=== PATIENT | male | born 1955 | race African-American/Black ===

== ENCOUNTER 2024-10-17 08:44 | Inpatient (IN) | payer MEDICARE, OTHER, SELFPAY ==
[2024-10-17] VITALS (91 sets, daily range): BP systolic 63–129; BP diastolic 48–77; PULSE 55–163; RESP 5–37; TEMP 32.4–36.8; O2SAT 94–100; BMI 21.4
--- NOTE | ~2024-10-17 | XR_ITS ---
Portable chest x-ray Comparison: 11/10/2024 Clinical History: Intubation Findings: Endotracheal tube, NG tube, and right-sided PICC line are in place. Lungs are clear, witho ut focal consolidation or pleural effusion. Cardiomediastinal silhouette is stable. Bones and soft t issues are unremarkable. Impression: Clear lungs. Support tubes, as above. Reviewed, dictated and finalized at location M. Impression: Clear lungs. Support tubes, as above.
--- NOTE | ~2024-10-17 | XR_ITS ---
Upright portable view of the abdomen Clinical history: NG tube placement Findings: NG tube in satisfactory position. Dilated small bowel loops are suspicious for small bowel obstruction. No abnormal mass lesion or calcification is seen. Osseous structures are intact. Impression: NG tube in satisfactory position. Probable small bowel obstruction. Reviewed, dictated and finalized at [facility]. Impression: NG tube in satisfactory position. Probable small bowel obstruction.
--- NOTE | ~2024-10-17 | CT_ITS ---
CT chest abdomen pelvis wo con Ordering provider: Hussein Newman MD History: . distention . Comparison: None. Technique: CT chest without IV contrast. CT abdomen and pelvis without oral and IV contrast. Radiatio n reduction technique utilized.The dose-length product was 673.12 mGy-cm. FINDINGS: The study is limited due to lack of IV contrast. CHEST: --VISUALIZED THORACIC INLET: Normal as visualized. Endotracheal tube is seen. Right central line with the tip in the right atrium. Nasogastric tube exte nding to the stomach. --MEDIASTINUM: Aorta/coronary arteries: Mild atheromatous disease. Heart/other: The heart is not enlarged. Lymph nodes: No mediastinal or hilar adenopathy. Small prevascular lymph nodes are noted --LUNGS: No pulmonary nodules or masses.Right pleural effusion with adjacent atelectasis versus pneum onia. No pneumothorax. --MUSCULOSKELETAL: Soft tissues: The superficial soft tissues are normal. Bones: Age appropriate degenerative changes of the spine. ABDOMEN/PELVIS: --MUSCULOSKELETAL: Bones: Age appropriate degenerative changes of the spine. Bilateral sacroiliitis. Bilateral hip osteo arthritic changes. Superficial soft tissues: Postoperative changes in the anterior abdominal wall midline. The superfici al soft tissues are normal. --UPPER ABDOMINAL ORGANS: Liver: Normal. Gallbladder: Cholelithiasis. Thickened wall of the gallbladder is seen which may indicate cholecystit is. Clinical correlation advised. Spleen: Normal. Stomach/duodenum: Slightly dilated second and third parts of the duodenum. Pancreas: Slightly atrophic Adrenals: Normal. Kidneys: Right renal cysts noted measuring 2.7 cm in the lower pole and 1.7 cm in the upper pole. Oth er smaller cysts are seen in the midpole.. --PELVIC ORGANS: The bladder shows Michelle's catheter. Slightly dense material is seen in the bladder w hich may be contrast or blood. Clinical correlation advised. No bladder stones. --BOWEL AND MESENTERY: Colon: No evidence of diverticulitis. Rectal tube is noted. Appendix is not demonstrated. Small Bowel: Slightly dilated small bowel loops seen in the left upper abdomen otherwise,. No obstruc tion. Peritoneum/mesentery: free air is seen anterior to the liver. Minimal fluid also seen lateral to the liver. Significant fluid is seen in the pelvis. Clinical correlation advised. Left abdominal drainage catheter is noted in the pelvis No mesenteric lymphadenopathy. --RETROPERITONEUM: Mild atheromatous disease of the abdominal aorta. No retroperitoneal lymphadenop athy. IMPRESSION: CHEST: 1. Right basilar atelectasis versus pneumonia with pleural effusion. 2. No other acute cardiopulmonary pathology. ABDOMEN/PELVIS: 1. Free air is seen anteriorly around the liver with minimal fluid. 2. Significant ascites in the pelvis. Drainage tube is seen in the left side of the pelvis. 3. Cholelithiasis with thickened wall of the gallbladder. Evaluation for cholecystitis advised. 4. Slightly dilated small bowel loops in the left upper abdomen which may indicate ileus follow-up a dvised. 5. Right renal cysts. Reviewed, dictated and finalized at location A. IMPRESSION: CHEST: 1. Right basilar atelectasis versus pneumonia with pleural effusion. 2. No other acute cardiopulmonary pathology. ABDOMEN/PELVIS: 1. Free air is seen anteriorly around the liver with minimal fluid. 2. Significant ascites in the pelvis. Drainage tube is seen in the left side o f the pelvis. 3. Cholelithiasis with thickened wall of the gallbladder. Evaluation for paul cystitis advised. 4. Slightly dilated small bowel loops in the left upper abdomen which may aquiles emma ileus follow-up advised. 5. Right renal cysts.
--- NOTE | ~2024-10-17 | XR_ITS ---
Exam: Abdomen 1V HISTORY: NG insertion COMPARISON: None. TECHNIQUE: Supine images of the lower chest and upper abdomen FINDINGS: Nasogastric tube extends into the left upper quadrant, presumably within the stomach. IMPRESSION: Nasogastric tube in good position and ready for immediate use. Reviewed, dictated and finalized at location A.
--- NOTE | ~2024-10-17 | CT_ITS ---
EXAMINATION: CT abdomen pelvis w con DATE: 11/26/2024 09:17 INDICATION: Reassess right intra-abdominal hematoma post drain placement TECHNIQUE: Computed tomography (CT) of the abdomen and pelvis was performed with 100 mL Omnipaque-350 intravenous contrast. Automated exposure control and iterative reconstruction technique were employe d. The dose-length product was 486.96 mGy-cm. COMPARISON: 11/19/2024 FINDINGS: Small posterior layering right pleural effusion with dependent atelectasis in the right lower lobe. C alcified right lower lobe nodule along with calcified right hilar lymph nodes consistent with old gra nulomatous disease. Left lung base clear. Heart size is normal. Atherosclerotic coronary artery calci fication. Aortic valve calcific location. No pericardial effusion. Again seen are postoperative her es with surgical clips about the gastroesophageal junction and suture line along the distal lesser cu rvature of the stomach. There is some residual oral contrast material within the dependent fundus of the stomach. Cholecystostomy tube and multiple gallstones within the gallbladder. Liver, spleen, panc reas and bilateral adrenal glands are normal. There are bilateral renal cysts more numerous and large r on the right, measuring up to 2.5 cm. Right abdominal percutaneous drainage catheter coiled within a residual 8.7 x 4.6 x 5.9 cm loculated fluid collection in the right abdomen. There are several dive rticula along the descending and sigmoid colon without adjacent focal increased inflammatory standing to suggest diverticulitis. Left abdominal percutaneous jejunostomy tube with distal tip within the j ejunum in the lateral left abdomen. No dilated bowel to suggest obstruction. Normal appendix. Bladder is normal. There is small amount of nonloculated ascites scattered throughout the abdomen and pelvis . There are multiple mildly prominent but still normal-sized lymph nodes in the abdomen which are lik mauricio reactive. Midline surgical wound. Moderate amount of body wall, mesenteric and retroperitoneal ed tha. Mild to moderate thoracic and lumbar spondylosis with bridging osteophytes at multiple levels co nsistent with diffuse idiopathic skeletal hyperostosis (DISH). IMPRESSION: 1. Right abdominal percutaneous drainage catheter within a persistent 8.7 x 4.6 x 5.9 cm loculated fl uid collection within the right abdomen which could represent hematoma or abscess. 2. Percutaneous cholecystostomy tube in expected position along with multiple gallstones within the g allbladder. 3. Small right pleural effusion with dependent atelectasis in the right lower lobe. 4. Diffuse body wall, mesenteric and retroperitoneal edema and small amount of ascites in the abdomen and pelvis. 5. Likely reactive abdominal lymphadenopathy. Reviewed, dictated and finalized at location A. IMPRESSION: 1. Right abdominal percutaneous drainage catheter within a persistent 8.7 x 4.6 x 5.9 cm loculated fluid collection within the right abdomen which could repre sent hematoma or abscess. 2. Percutaneous cholecystostomy tube in expected position along with multiple g allstones within the gallbladder. 3. Small right pleural effusion with dependent atelectasis in the right lower l obe. 4. Diffuse body wall, mesenteric and retroperitoneal edema and small amount of ascites in the abdomen and pelvis. 5. Likely reactive abdominal lymphadenopathy.
--- NOTE | ~2024-10-17 | XR_ITS ---
XR abdomen gastric tube rechec INDICATION: Evaluate NG tube position. TECHNIQUE: Limited KUB perform for evaluating NG tube . COMPARISON: No prior studies for comparison. FINDINGS: NG tube tip in the duodenum. Visualized bowel gas pattern is unremarkable.There is residua l contrast in the bowel. Shallow inspiration. IMPRESSION: 1: NG tube tip in the stomach. Reviewed, dictated and finalized at location B.
--- NOTE | ~2024-10-17 | US_ITS ---
Limited ABDOMINAL ULTRASOUND (Doppler ultrasound interrogation techniques used as needed for this exa m.) Ordering provider: Chapis Lim PA-C History: . cholelithiasis . Comparison: None. FINDINGS: PANCREAS: Not visualized. PORTAL VEIN: Hepatopedal flow demonstrated. LIVER: Normal size and echotexture. Measures 14.6 cm. No focal hepatic lesions or perihepatic fluid c ollections are identified. BILIARY DUCTS: No intra or extrahepatic biliary dilation. Common bile duct measures 3.7 mm in diamete r which is normal for patient's age. Echoes are seen in the CBD. GALLBLADDER: Stones and sludge are noted.. Wall thickness is 5.5 mm with increased vascularity. Negat sujatha sonographic Menendez's sign. FREE FLUID: None visualized within the upper abdomen. Minimal fluid in the right upper quadrant with right pleural effusion. IMPRESSION: Highly suggestive cholecystitis with cholelithiasis and gallbladder sludge. Clinical correlation advi sed. Minimal ascites. Minimal right pleural effusion. Reviewed, dictated and finalized at location A. IMPRESSION: Highly suggestive cholecystitis with cholelithiasis and gallbladder sludge. Cli nical correlation advised. Minimal ascites. Minimal right pleural effusion.
--- NOTE | ~2024-10-17 | XR_ITS ---
Portable chest x-ray Comparison: 11/14/2024 Clinical History: Fever Findings: Right-sided PICC line in satisfactory position. Lungs are clear, without focal consolidati on or pleural effusion. Cardiomediastinal silhouette is stable. Bones and soft tissues are unremarka ble. Impression: Clear lungs. Right-sided PICC line in place. Reviewed, dictated and finalized at location M. Impression: Clear lungs. Right-sided PICC line in place.
--- NOTE | ~2024-10-17 | XR_ITS ---
EXAMINATION: XR lumbar puncture diagnostic DATE: 10/31/2024 17:22 INDICATION: Encephalitis TECHNIQUE: The procedure including the risks and benefits was discussed with the patient's daughter w ho understood the risks and agreed to proceed. A timeout was performed to verify the patient's nam e, date of , and procedure to be performed. The skin overlying the L2-L3 level was prepped and draped in usual sterile fashion. Subcutaneous 1% lidocaine was used for local anesthesia. A 22 gaug e spinal needle was advanced under fluoroscopic guidance. The needle was removed and the entry site w as cleaned and dressed. There were no immediate complications. A total of 4 fluoroscopic images and 2 crosstable lateral radiographs were obtained. The amount of fluoroscopy time used during this proce dure was 0.8 minutes. Patient was returned to the floor. There were no immediate complications. FINDINGS: Real-time fluoroscopy demonstrates the needle at the L2-L3 level. Opening pressure was 23 c m water. (Normal range is variably defined as 6-20 cm water and up to 25 cm water in obese patients. Pressure >25 cm water is one of the modified Dandy criteria for idiopathic intracranial hypertension) . 9 mL of clear, colorless fluid was collected in 4 tubes. IMPRESSION: 1. Successful fluoro-guided lumbar puncture with mildly elevated opening pressure of 23 cm water. Reviewed, dictated and finalized at location A. IMPRESSION: 1. Successful fluoro-guided lumbar puncture with mildly elevated opening pressu re of 23 cm water.
--- NOTE | ~2024-10-17 | XR_ITS ---
XR chest PICC line Ordering provider: Hussein Newman MD History: 69 years Male with . PICC line . Comparison: November 08, 2024 FINDINGS: MEDIASTINUM: The cardiac silhouette is not enlarged. Endotracheal tube is 3 cm above the tiffany. Naso gastric tube is seen with the tip in the fundus. Right PICC line is seen with the tip overlying super ior vena cava. LUNGS: No infiltrates, effusions or pneumothorax. OTHER: No free air under the diaphragm. Degenerative the spine. IMPRESSION: No acute cardiopulmonary pathology. Reviewed, dictated and finalized at location A.
--- NOTE | ~2024-10-17 | CT_ITS ---
History: Altered mental status, encephalopathy suspected clinically PROCEDURE: CT head without contrast. COMPARISON: 10/17/2024 TECHNIQUE: Axial imaging of the head performed from the skull base to the vertex without IV contrast. Sagittal a nd coronal reformations obtained. Examination is limited by motion artifact. DLP: 832 mGy-cm FINDINGS: The ventricles remain enlarged. The dilatation of the ventricles is proportional to the degree of sulcal prominence, not uncommon in the senescent brain. Decreased attenuation is redemonstrated within the periventricular white matter, likely secondary to microvascular ischemic disease, in a patient of this age. There is no mass, mass effect or midline shift. There is no abnormal extra-axial fluid collection or intracranial hemorrhage. Redemonstration of mucoperiosteal thickening of the bilateral ethmoid sinuses with near complete opac ification of the right maxillary sinus. An air-fluid level is detected within the right sphenoid sinus. The left sphenoid sinus, and left maxillary sinuses are clear The mastoid air cells are well aerated. No acute displaced fractures within the overlying cranium. Impression: No acute intracranial hemorrhage or suspicious mass effect. Inflammatory sinus disease. Reviewed, dictated and finalized at location A. Impression: No acute intracranial hemorrhage or suspicious mass effect. Inflammatory sinus disease.
--- NOTE | ~2024-10-17 | XR_ITS ---
EXAMINATION: XR UGI water soluble wo kub DATE: 11/09/2024 13:38 INDICATION: Evaluate for percutaneous jejunostomy tube leakage TECHNIQUE: 5 fluoroscopic images of the small bowel were obtained during injection of 40 mL of water- soluble contrast through the patient's left lower quadrant percutaneous jejunostomy tube. A 6 image w as obtained following flushing of the tube with 20 mL of water. Fluoroscopy exposure time was 0.3 min utes. Total DAP was 1.199mGycm^2. COMPARISON: None. FINDINGS: Contrast extends through the jejunostomy tube into the jejunum in the left lower quadrant w hich is normal in caliber with normal mucosal fold pattern. There is normal movement of the contrast within the jejunum. No extraluminal contrast extravasation. IMPRESSION: 1. Left lower quadrant jejunostomy tube in expected position with injected contrast opacifying the no rmal-appearing jejunum with no extraluminal leakage of contrast. Reviewed, dictated and finalized at location A. IMPRESSION: 1. Left lower quadrant jejunostomy tube in expected position with injected cont rast opacifying the normal-appearing jejunum with no extraluminal leakage of co ntrast.
--- NOTE | ~2024-10-17 | US_ITS ---
EXAM: RENAL ULTRASOUND HISTORY: ALEJANDRO COMPARISON: None. Reference is made to a CT examination of the chest abdomen and pelvis with intraven ous contrast performed 2 days earlier, upon arrival into the ER. FINDINGS: RIGHT KIDNEY: 11.8 x 5.9 x 5.0 cm. Multiple avascular anechoic foci are identified within the right kidney. The largest is exophytic from the lower pole measuring 3.2 x 2.8 x 3.1 cm, consistent with a simple c yst for which no further follow-up is needed. The remainder of the parenchyma of the right kidney is otherwise unremarkable in echogenicity. No cortical thinning or additional signs of baseline medical renal disease. No hydronephrosis or renal calculi. LEFT KIDNEY: 11.3 x 6.8 x 5.4 cm No hydronephrosis or renal calculi. The parenchyma of the left kidney is unremarkable in echogenicity. No cortical thinning or additional signs of baseline medical renal disease. BLADDER: Decompressed with a Michelle catheter, limiting its evaluation. IMPRESSION: No hydronephrosis or renal calculi. No parenchymal findings to suggest the presence of medical renal disease. Simple cysts within the right kidney, for which no further follow-up is needed. Reviewed, dictated and finalized at location A.
--- NOTE | ~2024-10-17 | XR_ITS ---
XR chest 1V portable Ordering provider: Kylie Beebe MD History: 69 years Male with . elevated temp . Comparison: November 19, 2024 FINDINGS: MEDIASTINUM: The cardiac silhouette is not enlarged. Right PICC line with the tip in the right atrium. LUNGS: No infiltrates, effusions or pneumothorax. OTHER: No free air under the diaphragm. Biliary drainage tube is seen in the right upper quadrant mos t likely in the gallbladder. IMPRESSION: No acute cardiopulmonary pathology. Reviewed, dictated and finalized at location A.
--- NOTE | ~2024-10-17 | XR_ITS ---
Portable chest x-ray Comparison: 11/11/2024 Clinical History: Intubation Findings: NG tube and right-sided PICC line are in place. There are low lung volumes with probable c entral vascular crowding versus minimal central congestive change. Lungs are otherwise clear Cardiom ediastinal silhouette is stable. Bones and soft tissues are unremarkable. Impression: Low lung volumes with probable vascular crowding centrally versus minimal central congestive change. Support tubes, as above. Reviewed, dictated and finalized at location M. Impression: Low lung volumes with probable vascular crowding centrally versus minimal centr al congestive change. Support tubes, as above.
--- NOTE | ~2024-10-17 | CT_ITS ---
EXAMINATION: CT facial bones wo con DATE: 10/19/2024 09:06 INDICATION: Left facial swelling TECHNIQUE: Computed tomography (CT) of the facial bones and maxillofacial region was performed withou t intravenous contrast. Coronal reconstructions were obtained. Automated exposure control and iterati ve reconstruction technique were employed. The dose-length product was 414.58 mGy-cm. COMPARISON: None. FINDINGS: Orbits are normal. Mastoid air cells and middle ear cavities are clear. Near complete opacification o f the right maxillary sinus and mucosal thickening and partial opacification of multiple bilateral et hmoid air cells as well as the right frontoethmoidal recess. Mild mucosal thickening and small amount of dependently layering mucus in the bilateral sphenoid sinuses. Bones are unremarkable with no acut e fractures or cortical erosions. There is dental and periodontal disease with periapical lucencies s urrounding the posterior most remaining right maxillary molar. No evident abscess. No pathologically enlarged cervical lymphadenopathy. Mild to moderate lower cervical spondylosis. Fusion across the ri ght C2-C3 facet joint. IMPRESSION: 1. Extensive sinus disease with near complete opacification of the right maxillary sinus and dependen tly layering fluid in the bilateral sphenoid sinuses. Correlate clinically for acute sinusitis. 2. Dental and periodontal disease with periapical lucency surrounding the posterior most remaining ri ght maxillary molar. Reviewed, dictated and finalized at location A. IMPRESSION: 1. Extensive sinus disease with near complete opacification of the right maxill [place] sinus and dependently layering fluid in the bilateral sphenoid sinuses. Cor relate clinically for acute sinusitis. 2. Dental and periodontal disease with periapical lucency surrounding the poste rior most remaining right maxillary molar.
--- NOTE | ~2024-10-17 | XR_ITS ---
Portable chest x-ray Comparison: 10/25/2024 Clinical History: Shortness of breath Findings: NG tube in satisfactory position. Lungs are clear, without focal consolidation or pleural effusion. Cardiomediastinal silhouette is stable. Bones and soft tissues are unremarkable. Impression: Clear lungs. NG tube in place. Reviewed, dictated and finalized at location . Impression: Clear lungs. NG tube in place.
--- NOTE | ~2024-10-17 | XR_ITS ---
Portable chest x-ray Comparison: 11/12/2024 Clinical History: Leukocytosis, hypotension Findings: NG tube and right-sided PICC line are in satisfactory position. There is left basilar hazy airspace disease. Cardiomediastinal silhouette is stable. Bones and soft tissues are unremarkable. Impression: Hazy left basilar airspace disease could reflect left lower lobe pneumonia. NG tube and right-sided PICC line in place. Reviewed, dictated and finalized at location M. Impression: Hazy left basilar airspace disease could reflect left lower lobe pneumonia. NG tube and right-sided PICC line in place.
--- NOTE | ~2024-10-17 | CT_ITS ---
CLINICAL INDICATION: Fever, persistent leukocytosis. COMPARISON: 11/08/2024. TECHNIQUE: Multiple contiguous axial images of the abdomen and pelvis were performed following the ad ministration of with 100 mL Omnipaque-350 intravenous contrast The dose-length product (DLP) was 677.37 mGy-cm. Automated exposure control and iterative reconstruction technique were employed. FINDINGS/OBSERVATIONS: Visualized lower thorax: Redemonstration of a small right-sided pleural effusion with adjacent compressive atelectasis, minima lly increased from previous examination, likely reactive. The remainder of the bilateral lung bases are clear. The heart is borderline enlarged, with a small pericardial effusion. Liver: The liver demonstrates homogeneous enhancement and is not enlarged. Perihepatic free fluid identified without rim enhancement demonstrating simple fluid attenuation valu es. Gallbladder and biliary system: The gallbladder opacifies with injected contrast. No discrete opacification of the cystic duct is appreciated. The contrast does not extend into the common bile duct (with resistance to injection) suggesting pers istent cystic duct obstruction. Pancreas: Trace fatty atrophy of the pancreas. Spleen: The spleen enhances homogeneously and is not enlarged. Kidneys: Scattered rounded foci of decreased attenuation within the bilateral kidneys, unchanged from prior, consistent with simple cysts. The remainder of the bilateral kidneys otherwise enhance symmetrically without hydronephrosis or michelle l calculi. Adrenal glands: Unremarkable. Gastrointestinal tract: Oral contrast within the gastric remnant. Densely calcified staple line consistent with patient's prior partial gastric resection with reconstr uction. Percutaneous jejunostomy in excellent position. Rectal tube in position. Rim-enhancing fluid collection of dense attenuation within the right mid to upper abdomen measuring 4 .1 x 8.5 x 6.9 cm. This collection is interspersed with multiple loops of small bowel with trace mura l thickening and hyperemia. Free fluid within the abdomen to the left of midline is also noted, without rim enhancement suggestin g simple ascites. The small bowel of the right lower quadrant is also minimally distended, and hyperemic. Free fluid within the pelvis, denser than one would expect for simple fluid with attenuation values o f 20. Appendix: The appendix is not definitively visualized. However, no pericecal inflammatory change is identified suggest the presence of acute appendicitis. Vasculature: Replaced right hepatic artery is incidentally noted. Calcified atherosclerotic disease within the abdominal aorta. Lymph nodes: No pathologically enlarged or morphologically suspicious lymph nodes within the retroperitoneum or at the root of the mesentery. Scattered nonpathologically enlarged lymph nodes within the mesentery, a nonspecific finding. Pelvic structures: The bladder is decompressed with a Michelle catheter, limiting its evaluation. The prostate gland is not enlarged. Body wall and musculoskeletal: Age-appropriate degenerative disease within the lower thoracic and lumbosacral spines. IMPRESSION: Rim-enhancing fluid collection within the right mid to upper abdomen measuring 8.5 cm in greatest dim ension, for which intra-abdominal abscess is suspected. Percutaneous cholecystostomy catheter in good position with persistent cystic duct obstruction. Trace intra-abdominal ascites within the left mid to upper abdomen and within the pelvis. Reviewed, dictated and finalized at location A. IMPRESSION: Rim-enhancing fluid collection within the right mid to upper abdomen measuring 8.5 cm in greatest dimension, for which intra-abdominal abscess is suspected. Percutaneous cholecystostomy catheter in good position with persistent cystic d uct obstruction. Trace intra-abdominal ascites within the left mid to upper abdomen and within t he pelvis.
--- NOTE | ~2024-10-17 | XR_ITS ---
CHEST RADIOGRAPH CLINICAL HISTORY: altered mental status . COMPARISON: None available TECHNIQUE: Single portable view of the chest. FINDINGS The cardiomediastinal silhouette is unremarkable. The lungs are clear. Multiple loops of prominent small bowel identified within the upper abdomen, to the left of midline. IMPRESSION: No focal infiltrate or effusion. Reviewed, dictated and finalized at location A.
--- NOTE | ~2024-10-17 | XR_ITS ---
MODIFIED ESOPHAGRAM HISTORY: Impaired swallowing TECHNIQUE: Modified barium esophagram was performed on 11/06/2024. I administered fluoroscopy and perf ormed the exam with speech pathologist. Patient was seated for lateral fluoroscopic imaging for marylou stion of thin liquids, pudding, solids and quantified amounts, followed by thin liquids in uncontroll ed amounts. This was recorded on tape. 2 fluoroscopic spot images were also recorded. The DAP for thi s procedure was 0.785 Gycm2. The amount of fluoroscopy time used during this procedure was 1.1 minute s. FINDINGS: Partially visualized nasogastric tube in expected position. Oral stage: All contents either leaked or were actively expelled from the mouth. Pharyngeal stage: Unable to be assessed. Cervical/esophageal stage: Unable to be assessed. IMPRESSION: Nondiagnostic study as all contents either leaked or were actively expelled from the mout h. No swallows were able to be evaluated. Please correlate with speech pathologist findings and spec [facility] feeding recommendations. Reviewed, dictated and finalized at location A. IMPRESSION: Nondiagnostic study as all contents either leaked or were actively expelled from the mouth. No swallows were able to be evaluated. Please correla te with speech pathologist findings and specific feeding recommendations.
--- NOTE | ~2024-10-17 | CT_ITS ---
EXAMINATION: CT guide absc cath placement DATE: 11/20/2024 10:54 INDICATION: Persistent leukocytosis TECHNIQUE: After informed consent was obtained the patient was taken to the CT suite and placed in th e supine position on the CT table. The skin overlying the right upper quadrant was prepped and draped in usual sterile fashion. Anesthe tic was administered with 1% lidocaine subcutaneously. An 18 gauge trochar needle was inserted into t he right inferior lateral quadrant of the mid abdomen with CT guidance. The needle was exchanged over a wire for an 8 [place] dilator and then for a 10 [place] pigtail catheter drainage. The catheter was stitched to the skin, attached to accordion drainage and a sterile dressing was applied. The dose-length product was 552.92 mGy-cm. The patient tolerated the procedure without difficulty, and was returned to his room in unchanged con dition. During the procedure, the patient received 0.5 mg of Versed. FINDINGS: CT images demonstrate the catheter within the fluid collection. 10 mL of foul-smelling nonc lotting dark red fluid was aspirated for testing, likely a infected hematoma. IMPRESSION: Technically successful CT-guided 10 [place] drainage catheter placement within a (likely)perioperative infected hematoma, as detailed above. Specimen was sent for the culture evaluation. The catheter will need to be forwarded flushed (towards the patient and towards the drainage catheter ) twice daily with 10 cc of normal saline. Reviewed, dictated and finalized at location A. IMPRESSION: Technically successful CT-guided 10 [place] drainage catheter placement within a (likely)perioperative infected hematoma, as detailed above. Specimen was sent for the culture evaluation. The catheter will need to be forwarded flushed (towards the patient and towards the drainage catheter) twice daily with 10 cc of normal saline.
--- NOTE | ~2024-10-17 | CT_ITS ---
EXAMINATION: CT abdomen pelvis w con DATE: 12/05/2024 18:26 INDICATION: abd abscess/hematoma TECHNIQUE: Computed tomography (CT) of the abdomen and pelvis was performed with 100 mL Omnipaque-350 intravenous contrast. Automated exposure control and iterative reconstruction technique were employe d. The dose-length product was 541.95 mGy-cm. COMPARISON: 11/26/2024. FINDINGS: Lower thorax: Right upper extremity PICC terminating in the inferior right atrium. Coronary artery ca lcifications. Trace right pleural fluid. Liver: Normal. Biliary/Gallbladder: Gallbladder is decompressed by a cholecystostomy tube. Persistent gallbladder wa ll thickening. Hyperdense intraluminal material likely representing a combination of sludge, stones, and contrast. No bile duct dilation. Pancreas: No mass or duct dilation. Spleen: Normal. Adrenals:No mass. Kidneys: No suspicious mass, obstructing stone, or hydronephrosis. Multiple simple right renal cysts. Bilateral subcentimeter hypodensities, too small to characterize but most likely represent cysts. GI tract: Prior gastric surgery. Short segment wall thickening at the hepatic flexure, with surroundi ng inflammatory changes, several adjacent gas bubbles that appear extraluminal, and loss of the fat p krystle between the gallbladder and this portion of the colon. No small or large bowel dilation. Normal appendix. Diverticulosis. Mesentery/Peritoneum: Interval right abdominal drain removal. Increased organization and wall enhance ment of the right abdominal fluid collection, decreased overall in size now measuring 3.7 cm AP by 7. 2 cm transverse by 5.2 cm CC. Left abdominal jejunostomy tube. Focal area of mildly inflamed, somewh at localized appearing mesenteric fat that may represent surgical packing or fat necrosis. Retroperitoneum: No mass. Atherosclerotic calcifications of intra-abdominal arterial vessels. Pelvis: Pelvic organs are within normal limits. Soft Tissues: Midline abdominal incision. Injection site in the right lower quadrant. Bones: No acute osseous finding. IMPRESSION: Trace right pleural effusion. Right upper extremity PICC terminates in the inferior right atrium, consider retraction. Segmental colonic wall thickening, inflammatory change, and possible extraluminal gas at the hepatic flexure, may represent diverticulitis with microperforation, phlegmon or early abscess associated wit h the gallbladder process, or cholecystocolonic fistula development. Increased organization and decreased overall size of the right abdominal abscess/hematoma. Reviewed, dictated and finalized at location K. IMPRESSION: Trace right pleural effusion. Right upper extremity PICC terminates in the inferior right atrium, consider re traction. Segmental colonic wall thickening, inflammatory change, and possible extralumin al gas at the hepatic flexure, may represent diverticulitis with microperforati on, phlegmon or early abscess associated with the gallbladder process, or paul cystocolonic fistula development. Increased organization and decreased overall size of the right abdominal absces s/hematoma.
--- NOTE | ~2024-10-17 | CT_ITS ---
EXAMINATION: CT brain wo con DATE: 10/17/2024 10:43 INDICATION: Altered mental status TECHNIQUE: Computed tomography (CT) of the head was performed without intravenous contrast. Sagittal and coronal reconstructions were performed. The mA was adjusted according to patient size. Iterative reconstruction technique was employed. The dose-length product was 529.67 mGy-cm. COMPARISON: None FINDINGS: No acute intracranial hemorrhage, acute infarction or abnormal extra axial fluid collection. There is mild to moderate scattered white matter hypoattenuation consistent with chronic small vessel ischemi c disease. Symmetric prominence of the sulci consistent with mild to moderate age-appropriate diffuse cerebral volume loss. Ventricles are normal and symmetric. No mass/mass effect. Mucosal thickening i n the right maxillary and sphenoid sinuses. The orbits and mastoid air cells are normal. IMPRESSION: 1. No acute intracranial process. 2. Age-related changes including mild to moderate diffuse volume loss and mild to moderate scattered white matter hypoattenuation consistent with chronic small vessel ischemic disease. Reviewed, dictated and finalized at location A. IMPRESSION: 1. No acute intracranial process. 2. Age-related changes including mild to moderate diffuse volume loss and mild to moderate scattered white matter hypoattenuation consistent with chronic smal l vessel ischemic disease.
--- NOTE | ~2024-10-17 | XR_ITS ---
EXAMINATION: XR UGI water soluble wo kub DATE: 11/02/2024 12:34 INDICATION: Evaluate residual stomach TECHNIQUE: Water-soluble contrast was administered through the patient's existing nasogastric tube. A total of 23 fluoroscopic images of the stomach, and proximal small bowel were obtained. Fluoroscopy exposure time was 0.9 minutes. Total DAP was 8.24 Gycm^2 COMPARISON: None. FINDINGS: Breaker Engineer image demonstrates 4 surgical clips in the region of the thoracic hiatus. Nasogastric tube tip with proximal side-port in the body the stomach and distal tip extending across the midline to the ty pical region of the gastric pylorus. Subsequent images demonstrate progressive contrast desiccation o f the stomach and small bowel. The proximal two thirds of the stomach appear normal. There is been pr ior distal gastric resection with gastroduodenal anastomosis. The distal tip of the nasogastric tube appears to extend beyond the anastomosis. Contrast extends across the anastomosis opacifying the norm al duodenum and proximal jejunum. No evident extraluminal contrast leak. There is minimal gastroesoph ageal reflux into the distalmost esophagus. IMPRESSION: 1. Partial distal gastrectomy with gastroduodenal anastomosis. Nasogastric tube tip extends beyond th e anastomosis with proximal side-port in the remaining body of the stomach. Reviewed, dictated and finalized at location A. IMPRESSION: 1. Partial distal gastrectomy with gastroduodenal anastomosis. Nasogastric tube tip extends beyond the anastomosis with proximal side-port in the remaining hari dy of the stomach.
--- NOTE | ~2024-10-17 | CT_ITS ---
CT head without contrast Indication: Altered mental status COMPARISON: 11/08/2024 Technique: Serial scans were obtained through the brain without the administration of contrast. Dose reduction technique was used on this scan by utilizing automated exposure control and iterative recon struction technique. The dose-length product (DLP) was 1362.00 mGy-cm. Findings: There is no evidence of intracranial hemorrhage, mass lesion, or acute infarct. The ventri cles and subarachnoid spaces are dilated, consistent with mild atrophy. Low attenuation regions are seen within the periventricular white matter bilaterally, likely representing changes from chronic mi crovascular ischemic disease. There is no evidence of edema, mass effect or midline shift. The visu alized paranasal sinuses and mastoid air cells are clear. Impression: No intracranial hemorrhage, mass, or acute infarct. Atrophy and chronic white matter changes, as above. Reviewed, dictated and finalized at [facility]. Impression: No intracranial hemorrhage, mass, or acute infarct. Atrophy and chronic white matter changes, as above.
--- NOTE | ~2024-10-17 | XR_ITS ---
XR abdomen gastric tube insert Ordering provider: Mally Salguero APRN History: . ng replaced . Comparison: None. FINDINGS/impression: Nasogastric tube is seen with the tip in the body of the stomach. Reviewed, dictated and finalized at location A.
--- NOTE | ~2024-10-17 | US_ITS ---
EXAMINATION: US perc cholecystostomy w imag DATE: 11/15/2024 15:46 INDICATION: Acute cholecystitis TECHNIQUE: The procedure including the risks and benefits was discussed with the patient. Risks discu ssed included bleeding including hemorrhage and bile peritonitis. Oral and written consent were obtai adela. The patient was confirmed to be receiving appropriate antibiotic coverage. The skin overlying t he liver and gallbladder was prepped and draped in usual sterile fashion. An anterior intercostal everton suero was chosen extending through a small window of fat situated between the inferior margin of the liver and the bowel. Anesthetic was administered with 1% lidocaine subcutaneously. An 8.5 Fr cathete r was inserted through liver parenchyma into the gallbladder by trocar technique. The metal stiffener and trocar needle were removed, and the pigtail tip was locked. Bile was aspirated and sent for cult ure. The catheter was stitched to the skin with suture. There were no immediate complications. FINDINGS: The gallbladder is dilated with wall thickening and stones and sludge, consistent with acut e cholecystitis. Ultrasound images demonstrate the catheter within the gallbladder. 13 mL bile was as pirated. Final images show the formed pigtail catheter tip in the gallbladder. IMPRESSION: 1. Successful ultrasound-guided cholecystostomy tube placement. 2. 13 mL bile was sent for aerobic, anaerobic, and fungal cultures. 3. The catheter will be managed by Dr. Ortiz. A catheter cholangiogram may be performed not less than 48 hours after tube placement if clinically indicated to assess cystic duct patency. If cholecystect manjeet is not eventually performed and the infectious episode has resolved, the tube may be removed over a guidewire, preferably not less than 3 weeks after placement to allow time for a mature catheter tr act to form to prevent bile leakage and peritonitis. Reviewed, dictated and finalized at location A. IMPRESSION: 1. Successful ultrasound-guided cholecystostomy tube placement. 2. 13 mL bile was sent for aerobic, anaerobic, and fungal cultures. 3. The catheter will be managed by Dr. Ortiz. A catheter cholangiogram may be pe rformed not less than 48 hours after tube placement if clinically indicated to assess cystic duct patency. If cholecystectomy is not eventually performed and the infectious episode has resolved, the tube may be removed over a guidewire, preferably not less than 3 weeks after placement to allow time for a mature ca theter tract to form to prevent bile leakage and peritonitis.
--- NOTE | ~2024-10-17 | XR_ITS ---
EXAMINATION: XR chest 1V portable DATE: 11/10/2024 05:38 INDICATION: Intubation TECHNIQUE: frontal view of the chest was obtained. COMPARISON: Chest radiograph dated 11/09/2024 at 5:18 AM FINDINGS: Endotracheal tube tip 2.1 cm above the tiffany. The cardiomediastinal silhouette is normal. Visualized bones and soft tissues are unremarkable. Nasogastric tube tip and some residual oral contrast in the stomach. Lung volumes remain small. No focal airspace opacities, pulmonary edema, pleural effusion or pneumoth orax. Heart size is normal. Surgical clips in the epigastric region. IMPRESSION: 1. Small lung volumes with no other acute cardiopulmonary disease. Reviewed, dictated and finalized at location A.
--- NOTE | ~2024-10-17 | XR_ITS ---
Portable chest x-ray Comparison: 10/29/2024 Clinical History: Fluid in lungs Findings: NG tube in satisfactory position. Possible minimal right pleural effusion. Left lung clear . Cardiomediastinal silhouette is stable. Bones and soft tissues are unremarkable. Impression: NG tube in place. Possible minimal right pleural effusion. Reviewed, dictated and finalized at location . Impression: NG tube in place. Possible minimal right pleural effusion.
--- NOTE | ~2024-10-17 | CT_ITS ---
CT brain wo con Ordering provider: Nancy Salomon DO History: 69 years Male with . change in mental status . Comparison: None. Technique: CT of the head without contrast. Radiation reduction technique utilized.The dose-length pr oduct was 605.33 mGy-cm. FINDINGS: BRAIN PARENCHYMA AND CSF SPACES: Mild leukoaraiosis and diffuse cortical atrophy. Mild atheromatous d isease. No midline shift, mass effect or hemorrhage. The brain parenchyma and CSF spaces are otherwi se normal. VISUALIZED PARANASAL SINUSES: Right maxillary sinus disease. Well aerated. MASTOIDS: Well aerated. BONES: The bones appear intact. SOFT TISSUES: Visualized nasopharynx is normal. Superficial soft tissues are normal. IMPRESSION: No acute intracranial findings. Reviewed, dictated and finalized at location A.
--- NOTE | ~2024-10-17 | XR_ITS ---
Portable chest x-ray Comparison: 11/08/2024 Clinical History: Tube placement Findings: Multiple radiographs demonstrate endotracheal tube in satisfactory position. NG tube in sa tisfactory position. Lungs are clear, without focal consolidation or pleural effusion. No pneumothora x. Cardiomediastinal silhouette is stable. Bones and soft tissues are unremarkable. Impression: Tubes in satisfactory position, as above. Clear lungs. Reviewed, dictated and finalized at location M. Impression: Tubes in satisfactory position, as above. Clear lungs.
--- NOTE | ~2024-10-17 | MR_ITS ---
EXAMINATION: MR brain/brain stem wo con DATE: 10/24/2024 INDICATION: Altered mental status. Fall. TECHNIQUE: Magnetic resonance imaging (MRI) of the brain and brainstem was performed without intraven ous contrast. Sequences included sagittal and axial T1-weighted SE, axial diffusion-weighted FS SE, a xial T2*-weighted GRE, axial T2-weighted FLAIR, and axial T2-weighted FSE. Apparent diffusion coeffic ient (ADC) maps were created. COMPARISON: CT dated 10/19/2024 FINDINGS: There are no areas of restricted diffusion to suggest acute infarction. No intracranial hemorrhage or abnormal intracranial mass lesion. There are scattered areas of nonspecific increased T2-weighted si gnal intensity in the cerebral white matter, predominantly involving the deep and periventricular whi te matter. There are no intraparenchymal signal abnormalities seen on the other pulse sequences. Symm etric prominence of the sulci consistent with mild age-appropriate diffuse cerebral volume loss. The ventricles are symmetric and normal in size. There are no abnormal extra-axial fluid collections. Fl ow voids are seen in the cerebral arteries on the T2-weighted sequences consistent with their expecte d patency. Moderate mucosal thickening in the right ethmoid, sphenoid and maxillary sinuses. There is additional fluid/mucus nearly filling the right maxillary sinus and layering dependently in the righ t sphenoid sinus suggesting acute sinusitis. Trace amount of fluid in the dependent left sphenoid sin us. Visualized orbits and soft tissues are unremarkable. IMPRESSION: 1. Age-related changes the brain. No acute intracranial process. 2. Prominent sinus disease with fluid nearly filling the right maxillary sinus and layering dependent ly in the bilateral sphenoid sinuses. Correlate clinically for acute sinusitis. Reviewed, dictated and finalized at location A. IMPRESSION: 1. Age-related changes the brain. No acute intracranial process. 2. Prominent sinus disease with fluid nearly filling the right maxillary sinus and layering dependently in the bilateral sphenoid sinuses. Correlate clinicall y for acute sinusitis.
--- NOTE | ~2024-10-17 | XR_ITS ---
XR abdomen gastric tube rechec Ordering provider: Tevin Dickerson MD History: . verify NG tube placement . Comparison: None. FINDINGS/impression: Nasogastric tube is seen with the tip in the fourth part of the duodenum. Reviewed, dictated and finalized at location A.
--- NOTE | ~2024-10-17 | XR_ITS ---
Portable chest x-ray Comparison: 11/08/2024 Clinical History: Intubation Findings: Endotracheal tube and NG tube are in satisfactory positions. Lungs are clear, without foca l consolidation or pleural effusion. Cardiomediastinal silhouette is stable. Bones and soft tissues are unremarkable. Impression: Clear lungs. Support tubes, as above. Reviewed, dictated and finalized at location . Impression: Clear lungs. Support tubes, as above.
--- NOTE | ~2024-10-17 | XR_ITS ---
XR chest 1V portable 10/25/2024 13:23 Indication: Congestion Procedure: AP portable chest Comparison: 10/17/2024 Findings: NG tube in the stomach. Heart size normal. Left lung clear. Right basilar airspace disease may represent atelectasis or pneumonia. No acute osseous abnormality. Elevated right diaphragm. Impression: 1: Right basilar airspace disease, atelectasis versus pneumonia. Elevated right diaphragm. Reviewed, dictated and finalized at location A. Impression: 1: Right basilar airspace disease, atelectasis versus pneumonia. Elevated right diaphragm.
--- NOTE | ~2024-10-17 | CT_ITS ---
CLINICAL INDICATION: Altered mental status (found down) COMPARISON: None. TECHNIQUE: Multiple contiguous axial images of the chest, abdomen and pelvis were performed without t he administration of intravenous contrast The dose-length product (DLP) was 490.80 mGy-cm. Automated exposure control and iterative reconstruction technique were employed. FINDINGS/OBSERVATIONS: LUNG: The lungs are clear. No evidence of contusion, pneumothorax or hemothorax. MEDIASTINUM: Limited evaluation without intravenous contrast. HEART: The heart is of normal size, without pericardial effusion. SOFT TISSUES OF THE CHEST: Unremarkable. Liver: The liver demonstrates homogeneous attenuation and is not enlarged measuring cm in longitudinal dimen dona. No perihepatic fluid to suggest acute traumatic injury. Gallbladder and biliary system: The gallbladder is only minimally distended, with layering stones and is otherwise unremarkable. Pancreas: Limited evaluation of the pancreas secondary to the lack of intravenous contrast. No peripancreatic fluid is identified to suggest acute traumatic injury. Spleen: The spleen demonstrates homogeneous attenuation and is not enlarged. No perisplenic fluid is identified to suggest acute traumatic injury. Kidneys: Rounded foci of fluid attenuation within the upper and lower poles of the right kidney, for which cysts are suspected. The remainder of the bilateral kidneys are otherwise unremarkable, without hydronephrosis or renal ca lculi. No perirenal fluid is identified to suggest acute traumatic injury. Adrenal glands: Unremarkable. Gastrointestinal tract: Fecal stasis within the rectum. Fluid and air distending the small and large bowel . No free fluid within the abdomen or pelvis. Vasculature: Densely calcified atherosclerotic disease. Lymph nodes: Limited evaluation without intravenous contrast. Pelvic structures: The bladder is markedly distended, despite Michelle catheter. Air fluid level is also noted, likely secondary to intervention. The prostate is minimally enlarged, and otherwise unremarkable. Bulky calcification visualized within the left testicle. Body wall and musculoskeletal: No umbilical hernia. Age-appropriate degenerative disease within the thoracic and lumbosacral spines. There are bridging endplate osteophytes at multiple levels in the thoracic and lumbar spines, consist ent with diffuse idiopathic skeletal hyperostosis (DISH). No acute compression fracture within the thoracic or lumbar spine. No acute rib fractures. No acute sternal fracture. Productive SI joint arthritic change. IMPRESSION: No hollow or solid organ injury. No acute fractures. Reviewed, dictated and finalized at location A.
--- NOTE | ~2024-10-17 | XR_ITS ---
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 Fluoroscopy exposure time was minutes. The total number of images was 26. COMPARISON: Reference is made to a CT examination of the abdomen and pelvis dated 12/05/2024. FINDINGS: Injected contrast opacifies a decompressed gallbladder. Innumerable filling defects are identified within the largely decompressed bladder. Contrast extravasation around the catheter is visualized, secondary to the absence of transhepatic ac cess. Contrast is also visualized along the undersurface of the caudal-most border of the liver. Contrast is also visualized entering a loop of small bowel within the anterior most portion of the ri ght upper quadrant, consistent with recent CT examination. IMPRESSION: Further evaluation of CT examination dated 12/05/2024 demonstrates no air within the biliary tree or t he gallbladder. Innumerable filling defects within the gallbladder consistent with stones. Extravasation of injected contrast around of the catheter, entering both a loop of anterior, right up per quadrant small bowel as well as along the caudal-most portion of the liver. Reviewed, dictated and finalized at location A. IMPRESSION: Further evaluation of CT examination dated 12/05/2024 demonstrates no air within the biliary tree or the gallbladder. Innumerable filling defects within the gallbladder consistent with stones. Extravasation of injected contrast around of the catheter, entering both a loop of anterior, right upper quadrant small bowel as well as along the caudal-most portion of the liver.
--- NOTE | 2024-10-17 08:51 | ECG_ITS ---
Test Date: 2024-10-17 08:52:46 Measurements Intervals [place] Rate: 60 P: 0 SD: 0 QRS: -14 QRSD: 85 T: 0 QT: 200 QTc: 200 Interpretive Statements UNCLEAR RHYTHM BASELINE ARTIFACT LIMITS INTERPRETATION No previous ECG available for comparison Electronically Signed On 10-17-2024 16:40:35 CDT by Montse Wong M.D.
[2024-10-17 09:13] LABS: Alveolar/Arterial O2 Gradient < 0.0 mmHg; Fractional Inspired Oxygen 21 %; HCO3 ABG 18.3 mEq/l (22.0-26.0); Oxygen Content ABG 12.2 %vol (16.0-22.0); Oxygen Saturation ABG 98.6 % (95.0-100.0); PCO2 ABG 28.8 mmHg (35.0-45.0); PO2 ABG 126.5 mmHg (80.0-100.0); PO2 FiO2 Ratio Arterial Blood 6.02 %
[2024-10-17] MEDS: SODIUM CHLORIDE 0.9% IV 1,000 ML 999 ML IV CONT ×3 (09:13→10:21)
[2024-10-17 09:15] LABS: Modified Allen's Test Pass; Site Drawn RIGHT RADIAL
--- OUTSIDE RECORDS SUMMARY | 2024-10-17 09:15 | XMS_ITS | Clinical Summary ---
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
--- OUTSIDE RECORDS SUMMARY | 2024-10-17 09:15 | XMS_ITS | Clinical Summary ---
Author Organization [facility] Address [address] 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 This disclosure is being madepursuant to the Care Everywhere program and may not contain all information available regarding this patient. Last updated 18.[facility] Allergies Active Allergy Reactions Criticality Noted Date Comments Penicillins Unknown 10/25/2020 Medications * Be aware that medications may not be up to date on this document. Alwaysverify current medications with the patient. No known medications Social History Tobacco Use Types Packs/Day Years Used Date Smoking Tobacco: Some Days Smokeless Tobacco: Never Alcohol Use Standard Drinks/Week Comments Yes 0 (1 standard drink = 0.6 oz pur e alcohol) every now and then Sex and Gender Information Value Date Recorded Sex Assigned at Not on file Legal Sex Male 7:31 PM CDT Gender Identity Not on file Sexual Orientation Not on file Last Filed Vital Signs Vital Sign Reading Time Taken Comments Blood Pressure 155/85 10/26/2020 6:47 AM CDT Pulse 72 10/26/2020 6:47 AM CDT Temperature 36.4 C (97.6 F) 10/26/2020 12:50 AM CDT Respiratory Rate 18 10/26/2020 6:47 AM CDT Oxygen Saturation 99% 10/26/2020 6:47 AM CDT Inhaled Oxygen Concentration - - Weight 83.9 kg (185 lb) 10/25/2020 7:32 PM CDT Height 175.3 cm (5' 9) 10/25/2020 7:32 PM CDT Body Mass Index 27.32 10/25/2020 7:32 PM CDT Plan of Treatment Health Maintenance Due Date Last Done Comments COLOGUARD (AGES 45-75) - COLON CA SCREENING 1954 COLON MONITORING 1954 COLONOSCOPY - COLON CA SCREENING 1954 CT COLONOGRAPHY - COLON CA SCREENING 1954 Colorectal Cancer Screening 1954 FIT - COLON CA SCREENING 1954 FLEX SIG - COLON CA SCREENING 1954 HEPATITIS C SCREENING 08/17/1972 DTAP/TDAP/TD VACCINES (1 - Tdap) 1973 PNEUMOCOCCAL VACCINE 50+ (1 of 1 - PCV) 2004 ZOSTER VACCINE (1 of 2) 2004 AAA SCREENING 08/23/2019 COVID-19 VACCINE (1 - season) 2024 DEPRESSION SCREENING 05/23/2024 INFLUENZA VACCINE (Season Ended) 2025 02/27/2020, 03/07/2019, 02/26/2015, Additional history exists LIPID TESTING 08/15/2025 08/15/2020 Respiratory Syncytial Virus (RSV) Vaccine Pt: or over 60 yrs (1 - 1-dose 75+ series) 2029 HEPATITIS B VACCINE Aged Out No longe r eligible based on patient's age to complete this topic HIB VACCINE Aged Out No longer eligi ble based on patient's age to complete this topic HPV VACCINE Aged Out No longer eligi ble based on patient's age to complete this topic MENINGOCOCCAL (Group B) VACCINE SHARED DECISION-MAKING Aged Out No longer eligible based on patient's age to complete this topic MENINGOCOCCAL GROUPS A/C/Y/W VACCINE Aged Out No longer eligible based on patient's age to complete this topic Insurance MEDICARE MEDICARE MEDICARE [facility] [employer] LIABILITY
--- OUTSIDE RECORDS SUMMARY | 2024-10-17 09:15 | XMS_ITS | Encounter Summary ---
Author Organization [facility] Address 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
--- NOTE | 2024-10-17 09:21 | ECG_ITS ---
Test Date: 2024-10-17 09:24:57 Measurements Intervals [place] Rate: 55 P: 27 CT: 185 QRS: -9 QRSD: 106 T: 162 QT: 447 QTc: 430 Interpretive Statements UNCLEAR RHYTHM SECONDARY TO BASELINE ARTIFACT NONSPECIFIC ST & T-WAVE ABNORMALITY Compared to ECG 10/17/2024 08:52:46 T-wave abnormality now present Electronically Signed On 10-18-2024 14:58:53 CDT by Kyree Pandya M.D.
[2024-10-17 09:37] LABS: Alanine Aminotransferase 40 U/L (6-50); Albumin Level 3.2 g/dL (3.5-5.1); Alkaline Phosphatase 65 U/L (38-126); Anion Gap 20 mmol/L (4-12); Aspartate Amino Transferase 129 U/L (17-59); Bilirubin,Total 1.6 mg/dL (0.2-1.3); Blood Urea Nitrogen 71 mg/dL (9-20); Calcium 7.7 mg/dL (8.4-10.2); Carbon Dioxide 19 mmol/L (22-30); Chloride 116 mmol/L (98-107); Estimated Glomerular Filt Rate 21; Glucose 132 mg/dL (65-110); Lipase 281 U/L (23-300); Magnesium 1.8 mg/dL (1.6-2.3); Potassium 2.9 mmol/L (3.4-5.0); Sodium 155 mmol/L (137-145); Total Protein 6.0 g/dL (6.3-8.2)
[2024-10-17 09:38] LABS: Hematocrit 28.4 % (42.0-52.0); Hemoglobin 9.1 g/dL (14.0-18.0); Immature Platelet Fraction Pct 6.7 % (0.9-11.2); Mean Corpuscular HGB Conc 32.0 g/dl (32-36); Mean Corpuscular Hemoglobin 32.5 pg (26-34); Mean Corpuscular Volume 101.4 fl (80-100); Platelet Count Result 91 k/mm3 (150-375); Red Blood Count 2.80 M/mm3 (4.6-6.20); White Blood Count 7.8 K/mm3 (4.5-10.0)
[2024-10-17 09:42] LABS: INR 1.2; Partial Thromboplastin Time 31.8 Seconds (22.3-36.8); Prothrombin Time 15.4 Seconds (11.1-14.7)
[2024-10-17 09:49] LABS: Add Urine Microscopic? YES; Appearance Urine Clear (Clear); Glucose Urine UA Negative (Negative); Leukocyte Esterase Ur Trace LEU/UL (Negative); NT Pro B Type Natriuretic Pept 433 pg/mL (19.9-100); Nitrate Urine Negative (Negative); Specific Grav Ur 1.023 (1.001-1.035); Troponin I 0.013 ng/mL (0.000-0.034)
[2024-10-17 09:50] LABS: Cannabinoid Screen Urine Negative (Negative)
[2024-10-17 09:54] LABS: Band Neutrophils Percent 7 % (0-6); Lymphocytes Absolute Manual 0.39 K/mm3 (1.1-4.5); Lymphocytes Percent Manual 5.0 % (18-44); Monocytes Absolute Manual 0.62 K/mm3 (0.1-0.90); Monocytes Percent Manual 8 % (3-9); Neutrophils Absolute Manual 6.78 K/mm3 (1.3-6.7); Neutrophils Percent Manual 80 % (46-73); Procalcitonin 2.5 ng/mL; Schistocytes None Seen; Total Cells Counted 100
[2024-10-17 09:57] LABS: Creatine Kinase 5864 U/L (55-170)
[2024-10-17 10:06] LABS: Influenza A QL RT-PCR Negative (Negative); Influenza B QL RT-PCR Negative (Negative); RSV RNA, RT-PCR Negative (Negative); SARS-CoV-2 RNA PCR Negative (Negative)
[2024-10-17] MEDS: KCL 20 MEQ/SW 100 ML 100 ML 50 MEQ IVPB (10:11)
--- NOTE | 2024-10-17 11:22 | ED_ITS ---
HPI - General Adult General Chief complaint: Recheck/Abnormal Lab/Rx Stated complaint: low BP, altered Time Seen by Provider: 10/17/24 08:50 History of Present Illness HPI narrative: Patient is 69-year-old gentleman presents emergency department with chief complaint of found down on the ground. Patient lives independently and was last seen about 2 weeks ago patient states that he fell and reports that he is unsure how long he has laid on the ground. Patient was initially hypotensive by EMS was started on fluid resuscitation the patient states he is not really hurting anywhere Related Data Allergies Allergy/AdvReac Type Severity Reaction Status Date / Time Penicillins Allergy Unknown Verified 10/17/24 09:16 Review of Systems 2 Review of Systems: A 10 system review of systems was completed on the patient and is negative except for what is stated in the HPI. Nursing and ancillary documentation was reviewed. Exam 2 Narrative: GENERAL: ill-appearing, well-nourished, and in no acute distress. HEAD: Normocephalic, atraumatic. EYES: PERRLA and EOMI. ENT: Nares clear, no rhinorrhea or epistaxis. Mucous membranes moist. NECK: Supple. CHEST: Clear to auscultation. No respiratory distress. HEART: Regular rate and rhythm. No murmur heard. Normal peripheral pulses. ABDOMEN: Soft, nontender, nondistended, normal active bowel sounds. EXTREMITIES: Normal range of motion. No edema. SKIN: Warm, dry, no rash. There are areas of redness present to the right side the abdominal wall NEURO: No focal deficits. Alert and oriented x2. PSYCH: Normal mood and affect. Course Vital Signs Vital signs: Vital Signs Temperature 32.4 C L 10/17/24 08:37 Pulse Rate 62 10/17/24 08:37 Respiratory Rate 17 10/17/24 08:37 Blood Pressure 63/48 L 10/17/24 08:37 Pulse Oximetry 94 10/17/24 08:37 Oxygen Delivery Room Air 10/17/24 08:37 Temperature 36.1 C L 10/17/24 13:05 Pulse Rate 83 10/17/24 13:05 Respiratory Rate 36 H 10/17/24 13:05 Blood Pressure 88/61 L 10/17/24 13:05 Pulse Oximetry 100 10/17/24 13:05 Oxygen Delivery Room Air 10/17/24 08:37 Procedures Central Line Placement Right Femoral: Central Line Date: 10/17/24 Central Line Time: 13:51 Performed Emergently - Given emergent patient condition, temporal constraints may have precluded informed consent.: Yes Time Out Performed: Yes Patient Placed on Monitor/Pulse Ox: Yes Max. Sterile Barrier Technique: Caps, large sterile sheet and hand hygiene Central Line Prep: 2% chlorhexidine scrub and sterile drapes applied Local Anesthetic: lidocaine 1% Amount of anesthesia used (mL): 5 Ultrasound Used for Placement: Yes Central Line Lumen Inserted: triple Post Procedure: sutured in place, good blood return, all ports aspirated, flushed, capped and sterile dressing applied Patient Tolerated Procedure: well Medical Decision Making MDM Narrative Medical decision making narrative: Differential diagnosis includes rhabdomyolysis, UTI, pneumonia, intra-abdominal infection, intracranial hemorrhage, CT head showed no acute abnormalities the patient was found to be hypothermic and was started on active rewarming. Laboratory studies showed a creatinine of 3.0 and a BUN of 70 the patient was also hypokalemic with potassium of 2.9 CK was elevated at 5864 procalcitonin is 2.5 Urinalysis shows trace ketones and trace leukocyte esterase Drug screen was negative COVID flu RSV are negative CT head showed no acute abnormality Chest x-ray showed no focal infiltrate CT chest abdomen pelvis showed no acute abnormality Vital Signs Vital Signs: Vital Signs Temperature 32.4 C L 10/17/24 08:37 Pulse Rate 62 10/17/24 08:37 Respiratory Rate 17 10/17/24 08:37 Blood Pressure 63/48 L 10/17/24 08:37 Pulse Oximetry 94 10/17/24 08:37 Oxygen Delivery Room Air 10/17/24 08:37 Temperature 36.1 C L 10/17/24 13:05 Pulse Rate 83 10/17/24 13:05 Respiratory Rate 36 H 10/17/24 13:05 Blood Pressure 88/61 L 10/17/24 13:05 Pulse Oximetry 100 10/17/24 13:05 Oxygen Delivery Room Air 10/17/24 08:37 Lab Data 10/17/24 09:12 10/17/24 09:12 Labs: Lab Results 10/17/24 10/17/24 Range/Units 09:12 11:43 WBC 7.8 (4.5-10.0) K/mm3 RBC 2.80 L (4.6-6.20) M/mm3 Hgb 9.1 L (14.0-18.0) g/dL Hct 28.4 L (42.0-52.0) % MCV 101.4 H (80-100) fl MCH 32.5 (26-34) pg MCHC 32.0 (32-36) g/dl RDW 19.1 H (11.5-14.5) % Plt Count 91 L (150-375) k/mm3 MPV 11.7 H (7.4-10.4) fl Immature Gran % (Auto) Not Reportable Neut % (Auto) Not Reportable Lymph % (Auto) Not Reportable [place] % (Auto) Not Reportable Eos % (Auto) Not Reportable Baso % (Auto) Not Reportable Lymph # (Auto) Not Reportable [place] # (Auto) Not Reportable Eos # (Auto) Not Reportable Baso # (Auto) Not Reportable Abs Immat Gran (auto) Not Reportable Absolute Neuts (auto) Not Reportable Absolute Nucleated RBC Not Reportable Total Counted 100 Neutrophils % (Manual) 80 H (46-73) % Band Neutrophils % 7 H (0-6) % Lymphocytes % (Manual) 5.0 L (18-44) % Monocytes % (Manual) 8 (3-9) % Nucleated RBC % Not Reportable Abs Neuts (Manual) 6.78 H (1.3-6.7) K/mm3 Abs Lymphs (Manual) 0.39 L (1.1-4.5) K/mm3 Abs Monocytes (Manual) 0.62 (0.1-0.90) K/mm3 Nucleated RBCs 4 % Platelet Estimate Decreased (Adequate) Large Platelets Present % Immature Plt Fraction 6.7 (0.9-11.2) % Schistocytes None seen PT 15.4 H (11.1-14.7) Seconds INR 1.2 APTT 31.8 (22.3-36.8) Seconds Sodium 155 H (137-145) mmol/L Potassium 2.9 L (3.4-5.0) mmol/L Chloride 116 H (98-107) mmol/L Carbon Dioxide 19 L (22-30) mmol/L Anion Gap 20 H (4-12) mmol/L BUN 71 H (9-20) mg/dL Creatinine 3.00 H (0.7-1.3) mg/dL Estim Creat Clear Calc Not Reportable Estimated GFR 21 L (59 - ) Glucose 132 H (65-110) mg/dL Lactic Acid 3.5 H 1.9 (0.7-2.0) mmol/L Calcium 7.7 L (8.4-10.2) mg/dL Magnesium 1.8 (1.6-2.3) mg/dL Total Bilirubin 1.6 H (0.2-1.3) mg/dL AST 129 H (17-59) U/L ALT 40 (6-50) U/L Alkaline Phosphatase 65 (38-126) U/L Total Creatine Kinase 5864 H (55-170) U/L Troponin I 0.013 < 0.012 (0.000-0.034) ng/mL NT-Pro-B Natriuret Pep 433 H (19.9-100) pg/mL Total Protein 6.0 L (6.3-8.2) g/dL Albumin 3.2 L (3.5-5.1) g/dL Lipase 281 (23-300) U/L Procalcitonin 2.5 ng/mL Urine Color Dark yellow (Yellow) Urine Appearance Clear (Clear) Urine pH 5.5 (5.0-9.0) Ur Specific [place] 1.023 (1.001-1.035) Urine Protein 1+ H (Negative) mg/dL Urine Glucose (UA) Negative (Negative) mg/dL Urine Ketones Trace H (Negative) mg/dL Ur Blood (Man) Negative (Negative) Urine Nitrate Negative (Negative) Urine Bilirubin 3+ H (Negative) Urine Urobilinogen 1.0 (<2.0) mg/dL Leukocyte Esterase Rfl Trace H (Negative) JEVON/UL Urine RBC 0-2 (0-2) /hpf Urine WBC 0-3 (0-3) /hpf Ur Squamous Epith Cells Few (Few) /hpf Urine Bacteria Trace /hpf Urine Opiates Screen Negative (Negative) Urine Methadone Screen Negative (Negative) Ur Barbiturates Screen Negative (Negative) Ur Phencyclidine Scrn Negative (Negative) Ur Amphetamine Screen Negative (Negative) U Benzodiazepines Scrn Negative (Negative) Urine Cocaine Screen Negative (Negative) U Cannabinoids Screen Negative (Negative) Ethyl Alcohol < 10 (<10) mg/dL Influenza A (RT-PCR) Negative (Negative) Influenza B (RT-PCR) Negative (Negative) RSV (RT-PCR) Negative (Negative) SARS-CoV-2 RNA (RT-PCR) Negative (Negative) ABG Data ABG results: 10/17/24 08:52 Puncture Site Right radial ABG pH 7.422 ABG pCO2 28.8 L ABG pO2 126.5 H ABG PO2/FiO2 Ratio 6.02 ABG HCO3 18.3 L ABG O2 Saturation 98.6 ABG O2 Content 12.2 L ABG Base Excess -5.3 A-a Gradient < 0.0 Oxyhemoglobin 97.3 Total Hemoglobin 8.7 L O2 Delivery Device Not Reportable O2 Liters/Min Not Reportable FiO2 21 Discharge Plan Discharge Clinical Impression: Acute kidney injury, Rhabdomyolysis, Altered mental status Patient Disposition: Still a Patient Condition: Stable Patient Language: Indonesian Follow-up/Referrals: CASEY, [Primary Care Provider] - Time of Disposition: 13:53
--- NOTE | 2024-10-17 11:38 | ECG_ITS ---
Test Date: 2024-10-17 11:42:34 Measurements Intervals [place] Rate: 69 P: 16 [place]: 170 QRS: 2 QRSD: 101 T: 261 QT: 412 QTc: 443 Interpretive Statements SINUS RHYTHM NONSPECIFIC ST & T-WAVE ABNORMALITY Compared to ECG 10/17/2024 09:24:57 No significant changes Electronically Signed On 10-18-2024 15:04:16 CDT by Kyree Pandya M.D.
[2024-10-17 12:13] LABS: Troponin I < 0.012 ng/mL (0.000-0.034)
--- NOTE | 2024-10-17 13:24 | PC.NURSE ---
LOVEP Bryon at bedside for Central Line Placement.
--- NOTE | 2024-10-17 13:31 | PM.IMHP ---
H&P: HPI History of Present Illness Date/Time: 10/17/24 13:31 Chief Complaint: AMS, Hypotension, Fall Narrative: 69 y/o M with PMH of hypertension, gout, cancer, and hyperlipidemia (obtained via medication history, patient unable to confirm) presents here with fall, altered mental status, and hypotension. The patient presents here via EMS from home for further evaluation of fall, altered mental status, and hypotension. The patient currently lives at home independently. Daughter reports his last known well was approximately 2 weeks ago. He was found at the bottom of the stairs face down by his daughter. The patient is unsure when he fell down the steps or why. He endorses head strike and reports loss of consciousness - thinks it may have been for some time. He arrived to the emergency department A&O x1. Remains orientated to self only. Denies headache, neck pain, pain to extremities, nausea, vomiting, diarrhea, fever, chills, focal weakness or focal numbness, dysarthria, word finding difficult, or changes in vision. Initial VS at presentation: 90.4? F, HR 62, RR 17, 63/48, and 94% on RA. ED workup showed: No leukocytosis, hemoglobin 9.1, INR 1.2, ABG with no significant derangements, sodium 155, potassium 2.9, creatinine 3.0 and GFR 21, calcium 7.7/albumin 3.2, initial troponin negative, BNP 433 (normal for age), procalcitonin 2.5, lactic 3.5 (repeat 1.9), CK 5864, UA not consistent with UTI, UDS negative, and viral PCR negative. Head CT showed no acute intracranial process, age-related changes including [id number] diffuse volume loss and mild to moderate scattered white matter hypoattenuation consistent with chronic small-vessel ischemic disease. CXR showed no focal infiltrate or effusion. CT of the chest/abdomen/pelvis showed no hollow or solid organ injury and no acute fractures. EKG showed sinus bradycardia, nonspecific ST and T-wave abnormality, rate 55. Review of Systems Review of Systems: All systems reviewed & are unremarkable except as noted in HPI and below ( Limited, A&O x1, unreliable) [facility] Past Medical History Medical History (Updated 10/17/24 @ 21:24 by Bethany Garcia APRN) Cancer Gout Social History Social History Spiritual care concerns: No Meds Home Medications and Allergies Allergies Allergy/AdvReac Type Severity Reaction Status Date / Time Penicillins Allergy Unknown Verified 10/17/24 09:16 Vital Signs Vital Signs - 24 hr 10/17/24 08:37 10/17/24 08:54 10/17/24 09:00 Temperature 90.4 F L 90.4 F L 90.9 F L Pulse Rate 62 59 L 58 L Respiratory Rate 17 31 H 17 Blood Pressure 63/48 L Pulse Oximetry 94 100 Oxygen Delivery Room Air 10/17/24 09:02 10/17/24 09:08 10/17/24 09:11 Temperature 91.0 F L 91 F L 91.0 F L Pulse Rate 58 L 56 L Respiratory Rate 28 H 20 Blood Pressure 63/52 L 83/65 L Pulse Oximetry 100 Oxygen Delivery 10/17/24 09:15 10/17/24 09:19 10/17/24 09:21 Temperature 91.0 F L 90.9 F L Pulse Rate 57 L 55 L 56 L Respiratory Rate 29 H 28 H 17 Blood Pressure 83/65 L 96/71 L Pulse Oximetry 100 100 100 Oxygen Delivery 10/17/24 09:23 10/17/24 09:29 10/17/24 09:31 Temperature 90.9 F L 90.8 F L Pulse Rate 163 H Respiratory Rate 20 17 Blood Pressure 89/65 L Pulse Oximetry 100 Oxygen Delivery 10/17/24 09:38 10/17/24 09:41 10/17/24 09:51 Temperature 91.1 F L 90.8 F L 90.8 F L Pulse Rate 60 Respiratory Rate 23 H 22 H Blood Pressure 94/60 L 87/58 L Pulse Oximetry 100 100 Oxygen Delivery 10/17/24 09:53 10/17/24 10:01 10/17/24 10:08 Temperature 91.2 F L 90.9 F L 91.3 F L Pulse Rate 66 Respiratory Rate 22 H Blood Pressure 77/51 L Pulse Oximetry 100 Oxygen Delivery 10/17/24 10:11 10/17/24 10:16 10/17/24 10:21 Temperature 91.1 F L 91.2 F L 91.3 F L Pulse Rate 59 L 61 Respiratory Rate 25 H 28 H 27 H Blood Pressure 69/48 L 74/51 L 72/55 L Pulse Oximetry 100 100 100 Oxygen Delivery 10/17/24 10:22 10/17/24 10:38 10/17/24 10:45 Temperature 91.3 F L 91.8 F L 91.8 F L Pulse Rate 61 Respiratory Rate 12 24 H Blood Pressure Pulse Oximetry 100 100 Oxygen Delivery 10/17/24 10:46 10/17/24 10:50 10/17/24 10:51 Temperature 91.8 F L 92 F L 92.0 F L Pulse Rate 61 61 62 Respiratory Rate 25 H 24 H 31 H Blood Pressure 80/54 L 80/54 L 78/54 L Pulse Oximetry 100 99 Oxygen Delivery 10/17/24 11:01 10/17/24 11:08 10/17/24 11:11 Temperature 92.2 F L 92.8 F L 92.5 F L Pulse Rate 63 63 Respiratory Rate 30 H 26 H Blood Pressure 94/62 L 106/66 Pulse Oximetry 98 Oxygen Delivery 10/17/24 11:21 10/17/24 11:30 10/17/24 11:30 Temperature 92.8 F L 93.5 F L 93.0 F L Pulse Rate 66 Respiratory Rate 31 H 33 H Blood Pressure 97/61 L Pulse Oximetry 98 98 Oxygen Delivery 10/17/24 11:31 10/17/24 11:41 10/17/24 11:45 Temperature 93.0 F L 93.6 F L 93.8 F L Pulse Rate 69 Respiratory Rate 31 H 32 H 27 H Blood Pressure 87/58 L 88/66 L Pulse Oximetry 99 Oxygen Delivery 10/17/24 11:51 10/17/24 12:00 10/17/24 12:00 Temperature 94.0 F L 93.8 F L 94.4 F L Pulse Rate 68 71 Respiratory Rate 32 H 30 H Blood Pressure 83/56 L Pulse Oximetry Oxygen Delivery 10/17/24 12:01 10/17/24 12:11 10/17/24 12:15 Temperature 94.5 F L 94.9 F L 95.0 F L Pulse Rate 71 71 74 Respiratory Rate 35 H 30 H 34 H Blood Pressure 86/65 L 73/52 L Pulse Oximetry Oxygen Delivery 10/17/24 12:21 10/17/24 12:30 10/17/24 12:30 Temperature 95.3 F L 95.9 F L 95.6 F L Pulse Rate 75 76 Respiratory Rate 35 H 35 H Blood Pressure 92/63 L Pulse Oximetry Oxygen Delivery 10/17/24 12:31 10/17/24 12:41 10/17/24 12:45 Temperature 95.7 F L 96.0 F L 96.2 F L Pulse Rate 76 77 77 Respiratory Rate 35 H 35 H 31 H Blood Pressure 67/51 L 76/55 L Pulse Oximetry Oxygen Delivery 10/17/24 12:51 10/17/24 13:00 10/17/24 13:00 Temperature 96.4 F L 97.1 F L 96.7 F L Pulse Rate 80 81 Respiratory Rate 37 H 36 H Blood Pressure 77/61 L Pulse Oximetry 100 Oxygen Delivery 10/17/24 13:01 10/17/24 13:05 Temperature 96.8 F L 96.9 F L Pulse Rate 79 83 Respiratory Rate 36 H 36 H Blood Pressure 70/50 L 88/61 L Pulse Oximetry 100 100 Oxygen Delivery Exam Const: General: comfortable and no acute distress Other: , frail, ill-appearing, elderly HENMT: Face/Nose/Sinus: Normal nares present Mouth: Yes dry mucous membranes Eyes: General: appearance normal, both eyes and all related structures Sclera: sclerae normal Pupils: Equal, round and reactive pupils present EOM: EOMs intact bilaterally Resp: Effort & Inspection: normal respiratory effort Auscultation: clear to auscultation bilaterally Cardio: Rate: regular rate Rhythm: regular rhythm Other: S1-S2 present without murmur, rub, ectopy GI: Other: abdomen soft, nondistended, nontender. Hyperactive bowel sounds in all quadrants. Skin: General skin exam: normal color and no rashes or lesions noted Other: Modest swelling to the right side of the patient's face. Neuro: Other: Garbled speech, difficult to understand. A&O x1. Moving all extremities, however + 1 in all extremities. Left foot weaker than right. Sales And Service Consultant symmetric. Right facial droop verses droop due to swelling. Extrem: General: normal to inspection Psych: Other: Poor insight and judgment at present, pleasant. H&P: Results Labs Labs: Short CBC 10/17/24 Range/Units 09:12 WBC 7.8 (4.5-10.0) K/mm3 Hgb 9.1 L (14.0-18.0) g/dL Hct 28.4 L (42.0-52.0) % Plt Count 91 L (150-375) k/mm3 BMP 10/17/24 09:12 Sodium 155 H Potassium 2.9 L Chloride 116 H Carbon Dioxide 19 L BUN 71 H Creatinine 3.00 H Glucose 132 H Calcium 7.7 L Cardiac Enzymes 10/17/24 10/17/24 Range/Units 09:12 11:43 Total Creatine Kinase 5864 H (55-170) U/L Troponin I 0.013 < 0.012 (0.000-0.034) ng/mL Liver Function 10/17/24 Range/Units 09:12 Total Bilirubin 1.6 H (0.2-1.3) mg/dL AST 129 H (17-59) U/L ALT 40 (6-50) U/L Alkaline Phosphatase 65 (38-126) U/L Albumin 3.2 L (3.5-5.1) g/dL Urine 10/17/24 Range/Units 09:12 Urine Color Dark yellow (Yellow) Urine Appearance Clear (Clear) Urine pH 5.5 (5.0-9.0) Ur Specific [place] 1.023 (1.001-1.035) Urine Protein 1+ H (Negative) mg/dL Urine Glucose (UA) Negative (Negative) mg/dL Assessment and Plan Assessment and plan (1) Altered mental status: Qualifiers: Altered mental status type: disorientation Qualified Code(s): R41.0 - Disorientation, unspecified Code(s): R41.82 - Altered mental status, unspecified Status: Acute Assessment and Plan: - Head CT: 1. No acute intracranial process. 2. Age-related changes including mild to moderate diffuse volume loss and mild to moderate scattered white matter hypoattenuation consistent with chronic small vessel ischemic disease. - UA showed no indicators of infection, no pneumonia seen on imaging, UDS negative, viral PCR negative. - alteration may be secondary to acute hypotension. Cannot rule out spontaneous bacteremia, blood cultures pending. Started on broad spectrum antibiotics including cefepime and vancomycin. - neurochecks Q4 and admission to the ICU for close monitoring - garbled speech and possible right facial droop on exam, check brain MRI (2) Rhabdomyolysis: Qualifiers: Encounter type: initial encounter Rhabdomyolysis type: traumatic Qualified Code(s): T79.6XXA - Traumatic ischemia of muscle, initial encounter Code(s): M62.82 - Rhabdomyolysis Status: Acute Assessment and Plan: - fall, unknown date. Last seen well 2 weeks ago. - CK upon arrival was 5864 - IV fluids: 3L bolus -> 125 mL/hr - trend (3) Acute kidney injury: Code(s): N17.9 - Acute kidney failure, unspecified Status: Acute Assessment and Plan: - creatinine 3.0 and GFR 21, no previous available for comparison - CK elevated post fall and prolonged downtime, unknown amount of time but last seen well 2 weeks ago. ALEJANDRO likely secondary to acute dehydration and rhabdomyolysis. Will rehydrate for the next 24 hours, if no improvement in renal function consider further workup and nephrology consultation. - monitor I&Os - trend renal function, correct electrolytes p.r.n. (4) Hypotension: Qualifiers: Hypotension type: unspecified hypotension type Qualified Code(s): I95.9 - Hypotension, unspecified Code(s): I95.9 - Hypotension, unspecified Status: Acute Assessment and Plan: - suspect acute hypotension secondary to dehydration due to prolonged down time, unclear meta time lasting all 2 weeks ago. Cannot rule out septic shock and spontaneous bacteremia. UA and imaging negative for infection. - central line placed on 10/17, started on Levophed gtt. - albumin mildly reduced, replete 25G x4 - admit to ICU with supervisor travel trailer consulted for close hemodynamic monitoring (5) Hypernatremia: Code(s): E87.0 - Hyperosmolality and hypernatremia Status: Acute Assessment and Plan: - Na 155 - likely secondary to acute dehydration, rehydrated with 3 L bolus and now on 06/11 5 mL/hour of NS - repeat BMP stat - monitor closely (6) Hypokalemia: Code(s): E87.6 - Hypokalemia Status: Acute Assessment and Plan: - K 2.9 - initial repletion with 20 KCL IVPB, recheck now. Suspect patient will need further replacement. - monitor (7) Fall (on) (from) other stairs and steps, initial encounter: Code(s): W10.8XXA - Fall (on) (from) other stairs and steps, initial encounter Status: Acute Assessment and Plan: - trauma work up including a head CT, CXR, and CT of the chest/abdomen/pelvis negative for acute traumatic findings - fall precautions - suspect patient will need PT/OT or placement at discharge. Will hold on consultation at this time, unclear hospital course length Plan Diet: NPO with hypoglycemia protocol GI Prophylaxis: Pantoprazole IV DVT Prophylaxis: Lovenox SQ IV fluids: 3L bolus -> 125 mL/hr Lines/Tubes: Peripheral IV, central line, Michelle Code Status: Full code Quality VTE Prophylaxis VTE prophylaxis: pharmacologic ordered Critical Care Time: I personally spent 45 minutes of direct patient care including (but not limited to) the physical examination, decision-making, bedside evaluation, review of medical records, review of labs and imaging, discussion with nursing staff and other providers for collaborative, critical care management of this patient. Hospitalist [facility] Advance Care Plan I have confirmed that the patient's Advanced Care Plan is present, code status is documented, or surrogate decision maker is listed in patient medical record.: Yes Medication Reconciliation I have utilized all available resources to obtain, update and review the patients current medications (includes all prescriptions, OTC, herbals, cannabis, and nutritional supplements).: Yes
[2024-10-17] MEDS: CEFEPIME 2 GM/NS 50 ML 2 GM/50 ML BAG IVPB (13:40)
[2024-10-17] MEDS: NOREPINEPHRINE 8 MG/D5W 250 ML 8 MG/250 ML BAG 9.38 MG IV CONT (14:21)
[2024-10-17] MEDS: CENTRAL LINE FLUSH 10 ML IV PUSH ×2 (14:24→20:54)
[2024-10-17 15:28] LABS: MRSA (PCR) NOT DETECTED (NOT DETECTE)
[2024-10-17] MEDS: VANCOMYCIN 1,000 MG/NS 250 ML 1,000 MG/250 ML BAG 250 MG IVPB (15:33)
[2024-10-17] MEDS: SODIUM BICARBONATE 8.4% 150 MEQ in WATER, STERILE FOR INJECTION 950 ML 125 MEQ IV CONT ×2 (15:33→23:42)
[2024-10-17 15:49] LABS: Anion Gap 18 mmol/L (4-12); Blood Urea Nitrogen 70 mg/dL (9-20); Calcium 7.2 mg/dL (8.4-10.2); Carbon Dioxide 15 mmol/L (22-30); Chloride 121 mmol/L (98-107); Estimated CRCL calculation 18 ml/min; Estimated Glomerular Filt Rate 21; Glucose 102 mg/dL (65-110); Potassium 3.0 mmol/L (3.4-5.0); Sodium 154 mmol/L (137-145)
[2024-10-17] MEDS: ALBUMIN HUMAN 25% 25 GM/100 ML 100 ML IVPB ×2 (17:26→23:42)
[2024-10-17] MEDS: POTASSIUM CHLORIDE INJ 40 MEQ in SODIUM CHLORIDE 0.9% IV 500 ML 130 MEQ IVPB ×2 (17:27→23:42)
[2024-10-17 22:35] LABS: Anion Gap 19 mmol/L (4-12); Blood Urea Nitrogen 70 mg/dL (9-20); Calcium 6.9 mg/dL (8.4-10.2); Carbon Dioxide 18 mmol/L (22-30); Chloride 118 mmol/L (98-107); Estimated CRCL calculation 19 ml/min; Estimated Glomerular Filt Rate 21; Glucose 127 mg/dL (65-110); Potassium 3.1 mmol/L (3.4-5.0); Sodium 155 mmol/L (137-145)
[2024-10-18] VITALS (43 sets, daily range): BP systolic 90–128; BP diastolic 55–78; PULSE 28–82; RESP 12–100; TEMP 35.8–36.7; O2SAT 98–100; BMI 22.1
--- NOTE | 2024-10-18 | ECHO_ITS ---
Patient Info Name: Tip Calvo Age: 69 years : 1955 Gender: Male Ht: 68 in Wt: 145 lbs BSA: 1.78 m2 HR: 69 bpm BP: 99 / 59 mmHg Technical Quality: Fair Exam Date: 10/18/2024 11:21 AM Patient Status: I Admit Date: 10/17/2024 Exam Type: CA echo doppler color flow Complete two-dimensional, color flow and Doppler transthoracic echocardiogram is performed. Staff Referring Physician: Bethany Garcia Progress Developer: Desirae Vann Attending Provider: Tevin Dickerson MD Summary 1. Complete two-dimensional, color flow and Doppler transthoracic echocardiogram is performed. 2. There is normal biventricular size and systolic function. 3. There are no significant valvular abnormalities. Left Ventricle The left ventricle is normal in size and systolic function. The left ventricular ejection fraction is visually estimated to be 60-65%. Right Ventricle The right ventricle is normal in size and systolic function. Left Atria The left atrium is mildly dilated. Right Atria The right atrium is normal size. Atrial Septum The atrial septum is intact by color Doppler. Aortic Valve The aortic valve is trileaflet and opens well. There is no aortic regurgitation. Pulmonic Valve The pulmonic valve is not well visualized. There is no color Doppler evidence of pulmonic valve regurgitation. Mitral Valve The mitral valve leaflets open. There is trace mitral regurgitation. Tricuspid Valve The tricuspid valve is normal. There is trace tricuspid regurgitation. Pericardium/Pleural Pericardium is normal in appearance with no evidence for significant pericardial effusion. Inferior Vena Cava Normal inferior vena cava with >50% collapse upon inspiration consistent with normal right atrial pressure, 3 mmHg. Aorta The aortic root at the level of the sinus of Valsalva measures 3.3 cm diameter. Left Ventricular Outflow Tract Name Value Normal LVOT 2D LVOT Diameter 2.2 cm LVOT Doppler LVOT Peak Velocity 103 cm/s LVOT Peak Gradient 4 mmHg LVOT Mean Gradient 2 mmHg LVOT VTI 24 cm LVOT VTI/AV VTI Ratio 0.9 LVOT Stroke Volume 88 ml LVOT CO 15.0 l/min LVOT CI 8.4 l/min/m2 Pulmonic Valve Name Value Normal PV Doppler PV Peak Velocity 95 cm/s PV Peak Gradient 4 mmHg Mitral Valve Name Value Normal MV Diastolic Function MV E Peak Velocity 77 cm/s MV A Peak Velocity 69 cm/s MV E/A 1.1 MV Decel Time (PW) 211 ms MV Annular TDI MV E/e' (Septal) 8.6 MV E/e' (Lateral) 7.2 MV E/e' (Average) 7.9 Tricuspid Valve Name Value Normal Estimated PAP/RSVP RA Pressure 3 mmHg <=5 TV Annular TDI TV Lateral Jazmine s' Velocity 14.5 cm/s >=9.5 Aorta Name Value Normal Ascending Aorta Ao Root Diameter (MM) 3.6 cm Ao Root Diam Index (MM) 2.0 cm/m2 Aortic Valve Name Value Normal AV Doppler AV Peak Velocity 111 cm/s AV Peak Gradient 5 mmHg AV Mean Gradient 3 mmHg AV VTI 28 cm AV Area (Cont Eq VTI) 3.2 cm2 >=3.0 AV Area (Cont Eq Johnathan) 3.4 cm2 AV DI (Johnathan) 0.93 AV Regurgitation 2D LVOT Area 3.7 cm2 Ventricles Name Value Normal LV Dimensions 2D/MM IVS Diastolic Thickness (2D) 1.0 cm 0.6-1.0 LVID Diastole (2D) 4.0 cm 4.2-5.8 LVIW Diastolic Thickness (2D) 0.9 cm 0.6-1.0 LVID Systole (2D) 3.2 cm 2.5-4.0 LVOT Diameter 2.2 cm LV Mass (2D Cubed) 119.92 g 88.00-224.00 LV Mass Index (2D Cubed) 67 g/m2 49-115 Relative Wall Thickness (2D) 0.46 <=0.42 LV Fractional Shortening/Ejection Fraction 2D/MM LV Fractional Shortening (2D) 21 % 25-43 LV EF (2D Teichholz) 44 % LV Diastolic Volume (4C MOD) 98 ml LV EF (4C MOD) 57 % LV Diastolic Volume (2C MOD) 81 ml LV EF (2C MOD) 67 % LV Diastolic Volume (BP MOD) 89 ml 62-150 LV Diastolic Volume Index (BP MOD) 50 ml/m2 34-74 LV Systolic Volume (BP MOD) 35 ml 21-61 LV Systolic Volume Index (BP MOD) 19 ml/m2 11-31 LV EF (BP MOD) 61 % 52-72 LV Diastolic Length (4C) 8.5 cm LV Systolic Length (4C) 6.6 cm LV Stroke Volume (4C MOD) 56 ml RV Dimensions 2D/MM RVID Diastole (2D) 3.0 cm 2.1-3.5 Atria Name Value Normal LA Dimensions LA Volume (4C A-L) 57 ml LA Volume (BP A-L) 64 ml RA Dimensions RA Systolic Major Wesley Length (4C) 5.1 cm 2.1-2.7 RA Area (4C) 13.3 cm2 <=18.0 Report Signatures
[2024-10-18 04:02] LABS: Immature Granulocyte Percent A 0.7 % (0-0.5); Immature Platelet Fraction Pct 3.8 % (0.9-11.2); Lymphocytes Absolute Auto 1.80 K/mm3 (0.9-3.2); Mean Corpuscular HGB Conc 32.5 g/dl (32-36); Mean Corpuscular Hemoglobin 32.6 pg (26-34); Mean Corpuscular Volume 100.5 fl (80-100); Nucleated Red Blood Cells Absolute Auto 0.040 K/mm3 (0.0-0.012); Nucleated Red Blood Cells Perc 0.4 % (0.0-0.2); Platelet Count Result 62 k/mm3 (150-375); Red Blood Count 1.90 M/mm3 (4.6-6.20); White Blood Count 9.8 K/mm3 (4.5-10.0)
[2024-10-18 04:12] LABS: Alanine Aminotransferase 40 U/L (6-50); Albumin Level 2.9 g/dL (3.5-5.1); Alkaline Phosphatase 49 U/L (38-126); Anion Gap 16 mmol/L (4-12); Aspartate Amino Transferase 168 U/L (17-59); Bilirubin,Total 1.3 mg/dL (0.2-1.3); Blood Urea Nitrogen 67 mg/dL (9-20); Calcium 6.6 mg/dL (8.4-10.2); Carbon Dioxide 21 mmol/L (22-30); Chloride 119 mmol/L (98-107); Estimated CRCL calculation 20 ml/min; Estimated Glomerular Filt Rate 22; Glucose 114 mg/dL (65-110); Magnesium 1.3 mg/dL (1.6-2.3); Potassium 3.3 mmol/L (3.4-5.0); Sodium 156 mmol/L (137-145); Total Protein 5.0 g/dL (6.3-8.2)
[2024-10-18 04:25] LABS: Hematocrit 19.1 % (42.0-52.0); Hemoglobin 6.2 g/dL (14.0-18.0)
[2024-10-18 04:26] LABS: Hypochromasia 2+; Schistocytes None Seen
[2024-10-18] MEDS: ALBUMIN HUMAN 25% 25 GM/100 ML 100 ML IVPB ×2 (05:38→11:25)
[2024-10-18] MEDS: MAGNESIUM SULF 2 GM/WATER 50ML 2 GM/50 ML BAG IVPB (05:45)
[2024-10-18] MEDS: POTASSIUM CHLORIDE INJ 40 MEQ in SODIUM CHLORIDE 0.9% IV 500 ML 130 MEQ IVPB (05:45)
[2024-10-18] MEDS: CENTRAL LINE FLUSH 10 ML IV PUSH ×3 (06:06→20:07)
[2024-10-18] MEDS: SODIUM CHLORIDE 0.9% IV 250 ML 30 ML IV CONT (07:20)
[2024-10-18] MEDS: SODIUM CHLORIDE 0.45% 1,000 ML 125 ML IV CONT ×2 (08:06→16:59)
[2024-10-18] MEDS: CEFEPIME 2 GM/NS 50 ML 2 GM/50 ML BAG IVPB (08:06)
[2024-10-18] MEDS: PANTOPRAZOLE SODIUM IV 40 MG VIAL IV PUSH ×2 (08:06→20:07)
[2024-10-18 08:51] LABS: Creatine Kinase 8292 U/L (55-170)
--- NOTE | 2024-10-18 10:36 | P.CONIN_ITS ---
Assessment and Plan Assessment and plan (1) Shock: Code(s): R57.9 - Shock, unspecified Status: Acute Assessment and Plan: 10/17: And EMS arrive patient's house he was found face down with, hypotensive with systolic in the 50s, patient given IV fluids in the ER, central line inserted, started on Levophed -Levophed off this morning -procalcitonin levels are at high -patient was started on cefepime and vancomycin -MRSA screen is negative, will DC vancomycin and cefepime for now -10/17: Blood cultures negative-so far -will repeat procalcitonin -no nidus of infection on either chest x-ray, CT chest abdomen and pelvis, UA was clear, will hold off antibiotics for now (2) Altered mental status: Qualifiers: Altered mental status type: disorientation Qualified Code(s): R41.0 - Disorientation, unspecified Code(s): R41.82 - Altered mental status, unspecified Status: Acute Assessment and Plan: Altered mental status is multifactorial could be related to hypovolemia, shock, hypotension, acute kidney injury, rhabdomyolysis -CT brain was negative for intracranial abnormalities -MRI has been ordered to rule out stroke -patient moving all extremities at this time (3) Fall (on) (from) other stairs and steps, initial encounter: Code(s): W10.8XXA - Fall (on) (from) other stairs and steps, initial encounter Status: Acute Assessment and Plan: Patient was found on the ground face down unknown amount of time, unknown etiology -continue treat underlying cause -echocardiogram has been ordered -continue tele monitoring in the ICU (4) Acute kidney injury: Code(s): N17.9 - Acute kidney failure, unspecified Status: Acute Assessment and Plan: Acute kidney injury likely related to hypotension, hypovolemia, shock, rhabdomyolysis -patient received 3 L IV fluid bolus in the ER -started on bicarb infusion -patient was hypernatremic, switched bicarb infusion to 0.45% saline at 125 mL/hour -check serial BMPs -continue to monitor urine output, electrolytes and renal function -patient presented with creatinine of 3.0 (unknown baseline) -check urine lytes, urine eosinophils -CT scan of the abdomen and pelvis did not show any hydronephrosis -CK levels trending up, will give additional IV fluid bolus -nephrology has been consulted (5) Rhabdomyolysis: Qualifiers: Encounter type: initial encounter Rhabdomyolysis type: traumatic Q ualified Code(s): T79.6XXA - Traumatic ischemia of muscle, initial encounter Code(s): M62.82 - Rhabdomyolysis Status: Acute Assessment and Plan: Rhabdomyolysis likely related to being down on the ground for unknown amount of time -patient has been given 3 L IV fluids in the ER -will give additional IV fluid in the ICU LR 500 mL IV x1 -continue 0.45% saline (6) Electrolyte imbalance: Code(s): E87.8 - Other disorders of electrolyte and fluid balance, not elsewhere classified Status: Acute Assessment and Plan: Potassium, magnesium repleted (7) Anemia: Code(s): D64.9 - Anemia, unspecified Status: Acute Assessment and Plan: Patient dropped his hemoglobin this morning to 6.2 from 9.1 on admission -will transfuse 2 units of packed RBCs -repeat CBC post RBC transfusion -will check stool occult -folic acid, vitamin B12 and iron panel (8) Thrombocytopenia: Code(s): D69.6 - Thrombocytopenia, unspecified Status: Acute Assessment and Plan: Thrombocytopenia with platelet counts of 62 this morning, 91 on admission -will transfuse 1 unit of packed RBCs given patient dropped his hemoglobin to 6.2 -INR 1.2 on admission -monitor Plan DVT prophylaxis: Stress ulcer prophylaxis: Nutrition: Code Status: Critical Care Time Spent: Due to a high probability of clinically significant, life threatening deterioration, the patient required my highest level of preparedness to intervene emergently and I personally spent this critical care time directly and personally managing the patient. This critical care time included obtaining a history; examining the patient; pulse oximetry; ordering and review of studies; arranging urgent treatment with development of a management plan; evaluation of patient's response to treatment; frequent reassessment; and discussions with other providers. It was exclusive of separately billable procedures and treating other patients and teaching time. Please see Assessment and Plan section and the rest of the note for further information on patient assessment and treatment This dictation may have been done utilizing a voice recognition system. Attempts have been made to correct errors. However, there may be uncorrected grammatical, spelling, and recognitions errors present. Prizer Hand Consult Note Consult date: 10/18/24 Reason for consult: Found down on the ground, altered mental status, rhabdomyolysis, acute kidney injury, shock HPI: Tip Calvo is a 69 year old male with past medical history of hypertension, gout, hyperlipidemia, presented the ED after being found down on the ground possible after a fall, altered mental status, hypotension. According the records went on to call 911, patient was found at the bottom of the stairs face down, according the daughter loss known well 2 weeks ago, patient states he took a fall about 2 weeks ago only history of gout and cancer in the triage notes. Upon arrival of the EMS patient's blood sugar was 159, systolic BP in the 50s. Patient was given IV fluids and brought to the ED on 10/17/2024. According the records patient lives at home independently. He did state that he struck his head and reported loss of consciousness. In the ER he denies any headaches, neck pain, nausea, vomiting, diarrhea, fever, chills. In the ER no leukocytosis, hemoglobin of 9.1, INR 1.2. Sodium 150 have, potassium 2.9, creatinine 3.0 initial troponins were negative. BNP 433. Procalcitonin 2.5, lactic acid 3.5. Repeat lactic was 1.9. CK levels of 5864. UA not consistent with UTI. Urine drug screen was negative. Influenza, RSV and COVID-19 PCR was negative. -10/17: CT brain: No acute intracranial process, age-related changing secondary to chronic small-vessel ischemic disease -10/17: Chest x-ray with no acute cardiopulmonary disease -10/17: CT scan of the chest/abdomen/pelvis: No hollow or solid organ injury, no acute fractures Patient was given 3 L IV fluids and transferred to the ICU for further management Patient seen and examined the ICU this morning, patient is awake, confused, nods, follows simple commands but unable to answer questions. Mumbles words. Patient off Levophed remains sodium bicarb infusion, adequate urine output, afebrile, adequate O2 sats on room air. Patient dropped his hemoglobin to 6.2 and platelet count to 62 this morning Review of Systems 2 Review of Systems: ROS unobtainable: Yes unobtainable due to medical condition and unobtainable due to mental status PMFSH Past Medical History Medical History (Updated 10/18/24 @ 11:31 by Linda Lomeli MD) Cancer Gout Social History Social History Spiritual care concerns: No Meds Home Medications and Allergies Allergies Allergy/AdvReac Type Severity Reaction Status Date / Time Penicillins Allergy Unknown Verified 10/18/24 07:38 Vital Signs Vital Signs - 24 hr 10/17/24 10:38 10/17/24 10:45 10/17/24 10:46 Temperature 91.8 F L 91.8 F L 91.8 F L Pulse Rate 61 61 Respiratory Rate 24 H 25 H Blood Pressure 80/54 L Pulse Oximetry 100 Oxygen Delivery Fraction of Inspired Oxygen 10/17/24 10:50 10/17/24 10:51 10/17/24 11:01 Temperature 92 F L 92.0 F L 92.2 F L Pulse Rate 61 62 63 Respiratory Rate 24 H 31 H 30 H Blood Pressure 80/54 L 78/54 L 94/62 L Pulse Oximetry 100 99 98 Oxygen Delivery Fraction of Inspired Oxygen 10/17/24 11:08 10/17/24 11:11 10/17/24 11:21 Temperature 92.8 F L 92.5 F L 92.8 F L Pulse Rate 63 Respiratory Rate 26 H 31 H Blood Pressure 106/66 97/61 L Pulse Oximetry 98 Oxygen Delivery Fraction of Inspired Oxygen 10/17/24 11:30 10/17/24 11:30 10/17/24 11:31 Temperature 93.5 F L 93.0 F L 93.0 F L Pulse Rate 66 Respiratory Rate 33 H 31 H Blood Pressure 87/58 L Pulse Oximetry 98 99 Oxygen Delivery Fraction of Inspired Oxygen 10/17/24 11:41 10/17/24 11:45 10/17/24 11:51 Temperature 93.6 F L 93.8 F L 94.0 F L Pulse Rate 69 68 Respiratory Rate 32 H 27 H 32 H Blood Pressure 88/66 L 83/56 L Pulse Oximetry Oxygen Delivery Fraction of Inspired Oxygen 10/17/24 12:00 10/17/24 12:00 10/17/24 12:01 Temperature 93.8 F L 94.4 F L 94.5 F L Pulse Rate 71 71 Respiratory Rate 30 H 35 H Blood Pressure 86/65 L Pulse Oximetry Oxygen Delivery Fraction of Inspired Oxygen 10/17/24 12:11 10/17/24 12:15 10/17/24 12:21 Temperature 94.9 F L 95.0 F L 95.3 F L Pulse Rate 71 74 75 Respiratory Rate 30 H 34 H 35 H Blood Pressure 73/52 L 92/63 L Pulse Oximetry Oxygen Delivery Fraction of Inspired Oxygen 10/17/24 12:30 10/17/24 12:30 10/17/24 12:31 Temperature 95.9 F L 95.6 F L 95.7 F L Pulse Rate 76 76 Respiratory Rate 35 H 35 H Blood Pressure 67/51 L Pulse Oximetry Oxygen Delivery Fraction of Inspired Oxygen 10/17/24 12:41 10/17/24 12:45 10/17/24 12:51 Temperature 96.0 F L 96.2 F L 96.4 F L Pulse Rate 77 77 80 Respiratory Rate 35 H 31 H 37 H Blood Pressure 76/55 L 77/61 L Pulse Oximetry Oxygen Delivery Fraction of Inspired Oxygen 10/17/24 13:00 10/17/24 13:00 10/17/24 13:01 Temperature 97.1 F L 96.7 F L 96.8 F L Pulse Rate 81 79 Respiratory Rate 36 H 36 H Blood Pressure 70/50 L Pulse Oximetry 100 100 Oxygen Delivery Fraction of Inspired Oxygen 10/17/24 13:05 10/17/24 14:16 10/17/24 14:21 Temperature 96.9 F L 98.2 F Pulse Rate 83 85 86 Respiratory Rate 36 H 32 H Blood Pressure 88/61 L 88/60 L 79/51 L Pulse Oximetry 100 99 Oxygen Delivery Fraction of Inspired Oxygen 10/17/24 14:48 10/17/24 15:31 10/17/24 16:02 Temperature 98.2 F Pulse Rate 83 80 80 Respiratory Rate 32 H 30 H Blood Pressure 102/61 92/60 L 117/66 Pulse Oximetry 98 98 Oxygen Delivery Fraction of Inspired Oxygen 10/17/24 16:30 10/17/24 16:49 10/17/24 17:00 Temperature 97.8 F 97.8 F Pulse Rate 82 80 Respiratory Rate 27 H 32 H Blood Pressure 106/67 104/69 Pulse Oximetry 100 100 Oxygen Delivery Room Air Fraction of Inspired Oxygen 10/17/24 18:00 10/17/24 18:00 10/17/24 18:48 Temperature 97.6 F Pulse Rate 79 79 75 Respiratory Rate 23 H Blood Pressure 113/77 129/74 Pulse Oximetry 100 Oxygen Delivery Fraction of Inspired Oxygen 10/17/24 19:01 10/17/24 19:15 10/17/24 19:31 Temperature 97.1 F L 97.1 F L 97.0 F L Pulse Rate 79 80 78 Respiratory Rate 21 H 30 H 27 H Blood Pressure 115/73 120/72 125/73 Pulse Oximetry 100 100 100 Oxygen Delivery Fraction of Inspired Oxygen 10/17/24 19:46 10/17/24 19:56 10/17/24 20:00 Temperature 97.0 F L Pulse Rate 77 76 76 Respiratory Rate 28 H Blood Pressure 124/73 124/73 119/71 Pulse Oximetry 100 Oxygen Delivery Fraction of Inspired Oxygen 10/17/24 20:00 10/17/24 20:00 10/17/24 20:01 Temperature 96.9 F L Pulse Rate 74 Respiratory Rate 14 Blood Pressure 119/71 Pulse Oximetry 100 Oxygen Delivery Room Air Fraction of Inspired Oxygen 10/17/24 20:15 10/17/24 20:15 10/17/24 20:18 Temperature 96.8 F L Pulse Rate 79 94 76 Respiratory Rate 20 20 Blood Pressure 104/75 Pulse Oximetry 100 100 Oxygen Delivery Room Air Fraction of Inspired Oxygen 10/17/24 20:30 10/17/24 20:31 10/17/24 20:45 Temperature 96.7 F L Pulse Rate 78 77 Respiratory Rate 5 L Blood Pressure 114/70 114/70 108/70 Pulse Oximetry 100 Oxygen Delivery Fraction of Inspired Oxygen 10/17/24 20:46 10/17/24 21:00 10/17/24 21:01 Temperature 96.7 F L 96.6 F L Pulse Rate 77 77 Respiratory Rate 26 H 28 H Blood Pressure 108/70 96/59 L 96/59 L Pulse Oximetry 100 100 Oxygen Delivery Fraction of Inspired Oxygen 10/17/24 21:15 10/17/24 21:16 10/17/24 21:30 Temperature 96.6 F L Pulse Rate 77 76 Respiratory Rate 23 H Blood Pressure 94/61 L 94/61 L 115/74 Pulse Oximetry 100 Oxygen Delivery Fraction of Inspired Oxygen 10/17/24 21:31 10/17/24 21:45 10/17/24 21:46 Temperature 96.6 F L 96.6 F L Pulse Rate 77 76 76 Respiratory Rate 28 H 27 H Blood Pressure 115/74 105/66 105/66 Pulse Oximetry 100 100 Oxygen Delivery Fraction of Inspired Oxygen 10/17/24 22:00 10/17/24 22:00 10/17/24 22:00 Temperature 96.6 F L Pulse Rate 72 75 75 Respiratory Rate 28 H Blood Pressure 105/63 105/63 Pulse Oximetry 100 Oxygen Delivery Fraction of Inspired Oxygen 10/17/24 22:15 10/17/24 22:16 10/17/24 22:30 Temperature 96.7 F L Pulse Rate 78 76 77 Respiratory Rate 25 H Blood Pressure 91/56 L 91/56 L 92/68 L Pulse Oximetry Oxygen Delivery Fraction of Inspired Oxygen 10/17/24 22:31 10/17/24 22:45 10/17/24 22:46 Temperature 96.7 F L 96.7 F L Pulse Rate 78 77 Respiratory Rate 30 H 30 H Blood Pressure 92/68 L 97/58 L 97/58 L Pulse Oximetry 100 100 Oxygen Delivery Fraction of Inspired Oxygen 10/17/24 23:00 10/17/24 23:00 10/17/24 23:15 Temperature 96.8 F L Pulse Rate 76 77 75 Respiratory Rate 28 H Blood Pressure 90/59 L 90/59 L 85/55 L Pulse Oximetry 100 Oxygen Delivery Fraction of Inspired Oxygen 10/17/24 23:15 10/17/24 23:30 10/17/24 23:30 Temperature 96.8 F L 96.9 F L Pulse Rate 75 73 73 Respiratory Rate 29 H 24 H Blood Pressure 85/55 L 114/65 114/65 Pulse Oximetry 100 100 Oxygen Delivery Fraction of Inspired Oxygen 10/17/24 23:45 10/17/24 23:46 10/18/24 00:00 Temperature 96.9 F L Pulse Rate 73 73 Respiratory Rate 27 H Blood Pressure 108/65 108/65 Pulse Oximetry 100 Oxygen Delivery Room Air Fraction of Inspired Oxygen 10/18/24 00:00 10/18/24 00:00 10/18/24 00:02 Temperature 96.9 F L Pulse Rate 73 72 72 Respiratory Rate 28 H Blood Pressure 108/66 108/66 Pulse Oximetry 100 Oxygen Delivery Fraction of Inspired Oxygen 10/18/24 00:15 10/18/24 00:19 10/18/24 00:30 Temperature 96.9 F L Pulse Rate 72 74 73 Respiratory Rate 28 H Blood Pressure 107/64 107/64 107/64 Pulse Oximetry 100 Oxygen Delivery Fraction of Inspired Oxygen 10/18/24 00:31 10/18/24 01:16 10/18/24 01:30 Temperature 96.9 F L 97.0 F L Pulse Rate 74 76 76 Respiratory Rate 24 H 26 H Blood Pressure 107/64 109/66 111/67 Pulse Oximetry 100 100 Oxygen Delivery Fraction of Inspired Oxygen 10/18/24 01:31 10/18/24 01:45 10/18/24 01:46 Temperature 97.0 F L 97.0 F L Pulse Rate 75 76 78 Respiratory Rate 26 H 28 H Blood Pressure 111/67 103/57 L 103/57 L Pulse Oximetry 100 100 Oxygen Delivery Fraction of Inspired Oxygen 10/18/24 02:00 10/18/24 02:00 10/18/24 02:00 Temperature 97.1 F L Pulse Rate 77 77 77 Respiratory Rate 29 H Blood Pressure 98/58 L 98/58 L Pulse Oximetry 100 Oxygen Delivery Fraction of Inspired Oxygen 10/18/24 02:15 10/18/24 02:15 10/18/24 02:30 Temperature 97.1 F L 97.2 F L Pulse Rate 76 76 76 Respiratory Rate 28 H 26 H Blood Pressure 102/62 102/62 101/60 Pulse Oximetry 100 100 Oxygen Delivery Fraction of Inspired Oxygen 10/18/24 02:30 10/18/24 02:45 10/18/24 04:00 Temperature 97.2 F L Pulse Rate 76 74 Respiratory Rate 27 H Blood Pressure 101/60 96/60 L Pulse Oximetry 100 Oxygen Delivery Room Air Fraction of Inspired Oxygen 10/18/24 04:00 10/18/24 04:00 10/18/24 04:00 Temperature 97.3 F L Pulse Rate 59 L 59 L 75 Respiratory Rate 12 Blood Pressure 105/77 105/77 Pulse Oximetry 98 Oxygen Delivery Fraction of Inspired Oxygen 10/18/24 05:45 10/18/24 06:00 10/18/24 06:00 Temperature 97.5 F L Pulse Rate 76 76 76 Respiratory Rate 28 H Blood Pressure 104/62 99/57 L 99/57 L Pulse Oximetry 100 Oxygen Delivery Fraction of Inspired Oxygen 10/18/24 06:00 10/18/24 06:15 10/18/24 06:30 Temperature 97.6 F 97.7 F Pulse Rate 76 77 79 Respiratory Rate 26 H 23 H Blood Pressure 95/57 L 109/67 Pulse Oximetry 100 100 Oxygen Delivery Fraction of Inspired Oxygen 10/18/24 06:45 10/18/24 07:00 10/18/24 07:15 Temperature 97.7 F 97.7 F 97.8 F Pulse Rate 80 77 75 Respiratory Rate 23 H 26 H 18 Blood Pressure 115/62 97/64 L 94/55 L Pulse Oximetry 100 100 100 Oxygen Delivery Fraction of Inspired Oxygen 10/18/24 07:30 10/18/24 08:00 10/18/24 08:00 Temperature 98.0 F 97.9 F Pulse Rate 82 75 75 Respiratory Rate 22 H 29 H Blood Pressure 97/58 L 103/60 Pulse Oximetry 100 100 Oxygen Delivery Fraction of Inspired Oxygen 10/18/24 08:00 10/18/24 08:00 10/18/24 08:30 Temperature 98.0 F Pulse Rate 75 73 Respiratory Rate 28 H Blood Pressure 103/60 90/56 L Pulse Oximetry 100 100 Oxygen Delivery Room Air Fraction of Inspired Oxygen 10/18/24 09:30 10/18/24 10:00 10/18/24 10:00 Temperature 97.8 F 97.7 F Pulse Rate 73 71 70 Respiratory Rate 26 H 28 H Blood Pressure 109/78 99/59 L Pulse Oximetry 100 100 Oxygen Delivery Fraction of Inspired Oxygen 10/18/24 10:00 Temperature Pulse Rate 71 Respiratory Rate Blood Pressure 99/59 L Pulse Oximetry Oxygen Delivery Fraction of Inspired Oxygen Exam 2 Narrative: General: ill-appearing gentleman, currently in no acute distress HEENT:? Pupils equal and reactive, sclerae is clear, bad dentition, moist oral mucosa, facial swelling noted Neck:? Supple Respiratory:? Clear to auscultation bilaterally, no wheezing, adequate air entry, decreased at bases Cardiac:? S1-S2 is normal, regular rate and rhythm Abdomen:? Soft, nontender, nondistended, hypoactive bowel sounds Extremities:? No edema, palpable pedal pulses Neuro:? Patient is awake, confused, nods to questions, able to follow commands in all extremities Skin:? Warm and dry Psych:? Confused Results Labs 10/18/24 03:54 10/18/24 03:54 Labs: Short CBC 10/18/24 Range/Units 03:54 WBC 9.8 (4.5-10.0) K/mm3 Hgb 6.2 L* (14.0-18.0) g/dL Hct 19.1 L* (42.0-52.0) % Plt Count 62 L (150-375) k/mm3 BMP 10/17/24 10/17/24 10/18/24 15:26 22:16 03:54 Sodium 154 H 155 H 156 H Potassium 3.0 L 3.1 L 3.3 L Chloride 121 H 118 H 119 H Carbon Dioxide 15 L 18 L 21 L BUN 70 H 70 H 67 H Creatinine 2.97 H 2.99 H 2.90 H Glucose 102 127 H 114 H Calcium 7.2 L 6.9 L 6.6 L Cardiac Enzymes 10/17/24 10/18/24 Range/Units 11:43 03:54 Total Creatine Kinase 8292 H (55-170) U/L Troponin I < 0.012 (0.000-0.034) ng/mL Liver Function 10/18/24 Range/Units 03:54 Total Bilirubin 1.3 (0.2-1.3) mg/dL AST 168 H (17-59) U/L ALT 40 (6-50) U/L Alkaline Phosphatase 49 (38-126) U/L Albumin 2.9 L (3.5-5.1) g/dL Quality VTE Prophylaxis VTE prophylaxis: mechanical ordered If No VTE Prophylaxis Answer both mechanical and pharmacologic: Reason no mechanical VTE proph: medical contraindication Hospitalist MIPS Advance Care Plan I have confirmed that the patient's Advanced Care Plan is present, code status is documented, or surrogate decision maker is listed in patient medical record.: Yes Medication Reconciliation I have utilized all available resources to obtain, update and review the patients current medications (includes all prescriptions, OTC, herbals, cannabis, and nutritional supplements).: Yes
[2024-10-18 11:52] LABS: Urine Eos QC 2nd Tech Confirmed
[2024-10-18] MEDS: LACTATED RINGERS 500 ML IV CONT (12:04)
--- NOTE | 2024-10-18 13:20 | P.CONNP_ITS ---
Assessment and Plan Assessment and plan (1) Acute kidney injury: Code(s): N17.9 - Acute kidney failure, unspecified Status: Acute Assessment and Plan: * as noted by admision labs * creatinine 1.0mg/l in October 2023 (from [facility] labs) * suspect multifactorial: * hemodynamic instability/shock * prerenal factors/hypovolemia * rhabodmyolysis * infection (although no evidence to date) * other(?) * s/p aggressive IVF resuscitation * was on bicarb fluids previously * evaluation to date noted: * CT scan without evidence of obstruction * urine eosinophils negative * elevated CPK noted - follow trend * urine electrolytes prerenal * UA negative for infection * agree with 1/2 NS IVFs (to provide volume and free water) * follow repeat labs and UOP (2) Hypernatremia: Code(s): E87.0 - Hyperosmolality and hypernatremia Status: Acute Assessment and Plan: * sodium normal by October 2023 labs * presumably due to significant free water deficit * getting 1/2NS IVF which should provide some free water * may need to consider D5W IVFs as well * if unable to take oral intake, may need NG or doboff placement and start free water flushes * follow trend of repeat sodium levels (3) Rhabdomyolysis: Qualifiers: Encounter type: initial encounter Rhabdomyolysis type: traumatic Q ualified Code(s): T79.6XXA - Traumatic ischemia of muscle, initial encounter Code(s): M62.82 - Rhabdomyolysis Status: Acute Assessment and Plan: * noted admission CPK * CPK trending up * presumably due to being down on ground for unknown period of time * ongoing IVF resuscitation * follow trend of CPK (4) Shock: Code(s): R57.9 - Shock, unspecified Status: Acute Assessment and Plan: * as noted on presentation * s/p aggressive IVF resuscitation and vasopressor therapy * weaned off levophed gtt this AM * suspect due to severe volume depletion but cannot discount early sepsis * however, no source of infection noted at this time * follow culture - negative to date * holding off on further antibiotics * follow trend of hemodynamics (5) Anemia: Code(s): D64.9 - Anemia, unspecified Status: Acute Assessment and Plan: * drop in H/H noted this AM * from 9.1 to 6.2 * PRBC transfusion per protocol * checking stool guaiac * check anemia studies * follow trend of H/H (6) Thrombocytopenia: Code(s): D69.6 - Thrombocytopenia, unspecified Status: Acute Assessment and Plan: * etiology? * low on presentation and worse by AM labs * given low H/H, platelet transfusion today * follow trend (7) Altered mental status: Qualifiers: Altered mental status type: disorientation Qualified Code(s): R41.0 - Disorientation, unspecified Code(s): R41.82 - Altered mental status, unspecified Status: Acute Assessment and Plan: * as noted on admission and currently * suspect due to acute illness - shock, ALEJANDRO/ARF, rhabdomyolysis...etc * CT of brain negative * MRI of brain ordered (to r/o CVA/stroke) * follow mentation (8) Fall (on) (from) other stairs and steps, initial encounter: Code(s): W10.8XXA - Fall (on) (from) other stairs and steps, initial encounter Status: Acute Assessment and Plan: * presumed based on history... * found on the ground face down * unknown duration and etiology * Echo ordered * continue supportive therapy I will continue to follow the patient with you while he remains hospitalized and make further recommendations as deemed necessary. Thank you for allowing me to participate in the care of this patient. L History of Present Illness Reason for Consult Consult date: 10/18/24 Reason for consult: acute renal failure and hypernatremia Chief Complaint Chief complaint: Rhabdomyolysis, acute kidney injury altered mental History of Present Illness Narrative: Almost all the information I obtained is from review of the electronic medical record as well as discussion with the physician / nurses involved in the patient's care as the patient is unable provide much history due to his current altered mental status. The patient is a 69-year-old male with a past medical history as outlined below who presented to [facility] Emergency Room after being down the ground at home presumably after a fall. Apparently, the patient's daughter went to see the patient and found him at the bottom of the stairs face down. It is not entirely clear if and when the patient fell and when it occurred and according to the patient's daughter, he was last known to be in his usual state of health approximately 2 weeks ago. The patient apparently lives at home independently. She immediately called 911 and on EMS assessment he was noted be quite hypotensive with a systolic BP in the 50s. IV fluids were initiated and he was subsequently transported to the emergency room for further assessment. Upon arrival to the emergency room, the patient was able to answer some simple questions and reported that he did hit his head and thinks that he might have lost consciousness but he was not sure. He gave no complaints of headaches, neck pain, nausea, vomiting, diarrhea, fever, chills, chest pain, shortness of breath, dizziness, or lightheadedness. routine blood test demonstrated a normal white blood cell count, hemoglobin 9.1, normal coagulation studies, sodium 150, potassium 2.9, creatinine 3.0 lactic acid 3.5, procalcitonin 2 point, BNP of 4 3 3 normal troponins, and a CPK 5864. His UA was not consistent with urinary tract infection and urine drug screen was negative. Viral testing for influenza, RSV, and COVID-[address] scan of the brain showed no acute intracranial process and a subsequent CT scan of the chest/abdomen /pelvis did not demonstrate any acute pathology either. His chest x-ray was negative as well. Given his ongoing hypotension in the emergency room, he received aggressive IV fluid resuscitation an attempt to optimize his mean arterial pressure but did require initiation of vasopressor therapy. He was subsequently admitted to the intensive care unit for further evaluation and therapy. Since his admission to the ICU, vasopressor therapy has been weaned and he was on bicarb IV fluids for his acidosis and presumed rhabdomyolysis. He remains confused but able to answer simple questions. His IV fluids have been adjusted given his ongoing hypernatremia and was noted that his hemoglobin and hematocrit as well as platelet count of dropped by morning labs and is currently receiving a packed red blood cell transfusion. Renal consultation was requested due to his acute kidney injury/acute renal failure in association with his hypernatremia. From review his outpatient labs done at least a year ago, his kidney function was normal as was his sodium level. Since his admission, his sodium level has remained relatively stable if not improved current IV fluids and his renal function/creatinine appears to be slowly improving although his CPK has worsened to 8292. He continues to make reasonable urine output at this. Currently appears to be in no acute distress but only mumbles answers to questions asked of him. Review of Systems 2 Review of Systems: As per HPI. [facility] Past Medical History Medical History (Updated 10/18/24 @ 11:31 by Linda Lomeli MD) Cancer Gout Social History Social History Smoking packs per day: 0.3 Smoking cigarettes per day: 6.0 Smoking status: Former smoker Additional smoking assessment comments: unknown when quit Spiritual care concerns: No Meds Home Medications and Allergies Home Medications ?Medication ?Instructions ?Recorded ?Confirmed ?Type allopurinol 100 mg tablet 100 mg PO DAILY 10/18/24 10/18/24 History amlodipine 10 mg tablet 10 mg PO DAILY 10/18/24 10/18/24 History aspirin 81 mg tablet,delayed 81 mg PO DAILY 10/18/24 10/18/24 History release carvedilol 12.5 mg tablet 12.5 mg PO BID 10/18/24 10/18/24 History rosuvastatin 10 mg tablet 10 mg PO DAILY 10/18/24 10/18/24 History Allergies Allergy/AdvReac Type Severity Reaction Status Date / Time lisinopril Allergy Severe angioedema Verified 10/18/24 13:19 fenofibrate Allergy Intermediate hives Verified 10/18/24 13:19 Penicillins Allergy hives Verified 10/18/24 13:19 Vital Signs Vital Signs Temp Pulse Resp BP Pulse Ox O2 Del Method FiO2 10/18/24 13:11 96.5 F L 68 26 H 117/67 100 10/18/24 12:11 96.6 F L 67 24 H 117/71 10/18/24 12:00 68 10/18/24 12:00 100 Room Air 10/18/24 12:00 69 111/65 10/18/24 12:00 96.9 F L 68 19 111/65 100 10/18/24 11:56 96.9 F L 68 28 H 106/64 100 10/18/24 11:29 97.2 F L 70 28 H 111/66 10/18/24 11:09 97.3 F L 70 26 H 100/62 100 10/18/24 10:49 97.5 F L 28 L 100 H 104/61 100 10/18/24 10:48 97.7 F 69 28 H 105/64 100 10/18/24 10:00 71 99/59 L 10/18/24 10:00 70 10/18/24 10:00 97.7 F 71 28 H 99/59 L 100 10/18/24 09:30 97.8 F 73 26 H 109/78 100 10/18/24 08:30 98.0 F 73 28 H 90/56 L 100 10/18/24 08:00 75 103/60 10/18/24 08:00 100 Room Air 10/18/24 08:00 75 10/18/24 08:00 97.9 F 75 29 H 103/60 100 10/18/24 07:30 98.0 F 82 22 H 97/58 L 100 10/18/24 07:15 97.8 F 75 18 94/55 L 100 10/18/24 07:00 97.7 F 77 26 H 97/64 L 100 10/18/24 06:45 97.7 F 80 23 H 115/62 100 10/18/24 06:30 97.7 F 79 23 H 109/67 100 10/18/24 06:15 97.6 F 77 26 H 95/57 L 100 10/18/24 06:00 76 10/18/24 06:00 97.5 F L 76 28 H 99/57 L 100 10/18/24 06:00 76 99/57 L 10/18/24 05:45 76 104/62 10/18/24 04:00 75 10/18/24 04:00 59 L 105/77 10/18/24 04:00 97.3 F L 59 L 12 105/77 98 10/18/24 04:00 Room Air 10/18/24 02:45 97.2 F L 74 27 H 96/60 L 100 10/18/24 02:30 76 101/60 10/18/24 02:30 97.2 F L 76 26 H 101/60 100 10/18/24 02:15 76 102/62 10/18/24 02:15 97.1 F L 76 28 H 102/62 100 10/18/24 02:00 97.1 F L 77 29 H 98/58 L 100 10/18/24 02:00 77 10/18/24 02:00 77 98/58 L 10/18/24 01:46 97.0 F L 78 28 H 103/57 L 100 10/18/24 01:45 76 103/57 L 10/18/24 01:31 97.0 F L 75 26 H 111/67 100 10/18/24 01:30 76 111/67 10/18/24 01:16 97.0 F L 76 26 H 109/66 100 10/18/24 00:31 96.9 F L 74 24 H 107/64 100 10/18/24 00:30 73 107/64 10/18/24 00:19 96.9 F L 74 28 H 107/64 100 10/18/24 00:15 72 107/64 10/18/24 00:02 96.9 F L 72 28 H 108/66 100 10/18/24 00:00 72 10/18/24 00:00 73 108/66 10/18/24 00:00 Room Air 10/17/24 23:46 96.9 F L 73 27 H 108/65 100 10/17/24 23:45 73 108/65 10/17/24 23:30 73 114/65 10/17/24 23:30 96.9 F L 73 24 H 114/65 10/17/24 23:15 96.8 F L 75 29 H 85/55 L 10/17/24 23:15 75 85/55 L 10/17/24 23:00 96.8 F L 77 28 H 90/59 L 10/17/24 23:00 76 90/59 L 10/17/24 22:46 96.7 F L 30 H 97/58 L 100 10/17/24 22:45 77 97/58 L 10/17/24 22:31 96.7 F L 78 30 H 92/68 L 10/17/24 22:30 77 92/68 L 10/17/24 22:16 96.7 F L 76 25 H 91/56 L 10/17/24 22:15 78 91/56 L 10/17/24 22:00 75 10/17/24 22:00 96.6 F L 75 28 H 105/63 100 10/17/24 22:00 72 105/63 10/17/24 21:46 96.6 F L 76 27 H 105/66 100 10/17/24 21:45 76 105/66 10/17/24 21:31 96.6 F L 77 28 H 115/74 100 10/17/24 21:30 76 115/74 10/17/24 21:16 96.6 F L 23 H 94/61 L 100 10/17/24 21:15 77 94/61 L 10/17/24 21:01 96.6 F L 28 H 96/59 L 100 10/17/24 21:00 77 96/59 L 10/17/24 20:46 96.7 F L 77 26 H 108/70 100 10/17/24 20:45 77 108/70 10/17/24 20:31 96.7 F L 5 L 114/70 100 10/17/24 20:30 78 114/70 10/17/24 20:18 76 20 100 Room Air 21 10/17/24 20:15 96.8 F L 94 20 100 10/17/24 20:15 79 104/75 10/17/24 20:01 96.9 F L 14 119/71 100 10/17/24 20:00 74 10/17/24 20:00 Room Air 10/17/24 20:00 76 119/71 10/17/24 19:56 76 124/73 10/17/24 19:46 97.0 F L 77 28 H 124/73 100 10/17/24 19:31 97.0 F L 78 27 H 125/73 100 10/17/24 19:15 97.1 F L 80 30 H 120/72 100 10/17/24 19:01 97.1 F L 79 21 H 115/73 100 10/17/24 18:48 75 129/74 10/17/24 18:00 79 10/17/24 18:00 97.6 F 79 23 H 113/77 100 10/17/24 17:00 97.8 F 80 32 H 104/69 100 10/17/24 16:49 Room Air 10/17/24 16:30 97.8 F 82 27 H 106/67 100 10/17/24 16:02 98.2 F 80 30 H 117/66 98 Exam 2 Narrative: GENERAL APPEARANCE: elderly male in no acute distress HEENT: normocephalic, atraumatic, normal conjunctiva and sclera, nares patient NECK: no lymphadenopathy, thyromegaly, or JVD MOUTH: normal lips, teeth, and gums CARDIOVASCULAR: RRR, normal S1 and S2, no rub RESPIRATORY: clear to auscultation bilaterally ABDOMEN: soft, nontender, nondistended, positive bowel sounds present EXTREMITIES: no evidence of cyanosis, clubbing, or edema NEUROLOGICAL: awake but confused; responds to simple questions and follows commands Results Lab Results 10/19/24 05:24 10/19/24 05:24 Lab results: Most recent lab results ABG pH 7.422 (7.350-7.450) 10/17/24 08:52 ABG pCO2 28.8 mmHg (35.0-45.0) L 10/17/24 08:52 ABG pO2 126.5 mmHg (80.0-100.0) H 10/17/24 08:52 ABG HCO3 18.3 mEq/l (22.0-26.0) L 10/17/24 08:52 ABG O2 Saturation 98.6 % (95.0-100.0) 10/17/24 08:52 Calcium 6.7 mg/dL (8.4-10.2) L 10/18/24 14:52 Phosphorus 3.5 mg/dL (2.5-4.5) 10/18/24 14:52 Magnesium 1.8 mg/dL (1.6-2.3) 10/18/24 14:52 Urine Creatinine 85.9 mg/dL 10/18/24 11:18
--- NOTE | 2024-10-18 13:25 | PC.NURSE ---
received some information from primary doctors office ([facility]), last visit was from 2023; Dr. Lomeli notified; med list, med history, and allergies updated from that information also received fax from [facility] that patient has not been seen there since 2004
[2024-10-18 15:11] LABS: Hematocrit 26.5 % (42.0-52.0); Hemoglobin 8.7 g/dL (14.0-18.0); Immature Platelet Fraction Pct 3.1 % (0.9-11.2); Mean Corpuscular HGB Conc 32.8 g/dl (32-36); Mean Corpuscular Hemoglobin 31.6 pg (26-34); Mean Corpuscular Volume 96.4 fl (80-100); Platelet Count Result 75 k/mm3 (150-375); Red Blood Count 2.75 M/mm3 (4.6-6.20); White Blood Count 7.9 K/mm3 (4.5-10.0)
[2024-10-18 15:21] LABS: Alanine Aminotransferase 37 U/L (6-50); Albumin Level 3.2 g/dL (3.5-5.1); Alkaline Phosphatase 47 U/L (38-126); Anion Gap 14 mmol/L (4-12); Aspartate Amino Transferase 137 U/L (17-59); Bilirubin,Total 1.7 mg/dL (0.2-1.3); Blood Urea Nitrogen 63 mg/dL (9-20); Calcium 6.7 mg/dL (8.4-10.2); Carbon Dioxide 22 mmol/L (22-30); Chloride 118 mmol/L (98-107); Estimated CRCL calculation 22 ml/min; Estimated Glomerular Filt Rate 24; Glucose 113 mg/dL (65-110); Magnesium 1.8 mg/dL (1.6-2.3); Potassium 3.1 mmol/L (3.4-5.0); Sodium 154 mmol/L (137-145); Total Protein 6.0 g/dL (6.3-8.2)
[2024-10-18 15:46] LABS: Iron 55 ug/dL (49-181)
[2024-10-18 15:56] LABS: Percent Iron Saturation 37 % (20-50)
[2024-10-18] MEDS: KCL 40 MEQ/WATER 100 ML 100 ML 25 ML IVPB (17:00)
[2024-10-18] MEDS: CALCIUM GLUC 2,000 MG/NS 100ML 2,000 MG/100 ML BAG 100 MG IVPB (17:26)
[2024-10-18 18:11] LABS: Procalcitonin 3.6 ng/mL
[2024-10-18 21:53] LABS: Anion Gap 11 mmol/L (4-12); Blood Urea Nitrogen 61 mg/dL (9-20); Calcium 7.1 mg/dL (8.4-10.2); Carbon Dioxide 22 mmol/L (22-30); Chloride 119 mmol/L (98-107); Estimated CRCL calculation 22 ml/min; Estimated Glomerular Filt Rate 24; Glucose 103 mg/dL (65-110); Potassium 3.7 mmol/L (3.4-5.0); Sodium 152 mmol/L (137-145)
[2024-10-19] VITALS (12 sets, daily range): BP systolic 117–142; BP diastolic 67–84; PULSE 61–70; RESP 20–25; TEMP 35.7–36.7; O2SAT 100
[2024-10-19 00:01] LABS: Vitamin B12 979.0 pg/mL (239-931)
[2024-10-19] MEDS: SODIUM CHLORIDE 0.45% 1,000 ML 125 ML IV CONT ×2 (00:53→09:28)
[2024-10-19 02:09] LABS: Anion Gap 12 mmol/L (4-12); Blood Urea Nitrogen 61 mg/dL (9-20); Calcium 7.0 mg/dL (8.4-10.2); Carbon Dioxide 21 mmol/L (22-30); Chloride 119 mmol/L (98-107); Estimated CRCL calculation 23 ml/min; Estimated Glomerular Filt Rate 24; Glucose 106 mg/dL (65-110); Potassium 3.6 mmol/L (3.4-5.0); Sodium 152 mmol/L (137-145)
[2024-10-19 05:35] LABS: Hematocrit 28.6 % (42.0-52.0); Hemoglobin 9.5 g/dL (14.0-18.0); Immature Granulocyte Percent A 1.3 % (0-0.5); Immature Platelet Fraction Pct 3.1 % (0.9-11.2); Lymphocytes Absolute Auto 1.77 K/mm3 (0.9-3.2); Mean Corpuscular HGB Conc 33.2 g/dl (32-36); Mean Corpuscular Hemoglobin 31.8 pg (26-34); Mean Corpuscular Volume 95.7 fl (80-100); Nucleated Red Blood Cells Absolute Auto 0.030 K/mm3 (0.0-0.012); Nucleated Red Blood Cells Perc 0.4 % (0.0-0.2); Platelet Count Result 64 k/mm3 (150-375); Red Blood Count 2.99 M/mm3 (4.6-6.20); White Blood Count 8.6 K/mm3 (4.5-10.0)
[2024-10-19 05:52] LABS: Alanine Aminotransferase 37 U/L (6-50); Albumin Level 2.8 g/dL (3.5-5.1); Alkaline Phosphatase 56 U/L (38-126); Anion Gap 12 mmol/L (4-12); Aspartate Amino Transferase 116 U/L (17-59); Bilirubin,Total 1.8 mg/dL (0.2-1.3); Blood Urea Nitrogen 62 mg/dL (9-20); Calcium 7.0 mg/dL (8.4-10.2); Carbon Dioxide 21 mmol/L (22-30); Chloride 119 mmol/L (98-107); Estimated CRCL calculation 24 ml/min; Estimated Glomerular Filt Rate 25; Glucose 105 mg/dL (65-110); Magnesium 1.7 mg/dL (1.6-2.3); Potassium 3.7 mmol/L (3.4-5.0); Sodium 152 mmol/L (137-145); Total Protein 5.0 g/dL (6.3-8.2)
[2024-10-19] MEDS: CENTRAL LINE FLUSH 10 ML IV PUSH ×3 (06:00→20:25)
[2024-10-19 06:01] LABS: Band Neutrophils Percent 0 % (0-6); Burr Cells 1+; Ovalocytes 1+; Schistocytes None Seen; Target Cells 1+
[2024-10-19 06:01] LABS: IFOB Positive Control Positive; Immunochemical Fecal Occult Bl Negative (N)
[2024-10-19 06:54] LABS: Creatine Kinase 5758 U/L (55-170)
[2024-10-19] MEDS: PANTOPRAZOLE SODIUM IV 40 MG VIAL IV PUSH ×2 (07:51→20:25)
--- NOTE | 2024-10-19 08:42 | P.PNINT_ITS ---
Progress Note: A&P Assessment and Plan (1) Shock: Code(s): R57.9 - Shock, unspecified Status: Acute Assessment and Plan: 10/17: And EMS arrive patient's house he was found face down with, hypotensive with systolic in the 50s, patient given IV fluids in the ER, central line inserted, started on Levophed -off Levophed since the morning of 10/18 -procalcitonin levels are at high -patient was started on cefepime and vancomycin which was discontinued since there was no nidus of infection -MRSA screen is negative, -10/17: Blood cultures negative-so far -no nidus of infection on either chest x-ray, CT chest abdomen and pelvis, UA was clear, -10/19: given low body temperature, elevated procalcitonin will start on ceftriaxone empirically. Procalcitonin came also be raised in tissue injury (2) Altered mental status: Qualifiers: Altered mental status type: disorientation Qualified Code(s): R41.0 - Disorientation, unspecified Code(s): R41.82 - Altered mental status, unspecified Status: Acute Assessment and Plan: Altered mental status is multifactorial could be related to hypovolemia, shock, hypotension, acute kidney injury, rhabdomyolysis -CT brain was negative for intracranial abnormalities -MRI cannot be performed as patient was in the [place] and may have sharpnel exposure according to his daughter -10/19: will repeat CT brain and CT facial bones to rule out any facial fractures on the left side face which is swollen (3) Fall (on) (from) other stairs and steps, initial encounter: Code(s): W10.8XXA - Fall (on) (from) other stairs and steps, initial encounter Status: Acute Assessment and Plan: Patient was found on the ground face down unknown amount of time, unknown etiology -continue treat underlying cause -10/18: Echocardiogram showed EF of 60-65%, normal biventricular size and systolic function, no significant valvular abnormalities (4) Acute kidney injury: Code(s): N17.9 - Acute kidney failure, unspecified Status: Acute Assessment and Plan: Acute kidney injury likely related to hypotension, hypovolemia, shock, rhabdomyolysis -patient received 3 L IV fluid bolus in the ER -started on bicarb infusion -patient was hypernatremic, switched bicarb infusion to 0.45% saline at 125 mL/hour -sodium levels trending down gradually -continue to monitor urine output, electrolytes and renal function -patient presented with creatinine of 3.0 (unknown baseline) -urine lytes not reflective of prerenal picture, urine eosinophils are negative -CT scan of the abdomen and pelvis did not show any hydronephrosis -CK levels trending down -appreciate Nephrology evaluation and recommendation (5) Rhabdomyolysis: Qualifiers: Encounter type: initial encounter Rhabdomyolysis type: traumatic Qualified Code(s): T79.6XXA - Traumatic ischemia of muscle, initial encounter Code(s): M62.82 - Rhabdomyolysis Status: Acute Assessment and Plan: Rhabdomyolysis likely related to being down on the ground for unknown amount of time -patient has been given 3 L IV fluids in the ER plus 500 mL of LR bolus in the ICU on 10/18. Patient seems to be adequately fluid-resuscitated -continue 0.45% saline (6) Electrolyte imbalance: Code(s): E87.8 - Other disorders of electrolyte and fluid balance, not elsewhere classified Status: Acute Assessment and Plan: Potassium, magnesium repleted (7) Anemia: Code(s): D64.9 - Anemia, unspecified Status: Acute Assessment and Plan: Patient dropped his hemoglobin this morning to 6.2 from 9.1 on admission -10/18: status post 2 units of packed RBCs -stool occult is negative -vitamin B12 levels are normal, folic acid is low will substitute -iron panel looks normal -hemoglobin remained stable (8) Thrombocytopenia: Code(s): D69.6 - Thrombocytopenia, unspecified Status: Acute Assessment and Plan: Thrombocytopenia with platelet counts of 62 this morning, 91 on admission -10/18: status post 1 unit of platelets -INR 1.2 on admission -monitor Plan DVT prophylaxis: SCDs, no chemoprophylaxis due to thrombocytopenia Stress ulcer prophylaxis: Protonix IV q.12 hours Nutrition: NPO due to mental status change Code Status: Full code Critical Care Time Spent: 33 minutes Due to a high probability of clinically significant, life threatening deterioration, the patient required my highest level of preparedness to intervene emergently and I personally spent this critical care time directly and personally managing the patient. This critical care time included obtaining a history; examining the patient; pulse oximetry; ordering and review of studies; arranging urgent treatment with development of a management plan; evaluation of patient's response to treatment; frequent reassessment; and discussions with other providers. It was exclusive of separately billable procedures and treating other patients and teaching time. Please see Assessment and Plan section and the rest of the note for further information on patient assessment and treatment This dictation may have been done utilizing a voice recognition system. Attempts have been made to correct errors. However, there may be uncorrected grammatical, spelling, and recognitions errors present. Subjective Date/time seen: 10/19/24 08:42 Interval history: Reason for consult: Found down on the ground, altered mental status, rhabdomyolysis, acute kidney injury, shock, hypernatremia 10/19/2024: Patient seen and examined the ICU, is awake, confused, does not follow simple commands but withdraws to pain in all extremities. Tries to communicate, only mumbles. Hemodynamically stable, adequate urine output, creatinine is improving, CK levels also improving. Remains on 0.45% saline, sodium levels trending down gradually Review of Systems Review of Systems: ROS unobtainable: Yes unobtainable due to medical condition and unobtainable due to mental status Exam Narrative: General: ill-appearing gentleman, currently in no acute distress HEENT:? Pupils equal and reactive, sclerae is clear, bad dentition, moist oral mucosa, left facial swelling noted, right facial droop noted Neck:? Supple Respiratory:? Clear to auscultation bilaterally, no wheezing, adequate air entry, decreased at bases Cardiac:? S1-S2 is normal, regular rate and rhythm Abdomen:? Soft, nontender, nondistended, hypoactive bowel sounds Extremities:? No edema, palpable pedal pulses, Neuro:? Patient is awake, confused, does not follow simple commands, tries to talk but only mumbles, withdraws to pain in all extremities Skin:? Warm and dry Psych:? Confused Objective Data Vital Signs Vital Signs: Vital Signs - 24 hr 10/18/24 09:30 10/18/24 10:00 10/18/24 10:00 Temperature 97.8 F 97.7 F Pulse Rate 73 71 70 Respiratory Rate 26 H 28 H Blood Pressure 109/78 99/59 L Pulse Oximetry 100 100 Oxygen Delivery Fraction of Inspired Oxygen 10/18/24 10:00 10/18/24 10:48 10/18/24 10:49 Temperature 97.7 F 97.5 F L Pulse Rate 71 69 28 L Respiratory Rate 28 H 100 H Blood Pressure 99/59 L 105/64 104/61 Pulse Oximetry 100 100 Oxygen Delivery Fraction of Inspired Oxygen 10/18/24 11:09 10/18/24 11:29 10/18/24 11:56 Temperature 97.3 F L 97.2 F L 96.9 F L Pulse Rate 70 70 68 Respiratory Rate 26 H 28 H 28 H Blood Pressure 100/62 111/66 106/64 Pulse Oximetry 100 100 100 Oxygen Delivery Fraction of Inspired Oxygen 10/18/24 12:00 10/18/24 12:00 10/18/24 12:00 Temperature 96.9 F L Pulse Rate 68 69 Respiratory Rate 19 Blood Pressure 111/65 111/65 Pulse Oximetry 100 100 Oxygen Delivery Room Air Fraction of Inspired Oxygen 10/18/24 12:00 10/18/24 12:11 10/18/24 13:11 Temperature 96.6 F L 96.5 F L Pulse Rate 68 67 68 Respiratory Rate 24 H 26 H Blood Pressure 117/71 117/67 Pulse Oximetry 100 100 Oxygen Delivery Fraction of Inspired Oxygen 10/18/24 14:00 10/18/24 14:00 10/18/24 14:02 Temperature 96.6 F L 96.6 F L Pulse Rate 68 66 68 Respiratory Rate 30 H 22 H Blood Pressure 116/74 116/74 Pulse Oximetry 100 100 Oxygen Delivery Fraction of Inspired Oxygen 10/18/24 16:00 10/18/24 16:00 10/18/24 16:00 Temperature 97.3 F L Pulse Rate 67 66 Respiratory Rate 27 H Blood Pressure 109/65 Pulse Oximetry 100 100 Oxygen Delivery Room Air Fraction of Inspired Oxygen 10/18/24 18:00 10/18/24 18:00 10/18/24 20:00 Temperature 97.6 F Pulse Rate 69 69 Respiratory Rate 26 H Blood Pressure 121/73 Pulse Oximetry 100 100 Oxygen Delivery Room Air Fraction of Inspired Oxygen 10/18/24 20:00 10/18/24 20:00 10/18/24 20:18 Temperature 97.8 F Pulse Rate 73 73 71 Respiratory Rate 23 H 26 H Blood Pressure 122/73 Pulse Oximetry 100 100 Oxygen Delivery Room Air Fraction of Inspired Oxygen 21 10/18/24 22:00 10/18/24 22:00 10/19/24 00:00 Temperature 97.9 F Pulse Rate 69 69 Respiratory Rate 26 H Blood Pressure 128/75 Pulse Oximetry 100 100 Oxygen Delivery Room Air Fraction of Inspired Oxygen 10/19/24 00:00 10/19/24 00:00 10/19/24 02:00 Temperature 97.8 F Pulse Rate 69 69 65 Respiratory Rate 21 H Blood Pressure 117/71 Pulse Oximetry 100 Oxygen Delivery Fraction of Inspired Oxygen 10/19/24 02:00 10/19/24 04:00 10/19/24 04:00 Temperature 97.4 F L 97.1 F L Pulse Rate 65 64 Respiratory Rate 23 H 21 H Blood Pressure 118/76 133/81 Pulse Oximetry 100 100 100 Oxygen Delivery Room Air Fraction of Inspired Oxygen 10/19/24 04:00 10/19/24 06:00 10/19/24 06:00 Temperature 96.2 F L Pulse Rate 64 61 61 Respiratory Rate 22 H Blood Pressure 142/84 H Pulse Oximetry 100 Oxygen Delivery Fraction of Inspired Oxygen 10/19/24 08:00 10/19/24 08:00 10/19/24 08:00 Temperature 96.7 F L Pulse Rate 63 66 Respiratory Rate 22 H Blood Pressure 119/67 Pulse Oximetry 100 100 Oxygen Delivery Room Air Fraction of Inspired Oxygen Intake/Output Intake/Output: Intake & Output 10/16/24 10/17/24 10/18/24 10/19/24 23:59 23:59 23:59 23:59 Intake Total 4635.3 4507.0 987.5 Output Total 350 475 400 Balance 4285.3 4032.0 587.5 Meds/Results Medications: Active Medications Generic Name Dose Route Start Last Admin Trade Name Freq PRN Reason Stop Dose Admin Dextrose 12.5 gm 10/17/24 21:26 Dextrose 50% 25 Gm/50 Ml Syringe IV PUSH PRN PRN Hypoglycemia Protocol Enoxaparin Sodium 30 mg 10/18/24 09:00 Enoxaparin 30 Mg/0.3 Ml Syringe SUB-Q DAILY JHONY Glucagon 1 mg 10/17/24 21:26 Glucagon For Inj 1 Mg Vial IM PRN PRN Hypoglycemia Protocol Glucose 15 gm 10/17/24 21:26 Glucose Oral Gel 15 Gm Of Glucse In 37.5 Gm Tube PO PRN PRN Hypoglycemia Protocol Dextrose 1,000 mls @ 100 mls/hr 10/17/24 21:26 Dextrose 5% 1,000 Ml IVPB PRN PRN Hypoglycemia Protocol Sodium Chloride 1,000 mls @ 125 mls/hr 10/18/24 07:50 10/19/24 00:53 Sodium Chloride 0.45% IV CONT 125 mls/hr .Q8H JHONY Administration Pantoprazole Sodium 40 mg 10/18/24 21:00 10/19/24 07:51 Pantoprazole Sodium Iv 40 Mg Vial IV PUSH 40 mg Q12HR JHONY Administration Perflutren Lipid Microsphere 0 ml 10/18/24 07:51 Perflutren Lipid Microspheres 1.5 Ml Vial Diluted To 10 Ml Total Volume IV PUSH 10/21/24 07:51 ONCE PRN adequate visualization Protocol Sodium Chloride 10 ml 10/17/24 14:00 10/19/24 06:00 Central Line Flush IV PUSH 10 ml Q8HR JHONY Administration Sodium Chloride 20 ml 10/17/24 13:27 Central Line Flush IV PUSH PRN PRN after blood draws Radiology Results: ITS Impressions Head CT 10/17/24 10:43 IMPRESSION: 1. No acute intracranial process. 2. Age-related changes including mild to moderate diffuse volume loss and mild to moderate scattered white matter hypoattenuation consistent with chronic small vessel ischemic disease. Chest X-Ray 10/17/24 10:45 IMPRESSION: No focal infiltrate or effusion. Chest/Abdomen/Pelvis CT 10/17/24 10:46 IMPRESSION: No hollow or solid organ injury. No acute fractures. Labs Labs: Laboratory Results - last 24 hr 10/18/24 10/18/24 10/18/24 03:54 05:42 11:18 WBC RBC Hgb Hct MCV MCH MCHC RDW Plt Count MPV Immature Gran % (Auto) Neut % (Auto) Lymph % (Auto) [place] % (Auto) Eos % (Auto) Baso % (Auto) Lymph # (Auto) [place] # (Auto) Eos # (Auto) Baso # (Auto) Abs Immat Gran (auto) Absolute Neuts (auto) Absolute Nucleated RBC Band Neutrophils % Nucleated RBC % Platelet Estimate % Immature Plt Fraction Target Cells Ovalocytes [place] Cells Schistocytes Sodium Potassium Chloride Carbon Dioxide Anion Gap BUN Creatinine Estim Creat Clear Calc Estimated GFR Glucose POC Capillary Glucose Lactic Acid Calcium Phosphorus Magnesium Iron TIBC % Saturation Total Bilirubin AST ALT Alkaline Phosphatase Total Creatine Kinase 8292 H Total Protein Albumin Vitamin B12 Folate Procalcitonin Urine Eosinophils None seen Ur Random Sodium 28 Urine Creatinine 85.9 Stl Occult Blood (IFOB) Random Vancomycin Blood Type B Negative Antibody Screen Negative Crossmatch See Detail 10/18/24 10/18/24 10/18/24 12:08 14:52 17:24 WBC 7.9 RBC 2.75 L Hgb 8.7 L Hct 26.5 L MCV 96.4 MCH 31.6 MCHC 32.8 RDW 18.6 H Plt Count 75 L MPV 9.5 Immature Gran % (Auto) Neut % (Auto) Lymph % (Auto) [place] % (Auto) Eos % (Auto) Baso % (Auto) Lymph # (Auto) [place] # (Auto) Eos # (Auto) Baso # (Auto) Abs Immat Gran (auto) Absolute Neuts (auto) Absolute Nucleated RBC Band Neutrophils % Nucleated RBC % Platelet Estimate % Immature Plt Fraction 3.1 Target Cells Ovalocytes [place] Cells Schistocytes Sodium 154 H Potassium 3.1 L Chloride 118 H Carbon Dioxide 22 Anion Gap 14 H BUN 63 H Creatinine 2.68 H Estim Creat Clear Calc 22 Estimated GFR 24 L Glucose 113 H POC Capillary Glucose 119 H 114 H Lactic Acid Calcium 6.7 L Phosphorus 3.5 Magnesium 1.8 Iron 55 TIBC 149 L % Saturation 37 Total Bilirubin 1.7 H AST 137 H ALT 37 Alkaline Phosphatase 47 Total Creatine Kinase Total Protein 6.0 L Albumin 3.2 L Vitamin B12 979.0 H Folate 1.5 L Procalcitonin 3.6 Urine Eosinophils Ur Random Sodium Urine Creatinine Stl Occult Blood (IFOB) Random Vancomycin 9.3 L Blood Type Antibody Screen Crossmatch 10/18/24 10/18/24 10/19/24 21:32 23:28 01:54 WBC RBC Hgb Hct MCV MCH MCHC RDW Plt Count MPV Immature Gran % (Auto) Neut % (Auto) Lymph % (Auto) [place] % (Auto) Eos % (Auto) Baso % (Auto) Lymph # (Auto) [place] # (Auto) Eos # (Auto) Baso # (Auto) Abs Immat Gran (auto) Absolute Neuts (auto) Absolute Nucleated RBC Band Neutrophils % Nucleated RBC % Platelet Estimate % Immature Plt Fraction Target Cells Ovalocytes [place] Cells Schistocytes Sodium 152 H 152 H Potassium 3.7 3.6 Chloride 119 H 119 H Carbon Dioxide 22 21 L Anion Gap 11 12 BUN 61 H 61 H Creatinine 2.66 H 2.61 H Estim Creat Clear Calc 22 23 Estimated GFR 24 L 24 L Glucose 103 106 POC Capillary Glucose 102 Lactic Acid Calcium 7.1 L 7.0 L Phosphorus Magnesium Iron TIBC % Saturation Total Bilirubin AST ALT Alkaline Phosphatase Total Creatine Kinase Total Protein Albumin Vitamin B12 Folate Procalcitonin Urine Eosinophils Ur Random Sodium Urine Creatinine Stl Occult Blood (IFOB) Random Vancomycin Blood Type Antibody Screen Crossmatch 10/19/24 10/19/24 05:24 05:25 WBC 8.6 RBC 2.99 L Hgb 9.5 L Hct 28.6 L MCV 95.7 MCH 31.8 MCHC 33.2 RDW 19.7 H Plt Count 64 L MPV 9.8 Immature Gran % (Auto) 1.3 H Neut % (Auto) 67.7 Lymph % (Auto) 20.7 [place] % (Auto) 8.9 H Eos % (Auto) 1.2 Baso % (Auto) 0.2 Lymph # (Auto) 1.77 [place] # (Auto) 0.8 H Eos # (Auto) 0.1 Baso # (Auto) 0.0 Abs Immat Gran (auto) 0.11 H Absolute Neuts (auto) 5.8 Absolute Nucleated RBC 0.030 H Band Neutrophils % 0 Nucleated RBC % 0.4 H Platelet Estimate Decreased % Immature Plt Fraction 3.1 Target Cells 1+ Ovalocytes 1+ [place] Cells 1+ Schistocytes None seen Sodium 152 H Potassium 3.7 Chloride 119 H Carbon Dioxide 21 L Anion Gap 12 BUN 62 H Creatinine 2.57 H Estim Creat Clear Calc 24 Estimated GFR 25 L Glucose 105 POC Capillary Glucose Lactic Acid 1.8 Calcium 7.0 L Phosphorus 3.6 Magnesium 1.7 Iron TIBC % Saturation Total Bilirubin 1.8 H AST 116 H ALT 37 Alkaline Phosphatase 56 Total Creatine Kinase 5758 H Total Protein 5.0 L Albumin 2.8 L Vitamin B12 Folate Procalcitonin Urine Eosinophils Ur Random Sodium Urine Creatinine Stl Occult Blood (IFOB) Negative Random Vancomycin Blood Type Antibody Screen Crossmatch Quality VTE Prophylaxis VTE prophylaxis: mechanical ordered
[2024-10-19] MEDS: cefTRIAXone 2 GM/NS 100 ML 2 GM/100 ML BAG IVPB (09:28)
[2024-10-19] MEDS: FOLIC ACID 1 MG/0.2 ML INJ IV PUSH (09:29)
[2024-10-19 09:49] LABS: Anion Gap 12 mmol/L (4-12); Blood Urea Nitrogen 60 mg/dL (9-20); Calcium 6.9 mg/dL (8.4-10.2); Carbon Dioxide 21 mmol/L (22-30); Chloride 119 mmol/L (98-107); Estimated CRCL calculation 24 ml/min; Estimated Glomerular Filt Rate 25; Glucose 102 mg/dL (65-110); Potassium 3.5 mmol/L (3.4-5.0); Sodium 152 mmol/L (137-145)
--- NOTE | 2024-10-19 10:10 | P.PNNP_ITS ---
Progress Note: A&P Assessment and Plan (1) Acute kidney injury: Code(s): N17.9 - Acute kidney failure, unspecified Status: Acute Assessment and Plan: * Creatinine was 3 when he was admitted, now down to 2.57. * creatinine 1.0mg/l in October 2023 (from [facility] labs) * evaluation to date noted: * CT scan without evidence of obstruction * urine eosinophils negative * elevated CPK noted - follow trend * urine electrolytes prerenal * UA negative for infection * suspect that the etiology is multifactorial: * hemodynamic instability/shock * prerenal factors/hypovolemia * rhabodmyolysis * infection (although no evidence to date) * other(?) * s/p aggressive IVF resuscitation * He is getting half-normal saline. * He was on bicarb to help the CK. His CO2 level is still on the low side. Will check urine pH and for presence of blood. If there is blood in the urine we might need to restart the bicarbonate. * Discussed with Dr. Lomeli (2) Hypernatremia: Code(s): E87.0 - Hyperosmolality and hypernatremia Status: Acute Assessment and Plan: * sodium normal by October 2023 labs * presumably due to significant free water deficit * getting 1/2NS IVF . * His blood pressure is better and he is off pressors so I think we can switch to D5W until we figure out the bicarbonate issue. (3) Rhabdomyolysis: Qualifiers: Encounter type: initial encounter Rhabdomyolysis type: traumatic Qualified Code(s): T79.6XXA - Traumatic ischemia of muscle, initial encounter Code(s): M62.82 - Rhabdomyolysis Status: Acute Assessment and Plan: * noted admission CPK * CPK Coming down. Now around 5000. * Check a UA for pH and for presence of blood. * presumably due to being down on ground for unknown period of time * repeat CK tomorrow (4) Shock: Code(s): R57.9 - Shock, unspecified Status: Acute Assessment and Plan: * as noted on presentation * improved (5) Anemia: Code(s): D64.9 - Anemia, unspecified Status: Acute Assessment and Plan: * hemoglobin dropped to 6.2 and transfusion given. Now 9.5. * Hemoccult negative. Possibly drop in hemoglobin due to dilution? * On cefepime so need to check iron levels * Check hemoglobin tomorrow. (6) Thrombocytopenia: Code(s): D69.6 - Thrombocytopenia, unspecified Status: Acute Assessment and Plan: * etiology? * now somewhat stable in the 60s and 70s. * Possibly due to sepsis? * follow trend (7) Altered mental status: Qualifiers: Altered mental status type: disorientation Qualified Code(s): R41.0 - Disorientation, unspecified Code(s): R41.82 - Altered mental status, unspecified Status: Acute Assessment and Plan: * as noted on admission and currently * suspect due to acute illness - shock, ALEJANDRO/ARF, rhabdomyolysis...etc * CT of brain negative * MRI of brain ordered (to r/o CVA/stroke) . This is going to happen this morning. * follow mentation (8) Fall (on) (from) other stairs and steps, initial encounter: Code(s): W10.8XXA - Fall (on) (from) other stairs and steps, initial encounter Status: Acute Assessment and Plan: * presumed based on history... * found on the ground face down * unknown duration and etiology * Echo shows good left and right sides. * continue supportive therapy Subjective Date/time seen: 10/19/24 10:10 Interval history: Patient is groggy but answers some questions. No chest pain. Breathing okay lying flat. Review of Systems Cardiovascular: Cardiovascular: Reports no additional cardiovascular complaints Respiratory: Respiratory: Reports no additional respiratory complaints Gastrointestinal: Gastrointestinal: Reports no additional gastrointestinal complaints Genitourinary: Genitourinary: Reports no additional male genitourinary complaints Exam Narrative: WDWN in NAD skin no rash head ncat lungs clear cor reg no rub abd BS+ nontender and soft ext no edema. Objective Data Vital Signs Vital Signs: Vital Signs - 24 hr 10/18/24 10:48 10/18/24 10:49 10/18/24 11:09 Temperature 97.7 F 97.5 F L 97.3 F L Pulse Rate 69 28 L 70 Respiratory Rate 28 H 100 H 26 H Blood Pressure 105/64 104/61 100/62 Pulse Oximetry 100 100 100 Oxygen Delivery Fraction of Inspired Oxygen 10/18/24 11:29 10/18/24 11:56 10/18/24 12:00 Temperature 97.2 F L 96.9 F L 96.9 F L Pulse Rate 70 68 68 Respiratory Rate 28 H 28 H 19 Blood Pressure 111/66 106/64 111/65 Pulse Oximetry 100 100 100 Oxygen Delivery Fraction of Inspired Oxygen 10/18/24 12:00 10/18/24 12:00 10/18/24 12:00 Temperature Pulse Rate 69 68 Respiratory Rate Blood Pressure 111/65 Pulse Oximetry 100 Oxygen Delivery Room Air Fraction of Inspired Oxygen 10/18/24 12:11 10/18/24 13:11 10/18/24 14:00 Temperature 96.6 F L 96.5 F L 96.6 F L Pulse Rate 67 68 68 Respiratory Rate 24 H 26 H 30 H Blood Pressure 117/71 117/67 116/74 Pulse Oximetry 100 100 100 Oxygen Delivery Fraction of Inspired Oxygen 10/18/24 14:00 10/18/24 14:02 10/18/24 16:00 Temperature 96.6 F L 97.3 F L Pulse Rate 66 68 67 Respiratory Rate 22 H 27 H Blood Pressure 116/74 109/65 Pulse Oximetry 100 100 Oxygen Delivery Fraction of Inspired Oxygen 10/18/24 16:00 10/18/24 16:00 10/18/24 18:00 Temperature Pulse Rate 66 69 Respiratory Rate Blood Pressure Pulse Oximetry 100 Oxygen Delivery Room Air Fraction of Inspired Oxygen 10/18/24 18:00 10/18/24 20:00 10/18/24 20:00 Temperature 97.6 F 97.8 F Pulse Rate 69 73 Respiratory Rate 26 H 23 H Blood Pressure 121/73 122/73 Pulse Oximetry 100 100 100 Oxygen Delivery Room Air Fraction of Inspired Oxygen 10/18/24 20:00 10/18/24 20:18 10/18/24 22:00 Temperature 97.9 F Pulse Rate 73 71 69 Respiratory Rate 26 H 26 H Blood Pressure 128/75 Pulse Oximetry 100 100 Oxygen Delivery Room Air Fraction of Inspired Oxygen 10/18/24 22:00 10/19/24 00:00 10/19/24 00:00 Temperature 97.8 F Pulse Rate 69 69 Respiratory Rate 21 H Blood Pressure 117/71 Pulse Oximetry 100 100 Oxygen Delivery Room Air Fraction of Inspired Oxygen 10/19/24 00:00 10/19/24 02:00 10/19/24 02:00 Temperature 97.4 F L Pulse Rate 69 65 65 Respiratory Rate 23 H Blood Pressure 118/76 Pulse Oximetry 100 Oxygen Delivery Fraction of Inspired Oxygen 10/19/24 04:00 10/19/24 04:00 10/19/24 04:00 Temperature 97.1 F L Pulse Rate 64 64 Respiratory Rate 21 H Blood Pressure 133/81 Pulse Oximetry 100 100 Oxygen Delivery Room Air Fraction of Inspired Oxygen 10/19/24 06:00 10/19/24 06:00 10/19/24 08:00 Temperature 96.2 F L 96.7 F L Pulse Rate 61 61 63 Respiratory Rate 22 H 22 H Blood Pressure 142/84 H 119/67 Pulse Oximetry 100 100 Oxygen Delivery Fraction of Inspired Oxygen 10/19/24 08:00 10/19/24 08:00 10/19/24 10:00 Temperature 97.3 F L Pulse Rate 66 67 Respiratory Rate 20 Blood Pressure 126/76 Pulse Oximetry 100 100 Oxygen Delivery Room Air Fraction of Inspired Oxygen Intake/Output Intake/Output: Intake & Output 10/16/24 10/17/24 10/18/24 10/19/24 23:59 23:59 23:59 23:59 Intake Total 4635.3 4507.0 1987.5 Output Total 350 475 400 Balance 4285.3 4032.0 1587.5 Meds/Results Medications: Active Medications Generic Name Dose Route Start Last Admin Trade Name Freq PRN Reason Stop Dose Admin Dextrose 12.5 gm 10/17/24 21:26 Dextrose 50% 25 Gm/50 Ml Syringe IV PUSH PRN PRN Hypoglycemia Protocol Enoxaparin Sodium 30 mg 10/18/24 09:00 Enoxaparin 30 Mg/0.3 Ml Syringe SUB-Q DAILY JHONY Folic Acid 1 mg 10/19/24 09:10 10/19/24 09:29 Folic Acid 1 Mg/0.2 Ml Inj IV PUSH 1 mg QAM JHONY Administration Glucagon 1 mg 10/17/24 21:26 Glucagon For Inj 1 Mg Vial IM PRN PRN Hypoglycemia Protocol Glucose 15 gm 10/17/24 21:26 Glucose Oral Gel 15 Gm Of Glucse In 37.5 Gm Tube PO PRN PRN Hypoglycemia Protocol Dextrose 1,000 mls @ 100 mls/hr 10/17/24 21:26 Dextrose 5% 1,000 Ml IVPB PRN PRN Hypoglycemia Protocol Sodium Chloride 1,000 mls @ 125 mls/hr 10/18/24 07:50 10/19/24 09:28 Sodium Chloride 0.45% IV CONT 125 mls/hr .Q8H JHONY Administration Ceftriaxone Sodium 2 gm in 100 mls @ 200 mls/hr 10/19/24 09:00 10/19/24 09:28 Rocephin 2 Gm/Ns 100 Ml IVPB 200 mls/hr Q24H JHONY Administration Pantoprazole Sodium 40 mg 10/18/24 21:00 10/19/24 07:51 Pantoprazole Sodium Iv 40 Mg Vial IV PUSH 40 mg Q12HR JHONY Administration Perflutren Lipid Microsphere 0 ml 10/18/24 07:51 Perflutren Lipid Microspheres 1.5 Ml Vial Diluted To 10 Ml Total Volume IV PUSH 10/21/24 07:51 ONCE PRN adequate visualization Protocol Sodium Chloride 10 ml 10/17/24 14:00 10/19/24 06:00 Central Line Flush IV PUSH 10 ml Q8HR JHONY Administration Sodium Chloride 20 ml 10/17/24 13:27 Central Line Flush IV PUSH PRN PRN after blood draws Radiology Results: ITS Impressions Chest X-Ray 10/17/24 10:45 IMPRESSION: No focal infiltrate or effusion. Chest/Abdomen/Pelvis CT 10/17/24 10:46 IMPRESSION: No hollow or solid organ injury. No acute fractures. Head CT 10/19/24 09:19 Impression: No acute intracranial hemorrhage or suspicious mass effect. Inflammatory sinus disease. Face CT 10/19/24 09:39 IMPRESSION: 1. Extensive sinus disease with near complete opacification of the right maxillary sinus and dependently layering fluid in the bilateral sphenoid sinuses. Correlate clinically for acute sinusitis. 2. Dental and periodontal disease with periapical lucency surrounding the posterior most remaining right maxillary molar. Renal Ultrasound 10/19/24 09:48 IMPRESSION: No hydronephrosis or renal calculi. No parenchymal findings to suggest the presence of medical renal disease. Simple cysts within the right kidney, for which no further follow-up is needed. Labs Labs: Laboratory Results - last 24 hr 10/18/24 10/18/24 10/18/24 05:42 11:18 12:08 WBC RBC Hgb Hct MCV MCH MCHC RDW Plt Count MPV Immature Gran % (Auto) Neut % (Auto) Lymph % (Auto) [place] % (Auto) Eos % (Auto) Baso % (Auto) Lymph # (Auto) [place] # (Auto) Eos # (Auto) Baso # (Auto) Abs Immat Gran (auto) Absolute Neuts (auto) Absolute Nucleated RBC Band Neutrophils % Nucleated RBC % Platelet Estimate % Immature Plt Fraction Target Cells Ovalocytes [place] Cells Schistocytes Sodium Potassium Chloride Carbon Dioxide Anion Gap BUN Creatinine Estim Creat Clear Calc Estimated GFR Glucose POC Capillary Glucose 119 H Lactic Acid Calcium Phosphorus Magnesium Iron TIBC % Saturation Total Bilirubin AST ALT Alkaline Phosphatase Total Creatine Kinase Total Protein Albumin Vitamin B12 Folate Procalcitonin Urine Eosinophils None seen Ur Random Sodium 28 Urine Creatinine 85.9 Stl Occult Blood (IFOB) Random Vancomycin Blood Type B Negative Antibody Screen Negative Crossmatch See Detail 10/18/24 10/18/24 10/18/24 14:52 17:24 21:32 WBC 7.9 RBC 2.75 L Hgb 8.7 L Hct 26.5 L MCV 96.4 MCH 31.6 MCHC 32.8 RDW 18.6 H Plt Count 75 L MPV 9.5 Immature Gran % (Auto) Neut % (Auto) Lymph % (Auto) [place] % (Auto) Eos % (Auto) Baso % (Auto) Lymph # (Auto) [place] # (Auto) Eos # (Auto) Baso # (Auto) Abs Immat Gran (auto) Absolute Neuts (auto) Absolute Nucleated RBC Band Neutrophils % Nucleated RBC % Platelet Estimate % Immature Plt Fraction 3.1 Target Cells Ovalocytes [place] Cells Schistocytes Sodium 154 H 152 H Potassium 3.1 L 3.7 Chloride 118 H 119 H Carbon Dioxide 22 22 Anion Gap 14 H 11 BUN 63 H 61 H Creatinine 2.68 H 2.66 H Estim Creat Clear Calc 22 22 Estimated GFR 24 L 24 L Glucose 113 H 103 POC Capillary Glucose 114 H Lactic Acid Calcium 6.7 L 7.1 L Phosphorus 3.5 Magnesium 1.8 Iron 55 TIBC 149 L % Saturation 37 Total Bilirubin 1.7 H AST 137 H ALT 37 Alkaline Phosphatase 47 Total Creatine Kinase Total Protein 6.0 L Albumin 3.2 L Vitamin B12 979.0 H Folate 1.5 L Procalcitonin 3.6 Urine Eosinophils Ur Random Sodium Urine Creatinine Stl Occult Blood (IFOB) Random Vancomycin 9.3 L Blood Type Antibody Screen Crossmatch 10/18/24 10/19/24 10/19/24 23:28 01:54 05:24 WBC 8.6 RBC 2.99 L Hgb 9.5 L Hct 28.6 L MCV 95.7 MCH 31.8 MCHC 33.2 RDW 19.7 H Plt Count 64 L MPV 9.8 Immature Gran % (Auto) 1.3 H Neut % (Auto) 67.7 Lymph % (Auto) 20.7 [place] % (Auto) 8.9 H Eos % (Auto) 1.2 Baso % (Auto) 0.2 Lymph # (Auto) 1.77 [place] # (Auto) 0.8 H Eos # (Auto) 0.1 Baso # (Auto) 0.0 Abs Immat Gran (auto) 0.11 H Absolute Neuts (auto) 5.8 Absolute Nucleated RBC 0.030 H Band Neutrophils % 0 Nucleated RBC % 0.4 H Platelet Estimate Decreased % Immature Plt Fraction 3.1 Target Cells 1+ Ovalocytes 1+ [place] Cells 1+ Schistocytes None seen Sodium 152 H 152 H Potassium 3.6 3.7 Chloride 119 H 119 H Carbon Dioxide 21 L 21 L Anion Gap 12 12 BUN 61 H 62 H Creatinine 2.61 H 2.57 H Estim Creat Clear Calc 23 24 Estimated GFR 24 L 25 L Glucose 106 105 POC Capillary Glucose 102 Lactic Acid 1.8 Calcium 7.0 L 7.0 L Phosphorus 3.6 Magnesium 1.7 Iron TIBC % Saturation Total Bilirubin 1.8 H AST 116 H ALT 37 Alkaline Phosphatase 56 Total Creatine Kinase 5758 H Total Protein 5.0 L Albumin 2.8 L Vitamin B12 Folate Procalcitonin Urine Eosinophils Ur Random Sodium Urine Creatinine Stl Occult Blood (IFOB) Random Vancomycin Blood Type Antibody Screen Crossmatch 10/19/24 10/19/24 05:25 09:28 WBC RBC Hgb Hct MCV MCH MCHC RDW Plt Count MPV Immature Gran % (Auto) Neut % (Auto) Lymph % (Auto) [place] % (Auto) Eos % (Auto) Baso % (Auto) Lymph # (Auto) [place] # (Auto) Eos # (Auto) Baso # (Auto) Abs Immat Gran (auto) Absolute Neuts (auto) Absolute Nucleated RBC Band Neutrophils % Nucleated RBC % Platelet Estimate % Immature Plt Fraction Target Cells Ovalocytes [place] Cells Schistocytes Sodium 152 H Potassium 3.5 Chloride 119 H Carbon Dioxide 21 L Anion Gap 12 BUN 60 H Creatinine 2.57 H Estim Creat Clear Calc 24 Estimated GFR 25 L Glucose 102 POC Capillary Glucose Lactic Acid Calcium 6.9 L Phosphorus Magnesium Iron TIBC % Saturation Total Bilirubin AST ALT Alkaline Phosphatase Total Creatine Kinase Total Protein Albumin Vitamin B12 Folate Procalcitonin Urine Eosinophils Ur Random Sodium Urine Creatinine Stl Occult Blood (IFOB) Negative Random Vancomycin Blood Type Antibody Screen Crossmatch
--- NOTE | 2024-10-19 10:56 | PCNFU ---
Nutrition Follow-Up Complete: Inadequate Oral Intake as related to AMS as evidenced by NPO. Goal; Meet estimated nutritional needs Patient has limited progress towards goal. We will continue current goal. Pt current nutrition is NPO. Nutrition recommendation: Jevity 1.5 at 55 ml/hr. Last recorded weight is 69.7 kg, up from 66 kg on admit. Bowel Motility: Last reported BM5/30 Labs Reviewed: Cr 2.9,BUN 60, Cr 2.5, Na 152 Meds Noted:Rocephin, D5, Folic Acid. Skin: WNL Additional Notes: Patient remains NPO. Not alert enough for Speech evaluation. Spoke with Qc Manager today regarding nutrition. Plans to place NGT today and start tube feedings. Tube feeding recommendations: Jevity 1.5 at 20 ml/hr advance by 10 ml q 4 hours to goal rate of 55 ml/hr. Total Nutrition: 1815 kcal/84 gm protein/920 ml water. Flush 100 ml q 4 hours. will monitor weight, labs, skin, diet orders, meds every Tuesday and Tuesday.
[2024-10-19] MEDS: DEXTROSE 5% 1,000 ML 1,000 ML 125 ML IV CONT (10:58)
[2024-10-19 11:11] LABS: Add Urine Microscopic? YES; Appearance Urine Turbid (Clear); Glucose Urine UA Negative (Negative); Leukocyte Esterase Ur 3+ LEU/UL (Negative); Need Manual Microscopic Reviewed; Nitrate Urine Negative (Negative); Non Pathogenic Casts >20; Specific Grav Ur 1.014 (1.001-1.035)
[2024-10-19] MEDS: POTASSIUM CHLORIDE 20 MEQ PACKET (FOR LIQUID) 40 MEQ FEED TUBE (12:45)
[2024-10-19 14:27] LABS: Anion Gap 10 mmol/L (4-12); Blood Urea Nitrogen 59 mg/dL (9-20); Calcium 7.2 mg/dL (8.4-10.2); Carbon Dioxide 21 mmol/L (22-30); Chloride 119 mmol/L (98-107); Estimated CRCL calculation 24 ml/min; Estimated Glomerular Filt Rate 25; Glucose 133 mg/dL (65-110); Potassium 3.9 mmol/L (3.4-5.0); Sodium 150 mmol/L (137-145)
[2024-10-19] MEDS: SODIUM BICARBONATE 8.4% 75 MEQ in WATER, STERILE FOR INJECTION 1,000 ML 125 MEQ IV CONT ×2 (15:18→23:38)
[2024-10-19 18:28] LABS: Anion Gap 12 mmol/L (4-12); Blood Urea Nitrogen 58 mg/dL (9-20); Calcium 7.1 mg/dL (8.4-10.2); Carbon Dioxide 21 mmol/L (22-30); Chloride 116 mmol/L (98-107); Estimated CRCL calculation 25 ml/min; Estimated Glomerular Filt Rate 26; Glucose 133 mg/dL (65-110); Potassium 3.6 mmol/L (3.4-5.0); Sodium 149 mmol/L (137-145)
[2024-10-19 21:52] LABS: Anion Gap 11 mmol/L (4-12); Blood Urea Nitrogen 58 mg/dL (9-20); Calcium 7.2 mg/dL (8.4-10.2); Carbon Dioxide 24 mmol/L (22-30); Chloride 114 mmol/L (98-107); Estimated CRCL calculation 25 ml/min; Estimated Glomerular Filt Rate 26; Glucose 143 mg/dL (65-110); Potassium 3.7 mmol/L (3.4-5.0); Sodium 149 mmol/L (137-145)
[2024-10-20] VITALS (15 sets, daily range): BP systolic 102–147; BP diastolic 57–75; PULSE 65–76; RESP 22–26; TEMP 36.2–36.9; O2SAT 97–100
[2024-10-20 01:39] LABS: Anion Gap 8 mmol/L (4-12); Blood Urea Nitrogen 57 mg/dL (9-20); Calcium 7.2 mg/dL (8.4-10.2); Carbon Dioxide 26 mmol/L (22-30); Chloride 113 mmol/L (98-107); Estimated CRCL calculation 26 ml/min; Estimated Glomerular Filt Rate 28; Glucose 146 mg/dL (65-110); Potassium 3.5 mmol/L (3.4-5.0); Sodium 147 mmol/L (137-145)
[2024-10-20 04:25] LABS: Hematocrit 26.1 % (42.0-52.0); Hemoglobin 8.9 g/dL (14.0-18.0); Immature Granulocyte Percent A 1.1 % (0-0.5); Immature Platelet Fraction Pct 3.8 % (0.9-11.2); Lymphocytes Absolute Auto 1.59 K/mm3 (0.9-3.2); Mean Corpuscular HGB Conc 34.1 g/dl (32-36); Mean Corpuscular Hemoglobin 32.2 pg (26-34); Mean Corpuscular Volume 94.6 fl (80-100); Nucleated Red Blood Cells Absolute Auto 0.050 K/mm3 (0.0-0.012); Nucleated Red Blood Cells Perc 0.8 % (0.0-0.2); Platelet Count Result 47 k/mm3 (150-375); Red Blood Count 2.76 M/mm3 (4.6-6.20); White Blood Count 6.2 K/mm3 (4.5-10.0)
[2024-10-20 04:48] LABS: Alanine Aminotransferase 34 U/L (6-50); Albumin Level 2.6 g/dL (3.5-5.1); Alkaline Phosphatase 55 U/L (38-126); Anion Gap 7 mmol/L (4-12); Aspartate Amino Transferase 78 U/L (17-59); Bilirubin,Total 1.4 mg/dL (0.2-1.3); Blood Urea Nitrogen 59 mg/dL (9-20); Calcium 7.2 mg/dL (8.4-10.2); Carbon Dioxide 27 mmol/L (22-30); Chloride 113 mmol/L (98-107); Creatine Kinase 3006 U/L (55-170); Estimated CRCL calculation 28 ml/min; Estimated Glomerular Filt Rate 30; Glucose 140 mg/dL (65-110); Magnesium 1.6 mg/dL (1.6-2.3); Potassium 3.7 mmol/L (3.4-5.0); Sodium 147 mmol/L (137-145); Total Protein 5.0 g/dL (6.3-8.2)
[2024-10-20 04:57] LABS: Schistocytes None Seen
[2024-10-20 04:58] LABS: Anisocytosis 2+
[2024-10-20] MEDS: CENTRAL LINE FLUSH 10 ML IV PUSH ×2 (05:45→14:43)
[2024-10-20] MEDS: SODIUM BICARBONATE 8.4% 75 MEQ in WATER, STERILE FOR INJECTION 1,000 ML 125 MEQ IV CONT ×2 (08:17→15:44)
[2024-10-20] MEDS: cefTRIAXone 2 GM/NS 100 ML 2 GM/100 ML BAG IVPB (08:18)
[2024-10-20] MEDS: PANTOPRAZOLE SODIUM IV 40 MG VIAL IV PUSH ×2 (08:18→20:16)
[2024-10-20] MEDS: MAGNESIUM SULF 2 GM/WATER 50ML 2 GM/50 ML BAG IVPB (08:18)
--- NOTE | 2024-10-20 08:35 | P.PNIM_ITS ---
Progress Note: A&P Assessment and Plan (1) Shock: Code(s): R57.9 - Shock, unspecified Status: Acute Assessment and Plan: RESOLVED 10/17: And EMS arrive patient's house he was found face down with, hypotensive with systolic in the 50s, patient given IV fluids in the ER, central line inserted, started on Levophed -off Levophed since the morning of 10/18 -procalcitonin levels are at high -patient was started on cefepime and vancomycin which was discontinued since there was no nidus of infection -MRSA screen is negative, -10/17: Blood cultures negative-so far -no nidus of infection on either chest x-ray, CT chest abdomen and pelvis, UA was clear, -10/19: given low body temperature, elevated procalcitonin will start on ceftriaxone empirically. Procalcitonin can also be raised in tissue injury -10/19: UA reflective of UTI, also given sinusitis on CT scan of the face, started patient on ceftriaxone (2) Altered mental status: Qualifiers: Altered mental status type: disorientation Qualified Code(s): R41.0 - Disorientation, unspecified Code(s): R41.82 - Altered mental status, unspecified Status: Acute Assessment and Plan: Altered mental status is multifactorial could be related to hypovolemia, shock, hypotension, acute kidney injury, rhabdomyolysis -CT brain was negative for intracranial abnormalities -MRI cannot be performed as patient was in the [place] and may have sharpnel exposure according to his daughter -10/19: Repeat CT brain did not show any acute intracranial hemorrhage or suspicious mass effect, inflammatory sinus disease. -10/19: CT facial bones showed extensive sinus disease with near complete opacification of the right maxillary sinus and dependently layering fluid in the bilateral sphenoid sinuses. Dental and periodontal disease with periapical lucency surrounding the posterior most remaining right maxillary molar (3) Fall (on) (from) other stairs and steps, initial encounter: Code(s): W10.8XXA - Fall (on) (from) other stairs and steps, initial encounter Status: Acute Assessment and Plan: Patient was found on the ground face down unknown amount of time, unknown etiology -continue treat underlying cause -10/18: Echocardiogram showed EF of 60-65%, normal biventricular size and systolic function, no significant valvular abnormalities (4) Acute kidney injury: Code(s): N17.9 - Acute kidney failure, unspecified Status: Acute Assessment and Plan: Acute kidney injury likely related to hypotension, hypovolemia, shock, rhabdomyolysis -patient received 3 L IV fluid bolus in the ER -started on bicarb infusion -patient was hypernatremic, -sodium levels trending down gradually currently on bicarb infusion per Nephrology -continue to monitor urine output, electrolytes and renal function -patient presented with creatinine of 3.0 (baseline 1.0 in October 2023 at [facility]) -urine lytes not reflective of prerenal picture, urine eosinophils are negative -CT scan of the abdomen and pelvis did not show any hydronephrosis -renal ultrasound: No hydronephrosis or renal calculi, no apparent, findings to suggest the presence of medical renal disease. Simple cyst within the right kidney -CK levels trending down -appreciate Nephrology evaluation and recommendation (5) Rhabdomyolysis: Qualifiers: Encounter type: initial encounter Rhabdomyolysis type: traumatic Qualified Code(s): T79.6XXA - Traumatic ischemia of muscle, initial encounter Code(s): M62.82 - Rhabdomyolysis Status: Acute Assessment and Plan: Rhabdomyolysis likely related to being down on the ground for unknown amount of time -patient has been given 3 L IV fluids in the ER plus 500 mL of LR bolus in the ICU on 10/18. Patient seems to be adequately fluid-resuscitated -continue IV fluids per Nephrology (6) Electrolyte imbalance: Code(s): E87.8 - Other disorders of electrolyte and fluid balance, not elsewhere classified Status: Acute Assessment and Plan: Magnesium repleted (7) Anemia: Code(s): D64.9 - Anemia, unspecified Status: Acute Assessment and Plan: Patient dropped his hemoglobin this morning to 6.2 from 9.1 on admission -10/18: status post 2 units of packed RBCs -stool occult is negative -vitamin B12 levels are normal, folic acid is low will substitute -iron panel looks normal -hemoglobin remained stable (8) Thrombocytopenia: Code(s): D69.6 - Thrombocytopenia, unspecified Status: Acute Assessment and Plan: Thrombocytopenia with platelet counts of 62 this morning, 91 on admission -10/18: status post 1 unit of platelets -INR 1.2 on admission -platelets remain low, continue to monitor Plan DVT prophylaxis: SCDs, no chemoprophylaxis due to thrombocytopenia Stress ulcer prophylaxis: Protonix IV q.12 hours Nutrition: NG tube placed on 10/19: Started on tube feeds and tolerating Code Status: Full code Due to a high probability of clinically significant, life threatening deterioration, the patient required my highest level of preparedness to intervene emergently and I personally spent this critical care time directly and personally managing the patient. This critical care time included obtaining a history; examining the patient; pulse oximetry; ordering and review of studies; arranging urgent treatment with development of a management plan; evaluation of patient's response to treatment; frequent reassessment; and discussions with other providers. It was exclusive of separately billable procedures and treating other patients and teaching time. Please see Assessment and Plan section and the rest of the note for further information on patient assessment and treatment This dictation may have been done utilizing a voice recognition system. Attempts have been made to correct errors. However, there may be uncorrected grammatical, spelling, and recognitions errors present. Subjective Date/time seen: 10/20/24 08:35 Interval history: Reason for consult: Found down on the ground, altered mental status, rhabdomyolysis, acute kidney injury, shock, hypernatremia Patient being seen for the hospitalist group Patient more awake this morning, is able to tell me his full name, his date of . Follows simple commands in all extremities. Did not know the year, on the name of the president of the [place] Patient is hemodynamically stable, tolerating tube feeds, adequate urine output, afebrile Hyponatremia is improving gradually, 147 this morning, remains on sodium bicarb infusion. Review of Systems Review of Systems: ROS unobtainable: Yes unobtainable due to medical condition and unobtainable due to mental status Exam Narrative: General: ill-appearing gentleman, currently in no acute distress HEENT:? Pupils equal and reactive, sclerae is clear, bad dentition, moist oral mucosa, left facial swelling noted, right facial droop noted Neck:? Supple Respiratory:? Clear to auscultation bilaterally, no wheezing, adequate air entry, decreased at bases Cardiac:? S1-S2 is normal, regular rate and rhythm Abdomen:? Soft, nontender, nondistended, hypoactive bowel sounds Extremities:? No edema, palpable pedal pulses, Neuro:? Patient is awake, able to tell me his full name, due to but in follows simple commands in all extremities, words are more clear this morning, unable to tell me the year or the name of the bladder changer Skin:? Warm and dry Psych:? Confused Objective Data Vital Signs Vital Signs: Vital Signs - 24 hr 10/19/24 10:00 10/19/24 10:00 10/19/24 12:00 Temperature 97.3 F L 98.0 F Pulse Rate 67 65 67 Respiratory Rate 20 25 H Blood Pressure 126/76 119/70 Pulse Oximetry 100 100 Oxygen Delivery 10/19/24 12:00 10/19/24 12:00 10/19/24 14:00 Temperature Pulse Rate 69 69 Respiratory Rate Blood Pressure Pulse Oximetry 100 Oxygen Delivery Room Air 10/19/24 16:00 10/19/24 16:00 10/19/24 16:00 Temperature 97.5 F L Pulse Rate 68 66 Respiratory Rate 22 H Blood Pressure 122/79 Pulse Oximetry 100 100 Oxygen Delivery Room Air 10/19/24 18:00 10/19/24 20:00 10/19/24 20:00 Temperature 97.9 F Pulse Rate 70 70 Respiratory Rate 25 H Blood Pressure 124/75 Pulse Oximetry 100 100 Oxygen Delivery Room Air 10/19/24 20:00 10/19/24 22:00 10/20/24 00:00 Temperature Pulse Rate 70 69 Respiratory Rate Blood Pressure Pulse Oximetry 100 Oxygen Delivery Room Air 10/20/24 00:00 10/20/24 00:00 10/20/24 02:00 Temperature 97.8 F Pulse Rate 66 66 66 Respiratory Rate 25 H Blood Pressure 121/70 Pulse Oximetry 100 Oxygen Delivery 10/20/24 04:00 10/20/24 04:00 10/20/24 04:00 Temperature 97.4 F L Pulse Rate 71 71 Respiratory Rate 25 H Blood Pressure 147/74 H Pulse Oximetry 100 100 Oxygen Delivery Room Air 10/20/24 06:00 10/20/24 08:00 Temperature 97.1 F L Pulse Rate 67 67 Respiratory Rate 26 H Blood Pressure 117/74 Pulse Oximetry 99 Oxygen Delivery Intake/Output Intake/Output: Intake & Output 10/17/24 10/18/24 10/19/24 10/20/24 23:59 23:59 23:59 23:59 Intake Total 4635.3 4607.0 4128.4 1588 Output Total 350 475 800 350 Balance 4285.3 4132.0 3328.4 1238 Meds/Results Medications: Active Medications Generic Name Dose Route Start Last Admin Trade Name Freq PRN Reason Stop Dose Admin Dextrose 12.5 gm 10/17/24 21:26 Dextrose 50% 25 Gm/50 Ml Syringe IV PUSH PRN PRN Hypoglycemia Protocol Enoxaparin Sodium 30 mg 10/18/24 09:00 Enoxaparin 30 Mg/0.3 Ml Syringe SUB-Q DAILY JHONY Folic Acid 1 mg 10/19/24 09:10 10/19/24 09:29 Folic Acid 1 Mg/0.2 Ml Inj IV PUSH 1 mg QAM JHONY Administration Glucagon 1 mg 10/17/24 21:26 Glucagon For Inj 1 Mg Vial IM PRN PRN Hypoglycemia Protocol Glucose 15 gm 10/17/24 21:26 Glucose Oral Gel 15 Gm Of Glucse In 37.5 Gm Tube PO PRN PRN Hypoglycemia Protocol Dextrose 1,000 mls @ 100 mls/hr 10/17/24 21:26 Dextrose 5% 1,000 Ml IVPB PRN PRN Hypoglycemia Protocol Ceftriaxone Sodium 2 gm in 100 mls @ 200 mls/hr 10/19/24 09:00 10/20/24 08:18 Rocephin 2 Gm/Ns 100 Ml IVPB 200 mls/hr Q24H JHONY Administration Sodium Bicarbonate 75 meq/ 1,075 mls @ 125 mls/hr 10/19/24 15:30 10/20/24 08:17 Sterile Water IV CONT 125 mls/hr .[id number] JHONY Administration Pantoprazole Sodium 40 mg 10/18/24 21:00 10/20/24 08:18 Pantoprazole Sodium Iv 40 Mg Vial IV PUSH 40 mg Q12HR JHONY Administration Perflutren Lipid Microsphere 0 ml 10/18/24 07:51 Perflutren Lipid Microspheres 1.5 Ml Vial Diluted To 10 Ml Total Volume IV PUSH 10/21/24 07:51 ONCE PRN adequate visualization Protocol Sodium Chloride 10 ml 10/17/24 14:00 10/20/24 05:45 Central Line Flush IV PUSH 10 ml Q8HR JHONY Administration Sodium Chloride 20 ml 10/17/24 13:27 Central Line Flush IV PUSH PRN PRN after blood draws Radiology Results: ITS Impressions Chest X-Ray 10/17/24 10:45 IMPRESSION: No focal infiltrate or effusion. Chest/Abdomen/Pelvis CT 10/17/24 10:46 IMPRESSION: No hollow or solid organ injury. No acute fractures. Head CT 10/19/24 09:19 Impression: No acute intracranial hemorrhage or suspicious mass effect. Inflammatory sinus disease. Face CT 10/19/24 09:39 IMPRESSION: 1. Extensive sinus disease with near complete opacification of the right maxillary sinus and dependently layering fluid in the bilateral sphenoid sinuses. Correlate clinically for acute sinusitis. 2. Dental and periodontal disease with periapical lucency surrounding the posterior most remaining right maxillary molar. Renal Ultrasound 10/19/24 09:48 IMPRESSION: No hydronephrosis or renal calculi. No parenchymal findings to suggest the presence of medical renal disease. Simple cysts within the right kidney, for which no further follow-up is needed. Abdomen X-Ray 10/19/24 11:15 IMPRESSION: Nasogastric tube in good position and ready for immediate use. Labs Labs: Laboratory Results - last 24 hr 10/19/24 10/19/24 10/19/24 09:28 10:50 11:16 WBC RBC Hgb Hct MCV MCH MCHC RDW Plt Count MPV Immature Gran % (Auto) Neut % (Auto) Lymph % (Auto) [place] % (Auto) Eos % (Auto) Baso % (Auto) Lymph # (Auto) [place] # (Auto) Eos # (Auto) Baso # (Auto) Abs Immat Gran (auto) Absolute Neuts (auto) Absolute Nucleated RBC Band Neutrophils % Nucleated RBC % Platelet Estimate % Immature Plt Fraction Anisocytosis Schistocytes Sodium 152 H Potassium 3.5 Chloride 119 H Carbon Dioxide 21 L Anion Gap 12 BUN 60 H Creatinine 2.57 H Estim Creat Clear Calc 24 Estimated GFR 25 L Glucose 102 POC Capillary Glucose 110 H Calcium 6.9 L Phosphorus Magnesium Total Bilirubin AST ALT Alkaline Phosphatase Total Creatine Kinase Total Protein Albumin Urine Color Dark yellow Urine Appearance Turbid H Urine pH 6.0 Ur Specific [place] 1.014 Urine Protein 1+ H Urine Glucose (UA) Negative Urine Ketones Trace H Ur Blood (Man) 3+ H Urine Nitrate Negative Urine Bilirubin Negative Urine Urobilinogen 1.0 Ur Leukocyte Esterase 3+ H Add Ur Microanalysis Reviewed Urine RBC 21-50 H Urine WBC >100 H Ur Squamous Epith Cells Few Urine Bacteria 1+ H Urine Casts >20 10/19/24 10/19/24 10/19/24 14:08 17:59 18:03 WBC RBC Hgb Hct MCV MCH MCHC RDW Plt Count MPV Immature Gran % (Auto) Neut % (Auto) Lymph % (Auto) [place] % (Auto) Eos % (Auto) Baso % (Auto) Lymph # (Auto) [place] # (Auto) Eos # (Auto) Baso # (Auto) Abs Immat Gran (auto) Absolute Neuts (auto) Absolute Nucleated RBC Band Neutrophils % Nucleated RBC % Platelet Estimate % Immature Plt Fraction Anisocytosis Schistocytes Sodium 150 H 149 H Potassium 3.9 3.6 Chloride 119 H 116 H Carbon Dioxide 21 L 21 L Anion Gap 10 12 BUN 59 H 58 H Creatinine 2.59 H 2.44 H Estim Creat Clear Calc 24 25 Estimated GFR 25 L 26 L Glucose 133 H 133 H POC Capillary Glucose 137 H Calcium 7.2 L 7.1 L Phosphorus Magnesium Total Bilirubin AST ALT Alkaline Phosphatase Total Creatine Kinase Total Protein Albumin Urine Color Urine Appearance Urine pH Ur Specific [place] Urine Protein Urine Glucose (UA) Urine Ketones Ur Blood (Man) Urine Nitrate Urine Bilirubin Urine Urobilinogen Ur Leukocyte Esterase Add Ur Microanalysis Urine RBC Urine WBC Ur Squamous Epith Cells Urine Bacteria Urine Casts 10/19/24 10/19/24 10/20/24 21:38 23:36 01:25 WBC RBC Hgb Hct MCV MCH MCHC RDW Plt Count MPV Immature Gran % (Auto) Neut % (Auto) Lymph % (Auto) [place] % (Auto) Eos % (Auto) Baso % (Auto) Lymph # (Auto) [place] # (Auto) Eos # (Auto) Baso # (Auto) Abs Immat Gran (auto) Absolute Neuts (auto) Absolute Nucleated RBC Band Neutrophils % Nucleated RBC % Platelet Estimate % Immature Plt Fraction Anisocytosis Schistocytes Sodium 149 H 147 H Potassium 3.7 3.5 Chloride 114 H 113 H Carbon Dioxide 24 26 Anion Gap 11 8 BUN 58 H 57 H Creatinine 2.44 H 2.34 H Estim Creat Clear Calc 25 26 Estimated GFR 26 L 28 L Glucose 143 H 146 H POC Capillary Glucose 142 H Calcium 7.2 L 7.2 L Phosphorus Magnesium Total Bilirubin AST ALT Alkaline Phosphatase Total Creatine Kinase Total Protein Albumin Urine Color Urine Appearance Urine pH Ur Specific [place] Urine Protein Urine Glucose (UA) Urine Ketones Ur Blood (Man) Urine Nitrate Urine Bilirubin Urine Urobilinogen Ur Leukocyte Esterase Add Ur Microanalysis Urine RBC Urine WBC Ur Squamous Epith Cells Urine Bacteria Urine Casts 10/20/24 04:15 WBC 6.2 RBC 2.76 L Hgb 8.9 L Hct 26.1 L MCV 94.6 MCH 32.2 MCHC 34.1 RDW 19.4 H Plt Count 47 L MPV 11.5 H Immature Gran % (Auto) 1.1 H Neut % (Auto) 63.6 Lymph % (Auto) 25.7 [place] % (Auto) 7.4 Eos % (Auto) 1.9 Baso % (Auto) 0.3 Lymph # (Auto) 1.59 [place] # (Auto) 0.5 Eos # (Auto) 0.1 Baso # (Auto) 0.0 Abs Immat Gran (auto) 0.07 H Absolute Neuts (auto) 3.9 Absolute Nucleated RBC 0.050 H Band Neutrophils % Not Reportable Nucleated RBC % 0.8 H Platelet Estimate Decreased % Immature Plt Fraction 3.8 Anisocytosis 2+ Schistocytes None seen Sodium 147 H Potassium 3.7 Chloride 113 H Carbon Dioxide 27 Anion Gap 7 BUN 59 H Creatinine 2.20 H Estim Creat Clear Calc 28 Estimated GFR 30 L Glucose 140 H POC Capillary Glucose Calcium 7.2 L Phosphorus 3.0 Magnesium 1.6 Total Bilirubin 1.4 H AST 78 H ALT 34 Alkaline Phosphatase 55 Total Creatine Kinase 3006 H Total Protein 5.0 L Albumin 2.6 L Urine Color Urine Appearance Urine pH Ur Specific [place] Urine Protein Urine Glucose (UA) Urine Ketones Ur Blood (Man) Urine Nitrate Urine Bilirubin Urine Urobilinogen Ur Leukocyte Esterase Add Ur Microanalysis Urine RBC Urine WBC Ur Squamous Epith Cells Urine Bacteria Urine Casts Quality VTE Prophylaxis VTE prophylaxis: mechanical ordered
[2024-10-20 08:48] LABS: Anion Gap 8 mmol/L (4-12); Blood Urea Nitrogen 57 mg/dL (9-20); Calcium 7.2 mg/dL (8.4-10.2); Carbon Dioxide 27 mmol/L (22-30); Chloride 111 mmol/L (98-107); Estimated CRCL calculation 28 ml/min; Estimated Glomerular Filt Rate 30; Glucose 137 mg/dL (65-110); Potassium 3.4 mmol/L (3.4-5.0); Sodium 146 mmol/L (137-145)
--- NOTE | 2024-10-20 11:11 | P.PNNP_ITS ---
Progress Note: A&P Assessment and Plan (1) Acute kidney injury: Code(s): N17.9 - Acute kidney failure, unspecified Status: Acute Assessment and Plan: * Creatinine was 3 when he was admitted, now down to 2.57. * creatinine 1.0mg/l in October 2023 (from [facility] labs) * evaluation to date noted: * CT scan without evidence of obstruction * urine eosinophils negative * elevated CPK noted - follow trend * urine electrolytes prerenal * UA negative for infection * suspect that the etiology is multifactorial: * hemodynamic instability/shock * prerenal factors/hypovolemia * rhabodmyolysis * infection (although no evidence to date) * other(?) * s/p aggressive IVF resuscitation * He is getting free water with 75 of sodium bicarbonate. * CO2 level did increase to 27. * Sodium level is a little better. (2) Hypernatremia: Code(s): E87.0 - Hyperosmolality and hypernatremia Status: Acute Assessment and Plan: * sodium normal by October 2023 labs * presumably due to significant free water deficit * getting Free water with 75 of bicarb. * Blood pressure is fine. Sodium level is better. CO2 is up to 27. Will change fluids to free water with 50 of bicarb. (3) Rhabdomyolysis: Qualifiers: Encounter type: initial encounter Rhabdomyolysis type: traumatic Qualified Code(s): T79.6XXA - Traumatic ischemia of muscle, initial encounter Code(s): M62.82 - Rhabdomyolysis Status: Acute Assessment and Plan: * noted admission CPK * CPK Coming down. Now around 3000 * UA showed blood so giving some bicarb. * presumably due to being down on ground for unknown period of time * repeat CK tomorrow (4) Shock: Code(s): R57.9 - Shock, unspecified Status: Acute Assessment and Plan: * as noted on presentation * improved (5) Anemia: Code(s): D64.9 - Anemia, unspecified Status: Acute Assessment and Plan: * hemoglobin dropped to 6.2 and transfusion given. Now 98.9 * Hemoccult negative. Possibly drop in hemoglobin due to dilution? * Check hemoglobin tomorrow. (6) Thrombocytopenia: Code(s): D69.6 - Thrombocytopenia, unspecified Status: Acute Assessment and Plan: * etiology? * Platelet count still up and down. Today's in the 40s. * Possibly due to sepsis? * follow trend (7) Altered mental status: Qualifiers: Altered mental status type: disorientation Qualified Code(s): R41.0 - Disorientation, unspecified Code(s): R41.82 - Altered mental status, unspecified Status: Acute Assessment and Plan: * as noted on admission and currently * suspect due to acute illness - shock, ALEJANDRO/ARF, rhabdomyolysis...etc * CT of brain negative * MRI of brain ordered (to r/o CVA/stroke) . This is going to happen this morning. * follow mentation . Seems to have improved since he recognized his daughter today. (8) Fall (on) (from) other stairs and steps, initial encounter: Code(s): W10.8XXA - Fall (on) (from) other stairs and steps, initial encounter Status: Acute Assessment and Plan: * presumed based on history... * found on the ground face down * unknown duration and etiology * Echo shows good left and right sides. * continue supportive therapy Subjective Date/time seen: 10/20/24 11:11 Interval history: Donya , his daughter, is in the room. patient is comfortable in bed. He is sleeping now. He recognized Donya today for the 1st time since he has been admitted. Exam Narrative: WDWN in NAD skin no rash head ncat lungs clear bilaterally cor reg no rub or gallop abd BS+ nontender and soft ext no edema. Objective Data Vital Signs Vital Signs: Vital Signs - 24 hr 10/19/24 12:00 10/19/24 12:00 10/19/24 12:00 Temperature 98.0 F Pulse Rate 67 69 Respiratory Rate 25 H Blood Pressure 119/70 Pulse Oximetry 100 100 Oxygen Delivery Room Air 10/19/24 14:00 10/19/24 16:00 10/19/24 16:00 Temperature 97.5 F L Pulse Rate 69 68 Respiratory Rate 22 H Blood Pressure 122/79 Pulse Oximetry 100 100 Oxygen Delivery Room Air 10/19/24 16:00 10/19/24 18:00 10/19/24 20:00 Temperature Pulse Rate 66 70 Respiratory Rate Blood Pressure Pulse Oximetry 100 Oxygen Delivery Room Air 10/19/24 20:00 10/19/24 20:00 10/19/24 22:00 Temperature 97.9 F Pulse Rate 70 70 69 Respiratory Rate 25 H Blood Pressure 124/75 Pulse Oximetry 100 Oxygen Delivery 10/20/24 00:00 10/20/24 00:00 10/20/24 00:00 Temperature 97.8 F Pulse Rate 66 66 Respiratory Rate 25 H Blood Pressure 121/70 Pulse Oximetry 100 100 Oxygen Delivery Room Air 10/20/24 02:00 10/20/24 04:00 10/20/24 04:00 Temperature Pulse Rate 66 71 Respiratory Rate Blood Pressure Pulse Oximetry 100 Oxygen Delivery Room Air 10/20/24 04:00 10/20/24 06:00 10/20/24 08:00 Temperature 97.4 F L 97.1 F L Pulse Rate 71 67 67 Respiratory Rate 25 H 26 H Blood Pressure 147/74 H 117/74 Pulse Oximetry 100 99 Oxygen Delivery 10/20/24 08:00 10/20/24 10:00 Temperature Pulse Rate 68 65 Respiratory Rate Blood Pressure Pulse Oximetry Oxygen Delivery Intake/Output Intake/Output: Intake & Output 10/17/24 10/18/24 10/19/24 10/20/24 23:59 23:59 23:59 23:59 Intake Total 4635.3 4607.0 4128.4 1688 Output Total 350 475 800 350 Balance 4285.3 4132.0 3328.4 1338 Meds/Results Medications: Active Medications Generic Name Dose Route Start Last Admin Trade Name Freq PRN Reason Stop Dose Admin Dextrose 12.5 gm 10/17/24 21:26 Dextrose 50% 25 Gm/50 Ml Syringe IV PUSH PRN PRN Hypoglycemia Protocol Enoxaparin Sodium 30 mg 10/18/24 09:00 Enoxaparin 30 Mg/0.3 Ml Syringe SUB-Q DAILY JHONY Folic Acid 1 mg 10/19/24 09:10 10/19/24 09:29 Folic Acid 1 Mg/0.2 Ml Inj IV PUSH 1 mg QAM JHONY Administration Glucagon 1 mg 10/17/24 21:26 Glucagon For Inj 1 Mg Vial IM PRN PRN Hypoglycemia Protocol Glucose 15 gm 10/17/24 21:26 Glucose Oral Gel 15 Gm Of Glucse In 37.5 Gm Tube PO PRN PRN Hypoglycemia Protocol Dextrose 1,000 mls @ 100 mls/hr 10/17/24 21:26 Dextrose 5% 1,000 Ml IVPB PRN PRN Hypoglycemia Protocol Ceftriaxone Sodium 2 gm in 100 mls @ 200 mls/hr 10/19/24 09:00 10/20/24 08:48 Rocephin 2 Gm/Ns 100 Ml IVPB Infused Q24H JHONY Infusion Sodium Bicarbonate 75 meq/ 1,075 mls @ 125 mls/hr 10/19/24 15:30 10/20/24 08:17 Sterile Water IV CONT 125 mls/hr .[id number] JHONY Administration Pantoprazole Sodium 40 mg 10/18/24 21:00 10/20/24 08:18 Pantoprazole Sodium Iv 40 Mg Vial IV PUSH 40 mg Q12HR JHONY Administration Perflutren Lipid Microsphere 0 ml 10/18/24 07:51 Perflutren Lipid Microspheres 1.5 Ml Vial Diluted To 10 Ml Total Volume IV PUSH 10/21/24 07:51 ONCE PRN adequate visualization Protocol Sodium Chloride 10 ml 10/17/24 14:00 10/20/24 05:45 Central Line Flush IV PUSH 10 ml Q8HR JHONY Administration Sodium Chloride 20 ml 10/17/24 13:27 Central Line Flush IV PUSH PRN PRN after blood draws Radiology Results: ITS Impressions Chest X-Ray 10/17/24 10:45 IMPRESSION: No focal infiltrate or effusion. Chest/Abdomen/Pelvis CT 10/17/24 10:46 IMPRESSION: No hollow or solid organ injury. No acute fractures. Head CT 10/19/24 09:19 Impression: No acute intracranial hemorrhage or suspicious mass effect. Inflammatory sinus disease. Face CT 10/19/24 09:39 IMPRESSION: 1. Extensive sinus disease with near complete opacification of the right maxillary sinus and dependently layering fluid in the bilateral sphenoid sinuses. Correlate clinically for acute sinusitis. 2. Dental and periodontal disease with periapical lucency surrounding the posterior most remaining right maxillary molar. Renal Ultrasound 10/19/24 09:48 IMPRESSION: No hydronephrosis or renal calculi. No parenchymal findings to suggest the presence of medical renal disease. Simple cysts within the right kidney, for which no further follow-up is needed. Abdomen X-Ray 10/19/24 11:15 IMPRESSION: Nasogastric tube in good position and ready for immediate use. Labs Labs: Laboratory Results - last 24 hr 10/19/24 10/19/24 10/19/24 10:50 11:16 14:08 WBC RBC Hgb Hct MCV MCH MCHC RDW Plt Count MPV Immature Gran % (Auto) Neut % (Auto) Lymph % (Auto) [place] % (Auto) Eos % (Auto) Baso % (Auto) Lymph # (Auto) [place] # (Auto) Eos # (Auto) Baso # (Auto) Abs Immat Gran (auto) Absolute Neuts (auto) Absolute Nucleated RBC Band Neutrophils % Nucleated RBC % Platelet Estimate % Immature Plt Fraction Anisocytosis Schistocytes Sodium 150 H Potassium 3.9 Chloride 119 H Carbon Dioxide 21 L Anion Gap 10 BUN 59 H Creatinine 2.59 H Estim Creat Clear Calc 24 Estimated GFR 25 L Glucose 133 H POC Capillary Glucose 110 H Calcium 7.2 L Phosphorus Magnesium Total Bilirubin AST ALT Alkaline Phosphatase Total Creatine Kinase Total Protein Albumin Urine Color Dark yellow Urine Appearance Turbid H Urine pH 6.0 Ur Specific [place] 1.014 Urine Protein 1+ H Urine Glucose (UA) Negative Urine Ketones Trace H Ur Blood (Man) 3+ H Urine Nitrate Negative Urine Bilirubin Negative Urine Urobilinogen 1.0 Ur Leukocyte Esterase 3+ H Add Ur Microanalysis Reviewed Urine RBC 21-50 H Urine WBC >100 H Ur Squamous Epith Cells Few Urine Bacteria 1+ H Urine Casts >20 10/19/24 10/19/24 10/19/24 17:59 18:03 21:38 WBC RBC Hgb Hct MCV MCH MCHC RDW Plt Count MPV Immature Gran % (Auto) Neut % (Auto) Lymph % (Auto) [place] % (Auto) Eos % (Auto) Baso % (Auto) Lymph # (Auto) [place] # (Auto) Eos # (Auto) Baso # (Auto) Abs Immat Gran (auto) Absolute Neuts (auto) Absolute Nucleated RBC Band Neutrophils % Nucleated RBC % Platelet Estimate % Immature Plt Fraction Anisocytosis Schistocytes Sodium 149 H 149 H Potassium 3.6 3.7 Chloride 116 H 114 H Carbon Dioxide 21 L 24 Anion Gap 12 11 BUN 58 H 58 H Creatinine 2.44 H 2.44 H Estim Creat Clear Calc 25 25 Estimated GFR 26 L 26 L Glucose 133 H 143 H POC Capillary Glucose 137 H Calcium 7.1 L 7.2 L Phosphorus Magnesium Total Bilirubin AST ALT Alkaline Phosphatase Total Creatine Kinase Total Protein Albumin Urine Color Urine Appearance Urine pH Ur Specific [place] Urine Protein Urine Glucose (UA) Urine Ketones Ur Blood (Man) Urine Nitrate Urine Bilirubin Urine Urobilinogen Ur Leukocyte Esterase Add Ur Microanalysis Urine RBC Urine WBC Ur Squamous Epith Cells Urine Bacteria Urine Casts 10/19/24 10/20/24 10/20/24 23:36 01:25 04:15 WBC 6.2 RBC 2.76 L Hgb 8.9 L Hct 26.1 L MCV 94.6 MCH 32.2 MCHC 34.1 RDW 19.4 H Plt Count 47 L MPV 11.5 H Immature Gran % (Auto) 1.1 H Neut % (Auto) 63.6 Lymph % (Auto) 25.7 [place] % (Auto) 7.4 Eos % (Auto) 1.9 Baso % (Auto) 0.3 Lymph # (Auto) 1.59 [place] # (Auto) 0.5 Eos # (Auto) 0.1 Baso # (Auto) 0.0 Abs Immat Gran (auto) 0.07 H Absolute Neuts (auto) 3.9 Absolute Nucleated RBC 0.050 H Band Neutrophils % Not Reportable Nucleated RBC % 0.8 H Platelet Estimate Decreased % Immature Plt Fraction 3.8 Anisocytosis 2+ Schistocytes None seen Sodium 147 H 147 H Potassium 3.5 3.7 Chloride 113 H 113 H Carbon Dioxide 26 27 Anion Gap 8 7 BUN 57 H 59 H Creatinine 2.34 H 2.20 H Estim Creat Clear Calc 26 28 Estimated GFR 28 L 30 L Glucose 146 H 140 H POC Capillary Glucose 142 H Calcium 7.2 L 7.2 L Phosphorus 3.0 Magnesium 1.6 Total Bilirubin 1.4 H AST 78 H ALT 34 Alkaline Phosphatase 55 Total Creatine Kinase 3006 H Total Protein 5.0 L Albumin 2.6 L Urine Color Urine Appearance Urine pH Ur Specific [place] Urine Protein Urine Glucose (UA) Urine Ketones Ur Blood (Man) Urine Nitrate Urine Bilirubin Urine Urobilinogen Ur Leukocyte Esterase Add Ur Microanalysis Urine RBC Urine WBC Ur Squamous Epith Cells Urine Bacteria Urine Casts 10/20/24 08:23 WBC RBC Hgb Hct MCV MCH MCHC RDW Plt Count MPV Immature Gran % (Auto) Neut % (Auto) Lymph % (Auto) [place] % (Auto) Eos % (Auto) Baso % (Auto) Lymph # (Auto) [place] # (Auto) Eos # (Auto) Baso # (Auto) Abs Immat Gran (auto) Absolute Neuts (auto) Absolute Nucleated RBC Band Neutrophils % Nucleated RBC % Platelet Estimate % Immature Plt Fraction Anisocytosis Schistocytes Sodium 146 H Potassium 3.4 Chloride 111 H Carbon Dioxide 27 Anion Gap 8 BUN 57 H Creatinine 2.17 H Estim Creat Clear Calc 28 Estimated GFR 30 L Glucose 137 H POC Capillary Glucose Calcium 7.2 L Phosphorus Magnesium Total Bilirubin AST ALT Alkaline Phosphatase Total Creatine Kinase Total Protein Albumin Urine Color Urine Appearance Urine pH Ur Specific [place] Urine Protein Urine Glucose (UA) Urine Ketones Ur Blood (Man) Urine Nitrate Urine Bilirubin Urine Urobilinogen Ur Leukocyte Esterase Add Ur Microanalysis Urine RBC Urine WBC Ur Squamous Epith Cells Urine Bacteria Urine Casts
[2024-10-20] MEDS: POTASSIUM CHLORIDE 20 MEQ PACKET (FOR LIQUID) 40 MEQ FEED TUBE (11:12)
[2024-10-20] MEDS: FOLIC ACID 1 MG/0.2 ML INJ IV PUSH (11:12)
--- NOTE | 2024-10-20 12:18 | PCSTNOTE ---
Please refer to the Bedside Swallow Evaluation in the EMR. Please note, silent aspiration cannot be ruled out at bedside. This pleasant 69 year old male was admitted to [facility] on 10/17 due to altered mental status and a fall. It is reported that the pt was found face down at the bottom of his stairs by his daughter. He lives alone. The pt is currently on a tube feeding diet. Upon entry, the pt was laying in his bed visiting with family. An oral mechanism exam revealed facial weakness and a facial droop, as well as minimal sensory sensation around the patients lips. The pt is missing one tooth in the back but all others are intact. The pt reports that he did not have trouble swallowing prior to this admission to the hospital. Trials of thin liquid via cup edge and straw were attempted this date. When utilizing a straw, the ST put the straw between the pts lips and the pt was unaware until prompted to take a small sip. The pt demonstrated a wet vocal quality as well as coughing/throat clearing. Please note that silent aspiration cannot be ruled out at bedside. ST was going to continue with trials of pureed consistencies (pudding), but the pt was unable to follow simple directions (small sips, take a drink, etc.). BSE discontinued. The pt would smile and joke with ST this date, but when speaking he would often demonstrate garbled speech with bouts of intelligible utterances in between. Additionally, the pt was very distractible and exhibited strabismus when speaking to ST. Patient's family reported that his eyes were not like that prior to this fall. Due to confusion, decreased initiation, and safety concerns, it is recommended that this pt continue with tube feedings and remain NPO until medical status improves. When pt is more alert and oriented, it is recommended that a repeat BSE or MBS be ordered as well as a communication evaluation. Dr. Lomeli and MARIAN Barton were notified of BSE results and recommendations. Thank you for this referral.
[2024-10-20 17:38] LABS: Anion Gap 6 mmol/L (4-12); Blood Urea Nitrogen 53 mg/dL (9-20); Calcium 7.3 mg/dL (8.4-10.2); Carbon Dioxide 29 mmol/L (22-30); Chloride 109 mmol/L (98-107); Estimated CRCL calculation 30 ml/min; Estimated Glomerular Filt Rate 33; Glucose 140 mg/dL (65-110); Potassium 3.5 mmol/L (3.4-5.0); Sodium 144 mmol/L (137-145)
[2024-10-20] MEDS: SODIUM CHLORIDE 0.45% 1,000 ML 75 ML IV CONT (18:14)
--- NOTE | 2024-10-20 18:58 | ADMIMU ---
This patient, Tip Calvo, was admitted to IMU status, and placed in IMU Room 232-01. Patient/family oriented to hospital policies and general routines including ID bracelet, bed and alarms, visiting hours, pain management, procedures, bathroom and other care routines, personal items, smoking policy, room service/diet, and visiting hours. Valuables list has been completed. Information on how to activate the Rapid Response Team has been discussed. Patient/Family are encouraged to report perceived risks to care and to ask questions if they do not understand what they are told or what they should do.
[2024-10-21] VITALS (18 sets, daily range): BP systolic 103–116; BP diastolic 55–69; PULSE 73–88; RESP 18–26; TEMP 36.6–37.6; O2SAT 90–100
[2024-10-21 04:37] LABS: Hematocrit 24.5 % (42.0-52.0); Hemoglobin 8.1 g/dL (14.0-18.0); Immature Granulocyte Percent A 1.6 % (0-0.5); Immature Platelet Fraction Pct 4.3 % (0.9-11.2); Lymphocytes Absolute Auto 1.59 K/mm3 (0.9-3.2); Mean Corpuscular HGB Conc 33.1 g/dl (32-36); Mean Corpuscular Hemoglobin 31.8 pg (26-34); Mean Corpuscular Volume 96.1 fl (80-100); Nucleated Red Blood Cells Absolute Auto 0.040 K/mm3 (0.0-0.012); Nucleated Red Blood Cells Perc 0.8 % (0.0-0.2); Platelet Count Result 36 k/mm3 (150-375); Red Blood Count 2.55 M/mm3 (4.6-6.20); White Blood Count 5.0 K/mm3 (4.5-10.0)
[2024-10-21 04:48] LABS: Alanine Aminotransferase 33 U/L (6-50); Albumin Level 2.5 g/dL (3.5-5.1); Alkaline Phosphatase 86 U/L (38-126); Anion Gap 7 mmol/L (4-12); Aspartate Amino Transferase 60 U/L (17-59); Bilirubin,Total 0.9 mg/dL (0.2-1.3); Blood Urea Nitrogen 48 mg/dL (9-20); Calcium 7.8 mg/dL (8.4-10.2); Carbon Dioxide 27 mmol/L (22-30); Chloride 110 mmol/L (98-107); Creatine Kinase 1320 U/L (55-170); Estimated CRCL calculation 31 ml/min; Estimated Glomerular Filt Rate 34; Glucose 146 mg/dL (65-110); Magnesium 1.8 mg/dL (1.6-2.3); Potassium 3.5 mmol/L (3.4-5.0); Sodium 144 mmol/L (137-145); Total Protein 5.0 g/dL (6.3-8.2)
[2024-10-21 04:52] LABS: INR 1.2; Prothrombin Time 15.4 Seconds (11.1-14.7)
[2024-10-21 04:53] LABS: Partial Thromboplastin Time 39.6 Seconds (22.3-36.8)
[2024-10-21 05:18] LABS: Thyroid Stimulating Hormone 3.140 uIU/mL (0.465-4.680)
[2024-10-21 05:29] LABS: Anisocytosis 1+; Hypochromasia 1+; Poikilocytosis 1+; Target Cells 1+
[2024-10-21 05:30] LABS: Acanthocytes 1+; Schistocytes Rare
[2024-10-21 05:31] LABS: Burr Cells 1+
[2024-10-21 06:28] LABS: Add Urine Microscopic? YES; Appearance Urine Clear (Clear); Glucose Urine UA Negative (Negative); Leukocyte Esterase Ur 2+ LEU/UL (Negative); Need Manual Microscopic Reviewed; Nitrate Urine Negative (Negative); Non Pathogenic Casts >20; Specific Grav Ur 1.014 (1.001-1.035)
[2024-10-21] MEDS: SODIUM CHLORIDE 0.45% 1,000 ML 75 ML IV CONT (08:38)
[2024-10-21] MEDS: FOLIC ACID 1 MG/0.2 ML INJ IV PUSH (09:00)
[2024-10-21] MEDS: CENTRAL LINE FLUSH 10 ML IV PUSH (09:00)
[2024-10-21] MEDS: PANTOPRAZOLE SODIUM IV 40 MG VIAL IV PUSH ×2 (09:00→21:15)
[2024-10-21] MEDS: cefTRIAXone 2 GM/NS 100 ML 2 GM/100 ML BAG IVPB (09:00)
--- NOTE | 2024-10-21 09:20 | P.PNIM_ITS ---
Progress Note: A&P Assessment and Plan (1) Shock: Code(s): R57.9 - Shock, unspecified Status: Acute Assessment and Plan: RESOLVED 10/17: EMS arrived at patient's house: he was found face down with, hypotensive with systolic in the 50s, patient given IV fluids in the ER, central line inserted, started on Levophed. CT head was negative. Chest x-ray with no focal infiltrate or effusion. CT chest abdomen pelvis with no acute findings. Face CT with extensive sinus disease with near complete opacification of the right maxillary sinus and dependently layering fluid in the bilateral sphenoid sinuses. Dental and periodontal disease with periapical lucency surrounding the posterior-most remaining right maxillary molar. -off Levophed since the morning of 10/18 -procalcitonin levels are at high -patient was started on cefepime and vancomycin which was discontinued since there was no nidus of infection -MRSA screen is negative, -10/17: Blood cultures negative-so far -no nidus of infection on either chest x-ray, CT chest abdomen and pelvis, UA was clear, -10/19: given low body temperature, elevated procalcitonin started on ceftriaxone empirically. Procalcitonin can also be raised in tissue injury -10/19: UA reflective of UTI, also given sinusitis on CT scan of the face, started patient on ceftriaxone since 10/19/2024. Urine culture not obtained Liquid stool. Could be tube feed related. Will check C diff (2) Altered mental status: Qualifiers: Altered mental status type: disorientation Qualified Code(s): R41.0 - Disorientation, unspecified Code(s): R41.82 - Altered mental status, unspecified Status: Acute Assessment and Plan: Altered mental status is multifactorial could be related to hypovolemia, shock, hypotension, acute kidney injury, rhabdomyolysis -CT brain was negative for intracranial abnormalities -MRI cannot be performed as patient was in the [place] and may have sharpnel exposure according to his daughter -10/19: Repeat CT brain did not show any acute intracranial hemorrhage or suspicious mass effect, inflammatory sinus disease. -10/19: CT facial bones showed extensive sinus disease with near complete opacification of the right maxillary sinus and dependently layering fluid in the bilateral sphenoid sinuses. Dental and periodontal disease with periapical lucency surrounding the posterior most remaining right maxillary molar (3) Fall (on) (from) other stairs and steps, initial encounter: Code(s): W10.8XXA - Fall (on) (from) other stairs and steps, initial encounter Status: Acute Assessment and Plan: Patient was found on the ground face down unknown amount of time, unknown etiology -continue treat underlying cause -10/18: Echocardiogram showed EF of 60-65%, normal biventricular size and systolic function, no significant valvular abnormalities (4) Acute kidney injury: Code(s): N17.9 - Acute kidney failure, unspecified Status: Acute Assessment and Plan: Acute kidney injury likely related to hypotension, hypovolemia, shock, rhabdomyolysis -patient received 3 L IV fluid bolus in the ER -started on bicarb infusion -patient was hypernatremic on admission, -sodium levels trending down gradually currently on bicarb infusion per Nephrology -continue to monitor urine output, electrolytes and renal function -patient presented with creatinine of 3.0 (baseline 1.0 in October 2023 at [facility]) -urine lytes not reflective of prerenal picture, urine eosinophils are negative -CT scan of the abdomen and pelvis did not show any hydronephrosis -renal ultrasound: No hydronephrosis or renal calculi, no apparent, findings to suggest the presence of medical renal disease. Simple cyst within the right kidney -CK levels trending down on admission [id number] peaked to 8292. -appreciate Nephrology evaluation and recommendation Conjunctival chemosis noted will slow down on IV fluids. Already getting tube feeds at 55 cc an hour (5) Rhabdomyolysis: Qualifiers: Encounter type: initial encounter Rhabdomyolysis type: traumatic Qualified Code(s): T79.6XXA - Traumatic ischemia of muscle, initial encounter Code(s): M62.82 - Rhabdomyolysis Status: Acute Assessment and Plan: Rhabdomyolysis likely related to being down on the ground for unknown amount of time -patient has been given 3 L IV fluids in the ER plus 500 mL of LR bolus in the ICU on 10/18. Patient seems to be adequately fluid-resuscitated -continue IV fluids per Nephrology CK levels trending down on admission 5864 peaked to 8292. (6) Electrolyte imbalance: Code(s): E87.8 - Other disorders of electrolyte and fluid balance, not elsewhere classified Status: Acute Assessment and Plan: Magnesium repleted (7) Anemia: Code(s): D64.9 - Anemia, unspecified Status: Acute Assessment and Plan: Patient dropped his hemoglobin this morning to 6.2 from 9.1 on admission -10/18: status post 2 units of packed RBCs -stool occult is negative -vitamin B12 levels are normal, folic acid is low will substitute -iron panel looks normal -hemoglobin remained stable (8) Thrombocytopenia: Code(s): D69.6 - Thrombocytopenia, unspecified Status: Acute Assessment and Plan: Thrombocytopenia with platelet counts of 62 this morning, 91 on admission -10/18: status post 1 unit of platelets -INR 1.2 on admission -platelets remain low, continue to monitor Plan DVT prophylaxis: SCDs, no chemoprophylaxis due to thrombocytopenia Stress ulcer prophylaxis: Protonix IV q.12 hours Nutrition: NG tube placed on 10/19: Started on tube feeds and tolerating Code Status: Full code Subjective Date/time seen: 10/21/24 09:20 Interval history: Patient weak and frail able to tell me his name. Still very lethargic. Chart reviewed. Rectal tube with liquid stool in them. Review of Systems Review of Systems: ROS unobtainable: Yes unobtainable due to medical condition and unobtainable due to mental status Exam Narrative: General: ill-appearing gentleman, currently in no acute distress lethargic HEENT:? Pupils equal and reactive, sclerae is clear, bad dentition, moist oral mucosa, left facial swelling noted, right facial droop noted Neck:? Supple Respiratory:? Clear to auscultation bilaterally, no wheezing, adequate air entry, decreased at bases Cardiac:? S1-S2 is normal, regular rate and rhythm Abdomen:? Soft, nontender, nondistended, hypoactive bowel sounds Extremities:? No edema, palpable pedal pulses, Neuro:? Patient is awake, but lethargic, able to tell me his name does not follow much commands. Skin:? Warm and dry Psych:? Confused Objective Data Vital Signs Vital Signs: Vital Signs - 24 hr 10/20/24 10:00 10/20/24 12:00 10/20/24 12:00 Temperature 97.2 F L Pulse Rate 65 66 70 Respiratory Rate 25 H Blood Pressure 126/75 Pulse Oximetry 98 Oxygen Delivery Fraction of Inspired Oxygen 10/20/24 14:00 10/20/24 16:00 10/20/24 16:00 Temperature 97.7 F Pulse Rate 67 70 68 Respiratory Rate 22 H Blood Pressure 104/70 Pulse Oximetry 99 Oxygen Delivery Fraction of Inspired Oxygen 10/20/24 18:00 10/20/24 18:26 10/20/24 19:45 Temperature 98.4 F 98.0 F Pulse Rate 70 71 73 Respiratory Rate 24 H 24 H Blood Pressure 119/70 102/57 L Pulse Oximetry 100 97 Oxygen Delivery Fraction of Inspired Oxygen 10/20/24 20:00 10/20/24 20:00 10/20/24 21:19 Temperature Pulse Rate 71 Respiratory Rate Blood Pressure Pulse Oximetry 97 Oxygen Delivery Room Air Room Air Fraction of Inspired Oxygen 21 10/20/24 22:00 10/20/24 23:55 10/21/24 00:00 Temperature Pulse Rate 76 75 Respiratory Rate Blood Pressure Pulse Oximetry Oxygen Delivery Room Air Fraction of Inspired Oxygen 10/21/24 00:00 10/21/24 02:00 10/21/24 04:00 Temperature 98.0 F 97.8 F Pulse Rate 76 75 75 Respiratory Rate 24 H 22 H Blood Pressure 116/69 116/67 Pulse Oximetry 100 96 Oxygen Delivery Fraction of Inspired Oxygen 10/21/24 04:00 10/21/24 04:15 10/21/24 06:00 Temperature Pulse Rate 73 77 Respiratory Rate Blood Pressure Pulse Oximetry Oxygen Delivery Room Air Fraction of Inspired Oxygen 10/21/24 08:12 Temperature 98.1 F Pulse Rate 75 Respiratory Rate 18 Blood Pressure 106/62 Pulse Oximetry 100 Oxygen Delivery Fraction of Inspired Oxygen Intake/Output Intake/Output: Intake & Output 10/18/24 10/19/24 10/20/24 10/21/24 23:59 23:59 23:59 23:59 Intake Total 4607.0 4128.4 3776.8 1909 Output Total 589 927 4152 1050 Balance 4132.0 3328.4 2726.8 859 Meds/Results Medications: Active Medications Generic Name Dose Route Start Last Admin Trade Name Freq PRN Reason Stop Dose Admin Dextrose 12.5 gm 10/17/24 21:26 Dextrose 50% 25 Gm/50 Ml Syringe IV PUSH PRN PRN Hypoglycemia Protocol Enoxaparin Sodium 30 mg 10/18/24 09:00 Enoxaparin 30 Mg/0.3 Ml Syringe SUB-Q DAILY JHONY Folic Acid 1 mg 10/19/24 09:10 10/21/24 09:00 Folic Acid 1 Mg/0.2 Ml Inj IV PUSH 1 mg QAM JHONY Administration Glucagon 1 mg 10/17/24 21:26 Glucagon For Inj 1 Mg Vial IM PRN PRN Hypoglycemia Protocol Glucose 15 gm 10/17/24 21:26 Glucose Oral Gel 15 Gm Of Glucse In 37.5 Gm Tube PO PRN PRN Hypoglycemia Protocol Dextrose 1,000 mls @ 100 mls/hr 10/17/24 21:26 Dextrose 5% 1,000 Ml IVPB PRN PRN Hypoglycemia Protocol Ceftriaxone Sodium 2 gm in 100 mls @ 200 mls/hr 10/19/24 09:00 10/21/24 09:00 Rocephin 2 Gm/Ns 100 Ml IVPB 200 mls/hr Q24H JHONY Administration Sodium Chloride 1,000 mls @ 75 mls/hr 10/20/24 17:55 10/21/24 08:38 Sodium Chloride 0.45% IV CONT 75 mls/hr .[id number] JHONY Administration Pantoprazole Sodium 40 mg 10/18/24 21:00 10/21/24 09:00 Pantoprazole Sodium Iv 40 Mg Vial IV PUSH 40 mg Q12HR JHONY Administration Sodium Chloride 10 ml 10/17/24 14:00 10/21/24 09:00 Central Line Flush IV PUSH 10 ml Q8HR JHONY Administration Sodium Chloride 20 ml 10/17/24 13:27 Central Line Flush IV PUSH PRN PRN after blood draws Radiology Results: ITS Impressions Chest X-Ray 10/17/24 10:45 IMPRESSION: No focal infiltrate or effusion. Chest/Abdomen/Pelvis CT 10/17/24 10:46 IMPRESSION: No hollow or solid organ injury. No acute fractures. Head CT 10/19/24 09:19 Impression: No acute intracranial hemorrhage or suspicious mass effect. Inflammatory sinus disease. Face CT 10/19/24 09:39 IMPRESSION: 1. Extensive sinus disease with near complete opacification of the right maxillary sinus and dependently layering fluid in the bilateral sphenoid sinuses. Correlate clinically for acute sinusitis. 2. Dental and periodontal disease with periapical lucency surrounding the posterior most remaining right maxillary molar. Renal Ultrasound 10/19/24 09:48 IMPRESSION: No hydronephrosis or renal calculi. No parenchymal findings to suggest the presence of medical renal disease. Simple cysts within the right kidney, for which no further follow-up is needed. Abdomen X-Ray 10/19/24 11:15 IMPRESSION: Nasogastric tube in good position and ready for immediate use. Labs Labs: Laboratory Results - last 24 hr 10/20/24 10/20/24 10/20/24 11:09 17:13 17:43 WBC RBC Hgb Hct MCV MCH MCHC RDW Plt Count MPV Immature Gran % (Auto) Neut % (Auto) Lymph % (Auto) [place] % (Auto) Eos % (Auto) Baso % (Auto) Lymph # (Auto) [place] # (Auto) Eos # (Auto) Baso # (Auto) Abs Immat Gran (auto) Absolute Neuts (auto) Absolute Nucleated RBC Band Neutrophils % Nucleated RBC % Platelet Estimate % Immature Plt Fraction Hypochromasia Poikilocytosis Anisocytosis Target Cells [place] Cells Acanthocytes (Spur) Schistocytes PT INR APTT Sodium 144 Potassium 3.5 Chloride 109 H Carbon Dioxide 29 Anion Gap 6 BUN 53 H Creatinine 2.02 H Estim Creat Clear Calc 30 Estimated GFR 33 L Glucose 140 H POC Capillary Glucose 149 H 131 H Calcium 7.3 L Phosphorus Magnesium Total Bilirubin AST ALT Alkaline Phosphatase Total Creatine Kinase Total Protein Albumin TSH Urine Color Urine Appearance Urine pH Ur Specific [place] Urine Protein Urine Glucose (UA) Urine Ketones Ur Blood (Man) Urine Nitrate Urine Bilirubin Urine Urobilinogen Ur Leukocyte Esterase Add Ur Microanalysis Urine RBC Urine WBC Ur Squamous Epith Cells Urine Bacteria Urine Casts Hyaline Casts 10/20/24 10/21/24 10/21/24 23:39 04:27 06:05 WBC 5.0 RBC 2.55 L Hgb 8.1 L Hct 24.5 L MCV 96.1 MCH 31.8 MCHC 33.1 RDW 19.1 H Plt Count 36 L MPV 9.7 Immature Gran % (Auto) 1.6 H Neut % (Auto) 53.8 Lymph % (Auto) 32.1 [place] % (Auto) 10.1 H Eos % (Auto) 2.2 Baso % (Auto) 0.2 Lymph # (Auto) 1.59 [place] # (Auto) 0.5 Eos # (Auto) 0.1 Baso # (Auto) 0.0 Abs Immat Gran (auto) 0.08 H Absolute Neuts (auto) 2.7 Absolute Nucleated RBC 0.040 H Band Neutrophils % Not Reportable Nucleated RBC % 0.8 H Platelet Estimate Decreased % Immature Plt Fraction 4.3 Hypochromasia 1+ Poikilocytosis 1+ Anisocytosis 1+ Target Cells 1+ [place] Cells 1+ Acanthocytes (Spur) 1+ Schistocytes Rare PT 15.4 H INR 1.2 APTT 39.6 H Sodium 144 Potassium 3.5 Chloride 110 H Carbon Dioxide 27 Anion Gap 7 BUN 48 H Creatinine 1.96 H Estim Creat Clear Calc 31 Estimated GFR 34 L Glucose 146 H POC Capillary Glucose 144 H Calcium 7.8 L Phosphorus 2.5 Magnesium 1.8 Total Bilirubin 0.9 AST 60 H ALT 33 Alkaline Phosphatase 86 Total Creatine Kinase 1320 H Total Protein 5.0 L Albumin 2.5 L TSH 3.140 Urine Color Yellow Urine Appearance Clear Urine pH 6.0 Ur Specific [place] 1.014 Urine Protein 2+ H Urine Glucose (UA) Negative Urine Ketones Negative Ur Blood (Man) 3+ H Urine Nitrate Negative Urine Bilirubin Negative Urine Urobilinogen 1.0 Ur Leukocyte Esterase 2+ H Add Ur Microanalysis Reviewed Urine RBC 11-20 H Urine WBC 11-20 H Ur Squamous Epith Cells None seen Urine Bacteria None seen Urine Casts >20 Hyaline Casts Present
--- NOTE | 2024-10-21 10:16 | P.PNNP_ITS ---
Progress Note: A&P Assessment and Plan (1) Acute kidney injury: Code(s): N17.9 - Acute kidney failure, unspecified Status: Acute Assessment and Plan: * Creatinine was 3 when he was admitted, now down to 1.56 * creatinine 1.0mg/l in October 2023 (from [facility] labs) * evaluation to date noted: * CT scan without evidence of obstruction * urine eosinophils negative * elevated CPK noted - follow trend * urine electrolytes prerenal * UA negative for infection * suspect that the etiology is multifactorial: * hemodynamic instability/shock * prerenal factors/hypovolemia * rhabodmyolysis * infection (although no evidence to date) * other(?) * s/p aggressive IVF resuscitation * He is getting 1/2NS. * sodium down. * tolerating TFs and ree water flushes. * CO2 level stable off the bicarb drip * Sodium level is a little better at 144. (2) Hypernatremia: Code(s): E87.0 - Hyperosmolality and hypernatremia Status: Acute Assessment and Plan: * sodium normal by October 2023 labs * presumably due to significant free water deficit * getting 1/2NS. * will stop ivfs and continue enteral nutrition and free water. (3) Rhabdomyolysis: Code(s): M62.82 - Rhabdomyolysis Status: Acute Assessment and Plan: * noted admission CPK * CPK Coming down. Now 1320. * this is lower than what usually causes renal issues. * ua still shows some blood. he will probably need eval for this as usually won't have myoglobinuria with ck this low. * repeat CK tomorrow (4) Shock: Code(s): R57.9 - Shock, unspecified Status: Acute Assessment and Plan: * as noted on presentation * improved (5) Anemia: Code(s): D64.9 - Anemia, unspecified Status: Acute Assessment and Plan: * hemoglobin dropped to 6.2 and transfusion given. Now 8.1 * will start epo. * follow hb. (6) Thrombocytopenia: Code(s): D69.6 - Thrombocytopenia, unspecified Status: Acute Assessment and Plan: * etiology? * Platelet count still up and down. Today's in the 40s. * Possibly due to sepsis? * consider hematology consult? (7) Altered mental status: Code(s): R41.82 - Altered mental status, unspecified Status: Acute Assessment and Plan: * as noted on admission and currently * suspect due to acute illness - shock, ALEJANDRO/ARF, rhabdomyolysis...etc * CT of brain negative * MRI of brain ordered (to r/o CVA/stroke) . This is going to happen this morning. * follow mentation . his mental status waxes and wanes. (8) Fall (on) (from) other stairs and steps, initial encounter: Code(s): W10.8XXA - Fall (on) (from) other stairs and steps, initial encounter Status: Acute Assessment and Plan: * presumed based on history... * found on the ground face down * unknown duration and etiology * Echo shows good left and right sides. * continue supportive therapy Subjective Date/time seen: 10/21/24 10:16 Interval history: Patient opens his eyes and mumbles when I shake his shoulder and call his name. I talked with Nursing and his mental status has been waxing and waning. He was saying some words overnight. Exam Narrative: WDWN in NAD skin no rash or sq nodules head ncat lungs clear bilaterally cor reg no rub or gallop abd BS+ nontender and soft ext no edema. Objective Data Vital Signs Vital Signs: Vital Signs - 24 hr 10/20/24 12:00 10/20/24 12:00 10/20/24 14:00 Temperature 97.2 F L Pulse Rate 66 70 67 Respiratory Rate 25 H Blood Pressure 126/75 Pulse Oximetry 98 Oxygen Delivery Fraction of Inspired Oxygen 10/20/24 16:00 10/20/24 16:00 10/20/24 18:00 Temperature 97.7 F Pulse Rate 70 68 70 Respiratory Rate 22 H Blood Pressure 104/70 Pulse Oximetry 99 Oxygen Delivery Fraction of Inspired Oxygen 10/20/24 18:26 10/20/24 19:45 10/20/24 20:00 Temperature 98.4 F 98.0 F Pulse Rate 71 73 71 Respiratory Rate 24 H 24 H Blood Pressure 119/70 102/57 L Pulse Oximetry 100 97 Oxygen Delivery Fraction of Inspired Oxygen 10/20/24 20:00 10/20/24 21:19 10/20/24 22:00 Temperature Pulse Rate 76 Respiratory Rate Blood Pressure Pulse Oximetry 97 Oxygen Delivery Room Air Room Air Fraction of Inspired Oxygen 21 /31/25 23:55 10/21/24 00:00 10/21/24 00:00 Temperature 98.0 F Pulse Rate 75 76 Respiratory Rate 24 H Blood Pressure 116/69 Pulse Oximetry 100 Oxygen Delivery Room Air Fraction of Inspired Oxygen 10/21/24 02:00 10/21/24 04:00 10/21/24 04:00 Temperature 97.8 F Pulse Rate 75 75 73 Respiratory Rate 22 H Blood Pressure 116/67 Pulse Oximetry 96 Oxygen Delivery Fraction of Inspired Oxygen 10/21/24 04:15 10/21/24 06:00 10/21/24 08:12 Temperature 98.1 F Pulse Rate 77 75 Respiratory Rate 18 Blood Pressure 106/62 Pulse Oximetry 100 Oxygen Delivery Room Air Fraction of Inspired Oxygen Intake/Output Intake/Output: Intake & Output 10/18/24 10/19/24 10/20/24 10/21/24 23:59 23:59 23:59 23:59 Intake Total 4607.0 4128.4 3776.8 1909 Output Total 005 285 7670 1050 Balance 4132.0 3328.4 2726.8 859 Meds/Results Medications: Active Medications Generic Name Dose Route Start Last Admin Trade Name Freq PRN Reason Stop Dose Admin Dextrose 12.5 gm 10/17/24 21:26 Dextrose 50% 25 Gm/50 Ml Syringe IV PUSH PRN PRN Hypoglycemia Protocol Enoxaparin Sodium 30 mg 10/18/24 09:00 Enoxaparin 30 Mg/0.3 Ml Syringe SUB-Q DAILY JHONY Folic Acid 1 mg 10/19/24 09:10 10/21/24 09:00 Folic Acid 1 Mg/0.2 Ml Inj IV PUSH 1 mg QAM JHONY Administration Glucagon 1 mg 10/17/24 21:26 Glucagon For Inj 1 Mg Vial IM PRN PRN Hypoglycemia Protocol Glucose 15 gm 10/17/24 21:26 Glucose Oral Gel 15 Gm Of Glucse In 37.5 Gm Tube PO PRN PRN Hypoglycemia Protocol Dextrose 1,000 mls @ 100 mls/hr 10/17/24 21:26 Dextrose 5% 1,000 Ml IVPB PRN PRN Hypoglycemia Protocol Ceftriaxone Sodium 2 gm in 100 mls @ 200 mls/hr 10/19/24 09:00 10/21/24 09:00 Rocephin 2 Gm/Ns 100 Ml IVPB 200 mls/hr Q24H JHONY Administration Sodium Chloride 1,000 mls @ 75 mls/hr 10/20/24 17:55 10/21/24 08:38 Sodium Chloride 0.45% IV CONT 75 mls/hr .[id number] JHONY Administration Pantoprazole Sodium 40 mg 10/18/24 21:00 10/21/24 09:00 Pantoprazole Sodium Iv 40 Mg Vial IV PUSH 40 mg Q12HR JHONY Administration Sodium Chloride 10 ml 10/17/24 14:00 10/21/24 09:00 Central Line Flush IV PUSH 10 ml Q8HR JHONY Administration Sodium Chloride 20 ml 10/17/24 13:27 Central Line Flush IV PUSH PRN PRN after blood draws Radiology Results: ITS Impressions Chest X-Ray 10/17/24 10:45 IMPRESSION: No focal infiltrate or effusion. Chest/Abdomen/Pelvis CT 10/17/24 10:46 IMPRESSION: No hollow or solid organ injury. No acute fractures. Head CT 10/19/24 09:19 Impression: No acute intracranial hemorrhage or suspicious mass effect. Inflammatory sinus disease. Face CT 10/19/24 09:39 IMPRESSION: 1. Extensive sinus disease with near complete opacification of the right maxillary sinus and dependently layering fluid in the bilateral sphenoid sinuses. Correlate clinically for acute sinusitis. 2. Dental and periodontal disease with periapical lucency surrounding the posterior most remaining right maxillary molar. Renal Ultrasound 10/19/24 09:48 IMPRESSION: No hydronephrosis or renal calculi. No parenchymal findings to suggest the presence of medical renal disease. Simple cysts within the right kidney, for which no further follow-up is needed. Abdomen X-Ray 10/19/24 11:15 IMPRESSION: Nasogastric tube in good position and ready for immediate use. Labs Labs: Laboratory Results - last 24 hr 10/20/24 10/20/24 10/20/24 11:09 17:13 17:43 WBC RBC Hgb Hct MCV MCH MCHC RDW Plt Count MPV Immature Gran % (Auto) Neut % (Auto) Lymph % (Auto) [place] % (Auto) Eos % (Auto) Baso % (Auto) Lymph # (Auto) [place] # (Auto) Eos # (Auto) Baso # (Auto) Abs Immat Gran (auto) Absolute Neuts (auto) Absolute Nucleated RBC Band Neutrophils % Nucleated RBC % Platelet Estimate % Immature Plt Fraction Hypochromasia Poikilocytosis Anisocytosis Target Cells [place] Cells Acanthocytes (Spur) Schistocytes PT INR APTT Sodium 144 Potassium 3.5 Chloride 109 H Carbon Dioxide 29 Anion Gap 6 BUN 53 H Creatinine 2.02 H Estim Creat Clear Calc 30 Estimated GFR 33 L Glucose 140 H POC Capillary Glucose 149 H 131 H Calcium 7.3 L Phosphorus Magnesium Total Bilirubin AST ALT Alkaline Phosphatase Total Creatine Kinase Total Protein Albumin TSH Urine Color Urine Appearance Urine pH Ur Specific [place] Urine Protein Urine Glucose (UA) Urine Ketones Ur Blood (Man) Urine Nitrate Urine Bilirubin Urine Urobilinogen Ur Leukocyte Esterase Add Ur Microanalysis Urine RBC Urine WBC Ur Squamous Epith Cells Urine Bacteria Urine Casts Hyaline Casts 10/20/24 10/21/24 10/21/24 23:39 04:27 06:05 WBC 5.0 RBC 2.55 L Hgb 8.1 L Hct 24.5 L MCV 96.1 MCH 31.8 MCHC 33.1 RDW 19.1 H Plt Count 36 L MPV 9.7 Immature Gran % (Auto) 1.6 H Neut % (Auto) 53.8 Lymph % (Auto) 32.1 [place] % (Auto) 10.1 H Eos % (Auto) 2.2 Baso % (Auto) 0.2 Lymph # (Auto) 1.59 [place] # (Auto) 0.5 Eos # (Auto) 0.1 Baso # (Auto) 0.0 Abs Immat Gran (auto) 0.08 H Absolute Neuts (auto) 2.7 Absolute Nucleated RBC 0.040 H Band Neutrophils % Not Reportable Nucleated RBC % 0.8 H Platelet Estimate Decreased % Immature Plt Fraction 4.3 Hypochromasia 1+ Poikilocytosis 1+ Anisocytosis 1+ Target Cells 1+ [place]me[place] Cells 1+ Acanthocytes (Spur) 1+ Schistocytes Rare PT 15.4 H INR 1.2 APTT 39.6 H Sodium 144 Potassium 3.5 Chloride 110 H Carbon Dioxide 27 Anion Gap 7 BUN 48 H Creatinine 1.96 H Estim Creat Clear Calc 31 Estimated GFR 34 L Glucose 146 H POC Capillary Glucose 144 H Calcium 7.8 L Phosphorus 2.5 Magnesium 1.8 Total Bilirubin 0.9 AST 60 H ALT 33 Alkaline Phosphatase 86 Total Creatine Kinase 1320 H Total Protein 5.0 L Albumin 2.5 L TSH 3.140 Urine Color Yellow Urine Appearance Clear Urine pH 6.0 Ur Specific [place] 1.014 Urine Protein 2+ H Urine Glucose (UA) Negative Urine Ketones Negative Ur Blood (Man) 3+ H Urine Nitrate Negative Urine Bilirubin Negative Urine Urobilinogen 1.0 Ur Leukocyte Esterase 2+ H Add Ur Microanalysis Reviewed Urine RBC 11-20 H Urine WBC 11-20 H Ur Squamous Epith Cells None seen Urine Bacteria None seen Urine Casts >20 Hyaline Casts Present
[2024-10-22] VITALS (15 sets, daily range): BP systolic 107–144; BP diastolic 59–73; PULSE 76–87; RESP 22–222; TEMP 36.7–37.2; O2SAT 97–100
[2024-10-22 04:46] LABS: Hematocrit 24.5 % (42.0-52.0); Hemoglobin 8.0 g/dL (14.0-18.0); Immature Granulocyte Percent A 1.4 % (0-0.5); Immature Platelet Fraction Pct 8.3 % (0.9-11.2); Lymphocytes Absolute Auto 1.78 K/mm3 (0.9-3.2); Mean Corpuscular HGB Conc 32.7 g/dl (32-36); Mean Corpuscular Hemoglobin 31.4 pg (26-34); Mean Corpuscular Volume 96.1 fl (80-100); Nucleated Red Blood Cells Absolute Auto 0.030 K/mm3 (0.0-0.012); Nucleated Red Blood Cells Perc 0.4 % (0.0-0.2); Platelet Count Result 34 k/mm3 (150-375); Red Blood Count 2.55 M/mm3 (4.6-6.20); White Blood Count 8.0 K/mm3 (4.5-10.0)
[2024-10-22 04:59] LABS: Alanine Aminotransferase 30 U/L (6-50); Albumin Level 2.5 g/dL (3.5-5.1); Alkaline Phosphatase 85 U/L (38-126); Anion Gap 7 mmol/L (4-12); Aspartate Amino Transferase 48 U/L (17-59); Bilirubin,Total 0.8 mg/dL (0.2-1.3); Blood Urea Nitrogen 43 mg/dL (9-20); Calcium 8.4 mg/dL (8.4-10.2); Carbon Dioxide 27 mmol/L (22-30); Chloride 111 mmol/L (98-107); Creatine Kinase 634 U/L (55-170); Estimated CRCL calculation 33 ml/min; Estimated Glomerular Filt Rate 37; Glucose 138 mg/dL (65-110); Magnesium 1.8 mg/dL (1.6-2.3); Potassium 3.5 mmol/L (3.4-5.0); Sodium 145 mmol/L (137-145); Total Protein 5.0 g/dL (6.3-8.2)
[2024-10-22 05:08] LABS: Anisocytosis 2+; Hypochromasia 1+; Schistocytes None Seen
[2024-10-22] MEDS: cefTRIAXone 2 GM/NS 100 ML 2 GM/100 ML BAG IVPB (08:59)
[2024-10-22] MEDS: PANTOPRAZOLE SODIUM IV 40 MG VIAL IV PUSH ×2 (08:59→20:39)
[2024-10-22] MEDS: FOLIC ACID 1 MG/0.2 ML INJ IV PUSH (09:00)
--- NOTE | 2024-10-22 12:28 | WPDNEURCNPN ---
Assessment and Plan Assessment and plan (1) Altered mental status: Qualifiers: Altered mental status type: disorientation Qualified Code(s): R41.0 - Disorientation, unspecified Code(s): R41.82 - Altered mental status, unspecified Status: Acute (2) Acute kidney injury: Code(s): N17.9 - Acute kidney failure, unspecified Status: Acute (3) Rhabdomyolysis: Qualifiers: Encounter type: initial encounter Rhabdomyolysis type: traumatic Qualified Code(s): T79.6XXA - Traumatic ischemia of muscle, initial encounter Code(s): M62.82 - Rhabdomyolysis Status: Acute (4) Fall (on) (from) other stairs and steps, initial encounter: Code(s): W10.8XXA - Fall (on) (from) other stairs and steps, initial encounter Status: Acute (5) Anemia: Code(s): D64.9 - Anemia, unspecified Status: Acute (6) Hypotension: Qualifiers: Hypotension type: unspecified hypotension type Qualified Code(s): I95.9 - Hypotension, unspecified Code(s): I95.9 - Hypotension, unspecified Status: Acute Plan At this time the picture is that of the metabolic encephalopathy however he may have suffered watershed infarcts due to hypotension and having not been found for indeterminate time. MRI of the brain may help identify infarctions. CT scan of brain did not show any significant abnormality. EEG is also recommended. Supportive care is in place. His electrolytes and renal condition has improved compared to baseline however his hemoglobin still low at 8.0. [place] [address]. He will require further attention to many of these issues. Serum sodium was high at 155 but is now down to 145. BUN is now 43 and creatinine is 1.84 and he is also improving. His CPK was very high and now is lower than before at 6:34 a.m.. Vitamin B12 level was within normal range however folic acid level low at 1.5. At this time clinical follow-up and supportive care is recommended. Consult date: 10/22/24 HPI: Tip Calvo is a 69 year old male With history of having been found with face down in his home. He was not seen for 2 weeks prior to that. Was found to have rhabdomyolysis as well as evidence for dehydration and renal insufficiency. Patient has been evaluated and treated for these and has also been seen by public health physician. CT scan of brain did not show any abnormality. Patient is unable to give much in the way of history. There is a nasogastric feeding tube in place. He does seem to be awake and when I asked him how old he was he did tell me 69 in the whisper. He would squeeze my hands slightly however I am not able to get much else history or cooperation from him at this time. Review of Systems Review of Systems: ROS unobtainable: Yes unobtainable due to mental status [facility] Past Medical History Medical History Cancer Gout Social History Social History Smoking packs per day: 0.3 Smoking cigarettes per day: 6.0 Smoking status: Former smoker Additional smoking assessment comments: unknown when quit Spiritual care concerns: No Meds Home Medications and Allergies Home Medications ?Medication ?Instructions ?Recorded ?Confirmed ?Type allopurinol 100 mg tablet 100 mg PO DAILY 10/18/24 10/18/24 History amlodipine 10 mg tablet 10 mg PO DAILY 10/18/24 10/18/24 History aspirin 81 mg tablet,delayed 81 mg PO DAILY 10/18/24 10/18/24 History release carvedilol 12.5 mg tablet 12.5 mg PO BID 10/18/24 10/18/24 History rosuvastatin 10 mg tablet 10 mg PO DAILY 10/18/24 10/18/24 History Allergies Allergy/AdvReac Type Severity Reaction Status Date / Time lisinopril Allergy Severe angioedema Verified 10/18/24 13:19 fenofibrate Allergy Intermediate hives Verified 10/18/24 13:19 Penicillins Allergy hives Verified 10/18/24 13:19 Vital Signs Vital Signs - 24 hr 10/21/24 14:00 10/21/24 16:00 10/21/24 16:00 Temperature Pulse Rate 82 80 Respiratory Rate Blood Pressure Pulse Oximetry Oxygen Delivery Room Air Oxygen Flow Rate Fraction of Inspired Oxygen 10/21/24 16:35 10/21/24 18:00 10/21/24 18:53 Temperature 98.0 F 98.9 F Pulse Rate 80 85 87 Respiratory Rate 20 24 H Blood Pressure 107/60 112/62 Pulse Oximetry 98 94 Oxygen Delivery Oxygen Flow Rate Fraction of Inspired Oxygen 10/21/24 20:00 10/21/24 20:00 10/21/24 20:00 Temperature 99.6 F Pulse Rate 88 88 Respiratory Rate 26 H Blood Pressure 105/60 Pulse Oximetry 100 Oxygen Delivery Room Air Oxygen Flow Rate Fraction of Inspired Oxygen 10/21/24 21:50 10/21/24 21:55 10/21/24 22:00 Temperature Pulse Rate 83 85 81 Respiratory Rate 24 H Blood Pressure Pulse Oximetry 90 98 Oxygen Delivery Room Air Nasal Cannula Oxygen Flow Rate 2 Fraction of Inspired Oxygen 21 10/22/24 00:00 10/22/24 00:00 10/22/24 00:00 Temperature 98.9 F Pulse Rate 78 78 Respiratory Rate 222 H Blood Pressure 116/64 Pulse Oximetry 100 100 Oxygen Delivery Nasal Cannula Oxygen Flow Rate 2 Fraction of Inspired Oxygen 10/22/24 02:00 10/22/24 04:00 10/22/24 04:00 Temperature 98.5 F Pulse Rate 77 78 Respiratory Rate 22 H Blood Pressure 119/63 Pulse Oximetry 97 100 Oxygen Delivery Room Air Oxygen Flow Rate Fraction of Inspired Oxygen 10/22/24 04:00 10/22/24 06:00 10/22/24 07:54 Temperature 98.1 F Pulse Rate 76 78 78 Respiratory Rate 32 H Blood Pressure 107/59 L Pulse Oximetry 99 Oxygen Delivery Oxygen Flow Rate Fraction of Inspired Oxygen 10/22/24 08:00 10/22/24 08:00 10/22/24 10:00 Temperature Pulse Rate 78 80 Respiratory Rate Blood Pressure Pulse Oximetry Oxygen Delivery Room Air Oxygen Flow Rate Fraction of Inspired Oxygen 10/22/24 12:00 10/22/24 12:17 Temperature 99.0 F Pulse Rate 81 Respiratory Rate 22 H Blood Pressure 115/62 Pulse Oximetry 97 97 Oxygen Delivery Room Air Oxygen Flow Rate Fraction of Inspired Oxygen Exam Narrative: Patient appears awake and was able to tell me his age. He does not display any abnormal behavior. He has very come. Nasogastric tube was noted in place for feeding. Pupils were equal reacting. He is unable to cooperate for visual field testing. No facial asymmetry. He did slightly move his hands when I ask him to squeeze. He would not move his legs do asked to do so. Sensory examination was also limited in view of these. No cogwheeling or involuntary movements are seen. No asymmetry of tone on both sides was noted at this time. Results Labs 10/22/24 04:23 10/22/24 04:23 Labs: Short CBC 10/22/24 Range/Units 04:23 WBC 8.0 (4.5-10.0) K/mm3 Hgb 8.0 L (14.0-18.0) g/dL Hct 24.5 L (42.0-52.0) % Plt Count 34 L (150-375) k/mm3 BMP 10/22/24 04:23 Sodium 145 Potassium 3.5 Chloride 111 H Carbon Dioxide 27 BUN 43 H Creatinine 1.84 H Glucose 138 H Calcium 8.4 Cardiac Enzymes 10/22/24 Range/Units 04:23 Total Creatine Kinase 634 H (55-170) U/L Liver Function 10/22/24 Range/Units 04:23 Total Bilirubin 0.8 (0.2-1.3) mg/dL AST 48 (17-59) U/L ALT 30 (6-50) U/L Alkaline Phosphatase 85 (38-126) U/L Albumin 2.5 L (3.5-5.1) g/dL
--- NOTE | 2024-10-22 12:37 | PM.IMPN ---
Progress Note: A&P Assessment and Plan (1) Shock: Code(s): R57.9 - Shock, unspecified Status: Acute Assessment and Plan: RESOLVED 10/17: EMS arrived at patient's house: he was found face down with, hypotensive with systolic in the 50s, patient given IV fluids in the ER, central line inserted, started on Levophed. CT head was negative. Chest x-ray with no focal infiltrate or effusion. CT chest abdomen pelvis with no acute findings. Face CT with extensive sinus disease with near complete opacification of the right maxillary sinus and dependently layering fluid in the bilateral sphenoid sinuses. Dental and periodontal disease with periapical lucency surrounding the posterior-most remaining right maxillary molar. -off Levophed since the morning of 10/18 -procalcitonin levels are at high -patient was started on cefepime and vancomycin which was discontinued since there was no nidus of infection -MRSA screen is negative, -10/17: Blood cultures negative-so far -no nidus of infection on either chest x-ray, CT chest abdomen and pelvis, UA was clear, -10/19: given low body temperature, elevated procalcitonin started on ceftriaxone empirically. Procalcitonin can also be raised in tissue injury -10/19: UA reflective of UTI, also given sinusitis on CT scan of the face, started patient on ceftriaxone since 10/19/2024. Urine culture not obtained Liquid stool. Could be tube feed related. Checking C diff (2) Altered mental status: Qualifiers: Altered mental status type: disorientation Qualified Code(s): R41.0 - Disorientation, unspecified Code(s): R41.82 - Altered mental status, unspecified Status: Acute Assessment and Plan: Altered mental status is multifactorial could be related to hypovolemia, shock, hypotension, acute kidney injury, rhabdomyolysis -CT brain was negative for intracranial abnormalities -MRI cannot be performed as patient was in the [place] and may have sharpnel exposure according to his daughter -10/19: Repeat CT brain did not show any acute intracranial hemorrhage or suspicious mass effect, inflammatory sinus disease. -10/19: CT facial bones showed extensive sinus disease with near complete opacification of the right maxillary sinus and dependently layering fluid in the bilateral sphenoid sinuses. Dental and periodontal disease with periapical lucency surrounding the posterior most remaining right maxillary molar Despite improvement in metabolic issues he remains encephalopathic Will further evaluate with MRI brain and EEG. Neurology consultation (3) Fall (on) (from) other stairs and steps, initial encounter: Code(s): W10.8XXA - Fall (on) (from) other stairs and steps, initial encounter Status: Acute Assessment and Plan: Patient was found on the ground face down unknown amount of time, unknown etiology -continue treat underlying cause -10/18: Echocardiogram showed EF of 60-65%, normal biventricular size and systolic function, no significant valvular abnormalities (4) Acute kidney injury: Code(s): N17.9 - Acute kidney failure, unspecified Status: Acute Assessment and Plan: Acute kidney injury likely related to hypotension, hypovolemia, shock, rhabdomyolysis -patient received 3 L IV fluid bolus in the ER -started on bicarb infusion -patient was hypernatremic on admission, -sodium levels trending down gradually currently on bicarb infusion per Nephrology -continue to monitor urine output, electrolytes and renal function -patient presented with creatinine of 3.0 (baseline 1.0 in October 2023 at [facility]) -urine lytes not reflective of prerenal picture, urine eosinophils are negative -CT scan of the abdomen and pelvis did not show any hydronephrosis -renal ultrasound: No hydronephrosis or renal calculi, no apparent, findings to suggest the presence of medical renal disease. Simple cyst within the right kidney -CK levels trending down on admission 5864 peaked to 8292. -appreciate Nephrology evaluation and recommendation Conjunctival chemosis noted will slow down on IV fluids. Already getting tube feeds at 55 cc an hour (5) Rhabdomyolysis: Qualifiers: Encounter type: initial encounter Rhabdomyolysis type: traumatic Qualified Code(s): T79.6XXA - Traumatic ischemia of muscle, initial encounter Code(s): M62.82 - Rhabdomyolysis Status: Acute Assessment and Plan: Rhabdomyolysis likely related to being down on the ground for unknown amount of time -patient has been given 3 L IV fluids in the ER plus 500 mL of LR bolus in the ICU on 10/18. Patient seems to be adequately fluid-resuscitated -continue IV fluids per Nephrology CK levels trending down on admission 5864 peaked to 8292. (6) Electrolyte imbalance: Code(s): E87.8 - Other disorders of electrolyte and fluid balance, not elsewhere classified Status: Acute Assessment and Plan: Magnesium repleted (7) Anemia: Code(s): D64.9 - Anemia, unspecified Status: Acute Assessment and Plan: Patient dropped his hemoglobin this morning to 6.2 from 9.1 on admission -10/18: status post 2 units of packed RBCs -stool occult is negative -vitamin B12 levels are normal, folic acid is low will substitute -iron panel looks normal -hemoglobin remained stable (8) Thrombocytopenia: Code(s): D69.6 - Thrombocytopenia, unspecified Status: Acute Assessment and Plan: Thrombocytopenia with platelet counts of 62 this morning, 91 on admission -10/18: status post 1 unit of platelets -INR 1.2 on admission -platelets remain low, continue to monitor Does have history of chronic alcohol abuse per family. Plan DVT prophylaxis: SCDs, no chemoprophylaxis due to thrombocytopenia Stress ulcer prophylaxis: Protonix IV q.12 hours Nutrition: NG tube placed on 10/19: Started on tube feeds and tolerating Code Status: Full code Subjective Date/time seen: 10/22/24 12:37 Interval history: No overnight events patient is still lethargic. Answers few questions. Review of Systems Review of Systems: ROS unobtainable: Yes unobtainable due to medical condition Exam Narrative: General: ill-appearing gentleman, currently in no acute distress lethargic HEENT:? Pupils equal and reactive, sclerae is clear, bad dentition, moist oral mucosa, left facial swelling noted, right facial droop noted Neck:? Supple Respiratory:? Clear to auscultation bilaterally, no wheezing, adequate air entry, decreased at bases Cardiac:? S1-S2 is normal, regular rate and rhythm Abdomen:? Soft, nontender, nondistended, hypoactive bowel sounds Extremities:? No edema, palpable pedal pulses, Neuro:? Patient is awake, but lethargic, able to tell me his name does not follow much commands. Skin:? Warm and dry Psych:? Confused Objective Data Vital Signs Vital Signs: Vital Signs - 24 hr 10/21/24 14:00 10/21/24 16:00 10/21/24 16:00 Temperature Pulse Rate 82 80 Respiratory Rate Blood Pressure Pulse Oximetry Oxygen Delivery Room Air Oxygen Flow Rate Fraction of Inspired Oxygen 10/21/24 16:35 10/21/24 18:00 10/21/24 18:53 Temperature 98.0 F 98.9 F Pulse Rate 80 85 87 Respiratory Rate 20 24 H Blood Pressure 107/60 112/62 Pulse Oximetry 98 94 Oxygen Delivery Oxygen Flow Rate Fraction of Inspired Oxygen 10/21/24 20:00 10/21/24 20:00 10/21/24 20:00 Temperature 99.6 F Pulse Rate 88 88 Respiratory Rate 26 H Blood Pressure 105/60 Pulse Oximetry 100 Oxygen Delivery Room Air Oxygen Flow Rate Fraction of Inspired Oxygen 10/21/24 21:50 10/21/24 21:55 10/21/24 22:00 Temperature Pulse Rate 83 85 81 Respiratory Rate 24 H Blood Pressure Pulse Oximetry 90 98 Oxygen Delivery Room Air Nasal Cannula Oxygen Flow Rate 2 Fraction of Inspired Oxygen 21 10/22/24 00:00 10/22/24 00:00 10/22/24 00:00 Temperature 98.9 F Pulse Rate 78 78 Respiratory Rate 222 H Blood Pressure 116/64 Pulse Oximetry 100 100 Oxygen Delivery Nasal Cannula Oxygen Flow Rate 2 Fraction of Inspired Oxygen 10/22/24 02:00 10/22/24 04:00 10/22/24 04:00 Temperature 98.5 F Pulse Rate 77 78 Respiratory Rate 22 H Blood Pressure 119/63 Pulse Oximetry 97 100 Oxygen Delivery Room Air Oxygen Flow Rate Fraction of Inspired Oxygen 10/22/24 04:00 10/22/24 06:00 10/22/24 07:54 Temperature 98.1 F Pulse Rate 76 78 78 Respiratory Rate 32 H Blood Pressure 107/59 L Pulse Oximetry 99 Oxygen Delivery Oxygen Flow Rate Fraction of Inspired Oxygen 10/22/24 08:00 10/22/24 08:00 10/22/24 10:00 Temperature Pulse Rate 78 80 Respiratory Rate Blood Pressure Pulse Oximetry Oxygen Delivery Room Air Oxygen Flow Rate Fraction of Inspired Oxygen 10/22/24 12:00 10/22/24 12:17 Temperature 99.0 F Pulse Rate 81 Respiratory Rate 22 H Blood Pressure 115/62 Pulse Oximetry 97 97 Oxygen Delivery Room Air Oxygen Flow Rate Fraction of Inspired Oxygen Intake/Output Intake/Output: Intake & Output 10/19/24 10/20/24 10/21/24 10/22/24 23:59 23:59 23:59 23:59 Intake Total 4128.4 3776.8 2877 730 Output Total 800 1050 1500 500 Balance 3328.4 2726.8 1377 230 Meds/Results Medications: Active Medications Generic Name Dose Route Start Last Admin Trade Name Freq PRN Reason Stop Dose Admin Dextrose 12.5 gm 10/17/24 21:26 Dextrose 50% 25 Gm/50 Ml Syringe IV PUSH PRN PRN Hypoglycemia Protocol Enoxaparin Sodium 30 mg 10/18/24 09:00 Enoxaparin 30 Mg/0.3 Ml Syringe SUB-Q DAILY JHONY Folic Acid 1 mg 10/19/24 09:10 10/22/24 09:00 Folic Acid 1 Mg/0.2 Ml Inj IV PUSH 1 mg QAM JHONY Administration Glucagon 1 mg 10/17/24 21:26 Glucagon For Inj 1 Mg Vial IM PRN PRN Hypoglycemia Protocol Glucose 15 gm 10/17/24 21:26 Glucose Oral Gel 15 Gm Of Glucse In 37.5 Gm Tube PO PRN PRN Hypoglycemia Protocol Dextrose 1,000 mls @ 100 mls/hr 10/17/24 21:26 Dextrose 5% 1,000 Ml IVPB PRN PRN Hypoglycemia Protocol Ceftriaxone Sodium 2 gm in 100 mls @ 200 mls/hr 10/19/24 09:00 10/22/24 08:59 Rocephin 2 Gm/Ns 100 Ml IVPB 200 mls/hr Q24H JHONY Administration Pantoprazole Sodium 40 mg 10/18/24 21:00 10/22/24 08:59 Pantoprazole Sodium Iv 40 Mg Vial IV PUSH 40 mg Q12HR JHONY Administration Radiology Results: ITS Impressions Chest X-Ray 10/17/24 10:45 IMPRESSION: No focal infiltrate or effusion. Chest/Abdomen/Pelvis CT 10/17/24 10:46 IMPRESSION: No hollow or solid organ injury. No acute fractures. Head CT 10/19/24 09:19 Impression: No acute intracranial hemorrhage or suspicious mass effect. Inflammatory sinus disease. Face CT 10/19/24 09:39 IMPRESSION: 1. Extensive sinus disease with near complete opacification of the right maxillary sinus and dependently layering fluid in the bilateral sphenoid sinuses. Correlate clinically for acute sinusitis. 2. Dental and periodontal disease with periapical lucency surrounding the posterior most remaining right maxillary molar. Renal Ultrasound 10/19/24 09:48 IMPRESSION: No hydronephrosis or renal calculi. No parenchymal findings to suggest the presence of medical renal disease. Simple cysts within the right kidney, for which no further follow-up is needed. Abdomen X-Ray 10/19/24 11:15 IMPRESSION: Nasogastric tube in good position and ready for immediate use. Labs Labs: Laboratory Results - last 24 hr 10/21/24 10/22/24 10/22/24 18:38 00:21 04:23 WBC 8.0 RBC 2.55 L Hgb 8.0 L Hct 24.5 L MCV 96.1 MCH 31.4 MCHC 32.7 RDW 19.0 H Plt Count 34 L MPV 12.0 H Immature Gran % (Auto) 1.4 H Neut % (Auto) 60.8 Lymph % (Auto) 22.4 [place] % (Auto) 13.7 H Eos % (Auto) 1.4 Baso % (Auto) 0.3 Lymph # (Auto) 1.78 [place] # (Auto) 1.1 H Eos # (Auto) 0.1 Baso # (Auto) 0.0 Abs Immat Gran (auto) 0.11 H Absolute Neuts (auto) 4.8 Absolute Nucleated RBC 0.030 H Band Neutrophils % Not Reportable Nucleated RBC % 0.4 H Platelet Estimate Decreased % Immature Plt Fraction 8.3 Hypochromasia 1+ Anisocytosis 2+ Schistocytes None seen Sodium 145 Potassium 3.5 Chloride 111 H Carbon Dioxide 27 Anion Gap 7 BUN 43 H Creatinine 1.84 H Estim Creat Clear Calc 33 Estimated GFR 37 L Glucose 138 H POC Capillary Glucose 128 H 135 H Calcium 8.4 Phosphorus 3.0 Magnesium 1.8 Total Bilirubin 0.8 AST 48 ALT 30 Alkaline Phosphatase 85 Total Creatine Kinase 634 H Total Protein 5.0 L Albumin 2.5 L 10/22/24 10/22/24 06:14 11:15 WBC RBC Hgb Hct MCV MCH MCHC RDW Plt Count MPV Immature Gran % (Auto) Neut % (Auto) Lymph % (Auto) [place] % (Auto) Eos % (Auto) Baso % (Auto) Lymph # (Auto) [place] # (Auto) Eos # (Auto) Baso # (Auto) Abs Immat Gran (auto) Absolute Neuts (auto) Absolute Nucleated RBC Band Neutrophils % Nucleated RBC % Platelet Estimate % Immature Plt Fraction Hypochromasia Anisocytosis Schistocytes Sodium Potassium Chloride Carbon Dioxide Anion Gap BUN Creatinine Estim Creat Clear Calc Estimated GFR Glucose POC Capillary Glucose 138 H 117 H Calcium Phosphorus Magnesium Total Bilirubin AST ALT Alkaline Phosphatase Total Creatine Kinase Total Protein Albumin
[2024-10-22] MEDS: THIAMINE HCL 200 MG/2 ML VIAL 100 MG IV PUSH (12:49)
[2024-10-22 13:13] LABS: Cholesterol 87 mg/dL (0-200); HDL Direct 12 mg/dL; Triglycerides 103 mg/dL (<150)
[2024-10-22 13:26] LABS: Toxigenic C. Diff POSITIVE (NEGATIVE)
[2024-10-22] MEDS: VANCOMYCIN ORAL 125 MG/2.5 ML SYRUP FEED TUBE (15:24)
--- NOTE | 2024-10-22 20:34 | P.PNNP_ITS ---
Progress Note: A&P Assessment and Plan (1) Acute kidney injury: Code(s): N17.9 - Acute kidney failure, unspecified Status: Acute Assessment and Plan: * Creatinine was 3 when he was admitted. * creatinine 1.0mg/l in October 2023 (from [facility] labs) * evaluation to date noted: * CT scan without evidence of obstruction * urine eosinophils negative * elevated CPK noted - follow trend * urine electrolytes prerenal * UA negative for infection * suspect that the etiology is multifactorial: * hemodynamic instability/shock * prerenal factors/hypovolemia * rhabodmyolysis * infection (although no evidence to date) * other(?) * s/p aggressive IVF resuscitation * He was on IVFs yesterday and numbers were better. IVFs stopped yesterday evening because he is on goal TFs and TF flushes. * sodium is about the same as yesterday * Creatinine is a bit higher. * CO2 level stable off the bicarb drip * will restart half NS * check labs in the morning (2) Hypernatremia: Code(s): E87.0 - Hyperosmolality and hypernatremia Status: Acute Assessment and Plan: * sodium normal by October 2023 labs * presumably due to significant free water deficit * restart 1/2NS. (3) Rhabdomyolysis: Qualifiers: Encounter type: initial encounter Rhabdomyolysis type: traumatic Qualified Code(s): T79.6XXA - Traumatic ischemia of muscle, initial encounter Code(s): M62.82 - Rhabdomyolysis Status: Acute Assessment and Plan: * noted admission CPK * CPK Coming down. Now 634 * this is lower than what usually causes renal issues. * consider gu consult for hematuria (4) Shock: Code(s): R57.9 - Shock, unspecified Status: Acute Assessment and Plan: * improved (5) Anemia: Code(s): D64.9 - Anemia, unspecified Status: Acute Assessment and Plan: * hemoglobin dropped to 6.2 and transfusion given. * stable at 8.0 * will start epo. * follow hb. (6) Thrombocytopenia: Code(s): D69.6 - Thrombocytopenia, unspecified Status: Acute Assessment and Plan: * etiology? * Platelet count still up and down. Today's in the 30s * Possibly due to sepsis? * consider hematology consult? (7) Altered mental status: Qualifiers: Altered mental status type: disorientation Qualified Code(s): R41.0 - Disorientation, unspecified Code(s): R41.82 - Altered mental status, unspecified Status: Acute Assessment and Plan: * as noted on admission and currently * suspect due to acute illness - shock, ALEJANDRO/ARF, rhabdomyolysis...etc * CT of brain negative * MRI of brain ordered (to r/o CVA/stroke) . This is going to happen this morning. * follow mentation . his mental status waxes and wanes and overall it is not very good. (8) Fall (on) (from) other stairs and steps, initial encounter: Code(s): W10.8XXA - Fall (on) (from) other stairs and steps, initial encounter Status: Acute Assessment and Plan: * presumed based on history... * found on the ground face down * unknown duration and etiology * Echo shows good left and right sides. * continue supportive therapy Subjective Date/time seen: 10/22/24 20:34 Interval history: seen earlier today (around 815am). pt is more awake, but barely. mumbles. he makes eye contact and follows 1 stage commands. very weak. Exam Narrative: WDWN male in NAD skin no rash or sq nodules head ncat lungs clear bilaterally cor reg no rub or gallop abd BS+ nontender and soft ext no edema or cyanosis. Objective Data Vital Signs Vital Signs: Vital Signs - 24 hr 10/21/24 21:50 10/21/24 21:55 10/21/24 22:00 Temperature Pulse Rate 83 85 81 Respiratory Rate 24 H Blood Pressure Pulse Oximetry 90 98 Oxygen Delivery Room Air Nasal Cannula Oxygen Flow Rate 2 Fraction of Inspired Oxygen 21 10/22/24 00:00 10/22/24 00:00 10/22/24 00:00 Temperature 98.9 F Pulse Rate 78 78 Respiratory Rate 222 H Blood Pressure 116/64 Pulse Oximetry 100 100 Oxygen Delivery Nasal Cannula Oxygen Flow Rate 2 Fraction of Inspired Oxygen 10/22/24 02:00 10/22/24 04:00 10/22/24 04:00 Temperature 98.5 F Pulse Rate 77 78 Respiratory Rate 22 H Blood Pressure 119/63 Pulse Oximetry 97 100 Oxygen Delivery Room Air Oxygen Flow Rate Fraction of Inspired Oxygen 10/22/24 04:00 10/22/24 06:00 10/22/24 07:54 Temperature 98.1 F Pulse Rate 76 78 78 Respiratory Rate 32 H Blood Pressure 107/59 L Pulse Oximetry 99 Oxygen Delivery Oxygen Flow Rate Fraction of Inspired Oxygen 10/22/24 08:00 10/22/24 08:00 10/22/24 10:00 Temperature Pulse Rate 78 80 Respiratory Rate Blood Pressure Pulse Oximetry Oxygen Delivery Room Air Oxygen Flow Rate Fraction of Inspired Oxygen 10/22/24 12:00 10/22/24 12:00 10/22/24 12:17 Temperature 99.0 F Pulse Rate 81 81 Respiratory Rate 22 H Blood Pressure 115/62 Pulse Oximetry 97 97 Oxygen Delivery Room Air Oxygen Flow Rate Fraction of Inspired Oxygen 10/22/24 14:00 10/22/24 16:00 10/22/24 16:00 Temperature Pulse Rate 84 85 Respiratory Rate Blood Pressure Pulse Oximetry 97 Oxygen Delivery Room Air Oxygen Flow Rate Fraction of Inspired Oxygen 10/22/24 16:42 10/22/24 18:00 10/22/24 20:00 Temperature 98.7 F 98.1 F Pulse Rate 86 84 84 Respiratory Rate 36 H 22 H Blood Pressure 143/71 H 144/73 H Pulse Oximetry 98 99 Oxygen Delivery Oxygen Flow Rate Fraction of Inspired Oxygen Intake/Output Intake/Output: Intake & Output 10/19/24 10/20/24 10/21/24 10/22/24 23:59 23:59 23:59 23:59 Intake Total 4128.4 3776.8 2877 730 Output Total 800 1050 1500 1050 Balance 3328.4 2726.8 1377 -320 Meds/Results Medications: Active Medications Generic Name Dose Route Start Last Admin Trade Name Freq PRN Reason Stop Dose Admin Dextrose 12.5 gm 10/17/24 21:26 Dextrose 50% 25 Gm/50 Ml Syringe IV PUSH PRN PRN Hypoglycemia Protocol Enoxaparin Sodium 30 mg 10/18/24 09:00 Enoxaparin 30 Mg/0.3 Ml Syringe SUB-Q DAILY JHONY Folic Acid 1 mg 10/19/24 09:10 10/22/24 09:00 Folic Acid 1 Mg/0.2 Ml Inj IV PUSH 1 mg QAM JHONY Administration Glucagon 1 mg 10/17/24 21:26 Glucagon For Inj 1 Mg Vial IM PRN PRN Hypoglycemia Protocol Glucose 15 gm 10/17/24 21:26 Glucose Oral Gel 15 Gm Of Glucse In 37.5 Gm Tube PO PRN PRN Hypoglycemia Protocol Dextrose 1,000 mls @ 100 mls/hr 10/17/24 21:26 Dextrose 5% 1,000 Ml IVPB PRN PRN Hypoglycemia Protocol Ceftriaxone Sodium 2 gm in 100 mls @ 200 mls/hr 10/19/24 09:00 10/22/24 08:59 Rocephin 2 Gm/Ns 100 Ml IVPB 10/23/24 23:59 200 mls/hr Q24H JHONY Administration Pantoprazole Sodium 40 mg 10/18/24 21:00 10/22/24 08:59 Pantoprazole Sodium Iv 40 Mg Vial IV PUSH 40 mg Q12HR JHONY Administration Thiamine HCl 100 mg 10/22/24 09:00 10/22/24 12:49 Thiamine Hcl 200 Mg/2 Ml Vial IV PUSH 100 mg QAM JHONY Administration Vancomycin HCl 125 mg 10/22/24 15:00 10/22/24 15:24 Vancomycin Oral 125 Mg/2.5 Ml Syrup FEED TUBE 125 mg Q6HR JHONY Administration Radiology Results: ITS Impressions Chest X-Ray 10/17/24 10:45 IMPRESSION: No focal infiltrate or effusion. Chest/Abdomen/Pelvis CT 10/17/24 10:46 IMPRESSION: No hollow or solid organ injury. No acute fractures. Head CT 10/19/24 09:19 Impression: No acute intracranial hemorrhage or suspicious mass effect. Inflammatory sinus disease. Face CT 10/19/24 09:39 IMPRESSION: 1. Extensive sinus disease with near complete opacification of the right maxillary sinus and dependently layering fluid in the bilateral sphenoid sinuses. Correlate clinically for acute sinusitis. 2. Dental and periodontal disease with periapical lucency surrounding the posterior most remaining right maxillary molar. Renal Ultrasound 10/19/24 09:48 IMPRESSION: No hydronephrosis or renal calculi. No parenchymal findings to suggest the presence of medical renal disease. Simple cysts within the right kidney, for which no further follow-up is needed. Abdomen X-Ray 10/19/24 11:15 IMPRESSION: Nasogastric tube in good position and ready for immediate use. Labs Labs: Laboratory Results - last 24 hr 10/22/24 10/22/24 10/22/24 00:21 04:23 06:14 WBC 8.0 RBC 2.55 L Hgb 8.0 L Hct 24.5 L MCV 96.1 MCH 31.4 MCHC 32.7 RDW 19.0 H Plt Count 34 L MPV 12.0 H Immature Gran % (Auto) 1.4 H Neut % (Auto) 60.8 Lymph % (Auto) 22.4 [place] % (Auto) 13.7 H Eos % (Auto) 1.4 Baso % (Auto) 0.3 Lymph # (Auto) 1.78 [place] # (Auto) 1.1 H Eos # (Auto) 0.1 Baso # (Auto) 0.0 Abs Immat Gran (auto) 0.11 H Absolute Neuts (auto) 4.8 Absolute Nucleated RBC 0.030 H Band Neutrophils % Not Reportable Nucleated RBC % 0.4 H Platelet Estimate Decreased % Immature Plt Fraction 8.3 Hypochromasia 1+ Anisocytosis 2+ Schistocytes None seen Sodium 145 Potassium 3.5 Chloride 111 H Carbon Dioxide 27 Anion Gap 7 BUN 43 H Creatinine 1.84 H Estim Creat Clear Calc 33 Estimated GFR 37 L Glucose 138 H POC Capillary Glucose 135 H 138 H Calcium 8.4 Phosphorus 3.0 Magnesium 1.8 Total Bilirubin 0.8 AST 48 ALT 30 Alkaline Phosphatase 85 Total Creatine Kinase 634 H Total Protein 5.0 L Albumin 2.5 L Triglycerides 103 Cholesterol 87 LDL Cholesterol Direct 47 HDL Direct 12 C. difficile (PCR) 10/22/24 10/22/24 10/22/24 11:15 11:27 18:04 WBC RBC Hgb Hct MCV MCH MCHC RDW Plt Count MPV Immature Gran % (Auto) Neut % (Auto) Lymph % (Auto) [place] % (Auto) Eos % (Auto) Baso % (Auto) Lymph # (Auto) [place] # (Auto) Eos # (Auto) Baso # (Auto) Abs Immat Gran (auto) Absolute Neuts (auto) Absolute Nucleated RBC Band Neutrophils % Nucleated RBC % Platelet Estimate % Immature Plt Fraction Hypochromasia Anisocytosis Schistocytes Sodium Potassium Chloride Carbon Dioxide Anion Gap BUN Creatinine Estim Creat Clear Calc Estimated GFR Glucose POC Capillary Glucose 117 H 121 H Calcium Phosphorus Magnesium Total Bilirubin AST ALT Alkaline Phosphatase Total Creatine Kinase Total Protein Albumin Triglycerides Cholesterol LDL Cholesterol Direct HDL Direct C. difficile (PCR) Positive A*
[2024-10-22] MEDS: SODIUM CHLORIDE 0.45% 1,000 ML 75 ML IV CONT (22:33)
[2024-10-23] VITALS (10 sets, daily range): BP systolic 124–146; BP diastolic 71–77; PULSE 72–90; RESP 17–26; TEMP 36–37.3; O2SAT 95–100
[2024-10-23] MEDS: VANCOMYCIN ORAL 125 MG/2.5 ML SYRUP FEED TUBE ×4 (00:08→17:41)
[2024-10-23 05:00] LABS: Hematocrit 24.7 % (42.0-52.0); Hemoglobin 7.8 g/dL (14.0-18.0); Immature Platelet Fraction Pct 9.9 % (0.9-11.2); Mean Corpuscular HGB Conc 31.6 g/dl (32-36); Mean Corpuscular Hemoglobin 31.6 pg (26-34); Mean Corpuscular Volume 100.0 fl (80-100); Platelet Count Result 34 k/mm3 (150-375); Red Blood Count 2.47 M/mm3 (4.6-6.20); White Blood Count 7.8 K/mm3 (4.5-10.0)
[2024-10-23 05:09] LABS: Alanine Aminotransferase 35 U/L (6-50); Albumin Level 2.5 g/dL (3.5-5.1); Alkaline Phosphatase 90 U/L (38-126); Anion Gap 5 mmol/L (4-12); Aspartate Amino Transferase 56 U/L (17-59); Bilirubin,Total 0.6 mg/dL (0.2-1.3); Blood Urea Nitrogen 39 mg/dL (9-20); Calcium 8.5 mg/dL (8.4-10.2); Carbon Dioxide 28 mmol/L (22-30); Chloride 112 mmol/L (98-107); Estimated CRCL calculation 38 ml/min; Estimated Glomerular Filt Rate 44; Glucose 119 mg/dL (65-110); Magnesium 1.6 mg/dL (1.6-2.3); Potassium 3.7 mmol/L (3.4-5.0); Sodium 145 mmol/L (137-145); Total Protein 5.0 g/dL (6.3-8.2)
[2024-10-23 06:02] LABS: Band Neutrophils Percent 4 % (0-6); Eosinophils Absolute Manual 0.23 K/mm3 (0.02-0.50); Eosinophils Percent Manual 3 % (0-4); Lymphocytes Absolute Manual 1.63 K/mm3 (1.1-4.5); Lymphocytes Percent Manual 21.0 % (18-44); Monocytes Absolute Manual 0.07 K/mm3 (0.1-0.90); Monocytes Percent Manual 1 % (3-9); Neutrophils Absolute Manual 5.85 K/mm3 (1.3-6.7); Neutrophils Percent Manual 71 % (46-73); Total Cells Counted 100
[2024-10-23 06:03] LABS: Schistocytes None Seen
[2024-10-23 06:04] LABS: Anisocytosis 1+; Hypochromasia 2+
[2024-10-23] MEDS: cefTRIAXone 2 GM/NS 100 ML 2 GM/100 ML BAG IVPB (09:36)
[2024-10-23] MEDS: FOLIC ACID 1 MG/0.2 ML INJ IV PUSH (09:37)
[2024-10-23] MEDS: THIAMINE HCL 200 MG/2 ML VIAL 100 MG IV PUSH (09:37)
[2024-10-23] MEDS: PANTOPRAZOLE SODIUM IV 40 MG VIAL IV PUSH ×2 (09:37→20:45)
[2024-10-23] MEDS: SODIUM CHLORIDE 0.45% 1,000 ML 75 ML IV CONT (10:38)
--- NOTE | 2024-10-23 11:18 | PCNFU ---
Addendum entered by Shaniqua Godinez RD, LDN 10/23/24 11:51: Will add Banatrol BID via TF for C.diff. Original Note: Nutrition Follow-Up Complete: Inadequate Oral Intake as related to AMS as evidenced by NPO. Goal:Meet estimated nutritional needs Pt current nutrition is Tube feeding: Jevity 1.5 @ 55ml/hr. Nutrition recommendation: continue with current plan of care Last recorded weight is 74.5 kg. Bowel Motility: +BM 10/23 Labs Reviewed: Hgb:7.8, HCT:24.7, Alb:2.5, BUN:39, Cr:1.57, Glu:119 Meds Noted: lovenox, protonix Skin: WNL Additional Notes: Pt is on tube feedings of Jevity 1.5 @ 55ml/hr providing 1815kcals, 84g protein, 920ml free water. Flushes 100ml q 4 hrs for an additional 400ml free water. Agree with orders. Pt tolerating well. Meeting needs. Speech following. will monitor weight, labs, skin, tube feeding, follow up every tuesday and Tuesday.
--- NOTE | 2024-10-23 13:39 | P.PNNP_ITS ---
Progress Note: A&P Assessment and Plan (1) Acute kidney injury: Code(s): N17.9 - Acute kidney failure, unspecified Status: Acute Assessment and Plan: * Creatinine was 3 when he was admitted. * creatinine 1.0mg/l in October 2023 (from [facility] labs) * evaluation to date noted: * CT scan without evidence of obstruction * urine eosinophils negative * elevated CPK noted - follow trend * urine electrolytes prerenal * UA negative for infection * suspect that the etiology is multifactorial: * hemodynamic instability/shock * prerenal factors/hypovolemia * rhabodmyolysis * infection (although no evidence to date) * other(?) * Creatinine is a little better today at 1.57 * He is getting half-normal saline. * check labs in the morning (2) Hypernatremia: Code(s): E87.0 - Hyperosmolality and hypernatremia Status: Acute Assessment and Plan: * sodium normal by October 2023 labs * Sodium level stable at 145 (3) Rhabdomyolysis: Qualifiers: Encounter type: initial encounter Rhabdomyolysis type: traumatic Qualified Code(s): T79.6XXA - Traumatic ischemia of muscle, initial encounter Code(s): M62.82 - Rhabdomyolysis Status: Acute Assessment and Plan: * noted admission CPK * CPK last 634 (4) Shock: Code(s): R57.9 - Shock, unspecified Status: Acute Assessment and Plan: * improved (5) Anemia: Code(s): D64.9 - Anemia, unspecified Status: Acute Assessment and Plan: * hemoglobin dropped to 6.2 and transfusion given. * Very slowly to unwilling. Now down to 7.8. * Getting Epogen * Check another hemoglobin tomorrow. (6) Thrombocytopenia: Code(s): D69.6 - Thrombocytopenia, unspecified Status: Acute Assessment and Plan: * etiology? * Platelet count still up and down. Today's in the 30s * Possibly due to sepsis? * It should be improving though because his septic syndrome is improved. * No schistocytes on peripheral smear * Check an LDH * Will get Hematology consult. (7) Altered mental status: Qualifiers: Altered mental status type: disorientation Qualified Code(s): R41.0 - Disorientation, unspecified Code(s): R41.82 - Altered mental status, unspecified Status: Acute Assessment and Plan: * as noted on admission and currently * suspect due to acute illness - shock, ALEJANDRO/ARF, rhabdomyolysis...etc * Platelet count is low but no schistocytes. Doubt it is HUS TTP but let us have Hematology look at him. (8) Fall (on) (from) other stairs and steps, initial encounter: Code(s): W10.8XXA - Fall (on) (from) other stairs and steps, initial encounter Status: Acute Assessment and Plan: * presumed based on history... * found on the ground face down * unknown duration and etiology * Echo shows good left and right sides. * continue supportive therapy Subjective Date/time seen: 10/23/24 13:39 Interval history: Patient is little more awake today. Somewhat more verbal but still mumbles and hard to understand. He is just getting his EEG wrapped up. Exam Narrative: WDWN male in NAD skin no rash or sq nodules head ncat lungs clear to auscultation cor reg no rub or gallop abd BS+ nontender and soft ext no edema Objective Data Vital Signs Vital Signs: Vital Signs - 24 hr 10/22/24 14:00 10/22/24 16:00 10/22/24 16:00 Temperature Pulse Rate 84 85 Respiratory Rate Blood Pressure Pulse Oximetry 97 Oxygen Delivery Room Air 10/22/24 16:42 10/22/24 18:00 10/22/24 20:00 Temperature 98.7 F 98.1 F Pulse Rate 86 84 84 Respiratory Rate 36 H 22 H Blood Pressure 143/71 H 144/73 H Pulse Oximetry 98 99 Oxygen Delivery 10/22/24 20:00 10/22/24 20:00 10/22/24 22:00 Temperature Pulse Rate 84 87 Respiratory Rate Blood Pressure Pulse Oximetry 99 Oxygen Delivery Room Air 10/23/24 00:00 10/23/24 00:00 10/23/24 00:00 Temperature 98.4 F Pulse Rate 90 90 Respiratory Rate 18 Blood Pressure 146/75 H Pulse Oximetry 100 99 Oxygen Delivery Room Air 10/23/24 02:00 10/23/24 04:00 10/23/24 04:00 Temperature Pulse Rate 89 87 Respiratory Rate Blood Pressure Pulse Oximetry 100 Oxygen Delivery Room Air 10/23/24 04:00 10/23/24 05:59 10/23/24 08:00 Temperature 99.1 F Pulse Rate 85 80 74 Respiratory Rate 20 Blood Pressure 140/71 Pulse Oximetry 97 Oxygen Delivery 10/23/24 08:36 10/23/24 10:00 Temperature 97.2 F L Pulse Rate 77 72 Respiratory Rate 20 Blood Pressure 137/75 Pulse Oximetry 95 Oxygen Delivery Intake/Output Intake/Output: Intake & Output 10/20/24 10/21/24 10/22/24 10/23/24 23:59 23:59 23:59 23:59 Intake Total 3776.8 2877 830 3586.2 Output Total 1050 1500 1050 800 Balance 2726.8 1377 -220 2786.2 Meds/Results Medications: Active Medications Generic Name Dose Route Start Last Admin Trade Name Freq PRN Reason Stop Dose Admin Dextrose 12.5 gm 10/17/24 21:26 Dextrose 50% 25 Gm/50 Ml Syringe IV PUSH PRN PRN Hypoglycemia Protocol Enoxaparin Sodium 30 mg 10/18/24 09:00 Enoxaparin 30 Mg/0.3 Ml Syringe SUB-Q DAILY JHONY Folic Acid 1 mg 10/24/24 09:00 Folic Acid 1 Mg Tablet FEED TUBE QAM JHONY Glucagon 1 mg 10/17/24 21:26 Glucagon For Inj 1 Mg Vial IM PRN PRN Hypoglycemia Protocol Glucose 15 gm 10/17/24 21:26 Glucose Oral Gel 15 Gm Of Glucse In 37.5 Gm Tube PO PRN PRN Hypoglycemia Protocol Dextrose 1,000 mls @ 100 mls/hr 10/17/24 21:26 Dextrose 5% 1,000 Ml IVPB PRN PRN Hypoglycemia Protocol Ceftriaxone Sodium 2 gm in 100 mls @ 200 mls/hr 10/19/24 09:00 10/23/24 09:36 Rocephin 2 Gm/Ns 100 Ml IVPB 10/23/24 23:59 200 mls/hr Q24H JHONY Administration Sodium Chloride 1,000 mls @ 75 mls/hr 10/22/24 20:40 10/23/24 10:38 Sodium Chloride 0.45% IV CONT 75 mls/hr .[id number] JHONY Administration Pantoprazole Sodium 40 mg 10/18/24 21:00 10/23/24 09:37 Pantoprazole Sodium Iv 40 Mg Vial IV PUSH 40 mg Q12HR JHONY Administration Thiamine HCl 100 mg 10/24/24 09:00 Thiamine Hcl 100 Mg Tablet FEED TUBE QAM [facility] Vancomycin HCl 125 mg 10/22/24 15:00 10/23/24 12:34 Vancomycin Oral 125 Mg/2.5 Ml Syrup FEED TUBE 11/01/24 12:01 125 mg Q6HR [facility] Administration Radiology Results: ITS Impressions Chest X-Ray 10/17/24 10:45 IMPRESSION: No focal infiltrate or effusion. Chest/Abdomen/Pelvis CT 10/17/24 10:46 IMPRESSION: No hollow or solid organ injury. No acute fractures. Head CT 10/19/24 09:19 Impression: No acute intracranial hemorrhage or suspicious mass effect. Inflammatory sinus disease. Face CT 10/19/24 09:39 IMPRESSION: 1. Extensive sinus disease with near complete opacification of the right maxi llary sinus and dependently layering fluid in the bilateral sphenoid sinuses. Correlate clinically for acute sinusitis. 2. Dental and periodontal disease with periapical lucency surrounding the posterior most remaining right maxillary molar. Renal Ultrasound 10/19/24 09:48 IMPRESSION: No hydronephrosis or renal calculi. No parenchymal findings to suggest the presence of medical renal disease. Simple cysts within the right kidney, for which no further follow-up is needed. Abdomen X-Ray 10/19/24 11:15 IMPRESSION: Nasogastric tube in good position and ready for immediate use. Labs Labs: Laboratory Results - last 24 hr 10/22/24 10/23/24 10/23/24 18:04 01:42 03:59 WBC 7.8 RBC 2.47 L Hgb 7.8 L Hct 24.7 L MCV 100.0 MCH 31.6 MCHC 31.6 L RDW 19.2 H Plt Count 34 L MPV 12.5 H Immature Gran % (Auto) Not Reportable Neut % (Auto) Not Reportable Lymph % (Auto) Not Reportable [place] % (Auto) Not Reportable Eos % (Auto) Not Reportable Baso % (Auto) Not Reportable Lymph # (Auto) Not Reportable [place] # (Auto) Not Reportable Eos # (Auto) Not Reportable Baso # (Auto) Not Reportable Abs Immat Gran (auto) Not Reportable Absolute Neuts (auto) Not Reportable Absolute Nucleated RBC Not Reportable Total Counted 100 Neutrophils % (Manual) 71 Band Neutrophils % 4 Lymphocytes % (Manual) 21.0 Monocytes % (Manual) 1 L Eosinophils % (Manual) 3 Nucleated RBC % Not Reportable Abs Neuts (Manual) 5.85 Abs Lymphs (Manual) 1.63 Abs Monocytes (Manual) 0.07 L Absolute Eos (Manual) 0.23 Platelet Estimate Decreased % Immature Plt Fraction 9.9 Hypochromasia 2+ Anisocytosis 1+ Schistocytes None seen Sodium 145 Potassium 3.7 Chloride 112 H Carbon Dioxide 28 Anion Gap 5 BUN 39 H Creatinine 1.57 H Estim Creat Clear Calc 38 Estimated GFR 44 L Glucose 119 H POC Capillary Glucose 121 H 132 H Calcium 8.5 Magnesium 1.6 Total Bilirubin 0.6 AST 56 ALT 35 Alkaline Phosphatase 90 Total Protein 5.0 L Albumin 2.5 L 10/23/24 10/23/24 05:26 11:40 WBC RBC Hgb Hct MCV MCH MCHC RDW Plt Count MPV Immature Gran % (Auto) Neut % (Auto) Lymph % (Auto) [place] % (Auto) Eos % (Auto) Baso % (Auto) Lymph # (Auto) [place] # (Auto) Eos # (Auto) Baso # (Auto) Abs Immat Gran (auto) Absolute Neuts (auto) Absolute Nucleated RBC Total Counted Neutrophils % (Manual) Band Neutrophils % Lymphocytes % (Manual) Monocytes % (Manual) Eosinophils % (Manual) Nucleated RBC % Abs Neuts (Manual) Abs Lymphs (Manual) Abs Monocytes (Manual) Absolute Eos (Manual) Platelet Estimate % Immature Plt Fraction Hypochromasia Anisocytosis Schistocytes Sodium Potassium Chloride Carbon Dioxide Anion Gap BUN Creatinine Estim Creat Clear Calc Estimated GFR Glucose POC Capillary Glucose 120 H 124 H Calcium Magnesium Total Bilirubin AST ALT Alkaline Phosphatase Total Protein Albumin
--- NOTE | 2024-10-23 13:48 | PM.IMPN ---
Progress Note: A&P Assessment and Plan (1) Shock: Code(s): R57.9 - Shock, unspecified Status: Acute Assessment and Plan: RESOLVED 10/17: EMS arrived at patient's house: he was found face down with, hypotensive with systolic in the 50s, patient given IV fluids in the ER, central line inserted, started on Levophed. CT head was negative. Chest x-ray with no focal infiltrate or effusion. CT chest abdomen pelvis with no acute findings. Face CT with extensive sinus disease with near complete opacification of the right maxillary sinus and dependently layering fluid in the bilateral sphenoid sinuses. Dental and periodontal disease with periapical lucency surrounding the posterior-most remaining right maxillary molar. -off Levophed since the morning of 10/18 -procalcitonin levels are at high -patient was started on cefepime and vancomycin which was discontinued since there was no nidus of infection -MRSA screen is negative, -10/17: Blood cultures negative-so far -no nidus of infection on either chest x-ray, CT chest abdomen and pelvis, UA was clear, -10/19: given low body temperature, elevated procalcitonin started on ceftriaxone empirically. Procalcitonin can also be raised in tissue injury -10/19: UA reflective of UTI, also given sinusitis on CT scan of the face, started patient on ceftriaxone since 10/19/2024. Urine culture not obtained. Will conclude 10/24/2019 Liquid stool. Could be tube feed related. C diff came back positive Started on vancomycin 10/23/2019 (2) Altered mental status: Qualifiers: Altered mental status type: disorientation Qualified Code(s): R41.0 - Disorientation, unspecified Code(s): R41.82 - Altered mental status, unspecified Status: Acute Assessment and Plan: Altered mental status is multifactorial could be related to hypovolemia, shock, hypotension, acute kidney injury, rhabdomyolysis -CT brain was negative for intracranial abnormalities -MRI cannot be performed as patient was in the [place] and may have sharpnel exposure according to his daughter -10/19: Repeat CT brain did not show any acute intracranial hemorrhage or suspicious mass effect, inflammatory sinus disease. -10/19: CT facial bones showed extensive sinus disease with near complete opacification of the right maxillary sinus and dependently layering fluid in the bilateral sphenoid sinuses. Dental and periodontal disease with periapical lucency surrounding the posterior most remaining right maxillary molar Despite improvement in metabolic issues he remains encephalopathic Will further evaluate with MRI brain and EEG. Neurology consultation Brain MRI in process EEG performed: No seizure activity noted. (3) Fall (on) (from) other stairs and steps, initial encounter: Code(s): W10.8XXA - Fall (on) (from) other stairs and steps, initial encounter Status: Acute Assessment and Plan: Patient was found on the ground face down unknown amount of time, unknown etiology -continue treat underlying cause -10/18: Echocardiogram showed EF of 60-65%, normal biventricular size and systolic function, no significant valvular abnormalities (4) Acute kidney injury: Code(s): N17.9 - Acute kidney failure, unspecified Status: Acute Assessment and Plan: Acute kidney injury likely related to hypotension, hypovolemia, shock, rhabdomyolysis -patient received 3 L IV fluid bolus in the ER -started on bicarb infusion -patient was hypernatremic on admission, -sodium levels trending down gradually currently on bicarb infusion per Nephrology -continue to monitor urine output, electrolytes and renal function -patient presented with creatinine of 3.0 (baseline 1.0 in October 2023 at [facility]) -urine lytes not reflective of prerenal picture, urine eosinophils are negative -CT scan of the abdomen and pelvis did not show any hydronephrosis -renal ultrasound: No hydronephrosis or renal calculi, no apparent, findings to suggest the presence of medical renal disease. Simple cyst within the right kidney -CK levels trending down on admission 5864 peaked to 8292. -appreciate Nephrology evaluation and recommendation Conjunctival chemosis noted. IV fluids stopped Already getting tube feeds at 55 cc an hour (5) Rhabdomyolysis: Qualifiers: Encounter type: initial encounter Rhabdomyolysis type: traumatic Qualified Code(s): T79.6XXA - Traumatic ischemia of muscle, initial encounter Code(s): M62.82 - Rhabdomyolysis Status: Acute Assessment and Plan: Rhabdomyolysis likely related to being down on the ground for unknown amount of time -patient has been given 3 L IV fluids in the ER plus 500 mL of LR bolus in the ICU on 10/18. Patient seems to be adequately fluid-resuscitated -continue IV fluids per Nephrology CK levels trending down on admission 5864 peaked to 8292. (6) Electrolyte imbalance: Code(s): E87.8 - Other disorders of electrolyte and fluid balance, not elsewhere classified Status: Acute Assessment and Plan: Magnesium repleted (7) Anemia: Code(s): D64.9 - Anemia, unspecified Status: Acute Assessment and Plan: Patient dropped his hemoglobin this morning to 6.2 from 9.1 on admission -10/18: status post 2 units of packed RBCs -stool occult is negative -vitamin B12 levels are normal, folic acid is low will substitute -iron panel looks normal -hemoglobin remained stable (8) Thrombocytopenia: Code(s): D69.6 - Thrombocytopenia, unspecified Status: Acute Assessment and Plan: Thrombocytopenia with platelet counts of 62 this morning, 91 on admission -10/18: status post 1 unit of platelets -INR 1.2 on admission -platelets remain low, continue to monitor Does have history of chronic alcohol abuse per family. No baseline available Concern for TTP. Hematology consult Will Also order hit panel Plan DVT prophylaxis: SCDs, no chemoprophylaxis due to thrombocytopenia Stress ulcer prophylaxis: Protonix IV q.12 hours Nutrition: NG tube placed on 10/19: Started on tube feeds and tolerating Code Status: Full code Subjective Date/time seen: 10/23/24 13:48 Interval history: He is dysarthric but more awake following commands. Discussed with the nursing staff. Discussed with family. Review of Systems Review of Systems: All systems reviewed & are unremarkable except as noted in HPI and below ( Limited, A&O x1, unreliable) Exam Narrative: General: ill-appearing gentleman, currently in no acute distress more awake but dysarthric HEENT:? Pupils equal and reactive, sclerae is clear, bad dentition, moist oral mucosa, left facial swelling noted, right facial droop noted Neck:? Supple Respiratory:? Clear to auscultation bilaterally, no wheezing, adequate air entry, decreased at bases Cardiac:? S1-S2 is normal, regular rate and rhythm Abdomen:? Soft, nontender, nondistended, hypoactive bowel sounds Extremities:? No edema, palpable pedal pulses, Neuro:? Patient is awake, but dysarthric following commands Skin:? Warm and dry Psych:? More awake cooperative Objective Data Vital Signs Vital Signs: Vital Signs - 24 hr 10/22/24 14:00 10/22/24 16:00 10/22/24 16:00 Temperature Pulse Rate 84 85 Respiratory Rate Blood Pressure Pulse Oximetry 97 Oxygen Delivery Room Air 10/22/24 16:42 10/22/24 18:00 10/22/24 20:00 Temperature 98.7 F 98.1 F Pulse Rate 86 84 84 Respiratory Rate 36 H 22 H Blood Pressure 143/71 H 144/73 H Pulse Oximetry 98 99 Oxygen Delivery 10/22/24 20:00 10/22/24 20:00 10/22/24 22:00 Temperature Pulse Rate 84 87 Respiratory Rate Blood Pressure Pulse Oximetry 99 Oxygen Delivery Room Air 10/23/24 00:00 10/23/24 00:00 10/23/24 00:00 Temperature 98.4 F Pulse Rate 90 90 Respiratory Rate 18 Blood Pressure 146/75 H Pulse Oximetry 100 99 Oxygen Delivery Room Air 10/23/24 02:00 10/23/24 04:00 10/23/24 04:00 Temperature Pulse Rate 89 87 Respiratory Rate Blood Pressure Pulse Oximetry 100 Oxygen Delivery Room Air 10/23/24 04:00 10/23/24 05:59 10/23/24 08:00 Temperature 99.1 F Pulse Rate 85 80 74 Respiratory Rate 20 Blood Pressure 140/71 Pulse Oximetry 97 Oxygen Delivery 10/23/24 08:36 10/23/24 10:00 Temperature 97.2 F L Pulse Rate 77 72 Respiratory Rate 20 Blood Pressure 137/75 Pulse Oximetry 95 Oxygen Delivery Intake/Output Intake/Output: Intake & Output 10/20/24 10/21/24 10/22/24 10/23/24 23:59 23:59 23:59 23:59 Intake Total 3776.8 2877 830 3586.2 Output Total 1050 1500 1050 800 Balance 2726.8 1377 -220 2786.2 Meds/Results Medications: Active Medications Generic Name Dose Route Start Last Admin Trade Name Freq PRN Reason Stop Dose Admin Dextrose 12.5 gm 10/17/24 21:26 Dextrose 50% 25 Gm/50 Ml Syringe IV PUSH PRN PRN Hypoglycemia Protocol Enoxaparin Sodium 30 mg 10/18/24 09:00 Enoxaparin 30 Mg/0.3 Ml Syringe SUB-Q DAILY JHONY Folic Acid 1 mg 10/24/24 09:00 Folic Acid 1 Mg Tablet FEED TUBE QAM JHONY Glucagon 1 mg 10/17/24 21:26 Glucagon For Inj 1 Mg Vial IM PRN PRN Hypoglycemia Protocol Glucose 15 gm 10/17/24 21:26 Glucose Oral Gel 15 Gm Of Glucse In 37.5 Gm Tube PO PRN PRN Hypoglycemia Protocol Dextrose 1,000 mls @ 100 mls/hr 10/17/24 21:26 Dextrose 5% 1,000 Ml IVPB PRN PRN Hypoglycemia Protocol Ceftriaxone Sodium 2 gm in 100 mls @ 200 mls/hr 10/19/24 09:00 10/23/24 09:36 Rocephin 2 Gm/Ns 100 Ml IVPB 10/23/24 23:59 200 mls/hr Q24H JHONY Administration Sodium Chloride 1,000 mls @ 75 mls/hr 10/22/24 20:40 10/23/24 10:38 Sodium Chloride 0.45% IV CONT 75 mls/hr .[id number] JHONY Administration Pantoprazole Sodium 40 mg 10/18/24 21:00 10/23/24 09:37 Pantoprazole Sodium Iv 40 Mg Vial IV PUSH 40 mg Q12HR JHONY Administration Thiamine HCl 100 mg 10/24/24 09:00 Thiamine Hcl 100 Mg Tablet FEED TUBE QAM JHONY Vancomycin HCl 125 mg 10/22/24 15:00 10/23/24 12:34 Vancomycin Oral 125 Mg/2.5 Ml Syrup FEED TUBE 11/01/24 12:01 125 mg Q6HR JHONY Administration Radiology Results: ITS Impressions Chest X-Ray 10/17/24 10:45 IMPRESSION: No focal infiltrate or effusion. Chest/Abdomen/Pelvis CT 10/17/24 10:46 IMPRESSION: No hollow or solid organ injury. No acute fractures. Head CT 10/19/24 09:19 Impression: No acute intracranial hemorrhage or suspicious mass effect. Inflammatory sinus disease. Face CT 10/19/24 09:39 IMPRESSION: 1. Extensive sinus disease with near complete opacification of the right maxillary sinus and dependently layering fluid in the bilateral sphenoid sinuses. Correlate clinically for acute sinusitis. 2. Dental and periodontal disease with periapical lucency surrounding the posterior most remaining right maxillary molar. Renal Ultrasound 10/19/24 09:48 IMPRESSION: No hydronephrosis or renal calculi. No parenchymal findings to suggest the presence of medical renal disease. Simple cysts within the right kidney, for which no further follow-up is needed. Abdomen X-Ray 10/19/24 11:15 IMPRESSION: Nasogastric tube in good position and ready for immediate use. Labs Labs: Laboratory Results - last 24 hr 10/22/24 10/23/24 10/23/24 18:04 01:42 03:59 WBC 7.8 RBC 2.47 L Hgb 7.8 L Hct 24.7 L MCV 100.0 MCH 31.6 MCHC 31.6 L RDW 19.2 H Plt Count 34 L MPV 12.5 H Immature Gran % (Auto) Not Reportable Neut % (Auto) Not Reportable Lymph % (Auto) Not Reportable [place] % (Auto) Not Reportable Eos % (Auto) Not Reportable Baso % (Auto) Not Reportable Lymph # (Auto) Not Reportable [place] # (Auto) Not Reportable Eos # (Auto) Not Reportable Baso # (Auto) Not Reportable Abs Immat Gran (auto) Not Reportable Absolute Neuts (auto) Not Reportable Absolute Nucleated RBC Not Reportable Total Counted 100 Neutrophils % (Manual) 71 Band Neutrophils % 4 Lymphocytes % (Manual) 21.0 Monocytes % (Manual) 1 L Eosinophils % (Manual) 3 Nucleated RBC % Not Reportable Abs Neuts (Manual) 5.85 Abs Lymphs (Manual) 1.63 Abs Monocytes (Manual) 0.07 L Absolute Eos (Manual) 0.23 Platelet Estimate Decreased % Immature Plt Fraction 9.9 Hypochromasia 2+ Anisocytosis 1+ Schistocytes None seen Sodium 145 Potassium 3.7 Chloride 112 H Carbon Dioxide 28 Anion Gap 5 BUN 39 H Creatinine 1.57 H Estim Creat Clear Calc 38 Estimated GFR 44 L Glucose 119 H POC Capillary Glucose 121 H 132 H Calcium 8.5 Magnesium 1.6 Total Bilirubin 0.6 AST 56 ALT 35 Alkaline Phosphatase 90 Total Protein 5.0 L Albumin 2.5 L 10/23/24 10/23/24 05:26 11:40 WBC RBC Hgb Hct MCV MCH MCHC RDW Plt Count MPV Immature Gran % (Auto) Neut % (Auto) Lymph % (Auto) [place] % (Auto) Eos % (Auto) Baso % (Auto) Lymph # (Auto) [place] # (Auto) Eos # (Auto) Baso # (Auto) Abs Immat Gran (auto) Absolute Neuts (auto) Absolute Nucleated RBC Total Counted Neutrophils % (Manual) Band Neutrophils % Lymphocytes % (Manual) Monocytes % (Manual) Eosinophils % (Manual) Nucleated RBC % Abs Neuts (Manual) Abs Lymphs (Manual) Abs Monocytes (Manual) Absolute Eos (Manual) Platelet Estimate % Immature Plt Fraction Hypochromasia Anisocytosis Schistocytes Sodium Potassium Chloride Carbon Dioxide Anion Gap BUN Creatinine Estim Creat Clear Calc Estimated GFR Glucose POC Capillary Glucose 120 H 124 H Calcium Magnesium Total Bilirubin AST ALT Alkaline Phosphatase Total Protein Albumin
--- NOTE | 2024-10-23 14:37 | WPDNEUROLOGY ---
Neurology EEG Report General Information Date of Study: 10/23/24 TEST EEG DIAGNOSIS Altered mental status CONDITION OF RECORDING awake, drowsy and asleep. EEG NUMBER [id number] CLINICAL HISTORY Patient was unable to give any specific history of fall with simple commands. EEG DESCRIPTION Background rhythm consists of low-voltage 15 to 18 hertz per 2nd beta activity with poor anteroposterior gradient but evolving into admixture of low-voltage beta activity, low voltage alpha activity and low-voltage theta activity. Bilateral symmetrical sleep activities noted during sleep. Photic stimulation not done. Hyperventilation not done. Non paroxysmal. Nonfocal. Nonlateralizing. IMPRESSION Abnormal record due to the absence of a normal background rhythm clinical correlation recommended this tracing is not compatible with seizure disorder or focal or diffuse slow activity To raise the possibility of encephalopathy. Clinical correlation recommended.
--- NOTE | 2024-10-23 18:48 | P.CONONC_ITS ---
Assessment and Plan Assessment and plan (1) Anemia: Code(s): D64.9 - Anemia, unspecified Status: Acute (2) Thrombocytopenia: Code(s): D69.6 - Thrombocytopenia, unspecified Status: Acute Assessment and Plan: Patient with history of hypertension, hyperlipidemia and gout came into the hospital status post fall with mental status changes. Patient is a poor historian. CT chest abdomen pelvis showed no evidence of organ damage from the fall. There was no evidence of hepatosplenomegaly as well. Labs on admission showed hemoglobin of 9.1 dropped to 6.2 and now is 7.8. He has received blood transfusion as well. He denies any bleeding. Platelet count was [address] on admission now down to 34,000. Peripheral smear shows no schistocytes. Total bilirubin was normal at 0.6 but LDH was elevated at 449. Creatinine was 3 on admission now down to 1.5. Differential diagnosis include thrombotic microangiopathy, sepsis/UTI, drug-induced thrombocytopenia, chronic ITP and possibly heparin-induced thrombocytopenia and possibility of alcohol induced thrombocytopenia with myelosuppression. Mean platelet volume was elevated suggesting peripheral destruction. I will order antibodies for chronic ITP as well. Hit antibodies has already been ordered. His anemia could be secondary to renal insufficiency. Hemolysis is less likely with normal bilirubin. We will check Liyah test as well. I will check iron panel as well. I will give him Procrit injection today. I have discussed this case with the hospitalist. HPI Data of Consult Date/Time: 10/23/24 18:48 Requesting Physician: Tevin Dickerson MD Primary Care Provider: REVERE Consult Narrative Narrative: Tip Calvo is a 69 year old male with history of hypertension, gout, hyperlipidemia came into the hospital status post fall. Patient is a poor historian. CT of the chest abdomen pelvis showed no solid organ injury. CT head also showed no acute intracranial process. Nephrology was consulted due to acute renal insufficiency. Hemoglobin dropped to 6.2 and patient received blood transfusion. Labs now showed hemoglobin of 7.8 [place] [address]. Mean platelet volume was elevated at 12.5. There was no schistocytes on the peripheral smear. He denies any bleeding. Creatinine is 1.5. INR 1.2 with PTT of 39.6. Denies any other complaints. Review of Systems 2 Review of Systems: Review of system as per HPI otherwise negative PMFSH Past Medical History Medical History Cancer Gout Social History Social History Smoking packs per day: 0.3 Smoking cigarettes per day: 6.0 Smoking status: Former smoker Additional smoking assessment comments: unknown when quit Spiritual care concerns: No Meds Home Medications and Allergies Home Medications ?Medication ?Instructions ?Recorded ?Confirmed ?Type allopurinol 100 mg tablet 100 mg PO DAILY 10/18/24 10/18/24 History amlodipine 10 mg tablet 10 mg PO DAILY 10/18/24 10/18/24 History aspirin 81 mg tablet,delayed 81 mg PO DAILY 10/18/24 10/18/24 History release carvedilol 12.5 mg tablet 12.5 mg PO BID 10/18/24 10/18/24 History rosuvastatin 10 mg tablet 10 mg PO DAILY 10/18/24 10/18/24 History Allergies Allergy/AdvReac Type Severity Reaction Status Date / Time lisinopril Allergy Severe angioedema Verified 10/18/24 13:19 fenofibrate Allergy Intermediate hives Verified 10/18/24 13:19 Penicillins Allergy hives Verified 10/18/24 13:19 Vital Signs Vital Signs - 24 hr 10/22/24 20:00 10/22/24 20:00 10/22/24 20:00 Temperature 36.7 C Pulse Rate 84 84 Respiratory Rate 22 H Blood Pressure 144/73 H Pulse Oximetry 99 99 Oxygen Delivery Room Air 10/22/24 22:00 10/23/24 00:00 10/23/24 00:00 Temperature Pulse Rate 87 90 Respiratory Rate Blood Pressure Pulse Oximetry 100 Oxygen Delivery Room Air 10/23/24 00:00 10/23/24 02:00 10/23/24 04:00 Temperature 36.9 C Pulse Rate 90 89 Respiratory Rate 18 Blood Pressure 146/75 H Pulse Oximetry 99 100 Oxygen Delivery Room Air 10/23/24 04:00 10/23/24 04:00 10/23/24 05:59 Temperature 37.3 C Pulse Rate 87 85 80 Respiratory Rate 20 Blood Pressure 140/71 Pulse Oximetry 97 Oxygen Delivery 10/23/24 08:00 10/23/24 08:36 10/23/24 10:00 Temperature 36.2 C L Pulse Rate 74 77 72 Respiratory Rate 20 Blood Pressure 137/75 Pulse Oximetry 95 Oxygen Delivery 10/23/24 16:00 Temperature 36.0 C L Pulse Rate 73 Respiratory Rate 26 H Blood Pressure 124/71 Pulse Oximetry 98 Oxygen Delivery Exam 2 Narrative: Lungs are clear to auscultation bilaterally Cardiovascular regular rate rhythm no murmurs Abdomen soft nontender nondistended Extremities no edema Results Labs 10/23/24 03:59 10/23/24 03:59 Labs: Short CBC 10/23/24 Range/Units 03:59 WBC 7.8 (4.5-10.0) K/mm3 Hgb 7.8 L (14.0-18.0) g/dL Hct 24.7 L (42.0-52.0) % Plt Count 34 L (150-375) k/mm3 BMP 10/23/24 03:59 Sodium 145 Potassium 3.7 Chloride 112 H Carbon Dioxide 28 BUN 39 H Creatinine 1.57 H Glucose 119 H Calcium 8.5 Liver Function 10/23/24 Range/Units 03:59 Total Bilirubin 0.6 (0.2-1.3) mg/dL AST 56 (17-59) U/L ALT 35 (6-50) U/L Alkaline Phosphatase 90 (38-126) U/L Albumin 2.5 L (3.5-5.1) g/dL
[2024-10-23] MEDS: EPOETIN ALFA 20,000 UNITS/ML VIAL 20000 UNITS SUB-Q (20:46)
[2024-10-23 22:13] LABS: Iron 24 ug/dL (49-181)
[2024-10-23 22:22] LABS: Percent Iron Saturation 13 % (20-50)
[2024-10-23 22:49] LABS: Ferritin 547.00 ng/mL (11.1-264)
[2024-10-24] MEDS: SODIUM CHLORIDE 0.45% 1,000 ML 75 ML IV CONT
[2024-10-24] MEDS: VANCOMYCIN ORAL 125 MG/2.5 ML SYRUP FEED TUBE ×4 (00:29→17:36)
[2024-10-24 05:04] LABS: Hematocrit 26.6 % (42.0-52.0); Hemoglobin 8.5 g/dL (14.0-18.0); Immature Granulocyte Percent A 0.9 % (0-0.5); Immature Platelet Fraction Pct 15.6 % (0.9-11.2); Lymphocytes Absolute Auto 1.22 K/mm3 (0.9-3.2); Mean Corpuscular HGB Conc 32.0 g/dl (32-36); Mean Corpuscular Hemoglobin 32.0 pg (26-34); Mean Corpuscular Volume 100.0 fl (80-100); Nucleated Red Blood Cells Absolute Auto 0.020 K/mm3 (0.0-0.012); Nucleated Red Blood Cells Perc 0.2 % (0.0-0.2); Platelet Count Result 37 k/mm3 (150-375); Red Blood Count 2.66 M/mm3 (4.6-6.20); White Blood Count 8.6 K/mm3 (4.5-10.0)
[2024-10-24 05:13] LABS: Alanine Aminotransferase 44 U/L (6-50); Albumin Level 2.7 g/dL (3.5-5.1); Alkaline Phosphatase 105 U/L (38-126); Anion Gap 7 mmol/L (4-12); Aspartate Amino Transferase 61 U/L (17-59); Bilirubin,Total 0.7 mg/dL (0.2-1.3); Blood Urea Nitrogen 34 mg/dL (9-20); Calcium 8.5 mg/dL (8.4-10.2); Carbon Dioxide 27 mmol/L (22-30); Chloride 110 mmol/L (98-107); Estimated CRCL calculation 49 ml/min; Estimated Glomerular Filt Rate 59; Glucose 133 mg/dL (65-110); Magnesium 1.4 mg/dL (1.6-2.3); Potassium 3.7 mmol/L (3.4-5.0); Sodium 144 mmol/L (137-145); Total Protein 5.7 g/dL (6.3-8.2)
[2024-10-24 05:27] LABS: Band Neutrophils Percent 0 % (0-6)
[2024-10-24 05:28] LABS: Hypochromasia 2+; Ovalocytes 1+; Schistocytes None Seen; Target Cells 1+
[2024-10-24 07:57] VITALS: BP 114/62; PULSE 77; RESP 16; TEMP 36.5; O2SAT 99
[2024-10-24] MEDS: FOLIC ACID 1 MG TABLET FEED TUBE (08:35)
[2024-10-24] MEDS: PANTOPRAZOLE SODIUM IV 40 MG VIAL IV PUSH ×2 (08:35→20:14)
[2024-10-24] MEDS: THIAMINE HCL 100 MG TABLET FEED TUBE (08:35)
--- NOTE | 2024-10-24 08:59 | PCSTNOTE ---
Please refer to the Bedside Swallow Evaluation in the EMR. Please note, silent aspiration cannot be ruled out at bedside.
--- NOTE | 2024-10-24 13:59 | P.PNNP_ITS ---
Progress Note: A&P Assessment and Plan (1) Acute kidney injury: Code(s): N17.9 - Acute kidney failure, unspecified Status: Acute Assessment and Plan: * Creatinine was 3 when he was admitted. * creatinine 1.0mg/l in October 2023 (from [facility] labs) * evaluation to date noted: * CT scan without evidence of obstruction * urine eosinophils negative * elevated CPK noted - follow trend * urine electrolytes prerenal * UA negative for infection * suspect that the etiology is multifactorial: * hemodynamic instability/shock * prerenal factors/hypovolemia * rhabodmyolysis * infection (although no evidence to date) * other(?) * Creatinine is a little better today at 1.21 * He is getting half-normal saline. * will go 1 more day. * Reassess fluid status and labs tomorrow (2) Hypernatremia: Code(s): E87.0 - Hyperosmolality and hypernatremia Status: Acute Assessment and Plan: * sodium normal by October 2023 labs * Sodium level 144 (3) Rhabdomyolysis: Qualifiers: Encounter type: initial encounter Rhabdomyolysis type: traumatic Qualified Code(s): T79.6XXA - Traumatic ischemia of muscle, initial encounter Code(s): M62.82 - Rhabdomyolysis Status: Acute Assessment and Plan: * noted admission CPK * CPK last 634 (4) Shock: Code(s): R57.9 - Shock, unspecified Status: Acute Assessment and Plan: * improved (5) Anemia: Code(s): D64.9 - Anemia, unspecified Status: Acute Assessment and Plan: * hemoglobin dropped to 6.2 and transfusion given. * Very slowly to unwilling. now 8.5. * Getting Epogen * Check another hemoglobin tomorrow. (6) Thrombocytopenia: Code(s): D69.6 - Thrombocytopenia, unspecified Status: Acute Assessment and Plan: * etiology? * Platelet count still up and down. Today's in the 30s * Hematology consult underway. * Lots of labs pending (7) Altered mental status: Qualifiers: Altered mental status type: disorientation Qualified Code(s): R41.0 - Disorientation, unspecified Code(s): R41.82 - Altered mental status, unspecified Status: Acute Assessment and Plan: * as noted on admission and currently * suspect due to acute illness - shock, ALEJANDRO/ARF, rhabdomyolysis...etc * Platelet count is low but no schistocytes. (8) Fall (on) (from) other stairs and steps, initial encounter: Code(s): W10.8XXA - Fall (on) (from) other stairs and steps, initial encounter Status: Acute Assessment and Plan: * presumed based on history... * found on the ground face down * unknown duration and etiology * Echo shows good left and right sides. * continue supportive therapy Subjective Date/time seen: 10/24/24 13:59 Interval history: patient more awake today. He follows command like stick out her tongue and close your eyes. I asked him to squeeze my hands and he would not squeeze with either hand however he does seem to move his right side more than his left side. Exam Narrative: WDWN male in NAD Lying in the hospital bed on oxygen and tube feedings. skin no rash or sq nodules head ncat lungs clear to auscultation cor reg no rub or gallop abd BS+ nontender and soft ext no edema Objective Data Vital Signs Vital Signs: Vital Signs - 24 hr 10/23/24 16:00 10/23/24 20:00 10/23/24 21:58 Temperature 96.8 F L Pulse Rate 73 Respiratory Rate 26 H Blood Pressure 124/71 Pulse Oximetry 98 99 Oxygen Delivery Room Air Room Air 10/23/24 23:58 10/24/24 07:57 10/24/24 08:00 Temperature 98.0 F 97.7 F Pulse Rate 72 77 Respiratory Rate 17 16 Blood Pressure 139/77 114/62 Pulse Oximetry 99 99 Oxygen Delivery Room Air Intake/Output Intake/Output: Intake & Output 10/21/24 10/22/24 10/23/24 10/24/24 23:59 23:59 23:59 23:59 Intake Total 2877 830 5518.2 Output Total 1500 1050 1850 465 Balance 1377 -220 3668.2 -465 Meds/Results Medications: Active Medications Generic Name Dose Route Start Last Admin Trade Name Freq PRN Reason Stop Dose Admin Dextrose 12.5 gm 10/17/24 21:26 Dextrose 50% 25 Gm/50 Ml Syringe IV PUSH PRN PRN Hypoglycemia Protocol Enoxaparin Sodium 30 mg 10/18/24 09:00 Enoxaparin 30 Mg/0.3 Ml Syringe SUB-Q DAILY JHONY Folic Acid 1 mg 10/24/24 09:00 10/24/24 08:35 Folic Acid 1 Mg Tablet FEED TUBE 1 mg QAM JHONY Administration Glucagon 1 mg 10/17/24 21:26 Glucagon For Inj 1 Mg Vial IM PRN PRN Hypoglycemia Protocol Glucose 15 gm 10/17/24 21:26 Glucose Oral Gel 15 Gm Of Glucse In 37.5 Gm Tube PO PRN PRN Hypoglycemia Protocol Dextrose 1,000 mls @ 100 mls/hr 10/17/24 21:26 Dextrose 5% 1,000 Ml IVPB PRN PRN Hypoglycemia Protocol Sodium Chloride 1,000 mls @ 75 mls/hr 10/22/24 20:40 10/24/24 00:00 Sodium Chloride 0.45% IV CONT 75 mls/hr .[id number] JHONY Administration Pantoprazole Sodium 40 mg 10/18/24 21:00 10/24/24 08:35 Pantoprazole Sodium Iv 40 Mg Vial IV PUSH 40 mg Q12HR JHONY Administration Thiamine HCl 100 mg 10/24/24 09:00 10/24/24 08:35 Thiamine Hcl 100 Mg Tablet FEED TUBE 100 mg QAM JHONY Administration Vancomycin HCl 125 mg 10/22/24 15:00 10/24/24 12:11 Vancomycin Oral 125 Mg/2.5 Ml Syrup FEED TUBE 11/01/24 12:01 125 mg Q6HR JHONY Administration Radiology Results: ITS Impressions Chest X-Ray 10/17/24 10:45 IMPRESSION: No focal infiltrate or effusion. Chest/Abdomen/Pelvis CT 10/17/24 10:46 IMPRESSION: No hollow or solid organ injury. No acute fractures. Head CT 10/19/24 09:19 Impression: No acute intracranial hemorrhage or suspicious mass effect. Inflammatory sinus disease. Face CT 10/19/24 09:39 IMPRESSION: 1. Extensive sinus disease with near complete opacification of the right maxillary sinus and dependently layering fluid in the bilateral sphenoid sinuses. Correlate clinically for acute sinusitis. 2. Dental and periodontal disease with periapical lucency surrounding the posterior most remaining right maxillary molar. Renal Ultrasound 10/19/24 09:48 IMPRESSION: No hydronephrosis or renal calculi. No parenchymal findings to suggest the presence of medical renal disease. Simple cysts within the right kidney, for which no further follow-up is needed. Abdomen X-Ray 10/19/24 11:15 IMPRESSION: Nasogastric tube in good position and ready for immediate use. Labs Labs: Laboratory Results - last 24 hr 10/23/24 10/23/24 10/23/24 14:38 17:39 20:17 WBC RBC Hgb Hct MCV MCH MCHC RDW Plt Count MPV Immature Gran % (Auto) Neut % (Auto) Lymph % (Auto) [place] % (Auto) Eos % (Auto) Baso % (Auto) Lymph # (Auto) [place] # (Auto) Eos # (Auto) Baso # (Auto) Abs Immat Gran (auto) Absolute Neuts (auto) Absolute Nucleated RBC Band Neutrophils % Nucleated RBC % Platelet Estimate % Immature Plt Fraction Hypochromasia Target Cells Ovalocytes Schistocytes Sodium Potassium Chloride Carbon Dioxide Anion Gap BUN Creatinine Estim Creat Clear Calc Estimated GFR Glucose POC Capillary Glucose 81 Calcium Phosphorus Magnesium Iron 24 L TIBC 183 L % Saturation 13 L Ferritin 547.00 H Total Bilirubin AST ALT Alkaline Phosphatase Lactate Dehydrogenase 449 H Total Protein Albumin DINESH, Poly Interpret Negative DINESH, Complement Interp Not Performed 10/24/24 10/24/24 10/24/24 01:06 04:50 06:14 WBC 8.6 RBC 2.66 L Hgb 8.5 L Hct 26.6 L MCV 100.0 MCH 32.0 MCHC 32.0 RDW 19.0 H Plt Count 37 L MPV TNP Immature Gran % (Auto) 0.9 H Neut % (Auto) 71.7 Lymph % (Auto) 14.2 L [place] % (Auto) 11.0 H Eos % (Auto) 1.9 Baso % (Auto) 0.3 Lymph # (Auto) 1.22 [place] # (Auto) 0.9 H Eos # (Auto) 0.2 Baso # (Auto) 0.0 Abs Immat Gran (auto) 0.08 H Absolute Neuts (auto) 6.2 Absolute Nucleated RBC 0.020 H Band Neutrophils % 0 Nucleated RBC % 0.2 Platelet Estimate Decreased % Immature Plt Fraction 15.6 H Hypochromasia 2+ Target Cells 1+ Ovalocytes 1+ Schistocytes None seen Sodium 144 Potassium 3.7 Chloride 110 H Carbon Dioxide 27 Anion Gap 7 BUN 34 H Creatinine 1.21 Estim Creat Clear Calc 49 Estimated GFR 59 Glucose 133 H POC Capillary Glucose 112 H 115 H Calcium 8.5 Phosphorus 3.6 Magnesium 1.4 L Iron TIBC % Saturation Ferritin Total Bilirubin 0.7 AST 61 H ALT 44 Alkaline Phosphatase 105 Lactate Dehydrogenase Total Protein 5.7 L Albumin 2.7 L DINESH, Poly Interpret DINESH, Complement Interp 10/24/24 11:54 WBC RBC Hgb Hct MCV MCH MCHC RDW Plt Count MPV Immature Gran % (Auto) Neut % (Auto) Lymph % (Auto) [place] % (Auto) Eos % (Auto) Baso % (Auto) Lymph # (Auto) [place] # (Auto) Eos # (Auto) Baso # (Auto) Abs Immat Gran (auto) Absolute Neuts (auto) Absolute Nucleated RBC Band Neutrophils % Nucleated RBC % Platelet Estimate % Immature Plt Fraction Hypochromasia Target Cells Ovalocytes Schistocytes Sodium Potassium Chloride Carbon Dioxide Anion Gap BUN Creatinine Estim Creat Clear Calc Estimated GFR Glucose POC Capillary Glucose 125 H Calcium Phosphorus Magnesium Iron TIBC % Saturation Ferritin Total Bilirubin AST ALT Alkaline Phosphatase Lactate Dehydrogenase Total Protein Albumin DINESH, Poly Interpret DINESH, Complement Interp
[2024-10-24 15:55] VITALS: BMI 11.0
[2024-10-24] MEDS: MAGNESIUM SULF 2 GM/WATER 50ML 2 GM/50 ML BAG IVPB (16:19)
[2024-10-24 16:31] VITALS: BP 130/81; PULSE 82; RESP 20; TEMP 36.3; O2SAT 97
--- NOTE | 2024-10-24 16:52 | PM.IMPN ---
Progress Note: A&P Assessment and Plan (1) Shock: Code(s): R57.9 - Shock, unspecified Status: Acute Assessment and Plan: RESOLVED 10/17: EMS arrived at patient's house: he was found face down with, hypotensive with systolic in the 50s, patient given IV fluids in the ER, central line inserted, started on Levophed. CT head was negative. Chest x-ray with no focal infiltrate or effusion. CT chest abdomen pelvis with no acute findings. Face CT with extensive sinus disease with near complete opacification of the right maxillary sinus and dependently layering fluid in the bilateral sphenoid sinuses. Dental and periodontal disease with periapical lucency surrounding the posterior-most remaining right maxillary molar. -off Levophed since the morning of 10/18 -procalcitonin levels are at high -patient was started on cefepime and vancomycin which was discontinued since there was no nidus of infection -MRSA screen is negative, -10/17: Blood cultures negative-so far -no nidus of infection on either chest x-ray, CT chest abdomen and pelvis, UA was clear, -10/19: given low body temperature, elevated procalcitonin started on ceftriaxone empirically. Procalcitonin can also be raised in tissue injury -10/19: UA reflective of UTI, also given sinusitis on CT scan of the face, started patient on ceftriaxone since 10/19/2024. Urine culture not obtained. Will conclude 10/24/2019 Liquid stool. Could be tube feed related. C diff came back positive Started on vancomycin 10/23/2019 (2) Altered mental status: Qualifiers: Altered mental status type: disorientation Qualified Code(s): R41.0 - Disorientation, unspecified Code(s): R41.82 - Altered mental status, unspecified Status: Acute Assessment and Plan: Altered mental status is multifactorial could be related to hypovolemia, shock, hypotension, acute kidney injury, rhabdomyolysis -CT brain was negative for intracranial abnormalities -MRI cannot be performed as patient was in the [place] and may have sharpnel exposure according to his daughter -10/19: Repeat CT brain did not show any acute intracranial hemorrhage or suspicious mass effect, inflammatory sinus disease. -10/19: CT facial bones showed extensive sinus disease with near complete opacification of the right maxillary sinus and dependently layering fluid in the bilateral sphenoid sinuses. Dental and periodontal disease with periapical lucency surrounding the posterior most remaining right maxillary molar Despite improvement in metabolic issues he remains encephalopathic Will further evaluate with MRI brain and EEG. Neurology consultation Brain MRI in process EEG performed: No seizure activity noted. (3) Fall (on) (from) other stairs and steps, initial encounter: Code(s): W10.8XXA - Fall (on) (from) other stairs and steps, initial encounter Status: Acute Assessment and Plan: Patient was found on the ground face down unknown amount of time, unknown etiology -continue treat underlying cause -10/18: Echocardiogram showed EF of 60-65%, normal biventricular size and systolic function, no significant valvular abnormalities (4) Acute kidney injury: Code(s): N17.9 - Acute kidney failure, unspecified Status: Acute Assessment and Plan: Acute kidney injury likely related to hypotension, hypovolemia, shock, rhabdomyolysis -patient received 3 L IV fluid bolus in the ER -started on bicarb infusion -patient was hypernatremic on admission, -sodium levels trending down gradually currently on bicarb infusion per Nephrology -continue to monitor urine output, electrolytes and renal function -patient presented with creatinine of 3.0 (baseline 1.0 in October 2023 at [facility]) -urine lytes not reflective of prerenal picture, urine eosinophils are negative -CT scan of the abdomen and pelvis did not show any hydronephrosis -renal ultrasound: No hydronephrosis or renal calculi, no apparent, findings to suggest the presence of medical renal disease. Simple cyst within the right kidney -CK levels trending down on admission 5864 peaked to 8292. -appreciate Nephrology evaluation and recommendation Conjunctival chemosis noted. IV fluids stopped Already getting tube feeds at 55 cc an hour (5) Rhabdomyolysis: Qualifiers: Encounter type: initial encounter Rhabdomyolysis type: traumatic Qualified Code(s): T79.6XXA - Traumatic ischemia of muscle, initial encounter Code(s): M62.82 - Rhabdomyolysis Status: Acute Assessment and Plan: Rhabdomyolysis likely related to being down on the ground for unknown amount of time -patient has been given 3 L IV fluids in the ER plus 500 mL of LR bolus in the ICU on 10/18. Patient seems to be adequately fluid-resuscitated -continue IV fluids per Nephrology CK levels trending down on admission 5864 peaked to 8292. (6) Electrolyte imbalance: Code(s): E87.8 - Other disorders of electrolyte and fluid balance, not elsewhere classified Status: Acute Assessment and Plan: Magnesium repleted (7) Anemia: Code(s): D64.9 - Anemia, unspecified Status: Acute Assessment and Plan: Patient dropped his hemoglobin this morning to 6.2 from 9.1 on admission -10/18: status post 2 units of packed RBCs -stool occult is negative -vitamin B12 levels are normal, folic acid is low will substitute -iron panel looks normal -hemoglobin remained stable (8) Thrombocytopenia: Code(s): D69.6 - Thrombocytopenia, unspecified Status: Acute Assessment and Plan: Thrombocytopenia with platelet counts of 62 this morning, 91 on admission -10/18: status post 1 unit of platelets -INR 1.2 on admission -platelets remain low, continue to monitor Does have history of chronic alcohol abuse per family. No baseline available Concern for TTP. Hematology consult Will Also order hit panel Plan 69 y/o male was found after he fell under stairs by his family, patient had AMS was not able to provide details ROS or history, patient had CT was normal upon arrival, as well his MRI of Brain for any acute injury, patient. upon arrival patient hgb was 9.1 and dropped to 6.2 without and GI bleed, patient was seen by waste transportation technician and suspect anemia 2/2 renal dysfunction, and work up is in progress, also on admission patient had elevated CK levels of 5864 most likely 2/2 fall and donot know how long patient was on the ground after fall, ALEJANDRO has improved and patient is seen by commercial solar sales consultant, patient had dysphagia on NG tube feed will consult GI for possible PEG. DVT prophylaxis: SCDs, no chemoprophylaxis due to thrombocytopenia Stress ulcer prophylaxis: Protonix IV q.12 hours Nutrition: NG tube placed on 10/19: Started on tube feeds and tolerating Code Status: Full code Subjective Date/time seen: 10/24/24 16:52 Interval history: 69 y/o male was found after he fell under stairs by his family, patient had AMS was not able to provide details ROS or history, patient had CT was normal upon arrival, as well his MRI of Brain for any acute injury, patient. upon arrival patient hgb was 9.1 and dropped to 6.2 without and GI bleed, patient was seen by waste transportation technician and suspect anemia 2/2 renal dysfunction, and work up is in progress, also on admission patient had elevated CK levels of 5864 most likely 2/2 fall and donot know how long patient was on the ground after fall, ALEJANDRO has improved and patient is seen by commercial solar sales consultant, patient had dysphagia on NG tube feed will consult GI for possible PEG. Review of Systems Review of Systems: ROS unobtainable: Yes unobtainable due to mental status Exam Narrative: Patient is comfortable, NAD HEENT: eyes are clear and none icteric, NG tube in place LUNGS:CTA HEART: RR S1S2 ABD: BS+, Soft and nontender Lower extremities: no edema SKIN: nonjaundiced Neuro: grossly intact. Objective Data Vital Signs Vital Signs: Vital Signs - 24 hr 10/23/24 20:00 10/23/24 21:58 10/23/24 23:58 Temperature 36.7 C Pulse Rate 72 Respiratory Rate 17 Blood Pressure 139/77 Pulse Oximetry 99 99 Oxygen Delivery Room Air Room Air 10/24/24 07:57 10/24/24 08:00 10/24/24 16:31 Temperature 36.5 C 36.3 C L Pulse Rate 77 82 Respiratory Rate 16 20 Blood Pressure 114/62 130/81 Pulse Oximetry 99 97 Oxygen Delivery Room Air Intake/Output Intake/Output: Intake & Output 10/21/24 10/22/24 10/23/24 10/24/24 23:59 23:59 23:59 23:59 Intake Total 2877 830 5518.2 Output Total 1500 1050 1850 965 Balance 1377 -220 3668.2 -965 Meds/Results Medications: Active Medications Generic Name Dose Route Start Last Admin Trade Name Freq PRN Reason Stop Dose Admin Dextrose 12.5 gm 10/17/24 21:26 Dextrose 50% 25 Gm/50 Ml Syringe IV PUSH PRN PRN Hypoglycemia Protocol Enoxaparin Sodium 30 mg 10/18/24 09:00 Enoxaparin 30 Mg/0.3 Ml Syringe SUB-Q DAILY JHONY Folic Acid 1 mg 10/24/24 09:00 10/24/24 08:35 Folic Acid 1 Mg Tablet FEED TUBE 1 mg QAM JHONY Administration Glucagon 1 mg 10/17/24 21:26 Glucagon For Inj 1 Mg Vial IM PRN PRN Hypoglycemia Protocol Glucose 15 gm 10/17/24 21:26 Glucose Oral Gel 15 Gm Of Glucse In 37.5 Gm Tube PO PRN PRN Hypoglycemia Protocol Dextrose 1,000 mls @ 100 mls/hr 10/17/24 21:26 Dextrose 5% 1,000 Ml IVPB PRN PRN Hypoglycemia Protocol Sodium Chloride 1,000 mls @ 75 mls/hr 10/22/24 20:40 10/24/24 00:00 Sodium Chloride 0.45% IV CONT 75 mls/hr .[id number] JHONY Administration Magnesium Sulfate 2 gm in 50 mls @ 25 mls/hr 10/24/24 15:49 10/24/24 16:19 Magnesium Sulf 2 Gm/Water 50ml IVPB 10/24/24 17:48 25 mls/hr ONCE ONE Administration Pantoprazole Sodium 40 mg 10/18/24 21:00 10/24/24 08:35 Pantoprazole Sodium Iv 40 Mg Vial IV PUSH 40 mg Q12HR JHONY Administration Thiamine HCl 100 mg 10/24/24 09:00 10/24/24 08:35 Thiamine Hcl 100 Mg Tablet FEED TUBE 100 mg QAM JHONY Administration Vancomycin HCl 125 mg 10/22/24 15:00 10/24/24 12:11 Vancomycin Oral 125 Mg/2.5 Ml Syrup FEED TUBE 11/01/24 12:01 125 mg Q6HR JHONY Administration Radiology Results: ITS Impressions Chest X-Ray 10/17/24 10:45 IMPRESSION: No focal infiltrate or effusion. Chest/Abdomen/Pelvis CT 10/17/24 10:46 IMPRESSION: No hollow or solid organ injury. No acute fractures. Head CT 10/19/24 09:19 Impression: No acute intracranial hemorrhage or suspicious mass effect. Inflammatory sinus disease. Face CT 10/19/24 09:39 IMPRESSION: 1. Extensive sinus disease with near complete opacification of the right maxillary sinus and dependently layering fluid in the bilateral sphenoid sinuses. Correlate clinically for acute sinusitis. 2. Dental and periodontal disease with periapical lucency surrounding the posterior most remaining right maxillary molar. Renal Ultrasound 10/19/24 09:48 IMPRESSION: No hydronephrosis or renal calculi. No parenchymal findings to suggest the presence of medical renal disease. Simple cysts within the right kidney, for which no further follow-up is needed. Abdomen X-Ray 10/19/24 11:15 IMPRESSION: Nasogastric tube in good position and ready for immediate use. Brain MRI 10/24/24 14:22 IMPRESSION: 1. Age-related changes the brain. No acute intracranial process. 2. Prominent sinus disease with fluid nearly filling the right maxillary sinus and layering dependently in the bilateral sphenoid sinuses. Correlate clinically for acute sinusitis. Labs Labs: Laboratory Results - last 24 hr 10/23/24 10/23/24 10/24/24 17:39 20:17 01:06 WBC RBC Hgb Hct MCV MCH MCHC RDW Plt Count MPV Immature Gran % (Auto) Neut % (Auto) Lymph % (Auto) [place] % (Auto) Eos % (Auto) Baso % (Auto) Lymph # (Auto) [place] # (Auto) Eos # (Auto) Baso # (Auto) Abs Immat Gran (auto) Absolute Neuts (auto) Absolute Nucleated RBC Band Neutrophils % Nucleated RBC % Platelet Estimate % Immature Plt Fraction Hypochromasia Target Cells Ovalocytes Schistocytes Sodium Potassium Chloride Carbon Dioxide Anion Gap BUN Creatinine Estim Creat Clear Calc Estimated GFR Glucose POC Capillary Glucose 81 112 H Calcium Phosphorus Magnesium Iron 24 L TIBC 183 L % Saturation 13 L Ferritin 547.00 H Total Bilirubin AST ALT Alkaline Phosphatase Total Protein Albumin DINESH, Poly Interpret Negative DINESH, Complement Interp Not Performed 10/24/24 10/24/24 10/24/24 04:50 06:14 11:54 WBC 8.6 RBC 2.66 L Hgb 8.5 L Hct 26.6 L MCV 100.0 MCH 32.0 MCHC 32.0 RDW 19.0 H Plt Count 37 L MPV TNP Immature Gran % (Auto) 0.9 H Neut % (Auto) 71.7 Lymph % (Auto) 14.2 L [place] % (Auto) 11.0 H Eos % (Auto) 1.9 Baso % (Auto) 0.3 Lymph # (Auto) 1.22 [place] # (Auto) 0.9 H Eos # (Auto) 0.2 Baso # (Auto) 0.0 Abs Immat Gran (auto) 0.08 H Absolute Neuts (auto) 6.2 Absolute Nucleated RBC 0.020 H Band Neutrophils % 0 Nucleated RBC % 0.2 Platelet Estimate Decreased % Immature Plt Fraction 15.6 H Hypochromasia 2+ Target Cells 1+ Ovalocytes 1+ Schistocytes None seen Sodium 144 Potassium 3.7 Chloride 110 H Carbon Dioxide 27 Anion Gap 7 BUN 34 H Creatinine 1.21 Estim Creat Clear Calc 49 Estimated GFR 59 Glucose 133 H POC Capillary Glucose 115 H 125 H Calcium 8.5 Phosphorus 3.6 Magnesium 1.4 L Iron TIBC % Saturation Ferritin Total Bilirubin 0.7 AST 61 H ALT 44 Alkaline Phosphatase 105 Total Protein 5.7 L Albumin 2.7 L DINESH, Poly Interpret DINESH, Complement Interp Quality VTE Prophylaxis VTE prophylaxis: mechanical ordered
--- NOTE | 2024-10-24 17:05 | P.CONGI_ITS ---
Assessment and Plan Assessment and plan (1) Acute encephalopathy: Code(s): G93.40 - Encephalopathy, unspecified Status: Acute Assessment and Plan: unable to eat and he has tube feeding by ngt unfortunately we won't be able to place PEG given severe thrombocytopenia and risk of bleeding/hematoma platelets 37 (on admission 95), work up in progress by manufacturing assistantAZAEL abd pending wonder if also could have component of liver disease (he is an alcoholic per family members) continue with feeding using ngt will follow only as needed (2) Rhabdomyolysis: Qualifiers: Encounter type: initial encounter Rhabdomyolysis type: traumatic Q ualified Code(s): T79.6XXA - Traumatic ischemia of muscle, initial encounter Code(s): M62.82 - Rhabdomyolysis Status: Acute Assessment and Plan: treated (3) Acute kidney injury: Code(s): N17.9 - Acute kidney failure, unspecified Status: Acute Assessment and Plan: by junior engineer (4) Shock: Code(s): R57.9 - Shock, unspecified Status: Acute Assessment and Plan: resolved he was in icu (5) Thrombocytopenia: Code(s): D69.6 - Thrombocytopenia, unspecified Status: Acute (6) Alcohol abuse: Code(s): F10.10 - Alcohol abuse, uncomplicated Status: Acute Assessment and Plan: thiamine (7) Fall (on) (from) other stairs and steps, initial encounter: Code(s): W10.8XXA - Fall (on) (from) other stairs and steps, initial encounter Status: Acute GI Consult Note Consult date/time: 10/24/24 17:05 Reason for consult: encephalopathy, unable to eat HPI: Tip Calvo is a 69 year old male who was admitted to hospital 10/17/24 after was found with face down in his home. He was not seen for 2 weeks prior to that. Was found to have rhabdomyolysis as well as evidence for dehydration and renal insufficiency and shock, admitted to ICU, evaluated by neurology and probably some component of anoxic brain. He is currently in the floor and has NGT with tube feeding running at 50 ml/h, given his mental status is not safe for him to eat. Also he is an alcoholic (Several members at bedside) and was told that has alcoholic liver disease in the past. Blood work noted platelets 30's and manufacturing assistant on board. CT scan no obvious cirrhosis. Primary team asking for peg evaluation. Review of Systems 2 Review of Systems: ROS unobtainable: Yes unobtainable due to mental status PMFSH Past Medical History Medical History (Updated 10/24/24 @ 17:10 by Isaac Calix MD) Alcohol abuse Acute encephalopathy Cancer Gout Social History Social History Smoking packs per day: 0.3 Smoking cigarettes per day: 6.0 Smoking status: Former smoker Additional smoking assessment comments: unknown when quit Spiritual care concerns: No Meds Home Medications and Allergies Home Medications ?Medication ?Instructions ?Recorded ?Confirmed ?Type allopurinol 100 mg tablet 100 mg PO DAILY 10/18/24 10/18/24 History amlodipine 10 mg tablet 10 mg PO DAILY 10/18/24 10/18/24 History aspirin 81 mg tablet,delayed 81 mg PO DAILY 10/18/24 10/18/24 History release carvedilol 12.5 mg tablet 12.5 mg PO BID 10/18/24 10/18/24 History rosuvastatin 10 mg tablet 10 mg PO DAILY 10/18/24 10/18/24 History Allergies Allergy/AdvReac Type Severity Reaction Status Date / Time lisinopril Allergy Severe angioedema Verified 10/18/24 13:19 fenofibrate Allergy Intermediate hives Verified 10/18/24 13:19 Penicillins Allergy hives Verified 10/18/24 13:19 Vital Signs Vital Signs - 24 hr 10/23/24 20:00 10/23/24 21:58 10/23/24 23:58 Temperature 98.0 F Pulse Rate 72 Respiratory Rate 17 Blood Pressure 139/77 Pulse Oximetry 99 99 Oxygen Delivery Room Air Room Air 10/24/24 07:57 10/24/24 08:00 10/24/24 16:31 Temperature 97.7 F 97.4 F L Pulse Rate 77 82 Respiratory Rate 16 20 Blood Pressure 114/62 130/81 Pulse Oximetry 99 97 Oxygen Delivery Room Air Exam 2 Const: Other: ill appearing HENMT: Other: ngt in place Eyes: Sclera: sclerae normal Neck: Neck: supple Resp: Effort & Inspection: normal respiratory effort Cardio: Rate: regular rate GI: GI Palp: Yes Soft to palpation and No Tenderness to palpation present (GI) Auscultation: normal bowel sounds Skin: General skin exam: normal color Neuro: Other: awake but confused, he is on restraints and trying to pull out lines Extrem: General: normal to inspection Psych: Other: lethargic and confused Results Labs 10/24/24 04:50 10/24/24 04:50 Labs: Short CBC 10/24/24 Range/Units 04:50 WBC 8.6 (4.5-10.0) K/mm3 Hgb 8.5 L (14.0-18.0) g/dL Hct 26.6 L (42.0-52.0) % Plt Count 37 L (150-375) k/mm3 BMP 10/24/24 04:50 Sodium 144 Potassium 3.7 Chloride 110 H Carbon Dioxide 27 BUN 34 H Creatinine 1.21 Glucose 133 H Calcium 8.5 Liver Function 10/24/24 Range/Units 04:50 Total Bilirubin 0.7 (0.2-1.3) mg/dL AST 61 H (17-59) U/L ALT 44 (6-50) U/L Alkaline Phosphatase 105 (38-126) U/L Albumin 2.7 L (3.5-5.1) g/dL
[2024-10-24 20:10] VITALS: PULSE 82; RESP 20; O2SAT 97
[2024-10-25] MEDS: VANCOMYCIN ORAL 125 MG/2.5 ML SYRUP FEED TUBE ×4 (00:19→17:39)
[2024-10-25 05:10] LABS: Hematocrit 23.3 % (42.0-52.0); Hemoglobin 7.4 g/dL (14.0-18.0); Immature Platelet Fraction Pct 20.6 % (0.9-11.2); Mean Corpuscular HGB Conc 31.8 g/dl (32-36); Mean Corpuscular Hemoglobin 31.0 pg (26-34); Mean Corpuscular Volume 97.5 fl (80-100); Platelet Count Result 57 k/mm3 (150-375); Red Blood Count 2.39 M/mm3 (4.6-6.20); White Blood Count 7.8 K/mm3 (4.5-10.0)
[2024-10-25 05:23] LABS: Albumin Level 2.5 g/dL (3.5-5.1); Anion Gap 6 mmol/L (4-12); Blood Urea Nitrogen 30 mg/dL (9-20); Calcium 8.2 mg/dL (8.4-10.2); Carbon Dioxide 27 mmol/L (22-30); Chloride 108 mmol/L (98-107); Estimated CRCL calculation 56 ml/min; Estimated Glomerular Filt Rate > 60; Glucose 122 mg/dL (65-110); Potassium 3.8 mmol/L (3.4-5.0); Sodium 141 mmol/L (137-145)
[2024-10-25 05:47] VITALS: BP 125/69; PULSE 65; RESP 20; TEMP 36.4; O2SAT 100
[2024-10-25] MEDS: SODIUM CHLORIDE 0.45% 1,000 ML 75 ML IV CONT ×2 (05:59→17:39)
[2024-10-25 09:50] VITALS: PULSE 83; RESP 18; O2SAT 100
[2024-10-25] MEDS: THIAMINE HCL 100 MG TABLET FEED TUBE (10:17)
[2024-10-25] MEDS: FOLIC ACID 1 MG TABLET FEED TUBE (10:17)
[2024-10-25] MEDS: PANTOPRAZOLE SODIUM IV 40 MG VIAL IV PUSH ×2 (10:17→22:27)
--- NOTE | 2024-10-25 11:03 | P.PNNP_ITS ---
Progress Note: A&P Assessment and Plan (1) Acute kidney injury: Code(s): N17.9 - Acute kidney failure, unspecified Status: Acute Assessment and Plan: * Creatinine was 3 when he was admitted. * creatinine 1.0mg/l in October 2023 (from [facility] labs) * evaluation to date noted: * CT scan without evidence of obstruction * urine eosinophils negative * elevated CPK noted - follow trend * urine electrolytes prerenal * UA negative for infection * suspect that the etiology is multifactorial: * hemodynamic instability/shock * prerenal factors/hypovolemia * rhabodmyolysis * infection (although no evidence to date) * other(?) * Creatinine is normal today. * I think we can stop the Half-normal saline. * kidney function is good. CO2 levels are good. Sodium level is okay. (2) Hypernatremia: Code(s): E87.0 - Hyperosmolality and hypernatremia Status: Acute Assessment and Plan: * sodium normal by October 2023 labs * Sodium level 141 (3) Rhabdomyolysis: Qualifiers: Encounter type: initial encounter Rhabdomyolysis type: traumatic Qualified Code(s): T79.6XXA - Traumatic ischemia of muscle, initial encounter Code(s): M62.82 - Rhabdomyolysis Status: Acute Assessment and Plan: * noted admission CPK * CPK last 634 * repeat the CPK and a urinalysis tomorrow. Consider consult down the line if he still has hematuria (4) Shock: Code(s): R57.9 - Shock, unspecified Status: Acute Assessment and Plan: * improved (5) Anemia: Code(s): D64.9 - Anemia, unspecified Status: Acute Assessment and Plan: * hemoglobin dropped to 6.2 and transfusion given. * Very slowly to unwilling. now 8.5. * Getting Epogen * Check another hemoglobin tomorrow. (6) Thrombocytopenia: Code(s): D69.6 - Thrombocytopenia, unspecified Status: Acute Assessment and Plan: * etiology? * Platelet count still up and down. Today's in the 30s * Hematology consult underway. * Lots of labs pending (7) Altered mental status: Qualifiers: Altered mental status type: disorientation Qualified Code(s): R41.0 - Disorientation, unspecified Code(s): R41.82 - Altered mental status, unspecified Status: Acute Assessment and Plan: * as noted on admission and currently * suspect due to acute illness - shock, ALEJANDRO/ARF, rhabdomyolysis...etc * Platelet count is low but no schistocytes. (8) Fall (on) (from) other stairs and steps, initial encounter: Code(s): W10.8XXA - Fall (on) (from) other stairs and steps, initial encounter Status: Acute Assessment and Plan: * presumed based on history... * found on the ground face down * unknown duration and etiology * Echo shows good left and right sides. * continue supportive therapy Subjective Date/time seen: 10/25/24 11:03 Interval history: patient is about the same today. He regards examiner. Tries to answer some questions but he mostly mumbles he does not really follow commands Exam Narrative: WDWN male in NAD Lying in the hospital bed on oxygen and tube feedings. skin no rash or sq nodules head ncat lungs clear to auscultation cor reg no rub or gallop abd BS+ nontender and soft ext no edema Objective Data Vital Signs Vital Signs: Vital Signs - 24 hr 10/24/24 16:31 10/24/24 20:10 10/25/24 05:47 Temperature 97.4 F L 97.6 F Pulse Rate 82 82 65 Respiratory Rate 20 20 20 Blood Pressure 130/81 125/69 Pulse Oximetry 97 97 100 Oxygen Delivery Room Air Fraction of Inspired Oxygen 21 Intake/Output Intake/Output: Intake & Output 10/22/24 10/23/24 10/24/24 10/25/24 23:59 23:59 23:59 23:59 Intake Total 830 5518.2 1000 Output Total 1050 1850 965 400 Balance -220 3668.2 -965 600 Meds/Results Medications: Active Medications Generic Name Dose Route Start Last Admin Trade Name Freq PRN Reason Stop Dose Admin Dextrose 12.5 gm 10/17/24 21:26 Dextrose 50% 25 Gm/50 Ml Syringe IV PUSH PRN PRN Hypoglycemia Protocol Enoxaparin Sodium 30 mg 10/18/24 09:00 Enoxaparin 30 Mg/0.3 Ml Syringe SUB-Q DAILY JHONY Folic Acid 1 mg 10/24/24 09:00 10/25/24 10:17 Folic Acid 1 Mg Tablet FEED TUBE 1 mg QAM JHONY Administration Glucagon 1 mg 10/17/24 21:26 Glucagon For Inj 1 Mg Vial IM PRN PRN Hypoglycemia Protocol Glucose 15 gm 10/17/24 21:26 Glucose Oral Gel 15 Gm Of Glucse In 37.5 Gm Tube PO PRN PRN Hypoglycemia Protocol Dextrose 1,000 mls @ 100 mls/hr 10/17/24 21:26 Dextrose 5% 1,000 Ml IVPB PRN PRN Hypoglycemia Protocol Sodium Chloride 1,000 mls @ 75 mls/hr 10/22/24 20:40 10/25/24 05:59 Sodium Chloride 0.45% IV CONT 75 mls/hr .[id number] JHONY Administration Pantoprazole Sodium 40 mg 10/18/24 21:00 10/25/24 10:17 Pantoprazole Sodium Iv 40 Mg Vial IV PUSH 40 mg Q12HR JHONY Administration Thiamine HCl 100 mg 10/24/24 09:00 10/25/24 10:17 Thiamine Hcl 100 Mg Tablet FEED TUBE 100 mg QAM JHONY Administration Vancomycin HCl 125 mg 10/22/24 15:00 10/25/24 05:27 Vancomycin Oral 125 Mg/2.5 Ml Syrup FEED TUBE 11/01/24 12:01 125 mg Q6HR JHONY Administration Radiology Results: ITS Impressions Chest X-Ray 10/17/24 10:45 IMPRESSION: No focal infiltrate or effusion. Chest/Abdomen/Pelvis CT 10/17/24 10:46 IMPRESSION: No hollow or solid organ injury. No acute fractures. Head CT 10/19/24 09:19 Impression: No acute intracranial hemorrhage or suspicious mass effect. Inflammatory sinus disease. Face CT 10/19/24 09:39 IMPRESSION: 1. Extensive sinus disease with near complete opacification of the right maxillary sinus and dependently layering fluid in the bilateral sphenoid sinuses. Correlate clinically for acute sinusitis. 2. Dental and periodontal disease with periapical lucency surrounding the posterior most remaining right maxillary molar. Renal Ultrasound 10/19/24 09:48 IMPRESSION: No hydronephrosis or renal calculi. No parenchymal findings to suggest the presence of medical renal disease. Simple cysts within the right kidney, for which no further follow-up is needed. Abdomen X-Ray 10/19/24 11:15 IMPRESSION: Nasogastric tube in good position and ready for immediate use. Brain MRI 10/24/24 14:22 IMPRESSION: 1. Age-related changes the brain. No acute intracranial process. 2. Prominent sinus disease with fluid nearly filling the right maxillary sinus and layering dependently in the bilateral sphenoid sinuses. Correlate clinically for acute sinusitis. Labs Labs: Laboratory Results - last 24 hr 10/24/24 10/24/24 10/25/24 11:54 18:44 04:42 WBC 7.8 RBC 2.39 L Hgb 7.4 L Hct 23.3 L MCV 97.5 MCH 31.0 MCHC 31.8 L RDW 18.8 H Plt Count 57 L D MPV TNP % Immature Plt Fraction 20.6 H Sodium 141 Potassium 3.8 Chloride 108 H Carbon Dioxide 27 Anion Gap 6 BUN 30 H Creatinine 1.05 Estim Creat Clear Calc 56 Estimated GFR > 60 Glucose 122 H POC Capillary Glucose 125 H 116 H Calcium 8.2 L Phosphorus 4.6 H Albumin 2.5 L
[2024-10-25 12:57] VITALS: BMI 11.0
--- NOTE | 2024-10-25 13:33 | PM.IMPN ---
Progress Note: A&P Assessment and Plan (1) Shock: Code(s): R57.9 - Shock, unspecified Status: Acute Assessment and Plan: RESOLVED 10/17: EMS arrived at patient's house: he was found face down with, hypotensive with systolic in the 50s, patient given IV fluids in the ER, central line inserted, started on Levophed. CT head was negative. Chest x-ray with no focal infiltrate or effusion. CT chest abdomen pelvis with no acute findings. Face CT with extensive sinus disease with near complete opacification of the right maxillary sinus and dependently layering fluid in the bilateral sphenoid sinuses. Dental and periodontal disease with periapical lucency surrounding the posterior-most remaining right maxillary molar. -off Levophed since the morning of 10/18 -procalcitonin levels are at high -patient was started on cefepime and vancomycin which was discontinued since there was no nidus of infection -MRSA screen is negative, -10/17: Blood cultures negative-so far -no nidus of infection on either chest x-ray, CT chest abdomen and pelvis, UA was clear, -10/19: given low body temperature, elevated procalcitonin started on ceftriaxone empirically. Procalcitonin can also be raised in tissue injury -10/19: UA reflective of UTI, also given sinusitis on CT scan of the face, started patient on ceftriaxone since 10/19/2024. Urine culture not obtained. Will conclude 10/24/2019 Liquid stool. Could be tube feed related. C diff came back positive Started on vancomycin 10/23/2019 (2) Altered mental status: Qualifiers: Altered mental status type: disorientation Qualified Code(s): R41.0 - Disorientation, unspecified Code(s): R41.82 - Altered mental status, unspecified Status: Acute Assessment and Plan: Altered mental status is multifactorial could be related to hypovolemia, shock, hypotension, acute kidney injury, rhabdomyolysis -CT brain was negative for intracranial abnormalities -MRI cannot be performed as patient was in the [place] and may have sharpnel exposure according to his daughter -10/19: Repeat CT brain did not show any acute intracranial hemorrhage or suspicious mass effect, inflammatory sinus disease. -10/19: CT facial bones showed extensive sinus disease with near complete opacification of the right maxillary sinus and dependently layering fluid in the bilateral sphenoid sinuses. Dental and periodontal disease with periapical lucency surrounding the posterior most remaining right maxillary molar Despite improvement in metabolic issues he remains encephalopathic Will further evaluate with MRI brain and EEG. Neurology consultation Brain MRI in process EEG performed: No seizure activity noted. (3) Fall (on) (from) other stairs and steps, initial encounter: Code(s): W10.8XXA - Fall (on) (from) other stairs and steps, initial encounter Status: Acute Assessment and Plan: Patient was found on the ground face down unknown amount of time, unknown etiology -continue treat underlying cause -10/18: Echocardiogram showed EF of 60-65%, normal biventricular size and systolic function, no significant valvular abnormalities (4) Acute kidney injury: Code(s): N17.9 - Acute kidney failure, unspecified Status: Acute Assessment and Plan: Acute kidney injury likely related to hypotension, hypovolemia, shock, rhabdomyolysis -patient received 3 L IV fluid bolus in the ER -started on bicarb infusion -patient was hypernatremic on admission, -sodium levels trending down gradually currently on bicarb infusion per Nephrology -continue to monitor urine output, electrolytes and renal function -patient presented with creatinine of 3.0 (baseline 1.0 in October 2023 at [facility]) -urine lytes not reflective of prerenal picture, urine eosinophils are negative -CT scan of the abdomen and pelvis did not show any hydronephrosis -renal ultrasound: No hydronephrosis or renal calculi, no apparent, findings to suggest the presence of medical renal disease. Simple cyst within the right kidney -CK levels trending down on admission 5864 peaked to 8292. -appreciate Nephrology evaluation and recommendation Conjunctival chemosis noted. IV fluids stopped Already getting tube feeds at 55 cc an hour (5) Rhabdomyolysis: Qualifiers: Encounter type: initial encounter Rhabdomyolysis type: traumatic Qualified Code(s): T79.6XXA - Traumatic ischemia of muscle, initial encounter Code(s): M62.82 - Rhabdomyolysis Status: Acute Assessment and Plan: Rhabdomyolysis likely related to being down on the ground for unknown amount of time -patient has been given 3 L IV fluids in the ER plus 500 mL of LR bolus in the ICU on 10/18. Patient seems to be adequately fluid-resuscitated -continue IV fluids per Nephrology CK levels trending down on admission 5864 peaked to 8292. (6) Electrolyte imbalance: Code(s): E87.8 - Other disorders of electrolyte and fluid balance, not elsewhere classified Status: Acute Assessment and Plan: Magnesium repleted (7) Anemia: Code(s): D64.9 - Anemia, unspecified Status: Acute Assessment and Plan: Patient dropped his hemoglobin this morning to 6.2 from 9.1 on admission -10/18: status post 2 units of packed RBCs -stool occult is negative -vitamin B12 levels are normal, folic acid is low will substitute -iron panel looks normal -hemoglobin remained stable (8) Thrombocytopenia: Code(s): D69.6 - Thrombocytopenia, unspecified Status: Acute Assessment and Plan: Thrombocytopenia with platelet counts of 62 this morning, 91 on admission -10/18: status post 1 unit of platelets -INR 1.2 on admission -platelets remain low, continue to monitor Does have history of chronic alcohol abuse per family. No baseline available Concern for TTP. Hematology consult Will Also order hit panel Plan 69 y/o male was found after he fell under stairs by his family, patient had AMS was not able to provide details ROS or history, patient had CT was normal upon arrival, as well his MRI of Brain for any acute injury, patient. upon arrival patient hgb was 9.1 and dropped to 6.2 without and GI bleed, patient was seen by mechanical inspector and suspect anemia 2/2 renal dysfunction, and work up is in progress, also on admission patient had elevated CK levels of 5864 most likely 2/2 fall and don't know how long patient was on the ground after fall , ALEJANDRO has improved and patient is seen by service representative, patient had dysphagia on NG tube feeding consulted GI for PEG however patient platelets were low in 37 today is 57 suspect most likely 2/2 alcohol abuse, seen by mechanical inspector and further work up is in progress, today patient lungs sound congested will do XCR and follow up. DVT prophylaxis: SCDs, no chemoprophylaxis due to thrombocytopenia Stress ulcer prophylaxis: Protonix IV q.12 hours Nutrition: NG tube placed on 10/19: Started on tube feeds and tolerating Code Status: Full code Subjective Date/time seen: 10/25/24 13:33 Interval history: 69 y/o male was found after he fell under stairs by his family, patient had AMS was not able to provide details ROS or history, patient had CT was normal upon arrival, as well his MRI of Brain for any acute injury, patient. upon arrival patient hgb was 9.1 and dropped to 6.2 without and GI bleed, patient was seen by mechanical inspector and suspect anemia 2/2 renal dysfunction, and work up is in progress, also on admission patient had elevated CK levels of 5864 most likely 2/2 fall and don't know how long patient was on the ground after fall , ALEJANDRO has improved and patient is seen by service representative, patient had dysphagia on NG tube feeding consulted GI for PEG however patient platelets were low in 37 today is 57 suspect most likely 2/2 alcohol abuse, seen by mechanical inspector and further work up is in progress, today patient lungs sound congested will do XCR and follow up. Review of Systems Review of Systems: All systems reviewed & are unremarkable except as noted in HPI and below ( Limited, A&O x1, unreliable) ROS unobtainable: Yes unobtainable due to medical condition and unobtainable due to mental status Exam Narrative: Patient is comfortable, NAD HEENT: eyes are clear and none icteric, NG tube in place LUNGS:CTA HEART: RR S1S2 ABD: BS+, Soft and nontender Lower extremities: no edema SKIN: nonjaundiced Neuro: grossly intact. Objective Data Vital Signs Vital Signs: Vital Signs - 24 hr 10/24/24 16:31 10/24/24 20:10 10/25/24 05:47 Temperature 36.3 C L 36.4 C Pulse Rate 82 82 65 Respiratory Rate 20 20 20 Blood Pressure 130/81 125/69 Pulse Oximetry 97 97 100 Oxygen Delivery Room Air Fraction of Inspired Oxygen 21 Intake/Output Intake/Output: Intake & Output 10/22/24 10/23/24 10/24/24 10/25/24 23:59 23:59 23:59 23:59 Intake Total 830 5518.2 1000 Output Total 1050 1850 965 400 Balance -220 3668.2 -965 600 Meds/Results Medications: Active Medications Generic Name Dose Route Start Last Admin Trade Name Freq PRN Reason Stop Dose Admin Dextrose 12.5 gm 10/17/24 21:26 Dextrose 50% 25 Gm/50 Ml Syringe IV PUSH PRN PRN Hypoglycemia Protocol Enoxaparin Sodium 30 mg 10/18/24 09:00 Enoxaparin 30 Mg/0.3 Ml Syringe SUB-Q DAILY JHONY Folic Acid 1 mg 10/24/24 09:00 10/25/24 10:17 Folic Acid 1 Mg Tablet FEED TUBE 1 mg QAM JHONY Administration Glucagon 1 mg 10/17/24 21:26 Glucagon For Inj 1 Mg Vial IM PRN PRN Hypoglycemia Protocol Glucose 15 gm 10/17/24 21:26 Glucose Oral Gel 15 Gm Of Glucse In 37.5 Gm Tube PO PRN PRN Hypoglycemia Protocol Dextrose 1,000 mls @ 100 mls/hr 10/17/24 21:26 Dextrose 5% 1,000 Ml IVPB PRN PRN Hypoglycemia Protocol Sodium Chloride 1,000 mls @ 75 mls/hr 10/22/24 20:40 10/25/24 05:59 Sodium Chloride 0.45% IV CONT 75 mls/hr .[id number] JHONY Administration Pantoprazole Sodium 40 mg 10/18/24 21:00 10/25/24 10:17 Pantoprazole Sodium Iv 40 Mg Vial IV PUSH 40 mg Q12HR JHONY Administration Thiamine HCl 100 mg 10/24/24 09:00 10/25/24 10:17 Thiamine Hcl 100 Mg Tablet FEED TUBE 100 mg QAM JHONY Administration Vancomycin HCl 125 mg 10/22/24 15:00 10/25/24 11:33 Vancomycin Oral 125 Mg/2.5 Ml Syrup FEED TUBE 11/01/24 12:01 125 mg Q6HR JHONY Administration Radiology Results: ITS Impressions Chest/Abdomen/Pelvis CT 10/17/24 10:46 IMPRESSION: No hollow or solid organ injury. No acute fractures. Head CT 10/19/24 09:19 Impression: No acute intracranial hemorrhage or suspicious mass effect. Inflammatory sinus disease. Face CT 10/19/24 09:39 IMPRESSION: 1. Extensive sinus disease with near complete opacification of the right maxillary sinus and dependently layering fluid in the bilateral sphenoid sinuses. Correlate clinically for acute sinusitis. 2. Dental and periodontal disease with periapical lucency surrounding the posterior most remaining right maxillary molar. Renal Ultrasound 10/19/24 09:48 IMPRESSION: No hydronephrosis or renal calculi. No parenchymal findings to suggest the presence of medical renal disease. Simple cysts within the right kidney, for which no further follow-up is needed. Abdomen X-Ray 10/19/24 11:15 IMPRESSION: Nasogastric tube in good position and ready for immediate use. Brain MRI 10/24/24 14:22 IMPRESSION: 1. Age-related changes the brain. No acute intracranial process. 2. Prominent sinus disease with fluid nearly filling the right maxillary sinus and layering dependently in the bilateral sphenoid sinuses. Correlate clinically for acute sinusitis. Labs Labs: Laboratory Results - last 24 hr 10/24/24 10/25/24 10/25/24 18:44 04:42 11:51 WBC 7.8 RBC 2.39 L Hgb 7.4 L Hct 23.3 L MCV 97.5 MCH 31.0 MCHC 31.8 L RDW 18.8 H Plt Count 57 L D MPV TNP % Immature Plt Fraction 20.6 H Sodium 141 Potassium 3.8 Chloride 108 H Carbon Dioxide 27 Anion Gap 6 BUN 30 H Creatinine 1.05 Estim Creat Clear Calc 56 Estimated GFR > 60 Glucose 122 H POC Capillary Glucose 116 H 116 H Calcium 8.2 L Phosphorus 4.6 H Albumin 2.5 L Quality VTE Prophylaxis VTE prophylaxis: mechanical ordered
[2024-10-25 14:00] VITALS: BP 121/69; PULSE 83; RESP 18; TEMP 36.4; O2SAT 100
[2024-10-25] MEDS: CEFEPIME 1 GM/NS 50 ML 1 GM/50 ML BAG IVPB (17:38)
[2024-10-25] MEDS: AZITHROMYCIN IV 250 MG in SODIUM CHLORIDE 0.9% IV 250 ML IVPB (17:56)
[2024-10-25 20:09] VITALS: BP 113/65; PULSE 81; RESP 18; TEMP 36.4; O2SAT 96
[2024-10-25 20:56] VITALS: O2SAT 98
[2024-10-26] MEDS: CEFEPIME 1 GM/NS 50 ML 1 GM/50 ML BAG IVPB ×3 (01:38→18:16)
[2024-10-26] MEDS: VANCOMYCIN ORAL 125 MG/2.5 ML SYRUP FEED TUBE ×5 (01:39→22:37)
[2024-10-26 05:33] VITALS: BP 113/65; PULSE 73; RESP 18; TEMP 36.4; O2SAT 100
[2024-10-26 06:06] LABS: Add Urine Microscopic? YES; Appearance Urine Clear (Clear); Glucose Urine UA Negative (Negative); Leukocyte Esterase Ur Negative LEU/UL (Negative); Nitrate Urine Negative (Negative); Non Pathogenic Casts 0-2; Specific Grav Ur 1.015 (1.001-1.035)
[2024-10-26] MEDS: SODIUM CHLORIDE 0.45% 1,000 ML 75 ML IV CONT ×2 (06:08→18:16)
[2024-10-26 06:38] LABS: Albumin Level 2.3 g/dL (3.5-5.1); Anion Gap 7 mmol/L (4-12); Blood Urea Nitrogen 27 mg/dL (9-20); Calcium 8.1 mg/dL (8.4-10.2); Carbon Dioxide 27 mmol/L (22-30); Chloride 108 mmol/L (98-107); Creatine Kinase 189 U/L (55-170); Estimated CRCL calculation 62 ml/min; Estimated Glomerular Filt Rate > 60; Glucose 112 mg/dL (65-110); Potassium 4.1 mmol/L (3.4-5.0); Sodium 142 mmol/L (137-145)
[2024-10-26 10:05] VITALS: BMI 11.0
[2024-10-26] MEDS: PANTOPRAZOLE SODIUM IV 40 MG VIAL IV PUSH ×2 (10:11→22:31)
[2024-10-26] MEDS: FOLIC ACID 1 MG TABLET FEED TUBE (10:13)
[2024-10-26] MEDS: THIAMINE HCL 100 MG TABLET FEED TUBE (10:14)
--- NOTE | 2024-10-26 10:30 | P.PNNP_ITS ---
Progress Note: A&P Assessment and Plan (1) Acute kidney injury: Code(s): N17.9 - Acute kidney failure, unspecified Status: Acute Assessment and Plan: * Creatinine was 3 when he was admitted. * creatinine 1.0mg/l in October 2023 (from [facility] labs) * evaluation to date noted: * CT scan without evidence of obstruction * urine eosinophils negative * elevated CPK noted - follow trend * urine electrolytes prerenal * UA negative for infection * suspect that the etiology is multifactorial: * hemodynamic instability/shock * prerenal factors/hypovolemia * rhabodmyolysis * infection (although no evidence to date) * other(?) * Creatinine is normal today. * he is off the IV fluids. * Renal will sign off (2) Hypernatremia: Code(s): E87.0 - Hyperosmolality and hypernatremia Status: Acute Assessment and Plan: * sodium normal by October 2023 labs * Sodium level 141 (3) Rhabdomyolysis: Qualifiers: Encounter type: initial encounter Rhabdomyolysis type: traumatic Qualified Code(s): T79.6XXA - Traumatic ischemia of muscle, initial encounter Code(s): M62.82 - Rhabdomyolysis Status: Acute Assessment and Plan: * noted admission CPK * CPK 161 * UA still shows some blood. * Consider consult for hematuria. (4) Shock: Code(s): R57.9 - Shock, unspecified Status: Acute Assessment and Plan: * improved (5) Anemia: Code(s): D64.9 - Anemia, unspecified Status: Acute Assessment and Plan: * hemoglobin dropped to 6.2 and transfusion given. * Very slowly to unwilling. now 7 * Getting Epogen * Hematology on the case (6) Thrombocytopenia: Code(s): D69.6 - Thrombocytopenia, unspecified Status: Acute Assessment and Plan: * etiology? * Platelet count still up and down. Today's in the 30s * Hematology consult underway. * Lots of labs pending (7) Altered mental status: Qualifiers: Altered mental status type: disorientation Qualified Code(s): R41.0 - Disorientation, unspecified Code(s): R41.82 - Altered mental status, unspecified Status: Acute Assessment and Plan: * as noted on admission and currently * suspect due to acute illness - shock, ALEJANDRO/ARF, rhabdomyolysis...etc * Platelet count is low but no schistocytes. (8) Fall (on) (from) other stairs and steps, initial encounter: Code(s): W10.8XXA - Fall (on) (from) other stairs and steps, initial encounter Status: Acute Assessment and Plan: * presumed based on history... * found on the ground face down * unknown duration and etiology * Echo shows good left and right sides. * continue supportive therapy Subjective Date/time seen: 10/26/24 10:30 Interval history: Late entry Patient was seen Tuesday the in the morning. patient is about the same today. opens eyes and regards examiner. He does not seem to be able to speak very much. It is hard to say because he mumbles but he might be aphasic. Exam Narrative: WDWN male in NAD Lying in the hospital bed on oxygen and tube feedings. skin no rash or sq nodules head ncat lungs clear bilaterally cor reg no rub or gallop abd BS+ nontender and soft ext no edema or cyanosis Objective Data Vital Signs Vital Signs: Vital Signs - 24 hr 10/26/24 10:35 10/26/24 14:00 10/26/24 20:00 Temperature 97.4 F L Pulse Rate 75 Respiratory Rate 16 Blood Pressure 126/75 Pulse Oximetry 100 Oxygen Delivery Room Air Room Air Fraction of Inspired Oxygen 21 10/26/24 22:00 10/26/24 22:10 10/27/24 06:00 Temperature 97.5 F L 97.5 F L Pulse Rate 77 81 74 Respiratory Rate 18 18 Blood Pressure 144/71 H 128/77 Pulse Oximetry 100 97 100 Oxygen Delivery Room Air Fraction of Inspired Oxygen 21 Intake/Output Intake/Output: Intake & Output 10/24/24 10/25/24 10/26/24 10/27/24 23:59 23:59 23:59 23:59 Intake Total 3685 4322.2 2748 Output Total 967 813 902 266 0435 Balance -965 6785 3622.2 -142 Meds/Results Medications: Active Medications Generic Name Dose Route Start Last Admin Trade Name Freq PRN Reason Stop Dose Admin Dextrose 12.5 gm 10/17/24 21:26 Dextrose 50% 25 Gm/50 Ml Syringe IV PUSH PRN PRN Hypoglycemia Protocol Enoxaparin Sodium 30 mg 10/18/24 09:00 Enoxaparin 30 Mg/0.3 Ml Syringe SUB-Q DAILY JHONY Folic Acid 1 mg 10/24/24 09:00 10/27/24 10:20 Folic Acid 1 Mg Tablet FEED TUBE 1 mg QAM JHONY Administration Glucagon 1 mg 10/17/24 21:26 Glucagon For Inj 1 Mg Vial IM PRN PRN Hypoglycemia Protocol Glucose 15 gm 10/17/24 21:26 Glucose Oral Gel 15 Gm Of Glucse In 37.5 Gm Tube PO PRN PRN Hypoglycemia Protocol Dextrose 1,000 mls @ 100 mls/hr 10/17/24 21:26 Dextrose 5% 1,000 Ml IVPB PRN PRN Hypoglycemia Protocol Sodium Chloride 1,000 mls @ 75 mls/hr 10/22/24 20:40 10/27/24 10:19 Sodium Chloride 0.45% IV CONT 75 mls/hr .[id number] JHONY Administration Azithromycin 250 mg/ Sodium 250 mls @ 250 mls/hr 10/25/24 17:00 10/26/24 18:15 Chloride IVPB 250 mls/hr Q24H JHONY Administration Cefepime HCl 1 gm in 50 mls @ 100 mls/hr 10/25/24 18:00 10/27/24 10:19 Maxipime 1 Gm/Ns 50 Ml IVPB 100 mls/hr Q8H JHONY Administration Magnesium Sulfate 2 gm in 50 mls @ 50 mls/hr 10/27/24 09:30 10/27/24 10:19 Magnesium Sulf 2 Gm/Water 50ml IVPB 10/27/24 10:29 50 mls/hr ONCE ONE Administration Pantoprazole Sodium 40 mg 10/18/24 21:00 10/27/24 10:20 Pantoprazole Sodium Iv 40 Mg Vial IV PUSH 40 mg Q12HR JHONY Administration Thiamine HCl 100 mg 10/24/24 09:00 10/27/24 10:20 Thiamine Hcl 100 Mg Tablet FEED TUBE 100 mg QAM JHONY Administration Vancomycin HCl 125 mg 10/22/24 15:00 10/27/24 06:07 Vancomycin Oral 125 Mg/2.5 Ml Syrup FEED TUBE 11/01/24 12:01 125 mg Q6HR JHONY Administration Radiology Results: ITS Impressions Chest/Abdomen/Pelvis CT 10/17/24 10:46 IMPRESSION: No hollow or solid organ injury. No acute fractures. Head CT 10/19/24 09:19 Impression: No acute intracranial hemorrhage or suspicious mass effect. Inflammatory sinus disease. Face CT 10/19/24 09:39 IMPRESSION: 1. Extensive sinus disease with near complete opacification of the right maxillary sinus and dependently layering fluid in the bilateral sphenoid sinuses. Correlate clinically for acute sinusitis. 2. Dental and periodontal disease with periapical lucency surrounding the posterior most remaining right maxillary molar. Renal Ultrasound 10/19/24 09:48 IMPRESSION: No hydronephrosis or renal calculi. No parenchymal findings to suggest the presence of medical renal disease. Simple cysts within the right kidney, for which no further follow-up is needed. Abdomen X-Ray 10/19/24 11:15 IMPRESSION: Nasogastric tube in good position and ready for immediate use. Brain MRI 10/24/24 14:22 IMPRESSION: 1. Age-related changes the brain. No acute intracranial process. 2. Prominent sinus disease with fluid nearly filling the right maxillary sinus and layering dependently in the bilateral sphenoid sinuses. Correlate clinically for acute sinusitis. Chest X-Ray 10/25/24 13:47 Impression: 1: Right basilar airspace disease, atelectasis versus pneumonia. Elevated right diaphragm. Labs Labs: Laboratory Results - last 24 hr 10/18/24 10/23/24 10/26/24 11:18 14:38 05:25 WBC 7.9 RBC 2.25 L Hgb 7.0 L Hct 22.3 L MCV 99.1 MCH 31.1 MCHC 31.4 L RDW 18.8 H Plt Count 115 L D MPV 13.7 H Immature Gran % (Auto) 0.5 Neut % (Auto) 74.7 H Lymph % (Auto) 11.9 L [place] % (Auto) 11.2 H Eos % (Auto) 1.4 Baso % (Auto) 0.3 Lymph # (Auto) 0.94 [place]a # (Auto) 0.9 H Eos # (Auto) 0.1 Baso # (Auto) 0.0 Abs Immat Gran (auto) 0.04 H Absolute Neuts (auto) 5.9 Absolute Nucleated RBC 0.020 H Nucleated RBC % 0.3 H % Immature Plt Fraction 18.5 H Sodium Potassium Chloride Carbon Dioxide Anion Gap BUN Creatinine Estim Creat Clear Calc Estimated GFR Glucose POC Capillary Glucose Calcium Magnesium Total Bilirubin AST ALT Alkaline Phosphatase Total Creatine Kinase Total Protein Albumin Ur Random Creatinine 90 Ur Random Chloride <20 L U Random Chloride/Creat See note Heparin-induced Plt Ab Negative Hep-Induced Plt Ab Cmmt 0.104 10/26/24 10/26/24 10/27/24 12:05 18:04 00:02 WBC RBC Hgb Hct MCV MCH MCHC RDW Plt Count MPV Immature Gran % (Auto) Neut % (Auto) Lymph % (Auto) Louisa % (Auto) Eos % (Auto) Baso % (Auto) Lymph # (Auto) Louisa # (Auto) Eos # (Auto) Baso # (Auto) Abs Immat Gran (auto) Absolute Neuts (auto) Absolute Nucleated RBC Nucleated RBC % % Immature Plt Fraction Sodium Potassium Chloride Carbon Dioxide Anion Gap BUN Creatinine Estim Creat Clear Calc Estimated GFR Glucose POC Capillary Glucose 102 94 97 Calcium Magnesium Total Bilirubin AST ALT Alkaline Phosphatase Total Creatine Kinase Total Protein Albumin Ur Random Creatinine Ur Random Chloride U Random Chloride/Creat Heparin-induced Plt Ab Hep-Induced Plt Ab Cmmt 10/27/24 10/27/24 05:14 06:06 WBC 6.9 RBC 2.25 L Hgb 7.0 L Hct 22.2 L MCV 98.7 MCH 31.1 MCHC 31.5 L RDW 19.1 H Plt Count 178 D MPV 13.2 H Immature Gran % (Auto) 0.6 H Neut % (Auto) 71.9 Lymph % (Auto) 13.3 L [place] % (Auto) 12.0 H Eos % (Auto) 1.9 Baso % (Auto) 0.3 Lymph # (Auto) 0.92 Louisa # (Auto) 0.8 H Eos # (Auto) 0.1 Baso # (Auto) 0.0 Abs Immat Gran (auto) 0.04 H Absolute Neuts (auto) 5.0 Absolute Nucleated RBC 0.000 Nucleated RBC % 0.0 % Immature Plt Fraction 14.5 H Sodium 141 Potassium 4.1 Chloride 110 H Carbon Dioxide 23 Anion Gap 8 BUN 24 H Creatinine 0.86 Estim Creat Clear Calc 76 Estimated GFR > 60 Glucose 111 H POC Capillary Glucose 106 H Calcium 8.2 L Magnesium 1.5 L Total Bilirubin 0.7 AST 36 ALT 28 Alkaline Phosphatase 145 H Total Creatine Kinase 161 Total Protein 5.5 L Albumin 2.4 L Ur Random Creatinine Ur Random Chloride U Random Chloride/Creat Heparin-induced Plt Ab Hep-Induced Plt Ab Cmmt
--- NOTE | 2024-10-26 10:42 | PCNFU ---
Nutrition Follow-Up Complete: Inadequate Oral Intake as related to AMS as evidenced by NPO. Goal: Meet estimated nutritional needs Patient is meeting goal. No new goal. Pt current nutrition is Jevity 1.5 at 55 ml/hr Last recorded weight is 82.3 kg, up from 66 kg on admit. Bowel Motility: FMS Labs Reviewed: Mg 1.4, Glu 112, Alb 2.3 Meds Noted: Rocephin, Folic Acid, Protonix, Lovenox. Skin: WNL Additional Notes: Patient remains on tube feedings of Jevity 1.5 at 55 ml/hr via NGT. GI consulted for PEG tube, unable to place 2/2 to severe thrombocytopenia and risk of bleeding. Plan to continue current NGT feedings which are providing 1815 kcal/84 gm protein/920 ml water. Flush 100 ml q 4 hours. Banatrol Plus TF given BID for stool bulking 2/2 to Cdiff positive. will monitor weight, labs, skin, diet orders, meds every Tuesday and Tuesday.
[2024-10-26 10:59] LABS: Chloride Rand Ur <20 mmol/L (32-290)
[2024-10-26 11:18] LABS: Hematocrit 22.3 % (42.0-52.0); Hemoglobin 7.0 g/dL (14.0-18.0); Immature Granulocyte Percent A 0.5 % (0-0.5); Immature Platelet Fraction Pct 18.5 % (0.9-11.2); Lymphocytes Absolute Auto 0.94 K/mm3 (0.9-3.2); Mean Corpuscular HGB Conc 31.4 g/dl (32-36); Mean Corpuscular Hemoglobin 31.1 pg (26-34); Mean Corpuscular Volume 99.1 fl (80-100); Nucleated Red Blood Cells Absolute Auto 0.020 K/mm3 (0.0-0.012); Nucleated Red Blood Cells Perc 0.3 % (0.0-0.2); Platelet Count Result 115 k/mm3 (150-375); Red Blood Count 2.25 M/mm3 (4.6-6.20); White Blood Count 7.9 K/mm3 (4.5-10.0)
--- NOTE | 2024-10-26 13:40 | PM.IMPN ---
Progress Note: A&P Assessment and Plan (1) Shock: Code(s): R57.9 - Shock, unspecified Status: Acute Assessment and Plan: RESOLVED 10/17: EMS arrived at patient's house: he was found face down with, hypotensive with systolic in the 50s, patient given IV fluids in the ER, central line inserted, started on Levophed. CT head was negative. Chest x-ray with no focal infiltrate or effusion. CT chest abdomen pelvis with no acute findings. Face CT with extensive sinus disease with near complete opacification of the right maxillary sinus and dependently layering fluid in the bilateral sphenoid sinuses. Dental and periodontal disease with periapical lucency surrounding the posterior-most remaining right maxillary molar. -off Levophed since the morning of 10/18 -procalcitonin levels are at high -patient was started on cefepime and vancomycin which was discontinued since there was no nidus of infection -MRSA screen is negative, -10/17: Blood cultures negative-so far -no nidus of infection on either chest x-ray, CT chest abdomen and pelvis, UA was clear, -10/19: given low body temperature, elevated procalcitonin started on ceftriaxone empirically. Procalcitonin can also be raised in tissue injury -10/19: UA reflective of UTI, also given sinusitis on CT scan of the face, started patient on ceftriaxone since 10/19/2024. Urine culture not obtained. Will conclude 10/24/2019 Liquid stool. Could be tube feed related. C diff came back positive Started on vancomycin 10/23/2019 (2) Altered mental status: Qualifiers: Altered mental status type: disorientation Qualified Code(s): R41.0 - Disorientation, unspecified Code(s): R41.82 - Altered mental status, unspecified Status: Acute Assessment and Plan: Altered mental status is multifactorial could be related to hypovolemia, shock, hypotension, acute kidney injury, rhabdomyolysis -CT brain was negative for intracranial abnormalities -MRI cannot be performed as patient was in the [place] and may have sharpnel exposure according to his daughter -10/19: Repeat CT brain did not show any acute intracranial hemorrhage or suspicious mass effect, inflammatory sinus disease. -10/19: CT facial bones showed extensive sinus disease with near complete opacification of the right maxillary sinus and dependently layering fluid in the bilateral sphenoid sinuses. Dental and periodontal disease with periapical lucency surrounding the posterior most remaining right maxillary molar Despite improvement in metabolic issues he remains encephalopathic Will further evaluate with MRI brain and EEG. Neurology consultation Brain MRI in process EEG performed: No seizure activity noted. (3) Fall (on) (from) other stairs and steps, initial encounter: Code(s): W10.8XXA - Fall (on) (from) other stairs and steps, initial encounter Status: Acute Assessment and Plan: Patient was found on the ground face down unknown amount of time, unknown etiology -continue treat underlying cause -10/18: Echocardiogram showed EF of 60-65%, normal biventricular size and systolic function, no significant valvular abnormalities (4) Acute kidney injury: Code(s): N17.9 - Acute kidney failure, unspecified Status: Acute Assessment and Plan: Acute kidney injury likely related to hypotension, hypovolemia, shock, rhabdomyolysis -patient received 3 L IV fluid bolus in the ER -started on bicarb infusion -patient was hypernatremic on admission, -sodium levels trending down gradually currently on bicarb infusion per Nephrology -continue to monitor urine output, electrolytes and renal function -patient presented with creatinine of 3.0 (baseline 1.0 in October 2023 at [facility]) -urine lytes not reflective of prerenal picture, urine eosinophils are negative -CT scan of the abdomen and pelvis did not show any hydronephrosis -renal ultrasound: No hydronephrosis or renal calculi, no apparent, findings to suggest the presence of medical renal disease. Simple cyst within the right kidney -CK levels trending down on admission 5864 peaked to 8292. -appreciate Nephrology evaluation and recommendation Conjunctival chemosis noted. IV fluids stopped Already getting tube feeds at 55 cc an hour (5) Rhabdomyolysis: Qualifiers: Encounter type: initial encounter Rhabdomyolysis type: traumatic Qualified Code(s): T79.6XXA - Traumatic ischemia of muscle, initial encounter Code(s): M62.82 - Rhabdomyolysis Status: Acute Assessment and Plan: Rhabdomyolysis likely related to being down on the ground for unknown amount of time -patient has been given 3 L IV fluids in the ER plus 500 mL of LR bolus in the ICU on 10/18. Patient seems to be adequately fluid-resuscitated -continue IV fluids per Nephrology CK levels trending down on admission 5864 peaked to 8292. (6) Electrolyte imbalance: Code(s): E87.8 - Other disorders of electrolyte and fluid balance, not elsewhere classified Status: Acute Assessment and Plan: Magnesium repleted (7) Anemia: Code(s): D64.9 - Anemia, unspecified Status: Acute Assessment and Plan: Patient dropped his hemoglobin this morning to 6.2 from 9.1 on admission -10/18: status post 2 units of packed RBCs -stool occult is negative -vitamin B12 levels are normal, folic acid is low will substitute -iron panel looks normal -hemoglobin remained stable (8) Thrombocytopenia: Code(s): D69.6 - Thrombocytopenia, unspecified Status: Acute Assessment and Plan: Thrombocytopenia with platelet counts of 62 this morning, 91 on admission -10/18: status post 1 unit of platelets -INR 1.2 on admission -platelets remain low, continue to monitor Does have history of chronic alcohol abuse per family. No baseline available Concern for TTP. Hematology consult Will Also order hit panel Plan 69 y/o male was found after he fell under stairs by his family, patient had AMS was not able to provide details ROS or history, patient had CT was normal upon arrival, as well his MRI of Brain for any acute injury, patient. upon arrival patient hgb was 9.1 and dropped to 6.2 without and GI bleed, patient was seen by inspector exhaust emissions and suspect anemia 2/2 renal dysfunction, and work up is in progress, also on admission patient had elevated CK levels of 5864 most likely 2/2 fall and don't know how long patient was on the ground after fall however his CK levels today are 189 and his ALEJANDRO has improved and patient is seen by aviation support equipment repairer, patient had dysphagia on NG tube feeding consulted GI for PEG however patient platelets were low in 37 today is 115, suspect most likely 2/2 alcohol abuse, seen by inspector exhaust emissions and further work up is in progress, patient lungs sounded congested CXR concerning for pneumonia being treated with Cefepime and Zithromax, blood culture no growth so far, and follow up. DVT prophylaxis: SCDs, no chemoprophylaxis due to thrombocytopenia Stress ulcer prophylaxis: Protonix IV q.12 hours Nutrition: NG tube placed on 10/19: Started on tube feeds and tolerating Code Status: Full code Subjective Date/time seen: 10/26/24 13:40 Interval history: 69 y/o male was found after he fell under stairs by his family, patient had AMS was not able to provide details ROS or history, patient had CT was normal upon arrival, as well his MRI of Brain for any acute injury, patient. upon arrival patient hgb was 9.1 and dropped to 6.2 without and GI bleed, patient was seen by inspector exhaust emissions and suspect anemia 2/2 renal dysfunction, and work up is in progress, also on admission patient had elevated CK levels of 5864 most likely 2/2 fall and don't know how long patient was on the ground after fall however his CK levels today are 189 and his ALEJANDRO has improved and patient is seen by aviation support equipment repairer, patient had dysphagia on NG tube feeding consulted GI for PEG however patient platelets were low in 37 today is 115, suspect most likely 2/2 alcohol abuse, seen by inspector exhaust emissions and further work up is in progress, patient lungs sounded congested CXR concerning for pneumonia being treated with Cefepime and Zithromax, blood culture no growth so far, and follow up. Review of Systems Review of Systems: ROS unobtainable: Yes unobtainable due to medical condition and unobtainable due to mental status Exam Narrative: Patient is comfortable, NAD HEENT: eyes are clear and none icteric, NG tube in place LUNGS:CTA HEART: RR S1S2 ABD: BS+, Soft and nontender Lower extremities: no edema SKIN: nonjaundiced Neuro: grossly intact. Objective Data Vital Signs Vital Signs: Vital Signs - 24 hr 10/25/24 14:00 10/25/24 20:00 10/25/24 20:09 Temperature 36.4 C 36.4 C Pulse Rate 83 81 Respiratory Rate 18 18 Blood Pressure 121/69 113/65 Pulse Oximetry 100 96 Oxygen Delivery Room Air 10/25/24 20:56 10/26/24 05:33 10/26/24 10:35 Temperature 36.4 C Pulse Rate 73 Respiratory Rate 18 Blood Pressure 113/65 Pulse Oximetry 98 100 Oxygen Delivery Room Air Room Air Intake/Output Intake/Output: Intake & Output 10/23/24 10/24/24 10/25/24 10/26/24 23:59 23:59 23:59 23:59 Intake Total 5518.2 3875 1902.2 Output Total 1850 965 850 700 Balance 3668.2 -965 3025 1202.2 Meds/Results Medications: Active Medications Generic Name Dose Route Start Last Admin Trade Name Freq PRN Reason Stop Dose Admin Dextrose 12.5 gm 10/17/24 21:26 Dextrose 50% 25 Gm/50 Ml Syringe IV PUSH PRN PRN Hypoglycemia Protocol Enoxaparin Sodium 30 mg 10/18/24 09:00 Enoxaparin 30 Mg/0.3 Ml Syringe SUB-Q DAILY JHONY Folic Acid 1 mg 10/24/24 09:00 10/26/24 10:13 Folic Acid 1 Mg Tablet FEED TUBE 1 mg QAM JHONY Administration Glucagon 1 mg 10/17/24 21:26 Glucagon For Inj 1 Mg Vial IM PRN PRN Hypoglycemia Protocol Glucose 15 gm 10/17/24 21:26 Glucose Oral Gel 15 Gm Of Glucse In 37.5 Gm Tube PO PRN PRN Hypoglycemia Protocol Dextrose 1,000 mls @ 100 mls/hr 10/17/24 21:26 Dextrose 5% 1,000 Ml IVPB PRN PRN Hypoglycemia Protocol Sodium Chloride 1,000 mls @ 75 mls/hr 10/22/24 20:40 10/26/24 06:08 Sodium Chloride 0.45% IV CONT 75 mls/hr .[id number] JHONY Administration Azithromycin 250 mg/ Sodium 250 mls @ 250 mls/hr 10/25/24 17:00 10/25/24 17:56 Chloride IVPB 250 mls/hr Q24H JHONY Administration Cefepime HCl 1 gm in 50 mls @ 100 mls/hr 10/25/24 18:00 10/26/24 10:14 Maxipime 1 Gm/Ns 50 Ml IVPB 100 mls/hr Q8H JHONY Administration Pantoprazole Sodium 40 mg 10/18/24 21:00 10/26/24 10:11 Pantoprazole Sodium Iv 40 Mg Vial IV PUSH 40 mg Q12HR JHONY Administration Thiamine HCl 100 mg 10/24/24 09:00 10/26/24 10:14 Thiamine Hcl 100 Mg Tablet FEED TUBE 100 mg QAM JHONY Administration Vancomycin HCl 125 mg 10/22/24 15:00 10/26/24 12:50 Vancomycin Oral 125 Mg/2.5 Ml Syrup FEED TUBE 11/01/24 12:01 125 mg Q6HR JHONY Administration Radiology Results: ITS Impressions Chest/Abdomen/Pelvis CT 10/17/24 10:46 IMPRESSION: No hollow or solid organ injury. No acute fractures. Head CT 10/19/24 09:19 Impression: No acute intracranial hemorrhage or suspicious mass effect. Inflammatory sinus disease. Face CT 10/19/24 09:39 IMPRESSION: 1. Extensive sinus disease with near complete opacification of the right maxillary sinus and dependently layering fluid in the bilateral sphenoid sinuses. Correlate clinically for acute sinusitis. 2. Dental and periodontal disease with periapical lucency surrounding the posterior most remaining right maxillary molar. Renal Ultrasound 10/19/24 09:48 IMPRESSION: No hydronephrosis or renal calculi. No parenchymal findings to suggest the presence of medical renal disease. Simple cysts within the right kidney, for which no further follow-up is needed. Abdomen X-Ray 10/19/24 11:15 IMPRESSION: Nasogastric tube in good position and ready for immediate use. Brain MRI 10/24/24 14:22 IMPRESSION: 1. Age-related changes the brain. No acute intracranial process. 2. Prominent sinus disease with fluid nearly filling the right maxillary sinus and layering dependently in the bilateral sphenoid sinuses. Correlate clinically for acute sinusitis. Chest X-Ray 10/25/24 13:47 Impression: 1: Right basilar airspace disease, atelectasis versus pneumonia. Elevated right diaphragm. Labs Labs: Laboratory Results - last 24 hr 10/18/24 10/25/24 10/25/24 11:18 18:02 22:31 WBC RBC Hgb Hct MCV MCH MCHC RDW Plt Count MPV Immature Gran % (Auto) Neut % (Auto) Lymph % (Auto) [place] % (Auto) Eos % (Auto) Baso % (Auto) Lymph # (Auto) [place] # (Auto) Eos # (Auto) Baso # (Auto) Abs Immat Gran (auto) Absolute Neuts (auto) Absolute Nucleated RBC Nucleated RBC % % Immature Plt Fraction Sodium Potassium Chloride Carbon Dioxide Anion Gap BUN Creatinine Estim Creat Clear Calc Estimated GFR Glucose POC Capillary Glucose 103 119 H Calcium Phosphorus Total Creatine Kinase Albumin Urine Color Urine Appearance Urine pH Ur Specific [place] Urine Protein Urine Glucose (UA) Urine Ketones Ur Blood (Man) Urine Nitrate Urine Bilirubin Urine Urobilinogen Ur Leukocyte Esterase Urine RBC Urine WBC Ur Squamous Epith Cells Urine Bacteria Urine Casts Ur Random Creatinine 90 Ur Random Chloride <20 L U Random Chloride/Creat See note 10/26/24 10/26/24 10/26/24 05:25 05:28 05:32 WBC 7.9 RBC 2.25 L Hgb 7.0 L Hct 22.3 L MCV 99.1 MCH 31.1 MCHC 31.4 L RDW 18.8 H Plt Count 115 L D MPV 13.7 H Immature Gran % (Auto) 0.5 Neut % (Auto) 74.7 H Lymph % (Auto) 11.9 L [place] % (Auto) 11.2 H Eos % (Auto) 1.4 Baso % (Auto) 0.3 Lymph # (Auto) 0.94 [place] # (Auto) 0.9 H Eos # (Auto) 0.1 Baso # (Auto) 0.0 Abs Immat Gran (auto) 0.04 H Absolute Neuts (auto) 5.9 Absolute Nucleated RBC 0.020 H Nucleated RBC % 0.3 H % Immature Plt Fraction 18.5 H Sodium 142 Potassium 4.1 Chloride 108 H Carbon Dioxide 27 Anion Gap 7 BUN 27 H Creatinine 0.94 Estim Creat Clear Calc 62 Estimated GFR > 60 Glucose 112 H POC Capillary Glucose 118 H Calcium 8.1 L Phosphorus 4.8 H Total Creatine Kinase 189 H Albumin 2.3 L Urine Color Yellow Urine Appearance Clear Urine pH 7.5 Ur Specific [place] 1.015 Urine Protein 1+ H Urine Glucose (UA) Negative Urine Ketones Negative Ur Blood (Man) Trace Urine Nitrate Negative Urine Bilirubin Negative Urine Urobilinogen 0.2 Ur Leukocyte Esterase Negative Urine RBC 3-5 H Urine WBC 0-5 Ur Squamous Epith Cells None seen Urine Bacteria None seen Urine Casts 0-2 Ur Random Creatinine Ur Random Chloride U Random Chloride/Creat 10/26/24 12:05 WBC RBC Hgb Hct MCV MCH MCHC RDW Plt Count MPV Immature Gran % (Auto) Neut % (Auto) Lymph % (Auto) [place] % (Auto) Eos % (Auto) Baso % (Auto) Lymph # (Auto) [place] # (Auto) Eos # (Auto) Baso # (Auto) Abs Immat Gran (auto) Absolute Neuts (auto) Absolute Nucleated RBC Nucleated RBC % % Immature Plt Fraction Sodium Potassium Chloride Carbon Dioxide Anion Gap BUN Creatinine Estim Creat Clear Calc Estimated GFR Glucose POC Capillary Glucose 102 Calcium Phosphorus Total Creatine Kinase Albumin Urine Color Urine Appearance Urine pH Ur Specific [place] Urine Protein Urine Glucose (UA) Urine Ketones Ur Blood (Man) Urine Nitrate Urine Bilirubin Urine Urobilinogen Ur Leukocyte Esterase Urine RBC Urine WBC Ur Squamous Epith Cells Urine Bacteria Urine Casts Ur Random Creatinine Ur Random Chloride U Random Chloride/Creat
[2024-10-26 14:00] VITALS: BP 126/75; PULSE 75; RESP 16; TEMP 36.3; O2SAT 100
[2024-10-26 15:09] LABS: Heparin Induced Platelet Antib Negative (Negative)
[2024-10-26] MEDS: AZITHROMYCIN IV 250 MG in SODIUM CHLORIDE 0.9% IV 250 ML IVPB (18:15)
[2024-10-26 22:00] VITALS: BP 144/71; PULSE 77; RESP 18; TEMP 36.4; O2SAT 100
[2024-10-26 22:10] VITALS: PULSE 81; O2SAT 97
[2024-10-27] MEDS: CEFEPIME 1 GM/NS 50 ML 1 GM/50 ML BAG IVPB ×3 (02:32→17:04)
[2024-10-27 05:43] LABS: Hematocrit 22.2 % (42.0-52.0); Hemoglobin 7.0 g/dL (14.0-18.0); Immature Granulocyte Percent A 0.6 % (0-0.5); Immature Platelet Fraction Pct 14.5 % (0.9-11.2); Lymphocytes Absolute Auto 0.92 K/mm3 (0.9-3.2); Mean Corpuscular HGB Conc 31.5 g/dl (32-36); Mean Corpuscular Hemoglobin 31.1 pg (26-34); Mean Corpuscular Volume 98.7 fl (80-100); Nucleated Red Blood Cells Absolute Auto 0.000 K/mm3 (0.0-0.012); Nucleated Red Blood Cells Perc 0.0 % (0.0-0.2); Platelet Count Result 178 k/mm3 (150-375); Red Blood Count 2.25 M/mm3 (4.6-6.20); White Blood Count 6.9 K/mm3 (4.5-10.0)
[2024-10-27 06:00] VITALS: BP 128/77; PULSE 74; RESP 18; TEMP 36.4; O2SAT 100
[2024-10-27] MEDS: VANCOMYCIN ORAL 125 MG/2.5 ML SYRUP FEED TUBE ×3 (06:07→17:06)
[2024-10-27 06:12] LABS: Alanine Aminotransferase 28 U/L (6-50); Albumin Level 2.4 g/dL (3.5-5.1); Alkaline Phosphatase 145 U/L (38-126); Anion Gap 8 mmol/L (4-12); Aspartate Amino Transferase 36 U/L (17-59); Bilirubin,Total 0.7 mg/dL (0.2-1.3); Blood Urea Nitrogen 24 mg/dL (9-20); Calcium 8.2 mg/dL (8.4-10.2); Carbon Dioxide 23 mmol/L (22-30); Chloride 110 mmol/L (98-107); Creatine Kinase 161 U/L (55-170); Estimated CRCL calculation 76 ml/min; Estimated Glomerular Filt Rate > 60; Glucose 111 mg/dL (65-110); Magnesium 1.5 mg/dL (1.6-2.3); Potassium 4.1 mmol/L (3.4-5.0); Sodium 141 mmol/L (137-145); Total Protein 5.5 g/dL (6.3-8.2)
[2024-10-27] MEDS: MAGNESIUM SULF 2 GM/WATER 50ML 2 GM/50 ML BAG IVPB (10:19)
[2024-10-27] MEDS: SODIUM CHLORIDE 0.45% 1,000 ML 75 ML IV CONT (10:19)
[2024-10-27] MEDS: THIAMINE HCL 100 MG TABLET FEED TUBE (10:20)
[2024-10-27] MEDS: PANTOPRAZOLE SODIUM IV 40 MG VIAL IV PUSH ×2 (10:20→20:55)
[2024-10-27] MEDS: FOLIC ACID 1 MG TABLET FEED TUBE (10:20)
[2024-10-27 10:30] VITALS: O2SAT 100
[2024-10-27 11:58] LABS: Soluble Transferrin Receptor. 1.13 mg/L (0.76-1.76)
--- NOTE | 2024-10-27 13:05 | P.PNIM_ITS ---
Progress Note: A&P Assessment and Plan (1) Shock: Code(s): R57.9 - Shock, unspecified Status: Acute Assessment and Plan: RESOLVED 10/17: EMS arrived at patient's house: he was found face down with, hypotensive with systolic in the 50s, patient given IV fluids in the ER, central line inserted, started on Levophed. CT head was negative. Chest x-ray with no focal infiltrate or effusion. CT chest abdomen pelvis with no acute findings. Face CT with extensive sinus disease with near complete opacification of the right maxillary sinus and dependently layering fluid in the bilateral sphenoid sinuses. Dental and periodontal disease with periapical lucency surrounding the posterior-most remaining right maxillary molar. -off Levophed since the morning of 10/18 -procalcitonin levels are at high -patient was started on cefepime and vancomycin which was discontinued since there was no nidus of infection -MRSA screen is negative, -10/17: Blood cultures negative-so far -no nidus of infection on either chest x-ray, CT chest abdomen and pelvis, UA was clear, -10/19: given low body temperature, elevated procalcitonin started on ceftriaxone empirically. Procalcitonin can also be raised in tissue injury -10/19: UA reflective of UTI, also given sinusitis on CT scan of the face, started patient on ceftriaxone since 10/19/2024. Urine culture not obtained. Will conclude 10/24/2019 Liquid stool. Could be tube feed related. C diff came back positive Started on vancomycin 10/23/2019 (2) Altered mental status: Qualifiers: Altered mental status type: disorientation Qualified Code(s): R41.0 - Disorientation, unspecified Code(s): R41.82 - Altered mental status, unspecified Status: Acute Assessment and Plan: Altered mental status is multifactorial could be related to hypovolemia, shock, hypotension, acute kidney injury, rhabdomyolysis -CT brain was negative for intracranial abnormalities -MRI cannot be performed as patient was in the [place] and may have sharpnel exposure according to his daughter -10/19: Repeat CT brain did not show any acute intracranial hemorrhage or suspicious mass effect, inflammatory sinus disease. -10/19: CT facial bones showed extensive sinus disease with near complete opacification of the right maxillary sinus and dependently layering fluid in the bilateral sphenoid sinuses. Dental and periodontal disease with periapical lucency surrounding the posterior most remaining right maxillary molar Despite improvement in metabolic issues he remains encephalopathic Will further evaluate with MRI brain and EEG. Neurology consultation Brain MRI in process EEG performed: No seizure activity noted. (3) Fall (on) (from) other stairs and steps, initial encounter: Code(s): W10.8XXA - Fall (on) (from) other stairs and steps, initial encounter Status: Acute Assessment and Plan: Patient was found on the ground face down unknown amount of time, unknown etiology -continue treat underlying cause -10/18: Echocardiogram showed EF of 60-65%, normal biventricular size and systolic function, no significant valvular abnormalities (4) Acute kidney injury: Code(s): N17.9 - Acute kidney failure, unspecified Status: Acute Assessment and Plan: Acute kidney injury likely related to hypotension, hypovolemia, shock, rhabdomyolysis -patient received 3 L IV fluid bolus in the ER -started on bicarb infusion -patient was hypernatremic on admission, -sodium levels trending down gradually currently on bicarb infusion per Nephrology -continue to monitor urine output, electrolytes and renal function -patient presented with creatinine of 3.0 (baseline 1.0 in October 2023 at [facility]) -urine lytes not reflective of prerenal picture, urine eosinophils are negative -CT scan of the abdomen and pelvis did not show any hydronephrosis -renal ultrasound: No hydronephrosis or renal calculi, no apparent, findings to suggest the presence of medical renal disease. Simple cyst within the right kidney -CK levels trending down on admission 5864 peaked to 8292. -appreciate Nephrology evaluation and recommendation Conjunctival chemosis noted. IV fluids stopped Already getting tube feeds at 55 cc an hour (5) Rhabdomyolysis: Qualifiers: Encounter type: initial encounter Rhabdomyolysis type: traumatic Qualified Code(s): T79.6XXA - Traumatic ischemia of muscle, initial encounter Code(s): M62.82 - Rhabdomyolysis Status: Acute Assessment and Plan: Rhabdomyolysis likely related to being down on the ground for unknown amount of time -patient has been given 3 L IV fluids in the ER plus 500 mL of LR bolus in the ICU on 10/18. Patient seems to be adequately fluid-resuscitated -continue IV fluids per Nephrology CK levels trending down on admission 5864 peaked to 8292. (6) Electrolyte imbalance: Code(s): E87.8 - Other disorders of electrolyte and fluid balance, not elsewhere classified Status: Acute Assessment and Plan: Magnesium repleted (7) Anemia: Code(s): D64.9 - Anemia, unspecified Status: Acute Assessment and Plan: Patient dropped his hemoglobin this morning to 6.2 from 9.1 on admission -10/18: status post 2 units of packed RBCs -stool occult is negative -vitamin B12 levels are normal, folic acid is low will substitute -iron panel looks normal -hemoglobin remained stable (8) Thrombocytopenia: Code(s): D69.6 - Thrombocytopenia, unspecified Status: Acute Assessment and Plan: Thrombocytopenia with platelet counts of 62 this morning, 91 on admission -10/18: status post 1 unit of platelets -INR 1.2 on admission -platelets remain low, continue to monitor Does have history of chronic alcohol abuse per family. No baseline available Concern for TTP. Hematology consult Will Also order hit panel Plan 69 y/o male was found after he fell under stairs by his family, patient had AMS was not able to provide details ROS or history, patient had CT was normal upon arrival, as well his MRI of Brain for any acute injury, patient. upon arrival patient hgb was 9.1 and dropped to 6.2 without and GI bleed, patient was seen by customer experience consultant and suspect anemia 2/2 renal dysfunction, and work up is in progress, also on admission patient had elevated CK levels of 5864 most likely 2/2 fall and don't know how long patient was on the ground after fall however his CK levels today are 189 and his ALEJANDRO has improved and patient is seen by threading machine feeder automatic, patient had dysphagia on NG tube feeding consulted GI for PEG however patient platelets were low in 37 today is 178, suspect most likely 2/2 alcohol abuse, seen by customer experience consultant and further work up is in progress, patient lungs sounded congested CXR concerning for pneumonia being treated with Cefepime and Zithromax, blood culture no growth so far, and follow up. patient is found to C diff diarrhea his were forming but tody his stools liquidity, will CPM and monitor. DVT prophylaxis: SCDs, no chemoprophylaxis due to thrombocytopenia Stress ulcer prophylaxis: Protonix IV q.12 hours Nutrition: NG tube placed on 10/19: Started on tube feeds and tolerating Code Status: Full code Subjective Date/time seen: 10/27/24 13:05 Interval history: 69 y/o male was found after he fell under stairs by his family, patient had AMS was not able to provide details ROS or history, patient had CT was normal upon arrival, as well his MRI of Brain for any acute injury, patient. upon arrival patient hgb was 9.1 and dropped to 6.2 without and GI bleed, patient was seen by customer experience consultant and suspect anemia 2/2 renal dysfunction, and work up is in progress, also on admission patient had elevated CK levels of 5864 most likely 2 /2 fall and don't know how long patient was on the ground after fall however his CK levels today are 189 and his ALEJANDRO has improved and patient is seen by threading machine feeder automatic, patient had dysphagia on NG tube feeding consulted GI for PEG however patient platelets were low in 37 today is 178, suspect most likely 2/2 alcohol abuse, seen by customer experience consultant and further work up is in progress, patient lungs sounded congested CXR concerning for pneumonia being treated with Cefepime and Zithromax, blood culture no growth so far, and follow up. patient is found to C diff diarrhea his were forming but tody his stools liquidity, will CPM and monitor. Review of Systems Review of Systems: ROS unobtainable: Yes unobtainable due to medical condition and unobtainable due to mental status Exam Narrative: Patient is comfortable, NAD HEENT: eyes are clear and none icteric, NG tube in place LUNGS:CTA HEART: RR S1S2 ABD: BS+, Soft and nontender Lower extremities: no edema SKIN: nonjaundiced Neuro: grossly intact. Objective Data Vital Signs Vital Signs: Vital Signs - 24 hr 10/26/24 14:00 10/26/24 20:00 10/26/24 22:00 Temperature 36.3 C L 36.4 C L Pulse Rate 75 77 Respiratory Rate 16 18 Blood Pressure 126/75 144/71 H Pulse Oximetry 100 100 Oxygen Delivery Room Air Fraction of Inspired Oxygen 21 10/26/24 22:10 10/27/24 06:00 10/27/24 10:30 Temperature 36.4 C L Pulse Rate 81 74 Respiratory Rate 18 Blood Pressure 128/77 Pulse Oximetry 97 100 100 Oxygen Delivery Room Air Room Air Fraction of Inspired Oxygen 21 Intake/Output Intake/Output: Intake & Output 10/24/24 10/25/24 10/26/24 10/27/24 23:59 23:59 23:59 23:59 Intake Total 3685 4322.2 2868 Output Total 965 603 558 8564 Balance -965 2835 3622.2 -132 Meds/Results Medications: Active Medications Generic Name Dose Route Start Last Admin Trade Name Freq PRN Reason Stop Dose Admin Dextrose 12.5 gm 10/17/24 21:26 Dextrose 50% 25 Gm/50 Ml Syringe IV PUSH PRN PRN Hypoglycemia Protocol Enoxaparin Sodium 30 mg 10/18/24 09:00 Enoxaparin 30 Mg/0.3 Ml Syringe SUB-Q DAILY JHONY Folic Acid 1 mg 10/24/24 09:00 10/27/24 10:20 Folic Acid 1 Mg Tablet FEED TUBE 1 mg QAM JHONY Administration Glucagon 1 mg 10/17/24 21:26 Glucagon For Inj 1 Mg Vial IM PRN PRN Hypoglycemia Protocol Glucose 15 gm 10/17/24 21:26 Glucose Oral Gel 15 Gm Of Glucse In 37.5 Gm Tube PO PRN PRN Hypoglycemia Protocol Dextrose 1,000 mls @ 100 mls/hr 10/17/24 21:26 Dextrose 5% 1,000 Ml IVPB PRN PRN Hypoglycemia Protocol Sodium Chloride 1,000 mls @ 75 mls/hr 10/22/24 20:40 10/27/24 10:19 Sodium Chloride 0.45% IV CONT 75 mls/hr .[id number] JHONY Administration Azithromycin 250 mg/ Sodium 250 mls @ 250 mls/hr 10/25/24 17:00 10/26/24 18:15 Chloride IVPB 250 mls/hr Q24H JHONY Administration Cefepime HCl 1 gm in 50 mls @ 100 mls/hr 10/25/24 18:00 10/27/24 10:19 Maxipime 1 Gm/Ns 50 Ml IVPB 100 mls/hr Q8H JHONY Administration Pantoprazole Sodium 40 mg 10/18/24 21:00 10/27/24 10:20 Pantoprazole Sodium Iv 40 Mg Vial IV PUSH 40 mg Q12HR JHONY Administration Thiamine HCl 100 mg 10/24/24 09:00 10/27/24 10:20 Thiamine Hcl 100 Mg Tablet FEED TUBE 100 mg QAM JHONY Administration Vancomycin HCl 125 mg 10/22/24 15:00 10/27/24 11:46 Vancomycin Oral 125 Mg/2.5 Ml Syrup FEED TUBE 11/01/24 12:01 125 mg Q6HR JHONY Administration Radiology Results: ITS Impressions Chest/Abdomen/Pelvis CT 10/17/24 10:46 IMPRESSION: No hollow or solid organ injury. No acute fractures. Head CT 10/19/24 09:19 Impression: No acute intracranial hemorrhage or suspicious mass effect. Inflammatory sinus disease. Face CT 10/19/24 09:39 IMPRESSION: 1. Extensive sinus disease with near complete opacification of the right maxillary sinus and dependently layering fluid in the bilateral sphenoid sinuses. Correlate clinically for acute sinusitis. 2. Dental and periodontal disease with periapical lucency surrounding the posterior most remaining right maxillary molar. Renal Ultrasound 10/19/24 09:48 IMPRESSION: No hydronephrosis or renal calculi. No parenchymal findings to suggest the presence of medical renal disease. Simple cysts within the right kidney, for which no further follow-up is needed. Abdomen X-Ray 10/19/24 11:15 IMPRESSION: Nasogastric tube in good position and ready for immediate use. Brain MRI 10/24/24 14:22 IMPRESSION: 1. Age-related changes the brain. No acute intracranial process. 2. Prominent sinus disease with fluid nearly filling the right maxillary sinus and layering dependently in the bilateral sphenoid sinuses. Correlate clinically for acute sinusitis. Chest X-Ray 10/25/24 13:47 Impression: 1: Right basilar airspace disease, atelectasis versus pneumonia. Elevated right diaphragm. Labs Labs: Laboratory Results - last 24 hr 10/23/24 10/23/24 10/26/24 14:38 20:17 18:04 WBC RBC Hgb Hct MCV MCH MCHC RDW Plt Count MPV Immature Gran % (Auto) Neut % (Auto) Lymph % (Auto) [place] % (Auto) Eos % (Auto) Baso % (Auto) Lymph # (Auto) [place] # (Auto) Eos # (Auto) Baso # (Auto) Abs Immat Gran (auto) Absolute Neuts (auto) Absolute Nucleated RBC Nucleated RBC % % Immature Plt Fraction Sodium Potassium Chloride Carbon Dioxide Anion Gap BUN Creatinine Estim Creat Clear Calc Estimated GFR Glucose POC Capillary Glucose 94 Calcium Magnesium Priscilla Transferrin Receptr 1.13 Total Bilirubin AST ALT Alkaline Phosphatase Total Creatine Kinase Total Protein Albumin Heparin-induced Plt Ab Negative Hep-Induced Plt Ab Cmmt 0.104 10/27/24 10/27/24 10/27/24 00:02 05:14 06:06 WBC 6.9 RBC 2.25 L Hgb 7.0 L Hct 22.2 L MCV 98.7 MCH 31.1 MCHC 31.5 L RDW 19.1 H Plt Count 178 D MPV 13.2 H Immature Gran % (Auto) 0.6 H Neut % (Auto) 71.9 Lymph % (Auto) 13.3 L [place] % (Auto) 12.0 H Eos % (Auto) 1.9 Baso % (Auto) 0.3 Lymph # (Auto) 0.92 [place] # (Auto) 0.8 H Eos # (Auto) 0.1 Baso # (Auto) 0.0 Abs Immat Gran (auto) 0.04 H Absolute Neuts (auto) 5.0 Absolute Nucleated RBC 0.000 Nucleated RBC % 0.0 % Immature Plt Fraction 14.5 H Sodium 141 Potassium 4.1 Chloride 110 H Carbon Dioxide 23 Anion Gap 8 BUN 24 H Creatinine 0.86 Estim Creat Clear Calc 76 Estimated GFR > 60 Glucose 111 H POC Capillary Glucose 97 106 H Calcium 8.2 L Magnesium 1.5 L Priscilla Transferrin Receptr Total Bilirubin 0.7 AST 36 ALT 28 Alkaline Phosphatase 145 H Total Creatine Kinase 161 Total Protein 5.5 L Albumin 2.4 L Heparin-induced Plt Ab Hep-Induced Plt Ab Cmmt 10/27/24 11:48 WBC RBC Hgb Hct MCV MCH MCHC RDW Plt Count MPV Immature Gran % (Auto) Neut % (Auto) Lymph % (Auto) [place] % (Auto) Eos % (Auto) Baso % (Auto) Lymph # (Auto) [place] # (Auto) Eos # (Auto) Baso # (Auto) Abs Immat Gran (auto) Absolute Neuts (auto) Absolute Nucleated RBC Nucleated RBC % % Immature Plt Fraction Sodium Potassium Chloride Carbon Dioxide Anion Gap BUN Creatinine Estim Creat Clear Calc Estimated GFR Glucose POC Capillary Glucose 109 H Calcium Magnesium Priscilla Transferrin Receptr Total Bilirubin AST ALT Alkaline Phosphatase Total Creatine Kinase Total Protein Albumin Heparin-induced Plt Ab Hep-Induced Plt Ab Cmmt Quality VTE Prophylaxis VTE prophylaxis: mechanical ordered
--- NOTE | 2024-10-27 13:50 | PCSTNOTE ---
Attempted ST session but patient sleeping and unable to arouse for session.
[2024-10-27 14:00] VITALS: BP 134/68; PULSE 76; RESP 18; TEMP 36.8; O2SAT 100
[2024-10-27] MEDS: AZITHROMYCIN IV 250 MG in SODIUM CHLORIDE 0.9% IV 250 ML IVPB (16:45)
[2024-10-27 20:00] VITALS: PULSE 76; RESP 18; O2SAT 100
[2024-10-27 22:15] VITALS: BP 116/67; PULSE 80; RESP 16; TEMP 36.6; O2SAT 100
[2024-10-28] VITALS (10 sets, daily range): BP systolic 127–135; BP diastolic 67–84; PULSE 77–81; RESP 16–20; TEMP 36.2–36.8; O2SAT 93–100
[2024-10-28] MEDS: VANCOMYCIN ORAL 125 MG/2.5 ML SYRUP FEED TUBE ×5 (00:50→23:15)
[2024-10-28] MEDS: CEFEPIME 1 GM/NS 50 ML 1 GM/50 ML BAG IVPB ×3 (00:56→17:09)
[2024-10-28 05:02] LABS: Hematocrit 21.5 % (42.0-52.0); Immature Granulocyte Percent A 4.4 % (0-0.5); Lymphocytes Absolute Auto 1.09 K/mm3 (0.9-3.2); Mean Corpuscular HGB Conc 31.2 g/dl (32-36); Mean Corpuscular Hemoglobin 30.3 pg (26-34); Mean Corpuscular Volume 97.3 fl (80-100); Nucleated Red Blood Cells Absolute Auto 0.000 K/mm3 (0.0-0.012); Nucleated Red Blood Cells Perc 0.0 % (0.0-0.2); Platelet Count Result 234 k/mm3 (150-375); Red Blood Count 2.21 M/mm3 (4.6-6.20); White Blood Count 5.9 K/mm3 (4.5-10.0)
[2024-10-28] MEDS: SODIUM CHLORIDE 0.45% 1,000 ML 75 ML IV CONT ×2 (05:08→17:47)
[2024-10-28 05:27] LABS: Alanine Aminotransferase 24 U/L (6-50); Albumin Level 2.3 g/dL (3.5-5.1); Alkaline Phosphatase 152 U/L (38-126); Anion Gap 7 mmol/L (4-12); Aspartate Amino Transferase 40 U/L (17-59); Bilirubin,Total 0.6 mg/dL (0.2-1.3); Blood Urea Nitrogen 21 mg/dL (9-20); Calcium 8.2 mg/dL (8.4-10.2); Carbon Dioxide 23 mmol/L (22-30); Chloride 109 mmol/L (98-107); Creatine Kinase 84 U/L (55-170); Estimated CRCL calculation 75 ml/min; Estimated Glomerular Filt Rate > 60; Glucose 98 mg/dL (65-110); Magnesium 1.6 mg/dL (1.6-2.3); Potassium 4.4 mmol/L (3.4-5.0); Sodium 139 mmol/L (137-145); Total Protein 5.4 g/dL (6.3-8.2)
[2024-10-28 05:43] LABS: Hemoglobin 6.7 g/dL (14.0-18.0)
[2024-10-28 05:46] LABS: Anisocytosis 2+; Hypochromasia 2+; Microcytosis 2+ (NORMAL); Schistocytes None Seen; Target Cells 1+
[2024-10-28] MEDS: DEXTROSE 50% 25 GM/50 ML SYRINGE IV PUSH (06:22)
[2024-10-28] MEDS: PANTOPRAZOLE SODIUM IV 40 MG VIAL IV PUSH ×2 (08:54→20:47)
[2024-10-28] MEDS: FOLIC ACID 1 MG TABLET FEED TUBE (08:56)
[2024-10-28] MEDS: THIAMINE HCL 100 MG TABLET FEED TUBE (08:56)
[2024-10-28 09:28] LABS: IFOB Positive Control Positive; Immunochemical Fecal Occult Bl Positive (N)
--- NOTE | 2024-10-28 09:39 | PM.IMPN ---
Progress Note: A&P Assessment and Plan (1) Shock: Code(s): R57.9 - Shock, unspecified Status: Acute Assessment and Plan: RESOLVED 10/17: EMS arrived at patient's house: he was found face down with, hypotensive with systolic in the 50s, patient given IV fluids in the ER, central line inserted, started on Levophed. CT head was negative. Chest x-ray with no focal infiltrate or effusion. CT chest abdomen pelvis with no acute findings. Face CT with extensive sinus disease with near complete opacification of the right maxillary sinus and dependently layering fluid in the bilateral sphenoid sinuses. Dental and periodontal disease with periapical lucency surrounding the posterior-most remaining right maxillary molar. -off Levophed since the morning of 10/18 -procalcitonin levels are at high -patient was started on cefepime and vancomycin which was discontinued since there was no nidus of infection -MRSA screen is negative, -10/17: Blood cultures negative-so far -no nidus of infection on either chest x-ray, CT chest abdomen and pelvis, UA was clear, -10/19: given low body temperature, elevated procalcitonin started on ceftriaxone empirically. Procalcitonin can also be raised in tissue injury -10/19: UA reflective of UTI, also given sinusitis on CT scan of the face, started patient on ceftriaxone since 10/19/2024. Urine culture not obtained. Will conclude 10/24/2019 Liquid stool. Could be tube feed related. C diff came back positive Started on vancomycin 10/23/2019 (2) Altered mental status: Qualifiers: Altered mental status type: disorientation Qualified Code(s): R41.0 - Disorientation, unspecified Code(s): R41.82 - Altered mental status, unspecified Status: Acute Assessment and Plan: Altered mental status is multifactorial could be related to hypovolemia, shock, hypotension, acute kidney injury, rhabdomyolysis -CT brain was negative for intracranial abnormalities -MRI cannot be performed as patient was in the [place] and may have sharpnel exposure according to his daughter -10/19: Repeat CT brain did not show any acute intracranial hemorrhage or suspicious mass effect, inflammatory sinus disease. -10/19: CT facial bones showed extensive sinus disease with near complete opacification of the right maxillary sinus and dependently layering fluid in the bilateral sphenoid sinuses. Dental and periodontal disease with periapical lucency surrounding the posterior most remaining right maxillary molar Despite improvement in metabolic issues he remains encephalopathic Will further evaluate with MRI brain and EEG. Neurology consultation Brain MRI in process EEG performed: No seizure activity noted. (3) Fall (on) (from) other stairs and steps, initial encounter: Code(s): W10.8XXA - Fall (on) (from) other stairs and steps, initial encounter Status: Acute Assessment and Plan: Patient was found on the ground face down unknown amount of time, unknown etiology -continue treat underlying cause -10/18: Echocardiogram showed EF of 60-65%, normal biventricular size and systolic function, no significant valvular abnormalities (4) Acute kidney injury: Code(s): N17.9 - Acute kidney failure, unspecified Status: Acute Assessment and Plan: Acute kidney injury likely related to hypotension, hypovolemia, shock, rhabdomyolysis -patient received 3 L IV fluid bolus in the ER -started on bicarb infusion -patient was hypernatremic on admission, -sodium levels trending down gradually currently on bicarb infusion per Nephrology -continue to monitor urine output, electrolytes and renal function -patient presented with creatinine of 3.0 (baseline 1.0 in October 2023 at [facility]) -urine lytes not reflective of prerenal picture, urine eosinophils are negative -CT scan of the abdomen and pelvis did not show any hydronephrosis -renal ultrasound: No hydronephrosis or renal calculi, no apparent, findings to suggest the presence of medical renal disease. Simple cyst within the right kidney -CK levels trending down on admission 5864 peaked to 8292. -appreciate Nephrology evaluation and recommendation Conjunctival chemosis noted. IV fluids stopped Already getting tube feeds at 55 cc an hour (5) Rhabdomyolysis: Qualifiers: Encounter type: initial encounter Rhabdomyolysis type: traumatic Qualified Code(s): T79.6XXA - Traumatic ischemia of muscle, initial encounter Code(s): M62.82 - Rhabdomyolysis Status: Acute Assessment and Plan: Rhabdomyolysis likely related to being down on the ground for unknown amount of time -patient has been given 3 L IV fluids in the ER plus 500 mL of LR bolus in the ICU on 10/18. Patient seems to be adequately fluid-resuscitated -continue IV fluids per Nephrology CK levels trending down on admission 5864 peaked to 8292. (6) Electrolyte imbalance: Code(s): E87.8 - Other disorders of electrolyte and fluid balance, not elsewhere classified Status: Acute Assessment and Plan: Magnesium repleted (7) Anemia: Code(s): D64.9 - Anemia, unspecified Status: Acute Assessment and Plan: Patient dropped his hemoglobin this morning to 6.2 from 9.1 on admission -10/18: status post 2 units of packed RBCs -stool occult is negative -vitamin B12 levels are normal, folic acid is low will substitute -iron panel looks normal -hemoglobin remained stable (8) Thrombocytopenia: Code(s): D69.6 - Thrombocytopenia, unspecified Status: Acute Assessment and Plan: Thrombocytopenia with platelet counts of 62 this morning, 91 on admission -10/18: status post 1 unit of platelets -INR 1.2 on admission -platelets remain low, continue to monitor Does have history of chronic alcohol abuse per family. No baseline available Concern for TTP. Hematology consult Will Also order hit panel Plan 69 y/o male was found after he fell under stairs by his family, patient had AMS was not able to provide details ROS or history, patient had CT was normal upon arrival, as well his MRI of Brain for any acute injury, patient. upon arrival patient hgb was 9.1 and dropped to 6.2 without and GI bleed, patient was seen by hazardous waste technician and suspect anemia 2/2 renal dysfunction, and work up is in progress, also on admission patient had elevated CK levels of 5864 most likely 2/2 fall and don't know how long patient was on the ground after fall however his CK levels today are 189 and his ALEJANDRO has improved and patient is seen by sales support consultant, patient had dysphagia on NG tube feeding consulted GI for PEG however patient platelets were low in 37 today is 234 suspect most likely 2/2 alcohol abuse, seen by hazardous waste technician and further work up is in progress, patient lungs sounded congested CXR concerning for pneumonia being treated with Cefepime and Zithromax, blood culture no growth so far, and follow up. patient is found to C diff diarrhea his stool were forming but today his stools liquidity, patient hgb drop to 6.7 today there is no obvious bleeding but stool hemoccult is positive, will consult GI for further recommendation, patient does not provide much ROS, and difficulty to understand speech, will CT of head and follow up. DVT prophylaxis: SCDs, no chemoprophylaxis due to thrombocytopenia Stress ulcer prophylaxis: Protonix IV q.12 hours Nutrition: NG tube placed on 10/19: Started on tube feeds and tolerating Code Status: Full code Subjective Date/time seen: 10/28/24 09:39 Interval history: 69 y/o male was found after he fell under stairs by his family, patient had AMS was not able to provide details ROS or history, patient had CT was normal upon arrival, as well his MRI of Brain for any acute injury, patient. upon arrival patient hgb was 9.1 and dropped to 6.2 without and GI bleed, patient was seen by hazardous waste technician and suspect anemia 2/2 renal dysfunction, and work up is in progress, also on admission patient had elevated CK levels of 5864 most likely 2/2 fall and don't know how long patient was on the ground after fall however his CK levels today are 189 and his ALEJANDRO has improved and patient is seen by sales support consultant, patient had dysphagia on NG tube feeding consulted GI for PEG however patient platelets were low in 37 today is 234 suspect most likely 2/2 alcohol abuse, seen by hazardous waste technician and further work up is in progress, patient lungs sounded congested CXR concerning for pneumonia being treated with Cefepime and Zithromax, blood culture no growth so far, and follow up. patient is found to C diff diarrhea his stool were forming but today his stools liquidity, patient hgb drop to 6.7 today there is no obvious bleeding but stool hemoccult is positive, will consult GI for further recommendation, patient does not provide much ROS, and difficulty to understand speech, will CT of head and follow up. Review of Systems Review of Systems: ROS unobtainable: Yes unobtainable due to mental status Exam Narrative: Patient is comfortable, NAD HEENT: eyes are clear and none icteric, NG tube in place LUNGS:CTA HEART: RR S1S2 ABD: BS+, Soft and nontender Lower extremities: no edema SKIN: nonjaundiced Neuro: grossly intact. Objective Data Vital Signs Vital Signs: Vital Signs - 24 hr 10/27/24 10:30 10/27/24 14:00 10/27/24 20:00 Temperature 36.8 C Pulse Rate 76 76 Respiratory Rate 18 18 Blood Pressure 134/68 Pulse Oximetry 100 100 100 Oxygen Delivery Room Air Room Air Fraction of Inspired Oxygen 21 10/27/24 22:15 10/28/24 06:03 10/28/24 08:49 Temperature 36.6 C 36.4 C 36.2 C L Pulse Rate 80 81 78 Respiratory Rate 16 16 20 Blood Pressure 116/67 127/70 134/71 Pulse Oximetry 100 93 100 Oxygen Delivery Fraction of Inspired Oxygen Intake/Output Intake/Output: Intake & Output 10/25/24 10/26/24 10/27/24 10/28/24 23:59 23:59 23:59 23:59 Intake Total 3685 4572.2 3968 1682 Output Total 241 724 7475 Balance 2835 3872.2 -82 1682 Meds/Results Medications: Active Medications Generic Name Dose Route Start Last Admin Trade Name Freq PRN Reason Stop Dose Admin Dextrose 12.5 gm 10/17/24 21:26 10/28/24 06:22 Dextrose 50% 25 Gm/50 Ml Syringe IV PUSH 12.5 gm PRN PRN Administration Hypoglycemia Protocol Enoxaparin Sodium 30 mg 10/18/24 09:00 Enoxaparin 30 Mg/0.3 Ml Syringe SUB-Q DAILY JHONY Folic Acid 1 mg 10/24/24 09:00 10/28/24 08:56 Folic Acid 1 Mg Tablet FEED TUBE 1 mg QAM JHONY Administration Glucagon 1 mg 10/17/24 21:26 Glucagon For Inj 1 Mg Vial IM PRN PRN Hypoglycemia Protocol Glucose 15 gm 10/17/24 21:26 Glucose Oral Gel 15 Gm Of Glucse In 37.5 Gm Tube PO PRN PRN Hypoglycemia Protocol Dextrose 1,000 mls @ 100 mls/hr 10/17/24 21:26 Dextrose 5% 1,000 Ml IVPB PRN PRN Hypoglycemia Protocol Sodium Chloride 1,000 mls @ 75 mls/hr 10/22/24 20:40 10/28/24 05:08 Sodium Chloride 0.45% IV CONT 75 mls/hr .[id number] JHONY Administration Azithromycin 250 mg/ Sodium 250 mls @ 250 mls/hr 10/25/24 17:00 10/27/24 16:45 Chloride IVPB 250 mls/hr Q24H JHONY Administration Cefepime HCl 1 gm in 50 mls @ 100 mls/hr 10/25/24 18:00 10/28/24 09:03 Maxipime 1 Gm/Ns 50 Ml IVPB 100 mls/hr Q8H JHONY Administration Sodium Chloride 250 mls @ 30 mls/hr 10/28/24 06:27 Normal Saline Iv IV CONT 10/28/24 14:46 .Q8H20M STA Pantoprazole Sodium 40 mg 10/18/24 21:00 10/28/24 08:54 Pantoprazole Sodium Iv 40 Mg Vial IV PUSH 40 mg Q12HR JHONY Administration Thiamine HCl 100 mg 10/24/24 09:00 10/28/24 08:56 Thiamine Hcl 100 Mg Tablet FEED TUBE 100 mg QAM JHONY Administration Vancomycin HCl 125 mg 10/22/24 15:00 10/28/24 05:30 Vancomycin Oral 125 Mg/2.5 Ml Syrup FEED TUBE 11/01/24 12:01 125 mg Q6HR JHONY Administration Radiology Results: ITS Impressions Chest/Abdomen/Pelvis CT 10/17/24 10:46 IMPRESSION: No hollow or solid organ injury. No acute fractures. Head CT 10/19/24 09:19 Impression: No acute intracranial hemorrhage or suspicious mass effect. Inflammatory sinus disease. Face CT 10/19/24 09:39 IMPRESSION: 1. Extensive sinus disease with near complete opacification of the right maxillary sinus and dependently layering fluid in the bilateral sphenoid sinuses. Correlate clinically for acute sinusitis. 2. Dental and periodontal disease with periapical lucency surrounding the posterior most remaining right maxillary molar. Renal Ultrasound 10/19/24 09:48 IMPRESSION: No hydronephrosis or renal calculi. No parenchymal findings to suggest the presence of medical renal disease. Simple cysts within the right kidney, for which no further follow-up is needed. Abdomen X-Ray 10/19/24 11:15 IMPRESSION: Nasogastric tube in good position and ready for immediate use. Brain MRI 10/24/24 14:22 IMPRESSION: 1. Age-related changes the brain. No acute intracranial process. 2. Prominent sinus disease with fluid nearly filling the right maxillary sinus and layering dependently in the bilateral sphenoid sinuses. Correlate clinically for acute sinusitis. Chest X-Ray 10/25/24 13:47 Impression: 1: Right basilar airspace disease, atelectasis versus pneumonia. Elevated right diaphragm. Labs Labs: Laboratory Results - last 24 hr 10/23/24 10/27/24 10/27/24 20:17 11:48 18:13 WBC RBC Hgb Hct MCV MCH MCHC RDW Plt Count MPV Immature Gran % (Auto) Neut % (Auto) Lymph % (Auto) Deuel % (Auto) Eos % (Auto) Baso % (Auto) Lymph # (Auto) Deuel # (Auto) Eos # (Auto) Baso # (Auto) Abs Immat Gran (auto) Absolute Neuts (auto) Absolute Nucleated RBC Band Neutrophils % Nucleated RBC % Platelet Estimate Hypochromasia Anisocytosis Microcytosis Target Cells Schistocytes Sodium Potassium Chloride Carbon Dioxide Anion Gap BUN Creatinine Estim Creat Clear Calc Estimated GFR Glucose POC Capillary Glucose 109 H 95 Calcium Magnesium Priscilla Transferrin Receptr 1.13 Total Bilirubin AST ALT Alkaline Phosphatase Total Creatine Kinase Total Protein Albumin Stl Occult Blood (IFOB) Blood Type Antibody Screen Crossmatch 10/28/24 10/28/24 10/28/24 00:26 04:40 06:08 WBC 5.9 RBC 2.21 L Hgb 6.7 L* Hct 21.5 L MCV 97.3 MCH 30.3 MCHC 31.2 L RDW 18.9 H Plt Count 234 MPV 11.8 H Immature Gran % (Auto) 4.4 H Neut % (Auto) 58.8 Lymph % (Auto) 18.5 Deuel % (Auto) 15.4 H Eos % (Auto) 2.7 Baso % (Auto) 0.2 Lymph # (Auto) 1.09 Deuel # (Auto) 0.9 H Eos # (Auto) 0.2 Baso # (Auto) 0.0 Abs Immat Gran (auto) 0.26 H Absolute Neuts (auto) 3.5 Absolute Nucleated RBC 0.000 Band Neutrophils % Not Reportable Nucleated RBC % 0.0 Platelet Estimate Adequate Hypochromasia 2+ Anisocytosis 2+ Microcytosis 2+ Target Cells 1+ Schistocytes None seen Sodium 139 Potassium 4.4 Chloride 109 H Carbon Dioxide 23 Anion Gap 7 BUN 21 H Creatinine 0.88 Estim Creat Clear Calc 75 Estimated GFR > 60 Glucose 98 POC Capillary Glucose 104 71 Calcium 8.2 L Magnesium 1.6 Priscilla Transferrin Receptr Total Bilirubin 0.6 AST 40 ALT 24 Alkaline Phosphatase 152 H Total Creatine Kinase 84 Total Protein 5.4 L Albumin 2.3 L Stl Occult Blood (IFOB) Blood Type Antibody Screen Crossmatch 10/28/24 10/28/24 10/28/24 06:36 06:47 09:16 WBC RBC Hgb Hct MCV MCH MCHC RDW Plt Count MPV Immature Gran % (Auto) Neut % (Auto) Lymph % (Auto) Deuel % (Auto) Eos % (Auto) Baso % (Auto) Lymph # (Auto) Deuel # (Auto) Eos # (Auto) Baso # (Auto) Abs Immat Gran (auto) Absolute Neuts (auto) Absolute Nucleated RBC Band Neutrophils % Nucleated RBC % Platelet Estimate Hypochromasia Anisocytosis Microcytosis Target Cells Schistocytes Sodium Potassium Chloride Carbon Dioxide Anion Gap BUN Creatinine Estim Creat Clear Calc Estimated GFR Glucose POC Capillary Glucose 104 Calcium Magnesium Priscilla Transferrin Receptr Total Bilirubin AST ALT Alkaline Phosphatase Total Creatine Kinase Total Protein Albumin Stl Occult Blood (IFOB) Positive H Blood Type B Negative Antibody Screen Negative Crossmatch See Detail
[2024-10-28] MEDS: SODIUM CHLORIDE 0.9% IV 250 ML 30 ML IV CONT (10:01)
--- NOTE | 2024-10-28 10:48 | WPDGICN ---
Assessment and Plan Assessment and plan (1) Anemia: Code(s): D64.9 - Anemia, unspecified Status: Acute Assessment and Plan: this patient's anemia is multifactorial. While he has a borderline low iron saturation (13% on October 23), a significant contributing factor is likely his critical status, which can sometimes lead to a daily hemoglobin drop of up to 0.5 g/dL. His possible septic status, given the extensive sinusitis, also plays a role, and he is currently receiving appropriate antibiotic coverage for this. However, there are still unresolved issues to explain his severely altered mental status. Neurology evaluation is still awaited. Beware that at some point it was mentioned that he may have shrapnel in his body so MRI might be contraindicated. Regarding the heme-positive stool, we understand this finding. However, in critically ill patients with multiple contributing factors to anemia, a heme-positive stool result is often less informative than in stable patients where it is normally used as a screening tool. Given the absence of overt signs of gastrointestinal bleeding at this time, we do not believe he is currently a candidate for interventional or endoscopic procedures from our service. We recommend focusing on continued critical care support. Should his mental status improve and he stabilize enough to tolerate elective procedures, we would then consider endoscopy and colonoscopy to further investigate potential gastrointestinal blood loss. GI Consult Note Consult date/time: 10/28/24 10:48 Reason for consult: anemia + Heme (+) stools HPI: Tip Calvo is a 69 year old male admitted on October 17, 2024, after being found face down at home by window and siding craftsman, who noted he was hypotensive. Upon arrival at the emergency room, he presented with altered mental status, oriented only to person, with elevated CPK and a creatinine of 3.0. His EKG showed sinus bradycardia. He was initially started on cefepime and vancomycin, but these were later discontinued due to a lack of clear indications of sepsis. A CT of the abdomen revealed no infectious source, perforation, or free fluid. On October 24, 2024, our service was consulted for possible PEG placement. However, the procedure was deemed contraindicated due to a platelet count of 34. There is also a question of past alcohol abuse. During his hospitalization, he developed a positive C difficile infection. A CT scan of the facial bones showed extensive sinus disease, with near-complete opacification of the right maxillary sinus and fluid in both sphenoid sinuses. He is currently receiving intravenous azithromycin and cefepime, along with oral vancomycin. The reason for this consultation is a concerning trend of low hemoglobin. His hemoglobin levels were 8 on October 22, 8.5 on October 26, and 6.7 today. Additionally, his stool tested heme-positive, in the abscence of hematemesis, melena or rectal bleeding. His mental status is still unchanged from baseline, requiring nasogastric feeding. Review of Systems Review of Systems: All systems reviewed & are unremarkable except as noted in HPI and below PMFSH Past Medical History Medical History (Updated 10/28/24 @ 10:55 by Oren Bojorquez MD) Alcohol abuse Acute encephalopathy Cancer Gout Social History Social History Smoking packs per day: 0.3 Smoking cigarettes per day: 6.0 Smoking status: Former smoker Additional smoking assessment comments: unknown when quit Spiritual care concerns: No Meds Home Medications and Allergies Home Medications ?Medication ?Instructions ?Recorded ?Confirmed ?Type allopurinol 100 mg tablet 100 mg PO DAILY 10/18/24 10/18/24 History amlodipine 10 mg tablet 10 mg PO DAILY 10/18/24 10/18/24 History aspirin 81 mg tablet,delayed 81 mg PO DAILY 10/18/24 10/18/24 History release carvedilol 12.5 mg tablet 12.5 mg PO BID 10/18/24 10/18/24 History rosuvastatin 10 mg tablet 10 mg PO DAILY 10/18/24 10/18/24 History Allergies Allergy/AdvReac Type Severity Reaction Status Date / Time lisinopril Allergy Severe angioedema Verified 10/18/24 13:19 fenofibrate Allergy Intermediate hives Verified 10/18/24 13:19 Penicillins Allergy hives Verified 10/18/24 13:19 Vital Signs Vital Signs - 24 hr 10/27/24 14:00 10/27/24 20:00 10/27/24 22:15 Temperature 98.2 F 97.9 F Pulse Rate 76 76 80 Respiratory Rate 18 18 16 Blood Pressure 134/68 116/67 Pulse Oximetry 100 100 100 Oxygen Delivery Room Air Fraction of Inspired Oxygen 21 10/28/24 06:03 10/28/24 08:49 Temperature 97.6 F 97.2 F L Pulse Rate 81 78 Respiratory Rate 16 20 Blood Pressure 127/70 134/71 Pulse Oximetry 93 100 Oxygen Delivery Fraction of Inspired Oxygen Exam Narrative: The patient looks chronically ill, with a nasogastric tube in his left narin, barely arousable. . Abdomen: Soft, nontender, large midline scar from previous surgery, bowel sounds present, no tenderness. Results Labs 10/28/24 04:40 10/28/24 04:40 Labs: Short CBC 10/28/24 Range/Units 04:40 WBC 5.9 (4.5-10.0) K/mm3 Hgb 6.7 L* (14.0-18.0) g/dL Hct 21.5 L (42.0-52.0) % Plt Count 234 (150-375) k/mm3 BMP 10/28/24 04:40 Sodium 139 Potassium 4.4 Chloride 109 H Carbon Dioxide 23 BUN 21 H Creatinine 0.88 Glucose 98 Calcium 8.2 L Cardiac Enzymes 10/28/24 Range/Units 04:40 Total Creatine Kinase 84 (55-170) U/L Liver Function 10/28/24 Range/Units 04:40 Total Bilirubin 0.6 (0.2-1.3) mg/dL AST 40 (17-59) U/L ALT 24 (6-50) U/L Alkaline Phosphatase 152 H (38-126) U/L Albumin 2.3 L (3.5-5.1) g/dL
[2024-10-28 12:49] LABS: Hematocrit 24.4 % (42.0-52.0); Hemoglobin 7.7 g/dL (14.0-18.0)
[2024-10-28] MEDS: AZITHROMYCIN IV 250 MG in SODIUM CHLORIDE 0.9% IV 250 ML IVPB (16:26)
[2024-10-29] MEDS: CEFEPIME 1 GM/NS 50 ML 1 GM/50 ML BAG IVPB ×2 (01:45→09:09)
[2024-10-29 05:03] LABS: Hematocrit 23.7 % (42.0-52.0); Hemoglobin 7.6 g/dL (14.0-18.0); Immature Granulocyte Percent A 0.3 % (0-0.5); Lymphocytes Absolute Auto 1.32 K/mm3 (0.9-3.2); Mean Corpuscular HGB Conc 32.1 g/dl (32-36); Mean Corpuscular Hemoglobin 29.1 pg (26-34); Mean Corpuscular Volume 90.8 fl (80-100); Nucleated Red Blood Cells Absolute Auto 0.000 K/mm3 (0.0-0.012); Nucleated Red Blood Cells Perc 0.0 % (0.0-0.2); Platelet Count Result 247 k/mm3 (150-375); Red Blood Count 2.61 M/mm3 (4.6-6.20); White Blood Count 6.8 K/mm3 (4.5-10.0)
[2024-10-29 05:25] VITALS: BP 149/90; PULSE 77; RESP 18; TEMP 36.2; O2SAT 99
[2024-10-29 05:25] LABS: Alanine Aminotransferase 21 U/L (6-50); Albumin Level 2.4 g/dL (3.5-5.1); Alkaline Phosphatase 139 U/L (38-126); Anion Gap 6 mmol/L (4-12); Aspartate Amino Transferase 35 U/L (17-59); Bilirubin,Total 0.6 mg/dL (0.2-1.3); Blood Urea Nitrogen 20 mg/dL (9-20); Calcium 8.3 mg/dL (8.4-10.2); Carbon Dioxide 24 mmol/L (22-30); Chloride 109 mmol/L (98-107); Creatine Kinase 75 U/L (55-170); Estimated CRCL calculation 64 ml/min; Estimated Glomerular Filt Rate > 60; Glucose 100 mg/dL (65-110); Magnesium 1.5 mg/dL (1.6-2.3); Potassium 4.5 mmol/L (3.4-5.0); Sodium 139 mmol/L (137-145); Total Protein 5.6 g/dL (6.3-8.2)
[2024-10-29 05:36] LABS: Anisocytosis 1+; Hypochromasia 2+
[2024-10-29 05:37] LABS: Schistocytes None Seen
[2024-10-29] MEDS: VANCOMYCIN ORAL 125 MG/2.5 ML SYRUP FEED TUBE ×4 (06:03→23:49)
[2024-10-29] MEDS: THIAMINE HCL 100 MG TABLET FEED TUBE (08:41)
[2024-10-29] MEDS: FOLIC ACID 1 MG TABLET FEED TUBE (08:41)
[2024-10-29] MEDS: PANTOPRAZOLE SODIUM IV 40 MG VIAL IV PUSH ×2 (08:41→21:34)
--- NOTE | 2024-10-29 09:26 | PCSTNOTE ---
Spoke with patient's nurse Garcia. Patient remains minimally responsive will attempt additional speech treatment tomorrow.
[2024-10-29] MEDS: MAGNESIUM SULF 2 GM/WATER 50ML 2 GM/50 ML BAG IVPB (11:17)
--- NOTE | 2024-10-29 11:38 | WPDNEUROPN ---
Progress Note: A&P Assessment and Plan (1) Metabolic encephalopathy: Code(s): G93.41 - Metabolic encephalopathy Status: Acute Assessment and Plan: With a fairly the discussion regarding the reasons for his metabolic encephalopathy with the hospitalist and as well as the daughter and the son and the nursing staff. It appears that he has history of alcohol drinking and some memory loss and in addition he has rhabdomyolysis and acute renal his disease from which he is making progress. 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 MRI of the brain shows some white matter changes and moderate degree of atrophy. I suggest spinal tap to look into any possibility of encephalitis a concurrent etiology for his mental status. a follow-up EEG is also recommended. (2) Alcohol abuse: Code(s): F10.10 - Alcohol abuse, uncomplicated Status: Acute (3) Hypotension: Qualifiers: Hypotension type: unspecified hypotension type Qualified Code(s): I95.9 - Hypotension, unspecified Code(s): I95.9 - Hypotension, unspecified Status: Acute (4) Anemia: Code(s): D64.9 - Anemia, unspecified Status: Acute Plan Will proceed with the spinal tap and the analysis of CSF for any underlying sepsis. I noted that he has vitamin B12 level being in the normal range and folic acid level was low and he is getting supplement for the same. He is also receiving time 100 mg daily. He is also on magnesium supplement. Also suggest to check his serum ammonia level. His liver enzymes are within normal range. Subjective Date/time seen: 10/29/24 11:38 Interval history: Patient continues to be lethargic. Reviewing his notes it was noted that he has C diff infection and also anemia and sinusitis. He has been treated for these despite which she remains lethargic. I called his daughter and subsequently his son since the son knows more about him. The patient has been drinking alcohol of injection for last 2 years or longer. His 2 years ago. The son thought that he was being more forgetful. There is a history of peptic ulcer surgery on on emergency basis in 1986. He also has had gout and hypertension. However overall he was able to take care of his own personal needs. Review of Systems Review of Systems: ROS unobtainable: Yes unobtainable due to mental status Exam Narrative: The patient is awake but appears lethargic and does not actively participate in any conversation. Nevertheless he does not appear to have aphasia. The tone in the left upper limb appears decreased compared to the right side. No facial asymmetry. Extraocular movements intact. Objective Data Vital Signs Vital Signs: Vital Signs - 24 hr 10/28/24 14:00 10/28/24 20:00 10/28/24 20:23 Temperature 98.2 F 97.6 F Pulse Rate 80 79 79 Respiratory Rate 18 18 18 Blood Pressure 134/75 135/84 Pulse Oximetry 100 100 100 Oxygen Delivery Room Air Fraction of Inspired Oxygen 21 10/29/24 05:25 10/29/24 08:41 Temperature 97.2 F L Pulse Rate 77 Respiratory Rate 18 Blood Pressure 149/90 H Pulse Oximetry 99 Oxygen Delivery Room Air Fraction of Inspired Oxygen Intake/Output Intake/Output: Intake & Output 10/26/24 10/27/24 10/28/24 10/29/24 23:59 23:59 23:59 23:59 Intake Total 4572.2 4218 4700.8 1887 Output Total 700 4050 1550 1700 Balance 3872.2 168 3150.8 187 Meds/Results Medications: Active Medications Generic Name Dose Route Start Last Admin Trade Name Freq PRN Reason Stop Dose Admin Dextrose 12.5 gm 10/17/24 21:26 10/28/24 06:22 Dextrose 50% 25 Gm/50 Ml Syringe IV PUSH 12.5 gm PRN PRN Administration Hypoglycemia Protocol Enoxaparin Sodium 30 mg 10/18/24 09:00 Enoxaparin 30 Mg/0.3 Ml Syringe SUB-Q DAILY JHONY Folic Acid 1 mg 10/24/24 09:00 10/29/24 08:41 Folic Acid 1 Mg Tablet FEED TUBE 1 mg QAM JHONY Administration Glucagon 1 mg 10/17/24 21:26 Glucagon For Inj 1 Mg Vial IM PRN PRN Hypoglycemia Protocol Glucose 15 gm 10/17/24 21:26 Glucose Oral Gel 15 Gm Of Glucse In 37.5 Gm Tube PO PRN PRN Hypoglycemia Protocol Dextrose 1,000 mls @ 100 mls/hr 10/17/24 21:26 Dextrose 5% 1,000 Ml IVPB PRN PRN Hypoglycemia Protocol Sodium Chloride 1,000 mls @ 75 mls/hr 10/22/24 20:40 10/28/24 17:47 Sodium Chloride 0.45% IV CONT 75 mls/hr .[id number] JHONY Administration Azithromycin 250 mg/ Sodium 250 mls @ 250 mls/hr 10/25/24 17:00 10/28/24 17:26 Chloride IVPB Infused Q24H JHONY Infusion Cefepime HCl 1 gm in 50 mls @ 100 mls/hr 10/25/24 18:00 10/29/24 09:39 Maxipime 1 Gm/Ns 50 Ml IVPB Infused Q8H JHONY Infusion Pantoprazole Sodium 40 mg 10/18/24 21:00 10/29/24 08:41 Pantoprazole Sodium Iv 40 Mg Vial IV PUSH 40 mg Q12HR JHONY Administration Thiamine HCl 100 mg 10/24/24 09:00 10/29/24 08:41 Thiamine Hcl 100 Mg Tablet FEED TUBE 100 mg QAM JHONY Administration Vancomycin HCl 125 mg 10/22/24 15:00 10/29/24 11:17 Vancomycin Oral 125 Mg/2.5 Ml Syrup FEED TUBE 11/01/24 12:01 125 mg Q6HR JHONY Administration Radiology Results: ITS Impressions Chest/Abdomen/Pelvis CT 10/17/24 10:46 IMPRESSION: No hollow or solid organ injury. No acute fractures. Head CT 10/19/24 09:19 Impression: No acute intracranial hemorrhage or suspicious mass effect. Inflammatory sinus disease. Face CT 10/19/24 09:39 IMPRESSION: 1. Extensive sinus disease with near complete opacification of the right maxillary sinus and dependently layering fluid in the bilateral sphenoid sinuses. Correlate clinically for acute sinusitis. 2. Dental and periodontal disease with periapical lucency surrounding the posterior most remaining right maxillary molar. Renal Ultrasound 10/19/24 09:48 IMPRESSION: No hydronephrosis or renal calculi. No parenchymal findings to suggest the presence of medical renal disease. Simple cysts within the right kidney, for which no further follow-up is needed. Abdomen X-Ray 10/19/24 11:15 IMPRESSION: Nasogastric tube in good position and ready for immediate use. Brain MRI 10/24/24 14:22 IMPRESSION: 1. Age-related changes the brain. No acute intracranial process. 2. Prominent sinus disease with fluid nearly filling the right maxillary sinus and layering dependently in the bilateral sphenoid sinuses. Correlate clinically for acute sinusitis. Chest X-Ray 10/25/24 13:47 Impression: 1: Right basilar airspace disease, atelectasis versus pneumonia. Elevated right diaphragm. Labs Labs: Laboratory Results - last 24 hr 10/28/24 10/28/24 10/28/24 06:36 12:00 12:43 WBC RBC Hgb 7.7 L Hct 24.4 L MCV MCH MCHC RDW Plt Count MPV Immature Gran % (Auto) Neut % (Auto) Lymph % (Auto) [place] % (Auto) Eos % (Auto) Baso % (Auto) Lymph # (Auto) [place] # (Auto) Eos # (Auto) Baso # (Auto) Abs Immat Gran (auto) Absolute Neuts (auto) Absolute Nucleated RBC Band Neutrophils % Nucleated RBC % Platelet Estimate Hypochromasia Anisocytosis Schistocytes Sodium Potassium Chloride Carbon Dioxide Anion Gap BUN Creatinine Estim Creat Clear Calc Estimated GFR Glucose POC Capillary Glucose 99 Calcium Magnesium Total Bilirubin AST ALT Alkaline Phosphatase Total Creatine Kinase Total Protein Albumin Crossmatch See Detail 10/28/24 10/28/24 10/28/24 18:22 20:20 23:14 WBC RBC Hgb Hct MCV MCH MCHC RDW Plt Count MPV Immature Gran % (Auto) Neut % (Auto) Lymph % (Auto) [place] % (Auto) Eos % (Auto) Baso % (Auto) Lymph # (Auto) [place] # (Auto) Eos # (Auto) Baso # (Auto) Abs Immat Gran (auto) Absolute Neuts (auto) Absolute Nucleated RBC Band Neutrophils % Nucleated RBC % Platelet Estimate Hypochromasia Anisocytosis Schistocytes Sodium Potassium Chloride Carbon Dioxide Anion Gap BUN Creatinine Estim Creat Clear Calc Estimated GFR Glucose POC Capillary Glucose 86 88 107 H Calcium Magnesium Total Bilirubin AST ALT Alkaline Phosphatase Total Creatine Kinase Total Protein Albumin Crossmatch 10/29/24 10/29/24 04:24 05:33 WBC 6.8 RBC 2.61 L Hgb 7.6 L Hct 23.7 L MCV 90.8 D MCH 29.1 MCHC 32.1 RDW 24.1 H Plt Count 247 MPV 11.1 H Immature Gran % (Auto) 0.3 Neut % (Auto) 58.7 Lymph % (Auto) 19.5 [place] % (Auto) 17.3 H Eos % (Auto) 3.8 Baso % (Auto) 0.4 Lymph # (Auto) 1.32 [place] # (Auto) 1.2 H Eos # (Auto) 0.3 Baso # (Auto) 0.0 Abs Immat Gran (auto) 0.02 Absolute Neuts (auto) 4.0 Absolute Nucleated RBC 0.000 Band Neutrophils % Not Reportable Nucleated RBC % 0.0 Platelet Estimate Adequate Hypochromasia 2+ Anisocytosis 1+ Schistocytes None seen Sodium 139 Potassium 4.5 Chloride 109 H Carbon Dioxide 24 Anion Gap 6 BUN 20 Creatinine 0.92 Estim Creat Clear Calc 64 Estimated GFR > 60 Glucose 100 POC Capillary Glucose 102 Calcium 8.3 L Magnesium 1.5 L Total Bilirubin 0.6 AST 35 ALT 21 Alkaline Phosphatase 139 H Total Creatine Kinase 75 Total Protein 5.6 L Albumin 2.4 L Crossmatch
--- NOTE | 2024-10-29 11:41 | WPDGIPROGNO ---
Progress Note: A&P Assessment and Plan (1) Anemia: Code(s): D64.9 - Anemia, unspecified Status: Acute Assessment and Plan: As discussed yesterday, patient has chronic anemia and has no evidence of acute bleeding. No need for endoscopic interventions for now. Please feel free to contact us for any changes in his current status. Thank you. Subjective Date/time seen: 10/29/24 11:41 Interval history: No changes compared to yesterday's status. Exam Narrative: Abdomen: Large vertical midline scar from previous surgery. No tenderness. Objective Data Vital Signs Vital Signs: Vital Signs - 24 hr 10/28/24 14:00 10/28/24 20:00 10/28/24 20:23 Temperature 98.2 F 97.6 F Pulse Rate 80 79 79 Respiratory Rate 18 18 18 Blood Pressure 134/75 135/84 Pulse Oximetry 100 100 100 Oxygen Delivery Room Air Fraction of Inspired Oxygen 21 10/29/24 05:25 10/29/24 08:41 Temperature 97.2 F L Pulse Rate 77 Respiratory Rate 18 Blood Pressure 149/90 H Pulse Oximetry 99 Oxygen Delivery Room Air Fraction of Inspired Oxygen Intake/Output Intake/Output: Intake & Output 10/26/24 10/27/24 10/28/24 10/29/24 23:59 23:59 23:59 23:59 Intake Total 4572.2 4218 4700.8 1887 Output Total 700 4050 1550 2675 Balance 3872.2 168 3150.8 -788 Meds/Results Medications: Active Medications Generic Name Dose Route Start Last Admin Trade Name Freq PRN Reason Stop Dose Admin Dextrose 12.5 gm 10/17/24 21:26 10/28/24 06:22 Dextrose 50% 25 Gm/50 Ml Syringe IV PUSH 12.5 gm PRN PRN Administration Hypoglycemia Protocol Enoxaparin Sodium 30 mg 10/18/24 09:00 Enoxaparin 30 Mg/0.3 Ml Syringe SUB-Q DAILY JHONY Folic Acid 1 mg 10/24/24 09:00 10/29/24 08:41 Folic Acid 1 Mg Tablet FEED TUBE 1 mg QAM JHONY Administration Glucagon 1 mg 10/17/24 21:26 Glucagon For Inj 1 Mg Vial IM PRN PRN Hypoglycemia Protocol Glucose 15 gm 10/17/24 21:26 Glucose Oral Gel 15 Gm Of Glucse In 37.5 Gm Tube PO PRN PRN Hypoglycemia Protocol Dextrose 1,000 mls @ 100 mls/hr 10/17/24 21:26 Dextrose 5% 1,000 Ml IVPB PRN PRN Hypoglycemia Protocol Sodium Chloride 1,000 mls @ 75 mls/hr 10/22/24 20:40 10/28/24 17:47 Sodium Chloride 0.45% IV CONT 75 mls/hr .[id number] JHONY Administration Azithromycin 250 mg/ Sodium 250 mls @ 250 mls/hr 10/25/24 17:00 10/28/24 17:26 Chloride IVPB Infused Q24H JHONY Infusion Cefepime HCl 1 gm in 50 mls @ 100 mls/hr 10/25/24 18:00 10/29/24 09:39 Maxipime 1 Gm/Ns 50 Ml IVPB Infused Q8H JHONY Infusion Pantoprazole Sodium 40 mg 10/18/24 21:00 10/29/24 08:41 Pantoprazole Sodium Iv 40 Mg Vial IV PUSH 40 mg Q12HR JHONY Administration Thiamine HCl 100 mg 10/24/24 09:00 10/29/24 08:41 Thiamine Hcl 100 Mg Tablet FEED TUBE 100 mg QAM JHONY Administration Vancomycin HCl 125 mg 10/22/24 15:00 10/29/24 11:17 Vancomycin Oral 125 Mg/2.5 Ml Syrup FEED TUBE 11/01/24 12:01 125 mg Q6HR JHONY Administration Radiology Results: ITS Impressions Chest/Abdomen/Pelvis CT 10/17/24 10:46 IMPRESSION: No hollow or solid organ injury. No acute fractures. Head CT 10/19/24 09:19 Impression: No acute intracranial hemorrhage or suspicious mass effect. Inflammatory sinus disease. Face CT 10/19/24 09:39 IMPRESSION: 1. Extensive sinus disease with near complete opacification of the right maxillary sinus and dependently layering fluid in the bilateral sphenoid sinuses. Correlate clinically for acute sinusitis. 2. Dental and periodontal disease with periapical lucency surrounding the posterior most remaining right maxillary molar. Renal Ultrasound 10/19/24 09:48 IMPRESSION: No hydronephrosis or renal calculi. No parenchymal findings to suggest the presence of medical renal disease. Simple cysts within the right kidney, for which no further follow-up is needed. Abdomen X-Ray 10/19/24 11:15 IMPRESSION: Nasogastric tube in good position and ready for immediate use. Brain MRI 10/24/24 14:22 IMPRESSION: 1. Age-related changes the brain. No acute intracranial process. 2. Prominent sinus disease with fluid nearly filling the right maxillary sinus and layering dependently in the bilateral sphenoid sinuses. Correlate clinically for acute sinusitis. Chest X-Ray 10/25/24 13:47 Impression: 1: Right basilar airspace disease, atelectasis versus pneumonia. Elevated right diaphragm. Labs Labs: Laboratory Results - last 24 hr 10/28/24 10/28/24 10/28/24 06:36 12:00 12:43 WBC RBC Hgb 7.7 L Hct 24.4 L MCV MCH MCHC RDW Plt Count MPV Immature Gran % (Auto) Neut % (Auto) Lymph % (Auto) [place] % (Auto) Eos % (Auto) Baso % (Auto) Lymph # (Auto) [place] # (Auto) Eos # (Auto) Baso # (Auto) Abs Immat Gran (auto) Absolute Neuts (auto) Absolute Nucleated RBC Band Neutrophils % Nucleated RBC % Platelet Estimate Hypochromasia Anisocytosis Schistocytes Sodium Potassium Chloride Carbon Dioxide Anion Gap BUN Creatinine Estim Creat Clear Calc Estimated GFR Glucose POC Capillary Glucose 99 Calcium Magnesium Total Bilirubin AST ALT Alkaline Phosphatase Total Creatine Kinase Total Protein Albumin Crossmatch See Detail 10/28/24 10/28/24 10/28/24 18:22 20:20 23:14 WBC RBC Hgb Hct MCV MCH MCHC RDW Plt Count MPV Immature Gran % (Auto) Neut % (Auto) Lymph % (Auto) [place] % (Auto) Eos % (Auto) Baso % (Auto) Lymph # (Auto) [place] # (Auto) Eos # (Auto) Baso # (Auto) Abs Immat Gran (auto) Absolute Neuts (auto) Absolute Nucleated RBC Band Neutrophils % Nucleated RBC % Platelet Estimate Hypochromasia Anisocytosis Schistocytes Sodium Potassium Chloride Carbon Dioxide Anion Gap BUN Creatinine Estim Creat Clear Calc Estimated GFR Glucose POC Capillary Glucose 86 88 107 H Calcium Magnesium Total Bilirubin AST ALT Alkaline Phosphatase Total Creatine Kinase Total Protein Albumin Crossmatch 10/29/24 10/29/24 04:24 05:33 WBC 6.8 RBC 2.61 L Hgb 7.6 L Hct 23.7 L MCV 90.8 D MCH 29.1 MCHC 32.1 RDW 24.1 H Plt Count 247 MPV 11.1 H Immature Gran % (Auto) 0.3 Neut % (Auto) 58.7 Lymph % (Auto) 19.5 [place] % (Auto) 17.3 H Eos % (Auto) 3.8 Baso % (Auto) 0.4 Lymph # (Auto) 1.32 [place] # (Auto) 1.2 H Eos # (Auto) 0.3 Baso # (Auto) 0.0 Abs Immat Gran (auto) 0.02 Absolute Neuts (auto) 4.0 Absolute Nucleated RBC 0.000 Band Neutrophils % Not Reportable Nucleated RBC % 0.0 Platelet Estimate Adequate Hypochromasia 2+ Anisocytosis 1+ Schistocytes None seen Sodium 139 Potassium 4.5 Chloride 109 H Carbon Dioxide 24 Anion Gap 6 BUN 20 Creatinine 0.92 Estim Creat Clear Calc 64 Estimated GFR > 60 Glucose 100 POC Capillary Glucose 102 Calcium 8.3 L Magnesium 1.5 L Total Bilirubin 0.6 AST 35 ALT 21 Alkaline Phosphatase 139 H Total Creatine Kinase 75 Total Protein 5.6 L Albumin 2.4 L Crossmatch
[2024-10-29 12:33] LABS: Ammonia < 9 umol/L (9-30)
[2024-10-29 13:31] VITALS: BP 154/83; PULSE 78; RESP 18; TEMP 36.4; O2SAT 100
[2024-10-29 14:20] VITALS: BMI 10.0
--- NOTE | 2024-10-29 15:37 | PM.IMPN ---
Progress Note: A&P Assessment and Plan (1) Shock: Code(s): R57.9 - Shock, unspecified Status: Acute Assessment and Plan: RESOLVED 10/17: EMS arrived at patient's house: he was found face down with, hypotensive with systolic in the 50s, patient given IV fluids in the ER, central line inserted, started on Levophed. CT head was negative. Chest x-ray with no focal infiltrate or effusion. CT chest abdomen pelvis with no acute findings. Face CT with extensive sinus disease with near complete opacification of the right maxillary sinus and dependently layering fluid in the bilateral sphenoid sinuses. Dental and periodontal disease with periapical lucency surrounding the posterior-most remaining right maxillary molar. -off Levophed since the morning of 10/18 -procalcitonin levels are at high -patient was started on cefepime and vancomycin which was discontinued since there was no nidus of infection -MRSA screen is negative, -10/17: Blood cultures negative-so far -no nidus of infection on either chest x-ray, CT chest abdomen and pelvis, UA was clear, -10/19: given low body temperature, elevated procalcitonin started on ceftriaxone empirically. Procalcitonin can also be raised in tissue injury -10/19: UA reflective of UTI, also given sinusitis on CT scan of the face, started patient on ceftriaxone since 10/19/2024. Urine culture not obtained. Will conclude 10/24/2019 Liquid stool. Could be tube feed related. C diff came back positive Started on vancomycin 10/23/2019 (2) Altered mental status: Qualifiers: Altered mental status type: disorientation Qualified Code(s): R41.0 - Disorientation, unspecified Code(s): R41.82 - Altered mental status, unspecified Status: Acute Assessment and Plan: Altered mental status is multifactorial could be related to hypovolemia, shock, hypotension, acute kidney injury, rhabdomyolysis -CT brain was negative for intracranial abnormalities -MRI cannot be performed as patient was in the [place] and may have sharpnel exposure according to his daughter -10/19: Repeat CT brain did not show any acute intracranial hemorrhage or suspicious mass effect, inflammatory sinus disease. -10/19: CT facial bones showed extensive sinus disease with near complete opacification of the right maxillary sinus and dependently layering fluid in the bilateral sphenoid sinuses. Dental and periodontal disease with periapical lucency surrounding the posterior most remaining right maxillary molar Despite improvement in metabolic issues he remains encephalopathic Will further evaluate with MRI brain and EEG. Neurology consultation Brain MRI in process EEG performed: No seizure activity noted. (3) Fall (on) (from) other stairs and steps, initial encounter: Code(s): W10.8XXA - Fall (on) (from) other stairs and steps, initial encounter Status: Acute Assessment and Plan: Patient was found on the ground face down unknown amount of time, unknown etiology -continue treat underlying cause -10/18: Echocardiogram showed EF of 60-65%, normal biventricular size and systolic function, no significant valvular abnormalities (4) Acute kidney injury: Code(s): N17.9 - Acute kidney failure, unspecified Status: Acute Assessment and Plan: Acute kidney injury likely related to hypotension, hypovolemia, shock, rhabdomyolysis -patient received 3 L IV fluid bolus in the ER -started on bicarb infusion -patient was hypernatremic on admission, -sodium levels trending down gradually currently on bicarb infusion per Nephrology -continue to monitor urine output, electrolytes and renal function -patient presented with creatinine of 3.0 (baseline 1.0 in October [address] [facility]) -urine lytes not reflective of prerenal picture, urine eosinophils are negative -CT scan of the abdomen and pelvis did not show any hydronephrosis -renal ultrasound: No hydronephrosis or renal calculi, no apparent, findings to suggest the presence of medical renal disease. Simple cyst within the right kidney -CK levels trending down on admission 5864 peaked to 8292. -appreciate Nephrology evaluation and recommendation Conjunctival chemosis noted. IV fluids stopped Already getting tube feeds at 55 cc an hour (5) Rhabdomyolysis: Qualifiers: Encounter type: initial encounter Rhabdomyolysis type: traumatic Qualified Code(s): T79.6XXA - Traumatic ischemia of muscle, initial encounter Code(s): M62.82 - Rhabdomyolysis Status: Acute Assessment and Plan: Rhabdomyolysis likely related to being down on the ground for unknown amount of time -patient has been given 3 L IV fluids in the ER plus 500 mL of LR bolus in the ICU on 10/18. Patient seems to be adequately fluid-resuscitated -continue IV fluids per Nephrology CK levels trending down on admission 5864 peaked to 8292. (6) Electrolyte imbalance: Code(s): E87.8 - Other disorders of electrolyte and fluid balance, not elsewhere classified Status: Acute Assessment and Plan: Magnesium repleted (7) Anemia: Code(s): D64.9 - Anemia, unspecified Status: Acute Assessment and Plan: Patient dropped his hemoglobin this morning to 6.2 from 9.1 on admission -10/18: status post 2 units of packed RBCs -stool occult is negative -vitamin B12 levels are normal, folic acid is low will substitute -iron panel looks normal -hemoglobin remained stable (8) Thrombocytopenia: Code(s): D69.6 - Thrombocytopenia, unspecified Status: Acute Assessment and Plan: Thrombocytopenia with platelet counts of 62 this morning, 91 on admission -10/18: status post 1 unit of platelets -INR 1.2 on admission -platelets remain low, continue to monitor Does have history of chronic alcohol abuse per family. No baseline available Concern for TTP. Hematology consult Will Also order hit panel Plan 69 y/o male was found after he fell under stairs by his family, patient had AMS was not able to provide details ROS or history, patient had CT was normal upon arrival, as well his MRI of Brain for any acute injury, patient. upon arrival patient hgb was 9.1 and dropped to 6.2 without and GI bleed, patient was seen by enterprise data architect and suspect anemia 2/2 renal dysfunction, and work up is in progress, also on admission patient had elevated CK levels of 5864 most likely 2/2 fall and don't know how long patient was on the ground after fall however his CK levels today are 189 and his ALEJANDRO has improved and patient is seen by printed circuit board layout designer, patient had dysphagia on NG tube feeding consulted GI for PEG however patient platelets were low in 37 today is 234 suspect most likely 2/2 alcohol abuse, seen by enterprise data architect and further work up is in progress, patient lungs sounded congested CXR concerning for pneumonia being treated with Cefepime and Zithromax, blood culture no growth so far, and follow up. patient is found to C diff diarrhea his stools liquidity, patient hgb drop to 6.7 on 10/28 there is no obvious bleeding but stool hemoccult was positive, was seen GI, patient anemian does not warrant any GI workup, will monitor patient does not provide much ROS, today discussed the case with the neurologist recommended spinal tap, the neurologist called the patient daughter gave updates, and got the consent for LP, will follow up and monitor. DVT prophylaxis: SCDs, no chemoprophylaxis due to thrombocytopenia Stress ulcer prophylaxis: Protonix IV q.12 hours Nutrition: NG tube placed on 10/19: Started on tube feeds and tolerating Code Status: Full code Subjective Date/time seen: 10/29/24 15:37 Interval history: 69 y/o male was found after he fell under stairs by his family, patient had AMS was not able to provide details ROS or history, patient had CT was normal upon arrival, as well his MRI of Brain for any acute injury, patient. upon arrival patient hgb was 9.1 and dropped to 6.2 without and GI bleed, patient was seen by enterprise data architect and suspect anemia 2/2 renal dysfunction, and work up is in progress, also on admission patient had elevated CK levels of 5864 most likely 2/2 fall and don't know how long patient was on the ground after fall however his CK levels today are 189 and his ALEJANDRO has improved and patient is seen by printed circuit board layout designer, patient had dysphagia on NG tube feeding consulted GI for PEG however patient platelets were low in 37 today is 234 suspect most likely 2/2 alcohol abuse, seen by enterprise data architect and further work up is in progress, patient lungs sounded congested CXR concerning for pneumonia being treated with Cefepime and Zithromax, blood culture no growth so far, and follow up. patient is found to C diff diarrhea his stools liquidity, patient hgb drop to 6.7 on 10/28 there is no obvious bleeding but stool hemoccult was positive, was seen GI, patient anemian does not warrant any GI workup, will monitor patient does not provide much ROS, today discussed the case with the neurologist recommended spinal tap, the neurologist called the patient daughter gave updates, and got the consent for LP, will follow up and monitor. Review of Systems Review of Systems: ROS unobtainable: Yes unobtainable due to medical condition and unobtainable due to mental status Exam Narrative: Patient is comfortable, NAD HEENT: eyes are clear and none icteric, NG tube in place LUNGS:CTA HEART: RR S1S2 ABD: BS+, Soft and nontender Lower extremities: no edema SKIN: nonjaundiced Neuro: grossly intact. Objective Data Vital Signs Vital Signs: Vital Signs - 24 hr 10/28/24 20:00 10/28/24 20:23 10/29/24 05:25 Temperature 36.4 C 36.2 C L Pulse Rate 79 79 77 Respiratory Rate 18 18 18 Blood Pressure 135/84 149/90 H Pulse Oximetry 100 100 99 Oxygen Delivery Room Air Fraction of Inspired Oxygen 21 10/29/24 08:41 10/29/24 13:31 Temperature 36.4 C Pulse Rate 78 Respiratory Rate 18 Blood Pressure 154/83 H Pulse Oximetry 100 Oxygen Delivery Room Air Fraction of Inspired Oxygen Intake/Output Intake/Output: Intake & Output 10/26/24 10/27/24 10/28/24 10/29/24 23:59 23:59 23:59 23:59 Intake Total 4572.2 4218 4700.8 1887 Output Total 700 4050 1550 2675 Balance 3872.2 168 3150.8 -788 Meds/Results Medications: Active Medications Generic Name Dose Route Start Last Admin Trade Name Freq PRN Reason Stop Dose Admin Azithromycin 250 mg 10/29/24 17:00 Azithromycin 250 Mg Tablet PO 10/29/24 17:01 ONCE ONE Dextrose 12.5 gm 10/17/24 21:26 10/28/24 06:22 Dextrose 50% 25 Gm/50 Ml Syringe IV PUSH 12.5 gm PRN PRN Administration Hypoglycemia Protocol Enoxaparin Sodium 30 mg 10/18/24 09:00 Enoxaparin 30 Mg/0.3 Ml Syringe SUB-Q DAILY JHONY Folic Acid 1 mg 10/24/24 09:00 10/29/24 08:41 Folic Acid 1 Mg Tablet FEED TUBE 1 mg QAM JHONY Administration Glucagon 1 mg 10/17/24 21:26 Glucagon For Inj 1 Mg Vial IM PRN PRN Hypoglycemia Protocol Glucose 15 gm 10/17/24 21:26 Glucose Oral Gel 15 Gm Of Glucse In 37.5 Gm Tube PO PRN PRN Hypoglycemia Protocol Dextrose 1,000 mls @ 100 mls/hr 10/17/24 21:26 Dextrose 5% 1,000 Ml IVPB PRN PRN Hypoglycemia Protocol Sodium Chloride 1,000 mls @ 75 mls/hr 10/22/24 20:40 10/28/24 17:47 Sodium Chloride 0.45% IV CONT 75 mls/hr .[id number] JHONY Administration Pantoprazole Sodium 40 mg 10/18/24 21:00 10/29/24 08:41 Pantoprazole Sodium Iv 40 Mg Vial IV PUSH 40 mg Q12HR JHONY Administration Sodium Chloride 6 ml 10/30/24 05:00 Sodium Chlor 3% 15 Ml Neb (Respiratory Therapy) INHALATION 11/01/24 05:01 DAILY@0500 JHONY Thiamine HCl 100 mg 10/24/24 09:00 10/29/24 08:41 Thiamine Hcl 100 Mg Tablet FEED TUBE 100 mg QAM JHONY Administration Vancomycin HCl 125 mg 10/22/24 15:00 10/29/24 11:17 Vancomycin Oral 125 Mg/2.5 Ml Syrup FEED TUBE 11/01/24 12:01 125 mg Q6HR JHONY Administration Radiology Results: ITS Impressions Chest/Abdomen/Pelvis CT 10/17/24 10:46 IMPRESSION: No hollow or solid organ injury. No acute fractures. Head CT 10/19/24 09:19 Impression: No acute intracranial hemorrhage or suspicious mass effect. Inflammatory sinus disease. Face CT 10/19/24 09:39 IMPRESSION: 1. Extensive sinus disease with near complete opacification of the right maxillary sinus and dependently layering fluid in the bilateral sphenoid sinuses. Correlate clinically for acute sinusitis. 2. Dental and periodontal disease with periapical lucency surrounding the posterior most remaining right maxillary molar. Renal Ultrasound 10/19/24 09:48 IMPRESSION: No hydronephrosis or renal calculi. No parenchymal findings to suggest the presence of medical renal disease. Simple cysts within the right kidney, for which no further follow-up is needed. Abdomen X-Ray 10/19/24 11:15 IMPRESSION: Nasogastric tube in good position and ready for immediate use. Brain MRI 10/24/24 14:22 IMPRESSION: 1. Age-related changes the brain. No acute intracranial process. 2. Prominent sinus disease with fluid nearly filling the right maxillary sinus and layering dependently in the bilateral sphenoid sinuses. Correlate clinically for acute sinusitis. Chest X-Ray 10/29/24 14:04 Impression: Clear lungs. NG tube in place. Labs Labs: Laboratory Results - last 24 hr 10/28/24 10/28/24 10/28/24 18:22 20:20 23:14 WBC RBC Hgb Hct MCV MCH MCHC RDW Plt Count MPV Immature Gran % (Auto) Neut % (Auto) Lymph % (Auto) [place] % (Auto) Eos % (Auto) Baso % (Auto) Lymph # (Auto) [place] # (Auto) Eos # (Auto) Baso # (Auto) Abs Immat Gran (auto) Absolute Neuts (auto) Absolute Nucleated RBC Band Neutrophils % Nucleated RBC % Platelet Estimate Hypochromasia Anisocytosis Schistocytes Sodium Potassium Chloride Carbon Dioxide Anion Gap BUN Creatinine Estim Creat Clear Calc Estimated GFR Glucose POC Capillary Glucose 86 88 107 H Calcium Magnesium Total Bilirubin AST ALT Alkaline Phosphatase Ammonia Total Creatine Kinase Total Protein Albumin 10/29/24 10/29/24 10/29/24 04:24 05:33 11:41 WBC 6.8 RBC 2.61 L Hgb 7.6 L Hct 23.7 L MCV 90.8 D MCH 29.1 MCHC 32.1 RDW 24.1 H Plt Count 247 MPV 11.1 H Immature Gran % (Auto) 0.3 Neut % (Auto) 58.7 Lymph % (Auto) 19.5 [place] % (Auto) 17.3 H Eos % (Auto) 3.8 Baso % (Auto) 0.4 Lymph # (Auto) 1.32 [place] # (Auto) 1.2 H Eos # (Auto) 0.3 Baso # (Auto) 0.0 Abs Immat Gran (auto) 0.02 Absolute Neuts (auto) 4.0 Absolute Nucleated RBC 0.000 Band Neutrophils % Not Reportable Nucleated RBC % 0.0 Platelet Estimate Adequate Hypochromasia 2+ Anisocytosis 1+ Schistocytes None seen Sodium 139 Potassium 4.5 Chloride 109 H Carbon Dioxide 24 Anion Gap 6 BUN 20 Creatinine 0.92 Estim Creat Clear Calc 64 Estimated GFR > 60 Glucose 100 POC Capillary Glucose 102 109 H Calcium 8.3 L Magnesium 1.5 L Total Bilirubin 0.6 AST 35 ALT 21 Alkaline Phosphatase 139 H Ammonia Total Creatine Kinase 75 Total Protein 5.6 L Albumin 2.4 L 10/29/24 12:16 WBC RBC Hgb Hct MCV MCH MCHC RDW Plt Count MPV Immature Gran % (Auto) Neut % (Auto) Lymph % (Auto) [place] % (Auto) Eos % (Auto) Baso % (Auto) Lymph # (Auto) [place] # (Auto) Eos # (Auto) Baso # (Auto) Abs Immat Gran (auto) Absolute Neuts (auto) Absolute Nucleated RBC Band Neutrophils % Nucleated RBC % Platelet Estimate Hypochromasia Anisocytosis Schistocytes Sodium Potassium Chloride Carbon Dioxide Anion Gap BUN Creatinine Estim Creat Clear Calc Estimated GFR Glucose POC Capillary Glucose Calcium Magnesium Total Bilirubin AST ALT Alkaline Phosphatase Ammonia < 9 L Total Creatine Kinase Total Protein Albumin
[2024-10-29] MEDS: AZITHROMYCIN 250 MG TABLET PO (17:09)
[2024-10-29 20:00] VITALS: PULSE 76; RESP 18; O2SAT 100
[2024-10-29 20:09] VITALS: BP 145/70; PULSE 76; RESP 18; TEMP 36.6; O2SAT 100
[2024-10-29] MEDS: SODIUM CHLORIDE 0.45% 1,000 ML 75 ML IV CONT (21:33)
[2024-10-30 05:08] VITALS: BP 152/79; PULSE 79; RESP 18; TEMP 36.5; O2SAT 98
[2024-10-30 05:21] LABS: Hematocrit 25.1 % (42.0-52.0); Hemoglobin 7.9 g/dL (14.0-18.0); Immature Granulocyte Percent A 0.8 % (0-0.5); Lymphocytes Absolute Auto 1.53 K/mm3 (0.9-3.2); Mean Corpuscular HGB Conc 31.5 g/dl (32-36); Mean Corpuscular Hemoglobin 28.8 pg (26-34); Mean Corpuscular Volume 91.6 fl (80-100); Nucleated Red Blood Cells Absolute Auto 0.000 K/mm3 (0.0-0.012); Nucleated Red Blood Cells Perc 0.0 % (0.0-0.2); Platelet Count Result 282 k/mm3 (150-375); Red Blood Count 2.74 M/mm3 (4.6-6.20); White Blood Count 6.4 K/mm3 (4.5-10.0)
[2024-10-30] MEDS: VANCOMYCIN ORAL 125 MG/2.5 ML SYRUP FEED TUBE ×4 (05:29→23:46)
[2024-10-30 05:33] LABS: Alanine Aminotransferase 20 U/L (6-50); Albumin Level 2.5 g/dL (3.5-5.1); Alkaline Phosphatase 142 U/L (38-126); Anion Gap 6 mmol/L (4-12); Aspartate Amino Transferase 37 U/L (17-59); Bilirubin,Total 0.8 mg/dL (0.2-1.3); Blood Urea Nitrogen 19 mg/dL (9-20); Calcium 8.7 mg/dL (8.4-10.2); Carbon Dioxide 24 mmol/L (22-30); Chloride 109 mmol/L (98-107); Creatine Kinase 79 U/L (55-170); Estimated CRCL calculation 61 ml/min; Estimated Glomerular Filt Rate > 60; Glucose 77 mg/dL (65-110); Magnesium 1.7 mg/dL (1.6-2.3); Potassium 4.7 mmol/L (3.4-5.0); Sodium 139 mmol/L (137-145); Total Protein 6.0 g/dL (6.3-8.2)
[2024-10-30 05:38] VITALS: PULSE 79; RESP 18
[2024-10-30] MEDS: DEXTROSE 50% 25 GM/50 ML SYRINGE IV PUSH (05:55)
[2024-10-30 06:39] LABS: Anisocytosis 2+; Crenated RBC 1+; Hypochromasia 1+; Microcytosis 1+ (NORMAL); Schistocytes None Seen
[2024-10-30] MEDS: PANTOPRAZOLE SODIUM IV 40 MG VIAL IV PUSH ×2 (10:16→21:37)
[2024-10-30] MEDS: FOLIC ACID 1 MG TABLET FEED TUBE (10:16)
[2024-10-30] MEDS: THIAMINE HCL 100 MG TABLET FEED TUBE (10:16)
--- NOTE | 2024-10-30 12:15 | PCNFU ---
Nutrition Follow-Up Complete: Inadequate Oral Intake as related to AMS as evidenced by NPO. goal: Meet estimated nutritional needs Patient will continue current goal. Pt current nutrition is Jevity 1.5 at 55 ml/hr with Banatrol Plus TF BID. Last recorded weight is 81.5 kg. Bowel Motility: FMS Labs Reviewed:PO4 4.8, Alb 2.5 Meds Noted: Folic Acid, Protonix, Lovenox, Rocephin. Skin: WNL Additional Notes: Patient remains on a NGT feedings of Jevity 1.5 at 55ml/hr. Tube feedings are being tolerated and providing 1815 kcal/84 gm protein/920 ml water. Flush 100 ml q 4 hours. Spoke [facility] hospitalist today, plans for spinal tap at some point. Agree with diet orders at this time. will monitor weight, labs, skin, diet orders, meds every Tuesday and Tuesday.
--- NOTE | 2024-10-30 12:39 | P.CDI_ITS ---
CDI Query Clarification Request Please clarify the status of the patient's anemia, if known. Anemia has been documented, please specify type of anemia if known: * Acute blood loss anemia * Chronic blood loss anemia * Anemia of chronic disease (CKD,neoplasm, other) * Aplastic anemia * Dilutional anemia * Iron Deficiency anemia * Pernicious anemia * Nutritional anemia (e.g., scorbutic anemia) * Other anemia * Unknown/unable to determine The medical chart reflects the following: (1) Anemia: Code(s): D64.9 - Anemia, unspecified Status: Acute (2) Thrombocytopenia: Code(s): D69.6 - Thrombocytopenia, unspecified Status: Acute Assessment and Plan: Patient with history of hypertension, hyperlipidemia and gout came into the hosp ital status post fall with mental status changes. Patient is a poor historian. CT chest abdomen pelvis showed no evidence of organ damage from the fall. There was no evidence of hepatosplenomegaly as well. Labs on admission showed hemoglobin of 9.1 dropped to 6.2 and now is 7.8. He has received blood transfusion as well. He denies any bleeding. Platelet count was [address]60 on admission now down to 34,000. Peripheral smear shows no schistocytes. Total bilirubin was normal at 0.6 but LDH was elevated at 449. Creatinine was 3 on admission now down to 1.5. Differential diagnosis include thrombotic microangiopathy, sepsis/UTI, drug-induced thrombocytopenia, chronic ITP and possibly heparin-induced thrombocytopenia and possibility of alcohol induced thrombocytopenia with myelosuppression. Mean platelet volume was elevated suggesting peripheral destruction. I will order antibodies for chronic ITP as well. Hit antibodies has already been ordered. His anemia could be secondary to renal insufficiency. Hemolysis is less likely with normal bilirubin. We will check Liyah test as well. I will check iron panel as well. I will give him Procrit injection today. I have discussed this case with the hospitalist. (7) Anemia: Code(s): D64.9 - Anemia, unspecified Status: Acute Assessment and Plan: Patient dropped his hemoglobin this morning to 6.2 from 9.1 on admission -10/18: status post 2 units of packed RBCs -stool occult is negative -vitamin B12 levels are normal, folic acid is low will substitute -iron panel looks normal -hemoglobin remained stable Hgb 10/17: 9.1, 10/18: 6.2, 6/8: 6.7 3 units total PRBC <Nida Garcia RN - Last Filed: 10/30/24 12:59> Clarified Diagnosis Clarified Diagnosis: patient was seen by credit front office developer and suspect anemia could be secondary to renal insufficiency. <Tevin Dickerson MD - Last Filed: 11/06/24 12:31>
--- NOTE | 2024-10-30 13:10 | PCPTNOTE ---
Attempted to see patient for PT, however patient was unable to be aroused to work with PT.
[2024-10-30] MEDS: SODIUM CHLORIDE 0.45% 1,000 ML 75 ML IV CONT ×4 (13:12→23:24)
[2024-10-30 14:00] VITALS: BP 145/83; PULSE 83; RESP 26; TEMP 36.5; O2SAT 98
--- NOTE | 2024-10-30 15:25 | P.PNIM_ITS ---
Progress Note: A&P Assessment and Plan (1) Shock: Code(s): R57.9 - Shock, unspecified Status: Acute Assessment and Plan: RESOLVED 10/17: EMS arrived at patient's house: he was found face down with, hypotensive with systolic in the 50s, patient given IV fluids in the ER, central line inserted, started on Levophed. CT head was negative. Chest x-ray with no focal infiltrate or effusion. CT chest abdomen pelvis with no acute findings. Face CT with extensive sinus disease with near complete opacification of the right maxillary sinus and dependently layering fluid in the bilateral sphenoid sinuses. Dental and periodontal disease with periapical lucency surrounding the posterior-most remaining right maxillary molar. -off Levophed since the morning of 10/18 -procalcitonin levels are at high -patient was started on cefepime and vancomycin which was discontinued since there was no nidus of infection -MRSA screen is negative, -10/17: Blood cultures negative-so far -no nidus of infection on either chest x-ray, CT chest abdomen and pelvis, UA was clear, -10/19: given low body temperature, elevated procalcitonin started on ceftriaxone empirically. Procalcitonin can also be raised in tissue injury -10/19: UA reflective of UTI, also given sinusitis on CT scan of the face, started patient on ceftriaxone since 10/19/2024. Urine culture not obtained. Will conclude 10/24/2019 Liquid stool. Could be tube feed related. C diff came back positive Started on vancomycin 10/23/2019 (2) Altered mental status: Qualifiers: Altered mental status type: disorientation Qualified Code(s): R41.0 - Disorientation, unspecified Code(s): R41.82 - Altered mental status, unspecified Status: Acute Assessment and Plan: Altered mental status is multifactorial could be related to hypovolemia, shock, hypotension, acute kidney injury, rhabdomyolysis -CT brain was negative for intracranial abnormalities -MRI cannot be performed as patient was in the [place] and may have sharpnel exposure according to his daughter -10/19: Repeat CT brain did not show any acute intracranial hemorrhage or suspicious mass effect, inflammatory sinus disease. -10/19: CT facial bones showed extensive sinus disease with near complete opacification of the right maxillary sinus and dependently layering fluid in the bilateral sphenoid sinuses. Dental and periodontal disease with periapical lucency surrounding the posterior most remaining right maxillary molar Despite improvement in metabolic issues he remains encephalopathic Will further evaluate with MRI brain and EEG. Neurology consultation Brain MRI in process EEG performed: No seizure activity noted. (3) Fall (on) (from) other stairs and steps, initial encounter: Code(s): W10.8XXA - Fall (on) (from) other stairs and steps, initial encounter Status: Acute Assessment and Plan: Patient was found on the ground face down unknown amount of time, unknown etiology -continue treat underlying cause -10/18: Echocardiogram showed EF of 60-65%, normal biventricular size and systolic function, no significant valvular abnormalities (4) Acute kidney injury: Code(s): N17.9 - Acute kidney failure, unspecified Status: Acute Assessment and Plan: Acute kidney injury likely related to hypotension, hypovolemia, shock, rhabdomyolysis -patient received 3 L IV fluid bolus in the ER -started on bicarb infusion -patient was hypernatremic on admission, -sodium levels trending down gradually currently on bicarb infusion per Nephrology -continue to monitor urine output, electrolytes and renal function -patient presented with creatinine of 3.0 (baseline 1.0 in October 2023 at [facility]) -urine lytes not reflective of prerenal picture, urine eosinophils are negative -CT scan of the abdomen and pelvis did not show any hydronephrosis -renal ultrasound: No hydronephrosis or renal calculi, no apparent, findings to suggest the presence of medical renal disease. Simple cyst within the right kidney -CK levels trending down on admission 5864 peaked to 8292. -appreciate Nephrology evaluation and recommendation Conjunctival chemosis noted. IV fluids stopped Already getting tube feeds at 55 cc an hour (5) Rhabdomyolysis: Qualifiers: Encounter type: initial encounter Rhabdomyolysis type: traumatic Qualified Code(s): T79.6XXA - Traumatic ischemia of muscle, initial encounter Code(s): M62.82 - Rhabdomyolysis Status: Acute Assessment and Plan: Rhabdomyolysis likely related to being down on the ground for unknown amount of time -patient has been given 3 L IV fluids in the ER plus 500 mL of LR bolus in the ICU on 10/18. Patient seems to be adequately fluid-resuscitated -continue IV fluids per Nephrology CK levels trending down on admission 5864 peaked to 8292. (6) Electrolyte imbalance: Code(s): E87.8 - Other disorders of electrolyte and fluid balance, not elsewhere classified Status: Acute Assessment and Plan: Magnesium repleted (7) Anemia: Code(s): D64.9 - Anemia, unspecified Status: Acute Assessment and Plan: Patient dropped his hemoglobin this morning to 6.2 from 9.1 on admission -10/18: status post 2 units of packed RBCs -stool occult is negative -vitamin B12 levels are normal, folic acid is low will substitute -iron panel looks normal -hemoglobin remained stable (8) Thrombocytopenia: Code(s): D69.6 - Thrombocytopenia, unspecified Status: Acute Assessment and Plan: Thrombocytopenia with platelet counts of 62 this morning, 91 on admission -10/18: status post 1 unit of platelets -INR 1.2 on admission -platelets remain low, continue to monitor Does have history of chronic alcohol abuse per family. No baseline available Concern for TTP. Hematology consult Will Also order hit panel Plan 69 y/o male was found after he fell under stairs by his family, patient had AMS was not able to provide details ROS or history, patient had CT was normal upon arrival, as well his MRI of Brain for any acute injury, patient. upon arrival patient hgb was 9.1 and dropped to 6.2 without and GI bleed, patient was seen by mathematics academic chair and suspect anemia 2/2 renal dysfunction, and work up is in progress, also on admission patient had elevated CK levels of 5864 most likely 2/2 fall and don't know how long patient was on the ground after fall however his CK levels today are 189 and his ALEJANDRO has improved and patient is seen by doctor of dental surgery, patient had dysphagia on NG tube feeding consulted GI for PEG however patient platelets were low in 37 today is 234 suspect most likely 2/2 alcohol abuse, seen by mathematics academic chair and further work up is in progress, patient lungs sounded congested CXR concerning for pneumonia being treated with Cefepime and Zithromax, blood culture no growth so far, and follow up. patient is found to C diff diarrhea his stools liquidity, patient hgb drop to 6.7 on 10/28 there is no obvious bleeding but stool hemoccult was positive, was seen GI, patient anemian does not warrant any GI workup, will monitor patient does not provide much ROS, today discussed the case with the neurologist recommended spinal tap, the neurologist called the patient daughter gave updates, and got the consent for LP, patient is schedule for LP today, patient still does not provide any ROS, treated for C diff and his stools are liquidity. will follow up on LP and discuss with the neurologist. DVT prophylaxis: SCDs, no chemoprophylaxis due to thrombocytopenia Stress ulcer prophylaxis: Protonix IV q.12 hours Nutrition: NG tube placed on 10/19: Started on tube feeds and tolerating Code Status: Full code Subjective Date/time seen: 10/30/24 15:25 Interval history: 69 y/o male was found after he fell under stairs by his family, patient had AMS was not able to provide details ROS or history, patient had CT was normal upon arrival, as well his MRI of Brain for any acute injury, patient. upon arrival patient hgb was 9.1 and dropped to 6.2 without and GI bleed, patient was seen by mathematics academic chair and suspect anemia 2/2 renal dysfunction, and work up is in progress, also on admission patient had elevated CK levels of 5864 most likely 2/2 fall and don't know how long patient was on the ground after fall however his CK levels today are 189 and his ALEJANDRO has improved and patient is seen by doctor of dental surgery, patient had dysphagia on NG tube feeding consulted GI for PEG however patient platelets were low in 37 today is 234 suspect most likely 2/2 a lcohol abuse, seen by mathematics academic chair and further work up is in progress, patient lungs sounded congested CXR concerning for pneumonia being treated with Cefepime and Zithromax, blood culture no growth so far, and follow up. patient is found to C diff diarrhea his stools liquidity, patient hgb drop to 6.7 on 10/28 there is no obvious bleeding but stool hemoccult was positive, was seen GI, patient anemian does not warrant any GI workup, will monitor patient does not provide much ROS, today discussed the case with the neurologist recommended spinal tap, the neurologist called the patient daughter gave updates, and got the consent for LP, patient is schedule for LP today, patient still does not provide any ROS, treated for C diff and his stools are liquidity. will follow up on LP and discuss with the neurologist. Review of Systems Review of Systems: ROS unobtainable: Yes unobtainable due to medical condition and unobtainable due to mental status Exam Narrative: Patient is comfortable, NAD HEENT: eyes are clear and none icteric, NG tube in place LUNGS:CTA HEART: RR S1S2 ABD: BS+, Soft and nontender Lower extremities: no edema SKIN: nonjaundiced Neuro: grossly intact. Objective Data Vital Signs Vital Signs: Vital Signs - 24 hr 10/29/24 20:00 10/29/24 20:09 10/30/24 05:08 Temperature 36.6 C 36.5 C Pulse Rate 76 76 79 Respiratory Rate 18 18 18 Blood Pressure 145/70 H 152/79 H Pulse Oximetry 100 100 98 Oxygen Delivery Room Air Fraction of Inspired Oxygen 21 10/30/24 05:38 10/30/24 14:00 Temperature 36.5 C Pulse Rate 79 83 Respiratory Rate 18 26 H Blood Pressure 145/83 H Pulse Oximetry 98 Oxygen Delivery Fraction of Inspired Oxygen Intake/Output Intake/Output: Intake & Output 10/27/24 10/28/24 10/29/24 10/30/24 23:59 23:59 23:59 23:59 Intake Total 4218 4700.8 5408 1000 Output Total 4050 1550 4025 2400 Balance 168 3150.8 1383 -1400 Meds/Results Medications: Active Medications Generic Name Dose Route Start Last Admin Trade Name Freq PRN Reason Stop Dose Admin Dextrose 12.5 gm 10/17/24 21:26 10/30/24 05:55 Dextrose 50% 25 Gm/50 Ml Syringe IV PUSH 12.5 gm PRN PRN Administration Hypoglycemia Protocol Enoxaparin Sodium 30 mg 10/18/24 09:00 Enoxaparin 30 Mg/0.3 Ml Syringe SUB-Q DAILY JHONY Folic Acid 1 mg 10/24/24 09:00 10/30/24 10:16 Folic Acid 1 Mg Tablet FEED TUBE 1 mg QAM JHONY Administration Glucagon 1 mg 10/17/24 21:26 Glucagon For Inj 1 Mg Vial IM PRN PRN Hypoglycemia Protocol Glucose 15 gm 10/17/24 21:26 Glucose Oral Gel 15 Gm Of Glucse In 37.5 Gm Tube PO PRN PRN Hypoglycemia Protocol Dextrose 1,000 mls @ 100 mls/hr 10/17/24 21:26 Dextrose 5% 1,000 Ml IVPB PRN PRN Hypoglycemia Protocol Sodium Chloride 1,000 mls @ 75 mls/hr 10/22/24 20:40 10/30/24 13:12 Sodium Chloride 0.45% IV CONT 75 mls/hr .[id number] JHONY Administration Pantoprazole Sodium 40 mg 10/18/24 21:00 10/30/24 10:16 Pantoprazole Sodium Iv 40 Mg Vial IV PUSH 40 mg Q12HR JHONY Administration Sodium Chloride 6 ml 10/30/24 05:00 Sodium Chlor 3% 15 Ml Neb (Respiratory Therapy) INHALATION 11/01/24 05:01 DAILY@0500 JHONY Thiamine HCl 100 mg 10/24/24 09:00 10/30/24 10:16 Thiamine Hcl 100 Mg Tablet FEED TUBE 100 mg QAM JHONY Administration Vancomycin HCl 125 mg 10/22/24 15:00 10/30/24 13:12 Vancomycin Oral 125 Mg/2.5 Ml Syrup FEED TUBE 11/01/24 12:01 125 mg Q6HR JHONY Administration Radiology Results: ITS Impressions Chest/Abdomen/Pelvis CT 10/17/24 10:46 IMPRESSION: No hollow or solid organ injury. No acute fractures. Head CT 10/19/24 09:19 Impression: No acute intracranial hemorrhage or suspicious mass effect. Inflammatory sinus disease. Face CT 10/19/24 09:39 IMPRESSION: 1. Extensive sinus disease with near complete opacification of the right maxillary sinus and dependently layering fluid in the bilateral sphenoid sinuses. Correlate clinically for acute sinusitis. 2. Dental and periodontal disease with periapical lucency surrounding the posterior most remaining right maxillary molar. Renal Ultrasound 10/19/24 09:48 IMPRESSION: No hydronephrosis or renal calculi. No parenchymal findings to suggest the presence of medical renal disease. Simple cysts within the right kidney, for which no further follow-up is needed. Abdomen X-Ray 10/19/24 11:15 IMPRESSION: Nasogastric tube in good position and ready for immediate use. Brain MRI 10/24/24 14:22 IMPRESSION: 1. Age-related changes the brain. No acute intracranial process. 2. Prominent sinus disease with fluid nearly filling the right maxillary sinus and layering dependently in the bilateral sphenoid sinuses. Correlate clinically for acute sinusitis. Chest X-Ray 10/29/24 14:04 Impression: Clear lungs. NG tube in place. Labs Labs: Laboratory Results - last 24 hr 10/29/24 10/29/24 10/30/24 17:58 23:52 04:53 WBC 6.4 RBC 2.74 L Hgb 7.9 L Hct 25.1 L MCV 91.6 MCH 28.8 MCHC 31.5 L RDW 25.0 H Plt Count 282 MPV 11.6 H Immature Gran % (Auto) 0.8 H Neut % (Auto) 51.9 Lymph % (Auto) 23.8 [place] % (Auto) 18.2 H Eos % (Auto) 5.0 H Baso % (Auto) 0.3 Lymph # (Auto) 1.53 [place] # (Auto) 1.2 H Eos # (Auto) 0.3 Baso # (Auto) 0.0 Abs Immat Gran (auto) 0.05 H Absolute Neuts (auto) 3.3 Absolute Nucleated RBC 0.000 Band Neutrophils % Not Reportable Nucleated RBC % 0.0 Platelet Estimate Adequate Hypochromasia 1+ Anisocytosis 2+ Microcytosis 1+ Crenated Cell 1+ Schistocytes None seen Sodium 139 Potassium 4.7 Chloride 109 H Carbon Dioxide 24 Anion Gap 6 BUN 19 Creatinine 0.96 Estim Creat Clear Calc 61 Estimated GFR > 60 Glucose 77 POC Capillary Glucose 83 84 Calcium 8.7 Magnesium 1.7 Total Bilirubin 0.8 AST 37 ALT 20 Alkaline Phosphatase 142 H Total Creatine Kinase 79 Total Protein 6.0 L Albumin 2.5 L 10/30/24 10/30/24 10/30/24 05:12 06:20 11:52 WBC RBC Hgb Hct MCV MCH MCHC RDW Plt Count MPV Immature Gran % (Auto) Neut % (Auto) Lymph % (Auto) [place] % (Auto) Eos % (Auto) Baso % (Auto) Lymph # (Auto) [place] # (Auto) Eos # (Auto) Baso # (Auto) Abs Immat Gran (auto) Absolute Neuts (auto) Absolute Nucleated RBC Band Neutrophils % Nucleated RBC % Platelet Estimate Hypochromasia Anisocytosis Microcytosis Crenated Cell Schistocytes Sodium Potassium Chloride Carbon Dioxide Anion Gap BUN Creatinine Estim Creat Clear Calc Estimated GFR Glucose POC Capillary Glucose 71 99 73 Calcium Magnesium Total Bilirubin AST ALT Alkaline Phosphatase Total Creatine Kinase Total Protein Albumin Quality VTE Prophylaxis VTE prophylaxis: mechanical ordered
[2024-10-30 18:51] LABS: INR 1.2; Prothrombin Time 15.0 Seconds (11.1-14.7)
[2024-10-30 18:52] LABS: Partial Thromboplastin Time 39.0 Seconds (22.3-36.8)
[2024-10-30 20:15] VITALS: BP 146/79; PULSE 80; RESP 18; TEMP 36.4; O2SAT 100
[2024-10-30 23:24] LABS: Platelet Antibody, Direct IgG NEGATIVE (NEGATIVE)
[2024-10-31] VITALS (8 sets, daily range): BP systolic 129–157; BP diastolic 63–90; PULSE 77–100; RESP 14–20; TEMP 36.3–36.6; O2SAT 95–100
[2024-10-31] MEDS: SODIUM CHLOR 3% 15 ML NEB (RESPIRATORY THERAPY) 6 ML INHALATION ×2 (04:33)
[2024-10-31 05:13] LABS: Hematocrit 25.5 % (42.0-52.0); Hemoglobin 8.0 g/dL (14.0-18.0); Immature Granulocyte Percent A 0.4 % (0-0.5); Lymphocytes Absolute Auto 1.73 K/mm3 (0.9-3.2); Mean Corpuscular HGB Conc 31.4 g/dl (32-36); Mean Corpuscular Hemoglobin 29.0 pg (26-34); Mean Corpuscular Volume 92.4 fl (80-100); Nucleated Red Blood Cells Absolute Auto 0.000 K/mm3 (0.0-0.012); Nucleated Red Blood Cells Perc 0.0 % (0.0-0.2); Platelet Count Result 275 k/mm3 (150-375); Red Blood Count 2.76 M/mm3 (4.6-6.20); White Blood Count 6.7 K/mm3 (4.5-10.0)
[2024-10-31] MEDS: VANCOMYCIN ORAL 125 MG/2.5 ML SYRUP FEED TUBE ×3 (05:22→20:15)
[2024-10-31 05:30] LABS: Alanine Aminotransferase 20 U/L (6-50); Albumin Level 2.6 g/dL (3.5-5.1); Alkaline Phosphatase 146 U/L (38-126); Anion Gap 6 mmol/L (4-12); Aspartate Amino Transferase 36 U/L (17-59); Bilirubin,Total 0.6 mg/dL (0.2-1.3); Blood Urea Nitrogen 18 mg/dL (9-20); Calcium 8.3 mg/dL (8.4-10.2); Carbon Dioxide 23 mmol/L (22-30); Chloride 108 mmol/L (98-107); Creatine Kinase 63 U/L (55-170); Estimated CRCL calculation 60 ml/min; Estimated Glomerular Filt Rate > 60; Glucose 102 mg/dL (65-110); Magnesium 1.6 mg/dL (1.6-2.3); Potassium 4.8 mmol/L (3.4-5.0); Sodium 137 mmol/L (137-145); Total Protein 6.0 g/dL (6.3-8.2)
[2024-10-31 05:42] LABS: Band Neutrophils Percent 0 % (0-6)
[2024-10-31 05:43] LABS: Anisocytosis 1+; Hypochromasia 1+; Ovalocytes 1+; Schistocytes None Seen; Target Cells 1+
[2024-10-31] MEDS: PANTOPRAZOLE SODIUM IV 40 MG VIAL IV PUSH ×2 (09:35→20:15)
[2024-10-31] MEDS: FOLIC ACID 1 MG TABLET FEED TUBE (09:35)
[2024-10-31] MEDS: THIAMINE HCL 100 MG TABLET FEED TUBE (09:35)
[2024-10-31] MEDS: SODIUM CHLORIDE 0.45% 1,000 ML 75 ML IV CONT (12:14)
--- NOTE | 2024-10-31 16:02 | P.PNGI_ITS ---
Progress Note: A&P Assessment and Plan (1) Metabolic encephalopathy: Code(s): G93.41 - Metabolic encephalopathy Status: Acute Assessment and Plan: The patient is deemed a good candidate for PEG placement. Request for consent put in the chart today. Please notify us when family is available to sign the consent. Subjective Date/time seen: 10/31/24 16:02 Objective Data Vital Signs Vital Signs: Vital Signs - 24 hr 10/30/24 20:00 10/30/24 20:15 10/31/24 03:40 Temperature 97.6 F 97.7 F Pulse Rate 80 79 Respiratory Rate 18 18 Blood Pressure 146/79 H 157/88 H Pulse Oximetry 100 100 Oxygen Delivery Room Air 10/31/24 04:34 10/31/24 04:53 10/31/24 08:00 Temperature Pulse Rate 77 83 Respiratory Rate 18 18 Blood Pressure Pulse Oximetry Oxygen Delivery Room Air 10/31/24 14:00 Temperature 97.4 F L Pulse Rate 81 Respiratory Rate 18 Blood Pressure 141/80 H Pulse Oximetry 100 Oxygen Delivery Intake/Output Intake/Output: Intake & Output 10/28/24 10/29/24 10/30/24 10/31/24 23:59 23:59 23:59 23:59 Intake Total 4700.8 5408 1765.1 2022.5 Output Total 1550 4025 4400 3850 Balance 3150.8 1383 -2634.9 -1827.5 Meds/Results Medications: Active Medications Generic Name Dose Route Start Last Admin Trade Name Freq PRN Reason Stop Dose Admin Dextrose 12.5 gm 10/17/24 21:26 10/30/24 05:55 Dextrose 50% 25 Gm/50 Ml Syringe IV PUSH 12.5 gm PRN PRN Administration Hypoglycemia Protocol Enoxaparin Sodium 30 mg 10/18/24 09:00 Enoxaparin 30 Mg/0.3 Ml Syringe SUB-Q DAILY JHONY Folic Acid 1 mg 10/24/24 09:00 10/31/24 09:35 Folic Acid 1 Mg Tablet FEED TUBE 1 mg QAM JHONY Administration Glucagon 1 mg 10/17/24 21:26 Glucagon For Inj 1 Mg Vial IM PRN PRN Hypoglycemia Protocol Glucose 15 gm 10/17/24 21:26 Glucose Oral Gel 15 Gm Of Glucse In 37.5 Gm Tube PO PRN PRN Hypoglycemia Protocol Dextrose 1,000 mls @ 100 mls/hr 10/17/24 21:26 Dextrose 5% 1,000 Ml IVPB PRN PRN Hypoglycemia Protocol Sodium Chloride 1,000 mls @ 75 mls/hr 10/22/24 20:40 10/31/24 12:14 Sodium Chloride 0.45% IV CONT 75 mls/hr .[id number] JHONY Administration Pantoprazole Sodium 40 mg 10/18/24 21:00 10/31/24 09:35 Pantoprazole Sodium Iv 40 Mg Vial IV PUSH 40 mg Q12HR JHONY Administration Sodium Chloride 6 ml 10/30/24 05:00 10/31/24 04:33 Sodium Chlor 3% 15 Ml Neb (Respiratory Therapy) INHALATION 11/01/24 05:01 6 ml DAILY@0500 JHONY Administration Thiamine HCl 100 mg 10/24/24 09:00 10/31/24 09:35 Thiamine Hcl 100 Mg Tablet FEED TUBE 100 mg QAM JHONY Administration Vancomycin HCl 125 mg 10/22/24 15:00 10/31/24 12:15 Vancomycin Oral 125 Mg/2.5 Ml Syrup FEED TUBE 11/01/24 12:01 125 mg Q6HR JHONY Administration Radiology Results: ITS Impressions Chest/Abdomen/Pelvis CT 10/17/24 10:46 IMPRESSION: No hollow or solid organ injury. No acute fractures. Head CT 10/19/24 09:19 Impression: No acute intracranial hemorrhage or suspicious mass effect. Inflammatory sinus disease. Face CT 10/19/24 09:39 IMPRESSION: 1. Extensive sinus disease with near complete opacification of the right maxillary sinus and dependently layering fluid in the bilateral sphenoid sinuses. Correlate clinically for acute sinusitis. 2. Dental and periodontal disease with periapical lucency surrounding the posterior most remaining right maxillary molar. Renal Ultrasound 10/19/24 09:48 IMPRESSION: No hydronephrosis or renal calculi. No parenchymal findings to suggest the presence of medical renal disease. Simple cysts within the right kidney, for which no further follow-up is needed. Abdomen X-Ray 10/19/24 11:15 IMPRESSION: Nasogastric tube in good position and ready for immediate use. Brain MRI 10/24/24 14:22 IMPRESSION: 1. Age-related changes the brain. No acute intracranial process. 2. Prominent sinus disease with fluid nearly filling the right maxillary sinus and layering dependently in the bilateral sphenoid sinuses. Correlate clinically for acute sinusitis. Chest X-Ray 10/29/24 14:04 Impression: Clear lungs. NG tube in place. Labs Labs: Laboratory Results - last 24 hr 10/23/24 10/30/24 10/30/24 20:17 18:05 18:31 WBC RBC Hgb Hct MCV MCH MCHC RDW Plt Count MPV Immature Gran % (Auto) Neut % (Auto) Lymph % (Auto) [place] % (Auto) Eos % (Auto) Baso % (Auto) Lymph # (Auto) [place] # (Auto) Eos # (Auto) Baso # (Auto) Abs Immat Gran (auto) Absolute Neuts (auto) Absolute Nucleated RBC Band Neutrophils % Nucleated RBC % Platelet Estimate Hypochromasia Anisocytosis Target Cells Ovalocytes Schistocytes PT 15.0 H INR 1.2 APTT 39.0 H Sodium Potassium Chloride Carbon Dioxide Anion Gap BUN Creatinine Estim Creat Clear Calc Estimated GFR Glucose POC Capillary Glucose 82 Calcium Magnesium Total Bilirubin AST ALT Alkaline Phosphatase Total Creatine Kinase Total Protein Albumin Direct Plt-Bound IgG Ab Negative 10/31/24 10/31/24 10/31/24 00:06 03:54 05:02 WBC 6.7 RBC 2.76 L Hgb 8.0 L Hct 25.5 L MCV 92.4 MCH 29.0 MCHC 31.4 L RDW 24.5 H Plt Count 275 MPV 10.9 H Immature Gran % (Auto) 0.4 Neut % (Auto) 48.0 Lymph % (Auto) 25.9 [place] % (Auto) 20.1 H Eos % (Auto) 5.2 H Baso % (Auto) 0.4 Lymph # (Auto) 1.73 [place] # (Auto) 1.3 H Eos # (Auto) 0.4 H Baso # (Auto) 0.0 Abs Immat Gran (auto) 0.03 Absolute Neuts (auto) 3.2 Absolute Nucleated RBC 0.000 Band Neutrophils % 0 Nucleated RBC % 0.0 Platelet Estimate Adequate Hypochromasia 1+ Anisocytosis 1+ Target Cells 1+ Ovalocytes 1+ Schistocytes None seen PT INR APTT Sodium 137 Potassium 4.8 Chloride 108 H Carbon Dioxide 23 Anion Gap 6 BUN 18 Creatinine 0.98 Estim Creat Clear Calc 60 Estimated GFR > 60 Glucose 102 POC Capillary Glucose 98 97 Calcium 8.3 L Magnesium 1.6 Total Bilirubin 0.6 AST 36 ALT 20 Alkaline Phosphatase 146 H Total Creatine Kinase 63 Total Protein 6.0 L Albumin 2.6 L Direct Plt-Bound IgG Ab 10/31/24 10/31/24 07:52 11:43 WBC RBC Hgb Hct MCV MCH MCHC RDW Plt Count MPV Immature Gran % (Auto) Neut % (Auto) Lymph % (Auto) [place] % (Auto) Eos % (Auto) Baso % (Auto) Lymph # (Auto) [place] # (Auto) Eos # (Auto) Baso # (Auto) Abs Immat Gran (auto) Absolute Neuts (auto) Absolute Nucleated RBC Band Neutrophils % Nucleated RBC % Platelet Estimate Hypochromasia Anisocytosis Target Cells Ovalocytes Schistocytes PT INR APTT Sodium Potassium Chloride Carbon Dioxide Anion Gap BUN Creatinine Estim Creat Clear Calc Estimated GFR Glucose POC Capillary Glucose 102 101 Calcium Magnesium Total Bilirubin AST ALT Alkaline Phosphatase Total Creatine Kinase Total Protein Albumin Direct Plt-Bound IgG Ab
--- NOTE | 2024-10-31 16:35 | CY_PTH ---
PATIENT: Tip Calvo LOC: [id number] U#:[id number] AGE/SX: 69/M ROOM: 240 RE10/17/[address]: Reyna Lorenzana MD : [id number] BED: 01 DIS: 12/14/2024 SPEC #: [id number] RECD: 11/01/24 07:36 STATUS: BRENDANJacinto REQ #: [id number] NAILA: 10/31/24 16:[address]: Edna Levine DEPT: [facility] Cytology RECD BY: Delores Houser ENTERED: 11/01/24 07:36 SP TYPE: Cytology OTHR DR: MD Tevin Vargas MD Sriraj T. Kanungo, MD Zohair H. Karmally, MD VALLIANT Oren Bojorquez MD Tissues: A - CSF Procedures: Cytopathology Cytospin
--- NOTE | 2024-10-31 18:15 | P.PNIM_ITS ---
Progress Note: A&P Assessment and Plan (1) Shock: Code(s): R57.9 - Shock, unspecified Status: Acute Assessment and Plan: RESOLVED 10/17: EMS arrived at patient's house: he was found face down with, hypotensive with systolic in the 50s, patient given IV fluids in the ER, central line inserted, started on Levophed. CT head was negative. Chest x-ray with no focal infiltrate or effusion. CT chest abdomen pelvis with no acute findings. Face CT with extensive sinus disease with near complete opacification of the right maxillary sinus and dependently layering fluid in the bilateral sphenoid sinuses. Dental and periodontal disease with periapical lucency surrounding the posterior-most remaining right maxillary molar. -off Levophed since the morning of 10/18 -procalcitonin levels are at high -patient was started on cefepime and vancomycin which was discontinued since there was no nidus of infection -MRSA screen is negative, -10/17: Blood cultures negative-so far -no nidus of infection on either chest x-ray, CT chest abdomen and pelvis, UA was clear, -10/19: given low body temperature, elevated procalcitonin started on ceftriaxone empirically. Procalcitonin can also be raised in tissue injury -10/19: UA reflective of UTI, also given sinusitis on CT scan of the face, started patient on ceftriaxone since 10/19/2024. Urine culture not obtained. Will conclude 10/24/2019 Liquid stool. Could be tube feed related. C diff came back positive Started on vancomycin 10/23/2019 (2) Altered mental status: Qualifiers: Altered mental status type: disorientation Qualified Code(s): R41.0 - Disorientation, unspecified Code(s): R41.82 - Altered mental status, unspecified Status: Acute Assessment and Plan: Altered mental status is multifactorial could be related to hypovolemia, shock, hypotension, acute kidney injury, rhabdomyolysis -CT brain was negative for intracranial abnormalities -MRI cannot be performed as patient was in the [place] and may have sharpnel exposure according to his daughter -10/19: Repeat CT brain did not show any acute intracranial hemorrhage or suspicious mass effect, inflammatory sinus disease. -10/19: CT facial bones showed extensive sinus disease with near complete opacification of the right maxillary sinus and dependently layering fluid in the bilateral sphenoid sinuses. Dental and periodontal disease with periapical lucency surrounding the posterior most remaining right maxillary molar Despite improvement in metabolic issues he remains encephalopathic Will further evaluate with MRI brain and EEG. Neurology consultation Brain MRI in process EEG performed: No seizure activity noted. (3) Fall (on) (from) other stairs and steps, initial encounter: Code(s): W10.8XXA - Fall (on) (from) other stairs and steps, initial encounter Status: Acute Assessment and Plan: Patient was found on the ground face down unknown amount of time, unknown etiology -continue treat underlying cause -10/18: Echocardiogram showed EF of 60-65%, normal biventricular size and systolic function, no significant valvular abnormalities (4) Acute kidney injury: Code(s): N17.9 - Acute kidney failure, unspecified Status: Acute Assessment and Plan: Acute kidney injury likely related to hypotension, hypovolemia, shock, rhabdomyolysis -patient received 3 L IV fluid bolus in the ER -started on bicarb infusion -patient was hypernatremic on admission, -sodium levels trending down gradually currently on bicarb infusion per Nephrology -continue to monitor urine output, electrolytes and renal function -patient presented with creatinine of 3.0 (baseline 1.0 in October 2023 at [facility]) -urine lytes not reflective of prerenal picture, urine eosinophils are negative -CT scan of the abdomen and pelvis did not show any hydronephrosis -renal ultrasound: No hydronephrosis or renal calculi, no apparent, findings to suggest the presence of medical renal disease. Simple cyst within the right kidney -CK levels trending down on admission 5864 peaked to 8292. -appreciate Nephrology evaluation and recommendation Conjunctival chemosis noted. IV fluids stopped Already getting tube feeds at 55 cc an hour (5) Rhabdomyolysis: Qualifiers: Encounter type: initial encounter Rhabdomyolysis type: traumatic Qualified Code(s): T79.6XXA - Traumatic ischemia of muscle, initial encounter Code(s): M62.82 - Rhabdomyolysis Status: Acute Assessment and Plan: Rhabdomyolysis likely related to being down on the ground for unknown amount of time -patient has been given 3 L IV fluids in the ER plus 500 mL of LR bolus in the ICU on 10/18. Patient seems to be adequately fluid-resuscitated -continue IV fluids per Nephrology CK levels trending down on admission 5864 peaked to 8292. (6) Electrolyte imbalance: Code(s): E87.8 - Other disorders of electrolyte and fluid balance, not elsewhere classified Status: Acute Assessment and Plan: Magnesium repleted (7) Anemia: Code(s): D64.9 - Anemia, unspecified Status: Acute Assessment and Plan: Patient dropped his hemoglobin this morning to 6.2 from 9.1 on admission -10/18: status post 2 units of packed RBCs -stool occult is negative -vitamin B12 levels are normal, folic acid is low will substitute -iron panel looks normal -hemoglobin remained stable (8) Thrombocytopenia: Code(s): D69.6 - Thrombocytopenia, unspecified Status: Acute Assessment and Plan: Thrombocytopenia with platelet counts of 62 this morning, 91 on admission -10/18: status post 1 unit of platelets -INR 1.2 on admission -platelets remain low, continue to monitor Does have history of chronic alcohol abuse per family. No baseline available Concern for TTP. Hematology consult Will Also order hit panel Plan 69 y/o male was found after he fell under stairs by his family, patient had AMS was not able to provide details ROS or history, patient had CT was normal upon arrival, as well his MRI of Brain for any acute injury, patient. upon arrival patient hgb was 9.1 and dropped to 6.2 without and GI bleed, patient was seen by line construction supervisor and suspect anemia 2/2 renal dysfunction, and work up is in progress, also on admission patient had elevated CK levels of 5864 most likely 2/2 fall and don't know how long patient was on the ground after fall however his CK levels today are 189 and his ALEJANDRO has improved and patient is seen by picker machine operator, patient had dysphagia on NG tube feeding consulted GI for PEG however patient platelets were low in 37 today is 234 suspect most likely 2/2 alcohol abuse, seen by line construction supervisor and further work up is in progress, patient lungs sounded congested CXR concerning for pneumonia being treated with Cefepime and Zithromax, blood culture no growth so far, and follow up. patient is found to C diff diarrhea his stools liquidity, patient hgb drop to 6.7 on 10/28 there is no obvious bleeding but stool hemoccult was positive, was seen GI, patient anemian does not warrant any GI workup, will monitor patient does not provide much ROS, today discussed the case with the neurologist recommended spinal tap, the neurologist called the patient daughter gave updates, and got the consent for LP, patient is schedule for LP today, patient still does not provide any ROS, treated for C diff and his stools are liquidity. will follow up on LP and discuss with the neurologist. today patient had LP, will follow up, patient is little more awake today, patient is scheduled to have PEG place tomorrow, will follow up. stool are still liquidity. DVT prophylaxis: SCDs, no chemoprophylaxis due to thrombocytopenia Stress ulcer prophylaxis: Protonix IV q.12 hours Nutrition: NG tube placed on 10/19: Started on tube feeds and tolerating Code Status: Full code Subjective Date/time seen: 10/31/24 18:15 Interval history: 69 y/o male was found after he fell under stairs by his family, patient had AMS was not able to provide details ROS or history, patient had CT was normal upon arrival, as well his MRI of Brain for any acute injury, patient. upon arrival patient hgb was 9.1 and dropped to 6.2 without and GI bleed, patient was seen by line construction supervisor and suspect anemia 2/2 renal dysfunction, and work up is in progress, also on admission patient had elevated CK levels of 5864 most likely 2/2 fall and don't know how long patient was on the ground after fall however his CK levels today are 189 and his ALEJANDRO has improved and patient is seen by picker machine operator, patient had dysphagia on NG tube feeding consulted GI for PEG however patient platelets were low in 37 today is 234 suspect most likely 2/2 alcohol abuse, seen by line construction supervisor and further work up is in progress, patient lungs sounded congested CXR concerning for pneumonia being treated with Cefepime and Zithromax, blood culture no growth so far, and follow up. patient i s found to C diff diarrhea his stools liquidity, patient hgb drop to 6.7 on 10/28 there is no obvious bleeding but stool hemoccult was positive, was seen GI, patient anemian does not warrant any GI workup, will monitor patient does not provide much ROS, today discussed the case with the neurologist recommended spinal tap, the neurologist called the patient daughter gave updates, and got the consent for LP, patient is schedule for LP today, patient still does not provide any ROS, treated for C diff and his stools are liquidity. will follow up on LP and discuss with the neurologist. today patient had LP, will follow up, patient is little more awake today, patient is scheduled to have PEG place tomorrow, will follow up. stool are still liquidity. Review of Systems Review of Systems: All systems reviewed & are unremarkable except as noted in HPI and below ( Limited, A&O x1, unreliable) ROS unobtainable: Yes unobtainable due to medical condition and unobtainable due to mental status Exam Narrative: Patient is comfortable, NAD HEENT: eyes are clear and none icteric, NG tube in place LUNGS:CTA HEART: RR S1S2 ABD: BS+, Soft and nontender Lower extremities: no edema SKIN: nonjaundiced Neuro: grossly intact. Objective Data Vital Signs Vital Signs: Vital Signs - 24 hr 10/30/24 20:00 10/30/24 20:15 10/31/24 03:40 Temperature 36.4 C 36.5 C Pulse Rate 80 79 Respiratory Rate 18 18 Blood Pressure 146/79 H 157/88 H Pulse Oximetry 100 100 Oxygen Delivery Room Air 10/31/24 04:34 10/31/24 04:53 10/31/24 08:00 Temperature Pulse Rate 77 83 Respiratory Rate 18 18 Blood Pressure Pulse Oximetry Oxygen Delivery Room Air 10/31/24 14:00 10/31/24 17:21 10/31/24 17:21 Temperature 36.3 C L Pulse Rate 81 82 92 Respiratory Rate 18 18 18 Blood Pressure 141/80 H 129/63 138/81 Pulse Oximetry 100 99 100 Oxygen Delivery Intake/Output Intake/Output: Intake & Output 10/28/24 10/29/24 10/30/24 10/31/24 23:59 23:59 23:59 23:59 Intake Total 4700.8 5408 1765.1 2022.5 Output Total 1550 4025 4400 3850 Balance 3150.8 1383 -2634.9 -1827.5 Meds/Results Medications: Active Medications Generic Name Dose Route Start Last Admin Trade Name Freq PRN Reason Stop Dose Admin Dextrose 12.5 gm 10/17/24 21:26 10/30/24 05:55 Dextrose 50% 25 Gm/50 Ml Syringe IV PUSH 12.5 gm PRN PRN Administration Hypoglycemia Protocol Enoxaparin Sodium 30 mg 10/18/24 09:00 Enoxaparin 30 Mg/0.3 Ml Syringe SUB-Q DAILY JHONY Folic Acid 1 mg 10/24/24 09:00 10/31/24 09:35 Folic Acid 1 Mg Tablet FEED TUBE 1 mg QAM JHONY Administration Glucagon 1 mg 10/17/24 21:26 Glucagon For Inj 1 Mg Vial IM PRN PRN Hypoglycemia Protocol Glucose 15 gm 10/17/24 21:26 Glucose Oral Gel 15 Gm Of Glucse In 37.5 Gm Tube PO PRN PRN Hypoglycemia Protocol Dextrose 1,000 mls @ 100 mls/hr 10/17/24 21:26 Dextrose 5% 1,000 Ml IVPB PRN PRN Hypoglycemia Protocol Sodium Chloride 1,000 mls @ 75 mls/hr 10/22/24 20:40 10/31/24 12:14 Sodium Chloride 0.45% IV CONT 75 mls/hr .[id number] JHONY Administration Pantoprazole Sodium 40 mg 10/18/24 21:00 10/31/24 09:35 Pantoprazole Sodium Iv 40 Mg Vial IV PUSH 40 mg Q12HR JHONY Administration Sodium Chloride 6 ml 10/30/24 05:00 10/31/24 04:33 Sodium Chlor 3% 15 Ml Neb (Respiratory Therapy) INHALATION 11/01/24 05:01 6 ml DAILY@0500 JHONY Administration Thiamine HCl 100 mg 10/24/24 09:00 10/31/24 09:35 Thiamine Hcl 100 Mg Tablet FEED TUBE 100 mg QAM JHONY Administration Vancomycin HCl 125 mg 10/22/24 15:00 10/31/24 12:15 Vancomycin Oral 125 Mg/2.5 Ml Syrup FEED TUBE 11/01/24 12:01 125 mg Q6HR JHONY Administration Radiology Results: ITS Impressions Chest/Abdomen/Pelvis CT 10/17/24 10:46 IMPRESSION: No hollow or solid organ injury. No acute fractures. Head CT 10/19/24 09:19 Impression: No acute intracranial hemorrhage or suspicious mass effect. Inflammatory sinus disease. Face CT 10/19/24 09:39 IMPRESSION: 1. Extensive sinus disease with near complete opacification of the right maxillary sinus and dependently layering fluid in the bilateral sphenoid sinuses. Correlate clinically for acute sinusitis. 2. Dental and periodontal disease with periapical lucency surrounding the posterior most remaining right maxillary molar. Renal Ultrasound 10/19/24 09:48 IMPRESSION: No hydronephrosis or renal calculi. No parenchymal findings to suggest the presence of medical renal disease. Simple cysts within the right kidney, for which no further follow-up is needed. Abdomen X-Ray 10/19/24 11:15 IMPRESSION: Nasogastric tube in good position and ready for immediate use. Brain MRI 10/24/24 14:22 IMPRESSION: 1. Age-related changes the brain. No acute intracranial process. 2. Prominent sinus disease with fluid nearly filling the right maxillary sinus and layering dependently in the bilateral sphenoid sinuses. Correlate clinically for acute sinusitis. Chest X-Ray 10/29/24 14:04 Impression: Clear lungs. NG tube in place. Lumbar Puncture Fluoroscopy 10/31/24 17:34 IMPRESSION: 1. Successful fluoro-guided lumbar puncture with mildly elevated opening pressure of 23 cm water. Labs Labs: Laboratory Results - last 24 hr 10/23/24 10/30/24 10/31/24 20:17 18:31 00:06 WBC RBC Hgb Hct MCV MCH MCHC RDW Plt Count MPV Immature Gran % (Auto) Neut % (Auto) Lymph % (Auto) [place] % (Auto) Eos % (Auto) Baso % (Auto) Lymph # (Auto) [place] # (Auto) Eos # (Auto) Baso # (Auto) Abs Immat Gran (auto) Absolute Neuts (auto) Absolute Nucleated RBC Band Neutrophils % Nucleated RBC % Platelet Estimate Hypochromasia Anisocytosis Target Cells Ovalocytes Schistocytes PT 15.0 H INR 1.2 APTT 39.0 H Sodium Potassium Chloride Carbon Dioxide Anion Gap BUN Creatinine Estim Creat Clear Calc Estimated GFR Glucose POC Capillary Glucose 98 Calcium Magnesium Total Bilirubin AST ALT Alkaline Phosphatase Total Creatine Kinase Total Protein Albumin Direct Plt-Bound IgG Ab Negative 10/31/24 10/31/24 10/31/24 03:54 05:02 07:52 WBC 6.7 RBC 2.76 L Hgb 8.0 L Hct 25.5 L MCV 92.4 MCH 29.0 MCHC 31.4 L RDW 24.5 H Plt Count 275 MPV 10.9 H Immature Gran % (Auto) 0.4 Neut % (Auto) 48.0 Lymph % (Auto) 25.9 [place] % (Auto) 20.1 H Eos % (Auto) 5.2 H Baso % (Auto) 0.4 Lymph # (Auto) 1.73 [place] # (Auto) 1.3 H Eos # (Auto) 0.4 H Baso # (Auto) 0.0 Abs Immat Gran (auto) 0.03 Absolute Neuts (auto) 3.2 Absolute Nucleated RBC 0.000 Band Neutrophils % 0 Nucleated RBC % 0.0 Platelet Estimate Adequate Hypochromasia 1+ Anisocytosis 1+ Target Cells 1+ Ovalocytes 1+ Schistocytes None seen PT INR APTT Sodium 137 Potassium 4.8 Chloride 108 H Carbon Dioxide 23 Anion Gap 6 BUN 18 Creatinine 0.98 Estim Creat Clear Calc 60 Estimated GFR > 60 Glucose 102 POC Capillary Glucose 97 102 Calcium 8.3 L Magnesium 1.6 Total Bilirubin 0.6 AST 36 ALT 20 Alkaline Phosphatase 146 H Total Creatine Kinase 63 Total Protein 6.0 L Albumin 2.6 L Direct Plt-Bound IgG Ab 10/31/24 11:43 WBC RBC Hgb Hct MCV MCH MCHC RDW Plt Count MPV Immature Gran % (Auto) Neut % (Auto) Lymph % (Auto) [place] % (Auto) Eos % (Auto) Baso % (Auto) Lymph # (Auto) [place] # (Auto) Eos # (Auto) Baso # (Auto) Abs Immat Gran (auto) Absolute Neuts (auto) Absolute Nucleated RBC Band Neutrophils % Nucleated RBC % Platelet Estimate Hypochromasia Anisocytosis Target Cells Ovalocytes Schistocytes PT INR APTT Sodium Potassium Chloride Carbon Dioxide Anion Gap BUN Creatinine Estim Creat Clear Calc Estimated GFR Glucose POC Capillary Glucose 101 Calcium Magnesium Total Bilirubin AST ALT Alkaline Phosphatase Total Creatine Kinase Total Protein Albumin Direct Plt-Bound IgG Ab Quality VTE Prophylaxis VTE prophylaxis: mechanical ordered
[2024-10-31] MEDS: SODIUM CHLORIDE 0.9% IV 250 ML 30 ML IV CONT (19:34)
[2024-10-31 21:18] LABS: Lymphocytes CSF 100 % (40-80)
[2024-10-31 21:19] LABS: Nucleated Cell CSF 1 /uL (0-5); Red Blood Cell CSF 6 (0-2)
[2024-11-01] VITALS (10 sets, daily range): BP systolic 115–144; BP diastolic 65–98; PULSE 76–87; RESP 16–25; TEMP 36.4–37; O2SAT 100
[2024-11-01] MEDS: VANCOMYCIN ORAL 125 MG/2.5 ML SYRUP FEED TUBE ×3 (00:03→13:02)
[2024-11-01] MEDS: SODIUM CHLORIDE 0.45% 1,000 ML 75 ML IV CONT ×2 (02:30→19:34)
[2024-11-01] MEDS: SODIUM CHLOR 3% 15 ML NEB (RESPIRATORY THERAPY) 6 ML INHALATION (04:21)
[2024-11-01 05:56] LABS: Hematocrit 25.6 % (42.0-52.0); Hemoglobin 8.1 g/dL (14.0-18.0); Immature Granulocyte Percent A 0.5 % (0-0.5); Lymphocytes Absolute Auto 2.44 K/mm3 (0.9-3.2); Mean Corpuscular HGB Conc 31.6 g/dl (32-36); Mean Corpuscular Hemoglobin 29.0 pg (26-34); Mean Corpuscular Volume 91.8 fl (80-100); Nucleated Red Blood Cells Absolute Auto 0.000 K/mm3 (0.0-0.012); Nucleated Red Blood Cells Perc 0.0 % (0.0-0.2); Platelet Count Result 292 k/mm3 (150-375); Red Blood Count 2.79 M/mm3 (4.6-6.20); White Blood Count 7.5 K/mm3 (4.5-10.0)
[2024-11-01 06:14] LABS: Alanine Aminotransferase 21 U/L (6-50); Albumin Level 2.6 g/dL (3.5-5.1); Alkaline Phosphatase 147 U/L (38-126); Anion Gap 6 mmol/L (4-12); Aspartate Amino Transferase 38 U/L (17-59); Bilirubin,Total 0.8 mg/dL (0.2-1.3); Blood Urea Nitrogen 15 mg/dL (9-20); Calcium 8.5 mg/dL (8.4-10.2); Carbon Dioxide 23 mmol/L (22-30); Chloride 107 mmol/L (98-107); Creatine Kinase 86 U/L (55-170); Estimated CRCL calculation 59 ml/min; Estimated Glomerular Filt Rate > 60; Glucose 86 mg/dL (65-110); Magnesium 1.3 mg/dL (1.6-2.3); Potassium 4.6 mmol/L (3.4-5.0); Sodium 136 mmol/L (137-145); Total Protein 6.2 g/dL (6.3-8.2)
[2024-11-01 06:49] LABS: Anisocytosis 2+; Hypochromasia 1+; Schistocytes None Seen
[2024-11-01] MEDS: PANTOPRAZOLE SODIUM IV 40 MG VIAL IV PUSH ×2 (09:12→20:26)
[2024-11-01] MEDS: FOLIC ACID 1 MG TABLET FEED TUBE (09:12)
[2024-11-01] MEDS: THIAMINE HCL 100 MG TABLET FEED TUBE (09:14)
--- NOTE | 2024-11-01 13:15 | PCOTNOTE ---
Attempted to see Patient at this time, Patient unable to to arouse enough to participate in any activity. Patient very lethargic. Per RN, Patient has been difficulty to stay alert today. Per RN, Patient is supposed to go down for a PEG tube placement later this afternoon.
--- NOTE | 2024-11-01 15:08 | WPDANESEPPF ---
Anes - Initial Pre Proc Eval Procedure: Operation Date: 11/01/24 15:15 Proposed Procedures p Percutaneous Endoscopic Gastrostomy - Oren Bojorquez MD Date/Time: 11/01/24 15:08 Surgeon: Tevin Dickerson MD Pre Op Diagnosis: Rhabdomyolysis, acute kidney injury altered mental Patient Data Age: 69 Gender: M Height: 1.73 m Weight: 75.3 kg Last Vital Signs Temp 36.4 C 11/01/24 06:04 Pulse 82 11/01/24 06:04 Resp 16 11/01/24 06:04 BP 117/81 11/01/24 06:04 Pulse Ox 100 11/01/24 06:04 O2 Del Method Room Air 11/01/24 08:00 O2 Flow Rate 2 10/22/24 00:00 FiO2 21 10/31/24 19:49 Allergies Allergy/AdvReac Type Severity Reaction Status Date / Time lisinopril Allergy Severe angioedema Verified 10/18/24 13:19 fenofibrate Allergy Intermediate hives Verified 10/18/24 13:19 Penicillins Allergy hives Verified 10/18/24 13:19 Home Medications ?Medication ?Instructions ?Recorded ?Confirmed ?Type allopurinol 100 mg tablet 100 mg PO DAILY 10/18/24 10/18/24 History amlodipine 10 mg tablet 10 mg PO DAILY 10/18/24 10/18/24 History aspirin 81 mg tablet,delayed 81 mg PO DAILY 10/18/24 10/18/24 History release carvedilol 12.5 mg tablet 12.5 mg PO BID 10/18/24 10/18/24 History rosuvastatin 10 mg tablet 10 mg PO DAILY 10/18/24 10/18/24 History Laboratory Tests 10/31/24 10/31/24 11/01/24 16:46 16:46 00:34 WBC RBC Hgb Hct MCV MCH MCHC RDW Plt Count MPV Immature Gran % (Auto) Neut % (Auto) Lymph % (Auto) [place] % (Auto) Eos % (Auto) Baso % (Auto) Lymph # (Auto) [place] # (Auto) Eos # (Auto) Baso # (Auto) Abs Immat Gran (auto) Absolute Neuts (auto) Absolute Nucleated RBC Band Neutrophils % Nucleated RBC % Atypical Lymphocytes Platelet Estimate Hypochromasia Anisocytosis Schistocytes Sodium Potassium Chloride Carbon Dioxide Anion Gap BUN Creatinine Estim Creat Clear Calc Estimated GFR Glucose POC Capillary Glucose 89 mg/dl (65-105) Calcium Magnesium Total Bilirubin AST ALT Alkaline Phosphatase Total Creatine Kinase Total Protein Albumin Fluid EBV Source Pending CSF Source Csf Pending CSF Appearance Clear (Clear) CSF Color Colorless (Colorless) CSF RBC 6 H (0-2) CSF Tot Nucleated Cells 1 /uL (0-5) CSF Lymphocytes 100 H % (40-80) CSF Glucose 55 mg/dL (40-70) CSF Lactic Acid Pending CSF Total Protein 188 H mg/dL (12-60) CSF Lyme IgG Antibody Pending CSF Lyme IgG (Immblot) Pending CSF Lyme IgM Antibody Pending CSF Lyme IgM (Immblot) Pending CSF Cryptococcus Interp Pending CSF EBV DNA (PCR) Pending CSF Herpes I DNA (PCR) Pending CSF Herpes II DNA (PCR) Pending CSF West [place] RNA Pending Lyme IgG Bands Present Pending Lyme IgM Bands Present Pending Cryptococcus Source Pending Cryptococcus Ag Pending HSV (PCR) Source Pending 11/01/24 11/01/24 11/01/24 03:34 05:28 05:59 WBC 7.5 K/mm3 (4.5-10.0) RBC 2.79 L M/mm3 (4.6-6.20) Hgb 8.1 L g/dL (14.0-18.0) Hct 25.6 L % (42.0-52.0) MCV 91.8 fl (80-100) MCH 29.0 pg (26-34) MCHC 31.6 L g/dl (32-36) RDW 23.8 H % (11.5-14.5) Plt Count 292 k/mm3 (150-375) MPV 11.2 H fl (7.4-10.4) Immature Gran % (Auto) 0.5 % (0-0.5) Neut % (Auto) 44.7 L % (45.5-73.1) Lymph % (Auto) 32.8 % (18.3-44.2) [place] % (Auto) 16.8 H % (2.6-8.5) Eos % (Auto) 4.8 H % (0-4.4) Baso % (Auto) 0.4 % (0.2-1.2) Lymph # (Auto) 2.44 K/mm3 (0.9-3.2) [place] # (Auto) 1.3 H K/mm3 (0.1-0.6) Eos # (Auto) 0.4 H K/mm3 (0-0.3) Baso # (Auto) 0.0 K/mm3 (0.0-0.1) Abs Immat Gran (auto) 0.04 H K/mm3 (0.00-0.031) Absolute Neuts (auto) 3.3 K/mm3 (1.3-6.7) Absolute Nucleated RBC 0.000 K/mm3 (0.0-0.012) Band Neutrophils % Not Reportable Nucleated RBC % 0.0 % (0.0-0.2) Atypical Lymphocytes Present Platelet Estimate Adequate (Adequate) Hypochromasia 1+ Anisocytosis 2+ Schistocytes None seen Sodium 136 L mmol/L (137-145) Potassium 4.6 mmol/L (3.4-5.0) Chloride 107 mmol/L (98-107) Carbon Dioxide 23 mmol/L (22-30) Anion Gap 6 mmol/L (4-12) BUN 15 mg/dL (9-20) Creatinine 1.00 mg/dL (0.7-1.3) Estim Creat Clear Calc 59 ml/min Estimated GFR > 60 (59 - ) Glucose 86 mg/dL (65-110) POC Capillary Glucose 77 mg/dl 75 mg/dl (65-105) (65-105) Calcium 8.5 mg/dL (8.4-10.2) Magnesium 1.3 L mg/dL (1.6-2.3) Total Bilirubin 0.8 mg/dL (0.2-1.3) AST 38 U/L (17-59) ALT 21 U/L (6-50) Alkaline Phosphatase 147 H U/L (38-126) Total Creatine Kinase 86 U/L (55-170) Total Protein 6.2 L g/dL (6.3-8.2) Albumin 2.6 L g/dL (3.5-5.1) Fluid EBV Source CSF Source CSF Appearance CSF Color CSF RBC CSF Tot Nucleated Cells CSF Lymphocytes CSF Glucose CSF Lactic Acid CSF Total Protein CSF Lyme IgG Antibody CSF Lyme IgG (Immblot) CSF Lyme IgM Antibody CSF Lyme IgM (Immblot) CSF Cryptococcus Interp CSF EBV DNA (PCR) CSF Herpes I DNA (PCR) CSF Herpes II DNA (PCR) CSF [place] RNA Lyme IgG Bands Present Lyme IgM Bands Present Cryptococcus Source Cryptococcus Ag HSV (PCR) Source 11/01/24 11/01/24 07:53 11:44 WBC RBC Hgb Hct MCV MCH MCHC RDW Plt Count MPV Immature Gran % (Auto) Neut % (Auto) Lymph % (Auto) [place] % (Auto) Eos % (Auto) Baso % (Auto) Lymph # (Auto) [place] # (Auto) Eos # (Auto) Baso # (Auto) Abs Immat Gran (auto) Absolute Neuts (auto) Absolute Nucleated RBC Band Neutrophils % Nucleated RBC % Atypical Lymphocytes Platelet Estimate Hypochromasia Anisocytosis Schistocytes Sodium Potassium Chloride Carbon Dioxide Anion Gap BUN Creatinine Estim Creat Clear Calc Estimated GFR Glucose POC Capillary Glucose 82 mg/dl 80 mg/dl (65-105) (65-105) Calcium Magnesium Total Bilirubin AST ALT Alkaline Phosphatase Total Creatine Kinase Total Protein Albumin Fluid EBV Source CSF Source CSF Appearance CSF Color CSF RBC CSF Tot Nucleated Cells CSF Lymphocytes CSF Glucose CSF Lactic Acid CSF Total Protein CSF Lyme IgG Antibody CSF Lyme IgG (Immblot) CSF Lyme IgM Antibody CSF Lyme IgM (Immblot) CSF Cryptococcus Interp CSF EBV DNA (PCR) CSF Herpes I DNA (PCR) CSF Herpes II DNA (PCR) CSF [place] RNA Lyme IgG Bands Present Lyme IgM Bands Present Cryptococcus Source Cryptococcus Ag HSV (PCR) Source Patient hx anesthesia problems: none Family hx anesthesia problems: none Results Review: All pre-operative results and documents have been reviewed as part of the pre-operative evaluation. [facility] Past Medical History Medical History Metabolic encephalopathy Alcohol abuse Acute encephalopathy Cancer Gout Social History Social History Smoking packs per day: 0.3 Smoking cigarettes per day: 6.0 Smoking status: Former smoker Additional smoking assessment comments: unknown when quit Spiritual care concerns: No Anes - Eval Final PreProcedure Day of Procedure 11/01/24 15:08 Patient weight: normal Heart: regular rate and rhythm Lungs: clear to auscultation Neurological: unresponsive Last oral intake: >/= 8 hours ASA classification: IV Emergent: no Anesthetic plan: proceed Anesthesia type and monitoring: general GIVS and standard monitoring Results Review: All pre-operative results and documents have been reviewed as part of the pre-operative evaluation. Informed Consent: The patient's anesthetic plan and its attendant risks and benefits were discussed with the patient/family/POA. Questions were solicited and answers provided to the satisfaction of the patient/family/POA.
[2024-11-01] MEDS: SIMETHICONE ORAL SUSPENSION 20 MG/0.3 ML 30 ML BOTTLE 1.8 ML PO (15:13)
[2024-11-01] MEDS: LACTATED RINGERS 1,000 ML 150 ML IV CONT (15:13)
[2024-11-01] MEDS: ceFAZolin 1 GM/NS 50 ML 1 GM/50 ML BAG IVPB (15:14)
--- NOTE | 2024-11-01 16:48 | PM.IMPN ---
Progress Note: A&P Assessment and Plan (1) Shock: Code(s): R57.9 - Shock, unspecified Status: Acute Assessment and Plan: RESOLVED 10/17: EMS arrived at patient's house: he was found face down with, hypotensive with systolic in the 50s, patient given IV fluids in the ER, central line inserted, started on Levophed. CT head was negative. Chest x-ray with no focal infiltrate or effusion. CT chest abdomen pelvis with no acute findings. Face CT with extensive sinus disease with near complete opacification of the right maxillary sinus and dependently layering fluid in the bilateral sphenoid sinuses. Dental and periodontal disease with periapical lucency surrounding the posterior-most remaining right maxillary molar. -off Levophed since the morning of 10/18 -procalcitonin levels are at high -patient was started on cefepime and vancomycin which was discontinued since there was no nidus of infection -MRSA screen is negative, -10/17: Blood cultures negative-so far -no nidus of infection on either chest x-ray, CT chest abdomen and pelvis, UA was clear, -10/19: given low body temperature, elevated procalcitonin started on ceftriaxone empirically. Procalcitonin can also be raised in tissue injury -10/19: UA reflective of UTI, also given sinusitis on CT scan of the face, started patient on ceftriaxone since 10/19/2024. Urine culture not obtained. Will conclude 10/24/2019 Liquid stool. Could be tube feed related. C diff came back positive Started on vancomycin 10/23/2019 (2) Altered mental status: Qualifiers: Altered mental status type: disorientation Qualified Code(s): R41.0 - Disorientation, unspecified Code(s): R41.82 - Altered mental status, unspecified Status: Acute Assessment and Plan: Altered mental status is multifactorial could be related to hypovolemia, shock, hypotension, acute kidney injury, rhabdomyolysis -CT brain was negative for intracranial abnormalities -MRI cannot be performed as patient was in the [place] and may have sharpnel exposure according to his daughter -10/19: Repeat CT brain did not show any acute intracranial hemorrhage or suspicious mass effect, inflammatory sinus disease. -10/19: CT facial bones showed extensive sinus disease with near complete opacification of the right maxillary sinus and dependently layering fluid in the bilateral sphenoid sinuses. Dental and periodontal disease with periapical lucency surrounding the posterior most remaining right maxillary molar Despite improvement in metabolic issues he remains encephalopathic Will further evaluate with MRI brain and EEG. Neurology consultation Brain MRI in process EEG performed: No seizure activity noted. (3) Fall (on) (from) other stairs and steps, initial encounter: Code(s): W10.8XXA - Fall (on) (from) other stairs and steps, initial encounter Status: Acute Assessment and Plan: Patient was found on the ground face down unknown amount of time, unknown etiology -continue treat underlying cause -10/18: Echocardiogram showed EF of 60-65%, normal biventricular size and systolic function, no significant valvular abnormalities (4) Acute kidney injury: Code(s): N17.9 - Acute kidney failure, unspecified Status: Acute Assessment and Plan: Acute kidney injury likely related to hypotension, hypovolemia, shock, rhabdomyolysis -patient received 3 L IV fluid bolus in the ER -started on bicarb infusion -patient was hypernatremic on admission, -sodium levels trending down gradually currently on bicarb infusion per Nephrology -continue to monitor urine output, electrolytes and renal function -patient presented with creatinine of 3.0 (baseline 1.0 in October 2023 at [facility]) -urine lytes not reflective of prerenal picture, urine eosinophils are negative -CT scan of the abdomen and pelvis did not show any hydronephrosis -renal ultrasound: No hydronephrosis or renal calculi, no apparent, findings to suggest the presence of medical renal disease. Simple cyst within the right kidney -CK levels trending down on admission 5864 peaked to 8292. -appreciate Nephrology evaluation and recommendation Conjunctival chemosis noted. IV fluids stopped Already getting tube feeds at 55 cc an hour (5) Rhabdomyolysis: Qualifiers: Encounter type: initial encounter Rhabdomyolysis type: traumatic Qualified Code(s): T79.6XXA - Traumatic ischemia of muscle, initial encounter Code(s): M62.82 - Rhabdomyolysis Status: Acute Assessment and Plan: Rhabdomyolysis likely related to being down on the ground for unknown amount of time -patient has been given 3 L IV fluids in the ER plus 500 mL of LR bolus in the ICU on 10/18. Patient seems to be adequately fluid-resuscitated -continue IV fluids per Nephrology CK levels trending down on admission 5864 peaked to 8292. (6) Electrolyte imbalance: Code(s): E87.8 - Other disorders of electrolyte and fluid balance, not elsewhere classified Status: Acute Assessment and Plan: Magnesium repleted (7) Anemia: Code(s): D64.9 - Anemia, unspecified Status: Acute Assessment and Plan: Patient dropped his hemoglobin this morning to 6.2 from 9.1 on admission -10/18: status post 2 units of packed RBCs -stool occult is negative -vitamin B12 levels are normal, folic acid is low will substitute -iron panel looks normal -hemoglobin remained stable (8) Thrombocytopenia: Code(s): D69.6 - Thrombocytopenia, unspecified Status: Acute Assessment and Plan: Thrombocytopenia with platelet counts of 62 this morning, 91 on admission -10/18: status post 1 unit of platelets -INR 1.2 on admission -platelets remain low, continue to monitor Does have history of chronic alcohol abuse per family. No baseline available Concern for TTP. Hematology consult Will Also order hit panel Plan 69 y/o male was found after he fell under stairs by his family, patient had AMS was not able to provide details ROS or history, patient had CT was normal upon arrival, as well his MRI of Brain for any acute injury, patient. upon arrival patient hgb was 9.1 and dropped to 6.2 without and GI bleed, patient was seen by home health aide caregiver and suspect anemia 2/2 renal dysfunction, and work up is in progress, also on admission patient had elevated CK levels of 5864 most likely 2/2 fall and don't know how long patient was on the ground after fall however his CK levels today are 189 and his ALEJANDRO has improved and patient is seen by pipe organ mechanic, patient had dysphagia on NG tube feeding consulted GI for PEG however patient platelets were low in 37 today is 234 suspect most likely 2/2 alcohol abuse, seen by home health aide caregiver and further work up is in progress, patient lungs sounded congested CXR concerning for pneumonia being treated with Cefepime and Zithromax, blood culture no growth so far, and follow up. patient is found to C diff diarrhea his stools liquidity, patient hgb drop to 6.7 on 10/28 there is no obvious bleeding but stool hemoccult was positive, was seen GI, patient anemian does not warrant any GI workup, will monitor patient does not provide much ROS, today discussed the case with the neurologist recommended spinal tap, the neurologist called the patient daughter gave updates, and got the consent for LP, patient is schedule for LP today, patient still does not provide any ROS, treated for C diff and his stools are liquidity. will follow up on LP and discuss with the neurologist. on 10/31 patient had LP, CSF showed high protein, discuss with neurologist concerning for encephalitis possibly chronic as patient has long history of alcohol abuse. today was taken to GI lab and had EGD, its showed patient had previous stomach surgery and surgical scar and GI was not able to place PEG, will consult surgery for further recommendation, will follow up. stool are still liquidity this may be due to tube feeding and unable to assess, however patient white counts are normal. DVT prophylaxis: SCDs, no chemoprophylaxis due to thrombocytopenia Stress ulcer prophylaxis: Protonix IV q.12 hours Nutrition: NG tube placed on 10/19: Started on tube feeds and tolerating Code Status: Full code Subjective Date/time seen: 11/01/24 16:48 Interval history: 69 y/o male was found after he fell under stairs by his family, patient had AMS was not able to provide details ROS or history, patient had CT was normal upon arrival, as well his MRI of Brain for any acute injury, patient. upon arrival patient hgb was 9.1 and dropped to 6.2 without and GI bleed, patient was seen by home health aide caregiver and suspect anemia 2/2 renal dysfunction, and work up is in progress, also on admission patient had elevated CK levels of 5864 most likely 2/2 fall and don't know how long patient was on the ground after fall however his CK levels today are 189 and his ALEJANDRO has improved and patient is seen by pipe organ mechanic, patient had dysphagia on NG tube feeding consulted GI for PEG however patient platelets were low in 37 today is 234 suspect most likely 2/2 alcohol abuse, seen by home health aide caregiver and further work up is in progress, patient lungs sounded congested CXR concerning for pneumonia being treated with Cefepime and Zithromax, blood culture no growth so far, and follow up. patient is found to C diff diarrhea his stools liquidity, patient hgb drop to 6.7 on 10/28 there is no obvious bleeding but stool hemoccult was positive, was seen GI, patient anemian does not warrant any GI workup, will monitor patient does not provide much ROS, today discussed the case with the neurologist recommended spinal tap, the neurologist called the patient daughter gave updates, and got the consent for LP, patient is schedule for LP today, patient still does not provide any ROS, treated for C diff and his stools are liquidity. will follow up on LP and discuss with the neurologist. on 10/31 patient had LP, CSF showed high protein, discuss with neurologist concerning for encephalitis possibly chronic as patient has long history of alcohol abuse. today was taken to GI lab and had EGD, its showed patient had previous stomach surgery and surgical scar and GI was not able to place PEG, will consult surgery for further recommendation, will follow up. stool are still liquidity this may be due to tube feeding and unable to assess, however patient white counts are normal. Review of Systems Review of Systems: All systems reviewed & are unremarkable except as noted in HPI and below ( Limited, A&O x1, unreliable) ROS unobtainable: Yes unobtainable due to medical condition and unobtainable due to mental status Exam Narrative: Patient is comfortable, NAD HEENT: eyes are clear and none icteric, NG tube in place LUNGS:CTA HEART: RR S1S2 ABD: BS+, Soft and nontender Lower extremities: no edema SKIN: nonjaundiced Neuro: grossly intact. Objective Data Vital Signs Vital Signs: Vital Signs - 24 hr 10/31/24 17:21 10/31/24 17:21 10/31/24 17:30 Temperature 36.3 C L Pulse Rate 82 92 100 Respiratory Rate 18 18 20 Blood Pressure 129/63 138/81 150/90 H Pulse Oximetry 99 100 97 Oxygen Delivery Oxygen Flow Rate Fraction of Inspired Oxygen 10/31/24 19:49 10/31/24 21:10 11/01/24 04:22 Temperature 36.6 C Pulse Rate 84 84 83 Respiratory Rate 20 14 20 Blood Pressure 152/80 H Pulse Oximetry 95 98 Oxygen Delivery Room Air Oxygen Flow Rate Fraction of Inspired Oxygen 21 11/01/24 06:04 11/01/24 08:00 11/01/24 14:26 Temperature 36.4 C 36.7 C Pulse Rate 82 82 Respiratory Rate 16 18 Blood Pressure 117/81 140/79 Pulse Oximetry 100 100 Oxygen Delivery Room Air Oxygen Flow Rate Fraction of Inspired Oxygen 11/01/24 15:14 11/01/24 15:33 11/01/24 15:58 Temperature 36.9 C 36.6 C 37.0 C Pulse Rate 84 83 84 Respiratory Rate 20 20 21 H Blood Pressure 144/94 H 142/98 H 118/78 Pulse Oximetry 100 100 100 Oxygen Delivery Room Air Room Air Nasal Cannula Oxygen Flow Rate 4 Fraction of Inspired Oxygen 11/01/24 16:08 11/01/24 16:18 Temperature Pulse Rate 87 80 Respiratory Rate 20 25 H Blood Pressure 121/78 125/83 Pulse Oximetry 100 100 Oxygen Delivery Nasal Cannula Room Air Oxygen Flow Rate 4 Fraction of Inspired Oxygen Intake/Output Intake/Output: Intake & Output 10/29/24 10/30/24 10/31/24 11/01/24 23:59 23:59 23:59 23:59 Intake Total 5408 1765.1 2022.5 1356 Output Total 4025 4400 5500 2300 Balance 1383 -2634.9 -3477.5 -944 Meds/Results Medications: Active Medications Generic Name Dose Route Start Last Admin Trade Name Freq PRN Reason Stop Dose Admin Dextrose 12.5 gm 10/17/24 21:26 10/30/24 05:55 Dextrose 50% 25 Gm/50 Ml Syringe IV PUSH 12.5 gm PRN PRN Administration Hypoglycemia Protocol Enoxaparin Sodium 30 mg 10/18/24 09:00 Enoxaparin 30 Mg/0.3 Ml Syringe SUB-Q DAILY JHONY Folic Acid 1 mg 10/24/24 09:00 11/01/24 09:12 Folic Acid 1 Mg Tablet FEED TUBE 1 mg QAM JHONY Administration Glucagon 1 mg 10/17/24 21:26 Glucagon For Inj 1 Mg Vial IM PRN PRN Hypoglycemia Protocol Glucose 15 gm 10/17/24 21:26 Glucose Oral Gel 15 Gm Of Glucse In 37.5 Gm Tube PO PRN PRN Hypoglycemia Protocol Dextrose 1,000 mls @ 100 mls/hr 10/17/24 21:26 Dextrose 5% 1,000 Ml IVPB PRN PRN Hypoglycemia Protocol Sodium Chloride 1,000 mls @ 75 mls/hr 10/22/24 20:40 11/01/24 02:30 Sodium Chloride 0.45% IV CONT 75 mls/hr .[id number] JHONY Administration Magnesium Sulfate 2 gm in 50 mls @ 50 mls/hr 11/01/24 16:27 Magnesium Sulf 2 Gm/Water 50ml IVPB 11/01/24 17:26 ONCE ONE Pantoprazole Sodium 40 mg 10/18/24 21:00 11/01/24 09:12 Pantoprazole Sodium Iv 40 Mg Vial IV PUSH 40 mg Q12HR JHONY Administration Thiamine HCl 100 mg 10/24/24 09:00 11/01/24 09:14 Thiamine Hcl 100 Mg Tablet FEED TUBE 100 mg QAM JHONY Administration Radiology Results: ITS Impressions Chest/Abdomen/Pelvis CT 10/17/24 10:46 IMPRESSION: No hollow or solid organ injury. No acute fractures. Head CT 10/19/24 09:19 Impression: No acute intracranial hemorrhage or suspicious mass effect. Inflammatory sinus disease. Face CT 10/19/24 09:39 IMPRESSION: 1. Extensive sinus disease with near complete opacification of the right maxillary sinus and dependently layering fluid in the bilateral sphenoid sinuses. Correlate clinically for acute sinusitis. 2. Dental and periodontal disease with periapical lucency surrounding the posterior most remaining right maxillary molar. Renal Ultrasound 10/19/24 09:48 IMPRESSION: No hydronephrosis or renal calculi. No parenchymal findings to suggest the presence of medical renal disease. Simple cysts within the right kidney, for which no further follow-up is needed. Brain MRI 10/24/24 14:22 IMPRESSION: 1. Age-related changes the brain. No acute intracranial process. 2. Prominent sinus disease with fluid nearly filling the right maxillary sinus and layering dependently in the bilateral sphenoid sinuses. Correlate clinically for acute sinusitis. Chest X-Ray 10/29/24 14:04 Impression: Clear lungs. NG tube in place. Lumbar Puncture Fluoroscopy 10/31/24 17:34 IMPRESSION: 1. Successful fluoro-guided lumbar puncture with mildly elevated opening pressure of 23 cm water. Labs Labs: Laboratory Results - last 24 hr 10/31/24 11/01/24 11/01/24 16:46 00:34 03:34 WBC RBC Hgb Hct MCV MCH MCHC RDW Plt Count MPV Immature Gran % (Auto) Neut % (Auto) Lymph % (Auto) [place] % (Auto) Eos % (Auto) Baso % (Auto) Lymph # (Auto) [place] # (Auto) Eos # (Auto) Baso # (Auto) Abs Immat Gran (auto) Absolute Neuts (auto) Absolute Nucleated RBC Band Neutrophils % Nucleated RBC % Atypical Lymphocytes Platelet Estimate Hypochromasia Anisocytosis Schistocytes Sodium Potassium Chloride Carbon Dioxide Anion Gap BUN Creatinine Estim Creat Clear Calc Estimated GFR Glucose POC Capillary Glucose 89 77 Calcium Magnesium Total Bilirubin AST ALT Alkaline Phosphatase Total Creatine Kinase Total Protein Albumin CSF Source Csf CSF Appearance Clear CSF Color Colorless CSF RBC 6 H CSF Tot Nucleated Cells 1 CSF Lymphocytes 100 H CSF Glucose 55 CSF Total Protein 188 H 11/01/24 11/01/24 11/01/24 05:28 05:59 07:53 WBC 7.5 RBC 2.79 L Hgb 8.1 L Hct 25.6 L MCV 91.8 MCH 29.0 MCHC 31.6 L RDW 23.8 H Plt Count 292 MPV 11.2 H Immature Gran % (Auto) 0.5 Neut % (Auto) 44.7 L Lymph % (Auto) 32.8 [place] % (Auto) 16.8 H Eos % (Auto) 4.8 H Baso % (Auto) 0.4 Lymph # (Auto) 2.44 [place] # (Auto) 1.3 H Eos # (Auto) 0.4 H Baso # (Auto) 0.0 Abs Immat Gran (auto) 0.04 H Absolute Neuts (auto) 3.3 Absolute Nucleated RBC 0.000 Band Neutrophils % Not Reportable Nucleated RBC % 0.0 Atypical Lymphocytes Present Platelet Estimate Adequate Hypochromasia 1+ Anisocytosis 2+ Schistocytes None seen Sodium 136 L Potassium 4.6 Chloride 107 Carbon Dioxide 23 Anion Gap 6 BUN 15 Creatinine 1.00 Estim Creat Clear Calc 59 Estimated GFR > 60 Glucose 86 POC Capillary Glucose 75 82 Calcium 8.5 Magnesium 1.3 L Total Bilirubin 0.8 AST 38 ALT 21 Alkaline Phosphatase 147 H Total Creatine Kinase 86 Total Protein 6.2 L Albumin 2.6 L CSF Source CSF Appearance CSF Color CSF RBC CSF Tot Nucleated Cells CSF Lymphocytes CSF Glucose CSF Total Protein 11/01/24 11:44 WBC RBC Hgb Hct MCV MCH MCHC RDW Plt Count MPV Immature Gran % (Auto) Neut % (Auto) Lymph % (Auto) [place] % (Auto) Eos % (Auto) Baso % (Auto) Lymph # (Auto) [place] # (Auto) Eos # (Auto) Baso # (Auto) Abs Immat Gran (auto) Absolute Neuts (auto) Absolute Nucleated RBC Band Neutrophils % Nucleated RBC % Atypical Lymphocytes Platelet Estimate Hypochromasia Anisocytosis Schistocytes Sodium Potassium Chloride Carbon Dioxide Anion Gap BUN Creatinine Estim Creat Clear Calc Estimated GFR Glucose POC Capillary Glucose 80 Calcium Magnesium Total Bilirubin AST ALT Alkaline Phosphatase Total Creatine Kinase Total Protein Albumin CSF Source CSF Appearance CSF Color CSF RBC CSF Tot Nucleated Cells CSF Lymphocytes CSF Glucose CSF Total Protein Quality VTE Prophylaxis VTE prophylaxis: mechanical ordered
--- NOTE | 2024-11-01 16:54 | WPDNEUROPN ---
Progress Note: A&P Assessment and Plan (1) Metabolic encephalopathy: Code(s): G93.41 - Metabolic encephalopathy Status: Acute (2) Alcohol abuse: Code(s): F10.10 - Alcohol abuse, uncomplicated Status: Acute (3) Fall (on) (from) other stairs and steps, initial encounter: Code(s): W10.8XXA - Fall (on) (from) other stairs and steps, initial encounter Status: Acute (4) Rhabdomyolysis: Qualifiers: Encounter type: initial encounter Rhabdomyolysis type: traumatic Qualified Code(s): T79.6XXA - Traumatic ischemia of muscle, initial encounter Code(s): M62.82 - Rhabdomyolysis Status: Acute (5) Anemia: Code(s): D64.9 - Anemia, unspecified Status: Acute (6) Acute kidney injury: Code(s): N17.9 - Acute kidney failure, unspecified Status: Acute Plan The patient and does not show high white cell count but the CSF protein was high at 188 however he has several other metabolic problems. Some of the PCRs for the viruses are still pending the results of CSF will be followed up. EEG shows diffuse background slowing and essentially no focal or paroxysmal epileptiform abnormality was seen. These findings are similar to the previous EEG. It was noted the patient has history of significant alcohol drinking since his according to his son. He had a gastrectomy as shown by the endoscopy done today. I did discuss this with Dr. Dickerson hospitalist on case. Continued supportive care is recommended. Subjective Date/time seen: 11/01/24 16:54 Interval history: The patient continues to very drowsy and does not respond or communicate well. He did undergo a spinal tap which shows high protein but normal cell count. CSF protein was 188. There was 1 nucleated cell which was 100% lymphocytes. other PCRs are still in progress. Review of Systems Review of Systems: ROS unobtainable: Yes unobtainable due to mental status Exam Narrative: Patient does not cooperate much. No involuntary movements are seen. Objective Data Vital Signs Vital Signs: Vital Signs - 24 hr 10/31/24 17:21 10/31/24 17:21 10/31/24 17:30 Temperature 97.3 F L Pulse Rate 82 92 100 Respiratory Rate 18 18 20 Blood Pressure 129/63 138/81 150/90 H Pulse Oximetry 99 100 97 Oxygen Delivery Oxygen Flow Rate Fraction of Inspired Oxygen 10/31/24 19:49 10/31/24 21:10 11/01/24 04:22 Temperature 97.9 F Pulse Rate 84 84 83 Respiratory Rate 20 14 20 Blood Pressure 152/80 H Pulse Oximetry 95 98 Oxygen Delivery Room Air Oxygen Flow Rate Fraction of Inspired Oxygen 21 11/01/24 06:04 11/01/24 08:00 11/01/24 14:26 Temperature 97.6 F 98.0 F Pulse Rate 82 82 Respiratory Rate 16 18 Blood Pressure 117/81 140/79 Pulse Oximetry 100 100 Oxygen Delivery Room Air Oxygen Flow Rate Fraction of Inspired Oxygen 11/01/24 15:14 11/01/24 15:33 11/01/24 15:58 Temperature 98.4 F 97.8 F 98.6 F Pulse Rate 84 83 84 Respiratory Rate 20 20 21 H Blood Pressure 144/94 H 142/98 H 118/78 Pulse Oximetry 100 100 100 Oxygen Delivery Room Air Room Air Nasal Cannula Oxygen Flow Rate 4 Fraction of Inspired Oxygen 11/01/24 16:08 11/01/24 16:18 Temperature Pulse Rate 87 80 Respiratory Rate 20 25 H Blood Pressure 121/78 125/83 Pulse Oximetry 100 100 Oxygen Delivery Nasal Cannula Room Air Oxygen Flow Rate 4 Fraction of Inspired Oxygen Intake/Output Intake/Output: Intake & Output 10/29/24 10/30/24 10/31/24 11/01/24 23:59 23:59 23:59 23:59 Intake Total 5408 1765.1 2022.5 1356 Output Total 4025 4400 5500 2300 Balance 1383 -2634.9 -3477.5 -944 Meds/Results Medications: Active Medications Generic Name Dose Route Start Last Admin Trade Name Freq PRN Reason Stop Dose Admin Dextrose 12.5 gm 10/17/24 21:26 10/30/24 05:55 Dextrose 50% 25 Gm/50 Ml Syringe IV PUSH 12.5 gm PRN PRN Administration Hypoglycemia Protocol Enoxaparin Sodium 30 mg 10/18/24 09:00 Enoxaparin 30 Mg/0.3 Ml Syringe SUB-Q DAILY HJONY Folic Acid 1 mg 10/24/24 09:00 11/01/24 09:12 Folic Acid 1 Mg Tablet FEED TUBE 1 mg QAM JHONY Administration Glucagon 1 mg 10/17/24 21:26 Glucagon For Inj 1 Mg Vial IM PRN PRN Hypoglycemia Protocol Glucose 15 gm 10/17/24 21:26 Glucose Oral Gel 15 Gm Of Glucse In 37.5 Gm Tube PO PRN PRN Hypoglycemia Protocol Dextrose 1,000 mls @ 100 mls/hr 10/17/24 21:26 Dextrose 5% 1,000 Ml IVPB PRN PRN Hypoglycemia Protocol Sodium Chloride 1,000 mls @ 75 mls/hr 10/22/24 20:40 11/01/24 02:30 Sodium Chloride 0.45% IV CONT 75 mls/hr .[id number] JHONY Administration Magnesium Sulfate 2 gm in 50 mls @ 50 mls/hr 11/01/24 16:27 Magnesium Sulf 2 Gm/Water 50ml IVPB 11/01/24 17:26 ONCE ONE Pantoprazole Sodium 40 mg 10/18/24 21:00 11/01/24 09:12 Pantoprazole Sodium Iv 40 Mg Vial IV PUSH 40 mg Q12HR JHONY Administration Thiamine HCl 100 mg 10/24/24 09:00 11/01/24 09:14 Thiamine Hcl 100 Mg Tablet FEED TUBE 100 mg QAM JHONY Administration Radiology Results: ITS Impressions Chest/Abdomen/Pelvis CT 10/17/24 10:46 IMPRESSION: No hollow or solid organ injury. No acute fractures. Head CT 10/19/24 09:19 Impression: No acute intracranial hemorrhage or suspicious mass effect. Inflammatory sinus disease. Face CT 10/19/24 09:39 IMPRESSION: 1. Extensive sinus disease with near complete opacification of the right maxillary sinus and dependently layering fluid in the bilateral sphenoid sinuses. Correlate clinically for acute sinusitis. 2. Dental and periodontal disease with periapical lucency surrounding the posterior most remaining right maxillary molar. Renal Ultrasound 10/19/24 09:48 IMPRESSION: No hydronephrosis or renal calculi. No parenchymal findings to suggest the presence of medical renal disease. Simple cysts within the right kidney, for which no further follow-up is needed. Brain MRI 10/24/24 14:22 IMPRESSION: 1. Age-related changes the brain. No acute intracranial process. 2. Prominent sinus disease with fluid nearly filling the right maxillary sinus and layering dependently in the bilateral sphenoid sinuses. Correlate clinically for acute sinusitis. Chest X-Ray 10/29/24 14:04 Impression: Clear lungs. NG tube in place. Lumbar Puncture Fluoroscopy 10/31/24 17:34 IMPRESSION: 1. Successful fluoro-guided lumbar puncture with mildly elevated opening pressure of 23 cm water. Labs Labs: Laboratory Results - last 24 hr 10/31/24 11/01/24 11/01/24 16:46 00:34 03:34 WBC RBC Hgb Hct MCV MCH MCHC RDW Plt Count MPV Immature Gran % (Auto) Neut % (Auto) Lymph % (Auto) [place] % (Auto) Eos % (Auto) Baso % (Auto) Lymph # (Auto) [place] # (Auto) Eos # (Auto) Baso # (Auto) Abs Immat Gran (auto) Absolute Neuts (auto) Absolute Nucleated RBC Band Neutrophils % Nucleated RBC % Atypical Lymphocytes Platelet Estimate Hypochromasia Anisocytosis Schistocytes Sodium Potassium Chloride Carbon Dioxide Anion Gap BUN Creatinine Estim Creat Clear Calc Estimated GFR Glucose POC Capillary Glucose 89 77 Calcium Magnesium Total Bilirubin AST ALT Alkaline Phosphatase Total Creatine Kinase Total Protein Albumin CSF Source Csf CSF Appearance Clear CSF Color Colorless CSF RBC 6 H CSF Tot Nucleated Cells 1 CSF Lymphocytes 100 H CSF Glucose 55 CSF Total Protein 188 H 11/01/24 11/01/24 11/01/24 05:28 05:59 07:53 WBC 7.5 RBC 2.79 L Hgb 8.1 L Hct 25.6 L MCV 91.8 MCH 29.0 MCHC 31.6 L RDW 23.8 H Plt Count 292 MPV 11.2 H Immature Gran % (Auto) 0.5 Neut % (Auto) 44.7 L Lymph % (Auto) 32.8 [place] % (Auto) 16.8 H Eos % (Auto) 4.8 H Baso % (Auto) 0.4 Lymph # (Auto) 2.44 [place] # (Auto) 1.3 H Eos # (Auto) 0.4 H Baso # (Auto) 0.0 Abs Immat Gran (auto) 0.04 H Absolute Neuts (auto) 3.3 Absolute Nucleated RBC 0.000 Band Neutrophils % Not Reportable Nucleated RBC % 0.0 Atypical Lymphocytes Present Platelet Estimate Adequate Hypochromasia 1+ Anisocytosis 2+ Schistocytes None seen Sodium 136 L Potassium 4.6 Chloride 107 Carbon Dioxide 23 Anion Gap 6 BUN 15 Creatinine 1.00 Estim Creat Clear Calc 59 Estimated GFR > 60 Glucose 86 POC Capillary Glucose 75 82 Calcium 8.5 Magnesium 1.3 L Total Bilirubin 0.8 AST 38 ALT 21 Alkaline Phosphatase 147 H Total Creatine Kinase 86 Total Protein 6.2 L Albumin 2.6 L CSF Source CSF Appearance CSF Color CSF RBC CSF Tot Nucleated Cells CSF Lymphocytes CSF Glucose CSF Total Protein 11/01/24 11:44 WBC RBC Hgb Hct MCV MCH MCHC RDW Plt Count MPV Immature Gran % (Auto) Neut % (Auto) Lymph % (Auto) [place] % (Auto) Eos % (Auto) Baso % (Auto) Lymph # (Auto) [place] # (Auto) Eos # (Auto) Baso # (Auto) Abs Immat Gran (auto) Absolute Neuts (auto) Absolute Nucleated RBC Band Neutrophils % Nucleated RBC % Atypical Lymphocytes Platelet Estimate Hypochromasia Anisocytosis Schistocytes Sodium Potassium Chloride Carbon Dioxide Anion Gap BUN Creatinine Estim Creat Clear Calc Estimated GFR Glucose POC Capillary Glucose 80 Calcium Magnesium Total Bilirubin AST ALT Alkaline Phosphatase Total Creatine Kinase Total Protein Albumin CSF Source CSF Appearance CSF Color CSF RBC CSF Tot Nucleated Cells CSF Lymphocytes CSF Glucose CSF Total Protein
[2024-11-01] MEDS: MAGNESIUM SULF 2 GM/WATER 50ML 2 GM/50 ML BAG IVPB (17:36)
[2024-11-02 05:58] VITALS: BP 126/73; PULSE 80; RESP 16; TEMP 36.7; O2SAT 100
[2024-11-02 05:59] LABS: Hematocrit 27.1 % (42.0-52.0); Hemoglobin 8.2 g/dL (14.0-18.0); Immature Granulocyte Percent A 0.4 % (0-0.5); Lymphocytes Absolute Auto 2.09 K/mm3 (0.9-3.2); Mean Corpuscular HGB Conc 30.3 g/dl (32-36); Mean Corpuscular Hemoglobin 28.5 pg (26-34); Mean Corpuscular Volume 94.1 fl (80-100); Nucleated Red Blood Cells Absolute Auto 0.000 K/mm3 (0.0-0.012); Nucleated Red Blood Cells Perc 0.0 % (0.0-0.2); Platelet Count Result 267 k/mm3 (150-375); Red Blood Count 2.88 M/mm3 (4.6-6.20); White Blood Count 7.0 K/mm3 (4.5-10.0)
[2024-11-02 06:17] LABS: Alanine Aminotransferase 20 U/L (6-50); Albumin Level 2.7 g/dL (3.5-5.1); Alkaline Phosphatase 156 U/L (38-126); Anion Gap 7 mmol/L (4-12); Aspartate Amino Transferase 36 U/L (17-59); Bilirubin,Total 0.6 mg/dL (0.2-1.3); Blood Urea Nitrogen 16 mg/dL (9-20); Calcium 8.6 mg/dL (8.4-10.2); Carbon Dioxide 21 mmol/L (22-30); Chloride 107 mmol/L (98-107); Creatine Kinase 65 U/L (55-170); Estimated CRCL calculation 62 ml/min; Estimated Glomerular Filt Rate > 60; Glucose 114 mg/dL (65-110); Magnesium 1.7 mg/dL (1.6-2.3); Potassium 4.6 mmol/L (3.4-5.0); Sodium 135 mmol/L (137-145); Total Protein 6.4 g/dL (6.3-8.2)
[2024-11-02 07:09] LABS: Anisocytosis 2+; Hypochromasia 1+; Target Cells 1+; Tear Drop Cells 1+
[2024-11-02 07:10] LABS: Acanthocytes 1+; Schistocytes None Seen
[2024-11-02 07:14] LABS: West Nile Virus, IgM. <0.90 index
[2024-11-02] MEDS: FOLIC ACID 1 MG TABLET FEED TUBE (08:17)
[2024-11-02] MEDS: THIAMINE HCL 100 MG TABLET FEED TUBE (08:17)
[2024-11-02] MEDS: PANTOPRAZOLE SODIUM IV 40 MG VIAL IV PUSH ×2 (08:17→20:06)
[2024-11-02] MEDS: ENOXAPARIN 40 MG/0.4 ML SYRINGE SUB-Q (08:18)
[2024-11-02] MEDS: SODIUM CHLORIDE 0.45% 1,000 ML 75 ML IV CONT ×2 (09:09→23:22)
--- NOTE | 2024-11-02 09:18 | PM.CNGS ---
Assessment and Plan Assessment and plan (1) Alcohol abuse: Code(s): F10.10 - Alcohol abuse, uncomplicated Status: Acute (2) Altered mental status: Qualifiers: Altered mental status type: disorientation Qualified Code(s): R41.0 - Disorientation, unspecified Code(s): R41.82 - Altered mental status, unspecified Status: Acute Assessment and Plan: Multifactorial - could be related to hypovolemia, shock, hypotension, ALEJANDRO, rhabdo (3) Acute kidney injury: Code(s): N17.9 - Acute kidney failure, unspecified Status: Acute Assessment and Plan: Likely related to hypotension, hypovolemia, shock, rhabdo. Labs have since normalized. Continue to monitor urine output, electrolytes and renal function. Continue with nephrology recs. (4) Rhabdomyolysis: Qualifiers: Encounter type: initial encounter Rhabdomyolysis type: traumatic Qualified Code(s): T79.6XXA - Traumatic ischemia of muscle, initial encounter Code(s): M62.82 - Rhabdomyolysis Status: Acute Assessment and Plan: Likely due to being on the ground for unknown period of time. Continue IV fluids per nephrology recs. (5) Metabolic encephalopathy: Code(s): G93.41 - Metabolic encephalopathy Status: Acute Assessment and Plan: Patient is a good candidate for PEG tube placement. Due to previous Bilroth I procedure, it was difficult for GI to safely place PEG tube yesterday via EGD. Plan for general surgery to surgically place PEG tube next week. Of note, patient is currrently on Lovenox, which may need to be held prior to surgery once OR date and time confirmed. Plan Discussed patient's case and plan of care with Dr. Ortiz. History of Present Illness Consult details Consult date: 11/02/24 Narrative: Patient is a 69-year-old male with rhabdomyolysis, encephalopathy, and ALEJANDRO, as well as histroy of alcohol abuse, who we were asked to see in consultation for placement of feeding tube after failed attempt of PEG tube placement by GI yesterday. Patient presented to the ED on 10/17/24 the EMS after being found face down and hypotensive with systolic in the 50s. Patient was placed on Levophed but has been off it since morning of 10/18. Chest x-ray and CT chest abdomen pelvis insignificant. CT brain did not show any acute intracranial hemorrhage or suspicious mass effect. Face CT showed extensive sinus disease and dental and periodontal disease. Patient has been on cefepime, vanc, azithromycin, and ceftriaxone, which have since been discontinued since no nidus of infection was identified. Patient currently has g-tube in place. GI performed EGD yesterday, but d/t Bilroth I gastroduodenostomy present in remaining antrum, no transillumination window was able to be achieved in the abdominal wall to safely attempt PEG placement. Vital signs have remained stable overnight. WBC normal since admission. Procalcitonin 2.5 and 3.6 on 10/17 and 10/18,respectively. C dif positive on 10/22. 10 day course of oral vancomycin completed yesterday. CSF gram stain and culture pending. No growth on blood culture. BUN, Creatinine, CrCl, and GFR all normalized. REPLACED BY [facility] Past Medical History Medical History Metabolic encephalopathy Alcohol abuse Acute encephalopathy Cancer Gout Social History Social History Smoking packs per day: 0.3 Smoking cigarettes per day: 6.0 Smoking status: Former smoker Additional smoking assessment comments: unknown when quit Spiritual care concerns: No Meds Home Medications and Allergies Home Medications ?Medication ?Instructions ?Recorded ?Confirmed ?Type allopurinol 100 mg tablet 100 mg PO DAILY 10/18/24 10/18/24 History amlodipine 10 mg tablet 10 mg PO DAILY 10/18/24 10/18/24 History aspirin 81 mg tablet,delayed 81 mg PO DAILY 10/18/24 10/18/24 History release carvedilol 12.5 mg tablet 12.5 mg PO BID 10/18/24 10/18/24 History rosuvastatin 10 mg tablet 10 mg PO DAILY 10/18/24 10/18/24 History Allergies Allergy/AdvReac Type Severity Reaction Status Date / Time lisinopril Allergy Severe angioedema Verified 11/01/24 15:38 fenofibrate Allergy Intermediate hives Verified 11/01/24 15:38 Penicillins Allergy hives Verified 11/01/24 15:38 Vital Signs Vital Signs - 24 hr 11/01/24 14:00 11/01/24 14:26 11/01/24 15:14 Temperature 98.0 F 98.0 F 98.4 F Pulse Rate 80 82 84 Respiratory Rate 20 18 20 Blood Pressure 140/70 140/79 144/94 H Pulse Oximetry 100 100 100 Oxygen Delivery Room Air Oxygen Flow Rate 11/01/24 15:33 11/01/24 15:58 11/01/24 16:08 Temperature 97.8 F 98.6 F Pulse Rate 83 84 87 Respiratory Rate 20 21 H 20 Blood Pressure 142/98 H 118/78 121/78 Pulse Oximetry 100 100 100 Oxygen Delivery Room Air Nasal Cannula Nasal Cannula Oxygen Flow Rate 4 4 11/01/24 16:18 11/01/24 20:48 11/02/24 05:58 Temperature 97.6 F 98.0 F Pulse Rate 80 76 80 Respiratory Rate 25 H 16 16 Blood Pressure 125/83 115/65 126/73 Pulse Oximetry 100 100 100 Oxygen Delivery Room Air Oxygen Flow Rate Exam Narrative: Exam very limited d/t patient's altered mental status. Const: General: comfortable and no acute distress Eyes: General: appearance normal, both eyes and all related structures Neck: Neck: supple Resp: Effort & Inspection: normal respiratory effort Cardio: Rate: regular rate GI: Inspection: non-distended GI Palp: Yes Soft to palpation and No Tenderness to palpation present (GI) Auscultation: normal bowel sounds Other: Large midline healed scar - likely from Bilroth I procedure : General: Yes bladder normal to palpation Urinary Catheter: Urinary Catheter: patent and draining and urine clear Skin: General skin exam: normal color Extrem: General: normal to inspection Results Labs 11/02/24 05:28 11/02/24 05:28 Labs: Abnormal lab results 11/02/24 11/02/24 Range/Units 01:28 05:28 RBC 2.88 L (4.6-6.20) M/mm3 Hgb 8.2 L (14.0-18.0) g/dL Hct 27.1 L (42.0-52.0) % MCHC 30.3 L (32-36) g/dl RDW 23.8 H (11.5-14.5) % MPV 11.8 H (7.4-10.4) fl Neut % (Auto) 44.7 L (45.5-73.1) % [place] % (Auto) 18.8 H (2.6-8.5) % Eos % (Auto) 5.6 H (0-4.4) % [place] # (Auto) 1.3 H (0.1-0.6) K/mm3 Eos # (Auto) 0.4 H (0-0.3) K/mm3 Sodium 135 L (137-145) mmol/L Carbon Dioxide 21 L (22-30) mmol/L Glucose 114 H (65-110) mg/dL POC Capillary Glucose 108 H (65-105) mg/dl Alkaline Phosphatase 156 H (38-126) U/L Albumin 2.7 L (3.5-5.1) g/dL Diabetes panel 11/02/24 Range/Units 05:28 Sodium 135 L (137-145) mmol/L Potassium 4.6 (3.4-5.0) mmol/L Chloride 107 (98-107) mmol/L Carbon Dioxide 21 L (22-30) mmol/L BUN 16 (9-20) mg/dL Creatinine 0.94 (0.7-1.3) mg/dL Glucose 114 H (65-110) mg/dL Calcium 8.6 (8.4-10.2) mg/dL AST 36 (17-59) U/L ALT 20 (6-50) U/L Alkaline Phosphatase 156 H (38-126) U/L Total Protein 6.4 (6.3-8.2) g/dL Albumin 2.7 L (3.5-5.1) g/dL Calcium panel 11/02/24 Range/Units 05:28 Calcium 8.6 (8.4-10.2) mg/dL Albumin 2.7 L (3.5-5.1) g/dL Pituitary panel 11/02/24 Range/Units 05:28 Sodium 135 L (137-145) mmol/L Potassium 4.6 (3.4-5.0) mmol/L Chloride 107 (98-107) mmol/L Carbon Dioxide 21 L (22-30) mmol/L BUN 16 (9-20) mg/dL Creatinine 0.94 (0.7-1.3) mg/dL Glucose 114 H (65-110) mg/dL Calcium 8.6 (8.4-10.2) mg/dL Adrenal panel 06/13/25 Range/Units 05:28 Sodium 135 L (137-145) mmol/L Potassium 4.6 (3.4-5.0) mmol/L Chloride 107 (98-107) mmol/L Carbon Dioxide 21 L (22-30) mmol/L BUN 16 (9-20) mg/dL Creatinine 0.94 (0.7-1.3) mg/dL Glucose 114 H (65-110) mg/dL Calcium 8.6 (8.4-10.2) mg/dL Total Bilirubin 0.6 (0.2-1.3) mg/dL AST 36 (17-59) U/L ALT 20 (6-50) U/L Alkaline Phosphatase 156 H (38-126) U/L Total Protein 6.4 (6.3-8.2) g/dL Albumin 2.7 L (3.5-5.1) g/dL All other labs normal.
--- NOTE | 2024-11-02 11:41 | PCNFU ---
Nutrition Follow-Up Complete: Inadequate Oral Intake as related to AMS as evidenced by NPO. Goal: Meet estimated nutritional needs Patient will continue current goal. Pt current nutrition is NPO. Nutrition recommendation: Jevity 1.5 at 55 ml/hr. Flush 100 ml q 4 hours. Last recorded weight is 76.6 kg, up from 66 kg on admit. Bowel Motility: FMS Labs Reviewed:Glu 114, Na 135, Hct 27.1, Alb 2.7, Hgb 8.2 Meds Noted: Rocephin, Folic Acid, Lovenox, Protonix Skin: WNL Additional Notes: Patient currently NPO. GI unable to place PEG. Surgery consult. will monitor weight, labs, skin, diet orders, meds every Tuesday and Tuesday.
--- NOTE | 2024-11-02 11:46 | PCPTNOTE ---
Attempted to see patient for PT, however patient was working with OT then having to leave room for X-ray.
--- NOTE | 2024-11-02 13:14 | PCOTNOTE ---
Attempted to see Patient this A.M. Patient unable to participate, Patient was able to open eyes with calling out of his name. Patient did not follow any commands, attempted to move UEs, flaccid. RN notified and aware. Will speak with OTR about decreasing frequency until able to increase response
--- NOTE | 2024-11-02 13:43 | PM.IMPN ---
Progress Note: A&P Assessment and Plan (1) Shock: Code(s): R57.9 - Shock, unspecified Status: Acute Assessment and Plan: RESOLVED 10/17: EMS arrived at patient's house: he was found face down with, hypotensive with systolic in the 50s, patient given IV fluids in the ER, central line inserted, started on Levophed. CT head was negative. Chest x-ray with no focal infiltrate or effusion. CT chest abdomen pelvis with no acute findings. Face CT with extensive sinus disease with near complete opacification of the right maxillary sinus and dependently layering fluid in the bilateral sphenoid sinuses. Dental and periodontal disease with periapical lucency surrounding the posterior-most remaining right maxillary molar. -off Levophed since the morning of 10/18 -procalcitonin levels are at high -patient was started on cefepime and vancomycin which was discontinued since there was no nidus of infection -MRSA screen is negative, -10/17: Blood cultures negative-so far -no nidus of infection on either chest x-ray, CT chest abdomen and pelvis, UA was clear, -10/19: given low body temperature, elevated procalcitonin started on ceftriaxone empirically. Procalcitonin can also be raised in tissue injury -10/19: UA reflective of UTI, also given sinusitis on CT scan of the face, started patient on ceftriaxone since 10/19/2024. Urine culture not obtained. Now concluded Liquid stool. Could be tube feed related. C diff came back positive Started on vancomycin 10/22/2024 and concluded 11/01/2024 (2) Altered mental status: Qualifiers: Altered mental status type: disorientation Qualified Code(s): R41.0 - Disorientation, unspecified Code(s): R41.82 - Altered mental status, unspecified Status: Acute Assessment and Plan: Altered mental status is multifactorial could be related to hypovolemia, shock, hypotension, acute kidney injury, rhabdomyolysis -CT brain was negative for intracranial abnormalities -MRI cannot be performed as patient was in the [place] and may have sharpnel exposure according to his daughter -10/19: Repeat CT brain did not show any acute intracranial hemorrhage or suspicious mass effect, inflammatory sinus disease. -10/19: CT facial bones showed extensive sinus disease with near complete opacification of the right maxillary sinus and dependently layering fluid in the bilateral sphenoid sinuses. Dental and periodontal disease with periapical lucency surrounding the posterior most remaining right maxillary molar Despite improvement in metabolic issues he remains encephalopathic Neurology consultation Brain MRI: Age-related changes in the brain with no acute intracranial process. Prominent sinus disease with fluid nearly filling the right maxillary sinus and layering dependently in the bilateral sphenoid sinuses. EEG performed: No seizure activity noted. Lumbar puncture 10/31/2024 with mildly elevated opening pressure of 23 cm water CSF with high-protein (3) Fall (on) (from) other stairs and steps, initial encounter: Code(s): W10.8XXA - Fall (on) (from) other stairs and steps, initial encounter Status: Acute Assessment and Plan: Patient was found on the ground face down unknown amount of time, unknown etiology -continue treat underlying cause -10/18: Echocardiogram showed EF of 60-65%, normal biventricular size and systolic function, no significant valvular abnormalities (4) Acute kidney injury: Code(s): N17.9 - Acute kidney failure, unspecified Status: Acute Assessment and Plan: Acute kidney injury likely related to hypotension, hypovolemia, shock, rhabdomyolysis -patient received 3 L IV fluid bolus in the ER -started on bicarb infusion -patient was hypernatremic on admission, -sodium levels trending down gradually currently on bicarb infusion per Nephrology -continue to monitor urine output, electrolytes and renal function -patient presented with creatinine of 3.0 (baseline 1.0 in October 2023 at [facility]) -urine lytes not reflective of prerenal picture, urine eosinophils are negative -CT scan of the abdomen and pelvis did not show any hydronephrosis -renal ultrasound: No hydronephrosis or renal calculi, no apparent, findings to suggest the presence of medical renal disease. Simple cyst within the right kidney -CK levels trending down on admission 5864 peaked to 8292. -appreciate Nephrology evaluation and recommendation Conjunctival chemosis noted. IV fluids stopped Already getting tube feeds at 55 cc an hour (5) Rhabdomyolysis: Qualifiers: Encounter type: initial encounter Rhabdomyolysis type: traumatic Qualified Code(s): T79.6XXA - Traumatic ischemia of muscle, initial encounter Code(s): M62.82 - Rhabdomyolysis Status: Acute Assessment and Plan: Rhabdomyolysis likely related to being down on the ground for unknown amount of time -patient has been given 3 L IV fluids in the ER plus 500 mL of LR bolus in the ICU on 10/18. Patient seems to be adequately fluid-resuscitated -continue IV fluids per Nephrology CK levels trending down on admission 5864 peaked to 8292. (6) Electrolyte imbalance: Code(s): E87.8 - Other disorders of electrolyte and fluid balance, not elsewhere classified Status: Acute Assessment and Plan: Magnesium repleted (7) Anemia: Code(s): D64.9 - Anemia, unspecified Status: Acute Assessment and Plan: Patient dropped his hemoglobin this morning to 6.2 from 9.1 on admission -10/18: status post 2 units of packed RBCs -stool occult is negative -vitamin B12 levels are normal, folic acid is low will substitute -iron panel looks normal -hemoglobin remained stable EGD previous gastric surgery and evidence of gastritis GI and able to place G-tube. General surgery consulted (8) Thrombocytopenia: Code(s): D69.6 - Thrombocytopenia, unspecified Status: Acute Assessment and Plan: Thrombocytopenia with platelet counts of 62 this morning, 91 on admission -10/18: status post 1 unit of platelets -INR 1.2 on admission -platelets remain low, continue to monitor Does have history of chronic alcohol abuse per family. No baseline available Concern for TTP. Hematology consult HIT antibody negative ITP antibody negative Thrombocytopenia has resolved Subjective Date/time seen: 11/02/24 13:43 Interval history: No overnight events. Still having issue with mental status not able to eat or drink Review of Systems Review of Systems: ROS unobtainable: Yes unobtainable due to mental status Exam Narrative: Patient is comfortable, NAD HEENT: eyes are clear and none icteric, NG tube in place LUNGS: Diminished breath sounds bilaterally HEART: RR S1S2 ABD: BS+, Soft and nontender Lower extremities: no edema SKIN: nonjaundiced Neuro: Lethargic dysarthric follow some commands Objective Data Vital Signs Vital Signs: Vital Signs - 24 hr 11/01/24 14:00 11/01/24 14:26 11/01/24 15:14 Temperature 98.0 F 98.0 F 98.4 F Pulse Rate 80 82 84 Respiratory Rate 20 18 20 Blood Pressure 140/70 140/79 144/94 H Pulse Oximetry 100 100 100 Oxygen Delivery Room Air Oxygen Flow Rate 11/01/24 15:33 11/01/24 15:58 11/01/24 16:08 Temperature 97.8 F 98.6 F Pulse Rate 83 84 87 Respiratory Rate 20 21 H 20 Blood Pressure 142/98 H 118/78 121/78 Pulse Oximetry 100 100 100 Oxygen Delivery Room Air Nasal Cannula Nasal Cannula Oxygen Flow Rate 4 4 11/01/24 16:18 11/01/24 20:48 11/02/24 05:58 Temperature 97.6 F 98.0 F Pulse Rate 80 76 80 Respiratory Rate 25 H 16 16 Blood Pressure 125/83 115/65 126/73 Pulse Oximetry 100 100 100 Oxygen Delivery Room Air Oxygen Flow Rate 11/02/24 08:30 Temperature Pulse Rate Respiratory Rate Blood Pressure Pulse Oximetry Oxygen Delivery Room Air Oxygen Flow Rate Intake/Output Intake/Output: Intake & Output 10/30/24 10/31/24 11/01/24 11/02/24 23:59 23:59 23:59 23:59 Intake Total 1765.1 2022.5 2406 1960 Output Total 4400 5500 3950 Balance -2634.9 -3477.5 -1544 1959 Meds/Results Medications: Active Medications Generic Name Dose Route Start Last Admin Trade Name Freq PRN Reason Stop Dose Admin Dextrose 12.5 gm 10/17/24 21:26 10/30/24 05:55 Dextrose 50% 25 Gm/50 Ml Syringe IV PUSH 12.5 gm PRN PRN Administration Hypoglycemia Protocol Enoxaparin Sodium 40 mg 11/02/24 09:00 11/02/24 08:18 Enoxaparin 40 Mg/0.4 Ml Syringe SUB-Q 40 mg DAILY JHONY Administration Folic Acid 1 mg 10/24/24 09:00 11/02/24 08:17 Folic Acid 1 Mg Tablet FEED TUBE 1 mg QAM JHONY Administration Glucagon 1 mg 10/17/24 21:26 Glucagon For Inj 1 Mg Vial IM PRN PRN Hypoglycemia Protocol Glucose 15 gm 10/17/24 21:26 Glucose Oral Gel 15 Gm Of Glucse In 37.5 Gm Tube PO PRN PRN Hypoglycemia Protocol Dextrose 1,000 mls @ 100 mls/hr 10/17/24 21:26 Dextrose 5% 1,000 Ml IVPB PRN PRN Hypoglycemia Protocol Sodium Chloride 1,000 mls @ 75 mls/hr 10/22/24 20:40 11/02/24 09:09 Sodium Chloride 0.45% IV CONT 75 mls/hr .[id number] JHONY Administration Pantoprazole Sodium 40 mg 10/18/24 21:00 11/02/24 08:17 Pantoprazole Sodium Iv 40 Mg Vial IV PUSH 40 mg Q12HR JHONY Administration Thiamine HCl 100 mg 10/24/24 09:00 11/02/24 08:17 Thiamine Hcl 100 Mg Tablet FEED TUBE 100 mg QAM JHONY Administration Radiology Results: ITS Impressions Chest/Abdomen/Pelvis CT 10/17/24 10:46 IMPRESSION: No hollow or solid organ injury. No acute fractures. Head CT 10/19/24 09:19 Impression: No acute intracranial hemorrhage or suspicious mass effect. Inflammatory sinus disease. Face CT 10/19/24 09:39 IMPRESSION: 1. Extensive sinus disease with near complete opacification of the right maxillary sinus and dependently layering fluid in the bilateral sphenoid sinuses. Correlate clinically for acute sinusitis. 2. Dental and periodontal disease with periapical lucency surrounding the posterior most remaining right maxillary molar. Renal Ultrasound 10/19/24 09:48 IMPRESSION: No hydronephrosis or renal calculi. No parenchymal findings to suggest the presence of medical renal disease. Simple cysts within the right kidney, for which no further follow-up is needed. Brain MRI 10/24/24 14:22 IMPRESSION: 1. Age-related changes the brain. No acute intracranial process. 2. Prominent sinus disease with fluid nearly filling the right maxillary sinus and layering dependently in the bilateral sphenoid sinuses. Correlate clinically for acute sinusitis. Chest X-Ray 10/29/24 14:04 Impression: Clear lungs. NG tube in place. Lumbar Puncture Fluoroscopy 10/31/24 17:34 IMPRESSION: 1. Successful fluoro-guided lumbar puncture with mildly elevated opening pressure of 23 cm water. Upper GI Series 11/02/24 12:44 IMPRESSION: 1. Partial distal gastrectomy with gastroduodenal anastomosis. Nasogastric tube tip extends beyond the anastomosis with proximal side-port in the remaining body of the stomach. Labs Labs: Laboratory Results - last 24 hr 10/29/24 11/01/24 11/02/24 12:16 16:52 01:28 WBC RBC Hgb Hct MCV MCH MCHC RDW Plt Count MPV Immature Gran % (Auto) Neut % (Auto) Lymph % (Auto) [place] % (Auto) Eos % (Auto) Baso % (Auto) Lymph # (Auto) [place] # (Auto) Eos # (Auto) Baso # (Auto) Abs Immat Gran (auto) Absolute Neuts (auto) Absolute Nucleated RBC Band Neutrophils % Nucleated RBC % Platelet Estimate Hypochromasia Anisocytosis Target Cells Tear Drop Cells Acanthocytes (Spur) Schistocytes Sodium Potassium Chloride Carbon Dioxide Anion Gap BUN Creatinine Estim Creat Clear Calc Estimated GFR Glucose POC Capillary Glucose 74 108 H Calcium Magnesium Total Bilirubin AST ALT Alkaline Phosphatase Total Creatine Kinase Total Protein Albumin West Nile Virus IgM Ab <0.90 11/02/24 11/02/24 11/02/24 05:28 05:48 11:50 WBC 7.0 RBC 2.88 L Hgb 8.2 L Hct 27.1 L MCV 94.1 MCH 28.5 MCHC 30.3 L RDW 23.8 H Plt Count 267 MPV 11.8 H Immature Gran % (Auto) 0.4 Neut % (Auto) 44.7 L Lymph % (Auto) 29.9 [place] % (Auto) 18.8 H Eos % (Auto) 5.6 H Baso % (Auto) 0.6 Lymph # (Auto) 2.09 [place] # (Auto) 1.3 H Eos # (Auto) 0.4 H Baso # (Auto) 0.0 Abs Immat Gran (auto) 0.03 Absolute Neuts (auto) 3.1 Absolute Nucleated RBC 0.000 Band Neutrophils % Not Reportable Nucleated RBC % 0.0 Platelet Estimate Adequate Hypochromasia 1+ Anisocytosis 2+ Target Cells 1+ Tear Drop Cells 1+ Acanthocytes (Spur) 1+ Schistocytes None seen Sodium 135 L Potassium 4.6 Chloride 107 Carbon Dioxide 21 L Anion Gap 7 BUN 16 Creatinine 0.94 Estim Creat Clear Calc 62 Estimated GFR > 60 Glucose 114 H POC Capillary Glucose 103 118 H Calcium 8.6 Magnesium 1.7 Total Bilirubin 0.6 AST 36 ALT 20 Alkaline Phosphatase 156 H Total Creatine Kinase 65 Total Protein 6.4 Albumin 2.7 L West Nile Virus IgM Ab
[2024-11-02 14:00] VITALS: BP 132/82; PULSE 83; RESP 16; TEMP 36.9; O2SAT 100
--- NOTE | 2024-11-02 14:27 | P.PNAN_ITS ---
Anes - Prog Note Post-Op Date/Time: 11/02/24 14:27 Cardiovascular status: normal Respiratory status: normal Airway patency: baseline Mental status: baseline Post-Op hydration status: normal Vital Signs: Last Vital Signs Temp 36.7 C 11/02/24 05:58 Pulse 80 11/02/24 05:58 Resp 16 11/02/24 05:58 BP 126/73 11/02/24 05:58 Pulse Ox 100 11/02/24 05:58 O2 Del Method Room Air 11/02/24 08:30 O2 Flow Rate 4 11/01/24 16:08 FiO2 21 10/31/24 19:49 Pain Score (VAS): 1 I/O: Intake & Output 11/01/24 11/02/24 11/02/24 23:59 07:59 15:59 Intake Total 815 724 8061 Output Total 1650 Balance -5173 024 3283 Laboratory Tests 11/02/24 05:28 11/02/24 05:28 10/29/24 11/01/24 11/02/24 12:16 16:52 01:28 WBC RBC Hgb Hct MCV MCH MCHC RDW Plt Count MPV Immature Gran % (Auto) Neut % (Auto) Lymph % (Auto) [place] % (Auto) Eos % (Auto) Baso % (Auto) Lymph # (Auto) [place] # (Auto) Eos # (Auto) Baso # (Auto) Abs Immat Gran (auto) Absolute Neuts (auto) Absolute Nucleated RBC Band Neutrophils % Nucleated RBC % Platelet Estimate Hypochromasia Anisocytosis Target Cells Tear Drop Cells Acanthocytes (Spur) Schistocytes Sodium Potassium Chloride Carbon Dioxide Anion Gap BUN Creatinine Estim Creat Clear Calc Estimated GFR Glucose POC Capillary Glucose 74 108 H Calcium Magnesium Total Bilirubin AST ALT Alkaline Phosphatase Total Creatine Kinase Total Protein Albumin West Nile Virus IgM Ab <0.90 11/02/24 11/02/24 11/02/24 05:28 05:48 11:50 WBC 7.0 RBC 2.88 L Hgb 8.2 L Hct 27.1 L MCV 94.1 MCH 28.5 MCHC 30.3 L RDW 23.8 H Plt Count 267 MPV 11.8 H Immature Gran % (Auto) 0.4 Neut % (Auto) 44.7 L Lymph % (Auto) 29.9 [place] % (Auto) 18.8 H Eos % (Auto) 5.6 H Baso % (Auto) 0.6 Lymph # (Auto) 2.09 [place] # (Auto) 1.3 H Eos # (Auto) 0.4 H Baso # (Auto) 0.0 Abs Immat Gran (auto) 0.03 Absolute Neuts (auto) 3.1 Absolute Nucleated RBC 0.000 Band Neutrophils % Not Reportable Nucleated RBC % 0.0 Platelet Estimate Adequate Hypochromasia 1+ Anisocytosis 2+ Target Cells 1+ Tear Drop Cells 1+ Acanthocytes (Spur) 1+ Schistocytes None seen Sodium 135 L Potassium 4.6 Chloride 107 Carbon Dioxide 21 L Anion Gap 7 BUN 16 Creatinine 0.94 Estim Creat Clear Calc 62 Estimated GFR > 60 Glucose 114 H POC Capillary Glucose 103 118 H Calcium 8.6 Magnesium 1.7 Total Bilirubin 0.6 AST 36 ALT 20 Alkaline Phosphatase 156 H Total Creatine Kinase 65 Total Protein 6.4 Albumin 2.7 L West Nile Virus IgM Ab Microbiology 10/31/24 16:46 Cerebral Spinal Fluid CSF Culture - Preliminary Post-procedural complaints: none Patient Feedback: Patient satisfied with anesthetic care.
--- NOTE | 2024-11-02 18:49 | PC.NURSE ---
Ng tube was found to be discontinued at bedside. Pt AMS disoriented; pt grabbing at lines, drains, and fox. At 1742 call was placed to hospitalist, hospitalist ordered soft wrist restraints and NG tube to be reinserted.
[2024-11-02 20:10] VITALS: BP 139/66; PULSE 86; RESP 16; TEMP 36.9; O2SAT 100
[2024-11-03] VITALS (7 sets, daily range): BP systolic 115–128; BP diastolic 65–82; PULSE 67–91; RESP 16–22; TEMP 36.4–36.9; O2SAT 98–100
[2024-11-03 05:50] LABS: Hematocrit 21.7 % (42.0-52.0); Immature Granulocyte Percent A 0.6 % (0-0.5); Lymphocytes Absolute Auto 1.82 K/mm3 (0.9-3.2); Mean Corpuscular HGB Conc 31.8 g/dl (32-36); Mean Corpuscular Hemoglobin 29.2 pg (26-34); Mean Corpuscular Volume 91.9 fl (80-100); Nucleated Red Blood Cells Absolute Auto 0.000 K/mm3 (0.0-0.012); Nucleated Red Blood Cells Perc 0.0 % (0.0-0.2); Platelet Count Result 228 k/mm3 (150-375); Red Blood Count 2.36 M/mm3 (4.6-6.20); White Blood Count 6.3 K/mm3 (4.5-10.0)
[2024-11-03 06:19] LABS: Alanine Aminotransferase 15 U/L (6-50); Albumin Level 2.0 g/dL (3.5-5.1); Alkaline Phosphatase 110 U/L (38-126); Anion Gap 5 mmol/L (4-12); Aspartate Amino Transferase 30 U/L (17-59); Bilirubin,Total 0.4 mg/dL (0.2-1.3); Blood Urea Nitrogen 10 mg/dL (9-20); Calcium 6.7 mg/dL (8.4-10.2); Carbon Dioxide 19 mmol/L (22-30); Chloride 101 mmol/L (98-107); Estimated CRCL calculation 82 ml/min; Estimated Glomerular Filt Rate > 60; Glucose 85 mg/dL (65-110); Magnesium 1.2 mg/dL (1.6-2.3); Potassium 3.5 mmol/L (3.4-5.0); Sodium 125 mmol/L (137-145); Total Protein 5.1 g/dL (6.3-8.2)
[2024-11-03 06:27] LABS: Hemoglobin 6.9 g/dL (14.0-18.0)
[2024-11-03] MEDS: PANTOPRAZOLE SODIUM IV 40 MG VIAL IV PUSH ×2 (09:05→22:39)
[2024-11-03] MEDS: FOLIC ACID 1 MG TABLET FEED TUBE (09:06)
[2024-11-03] MEDS: THIAMINE HCL 100 MG TABLET FEED TUBE (09:06)
[2024-11-03] MEDS: ENOXAPARIN 40 MG/0.4 ML SYRINGE SUB-Q (09:07)
[2024-11-03] MEDS: MAGNESIUM SULF 2 GM/WATER 50ML 2 GM/50 ML BAG IVPB (09:09)
[2024-11-03 09:46] LABS: Sodium 135 mmol/L (137-145)
--- NOTE | 2024-11-03 14:45 | PM.IMPN ---
Progress Note: A&P Assessment and Plan (1) Shock: Code(s): R57.9 - Shock, unspecified Status: Acute Assessment and Plan: RESOLVED 10/17: EMS arrived at patient's house: he was found face down with, hypotensive with systolic in the 50s, patient given IV fluids in the ER, central line inserted, started on Levophed. CT head was negative. Chest x-ray with no focal infiltrate or effusion. CT chest abdomen pelvis with no acute findings. Face CT with extensive sinus disease with near complete opacification of the right maxillary sinus and dependently layering fluid in the bilateral sphenoid sinuses. Dental and periodontal disease with periapical lucency surrounding the posterior-most remaining right maxillary molar. -off Levophed since the morning of 10/18 -procalcitonin levels are at high -patient was started on cefepime and vancomycin which was discontinued since there was no nidus of infection -MRSA screen is negative, -10/17: Blood cultures negative-so far -no nidus of infection on either chest x-ray, CT chest abdomen and pelvis, UA was clear, -10/19: given low body temperature, elevated procalcitonin started on ceftriaxone empirically. Procalcitonin can also be raised in tissue injury -10/19: UA reflective of UTI, also given sinusitis on CT scan of the face, started patient on ceftriaxone since 10/19/2024. Urine culture not obtained. Now concluded Liquid stool. Could be tube feed related. C diff came back positive Started on vancomycin 10/22/2024 and concluded 11/01/2024 (2) Altered mental status: Qualifiers: Altered mental status type: disorientation Qualified Code(s): R41.0 - Disorientation, unspecified Code(s): R41.82 - Altered mental status, unspecified Status: Acute Assessment and Plan: Altered mental status is multifactorial could be related to hypovolemia, shock, hypotension, acute kidney injury, rhabdomyolysis -CT brain was negative for intracranial abnormalities -MRI cannot be performed as patient was in the [place] and may have sharpnel exposure according to his daughter -10/19: Repeat CT brain did not show any acute intracranial hemorrhage or suspicious mass effect, inflammatory sinus disease. -10/19: CT facial bones showed extensive sinus disease with near complete opacification of the right maxillary sinus and dependently layering fluid in the bilateral sphenoid sinuses. Dental and periodontal disease with periapical lucency surrounding the posterior most remaining right maxillary molar Despite improvement in metabolic issues he remains encephalopathic Neurology consultation Brain MRI: Age-related changes in the brain with no acute intracranial process. Prominent sinus disease with fluid nearly filling the right maxillary sinus and layering dependently in the bilateral sphenoid sinuses. EEG performed: No seizure activity noted. Lumbar puncture 10/31/2024 with mildly elevated opening pressure of 23 cm water CSF with high-protein (3) Fall (on) (from) other stairs and steps, initial encounter: Code(s): W10.8XXA - Fall (on) (from) other stairs and steps, initial encounter Status: Acute Assessment and Plan: Patient was found on the ground face down unknown amount of time, unknown etiology -continue treat underlying cause -10/18: Echocardiogram showed EF of 60-65%, normal biventricular size and systolic function, no significant valvular abnormalities (4) Acute kidney injury: Code(s): N17.9 - Acute kidney failure, unspecified Status: Acute Assessment and Plan: Acute kidney injury likely related to hypotension, hypovolemia, shock, rhabdomyolysis -patient received 3 L IV fluid bolus in the ER -started on bicarb infusion -patient was hypernatremic on admission, -sodium levels trending down gradually currently on bicarb infusion per Nephrology -continue to monitor urine output, electrolytes and renal function -patient presented with creatinine of 3.0 (baseline 1.0 in October 2023 at [facility]) -urine lytes not reflective of prerenal picture, urine eosinophils are negative -CT scan of the abdomen and pelvis did not show any hydronephrosis -renal ultrasound: No hydronephrosis or renal calculi, no apparent, findings to suggest the presence of medical renal disease. Simple cyst within the right kidney -CK levels trending down on admission 5864 peaked to 8292. -appreciate Nephrology evaluation and recommendation Conjunctival chemosis noted. IV fluids stopped Already getting tube feeds at 55 cc an hour (5) Rhabdomyolysis: Qualifiers: Encounter type: initial encounter Rhabdomyolysis type: traumatic Qualified Code(s): T79.6XXA - Traumatic ischemia of muscle, initial encounter Code(s): M62.82 - Rhabdomyolysis Status: Acute Assessment and Plan: Rhabdomyolysis likely related to being down on the ground for unknown amount of time -patient has been given 3 L IV fluids in the ER plus 500 mL of LR bolus in the ICU on 10/18. Patient seems to be adequately fluid-resuscitated -continue IV fluids per Nephrology CK levels trending down on admission 5864 peaked to 8292. (6) Electrolyte imbalance: Code(s): E87.8 - Other disorders of electrolyte and fluid balance, not elsewhere classified Status: Acute Assessment and Plan: Magnesium repleted (7) Anemia: Code(s): D64.9 - Anemia, unspecified Status: Acute Assessment and Plan: Patient dropped his hemoglobin this morning to 6.2 from 9.1 on admission -10/18: status post 2 units of packed RBCs -stool occult is negative -vitamin B12 levels are normal, folic acid is low will substitute -iron panel looks normal -hemoglobin remained stable EGD previous gastric surgery and evidence of gastritis GI and able to place G-tube. General surgery consulted and planned for G-tube placement next week (8) Thrombocytopenia: Code(s): D69.6 - Thrombocytopenia, unspecified Status: Acute Assessment and Plan: Thrombocytopenia with platelet counts of 62 this morning, 91 on admission -10/18: status post 1 unit of platelets -INR 1.2 on admission -platelets remain low, continue to monitor Does have history of chronic alcohol abuse per family. No baseline available Concern for TTP. Hematology consult HIT antibody negative ITP antibody negative Thrombocytopenia has resolved Plan Hyponatremia this a.m. noted with 125. Half-normal saline stopped. Repeat was 135. Will continue to monitor may be lab error Subjective Date/time seen: 11/03/24 14:45 Interval history: No overnight events. Labs reviewed. NG was pulled out which has been replaced. Review of Systems Review of Systems: ROS unobtainable: Yes unobtainable due to mental status Exam Narrative: Patient is comfortable, NAD HEENT: eyes are clear and none icteric, NG tube in place LUNGS: Diminished breath sounds bilaterally HEART: RR S1S2 ABD: BS+, Soft and nontender Lower extremities: no edema SKIN: nonjaundiced Neuro: Lethargic dysarthric follow some commands Objective Data Vital Signs Vital Signs: Vital Signs - 24 hr 11/02/24 20:10 11/03/24 05:42 11/03/24 10:57 Temperature 98.5 F 97.6 F 98.4 F Pulse Rate 86 67 84 Respiratory Rate 16 16 22 H Blood Pressure 139/66 127/76 120/67 Pulse Oximetry 100 98 100 11/03/24 11:12 11/03/24 12:12 11/03/24 13:20 Temperature 98.2 F 98.4 F 98.5 F Pulse Rate 83 84 80 Respiratory Rate 20 20 18 Blood Pressure 115/65 124/73 122/74 Pulse Oximetry 100 100 100 11/03/24 13:46 Temperature 98.5 F Pulse Rate 80 Respiratory Rate 18 Blood Pressure 122/74 Pulse Oximetry 100 Intake/Output Intake/Output: Intake & Output 10/31/24 11/01/24 11/02/24 11/03/24 23:59 23:59 23:59 23:59 Intake Total 2022.5 2406 2960 317 Output Total 5500 3950 800 1075 Balance -3477.5 -1544 2160 -840 Meds/Results Medications: Active Medications Generic Name Dose Route Start Last Admin Trade Name Freq PRN Reason Stop Dose Admin Dextrose 12.5 gm 10/17/24 21:26 10/30/24 05:55 Dextrose 50% 25 Gm/50 Ml Syringe IV PUSH 12.5 gm PRN PRN Administration Hypoglycemia Protocol Enoxaparin Sodium 40 mg 11/02/24 09:00 11/03/24 09:07 Enoxaparin 40 Mg/0.4 Ml Syringe SUB-Q 40 mg DAILY JHONY Administration Folic Acid 1 mg 10/24/24 09:00 11/03/24 09:06 Folic Acid 1 Mg Tablet FEED TUBE 1 mg QAM JHONY Administration Glucagon 1 mg 10/17/24 21:26 Glucagon For Inj 1 Mg Vial IM PRN PRN Hypoglycemia Protocol Glucose 15 gm 10/17/24 21:26 Glucose Oral Gel 15 Gm Of Glucse In 37.5 Gm Tube PO PRN PRN Hypoglycemia Protocol Dextrose 1,000 mls @ 100 mls/hr 10/17/24 21:26 Dextrose 5% 1,000 Ml IVPB PRN PRN Hypoglycemia Protocol Sodium Chloride 250 mls @ 30 mls/hr 11/03/24 06:45 Normal Saline Iv IV CONT 11/03/24 15:04 .[id number] STA Pantoprazole Sodium 40 mg 10/18/24 21:00 11/03/24 09:05 Pantoprazole Sodium Iv 40 Mg Vial IV PUSH 40 mg Q12HR JHONY Administration Thiamine HCl 100 mg 10/24/24 09:00 11/03/24 09:06 Thiamine Hcl 100 Mg Tablet FEED TUBE 100 mg QAM JHONY Administration Radiology Results: ITS Impressions Chest/Abdomen/Pelvis CT 10/17/24 10:46 IMPRESSION: No hollow or solid organ injury. No acute fractures. Head CT 10/19/24 09:19 Impression: No acute intracranial hemorrhage or suspicious mass effect. Inflammatory sinus disease. Face CT 10/19/24 09:39 IMPRESSION: 1. Extensive sinus disease with near complete opacification of the right maxillary sinus and dependently layering fluid in the bilateral sphenoid sinuses. Correlate clinically for acute sinusitis. 2. Dental and periodontal disease with periapical lucency surrounding the posterior most remaining right maxillary molar. Renal Ultrasound 10/19/24 09:48 IMPRESSION: No hydronephrosis or renal calculi. No parenchymal findings to suggest the presence of medical renal disease. Simple cysts within the right kidney, for which no further follow-up is needed. Brain MRI 10/24/24 14:22 IMPRESSION: 1. Age-related changes the brain. No acute intracranial process. 2. Prominent sinus disease with fluid nearly filling the right maxillary sinus and layering dependently in the bilateral sphenoid sinuses. Correlate clinically for acute sinusitis. Chest X-Ray 10/29/24 14:04 Impression: Clear lungs. NG tube in place. Lumbar Puncture Fluoroscopy 10/31/24 17:34 IMPRESSION: 1. Successful fluoro-guided lumbar puncture with mildly elevated opening pressure of 23 cm water. Upper GI Series 11/02/24 12:44 IMPRESSION: 1. Partial distal gastrectomy with gastroduodenal anastomosis. Nasogastric tube tip extends beyond the anastomosis with proximal side-port in the remaining body of the stomach. Labs Labs: Laboratory Results - last 24 hr 10/28/24 11/02/24 11/03/24 06:36 16:49 01:07 WBC RBC Hgb Hct MCV MCH MCHC RDW Plt Count MPV Immature Gran % (Auto) Neut % (Auto) Lymph % (Auto) [place] % (Auto) Eos % (Auto) Baso % (Auto) Lymph # (Auto) [place] # (Auto) Eos # (Auto) Baso # (Auto) Abs Immat Gran (auto) Absolute Neuts (auto) Absolute Nucleated RBC Nucleated RBC % Sodium Potassium Chloride Carbon Dioxide Anion Gap BUN Creatinine Estim Creat Clear Calc Estimated GFR Glucose POC Capillary Glucose 84 91 Calcium Magnesium Total Bilirubin AST ALT Alkaline Phosphatase Total Protein Albumin Blood Type Antibody Screen Crossmatch See Detail 11/03/24 11/03/24 11/03/24 05:19 05:21 07:14 WBC 6.3 RBC 2.36 L Hgb 6.9 L* Hct 21.7 L MCV 91.9 MCH 29.2 MCHC 31.8 L RDW 23.4 H Plt Count 228 MPV 11.1 H Immature Gran % (Auto) 0.6 H Neut % (Auto) 47.4 Lymph % (Auto) 29.0 [place] % (Auto) 17.4 H Eos % (Auto) 5.1 H Baso % (Auto) 0.5 Lymph # (Auto) 1.82 [place] # (Auto) 1.1 H Eos # (Auto) 0.3 Baso # (Auto) 0.0 Abs Immat Gran (auto) 0.04 H Absolute Neuts (auto) 3.0 Absolute Nucleated RBC 0.000 Nucleated RBC % 0.0 Sodium 125 L Potassium 3.5 Chloride 101 Carbon Dioxide 19 L Anion Gap 5 BUN 10 D Creatinine 0.70 Estim Creat Clear Calc 82 Estimated GFR > 60 Glucose 85 POC Capillary Glucose 106 H Calcium 6.7 L Magnesium 1.2 L Total Bilirubin 0.4 AST 30 ALT 15 Alkaline Phosphatase 110 Total Protein 5.1 L Albumin 2.0 L Blood Type B Negative Antibody Screen Negative Crossmatch See Detail 11/03/24 11/03/24 09:28 12:14 WBC RBC Hgb Hct MCV MCH MCHC RDW Plt Count MPV Immature Gran % (Auto) Neut % (Auto) Lymph % (Auto) [place] % (Auto) Eos % (Auto) Baso % (Auto) Lymph # (Auto) [place] # (Auto) Eos # (Auto) Baso # (Auto) Abs Immat Gran (auto) Absolute Neuts (auto) Absolute Nucleated RBC Nucleated RBC % Sodium 135 L Potassium Chloride Carbon Dioxide Anion Gap BUN Creatinine Estim Creat Clear Calc Estimated GFR Glucose POC Capillary Glucose 117 H Calcium Magnesium Total Bilirubin AST ALT Alkaline Phosphatase Total Protein Albumin Blood Type Antibody Screen Crossmatch
[2024-11-04 04:29] LABS: Lactic Acid CSF. 20.0 mg/dL (10-22)
[2024-11-04 05:38] LABS: Hematocrit 27.0 % (42.0-52.0); Hemoglobin 8.5 g/dL (14.0-18.0); Immature Granulocyte Percent A 0.9 % (0-0.5); Lymphocytes Absolute Auto 2.37 K/mm3 (0.9-3.2); Mean Corpuscular HGB Conc 31.5 g/dl (32-36); Mean Corpuscular Hemoglobin 28.5 pg (26-34); Mean Corpuscular Volume 90.6 fl (80-100); Nucleated Red Blood Cells Absolute Auto 0.000 K/mm3 (0.0-0.012); Nucleated Red Blood Cells Perc 0.0 % (0.0-0.2); Platelet Count Result 248 k/mm3 (150-375); Red Blood Count 2.98 M/mm3 (4.6-6.20); White Blood Count 8.1 K/mm3 (4.5-10.0)
[2024-11-04 05:57] LABS: Alanine Aminotransferase 19 U/L (6-50); Albumin Level 2.7 g/dL (3.5-5.1); Alkaline Phosphatase 133 U/L (38-126); Anion Gap 9 mmol/L (4-12); Aspartate Amino Transferase 37 U/L (17-59); Bilirubin,Total 0.4 mg/dL (0.2-1.3); Blood Urea Nitrogen 14 mg/dL (9-20); Calcium 8.5 mg/dL (8.4-10.2); Carbon Dioxide 22 mmol/L (22-30); Chloride 106 mmol/L (98-107); Estimated CRCL calculation 65 ml/min; Estimated Glomerular Filt Rate > 60; Glucose 113 mg/dL (65-110); Magnesium 1.6 mg/dL (1.6-2.3); Potassium 4.5 mmol/L (3.4-5.0); Sodium 137 mmol/L (137-145); Total Protein 6.7 g/dL (6.3-8.2)
[2024-11-04 06:27] LABS: Anisocytosis 2+
[2024-11-04 06:28] LABS: Schistocytes None Seen
[2024-11-04 07:51] VITALS: BP 129/77; PULSE 80; RESP 16; TEMP 36.7; O2SAT 100
[2024-11-04] MEDS: FOLIC ACID 1 MG TABLET FEED TUBE (10:16)
[2024-11-04] MEDS: ENOXAPARIN 40 MG/0.4 ML SYRINGE SUB-Q (10:16)
[2024-11-04] MEDS: ASPIRIN 81 MG CHEWABLE TABLET FEED TUBE (10:16)
[2024-11-04] MEDS: THIAMINE HCL 100 MG TABLET FEED TUBE (10:16)
[2024-11-04] MEDS: ROSUVASTATIN 10 MG TABLET FEED TUBE (10:16)
[2024-11-04] MEDS: PANTOPRAZOLE SODIUM IV 40 MG VIAL IV PUSH ×2 (10:23→21:24)
--- NOTE | 2024-11-04 13:40 | P.PNIM_ITS ---
Progress Note: A&P Assessment and Plan (1) Shock: Code(s): R57.9 - Shock, unspecified Status: Acute Assessment and Plan: RESOLVED 10/17: EMS arrived at patient's house: he was found face down with, hypotensive with systolic in the 50s, patient given IV fluids in the ER, central line inserted, started on Levophed. CT head was negative. Chest x-ray with no focal infiltrate or effusion. CT chest abdomen pelvis with no acute findings. Face CT with extensive sinus disease with near complete opacification of the right maxillary sinus and dependently layering fluid in the bilateral sphenoid sinuses. Dental and periodontal disease with periapical lucency surrounding the posterior-most remaining right maxillary molar. -off Levophed since the morning of 10/18 -procalcitonin levels are at high -patient was started on cefepime and vancomycin which was discontinued since there was no nidus of infection -MRSA screen is negative, -10/17: Blood cultures negative-so far -no nidus of infection on either chest x-ray, CT chest abdomen and pelvis, UA was clear, -10/19: given low body temperature, elevated procalcitonin started on ceftriaxone empirically. Procalcitonin can also be raised in tissue injury -10/19: UA reflective of UTI, also given sinusitis on CT scan of the face, started patient on ceftriaxone since 10/19/2024. Urine culture not obtained. Now concluded Liquid stool. Could be tube feed related. C diff came back positive Started on vancomycin 10/22/2024 and concluded 11/01/2024 (2) Altered mental status: Qualifiers: Altered mental status type: disorientation Qualified Code(s): R41.0 - Disorientation, unspecified Code(s): R41.82 - Altered mental status, unspecified Status: Acute Assessment and Plan: Altered mental status is multifactorial could be related to hypovolemia, shock, hypotension, acute kidney injury, rhabdomyolysis -CT brain was negative for intracranial abnormalities -MRI cannot be performed as patient was in the [place] and may have sharpnel exposure according to his daughter -10/19: Repeat CT brain did not show any acute intracranial hemorrhage or suspicious mass effect, inflammatory sinus disease. -10/19: CT facial bones showed extensive sinus disease with near complete opacification of the right maxillary sinus and dependently layering fluid in the bilateral sphenoid sinuses. Dental and periodontal disease with periapical lucency surrounding the posterior most remaining right maxillary molar Despite improvement in metabolic issues he remains encephalopathic Neurology consultation Brain MRI: Age-related changes in the brain with no acute intracranial process. Prominent sinus disease with fluid nearly filling the right maxillary sinus and layering dependently in the bilateral sphenoid sinuses. EEG performed: No seizure activity noted. Lumbar puncture 10/31/2024 with mildly elevated opening pressure of 23 cm water CSF with high-protein (3) Fall (on) (from) other stairs and steps, initial encounter: Code(s): W10.8XXA - Fall (on) (from) other stairs and steps, initial encounter Status: Acute Assessment and Plan: Patient was found on the ground face down unknown amount of time, unknown etiology -continue treat underlying cause -10/18: Echocardiogram showed EF of 60-65%, normal biventricular size and systolic function, no significant valvular abnormalities (4) Acute kidney injury: Code(s): N17.9 - Acute kidney failure, unspecified Status: Acute Assessment and Plan: Acute kidney injury likely related to hypotension, hypovolemia, shock, rhabdomyolysis -patient received 3 L IV fluid bolus in the ER -started on bicarb infusion -patient was hypernatremic on admission, -sodium levels trending down gradually currently on bicarb infusion per Nephrology -continue to monitor urine output, electrolytes and renal function -patient presented with creatinine of 3.0 (baseline 1.0 in October 2023 at [facility]) -urine lytes not reflective of prerenal picture, urine eosinophils are negative -CT scan of the abdomen and pelvis did not show any hydronephrosis -renal ultrasound: No hydronephrosis or renal calculi, no apparent, findings to suggest the presence of medical renal disease. Simple cyst within the right kidney -CK levels trending down on admission 5864 peaked to 8292. -appreciate Nephrology evaluation and recommendation Conjunctival chemosis noted. IV fluids stopped Already getting tube feeds at 55 cc an hour (5) Rhabdomyolysis: Qualifiers: Encounter type: initial encounter Rhabdomyolysis type: traumatic Qualified Code(s): T79.6XXA - Traumatic ischemia of muscle, initial encounter Code(s): M62.82 - Rhabdomyolysis Status: Acute Assessment and Plan: Rhabdomyolysis likely related to being down on the ground for unknown amount of time -patient has been given 3 L IV fluids in the ER plus 500 mL of LR bolus in the ICU on 10/18. Patient seems to be adequately fluid-resuscitated -continue IV fluids per Nephrology CK levels trending down on admission 5864 peaked to 8292. (6) Electrolyte imbalance: Code(s): E87.8 - Other disorders of electrolyte and fluid balance, not elsewhere classified Status: Acute Assessment and Plan: Magnesium repleted (7) Anemia: Code(s): D64.9 - Anemia, unspecified Status: Acute Assessment and Plan: Patient dropped his hemoglobin this morning to 6.2 from 9.1 on admission -10/18: status post 2 units of packed RBCs -stool occult is negative -vitamin B12 levels are normal, folic acid is low will substitute -iron panel looks normal -hemoglobin remained stable EGD previous gastric surgery and evidence of gastritis GI and able to place G-tube. General surgery consulted and planned for G-tube placement next week (8) Thrombocytopenia: Code(s): D69.6 - Thrombocytopenia, unspecified Status: Acute Assessment and Plan: Thrombocytopenia with platelet counts of 62 this morning, 91 on admission -10/18: status post 1 unit of platelets -INR 1.2 on admission -platelets remain low, continue to monitor Does have history of chronic alcohol abuse per family. No baseline available Concern for TTP. Hematology consult HIT antibody negative ITP antibody negative Thrombocytopenia has resolved Plan Hyponatremia noted 11/03/2024. Half-normal saline stopped. Repeat was 135 without much intervention. Likely a lab error. Subjective Date/time seen: 11/04/24 13:40 Interval history: More alert and conversive today. Labs reviewed. Discussed with nursing staff. Still has liquid stool. Review of Systems Review of Systems: All systems reviewed & are unremarkable except as noted in HPI and below ( Limited, A&O x1, unreliable) Exam Narrative: Patient is comfortable, NAD HEENT: eyes are clear and none icteric, NG tube in place LUNGS: Diminished breath sounds bilaterally HEART: RR S1S2 ABD: BS+, Soft and nontender Lower extremities: no edema SKIN: nonjaundiced Neuro: More alert and awake dysarthric follow some commands Objective Data Vital Signs Vital Signs: Vital Signs - 24 hr 11/03/24 13:46 11/03/24 20:30 11/03/24 20:30 Temperature 98.5 F 98.5 F Pulse Rate 80 91 Respiratory Rate 18 20 Blood Pressure 122/74 128/82 Pulse Oximetry 100 100 100 Oxygen Delivery Room Air Fraction of Inspired Oxygen 11/04/24 07:51 Temperature 98.0 F Pulse Rate 80 Respiratory Rate 16 Blood Pressure 129/77 Pulse Oximetry 100 Oxygen Delivery Fraction of Inspired Oxygen Intake/Output Intake/Output: Intake & Output 11/01/24 11/02/24 11/03/24 11/04/24 23:59 23:59 23:59 23:59 Intake Total 2406 2960 1397 Output Total 3950 800 2375 Balance -1544 2160 -978 Meds/Results Medications: Active Medications Generic Name Dose Route Start Last Admin Trade Name Freq PRN Reason Stop Dose Admin Aspirin 81 mg 11/04/24 08:00 11/04/24 10:16 Aspirin 81 Mg Chewable Tablet FEED TUBE 81 mg DAILY@0800 JHONY Administration Dextrose 12.5 gm 10/17/24 21:26 10/30/24 05:55 Dextrose 50% 25 Gm/50 Ml Syringe IV PUSH 12.5 gm PRN PRN Administration Hypoglycemia Protocol Enoxaparin Sodium 40 mg 11/02/24 09:00 11/04/24 10:16 Enoxaparin 40 Mg/0.4 Ml Syringe SUB-Q 40 mg DAILY JHONY Administration Folic Acid 1 mg 10/24/24 09:00 11/04/24 10:16 Folic Acid 1 Mg Tablet FEED TUBE 1 mg QAM JHONY Administration Glucagon 1 mg 10/17/24 21:26 Glucagon For Inj 1 Mg Vial IM PRN PRN Hypoglycemia Protocol Glucose 15 gm 10/17/24 21:26 Glucose Oral Gel 15 Gm Of Glucse In 37.5 Gm Tube PO PRN PRN Hypoglycemia Protocol Dextrose 1,000 mls @ 100 mls/hr 10/17/24 21:26 Dextrose 5% 1,000 Ml IVPB PRN PRN Hypoglycemia Protocol Pantoprazole Sodium 40 mg 10/18/24 21:00 11/04/24 10:23 Pantoprazole Sodium Iv 40 Mg Vial IV PUSH 40 mg Q12HR JHONY Administration Rosuvastatin Calcium 10 mg 11/04/24 09:00 11/04/24 10:16 Rosuvastatin 10 Mg Tablet FEED TUBE 10 mg DAILY JHONY Administration Saccharomyces Boulardii 250 mg 11/05/24 09:00 Saccharomyces Boulardii 250 Mg Capsule PO DAILY JHONY Thiamine HCl 100 mg 10/24/24 09:00 11/04/24 10:16 Thiamine Hcl 100 Mg Tablet FEED TUBE 100 mg QAM JHONY Administration Radiology Results: ITS Impressions Chest/Abdomen/Pelvis CT 10/17/24 10:46 IMPRESSION: No hollow or solid organ injury. No acute fractures. Head CT 10/19/24 09:19 Impression: No acute intracranial hemorrhage or suspicious mass effect. Inflammatory sinus disease. Face CT 10/19/24 09:39 IMPRESSION: 1. Extensive sinus disease with near complete opacification of the right maxillary sinus and dependently layering fluid in the bilateral sphenoid sinuses. Correlate clinically for acute sinusitis. 2. Dental and periodontal disease with periapical lucency surrounding the posterior most remaining right maxillary molar. Renal Ultrasound 10/19/24 09:48 IMPRESSION: No hydronephrosis or renal calculi. No parenchymal findings to suggest the presence of medical renal disease. Simple cysts within the right kidney, for which no further follow-up is needed. Brain MRI 10/24/24 14:22 IMPRESSION: 1. Age-related changes the brain. No acute intracranial process. 2. Prominent sinus disease with fluid nearly filling the right maxillary sinus and layering dependently in the bilateral sphenoid sinuses. Correlate clinically for acute sinusitis. Chest X-Ray 10/29/24 14:04 Impression: Clear lungs. NG tube in place. Lumbar Puncture Fluoroscopy 10/31/24 17:34 IMPRESSION: 1. Successful fluoro-guided lumbar puncture with mildly elevated opening pressure of 23 cm water. Upper GI Series 11/02/24 12:44 IMPRESSION: 1. Partial distal gastrectomy with gastroduodenal anastomosis. Nasogastric tube tip extends beyond the anastomosis with proximal side-port in the remaining body of the stomach. Labs Labs: Laboratory Results - last 24 hr 10/31/24 11/03/24 11/03/24 16:46 16:57 20:31 WBC RBC Hgb Hct MCV MCH MCHC RDW Plt Count MPV Immature Gran % (Auto) Neut % (Auto) Lymph % (Auto) Riley % (Auto) Eos % (Auto) Baso % (Auto) Lymph # (Auto) Riley # (Auto) Eos # (Auto) Baso # (Auto) Abs Immat Gran (auto) Absolute Neuts (auto) Absolute Nucleated RBC Band Neutrophils % Nucleated RBC % Platelet Estimate Anisocytosis Schistocytes Sodium Potassium Chloride Carbon Dioxide Anion Gap BUN Creatinine Estim Creat Clear Calc Estimated GFR Glucose POC Capillary Glucose 109 H 112 H Calcium Magnesium Total Bilirubin AST ALT Alkaline Phosphatase Total Protein Albumin CSF Lactic Acid 20.0 11/04/24 11/04/24 11/04/24 00:32 04:49 12:29 WBC 8.1 RBC 2.98 L Hgb 8.5 L Hct 27.0 L MCV 90.6 MCH 28.5 MCHC 31.5 L RDW 22.2 H Plt Count 248 MPV 11.5 H Immature Gran % (Auto) 0.9 H Neut % (Auto) 50.2 Lymph % (Auto) 29.1 Riley % (Auto) 14.9 H Eos % (Auto) 4.2 Baso % (Auto) 0.7 Lymph # (Auto) 2.37 Riley # (Auto) 1.2 H Eos # (Auto) 0.3 Baso # (Auto) 0.1 Abs Immat Gran (auto) 0.07 H Absolute Neuts (auto) 4.1 Absolute Nucleated RBC 0.000 Band Neutrophils % Not Reportable Nucleated RBC % 0.0 Platelet Estimate Adequate Anisocytosis 2+ Schistocytes None seen Sodium 137 Potassium 4.5 Chloride 106 Carbon Dioxide 22 Anion Gap 9 BUN 14 Creatinine 0.90 Estim Creat Clear Calc 65 Estimated GFR > 60 Glucose 113 H POC Capillary Glucose 110 H 100 Calcium 8.5 Magnesium 1.6 Total Bilirubin 0.4 AST 37 ALT 19 Alkaline Phosphatase 133 H Total Protein 6.7 Albumin 2.7 L CSF Lactic Acid
[2024-11-04 15:09] VITALS: BP 118/74; PULSE 80; RESP 18; TEMP 36.4; O2SAT 100
[2024-11-04 20:00] VITALS: PULSE 88; RESP 16; O2SAT 100
[2024-11-04 21:42] VITALS: BP 134/71; PULSE 88; RESP 16; TEMP 37.4; O2SAT 100
[2024-11-04 22:49] LABS: A Beta 42 109 pg/mL; ABETA 40 650 pg/mL; Beta Amyloid 42/40 Ratio Plasm 0.168 (> OR = 0.170)
[2024-11-05 04:18] VITALS: BP 116/73; PULSE 83; RESP 16; TEMP 37.1; O2SAT 100
[2024-11-05 08:15] LABS: Hematocrit 29.1 % (42.0-52.0); Hemoglobin 9.3 g/dL (14.0-18.0); Immature Granulocyte Percent A 0.6 % (0-0.5); Lymphocytes Absolute Auto 2.03 K/mm3 (0.9-3.2); Mean Corpuscular HGB Conc 32.0 g/dl (32-36); Mean Corpuscular Hemoglobin 28.8 pg (26-34); Mean Corpuscular Volume 90.1 fl (80-100); Nucleated Red Blood Cells Absolute Auto 0.000 K/mm3 (0.0-0.012); Nucleated Red Blood Cells Perc 0.0 % (0.0-0.2); Platelet Count Result 222 k/mm3 (150-375); Red Blood Count 3.23 M/mm3 (4.6-6.20); White Blood Count 9.0 K/mm3 (4.5-10.0)
[2024-11-05 08:25] LABS: Alanine Aminotransferase 22 U/L (6-50); Albumin Level 2.8 g/dL (3.5-5.1); Alkaline Phosphatase 134 U/L (38-126); Anion Gap 8 mmol/L (4-12); Aspartate Amino Transferase 40 U/L (17-59); Bilirubin,Total 0.5 mg/dL (0.2-1.3); Blood Urea Nitrogen 14 mg/dL (9-20); Calcium 8.4 mg/dL (8.4-10.2); Carbon Dioxide 21 mmol/L (22-30); Chloride 105 mmol/L (98-107); Estimated CRCL calculation 71 ml/min; Estimated Glomerular Filt Rate > 60; Glucose 115 mg/dL (65-110); Magnesium 1.3 mg/dL (1.6-2.3); Potassium 4.4 mmol/L (3.4-5.0); Sodium 134 mmol/L (137-145); Total Protein 6.9 g/dL (6.3-8.2)
[2024-11-05 09:09] VITALS: BMI 11.0
[2024-11-05] MEDS: FOLIC ACID 1 MG TABLET FEED TUBE (09:54)
[2024-11-05] MEDS: ASPIRIN 81 MG CHEWABLE TABLET FEED TUBE (09:54)
[2024-11-05] MEDS: THIAMINE HCL 100 MG TABLET FEED TUBE (09:54)
[2024-11-05] MEDS: ROSUVASTATIN 10 MG TABLET FEED TUBE (09:54)
[2024-11-05] MEDS: SACCHAROMYCES BOULARDII 250 MG CAPSULE PO (09:55)
[2024-11-05] MEDS: PANTOPRAZOLE SODIUM IV 40 MG VIAL IV PUSH ×2 (09:55→20:42)
[2024-11-05] MEDS: ENOXAPARIN 40 MG/0.4 ML SYRINGE SUB-Q (09:55)
--- NOTE | 2024-11-05 10:06 | P.PNGS_ITS ---
Progress Note: A&P Assessment and Plan (1) Alcohol abuse: Code(s): F10.10 - Alcohol abuse, uncomplicated Status: Acute (2) Acute kidney injury: Code(s): N17.9 - Acute kidney failure, unspecified Status: Acute Assessment and Plan: Likely related to hypotension, hypovolemia, shock, rhabdo. Labs have since normalized. Continue to monitor urine output, electrolytes and renal function. Continue with nephrology recs. (3) Rhabdomyolysis: Qualifiers: Encounter type: initial encounter Rhabdomyolysis type: traumatic Qualified Code(s): T79.6XXA - Traumatic ischemia of muscle, initial encounter Code(s): M62.82 - Rhabdomyolysis Status: Acute Assessment and Plan: Likely due to being on the ground for unknown period of time. Continue IV fluids per nephrology recs. (4) Metabolic encephalopathy: Code(s): G93.41 - Metabolic encephalopathy Status: Acute Assessment and Plan: Patient is a good candidate for PEG tube placement. Due to previous Bilroth I procedure, it was difficult for GI to safely place PEG via EGD. Consider surgical placement of PEG tube this week pending evaluation by speech therapy. Of note, patient is currently on Lovenox, which may need to be held prior to surgery once OR date and time confirmed. Subjective Subjective Date/Time Seen: 11/05/24 10:06 Interval history: Patient is doing well today. Sitting up in bed and responsive to questions. In soft wrist restraints. He states abdominal pain is decreased. WBC normal. Afebrile. Exam GI: Inspection: non-distended GI Palp: Yes Soft to palpation and No Tenderness to palpation present (GI) Auscultation: normal bowel sounds Other: Large midline healed scar - likely from Bilroth I procedure Objective Data Vital Signs Vital Signs: Vital Signs - 24 hr 11/04/24 15:09 11/04/24 20:00 11/04/24 21:42 Temperature 97.5 F L 99.3 F Pulse Rate 80 88 88 Respiratory Rate 18 16 16 Blood Pressure 118/74 134/71 Pulse Oximetry 100 100 100 Oxygen Delivery Room Air Fraction of Inspired Oxygen 21 11/05/24 04:18 Temperature 98.8 F Pulse Rate 83 Respiratory Rate 16 Blood Pressure 116/73 Pulse Oximetry 100 Oxygen Delivery Fraction of Inspired Oxygen Intake/Output Intake/Output: Intake & Output 11/02/24 11/03/24 11/04/24 11/05/24 23:59 23:59 23:59 23:59 Intake Total 2960 2351 1010 50 Output Total 800 6245 1500 Balance 8571 -35 -304 50 Meds/Results Medications: Active Medications Generic Name Dose Route Start Last Admin Trade Name Freq PRN Reason Stop Dose Admin Aspirin 81 mg 11/04/24 08:00 11/05/24 09:54 Aspirin 81 Mg Chewable Tablet FEED TUBE 81 mg DAILY@0800 JHONY Administration Dextrose 12.5 gm 10/17/24 21:26 10/30/24 05:55 Dextrose 50% 25 Gm/50 Ml Syringe IV PUSH 12.5 gm PRN PRN Administration Hypoglycemia Protocol Enoxaparin Sodium 40 mg 11/02/24 09:00 11/05/24 09:55 Enoxaparin 40 Mg/0.4 Ml Syringe SUB-Q 40 mg DAILY JHONY Administration Folic Acid 1 mg 10/24/24 09:00 11/05/24 09:54 Folic Acid 1 Mg Tablet FEED TUBE 1 mg QAM JHONY Administration Glucagon 1 mg 10/17/24 21:26 Glucagon For Inj 1 Mg Vial IM PRN PRN Hypoglycemia Protocol Glucose 15 gm 10/17/24 21:26 Glucose Oral Gel 15 Gm Of Glucse In 37.5 Gm Tube PO PRN PRN Hypoglycemia Protocol Dextrose 1,000 mls @ 100 mls/hr 10/17/24 21:26 Dextrose 5% 1,000 Ml IVPB PRN PRN Hypoglycemia Protocol Pantoprazole Sodium 40 mg 10/18/24 21:00 11/05/24 09:55 Pantoprazole Sodium Iv 40 Mg Vial IV PUSH 40 mg Q12HR JHONY Administration Rosuvastatin Calcium 10 mg 11/04/24 09:00 11/05/24 09:54 Rosuvastatin 10 Mg Tablet FEED TUBE 10 mg DAILY JHONY Administration Saccharomyces Boulardii 250 mg 11/05/24 09:00 11/05/24 09:55 Saccharomyces Boulardii 250 Mg Capsule PO 250 mg DAILY JHONY Administration Thiamine HCl 100 mg 10/24/24 09:00 11/05/24 09:54 Thiamine Hcl 100 Mg Tablet FEED TUBE 100 mg QAM JHONY Administration Radiology Results: ITS Impressions Chest/Abdomen/Pelvis CT 10/17/24 10:46 IMPRESSION: No hollow or solid organ injury. No acute fractures. Head CT 10/19/24 09:19 Impression: No acute intracranial hemorrhage or suspicious mass effect. Inflammatory sinus disease. Face CT 10/19/24 09:39 IMPRESSION: 1. Extensive sinus disease with near complete opacification of the right maxillary sinus and dependently layering fluid in the bilateral sphenoid sinuses. Correlate clinically for acute sinusitis. 2. Dental and periodontal disease with periapical lucency surrounding the posterior most remaining right maxillary molar. Renal Ultrasound 10/19/24 09:48 IMPRESSION: No hydronephrosis or renal calculi. No parenchymal findings to suggest the presence of medical renal disease. Simple cysts within the right kidney, for which no further follow-up is needed. Brain MRI 10/24/24 14:22 IMPRESSION: 1. Age-related changes the brain. No acute intracranial process. 2. Prominent sinus disease with fluid nearly filling the right maxillary sinus and layering dependently in the bilateral sphenoid sinuses. Correlate clinically for acute sinusitis. Chest X-Ray 10/29/24 14:04 Impression: Clear lungs. NG tube in place. Lumbar Puncture Fluoroscopy 10/31/24 17:34 IMPRESSION: 1. Successful fluoro-guided lumbar puncture with mildly elevated opening pressure of 23 cm water. Upper GI Series 11/02/24 12:44 IMPRESSION: 1. Partial distal gastrectomy with gastroduodenal anastomosis. Nasogastric tube tip extends beyond the anastomosis with proximal side-port in the remaining body of the stomach. Labs Labs: Laboratory Results - last 24 hr 10/29/24 11/04/24 11/04/24 12:16 12:29 18:37 WBC RBC Hgb Hct MCV MCH MCHC RDW Plt Count MPV Immature Gran % (Auto) Neut % (Auto) Lymph % (Auto) [place] % (Auto) Eos % (Auto) Baso % (Auto) Lymph # (Auto) [place] # (Auto) Eos # (Auto) Baso # (Auto) Abs Immat Gran (auto) Absolute Neuts (auto) Absolute Nucleated RBC Nucleated RBC % Sodium Potassium Chloride Carbon Dioxide Anion Gap BUN Creatinine Estim Creat Clear Calc Estimated GFR Glucose POC Capillary Glucose 100 105 Calcium Magnesium Total Bilirubin AST ALT Alkaline Phosphatase Total Protein Albumin Amyloid Beta 42 Peptide 109 Amyloid Beta 40 Peptide 650 Amyloid Beta 42/40 Ratio 0.168 L 11/05/24 11/05/24 00:34 08:10 WBC 9.0 RBC 3.23 L Hgb 9.3 L Hct 29.1 L MCV 90.1 MCH 28.8 MCHC 32.0 RDW 21.9 H Plt Count 222 MPV 11.2 H Immature Gran % (Auto) 0.6 H Neut % (Auto) 59.4 Lymph % (Auto) 22.7 [place] % (Auto) 12.8 H Eos % (Auto) 3.9 Baso % (Auto) 0.6 Lymph # (Auto) 2.03 [place] # (Auto) 1.2 H Eos # (Auto) 0.4 H Baso # (Auto) 0.1 Abs Immat Gran (auto) 0.05 H Absolute Neuts (auto) 5.3 Absolute Nucleated RBC 0.000 Nucleated RBC % 0.0 Sodium 134 L Potassium 4.4 Chloride 105 Carbon Dioxide 21 L Anion Gap 8 BUN 14 Creatinine 0.81 Estim Creat Clear Calc 71 Estimated GFR > 60 Glucose 115 H POC Capillary Glucose 112 H Calcium 8.4 Magnesium 1.3 L Total Bilirubin 0.5 AST 40 ALT 22 Alkaline Phosphatase 134 H Total Protein 6.9 Albumin 2.8 L Amyloid Beta 42 Peptide Amyloid Beta 40 Peptide Amyloid Beta 42/40 Ratio
--- NOTE | 2024-11-05 11:28 | PCSTNOTE ---
Attempted to schedule the MBS, however, due to high volume of xray caseload, it is not able to be completed until tomorrow. Pt has a NGT at this time.
--- NOTE | 2024-11-05 14:21 | P.PNIM_ITS ---
Progress Note: A&P Assessment and Plan (1) Shock: Code(s): R57.9 - Shock, unspecified Status: Acute Assessment and Plan: RESOLVED 10/17: EMS arrived at patient's house: he was found face down with, hypotensive with systolic in the 50s, patient given IV fluids in the ER, central line inserted, started on Levophed. CT head was negative. Chest x-ray with no focal infiltrate or effusion. CT chest abdomen pelvis with no acute findings. Face CT with extensive sinus disease with near complete opacification of the right maxillary sinus and dependently layering fluid in the bilateral sphenoid sinuses. Dental and periodontal disease with periapical lucency surrounding the posterior-most remaining right maxillary molar. -off Levophed since the morning of 10/18 -procalcitonin levels are at high -patient was started on cefepime and vancomycin which was discontinued since there was no nidus of infection -MRSA screen is negative, -10/17: Blood cultures negative-so far -no nidus of infection on either chest x-ray, CT chest abdomen and pelvis, UA was clear, -10/19: given low body temperature, elevated procalcitonin started on ceftriaxone empirically. Procalcitonin can also be raised in tissue injury -10/19: UA reflective of UTI, also given sinusitis on CT scan of the face, started patient on ceftriaxone since 10/19/2024. Urine culture not obtained. Now concluded Liquid stool. Could be tube feed related. C diff came back positive Started on vancomycin 10/22/2024 and concluded 11/01/2024 (2) Altered mental status: Qualifiers: Altered mental status type: disorientation Qualified Code(s): R41.0 - Disorientation, unspecified Code(s): R41.82 - Altered mental status, unspecified Status: Acute Assessment and Plan: Altered mental status is multifactorial could be related to hypovolemia, shock, hypotension, acute kidney injury, rhabdomyolysis -CT brain was negative for intracranial abnormalities -MRI cannot be performed as patient was in the [place] and may have sharpnel exposure according to his daughter -10/19: Repeat CT brain did not show any acute intracranial hemorrhage or suspicious mass effect, inflammatory sinus disease. -10/19: CT facial bones showed extensive sinus disease with near complete opacification of the right maxillary sinus and dependently layering fluid in the bilateral sphenoid sinuses. Dental and periodontal disease with periapical lucency surrounding the posterior most remaining right maxillary molar Despite improvement in metabolic issues he remains encephalopathic Neurology consultation Brain MRI: Age-related changes in the brain with no acute intracranial process. Prominent sinus disease with fluid nearly filling the right maxillary sinus and layering dependently in the bilateral sphenoid sinuses. EEG performed: No seizure activity noted. Lumbar puncture 10/31/2024 with mildly elevated opening pressure of 23 cm water CSF with high-protein (3) Fall (on) (from) other stairs and steps, initial encounter: Code(s): W10.8XXA - Fall (on) (from) other stairs and steps, initial encounter Status: Acute Assessment and Plan: Patient was found on the ground face down unknown amount of time, unknown etiology -continue treat underlying cause -10/18: Echocardiogram showed EF of 60-65%, normal biventricular size and systolic function, no significant valvular abnormalities (4) Acute kidney injury: Code(s): N17.9 - Acute kidney failure, unspecified Status: Acute Assessment and Plan: Acute kidney injury likely related to hypotension, hypovolemia, shock, rhabdomyolysis -patient received 3 L IV fluid bolus in the ER -started on bicarb infusion -patient was hypernatremic on admission, -sodium levels trending down gradually currently on bicarb infusion per Nephrology -continue to monitor urine output, electrolytes and renal function -patient presented with creatinine of 3.0 (baseline 1.0 in October 2023 at [facility]) -urine lytes not reflective of prerenal picture, urine eosinophils are negative -CT scan of the abdomen and pelvis did not show any hydronephrosis -renal ultrasound: No hydronephrosis or renal calculi, no apparent, findings to suggest the presence of medical renal disease. Simple cyst within the right kidney -CK levels trending down on admission 5864 peaked to 8292. -appreciate Nephrology evaluation and recommendation Conjunctival chemosis noted. IV fluids stopped Already getting tube feeds at 55 cc an hour (5) Rhabdomyolysis: Qualifiers: Encounter type: initial encounter Rhabdomyolysis type: traumatic Qualified Code(s): T79.6XXA - Traumatic ischemia of muscle, initial encounter Code(s): M62.82 - Rhabdomyolysis Status: Acute Assessment and Plan: Rhabdomyolysis likely related to being down on the ground for unknown amount of time -patient has been given 3 L IV fluids in the ER plus 500 mL of LR bolus in the ICU on 10/18. Patient seems to be adequately fluid-resuscitated -continue IV fluids per Nephrology CK levels trending down on admission 5864 peaked to 8292. (6) Electrolyte imbalance: Code(s): E87.8 - Other disorders of electrolyte and fluid balance, not elsewhere classified Status: Acute Assessment and Plan: Magnesium repleted (7) Anemia: Code(s): D64.9 - Anemia, unspecified Status: Acute Assessment and Plan: Patient dropped his hemoglobin this morning to 6.2 from 9.1 on admission -10/18: status post 2 units of packed RBCs -stool occult is negative -vitamin B12 levels are normal, folic acid is low will substitute -iron panel looks normal -hemoglobin remained stable EGD previous gastric surgery and evidence of gastritis GI and able to place G-tube. General surgery consulted and planned for G-tube placement next week will have speech therapy see him again to see if he will be able to start oral diet. MBS will be performed tomorrow. If this is failed again plan for G-tube placement per General surgery. (8) Thrombocytopenia: Code(s): D69.6 - Thrombocytopenia, unspecified Status: Acute Assessment and Plan: Thrombocytopenia with platelet counts of 62 this morning, 91 on admission -10/18: status post 1 unit of platelets -INR 1.2 on admission -platelets remain low, continue to monitor Does have history of chronic alcohol abuse per family. No baseline available Concern for TTP. Hematology consult HIT antibody negative ITP antibody negative Thrombocytopenia has resolved Plan Hyponatremia noted 11/03/2024. Half-normal saline stopped. Repeat was 135 without much intervention. Likely a lab error. Patient continues to require hospitalization due to ongoing medical needs as stated above Subjective Date/time seen: 11/05/24 14:21 Interval history: No overnight events. Working with therapy. Still very weak. Discussed with General surgery. Review of Systems Review of Systems: All systems reviewed & are unremarkable except as noted in HPI and below ( Limited, A&O x1, unreliable) Exam Narrative: Patient is comfortable, NAD HEENT: eyes are clear and none icteric, NG tube in place LUNGS: Diminished breath sounds bilaterally HEART: RR S1S2 ABD: BS+, Soft and nontender Lower extremities: no edema SKIN: nonjaundiced Neuro: More alert and awake dysarthric follow some commands Objective Data Vital Signs Vital Signs: Vital Signs - 24 hr 11/04/24 15:09 11/04/24 20:00 11/04/24 21:42 Temperature 97.5 F L 99.3 F Pulse Rate 80 88 88 Respiratory Rate 18 16 16 Blood Pressure 118/74 134/71 Pulse Oximetry 100 100 100 Oxygen Delivery Room Air Fraction of Inspired Oxygen 21 11/05/24 04:18 11/05/24 08:10 Temperature 98.8 F Pulse Rate 83 Respiratory Rate 16 Blood Pressure 116/73 Pulse Oximetry 100 Oxygen Delivery Room Air Fraction of Inspired Oxygen Intake/Output Intake/Output: Intake & Output 11/02/24 11/03/24 11/04/24 11/05/24 23:59 23:59 23:59 23:59 Intake Total 2960 2357 1010 50 Output Total 800 2375 1500 Balance 0130 -67 -284 50 Meds/Results Medications: Active Medications Generic Name Dose Route Start Last Admin Trade Name Freq PRN Reason Stop Dose Admin Aspirin 81 mg 11/04/24 08:00 11/05/24 09:54 Aspirin 81 Mg Chewable Tablet FEED TUBE 81 mg DAILY@0800 JHONY Administration Dextrose 12.5 gm 10/17/24 21:26 10/30/24 05:55 Dextrose 50% 25 Gm/50 Ml Syringe IV PUSH 12.5 gm PRN PRN Administration Hypoglycemia Protocol Enoxaparin Sodium 40 mg 11/02/24 09:00 11/05/24 09:55 Enoxaparin 40 Mg/0.4 Ml Syringe SUB-Q 40 mg DAILY JHONY Administration Folic Acid 1 mg 10/24/24 09:00 11/05/24 09:54 Folic Acid 1 Mg Tablet FEED TUBE 1 mg QAM JHONY Administration Glucagon 1 mg 10/17/24 21:26 Glucagon For Inj 1 Mg Vial IM PRN PRN Hypoglycemia Protocol Glucose 15 gm 10/17/24 21:26 Glucose Oral Gel 15 Gm Of Glucse In 37.5 Gm Tube PO PRN PRN Hypoglycemia Protocol Dextrose 1,000 mls @ 100 mls/hr 10/17/24 21:26 Dextrose 5% 1,000 Ml IVPB PRN PRN Hypoglycemia Protocol Pantoprazole Sodium 40 mg 10/18/24 21:00 11/05/24 09:55 Pantoprazole Sodium Iv 40 Mg Vial IV PUSH 40 mg Q12HR JHONY Administration Rosuvastatin Calcium 10 mg 11/04/24 09:00 11/05/24 09:54 Rosuvastatin 10 Mg Tablet FEED TUBE 10 mg DAILY JHONY Administration Saccharomyces Bocarlenedii 250 mg 11/05/24 09:00 11/05/24 09:55 Saccharomyces Bocarlenedii 250 Mg Capsule PO 250 mg DAILY JHONY Administration Thiamine HCl 100 mg 10/24/24 09:00 11/05/24 09:54 Thiamine Hcl 100 Mg Tablet FEED TUBE 100 mg QAM JHONY Administration Radiology Results: ITS Impressions Chest/Abdomen/Pelvis CT 10/17/24 10:46 IMPRESSION: No hollow or solid organ injury. No acute fractures. Head CT 10/19/24 09:19 Impression: No acute intracranial hemorrhage or suspicious mass effect. Inflammatory sinus disease. Face CT 10/19/24 09:39 IMPRESSION: 1. Extensive sinus disease with near complete opacification of the right maxillary sinus and dependently layering fluid in the bilateral sphenoid sinuses. Correlate clinically for acute sinusitis. 2. Dental and periodontal disease with periapical lucency surrounding the posterior most remaining right maxillary molar. Renal Ultrasound 10/19/24 09:48 IMPRESSION: No hydronephrosis or renal calculi. No parenchymal findings to suggest the presence of medical renal disease. Simple cysts within the right kidney, for which no further follow-up is needed. Brain MRI 10/24/24 14:22 IMPRESSION: 1. Age-related changes the brain. No acute intracranial process. 2. Prominent sinus disease with fluid nearly filling the right maxillary sinus and layering dependently in the bilateral sphenoid sinuses. Correlate clinically for acute sinusitis. Chest X-Ray 10/29/24 14:04 Impression: Clear lungs. NG tube in place. Lumbar Puncture Fluoroscopy 10/31/24 17:34 IMPRESSION: 1. Successful fluoro-guided lumbar puncture with mildly elevated opening pressure of 23 cm water. Upper GI Series 11/02/24 12:44 IMPRESSION: 1. Partial distal gastrectomy with gastroduodenal anastomosis. Nasogastric tube tip extends beyond the anastomosis with proximal side-port in the remaining body of the stomach. Labs Labs: Laboratory Results - last 24 hr 10/29/24 11/04/24 11/05/24 12:16 18:37 00:34 WBC RBC Hgb Hct MCV MCH MCHC RDW Plt Count MPV Immature Gran % (Auto) Neut % (Auto) Lymph % (Auto) [place] % (Auto) Eos % (Auto) Baso % (Auto) Lymph # (Auto) [place] # (Auto) Eos # (Auto) Baso # (Auto) Abs Immat Gran (auto) Absolute Neuts (auto) Absolute Nucleated RBC Nucleated RBC % Sodium Potassium Chloride Carbon Dioxide Anion Gap BUN Creatinine Estim Creat Clear Calc Estimated GFR Glucose POC Capillary Glucose 105 112 H Calcium Magnesium Total Bilirubin AST ALT Alkaline Phosphatase Total Protein Albumin Amyloid Beta 42 Peptide 109 Amyloid Beta 40 Peptide 650 Amyloid Beta 42/40 Ratio 0.168 L 11/05/24 11/05/24 08:10 11:57 WBC 9.0 RBC 3.23 L Hgb 9.3 L Hct 29.1 L MCV 90.1 MCH 28.8 MCHC 32.0 RDW 21.9 H Plt Count 222 MPV 11.2 H Immature Gran % (Auto) 0.6 H Neut % (Auto) 59.4 Lymph % (Auto) 22.7 [place] % (Auto) 12.8 H Eos % (Auto) 3.9 Baso % (Auto) 0.6 Lymph # (Auto) 2.03 [place] # (Auto) 1.2 H Eos # (Auto) 0.4 H Baso # (Auto) 0.1 Abs Immat Gran (auto) 0.05 H Absolute Neuts (auto) 5.3 Absolute Nucleated RBC 0.000 Nucleated RBC % 0.0 Sodium 134 L Potassium 4.4 Chloride 105 Carbon Dioxide 21 L Anion Gap 8 BUN 14 Creatinine 0.81 Estim Creat Clear Calc 71 Estimated GFR > 60 Glucose 115 H POC Capillary Glucose 106 H Calcium 8.4 Magnesium 1.3 L Total Bilirubin 0.5 AST 40 ALT 22 Alkaline Phosphatase 134 H Total Protein 6.9 Albumin 2.8 L Amyloid Beta 42 Peptide Amyloid Beta 40 Peptide Amyloid Beta 42/40 Ratio
[2024-11-05 14:23] VITALS: BP 135/95; PULSE 85; RESP 17; TEMP 36.4; O2SAT 100
[2024-11-05 21:16] VITALS: BP 137/79; PULSE 87; RESP 20; TEMP 36.4; O2SAT 100
[2024-11-06 06:00] VITALS: BP 121/76; PULSE 84; RESP 20; TEMP 36.6; O2SAT 100
--- NOTE | 2024-11-06 10:22 | PCSTNOTE ---
Please refer to the Modified Barium Swallow (MBS) Evaluation in the EMR. A Modified Barium Swallow was completed due to overt s/s of aspiration exhibited during 2 previous bedside swallow evaluations. Overall throughout hospitalization pt has been intermittently alert for participation in therapies. Upon arriving for MBS pt was slumped over. He was repositioned to attempt to achieve an upright position but pt continued to slump forward. During trials pt was assisted to an upright position. Upon oral presentations of 5 ml thin liquid and 1 tsp of pudding, min to no labial seal was achieved and all contents were spilled from his mouth. Pt did not attempt to formulate contents into a bolus or propel posteriorly. Pharyngeal swallow could not be assessed. Impressions & recommendations: severe oral stage dysphagia versus refusing and allowing contents to spill from mouth. NPO; consider a more permanent means of nutrition. ST will continue with dysphagia therapy but will reduce weekly frequency to 2-3x/week. SNF recommended.
[2024-11-06] MEDS: ENOXAPARIN 40 MG/0.4 ML SYRINGE SUB-Q (10:25)
[2024-11-06] MEDS: ASPIRIN 81 MG CHEWABLE TABLET FEED TUBE (10:25)
[2024-11-06] MEDS: PANTOPRAZOLE SODIUM IV 40 MG VIAL IV PUSH ×2 (10:25→20:12)
[2024-11-06] MEDS: THIAMINE HCL 100 MG TABLET FEED TUBE (10:25)
[2024-11-06] MEDS: FOLIC ACID 1 MG TABLET FEED TUBE (10:25)
[2024-11-06] MEDS: SACCHAROMYCES BOULARDII 250 MG CAPSULE PO (10:25)
[2024-11-06] MEDS: ROSUVASTATIN 10 MG TABLET FEED TUBE (10:25)
--- NOTE | 2024-11-06 10:26 | PC.NURSE ---
pt had been off floor for MBS, meds administered per NGT per orders, resting comfortably, daughter at bedside
--- NOTE | 2024-11-06 10:38 | PCNFU ---
Nutrition Follow-Up Complete: Inadequate Oral Intake as related to AMS as evidenced by NPO. Goal: Meet estimated nutritional needs Patient has limited progressing towards goal.We will continue current goal. Pt current nutrition is NPO. Nutrition recommendation: Jevity 1.5 at 55 ml/hr Last recorded weight is 69 kg, up from 66 kg on admit. Bowel Motility: +BM reported 11/06 Labs Reviewed: Glu 115, Mg 1.3, Na 134, Alb 2.8 Meds Noted: Lovenox, Folic Acid, Rocephin, NS, Protonix Skin: WNL Additional Notes:Patient currently NPO. MBS today-failed. Plans for PEG per surgery. Recommending same tube feeding type Jevity 1.5 at 55 ml/hr. Water flush 100 ml q 4 hours. Agree with diet orders. will monitor weight, labs, skin, diet orders, meds every Tuesday and Tuesday.
--- NOTE | 2024-11-06 13:37 | PM.IMPN ---
Progress Note: A&P Assessment and Plan (1) Shock: Code(s): R57.9 - Shock, unspecified Status: Acute Assessment and Plan: RESOLVED 10/17: EMS arrived at patient's house: he was found face down with, hypotensive with systolic in the 50s, patient given IV fluids in the ER, central line inserted, started on Levophed. CT head was negative. Chest x-ray with no focal infiltrate or effusion. CT chest abdomen pelvis with no acute findings. Face CT with extensive sinus disease with near complete opacification of the right maxillary sinus and dependently layering fluid in the bilateral sphenoid sinuses. Dental and periodontal disease with periapical lucency surrounding the posterior-most remaining right maxillary molar. -off Levophed since the morning of 10/18 -procalcitonin levels are at high -patient was started on cefepime and vancomycin which was discontinued since there was no nidus of infection -MRSA screen is negative, -10/17: Blood cultures negative-so far -no nidus of infection on either chest x-ray, CT chest abdomen and pelvis, UA was clear, -10/19: given low body temperature, elevated procalcitonin started on ceftriaxone empirically. Procalcitonin can also be raised in tissue injury -10/19: UA reflective of UTI, also given sinusitis on CT scan of the face, started patient on ceftriaxone since 10/19/2024. Urine culture not obtained. Now concluded Liquid stool. Could be tube feed related. C diff came back positive Started on vancomycin 10/22/2024 and concluded 11/01/2024 Still has liquid stool could be from tube feeds (2) Altered mental status: Qualifiers: Altered mental status type: disorientation Qualified Code(s): R41.0 - Disorientation, unspecified Code(s): R41.82 - Altered mental status, unspecified Status: Acute Assessment and Plan: Altered mental status is multifactorial could be related to hypovolemia, shock, hypotension, acute kidney injury, rhabdomyolysis -CT brain was negative for intracranial abnormalities -MRI cannot be performed as patient was in the [place] and may have sharpnel exposure according to his daughter -10/19: Repeat CT brain did not show any acute intracranial hemorrhage or suspicious mass effect, inflammatory sinus disease. -10/19: CT facial bones showed extensive sinus disease with near complete opacification of the right maxillary sinus and dependently layering fluid in the bilateral sphenoid sinuses. Dental and periodontal disease with periapical lucency surrounding the posterior most remaining right maxillary molar Despite improvement in metabolic issues he remains encephalopathic Neurology consultation Brain MRI: Age-related changes in the brain with no acute intracranial process. Prominent sinus disease with fluid nearly filling the right maxillary sinus and layering dependently in the bilateral sphenoid sinuses. EEG performed: No seizure activity noted. Lumbar puncture 10/31/2024 with mildly elevated opening pressure of 23 cm water CSF with high-protein (3) Fall (on) (from) other stairs and steps, initial encounter: Code(s): W10.8XXA - Fall (on) (from) other stairs and steps, initial encounter Status: Acute Assessment and Plan: Patient was found on the ground face down unknown amount of time, unknown etiology -continue treat underlying cause -10/18: Echocardiogram showed EF of 60-65%, normal biventricular size and systolic function, no significant valvular abnormalities (4) Acute kidney injury: Code(s): N17.9 - Acute kidney failure, unspecified Status: Acute Assessment and Plan: Acute kidney injury likely related to hypotension, hypovolemia, shock, rhabdomyolysis -patient received 3 L IV fluid bolus in the ER -started on bicarb infusion -patient was hypernatremic on admission, -sodium levels trending down gradually currently on bicarb infusion per Nephrology -continue to monitor urine output, electrolytes and renal function -patient presented with creatinine of 3.0 (baseline 1.0 in October 2023 at [facility]) -urine lytes not reflective of prerenal picture, urine eosinophils are negative -CT scan of the abdomen and pelvis did not show any hydronephrosis -renal ultrasound: No hydronephrosis or renal calculi, no apparent, findings to suggest the presence of medical renal disease. Simple cyst within the right kidney -CK levels trending down on admission 5864 peaked to 8292. -appreciate Nephrology evaluation and recommendation Conjunctival chemosis noted. IV fluids stopped Already getting tube feeds at 55 cc an hour (5) Rhabdomyolysis: Qualifiers: Encounter type: initial encounter Rhabdomyolysis type: traumatic Qualified Code(s): T79.6XXA - Traumatic ischemia of muscle, initial encounter Code(s): M62.82 - Rhabdomyolysis Status: Acute Assessment and Plan: Rhabdomyolysis likely related to being down on the ground for unknown amount of time -patient has been given 3 L IV fluids in the ER plus 500 mL of LR bolus in the ICU on 10/18. Patient seems to be adequately fluid-resuscitated -continue IV fluids per Nephrology CK levels trending down on admission 5864 peaked to 8292. (6) Electrolyte imbalance: Code(s): E87.8 - Other disorders of electrolyte and fluid balance, not elsewhere classified Status: Acute Assessment and Plan: Magnesium repleted (7) Anemia: Code(s): D64.9 - Anemia, unspecified Status: Acute Assessment and Plan: Patient dropped his hemoglobin this morning to 6.2 from 9.1 on admission -10/18: status post 2 units of packed RBCs -stool occult is negative -vitamin B12 levels are normal, folic acid is low will substitute -iron panel looks normal -hemoglobin remained stable EGD previous gastric surgery and evidence of gastritis GI and able to place G-tube. General surgery consulted and planned for G-tube placement next week Speech therapy reconsulted underwent MBS. Failed MBS. Unlikely to recover in a short period of time Discussed with General surgery. Who will plan for G-tube placement (8) Thrombocytopenia: Code(s): D69.6 - Thrombocytopenia, unspecified Status: Acute Assessment and Plan: Thrombocytopenia with platelet counts of 62 this morning, 91 on admission -10/18: status post 1 unit of platelets -INR 1.2 on admission -platelets remain low, continue to monitor Does have history of chronic alcohol abuse per family. No baseline available Concern for TTP. Hematology consult HIT antibody negative ITP antibody negative Thrombocytopenia has resolved Plan Hyponatremia noted 11/03/2024. Half-normal saline stopped. Repeat was 135 without much intervention. Likely a lab error. Patient continues to require hospitalization due to ongoing medical needs as stated above Subjective Date/time seen: 11/06/24 13:37 Interval history: No overnight events. Underwent MBS which he failed. Lethargic today does not communicate much. No other events reported by nursing staff. Review of Systems Review of Systems: ROS unobtainable: Yes unobtainable due to mental status Exam Narrative: Patient is comfortable, NAD HEENT: eyes are clear and none icteric, NG tube in place LUNGS: Diminished breath sounds bilaterally HEART: RR S1S2 ABD: BS+, Soft and nontender Lower extremities: no edema SKIN: nonjaundiced Neuro: Somnolent today, does not follow commands Objective Data Vital Signs Vital Signs: Vital Signs - 24 hr 11/05/24 14:23 11/05/24 20:00 11/05/24 21:16 Temperature 97.6 F 97.6 F Pulse Rate 85 87 Respiratory Rate 17 20 Blood Pressure 135/95 H 137/79 Pulse Oximetry 100 100 Oxygen Delivery Room Air 11/06/24 06:00 Temperature 97.9 F Pulse Rate 84 Respiratory Rate 20 Blood Pressure 121/76 Pulse Oximetry 100 Oxygen Delivery Intake/Output Intake/Output: Intake & Output 11/03/24 11/04/24 11/05/24 11/06/24 23:59 23:59 23:59 23:59 Intake Total 2357 1010 50 Output Total 2375 1500 1800 1700 Balance -18 -677 -1750 -1700 Meds/Results Medications: Active Medications Generic Name Dose Route Start Last Admin Trade Name Freq PRN Reason Stop Dose Admin Aspirin 81 mg 11/04/24 08:00 11/06/24 10:25 Aspirin 81 Mg Chewable Tablet FEED TUBE 81 mg DAILY@0800 JHONY Administration Dextrose 12.5 gm 10/17/24 21:26 10/30/24 05:55 Dextrose 50% 25 Gm/50 Ml Syringe IV PUSH 12.5 gm PRN PRN Administration Hypoglycemia Protocol Enoxaparin Sodium 40 mg 11/02/24 09:00 11/06/24 10:25 Enoxaparin 40 Mg/0.4 Ml Syringe SUB-Q 40 mg DAILY JHONY Administration Folic Acid 1 mg 10/24/24 09:00 11/06/24 10:25 Folic Acid 1 Mg Tablet FEED TUBE 1 mg QAM JHONY Administration Glucagon 1 mg 10/17/24 21:26 Glucagon For Inj 1 Mg Vial IM PRN PRN Hypoglycemia Protocol Glucose 15 gm 10/17/24 21:26 Glucose Oral Gel 15 Gm Of Glucse In 37.5 Gm Tube PO PRN PRN Hypoglycemia Protocol Dextrose 1,000 mls @ 100 mls/hr 10/17/24 21:26 Dextrose 5% 1,000 Ml IVPB PRN PRN Hypoglycemia Protocol Pantoprazole Sodium 40 mg 10/18/24 21:00 11/06/24 10:25 Pantoprazole Sodium Iv 40 Mg Vial IV PUSH 40 mg Q12HR JHONY Administration Rosuvastatin Calcium 10 mg 11/04/24 09:00 11/06/24 10:25 Rosuvastatin 10 Mg Tablet FEED TUBE 10 mg DAILY JHONY Administration Saccharomyces Boulardii 250 mg 11/05/24 09:00 11/06/24 10:25 Saccharomyces Boulardii 250 Mg Capsule PO 250 mg DAILY JHONY Administration Thiamine HCl 100 mg 10/24/24 09:00 11/06/24 10:25 Thiamine Hcl 100 Mg Tablet FEED TUBE 100 mg QAM JHONY Administration Radiology Results: ITS Impressions Chest/Abdomen/Pelvis CT 10/17/24 10:46 IMPRESSION: No hollow or solid organ injury. No acute fractures. Head CT 10/19/24 09:19 Impression: No acute intracranial hemorrhage or suspicious mass effect. Inflammatory sinus disease. Face CT 10/19/24 09:39 IMPRESSION: 1. Extensive sinus disease with near complete opacification of the right maxillary sinus and dependently layering fluid in the bilateral sphenoid sinuses. Correlate clinically for acute sinusitis. 2. Dental and periodontal disease with periapical lucency surrounding the posterior most remaining right maxillary molar. Renal Ultrasound 10/19/24 09:48 IMPRESSION: No hydronephrosis or renal calculi. No parenchymal findings to suggest the presence of medical renal disease. Simple cysts within the right kidney, for which no further follow-up is needed. Brain MRI 10/24/24 14:22 IMPRESSION: 1. Age-related changes the brain. No acute intracranial process. 2. Prominent sinus disease with fluid nearly filling the right maxillary sinus and layering dependently in the bilateral sphenoid sinuses. Correlate clinically for acute sinusitis. Chest X-Ray 10/29/24 14:04 Impression: Clear lungs. NG tube in place. Lumbar Puncture Fluoroscopy 10/31/24 17:34 IMPRESSION: 1. Successful fluoro-guided lumbar puncture with mildly elevated opening pressure of 23 cm water. Upper GI Series 11/02/24 12:44 IMPRESSION: 1. Partial distal gastrectomy with gastroduodenal anastomosis. Nasogastric tube tip extends beyond the anastomosis with proximal side-port in the remaining body of the stomach. Modified Barium Swallow 11/06/24 10:05 IMPRESSION: Nondiagnostic study as all contents either leaked or were actively expelled from the mouth. No swallows were able to be evaluated. Please correlate with speech pathologist findings and specific feeding recommendations. Labs Labs: Laboratory Results - last 24 hr 11/05/24 11/06/24 11/06/24 18:09 00:28 06:27 POC Capillary Glucose 100 111 H 114 H 11/06/24 11:28 POC Capillary Glucose 109 H
[2024-11-06 14:00] VITALS: BP 118/72; PULSE 87; RESP 18; TEMP 36.6; O2SAT 100
--- NOTE | 2024-11-06 14:50 | P.PNGS_ITS ---
Progress Note: A&P Assessment and Plan (1) Alcohol abuse: Code(s): F10.10 - Alcohol abuse, uncomplicated Status: Acute (2) Acute kidney injury: Code(s): N17.9 - Acute kidney failure, unspecified Status: Acute Assessment and Plan: Likely related to hypotension, hypovolemia, shock, rhabdo. Labs have since normalized. Continue to monitor urine output, electrolytes and renal function. Continue with nephrology recs. (3) Rhabdomyolysis: Qualifiers: Encounter type: initial encounter Rhabdomyolysis type: traumatic Qualified Code(s): T79.6XXA - Traumatic ischemia of muscle, initial encounter Code(s): M62.82 - Rhabdomyolysis Status: Acute Assessment and Plan: Likely due to being on the ground for unknown period of time. Continue IV fluids per nephrology recs. (4) Metabolic encephalopathy: Code(s): G93.41 - Metabolic encephalopathy Status: Acute Assessment and Plan: Patient failed barium swallow study today. Speech therapy recommends a more permanent means of nutrition. Patient is a good candidate for PEG tube placement. Due to previous Bilroth I procedure, it was difficult for GI to safely place PEG via EGD. Consider surgical placement of PEG tube in the next following days. Of note, patient is currently on Lovenox, which may need to be held prior to surgery once OR date and time confirmed. Subjective Subjective Date/Time Seen: 11/06/24 14:50 Interval history: Patient failed barium swallow study today as all contents were spilled from his mouth and pharyngeal swallow could not be assessed. ST recommending a more pe rmanent means of nutrition and SNF placement upon discharge. Patient does not mention any abdominal pain today and has no complaints. VSS. Normal WBC. Exam GI: Inspection: non-distended Auscultation: normal bowel sounds Other: Large midline healed scar - likely from Bilroth I procedure : General: Yes bladder normal to palpation Objective Data Vital Signs Vital Signs: Vital Signs - 24 hr 11/05/24 20:00 11/05/24 21:16 11/06/24 06:00 Temperature 97.6 F 97.9 F Pulse Rate 87 84 Respiratory Rate 20 20 Blood Pressure 137/79 121/76 Pulse Oximetry 100 100 Oxygen Delivery Room Air 11/06/24 14:00 Temperature 97.8 F Pulse Rate 87 Respiratory Rate 18 Blood Pressure 118/72 Pulse Oximetry 100 Oxygen Delivery Intake/Output Intake/Output: Intake & Output 11/03/24 11/04/24 11/05/24 11/06/24 23:59 23:59 23:59 23:59 Intake Total 2357 1010 50 Output Total 2375 1500 1800 1700 [facility] -18 [phone] [phone] -1700 Meds/Results Medications: Active Medications Generic Name Dose Route Start Last Admin Trade Name Freq PRN Reason Stop Dose Admin Aspirin 81 mg 11/04/24 08:00 11/06/24 10:25 Aspirin 81 Mg Chewable Tablet FEED TUBE 81 mg DAILY@0800 JHONY Administration Dextrose 12.5 gm 10/17/24 21:26 10/30/24 05:55 Dextrose 50% 25 Gm/50 Ml Syringe IV PUSH 12.5 gm PRN PRN Administration Hypoglycemia Protocol Enoxaparin Sodium 40 mg 11/02/24 09:00 11/06/24 10:25 Enoxaparin 40 Mg/0.4 Ml Syringe SUB-Q 40 mg DAILY JHONY Administration Folic Acid 1 mg 10/24/24 09:00 11/06/24 10:25 Folic Acid 1 Mg Tablet FEED TUBE 1 mg QAM JHONY Administration Glucagon 1 mg 10/17/24 21:26 Glucagon For Inj 1 Mg Vial IM PRN PRN Hypoglycemia Protocol Glucose 15 gm 10/17/24 21:26 Glucose Oral Gel 15 Gm Of Glucse In 37.5 Gm Tube PO PRN PRN Hypoglycemia Protocol Dextrose 1,000 mls @ 100 mls/hr 10/17/24 21:26 Dextrose 5% 1,000 Ml IVPB PRN PRN Hypoglycemia Protocol Pantoprazole Sodium 40 mg 10/18/24 21:00 11/06/24 10:25 Pantoprazole Sodium Iv 40 Mg Vial IV PUSH 40 mg Q12HR JHONY Administration Rosuvastatin Calcium 10 mg 11/04/24 09:00 11/06/24 10:25 Rosuvastatin 10 Mg Tablet FEED TUBE 10 mg DAILY JHONY Administration Saccharomyces Boulardii 250 mg 11/05/24 09:00 11/06/24 10:25 Saccharomyces Boulardii 250 Mg Capsule PO 250 mg DAILY JHONY Administration Thiamine HCl 100 mg 10/24/24 09:00 11/06/24 10:25 Thiamine Hcl 100 Mg Tablet FEED TUBE 100 mg QAM JHONY Administration Radiology Results: ITS Impressions Chest/Abdomen/Pelvis CT 10/17/24 10:46 IMPRESSION: No hollow or solid organ injury. No acute fractures. Head CT 10/19/24 09:19 Impression: No acute intracranial hemorrhage or suspicious mass effect. Inflammatory sinus disease. Face CT 10/19/24 09:39 IMPRESSION: 1. Extensive sinus disease with near complete opacification of the right maxillary sinus and dependently layering fluid in the bilateral sphenoid sinuses. Correlate clinically for acute sinusitis. 2. Dental and periodontal disease with periapical lucency surrounding the posterior most remaining right maxillary molar. Renal Ultrasound 10/19/24 09:48 IMPRESSION: No hydronephrosis or renal calculi. No parenchymal findings to suggest the presence of medical renal disease. Simple cysts within the right kidney, for which no further follow-up is needed. Brain MRI 10/24/24 14:22 IMPRESSION: 1. Age-related changes the brain. No acute intracranial process. 2. Prominent sinus disease with fluid nearly filling the right maxillary sinus and layering dependently in the bilateral sphenoid sinuses. Correlate clinically for acute sinusitis. Chest X-Ray 10/29/24 14:04 Impression: Clear lungs. NG tube in place. Lumbar Puncture Fluoroscopy 10/31/24 17:34 IMPRESSION: 1. Successful fluoro-guided lumbar puncture with mildly elevated opening pressure of 23 cm water. Upper GI Series 11/02/24 12:44 IMPRESSION: 1. Partial distal gastrectomy with gastroduodenal anastomosis. Nasogastric tube tip extends beyond the anastomosis with proximal side-port in the remaining body of the stomach. Modified Barium Swallow 11/06/24 10:05 IMPRESSION: Nondiagnostic study as all contents either leaked or were actively expelled from the mouth. No swallows were able to be evaluated. Please correlate with speech pathologist findings and specific feeding recommendations. Labs Labs: Laboratory Results - last 24 hr 11/05/24 11/06/24 11/06/24 18:09 00:28 06:27 POC Capillary Glucose 100 111 H 114 H 11/06/24 11:28 POC Capillary Glucose 109 H
[2024-11-06 16:48] LABS: Source CEREBROSPINAL FLUID
--- NOTE | 2024-11-06 18:03 | P.PNGS_ITS ---
Progress Note: A&P Assessment and Plan (1) Metabolic encephalopathy: Code(s): G93.41 - Metabolic encephalopathy Status: Acute (2) Unable to eat: Code(s): R63.8 - Other symptoms and signs concerning food and fluid intake Status: Acute Assessment and Plan: I called patient's daughter, Madonna, and explained that he will be needing some type of feeding tube so that he no longer has to have nasogastric or naso duodenal feedings. I also explained that, by his upper GI and his history, I doubt the stomach will be in a position that we can place a gastrostomy feeding tube. That would be the best option and if possible, gastrostomy tube will be placed. I do not expect that will be feasible, in which case a jejunostomy feed ing tube will be placed. Abdominal surgery will be difficult for him as he already has mental status changes and will no doubt have significant adhesions and scar tissue in the abdomen. Unfortunately, there is no voiding this unless we were to provide comfort measures only. They are not interested in that. Plan to go ahead tomorrow with feeding tube placement. 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 I spoke with his hospitalist, Dr. River, about this. He would like to go ahead with placement of a transperitoneal feeding tube. Exam Const: General: comfortable and awake Nutritional Appearance: thin GI: Inspection: non-distended, scaphoid and scar (Large upper abdominal midline scar as before) GI Palp: Yes Soft to palpation and No Tenderness to palpation present (GI) Objective Data Vital Signs Vital Signs: Vital Signs - 24 hr 11/05/24 20:00 11/05/24 21:16 11/06/24 06:00 Temperature 36.4 C 36.6 C Pulse Rate 87 84 Respiratory Rate 20 20 Blood Pressure 137/79 121/76 Pulse Oximetry 100 100 Oxygen Delivery Room Air 11/06/24 08:00 11/06/24 14:00 Temperature 36.6 C Pulse Rate 87 Respiratory Rate 18 Blood Pressure 118/72 Pulse Oximetry 100 Oxygen Delivery Room Air Intake/Output Intake/Output: Intake & Output 11/03/24 11/04/24 11/05/24 11/06/24 23:59 23:59 23:59 23:59 Intake Total 2357 1010 50 Output Total 2375 1500 1800 7185 [facility] -18 [phone] -2450 Meds/Results Medications: Active Medications Generic Name Dose Route Start Last Admin Trade Name Freq PRN Reason Stop Dose Admin Aspirin 81 mg 11/04/24 08:00 11/06/24 10:25 Aspirin 81 Mg Chewable Tablet FEED TUBE 81 mg DAILY@0800 JHONY Administration Dextrose 12.5 gm 10/17/24 21:26 10/30/24 05:55 Dextrose 50% 25 Gm/50 Ml Syringe IV PUSH 12.5 gm PRN PRN Administration Hypoglycemia Protocol Enoxaparin Sodium 40 mg 11/02/24 09:00 11/06/24 10:25 Enoxaparin 40 Mg/0.4 Ml Syringe SUB-Q 40 mg DAILY JHONY Administration Folic Acid 1 mg 10/24/24 09:00 11/06/24 10:25 Folic Acid 1 Mg Tablet FEED TUBE 1 mg QAM JHONY Administration Glucagon 1 mg 10/17/24 21:26 Glucagon For Inj 1 Mg Vial IM PRN PRN Hypoglycemia Protocol Glucose 15 gm 10/17/24 21:26 Glucose Oral Gel 15 Gm Of Glucse In 37.5 Gm Tube PO PRN PRN Hypoglycemia Protocol Dextrose 1,000 mls @ 100 mls/hr 10/17/24 21:26 Dextrose 5% 1,000 Ml IVPB PRN PRN Hypoglycemia Protocol Pantoprazole Sodium 40 mg 10/18/24 21:00 11/06/24 10:25 Pantoprazole Sodium Iv 40 Mg Vial IV PUSH 40 mg Q12HR JHONY Administration Rosuvastatin Calcium 10 mg 11/04/24 09:00 11/06/24 10:25 Rosuvastatin 10 Mg Tablet FEED TUBE 10 mg DAILY JHONY Administration Saccharomyces Boulardii 250 mg 11/05/24 09:00 11/06/24 10:25 Saccharomyces Boulardii 250 Mg Capsule PO 250 mg DAILY JHONY Administration Thiamine HCl 100 mg 10/24/24 09:00 11/06/24 10:25 Thiamine Hcl 100 Mg Tablet FEED TUBE 100 mg QAM JHONY Administration Radiology Results: ITS Impressions Chest/Abdomen/Pelvis CT 10/17/24 10:46 IMPRESSION: No hollow or solid organ injury. No acute fractures. Head CT 10/19/24 09:19 Impression: No acute intracranial hemorrhage or suspicious mass effect. Inflammatory sinus disease. Face CT 10/19/24 09:39 IMPRESSION: 1. Extensive sinus disease with near complete opacification of the right maxillary sinus and dependently layering fluid in the bilateral sphenoid sinuses. Correlate clinically for acute sinusitis. 2. Dental and periodontal disease with periapical lucency surrounding the posterior most remaining right maxillary molar. Renal Ultrasound 10/19/24 09:48 IMPRESSION: No hydronephrosis or renal calculi. No parenchymal findings to suggest the presence of medical renal disease. Simple cysts within the right kidney, for which no further follow-up is needed. Brain MRI 10/24/24 14:22 IMPRESSION: 1. Age-related changes the brain. No acute intracranial process. 2. Prominent sinus disease with fluid nearly filling the right maxillary sinus and layering dependently in the bilateral sphenoid sinuses. Correlate clinically for acute sinusitis. Chest X-Ray 10/29/24 14:04 Impression: Clear lungs. NG tube in place. Lumbar Puncture Fluoroscopy 10/31/24 17:34 IMPRESSION: 1. Successful fluoro-guided lumbar puncture with mildly elevated opening pressure of 23 cm water. Upper GI Series 11/02/24 12:44 IMPRESSION: 1. Partial distal gastrectomy with gastroduodenal anastomosis. Nasogastric tube tip extends beyond the anastomosis with proximal side-port in the remaining body of the stomach. Modified Barium Swallow 11/06/24 10:05 IMPRESSION: Nondiagnostic study as all contents either leaked or were actively expelled from the mouth. No swallows were able to be evaluated. Please correlate with speech pathologist findings and specific feeding recommendations. Labs Labs: Laboratory Results - last 24 hr 10/31/24 11/05/24 11/06/24 16:46 18:09 00:28 POC Capillary Glucose 100 111 H CSF Source Cerebrospinal fluid CSF [place] RNA Not detected 11/06/24 11/06/24 11/06/24 06:27 11:28 17:00 POC Capillary Glucose 114 H 109 H 110 H CSF Source CSF [place] RNA
[2024-11-06 21:26] VITALS: O2SAT 99
[2024-11-06 21:27] VITALS: BP 111/70; PULSE 87; RESP 16; TEMP 36.3; O2SAT 100
[2024-11-07] VITALS (14 sets, daily range): BP systolic 93–126; BP diastolic 61–83; PULSE 71–100; RESP 16–22; TEMP 36.3–36.5; O2SAT 90–100
[2024-11-07 05:10] LABS: Hematocrit 28.0 % (42.0-52.0); Hemoglobin 8.9 g/dL (14.0-18.0); Immature Granulocyte Percent A 0.4 % (0-0.5); Lymphocytes Absolute Auto 2.43 K/mm3 (0.9-3.2); Mean Corpuscular HGB Conc 31.8 g/dl (32-36); Mean Corpuscular Hemoglobin 28.7 pg (26-34); Mean Corpuscular Volume 90.3 fl (80-100); Nucleated Red Blood Cells Absolute Auto 0.000 K/mm3 (0.0-0.012); Nucleated Red Blood Cells Perc 0.0 % (0.0-0.2); Platelet Count Result 239 k/mm3 (150-375); Red Blood Count 3.10 M/mm3 (4.6-6.20); White Blood Count 11.4 K/mm3 (4.5-10.0)
[2024-11-07 05:33] LABS: Alanine Aminotransferase 22 U/L (6-50); Albumin Level 2.9 g/dL (3.5-5.1); Alkaline Phosphatase 157 U/L (38-126); Anion Gap 8 mmol/L (4-12); Aspartate Amino Transferase 37 U/L (17-59); Bilirubin,Total 0.8 mg/dL (0.2-1.3); Blood Urea Nitrogen 17 mg/dL (9-20); Calcium 8.4 mg/dL (8.4-10.2); Carbon Dioxide 21 mmol/L (22-30); Chloride 101 mmol/L (98-107); Estimated CRCL calculation 68 ml/min; Estimated Glomerular Filt Rate > 60; Glucose 94 mg/dL (65-110); Magnesium 1.4 mg/dL (1.6-2.3); Potassium 4.7 mmol/L (3.4-5.0); Sodium 130 mmol/L (137-145); Total Protein 7.2 g/dL (6.3-8.2)
[2024-11-07] MEDS: PANTOPRAZOLE SODIUM IV 40 MG VIAL IV PUSH ×2 (09:10→20:54)
[2024-11-07] MEDS: ENOXAPARIN 40 MG/0.4 ML SYRINGE SUB-Q (09:19)
--- NOTE | 2024-11-07 11:20 | PC.NURSE ---
Report called to Tor[facility] Pre[facility].
--- NOTE | 2024-11-07 11:33 | PC.NURSE ---
To OR via bed.
[2024-11-07] MEDS: LACTATED RINGERS 1,000 ML 30 ML IV CONT ×2 (13:00→16:57)
--- NOTE | 2024-11-07 14:02 | WPDANESEPPF ---
Anes - Initial Pre Proc Eval Procedure: Operation Date: 11/01/24 15:15 Proposed Procedures p Percutaneous Endoscopic Gastrostomy - Oren Bojorquez MD Operation Date: 11/06/24 13:00 Proposed Procedures p Placement Gastrostomy or Jejunostomy Feeding Tube - Tony Ortiz MD Operation Date: 11/07/24 15:00 Proposed Procedures p Placement Gastrostomy Or Jejunostomy Feeding Tube - Tony Ortiz MD Date/Time: 11/07/24 14:02 Surgeon: Tevin Dickerson MD Pre Op Diagnosis: Rhabdomyolysis, acute kidney injury altered mental Patient Data Age: 69 Gender: M Height: 1.73 m Weight: 65.2 kg Last Vital Signs Temp 36.5 C 11/07/24 06:00 Pulse 81 11/07/24 06:00 Resp 18 11/07/24 09:10 BP 110/71 11/07/24 06:00 Pulse Ox 100 11/07/24 09:10 O2 Del Method Room Air 11/07/24 09:10 O2 Flow Rate 4 11/01/24 16:08 FiO2 21 11/04/24 20:00 Allergies Allergy/AdvReac Type Severity Reaction Status Date / Time lisinopril Allergy Severe angioedema Verified 11/01/24 15:38 fenofibrate Allergy Intermediate hives Verified 11/01/24 15:38 Penicillins Allergy hives Verified 11/01/24 15:38 Home Medications ?Medication ?Instructions ?Recorded ?Confirmed ?Type allopurinol 100 mg tablet 100 mg PO DAILY 10/18/24 10/18/24 History amlodipine 10 mg tablet 10 mg PO DAILY 10/18/24 10/18/24 History aspirin 81 mg tablet,delayed 81 mg PO DAILY 10/18/24 10/18/24 History release carvedilol 12.5 mg tablet 12.5 mg PO BID 10/18/24 10/18/24 History rosuvastatin 10 mg tablet 10 mg PO DAILY 10/18/24 10/18/24 History Laboratory Tests 10/31/24 11/06/24 11/06/24 16:46 17:00 18:42 WBC RBC Hgb Hct MCV MCH MCHC RDW Plt Count MPV Immature Gran % (Auto) Neut % (Auto) Lymph % (Auto) [place] % (Auto) Eos % (Auto) Baso % (Auto) Lymph # (Auto) [place] # (Auto) Eos # (Auto) Baso # (Auto) Abs Immat Gran (auto) Absolute Neuts (auto) Absolute Nucleated RBC Nucleated RBC % Sodium Potassium Chloride Carbon Dioxide Anion Gap BUN Creatinine Estim Creat Clear Calc Estimated GFR Glucose POC Capillary Glucose 110 H mg/dl (65-105) Calcium Magnesium Total Bilirubin AST ALT Alkaline Phosphatase Total Protein Albumin CSF Source Cerebrospinal fluid CSF [place] RNA Not detected Blood Type B Negative Antibody Screen Negative 11/07/24 11/07/24 11/07/24 00:18 04:21 06:29 WBC 11.4 H K/mm3 (4.5-10.0) RBC 3.10 L M/mm3 (4.6-6.20) Hgb 8.9 L g/dL (14.0-18.0) Hct 28.0 L % (42.0-52.0) MCV 90.3 fl (80-100) MCH 28.7 pg (26-34) MCHC 31.8 L g/dl (32-36) RDW 21.2 H % (11.5-14.5) Plt Count 239 k/mm3 (150-375) MPV 11.0 H fl (7.4-10.4) Immature Gran % (Auto) 0.4 % (0-0.5) Neut % (Auto) 60.0 % (45.5-73.1) Lymph % (Auto) 21.4 % (18.3-44.2) [place] % (Auto) 14.6 H % (2.6-8.5) Eos % (Auto) 3.1 % (0-4.4) Baso % (Auto) 0.5 % (0.2-1.2) Lymph # (Auto) 2.43 K/mm3 (0.9-3.2) [place] # (Auto) 1.7 H K/mm3 (0.1-0.6) Eos # (Auto) 0.4 H K/mm3 (0-0.3) Baso # (Auto) 0.1 K/mm3 (0.0-0.1) Abs Immat Gran (auto) 0.05 H K/mm3 (0.00-0.031) Absolute Neuts (auto) 6.8 H K/mm3 (1.3-6.7) Absolute Nucleated RBC 0.000 K/mm3 (0.0-0.012) Nucleated RBC % 0.0 % (0.0-0.2) Sodium 130 L mmol/L (137-145) Potassium 4.7 mmol/L (3.4-5.0) Chloride 101 mmol/L (98-107) Carbon Dioxide 21 L mmol/L (22-30) Anion Gap 8 mmol/L (4-12) BUN 17 mg/dL (9-20) Creatinine 0.86 mg/dL (0.7-1.3) Estim Creat Clear Calc 68 ml/min Estimated GFR > 60 (59 - ) Glucose 94 mg/dL (65-110) POC Capillary Glucose 125 H mg/dl 103 mg/dl (65-105) (65-105) Calcium 8.4 mg/dL (8.4-10.2) Magnesium 1.4 L mg/dL (1.6-2.3) Total Bilirubin 0.8 mg/dL (0.2-1.3) AST 37 U/L (17-59) ALT 22 U/L (6-50) Alkaline Phosphatase 157 H U/L (38-126) Total Protein 7.2 g/dL (6.3-8.2) Albumin 2.9 L g/dL (3.5-5.1) CSF Source CSF [place] RNA Blood Type Antibody Screen 11/07/24 12:25 WBC RBC Hgb Hct MCV MCH MCHC RDW Plt Count MPV Immature Gran % (Auto) Neut % (Auto) Lymph % (Auto) [place] % (Auto) Eos % (Auto) Baso % (Auto) Lymph # (Auto) [place] # (Auto) Eos # (Auto) Baso # (Auto) Abs Immat Gran (auto) Absolute Neuts (auto) Absolute Nucleated RBC Nucleated RBC % Sodium Potassium Chloride Carbon Dioxide Anion Gap BUN Creatinine Estim Creat Clear Calc Estimated GFR Glucose POC Capillary Glucose 82 mg/dl (65-105) Calcium Magnesium Total Bilirubin AST ALT Alkaline Phosphatase Total Protein Albumin CSF Source CSF [place] RNA Blood Type Antibody Screen Patient hx anesthesia problems: none Family hx anesthesia problems: none Results Review: All pre-operative results and documents have been reviewed as part of the pre-operative evaluation. [facility] Past Medical History Medical History Metabolic encephalopathy Alcohol abuse Acute encephalopathy Cancer Gout Surgical History Surgical History History of Billroth I operation Distal gastric resection and Billroth 1 gastroduodenostomy placed 25 years ago for bleeding ulcers. Social History Social History Smoking packs per day: 0.3 Smoking cigarettes per day: 6.0 Smoking status: Former smoker Additional smoking assessment comments: unknown when quit Spiritual care concerns: No Anes - Eval Final PreProcedure Day of Procedure 11/07/24 14:02 Patient weight: normal Heart: regular rate and rhythm Lungs: decreased breath sounds Neurological: confused Last oral intake: >/= 8 hours ASA classification: IV Anesthetic plan: proceed Anesthesia type and monitoring: general ETT and standard monitoring Results Review: All pre-operative results and documents have been reviewed as part of the pre-operative evaluation. Informed Consent: The patient's anesthetic plan and its attendant risks and benefits were discussed with the patient/family/POA. Questions were solicited and answers provided to the satisfaction of the patient/family/POA.
--- NOTE | 2024-11-07 14:19 | WPDHPUPDATE1 ---
History and Physical Update Update Date/Time: 11/07/24 14:19 History and Physical has been reviewed, including an updated exam of the patient. There are NO changes in the patient's condition. Risks, benefits, and alternatives have been discussed and questions answered. Patient agrees to proceed with procedure.
[2024-11-07] MEDS: ceFAZolin 2 GM/D5W 50 ML 2 GM/50 ML BAG IVPB (14:21)
[2024-11-07] MEDS: metroNIDAZOLE 500 MG/ISO 100ML 500 MG/100 ML BAG 100 MG IVPB (14:25)
[2024-11-07 16:43] LABS: Herpes Simplex Type 2 DNA PCR NOT DETECTED
--- NOTE | 2024-11-07 17:17 | PM.IMPN ---
Progress Note: A&P Assessment and Plan (1) Shock: Code(s): R57.9 - Shock, unspecified Status: Acute Assessment and Plan: RESOLVED 10/17: EMS arrived at patient's house: he was found face down with, hypotensive with systolic in the 50s, patient given IV fluids in the ER, central line inserted, started on Levophed. CT head was negative. Chest x-ray with no focal infiltrate or effusion. CT chest abdomen pelvis with no acute findings. Face CT with extensive sinus disease with near complete opacification of the right maxillary sinus and dependently layering fluid in the bilateral sphenoid sinuses. Dental and periodontal disease with periapical lucency surrounding the posterior-most remaining right maxillary molar. -off Levophed since the morning of 10/18 -procalcitonin levels are at high -patient was started on cefepime and vancomycin which was discontinued since there was no nidus of infection -MRSA screen is negative, -10/17: Blood cultures negative-so far -no nidus of infection on either chest x-ray, CT chest abdomen and pelvis, UA was clear, -10/19: given low body temperature, elevated procalcitonin started on ceftriaxone empirically. Procalcitonin can also be raised in tissue injury -10/19: UA reflective of UTI, also given sinusitis on CT scan of the face, started patient on ceftriaxone since 10/19/2024. Urine culture not obtained. Now concluded Liquid stool. Could be tube feed related. C diff came back positive Started on vancomycin 10/22/2024 and concluded 11/01/2024 Still has liquid stool could be from tube feeds (2) Altered mental status: Qualifiers: Altered mental status type: disorientation Qualified Code(s): R41.0 - Disorientation, unspecified Code(s): R41.82 - Altered mental status, unspecified Status: Acute Assessment and Plan: Altered mental status is multifactorial could be related to hypovolemia, shock, hypotension, acute kidney injury, rhabdomyolysis -CT brain was negative for intracranial abnormalities -MRI cannot be performed as patient was in the [place] and may have sharpnel exposure according to his daughter -10/19: Repeat CT brain did not show any acute intracranial hemorrhage or suspicious mass effect, inflammatory sinus disease. -10/19: CT facial bones showed extensive sinus disease with near complete opacification of the right maxillary sinus and dependently layering fluid in the bilateral sphenoid sinuses. Dental and periodontal disease with periapical lucency surrounding the posterior most remaining right maxillary molar Despite improvement in metabolic issues he remains encephalopathic Neurology consultation Brain MRI: Age-related changes in the brain with no acute intracranial process. Prominent sinus disease with fluid nearly filling the right maxillary sinus and layering dependently in the bilateral sphenoid sinuses. EEG performed: No seizure activity noted. Lumbar puncture 10/31/2024 with mildly elevated opening pressure of 23 cm water CSF with high-protein (3) Fall (on) (from) other stairs and steps, initial encounter: Code(s): W10.8XXA - Fall (on) (from) other stairs and steps, initial encounter Status: Acute Assessment and Plan: Patient was found on the ground face down unknown amount of time, unknown etiology -continue treat underlying cause -10/18: Echocardiogram showed EF of 60-65%, normal biventricular size and systolic function, no significant valvular abnormalities (4) Acute kidney injury: Code(s): N17.9 - Acute kidney failure, unspecified Status: Acute Assessment and Plan: Acute kidney injury likely related to hypotension, hypovolemia, shock, rhabdomyolysis resolved Rhabdomyolysis resolved, CK 65 (5) Rhabdomyolysis: Qualifiers: Encounter type: initial encounter Rhabdomyolysis type: traumatic Qualified Code(s): T79.6XXA - Traumatic ischemia of muscle, initial encounter Code(s): M62.82 - Rhabdomyolysis Status: Acute Assessment and Plan: Rhabdomyolysis likely related to being down on the ground for unknown amount of time -patient has been given 3 L IV fluids in the ER plus 500 mL of LR bolus in the ICU on 10/18. Patient seems to be adequately fluid-resuscitated -continue IV fluids per Nephrology CK levels trended to 65 (6) Electrolyte imbalance: Code(s): E87.8 - Other disorders of electrolyte and fluid balance, not elsewhere classified Status: Acute Assessment and Plan: Magnesium repleted (7) Anemia: Code(s): D64.9 - Anemia, unspecified Status: Acute Assessment and Plan: Patient dropped his hemoglobin this morning to 6.2 from 9.1 on admission -10/18: status post 2 units of packed RBCs -stool occult is negative -vitamin B12 levels are normal, folic acid is low will substitute -iron panel looks normal -hemoglobin remained stable EGD previous gastric surgery and evidence of gastritis G tube placement today GI adn Gen surgery following (8) Thrombocytopenia: Code(s): D69.6 - Thrombocytopenia, unspecified Status: Acute Assessment and Plan: Thrombocytopenia with platelet counts of 62 this morning, 91 on admission -10/18: status post 1 unit of platelets -INR 1.2 on admission -platelets remain low, continue to monitor Does have history of chronic alcohol abuse per family. Platelets today 239 Concern for TTP. HIT antibody negative ITP antibody negative Thrombocytopenia has resolved Hematology consult recommended Procrit Plan Hyponatremia noted 11/03/2024. resolving Na 130 DVT prophylaxis on Sq Lovenox Subjective Date/time seen: 11/07/24 17:17 Interval history: Comfortable at bedside For G tube placement today Review of Systems Review of Systems: All systems reviewed & are unremarkable except as noted in HPI and below ( Limited, A&O x1, unreliable) ROS unobtainable: Yes unobtainable due to medical condition and unobtainable due to mental status Exam Narrative: Patient is comfortable, NAD HEENT: eyes are clear and none icteric, NG tube in place LUNGS: Diminished breath sounds bilaterally HEART: RR S1S2 ABD: BS+, Soft and nontender Lower extremities: no edema SKIN: nonjaundiced Neuro: Somnolent today, does not follow commands Const: General: comfortable and no acute distress Other: , frail, ill-appearing, elderly HENMT: Face/Nose/Sinus: Normal nares present Mouth: Yes dry mucous membranes Eyes: General: appearance normal, both eyes and all related structures Sclera: sclerae normal Pupils: Equal, round and reactive pupils present EOM: EOMs intact bilaterally Resp: Effort & Inspection: normal respiratory effort Auscultation: clear to auscultation bilaterally Cardio: Rate: regular rate Rhythm: regular rhythm Other: S1-S2 present without murmur, rub, ectopy GI: Other: abdomen soft, nondistended, nontender. Hyperactive bowel sounds in all quadrants. Skin: General skin exam: normal color and no rashes or lesions noted Other: Modest swelling to the right side of the patient's face. Neuro: Cranial nerves: Yes Equal, round and reactive pupils present Other: Garbled speech, difficult to understand. A&O x1. Moving all extremities, however + 1 in all extremities. Left foot weaker than right. Manager Body symmetric. Right facial droop verses droop due to swelling. Extrem: General: normal to inspection Psych: Other: Poor insight and judgment at present, pleasant. Objective Data Vital Signs Vital Signs: Vital Signs - 24 hr 11/06/24 20:00 11/06/24 21:26 11/06/24 21:27 Temperature 97.4 F L Pulse Rate 87 Respiratory Rate 16 Blood Pressure 111/70 Pulse Oximetry 99 100 Oxygen Delivery Room Air Room Air Oxygen Flow Rate 11/07/24 06:00 11/07/24 09:10 11/07/24 16:57 Temperature 97.7 F 97.4 F L Pulse Rate 81 84 Respiratory Rate 18 18 22 H Blood Pressure 110/71 112/82 Pulse Oximetry 100 100 100 Oxygen Delivery Room Air Simple Face Mask Oxygen Flow Rate 6 11/07/24 17:10 Temperature Pulse Rate 89 Respiratory Rate 20 Blood Pressure 112/83 Pulse Oximetry 100 Oxygen Delivery Simple Face Mask Oxygen Flow Rate 6 Intake/Output Intake/Output: Intake & Output 11/04/24 11/05/24 11/06/24 11/07/24 23:59 23:59 23:59 23:59 Intake Total 1010 50 150 Output Total 1500 1800 2450 1150 Balance -490 -1750 -2450 -1000 Meds/Results Medications: Active Medications Generic Name Dose Route Start Last Admin Trade Name Freq PRN Reason Stop Dose Admin Aspirin 81 mg 11/04/24 08:00 11/07/24 09:08 Aspirin 81 Mg Chewable Tablet FEED TUBE Not Given DAILY@0800 JHONY Dextrose 12.5 gm 10/17/24 21:26 10/30/24 05:55 Dextrose 50% 25 Gm/50 Ml Syringe IV PUSH 12.5 gm PRN PRN Administration Hypoglycemia Protocol Enoxaparin Sodium 40 mg 11/02/24 09:00 11/07/24 09:19 Enoxaparin 40 Mg/0.4 Ml Syringe SUB-Q 40 mg DAILY JHONY Administration Fentanyl Citrate 25 mcg 11/07/24 14:05 Fentanyl Citrate Inj (*Crx) 100 Mcg/2 Ml Vial IV PUSH Q2M PRN Pain Folic Acid 1 mg 10/24/24 09:00 11/07/24 09:08 Folic Acid 1 Mg Tablet FEED TUBE Not Given QAM JHONY Glucagon 1 mg 10/17/24 21:26 Glucagon For Inj 1 Mg Vial IM PRN PRN Hypoglycemia Protocol Glucose 15 gm 05/28/25 21:26 Glucose Oral Gel 15 Gm Of Glucse In 37.5 Gm Tube PO PRN PRN Hypoglycemia Protocol Dextrose 1,000 mls @ 100 mls/hr 10/17/24 21:26 Dextrose 5% 1,000 Ml IVPB PRN PRN Hypoglycemia Protocol Lactated Ringer's 1,000 mls @ 30 mls/hr 11/07/24 14:05 11/07/24 16:57 Lr - Lactated Ringers Iv IV CONT Infused .Q24H JHONY Infusion Lactated Ringer's 1,000 mls @ 30 mls/hr 11/07/24 14:05 11/07/24 16:57 Lr - Lactated Ringers Iv IV CONT 30 mls/hr .Q24H JHONY Administration Ondansetron HCl 4 mg 11/07/24 14:05 Ondansetron Inj 4 Mg/2 Ml Vial IV PUSH ONCE PRN Nausea Pantoprazole Sodium 40 mg 10/18/24 21:00 11/07/24 09:10 Pantoprazole Sodium Iv 40 Mg Vial IV PUSH 40 mg Q12HR JHONY Administration Rosuvastatin Calcium 10 mg 11/04/24 09:00 11/07/24 09:08 Rosuvastatin 10 Mg Tablet FEED TUBE Not Given DAILY JHONY Saccharomyces Boulardii 250 mg 11/05/24 09:00 11/07/24 09:09 Saccharomyces Boulardii 250 Mg Capsule PO Not Given DAILY JHONY Thiamine HCl 100 mg 10/24/24 09:00 11/07/24 09:09 Thiamine Hcl 100 Mg Tablet FEED TUBE Not Given QAM [facility] Radiology Results: ITS Impressions Chest/Abdomen/Pelvis CT 10/17/24 10:46 IMPRESSION: No hollow or solid organ injury. No acute fractures. Head CT 10/19/24 09:19 Impression: No acute intracranial hemorrhage or suspicious mass effect. Inflammatory sinus disease. Face CT 10/19/24 09:39 IMPRESSION: 1. Extensive sinus disease with near complete opacification of the right maxillary sinus and dependently layering fluid in the bilateral sphenoid sinuses. Correlate clinically for acute sinusitis. 2. Dental and periodontal disease with periapical lucency surrounding the posterior most remaining right maxillary molar. Renal Ultrasound 10/19/24 09:48 IMPRESSION: No hydronephrosis or renal calculi. No parenchymal findings to suggest the presence of medical renal disease. Simple cysts within the right kidney, for which no further follow-up is needed. Brain MRI 10/24/24 14:22 IMPRESSION: 1. Age-related changes the brain. No acute intracranial process. 2. Prominent sinus disease with fluid nearly filling the right maxillary sinus and layering dependently in the bilateral sphenoid sinuses. Correlate clinically for acute sinusitis. Chest X-Ray 10/29/24 14:04 Impression: Clear lungs. NG tube in place. Lumbar Puncture Fluoroscopy 10/31/24 17:34 IMPRESSION: 1. Successful fluoro-guided lumbar puncture with mildly elevated opening pressure of 23 cm water. Upper GI Series 11/02/24 12:44 IMPRESSION: 1. Partial distal gastrectomy with gastroduodenal anastomosis. Nasogastric tube tip extends beyond the anastomosis with proximal side-port in the remaining body of the stomach. Modified Barium Swallow 11/06/24 10:05 IMPRESSION: Nondiagnostic study as all contents either leaked or were actively expelled from the mouth. No swallows were able to be evaluated. Please correlate with speech pathologist findings and specific feeding recommendations. Labs Labs: Laboratory Results - last 24 hr 10/31/24 11/06/24 11/07/24 16:46 18:42 00:18 WBC RBC Hgb Hct MCV MCH MCHC RDW Plt Count MPV Immature Gran % (Auto) Neut % (Auto) Lymph % (Auto) [place] % (Auto) Eos % (Auto) Baso % (Auto) Lymph # (Auto) [place] # (Auto) Eos # (Auto) Baso # (Auto) Abs Immat Gran (auto) Absolute Neuts (auto) Absolute Nucleated RBC Nucleated RBC % Sodium Potassium Chloride Carbon Dioxide Anion Gap BUN Creatinine Estim Creat Clear Calc Estimated GFR Glucose POC Capillary Glucose 125 H Calcium Magnesium Total Bilirubin AST ALT Alkaline Phosphatase Total Protein Albumin Fluid EBV Source Cerebrospinal fluid CSF EBV DNA (PCR) Not detected CSF Herpes I DNA (PCR) Not detected CSF Herpes II DNA (PCR) Not detected HSV (PCR) Source Cerebrospinal fluid Blood Type B Negative Antibody Screen Negative 11/07/24 11/07/24 11/07/24 04:21 06:29 12:25 WBC 11.4 H RBC 3.10 L Hgb 8.9 L Hct 28.0 L MCV 90.3 MCH 28.7 MCHC 31.8 L RDW 21.2 H Plt Count 239 MPV 11.0 H Immature Gran % (Auto) 0.4 Neut % (Auto) 60.0 Lymph % (Auto) 21.4 [place] % (Auto) 14.6 H Eos % (Auto) 3.1 Baso % (Auto) 0.5 Lymph # (Auto) 2.43 [place] # (Auto) 1.7 H Eos # (Auto) 0.4 H Baso # (Auto) 0.1 Abs Immat Gran (auto) 0.05 H Absolute Neuts (auto) 6.8 H Absolute Nucleated RBC 0.000 Nucleated RBC % 0.0 Sodium 130 L Potassium 4.7 Chloride 101 Carbon Dioxide 21 L Anion Gap 8 BUN 17 Creatinine 0.86 Estim Creat Clear Calc 68 Estimated GFR > 60 Glucose 94 POC Capillary Glucose 103 82 Calcium 8.4 Magnesium 1.4 L Total Bilirubin 0.8 AST 37 ALT 22 Alkaline Phosphatase 157 H Total Protein 7.2 Albumin 2.9 L Fluid EBV Source CSF EBV DNA (PCR) CSF Herpes I DNA (PCR) CSF Herpes II DNA (PCR) HSV (PCR) Source Blood Type Antibody Screen Quality VTE Prophylaxis VTE prophylaxis: mechanical ordered
--- NOTE | 2024-11-07 17:22 | W.PM.PROC2 ---
Procedure Note - Detailed Date of Procedure 11/07/24 Pre-op Diagnosis Metabolic encephalopathy, unable to eat Post-op Diagnosis Same Procedure Performed Placement of jejunostomy feeding tube Surgeon Tony Ortiz MD Steel Erector Apprentice Elizabeth Terry, [facility] Anesthesia General Indications Patient presented after having been found unconscious. Exact reasons are not known but felt to be due to encephalopathy. He was initially in septic shock and required intensive care unit services. That has improved and he does seem to be slowly gaining more mentation. Unfortunately, he has had now a couple of modified swallows and is unable to eat. Attempts at placing a PEG tube were not successful as the patient has a previous history of distal gastric resection and Billroth II gastroduodenostomy for bleeding ulcers 25 years ago. He has been receiving tube feedings per nasogastric tube and I have been asked to place an abdominal feeding tube for long-term tube feeding management. Patient did have an upper GI and has very small gastric remnant which is in the upper abdomen and not really accessible to the abdominal wall as it is surrounded by ribs and sternum. Findings Patient had many abdominal adhesions. The upper abdomen was only palpated but very dense adhesions were noted. I was however able to take these down and find the appropriate area of small intestine to place a jejunostomy feeding tube. Description of Procedure Patient was taken to surgery and induced into general anesthesia. The abdomen is prepped draped. I excised the scar over the lower half of the patient's old midline incision. We then continued our dissection through the midline fascia and eventually into the peritoneal cavity. Multiple old Prolene suture were found. He has seemed to have been placed in interrupted fashion. We removed all that we could find. In fact, later in the surgery, we again looked for the suture and removed all that could be found. After entering the peritoneal cavity, anterior abdominal wall adhesions were taken down. There was some small intestinal adhesions particularly on the patient's right side. Eventually I was able to free the omentum from the anterior abdominal wall so that it was mobile and able to be placed in its typical position. Fortunately the small intestine inside the abdomen were mobile and I was able to find the ligament of Treitz. As mentioned above, I did look and palpate the upper abdomen where the previous surgery was performed. Dense adhesions were present and any surgery in this region would require full extension of the old incision and a very lengthy, risky procedure would have been required. This was contraindicated particularly since, even if the stomach was found and mobilized, it would be too small to be used for a gastrostomy tube. I found an area about 30-40 cm distal to the ligament of Treitz. I passed an 18 Vietnamese red rubber catheter through a small opening in the anterior abdominal wall on the left side. I cut extra holes in the end of the red rubber catheter. I then made a small opening in the anti mesenteric aspect of the small intestine I found earlier. I then passed the red rubber catheter distally into the small intestine about 20 or 25 sent meters. I then used 3-0 Vicryl suture to create a pursestring suture around the enterotomy and tied this to the red rubber catheter. I then used a 4-0 chromic suture and started just past the feeding tube entrance site in the small bowel and created a serosal tunnel for the feeding tube. This tunnel was about 20 cm long. I tied the 4-0 chromic suture at the end. I then used 4-0 silk and secured the end of the serosal tunnel to the anterior abdominal wall with 3 different suture. We flushed the tube with saline and no leaks were seen. I then used 3-0 nylon and secured the red rubber catheter to the skin. We checked the feeding tube and the small intestine containing the feeding tube. All looked good. I laid the omentum over the jejunostomy tube. The midline fascia was closed with bidirectional running 1. PDS suture. The subcutaneous was closed with interrupted 3-0 Vicryl suture. The skin was loosely approximated with subcuticular interrupted 4-0 Vicryl suture. A drain sponge and bandage was applied over the exit site of the J-tube. The J-tube was capped. The incision was dressed with Xeroform gauze, fluffs and Medipore tape. Patient was then awakened and taken to recovery in good condition. Sponge and needle counts were correct x2. Estimated Blood Loss -50 Urine Output 600 Drains No Packing No Pathology None sent Complications None Condition Stable Disposition PACU [facility] Billing Surgery - Charge Forward: Surgery Billing (Placement jejunostomy feeding tube)
--- NOTE | 2024-11-07 18:15 | PC.NURSE ---
Returned from OR via bed.
[2024-11-07] MEDS: MAGNESIUM SULFATE 3GM/D5W100ML 3 GM/100 ML BAG IVPB (18:20)
[2024-11-07] MEDS: LACTATED RINGERS 1,000 ML 80 ML IV CONT (20:55)
[2024-11-07 21:46] LABS: Hematocrit 26.4 % (42.0-52.0); Hemoglobin 8.4 g/dL (14.0-18.0)
[2024-11-08] VITALS (27 sets, daily range): BP systolic 70–118; BP diastolic 40–76; PULSE 57–110; RESP 16–30; TEMP 35.6–36.7; O2SAT 98–100
[2024-11-08] MEDS: fentaNYL CITRATE INJ (*CRX) 100 MCG/2 ML VIAL 12.5 MCG IV PUSH (03:06)
[2024-11-08 05:30] LABS: Hematocrit 22.2 % (42.0-52.0); Hemoglobin 7.2 g/dL (14.0-18.0); Immature Granulocyte Percent A 1.2 % (0-0.5); Lymphocytes Absolute Auto 2.54 K/mm3 (0.9-3.2); Mean Corpuscular HGB Conc 32.4 g/dl (32-36); Mean Corpuscular Hemoglobin 29.5 pg (26-34); Mean Corpuscular Volume 91.0 fl (80-100); Nucleated Red Blood Cells Absolute Auto 0.000 K/mm3 (0.0-0.012); Nucleated Red Blood Cells Perc 0.0 % (0.0-0.2); Platelet Count Result 389 k/mm3 (150-375); Red Blood Count 2.44 M/mm3 (4.6-6.20); White Blood Count 19.7 K/mm3 (4.5-10.0)
[2024-11-08 05:46] LABS: Alanine Aminotransferase 30 U/L (6-50); Albumin Level 2.7 g/dL (3.5-5.1); Alkaline Phosphatase 140 U/L (38-126); Anion Gap 13 mmol/L (4-12); Aspartate Amino Transferase 60 U/L (17-59); Bilirubin,Total 1.3 mg/dL (0.2-1.3); Blood Urea Nitrogen 25 mg/dL (9-20); Calcium 8.4 mg/dL (8.4-10.2); Carbon Dioxide 16 mmol/L (22-30); Chloride 101 mmol/L (98-107); Estimated CRCL calculation 37 ml/min; Estimated Glomerular Filt Rate 42; Glucose 93 mg/dL (65-110); Magnesium 2.1 mg/dL (1.6-2.3); Potassium 5.6 mmol/L (3.4-5.0); Sodium 130 mmol/L (137-145); Total Protein 6.5 g/dL (6.3-8.2)
[2024-11-08] MEDS: ETOMIDATE 20 MG/10 ML AMPUL 30 MG IV PUSH (07:15)
[2024-11-08] MEDS: NOREPINEPHRINE 8 MG/D5W 250 ML 8 MG/250 ML BAG 9.38 MG IV CONT (07:15)
[2024-11-08] MEDS: ROCURONIUM BROMIDE 50 MG/5 ML VIAL 30 MG IV PUSH (07:16)
--- NOTE | 2024-11-08 07:28 | WPDPROCEDUR ---
Procedures Intubation Intubation Date: 11/08/24 Intubation Time: 07:15 Consent: Procedure performed emergently. Unable to obtain consent prior to procedure. Sedative: etomidate Mg given: 30 Paralytic: rocuronium Mg given: 30 Laryngoscope: fiber optic video scope ET tube size: 8 Tube secured depth (cm): 22 Tube secured location: teeth Tube placement confirmation: visualized tube passing through cords, equal breath sounds bilaterally, no breath sounds over epigastrium and confirmation by capnometry Patient tolerated procedure: well and no complications Additional comments: Post intubation chest x-ray reviewed. ET tube 2 cm from the tiffany. Orders given to pull back ET tube by aircraft metalsmith.
--- NOTE | 2024-11-08 07:36 | PM.CCN ---
Critical Care Event Note Summary Code activated: No Narrative: 69-year-old male has been hospitalized since the 17 of October. Initially treated for septic shock in the ICU. He was treated for C diff colitis with oral vancomycin administered through the NG tube is patient's failed multiple modified barium swallows. GI tried the placed G-tube in failed due to patient having prior bili Sahni procedure. Patient subsequent and had to due to ostomy tube placed yesterday by General surgery. Nursing staff called me in the early childhood aide classroom hours due to patient having lactic acidosis with lactic acid of 5.3. To explain at that time that the patient was having a course breath sound and he was tachypneic. On review of patient's chart his cam elevated of fluid status for the hospital stay was supposedly 18 L positive. Patient did have a fecal management system in place and had been treated for C diff with completion of antibiotic therapy with p.o. vancomycin on the . The the patient's white count had been normal but repeat white count this a.m. had jumped to 18. I ordered stat chest x-ray which was really not impressive compared to prior. Patient was on 3 L nasal cannula and respiratory status had initially improved after suctioning. However the patient's blood pressures that had been in the 110s to 130s systolic head trended down to the mid 90s. But the patient had continued to get fentanyl despite soft blood pressures Just before shift change the patient blood pressure dropped again down to 88. A rapid response was called. A stat ABG was ordered but I arrived at the bedside prior to it being obtained. On my evaluation patient yet unequal pupils left greater than right and was unresponsive to stimuli. Patient was having labored respirations. An order was given for 500 mL fluid bolus and a stat CT of the brain. But given his respiratory status decision was made to intubate the patient is did not appear that the patient was protecting his airway. Patient was moved to the ICU and intubated with details per procedure note. Stat CT of the chest abdomen pelvis without contrast has been ordered. Labs were reviewed and demonstrated acute kidney injury with acute mild hyperkalemia. The patient's hemoglobin has also been trending downward. On exam following intubation patient's lung sounds were relatively clear. Repeat chest x-ray was reviewed ET tube was approximately 2 cm from the tiffany. A patient was hypotensive despite 500 mL bolus and subsequently patient was started on peripheral Levophed and an order was placed for PICC line placement by vascular access nurse. Stat procalcitonin, repeat lactic acid blood cultures were ordered. Lab was at bedside to drawl the labs but patient was moved to the ICU 1st. At transition of care lab was back at bedside to drawl labs. Retail Greeting Card Merchandiser at arrived at bedside and care was transition to dropper tank storage. Severe sepsis--differential including pneumonia, recurrent C diff or other intra-abdominal process given recent surgical intervention. Dificid has been ordered. Will obtain CT of chest abdomen pelvis to evaluate for further pathology and added additional antibiotics depending on results. Will obtain sputum culture and Gram stain. Acute hypoxic respiratory failure--initial vent settings of 380 peep of 550% FiO2 and rate of 18. Post intubation ABG has been ordered. He will monitor daily ABGs and chest x-rays Hypotension--patient does not appear to be overtly fluid overloaded. May benefit from additional fluids. Will obtain cheetah. Acute kidney injury with acute hyperkalemia and drop in serum bicarb suggesting metabolic acidosis--patient would benefit from the bicarb administration and or additional fluid resuscitation defer management to dropper tank storage. Will order Lokelma. Due to a high probability of clinically significant, life threatening deterioration, the patient required my highest level of preparedness to intervene emergently and I personally spent this critical care time directly and personally managing the patient. This critical care time included obtaining a history; examining the patient; pulse oximetry; ordering and review of studies; arranging urgent treatment with development of a management plan; evaluation of patient's response to treatment; frequent reassessment; and discussions with other providers. It was exclusive of separately billable procedures and treating other patients and teaching time. Please see Assessment and Plan section and the rest of the note for further information on patient assessment and treatment. Critical care time: 30 - 74 mins (50 minutes)
--- NOTE | 2024-11-08 07:37 | PC.NURSE ---
Patient had low blood pressure at the start shift. I notified the provider and she ordered a stat hemoglobin and hematocrit and to start already ordered LR. Hemoglobin came as 8.4 and hematocrit 26.4. Blood pressure improved but remained soft throughout the night. Patient remained at baseline. At 0500 during hourly CV check I noticed he was having problems clearing secretions and attempted to suction him. I was able to get some secretions out but patient still sounded gargled so I asked the charge nurse to assist me. After second attempt he sound better. I notified provider. She ordered a stat chest ray and to hold fluids. I disconnected fluids and after chest x-ray I went back into assess patient. He had secretions again so I suctioned him again, however he was not responding. I took his vitals. His blood pressure and pulse were low. I notified charge nurse and a rapid was called. Patient was moved to ICU and CT was ordered. I notified the family of the patient's change of condition and new location.
[2024-11-08] MEDS: MIDAZOLAM 100MG/NS 100ML(*CRX) 100 MG/100 ML BAG IV CONT ×2 (07:53→22:01)
[2024-11-08] MEDS: LIDOCAINE 1% PF INJ 5 ML VIAL INFILTRATE (08:00)
[2024-11-08] MEDS: SODIUM CHLORIDE 0.9% IV 500 ML IV CONT (08:01)
[2024-11-08] MEDS: LACTATED RINGERS 1,000 ML 999 ML IV CONT ×2 (08:06→10:37)
[2024-11-08 08:15] LABS: Alveolar/Arterial O2 Gradient 234.0 mmHg; Fractional Inspired Oxygen 50 %; HCO3 ABG 16.9 mEq/l (22.0-26.0); Oxygen Content ABG 10.6 %vol (16.0-22.0); Oxygen Saturation ABG 97.5 % (95.0-100.0); PCO2 ABG 26.0 mmHg (35.0-45.0); PO2 ABG 93.3 mmHg (80.0-100.0); PO2 FiO2 Ratio Arterial Blood 1.87 %
[2024-11-08 08:18] LABS: Arterial Blood Gas Ventilator rate 20 /MIN; Site Drawn RIGHT RADIAL
[2024-11-08 08:19] LABS: Arterial Blood Gas Tidal Volume 400 ml
[2024-11-08] MEDS: MINERAL OIL/WHITE PETROLATUM OINTMENT 1 APPLIC EACH EYE ×2 (08:19→20:30)
[2024-11-08] MEDS: AZTREONAM 1 GM/NS 50 ML 1 GM/50 ML BAG IVPB (08:19)
[2024-11-08] MEDS: ALBUMIN HUMAN 25% 25 GM/100 ML 100 ML IVPB ×3 (08:20→20:30)
[2024-11-08] MEDS: ENOXAPARIN 40 MG/0.4 ML SYRINGE SUB-Q (08:20)
[2024-11-08] MEDS: SODIUM ZIRCONIUM CYCLOSILICATE 10 GM POWD.PACK FEED TUBE ×3 (08:20→18:28)
[2024-11-08] MEDS: SODIUM BICARBONATE TAB 650 MG TABLET FEED TUBE ×2 (08:21→18:28)
[2024-11-08] MEDS: THIAMINE HCL 100 MG TABLET FEED TUBE (08:21)
[2024-11-08] MEDS: FOLIC ACID 1 MG TABLET FEED TUBE (08:21)
[2024-11-08] MEDS: ASPIRIN 81 MG CHEWABLE TABLET FEED TUBE (08:21)
[2024-11-08] MEDS: SODIUM BICARBONATE 8.4% 50 MEQ/50 ML SYRINGE IV PUSH ×2 (08:21→10:36)
[2024-11-08] MEDS: SACCHAROMYCES BOULARDII 250 MG CAPSULE PO (08:21)
[2024-11-08] MEDS: PANTOPRAZOLE SODIUM IV 40 MG VIAL IV PUSH ×2 (08:22→20:30)
[2024-11-08 08:34] LABS: Anion Gap 13 mmol/L (4-12); Blood Urea Nitrogen 30 mg/dL (9-20); Calcium 8.4 mg/dL (8.4-10.2); Carbon Dioxide 17 mmol/L (22-30); Chloride 101 mmol/L (98-107); Estimated CRCL calculation 31 ml/min; Estimated Glomerular Filt Rate 35; Glucose 110 mg/dL (65-110); Potassium 6.4 mmol/L (3.4-5.0); Sodium 131 mmol/L (137-145)
[2024-11-08 08:35] LABS: Creatine Kinase 151 U/L (55-170)
[2024-11-08 08:42] LABS: INR 1.6; Prothrombin Time 19.4 Seconds (11.1-14.7)
--- NOTE | 2024-11-08 08:42 | WPDINTPN ---
Progress Note: A&P Assessment and Plan (1) Shock: Code(s): R57.9 - Shock, unspecified Status: Acute Assessment and Plan: Patient initially presented with septic shock which had resolved Now patient has developed new hypotension. Suspect aspiration pneumonia versus UTI as patient has had Michelle for more than 2 weeks., or persistent C diff infection Checks blood, sputum culture culture Change Michelle and check UA and micro and urine culture Check procalcitonin level Check CT chest abdomen pelvis Continue Dificid and start aztreonam and Flagyl. Will discuss with Infectious Disease pharmacist Patient received 500 cc bolus and give him additional 1 L LR bolus Add 25% albumin Levophed infusion (2) Metabolic encephalopathy: Code(s): G93.41 - Metabolic encephalopathy Status: Acute Assessment and Plan: Patient has had Altered mental status since admission which has been multifactorial Patient was evaluated by Neurology and suspected to have metabolic encephalopathy. -CT brain on presented was negative for intracranial abnormalities. Repeat CT scan ordered -MRI cannot be performed as patient was in the [place] and may have sharpnel exposure according to his daughter -10/19: Repeat CT brain did not show any acute intracranial hemorrhage or suspicious mass effect, inflammatory sinus disease. -10/19: CT facial bones showed extensive sinus disease with near complete opacification of the right maxillary sinus and dependently layering fluid in the bilateral sphenoid sinuses. Dental and periodontal disease with periapical lucency surrounding the posterior most remaining right maxillary molar His ammonia level was normal (3) Acute kidney injury: Code(s): N17.9 - Acute kidney failure, unspecified Status: Acute Assessment and Plan: Patient presented with Acute kidney injury which improved with IV fluids Now the creatinine has again went up I suspect this is due to hypovolemia and sepsis Replace Michelle CT scan pending Patient is getting IV fluids and will be continued on maintenance IV fluids for now Although his intake and output show that he is significantly volume overloaded. He has had FMS with diarrhea which makes I&Os inaccurate. He does have minimal edema on exam Nephrology following Monitor urine output electrolytes and creatinine CK level is normal Earlier in the course CT scan of the abdomen and pelvis did not show any hydronephrosis or stones and renal ultrasound also showed No hydronephrosis or renal calculi, no apparent, findings to suggest the presence of medical renal disease. Simple cyst within the right kidney (4) Anemia: Code(s): D64.9 - Anemia, unspecified Status: Acute Assessment and Plan: Patient was anemic on presentation and received 2 units of PRBC. He was evaluate by Hematology Stool culture was negative and vitamin B12 were normal Folic acid was low and was supplement -iron panel was unremarkable Monitor and transfuse if needed (5) Thrombocytopenia: Code(s): D69.6 - Thrombocytopenia, unspecified Status: Acute Assessment and Plan: Thrombocytopenia has improved High platelet count at this time suggest hemoconcentration (6) Hyperkalemia: Code(s): E87.5 - Hyperkalemia Status: Acute Assessment and Plan: Hyperkalemia with ALEJANDRO Calcium gluconate, insulin and D50, bicarb Lokelma IV fluid bolus Recheck BMP at noon (7) C. difficile diarrhea: Code(s): A04.72 - Enterocolitis due to Clostridium difficile, not specified as recurrent Status: Acute Assessment and Plan: Continue Dificid and IV Flagyl Check CT abdomen pelvis Plan DVT prophylaxis: SCDs, Lovenox Stress ulcer prophylaxis: Protonix IV q.12 hours Nutrition: G-tube placed, and p.o. Code Status: Full code Total Critical Care Time - 50 minutes Due to a high probability of clinically significant, life threatening deterioration, the patient required my highest level of preparedness to intervene emergently and I personally spent this critical care time directly and personally managing the patient. This critical care time included obtaining a history; examining the patient; pulse oximetry; ordering and review of studies; arranging urgent treatment with development of a management plan; evaluation of patient's response to treatment; frequent reassessment; and discussions with other providers. It was exclusive of separately billable procedures and treating other patients and teaching time. Please see Assessment and Plan section and the rest of the note for further information on patient assessment and treatment Subjective Date/time seen: 11/08/24 08:42 Patient was initially admitted on septic shock, altered mental status, acute kidney injury and rhabdomyolysis. CT scan was unremarkable for any acute change. He was also found to be anemic. He was given PRBC transfusion, IV fluids, antibiotics. MRI could not be done as patient has history of abdominal exposure. Patient was seen by Nephrology and Neurology and later Gastroenterology. Patient was also seen by Hematology for anemia and thrombocytopenia Patient for failed his swallow study multiple times. Patient also have C diff associated diarrhea and was treated with oral vancomycin which was being administered through NG tube Over the hospital course his creatinine improved but his metabolic encephalopathy did not improve. He had EGD for PEG tube placement which was unsuccessful. General surgery consulted and yesterday patient had digit ostomy feeding tube placement in the operating room. Patient returned back to his room around 7:00 p.m. Early this morning patient had a rapid response. He had elevated lactic acid level. On physician exam patient was obtunded and unable to protect his airway and had upper airway secretions. He was only on 3 L nasal cannula. He was intubated. Lab work showed hyperkalemia and worsening creatinine. He was given 500 mL bolus When I evaluated the patient patient was already intubated sedated and history was obtained from chart review and physician sign-out. Review of Systems Review of Systems: ROS unobtainable: Yes unobtainable due to endotracheal tube, unobtainable due to medical condition and unobtainable due to mental status Exam Narrative: General: Pt is sedated, intubated and on mechanical ventilation Lungs/Chest: Trachea central Coarse BS B/L, few crackles on the left base Cardiac: RRR. Normal S1 S2. No murmurs Circulation: Pedal pulses are intact and symmetrical. Abdomen: Significantly Decreased bowel sounds. Midline incision is under dressing Soft. NT. ND. Extremities: Patient has some edema bilaterally in lower extremity : Michelle in place Neurologic: Unable to assess due to sedation and chemical paralysis for intubation. Right pupil is bigger than left pupil but both are reactive to light Objective Data Vital Signs Vital Signs: Vital Signs - 24 hr 11/07/24 09:10 11/07/24 16:57 11/07/24 17:10 Temperature 36.3 C L Pulse Rate 84 89 Respiratory Rate 18 22 H 20 Blood Pressure 112/82 112/83 Pulse Oximetry 100 100 100 Oxygen Delivery Room Air Simple Face Mask Simple Face Mask Oxygen Flow Rate 6 6 Fraction of Inspired Oxygen 11/07/24 17:25 11/07/24 17:40 11/07/24 17:55 Temperature Pulse Rate 91 97 100 Respiratory Rate 18 20 18 Blood Pressure 110/79 109/79 126/83 Pulse Oximetry 100 100 99 Oxygen Delivery Room Air Room Air Room Air Oxygen Flow Rate Fraction of Inspired Oxygen 11/07/24 18:00 11/07/24 18:15 11/07/24 18:15 Temperature 36.5 C 36.5 C Pulse Rate 83 83 83 Respiratory Rate 16 16 16 Blood Pressure 103/62 99/61 L Pulse Oximetry 96 96 96 Oxygen Delivery Nasal Cannula Oxygen Flow Rate 3 Fraction of Inspired Oxygen 11/07/24 20:00 11/07/24 21:36 11/07/24 21:55 Temperature Pulse Rate Respiratory Rate Blood Pressure 116/62 Pulse Oximetry 93 93 Oxygen Delivery Nasal Cannula Oxygen Flow Rate 3 3 Fraction of Inspired Oxygen 36 11/07/24 22:24 11/07/24 23:12 11/08/24 03:51 Temperature 36.3 C L 36.5 C 36.7 C Pulse Rate 71 110 H Respiratory Rate 20 16 Blood Pressure 93/64 L 96/62 L Pulse Oximetry 90 100 Oxygen Delivery Oxygen Flow Rate Fraction of Inspired Oxygen 11/08/24 06:43 11/08/24 07:15 11/08/24 07:53 Temperature Pulse Rate 57 L 95 95 Respiratory Rate 25 H 30 H Blood Pressure 88/40 L 72/53 L Pulse Oximetry 100 Oxygen Delivery Nasal Cannula Oxygen Flow Rate 3 Fraction of Inspired Oxygen 11/08/24 08:24 11/08/24 08:35 Temperature Pulse Rate 93 92 Respiratory Rate 25 H 25 H Blood Pressure Pulse Oximetry Oxygen Delivery Oxygen Flow Rate Fraction of Inspired Oxygen Intake/Output Intake/Output: Intake & Output 11/05/24 11/06/24 11/07/24 11/08/24 23:59 23:59 23:59 23:59 Intake Total 50 600 1141.7 Output Total 1800 2450 1750 Balance -1750 -2450 -1150 1141.7 Meds/Results Medications: Active Medications Generic Name Dose Route Start Last Admin Trade Name Freq PRN Reason Stop Dose Admin Aspirin 81 mg 11/04/24 08:00 11/08/24 08:21 Aspirin 81 Mg Chewable Tablet FEED TUBE 81 mg DAILY@0800 JHONY Administration Dextrose 12.5 gm 10/17/24 21:26 10/30/24 05:55 Dextrose 50% 25 Gm/50 Ml Syringe IV PUSH 12.5 gm PRN PRN Administration Hypoglycemia Protocol Dextrose 50 gm 11/08/24 08:41 Dextrose 50% 25 Gm/50 Ml Syringe IV PUSH 11/08/24 08:42 ONCE STA Enoxaparin Sodium 40 mg 11/02/24 09:00 11/08/24 08:20 Enoxaparin 40 Mg/0.4 Ml Syringe SUB-Q 40 mg DAILY JHONY Administration Fidaxomicin 200 mg 11/08/24 09:00 Fidaxomicin 200 Mg Tablet FEED TUBE 11/18/24 08:59 Q12HR JHONY Folic Acid 1 mg 10/24/24 09:00 11/08/24 08:21 Folic Acid 1 Mg Tablet FEED TUBE 1 mg QAM JHONY Administration Glucagon 1 mg 10/17/24 21:26 Glucagon For Inj 1 Mg Vial IM PRN PRN Hypoglycemia Protocol Glucose 15 gm 10/17/24 21:26 Glucose Oral Gel 15 Gm Of Glucse In 37.5 Gm Tube PO PRN PRN Hypoglycemia Protocol Dextrose 1,000 mls @ 100 mls/hr 10/17/24 21:26 Dextrose 5% 1,000 Ml IVPB PRN PRN Hypoglycemia Protocol Albumin Human 100 mls @ 60 mls/hr 11/08/24 08:00 11/08/24 08:20 Albutein IVPB 11/09/24 03:39 60 mls/hr Q6H JHONY Administration Midazolam HCl 100 mg in 100 mls @ 1 mls/hr 11/08/24 07:35 11/08/24 08:35 Versed 100 Mg/Ns 100 Ml IV CONT 5 mg/hr .Q72H JHONY 5 mls/hr Titration Protocol 1 MG/HR Fentanyl Citrate 2,500 mcg in 250 mls @ 2.5 mls/hr 11/08/24 07:45 11/08/24 07:54 Fentanyl 2,500 Mcg/Ns 250 Ml IV CONT Not Given .Q72H JHONY Protocol 25 MCG/HR Aztreonam 1 gm in 50 mls @ 100 mls/hr 11/08/24 08:00 11/08/24 08:19 Azactam 1 Gm/Ns 50 Ml IVPB 100 mls/hr Q8HR JHONY Administration Metronidazole 500 mg in 100 mls @ 100 mls/hr 11/08/24 10:00 Flagyl 500 Mg/Iso Soln 100 Ml IVPB Q8H JHONY Norepinephrine Bitartrate 8 mg in 250 mls @ 9.375 mls/hr 11/08/24 08:05 11/08/24 07:15 Levophed 8 Mg/D5w 250 Ml IV CONT 5 mcg/min .Q24H JHONY 9.38 mls/hr Administration Protocol 5 MCG/MIN Calcium Gluconate 1,000 mg in 50 mls @ 100 mls/hr 11/08/24 08:41 Calcium Gluc 1,000 Mg/Ns 50 Ml IVPB 11/08/24 09:10 ONCE STA Insulin Aspart 3 - 6 units 11/08/24 12:00 Insulin Aspart (*Bkc) 100 Units/Ml SUB-Q Q6HR JHONY Protocol Insulin Human Regular 10 units 11/08/24 08:41 Insulin Human Regular (*Bkc) 100 Units/Ml IV PUSH 11/08/24 08:42 ONCE ONE Midazolam HCl 2 mg 11/08/24 07:35 Midazolam Hcl (*Crx) 2 Mg/2 Ml Vial IV PUSH Q5M PRN ventilator asynchrony Multi-Ingred Cream/Lotion/Oil/Oint 1 applic 11/08/24 09:00 11/08/24 08:19 Mineral Oil/White Petrolatum Ointment EACH EYE 1 applic Q12HR JHONY Administration Pantoprazole Sodium 40 mg 10/18/24 21:00 11/08/24 08:22 Pantoprazole Sodium Iv 40 Mg Vial IV PUSH 40 mg Q12HR JHONY Administration Rosuvastatin Calcium 10 mg 11/04/24 09:00 11/07/24 09:08 Rosuvastatin 10 Mg Tablet FEED TUBE Not Given DAILY JHONY Saccharomyces Boulardii 250 mg 11/05/24 09:00 11/08/24 08:21 Saccharomyces Boulardii 250 Mg Capsule PO 250 mg DAILY JHONY Administration Sodium Bicarbonate 650 mg 11/08/24 09:00 11/08/24 08:21 Sodium Bicarbonate Tab 650 Mg Tablet FEED TUBE 650 mg BID JHONY Administration Sodium Bicarbonate 50 meq 11/08/24 08:41 Sodium Bicarbonate 8.4% 50 Meq/50 Ml Syringe IV PUSH 11/08/24 08:42 ONCE STA Sodium Chloride 10 ml 11/08/24 14:00 Central Line Flush IV PUSH Q8HR JHONY Sodium Chloride 10 ml 11/08/24 08:15 Central Line Flush IV PUSH PRN PRN with TPN bag changes Sodium Chloride 20 ml 11/08/24 08:15 Central Line Flush IV PUSH PRN PRN after blood draws Sodium Zirconium Cyclosilicate 10 gm 11/08/24 07:50 11/08/24 08:20 Sodium Zirconium Cyclosilicate 10 Gm Powd.Pack FEED TUBE 10 gm BID@1000,1800 JHONY Administration Thiamine HCl 100 mg 10/24/24 09:00 11/08/24 08:21 Thiamine Hcl 100 Mg Tablet FEED TUBE 100 mg QAM JHONY Administration Radiology Results: ITS Impressions Chest/Abdomen/Pelvis CT 10/17/24 10:46 IMPRESSION: No hollow or solid organ injury. No acute fractures. Head CT 10/19/24 09:19 Impression: No acute intracranial hemorrhage or suspicious mass effect. Inflammatory sinus disease. Face CT 10/19/24 09:39 IMPRESSION: 1. Extensive sinus disease with near complete opacification of the right maxillary sinus and dependently layering fluid in the bilateral sphenoid sinuses. Correlate clinically for acute sinusitis. 2. Dental and periodontal disease with periapical lucency surrounding the posterior most remaining right maxillary molar. Renal Ultrasound 10/19/24 09:48 IMPRESSION: No hydronephrosis or renal calculi. No parenchymal findings to suggest the presence of medical renal disease. Simple cysts within the right kidney, for which no further follow-up is needed. Brain MRI 10/24/24 14:22 IMPRESSION: 1. Age-related changes the brain. No acute intracranial process. 2. Prominent sinus disease with fluid nearly filling the right maxillary sinus and layering dependently in the bilateral sphenoid sinuses. Correlate clinically for acute sinusitis. Lumbar Puncture Fluoroscopy 10/31/24 17:34 IMPRESSION: 1. Successful fluoro-guided lumbar puncture with mildly elevated opening pressure of 23 cm water. Upper GI Series 11/02/24 12:44 IMPRESSION: 1. Partial distal gastrectomy with gastroduodenal anastomosis. Nasogastric tube tip extends beyond the anastomosis with proximal side-port in the remaining body of the stomach. Modified Barium Swallow 11/06/24 10:05 IMPRESSION: Nondiagnostic study as all contents either leaked or were actively expelled from the mouth. No swallows were able to be evaluated. Please correlate with speech pathologist findings and specific feeding recommendations. Abdomen X-Ray 11/08/24 07:55 Impression: NG tube in satisfactory position. Probable small bowel obstruction. Chest X-Ray 11/08/24 07:55 Impression: Tubes in satisfactory position, as above. Clear lungs. Labs Labs: Laboratory Results - last 24 hr 10/31/24 11/07/24 11/07/24 16:46 12:25 17:18 WBC RBC Hgb Hct MCV MCH MCHC RDW Plt Count MPV Immature Gran % (Auto) Neut % (Auto) Lymph % (Auto) [place] % (Auto) Eos % (Auto) Baso % (Auto) Lymph # (Auto) [place] # (Auto) Eos # (Auto) Baso # (Auto) Abs Immat Gran (auto) Absolute Neuts (auto) Absolute Nucleated RBC Nucleated RBC % Puncture Site ABG pH ABG pCO2 ABG pO2 ABG PO2/FiO2 Ratio ABG HCO3 ABG O2 Saturation ABG O2 Content ABG Base Excess A-a Gradient Oxyhemoglobin Total Hemoglobin O2 Delivery Device O2 Liters/Min Minute Volume Vent Rate Vent Mode FiO2 Tidal Volume PEEP Peak Inspir Pressure Pressure Support Sodium Potassium Chloride Carbon Dioxide Anion Gap BUN Creatinine Estim Creat Clear Calc Estimated GFR Glucose POC Capillary Glucose 82 95 Lactic Acid Calcium Magnesium Total Bilirubin AST ALT Alkaline Phosphatase Total Creatine Kinase Total Protein Albumin Fluid EBV Source Cerebrospinal fluid CSF EBV DNA (PCR) Not detected CSF Herpes I DNA (PCR) Not detected CSF Herpes II DNA (PCR) Not detected HSV (PCR) Source Cerebrospinal fluid 11/07/24 11/07/24 11/08/24 21:42 23:34 04:46 WBC 19.7 H RBC 2.44 L Hgb 8.4 L 7.2 L Hct 26.4 L 22.2 L MCV 91.0 MCH 29.5 MCHC 32.4 RDW 21.5 H Plt Count 389 H D MPV 11.5 H Immature Gran % (Auto) 1.2 H Neut % (Auto) 75.2 H Lymph % (Auto) 12.9 L [place] % (Auto) 10.2 H Eos % (Auto) 0.2 Baso % (Auto) 0.3 Lymph # (Auto) 2.54 [place] # (Auto) 2.0 H Eos # (Auto) 0.0 Baso # (Auto) 0.1 Abs Immat Gran (auto) 0.24 H Absolute Neuts (auto) 14.8 H Absolute Nucleated RBC 0.000 Nucleated RBC % 0.0 Puncture Site ABG pH ABG pCO2 ABG pO2 ABG PO2/FiO2 Ratio ABG HCO3 ABG O2 Saturation ABG O2 Content ABG Base Excess A-a Gradient Oxyhemoglobin Total Hemoglobin O2 Delivery Device O2 Liters/Min Minute Volume Vent Rate Vent Mode FiO2 Tidal Volume PEEP Peak Inspir Pressure Pressure Support Sodium 130 L Potassium 5.6 H Chloride 101 Carbon Dioxide 16 L Anion Gap 13 H BUN 25 H Creatinine 1.64 H Estim Creat Clear Calc 37 Estimated GFR 42 L Glucose 93 POC Capillary Glucose 82 Lactic Acid 5.3 H* Calcium 8.4 Magnesium 2.1 Total Bilirubin 1.3 AST 60 H ALT 30 Alkaline Phosphatase 140 H Total Creatine Kinase Total Protein 6.5 Albumin 2.7 L Fluid EBV Source CSF EBV DNA (PCR) CSF Herpes I DNA (PCR) CSF Herpes II DNA (PCR) HSV (PCR) Source 11/08/24 11/08/24 11/08/24 05:33 07:55 08:06 WBC RBC Hgb Hct MCV MCH MCHC RDW Plt Count MPV Immature Gran % (Auto) Neut % (Auto) Lymph % (Auto) [place] % (Auto) Eos % (Auto) Baso % (Auto) Lymph # (Auto) [place] # (Auto) Eos # (Auto) Baso # (Auto) Abs Immat Gran (auto) Absolute Neuts (auto) Absolute Nucleated RBC Nucleated RBC % Puncture Site Right radial ABG pH 7.432 ABG pCO2 26.0 L ABG pO2 93.3 ABG PO2/FiO2 Ratio 1.87 ABG HCO3 16.9 L ABG O2 Saturation 97.5 ABG O2 Content 10.6 L ABG Base Excess -6.5 A-a Gradient 234.0 Oxyhemoglobin 96.4 Total Hemoglobin 7.7 L* O2 Delivery Device Ventilator O2 Liters/Min Not Reportable Minute Volume Not Reportable Vent Rate 20 Vent Mode Cmv FiO2 50 Tidal Volume 400 PEEP 5 Peak Inspir Pressure Not Reportable Pressure Support Not Reportable Sodium 131 L Potassium 6.4 H* Chloride 101 Carbon Dioxide 17 L Anion Gap 13 H BUN 30 H Creatinine 1.92 H Estim Creat Clear Calc 31 Estimated GFR 35 L Glucose 110 POC Capillary Glucose 93 Lactic Acid 3.3 H Calcium 8.4 Magnesium Total Bilirubin AST ALT Alkaline Phosphatase Total Creatine Kinase 151 Total Protein Albumin Fluid EBV Source CSF EBV DNA (PCR) CSF Herpes I DNA (PCR) CSF Herpes II DNA (PCR) HSV (PCR) Source
[2024-11-08 08:43] LABS: Partial Thromboplastin Time 37.5 Seconds (22.3-36.8)
[2024-11-08 08:55] LABS: Procalcitonin 8.2 ng/mL
[2024-11-08 09:02] LABS: Iron 69 ug/dL (49-181)
[2024-11-08 09:12] LABS: Percent Iron Saturation 33 % (20-50)
[2024-11-08 10:23] LABS: Ferritin > 2000.00 ng/mL (11.1-264)
[2024-11-08] MEDS: DEXTROSE 50% 25 GM/50 ML SYRINGE IV PUSH (10:35)
[2024-11-08] MEDS: metroNIDAZOLE 500 MG/ISO 100ML 500 MG/100 ML BAG 100 MG IVPB ×2 (10:37→18:27)
--- NOTE | 2024-11-08 10:42 | PCFNICU ---
ICU Rounding Note: Pt current nutrition is NPO. Nutrition recommendation: Recommend holding off on tube feeding today because of hypotension/decreased splanchnic perfusion Last recorded weight is 71.4 kg. Bowel Motility: Ostomy placed yesterday. Liquid stool draining Labs Reviewed: Hgb 7.2, Hct 22.2, Alb 2.7, Na 131, K+ 6.4, BUN 30, Cre 1.92 Meds Noted: Fentanyl, versed, levophed Skin: WNL Additional Notes: Pt went into shock post surgical placement of PEG and ostomy, and was intubated this morning. When tube feeding is indicated, start Vital AF 1.2 @ 20 ml/h and advance to goal 50 ml/h when more hemodynamically stable. Following daily in ICU rounds. will monitor weight, labs, skin, diet orders, meds every 3 days. .
[2024-11-08] MEDS: INSULIN HUMAN REGULAR (*BKC) 100 UNITS/ML 10 UNITS IV PUSH (10:43)
[2024-11-08] MEDS: SODIUM ZIRCONIUM CYCLOSILICATE 10 GM POWD.PACK (11:11)
[2024-11-08] MEDS: CALCIUM GLUC 1,000 MG/NS 50 ML 1,000 MG/50 ML BAG 100 MG IVPB (11:40)
[2024-11-08] MEDS: MEROPENEM 1 GM/NS 100 ML 1 GM/100 ML BAG IVPB ×2 (12:07→21:53)
[2024-11-08] MEDS: INSULIN ASPART (*BKC) 100 UNITS/ML SUB-Q (12:07)
--- NOTE | 2024-11-08 12:30 | P.PNGS_ITS ---
Progress Note: A&P Assessment and Plan (1) Unable to eat: Code(s): R63.8 - Other symptoms and signs concerning food and fluid intake Status: Acute Assessment and Plan: * Postop day 1 following placement of jejunostomy tube. Patient unresponsive and hypotensive this morning. He is now in the ICU and intubated. Unlikely that there is any issue with the placement of his J-tube, but will continue to monitor and hold off on feedings for now. CT scan showed possible ileus and his stomach appears distended. Will put his NG tube to wall suction for today. (2) Metabolic encephalopathy: Code(s): G93.41 - Metabolic encephalopathy Status: Acute (3) Shock: Code(s): R57.9 - Shock, unspecified Status: Acute Assessment and Plan: * Patient initially presented with septic shock that resolved and developed new hypotension this morning. He was unresponsive and intubated. Now in the ICU and is on vasopressors. Continue broad-spectrum IV antibiotics. Source could be pneumonia vs UTI vs multifactorial. CT scan today also showed possible gallbladder distention with cholelithiasis. Prior to surgery, he had no complaints of abdominal pain or tenderness on exam that would suggest cholecystitis. Doubt his gallbladder is causing his acute issues. Will continue to follow. Continue critical care management. (4) History of [place] I operation: Code(s): Z98.890 - Other specified postprocedural states Status: Chronic Plan I have discussed the patient's case and plan of care with Dr. Ortiz. Subjective Subjective Date/Time Seen: 11/08/24 12:30 Post Op day: 1 (Placement of jejunostomy feeding tube) Interval history: Patient seen in the ICU and was intubated earlier this morning after a rapid response was called. He was found unresponsive. He also had hypotension despite fluid bolus and was started on a Levophed infusion. CT head/chest/abdomen/pelvis done today. Exam 2 Const: General: ill appearing Orientation/consciousness: patient obtunded (sedated and intubated) Chest: Chest/axillae images: 1. Right lateral chest wound that appears chronic with some epithelialization and scarring at the edges of the wound circumferentially, and the center of the wound there is a 4 x 2 cm area of yellow and cabrera necrotic tissue without fluctuance or purulent drainage, it appears fairly superficial. No odor. No surrounding erythema or warmth. GI: Inspection: other (mildly distended) GI Palp: Yes Soft to palpation, No Tenderness to palpation present (GI) (no grimacing, but exam limited as he is sedated) and No Guarding due to palpation present (GI) Auscultation: H ypoactive bowel sounds present Other: Jejunostomy tube clamped in the LLQ Incision covered by a dry, clean dressing NG tube in place and put to suction during my exam with copious amount of bilious appearing output coming from the NG tube Objective Data Vital Signs Vital Signs: Vital Signs - 24 hr 11/07/24 16:57 11/07/24 17:10 11/07/24 17:25 Temperature 97.4 F L Pulse Rate 84 89 91 Respiratory Rate 22 H 20 18 Blood Pressure 112/82 112/83 110/79 Pulse Oximetry 100 100 100 Oxygen Delivery Simple Face Mask Simple Face Mask Room Air Oxygen Flow Rate 6 6 Fraction of Inspired Oxygen 11/07/24 17:40 11/07/24 17:55 11/07/24 18:00 Temperature 97.7 F Pulse Rate 97 100 83 Respiratory Rate 20 18 16 Blood Pressure 109/79 126/83 103/62 Pulse Oximetry 100 99 96 Oxygen Delivery Room Air Room Air Oxygen Flow Rate Fraction of Inspired Oxygen 11/07/24 18:15 11/07/24 18:15 11/07/24 20:00 Temperature 97.7 F Pulse Rate 83 83 Respiratory Rate 16 16 Blood Pressure 99/61 L Pulse Oximetry 96 96 93 Oxygen Delivery Nasal Cannula Nasal Cannula Oxygen Flow Rate 3 3 Fraction of Inspired Oxygen 11/07/24 21:36 11/07/24 21:55 11/07/24 22:24 Temperature 97.4 F L Pulse Rate Respiratory Rate Blood Pressure 116/62 Pulse Oximetry 93 Oxygen Delivery Oxygen Flow Rate 3 Fraction of Inspired Oxygen 36 11/07/24 23:12 11/08/24 03:51 11/08/24 06:43 Temperature 97.7 F 98.1 F Pulse Rate 71 110 H 57 L Respiratory Rate 20 16 25 H Blood Pressure 93/64 L 96/62 L 88/40 L Pulse Oximetry 90 100 100 Oxygen Delivery Nasal Cannula Oxygen Flow Rate 3 Fraction of Inspired Oxygen 11/08/24 07:15 11/08/24 07:53 11/08/24 08:24 Temperature Pulse Rate 95 95 93 Respiratory Rate 30 H 25 H Blood Pressure 72/53 L Pulse Oximetry Oxygen Delivery Oxygen Flow Rate Fraction of Inspired Oxygen 11/08/24 08:35 11/08/24 10:15 11/08/24 11:00 Temperature Pulse Rate 92 94 93 Respiratory Rate 25 H 21 H Blood Pressure 70/49 L Pulse Oximetry Oxygen Delivery Oxygen Flow Rate Fraction of Inspired Oxygen 11/08/24 11:40 Temperature Pulse Rate 86 Respiratory Rate Blood Pressure 115/70 Pulse Oximetry Oxygen Delivery Oxygen Flow Rate Fraction of Inspired Oxygen Intake/Output Intake/Output: Intake & Output 11/05/24 11/06/24 11/07/24 11/08/24 23:59 23:59 23:59 23:59 Intake Total 50 600 1300.5 Output Total 1800 2450 1750 Balance -1750 -2450 -1150 1300.5 Meds/Results Medications: Active Medications Generic Name Dose Route Start Last Admin Trade Name Freq PRN Reason Stop Dose Admin Aspirin 81 mg 11/04/24 08:00 11/08/24 08:21 Aspirin 81 Mg Chewable Tablet FEED TUBE 81 mg DAILY@0800 JHONY Administration Dextrose 12.5 gm 10/17/24 21:26 10/30/24 05:55 Dextrose 50% 25 Gm/50 Ml Syringe IV PUSH 12.5 gm PRN PRN Administration Hypoglycemia Protocol Enoxaparin Sodium 40 mg 11/02/24 09:00 11/08/24 08:20 Enoxaparin 40 Mg/0.4 Ml Syringe SUB-Q 40 mg DAILY JHONY Administration Fidaxomicin 200 mg 11/08/24 09:00 11/08/24 08:00 Fidaxomicin 200 Mg Tablet FEED TUBE 11/18/24 08:59 Not Given Q12HR JHONY Folic Acid 1 mg 10/24/24 09:00 11/08/24 08:21 Folic Acid 1 Mg Tablet FEED TUBE 1 mg QAM JHONY Administration Glucagon 1 mg 10/17/24 21:26 Glucagon For Inj 1 Mg Vial IM PRN PRN Hypoglycemia Protocol Glucose 15 gm 10/17/24 21:26 Glucose Oral Gel 15 Gm Of Glucse In 37.5 Gm Tube PO PRN PRN Hypoglycemia Protocol Dextrose 1,000 mls @ 100 mls/hr 10/17/24 21:26 Dextrose 5% 1,000 Ml IVPB PRN PRN Hypoglycemia Protocol Albumin Human 100 mls @ 60 mls/hr 11/08/24 08:00 11/08/24 10:01 Albutein IVPB 11/09/24 03:39 Infused Q6H JHONY Infusion Midazolam HCl 100 mg in 100 mls @ 6 mls/hr 11/08/24 07:35 11/08/24 11:00 Versed 100 Mg/Ns 100 Ml IV CONT 6 mg/hr .[id number] JHONY 6 mls/hr Titration Protocol 6 MG/HR Fentanyl Citrate 2,500 mcg in 250 mls @ 2.5 mls/hr 11/08/24 07:45 11/08/24 07:54 Fentanyl 2,500 Mcg/Ns 250 Ml IV CONT Not Given .Q72H JHONY Protocol 25 MCG/HR Metronidazole 500 mg in 100 mls @ 100 mls/hr 11/08/24 10:00 11/08/24 10:37 Flagyl 500 Mg/Iso Soln 100 Ml IVPB 100 mls/hr Q8H JHONY Administration Norepinephrine Bitartrate 8 mg in 250 mls @ 11.25 mls/hr 11/08/24 08:05 11/08/24 11:40 Levophed 8 Mg/D5w 250 Ml IV CONT 6 mcg/min .[id number] JHONY 11.25 mls/hr Titration Protocol 6 MCG/MIN Meropenem 1 gm in 100 mls @ 200 mls/hr 11/08/24 11:30 11/08/24 12:07 IVPB 200 mls/hr Q12HR JHONY Administration Insulin Aspart 3 - 6 units 11/08/24 12:00 11/08/24 12:07 Insulin Aspart (*Bkc) 100 Units/Ml SUB-Q 3 units Q6HR JHONY Administration Protocol Midazolam HCl 2 mg 11/08/24 07:35 Midazolam Hcl (*Crx) 2 Mg/2 Ml Vial IV PUSH Q5M PRN ventilator asynchrony Multi-Ingred Cream/Lotion/Oil/Oint 1 applic 11/08/24 09:00 11/08/24 08:19 Mineral Oil/White Petrolatum Ointment EACH EYE 1 applic Q12HR JHONY Administration Pantoprazole Sodium 40 mg 10/18/24 21:00 11/08/24 08:22 Pantoprazole Sodium Iv 40 Mg Vial IV PUSH 40 mg Q12HR JHONY Administration Rosuvastatin Calcium 10 mg 11/04/24 09:00 11/07/24 09:08 Rosuvastatin 10 Mg Tablet FEED TUBE Not Given DAILY JHONY Saccharomyces Boulardii 250 mg 11/05/24 09:00 11/08/24 08:21 Saccharomyces Boulardii 250 Mg Capsule PO 250 mg DAILY JHONY Administration Sodium Bicarbonate 650 mg 11/08/24 09:00 11/08/24 08:21 Sodium Bicarbonate Tab 650 Mg Tablet FEED TUBE 650 mg BID JHONY Administration Sodium Chloride 10 ml 11/08/24 14:00 Central Line Flush IV PUSH Q8HR JHONY Sodium Chloride 10 ml 11/08/24 08:15 Central Line Flush IV PUSH PRN PRN with TPN bag changes Sodium Chloride 20 ml 11/08/24 08:15 Central Line Flush IV PUSH PRN PRN after blood draws Sodium Zirconium Cyclosilicate 10 gm 11/08/24 07:50 11/08/24 10:46 Sodium Zirconium Cyclosilicate 10 Gm Powd.Pack FEED TUBE 10 gm BID@1000,1800 JHONY Administration Thiamine HCl 100 mg 10/24/24 09:00 11/08/24 08:21 Thiamine Hcl 100 Mg Tablet FEED TUBE 100 mg QAM JHONY Administration Radiology Results: ITS Impressions Face CT 10/19/24 09:39 IMPRESSION: 1. Extensive sinus disease with near complete opacification of the right maxillary sinus and dependently layering fluid in the bilateral sphenoid sinuses. Correlate clinically for acute sinusitis. 2. Dental and periodontal disease with periapical lucency surrounding the posterior most remaining right maxillary molar. Renal Ultrasound 10/19/24 09:48 IMPRESSION: No hydronephrosis or renal calculi. No parenchymal findings to suggest the presence of medical renal disease. Simple cysts within the right kidney, for which no further follow-up is needed. Brain MRI 10/24/24 14:22 IMPRESSION: 1. Age-related changes the brain. No acute intracranial process. 2. Prominent sinus disease with fluid nearly filling the right maxillary sinus and layering dependently in the bilateral sphenoid sinuses. Correlate clinically for acute sinusitis. Lumbar Puncture Fluoroscopy 10/31/24 17:34 IMPRESSION: 1. Successful fluoro-guided lumbar puncture with mildly elevated opening pressure of 23 cm water. Upper GI Series 11/02/24 12:44 IMPRESSION: 1. Partial distal gastrectomy with gastroduodenal anastomosis. Nasogastric tube tip extends beyond the anastomosis with proximal side-port in the remaining body of the stomach. Modified Barium Swallow 11/06/24 10:05 IMPRESSION: Nondiagnostic study as all contents either leaked or were actively expelled from the mouth. No swallows were able to be evaluated. Please correlate with speech pathologist findings and specific feeding recommendations. Abdomen X-Ray 11/08/24 07:55 Impression: NG tube in satisfactory position. Probable small bowel obstruction. Chest X-Ray 11/08/24 08:54 IMPRESSION: No acute cardiopulmonary pathology. Head CT 11/08/24 09:52 IMPRESSION: No acute intracranial findings. Chest/Abdomen/Pelvis CT 11/08/24 09:59 IMPRESSION: CHEST: 1. Right basilar atelectasis versus pneumonia with pleural effusion. 2. No other acute cardiopulmonary pathology. ABDOMEN/PELVIS: 1. Free air is seen anteriorly around the liver with minimal fluid. 2. Significant ascites in the pelvis. Drainage tube is seen in the left side of the pelvis. 3. Cholelithiasis with thickened wall of the gallbladder. Evaluation for cholecystitis advised. 4. Slightly dilated small bowel loops in the left upper abdomen which may indicate ileus follow-up advised. 5. Right renal cysts. Labs Labs: Laboratory Results - last 24 hr 10/31/24 11/07/24 11/07/24 16:46 17:18 21:42 WBC RBC Hgb 8.4 L Hct 26.4 L MCV MCH MCHC RDW Plt Count MPV Immature Gran % (Auto) Neut % (Auto) Lymph % (Auto) [place] % (Auto) Eos % (Auto) Baso % (Auto) Lymph # (Auto) [place] # (Auto) Eos # (Auto) Baso # (Auto) Abs Immat Gran (auto) Absolute Neuts (auto) Absolute Nucleated RBC Nucleated RBC % PT INR APTT Puncture Site ABG pH ABG pCO2 ABG pO2 ABG PO2/FiO2 Ratio ABG HCO3 ABG O2 Saturation ABG O2 Content ABG Base Excess A-a Gradient Oxyhemoglobin Total Hemoglobin O2 Delivery Device O2 Liters/Min Minute Volume Vent Rate Vent Mode FiO2 Tidal Volume PEEP Peak Inspir Pressure Pressure Support Sodium Potassium Chloride Carbon Dioxide Anion Gap BUN Creatinine Estim Creat Clear Calc Estimated GFR Glucose POC Capillary Glucose 95 Lactic Acid Calcium Magnesium Iron TIBC % Saturation Ferritin Total Bilirubin AST ALT Alkaline Phosphatase Total Creatine Kinase Total Protein Albumin Procalcitonin Fluid EBV Source Cerebrospinal fluid CSF EBV DNA (PCR) Not detected CSF Herpes I DNA (PCR) Not detected CSF Herpes II DNA (PCR) Not detected HSV (PCR) Source Cerebrospinal fluid 11/07/24 11/08/24 11/08/24 23:34 04:46 05:33 WBC 19.7 H RBC 2.44 L Hgb 7.2 L Hct 22.2 L MCV 91.0 MCH 29.5 MCHC 32.4 RDW 21.5 H Plt Count 389 H D MPV 11.5 H Immature Gran % (Auto) 1.2 H Neut % (Auto) 75.2 H Lymph % (Auto) 12.9 L [place] % (Auto) 10.2 H Eos % (Auto) 0.2 Baso % (Auto) 0.3 Lymph # (Auto) 2.54 [place] # (Auto) 2.0 H Eos # (Auto) 0.0 Baso # (Auto) 0.1 Abs Immat Gran (auto) 0.24 H Absolute Neuts (auto) 14.8 H Absolute Nucleated RBC 0.000 Nucleated RBC % 0.0 PT INR APTT Puncture Site ABG pH ABG pCO2 ABG pO2 ABG PO2/FiO2 Ratio ABG HCO3 ABG O2 Saturation ABG O2 Content ABG Base Excess A-a Gradient Oxyhemoglobin Total Hemoglobin O2 Delivery Device O2 Liters/Min Minute Volume Vent Rate Vent Mode FiO2 Tidal Volume PEEP Peak Inspir Pressure Pressure Support Sodium 130 L Potassium 5.6 H Chloride 101 Carbon Dioxide 16 L Anion Gap 13 H BUN 25 H Creatinine 1.64 H Estim Creat Clear Calc 37 Estimated GFR 42 L Glucose 93 POC Capillary Glucose 82 93 Lactic Acid 5.3 H* Calcium 8.4 Magnesium 2.1 Iron TIBC % Saturation Ferritin Total Bilirubin 1.3 AST 60 H ALT 30 Alkaline Phosphatase 140 H Total Creatine Kinase Total Protein 6.5 Albumin 2.7 L Procalcitonin Fluid EBV Source CSF EBV DNA (PCR) CSF Herpes I DNA (PCR) CSF Herpes II DNA (PCR) HSV (PCR) Source 11/08/24 11/08/24 11/08/24 07:55 08:06 08:18 WBC RBC Hgb Hct MCV MCH MCHC RDW Plt Count MPV Immature Gran % (Auto) Neut % (Auto) Lymph % (Auto) [place] % (Auto) Eos % (Auto) Baso % (Auto) Lymph # (Auto) [place] # (Auto) Eos # (Auto) Baso # (Auto) Abs Immat Gran (auto) Absolute Neuts (auto) Absolute Nucleated RBC Nucleated RBC % PT 19.4 H INR 1.6 APTT 37.5 H Puncture Site Right radial ABG pH 7.432 ABG pCO2 26.0 L ABG pO2 93.3 ABG PO2/FiO2 Ratio 1.87 ABG HCO3 16.9 L ABG O2 Saturation 97.5 ABG O2 Content 10.6 L ABG Base Excess -6.5 A-a Gradient 234.0 Oxyhemoglobin 96.4 Total Hemoglobin 7.7 L* O2 Delivery Device Ventilator O2 Liters/Min Not Reportable Minute Volume Not Reportable Vent Rate 20 Vent Mode Cmv FiO2 50 Tidal Volume 400 PEEP 5 Peak Inspir Pressure Not Reportable Pressure Support Not Reportable Sodium 131 L Potassium 6.4 H* Chloride 101 Carbon Dioxide 17 L Anion Gap 13 H BUN 30 H Creatinine 1.92 H Estim Creat Clear Calc 31 Estimated GFR 35 L Glucose 110 POC Capillary Glucose Lactic Acid 3.3 H Calcium 8.4 Magnesium Iron 69 TIBC 211 L % Saturation 33 Ferritin > 2000.00 H Total Bilirubin AST ALT Alkaline Phosphatase Total Creatine Kinase 151 Total Protein Albumin Procalcitonin 8.2 Fluid EBV Source CSF EBV DNA (PCR) CSF Herpes I DNA (PCR) CSF Herpes II DNA (PCR) HSV (PCR) Source 11/08/24 11:55 WBC RBC Hgb Hct MCV MCH MCHC RDW Plt Count MPV Immature Gran % (Auto) Neut % (Auto) Lymph % (Auto) [place] % (Auto) Eos % (Auto) Baso % (Auto) Lymph # (Auto) [place] # (Auto) Eos # (Auto) Baso # (Auto) Abs Immat Gran (auto) Absolute Neuts (auto) Absolute Nucleated RBC Nucleated RBC % PT INR APTT Puncture Site ABG pH ABG pCO2 ABG pO2 ABG PO2/FiO2 Ratio ABG HCO3 ABG O2 Saturation ABG O2 Content ABG Base Excess A-a Gradient Oxyhemoglobin Total Hemoglobin O2 Delivery Device O2 Liters/Min Minute Volume Vent Rate Vent Mode FiO2 Tidal Volume PEEP Peak Inspir Pressure Pressure Support Sodium Potassium Chloride Carbon Dioxide Anion Gap BUN Creatinine Estim Creat Clear Calc Estimated GFR Glucose POC Capillary Glucose 239 H Lactic Acid Calcium Magnesium Iron TIBC % Saturation Ferritin Total Bilirubin AST ALT Alkaline Phosphatase Total Creatine Kinase Total Protein Albumin Procalcitonin Fluid EBV Source CSF EBV DNA (PCR) CSF Herpes I DNA (PCR) CSF Herpes II DNA (PCR) HSV (PCR) Source
[2024-11-08] MEDS: CENTRAL LINE FLUSH 10 ML IV PUSH ×2 (14:20→21:53)
[2024-11-08 15:02] LABS: Add Urine Microscopic? YES; Appearance Urine Cloudy (Clear); Glucose Urine UA Negative (Negative); Leukocyte Esterase Ur Trace LEU/UL (Negative); Need Manual Microscopic Reviewed; Nitrate Urine Negative (Negative); Non Pathogenic Casts >20; Specific Grav Ur 1.017 (1.001-1.035)
[2024-11-08 16:29] LABS: Source Epstein Barr Virus CSF
[2024-11-08] MEDS: FIDAXOMICIN 200 MG TABLET FEED TUBE (20:30)
[2024-11-09] VITALS (74 sets, daily range): BP systolic 85–129; BP diastolic 52–90; PULSE 71–99; RESP 14–22; TEMP 36–37; O2SAT 100
[2024-11-09] MEDS: NOREPINEPHRINE 8 MG/D5W 250 ML 8 MG/250 ML BAG 13.13 MG IV CONT
[2024-11-09] MEDS: metroNIDAZOLE 500 MG/ISO 100ML 500 MG/100 ML BAG 100 MG IVPB (02:30)
[2024-11-09] MEDS: ALBUMIN HUMAN 25% 25 GM/100 ML 100 ML IVPB (02:30)
[2024-11-09 05:35] LABS: Alveolar/Arterial O2 Gradient 66.1 mmHg; Carboxyhemoglobin 1.1 % THb (0-2.0); Fractional Inspired Oxygen 25 %; HCO3 ABG 21.2 mEq/l (22.0-26.0); Methemoglobin ABG 0.5 %THb (0-1.5); Oxygen Content ABG 7.3 %vol (16.0-22.0); Oxygen Saturation ABG 97.6 % (95.0-100.0); PCO2 ABG 24.2 mmHg (35.0-45.0); PO2 ABG 83.4 mmHg (80.0-100.0); PO2 FiO2 Ratio Arterial Blood 3.34 %; Reduced Hemoglobin 4.0 %THb (0-5.0)
[2024-11-09 05:37] LABS: Modified Allen's Test Unable to perform; Site Drawn LEFT RADIAL
[2024-11-09 05:38] LABS: Arterial Blood Gas Tidal Volume 400 ml; Arterial Blood Gas Ventilator rate 20 /MIN
[2024-11-09] MEDS: CENTRAL LINE FLUSH 20 ML IV PUSH (05:57)
[2024-11-09] MEDS: CENTRAL LINE FLUSH 10 ML IV PUSH ×3 (05:57→20:52)
[2024-11-09 06:19] LABS: Immature Granulocyte Percent A 0.5 % (0-0.5); Lymphocytes Absolute Auto 1.61 K/mm3 (0.9-3.2); Mean Corpuscular HGB Conc 31.9 g/dl (32-36); Mean Corpuscular Hemoglobin 28.3 pg (26-34); Mean Corpuscular Volume 88.6 fl (80-100); Nucleated Red Blood Cells Absolute Auto 0.000 K/mm3 (0.0-0.012); Nucleated Red Blood Cells Perc 0.0 % (0.0-0.2); Platelet Count Result 355 k/mm3 (150-375); Red Blood Count 1.84 M/mm3 (4.6-6.20); White Blood Count 14.6 K/mm3 (4.5-10.0)
[2024-11-09 06:22] LABS: Hemoglobin 5.2 g/dL (14.0-18.0)
[2024-11-09 06:23] LABS: Hematocrit 16.3 % (42.0-52.0)
[2024-11-09 07:19] LABS: Alanine Aminotransferase 26 U/L (6-50); Albumin Level 3.1 g/dL (3.5-5.1); Alkaline Phosphatase 100 U/L (38-126); Anion Gap 11 mmol/L (4-12); Aspartate Amino Transferase 58 U/L (17-59); Bilirubin,Total 1.4 mg/dL (0.2-1.3); Blood Urea Nitrogen 34 mg/dL (9-20); Calcium 8.5 mg/dL (8.4-10.2); Carbon Dioxide 21 mmol/L (22-30); Chloride 100 mmol/L (98-107); Estimated CRCL calculation 34 ml/min; Estimated Glomerular Filt Rate 38; Glucose 135 mg/dL (65-110); Magnesium 2.0 mg/dL (1.6-2.3); Potassium 3.7 mmol/L (3.4-5.0); Sodium 132 mmol/L (137-145); Total Protein 6.5 g/dL (6.3-8.2)
[2024-11-09] MEDS: LACTATED RINGERS 1,000 ML 100 ML IV CONT (08:05)
[2024-11-09] MEDS: SACCHAROMYCES BOULARDII 250 MG CAPSULE PO (08:16)
[2024-11-09] MEDS: PANTOPRAZOLE SODIUM IV 40 MG VIAL IV PUSH ×2 (08:16→20:46)
[2024-11-09] MEDS: FIDAXOMICIN 200 MG TABLET FEED TUBE ×2 (08:17→20:41)
[2024-11-09] MEDS: SODIUM BICARBONATE TAB 650 MG TABLET FEED TUBE ×2 (08:17→18:00)
[2024-11-09] MEDS: THIAMINE HCL 100 MG TABLET FEED TUBE (08:17)
[2024-11-09] MEDS: ASPIRIN 81 MG CHEWABLE TABLET FEED TUBE (08:17)
[2024-11-09] MEDS: FOLIC ACID 1 MG TABLET FEED TUBE (08:17)
[2024-11-09] MEDS: MINERAL OIL/WHITE PETROLATUM OINTMENT 1 APPLIC EACH EYE ×2 (08:18→20:50)
[2024-11-09] MEDS: ENOXAPARIN 40 MG/0.4 ML SYRINGE SUB-Q (08:18)
[2024-11-09] MEDS: MEROPENEM 1 GM/NS 100 ML 1 GM/100 ML BAG IVPB ×2 (08:24→20:52)
[2024-11-09 09:51] LABS: Alveolar/Arterial O2 Gradient 59.4 mmHg; Fractional Inspired Oxygen 25 %; HCO3 ABG 23.1 mEq/l (22.0-26.0); Oxygen Content ABG 8.5 %vol (16.0-22.0); Oxygen Saturation ABG 97.4 % (95.0-100.0); PCO2 ABG 28.9 mmHg (35.0-45.0); PO2 ABG 84.5 mmHg (80.0-100.0); PO2 FiO2 Ratio Arterial Blood 3.38 %
[2024-11-09 09:56] LABS: Arterial Blood Gas Ventilator rate 16 /MIN; Site Drawn LEFT RADIAL
[2024-11-09 09:57] LABS: Arterial Blood Gas Tidal Volume 400 ml
--- NOTE | 2024-11-09 11:06 | PCNFU ---
Nutrition Follow-Up Complete: Inadequate Oral Intake as related to AMS as evidenced by NPO. Goal: Meet estimated nutritional needs Patient will continue current goal. Pt current nutrition is Vital AF 12 at 20 ml/hr. Last recorded weight is 75.8 kg up from 66 kg on admit. Bowel Motility: FMS Labs Reviewed: Glu 135, BUN 34, Cr 1.76, Na 132, ,Alb 3.1 Meds Noted: Folic Acid, Thiamine, Levophed, NS Skin: WNL Additional Notes: Patient remains remains on mechanical vent. Spoke with Refund Specialist today regarding nutrition. J tube placed 11/07. Plans to start tube feedings of Vital AF 1.2 at 20 ml/hr. Recommend goal rate at 50 ml//hr at this time, which will provide 1320 kcal/99 gm protein/892 ml water. Flush 30 ml q 4 hours. We will monitor tolerance and recommend rate changes as needed. will monitor weight, labs, skin, diet orders, meds every 3 days.
--- NOTE | 2024-11-09 11:12 | WPDINTPN ---
Progress Note: A&P Assessment and Plan (1) Shock: Code(s): R57.9 - Shock, unspecified Status: Acute Assessment and Plan: Patient initially presented with septic shock which had resolved Now patient has developed new hypotension. Suspect aspiration pneumonia versus UTI as patient has had Michelle for more than 2 weeks., or persistent C diff infection CT chest abdomen pelvis ABDOMEN/PELVIS: 1. Free air is seen anteriorly around the liver with minimal fluid. 2. Significant ascites in the pelvis. Drainage tube is seen in the left side of the pelvis. 3. Cholelithiasis with thickened wall of the gallbladder. Evaluation for cholecystitis advised. 4. Slightly dilated small bowel loops in the left upper abdomen which may indicate ileus follow-up advised. 5. Right renal cysts Pending blood, sputum culture culture Michelle changed and UA sent procalcitonin level 8.2 Continue Dificid and meropenemcist Patient was given IV fluid bolus and now off of IV fluids Continue 25% albumin Continue podiatry Levophed infusion (2) Metabolic encephalopathy: Code(s): G93.41 - Metabolic encephalopathy Status: Acute Assessment and Plan: Patient has had Altered mental status since admission which has been multifactorial Patient was evaluated by Neurology and suspected to have metabolic encephalopathy. -CT brain on presented was negative for intracranial abnormalities. Repeat CT scan 11/08 also unremarkable -MRI cannot be performed as patient was in the [place] and may have sharpnel exposure according to his daughter -10/19: Repeat CT brain did not show any acute intracranial hemorrhage or suspicious mass effect, inflammatory sinus disease. -10/19: CT facial bones showed extensive sinus disease with near complete opacification of the right maxillary sinus and dependently layering fluid in the bilateral sphenoid sinuses. Dental and periodontal disease with periapical lucency surrounding the posterior most remaining right maxillary molar His ammonia level was normal Patient had LP on 10/31 and and only abnormality seen was elevated protein viral studies are pending Sedation holiday (3) Acute kidney injury: Code(s): N17.9 - Acute kidney failure, unspecified Status: Acute Assessment and Plan: Patient presented with Acute kidney injury which improved with IV fluids Now the creatinine has again went up I suspect this is due to hypovolemia and sepsis Fully replaced CT scan reviewed Patient was given IV fluids and creatinine improved to 1.76. I will continue IV fluids for another L Although his intake and output show that he is significantly volume overloaded. He has had FMS with diarrhea which makes I&Os inaccurate. He does have minimal edema on exam Nephrology following Monitor urine output electrolytes and creatinine CK level is normal Earlier in the course CT scan of the abdomen and pelvis did not show any hydronephrosis or stones and renal ultrasound also showed No hydronephrosis or renal calculi, no apparent, findings to suggest the presence of medical renal disease. Simple cyst within the right kidney (4) Anemia: Code(s): D64.9 - Anemia, unspecified Status: Acute Assessment and Plan: Patient was anemic on presentation and received 2 units of PRBC. He was evaluate by Hematology Stool culture was negative and vitamin B12 were normal Folic acid was low and was supplement -iron panel was unremarkable He had EGD on 11/01 which showed gastritis and previous gastric surgery Hemoglobin dropped to 5.2 which could be partially dilutional versus GI loss Transfuse 2 units PRBC Hold Lovenox and use SCDs Continue protonix Monitor hemoglobin (5) Thrombocytopenia: Code(s): D69.6 - Thrombocytopenia, unspecified Status: Acute Assessment and Plan: Thrombocytopenia has improved High platelet count at this time suggest hemoconcentration (6) Hyperkalemia: Code(s): E87.5 - Hyperkalemia Status: Acute Assessment and Plan: Hyperkalemia with ALEJANDRO Calcium gluconate, insulin and D50, bicarb Lokelma IV fluid bolus Now resolved (7) C. difficile diarrhea: Code(s): A04.72 - Enterocolitis due to Clostridium difficile, not specified as recurrent Status: Acute Assessment and Plan: Continue Dificid. Diarrhea improved. DC IV Flagyl CT abdomen pelvis reviewed Plan DVT prophylaxis: SCDs, Lovenox Stress ulcer prophylaxis: Protonix IV q.12 hours Nutrition: J tube placed, tube feeds will be started after surgery confirms contrast study 11/08 I updated patient's daughter and sister at bedside and answered all their questions. Code Status: Full code Total Critical Care Time - 35 minutes Due to a high probability of clinically significant, life threatening deterioration, the patient required my highest level of preparedness to intervene emergently and I personally spent this critical care time directly and personally managing the patient. This critical care time included obtaining a history; examining the patient; pulse oximetry; ordering and review of studies; arranging urgent treatment with development of a management plan; evaluation of patient's response to treatment; frequent reassessment; and discussions with other providers. It was exclusive of separately billable procedures and treating other patients and teaching time. Please see Assessment and Plan section and the rest of the note for further information on patient assessment and treatment Subjective Date/time seen: 11/09/24 Overnight events reviewed. Afebrile Continues to be on mechanical ventilation 25% FiO2 Continues to be on Levophed Continues to be sedated with Versed Improvement in urine output although still on the lower side Review of Systems Review of Systems: ROS unobtainable: Yes unobtainable due to endotracheal tube and unobtainable due to medical condition Exam Narrative: General: Pt is sedated, intubated and on mechanical ventilation Lungs/Chest: Trachea central Coarse BS B/L, few crackles on the left base Cardiac: RRR. Normal S1 S2. No murmurs Circulation: Pedal pulses are intact and symmetrical. Abdomen: Significantly Decreased bowel sounds. Midline incision is under dressing Soft. NT. ND. Extremities: Patient has some edema bilaterally in lower extremity : Michelle in place Neurologic: Unable to assess due to sedation. Right pupil is bigger than left pupil but both are reactive to light Objective Data Vital Signs Vital Signs: Vital Signs - 24 hr 11/08/24 11:40 11/08/24 11:52 11/08/24 12:00 Temperature 35.7 C L Pulse Rate 86 79 85 Respiratory Rate 20 Blood Pressure 115/70 105/66 109/69 Pulse Oximetry 100 Oxygen Delivery Fraction of Inspired Oxygen 11/08/24 12:00 11/08/24 12:00 11/08/24 12:00 Temperature Pulse Rate 85 80 Respiratory Rate 19 Blood Pressure Pulse Oximetry 100 Oxygen Delivery Mechanical Ventilation Fraction of Inspired Oxygen 40 50 11/08/24 12:00 11/08/24 12:20 11/08/24 14:00 Temperature Pulse Rate 88 84 86 Respiratory Rate Blood Pressure 102/76 Pulse Oximetry 100 Oxygen Delivery Mechanical Ventilation Fraction of Inspired Oxygen 40 11/08/24 14:00 11/08/24 15:52 11/08/24 16:00 Temperature 35.6 C L Pulse Rate 98 77 90 Respiratory Rate 20 20 Blood Pressure 111/73 97/64 L Pulse Oximetry 100 Oxygen Delivery Fraction of Inspired Oxygen 11/08/24 16:00 11/08/24 16:00 11/08/24 16:00 Temperature Pulse Rate 96 78 Respiratory Rate 20 Blood Pressure Pulse Oximetry 100 Oxygen Delivery Mechanical Ventilation Fraction of Inspired Oxygen 30 30 11/08/24 16:00 11/08/24 16:08 11/08/24 17:28 Temperature Pulse Rate 77 77 99 Respiratory Rate Blood Pressure 95/76 L Pulse Oximetry 100 Oxygen Delivery Mechanical Ventilation Fraction of Inspired Oxygen 30 11/08/24 17:31 11/08/24 17:51 11/08/24 18:00 Temperature Pulse Rate 102 H 76 82 Respiratory Rate 20 20 Blood Pressure Pulse Oximetry 100 Oxygen Delivery Mechanical Ventilation Fraction of Inspired Oxygen 30 11/08/24 18:00 11/08/24 20:00 11/08/24 20:00 Temperature Pulse Rate 76 84 84 Respiratory Rate 20 Blood Pressure 118/73 114/71 Pulse Oximetry Oxygen Delivery Fraction of Inspired Oxygen 11/08/24 20:00 11/08/24 20:00 11/08/24 20:00 Temperature Pulse Rate 84 86 Respiratory Rate Blood Pressure Pulse Oximetry 100 Oxygen Delivery Mechanical Ventilation Fraction of Inspired Oxygen 25 25 11/08/24 20:00 11/08/24 20:20 11/08/24 22:00 Temperature 36.1 C L Pulse Rate 89 83 81 Respiratory Rate 20 Blood Pressure 114/71 100/61 Pulse Oximetry 100 100 Oxygen Delivery Mechanical Ventilation Fraction of Inspired Oxygen 30 11/08/24 22:00 11/08/24 22:01 11/08/24 22:01 Temperature 36.3 C L Pulse Rate 81 82 82 Respiratory Rate 20 20 20 Blood Pressure 100/61 Pulse Oximetry 100 Oxygen Delivery Fraction of Inspired Oxygen 11/08/24 23:03 11/09/24 00:00 11/09/24 00:00 Temperature Pulse Rate 81 82 82 Respiratory Rate Blood Pressure 107/65 107/65 Pulse Oximetry 100 Oxygen Delivery Mechanical Ventilation Fraction of Inspired Oxygen 25 11/09/24 00:00 11/09/24 00:00 11/09/24 00:00 Temperature Pulse Rate 82 80 Respiratory Rate 20 Blood Pressure Pulse Oximetry 100 Oxygen Delivery Mechanical Ventilation Fraction of Inspired Oxygen 25 11/09/24 00:00 11/09/24 00:00 11/09/24 02:00 Temperature 36.6 C 36.7 C Pulse Rate 83 81 82 Respiratory Rate 20 20 Blood Pressure 107/65 123/69 Pulse Oximetry 100 100 Oxygen Delivery Fraction of Inspired Oxygen 11/09/24 02:00 11/09/24 02:00 11/09/24 02:05 Temperature Pulse Rate 82 82 83 Respiratory Rate 20 Blood Pressure 123/69 Pulse Oximetry 100 Oxygen Delivery Mechanical Ventilation Fraction of Inspired Oxygen 25 11/09/24 04:00 11/09/24 04:00 11/09/24 04:00 Temperature Pulse Rate 81 82 Respiratory Rate Blood Pressure Pulse Oximetry 100 Oxygen Delivery Mechanical Ventilation Fraction of Inspired Oxygen 25 25 11/09/24 04:00 11/09/24 04:00 11/09/24 04:00 Temperature 36.6 C Pulse Rate 82 80 82 Respiratory Rate 20 20 Blood Pressure 101/65 101/65 Pulse Oximetry 100 Oxygen Delivery Fraction of Inspired Oxygen 11/09/24 05:05 11/09/24 06:00 11/09/24 06:00 Temperature Pulse Rate 83 81 81 Respiratory Rate 20 Blood Pressure 91/55 L Pulse Oximetry 100 Oxygen Delivery Mechanical Ventilation Fraction of Inspired Oxygen 25 11/09/24 06:00 11/09/24 07:33 11/09/24 08:00 Temperature 36.6 C Pulse Rate 82 80 90 Respiratory Rate 20 20 16 Blood Pressure 91/55 L 101/65 Pulse Oximetry 100 100 100 Oxygen Delivery Mechanical Ventilation Fraction of Inspired Oxygen 25 11/09/24 08:00 11/09/24 08:04 11/09/24 08:13 Temperature 36.7 C Pulse Rate 75 75 Respiratory Rate 16 16 Blood Pressure 95/52 L Pulse Oximetry 100 Oxygen Delivery Fraction of Inspired Oxygen 25 11/09/24 08:15 11/09/24 08:15 11/09/24 08:29 Temperature 36.7 C Pulse Rate 76 78 82 Respiratory Rate 16 Blood Pressure 85/55 L 114/68 Pulse Oximetry 100 100 Oxygen Delivery Mechanical Ventilation Fraction of Inspired Oxygen 25 11/09/24 09:29 11/09/24 10:00 11/09/24 10:09 Temperature 36.6 C 36.6 C Pulse Rate 82 81 81 Respiratory Rate 16 16 16 Blood Pressure 118/90 126/74 128/68 Pulse Oximetry 100 100 100 Oxygen Delivery Fraction of Inspired Oxygen 11/09/24 10:30 11/09/24 10:31 11/09/24 10:40 Temperature 36.6 C 36.6 C Pulse Rate 82 81 78 Respiratory Rate 16 16 Blood Pressure 127/69 127/69 113/68 Pulse Oximetry 100 100 Oxygen Delivery Fraction of Inspired Oxygen Intake/Output Intake/Output: Intake & Output 11/06/24 11/07/24 11/08/24 11/09/24 23:59 23:59 23:59 23:59 Intake Total 600 2091.6 842.9 Output Total 2450 1750 975 600 Balance -2450 -1150 1116.6 242.9 Meds/Results Medications: Active Medications Generic Name Dose Route Start Last Admin Trade Name Freq PRN Reason Stop Dose Admin Aspirin 81 mg 11/04/24 08:00 11/09/24 08:17 Aspirin 81 Mg Chewable Tablet FEED TUBE 81 mg DAILY@0800 JHONY Administration Dextrose 12.5 gm 10/17/24 21:26 10/30/24 05:55 Dextrose 50% 25 Gm/50 Ml Syringe IV PUSH 12.5 gm PRN PRN Administration Hypoglycemia Protocol Enoxaparin Sodium 40 mg 11/02/24 09:00 11/09/24 08:18 Enoxaparin 40 Mg/0.4 Ml Syringe SUB-Q 40 mg DAILY JHONY Administration Fidaxomicin 200 mg 11/08/24 09:00 11/09/24 08:17 Fidaxomicin 200 Mg Tablet FEED TUBE 11/18/24 08:59 200 mg Q12HR JHONY Administration Folic Acid 1 mg 10/24/24 09:00 11/09/24 08:17 Folic Acid 1 Mg Tablet FEED TUBE 1 mg QAM JHONY Administration Glucagon 1 mg 10/17/24 21:26 Glucagon For Inj 1 Mg Vial IM PRN PRN Hypoglycemia Protocol Glucose 15 gm 10/17/24 21:26 Glucose Oral Gel 15 Gm Of Glucse In 37.5 Gm Tube PO PRN PRN Hypoglycemia Protocol Dextrose 1,000 mls @ 100 mls/hr 10/17/24 21:26 Dextrose 5% 1,000 Ml IVPB PRN PRN Hypoglycemia Protocol Midazolam HCl 100 mg in 100 mls @ 0 mls/hr 11/08/24 07:35 11/09/24 08:04 Versed 100 Mg/Ns 100 Ml IV CONT 0 mg/hr .Q0M JHONY 0 mls/hr Titration Protocol 0 MG/HR Norepinephrine Bitartrate 8 mg in 250 mls @ 11.25 mls/hr 11/08/24 08:05 11/09/24 10:30 Levophed 8 Mg/D5w 250 Ml IV CONT 6 mcg/min .[id number] JHONY 11.25 mls/hr Titration Protocol 6 MCG/MIN Meropenem 1 gm in 100 mls @ 200 mls/hr 11/08/24 11:30 11/09/24 08:24 IVPB 200 mls/hr Q12HR JHONY Administration Sodium Chloride 250 mls @ 30 mls/hr 11/09/24 06:47 11/09/24 08:04 Normal Saline Iv IV CONT 11/09/24 15:06 Not Given .Q8H20M STA Lactated Ringer's 1,000 mls @ 100 mls/hr 11/09/24 07:40 11/09/24 08:05 Lr - Lactated Ringers Iv IV CONT 11/09/24 17:39 100 mls/hr .Q10H JHONY Administration Insulin Aspart 3 - 6 units 11/08/24 12:00 11/09/24 05:57 Insulin Aspart (*Bkc) 100 Units/Ml SUB-Q Not Given Q6HR JHONY Protocol Midazolam HCl 2 mg 11/08/24 07:35 Midazolam Hcl (*Crx) 2 Mg/2 Ml Vial IV PUSH Q5M PRN ventilator asynchrony Multi-Ingred Cream/Lotion/Oil/Oint 1 applic 11/08/24 09:00 11/09/24 08:18 Mineral Oil/White Petrolatum Ointment EACH EYE 1 applic Q12HR JHONY Administration Pantoprazole Sodium 40 mg 10/18/24 21:00 11/09/24 08:16 Pantoprazole Sodium Iv 40 Mg Vial IV PUSH 40 mg Q12HR JHONY Administration Rosuvastatin Calcium 10 mg 11/04/24 09:00 11/07/24 09:08 Rosuvastatin 10 Mg Tablet FEED TUBE Not Given DAILY JHONY Saccharomyces Boulardii 250 mg 11/05/24 09:00 11/09/24 08:16 Saccharomyces Boulardii 250 Mg Capsule PO 250 mg DAILY JHONY Administration Sodium Bicarbonate 650 mg 11/08/24 09:00 11/09/24 08:17 Sodium Bicarbonate Tab 650 Mg Tablet FEED TUBE 650 mg BID JHONY Administration Sodium Chloride 10 ml 11/08/24 14:00 11/09/24 05:57 Central Line Flush IV PUSH 10 ml Q8HR JHONY Administration Sodium Chloride 10 ml 11/08/24 08:15 Central Line Flush IV PUSH PRN PRN with TPN bag changes Sodium Chloride 20 ml 11/08/24 08:15 11/09/24 05:57 Central Line Flush IV PUSH 20 ml PRN PRN Administration after blood draws Thiamine HCl 100 mg 10/24/24 09:00 11/09/24 08:17 Thiamine Hcl 100 Mg Tablet FEED TUBE 100 mg QAM JHONY Administration Radiology Results: ITS Impressions Face CT 10/19/24 09:39 IMPRESSION: 1. Extensive sinus disease with near complete opacification of the right maxillary sinus and dependently layering fluid in the bilateral sphenoid sinuses. Correlate clinically for acute sinusitis. 2. Dental and periodontal disease with periapical lucency surrounding the posterior most remaining right maxillary molar. Renal Ultrasound 10/19/24 09:48 IMPRESSION: No hydronephrosis or renal calculi. No parenchymal findings to suggest the presence of medical renal disease. Simple cysts within the right kidney, for which no further follow-up is needed. Brain MRI 10/24/24 14:22 IMPRESSION: 1. Age-related changes the brain. No acute intracranial process. 2. Prominent sinus disease with fluid nearly filling the right maxillary sinus and layering dependently in the bilateral sphenoid sinuses. Correlate clinically for acute sinusitis. Lumbar Puncture Fluoroscopy 10/31/24 17:34 IMPRESSION: 1. Successful fluoro-guided lumbar puncture with mildly elevated opening pressure of 23 cm water. Upper GI Series 11/02/24 12:44 IMPRESSION: 1. Partial distal gastrectomy with gastroduodenal anastomosis. Nasogastric tube tip extends beyond the anastomosis with proximal side-port in the remaining body of the stomach. Modified Barium Swallow 11/06/24 10:05 IMPRESSION: Nondiagnostic study as all contents either leaked or were actively expelled from the mouth. No swallows were able to be evaluated. Please correlate with speech pathologist findings and specific feeding recommendations. Abdomen X-Ray 11/08/24 07:55 Impression: NG tube in satisfactory position. Probable small bowel obstruction. Head CT 11/08/24 09:52 IMPRESSION: No acute intracranial findings. Chest/Abdomen/Pelvis CT 11/08/24 09:59 IMPRESSION: CHEST: 1. Right basilar atelectasis versus pneumonia with pleural effusion. 2. No other acute cardiopulmonary pathology. ABDOMEN/PELVIS: 1. Free air is seen anteriorly around the liver with minimal fluid. 2. Significant ascites in the pelvis. Drainage tube is seen in the left side of the pelvis. 3. Cholelithiasis with thickened wall of the gallbladder. Evaluation for cholecystitis advised. 4. Slightly dilated small bowel loops in the left upper abdomen which may indicate ileus follow-up advised. 5. Right renal cysts. Chest X-Ray 11/09/24 06:16 Impression: Clear lungs. Support tubes, as above. Labs Labs: Laboratory Results - last 24 hr 10/31/24 11/06/24 11/08/24 16:46 18:42 11:55 WBC RBC Hgb Hct MCV MCH MCHC RDW Plt Count MPV Immature Gran % (Auto) Neut % (Auto) Lymph % (Auto) Maury % (Auto) Eos % (Auto) Baso % (Auto) Lymph # (Auto) Maury # (Auto) Eos # (Auto) Baso # (Auto) Abs Immat Gran (auto) Absolute Neuts (auto) Absolute Nucleated RBC Nucleated RBC % Puncture Site ABG pH ABG pCO2 ABG pO2 ABG PO2/FiO2 Ratio ABG HCO3 ABG O2 Saturation ABG O2 Content ABG Base Excess A-a Gradient Oxyhemoglobin Carboxyhemoglobin Methemoglobin Reduced Hemoglobin Total Hemoglobin O2 Delivery Device O2 Liters/Min Minute Volume Vent Rate Vent Mode FiO2 Tidal Volume PEEP Peak Inspir Pressure Pressure Support Sodium Potassium Chloride Carbon Dioxide Anion Gap BUN Creatinine Estim Creat Clear Calc Estimated GFR Glucose POC Capillary Glucose 239 H Calcium Phosphorus Magnesium Total Bilirubin AST ALT Alkaline Phosphatase Total Protein Albumin Urine Color Urine Appearance Urine pH Ur Specific [place] Urine Protein Urine Glucose (UA) Urine Ketones Ur Blood (Man) Urine Nitrate Urine Bilirubin Urine Urobilinogen Add Ur Microanalysis Leukocyte Esterase Rfl Urine RBC Urine WBC Ur Squamous Epith Cells Urine Bacteria Urine Casts Hyaline Casts Fluid EBV Source Csf CSF EBV DNA (PCR) TNP CSF Herpes I DNA (PCR) TNP HSV (PCR) Source Csf Blood Type B Negative Antibody Screen Negative Crossmatch See Detail 11/08/24 11/08/24 11/09/24 14:25 18:16 00:03 WBC RBC Hgb Hct MCV MCH MCHC RDW Plt Count MPV Immature Gran % (Auto) Neut % (Auto) Lymph % (Auto) Maury % (Auto) Eos % (Auto) Baso % (Auto) Lymph # (Auto) Maury # (Auto) Eos # (Auto) Baso # (Auto) Abs Immat Gran (auto) Absolute Neuts (auto) Absolute Nucleated RBC Nucleated RBC % Puncture Site ABG pH ABG pCO2 ABG pO2 ABG PO2/FiO2 Ratio ABG HCO3 ABG O2 Saturation ABG O2 Content ABG Base Excess A-a Gradient Oxyhemoglobin Carboxyhemoglobin Methemoglobin Reduced Hemoglobin Total Hemoglobin O2 Delivery Device O2 Liters/Min Minute Volume Vent Rate Vent Mode FiO2 Tidal Volume PEEP Peak Inspir Pressure Pressure Support Sodium Potassium Chloride Carbon Dioxide Anion Gap BUN Creatinine Estim Creat Clear Calc Estimated GFR Glucose POC Capillary Glucose 126 H 122 H Calcium Phosphorus Magnesium Total Bilirubin AST ALT Alkaline Phosphatase Total Protein Albumin Urine Color Dark yellow Urine Appearance Cloudy H Urine pH 5.0 Ur Specific [place] 1.017 Urine Protein 1+ H Urine Glucose (UA) Negative Urine Ketones Trace H Ur Blood (Man) 3+ H Urine Nitrate Negative Urine Bilirubin 1+ H Urine Urobilinogen 0.2 Add Ur Microanalysis Reviewed Leukocyte Esterase Rfl Trace H Urine RBC 11-20 H Urine WBC 0-5 Ur Squamous Epith Cells Few Urine Bacteria None seen Urine Casts >20 Hyaline Casts Present Fluid EBV Source CSF EBV DNA (PCR) CSF Herpes I DNA (PCR) HSV (PCR) Source Blood Type Antibody Screen Crossmatch 11/09/24 11/09/24 11/09/24 05:03 05:54 05:55 WBC 14.6 H RBC 1.84 L Hgb 5.2 L* Hct 16.3 L* MCV 88.6 MCH 28.3 MCHC 31.9 L RDW 21.2 H Plt Count 355 MPV 11.2 H Immature Gran % (Auto) 0.5 Neut % (Auto) 74.1 H Lymph % (Auto) 11.0 L Maury % (Auto) 11.1 H Eos % (Auto) 2.8 Baso % (Auto) 0.5 Lymph # (Auto) 1.61 Maury # (Auto) 1.6 H Eos # (Auto) 0.4 H Baso # (Auto) 0.1 Abs Immat Gran (auto) 0.08 H Absolute Neuts (auto) 10.8 H Absolute Nucleated RBC 0.000 Nucleated RBC % 0.0 Puncture Site Left radial ABG pH 7.561 H* ABG pCO2 24.2 L ABG pO2 83.4 ABG PO2/FiO2 Ratio 3.34 ABG HCO3 21.2 L ABG O2 Saturation 97.6 ABG O2 Content 7.3 L ABG Base Excess -1.0 A-a Gradient 66.1 Oxyhemoglobin 94.4 Carboxyhemoglobin 1.1 Methemoglobin 0.5 Reduced Hemoglobin 4.0 Total Hemoglobin 5.4 L* O2 Delivery Device Ventilator O2 Liters/Min Not Reportable Minute Volume Not Reportable Vent Rate 20 Vent Mode Cmv FiO2 25 Tidal Volume 400 PEEP 5 Peak Inspir Pressure Not Reportable Pressure Support Not Reportable Sodium 132 L Potassium 3.7 Chloride 100 Carbon Dioxide 21 L Anion Gap 11 BUN 34 H Creatinine 1.76 H Estim Creat Clear Calc 34 Estimated GFR 38 L Glucose 135 H POC Capillary Glucose 114 H Calcium 8.5 Phosphorus 5.5 H Magnesium 2.0 Total Bilirubin 1.4 H AST 58 ALT 26 Alkaline Phosphatase 100 Total Protein 6.5 Albumin 3.1 L Urine Color Urine Appearance Urine pH Ur Specific [place] Urine Protein Urine Glucose (UA) Urine Ketones Ur Blood (Man) Urine Nitrate Urine Bilirubin Urine Urobilinogen Add Ur Microanalysis Leukocyte Esterase Rfl Urine RBC Urine WBC Ur Squamous Epith Cells Urine Bacteria Urine Casts Hyaline Casts Fluid EBV Source CSF EBV DNA (PCR) CSF Herpes I DNA (PCR) HSV (PCR) Source Blood Type Antibody Screen Crossmatch 11/09/24 09:32 WBC RBC Hgb Hct MCV MCH MCHC RDW Plt Count MPV Immature Gran % (Auto) Neut % (Auto) Lymph % (Auto) Maury % (Auto) Eos % (Auto) Baso % (Auto) Lymph # (Auto) Maury # (Auto) Eos # (Auto) Baso # (Auto) Abs Immat Gran (auto) Absolute Neuts (auto) Absolute Nucleated RBC Nucleated RBC % Puncture Site Left radial ABG pH 7.520 H* ABG pCO2 28.9 L ABG pO2 84.5 ABG PO2/FiO2 Ratio 3.38 ABG HCO3 23.1 ABG O2 Saturation 97.4 ABG O2 Content 8.5 L ABG Base Excess 0.3 A-a Gradient 59.4 Oxyhemoglobin 94.6 Carboxyhemoglobin Methemoglobin Reduced Hemoglobin Total Hemoglobin 6.3 L* O2 Delivery Device Ventilator O2 Liters/Min Not Reportable Minute Volume Not Reportable Vent Rate 16 Vent Mode Cmv FiO2 25 Tidal Volume 400 PEEP 5 Peak Inspir Pressure Not Reportable Pressure Support Not Reportable Sodium Potassium Chloride Carbon Dioxide Anion Gap BUN Creatinine Estim Creat Clear Calc Estimated GFR Glucose POC Capillary Glucose Calcium Phosphorus Magnesium Total Bilirubin AST ALT Alkaline Phosphatase Total Protein Albumin Urine Color Urine Appearance Urine pH Ur Specific [place] Urine Protein Urine Glucose (UA) Urine Ketones Ur Blood (Man) Urine Nitrate Urine Bilirubin Urine Urobilinogen Add Ur Microanalysis Leukocyte Esterase Rfl Urine RBC Urine WBC Ur Squamous Epith Cells Urine Bacteria Urine Casts Hyaline Casts Fluid EBV Source CSF EBV DNA (PCR) CSF Herpes I DNA (PCR) HSV (PCR) Source Blood Type Antibody Screen Crossmatch Quality VTE Prophylaxis VTE prophylaxis: mechanical ordered
--- NOTE | 2024-11-09 11:49 | P.PNGS_ITS ---
Progress Note: A&P Assessment and Plan (1) Unable to eat: Code(s): R63.8 - Other symptoms and signs concerning food and fluid intake Status: Acute Assessment and Plan: * Postop day 2 following placement of jejunostomy tube. Patient intubated. Taken off sedation. Unlikely that there is any issue with the placement of his J- tube, but will continue to monitor. CXR benign. Upper GI XR with water soluble contrast through J tube ordered today to assess for any j-tube leakage. Will manage accordingly pending the imaging results. (2) Metabolic encephalopathy: Code(s): G93.41 - Metabolic encephalopathy Status: Acute (3) Shock: Code(s): R57.9 - Shock, unspecified Status: Acute Assessment and Plan: * Patient initially presented with septic shock that resolved and developed new hypotension yesterday morning. Patient is still currently on vasopressors, but off of sedation. Continue broad-spectrum IV antibiotics. Source could be pneumonia vs UTI vs multifactorial. CT scan yesterday also showed possible gallbladder distention with cholelithiasis. Prior to surgery, he had no complaints of abdominal pain or tenderness on exam that would suggest cholecystitis. Doubt his gallbladder is causing his acute issues. Will continue to follow. Continue critical care management. (4) History of [place] I operation: Code(s): Z98.890 - Other specified postprocedural states Status: Chronic Plan I have discussed the patient's case and plan of care with Dr. Ortiz. Subjective Subjective Date/Time Seen: 11/09/24 11:49 Interval history: Patient was intubated yesteday after a rapid response was called. Patient is currently still on Levophed infusion. He is off of sedation. Patient's hemoglobin dropped to 5.2 from 7.2 so he was given a unit of blood this morning. Currently receiving another unit. NG tube to suction yesterday with around 600 mL of output. Still putting out quite a bit of fluid today. Exam Const: General: ill appearing and patient obtunded (intubated. Just taken off sedation.) GI: Inspection: non-distended and scar (Large upper abdominal midline scar as before) Other: Jejunostomy tube in place in the LLQ. Incision site clean and dry. Incision site dressing changed today. Wound is healing very well. No dehiscence, necrosis, or purulent drainage. No erythema or edema. Minimal serosanguineous drainage on dressings. NG tube in place and suctioning significant amount of bilious fluid. Nurse reports less output from FMS today, but still very loose. Objective Data Vital Signs Vital Signs: Vital Signs - 24 hr 11/08/24 11:52 11/08/24 12:00 11/08/24 12:00 Temperature 96.2 F L Pulse Rate 79 85 85 Respiratory Rate 20 19 Blood Pressure 105/66 109/69 Pulse Oximetry 100 Oxygen Delivery Fraction of Inspired Oxygen 11/08/24 12:00 11/08/24 12:00 11/08/24 12:00 Temperature Pulse Rate 80 88 Respiratory Rate Blood Pressure Pulse Oximetry 100 Oxygen Delivery Mechanical Ventilation Fraction of Inspired Oxygen 40 50 11/08/24 12:20 11/08/24 14:00 11/08/24 14:00 Temperature Pulse Rate 84 86 98 Respiratory Rate 20 Blood Pressure 102/76 Pulse Oximetry 100 Oxygen Delivery Mechanical Ventilation Fraction of Inspired Oxygen 40 11/08/24 15:52 11/08/24 16:00 11/08/24 16:00 Temperature 96.1 F L Pulse Rate 77 90 96 Respiratory Rate 20 20 Blood Pressure 111/73 97/64 L Pulse Oximetry 100 Oxygen Delivery Fraction of Inspired Oxygen 11/08/24 16:00 11/08/24 16:00 11/08/24 16:00 Temperature Pulse Rate 78 77 Respiratory Rate Blood Pressure Pulse Oximetry 100 Oxygen Delivery Mechanical Ventilation Fraction of Inspired Oxygen 30 30 11/08/24 16:08 11/08/24 17:28 11/08/24 17:31 Temperature Pulse Rate 77 99 102 H Respiratory Rate 20 Blood Pressure 95/76 L Pulse Oximetry 100 Oxygen Delivery Mechanical Ventilation Fraction of Inspired Oxygen 30 11/08/24 17:51 11/08/24 18:00 11/08/24 18:00 Temperature Pulse Rate 76 82 76 Respiratory Rate 20 Blood Pressure 118/73 Pulse Oximetry 100 Oxygen Delivery Mechanical Ventilation Fraction of Inspired Oxygen 30 11/08/24 20:00 11/08/24 20:00 11/08/24 20:00 Temperature Pulse Rate 84 84 84 Respiratory Rate 20 Blood Pressure 114/71 Pulse Oximetry 100 Oxygen Delivery Mechanical Ventilation Fraction of Inspired Oxygen 25 11/08/24 20:00 11/08/24 20:00 11/08/24 20:00 Temperature 97 F L Pulse Rate 86 89 Respiratory Rate 20 Blood Pressure 114/71 Pulse Oximetry 100 Oxygen Delivery Fraction of Inspired Oxygen 11/08/24 20:20 11/08/24 22:00 11/08/24 22:00 Temperature 97.3 F L Pulse Rate 83 81 81 Respiratory Rate 20 Blood Pressure 100/61 100/61 Pulse Oximetry 100 100 Oxygen Delivery Mechanical Ventilation Fraction of Inspired Oxygen 30 11/08/24 22:01 11/08/24 22:01 11/08/24 23:03 Temperature Pulse Rate 82 82 81 Respiratory Rate 20 20 Blood Pressure Pulse Oximetry 100 Oxygen Delivery Mechanical Ventilation Fraction of Inspired Oxygen 11/09/24 00:00 11/09/24 00:00 11/09/24 00:00 Temperature Pulse Rate 82 82 82 Respiratory Rate 20 Blood Pressure 107/65 107/65 Pulse Oximetry Oxygen Delivery Fraction of Inspired Oxygen 11/09/24 00:00 11/09/24 00:00 11/09/24 00:00 Temperature Pulse Rate 80 83 Respiratory Rate Blood Pressure Pulse Oximetry 100 Oxygen Delivery Mechanical Ventilation Fraction of Inspired Oxygen 11/09/24 00:00 11/09/24 02:00 11/09/24 02:00 Temperature 97.8 F 98.1 F Pulse Rate 81 82 82 Respiratory Rate 20 20 20 Blood Pressure 107/65 123/69 Pulse Oximetry 100 100 Oxygen Delivery Fraction of Inspired Oxygen 11/09/24 02:00 11/09/24 02:05 11/09/24 04:00 Temperature Pulse Rate 82 83 81 Respiratory Rate Blood Pressure 123/69 Pulse Oximetry 100 100 Oxygen Delivery Mechanical Ventilation Mechanical Ventilation Fraction of Inspired Oxygen 11/09/24 04:00 11/09/24 04:00 11/09/24 04:00 Temperature 98 F Pulse Rate 82 82 Respiratory Rate 20 Blood Pressure 101/65 Pulse Oximetry 100 Oxygen Delivery Fraction of Inspired Oxygen 11/09/24 04:00 11/09/24 04:00 11/09/24 05:05 Temperature Pulse Rate 80 82 83 Respiratory Rate 20 Blood Pressure 101/65 Pulse Oximetry 100 Oxygen Delivery Mechanical Ventilation Fraction of Inspired Oxygen 11/09/24 06:00 11/09/24 06:00 11/09/24 06:00 Temperature Pulse Rate 81 81 82 Respiratory Rate 20 20 Blood Pressure 91/55 L 91/55 L Pulse Oximetry 100 Oxygen Delivery Fraction of Inspired Oxygen 11/09/24 07:33 11/09/24 08:00 11/09/24 08:00 Temperature 98 F Pulse Rate 80 90 Respiratory Rate 20 16 Blood Pressure 101/65 Pulse Oximetry 100 100 Oxygen Delivery Mechanical Ventilation Fraction of Inspired Oxygen 25 25 11/09/24 08:00 11/09/24 08:04 11/09/24 08:13 Temperature 98.1 F Pulse Rate 73 75 75 Respiratory Rate 16 16 Blood Pressure 95/52 L Pulse Oximetry 100 Oxygen Delivery Fraction of Inspired Oxygen 11/09/24 08:15 11/09/24 08:15 11/09/24 08:29 Temperature 98.1 F Pulse Rate 76 78 82 Respiratory Rate 16 Blood Pressure 85/55 L 114/68 Pulse Oximetry 100 100 Oxygen Delivery Mechanical Ventilation Fraction of Inspired Oxygen 25 11/09/24 09:29 11/09/24 10:00 11/09/24 10:09 Temperature 97.9 F 98 F Pulse Rate 82 81 81 Respiratory Rate 16 16 16 Blood Pressure 118/90 126/74 128/68 Pulse Oximetry 100 100 100 Oxygen Delivery Fraction of Inspired Oxygen 11/09/24 10:30 11/09/24 10:31 11/09/24 10:40 Temperature 98 F 98 F Pulse Rate 82 81 78 Respiratory Rate 16 16 Blood Pressure 127/69 127/69 113/68 Pulse Oximetry 100 100 Oxygen Delivery Fraction of Inspired Oxygen 11/09/24 11:42 Temperature Pulse Rate 80 Respiratory Rate Blood Pressure Pulse Oximetry 100 Oxygen Delivery Mechanical Ventilation Fraction of Inspired Oxygen 25 Intake/Output Intake/Output: Intake & Output 11/06/24 11/07/24 11/08/24 11/09/24 23:59 23:59 23:59 23:59 Intake Total 600 2091.6 842.9 Output Total 2450 1750 975 600 Balance -2450 -1150 1116.6 242.9 Meds/Results Medications: Active Medications Generic Name Dose Route Start Last Admin Trade Name Freq PRN Reason Stop Dose Admin Aspirin 81 mg 11/04/24 08:00 11/09/24 08:17 Aspirin 81 Mg Chewable Tablet FEED TUBE 81 mg DAILY@0800 JHONY Administration Dextrose 12.5 gm 10/17/24 21:26 10/30/24 05:55 Dextrose 50% 25 Gm/50 Ml Syringe IV PUSH 12.5 gm PRN PRN Administration Hypoglycemia Protocol Enoxaparin Sodium 40 mg 11/02/24 09:00 11/09/24 08:18 Enoxaparin 40 Mg/0.4 Ml Syringe SUB-Q 40 mg DAILY JHONY Administration Fidaxomicin 200 mg 11/08/24 09:00 11/09/24 08:17 Fidaxomicin 200 Mg Tablet FEED TUBE 11/18/24 08:59 200 mg Q12HR JHONY Administration Folic Acid 1 mg 10/24/24 09:00 11/09/24 08:17 Folic Acid 1 Mg Tablet FEED TUBE 1 mg QAM JHONY Administration Glucagon 1 mg 10/17/24 21:26 Glucagon For Inj 1 Mg Vial IM PRN PRN Hypoglycemia Protocol Glucose 15 gm 10/17/24 21:26 Glucose Oral Gel 15 Gm Of Glucse In 37.5 Gm Tube PO PRN PRN Hypoglycemia Protocol Dextrose 1,000 mls @ 100 mls/hr 10/17/24 21:26 Dextrose 5% 1,000 Ml IVPB PRN PRN Hypoglycemia Protocol Midazolam HCl 100 mg in 100 mls @ 0 mls/hr 11/08/24 07:35 11/09/24 08:04 Versed 100 Mg/Ns 100 Ml IV CONT 0 mg/hr .Q0M JHONY 0 mls/hr Titration Protocol 0 MG/HR Norepinephrine Bitartrate 8 mg in 250 mls @ 11.25 mls/hr 11/08/24 08:05 11/09/24 10:30 Levophed 8 Mg/D5w 250 Ml IV CONT 6 mcg/min .[id number] JHONY 11.25 mls/hr Titration Protocol 6 MCG/MIN Meropenem 1 gm in 100 mls @ 200 mls/hr 11/08/24 11:30 11/09/24 08:24 IVPB 200 mls/hr Q12HR JHONY Administration Sodium Chloride 250 mls @ 30 mls/hr 11/09/24 06:47 11/09/24 08:04 Normal Saline Iv IV CONT 11/09/24 15:06 Not Given .Q8H20M STA Lactated Ringer's 1,000 mls @ 100 mls/hr 11/09/24 07:40 11/09/24 08:05 Lr - Lactated Ringers Iv IV CONT 11/09/24 17:39 100 mls/hr .Q10H JHONY Administration Insulin Aspart 3 - 6 units 11/08/24 12:00 11/09/24 05:57 Insulin Aspart (*Bkc) 100 Units/Ml SUB-Q Not Given Q6HR [facility] Protocol Midazolam HCl 2 mg 11/08/24 07:35 Midazolam Hcl (*Crx) 2 Mg/2 Ml Vial IV PUSH Q5M PRN ventilator asynchrony Multi-Ingred Cream/Lotion/Oil/Oint 1 applic 11/08/24 09:00 11/09/24 08:18 Mineral Oil/White Petrolatum Ointment EACH EYE 1 applic Q12HR JHONY Administration Pantoprazole Sodium 40 mg 10/18/24 21:00 11/09/24 08:16 Pantoprazole Sodium Iv 40 Mg Vial IV PUSH 40 mg Q12HR JHONY Administration Rosuvastatin Calcium 10 mg 11/04/24 09:00 11/07/24 09:08 Rosuvastatin 10 Mg Tablet FEED TUBE Not Given DAILY JHONY Saccharomyces Boulardii 250 mg 11/05/24 09:00 11/09/24 08:16 Saccharomyces Boulardii 250 Mg Capsule PO 250 mg DAILY JHONY Administration Sodium Bicarbonate 650 mg 11/08/24 09:00 11/09/24 08:17 Sodium Bicarbonate Tab 650 Mg Tablet FEED TUBE 650 mg BID JHONY Administration Sodium Chloride 10 ml 11/08/24 14:00 11/09/24 05:57 Central Line Flush IV PUSH 10 ml Q8HR JHONY Administration Sodium Chloride 10 ml 11/08/24 08:15 Central Line Flush IV PUSH PRN PRN with TPN bag changes Sodium Chloride 20 ml 11/08/24 08:15 11/09/24 05:57 Central Line Flush IV PUSH 20 ml PRN PRN Administration after blood draws Thiamine HCl 100 mg 10/24/24 09:00 11/09/24 08:17 Thiamine Hcl 100 Mg Tablet FEED TUBE 100 mg QAM JHONY Administration Radiology Results: ITS Impressions Face CT 10/19/24 09:39 IMPRESSION: 1. Extensive sinus disease with near complete opacification of the right maxillary sinus and dependently layering fluid in the bilateral sphenoid sinuses. Correlate clinically for acute sinusitis. 2. Dental and periodontal disease with periapical lucency surrounding the posterior most remaining right maxillary molar. Renal Ultrasound 10/19/24 09:48 IMPRESSION: No hydronephrosis or renal calculi. No parenchymal findings to suggest the presence of medical renal disease. Simple cysts within the right kidney, for which no further follow-up is needed. Brain MRI 10/24/24 14:22 IMPRESSION: 1. Age-related changes the brain. No acute intracranial process. 2. Prominent sinus disease with fluid nearly filling the right maxillary sinus and layering dependently in the bilateral sphenoid sinuses. Correlate clinically for acute sinusitis. Lumbar Puncture Fluoroscopy 10/31/24 17:34 IMPRESSION: 1. Successful fluoro-guided lumbar puncture with mildly elevated opening pressure of 23 cm water. Upper GI Series 11/02/24 12:44 IMPRESSION: 1. Partial distal gastrectomy with gastroduodenal anastomosis. Nasogastric tube tip extends beyond the anastomosis with proximal side-port in the remaining body of the stomach. Modified Barium Swallow 11/06/24 10:05 IMPRESSION: Nondiagnostic study as all contents either leaked or were actively expelled from the mouth. No swallows were able to be evaluated. Please correlate with speech pathologist findings and specific feeding recommendations. Abdomen X-Ray 11/08/24 07:55 Impression: NG tube in satisfactory position. Probable small bowel obstruction. Head CT 11/08/24 09:52 IMPRESSION: No acute intracranial findings. Chest/Abdomen/Pelvis CT 11/08/24 09:59 IMPRESSION: CHEST: 1. Right basilar atelectasis versus pneumonia with pleural effusion. 2. No other acute cardiopulmonary pathology. ABDOMEN/PELVIS: 1. Free air is seen anteriorly around the liver with minimal fluid. 2. Significant ascites in the pelvis. Drainage tube is seen in the left side of the pelvis. 3. Cholelithiasis with thickened wall of the gallbladder. Evaluation for cholecystitis advised. 4. Slightly dilated small bowel loops in the left upper abdomen which may indicate ileus follow-up advised. 5. Right renal cysts. Chest X-Ray 11/09/24 06:16 Impression: Clear lungs. Support tubes, as above. Labs Labs: Laboratory Results - last 24 hr 10/31/24 11/06/24 11/08/24 16:46 18:42 11:55 WBC RBC Hgb Hct MCV MCH MCHC RDW Plt Count MPV Immature Gran % (Auto) Neut % (Auto) Lymph % (Auto) [place] % (Auto) Eos % (Auto) Baso % (Auto) Lymph # (Auto) [place] # (Auto) Eos # (Auto) Baso # (Auto) Abs Immat Gran (auto) Absolute Neuts (auto) Absolute Nucleated RBC Nucleated RBC % Puncture Site ABG pH ABG pCO2 ABG pO2 ABG PO2/FiO2 Ratio ABG HCO3 ABG O2 Saturation ABG O2 Content ABG Base Excess A-a Gradient Oxyhemoglobin Carboxyhemoglobin Methemoglobin Reduced Hemoglobin Total Hemoglobin O2 Delivery Device O2 Liters/Min Minute Volume Vent Rate Vent Mode FiO2 Tidal Volume PEEP Peak Inspir Pressure Pressure Support Sodium Potassium Chloride Carbon Dioxide Anion Gap BUN Creatinine Estim Creat Clear Calc Estimated GFR Glucose POC Capillary Glucose 239 H Calcium Phosphorus Magnesium Total Bilirubin AST ALT Alkaline Phosphatase Total Protein Albumin Urine Color Urine Appearance Urine pH Ur Specific [place] Urine Protein Urine Glucose (UA) Urine Ketones Ur Blood (Man) Urine Nitrate Urine Bilirubin Urine Urobilinogen Add Ur Microanalysis Leukocyte Esterase Rfl Urine RBC Urine WBC Ur Squamous Epith Cells Urine Bacteria Urine Casts Hyaline Casts Fluid EBV Source Csf CSF EBV DNA (PCR) TNP CSF Herpes I DNA (PCR) TNP HSV (PCR) Source Csf Blood Type B Negative Antibody Screen Negative Crossmatch See Detail 11/08/24 11/08/24 11/09/24 14:25 18:16 00:03 WBC RBC Hgb Hct MCV MCH MCHC RDW Plt Count MPV Immature Gran % (Auto) Neut % (Auto) Lymph % (Auto) [place] % (Auto) Eos % (Auto) Baso % (Auto) Lymph # (Auto) [place] # (Auto) Eos # (Auto) Baso # (Auto) Abs Immat Gran (auto) Absolute Neuts (auto) Absolute Nucleated RBC Nucleated RBC % Puncture Site ABG pH ABG pCO2 ABG pO2 ABG PO2/FiO2 Ratio ABG HCO3 ABG O2 Saturation ABG O2 Content ABG Base Excess A-a Gradient Oxyhemoglobin Carboxyhemoglobin Methemoglobin Reduced Hemoglobin Total Hemoglobin O2 Delivery Device O2 Liters/Min Minute Volume Vent Rate Vent Mode FiO2 Tidal Volume PEEP Peak Inspir Pressure Pressure Support Sodium Potassium Chloride Carbon Dioxide Anion Gap BUN Creatinine Estim Creat Clear Calc Estimated GFR Glucose POC Capillary Glucose 126 H 122 H Calcium Phosphorus Magnesium Total Bilirubin AST ALT Alkaline Phosphatase Total Protein Albumin Urine Color Dark yellow Urine Appearance Cloudy H Urine pH 5.0 Ur Specific [place] 1.017 Urine Protein 1+ H Urine Glucose (UA) Negative Urine Ketones Trace H Ur Blood (Man) 3+ H Urine Nitrate Negative Urine Bilirubin 1+ H Urine Urobilinogen 0.2 Add Ur Microanalysis Reviewed Leukocyte Esterase Rfl Trace H Urine RBC 11-20 H Urine WBC 0-5 Ur Squamous Epith Cells Few Urine Bacteria None seen Urine Casts >20 Hyaline Casts Present Fluid EBV Source CSF EBV DNA (PCR) CSF Herpes I DNA (PCR) HSV (PCR) Source Blood Type Antibody Screen Crossmatch 11/09/24 11/09/24 11/09/24 05:03 05:54 05:55 WBC 14.6 H RBC 1.84 L Hgb 5.2 L* Hct 16.3 L* MCV 88.6 MCH 28.3 MCHC 31.9 L RDW 21.2 H Plt Count 355 MPV 11.2 H Immature Gran % (Auto) 0.5 Neut % (Auto) 74.1 H Lymph % (Auto) 11.0 L [place] % (Auto) 11.1 H Eos % (Auto) 2.8 Baso % (Auto) 0.5 Lymph # (Auto) 1.61 [place] # (Auto) 1.6 H Eos # (Auto) 0.4 H Baso # (Auto) 0.1 Abs Immat Gran (auto) 0.08 H Absolute Neuts (auto) 10.8 H Absolute Nucleated RBC 0.000 Nucleated RBC % 0.0 Puncture Site Left radial ABG pH 7.561 H* ABG pCO2 24.2 L ABG pO2 83.4 ABG PO2/FiO2 Ratio 3.34 ABG HCO3 21.2 L ABG O2 Saturation 97.6 ABG O2 Content 7.3 L ABG Base Excess -1.0 A-a Gradient 66.1 Oxyhemoglobin 94.4 Carboxyhemoglobin 1.1 Methemoglobin 0.5 Reduced Hemoglobin 4.0 Total Hemoglobin 5.4 L* O2 Delivery Device Ventilator O2 Liters/Min Not Reportable Minute Volume Not Reportable Vent Rate 20 Vent Mode Cmv FiO2 25 Tidal Volume 400 PEEP 5 Peak Inspir Pressure Not Reportable Pressure Support Not Reportable Sodium 132 L Potassium 3.7 Chloride 100 Carbon Dioxide 21 L Anion Gap 11 BUN 34 H Creatinine 1.76 H Estim Creat Clear Calc 34 Estimated GFR 38 L Glucose 135 H POC Capillary Glucose 114 H Calcium 8.5 Phosphorus 5.5 H Magnesium 2.0 Total Bilirubin 1.4 H AST 58 ALT 26 Alkaline Phosphatase 100 Total Protein 6.5 Albumin 3.1 L Urine Color Urine Appearance Urine pH Ur Specific [place] Urine Protein Urine Glucose (UA) Urine Ketones Ur Blood (Man) Urine Nitrate Urine Bilirubin Urine Urobilinogen Add Ur Microanalysis Leukocyte Esterase Rfl Urine RBC Urine WBC Ur Squamous Epith Cells Urine Bacteria Urine Casts Hyaline Casts Fluid EBV Source CSF EBV DNA (PCR) CSF Herpes I DNA (PCR) HSV (PCR) Source Blood Type Antibody Screen Crossmatch 11/09/24 09:32 WBC RBC Hgb Hct MCV MCH MCHC RDW Plt Count MPV Immature Gran % (Auto) Neut % (Auto) Lymph % (Auto) [place] % (Auto) Eos % (Auto) Baso % (Auto) Lymph # (Auto) [place] # (Auto) Eos # (Auto) Baso # (Auto) Abs Immat Gran (auto) Absolute Neuts (auto) Absolute Nucleated RBC Nucleated RBC % Puncture Site Left radial ABG pH 7.520 H* ABG pCO2 28.9 L ABG pO2 84.5 ABG PO2/FiO2 Ratio 3.38 ABG HCO3 23.1 ABG O2 Saturation 97.4 ABG O2 Content 8.5 L ABG Base Excess 0.3 A-a Gradient 59.4 Oxyhemoglobin 94.6 Carboxyhemoglobin Methemoglobin Reduced Hemoglobin Total Hemoglobin 6.3 L* O2 Delivery Device Ventilator O2 Liters/Min Not Reportable Minute Volume Not Reportable Vent Rate 16 Vent Mode Cmv FiO2 25 Tidal Volume 400 PEEP 5 Peak Inspir Pressure Not Reportable Pressure Support Not Reportable Sodium Potassium Chloride Carbon Dioxide Anion Gap BUN Creatinine Estim Creat Clear Calc Estimated GFR Glucose POC Capillary Glucose Calcium Phosphorus Magnesium Total Bilirubin AST ALT Alkaline Phosphatase Total Protein Albumin Urine Color Urine Appearance Urine pH Ur Specific [place] Urine Protein Urine Glucose (UA) Urine Ketones Ur Blood (Man) Urine Nitrate Urine Bilirubin Urine Urobilinogen Add Ur Microanalysis Leukocyte Esterase Rfl Urine RBC Urine WBC Ur Squamous Epith Cells Urine Bacteria Urine Casts Hyaline Casts Fluid EBV Source CSF EBV DNA (PCR) CSF Herpes I DNA (PCR) HSV (PCR) Source Blood Type Antibody Screen Crossmatch
--- NOTE | 2024-11-09 15:23 | PC.NURSE ---
per Radha in care coordination, Tip Johnson ) will be the point of contact from here forward for updates and decision making. There is currently no documentation regarding POA, the 3 children will collectively make decisions on Mr. Calvo's care and will relay these decisions through the elected point of contact.
[2024-11-09 18:53] LABS: Hematocrit 23.1 % (42.0-52.0); Hemoglobin 7.7 g/dL (14.0-18.0)
[2024-11-09 19:29] LABS: Lyme AB IgG, Immunoblot BAND(S) PRESENT; Lyme AB IgM, Immunoblot NO BANDS DETECTED
[2024-11-09 20:34] LABS: Cryptococcus Specimen Source CEREBROSPINAL FLUID
[2024-11-10] VITALS (43 sets, daily range): BP systolic 80–138; BP diastolic 50–82; PULSE 67–99; RESP 16–22; TEMP 36–37.2; O2SAT 96–100
[2024-11-10 05:00] LABS: Alveolar/Arterial O2 Gradient 33.8 mmHg; Carboxyhemoglobin 0.2 % THb (0-2.0); Fractional Inspired Oxygen 25 %; HCO3 ABG 24.1 mEq/l (22.0-26.0); Methemoglobin ABG 0.1 %THb (0-1.5); Oxygen Content ABG 12.4 %vol (16.0-22.0); Oxygen Saturation ABG 98.4 % (95.0-100.0); PCO2 ABG 30.5 mmHg (35.0-45.0); PO2 ABG 108.2 mmHg (80.0-100.0); PO2 FiO2 Ratio Arterial Blood 4.33 %; Reduced Hemoglobin 2.0 %THb (0-5.0)
[2024-11-10 05:04] LABS: Modified Allen's Test Pass; Site Drawn RIGHT RADIAL
[2024-11-10 05:05] LABS: Arterial Blood Gas Tidal Volume 400 ml; Arterial Blood Gas Ventilator rate 16 /MIN
[2024-11-10 05:59] LABS: Hematocrit 22.3 % (42.0-52.0); Hemoglobin 7.4 g/dL (14.0-18.0); Mean Corpuscular HGB Conc 33.2 g/dl (32-36); Mean Corpuscular Hemoglobin 29.2 pg (26-34); Mean Corpuscular Volume 88.1 fl (80-100); Platelet Count Result 304 k/mm3 (150-375); Red Blood Count 2.53 M/mm3 (4.6-6.20); White Blood Count 9.7 K/mm3 (4.5-10.0)
[2024-11-10] MEDS: CENTRAL LINE FLUSH 20 ML IV PUSH (06:02)
[2024-11-10] MEDS: CENTRAL LINE FLUSH 10 ML IV PUSH ×3 (06:02→20:16)
[2024-11-10 06:13] LABS: Alanine Aminotransferase 19 U/L (6-50); Albumin Level 2.8 g/dL (3.5-5.1); Alkaline Phosphatase 92 U/L (38-126); Anion Gap 8 mmol/L (4-12); Aspartate Amino Transferase 48 U/L (17-59); Bilirubin,Total 1.2 mg/dL (0.2-1.3); Blood Urea Nitrogen 30 mg/dL (9-20); Calcium 8.3 mg/dL (8.4-10.2); Carbon Dioxide 24 mmol/L (22-30); Chloride 104 mmol/L (98-107); Estimated CRCL calculation 45 ml/min; Estimated Glomerular Filt Rate 53; Glucose 100 mg/dL (65-110); Magnesium 1.9 mg/dL (1.6-2.3); Potassium 3.5 mmol/L (3.4-5.0); Sodium 136 mmol/L (137-145); Total Protein 6.3 g/dL (6.3-8.2)
[2024-11-10] MEDS: FOLIC ACID 1 MG TABLET FEED TUBE (08:15)
[2024-11-10] MEDS: FIDAXOMICIN 200 MG TABLET FEED TUBE ×2 (08:15→20:16)
[2024-11-10] MEDS: SACCHAROMYCES BOULARDII 250 MG CAPSULE PO (08:15)
[2024-11-10] MEDS: THIAMINE HCL 100 MG TABLET FEED TUBE (08:15)
[2024-11-10] MEDS: ASPIRIN 81 MG CHEWABLE TABLET FEED TUBE (08:15)
[2024-11-10] MEDS: POTASSIUM CHLORIDE 20 MEQ PACKET (FOR LIQUID) 40 MEQ FEED TUBE (08:15)
[2024-11-10] MEDS: MEROPENEM 1 GM/NS 100 ML 1 GM/100 ML BAG IVPB ×2 (08:15→20:16)
[2024-11-10] MEDS: MINERAL OIL/WHITE PETROLATUM OINTMENT 1 APPLIC EACH EYE ×2 (08:16→20:16)
[2024-11-10] MEDS: PANTOPRAZOLE SODIUM IV 40 MG VIAL IV PUSH ×2 (08:16→20:16)
[2024-11-10] MEDS: dexmedeTOMIDine 400 MCG/100 ML 400 MCG/100 ML BAG IV CONT (08:18)
--- NOTE | 2024-11-10 10:38 | P.PNINT_ITS ---
Progress Note: A&P Assessment and Plan (1) Shock: Code(s): R57.9 - Shock, unspecified Status: Acute Assessment and Plan: Patient initially presented with septic shock which had resolved Now patient has developed new hypotension. Suspect aspiration pneumonia versus UTI as patient has had Michelle for more than 2 weeks., or persistent C diff infection CT chest abdomen pelvis ABDOMEN/PELVIS: 1. Free air is seen anteriorly around the liver with minimal fluid. 2. Significant ascites in the pelvis. Drainage tube is seen in the left side of the pelvis. 3. Cholelithiasis with thickened wall of the gallbladder. Evaluation for cholecystitis advised. 4. Slightly dilated small bowel loops in the left upper abdomen which may indicate ileus follow-up advised. 5. Right renal cysts Blood, sputum culture culture are negative till now Michelle changed and UA sent procalcitonin level 8.2 Continue Dificid and meropenem Patient was given IV fluid bolus and now off of IV fluids Continue 25% albumin Off Levophed infusion (2) Metabolic encephalopathy: Code(s): G93.41 - Metabolic encephalopathy Status: Acute Assessment and Plan: Patient has had Altered mental status since admission which has been multifactorial Patient was evaluated by Neurology and suspected to have metabolic encephalopathy. -CT brain on presented was negative for intracranial abnormalities. Repeat CT scan 11/08 also unremarkable -MRI cannot be performed as patient was in the [place] and may have sharpnel exposure according to his daughter -10/19: Repeat CT brain did not show any acute intracranial hemorrhage or suspicious mass effect, inflammatory sinus disease. -10/19: CT facial bones showed extensive sinus disease with near complete opacification of the right maxillary sinus and dependently layering fluid in the bilateral sphenoid sinuses. Dental and periodontal disease with periapical lucency surrounding the posterior most remaining right maxillary molar His ammonia level was normal Patient had LP on 10/31 and and only abnormality seen was elevated protein viral studies are pending Sedation holiday Switch Versed to Precedex (3) Acute kidney injury: Code(s): N17.9 - Acute kidney failure, unspecified Status: Acute Assessment and Plan: Patient presented with Acute kidney injury which improved with IV fluids Now the creatinine has again went up I suspect this is due to hypovolemia and sepsis Fully replaced CT scan reviewed Patient was given IV fluids and creatinine improving. Hold further IV fluid Although his intake and output show that he is significantly volume overloaded. He has had FMS with diarrhea which makes I&Os inaccurate. He does have minimal edema on exam Nephrology following Monitor urine output electrolytes and creatinine CK level is normal Earlier in the course CT scan of the abdomen and pelvis did not show any hydronephrosis or stones and renal ultrasound also showed No hydronephrosis or renal calculi, no apparent, findings to suggest the presence of medical renal disease. Simple cyst within the right kidney (4) Anemia: Code(s): D64.9 - Anemia, unspecified Status: Acute Assessment and Plan: Patient was anemic on presentation and received 2 units of PRBC. He was evaluate by Hematology Stool culture was negative and vitamin B12 were normal Folic acid was low and was supplement -iron panel was unremarkable He had EGD on 11/01 which showed gastritis and previous gastric surgery Hemoglobin dropped to 5.2 which could be partially dilutional versus GI loss 11/09 Transfuse 2 units PRBC Hold Lovenox and use SCDs Continue protonix Monitor hemoglobin (5) Thrombocytopenia: Code(s): D69.6 - Thrombocytopenia, unspecified Status: Acute Assessment and Plan: Thrombocytopenia that patient initially presented with has improved High platelet count at this time suggest hemoconcentration (6) Hyperkalemia: Code(s): E87.5 - Hyperkalemia Status: Acute Assessment and Plan: Hyperkalemia with ALEJANDRO Calcium gluconate, insulin and D50, bicarb Lokelma IV fluid bolus Now resolved (7) C. difficile diarrhea: Code(s): A04.72 - Enterocolitis due to Clostridium difficile, not specified as recurrent Status: Acute Assessment and Plan: Continue Dificid. Diarrhea improved. DC IV Flagyl CT abdomen pelvis reviewed Plan DVT prophylaxis: SCDs, Lovenox Stress ulcer prophylaxis: Protonix IV q.12 hours Nutrition: J tube placed, tube feeds will be started after surgery confirms contrast study 11/08 I updated patient's daughter and sister at bedside and answered all their questions. 11/10 I spoke to patient's son by phone and updated him with patient's status. I answered all his questions and explained him the patient is critically ill with multiple issues. I also updated him and current treatment plan and overall guarded prognosis. Code Status: Full code Total Critical Care Time - 32 minutes Due to a high probability of clinically significant, life threatening deterioration, the patient required my highest level of preparedness to intervene emergently and I personally spent this critical care time directly and personally managing the patient. This critical care time included obtaining a history; examining the patient; pulse oximetry; ordering and review of studies; arranging urgent treatment with development of a management plan; evaluation of patient's response to treatment; frequent reassessment; and discussions with other providers. It was exclusive of separately billable procedures and treating other patients and teaching time. Please see Assessment and Plan section and the rest of the note for further information on patient assessment and treatment Subjective Date/time seen: 11/10/24 Overnight events reviewed. Afebrile Continues to be on mechanical ventilation 25% FiO2 Off Levophed Patient was off sedation during the day yesterday but overnight had to be started on low-dose Versed. Again held this morning for sedation holiday Other Vitals acceptable Acceptable urine output. Tolerating tube feed Review of Systems Review of Systems: ROS unobtainable: Yes unobtainable due to endotracheal tube, unobtainable due to medical condition and unobtainable due to mental status Exam Narrative: General: Pt is sedated, intubated and on mechanical ventilation Lungs/Chest: Trachea central Coarse BS B/L, few crackles on the left base Cardiac: RRR. Normal S1 S2. No murmurs Circulation: Pedal pulses are intact and symmetrical. Abdomen: Present bowel sounds. Midline incision is under dressing Soft. NT. ND. Extremities: Patient has some edema bilaterally in lower extremity : Michelle in place Neurologic: Unable to assess due to sedation. Patient is moving all 4 extremities spontaneously. Grimaces on painful stimuli. Moves his head away during eye exam PERRL Objective Data Vital Signs Vital Signs: Vital Signs - 24 hr 11/09/24 10:40 11/09/24 11:40 11/09/24 11:42 Temperature 36.6 C 36.9 C Pulse Rate 78 81 80 Respiratory Rate 16 16 Blood Pressure 113/68 120/81 Pulse Oximetry 100 100 100 Oxygen Delivery Mechanical Ventilation Fraction of Inspired Oxygen 11/09/24 12:00 11/09/24 12:00 11/09/24 12:00 Temperature Pulse Rate 81 79 99 Respiratory Rate 16 Blood Pressure 128/83 Pulse Oximetry Oxygen Delivery Fraction of Inspired Oxygen 11/09/24 12:00 11/09/24 12:00 11/09/24 12:23 Temperature Pulse Rate 90 81 Respiratory Rate 16 Blood Pressure 127/80 Pulse Oximetry 100 Oxygen Delivery Mechanical Ventilation Fraction of Inspired Oxygen 25 11/09/24 12:40 11/09/24 12:43 11/09/24 12:44 Temperature 36.9 C 36.9 C Pulse Rate 76 77 76 Respiratory Rate 16 16 Blood Pressure 116/74 116/74 103/70 Pulse Oximetry 100 100 Oxygen Delivery Fraction of Inspired Oxygen 11/09/24 13:00 11/09/24 13:30 11/09/24 13:40 Temperature Pulse Rate 83 85 87 Respiratory Rate Blood Pressure 85/61 L 89/62 L Pulse Oximetry 100 Oxygen Delivery Mechanical Ventilation Fraction of Inspired Oxygen 11/09/24 13:45 11/09/24 14:00 11/09/24 14:00 Temperature Pulse Rate 80 76 76 Respiratory Rate 14 16 Blood Pressure 129/82 128/71 Pulse Oximetry 100 Oxygen Delivery Fraction of Inspired Oxygen 11/09/24 14:00 11/09/24 16:00 11/09/24 16:00 Temperature 37.0 C Pulse Rate 79 79 Respiratory Rate 16 Blood Pressure 121/78 129/71 Pulse Oximetry 100 Oxygen Delivery Fraction of Inspired Oxygen 25 11/09/24 16:00 11/09/24 16:00 11/09/24 16:00 Temperature Pulse Rate 74 74 78 Respiratory Rate 16 Blood Pressure 122/72 Pulse Oximetry Oxygen Delivery Fraction of Inspired Oxygen 11/09/24 16:00 11/09/24 17:00 11/09/24 17:14 Temperature Pulse Rate 75 73 77 Respiratory Rate 16 Blood Pressure 124/70 Pulse Oximetry 100 100 Oxygen Delivery Mechanical Ventilation Mechanical Ventilation Fraction of Inspired Oxygen 25 11/09/24 17:58 11/09/24 17:58 11/09/24 18:00 Temperature 36.4 C Pulse Rate 99 76 73 Respiratory Rate 22 H 16 Blood Pressure 121/71 113/65 Pulse Oximetry 100 Oxygen Delivery Fraction of Inspired Oxygen 11/09/24 18:00 11/09/24 18:30 11/09/24 19:00 Temperature 36.4 C L Pulse Rate 73 75 73 Respiratory Rate 16 16 16 Blood Pressure 113/65 113/67 Pulse Oximetry 100 100 Oxygen Delivery Fraction of Inspired Oxygen 11/09/24 19:01 11/09/24 19:15 11/09/24 19:16 Temperature 36.4 C L 36.3 C L 36.3 C L Pulse Rate 72 73 73 Respiratory Rate 16 16 16 Blood Pressure 118/69 Pulse Oximetry 100 100 100 Oxygen Delivery Fraction of Inspired Oxygen 11/09/24 19:28 11/09/24 19:30 11/09/24 19:31 Temperature 36.3 C L 36.3 C L Pulse Rate 74 75 75 Respiratory Rate 16 16 Blood Pressure 118/69 115/66 Pulse Oximetry 100 100 Oxygen Delivery Fraction of Inspired Oxygen 11/09/24 19:43 11/09/24 19:45 11/09/24 19:46 Temperature 36.3 C L 36.3 C L Pulse Rate 78 78 77 Respiratory Rate 15 16 Blood Pressure 115/66 107/68 Pulse Oximetry 100 100 Oxygen Delivery Fraction of Inspired Oxygen 11/09/24 19:56 11/09/24 20:00 11/09/24 20:00 Temperature Pulse Rate 79 77 77 Respiratory Rate 18 Blood Pressure 96/66 L Pulse Oximetry 100 Oxygen Delivery Mechanical Ventilation Fraction of Inspired Oxygen 11/09/24 20:00 11/09/24 20:00 11/09/24 20:01 Temperature 36.3 C L 36.3 C L 36.3 C L Pulse Rate 77 78 78 Respiratory Rate 18 16 16 Blood Pressure 96/66 L 96/66 L Pulse Oximetry 100 100 100 Oxygen Delivery Fraction of Inspired Oxygen 11/09/24 20:15 11/09/24 20:16 11/09/24 20:30 Temperature 36.2 C L 36.2 C L Pulse Rate 78 77 Respiratory Rate 16 16 16 Blood Pressure 108/68 Pulse Oximetry 100 100 100 Oxygen Delivery Mechanical Ventilation Fraction of Inspired Oxygen 11/09/24 20:30 11/09/24 20:30 11/09/24 20:30 Temperature 36.2 C L Pulse Rate 78 75 Respiratory Rate 16 Blood Pressure 116/71 Pulse Oximetry 100 Oxygen Delivery Fraction of Inspired Oxygen 11/09/24 20:31 11/09/24 20:45 11/09/24 20:46 Temperature 36.2 C L 36.2 C L 36.2 C L Pulse Rate 75 77 76 Respiratory Rate 16 16 16 Blood Pressure 112/72 Pulse Oximetry 100 100 100 Oxygen Delivery Fraction of Inspired Oxygen 11/09/24 21:00 11/09/24 21:01 11/09/24 21:15 Temperature 36.1 C L 36.1 C L 36.1 C L Pulse Rate 74 73 71 Respiratory Rate 16 16 16 Blood Pressure 107/64 102/62 Pulse Oximetry 100 100 100 Oxygen Delivery Fraction of Inspired Oxygen 11/09/24 21:16 11/09/24 21:30 11/09/24 21:31 Temperature 36.1 C L 36.0 C L 36.0 C L Pulse Rate 74 73 73 Respiratory Rate 16 16 17 Blood Pressure 106/64 Pulse Oximetry 100 100 100 Oxygen Delivery Fraction of Inspired Oxygen 11/09/24 21:45 11/09/24 21:46 11/09/24 22:00 Temperature 36.0 C L 36.0 C L Pulse Rate 71 71 72 Respiratory Rate 17 16 16 Blood Pressure 100/67 Pulse Oximetry 100 100 Oxygen Delivery Fraction of Inspired Oxygen 11/09/24 22:00 11/09/24 22:00 11/09/24 22:01 Temperature 36.0 C L 36.0 C L Pulse Rate 72 74 74 Respiratory Rate 17 16 Blood Pressure 100/69 100/69 Pulse Oximetry 100 100 Oxygen Delivery Fraction of Inspired Oxygen 11/09/24 22:15 11/09/24 22:16 11/09/24 22:30 Temperature 36.0 C L 36.0 C L 36.0 C L Pulse Rate 73 74 75 Respiratory Rate 16 16 14 Blood Pressure 95/66 L 104/65 Pulse Oximetry 100 100 100 Oxygen Delivery Fraction of Inspired Oxygen 11/09/24 22:31 11/09/24 22:45 11/09/24 22:46 Temperature 36.0 C L 36.1 C L 36.1 C L Pulse Rate 74 72 72 Respiratory Rate 14 16 18 Blood Pressure 95/66 L Pulse Oximetry 100 100 100 Oxygen Delivery Fraction of Inspired Oxygen 11/09/24 23:00 11/09/24 23:01 11/09/24 23:19 Temperature 36.1 C L 36.1 C L Pulse Rate 72 73 74 Respiratory Rate 16 16 Blood Pressure 103/63 Pulse Oximetry 100 100 100 Oxygen Delivery Mechanical Ventilation Fraction of Inspired Oxygen 11/10/24 00:00 11/10/24 00:00 11/10/24 00:00 Temperature 36.1 C L Pulse Rate 73 73 Respiratory Rate 16 Blood Pressure 103/68 103/68 Pulse Oximetry 100 100 Oxygen Delivery Mechanical Ventilation Fraction of Inspired Oxygen 11/10/24 00:00 11/10/24 00:00 11/10/24 00:10 Temperature Pulse Rate 75 73 Respiratory Rate 16 Blood Pressure Pulse Oximetry Oxygen Delivery Fraction of Inspired Oxygen 11/10/24 01:59 11/10/24 02:00 11/10/24 02:00 Temperature 36.0 C L Pulse Rate 70 70 70 Respiratory Rate 17 17 Blood Pressure 106/63 Pulse Oximetry 100 100 Oxygen Delivery Mechanical Ventilation Fraction of Inspired Oxygen 11/10/24 02:00 11/10/24 03:51 11/10/24 04:00 Temperature Pulse Rate 70 Respiratory Rate Blood Pressure 106/63 Pulse Oximetry 100 Oxygen Delivery Mechanical Ventilation Fraction of Inspired Oxygen 25 11/10/24 04:00 11/10/24 04:00 11/10/24 04:00 Temperature 36.2 C L Pulse Rate 70 70 70 Respiratory Rate 16 16 Blood Pressure 98/61 L 98/61 L Pulse Oximetry 100 Oxygen Delivery Fraction of Inspired Oxygen 11/10/24 04:00 11/10/24 04:48 11/10/24 06:00 Temperature 36.2 C L Pulse Rate 71 71 72 Respiratory Rate 16 Blood Pressure 102/70 Pulse Oximetry 100 100 Oxygen Delivery Mechanical Ventilation Fraction of Inspired Oxygen 25 11/10/24 06:01 11/10/24 06:01 11/10/24 07:00 Temperature Pulse Rate 72 71 73 Respiratory Rate 16 16 Blood Pressure 102/70 Pulse Oximetry Oxygen Delivery Fraction of Inspired Oxygen 11/10/24 07:54 11/10/24 08:00 11/10/24 08:00 Temperature 36.3 C L Pulse Rate 73 73 Respiratory Rate 17 16 Blood Pressure 107/67 Pulse Oximetry 100 100 Oxygen Delivery Mechanical Ventilation Fraction of Inspired Oxygen 25 11/10/24 08:18 11/10/24 08:23 11/10/24 10:00 Temperature 36.3 C L Pulse Rate 73 73 74 Respiratory Rate 16 17 Blood Pressure 103/69 Pulse Oximetry 100 100 Oxygen Delivery Mechanical Ventilation Fraction of Inspired Oxygen 25 Intake/Output Intake/Output: Intake & Output 11/07/24 11/08/24 11/09/24 11/10/24 23:59 23:59 23:59 23:59 Intake Total 600 2091.6 1512.1 508.0 Output Total 2600 387 5552 1700 Balance -1150 1116.6 -37.9 -1192.0 Meds/Results Medications: Active Medications Generic Name Dose Route Start Last Admin Trade Name Freq PRN Reason Stop Dose Admin Aspirin 81 mg 11/04/24 08:00 11/10/24 08:15 Aspirin 81 Mg Chewable Tablet FEED TUBE 81 mg DAILY@0800 JHONY Administration Dextrose 12.5 gm 10/17/24 21:26 10/30/24 05:55 Dextrose 50% 25 Gm/50 Ml Syringe IV PUSH 12.5 gm PRN PRN Administration Hypoglycemia Protocol Enoxaparin Sodium 40 mg 11/02/24 09:00 11/09/24 08:18 Enoxaparin 40 Mg/0.4 Ml Syringe SUB-Q 40 mg DAILY JHONY Administration Fidaxomicin 200 mg 11/08/24 09:00 11/10/24 08:15 Fidaxomicin 200 Mg Tablet FEED TUBE 11/18/24 08:59 200 mg Q12HR JHONY Administration Folic Acid 1 mg 10/24/24 09:00 11/10/24 08:15 Folic Acid 1 Mg Tablet FEED TUBE 1 mg QAM JHONY Administration Glucagon 1 mg 10/17/24 21:26 Glucagon For Inj 1 Mg Vial IM PRN PRN Hypoglycemia Protocol Glucose 15 gm 10/17/24 21:26 Glucose Oral Gel 15 Gm Of Glucse In 37.5 Gm Tube PO PRN PRN Hypoglycemia Protocol Dextrose 1,000 mls @ 100 mls/hr 10/17/24 21:26 Dextrose 5% 1,000 Ml IVPB PRN PRN Hypoglycemia Protocol Midazolam HCl 100 mg in 100 mls @ 0 mls/hr 11/08/24 07:35 11/10/24 07:00 Versed 100 Mg/Ns 100 Ml IV CONT 0 mg/hr .Q0M JHONY 0 mls/hr Titration Protocol 0 MG/HR Norepinephrine Bitartrate 8 mg in 250 mls @ 0 mls/hr 11/08/24 08:05 11/10/24 06:01 Levophed 8 Mg/D5w 250 Ml IV CONT 0 mcg/min .Q0M JHONY 0 mls/hr Titration Protocol 0 MCG/MIN Meropenem 1 gm in 100 mls @ 200 mls/hr 11/08/24 11:30 11/10/24 08:45 IVPB Infused Q12HR JHONY Infusion Dexmedetomidine HCl 400 mcg in 100 mls @ 3.795 mls/hr 11/10/24 07:55 11/10/24 08:18 Precedex 400 Mcg/100 Ml IV CONT 0.2 mcg/kg/hr .[id number] JHONY 3.8 mls/hr Administration Protocol 0.2 MCG/KG/HR Insulin Aspart 3 - 6 units 11/08/24 12:00 11/10/24 07:29 Insulin Aspart (*Bkc) 100 Units/Ml SUB-Q Not Given Q6HR JHONY Protocol Midazolam HCl 2 mg 11/08/24 07:35 Midazolam Hcl (*Crx) 2 Mg/2 Ml Vial IV PUSH Q5M PRN ventilator asynchrony Multi-Ingred Cream/Lotion/Oil/Oint 1 applic 11/08/24 09:00 11/10/24 08:16 Mineral Oil/White Petrolatum Ointment EACH EYE 1 applic Q12HR JHONY Administration Pantoprazole Sodium 40 mg 10/18/24 21:00 11/10/24 08:16 Pantoprazole Sodium Iv 40 Mg Vial IV PUSH 40 mg Q12HR JHONY Administration Rosuvastatin Calcium 10 mg 11/04/24 09:00 11/07/24 09:08 Rosuvastatin 10 Mg Tablet FEED TUBE Not Given DAILY JHONY Saccharomyces Boulardii 250 mg 11/05/24 09:00 11/10/24 08:15 Saccharomyces Boulardii 250 Mg Capsule PO 250 mg DAILY JHONY Administration Sodium Chloride 10 ml 11/08/24 14:00 11/10/24 06:02 Central Line Flush IV PUSH 10 ml Q8HR JHONY Administration Sodium Chloride 10 ml 11/08/24 08:15 Central Line Flush IV PUSH PRN PRN with TPN bag changes Sodium Chloride 20 ml 11/08/24 08:15 11/10/24 06:02 Central Line Flush IV PUSH 20 ml PRN PRN Administration after blood draws Thiamine HCl 100 mg 10/24/24 09:00 11/10/24 08:15 Thiamine Hcl 100 Mg Tablet FEED TUBE 100 mg QAM JHONY Administration Radiology Results: ITS Impressions Face CT 10/19/24 09:39 IMPRESSION: 1. Extensive sinus disease with near complete opacification of the right maxillary sinus and dependently layering fluid in the bilateral sphenoid sinuses. Correlate clinically for acute sinusitis. 2. Dental and periodontal disease with periapical lucency surrounding the posterior most remaining right maxillary molar. Renal Ultrasound 10/19/24 09:48 IMPRESSION: No hydronephrosis or renal calculi. No parenchymal findings to suggest the presence of medical renal disease. Simple cysts within the right kidney, for which no further follow-up is needed. Brain MRI 10/24/24 14:22 IMPRESSION: 1. Age-related changes the brain. No acute intracranial process. 2. Prominent sinus disease with fluid nearly filling the right maxillary sinus and layering dependently in the bilateral sphenoid sinuses. Correlate clinically for acute sinusitis. Lumbar Puncture Fluoroscopy 10/31/24 17:34 IMPRESSION: 1. Successful fluoro-guided lumbar puncture with mildly elevated opening pressure of 23 cm water. Modified Barium Swallow 11/06/24 10:05 IMPRESSION: Nondiagnostic study as all contents either leaked or were actively expelled from the mouth. No swallows were able to be evaluated. Please correlate with speech pathologist findings and specific feeding recommendations. Abdomen X-Ray 11/08/24 07:55 Impression: NG tube in satisfactory position. Probable small bowel obstruction. Head CT 11/08/24 09:52 IMPRESSION: No acute intracranial findings. Chest/Abdomen/Pelvis CT 11/08/24 09:59 IMPRESSION: CHEST: 1. Right basilar atelectasis versus pneumonia with pleural effusion. 2. No other acute cardiopulmonary pathology. ABDOMEN/PELVIS: 1. Free air is seen anteriorly around the liver with minimal fluid. 2. Significant ascites in the pelvis. Drainage tube is seen in the left side of the pelvis. 3. Cholelithiasis with thickened wall of the gallbladder. Evaluation for cholecystitis advised. 4. Slightly dilated small bowel loops in the left upper abdomen which may indicate ileus follow-up advised. 5. Right renal cysts. Upper GI Series 11/09/24 13:49 IMPRESSION: 1. Left lower quadrant jejunostomy tube in expected position with injected contrast opacifying the normal-appearing jejunum with no extraluminal leakage of contrast. Chest X-Ray 11/10/24 07:12 IMPRESSION: 1. Small lung volumes with no other acute cardiopulmonary disease. Labs Labs: Laboratory Results - last 24 hr 10/31/24 11/06/24 11/09/24 16:46 18:42 12:01 WBC RBC Hgb Hct MCV MCH MCHC RDW Plt Count MPV Puncture Site ABG pH ABG pCO2 ABG pO2 ABG PO2/FiO2 Ratio ABG HCO3 ABG O2 Saturation ABG O2 Content ABG Base Excess A-a Gradient Oxyhemoglobin Carboxyhemoglobin Methemoglobin Reduced Hemoglobin Total Hemoglobin O2 Delivery Device O2 Liters/Min Minute Volume Vent Rate Vent Mode FiO2 Tidal Volume PEEP Peak Inspir Pressure Pressure Support Sodium Potassium Chloride Carbon Dioxide Anion Gap BUN Creatinine Estim Creat Clear Calc Estimated GFR Glucose POC Capillary Glucose 119 H Calcium Phosphorus Magnesium Total Bilirubin AST ALT Alkaline Phosphatase Total Protein Albumin CSF Lyme IgG (Immblot) Band(s) present A CSF Lyme IgM (Immblot) No bands detected Lyme IgG Bands Present 41kd Cryptococcus Source Cerebrospinal fluid Cryptococcus Ag Not detected Crossmatch See Detail 11/09/24 11/09/24 11/10/24 18:42 18:45 00:28 WBC RBC Hgb 7.7 L Hct 23.1 L MCV MCH MCHC RDW Plt Count MPV Puncture Site ABG pH ABG pCO2 ABG pO2 ABG PO2/FiO2 Ratio ABG HCO3 ABG O2 Saturation ABG O2 Content ABG Base Excess A-a Gradient Oxyhemoglobin Carboxyhemoglobin Methemoglobin Reduced Hemoglobin Total Hemoglobin O2 Delivery Device O2 Liters/Min Minute Volume Vent Rate Vent Mode FiO2 Tidal Volume PEEP Peak Inspir Pressure Pressure Support Sodium Potassium Chloride Carbon Dioxide Anion Gap BUN Creatinine Estim Creat Clear Calc Estimated GFR Glucose POC Capillary Glucose 106 H 114 H Calcium Phosphorus Magnesium Total Bilirubin AST ALT Alkaline Phosphatase Total Protein Albumin CSF Lyme IgG (Immblot) CSF Lyme IgM (Immblot) Lyme IgG Bands Present Cryptococcus Source Cryptococcus Ag Crossmatch 11/10/24 11/10/24 04:46 05:43 WBC 9.7 RBC 2.53 L Hgb 7.4 L Hct 22.3 L MCV 88.1 MCH 29.2 MCHC 33.2 RDW 18.8 H Plt Count 304 MPV 10.4 Puncture Site Right radial ABG pH 7.516 H* ABG pCO2 30.5 L ABG pO2 108.2 H ABG PO2/FiO2 Ratio 4.33 ABG HCO3 24.1 ABG O2 Saturation 98.4 ABG O2 Content 12.4 L ABG Base Excess 1.5 A-a Gradient 33.8 Oxyhemoglobin 97.7 Carboxyhemoglobin 0.2 Methemoglobin 0.1 Reduced Hemoglobin 2.0 Total Hemoglobin 8.9 L O2 Delivery Device Ventilator O2 Liters/Min Not Reportable Minute Volume Not Reportable Vent Rate 16 Vent Mode Cmv FiO2 25 Tidal Volume 400 PEEP 5 Peak Inspir Pressure Not Reportable Pressure Support Not Reportable Sodium 136 L Potassium 3.5 Chloride 104 Carbon Dioxide 24 Anion Gap 8 BUN 30 H Creatinine 1.33 H Estim Creat Clear Calc 45 Estimated GFR 53 L Glucose 100 POC Capillary Glucose Calcium 8.3 L Phosphorus 4.3 Magnesium 1.9 Total Bilirubin 1.2 AST 48 ALT 19 Alkaline Phosphatase 92 Total Protein 6.3 Albumin 2.8 L CSF Lyme IgG (Immblot) CSF Lyme IgM (Immblot) Lyme IgG Bands Present Cryptococcus Source Cryptococcus Ag Crossmatch Quality VTE Prophylaxis VTE prophylaxis: mechanical ordered
--- NOTE | 2024-11-10 12:10 | P.PN_ITS ---
Progress Note: A&P Assessment and Plan (1) Shock: Code(s): R57.9 - Shock, unspecified Status: Acute Assessment and Plan: Patient remains intensive care unit on ventilator with pressor support. Source of the sepsis could be aspiration pneumonia verses urosepsis. That appeared had abdominal component to the sepsis. No leaking from around the J-tube site at the skin and no leak of tube feeds into the abdomen. Patient is tolerating tube feeds without any issues and stool output per the rectal tube is copious. Continue supportive management as per [facility] specialist Service. Surgery will follow peripherally. Okay to advance tube feeds to goal rate as tolerated. Subjective Date/time seen: 11/10/24 12:10 Interval history: Patient remains intubated and sedated. Her current blood pressure is around 90 to 95 systolic. Suspicion is he has either aspiration pneumonia or urosepsis. Does not appear to have abdominal sepsis. He had an open jejunostomy tube placement by Dr. Ortiz [address] scan abdomen pelvis showed no abdominal source of sepsis and no tube feeds in the abdomen. Dye study of the tube shows no extravasation of dye from the small bowel. Patient seems to be tolerating tube feeds at current rate with no residuals. He continues to have copious amounts of liquid stool per his rectal tube. Exam GI: Other: Abdomen is soft and nondistended. Midline incision is intact without any redness or drainage. J-tube site is dry with dressing in place. Objective Data Vital Signs Vital Signs: Vital Signs - 24 hr 11/09/24 12:23 11/09/24 12:40 11/09/24 12:43 Temperature 36.9 C Pulse Rate 81 76 77 Respiratory Rate 16 Blood Pressure 127/80 116/74 116/74 Pulse Oximetry 100 Oxygen Delivery Fraction of Inspired Oxygen 11/09/24 12:44 11/09/24 13:00 11/09/24 13:30 Temperature 36.9 C Pulse Rate 76 83 85 Respiratory Rate 16 Blood Pressure 103/70 85/61 L 89/62 L Pulse Oximetry 100 Oxygen Delivery Fraction of Inspired Oxygen 11/09/24 13:40 11/09/24 13:45 11/09/24 14:00 Temperature Pulse Rate 87 80 76 Respiratory Rate 14 Blood Pressure 129/82 128/71 Pulse Oximetry 100 100 Oxygen Delivery Mechanical Ventilation Fraction of Inspired Oxygen 11/09/24 14:00 11/09/24 14:00 11/09/24 16:00 Temperature 37.0 C Pulse Rate 76 79 79 Respiratory Rate 16 16 Blood Pressure 121/78 129/71 Pulse Oximetry 100 Oxygen Delivery Fraction of Inspired Oxygen 11/09/24 16:00 11/09/24 16:00 11/09/24 16:00 Temperature Pulse Rate 74 74 Respiratory Rate 16 Blood Pressure 122/72 Pulse Oximetry Oxygen Delivery Fraction of Inspired Oxygen 25 11/09/24 16:00 11/09/24 16:00 11/09/24 17:00 Temperature Pulse Rate 78 75 73 Respiratory Rate 16 Blood Pressure 124/70 Pulse Oximetry 100 Oxygen Delivery Mechanical Ventilation Fraction of Inspired Oxygen 11/09/24 17:14 11/09/24 17:58 11/09/24 17:58 Temperature Pulse Rate 77 99 76 Respiratory Rate 22 H Blood Pressure 121/71 Pulse Oximetry 100 Oxygen Delivery Mechanical Ventilation Fraction of Inspired Oxygen 11/09/24 18:00 11/09/24 18:00 11/09/24 18:30 Temperature 36.4 C Pulse Rate 73 73 75 Respiratory Rate 16 16 16 Blood Pressure 113/65 113/65 Pulse Oximetry 100 100 Oxygen Delivery Fraction of Inspired Oxygen 11/09/24 19:00 11/09/24 19:01 11/09/24 19:15 Temperature 36.4 C L 36.4 C L 36.3 C L Pulse Rate 73 72 73 Respiratory Rate 16 16 16 Blood Pressure 113/67 118/69 Pulse Oximetry 100 100 100 Oxygen Delivery Fraction of Inspired Oxygen 11/09/24 19:16 11/09/24 19:28 11/09/24 19:30 Temperature 36.3 C L 36.3 C L Pulse Rate 73 74 75 Respiratory Rate 16 16 Blood Pressure 118/69 115/66 Pulse Oximetry 100 100 Oxygen Delivery Fraction of Inspired Oxygen 11/09/24 19:31 11/09/24 19:43 11/09/24 19:45 Temperature 36.3 C L 36.3 C L Pulse Rate 75 78 78 Respiratory Rate 16 15 Blood Pressure 115/66 107/68 Pulse Oximetry 100 100 Oxygen Delivery Fraction of Inspired Oxygen 11/09/24 19:46 11/09/24 19:56 11/09/24 20:00 Temperature 36.3 C L Pulse Rate 77 79 77 Respiratory Rate 16 18 Blood Pressure Pulse Oximetry 100 100 Oxygen Delivery Mechanical Ventilation Fraction of Inspired Oxygen 11/09/24 20:00 11/09/24 20:00 11/09/24 20:00 Temperature 36.3 C L 36.3 C L Pulse Rate 77 77 78 Respiratory Rate 18 16 Blood Pressure 96/66 L 96/66 L 96/66 L Pulse Oximetry 100 100 Oxygen Delivery Fraction of Inspired Oxygen 11/09/24 20:01 11/09/24 20:15 11/09/24 20:16 Temperature 36.3 C L 36.2 C L 36.2 C L Pulse Rate 78 78 77 Respiratory Rate 16 16 16 Blood Pressure 108/68 Pulse Oximetry 100 100 100 Oxygen Delivery Fraction of Inspired Oxygen 11/09/24 20:30 11/09/24 20:30 11/09/24 20:30 Temperature Pulse Rate 78 Respiratory Rate 16 Blood Pressure Pulse Oximetry 100 Oxygen Delivery Mechanical Ventilation Fraction of Inspired Oxygen 11/09/24 20:30 11/09/24 20:31 11/09/24 20:45 Temperature 36.2 C L 36.2 C L 36.2 C L Pulse Rate 75 75 77 Respiratory Rate 16 16 16 Blood Pressure 116/71 112/72 Pulse Oximetry 100 100 100 Oxygen Delivery Fraction of Inspired Oxygen 11/09/24 20:46 11/09/24 21:00 11/09/24 21:01 Temperature 36.2 C L 36.1 C L 36.1 C L Pulse Rate 76 74 73 Respiratory Rate 16 16 16 Blood Pressure 107/64 Pulse Oximetry 100 100 100 Oxygen Delivery Fraction of Inspired Oxygen 11/09/24 21:15 11/09/24 21:16 11/09/24 21:30 Temperature 36.1 C L 36.1 C L 36.0 C L Pulse Rate 71 74 73 Respiratory Rate 16 16 16 Blood Pressure 102/62 106/64 Pulse Oximetry 100 100 100 Oxygen Delivery Fraction of Inspired Oxygen 11/09/24 21:31 11/09/24 21:45 11/09/24 21:46 Temperature 36.0 C L 36.0 C L 36.0 C L Pulse Rate 73 71 71 Respiratory Rate 17 17 16 Blood Pressure 100/67 Pulse Oximetry 100 100 100 Oxygen Delivery Fraction of Inspired Oxygen 11/09/24 22:00 11/09/24 22:00 11/09/24 22:00 Temperature 36.0 C L Pulse Rate 72 72 74 Respiratory Rate 16 17 Blood Pressure 100/69 100/69 Pulse Oximetry 100 Oxygen Delivery Fraction of Inspired Oxygen 11/09/24 22:01 11/09/24 22:15 11/09/24 22:16 Temperature 36.0 C L 36.0 C L 36.0 C L Pulse Rate 74 73 74 Respiratory Rate 16 16 16 Blood Pressure 95/66 L Pulse Oximetry 100 100 100 Oxygen Delivery Fraction of Inspired Oxygen 11/09/24 22:30 11/09/24 22:31 11/09/24 22:45 Temperature 36.0 C L 36.0 C L 36.1 C L Pulse Rate 75 74 72 Respiratory Rate 14 14 16 Blood Pressure 104/65 95/66 L Pulse Oximetry 100 100 100 Oxygen Delivery Fraction of Inspired Oxygen 11/09/24 22:46 11/09/24 23:00 11/09/24 23:01 Temperature 36.1 C L 36.1 C L 36.1 C L Pulse Rate 72 72 73 Respiratory Rate 18 16 16 Blood Pressure 103/63 Pulse Oximetry 100 100 100 Oxygen Delivery Fraction of Inspired Oxygen 11/09/24 23:19 11/10/24 00:00 11/10/24 00:00 Temperature 36.1 C L Pulse Rate 74 73 73 Respiratory Rate 16 Blood Pressure 103/68 103/68 Pulse Oximetry 100 100 Oxygen Delivery Mechanical Ventilation Fraction of Inspired Oxygen 11/10/24 00:00 11/10/24 00:00 11/10/24 00:00 Temperature Pulse Rate 75 Respiratory Rate Blood Pressure Pulse Oximetry 100 Oxygen Delivery Mechanical Ventilation Fraction of Inspired Oxygen 11/10/24 00:10 11/10/24 01:59 11/10/24 02:00 Temperature 36.0 C L Pulse Rate 73 70 70 Respiratory Rate 16 17 Blood Pressure 106/63 Pulse Oximetry 100 100 Oxygen Delivery Mechanical Ventilation Fraction of Inspired Oxygen 11/10/24 02:00 11/10/24 02:00 11/10/24 03:51 Temperature Pulse Rate 70 70 Respiratory Rate 17 Blood Pressure 106/63 Pulse Oximetry Oxygen Delivery Fraction of Inspired Oxygen 11/10/24 04:00 11/10/24 04:00 11/10/24 04:00 Temperature 36.2 C L Pulse Rate 70 70 Respiratory Rate 16 16 Blood Pressure 98/61 L Pulse Oximetry 100 100 Oxygen Delivery Mechanical Ventilation Fraction of Inspired Oxygen 11/10/24 04:00 11/10/24 04:00 11/10/24 04:48 Temperature Pulse Rate 70 71 71 Respiratory Rate Blood Pressure 98/61 L Pulse Oximetry 100 Oxygen Delivery Mechanical Ventilation Fraction of Inspired Oxygen 25 11/10/24 06:00 11/10/24 06:01 11/10/24 06:01 Temperature 36.2 C L Pulse Rate 72 72 71 Respiratory Rate 16 16 Blood Pressure 102/70 102/70 Pulse Oximetry 100 Oxygen Delivery Fraction of Inspired Oxygen 11/10/24 07:00 11/10/24 07:54 11/10/24 08:00 Temperature 36.3 C L Pulse Rate 73 73 73 Respiratory Rate 16 17 16 Blood Pressure 107/67 Pulse Oximetry 100 100 Oxygen Delivery Mechanical Ventilation Fraction of Inspired Oxygen 25 11/10/24 08:00 11/10/24 08:00 11/10/24 08:00 Temperature Pulse Rate 74 76 Respiratory Rate 16 Blood Pressure Pulse Oximetry Oxygen Delivery Fraction of Inspired Oxygen 25 11/10/24 08:00 11/10/24 08:18 11/10/24 08:23 Temperature Pulse Rate 76 73 73 Respiratory Rate 16 Blood Pressure 103/69 Pulse Oximetry 100 Oxygen Delivery Mechanical Ventilation Fraction of Inspired Oxygen 25 11/10/24 10:00 11/10/24 10:00 11/10/24 10:00 Temperature 36.3 C L Pulse Rate 74 71 72 Respiratory Rate 17 16 Blood Pressure 103/69 Pulse Oximetry 100 Oxygen Delivery Fraction of Inspired Oxygen 11/10/24 11:16 11/10/24 11:55 Temperature 36.4 C L Pulse Rate 74 70 Respiratory Rate 16 Blood Pressure 85/56 L Pulse Oximetry 100 100 Oxygen Delivery Mechanical Ventilation Fraction of Inspired Oxygen 25 Intake/Output Intake/Output: Intake & Output 11/07/24 11/08/24 11/09/24 11/10/24 23:59 23:59 23:59 23:59 Intake Total 600 2091.6 1512.1 508.0 Output Total 5990 223 5893 1700 Balance -1150 1116.6 -37.9 -1192.0 Meds/Results Medications: Active Medications Generic Name Dose Route Start Last Admin Trade Name Freq PRN Reason Stop Dose Admin Aspirin 81 mg 11/04/24 08:00 11/10/24 08:15 Aspirin 81 Mg Chewable Tablet FEED TUBE 81 mg DAILY@0800 JHONY Administration Dextrose 12.5 gm 10/17/24 21:26 10/30/24 05:55 Dextrose 50% 25 Gm/50 Ml Syringe IV PUSH 12.5 gm PRN PRN Administration Hypoglycemia Protocol Enoxaparin Sodium 40 mg 11/02/24 09:00 11/09/24 08:18 Enoxaparin 40 Mg/0.4 Ml Syringe SUB-Q 40 mg DAILY JHONY Administration Fidaxomicin 200 mg 11/08/24 09:00 11/10/24 08:15 Fidaxomicin 200 Mg Tablet FEED TUBE 11/18/24 08:59 200 mg Q12HR JHONY Administration Folic Acid 1 mg 10/24/24 09:00 11/10/24 08:15 Folic Acid 1 Mg Tablet FEED TUBE 1 mg QAM JHONY Administration Glucagon 1 mg 10/17/24 21:26 Glucagon For Inj 1 Mg Vial IM PRN PRN Hypoglycemia Protocol Glucose 15 gm 10/17/24 21:26 Glucose Oral Gel 15 Gm Of Glucse In 37.5 Gm Tube PO PRN PRN Hypoglycemia Protocol Dextrose 1,000 mls @ 100 mls/hr 10/17/24 21:26 Dextrose 5% 1,000 Ml IVPB PRN PRN Hypoglycemia Protocol Midazolam HCl 100 mg in 100 mls @ 0 mls/hr 11/08/24 07:35 11/10/24 10:00 Versed 100 Mg/Ns 100 Ml IV CONT 0 mg/hr .Q0M JHONY 0 mls/hr Titration Protocol 0 MG/HR Norepinephrine Bitartrate 8 mg in 250 mls @ 0 mls/hr 11/08/24 08:05 11/10/24 10:00 Levophed 8 Mg/D5w 250 Ml IV CONT 0 mcg/min .Q0M JHONY 0 mls/hr Titration Protocol 0 MCG/MIN Meropenem 1 gm in 100 mls @ 200 mls/hr 11/08/24 11:30 11/10/24 08:45 IVPB Infused Q12HR JHONY Infusion Dexmedetomidine HCl 400 mcg in 100 mls @ 3.795 mls/hr 11/10/24 07:55 11/10/24 08:18 Precedex 400 Mcg/100 Ml IV CONT 0.2 mcg/kg/hr .[id number] JHONY 3.8 mls/hr Administration Protocol 0.2 MCG/KG/HR Insulin Aspart 3 - 6 units 11/08/24 12:00 11/10/24 11:53 Insulin Aspart (*Bkc) 100 Units/Ml SUB-Q Not Given Q6HR [facility] Protocol Midazolam HCl 2 mg 11/08/24 07:35 Midazolam Hcl (*Crx) 2 Mg/2 Ml Vial IV PUSH Q5M PRN ventilator asynchrony Multi-Ingred Cream/Lotion/Oil/Oint 1 applic 11/08/24 09:00 11/10/24 08:16 Mineral Oil/White Petrolatum Ointment EACH EYE 1 applic Q12HR JHONY Administration Pantoprazole Sodium 40 mg 10/18/24 21:00 11/10/24 08:16 Pantoprazole Sodium Iv 40 Mg Vial IV PUSH 40 mg Q12HR JHONY Administration Rosuvastatin Calcium 10 mg 11/04/24 09:00 11/07/24 09:08 Rosuvastatin 10 Mg Tablet FEED TUBE Not Given DAILY JHONY Saccharomyces Boulardii 250 mg 11/05/24 09:00 11/10/24 08:15 Saccharomyces Boulardii 250 Mg Capsule PO 250 mg DAILY JHONY Administration Sodium Chloride 10 ml 11/08/24 14:00 11/10/24 06:02 Central Line Flush IV PUSH 10 ml Q8HR JHONY Administration Sodium Chloride 10 ml 11/08/24 08:15 Central Line Flush IV PUSH PRN PRN with TPN bag changes Sodium Chloride 20 ml 11/08/24 08:15 11/10/24 06:02 Central Line Flush IV PUSH 20 ml PRN PRN Administration after blood draws Thiamine HCl 100 mg 10/24/24 09:00 11/10/24 08:15 Thiamine Hcl 100 Mg Tablet FEED TUBE 100 mg QAM JHONY Administration Radiology Results: ITS Impressions Face CT 10/19/24 09:39 IMPRESSION: 1. Extensive sinus disease with near complete opacification of the right maxillary sinus and dependently layering fluid in the bilateral sphenoid sinuses. Correlate clinically for acute sinusitis. 2. Dental and periodontal disease with periapical lucency surrounding the posterior most remaining right maxillary molar. Renal Ultrasound 10/19/24 09:48 IMPRESSION: No hydronephrosis or renal calculi. No parenchymal findings to suggest the presence of medical renal disease. Simple cysts within the right kidney, for which no further follow-up is needed. Brain MRI 10/24/24 14:22 IMPRESSION: 1. Age-related changes the brain. No acute intracranial process. 2. Prominent sinus disease with fluid nearly filling the right maxillary sinus and layering dependently in the bilateral sphenoid sinuses. Correlate clinically for acute sinusitis. Lumbar Puncture Fluoroscopy 10/31/24 17:34 IMPRESSION: 1. Successful fluoro-guided lumbar puncture with mildly elevated opening pressure of 23 cm water. Modified Barium Swallow 11/06/24 10:05 IMPRESSION: Nondiagnostic study as all contents either leaked or were actively expelled from the mouth. No swallows were able to be evaluated. Please correlate with speech pathologist findings and specific feeding recommendations. Abdomen X-Ray 11/08/24 07:55 Impression: NG tube in satisfactory position. Probable small bowel obstruction. Head CT 11/08/24 09:52 IMPRESSION: No acute intracranial findings. Chest/Abdomen/Pelvis CT 11/08/24 09:59 IMPRESSION: CHEST: 1. Right basilar atelectasis versus pneumonia with pleural effusion. 2. No other acute cardiopulmonary pathology. ABDOMEN/PELVIS: 1. Free air is seen anteriorly around the liver with minimal fluid. 2. Significant ascites in the pelvis. Drainage tube is seen in the left side of the pelvis. 3. Cholelithiasis with thickened wall of the gallbladder. Evaluation for cholecystitis advised. 4. Slightly dilated small bowel loops in the left upper abdomen which may indicate ileus follow-up advised. 5. Right renal cysts. Upper GI Series 11/09/24 13:49 IMPRESSION: 1. Left lower quadrant jejunostomy tube in expected position with injected contrast opacifying the normal-appearing jejunum with no extraluminal leakage of contrast. Chest X-Ray 11/10/24 07:12 IMPRESSION: 1. Small lung volumes with no other acute cardiopulmonary disease. Labs Labs: Laboratory Results - last 24 hr 10/31/24 11/06/24 11/09/24 16:46 18:42 18:42 WBC RBC Hgb Hct MCV MCH MCHC RDW Plt Count MPV Puncture Site ABG pH ABG pCO2 ABG pO2 ABG PO2/FiO2 Ratio ABG HCO3 ABG O2 Saturation ABG O2 Content ABG Base Excess A-a Gradient Oxyhemoglobin Carboxyhemoglobin Methemoglobin Reduced Hemoglobin Total Hemoglobin O2 Delivery Device O2 Liters/Min Minute Volume Vent Rate Vent Mode FiO2 Tidal Volume PEEP Peak Inspir Pressure Pressure Support Sodium Potassium Chloride Carbon Dioxide Anion Gap BUN Creatinine Estim Creat Clear Calc Estimated GFR Glucose POC Capillary Glucose 106 H Calcium Phosphorus Magnesium Total Bilirubin AST ALT Alkaline Phosphatase Total Protein Albumin CSF Lyme IgG (Immblot) Band(s) present A CSF Lyme IgM (Immblot) No bands detected Lyme IgG Bands Present 41kd Cryptococcus Source Cerebrospinal fluid Cryptococcus Ag Not detected Crossmatch See Detail 11/09/24 11/10/24 11/10/24 18:45 00:28 04:46 WBC RBC Hgb 7.7 L Hct 23.1 L MCV MCH MCHC RDW Plt Count MPV Puncture Site Right radial ABG pH 7.516 H* ABG pCO2 30.5 L ABG pO2 108.2 H ABG PO2/FiO2 Ratio 4.33 ABG HCO3 24.1 ABG O2 Saturation 98.4 ABG O2 Content 12.4 L ABG Base Excess 1.5 A-a Gradient 33.8 Oxyhemoglobin 97.7 Carboxyhemoglobin 0.2 Methemoglobin 0.1 Reduced Hemoglobin 2.0 Total Hemoglobin 8.9 L O2 Delivery Device Ventilator O2 Liters/Min Not Reportable Minute Volume Not Reportable Vent Rate 16 Vent Mode Cmv FiO2 25 Tidal Volume 400 PEEP 5 Peak Inspir Pressure Not Reportable Pressure Support Not Reportable Sodium Potassium Chloride Carbon Dioxide Anion Gap BUN Creatinine Estim Creat Clear Calc Estimated GFR Glucose POC Capillary Glucose 114 H Calcium Phosphorus Magnesium Total Bilirubin AST ALT Alkaline Phosphatase Total Protein Albumin CSF Lyme IgG (Immblot) CSF Lyme IgM (Immblot) Lyme IgG Bands Present Cryptococcus Source Cryptococcus Ag Crossmatch 11/10/24 11/10/24 05:43 11:33 WBC 9.7 RBC 2.53 L Hgb 7.4 L Hct 22.3 L MCV 88.1 MCH 29.2 MCHC 33.2 RDW 18.8 H Plt Count 304 MPV 10.4 Puncture Site ABG pH ABG pCO2 ABG pO2 ABG PO2/FiO2 Ratio ABG HCO3 ABG O2 Saturation ABG O2 Content ABG Base Excess A-a Gradient Oxyhemoglobin Carboxyhemoglobin Methemoglobin Reduced Hemoglobin Total Hemoglobin O2 Delivery Device O2 Liters/Min Minute Volume Vent Rate Vent Mode FiO2 Tidal Volume PEEP Peak Inspir Pressure Pressure Support Sodium 136 L Potassium 3.5 Chloride 104 Carbon Dioxide 24 Anion Gap 8 BUN 30 H Creatinine 1.33 H Estim Creat Clear Calc 45 Estimated GFR 53 L Glucose 100 POC Capillary Glucose 97 Calcium 8.3 L Phosphorus 4.3 Magnesium 1.9 Total Bilirubin 1.2 AST 48 ALT 19 Alkaline Phosphatase 92 Total Protein 6.3 Albumin 2.8 L CSF Lyme IgG (Immblot) CSF Lyme IgM (Immblot) Lyme IgG Bands Present Cryptococcus Source Cryptococcus Ag Crossmatch
[2024-11-11] VITALS (43 sets, daily range): BP systolic 89–148; BP diastolic 58–95; PULSE 68–92; RESP 16–28; TEMP 37–37.4; O2SAT 96–100
[2024-11-11] MEDS: dexmedeTOMIDine 400 MCG/100 ML 400 MCG/100 ML BAG 7.59 MCG IV CONT (04:02)
[2024-11-11 05:30] LABS: Alveolar/Arterial O2 Gradient 80.7 mmHg; Carboxyhemoglobin 0.3 % THb (0-2.0); Fractional Inspired Oxygen 25 %; HCO3 ABG 23.2 mEq/l (22.0-26.0); Methemoglobin ABG 0.3 %THb (0-1.5); Modified Allen's Test Unable to perform; Oxygen Content ABG 11.4 %vol (16.0-22.0); Oxygen Saturation ABG 93.5 % (95.0-100.0); PCO2 ABG 30.9 mmHg (35.0-45.0); PO2 ABG 60.9 mmHg (80.0-100.0); PO2 FiO2 Ratio Arterial Blood 2.44 %; Reduced Hemoglobin 8.1 %THb (0-5.0); Site Drawn RIGHT RADIAL
[2024-11-11 05:31] LABS: Arterial Blood Gas Tidal Volume 350 ml; Arterial Blood Gas Ventilator rate 16 /MIN
[2024-11-11 06:36] LABS: Hematocrit 23.9 % (42.0-52.0); Hemoglobin 7.8 g/dL (14.0-18.0); Mean Corpuscular HGB Conc 32.6 g/dl (32-36); Mean Corpuscular Hemoglobin 29.4 pg (26-34); Mean Corpuscular Volume 90.2 fl (80-100); Platelet Count Result 347 k/mm3 (150-375); Red Blood Count 2.65 M/mm3 (4.6-6.20); White Blood Count 9.6 K/mm3 (4.5-10.0)
[2024-11-11] MEDS: CENTRAL LINE FLUSH 10 ML IV PUSH ×3 (06:50→20:12)
[2024-11-11] MEDS: CENTRAL LINE FLUSH 20 ML IV PUSH (06:50)
[2024-11-11 06:57] LABS: Alanine Aminotransferase 16 U/L (6-50); Albumin Level 2.8 g/dL (3.5-5.1); Alkaline Phosphatase 98 U/L (38-126); Anion Gap 9 mmol/L (4-12); Aspartate Amino Transferase 38 U/L (17-59); Bilirubin,Total 0.9 mg/dL (0.2-1.3); Blood Urea Nitrogen 28 mg/dL (9-20); Calcium 8.7 mg/dL (8.4-10.2); Carbon Dioxide 22 mmol/L (22-30); Chloride 109 mmol/L (98-107); Estimated CRCL calculation 59 ml/min; Estimated Glomerular Filt Rate > 60; Glucose 118 mg/dL (65-110); Magnesium 1.7 mg/dL (1.6-2.3); Potassium 3.8 mmol/L (3.4-5.0); Sodium 140 mmol/L (137-145); Total Protein 6.6 g/dL (6.3-8.2)
--- NOTE | 2024-11-11 09:15 | WPDINTPN ---
Progress Note: A&P Assessment and Plan (1) Shock: Code(s): R57.9 - Shock, unspecified Status: Acute Assessment and Plan: Patient initially presented with septic shock which had resolved Now patient has developed new hypotension. Suspect aspiration pneumonia versus UTI as patient has had Michelle for more than 2 weeks., or persistent C diff infection CT chest abdomen pelvis ABDOMEN/PELVIS: 1. Free air is seen anteriorly around the liver with minimal fluid. 2. Significant ascites in the pelvis. Drainage tube is seen in the left side of the pelvis. 3. Cholelithiasis with thickened wall of the gallbladder. Evaluation for cholecystitis advised. 4. Slightly dilated small bowel loops in the left upper abdomen which may indicate ileus follow-up advised. 5. Right renal cysts Blood, sputum culture culture are negative till now Michelle changed and UA sent procalcitonin level 8.2 Continue Dificid and meropenem Patient was given IV fluid bolus and now off of IV fluids Off 25% albumin Off Levophed infusion (2) Metabolic encephalopathy: Code(s): G93.41 - Metabolic encephalopathy Status: Acute Assessment and Plan: Patient has had Altered mental status since admission which has been multifactorial Patient was evaluated by Neurology and suspected to have metabolic encephalopathy. -CT brain on presented was negative for intracranial abnormalities. Repeat CT scan 11/08 also unremarkable -MRI cannot be performed as patient was in the [place] and may have sharpnel exposure according to his daughter -10/19: Repeat CT brain did not show any acute intracranial hemorrhage or suspicious mass effect, inflammatory sinus disease. -10/19: CT facial bones showed extensive sinus disease with near complete opacification of the right maxillary sinus and dependently layering fluid in the bilateral sphenoid sinuses. Dental and periodontal disease with periapical lucency surrounding the posterior most remaining right maxillary molar His ammonia level was normal Patient had LP on 10/31 and and only abnormality seen was elevated protein viral studies are pending Sedation holiday Patient currently on Precedex. I will hold it this morning for a weaning trial (3) Acute kidney injury: Code(s): N17.9 - Acute kidney failure, unspecified Status: Acute Assessment and Plan: Patient presented with Acute kidney injury which improved with IV fluids Now the creatinine has again went up I suspect this is due to hypovolemia and sepsis Fully replaced CT scan reviewed Patient was given IV fluids and creatinine improving. Hold further IV fluid Although his intake and output show that he is significantly volume overloaded. He has had FMS with diarrhea which makes I&Os inaccurate. He does have minimal edema on exam Nephrology following Monitor urine output electrolytes and creatinine CK level is normal Earlier in the course CT scan of the abdomen and pelvis did not show any hydronephrosis or stones and renal ultrasound also showed No hydronephrosis or renal calculi, no apparent, findings to suggest the presence of medical renal disease. Simple cyst within the right kidney (4) Anemia: Code(s): D64.9 - Anemia, unspecified Status: Acute Assessment and Plan: Patient was anemic on presentation and received 2 units of PRBC. He was evaluate by Hematology Stool culture was negative and vitamin B12 were normal Folic acid was low and was supplement -iron panel was unremarkable He had EGD on 11/01 which showed gastritis and previous gastric surgery Hemoglobin dropped to 5.2 which could be partially dilutional versus GI loss 11/09 Transfuse 2 units PRBC Hold Lovenox and use SCDs Continue protonix Monitor hemoglobin (5) Thrombocytopenia: Code(s): D69.6 - Thrombocytopenia, unspecified Status: Acute Assessment and Plan: Thrombocytopenia that patient initially presented with has improved High platelet count at this time suggest hemoconcentration (6) Hyperkalemia: Code(s): E87.5 - Hyperkalemia Status: Acute Assessment and Plan: Hyperkalemia with ALEJANDRO Calcium gluconate, insulin and D50, bicarb Lokelma IV fluid bolus Now resolved (7) C. difficile diarrhea: Code(s): A04.72 - Enterocolitis due to Clostridium difficile, not specified as recurrent Status: Acute Assessment and Plan: Continue Dificid. Diarrhea improved. DC IV Flagyl CT abdomen pelvis reviewed (8) Acute respiratory failure: Code(s): J96.00 - Acute respiratory failure, unspecified whether with hypoxia or hypercapnia Status: Acute Assessment and Plan: Chest x-ray and ABG reviewed. Ventilator settings reviewed. I placed patient on PSV. Patient required pressure support off 10 for adequate RSBI. Will continue as tolerated and wean pressure support as possible. Plan DVT prophylaxis: SCDs, Lovenox Stress ulcer prophylaxis: Protonix IV q.12 hours Nutrition: J tube placed, tolerating tube feeds 11/08 I updated patient's daughter and sister at bedside and answered all their questions. 11/10 I spoke to patient's son by phone and updated him with patient's status. I answered all his questions and explained him the patient is critically ill with multiple issues. I also updated him and current treatment plan and overall guarded prognosis. Code Status: Full code Total Critical Care Time - 30 minutes Due to a high probability of clinically significant, life threatening deterioration, the patient required my highest level of preparedness to intervene emergently and I personally spent this critical care time directly and personally managing the patient. This critical care time included obtaining a history; examining the patient; pulse oximetry; ordering and review of studies; arranging urgent treatment with development of a management plan; evaluation of patient's response to treatment; frequent reassessment; and discussions with other providers. It was exclusive of separately billable procedures and treating other patients and teaching time. Please see Assessment and Plan section and the rest of the note for further information on patient assessment and treatment Subjective Date/time seen: 11/11/24 Overnight events reviewed. Afebrile Continues to be on mechanical ventilation 25% FiO2 Off vasopressor Continues to be sedated with Precedex Tolerating tube feeds. Vitals acceptable Review of Systems Review of Systems: ROS unobtainable: Yes unobtainable due to endotracheal tube, unobtainable due to medical condition and unobtainable due to mental status Exam Narrative: General: Pt is sedated, intubated and on mechanical ventilation Lungs/Chest: Trachea central Coarse BS B/L, few crackles on the left base Cardiac: RRR. Normal S1 S2. No murmurs Circulation: Pedal pulses are intact and symmetrical. Abdomen: Present bowel sounds. Midline incision is under dressing Soft. NT. ND. Extremities: Patient has some edema bilaterally in lower extremity : Michelle in place Neurologic: Patient is on low-dose Precedex. Patient spontaneously moves right side. On left side he withdraws to pain. He does have history of CVA in the past he does not follow commands PERRL Objective Data Vital Signs Vital Signs: Vital Signs - 24 hr 11/10/24 10:00 11/10/24 10:00 11/10/24 10:00 Temperature 36.3 C L Pulse Rate 74 71 72 Respiratory Rate 17 16 Blood Pressure 103/69 Pulse Oximetry 100 Oxygen Delivery Fraction of Inspired Oxygen 11/10/24 10:00 11/10/24 11:16 11/10/24 11:55 Temperature 36.4 C L Pulse Rate 68 74 70 Respiratory Rate 16 16 Blood Pressure 85/56 L Pulse Oximetry 100 100 Oxygen Delivery Mechanical Ventilation Fraction of Inspired Oxygen 25 11/10/24 12:00 11/10/24 12:00 11/10/24 12:00 Temperature Pulse Rate 70 68 Respiratory Rate 16 Blood Pressure 93/56 L Pulse Oximetry 100 Oxygen Delivery Mechanical Ventilation Fraction of Inspired Oxygen 25 25 11/10/24 12:00 11/10/24 12:00 11/10/24 12:00 Temperature Pulse Rate 68 68 72 Respiratory Rate 16 16 Blood Pressure Pulse Oximetry Oxygen Delivery Fraction of Inspired Oxygen 11/10/24 14:00 11/10/24 14:00 11/10/24 14:00 Temperature 36.5 C Pulse Rate 67 69 68 Respiratory Rate 16 16 Blood Pressure 91/62 L 91/62 L Pulse Oximetry 100 Oxygen Delivery Fraction of Inspired Oxygen 11/10/24 14:00 11/10/24 14:19 11/10/24 15:38 Temperature Pulse Rate 69 67 69 Respiratory Rate 16 18 Blood Pressure Pulse Oximetry 100 Oxygen Delivery Mechanical Ventilation Fraction of Inspired Oxygen 25 11/10/24 15:38 11/10/24 15:40 11/10/24 16:00 Temperature Pulse Rate 69 73 Respiratory Rate 16 Blood Pressure 88/57 L Pulse Oximetry Oxygen Delivery Fraction of Inspired Oxygen 25 11/10/24 16:00 11/10/24 16:00 11/10/24 16:00 Temperature 36.6 C 36.6 C Pulse Rate 83 83 84 Respiratory Rate 16 16 Blood Pressure 113/68 113/68 Pulse Oximetry 98 100 Oxygen Delivery Fraction of Inspired Oxygen 11/10/24 16:00 11/10/24 16:00 11/10/24 16:00 Temperature Pulse Rate 79 83 77 Respiratory Rate 16 16 Blood Pressure 126/78 Pulse Oximetry 100 Oxygen Delivery Mechanical Ventilation Fraction of Inspired Oxygen 16 11/10/24 17:35 11/10/24 18:00 11/10/24 18:00 Temperature Pulse Rate 99 72 79 Respiratory Rate 18 Blood Pressure 119/80 Pulse Oximetry 100 Oxygen Delivery Mechanical Ventilation Fraction of Inspired Oxygen 25 11/10/24 18:00 11/10/24 18:36 11/10/24 20:00 Temperature 36.9 C Pulse Rate 89 75 93 Respiratory Rate 19 16 18 Blood Pressure 103/70 103/60 Pulse Oximetry 100 100 Oxygen Delivery Fraction of Inspired Oxygen 11/10/24 20:00 11/10/24 20:00 11/10/24 20:00 Temperature Pulse Rate 73 73 Respiratory Rate 18 Blood Pressure 103/60 Pulse Oximetry 100 Oxygen Delivery Mechanical Ventilation Fraction of Inspired Oxygen 11/10/24 20:00 11/10/24 20:00 11/10/24 20:10 Temperature Pulse Rate 72 72 Respiratory Rate Blood Pressure Pulse Oximetry 100 Oxygen Delivery Mechanical Ventilation Fraction of Inspired Oxygen 11/10/24 21:13 11/10/24 21:30 11/10/24 21:40 Temperature 37.0 C Pulse Rate 79 87 87 Respiratory Rate 21 H 19 Blood Pressure 138/82 Pulse Oximetry Oxygen Delivery Fraction of Inspired Oxygen 11/10/24 22:00 11/10/24 22:00 11/10/24 22:00 Temperature 37.1 C Pulse Rate 72 69 72 Respiratory Rate 21 H Blood Pressure 80/50 L 80/50 L Pulse Oximetry 96 Oxygen Delivery Fraction of Inspired Oxygen 11/10/24 22:00 11/10/24 22:16 11/10/24 22:32 Temperature Pulse Rate 72 83 85 Respiratory Rate 16 Blood Pressure 88/60 L 105/65 Pulse Oximetry Oxygen Delivery Fraction of Inspired Oxygen 11/10/24 22:51 11/10/24 22:54 11/10/24 23:00 Temperature 37.2 C 37.2 C Pulse Rate 84 83 85 Respiratory Rate 16 19 Blood Pressure 104/67 Pulse Oximetry 98 Oxygen Delivery Mechanical Ventilation Fraction of Inspired Oxygen 11/10/24 23:01 11/10/24 23:15 11/10/24 23:16 Temperature 37.2 C 37.2 C 37.2 C Pulse Rate 86 85 84 Respiratory Rate 16 21 H 19 Blood Pressure 106/70 Pulse Oximetry Oxygen Delivery Fraction of Inspired Oxygen 11/10/24 23:30 11/10/24 23:31 11/10/24 23:45 Temperature 37.2 C 37.2 C 37.2 C Pulse Rate 83 83 81 Respiratory Rate 18 18 22 H Blood Pressure 103/66 104/67 Pulse Oximetry Oxygen Delivery Fraction of Inspired Oxygen 11/10/24 23:46 11/11/24 00:00 11/11/24 00:00 Temperature 37.2 C Pulse Rate 82 75 75 Respiratory Rate 22 H 18 Blood Pressure 123/73 Pulse Oximetry Oxygen Delivery Fraction of Inspired Oxygen 11/11/24 00:00 11/11/24 00:00 11/11/24 00:00 Temperature Pulse Rate 74 Respiratory Rate Blood Pressure Pulse Oximetry 100 Oxygen Delivery Mechanical Ventilation Fraction of Inspired Oxygen 11/11/24 00:00 11/11/24 00:00 11/11/24 00:01 Temperature 37.2 C 37.2 C 37.2 C Pulse Rate 75 75 76 Respiratory Rate 18 21 H 24 H Blood Pressure 123/73 123/73 Pulse Oximetry 100 Oxygen Delivery Fraction of Inspired Oxygen 11/11/24 00:15 11/11/24 00:16 11/11/24 00:30 Temperature 37.1 C 37.2 C 37.3 C Pulse Rate 77 75 72 Respiratory Rate 25 H 20 18 Blood Pressure 119/68 89/58 L Pulse Oximetry Oxygen Delivery Fraction of Inspired Oxygen 11/11/24 00:31 11/11/24 00:45 11/11/24 00:46 Temperature 37.3 C 37.3 C 37.3 C Pulse Rate 71 70 72 Respiratory Rate 17 19 17 Blood Pressure 105/62 Pulse Oximetry Oxygen Delivery Fraction of Inspired Oxygen 11/11/24 01:00 11/11/24 01:01 11/11/24 01:15 Temperature 37.3 C 37.3 C 37.3 C Pulse Rate 70 72 82 Respiratory Rate 17 19 20 Blood Pressure 116/67 116/69 Pulse Oximetry Oxygen Delivery Fraction of Inspired Oxygen 11/11/24 01:16 11/11/24 01:30 11/11/24 01:31 Temperature 37.3 C 37.3 C 37.3 C Pulse Rate 74 72 71 Respiratory Rate 16 18 17 Blood Pressure 114/69 Pulse Oximetry Oxygen Delivery Fraction of Inspired Oxygen 11/11/24 01:45 11/11/24 01:46 11/11/24 02:00 Temperature 37.3 C 37.3 C Pulse Rate 73 73 73 Respiratory Rate 21 H 16 Blood Pressure 104/64 119/76 Pulse Oximetry Oxygen Delivery Fraction of Inspired Oxygen 11/11/24 02:00 11/11/24 02:08 11/11/24 02:20 Temperature 37.3 C Pulse Rate 73 77 73 Respiratory Rate 20 19 Blood Pressure 113/70 Pulse Oximetry 100 100 Oxygen Delivery Mechanical Ventilation Fraction of Inspired Oxygen 11/11/24 04:00 11/11/24 04:00 11/11/24 04:00 Temperature Pulse Rate 82 73 Respiratory Rate 19 Blood Pressure Pulse Oximetry 100 Oxygen Delivery Mechanical Ventilation Fraction of Inspired Oxygen 11/11/24 04:00 11/11/24 04:02 11/11/24 04:02 Temperature 37.4 C Pulse Rate 82 76 76 Respiratory Rate 19 22 H 22 H Blood Pressure 143/83 H Pulse Oximetry 100 Oxygen Delivery Fraction of Inspired Oxygen 11/11/24 04:03 11/11/24 04:59 11/11/24 05:04 Temperature Pulse Rate 74 71 74 Respiratory Rate Blood Pressure 143/83 H 96/64 L Pulse Oximetry 100 Oxygen Delivery Mechanical Ventilation Fraction of Inspired Oxygen 11/11/24 05:07 11/11/24 06:00 11/11/24 06:05 Temperature 37.2 C Pulse Rate 75 72 72 Respiratory Rate 21 H 19 Blood Pressure 109/66 109/66 Pulse Oximetry 99 Oxygen Delivery Fraction of Inspired Oxygen 11/11/24 06:05 11/11/24 07:41 11/11/24 07:56 Temperature Pulse Rate 72 69 69 Respiratory Rate 19 Blood Pressure Pulse Oximetry 100 100 Oxygen Delivery Mechanical Ventilation Mechanical Ventilation Fraction of Inspired Oxygen 11/11/24 08:00 Temperature 37.1 C Pulse Rate 70 Respiratory Rate 19 Blood Pressure 112/69 Pulse Oximetry 100 Oxygen Delivery Fraction of Inspired Oxygen Intake/Output Intake/Output: Intake & Output 11/08/24 11/09/24 11/10/24 11/11/24 23:59 23:59 23:59 23:59 Intake Total 2091.6 1512.1 885.1 650.1 Output Total 975 1550 3125 825 Balance 1116.6 -37.9 -2239.9 -174.9 Meds/Results Medications: Active Medications Generic Name Dose Route Start Last Admin Trade Name Freq PRN Reason Stop Dose Admin Aspirin 81 mg 11/04/24 08:00 11/10/24 08:15 Aspirin 81 Mg Chewable Tablet FEED TUBE 81 mg DAILY@0800 JHONY Administration Dextrose 12.5 gm 10/17/24 21:26 10/30/24 05:55 Dextrose 50% 25 Gm/50 Ml Syringe IV PUSH 12.5 gm PRN PRN Administration Hypoglycemia Protocol Enoxaparin Sodium 40 mg 11/02/24 09:00 06/20/25 08:18 Enoxaparin 40 Mg/0.4 Ml Syringe SUB-Q 40 mg DAILY JHONY Administration Fidaxomicin 200 mg 11/08/24 09:00 11/10/24 20:16 Fidaxomicin 200 Mg Tablet FEED TUBE 11/18/24 08:59 200 mg Q12HR JHONY Administration Folic Acid 1 mg 10/24/24 09:00 11/10/24 08:15 Folic Acid 1 Mg Tablet FEED TUBE 1 mg QAM JHONY Administration Glucagon 1 mg 10/17/24 21:26 Glucagon For Inj 1 Mg Vial IM PRN PRN Hypoglycemia Protocol Glucose 15 gm 10/17/24 21:26 Glucose Oral Gel 15 Gm Of Glucse In 37.5 Gm Tube PO PRN PRN Hypoglycemia Protocol Dextrose 1,000 mls @ 100 mls/hr 10/17/24 21:26 Dextrose 5% 1,000 Ml IVPB PRN PRN Hypoglycemia Protocol Midazolam HCl 100 mg in 100 mls @ 0 mls/hr 11/08/24 07:35 11/10/24 15:38 Versed 100 Mg/Ns 100 Ml IV CONT Infused .Q0M JHONY Titration Protocol 0 MG/HR Norepinephrine Bitartrate 8 mg in 250 mls @ 0 mls/hr 11/08/24 08:05 11/11/24 06:05 Levophed 8 Mg/D5w 250 Ml IV CONT 0 mcg/min .Q0M JHONY 0 mls/hr Titration Protocol 0 MCG/MIN Meropenem 1 gm in 100 mls @ 200 mls/hr 11/08/24 11:30 11/11/24 05:13 IVPB Infused Q12HR JHONY Infusion Dexmedetomidine HCl 400 mcg in 100 mls @ 9.488 mls/hr 11/10/24 07:55 11/11/24 06:05 Precedex 400 Mcg/100 Ml IV CONT 0.5 mcg/kg/hr .[id number] JHONY 9.49 mls/hr Titration Protocol 0.5 MCG/KG/HR Magnesium Sulfate 2 gm in 50 mls @ 25 mls/hr 11/11/24 07:51 Magnesium Sulf 2 Gm/Water 50ml IVPB 11/11/24 09:50 ONCE ONE Insulin Aspart 3 - 6 units 11/08/24 12:00 11/11/24 01:33 Insulin Aspart (*Bkc) 100 Units/Ml SUB-Q Not Given Q6HR [facility] Protocol Midazolam HCl 2 mg 11/08/24 07:35 Midazolam Hcl (*Crx) 2 Mg/2 Ml Vial IV PUSH Q5M PRN ventilator asynchrony Multi-Ingred Cream/Lotion/Oil/Oint 1 applic 11/08/24 09:00 11/10/24 20:16 Mineral Oil/White Petrolatum Ointment EACH EYE 1 applic Q12HR JHONY Administration Pantoprazole Sodium 40 mg 10/18/24 21:00 11/10/24 20:16 Pantoprazole Sodium Iv 40 Mg Vial IV PUSH 40 mg Q12HR JHONY Administration Rosuvastatin Calcium 10 mg 11/04/24 09:00 11/07/24 09:08 Rosuvastatin 10 Mg Tablet FEED TUBE Not Given DAILY JHONY Saccharomyces Boulardii 250 mg 11/05/24 09:00 11/10/24 08:15 Saccharomyces Boulardii 250 Mg Capsule PO 250 mg DAILY JHONY Administration Sodium Chloride 10 ml 11/08/24 14:00 11/11/24 06:50 Central Line Flush IV PUSH 10 ml Q8HR JHONY Administration Sodium Chloride 10 ml 11/08/24 08:15 Central Line Flush IV PUSH PRN PRN with TPN bag changes Sodium Chloride 20 ml 11/08/24 08:15 11/11/24 06:50 Central Line Flush IV PUSH 20 ml PRN PRN Administration after blood draws Thiamine HCl 100 mg 10/24/24 09:00 11/10/24 08:15 Thiamine Hcl 100 Mg Tablet FEED TUBE 100 mg QAM JHONY Administration Radiology Results: ITS Impressions Face CT 10/19/24 09:39 IMPRESSION: 1. Extensive sinus disease with near complete opacification of the right maxillary sinus and dependently layering fluid in the bilateral sphenoid sinuses. Correlate clinically for acute sinusitis. 2. Dental and periodontal disease with periapical lucency surrounding the posterior most remaining right maxillary molar. Renal Ultrasound 10/19/24 09:48 IMPRESSION: No hydronephrosis or renal calculi. No parenchymal findings to suggest the presence of medical renal disease. Simple cysts within the right kidney, for which no further follow-up is needed. Brain MRI 10/24/24 14:22 IMPRESSION: 1. Age-related changes the brain. No acute intracranial process. 2. Prominent sinus disease with fluid nearly filling the right maxillary sinus and layering dependently in the bilateral sphenoid sinuses. Correlate clinically for acute sinusitis. Lumbar Puncture Fluoroscopy 10/31/24 17:34 IMPRESSION: 1. Successful fluoro-guided lumbar puncture with mildly elevated opening pressure of 23 cm water. Modified Barium Swallow 11/06/24 10:05 IMPRESSION: Nondiagnostic study as all contents either leaked or were actively expelled from the mouth. No swallows were able to be evaluated. Please correlate with speech pathologist findings and specific feeding recommendations. Abdomen X-Ray 11/08/24 07:55 Impression: NG tube in satisfactory position. Probable small bowel obstruction. Head CT 11/08/24 09:52 IMPRESSION: No acute intracranial findings. Chest/Abdomen/Pelvis CT 11/08/24 09:59 IMPRESSION: CHEST: 1. Right basilar atelectasis versus pneumonia with pleural effusion. 2. No other acute cardiopulmonary pathology. ABDOMEN/PELVIS: 1. Free air is seen anteriorly around the liver with minimal fluid. 2. Significant ascites in the pelvis. Drainage tube is seen in the left side of the pelvis. 3. Cholelithiasis with thickened wall of the gallbladder. Evaluation for cholecystitis advised. 4. Slightly dilated small bowel loops in the left upper abdomen which may indicate ileus follow-up advised. 5. Right renal cysts. Upper GI Series 11/09/24 13:49 IMPRESSION: 1. Left lower quadrant jejunostomy tube in expected position with injected contrast opacifying the normal-appearing jejunum with no extraluminal leakage of contrast. Chest X-Ray 11/11/24 06:29 Impression: Clear lungs. Support tubes, as above. Labs Labs: Laboratory Results - last 24 hr 11/10/24 11/10/24 11/11/24 11:33 18:03 00:19 WBC RBC Hgb Hct MCV MCH MCHC RDW Plt Count MPV Puncture Site ABG pH ABG pCO2 ABG pO2 ABG PO2/FiO2 Ratio ABG HCO3 ABG O2 Saturation ABG O2 Content ABG Base Excess A-a Gradient Oxyhemoglobin Carboxyhemoglobin Methemoglobin Reduced Hemoglobin Total Hemoglobin O2 Delivery Device O2 Liters/Min Minute Volume Vent Rate Vent Mode FiO2 Tidal Volume PEEP Peak Inspir Pressure Pressure Support Sodium Potassium Chloride Carbon Dioxide Anion Gap BUN Creatinine Estim Creat Clear Calc Estimated GFR Glucose POC Capillary Glucose 97 111 H 116 H Calcium Phosphorus Magnesium Total Bilirubin AST ALT Alkaline Phosphatase Total Protein Albumin 11/11/24 11/11/24 05:19 06:19 WBC 9.6 RBC 2.65 L Hgb 7.8 L Hct 23.9 L MCV 90.2 MCH 29.4 MCHC 32.6 RDW 19.2 H Plt Count 347 MPV 10.4 Puncture Site Right radial ABG pH 7.493 H ABG pCO2 30.9 L ABG pO2 60.9 L ABG PO2/FiO2 Ratio 2.44 ABG HCO3 23.2 ABG O2 Saturation 93.5 L ABG O2 Content 11.4 L ABG Base Excess 0.2 A-a Gradient 80.7 Oxyhemoglobin 91.3 Carboxyhemoglobin 0.3 Methemoglobin 0.3 Reduced Hemoglobin 8.1 H Total Hemoglobin 8.8 L O2 Delivery Device Ventilator O2 Liters/Min Not Reportable Minute Volume Not Reportable Vent Rate 16 Vent Mode Cmv FiO2 25 Tidal Volume 350 PEEP 5 Peak Inspir Pressure Not Reportable Pressure Support Not Reportable Sodium 140 Potassium 3.8 Chloride 109 H Carbon Dioxide 22 Anion Gap 9 BUN 28 H Creatinine 0.99 Estim Creat Clear Calc 59 Estimated GFR > 60 Glucose 118 H POC Capillary Glucose Calcium 8.7 Phosphorus 4.0 Magnesium 1.7 Total Bilirubin 0.9 AST 38 ALT 16 Alkaline Phosphatase 98 Total Protein 6.6 Albumin 2.8 L Quality VTE Prophylaxis VTE prophylaxis: mechanical ordered
[2024-11-11] MEDS: SACCHAROMYCES BOULARDII 250 MG CAPSULE PO (10:02)
[2024-11-11] MEDS: FIDAXOMICIN 200 MG TABLET FEED TUBE ×2 (10:02→20:10)
[2024-11-11] MEDS: ASPIRIN 81 MG CHEWABLE TABLET FEED TUBE (10:02)
[2024-11-11] MEDS: FOLIC ACID 1 MG TABLET FEED TUBE (10:02)
[2024-11-11] MEDS: PANTOPRAZOLE SODIUM IV 40 MG VIAL IV PUSH ×2 (10:02→20:10)
[2024-11-11] MEDS: MEROPENEM 1 GM/NS 100 ML 1 GM/100 ML BAG IVPB ×2 (10:02→20:10)
[2024-11-11] MEDS: MINERAL OIL/WHITE PETROLATUM OINTMENT 1 APPLIC EACH EYE (10:03)
[2024-11-11] MEDS: THIAMINE HCL 100 MG TABLET FEED TUBE (10:13)
[2024-11-11] MEDS: MAGNESIUM SULF 2 GM/WATER 50ML 2 GM/50 ML BAG IVPB (10:13)
[2024-11-11 11:43] LABS: Alveolar/Arterial O2 Gradient 43.9 mmHg; Fractional Inspired Oxygen 25 %; HCO3 ABG 22.9 mEq/l (22.0-26.0); Oxygen Content ABG 12.5 %vol (16.0-22.0); Oxygen Saturation ABG 97.9 % (95.0-100.0); PCO2 ABG 30.8 mmHg (35.0-45.0); PO2 ABG 97.8 mmHg (80.0-100.0); PO2 FiO2 Ratio Arterial Blood 3.91 %
[2024-11-11 11:45] LABS: Site Drawn LEFT RADIAL
[2024-11-11 11:47] LABS: Arterial Blood Gas Pressure Support 5 cmH2O
--- NOTE | 2024-11-11 12:00 | PCRCNOTE ---
Pt extubated @ 1153 to a 2L NC. RN present during encounter.
--- NOTE | 2024-11-11 15:44 | PM.IMPN ---
Progress Note: A&P Assessment and Plan (1) Shock: Code(s): R57.9 - Shock, unspecified Status: Acute Assessment and Plan: Patient initially presented with septic shock which had resolved Now patient has developed new hypotension. Suspect aspiration pneumonia versus UTI as patient has had Michelle for more than 2 weeks., or persistent C diff infection CT chest abdomen pelvis ABDOMEN/PELVIS: 1. Free air is seen anteriorly around the liver with minimal fluid. 2. Significant ascites in the pelvis. Drainage tube is seen in the left side of the pelvis. 3. Cholelithiasis with thickened wall of the gallbladder. Evaluation for cholecystitis advised. 4. Slightly dilated small bowel loops in the left upper abdomen which may indicate ileus follow-up advised. 5. Right renal cysts Blood, sputum culture culture are negative till now Michelle changed and UA sent procalcitonin level 8.2 Continue Dificid and meropenem Patient was given IV fluid bolus and now off of IV fluids Off 25% albumin Off Levophed infusion (2) Metabolic encephalopathy: Code(s): G93.41 - Metabolic encephalopathy Status: Acute Assessment and Plan: Patient has had Altered mental status since admission which has been multifactorial Patient was evaluated by Neurology and suspected to have metabolic encephalopathy. -CT brain on presented was negative for intracranial abnormalities. Repeat CT scan 11/08 also unremarkable -MRI cannot be performed as patient was in [place] [employer] and may have sharpnel exposure according to his daughter -10/19: Repeat CT brain did not show any acute intracranial hemorrhage or suspicious mass effect, inflammatory sinus disease. -10/19: CT facial bones showed extensive sinus disease with near complete opacification of the right maxillary sinus and dependently layering fluid in the bilateral sphenoid sinuses. Dental and periodontal disease with periapical lucency surrounding the posterior most remaining right maxillary molar His ammonia level was normal Patient had LP on 10/31 and and only abnormality seen was elevated protein viral studies are pending Sedation holiday Patient currently on Precedex. I will hold it this morning for a weaning trial (3) Acute kidney injury: Code(s): N17.9 - Acute kidney failure, unspecified Status: Acute Assessment and Plan: Patient presented with Acute kidney injury which improved with IV fluids Now the creatinine has again went up I suspect this is due to hypovolemia and sepsis Fully replaced CT scan reviewed Patient was given IV fluids and creatinine improving. Hold further IV fluid Although his intake and output show that he is significantly volume overloaded. He has had FMS with diarrhea which makes I&Os inaccurate. He does have minimal edema on exam Nephrology following Monitor urine output electrolytes and creatinine CK level is normal Earlier in the course CT scan of the abdomen and pelvis did not show any hydronephrosis or stones and renal ultrasound also showed No hydronephrosis or renal calculi, no apparent, findings to suggest the presence of medical renal disease. Simple cyst within the right kidney (4) Anemia: Code(s): D64.9 - Anemia, unspecified Status: Acute Assessment and Plan: Patient was anemic on presentation and received 2 units of PRBC. He was evaluate by Hematology Stool culture was negative and vitamin B12 were normal Folic acid was low and was supplement -iron panel was unremarkable He had EGD on 11/01 which showed gastritis and previous gastric surgery Hemoglobin dropped to 5.2 which could be partially dilutional versus GI loss 11/09 Transfuse 2 units PRBC Hold Lovenox and use SCDs Continue protonix Monitor hemoglobin (5) Thrombocytopenia: Code(s): D69.6 - Thrombocytopenia, unspecified Status: Acute Assessment and Plan: Thrombocytopenia that patient initially presented with has improved High platelet count at this time suggest hemoconcentration (6) Hyperkalemia: Code(s): E87.5 - Hyperkalemia Status: Acute Assessment and Plan: Hyperkalemia with ALEJANDRO Calcium gluconate, insulin and D50, bicarb Lokelma IV fluid bolus Now resolved (7) C. difficile diarrhea: Code(s): A04.72 - Enterocolitis due to Clostridium difficile, not specified as recurrent Status: Acute Assessment and Plan: Continue Dificid. Diarrhea improved. DC IV Flagyl CT abdomen pelvis reviewed (8) Acute respiratory failure: Code(s): J96.00 - Acute respiratory failure, unspecified whether with hypoxia or hypercapnia Status: Acute Assessment and Plan: Chest x-ray and ABG reviewed. Ventilator settings reviewed. I placed patient on PSV. Patient required pressure support off 10 for adequate RSBI. Will continue as tolerated and wean pressure support as possible. Subjective Date/time seen: 11/11/24 15:44 Interval history: Patient is intubated but not on any sedation. Follows simple command. Review of Systems Review of Systems: All systems reviewed & are unremarkable except as noted in HPI and below ( Limited, A&O x1, unreliable) ROS unobtainable: Yes unobtainable due to endotracheal tube, unobtainable due to medical condition and unobtainable due to mental status Exam Narrative: General: Pt is sedated, intubated and on mechanical ventilation Lungs/Chest: Trachea central Coarse BS B/L, few crackles on the left base Cardiac: RRR. Normal S1 S2. No murmurs Circulation: Pedal pulses are intact and symmetrical. Abdomen: Present bowel sounds. Midline incision is under dressing Soft. NT. ND. Extremities: Patient has some edema bilaterally in lower extremity : Michelle in place Neurologic: Patient is on low-dose Precedex. Patient spontaneously moves right side. On left side he withdraws to pain. He does have history of CVA in the past he does not follow commands PERRL Const: General: comfortable and no acute distress Other: , frail, ill-appearing, elderly HENMT: Face/Nose/Sinus: Normal nares present Mouth: Yes dry mucous membranes Eyes: General: appearance normal, both eyes and all related structures Sclera: sclerae normal Pupils: Equal, round and reactive pupils present EOM: EOMs intact bilaterally Resp: Effort & Inspection: normal respiratory effort Auscultation: clear to auscultation bilaterally Cardio: Rate: regular rate Rhythm: regular rhythm Other: S1-S2 present without murmur, rub, ectopy GI: Other: abdomen soft, nondistended, nontender. Hyperactive bowel sounds in all quadrants. Skin: General skin exam: normal color and no rashes or lesions noted Other: Modest swelling to the right side of the patient's face. Neuro: Cranial nerves: Yes Equal, round and reactive pupils present Other: Garbled speech, difficult to understand. A&O x1. Moving all extremities, however + 1 in all extremities. Left foot weaker than right. 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 Right facial droop verses droop due to swelling. Extrem: General: normal to inspection Psych: Other: Poor insight and judgment at present, pleasant. Objective Data Vital Signs Vital Signs: Vital Signs - 24 hr 11/10/24 16:00 11/10/24 16:00 11/10/24 16:00 Temperature 97.8 F Pulse Rate 83 83 Respiratory Rate 16 Blood Pressure 113/68 Pulse Oximetry 98 Oxygen Delivery Oxygen Flow Rate Fraction of Inspired Oxygen 11/10/24 16:00 11/10/24 16:00 11/10/24 16:00 Temperature 97.8 F Pulse Rate 84 79 83 Respiratory Rate 16 16 Blood Pressure 113/68 126/78 Pulse Oximetry 100 Oxygen Delivery Oxygen Flow Rate Fraction of Inspired Oxygen 11/10/24 16:00 11/10/24 17:35 11/10/24 18:00 Temperature Pulse Rate 77 99 72 Respiratory Rate 16 Blood Pressure 119/80 Pulse Oximetry 100 100 Oxygen Delivery Mechanical Ventilation Mechanical Ventilation Oxygen Flow Rate Fraction of Inspired Oxygen 16 25 11/10/24 18:00 11/10/24 18:00 11/10/24 18:36 Temperature Pulse Rate 79 89 75 Respiratory Rate 18 19 16 Blood Pressure 103/70 Pulse Oximetry 100 Oxygen Delivery Oxygen Flow Rate Fraction of Inspired Oxygen 11/10/24 20:00 11/10/24 20:00 11/10/24 20:00 Temperature 98.5 F Pulse Rate 93 73 73 Respiratory Rate 18 18 Blood Pressure 103/60 103/60 Pulse Oximetry 100 Oxygen Delivery Oxygen Flow Rate Fraction of Inspired Oxygen 11/10/24 20:00 11/10/24 20:00 11/10/24 20:00 Temperature Pulse Rate 72 Respiratory Rate Blood Pressure Pulse Oximetry 100 Oxygen Delivery Mechanical Ventilation Oxygen Flow Rate Fraction of Inspired Oxygen 25 11/10/24 20:10 11/10/24 21:13 11/10/24 21:30 Temperature 98.6 F Pulse Rate 72 79 87 Respiratory Rate 21 H 19 Blood Pressure Pulse Oximetry 100 Oxygen Delivery Mechanical Ventilation Oxygen Flow Rate Fraction of Inspired Oxygen 11/10/24 21:40 11/10/24 22:00 11/10/24 22:00 Temperature 98.8 F Pulse Rate 87 72 69 Respiratory Rate 21 H Blood Pressure 138/82 80/50 L 80/50 L Pulse Oximetry 96 Oxygen Delivery Oxygen Flow Rate Fraction of Inspired Oxygen 11/10/24 22:00 11/10/24 22:00 11/10/24 22:16 Temperature Pulse Rate 72 72 83 Respiratory Rate 16 Blood Pressure 88/60 L Pulse Oximetry Oxygen Delivery Oxygen Flow Rate Fraction of Inspired Oxygen 11/10/24 22:32 11/10/24 22:51 11/10/24 22:54 Temperature 98.9 F Pulse Rate 85 84 83 Respiratory Rate 16 Blood Pressure 105/65 Pulse Oximetry 98 Oxygen Delivery Mechanical Ventilation Oxygen Flow Rate Fraction of Inspired Oxygen 25 06/21/25 23:00 11/10/24 23:01 11/10/24 23:15 Temperature 98.9 F 98.9 F 98.9 F Pulse Rate 85 86 85 Respiratory Rate 19 16 21 H Blood Pressure 104/67 106/70 Pulse Oximetry Oxygen Delivery Oxygen Flow Rate Fraction of Inspired Oxygen 11/10/24 23:16 11/10/24 23:30 11/10/24 23:31 Temperature 98.9 F 98.9 F 98.9 F Pulse Rate 84 83 83 Respiratory Rate 19 18 18 Blood Pressure 103/66 Pulse Oximetry Oxygen Delivery Oxygen Flow Rate Fraction of Inspired Oxygen 11/10/24 23:45 11/10/24 23:46 11/11/24 00:00 Temperature 98.9 F 98.9 F Pulse Rate 81 82 75 Respiratory Rate 22 H 22 H Blood Pressure 104/67 123/73 Pulse Oximetry Oxygen Delivery Oxygen Flow Rate Fraction of Inspired Oxygen 11/11/24 00:00 11/11/24 00:00 11/11/24 00:00 Temperature Pulse Rate 75 74 Respiratory Rate 18 Blood Pressure Pulse Oximetry 100 Oxygen Delivery Mechanical Ventilation Oxygen Flow Rate Fraction of Inspired Oxygen 11/11/24 00:00 11/11/24 00:00 11/11/24 00:00 Temperature 99.0 F 99.0 F Pulse Rate 75 75 Respiratory Rate 18 21 H Blood Pressure 123/73 123/73 Pulse Oximetry 100 Oxygen Delivery Oxygen Flow Rate Fraction of Inspired Oxygen 11/11/24 00:01 11/11/24 00:15 11/11/24 00:16 Temperature 99.0 F 98.8 F 98.9 F Pulse Rate 76 77 75 Respiratory Rate 24 H 25 H 20 Blood Pressure 119/68 Pulse Oximetry Oxygen Delivery Oxygen Flow Rate Fraction of Inspired Oxygen 11/11/24 00:30 11/11/24 00:31 11/11/24 00:45 Temperature 99.1 F 99.1 F 99.1 F Pulse Rate 72 71 70 Respiratory Rate 18 17 19 Blood Pressure 89/58 L 105/62 Pulse Oximetry Oxygen Delivery Oxygen Flow Rate Fraction of Inspired Oxygen 11/11/24 00:46 11/11/24 01:00 11/11/24 01:01 Temperature 99.1 F 99.1 F 99.1 F Pulse Rate 72 70 72 Respiratory Rate 17 17 19 Blood Pressure 116/67 Pulse Oximetry Oxygen Delivery Oxygen Flow Rate Fraction of Inspired Oxygen 11/11/24 01:15 11/11/24 01:16 11/11/24 01:30 Temperature 99.1 F 99.1 F 99.1 F Pulse Rate 82 74 72 Respiratory Rate 20 16 18 Blood Pressure 116/69 114/69 Pulse Oximetry Oxygen Delivery Oxygen Flow Rate Fraction of Inspired Oxygen 11/11/24 01:31 11/11/24 01:45 11/11/24 01:46 Temperature 99.1 F 99.1 F 99.1 F Pulse Rate 71 73 73 Respiratory Rate 17 21 H 16 Blood Pressure 104/64 Pulse Oximetry Oxygen Delivery Oxygen Flow Rate Fraction of Inspired Oxygen 11/11/24 02:00 11/11/24 02:00 11/11/24 02:08 Temperature Pulse Rate 73 73 77 Respiratory Rate 20 Blood Pressure 119/76 Pulse Oximetry 100 Oxygen Delivery Mechanical Ventilation Oxygen Flow Rate Fraction of Inspired Oxygen 11/11/24 02:20 11/11/24 04:00 11/11/24 04:00 Temperature 99.2 F Pulse Rate 73 82 73 Respiratory Rate 19 19 Blood Pressure 113/70 Pulse Oximetry 100 100 Oxygen Delivery Mechanical Ventilation Oxygen Flow Rate Fraction of Inspired Oxygen 11/11/24 04:00 11/11/24 04:00 11/11/24 04:02 Temperature 99.4 F Pulse Rate 82 76 Respiratory Rate 19 22 H Blood Pressure 143/83 H Pulse Oximetry 100 Oxygen Delivery Oxygen Flow Rate Fraction of Inspired Oxygen 11/11/24 04:02 11/11/24 04:03 11/11/24 04:59 Temperature Pulse Rate 76 74 71 Respiratory Rate 22 H Blood Pressure 143/83 H 96/64 L Pulse Oximetry Oxygen Delivery Oxygen Flow Rate Fraction of Inspired Oxygen 11/11/24 05:04 11/11/24 05:07 11/11/24 06:00 Temperature 98.9 F Pulse Rate 74 75 72 Respiratory Rate 21 H 19 Blood Pressure 109/66 Pulse Oximetry 100 99 Oxygen Delivery Mechanical Ventilation Oxygen Flow Rate Fraction of Inspired Oxygen 11/11/24 06:05 11/11/24 06:05 11/11/24 07:41 Temperature Pulse Rate 72 72 69 Respiratory Rate 19 Blood Pressure 109/66 Pulse Oximetry 100 Oxygen Delivery Mechanical Ventilation Oxygen Flow Rate Fraction of Inspired Oxygen 11/11/24 07:56 11/11/24 08:00 06/22/25 08:00 Temperature 98.7 F Pulse Rate 69 70 69 Respiratory Rate 19 Blood Pressure 112/69 112/69 Pulse Oximetry 100 100 Oxygen Delivery Mechanical Ventilation Oxygen Flow Rate Fraction of Inspired Oxygen 25 11/11/24 08:00 11/11/24 08:00 11/11/24 08:00 Temperature Pulse Rate 69 69 Respiratory Rate 23 H Blood Pressure Pulse Oximetry 100 Oxygen Delivery Mechanical Ventilation Oxygen Flow Rate Fraction of Inspired Oxygen 11/11/24 08:00 11/11/24 09:14 11/11/24 10:00 Temperature Pulse Rate 72 76 Respiratory Rate Blood Pressure 123/73 Pulse Oximetry 100 Oxygen Delivery Mechanical Ventilation Oxygen Flow Rate Fraction of Inspired Oxygen 11/11/24 10:00 11/11/24 10:00 11/11/24 10:39 Temperature 98.6 F Pulse Rate 76 74 68 Respiratory Rate 20 17 Blood Pressure 123/73 Pulse Oximetry 100 100 Oxygen Delivery Mechanical Ventilation Oxygen Flow Rate Fraction of Inspired Oxygen 11/11/24 11:28 11/11/24 12:00 11/11/24 12:00 Temperature Pulse Rate 74 72 Respiratory Rate Blood Pressure Pulse Oximetry 100 99 Oxygen Delivery Mechanical Ventilation Nasal Cannula Oxygen Flow Rate 2 Fraction of Inspired Oxygen 11/11/24 12:00 11/11/24 12:00 11/11/24 12:00 Temperature 98.8 F Pulse Rate 72 72 72 Respiratory Rate 23 H 25 H Blood Pressure 110/65 110/65 Pulse Oximetry 99 Oxygen Delivery Oxygen Flow Rate Fraction of Inspired Oxygen 11/11/24 12:00 11/11/24 14:00 11/11/24 14:00 Temperature 98.8 F Pulse Rate 76 76 Respiratory Rate 19 Blood Pressure 148/80 H 148/80 H Pulse Oximetry 100 99 Oxygen Delivery Nasal Cannula Oxygen Flow Rate 2 Fraction of Inspired Oxygen 28 11/11/24 14:00 Temperature Pulse Rate 76 Respiratory Rate 24 H Blood Pressure Pulse Oximetry Oxygen Delivery Oxygen Flow Rate Fraction of Inspired Oxygen Intake/Output Intake/Output: Intake & Output 11/08/24 11/09/24 11/10/24 11/11/24 23:59 23:59 23:59 23:59 Intake Total 2091.6 1512.1 885.1 768.3 Output Total 975 1550 3125 825 Balance 1116.6 -37.9 -2239.9 -56.7 Meds/Results Medications: Active Medications Generic Name Dose Route Start Last Admin Trade Name Freq PRN Reason Stop Dose Admin Aspirin 81 mg 11/04/24 08:00 11/11/24 10:02 Aspirin 81 Mg Chewable Tablet FEED TUBE 81 mg DAILY@0800 JHONY Administration Dextrose 12.5 gm 10/17/24 21:26 10/30/24 05:55 Dextrose 50% 25 Gm/50 Ml Syringe IV PUSH 12.5 gm PRN PRN Administration Hypoglycemia Protocol Enoxaparin Sodium 40 mg 11/02/24 09:00 11/09/24 08:18 Enoxaparin 40 Mg/0.4 Ml Syringe SUB-Q 40 mg DAILY JHONY Administration Fidaxomicin 200 mg 11/08/24 09:00 11/11/24 10:02 Fidaxomicin 200 Mg Tablet FEED TUBE 11/18/24 08:59 200 mg Q12HR JHONY Administration Folic Acid 1 mg 10/24/24 09:00 11/11/24 10:02 Folic Acid 1 Mg Tablet FEED TUBE 1 mg QAM JHONY Administration Glucagon 1 mg 10/17/24 21:26 Glucagon For Inj 1 Mg Vial IM PRN PRN Hypoglycemia Protocol Glucose 15 gm 10/17/24 21:26 Glucose Oral Gel 15 Gm Of Glucse In 37.5 Gm Tube PO PRN PRN Hypoglycemia Protocol Dextrose 1,000 mls @ 100 mls/hr 10/17/24 21:26 Dextrose 5% 1,000 Ml IVPB PRN PRN Hypoglycemia Protocol Midazolam HCl 100 mg in 100 mls @ 0 mls/hr 11/08/24 07:35 11/10/24 15:38 Versed 100 Mg/Ns 100 Ml IV CONT Infused .Q0M JHONY Titration Protocol 0 MG/HR Norepinephrine Bitartrate 8 mg in 250 mls @ 0 mls/hr 11/08/24 08:05 11/11/24 14:00 Levophed 8 Mg/D5w 250 Ml IV CONT 0 mcg/min .Q0M JHONY 0 mls/hr Titration Protocol 0 MCG/MIN Meropenem 1 gm in 100 mls @ 200 mls/hr 11/08/24 11:30 11/11/24 10:32 IVPB Infused Q12HR JHONY Infusion Dexmedetomidine HCl 400 mcg in 100 mls @ 9.488 mls/hr 11/10/24 07:55 11/11/24 14:00 Precedex 400 Mcg/100 Ml IV CONT 0 mcg/kg/hr .[id number] JHONY 0 mls/hr Titration Protocol 0.5 MCG/KG/HR Insulin Aspart 3 - 6 units 11/08/24 12:00 11/11/24 11:28 Insulin Aspart (*Bkc) 100 Units/Ml SUB-Q Not Given Q6HR JHONY Protocol Midazolam HCl 2 mg 11/08/24 07:35 Midazolam Hcl (*Crx) 2 Mg/2 Ml Vial IV PUSH Q5M PRN ventilator asynchrony Multi-Ingred Cream/Lotion/Oil/Oint 1 applic 11/08/24 09:00 11/11/24 10:03 Mineral Oil/White Petrolatum Ointment EACH EYE 1 applic Q12HR JHONY Administration Pantoprazole Sodium 40 mg 10/18/24 21:00 11/11/24 10:02 Pantoprazole Sodium Iv 40 Mg Vial IV PUSH 40 mg Q12HR JHONY Administration Rosuvastatin Calcium 10 mg 11/04/24 09:00 11/07/24 09:08 Rosuvastatin 10 Mg Tablet FEED TUBE Not Given DAILY JHONY Saccharomyces Boulardii 250 mg 11/05/24 09:00 11/11/24 10:02 Saccharomyces Boulardii 250 Mg Capsule PO 250 mg DAILY JHONY Administration Sodium Chloride 10 ml 11/08/24 14:00 11/11/24 13:34 Central Line Flush IV PUSH 10 ml Q8HR JHONY Administration Sodium Chloride 10 ml 11/08/24 08:15 Central Line Flush IV PUSH PRN PRN with TPN bag changes Sodium Chloride 20 ml 11/08/24 08:15 11/11/24 06:50 Central Line Flush IV PUSH 20 ml PRN PRN Administration after blood draws Thiamine HCl 100 mg 10/24/24 09:00 11/11/24 10:13 Thiamine Hcl 100 Mg Tablet FEED TUBE 100 mg QAM JHONY Administration Radiology Results: ITS Impressions Face CT 10/19/24 09:39 IMPRESSION: 1. Extensive sinus disease with near complete opacification of the right maxillary sinus and dependently layering fluid in the bilateral sphenoid sinuses. Correlate clinically for acute sinusitis. 2. Dental and periodontal disease with periapical lucency surrounding the posterior most remaining right maxillary molar. Renal Ultrasound 10/19/24 09:48 IMPRESSION: No hydronephrosis or renal calculi. No parenchymal findings to suggest the presence of medical renal disease. Simple cysts within the right kidney, for which no further follow-up is needed. Brain MRI 10/24/24 14:22 IMPRESSION: 1. Age-related changes the brain. No acute intracranial process. 2. Prominent sinus disease with fluid nearly filling the right maxillary sinus and layering dependently in the bilateral sphenoid sinuses. Correlate clinically for acute sinusitis. Lumbar Puncture Fluoroscopy 10/31/24 17:34 IMPRESSION: 1. Successful fluoro-guided lumbar puncture with mildly elevated opening pressure of 23 cm water. Modified Barium Swallow 11/06/24 10:05 IMPRESSION: Nondiagnostic study as all contents either leaked or were actively expelled from the mouth. No swallows were able to be evaluated. Please correlate with speech pathologist findings and specific feeding recommendations. Abdomen X-Ray 11/08/24 07:55 Impression: NG tube in satisfactory position. Probable small bowel obstruction. Head CT 11/08/24 09:52 IMPRESSION: No acute intracranial findings. Chest/Abdomen/Pelvis CT 11/08/24 09:59 IMPRESSION: CHEST: 1. Right basilar atelectasis versus pneumonia with pleural effusion. 2. No other acute cardiopulmonary pathology. ABDOMEN/PELVIS: 1. Free air is seen anteriorly around the liver with minimal fluid. 2. Significant ascites in the pelvis. Drainage tube is seen in the left side of the pelvis. 3. Cholelithiasis with thickened wall of the gallbladder. Evaluation for cholecystitis advised. 4. Slightly dilated small bowel loops in the left upper abdomen which may indicate ileus follow-up advised. 5. Right renal cysts. Upper GI Series 11/09/24 13:49 IMPRESSION: 1. Left lower quadrant jejunostomy tube in expected position with injected contrast opacifying the normal-appearing jejunum with no extraluminal leakage of contrast. Chest X-Ray 11/11/24 06:29 Impression: Clear lungs. Support tubes, as above. Labs Labs: Laboratory Results - last 24 hr 11/10/24 11/11/24 11/11/24 18:03 00:19 05:19 WBC RBC Hgb Hct MCV MCH MCHC RDW Plt Count MPV Puncture Site Right radial ABG pH 7.493 H ABG pCO2 30.9 L ABG pO2 60.9 L ABG PO2/FiO2 Ratio 2.44 ABG HCO3 23.2 ABG O2 Saturation 93.5 L ABG O2 Content 11.4 L ABG Base Excess 0.2 A-a Gradient 80.7 Oxyhemoglobin 91.3 Carboxyhemoglobin 0.3 Methemoglobin 0.3 Reduced Hemoglobin 8.1 H Total Hemoglobin 8.8 L O2 Delivery Device Ventilator O2 Liters/Min Not Reportable Minute Volume Not Reportable Vent Rate 16 Vent Mode Cmv FiO2 25 Tidal Volume 350 PEEP 5 Peak Inspir Pressure Not Reportable Pressure Support Not Reportable Sodium Potassium Chloride Carbon Dioxide Anion Gap BUN Creatinine Estim Creat Clear Calc Estimated GFR Glucose POC Capillary Glucose 111 H 116 H Calcium Phosphorus Magnesium Total Bilirubin AST ALT Alkaline Phosphatase Total Protein Albumin 11/11/24 11/11/24 11/11/24 06:19 11:20 11:40 WBC 9.6 RBC 2.65 L Hgb 7.8 L Hct 23.9 L MCV 90.2 MCH 29.4 MCHC 32.6 RDW 19.2 H Plt Count 347 MPV 10.4 Puncture Site Left radial ABG pH 7.489 H ABG pCO2 30.8 L ABG pO2 97.8 ABG PO2/FiO2 Ratio 3.91 ABG HCO3 22.9 ABG O2 Saturation 97.9 ABG O2 Content 12.5 L ABG Base Excess -0.1 A-a Gradient 43.9 Oxyhemoglobin 97.1 Carboxyhemoglobin Methemoglobin Reduced Hemoglobin Total Hemoglobin 9.0 L O2 Delivery Device Ventilator O2 Liters/Min Not Reportable Minute Volume Not Reportable Vent Rate Not Reportable Vent Mode Spontaneous FiO2 25 Tidal Volume Not Reportable PEEP 5 Peak Inspir Pressure Not Reportable Pressure Support 5 Sodium 140 Potassium 3.8 Chloride 109 H Carbon Dioxide 22 Anion Gap 9 BUN 28 H Creatinine 0.99 Estim Creat Clear Calc 59 Estimated GFR > 60 Glucose 118 H POC Capillary Glucose 100 Calcium 8.7 Phosphorus 4.0 Magnesium 1.7 Total Bilirubin 0.9 AST 38 ALT 16 Alkaline Phosphatase 98 Total Protein 6.6 Albumin 2.8 L Quality VTE Prophylaxis VTE prophylaxis: mechanical ordered Hospitalist MIPS Advance Care Plan I have confirmed that the patient's Advanced Care Plan is present, code status is documented, or surrogate decision maker is listed in patient medical record.: Yes Medication Reconciliation I have utilized all available resources to obtain, update and review the patients current medications (includes all prescriptions, OTC, herbals, cannabis, and nutritional supplements).: Yes
[2024-11-12] VITALS (17 sets, daily range): BP systolic 122–143; BP diastolic 73–89; PULSE 82–95; RESP 17–30; TEMP 37.2–38.1; O2SAT 93–98; BMI 10.0
[2024-11-12] MEDS: CENTRAL LINE FLUSH 10 ML IV PUSH ×3 (06:01→20:49)
[2024-11-12 06:46] LABS: Hematocrit 22.7 % (42.0-52.0); Mean Corpuscular HGB Conc 29.1 g/dl (32-36); Mean Corpuscular Hemoglobin 29.1 pg (26-34); Mean Corpuscular Volume 100.0 fl (80-100); Platelet Count Result 288 k/mm3 (150-375); Red Blood Count 2.27 M/mm3 (4.6-6.20); White Blood Count 9.1 K/mm3 (4.5-10.0)
[2024-11-12 06:49] LABS: Hemoglobin 6.6 g/dL (14.0-18.0)
[2024-11-12 07:00] LABS: Alanine Aminotransferase 13 U/L (6-50); Albumin Level 2.8 g/dL (3.5-5.1); Alkaline Phosphatase 109 U/L (38-126); Anion Gap 9 mmol/L (4-12); Aspartate Amino Transferase 31 U/L (17-59); Bilirubin,Total 1.1 mg/dL (0.2-1.3); Blood Urea Nitrogen 20 mg/dL (9-20); Calcium 8.3 mg/dL (8.4-10.2); Carbon Dioxide 19 mmol/L (22-30); Chloride 112 mmol/L (98-107); Estimated CRCL calculation 85 ml/min; Estimated Glomerular Filt Rate > 60; Glucose 99 mg/dL (65-110); Magnesium 1.6 mg/dL (1.6-2.3); Potassium 3.5 mmol/L (3.4-5.0); Sodium 140 mmol/L (137-145); Total Protein 6.4 g/dL (6.3-8.2)
[2024-11-12] MEDS: FIDAXOMICIN 200 MG TABLET FEED TUBE ×2 (07:53→20:49)
[2024-11-12] MEDS: SODIUM BICARBONATE TAB 650 MG TABLET FEED TUBE ×2 (07:53→17:37)
[2024-11-12] MEDS: ASPIRIN 81 MG CHEWABLE TABLET FEED TUBE (07:54)
[2024-11-12] MEDS: FOLIC ACID 1 MG TABLET FEED TUBE (07:54)
[2024-11-12] MEDS: PANTOPRAZOLE SODIUM IV 40 MG VIAL IV PUSH ×2 (07:54→20:49)
[2024-11-12] MEDS: POTASSIUM CHLORIDE 20 MEQ PACKET (FOR LIQUID) 40 MEQ FEED TUBE ×2 (07:54→15:38)
[2024-11-12] MEDS: THIAMINE HCL 100 MG TABLET FEED TUBE (07:54)
[2024-11-12] MEDS: SACCHAROMYCES BOULARDII 250 MG CAPSULE PO (07:54)
[2024-11-12] MEDS: MAGNESIUM SULF 2 GM/WATER 50ML 2 GM/50 ML BAG IVPB (07:54)
[2024-11-12] MEDS: ROSUVASTATIN 10 MG TABLET FEED TUBE (07:57)
[2024-11-12] MEDS: MEROPENEM 1 GM/NS 100 ML 1 GM/100 ML BAG IVPB ×2 (08:00→20:49)
--- NOTE | 2024-11-12 09:24 | P.PNINT_ITS ---
Progress Note: A&P Assessment and Plan (1) Shock: Code(s): R57.9 - Shock, unspecified Status: Acute Assessment and Plan: Patient initially presented with septic shock which had resolved Now patient has developed new hypotension. Suspect aspiration pneumonia versus UTI as patient has had Michelle for more than 2 weeks., or persistent C diff infection CT chest abdomen pelvis ABDOMEN/PELVIS: 1. Free air is seen anteriorly around the liver with minimal fluid. 2. Significant ascites in the pelvis. Drainage tube is seen in the left side of the pelvis. 3. Cholelithiasis with thickened wall of the gallbladder. Evaluation for cholecystitis advised. 4. Slightly dilated small bowel loops in the left upper abdomen which may indicate ileus follow-up advised. 5. Right renal cysts Blood, sputum culture culture are negative till now Michelle changed and UA sent procalcitonin level 8.2 Continue Dificid and meropenem Patient was given IV fluid bolus and now off of IV fluids Off 25% albumin Off Levophed infusion (2) Metabolic encephalopathy: Code(s): G93.41 - Metabolic encephalopathy Status: Acute Assessment and Plan: Patient has had Altered mental status since admission which has been multifactorial Patient was evaluated by Neurology and suspected to have metabolic encephalopathy. -CT brain on presented was negative for intracranial abnormalities. Repeat CT scan 11/08 also unremarkable -MRI cannot be performed as patient was in the [place] and may have sharpnel exposure according to his daughter -10/19: Repeat CT brain did not show any acute intracranial hemorrhage or suspicious mass effect, inflammatory sinus disease. -10/19: CT facial bones showed extensive sinus disease with near complete opacification of the right maxillary sinus and dependently layering fluid in the bilateral sphenoid sinuses. Dental and periodontal disease with periapical lucency surrounding the posterior most remaining right maxillary molar His ammonia level was normal Patient had LP on 10/31 and and only abnormality seen was elevated protein viral studies are pending Patient now awake following commands, hold sedatives. (3) Acute kidney injury: Code(s): N17.9 - Acute kidney failure, unspecified Status: Acute Assessment and Plan: Patient presented with Acute kidney injury which improved with IV fluids Now the creatinine has again went up I suspect this is due to hypovolemia and sepsis Fully replaced CT scan reviewed Patient was given IV fluids and creatinine has again normalized Hold further IV fluid Although his intake and output show that he is significantly volume overloaded. He has had FMS with diarrhea which makes I&Os inaccurate. He does have minimal edema on exam Nephrology following Monitor urine output electrolytes and creatinine CK level is normal Earlier in the course CT scan of the abdomen and pelvis did not show any hydronephrosis or stones and renal ultrasound also showed No hydronephrosis or renal calculi, no apparent, findings to suggest the presence of medical renal disease. Simple cyst within the right kidney (4) Anemia: Code(s): D64.9 - Anemia, unspecified Status: Acute Assessment and Plan: Patient was anemic on presentation and received 2 units of PRBC. He was evaluate by Hematology Stool culture was negative and vitamin B12 were normal Folic acid was low and was supplement -iron panel was unremarkable He had EGD on 11/01 which showed gastritis and previous gastric surgery Hemoglobin dropped to 5.2 which could be partially dilutional versus GI loss 11/09 Transfuse 2 units PRBC Hold Lovenox and use SCDs Continue protonix Monitor hemoglobin 11/12 transfuse 1 unit of PRBC. Re-consult Gastroenterology (5) C. difficile diarrhea: Code(s): A04.72 - Enterocolitis due to Clostridium difficile, not specified as recurrent Status: Acute Assessment and Plan: Continue Dificid. Diarrhea improved. DC IV Flagyl CT abdomen pelvis reviewed (6) Acute respiratory failure: Code(s): J96.00 - Acute respiratory failure, unspecified whether with hypoxia or hypercapnia Status: Acute Assessment and Plan: Patient was extubated yesterday after a successful weaning trial. He is on room air. I will order incentive spirometry Plan DVT prophylaxis: SCDs, Lovenox Stress ulcer prophylaxis: Protonix IV q.12 hours Nutrition: J tube placed, tolerating tube feeds Consult PT OT 11/08 I updated patient's daughter and sister at bedside and answered all their questions. 11/10 I spoke to patient's son by phone and updated him with patient's status. I answered all his questions and explained him the patient is critically ill with multiple issues. I also updated him and current treatment plan and overall guarded prognosis. Code Status: Full code Transfer out ICU today Subjective Date/time seen: 11/12/24 Patient was extubated yesterday after a successful weaning trial. He is awake alert but only partially oriented. He follows commands. He denies pain or shortness of breath but unable to provide any further history. 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 He is tolerating tube feeds through his J-tube. He is not on any infusions and is on room air. He has adequate urine output. Review of system is not obtainable Review of Systems Review of Systems: ROS unobtainable: Yes unobtainable due to mental status Exam Narrative: General: Pt is awake alert but confused Lungs/Chest: Trachea central Coarse BS B/L, few crackles on the left base Cardiac: RRR. Normal S1 S2. No murmurs Circulation: Pedal pulses are intact and symmetrical. Abdomen: Present bowel sounds. Midline incision is under dressing Soft. NT. ND. Extremities: Patient has some edema bilaterally in lower extremity : Michelle in place Neurologic: Patient is awake, confused, has slurred speech from his past CVA. Moves all 4 extremities follows commands with all 4 extremities but left side is definitely weaker than the right side. He is AO x1 PERRL Objective Data Vital Signs Vital Signs: Vital Signs - 24 hr 11/11/24 10:00 11/11/24 10:00 11/11/24 10:00 Temperature 37.0 C Pulse Rate 76 76 74 Respiratory Rate 20 17 Blood Pressure 123/73 123/73 Pulse Oximetry 100 Oxygen Delivery Oxygen Flow Rate Fraction of Inspired Oxygen 11/11/24 10:39 11/11/24 11:28 11/11/24 12:00 Temperature Pulse Rate 68 74 Respiratory Rate Blood Pressure Pulse Oximetry 100 100 99 Oxygen Delivery Mechanical Ventilation Mechanical Ventilation Nasal Cannula Oxygen Flow Rate 2 Fraction of Inspired Oxygen 11/11/24 12:11/11/24 12:11/11/24 12:00 Temperature Pulse Rate 72 72 72 Respiratory Rate 23 H Blood Pressure 110/65 Pulse Oximetry Oxygen Delivery Oxygen Flow Rate Fraction of Inspired Oxygen 11/11/24 12:00 11/11/24 12:00 11/11/24 14:00 Temperature 37.1 C 37.1 C Pulse Rate 72 76 Respiratory Rate 25 H 19 Blood Pressure 110/65 148/80 H Pulse Oximetry 99 100 99 Oxygen Delivery Nasal Cannula Oxygen Flow Rate 2 Fraction of Inspired Oxygen 11/11/24 14:00 11/11/24 14:00 11/11/24 16:00 Temperature 37.3 C Pulse Rate 76 76 80 Respiratory Rate 24 H 24 H Blood Pressure 148/80 H 136/71 Pulse Oximetry 99 Oxygen Delivery Oxygen Flow Rate Fraction of Inspired Oxygen 11/11/24 16:00 11/11/24 16:00 11/11/24 16:00 Temperature Pulse Rate 78 78 Respiratory Rate 17 Blood Pressure 129/95 H Pulse Oximetry 97 Oxygen Delivery Room Air Oxygen Flow Rate Fraction of Inspired Oxygen 11/11/24 16:00 11/11/24 18:00 11/11/24 18:00 Temperature Pulse Rate 83 86 86 Respiratory Rate 22 H Blood Pressure 125/79 Pulse Oximetry Oxygen Delivery Oxygen Flow Rate Fraction of Inspired Oxygen 11/11/24 18:00 11/11/24 19:53 11/11/24 19:55 Temperature 37.1 C Pulse Rate 86 87 86 Respiratory Rate 26 H 23 H Blood Pressure 125/79 Pulse Oximetry 97 Oxygen Delivery Oxygen Flow Rate Fraction of Inspired Oxygen 11/11/24 20:00 11/11/24 20:00 11/11/24 20:00 Temperature 37.2 C Pulse Rate 87 90 Respiratory Rate 28 H Blood Pressure 130/81 Pulse Oximetry 97 Oxygen Delivery Room Air Oxygen Flow Rate Fraction of Inspired Oxygen 11/11/24 20:15 11/11/24 22:00 11/11/24 22:00 Temperature 37.2 C Pulse Rate 81 92 92 Respiratory Rate 23 H Blood Pressure 105/84 Pulse Oximetry 96 96 Oxygen Delivery Room Air Oxygen Flow Rate Fraction of Inspired Oxygen 11/12/24 00:00 11/12/24 00:00 11/12/24 00:00 Temperature 37.2 C Pulse Rate 90 90 Respiratory Rate 18 Blood Pressure 131/84 Pulse Oximetry 98 Oxygen Delivery Room Air Oxygen Flow Rate Fraction of Inspired Oxygen 11/12/24 02:00 11/12/24 02:00 11/12/24 04:00 Temperature 37.2 C Pulse Rate 82 82 Respiratory Rate 25 H Blood Pressure 128/77 Pulse Oximetry 98 Oxygen Delivery Room Air Oxygen Flow Rate Fraction of Inspired Oxygen 11/12/24 04:00 11/12/24 04:00 11/12/24 06:00 Temperature 37.3 C Pulse Rate 85 85 88 Respiratory Rate 18 Blood Pressure 126/84 Pulse Oximetry 96 Oxygen Delivery Oxygen Flow Rate Fraction of Inspired Oxygen 11/12/24 06:00 11/12/24 08:00 11/12/24 08:00 Temperature 37.4 C 37.4 C Pulse Rate 88 89 88 Respiratory Rate 21 H 30 H 30 H Blood Pressure 125/76 122/76 Pulse Oximetry 96 96 96 Oxygen Delivery Room Air Oxygen Flow Rate Fraction of Inspired Oxygen 11/12/24 08:00 Temperature Pulse Rate 88 Respiratory Rate Blood Pressure Pulse Oximetry Oxygen Delivery Oxygen Flow Rate Fraction of Inspired Oxygen Intake/Output Intake/Output: Intake & Output 11/09/24 11/10/24 11/11/24 11/12/24 23:59 23:59 23:59 23:59 Intake Total 1512.1 885.1 1766.9 608 Output Total 1550 3125 2275 800 Balance -37.9 -2239.9 -508.1 -192 Meds/Results Medications: Active Medications Generic Name Dose Route Start Last Admin Trade Name Freq PRN Reason Stop Dose Admin Aspirin 81 mg 11/04/24 08:00 11/12/24 07:54 Aspirin 81 Mg Chewable Tablet FEED TUBE 81 mg DAILY@0800 JHONY Administration Dextrose 12.5 gm 10/17/24 21:26 10/30/24 05:55 Dextrose 50% 25 Gm/50 Ml Syringe IV PUSH 12.5 gm PRN PRN Administration Hypoglycemia Protocol Enoxaparin Sodium 40 mg 11/02/24 09:00 11/09/24 08:18 Enoxaparin 40 Mg/0.4 Ml Syringe SUB-Q 40 mg DAILY JHONY Administration Fidaxomicin 200 mg 11/08/24 09:00 11/12/24 07:53 Fidaxomicin 200 Mg Tablet FEED TUBE 11/18/24 08:59 200 mg Q12HR JHONY Administration Folic Acid 1 mg 10/24/24 09:00 11/12/24 07:54 Folic Acid 1 Mg Tablet FEED TUBE 1 mg QAM JHONY Administration Furosemide 40 mg 11/12/24 12:00 Furosemide Inj 40 Mg/4 Ml Vial IV PUSH 11/12/24 12:01 ONCE ONE Glucagon 1 mg 10/17/24 21:26 Glucagon For Inj 1 Mg Vial IM PRN PRN Hypoglycemia Protocol Glucose 15 gm 10/17/24 21:26 Glucose Oral Gel 15 Gm Of Glucse In 37.5 Gm Tube PO PRN PRN Hypoglycemia Protocol Dextrose 1,000 mls @ 100 mls/hr 10/17/24 21:26 Dextrose 5% 1,000 Ml IVPB PRN PRN Hypoglycemia Protocol Norepinephrine Bitartrate 8 mg in 250 mls @ 0 mls/hr 11/08/24 08:05 11/11/24 19:55 Levophed 8 Mg/D5w 250 Ml IV CONT Infused .Q0M JHONY Titration Protocol 0 MCG/MIN Meropenem 1 gm in 100 mls @ 200 mls/hr 11/08/24 11:30 11/12/24 08:59 IVPB Infused Q12HR JHONY Infusion Sodium Chloride 250 mls @ 30 mls/hr 11/12/24 06:52 Normal Saline Iv IV CONT 11/12/24 15:11 .Q8H20M STA Magnesium Sulfate 2 gm in 50 mls @ 25 mls/hr 11/12/24 08:00 11/12/24 07:54 Magnesium Sulf 2 Gm/Water 50ml IVPB 11/12/24 09:59 25 mls/hr ONCE ONE Administration Insulin Aspart 3 - 6 units 11/08/24 12:00 11/12/24 06:01 Insulin Aspart (*Bkc) 100 Units/Ml SUB-Q Not Given Q6HR JHONY Protocol Pantoprazole Sodium 40 mg 10/18/24 21:00 11/12/24 07:54 Pantoprazole Sodium Iv 40 Mg Vial IV PUSH 40 mg Q12HR JHONY Administration Potassium Chloride 40 meq 11/12/24 07:45 11/12/24 07:54 Potassium Chloride 20 Meq Packet (For Liquid) FEED TUBE 11/12/24 13:46 40 meq Q6H JHONY Administration Rosuvastatin Calcium 10 mg 11/04/24 09:00 11/12/24 07:57 Rosuvastatin 10 Mg Tablet FEED TUBE 10 mg DAILY JHONY Administration Saccharomyces Boulardii 250 mg 11/05/24 09:00 11/12/24 07:54 Saccharomyces Boulardii 250 Mg Capsule PO 250 mg DAILY JHONY Administration Sodium Bicarbonate 650 mg 11/12/24 09:00 11/12/24 07:53 Sodium Bicarbonate Tab 650 Mg Tablet FEED TUBE 11/13/24 17:01 650 mg BID JHONY Administration Sodium Chloride 10 ml 11/08/24 14:00 11/12/24 06:01 Central Line Flush IV PUSH 10 ml Q8HR JHONY Administration Sodium Chloride 10 ml 11/08/24 08:15 Central Line Flush IV PUSH PRN PRN with TPN bag changes Sodium Chloride 20 ml 11/08/24 08:15 06/22/25 06:50 Central Line Flush IV PUSH 20 ml PRN PRN Administration after blood draws Thiamine HCl 100 mg 10/24/24 09:00 11/12/24 07:54 Thiamine Hcl 100 Mg Tablet FEED TUBE 100 mg QAM JHONY Administration Radiology Results: ITS Impressions Face CT 10/19/24 09:39 IMPRESSION: 1. Extensive sinus disease with near complete opacification of the right maxillary sinus and dependently layering fluid in the bilateral sphenoid sinuses. Correlate clinically for acute sinusitis. 2. Dental and periodontal disease with periapical lucency surrounding the posterior most remaining right maxillary molar. Renal Ultrasound 10/19/24 09:48 IMPRESSION: No hydronephrosis or renal calculi. No parenchymal findings to suggest the presence of medical renal disease. Simple cysts within the right kidney, for which no further follow-up is needed. Brain MRI 10/24/24 14:22 IMPRESSION: 1. Age-related changes the brain. No acute intracranial process. 2. Prominent sinus disease with fluid nearly filling the right maxillary sinus and layering dependently in the bilateral sphenoid sinuses. Correlate clinically for acute sinusitis. Lumbar Puncture Fluoroscopy 10/31/24 17:34 IMPRESSION: 1. Successful fluoro-guided lumbar puncture with mildly elevated opening pressure of 23 cm water. Modified Barium Swallow 11/06/24 10:05 IMPRESSION: Nondiagnostic study as all contents either leaked or were actively expelled from the mouth. No swallows were able to be evaluated. Please correlate with speech pathologist findings and specific feeding recommendations. Abdomen X-Ray 11/08/24 07:55 Impression: NG tube in satisfactory position. Probable small bowel obstruction. Head CT 11/08/24 09:52 IMPRESSION: No acute intracranial findings. Chest/Abdomen/Pelvis CT 11/08/24 09:59 IMPRESSION: CHEST: 1. Right basilar atelectasis versus pneumonia with pleural effusion. 2. No other acute cardiopulmonary pathology. ABDOMEN/PELVIS: 1. Free air is seen anteriorly around the liver with minimal fluid. 2. Significant ascites in the pelvis. Drainage tube is seen in the left side of the pelvis. 3. Cholelithiasis with thickened wall of the gallbladder. Evaluation for cholecystitis advised. 4. Slightly dilated small bowel loops in the left upper abdomen which may indicate ileus follow-up advised. 5. Right renal cysts. Upper GI Series 11/09/24 13:49 IMPRESSION: 1. Left lower quadrant jejunostomy tube in expected position with injected contrast opacifying the normal-appearing jejunum with no extraluminal leakage of contrast. Chest X-Ray 11/12/24 05:42 Impression: Low lung volumes with probable vascular crowding centrally versus minimal central congestive change. Support tubes, as above. Labs Labs: Laboratory Results - last 24 hr 11/11/24 11/11/24 11/11/24 11:20 11:40 18:36 WBC RBC Hgb Hct MCV MCH MCHC RDW Plt Count MPV Puncture Site Left radial ABG pH 7.489 H ABG pCO2 30.8 L ABG pO2 97.8 ABG PO2/FiO2 Ratio 3.91 ABG HCO3 22.9 ABG O2 Saturation 97.9 ABG O2 Content 12.5 L ABG Base Excess -0.1 A-a Gradient 43.9 Oxyhemoglobin 97.1 Total Hemoglobin 9.0 L O2 Delivery Device Ventilator O2 Liters/Min Not Reportable Minute Volume Not Reportable Vent Rate Not Reportable Vent Mode Spontaneous FiO2 25 Tidal Volume Not Reportable PEEP 5 Peak Inspir Pressure Not Reportable Pressure Support 5 Sodium Potassium Chloride Carbon Dioxide Anion Gap BUN Creatinine Estim Creat Clear Calc Estimated GFR Glucose POC Capillary Glucose 100 91 Calcium Phosphorus Magnesium Total Bilirubin AST ALT Alkaline Phosphatase Total Protein Albumin Blood Type Antibody Screen Crossmatch 11/11/24 11/12/24 11/12/24 23:47 06:00 06:36 WBC 9.1 RBC 2.27 L Hgb 6.6 L* Hct 22.7 L MCV 100.0 D MCH 29.1 MCHC 29.1 L RDW 19.3 H Plt Count 288 MPV 10.1 Puncture Site ABG pH ABG pCO2 ABG pO2 ABG PO2/FiO2 Ratio ABG HCO3 ABG O2 Saturation ABG O2 Content ABG Base Excess A-a Gradient Oxyhemoglobin Total Hemoglobin O2 Delivery Device O2 Liters/Min Minute Volume Vent Rate Vent Mode FiO2 Tidal Volume PEEP Peak Inspir Pressure Pressure Support Sodium 140 Potassium 3.5 Chloride 112 H Carbon Dioxide 19 L Anion Gap 9 BUN 20 Creatinine 0.67 L Estim Creat Clear Calc 85 Estimated GFR > 60 Glucose 99 POC Capillary Glucose 90 95 Calcium 8.3 L Phosphorus 3.9 Magnesium 1.6 Total Bilirubin 1.1 AST 31 ALT 13 Alkaline Phosphatase 109 Total Protein 6.4 Albumin 2.8 L Blood Type Antibody Screen Crossmatch 11/12/24 07:30 WBC RBC Hgb Hct MCV MCH MCHC RDW Plt Count MPV Puncture Site ABG pH ABG pCO2 ABG pO2 ABG PO2/FiO2 Ratio ABG HCO3 ABG O2 Saturation ABG O2 Content ABG Base Excess A-a Gradient Oxyhemoglobin Total Hemoglobin O2 Delivery Device O2 Liters/Min Minute Volume Vent Rate Vent Mode FiO2 Tidal Volume PEEP Peak Inspir Pressure Pressure Support Sodium Potassium Chloride Carbon Dioxide Anion Gap BUN Creatinine Estim Creat Clear Calc Estimated GFR Glucose POC Capillary Glucose Calcium Phosphorus Magnesium Total Bilirubin AST ALT Alkaline Phosphatase Total Protein Albumin Blood Type B Negative Antibody Screen Negative Crossmatch See Detail Quality VTE Prophylaxis VTE prophylaxis: mechanical ordered
[2024-11-12] MEDS: FUROSEMIDE INJ 40 MG/4 ML VIAL IV PUSH (12:16)
--- NOTE | 2024-11-12 12:33 | PCFNICU ---
ICU Rounding Note: Pt current nutrition is Vital AF 1.2 at 55 ml/hr. Nutrition recommendation: Jevity 1.5 at 55 ml/hr. Last recorded weight is 71.4 kg, up from 66 kg on admit. Bowel Motility: FMS Labs Reviewed:Cr .67, BUN 34, Cr 1.76, Alb 2.8 Meds Noted:Lovenox, Protonix, Thiamine, Folic Acid, NS, Rocephin. Skin: WNL Additional Notes: Patient has been extubated. Tube feeding formula changed to Jevity 1.5 at 55 ml/hr via J tube. Total Nutrition: 1815 kcal/84 gm protein/920 ml water. Flush 30 ml q 4 hours. Agree with diet orders. Following daily in ICU rounds. will monitor weight, labs, skin, diet orders, meds every Tuesday and Tuesday.
[2024-11-12 15:57] LABS: Hematocrit 32.7 % (42.0-52.0); Hemoglobin 10.7 g/dL (14.0-18.0)
--- NOTE | 2024-11-12 20:15 | WPDGIPROGNO ---
Progress Note: A&P Assessment and Plan (1) Anemia: Code(s): D64.9 - Anemia, unspecified Status: Acute Assessment and Plan: Our service is consulted for the finding of anemia, with a moderate drop in hematocrit over the past 24 hours. This problem has been extensively discussed, please kindly refer to our previous note on 10/28/2024. patient has been subjected to multiple acute events, including sepsis which can easily explain this drop in hemoglobin. The patient had a nasogastric tube draining clear bile and there is no evidence of melena or Rectal bleeding. If his condition changes, i.e., overt GI bleeding and not just a slight drop in hemoglobin, endoscopic procedures are not indicated at this time. Please feel free to contact us should these events occur. Subjective Date/time seen: 11/12/24 20:15 Objective Data Vital Signs Vital Signs: Vital Signs - 24 hr 11/11/24 22:00 11/11/24 22:00 11/12/24 00:00 Temperature 99.0 F Pulse Rate 92 92 Respiratory Rate 23 H Blood Pressure 105/84 Pulse Oximetry 96 Oxygen Delivery Room Air 11/12/24 00:00 11/12/24 00:00 11/12/24 02:00 Temperature 99.0 F Pulse Rate 90 90 82 Respiratory Rate 18 Blood Pressure 131/84 Pulse Oximetry 98 Oxygen Delivery 11/12/24 02:00 11/12/24 04:00 11/12/24 04:00 Temperature 99.0 F Pulse Rate 82 85 Respiratory Rate 25 H Blood Pressure 128/77 Pulse Oximetry 98 Oxygen Delivery Room Air 11/12/24 04:00 11/12/24 06:00 11/12/24 06:00 Temperature 99.1 F 99.3 F Pulse Rate 85 88 88 Respiratory Rate 18 21 H Blood Pressure 126/84 125/76 Pulse Oximetry 96 96 Oxygen Delivery 11/12/24 08:00 11/12/24 08:00 11/12/24 08:00 Temperature 99.3 F Pulse Rate 89 88 88 Respiratory Rate 30 H 30 H Blood Pressure 122/76 Pulse Oximetry 96 96 Oxygen Delivery Room Air 11/12/24 09:56 11/12/24 10:00 11/12/24 10:00 Temperature 99.3 F 99.4 F Pulse Rate 91 87 88 Respiratory Rate 17 24 H Blood Pressure 130/73 128/81 Pulse Oximetry 93 96 Oxygen Delivery 11/12/24 10:12 11/12/24 11:12 11/12/24 12:00 Temperature 99.4 F 99.5 F Pulse Rate 87 88 90 Respiratory Rate 24 H 25 H 26 H Blood Pressure 125/81 143/83 H Pulse Oximetry 96 97 97 Oxygen Delivery Room Air 11/12/24 12:00 11/12/24 12:00 11/12/24 12:12 Temperature 99.6 F 99.7 F H Pulse Rate 90 90 89 Respiratory Rate 26 H 28 H Blood Pressure 131/89 142/85 H Pulse Oximetry 98 97 Oxygen Delivery 11/12/24 13:30 11/12/24 13:43 11/12/24 14:00 Temperature Pulse Rate 94 Respiratory Rate Blood Pressure Pulse Oximetry Oxygen Delivery Room Air Room Air 11/12/24 15:56 11/12/24 16:00 11/12/24 16:00 Temperature 100.3 F H Pulse Rate 95 93 94 Respiratory Rate 20 24 H Blood Pressure 134/84 Pulse Oximetry 97 97 Oxygen Delivery Room Air 11/12/24 18:00 11/12/24 20:00 Temperature 100.6 F H Pulse Rate 94 94 Respiratory Rate 18 Blood Pressure 134/74 Pulse Oximetry 96 Oxygen Delivery Intake/Output Intake/Output: Intake & Output 11/09/24 11/10/24 11/11/24 11/12/24 23:59 23:59 23:59 23:59 Intake Total 1512.1 885.1 1766.9 1568 Output Total 1550 3125 2275 3650 [facility] [place] -37.9 -2239.9 -508.1 -2082 Meds/Results Medications: Active Medications Generic Name Dose Route Start Last Admin Trade Name Freq PRN Reason Stop Dose Admin Acetaminophen 650 mg 11/12/24 19:11 Acetaminophen Elixir 325 Mg/10.15 Ml Udc PO Q6H PRN Fever >101 Aspirin 81 mg 11/04/24 08:00 11/12/24 07:54 Aspirin 81 Mg Chewable Tablet FEED TUBE 81 mg DAILY@0800 JHONY Administration Dextrose 12.5 gm 10/17/24 21:26 10/30/24 05:55 Dextrose 50% 25 Gm/50 Ml Syringe IV PUSH 12.5 gm PRN PRN Administration Hypoglycemia Protocol Enoxaparin Sodium 40 mg 11/02/24 09:00 11/09/24 08:18 Enoxaparin 40 Mg/0.4 Ml Syringe SUB-Q 40 mg DAILY JHONY Administration Fidaxomicin 200 mg 11/08/24 09:00 11/12/24 07:53 Fidaxomicin 200 Mg Tablet FEED TUBE 11/18/24 08:59 200 mg Q12HR JHONY Administration Folic Acid 1 mg 10/24/24 09:00 11/12/24 07:54 Folic Acid 1 Mg Tablet FEED TUBE 1 mg QAM JHONY Administration Glucagon 1 mg 10/17/24 21:26 Glucagon For Inj 1 Mg Vial IM PRN PRN Hypoglycemia Protocol Glucose 15 gm 10/17/24 21:26 Glucose Oral Gel 15 Gm Of Glucse In 37.5 Gm Tube PO PRN PRN Hypoglycemia Protocol Dextrose 1,000 mls @ 100 mls/hr 10/17/24 21:26 Dextrose 5% 1,000 Ml IVPB PRN PRN Hypoglycemia Protocol Meropenem 1 gm in 100 mls @ 200 mls/hr 11/08/24 11:30 11/12/24 08:59 IVPB Infused Q12HR JHONY Infusion Insulin Aspart 3 - 6 units 11/08/24 12:00 11/12/24 17:38 Insulin Aspart (*Bkc) 100 Units/Ml SUB-Q Not Given Q6HR JHONY Protocol Pantoprazole Sodium 40 mg 10/18/24 21:00 11/12/24 07:54 Pantoprazole Sodium Iv 40 Mg Vial IV PUSH 40 mg Q12HR JHONY Administration Rosuvastatin Calcium 10 mg 11/04/24 09:00 11/12/24 07:57 Rosuvastatin 10 Mg Tablet FEED TUBE 10 mg DAILY JHONY Administration Saccharomyces Boulardii 250 mg 11/05/24 09:00 11/12/24 07:54 Saccharomyces Boulardii 250 Mg Capsule PO 250 mg DAILY JHONY Administration Sodium Bicarbonate 650 mg 11/12/24 09:00 11/12/24 17:37 Sodium Bicarbonate Tab 650 Mg Tablet FEED TUBE 11/13/24 17:01 650 mg BID JHONY Administration Sodium Chloride 10 ml 11/08/24 14:00 11/12/24 15:34 Central Line Flush IV PUSH 10 ml Q8HR JHONY Administration Sodium Chloride 10 ml 11/08/24 08:15 Central Line Flush IV PUSH PRN PRN with TPN bag changes Sodium Chloride 20 ml 11/08/24 08:15 06/22/25 06:50 Central Line Flush IV PUSH 20 ml PRN PRN Administration after blood draws Thiamine HCl 100 mg 10/24/24 09:00 11/12/24 07:54 Thiamine Hcl 100 Mg Tablet FEED TUBE 100 mg QAM JHONY Administration Radiology Results: ITS Impressions Face CT 10/19/24 09:39 IMPRESSION: 1. Extensive sinus disease with near complete opacification of the right maxillary sinus and dependently layering fluid in the bilateral sphenoid sinuses. Correlate clinically for acute sinusitis. 2. Dental and periodontal disease with periapical lucency surrounding the posterior most remaining right maxillary molar. Renal Ultrasound 10/19/24 09:48 IMPRESSION: No hydronephrosis or renal calculi. No parenchymal findings to suggest the presence of medical renal disease. Simple cysts within the right kidney, for which no further follow-up is needed. Brain MRI 10/24/24 14:22 IMPRESSION: 1. Age-related changes the brain. No acute intracranial process. 2. Prominent sinus disease with fluid nearly filling the right maxillary sinus and layering dependently in the bilateral sphenoid sinuses. Correlate clinically for acute sinusitis. Lumbar Puncture Fluoroscopy 10/31/24 17:34 IMPRESSION: 1. Successful fluoro-guided lumbar puncture with mildly elevated opening pressure of 23 cm water. Modified Barium Swallow 11/06/24 10:05 IMPRESSION: Nondiagnostic study as all contents either leaked or were actively expelled from the mouth. No swallows were able to be evaluated. Please correlate with speech pathologist findings and specific feeding recommendations. Abdomen X-Ray 11/08/24 07:55 Impression: NG tube in satisfactory position. Probable small bowel obstruction. Head CT 11/08/24 09:52 IMPRESSION: No acute intracranial findings. Chest/Abdomen/Pelvis CT 11/08/24 09:59 IMPRESSION: CHEST: 1. Right basilar atelectasis versus pneumonia with pleural effusion. 2. No other acute cardiopulmonary pathology. ABDOMEN/PELVIS: 1. Free air is seen anteriorly around the liver with minimal fluid. 2. Significant ascites in the pelvis. Drainage tube is seen in the left side of the pelvis. 3. Cholelithiasis with thickened wall of the gallbladder. Evaluation for cholecystitis advised. 4. Slightly dilated small bowel loops in the left upper abdomen which may indicate ileus follow-up advised. 5. Right renal cysts. Upper GI Series 11/09/24 13:49 IMPRESSION: 1. Left lower quadrant jejunostomy tube in expected position with injected contrast opacifying the normal-appearing jejunum with no extraluminal leakage of contrast. Chest X-Ray 11/12/24 05:42 Impression: Low lung volumes with probable vascular crowding centrally versus minimal central congestive change. Support tubes, as above. Labs Labs: Laboratory Results - last 24 hr 11/11/24 11/12/24 11/12/24 23:47 06:00 06:36 WBC 9.1 RBC 2.27 L Hgb 6.6 L* Hct 22.7 L MCV 100.0 D MCH 29.1 MCHC 29.1 L RDW 19.3 H Plt Count 288 MPV 10.1 Sodium 140 Potassium 3.5 Chloride 112 H Carbon Dioxide 19 L Anion Gap 9 BUN 20 Creatinine 0.67 L Estim Creat Clear Calc 85 Estimated GFR > 60 Glucose 99 POC Capillary Glucose 90 95 Calcium 8.3 L Phosphorus 3.9 Magnesium 1.6 Total Bilirubin 1.1 AST 31 ALT 13 Alkaline Phosphatase 109 Total Protein 6.4 Albumin 2.8 L Blood Type Antibody Screen Crossmatch 11/12/24 11/12/24 11/12/24 07:30 12:13 15:49 WBC RBC Hgb 10.7 L D Hct 32.7 L MCV MCH MCHC RDW Plt Count MPV Sodium Potassium Chloride Carbon Dioxide Anion Gap BUN Creatinine Estim Creat Clear Calc Estimated GFR Glucose POC Capillary Glucose 96 Calcium Phosphorus Magnesium Total Bilirubin AST ALT Alkaline Phosphatase Total Protein Albumin Blood Type B Negative Antibody Screen Negative Crossmatch See Detail 11/12/24 17:34 WBC RBC Hgb Hct MCV MCH MCHC RDW Plt Count MPV Sodium Potassium Chloride Carbon Dioxide Anion Gap BUN Creatinine Estim Creat Clear Calc Estimated GFR Glucose POC Capillary Glucose 93 Calcium Phosphorus Magnesium Total Bilirubin AST ALT Alkaline Phosphatase Total Protein Albumin Blood Type Antibody Screen Crossmatch
[2024-11-13] VITALS (7 sets, daily range): BP systolic 118–146; BP diastolic 73–90; PULSE 65–96; RESP 16–25; TEMP 35.7–37.9; O2SAT 94–100; BMI 10.0
[2024-11-13 04:22] LABS: Hematocrit 32.3 % (42.0-52.0); Hemoglobin 10.4 g/dL (14.0-18.0); Mean Corpuscular HGB Conc 32.2 g/dl (32-36); Mean Corpuscular Hemoglobin 29.4 pg (26-34); Mean Corpuscular Volume 91.2 fl (80-100); Platelet Count Result 363 k/mm3 (150-375); Red Blood Count 3.54 M/mm3 (4.6-6.20); White Blood Count 12.7 K/mm3 (4.5-10.0)
[2024-11-13 04:28] LABS: Alveolar/Arterial O2 Gradient 32.2 mmHg; Carboxyhemoglobin 0.5 % THb (0-2.0); Fractional Inspired Oxygen 21 %; HCO3 ABG 24.5 mEq/l (22.0-26.0); Methemoglobin ABG 0.1 %THb (0-1.5); Oxygen Content ABG 15.7 %vol (16.0-22.0); Oxygen Saturation ABG 96.5 % (95.0-100.0); PCO2 ABG 32.8 mmHg (35.0-45.0); PO2 ABG 78.3 mmHg (80.0-100.0); PO2 FiO2 Ratio Arterial Blood 3.73 %; Reduced Hemoglobin 4.1 %THb (0-5.0)
[2024-11-13 04:30] LABS: Modified Allen's Test Pass; Site Drawn RIGHT RADIAL
[2024-11-13 04:38] LABS: Alanine Aminotransferase 15 U/L (6-50); Albumin Level 3.1 g/dL (3.5-5.1); Alkaline Phosphatase 129 U/L (38-126); Anion Gap 11 mmol/L (4-12); Aspartate Amino Transferase 34 U/L (17-59); Bilirubin,Total 1.7 mg/dL (0.2-1.3); Blood Urea Nitrogen 17 mg/dL (9-20); Calcium 8.6 mg/dL (8.4-10.2); Carbon Dioxide 21 mmol/L (22-30); Chloride 110 mmol/L (98-107); Estimated CRCL calculation 84 ml/min; Estimated Glomerular Filt Rate > 60; Glucose 117 mg/dL (65-110); Magnesium 1.6 mg/dL (1.6-2.3); Potassium 4.0 mmol/L (3.4-5.0); Sodium 142 mmol/L (137-145); Total Protein 7.0 g/dL (6.3-8.2)
[2024-11-13] MEDS: CENTRAL LINE FLUSH 10 ML IV PUSH ×2 (05:43→21:23)
[2024-11-13] MEDS: FOLIC ACID 1 MG TABLET FEED TUBE (09:14)
[2024-11-13] MEDS: MEROPENEM 1 GM/NS 100 ML 1 GM/100 ML BAG IVPB ×2 (09:14→21:23)
[2024-11-13] MEDS: PANTOPRAZOLE SODIUM IV 40 MG VIAL IV PUSH ×2 (09:14→21:22)
[2024-11-13] MEDS: SACCHAROMYCES BOULARDII 250 MG CAPSULE PO (09:14)
[2024-11-13] MEDS: ROSUVASTATIN 10 MG TABLET FEED TUBE (09:14)
[2024-11-13] MEDS: FIDAXOMICIN 200 MG TABLET FEED TUBE ×2 (09:14→21:23)
[2024-11-13] MEDS: ASPIRIN 81 MG CHEWABLE TABLET FEED TUBE (09:14)
[2024-11-13] MEDS: THIAMINE HCL 100 MG TABLET FEED TUBE (09:14)
[2024-11-13] MEDS: SODIUM BICARBONATE TAB 650 MG TABLET FEED TUBE ×2 (09:15→16:54)
--- NOTE | 2024-11-13 10:09 | PM.PNGS ---
Progress Note: A&P Assessment and Plan (1) Shock: Code(s): R57.9 - Shock, unspecified Status: Acute Assessment and Plan: Patient now extubated and off vasopressor support. He will be transferred out of the ICU today. His WBC count did go up to 12,700 today and he started having low grade fevers last night. His incision is healing well with no signs of infection. I reassessed all of his wounds, which do not have any signs of infection. His right lateral chest wound does have some superficial slough and dark eschar, so I will change his wound care to Santyl dressing changes for now and monitor. He is not having any issues with his jejunostomy tube and is tolerating tube feedings at goal. He still has the rectal tube in place with large amounts of stool output. His CT scan from last week also showed cholelithiasis with gallbladder wall thickening, but he is not having any abdominal pain and is completely nontender in the RUQ on exam. Continue IV antibiotics for now. Will discuss further with Dr. Ortiz, although I would anticipate some tenderness on exam if he were to have acute cholecystitis causing his leukocytosis and fevers. Will also clamp his NG tube for now. Consider removing later today or tomorrow if he is able to tolerate a clamping trial. Subjective Subjective Date/Time Seen: 11/13/24 10:09 Patient reports: fever (Tmax 100.6F overnight) Interval history: Patient seen in the ICU. He is extubated and alert this morning. He will answer questions. He denies any abdominal pain. He is in soft wrist restraints as he has been pulling at lines. He currently has a rectal tube with liquid stool coming through. He is tolerating tube feedings Through his jejunostomy tube. NG tube still in place to low intermittent suction and they are getting about 200-300 cc output every shift from the NG. Review of Systems Review of Systems: ROS unobtainable: Yes unobtainable due to mental status Exam Const: General: comfortable and no acute distress Orientation/consciousness: confusion GI: Inspection: non-distended and incision (midline incision dry and skin edges well approximated, no erythema) GI Palp: Yes Soft to palpation, No Tenderness to palpation present (GI), No Guarding due to palpation present (GI) and No Rebound tenderness present Auscultation: normal bowel sounds Other: jejunostomy tube in place, dressing dry and intact, no surrounding erythema Rectal tube with liquid light jones colored stool Right lateral chest wound that appears superficial with jones/yellow slough in the wound bed with a central darker brown area that is firm with no fluctuance, no purulent drainage, no crepitus. This area is nontender. There is epithelialization circumferentially around the edges of the wound. No surrounding erythema or cellulitic changes of the skin around the wound. Urinary Catheter: Urinary Catheter: patent and draining Skin: Other: Superficial bilateral buttock friction maceration noted with three small (<2-3 cm) open wounds that are superficial with a healthy appearing pink wound bed, no necrotic tissue or purulent drainage. Objective Data Vital Signs Vital Signs: Vital Signs - 24 hr 11/12/24 10:12 11/12/24 11:12 11/12/24 12:00 Temperature 99.4 F 99.5 F Pulse Rate 87 88 90 Respiratory Rate 24 H 25 H 26 H Blood Pressure 125/81 143/83 H Pulse Oximetry 96 97 97 Oxygen Delivery Room Air 11/12/24 12:00 11/12/24 12:00 11/12/24 12:12 Temperature 99.6 F 99.7 F H Pulse Rate 90 90 89 Respiratory Rate 26 H 28 H Blood Pressure 131/89 142/85 H Pulse Oximetry 98 97 Oxygen Delivery 11/12/24 13:30 11/12/24 13:43 11/12/24 14:00 Temperature Pulse Rate 94 Respiratory Rate Blood Pressure Pulse Oximetry Oxygen Delivery Room Air Room Air 11/12/24 15:56 11/12/24 16:00 11/12/24 16:00 Temperature 100.3 F H Pulse Rate 95 93 94 Respiratory Rate 20 24 H Blood Pressure 134/84 Pulse Oximetry 97 97 Oxygen Delivery Room Air 11/12/24 18:00 11/12/24 20:00 11/12/24 20:00 Temperature 100.6 F H Pulse Rate 94 94 94 Respiratory Rate 18 Blood Pressure 134/74 Pulse Oximetry 96 Oxygen Delivery 11/12/24 20:00 11/12/24 22:00 11/13/24 00:00 Temperature Pulse Rate 93 Respiratory Rate Blood Pressure Pulse Oximetry Oxygen Delivery Room Air Room Air 11/13/24 00:00 11/13/24 00:00 11/13/24 02:00 Temperature 100.2 F H Pulse Rate 94 94 96 Respiratory Rate 25 H Blood Pressure 146/86 H Pulse Oximetry 97 Oxygen Delivery 11/13/24 04:00 11/13/24 04:00 11/13/24 04:00 Temperature 100.0 F H Pulse Rate 96 96 Respiratory Rate 24 H Blood Pressure 132/85 Pulse Oximetry 98 Oxygen Delivery Room Air 11/13/24 06:00 11/13/24 08:00 Temperature 99.9 F H Pulse Rate 93 94 Respiratory Rate 19 Blood Pressure 138/84 Pulse Oximetry 100 Oxygen Delivery Intake/Output Intake/Output: Intake & Output 11/10/24 11/11/24 11/12/24 11/13/24 23:59 23:59 23:59 23:59 Intake Total 885.1 1766.9 1668 697 Output Total 3125 2275 3650 1425 [facility] -2239.9 -508.1 -1982 -728 Meds/Results Medications: Active Medications Generic Name Dose Route Start Last Admin Trade Name Freq PRN Reason Stop Dose Admin Acetaminophen 650 mg 11/12/24 19:11 Acetaminophen Elixir 325 Mg/10.15 Ml Udc PO Q6H PRN Fever >101 Aspirin 81 mg 11/04/24 08:00 11/13/24 09:14 Aspirin 81 Mg Chewable Tablet FEED TUBE 81 mg DAILY@0800 JHONY Administration Collagenase 1 applic 11/13/24 09:00 Collagenase Oint 30 Gm Tube TOPICAL Q12HR JHONY Dextrose 12.5 gm 10/17/24 21:26 10/30/24 05:55 Dextrose 50% 25 Gm/50 Ml Syringe IV PUSH 12.5 gm PRN PRN Administration Hypoglycemia Protocol Enoxaparin Sodium 40 mg 11/02/24 09:00 11/09/24 08:18 Enoxaparin 40 Mg/0.4 Ml Syringe SUB-Q 40 mg DAILY JHONY Administration Fidaxomicin 200 mg 11/08/24 09:00 11/13/24 09:14 Fidaxomicin 200 Mg Tablet FEED TUBE 11/18/24 08:59 200 mg Q12HR JHONY Administration Folic Acid 1 mg 10/24/24 09:00 11/13/24 09:14 Folic Acid 1 Mg Tablet FEED TUBE 1 mg QAM JHONY Administration Glucagon 1 mg 10/17/24 21:26 Glucagon For Inj 1 Mg Vial IM PRN PRN Hypoglycemia Protocol Glucose 15 gm 10/17/24 21:26 Glucose Oral Gel 15 Gm Of Glucse In 37.5 Gm Tube PO PRN PRN Hypoglycemia Protocol Dextrose 1,000 mls @ 100 mls/hr 10/17/24 21:26 Dextrose 5% 1,000 Ml IVPB PRN PRN Hypoglycemia Protocol Meropenem 1 gm in 100 mls @ 200 mls/hr 11/08/24 11:30 11/13/24 09:14 IVPB 200 mls/hr Q12HR JHONY Administration Insulin Aspart 3 - 6 units 11/08/24 12:00 11/13/24 05:27 Insulin Aspart (*Bkc) 100 Units/Ml SUB-Q Not Given Q6HR JHONY Protocol Pantoprazole Sodium 40 mg 10/18/24 21:00 11/13/24 09:14 Pantoprazole Sodium Iv 40 Mg Vial IV PUSH 40 mg Q12HR JHONY Administration Rosuvastatin Calcium 10 mg 11/04/24 09:00 11/13/24 09:14 Rosuvastatin 10 Mg Tablet FEED TUBE 10 mg DAILY JHONY Administration Saccharomyces Boulardii 250 mg 11/05/24 09:00 11/13/24 09:14 Saccharomyces Boulardii 250 Mg Capsule PO 250 mg DAILY JHONY Administration Sodium Bicarbonate 650 mg 11/12/24 09:00 11/13/24 09:15 Sodium Bicarbonate Tab 650 Mg Tablet FEED TUBE 11/13/24 17:01 650 mg BID JHONY Administration Sodium Chloride 10 ml 11/08/24 14:00 11/13/24 05:43 Central Line Flush IV PUSH 10 ml Q8HR JHONY Administration Sodium Chloride 10 ml 11/08/24 08:15 Central Line Flush IV PUSH PRN PRN with TPN bag changes Sodium Chloride 20 ml 11/08/24 08:15 11/11/24 06:50 Central Line Flush IV PUSH 20 ml PRN PRN Administration after blood draws Thiamine HCl 100 mg 10/24/24 09:00 11/13/24 09:14 Thiamine Hcl 100 Mg Tablet FEED TUBE 100 mg QAM JHONY Administration Radiology Results: ITS Impressions Face CT 10/19/24 09:39 IMPRESSION: 1. Extensive sinus disease with near complete opacification of the right maxillary sinus and dependently layering fluid in the bilateral sphenoid sinuses. Correlate clinically for acute sinusitis. 2. Dental and periodontal disease with periapical lucency surrounding the posterior most remaining right maxillary molar. Renal Ultrasound 10/19/24 09:48 IMPRESSION: No hydronephrosis or renal calculi. No parenchymal findings to suggest the presence of medical renal disease. Simple cysts within the right kidney, for which no further follow-up is needed. Brain MRI 10/24/24 14:22 IMPRESSION: 1. Age-related changes the brain. No acute intracranial process. 2. Prominent sinus disease with fluid nearly filling the right maxillary sinus and layering dependently in the bilateral sphenoid sinuses. Correlate clinically for acute sinusitis. Lumbar Puncture Fluoroscopy 10/31/24 17:34 IMPRESSION: 1. Successful fluoro-guided lumbar puncture with mildly elevated opening pressure of 23 cm water. Modified Barium Swallow 11/06/24 10:05 IMPRESSION: Nondiagnostic study as all contents either leaked or were actively expelled from the mouth. No swallows were able to be evaluated. Please correlate with speech pathologist findings and specific feeding recommendations. Abdomen X-Ray 11/08/24 07:55 Impression: NG tube in satisfactory position. Probable small bowel obstruction. Head CT 11/08/24 09:52 IMPRESSION: No acute intracranial findings. Chest/Abdomen/Pelvis CT 11/08/24 09:59 IMPRESSION: CHEST: 1. Right basilar atelectasis versus pneumonia with pleural effusion. 2. No other acute cardiopulmonary pathology. ABDOMEN/PELVIS: 1. Free air is seen anteriorly around the liver with minimal fluid. 2. Significant ascites in the pelvis. Drainage tube is seen in the left side of the pelvis. 3. Cholelithiasis with thickened wall of the gallbladder. Evaluation for cholecystitis advised. 4. Slightly dilated small bowel loops in the left upper abdomen which may indicate ileus follow-up advised. 5. Right renal cysts. Upper GI Series 11/09/24 13:49 IMPRESSION: 1. Left lower quadrant jejunostomy tube in expected position with injected contrast opacifying the normal-appearing jejunum with no extraluminal leakage of contrast. Chest X-Ray 11/12/24 05:42 Impression: Low lung volumes with probable vascular crowding centrally versus minimal central congestive change. Support tubes, as above. Labs Labs: Laboratory Results - last 24 hr 11/12/24 11/12/24 11/12/24 07:30 12:13 15:49 WBC RBC Hgb 10.7 L D Hct 32.7 L MCV MCH MCHC RDW Plt Count MPV Puncture Site ABG pH ABG pCO2 ABG pO2 ABG PO2/FiO2 Ratio ABG HCO3 ABG O2 Saturation ABG O2 Content ABG Base Excess A-a Gradient Oxyhemoglobin Carboxyhemoglobin Methemoglobin Reduced Hemoglobin Total Hemoglobin O2 Delivery Device O2 Liters/Min FiO2 Sodium Potassium Chloride Carbon Dioxide Anion Gap BUN Creatinine Estim Creat Clear Calc Estimated GFR Glucose POC Capillary Glucose 96 Calcium Phosphorus Magnesium Total Bilirubin AST ALT Alkaline Phosphatase Total Protein Albumin Crossmatch See Detail 11/12/24 11/12/24 11/13/24 17:34 23:12 04:12 WBC 12.7 H RBC 3.54 L Hgb 10.4 L Hct 32.3 L MCV 91.2 D MCH 29.4 MCHC 32.2 RDW 18.3 H Plt Count 363 MPV 9.9 Puncture Site ABG pH ABG pCO2 ABG pO2 ABG PO2/FiO2 Ratio ABG HCO3 ABG O2 Saturation ABG O2 Content ABG Base Excess A-a Gradient Oxyhemoglobin Carboxyhemoglobin Methemoglobin Reduced Hemoglobin Total Hemoglobin O2 Delivery Device O2 Liters/Min FiO2 Sodium 142 Potassium 4.0 Chloride 110 H Carbon Dioxide 21 L Anion Gap 11 BUN 17 Creatinine 0.68 L Estim Creat Clear Calc 84 Estimated GFR > 60 Glucose 117 H POC Capillary Glucose 93 96 Calcium 8.6 Phosphorus 4.2 Magnesium 1.6 Total Bilirubin 1.7 H AST 34 ALT 15 Alkaline Phosphatase 129 H Total Protein 7.0 Albumin 3.1 L Crossmatch 11/13/24 04:28 WBC RBC Hgb Hct MCV MCH MCHC RDW Plt Count MPV Puncture Site Right radial ABG pH 7.491 H ABG pCO2 32.8 L ABG pO2 78.3 L ABG PO2/FiO2 Ratio 3.73 ABG HCO3 24.5 ABG O2 Saturation 96.5 ABG O2 Content 15.7 L ABG Base Excess 1.6 A-a Gradient 32.2 Oxyhemoglobin 95.3 Carboxyhemoglobin 0.5 Methemoglobin 0.1 Reduced Hemoglobin 4.1 Total Hemoglobin 11.7 L O2 Delivery Device Room air O2 Liters/Min Not Reportable FiO2 21 Sodium Potassium Chloride Carbon Dioxide Anion Gap BUN Creatinine Estim Creat Clear Calc Estimated GFR Glucose POC Capillary Glucose Calcium Phosphorus Magnesium Total Bilirubin AST ALT Alkaline Phosphatase Total Protein Albumin Crossmatch
--- NOTE | 2024-11-13 11:03 | PCDIET ---
Nutrition Follow-Up Complete: Increased energy expenditure related to severe sepsis, mechanical ventilation as evidenced by need for tube feeding ~70% EER. goal: Meet estimated nutrition needs Patient is progressing towards goal. We will continue current goal. Pt current nutrition is Jevity 1.5 at 55 ml/hr. Last recorded weight is 61.4 kg, down from 66 kg. Bowel Motility: FMS Labs Reviewed: Glu 117, Cr 0.638, Alb 3.1 Meds Noted:NS, Folic Acid, Rocephin, Lovenox, Protonix, Thiamine, D5 Skin:WNL Additional Notes: Patient had tube feeding formula change to Jevity 1.5 at 55 ml/hr. Flush 30 ml q 4 hours. Spoke with nursing today, patient having tube feeding coming out of rectal tube. Surgery is aware. We will continue to monitor for further nutritional interventions. Monitoring tube feeding orders, weights, labs, tolerance, plan of care, vent settings, vitals Follow up Tuesday/Tuesday.
[2024-11-13] MEDS: COLLAGENASE OINT 30 GM TUBE 1 APPLIC TOPICAL (12:02)
--- NOTE | 2024-11-13 13:32 | P.PNIM_ITS ---
Progress Note: A&P Assessment and Plan (1) Shock: Code(s): R57.9 - Shock, unspecified Status: Acute Assessment and Plan: RESOLVED Patient initially presented with septic shock, hypotension Suspect aspiration pneumonia versus UTI as patient has had Michelle for more than 2 weeks., or persistent C diff infection -10/22: C diff positive, Blood, sputum culture culture are negative till now Michelle changed and UA sent procalcitonin level 8.2 Continue Dificid total of 10 days and meropenem total of 7 days off IV fluids Off 25% albumin Off Levophed infusion CT chest abdomen pelvis ABDOMEN/PELVIS: 1. Free air is seen anteriorly around the liver with minimal fluid. 2. Significant ascites in the pelvis. Drainage tube is seen in the left side of the pelvis. 3. Cholelithiasis with thickened wall of the gallbladder. Evaluation for cholecystitis advised. 4. Slightly dilated small bowel loops in the left upper abdomen which may indicate ileus follow-up advised. 5. Right renal cysts (2) Metabolic encephalopathy: Code(s): G93.41 - Metabolic encephalopathy Status: Acute Assessment and Plan: Patient has had Altered mental status since admission which has been multifactorial Patient was evaluated by Neurology and suspected to have metabolic encephalopathy. -CT brain on presented was negative for intracranial abnormalities. Repeat CT scan 11/08 also unremarkable -MRI cannot be performed as patient was in the [place] and may have sharpnel exposure according to his daughter -10/19: Repeat CT brain did not show any acute intracranial hemorrhage or suspicious mass effect, inflammatory sinus disease. -10/19: CT facial bones showed extensive sinus disease with near complete opacification of the right maxillary sinus and dependently layering fluid in the bilateral sphenoid sinuses. Dental and periodontal disease with periapical lucency surrounding the posterior most remaining right maxillary molar His ammonia level was normal Patient had LP on 10/31 and and only abnormality seen was elevated protein viral studies are negative Patient now awake following commands, (3) Acute kidney injury: Code(s): N17.9 - Acute kidney failure, unspecified Status: Acute Assessment and Plan: Patient presented with Acute kidney injury which improved with IV fluids Now the creatinine has again went up I suspect this is due to hypovolemia and sepsis Fully replaced CT scan reviewed Patient was given IV fluids and creatinine has again normalized Hold further IV fluid Although his intake and output show that he is significantly volume overloaded. He has had FMS with diarrhea which makes I&Os inaccurate. He does have minimal edema on exam Nephrology following Monitor urine output electrolytes and creatinine CK level is normal Earlier in the course CT scan of the abdomen and pelvis did not show any hydronephrosis or stones and renal ultrasound also showed No hydronephrosis or renal calculi, no apparent, findings to suggest the presence of medical renal disease. Simple cyst within the right kidney (4) Anemia: Code(s): D64.9 - Anemia, unspecified Status: Acute Assessment and Plan: Patient was anemic on presentation and received 2 units of PRBC. He was evaluate by Hematology Stool culture was negative and vitamin B12 were normal Folic acid was low and was supplement -iron panel was unremarkable He had EGD on 11/01 which showed gastritis and previous gastric surgery Hemoglobin dropped to 5.2 which could be partially dilutional versus GI loss 11/09 Transfuse 2 units PRBC Hold Lovenox and use SCDs Continue protonix Monitor hemoglobin 11/12 transfuse 1 unit of PRBC. Re-consult Gastroenterology (5) C. difficile diarrhea: Code(s): A04.72 - Enterocolitis due to Clostridium difficile, not specified as recurrent Status: Acute Assessment and Plan: Continue Dificid. Diarrhea improved. DC IV Flagyl CT abdomen pelvis reviewed (6) Acute respiratory failure: Code(s): J96.00 - Acute respiratory failure, unspecified whether with hypoxia or hypercapnia Status: Acute Assessment and Plan: Patient was extubated yesterday after a successful weaning trial. He is on room air. 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 Denies any pain, shortness of breath, nausea, vomiting. Tolerating tube feeds through the J-tube. NG tube drainage has decreased but still continues to 300 mL. Urine output has been good, afebrile, hemodynamically stable Review of Systems Review of Systems: All systems reviewed & are unremarkable except as noted in HPI and below Exam Narrative: General: Patient is awake, alert, not in any distress Lungs/Chest: Trachea central Coarse BS B/L, few crackles on the left base Cardiac: RRR. Normal S1 S2. No murmurs Circulation: Pedal pulses are intact and symmetrical. Abdomen: Present bowel sounds. Midline incision is under dressing Soft. NT. ND. 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 Objective Data Vital Signs Vital Signs: Vital Signs - 24 hr 11/12/24 13:43 11/12/24 14:00 11/12/24 15:56 Temperature Pulse Rate 94 95 Respiratory Rate 20 Blood Pressure Pulse Oximetry 97 Oxygen Delivery Room Air Room Air 11/12/24 16:00 11/12/24 16:00 11/12/24 18:00 Temperature 100.3 F H Pulse Rate 93 94 94 Respiratory Rate 24 H Blood Pressure 134/84 Pulse Oximetry 97 Oxygen Delivery 11/12/24 20:00 11/12/24 20:00 11/12/24 20:00 Temperature 100.6 F H Pulse Rate 94 94 Respiratory Rate 18 Blood Pressure 134/74 Pulse Oximetry 96 Oxygen Delivery Room Air 11/12/24 22:00 11/13/24 00:00 11/13/24 00:00 Temperature Pulse Rate 93 94 Respiratory Rate Blood Pressure Pulse Oximetry Oxygen Delivery Room Air 11/13/24 00:00 11/13/24 02:00 11/13/24 04:00 Temperature 100.2 F H Pulse Rate 94 96 Respiratory Rate 25 H Blood Pressure 146/86 H Pulse Oximetry 97 Oxygen Delivery Room Air 11/13/24 04:00 11/13/24 04:00 11/13/24 06:00 Temperature 100.0 F H Pulse Rate 96 96 93 Respiratory Rate 24 H Blood Pressure 132/85 Pulse Oximetry 98 Oxygen Delivery 11/13/24 08:00 11/13/24 08:00 11/13/24 08:00 Temperature 99.9 F H Pulse Rate 94 94 91 Respiratory Rate 19 19 Blood Pressure 138/84 Pulse Oximetry 100 100 Oxygen Delivery Room Air Intake/Output Intake/Output: Intake & Output 06/21/25 11/11/24 11/12/24 11/13/24 23:59 23:59 23:59 23:59 Intake Total 885.1 1766.9 1668 797 Output Total 8759 6600 7079 1425 [facility]2239.9 -508.1 -1982 -628 Meds/Results Medications: Active Medications Generic Name Dose Route Start Last Admin Trade Name Freq PRN Reason Stop Dose Admin Acetaminophen 650 mg 11/12/24 19:11 Acetaminophen Elixir 325 Mg/10.15 Ml Udc PO Q6H PRN Fever >101 Aspirin 81 mg 11/04/24 08:00 11/13/24 09:14 Aspirin 81 Mg Chewable Tablet FEED TUBE 81 mg DAILY@0800 JHONY Administration Collagenase 1 applic 11/13/24 09:00 11/13/24 12:02 Collagenase Oint 30 Gm Tube TOPICAL 1 applic Q12HR JHONY Administration Dextrose 12.5 gm 10/17/24 21:26 10/30/24 05:55 Dextrose 50% 25 Gm/50 Ml Syringe IV PUSH 12.5 gm PRN PRN Administration Hypoglycemia Protocol Enoxaparin Sodium 40 mg 11/02/24 09:00 11/09/24 08:18 Enoxaparin 40 Mg/0.4 Ml Syringe SUB-Q 40 mg DAILY JHONY Administration Fidaxomicin 200 mg 11/08/24 09:00 11/13/24 09:14 Fidaxomicin 200 Mg Tablet FEED TUBE 11/18/24 08:59 200 mg Q12HR JHONY Administration Folic Acid 1 mg 10/24/24 09:00 11/13/24 09:14 Folic Acid 1 Mg Tablet FEED TUBE 1 mg QAM JHONY Administration Glucagon 1 mg 10/17/24 21:26 Glucagon For Inj 1 Mg Vial IM PRN PRN Hypoglycemia Protocol Glucose 15 gm 10/17/24 21:26 Glucose Oral Gel 15 Gm Of Glucse In 37.5 Gm Tube PO PRN PRN Hypoglycemia Protocol Dextrose 1,000 mls @ 100 mls/hr 10/17/24 21:26 Dextrose 5% 1,000 Ml IVPB PRN PRN Hypoglycemia Protocol Meropenem 1 gm in 100 mls @ 200 mls/hr 11/08/24 11:30 11/13/24 10:41 IVPB 11/14/24 23:59 Infused Q12HR JHONY Infusion Insulin Aspart 3 - 6 units 11/08/24 12:00 11/13/24 12:02 Insulin Aspart (*Bkc) 100 Units/Ml SUB-Q Not Given Q6HR [facility] Protocol Pantoprazole Sodium 40 mg 10/18/24 21:00 11/13/24 09:14 Pantoprazole Sodium Iv 40 Mg Vial IV PUSH 40 mg Q12HR JHONY Administration Rosuvastatin Calcium 10 mg 11/04/24 09:00 11/13/24 09:14 Rosuvastatin 10 Mg Tablet FEED TUBE 10 mg DAILY JHONY Administration Saccharomyces Boulardii 250 mg 11/05/24 09:00 11/13/24 09:14 Saccharomyces Boulardii 250 Mg Capsule PO 250 mg DAILY JHONY Administration Sodium Bicarbonate 650 mg 11/12/24 09:00 11/13/24 09:15 Sodium Bicarbonate Tab 650 Mg Tablet FEED TUBE 11/13/24 17:01 650 mg BID JHONY Administration Sodium Chloride 10 ml 11/08/24 14:00 11/13/24 05:43 Central Line Flush IV PUSH 10 ml Q8HR JHONY Administration Sodium Chloride 10 ml 11/08/24 08:15 Central Line Flush IV PUSH PRN PRN with TPN bag changes Sodium Chloride 20 ml 11/08/24 08:15 11/11/24 06:50 Central Line Flush IV PUSH 20 ml PRN PRN Administration after blood draws Thiamine HCl 100 mg 10/24/24 09:00 11/13/24 09:14 Thiamine Hcl 100 Mg Tablet FEED TUBE 100 mg QAM JHONY Administration Radiology Results: ITS Impressions Face CT 10/19/24 09:39 IMPRESSION: 1. Extensive sinus disease with near complete opacification of the right maxillary sinus and dependently layering fluid in the bilateral sphenoid sinuses. Correlate clinically for acute sinusitis. 2. Dental and periodontal disease with periapical lucency surrounding the posterior most remaining right maxillary molar. Renal Ultrasound 10/19/24 09:48 IMPRESSION: No hydronephrosis or renal calculi. No parenchymal findings to suggest the presence of medical renal disease. Simple cysts within the right kidney, for which no further follow-up is needed. Brain MRI 10/24/24 14:22 IMPRESSION: 1. Age-related changes the brain. No acute intracranial process. 2. Prominent sinus disease with fluid nearly filling the right maxillary sinus and layering dependently in the bilateral sphenoid sinuses. Correlate clinically for acute sinusitis. Lumbar Puncture Fluoroscopy 10/31/24 17:34 IMPRESSION: 1. Successful fluoro-guided lumbar puncture with mildly elevated opening pressure of 23 cm water. Modified Barium Swallow 11/06/24 10:05 IMPRESSION: Nondiagnostic study as all contents either leaked or were actively expelled from the mouth. No swallows were able to be evaluated. Please correlate with speech pathologist findings and specific feeding recommendations. Abdomen X-Ray 11/08/24 07:55 Impression: NG tube in satisfactory position. Probable small bowel obstruction. Head CT 11/08/24 09:52 IMPRESSION: No acute intracranial findings. Chest/Abdomen/Pelvis CT 11/08/24 09:59 IMPRESSION: CHEST: 1. Right basilar atelectasis versus pneumonia with pleural effusion. 2. No other acute cardiopulmonary pathology. ABDOMEN/PELVIS: 1. Free air is seen anteriorly around the liver with minimal fluid. 2. Significant ascites in the pelvis. Drainage tube is seen in the left side of the pelvis. 3. Cholelithiasis with thickened wall of the gallbladder. Evaluation for cholecystitis advised. 4. Slightly dilated small bowel loops in the left upper abdomen which may indicate ileus follow-up advised. 5. Right renal cysts. Upper GI Series 11/09/24 13:49 IMPRESSION: 1. Left lower quadrant jejunostomy tube in expected position with injected contrast opacifying the normal-appearing jejunum with no extraluminal leakage of contrast. Chest X-Ray 11/12/24 05:42 Impression: Low lung volumes with probable vascular crowding centrally versus minimal central congestive change. Support tubes, as above. Labs Labs: Laboratory Results - last 24 hr 11/12/24 11/12/24 11/12/24 15:49 17:34 23:12 WBC RBC Hgb 10.7 L D Hct 32.7 L MCV MCH MCHC RDW Plt Count MPV Puncture Site ABG pH ABG pCO2 ABG pO2 ABG PO2/FiO2 Ratio ABG HCO3 ABG O2 Saturation ABG O2 Content ABG Base Excess A-a Gradient Oxyhemoglobin Carboxyhemoglobin Methemoglobin Reduced Hemoglobin Total Hemoglobin O2 Delivery Device O2 Liters/Min FiO2 Sodium Potassium Chloride Carbon Dioxide Anion Gap BUN Creatinine Estim Creat Clear Calc Estimated GFR Glucose POC Capillary Glucose 93 96 Calcium Phosphorus Magnesium Total Bilirubin AST ALT Alkaline Phosphatase Total Protein Albumin 11/13/24 11/13/24 11/13/24 04:12 04:28 11:48 WBC 12.7 H RBC 3.54 L Hgb 10.4 L Hct 32.3 L MCV 91.2 D MCH 29.4 MCHC 32.2 RDW 18.3 H Plt Count 363 MPV 9.9 Puncture Site Right radial ABG pH 7.491 H ABG pCO2 32.8 L ABG pO2 78.3 L ABG PO2/FiO2 Ratio 3.73 ABG HCO3 24.5 ABG O2 Saturation 96.5 ABG O2 Content 15.7 L ABG Base Excess 1.6 A-a Gradient 32.2 Oxyhemoglobin 95.3 Carboxyhemoglobin 0.5 Methemoglobin 0.1 Reduced Hemoglobin 4.1 Total Hemoglobin 11.7 L O2 Delivery Device Room air O2 Liters/Min Not Reportable FiO2 21 Sodium 142 Potassium 4.0 Chloride 110 H Carbon Dioxide 21 L Anion Gap 11 BUN 17 Creatinine 0.68 L Estim Creat Clear Calc 84 Estimated GFR > 60 Glucose 117 H POC Capillary Glucose 105 Calcium 8.6 Phosphorus 4.2 Magnesium 1.6 Total Bilirubin 1.7 H AST 34 ALT 15 Alkaline Phosphatase 129 H Total Protein 7.0 Albumin 3.1 L Quality VTE Prophylaxis VTE prophylaxis: mechanical ordered
--- NOTE | 2024-11-13 16:00 | PC.NURSE ---
This patient, Tip Calvo, was transferred to [[id number] ] on 11/13/24 at 1600. Personal belongings sent with patient. Report given to [MARIAN Murillo @ [phone] ]. Appropriate documentation sent with patient.
--- NOTE | 2024-11-13 23:29 | PM.EVENT ---
Event Note Event Note Event Note: Bedside RN contacted provider to alert to a change in mental status. Spoke with bedside RN who cared for him the night prior. Night prior patient was following commands, somewhat abstinent, orientated to self but would provide his birthday when asked about the year. Earlier this evening, current bedside RN reports the patient was able to follow commands and verbal. Upon my assessment the patient is rhythmically rocking, able to briefly make eye contact, modest upward gaze, and speech garbled. Not able to follow commands, speech unintelligible. Last head CT done on 11/08, no acute intracranial findings. Will repeat head CT this evening.
[2024-11-14] VITALS (13 sets, daily range): BP systolic 84–123; BP diastolic 57–72; PULSE 85–113; RESP 18–20; TEMP 35.9–36.8; O2SAT 93–100
[2024-11-14] MEDS: COLLAGENASE OINT 30 GM TUBE 1 APPLIC TOPICAL ×2 (00:39→16:20)
[2024-11-14 04:41] LABS: Hematocrit 33.4 % (42.0-52.0); Hemoglobin 10.9 g/dL (14.0-18.0); Immature Granulocyte Percent A 1.6 % (0-0.5); Lymphocytes Absolute Auto 1.66 K/mm3 (0.9-3.2); Mean Corpuscular HGB Conc 32.6 g/dl (32-36); Mean Corpuscular Hemoglobin 29.9 pg (26-34); Mean Corpuscular Volume 91.8 fl (80-100); Nucleated Red Blood Cells Absolute Auto 0.000 K/mm3 (0.0-0.012); Nucleated Red Blood Cells Perc 0.0 % (0.0-0.2); Platelet Count Result 351 k/mm3 (150-375); Red Blood Count 3.64 M/mm3 (4.6-6.20); White Blood Count 28.0 K/mm3 (4.5-10.0)
[2024-11-14 05:12] LABS: Anion Gap 12 mmol/L (4-12); Blood Urea Nitrogen 22 mg/dL (9-20); Calcium 9.1 mg/dL (8.4-10.2); Carbon Dioxide 24 mmol/L (22-30); Chloride 108 mmol/L (98-107); Estimated CRCL calculation 50 ml/min; Estimated Glomerular Filt Rate > 60; Glucose 126 mg/dL (65-110); Magnesium 1.4 mg/dL (1.6-2.3); Potassium 4.1 mmol/L (3.4-5.0); Sodium 144 mmol/L (137-145)
[2024-11-14 05:22] LABS: Band Neutrophils Percent 0 % (0-6); Hypochromasia 1+
[2024-11-14 05:23] LABS: Anisocytosis 1+; Ovalocytes 1+; Schistocytes None Seen
[2024-11-14] MEDS: SODIUM CHLORIDE 0.9% IV 1,000 ML 500 ML IV CONT (05:44)
[2024-11-14] MEDS: CENTRAL LINE FLUSH 10 ML IV PUSH ×3 (06:05→21:32)
--- NOTE | 2024-11-14 06:31 | PM.EVENT ---
Event Note Event Note Event Note: Nursing staff called me towards and of the shift in told me that the patient's of was hypotensive and tachycardic. Patient's chart was reviewed. Stat labs were ordered including CBC electrolyte panel lactic acid, procalcitonin, UA with reflux. CBC did demonstrate leukocytosis with a white count that more than doubled. Patient is already on meropenem and Dificid. Patient's prior sputum cultures grew out yeast and Gram-negative bacilli which reason for the meropenem. Stat chest x-ray was performed which demonstrated possible pneumonia. Patient actively as fluid bolus normal saline 1 L running over 2 hours. Patient's mean arterial pressure with his hypotension demonstrated maps of 63.
[2024-11-14 07:35] LABS: Procalcitonin 26.4 ng/mL
[2024-11-14 08:13] LABS: MRSA (PCR) NOT DETECTED (NOT DETECTE)
[2024-11-14] MEDS: PANTOPRAZOLE SODIUM IV 40 MG VIAL IV PUSH ×2 (08:58→21:05)
[2024-11-14] MEDS: MEROPENEM 1 GM/NS 100 ML 1 GM/100 ML BAG IVPB ×2 (08:58→21:06)
[2024-11-14] MEDS: MAGNESIUM SULF 4 GM/WATER100ML 4 GM/100 ML BAG IVPB (08:58)
--- NOTE | 2024-11-14 09:38 | PC.NURSE ---
Patient transferred to IMU room 202 at 09:25. All belongings and appropriate documentation sent with patient. Report given to MARIAN Vizcaino. Nadeen Calvo, daughter, notified of transfer and new room.
--- NOTE | 2024-11-14 10:13 | PM.PNGS ---
Progress Note: A&P Assessment and Plan (1) Shock: Code(s): R57.9 - Shock, unspecified Status: Acute Assessment and Plan: Patient's development of hypotension, tachycardia, and worsening leukocytosis is concerning for septic shock. Blood pressure is responding to IV fluids this morning. CXR this morning demonstrated possible pneumonia. UA ordered. Blood cultures repeated. RUQ abdominal ultrasound ordered to further evaluate for possible acute cholecystitis. He does have some right upper quadrant tenderness today and developed nausea overnight. Continue to hold his tube feedings for his abdominal ultrasound today. If he appears to have cholecystitis, then recommendations would likely be to proceed with placement of a percutaneous cholecystostomy tube in Radiology. Continue broad-spectrum IV antibiotics for now. (2) Hypotension: Qualifiers: Hypotension type: unspecified hypotension type Qualified Code(s): I95.9 - Hypotension, unspecified Code(s): I95.9 - Hypotension, unspecified Status: Acute Assessment and Plan: Patient developed hypotension and tachycardia earlier this morning. Labs today showed his white blood cell count went to 28,000 and his lactic acid was 2.5. Blood pressure has improved with IV fluids. He has been moved to IMU and this is being managed by the hospitalist. See plan above. (3) Altered mental status: Qualifiers: Altered mental status type: disorientation Qualified Code(s): R41.0 - Disorientation, unspecified Code(s): R41.82 - Altered mental status, unspecified Status: Acute Assessment and Plan: Patient had altered mental status last night and was evaluated by the overnight hospitalist. Head CT repeated and negative for any acute findings. This morning, he is alert and awake and answering questions appropriately as he was yesterday. (4) Cholelithiasis: Code(s): K80.20 - Calculus of gallbladder without cholecystitis without obstruction Status: Acute Assessment and Plan: CT scan abdomen/pelvis last week showed gallstones with wall thickening. RUQ US ordered to further evaluate possible acute cholecystitis. Will await these results. (5) C. difficile diarrhea: Code(s): A04.72 - Enterocolitis due to Clostridium difficile, not specified as recurrent Status: Acute Assessment and Plan: Still having diarrhea with a rectal tube in place. He is being treated with fidaxomicin. Plan I have discussed the patient's case and plan of care with Dr. Ortiz. Subjective Subjective Date/Time Seen: 11/14/24 10:13 Patient reports: diarrhea and afebrile (Since yesterday morning) Interval history: Patient seen in IMU this morning after being transferred for hypotension. He received 1 L IV fluid bolus. Blood pressure improved after fluids up to 100/60 per nursing. Patient is still alert, but confused this morning. He does answer questions appropriately. He denies any abdominal pain. Apparently overnight he did develop nausea and his NG tube was clamped. Per nursing, they put his NG tube back to suction and got about 1 L of drainage from his NG tube overnight. He continues to have liquid stool coming from his rectal tube. White blood cell count jumped up to 28,000. Lactic acid 2.5. His NG tube is currently clamped and his tube feeding is on hold for the right upper quadrant abdominal ultrasound this morning. Exam Const: General: comfortable, no acute distress and alert Orientation/consciousness: confusion GI: Inspection: non-distended and incision (Dry and healing well, no erythema or drainage) GI Palp: Yes Soft to palpation, Yes Tenderness to palpation present (GI) (He does have some right upper quadrant tenderness today), No Guarding due to palpation present (GI) and No Rebound tenderness present Auscultation: normal bowel sounds Other: Jejunostomy tube clamped and dressing dry and intact, no erythema around the jejunostomy tube Objective Data Vital Signs Vital Signs: Vital Signs - 24 hr 11/13/24 20:00 11/13/24 20:11 11/13/24 23:50 Temperature 96.3 F L 97.7 F Pulse Rate 65 85 Respiratory Rate 16 20 Blood Pressure 118/73 120/90 Pulse Oximetry 98 94 Oxygen Delivery Room Air 11/14/24 04:56 11/14/24 06:42 11/14/24 07:59 Temperature 96.6 F L 97.5 F L Pulse Rate 113 H Respiratory Rate 20 Blood Pressure 84/58 L 88/60 L Pulse Oximetry 98 Oxygen Delivery Intake/Output Intake/Output: Intake & Output 11/11/24 11/12/24 11/13/24 11/14/24 23:59 23:59 23:59 23:59 Intake Total 1766.9 1668 897 0 Output Total 2275 3650 1425 450 Balance -508.1 -1982 -528 -450 Meds/Results Medications: Active Medications Generic Name Dose Route Start Last Admin Trade Name Alirezaq PRN Reason Stop Dose Admin Acetaminophen 650 mg 11/13/24 21:07 Acetaminophen Elixir 325 Mg/10.15 Ml Udc FEED TUBE Q6H PRN Fever >101 Allopurinol 100 mg 11/14/24 10:02 Allopurinol 100 Mg Tablet PO DAILY [facility] Amlodipine Besylate 10 mg 11/14/24 10:02 Amlodipine Besylate 10 Mg Tablet PO DAILY [facility] Aspirin 81 mg 11/04/24 08:00 11/13/24 09:14 Aspirin 81 Mg Chewable Tablet FEED TUBE 81 mg DAILY@0800 [facility] Administration Aspirin 81 mg 11/14/24 10:02 Aspirin 81 Mg Enteric Tablet PO DAILY [facility] Carvedilol 12.5 mg 11/14/24 10:02 Carvedilol 12.5 Mg Tablet PO BID [facility] Collagenase 1 applic 11/13/24 09:00 11/14/24 00:39 Collagenase Oint 30 Gm Tube TOPICAL 1 applic Q12HR JHONY Administration Dextrose 12.5 gm 10/17/24 21:26 10/30/24 05:55 Dextrose 50% 25 Gm/50 Ml Syringe IV PUSH 12.5 gm PRN PRN Administration Hypoglycemia Protocol Enoxaparin Sodium 40 mg 11/02/24 09:00 11/09/24 08:18 Enoxaparin 40 Mg/0.4 Ml Syringe SUB-Q 40 mg DAILY JHONY Administration Fidaxomicin 200 mg 11/08/24 09:00 11/13/24 21:23 Fidaxomicin 200 Mg Tablet FEED TUBE 11/18/24 08:59 200 mg Q12HR JHONY Administration Folic Acid 1 mg 10/24/24 09:00 11/13/24 09:14 Folic Acid 1 Mg Tablet FEED TUBE 1 mg QAM JHONY Administration Glucagon 1 mg 10/17/24 21:26 Glucagon For Inj 1 Mg Vial IM PRN PRN Hypoglycemia Protocol Glucose 15 gm 11/13/24 21:07 Glucose Oral Gel 15 Gm Of Glucse In 37.5 Gm Tube FEED TUBE PRN PRN Hypoglycemia Protocol Dextrose 1,000 mls @ 100 mls/hr 10/17/24 21:26 Dextrose 5% 1,000 Ml IVPB PRN PRN Hypoglycemia Protocol Meropenem 1 gm in 100 mls @ 200 mls/hr 11/08/24 11:30 11/14/24 08:58 IVPB 11/14/24 23:59 200 mls/hr Q12HR JHONY Administration Magnesium Sulfate 4 gm in 100 mls @ 25 mls/hr 11/14/24 08:45 11/14/24 08:58 Magnesium Sulf 4 Gm/[id number] IVPB 11/14/24 12:44 25 mls/hr ONCE ONE Administration Sodium Chloride 1,000 mls @ 999 mls/hr 11/14/24 09:28 Normal Saline Iv IV CONT 11/14/24 10:28 .Q1H1M ONE Insulin Aspart 3 - 6 units 11/08/24 12:00 11/14/24 08:34 Insulin Aspart (*Bkc) 100 Units/Ml SUB-Q Not Given Q6HR JHONY Protocol Pantoprazole Sodium 40 mg 10/18/24 21:00 11/14/24 08:58 Pantoprazole Sodium Iv 40 Mg Vial IV PUSH 40 mg Q12HR JHONY Administration Rosuvastatin Calcium 10 mg 11/04/24 09:00 11/13/24 09:14 Rosuvastatin 10 Mg Tablet FEED TUBE 10 mg DAILY JHONY Administration Saccharomyces Boulardii 250 mg 11/14/24 09:00 Saccharomyces Boulardii 250 Mg Capsule FEED TUBE DAILY JHONY Sodium Chloride 10 ml 11/08/24 14:00 11/14/24 06:05 Central Line Flush IV PUSH 10 ml Q8HR JHONY Administration Sodium Chloride 10 ml 11/08/24 08:15 Central Line Flush IV PUSH PRN PRN with TPN bag changes Sodium Chloride 20 ml 11/08/24 08:15 11/11/24 06:50 Central Line Flush IV PUSH 20 ml PRN PRN Administration after blood draws Thiamine HCl 100 mg 10/24/24 09:00 11/13/24 09:14 Thiamine Hcl 100 Mg Tablet FEED TUBE 100 mg QAM JHONY Administration Radiology Results: ITS Impressions Face CT 10/19/24 09:39 IMPRESSION: 1. Extensive sinus disease with near complete opacification of the right maxillary sinus and dependently layering fluid in the bilateral sphenoid sinuses. Correlate clinically for acute sinusitis. 2. Dental and periodontal disease with periapical lucency surrounding the posterior most remaining right maxillary molar. Renal Ultrasound 10/19/24 09:48 IMPRESSION: No hydronephrosis or renal calculi. No parenchymal findings to suggest the presence of medical renal disease. Simple cysts within the right kidney, for which no further follow-up is needed. Brain MRI 10/24/24 14:22 IMPRESSION: 1. Age-related changes the brain. No acute intracranial process. 2. Prominent sinus disease with fluid nearly filling the right maxillary sinus and layering dependently in the bilateral sphenoid sinuses. Correlate clinically for acute sinusitis. Lumbar Puncture Fluoroscopy 10/31/24 17:34 IMPRESSION: 1. Successful fluoro-guided lumbar puncture with mildly elevated opening pressure of 23 cm water. Modified Barium Swallow 11/06/24 10:05 IMPRESSION: Nondiagnostic study as all contents either leaked or were actively expelled from the mouth. No swallows were able to be evaluated. Please correlate with speech pathologist findings and specific feeding recommendations. Abdomen X-Ray 11/08/24 07:55 Impression: NG tube in satisfactory position. Probable small bowel obstruction. Chest/Abdomen/Pelvis CT 11/08/24 09:59 IMPRESSION: CHEST: 1. Right basilar atelectasis versus pneumonia with pleural effusion. 2. No other acute cardiopulmonary pathology. ABDOMEN/PELVIS: 1. Free air is seen anteriorly around the liver with minimal fluid. 2. Significant ascites in the pelvis. Drainage tube is seen in the left side of the pelvis. 3. Cholelithiasis with thickened wall of the gallbladder. Evaluation for cholecystitis advised. 4. Slightly dilated small bowel loops in the left upper abdomen which may indicate ileus follow-up advised. 5. Right renal cysts. Upper GI Series 11/09/24 13:49 IMPRESSION: 1. Left lower quadrant jejunostomy tube in expected position with injected contrast opacifying the normal-appearing jejunum with no extraluminal leakage of contrast. Head CT 11/14/24 05:17 Impression: No intracranial hemorrhage, mass, or acute infarct. Atrophy and chronic white matter changes, as above. Chest X-Ray 11/14/24 05:55 Impression: Hazy left basilar airspace disease could reflect left lower lobe pneumonia. NG tube and right-sided PICC line in place. Labs Labs: Laboratory Results - last 24 hr 11/13/24 11/13/24 11/13/24 11:48 18:07 22:57 WBC RBC Hgb Hct MCV MCH MCHC RDW Plt Count MPV Immature Gran % (Auto) Neut % (Auto) Lymph % (Auto) [place] % (Auto) Eos % (Auto) Baso % (Auto) Lymph # (Auto) [place] # (Auto) Eos # (Auto) Baso # (Auto) Abs Immat Gran (auto) Absolute Neuts (auto) Absolute Nucleated RBC Band Neutrophils % Nucleated RBC % Platelet Estimate Hypochromasia Anisocytosis Ovalocytes Schistocytes Sodium Potassium Chloride Carbon Dioxide Anion Gap BUN Creatinine Estim Creat Clear Calc Estimated GFR Glucose POC Capillary Glucose 105 102 96 Lactic Acid Calcium Phosphorus Magnesium Procalcitonin Nasal MRSA (PCR) 11/14/24 11/14/24 11/14/24 04:09 06:37 06:47 WBC 28.0 H RBC 3.64 L Hgb 10.9 L Hct 33.4 L MCV 91.8 MCH 29.9 MCHC 32.6 RDW 18.5 H Plt Count 351 MPV 10.4 Immature Gran % (Auto) 1.6 H Neut % (Auto) 78.4 H Lymph % (Auto) 5.9 L [place] % (Auto) 13.3 H Eos % (Auto) 0.5 Baso % (Auto) 0.3 Lymph # (Auto) 1.66 [place] # (Auto) 3.7 H Eos # (Auto) 0.1 Baso # (Auto) 0.1 Abs Immat Gran (auto) 0.44 H Absolute Neuts (auto) 21.9 H Absolute Nucleated RBC 0.000 Band Neutrophils % 0 Nucleated RBC % 0.0 Platelet Estimate Adequate Hypochromasia 1+ Anisocytosis 1+ Ovalocytes 1+ Schistocytes None seen Sodium 144 Potassium 4.1 Chloride 108 H Carbon Dioxide 24 Anion Gap 12 BUN 22 H Creatinine 1.14 Estim Creat Clear Calc 50 Estimated GFR > 60 Glucose 126 H POC Capillary Glucose Lactic Acid 2.5 H Calcium 9.1 Phosphorus 2.7 Magnesium 1.4 L Procalcitonin 26.4 Nasal MRSA (PCR) Not detected 11/14/24 09:10 WBC RBC Hgb Hct MCV MCH MCHC RDW Plt Count MPV Immature Gran % (Auto) Neut % (Auto) Lymph % (Auto) [place] % (Auto) Eos % (Auto) Baso % (Auto) Lymph # (Auto) [place] # (Auto) Eos # (Auto) Baso # (Auto) Abs Immat Gran (auto) Absolute Neuts (auto) Absolute Nucleated RBC Band Neutrophils % Nucleated RBC % Platelet Estimate Hypochromasia Anisocytosis Ovalocytes Schistocytes Sodium Potassium Chloride Carbon Dioxide Anion Gap BUN Creatinine Estim Creat Clear Calc Estimated GFR Glucose POC Capillary Glucose Lactic Acid 2.5 H Calcium Phosphorus Magnesium Procalcitonin Nasal MRSA (PCR)
[2024-11-14] MEDS: SODIUM CHLORIDE 0.9% IV 1,000 ML 999 ML IV CONT (10:49)
--- NOTE | 2024-11-14 12:02 | PCOTNOTE ---
Patient has been transferred to IMU from 3rd Medical/Surgical floor this A.M. Therapist checked in with IMU RN, she states they are giving medication to assist in bringing his blood pressure up, Patient will also be having an ultrasound done. Will check back tomorrow.
--- NOTE | 2024-11-14 13:42 | PM.IMPN ---
Progress Note: A&P Assessment and Plan (1) Shock: Code(s): R57.9 - Shock, unspecified Status: Acute Assessment and Plan: Patient initially presented with septic shock Now patient has developed new hypotension. Suspect aspiration pneumonia versus UTI as patient has had Michelle for more than 2 weeks., or persistent C diff infection CT chest abdomen pelvis ABDOMEN/PELVIS: 1. Free air is seen anteriorly around the liver with minimal fluid. 2. Significant ascites in the pelvis. Drainage tube is seen in the left side of the pelvis. 3. Cholelithiasis with thickened wall of the gallbladder. Evaluation for cholecystitis advised. 4. Slightly dilated small bowel loops in the left upper abdomen which may indicate ileus follow-up advised. 5. Right renal cysts Blood, sputum culture culture are negative till now Michelle changed and UA sent procalcitonin level 8.2 Continue Dificid and meropenem Patient was given IV fluid bolus and now off of IV fluids Off 25% albumin Off Levophed infusion 11/14/24 Patient had hypotension,worsening leukocytosis. Also has Alejandro I lactic acid 2.5, magnesium 1.4. treatment started for severe sepsis. Will give IV fluid. Continue with meropenem. Vancomycin was added RUQ US pending to evaluate cholecystitis. surgery team on board (2) Metabolic encephalopathy: Code(s): G93.41 - Metabolic encephalopathy Status: Acute Assessment and Plan: Patient has had Altered mental status since admission which has been multifactorial Patient was evaluated by Neurology and suspected to have metabolic encephalopathy. -CT brain on presented was negative for intracranial abnormalities. Repeat CT scan 11/08 also unremarkable -MRI cannot be performed as patient was in the [place] and may have sharpnel exposure according to his daughter -10/19: Repeat CT brain did not show any acute intracranial hemorrhage or suspicious mass effect, inflammatory sinus disease. -10/19: CT facial bones showed extensive sinus disease with near complete opacification of the right maxillary sinus and dependently layering fluid in the bilateral sphenoid sinuses. Dental and periodontal disease with periapical lucency surrounding the posterior most remaining right maxillary molar His ammonia level was normal Patient had LP on 10/31 and and only abnormality seen was elevated protein viral studies are pending (3) Acute kidney injury: Code(s): N17.9 - Acute kidney failure, unspecified Status: Acute Assessment and Plan: ICU: Patient presented with Acute kidney injury which improved with IV fluids Now the creatinine has again went up I suspect this is due to hypovolemia and sepsis Fully replaced CT scan reviewed Patient was given IV fluids and creatinine improving. Hold further IV fluid Although his intake and output show that he is significantly volume overloaded. He has had FMS with diarrhea which makes I&Os inaccurate. He does have minimal edema on exam Nephrology following Monitor urine output electrolytes and creatinine CK level is normal Earlier in the course CT scan of the abdomen and pelvis did not show any hydronephrosis or stones and renal ultrasound also showed No hydronephrosis or renal calculi, no apparent, findings to suggest the presence of medical renal disease. Simple cyst within the right kidney 11/14/24 Patient had ALEJANDRO today Continue with IVF (4) Anemia: Code(s): D64.9 - Anemia, unspecified Status: Acute Assessment and Plan: in ICU: Patient was anemic on presentation and received 2 units of PRBC. He was evaluate by Hematology Stool culture was negative and vitamin B12 were normal Folic acid was low and was supplement -iron panel was unremarkable He had EGD on 11/01 which showed gastritis and previous gastric surgery Hemoglobin dropped to 5.2 which could be partially dilutional versus GI loss 11/09 Transfuse 2 units PRBC Hold Lovenox and use SCDs Continue protonix Monitor hemoglobin 11/14/24 Hb Stable continue to monitor (5) Thrombocytopenia: Code(s): D69.6 - Thrombocytopenia, unspecified Status: Acute Assessment and Plan: Thrombocytopenia that patient initially presented with has improved High platelet count at this time suggest hemoconcentration (6) Hyperkalemia: Code(s): E87.5 - Hyperkalemia Status: Acute Assessment and Plan: Hyperkalemia with ALEJANDRO Calcium gluconate, insulin and D50, bicarb received Lokelma in ICU IV fluid bolus Now resolved (7) C. difficile diarrhea: Code(s): A04.72 - Enterocolitis due to Clostridium difficile, not specified as recurrent Status: Acute Assessment and Plan: Continue Dificid. Diarrhea improved. DC IV Flagyl CT abdomen pelvis reviewed (8) Acute respiratory failure: Code(s): J96.00 - Acute respiratory failure, unspecified whether with hypoxia or hypercapnia Status: Acute Assessment and Plan: improved Subjective Date/time seen: 11/14/24 13:42 Interval history: Sam has been admitted for septic shock pn 10/17 started on Levophed and admitted to ICU. T chest abdomen pelvis with no acute findings. Face CT with extensive sinus disease with near complete opacification of the right maxillary sinus and dependently layering fluid in the bilateral sphenoid sinuses. paitent was getting better. off Levophed on 10/18 Initially was on Cefepime and vancomycin but it was discontinued as there was no source on infection and neg blood cultre. on 10/19 patient had fever started on Rocephin for possible UTI vs sinusitis. C diff was positive on 10/22/24 started on Vancomycin and concluded on 11/01/24 AMS; MRI/Ct/EEG unremarkable except for sinusitis. Lumbar puncture 10/31/2024 with mildly elevated opening pressure of 23 cm water CSF with high-protein patient also had Alejandro and rhabdomyolysis which received IVF. Patient also had pancytopenia. Hematology oncology on board. Platelet improved. patient failed barium swallow . surgery team was consulted underwent Peg tube placement on 11/07/21 rapid response was called on 11/08/24 because of respiratory failure, hypotension, lactic acidosis. Patient was intubated and admitted to ICU.Ct concerning for cholecystitis and ileus. surgery team on board recommended to monitor patient has been on Dificid and meropenem patient gradually improving was transferred out of ICU 11/13/24 11/14/24 patient has been hypotensive and tachycardic this morning. receive IVF bolus. I saw and examined patient bedside. geovanna any chest pain, SOb, abd pain,N/V. Patient had worsening leukocytosis. Also has Alejandro I lactic acid 2.5, magnesium 1.4. treatment started for severe sepsis. Will give IV fluid. Continue with meropenem. Vancomycin was added. Surgery team on board. Plan for right upper quadrant ultrasound to evaluate cholecystitis. Blood cultures and Review of Systems Review of Systems: All systems reviewed & are unremarkable except as noted in HPI and below ( Limited, A&O x1, unreliable) ROS unobtainable: Yes unobtainable due to mental status Exam Narrative: General: Patient is awake, alert, not in any distress Lungs/Chest: Trachea central Coarse BS B/L, few crackles on the left base Cardiac: RRR. Normal S1 S2. No murmurs Circulation: Pedal pulses are intact and symmetrical. Abdomen: Present bowel sounds. Midline incision is under dressing Soft. NT. ND. 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 Const: General: comfortable, no acute distress, alert, awake, confusion, ill appearing, patient obtunded (intubated. Just taken off sedation.) and thin Nutritional Appearance: thin Orientation/consciousness: confusion Other: , frail, ill-appearing, elderly HENMT: Face/Nose/Sinus: Normal nares present Mouth: Yes dry mucous membranes Other: ngt in place Eyes: General: appearance normal, both eyes and all related structures Sclera: sclerae normal Pupils: Equal, round and reactive pupils present EOM: EOMs intact bilaterally Neck: Neck: supple Resp: Effort & Inspection: normal respiratory effort Auscultation: clear to auscultation bilaterally Cardio: Rate: regular rate Rhythm: regular rhythm Other: S1-S2 present without murmur, rub, ectopy GI: Inspection: non-distended, incision (Dry and healing well, no erythema or drainage), scaphoid, scar (Large upper abdominal midline scar as before) and other (mildly distended) Auscultation: normal bowel sounds and Hypoactive bowel sounds present Other: Jejunostomy tube clamped and dressing dry and intact, no erythema around the jejunostomy tube : General: Yes bladder normal to palpation Urinary Catheter: Urinary Catheter: patent and draining Skin: General skin exam: normal color and no rashes or lesions noted Other: Superficial bilateral buttock friction maceration noted with three small (<2-3 cm) open wounds that are superficial with a healthy appearing pink wound bed, no necrotic tissue or purulent drainage. Neuro: General: confusion Cranial nerves: Yes Equal, round and reactive pupils present Other: Garbled speech, difficult to understand. A&O x1. Moving all extremities, however + 1 in all extremities. Left foot weaker than right. 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 Right facial droop verses droop due to swelling. Extrem: General: normal to inspection Psych: Other: Poor insight and judgment at present, pleasant. Objective Data Vital Signs Vital Signs: Vital Signs - 24 hr 11/13/24 20:00 11/13/24 20:11 11/13/24 23:50 Temperature 96.3 F L 97.7 F Pulse Rate 65 85 Respiratory Rate 16 20 Blood Pressure 118/73 120/90 Pulse Oximetry 98 94 Oxygen Delivery Room Air 11/14/24 04:56 11/14/24 06:42 11/14/24 07:59 Temperature 96.6 F L 97.5 F L Pulse Rate 113 H Respiratory Rate 20 Blood Pressure 84/58 L 88/60 L Pulse Oximetry 98 Oxygen Delivery 11/14/24 09:30 11/14/24 12:00 11/14/24 12:05 Temperature 97.5 F L Pulse Rate 87 Respiratory Rate 18 Blood Pressure 96/57 L Pulse Oximetry 100 Oxygen Delivery Room Air Room Air Intake/Output Intake/Output: Intake & Output 11/11/24 11/12/24 11/13/24 11/14/24 23:59 23:59 23:59 23:59 Intake Total 1766.9 1668 897 0 Output Total 2275 3650 1425 450 Balance -508.1 -1982 -528 -450 Meds/Results Medications: Active Medications Generic Name Dose Route Start Last Admin Trade Name Freq PRN Reason Stop Dose Admin Acetaminophen 650 mg 11/13/24 21:07 Acetaminophen Elixir 325 Mg/10.15 Ml Udc FEED TUBE Q6H PRN Fever >101 Allopurinol 100 mg 11/14/24 10:02 Allopurinol 100 Mg Tablet PO DAILY [facility] Amlodipine Besylate 10 mg 11/14/24 10:02 Amlodipine Besylate 10 Mg Tablet PO DAILY [facility] Aspirin 81 mg 11/04/24 08:00 11/13/24 09:14 Aspirin 81 Mg Chewable Tablet FEED TUBE 81 mg DAILY@0800 [facility] Administration Carvedilol 12.5 mg 11/14/24 10:02 Carvedilol 12.5 Mg Tablet PO BID [facility] Collagenase 1 applic 11/13/24 09:00 11/14/24 00:39 Collagenase Oint 30 Gm Tube TOPICAL 1 applic Q12HR [facility] Administration Dextrose 12.5 gm 10/17/24 21:26 10/30/24 05:55 Dextrose 50% 25 Gm/50 Ml Syringe IV PUSH 12.5 gm PRN PRN Administration Hypoglycemia Protocol Enoxaparin Sodium 40 mg 11/02/24 09:00 11/09/24 08:18 Enoxaparin 40 Mg/0.4 Ml Syringe SUB-Q 40 mg DAILY [facility] Administration Fidaxomicin 200 mg 11/08/24 09:00 11/13/24 21:23 Fidaxomicin 200 Mg Tablet FEED TUBE 11/18/24 08:59 200 mg Q12HR [facility] Administration Folic Acid 1 mg 10/24/24 09:00 11/13/24 09:14 Folic Acid 1 Mg Tablet FEED TUBE 1 mg QAM [facility] Administration Glucagon 1 mg 10/17/24 21:26 Glucagon For Inj 1 Mg Vial IM PRN PRN Hypoglycemia Protocol Glucose 15 gm 11/13/24 21:07 Glucose Oral Gel 15 Gm Of Glucse In 37.5 Gm Tube FEED TUBE PRN PRN Hypoglycemia Protocol Dextrose 1,000 mls @ 100 mls/hr 10/17/24 21:26 Dextrose 5% 1,000 Ml IVPB PRN PRN Hypoglycemia Protocol Meropenem 1 gm in 100 mls @ 200 mls/hr 11/08/24 11:30 11/14/24 08:58 IVPB 200 mls/hr Q12HR [facility] Administration Vancomycin HCl 1,750 mg in 500 mls @ 250 mls/hr 11/14/24 13:00 Vancomycin 1,750 Mg/Ns 500 Ml IVPB 11/14/24 14:59 ONCE ONE Vancomycin HCl 1,250 mg in 250 mls @ 166.667 mls/hr 11/15/24 13:00 Vancomycin 1,250 Mg/Ns 250 Ml IVPB Q24H [facility] Insulin Aspart 3 - 6 units 11/08/24 12:00 11/14/24 08:34 Insulin Aspart (*Bkc) 100 Units/Ml SUB-Q Not Given Q6HR [facility] Protocol Miscellaneous Information 1 each 11/14/24 00:01 Order Clarification- Allopurinol - Hold Or Change To Feed Tube Route? XX 12/14/24 00:00 CLARIFY [facility] Pantoprazole Sodium 40 mg 10/18/24 21:00 11/14/24 08:58 Pantoprazole Sodium Iv 40 Mg Vial IV PUSH 40 mg Q12HR [facility] Administration Rosuvastatin Calcium 10 mg 11/04/24 09:00 11/13/24 09:14 Rosuvastatin 10 Mg Tablet FEED TUBE 10 mg DAILY [facility] Administration Saccharomyces Boulardii 250 mg 11/14/24 09:00 Saccharomyces Boulardii 250 Mg Capsule FEED TUBE DAILY [facility] Sodium Chloride 10 ml 11/08/24 14:00 11/14/24 06:05 Central Line Flush IV PUSH 10 ml Q8HR [facility] Administration Sodium Chloride 10 ml 11/08/24 08:15 Central Line Flush IV PUSH PRN PRN with TPN bag changes Sodium Chloride 20 ml 11/08/24 08:15 11/11/24 06:50 Central Line Flush IV PUSH 20 ml PRN PRN Administration after blood draws Thiamine HCl 100 mg 10/24/24 09:00 11/13/24 09:14 Thiamine Hcl 100 Mg Tablet FEED TUBE 100 mg QAM [facility] Administration Radiology Results: ITS Impressions Face CT 10/19/24 09:39 IMPRESSION: 1. Extensive sinus disease with near complete opacification of the right maxillary sinus and dependently layering fluid in the bilateral sphenoid sinuses. Correlate clinically for acute sinusitis. 2. Dental and periodontal disease with periapical lucency surrounding the posterior most remaining right maxillary molar. Renal Ultrasound 10/19/24 09:48 IMPRESSION: No hydronephrosis or renal calculi. No parenchymal findings to suggest the presence of medical renal disease. Simple cysts within the right kidney, for which no further follow-up is needed. Brain MRI 10/24/24 14:22 IMPRESSION: 1. Age-related changes the brain. No acute intracranial process. 2. Prominent sinus disease with fluid nearly filling the right maxillary sinus and layering dependently in the bilateral sphenoid sinuses. Correlate clinically for acute sinusitis. Lumbar Puncture Fluoroscopy 10/31/24 17:34 IMPRESSION: 1. Successful fluoro-guided lumbar puncture with mildly elevated opening pressure of 23 cm water. Modified Barium Swallow 11/06/24 10:05 IMPRESSION: Nondiagnostic study as all contents either leaked or were actively expelled from the mouth. No swallows were able to be evaluated. Please correlate with speech pathologist findings and specific feeding recommendations. Abdomen X-Ray 11/08/24 07:55 Impression: NG tube in satisfactory position. Probable small bowel obstruction. Chest/Abdomen/Pelvis CT 11/08/24 09:59 IMPRESSION: CHEST: 1. Right basilar atelectasis versus pneumonia with pleural effusion. 2. No other acute cardiopulmonary pathology. ABDOMEN/PELVIS: 1. Free air is seen anteriorly around the liver with minimal fluid. 2. Significant ascites in the pelvis. Drainage tube is seen in the left side of the pelvis. 3. Cholelithiasis with thickened wall of the gallbladder. Evaluation for cholecystitis advised. 4. Slightly dilated small bowel loops in the left upper abdomen which may indicate ileus follow-up advised. 5. Right renal cysts. Upper GI Series 11/09/24 13:49 IMPRESSION: 1. Left lower quadrant jejunostomy tube in expected position with injected contrast opacifying the normal-appearing jejunum with no extraluminal leakage of contrast. Head CT 11/14/24 05:17 Impression: No intracranial hemorrhage, mass, or acute infarct. Atrophy and chronic white matter changes, as above. Chest X-Ray 11/14/24 05:55 Impression: Hazy left basilar airspace disease could reflect left lower lobe pneumonia. NG tube and right-sided PICC line in place. Labs Labs: Laboratory Results - last 24 hr 11/13/24 11/13/24 11/14/24 18:07 22:57 04:09 WBC 28.0 H RBC 3.64 L Hgb 10.9 L Hct 33.4 L MCV 91.8 MCH 29.9 MCHC 32.6 RDW 18.5 H Plt Count 351 MPV 10.4 Immature Gran % (Auto) 1.6 H Neut % (Auto) 78.4 H Lymph % (Auto) 5.9 L Calloway % (Auto) 13.3 H Eos % (Auto) 0.5 Baso % (Auto) 0.3 Lymph # (Auto) 1.66 Calloway # (Auto) 3.7 H Eos # (Auto) 0.1 Baso # (Auto) 0.1 Abs Immat Gran (auto) 0.44 H Absolute Neuts (auto) 21.9 H Absolute Nucleated RBC 0.000 Band Neutrophils % 0 Nucleated RBC % 0.0 Platelet Estimate Adequate Hypochromasia 1+ Anisocytosis 1+ Ovalocytes 1+ Schistocytes None seen Sodium 144 Potassium 4.1 Chloride 108 H Carbon Dioxide 24 Anion Gap 12 BUN 22 H Creatinine 1.14 Estim Creat Clear Calc 50 Estimated GFR > 60 Glucose 126 H POC Capillary Glucose 102 96 Lactic Acid Calcium 9.1 Phosphorus 2.7 Magnesium 1.4 L Procalcitonin Nasal MRSA (PCR) 11/14/24 11/14/24 11/14/24 06:37 06:47 09:10 WBC RBC Hgb Hct MCV MCH MCHC RDW Plt Count MPV Immature Gran % (Auto) Neut % (Auto) Lymph % (Auto) Callow[place] % (Auto) Eos % (Auto) Baso % (Auto) Lymph # (Auto) Calloway # (Auto) Eos # (Auto) Baso # (Auto) Abs Immat Gran (auto) Absolute Neuts (auto) Absolute Nucleated RBC Band Neutrophils % Nucleated RBC % Platelet Estimate Hypochromasia Anisocytosis Ovalocytes Schistocytes Sodium Potassium Chloride Carbon Dioxide Anion Gap BUN Creatinine Estim Creat Clear Calc Estimated GFR Glucose POC Capillary Glucose Lactic Acid 2.5 H 2.5 H Calcium Phosphorus Magnesium Procalcitonin 26.4 Nasal MRSA (PCR) Not detected Quality VTE Prophylaxis VTE prophylaxis: mechanical ordered
[2024-11-14] MEDS: VANCOMYCIN 1,750 MG/NS 500 ML 1,750 MG/500 ML BAG 250 MG IVPB (13:49)
[2024-11-14] MEDS: SODIUM CHLORIDE 0.9% IV 1,000 ML 100 ML IV CONT (15:00)
[2024-11-14 15:39] LABS: Need Manual Microscopic Reviewed; Non Pathogenic Casts >20
[2024-11-14 15:40] LABS: Add Urine Microscopic? YES; Appearance Urine Cloudy (Clear); Glucose Urine UA Negative (Negative); Leukocyte Esterase Ur 1+ LEU/UL (Negative); Nitrate Urine Positive (Negative); Specific Grav Ur 1.026 (1.001-1.035)
[2024-11-14 16:37] LABS: MRSA (PCR) NOT DETECTED (NOT DETECTE)
[2024-11-15] VITALS (13 sets, daily range): BP systolic 135–140; BP diastolic 63–83; PULSE 78–100; RESP 14–18; TEMP 36.6–37.6; O2SAT 99–100
[2024-11-15] MEDS: SODIUM CHLORIDE 0.9% IV 1,000 ML 100 ML IV CONT (01:15)
[2024-11-15] MEDS: CENTRAL LINE FLUSH 10 ML IV PUSH ×3 (04:44→20:48)
[2024-11-15 05:10] LABS: Hematocrit 27.5 % (42.0-52.0); Hemoglobin 8.6 g/dL (14.0-18.0); Mean Corpuscular HGB Conc 31.3 g/dl (32-36); Mean Corpuscular Hemoglobin 29.3 pg (26-34); Mean Corpuscular Volume 93.5 fl (80-100); Platelet Count Result 314 k/mm3 (150-375); Red Blood Count 2.94 M/mm3 (4.6-6.20); White Blood Count 21.1 K/mm3 (4.5-10.0)
[2024-11-15 05:21] LABS: Anion Gap 10 mmol/L (4-12); Blood Urea Nitrogen 28 mg/dL (9-20); Calcium 8.7 mg/dL (8.4-10.2); Carbon Dioxide 20 mmol/L (22-30); Chloride 115 mmol/L (98-107); Estimated CRCL calculation 59 ml/min; Estimated Glomerular Filt Rate > 60; Glucose 84 mg/dL (65-110); Potassium 3.9 mmol/L (3.4-5.0); Sodium 145 mmol/L (137-145)
[2024-11-15 05:52] LABS: INR 1.6; Prothrombin Time 19.1 Seconds (11.1-14.7)
[2024-11-15 05:53] LABS: Partial Thromboplastin Time 35.0 Seconds (22.3-36.8)
[2024-11-15 08:36] LABS: Magnesium 2.1 mg/dL (1.6-2.3)
[2024-11-15] MEDS: THIAMINE HCL 100 MG TABLET FEED TUBE (09:03)
[2024-11-15] MEDS: SACCHAROMYCES BOULARDII 250 MG CAPSULE FEED TUBE (09:03)
[2024-11-15] MEDS: FIDAXOMICIN 200 MG TABLET FEED TUBE (09:03)
[2024-11-15] MEDS: ROSUVASTATIN 10 MG TABLET FEED TUBE (09:03)
[2024-11-15] MEDS: MEROPENEM 1 GM/NS 100 ML 1 GM/100 ML BAG IVPB ×2 (09:04→20:50)
[2024-11-15] MEDS: ASPIRIN 81 MG CHEWABLE TABLET FEED TUBE (09:04)
[2024-11-15] MEDS: FOLIC ACID 1 MG TABLET FEED TUBE (09:04)
[2024-11-15] MEDS: PANTOPRAZOLE SODIUM IV 40 MG VIAL IV PUSH ×2 (09:04→20:50)
--- NOTE | 2024-11-15 12:53 | P.PNGS_ITS ---
Progress Note: A&P Assessment and Plan (1) Shock: Code(s): R57.9 - Shock, unspecified Status: Acute Assessment and Plan: * Patient's blood pressure and pulse rate have returned to normal. WBC count down to 21.1 from 28. RUQ US demonstrated cholecystitis with cholelithiasis and sludge. No complaints of abdominal pain. Cholecystostomy tube to be placed today. Will continue to monitor output. Continue broad spectrum antibiotics. (2) Hypotension: Qualifiers: Hypotension type: unspecified hypotension type Qualified Code(s): I95.9 - Hypotension, unspecified Code(s): I95.9 - Hypotension, unspecified Status: Acute Assessment and Plan: * Patient developed hypotension and tachycardia earlier this morning. Labs today showed his white blood cell count went to 28,000 and his lactic acid was 2.5. Blood pressure has improved with IV fluids. He has been moved to IMU and this is being managed by the hospitalist. See plan above. (3) Altered mental status: Qualifiers: Altered mental status type: disorientation Qualified Code(s): R41.0 - Disorientation, unspecified Code(s): R41.82 - Altered mental status, unspecified Status: Acute Assessment and Plan: * Patient had altered mental status last night and was evaluated by the overnight hospitalist. Head CT repeated and negative for any acute findings. This morning, he is alert and awake and answering questions appropriately as he was yesterday. (4) Cholelithiasis: Code(s): K80.20 - Calculus of gallbladder without cholecystitis without obstruction Status: Acute Assessment and Plan: * CT scan abdomen/pelvis last week showed gallstones with wall thickening. RUQ US yesterday showed cholecystitis with cholelithiasis and sludge. Percutaneous pual drain to be placed today. Will monitor output. (5) C. difficile diarrhea: Code(s): A04.72 - Enterocolitis due to Clostridium difficile, not specified as recurrent Status: Acute Assessment and Plan: * Still having diarrhea with a rectal tube in place. He is being treated with f idaxomicin. Subjective Subjective Date/Time Seen: 11/15/24 12:53 Patient reports: no new complaints Interval history: Patient is doing well. In good spirits with no new complaints today. Low grade fever at 99.7 today. Plan for cholecystostomy tube today. Exam GI: Inspection: non-distended, incision (Dry and healing well, no erythema or drainage), scaphoid, scar (Large upper abdominal midline scar as before) and other (mildly distended) Objective Data Vital Signs Vital Signs: Vital Signs - 24 hr 11/14/24 14:00 11/14/24 16:00 11/14/24 16:00 Temperature 97.6 F Pulse Rate 91 85 Respiratory Rate 18 Blood Pressure 108/65 Pulse Oximetry 93 Oxygen Delivery Room Air 11/14/24 16:00 11/14/24 18:00 11/14/24 20:00 Temperature Pulse Rate 90 94 97 Respiratory Rate Blood Pressure Pulse Oximetry Oxygen Delivery 11/14/24 20:08 11/14/24 22:00 11/14/24 23:55 Temperature 98.3 F 98.2 F Pulse Rate 96 98 98 Respiratory Rate 18 18 Blood Pressure 110/65 123/72 Pulse Oximetry 100 95 Oxygen Delivery 11/15/24 00:00 11/15/24 02:00 11/15/24 03:35 Temperature 98.0 F Pulse Rate 99 100 99 Respiratory Rate 18 Blood Pressure 135/63 Pulse Oximetry 100 Oxygen Delivery 11/15/24 04:00 11/15/24 06:00 11/15/24 08:00 Temperature 98.5 F Pulse Rate 95 94 96 Respiratory Rate 14 Blood Pressure 136/73 Pulse Oximetry 99 Oxygen Delivery 11/15/24 12:00 Temperature 99.7 F H Pulse Rate 95 Respiratory Rate 14 Blood Pressure 136/76 Pulse Oximetry 99 Oxygen Delivery Intake/Output Intake/Output: Intake & Output 11/12/24 11/13/24 11/14/24 11/15/24 23:59 23:59 23:59 23:59 Intake Total 1668 006 164 3898 Output Total 3650 1425 1600 300 Balance -1982 528 -1400 700 Meds/Results Medications: Active Medications Generic Name Dose Route Start Last Admin Trade Name Freq PRN Reason Stop Dose Admin Acetaminophen 650 mg 11/13/24 21:07 Acetaminophen Elixir 325 Mg/10.15 Ml Udc FEED TUBE Q6H PRN Fever >101 Allopurinol 100 mg 11/15/24 09:00 11/15/24 09:04 Allopurinol 100 Mg Tablet FEED TUBE 100 mg DAILY J[facility]ONY Administration Amlodipine Besylate 10 mg 11/14/24 10:02 11/14/24 14:58 Amlodipine Besylate 10 Mg Tablet PO Not Given DAILY [facility] Aspirin 81 mg 11/04/24 08:00 11/15/24 09:04 Aspirin 81 Mg Chewable Tablet FEED TUBE 81 mg DAILY@0800 JHONY Administration Carvedilol 12.5 mg 11/14/24 10:02 11/14/24 14:58 Carvedilol 12.5 Mg Tablet PO Not Given BID [facility] Collagenase 1 applic 11/13/24 09:00 11/14/24 20:19 Collagenase Oint 30 Gm Tube TOPICAL Not Given Q12HR [facility] Dextrose 12.5 gm 10/17/24 21:26 10/30/24 05:55 Dextrose 50% 25 Gm/50 Ml Syringe IV PUSH 12.5 gm PRN PRN Administration Hypoglycemia Protocol Enoxaparin Sodium 40 mg 11/02/24 09:00 11/09/24 08:18 Enoxaparin 40 Mg/0.4 Ml Syringe SUB-Q 40 mg DAILY J[facility]ONY Administration Fidaxomicin 200 mg 11/08/24 09:00 11/15/24 09:03 Fidaxomicin 200 Mg Tablet FEED TUBE 11/18/24 08:59 200 mg Q12HR [facility]ON[facility] Administration Folic Acid 1 mg 10/24/24 09:00 11/15/24 09:04 Folic Acid 1 Mg Tablet FEED TUBE 1 mg QAM [facility]ON[facility] Administration Glucagon 1 mg 10/17/24 21:26 Glucagon For Inj 1 Mg Vial IM PRN PRN Hypoglycemia Protocol Glucose 15 gm 11/13/24 21:07 Glucose Oral Gel 15 Gm Of Glucse In 37.5 Gm Tube FEED TUBE PRN PRN Hypoglycemia Protocol Dextrose 1,000 mls @ 100 mls/hr 10/17/24 21:26 Dextrose 5% 1,000 Ml IVPB PRN PRN Hypoglycemia Protocol Meropenem 1 gm in 100 mls @ 200 mls/hr 11/08/24 11:30 11/15/24 09:04 IVPB 200 mls/hr Q12HR [facility] Administration Vancomycin HCl 1,250 mg in 250 mls @ 166.667 mls/hr 11/15/24 13:00 Vancomycin 1,250 Mg/Ns 250 Ml IVPB Q24H [facility] Sodium Chloride 1,000 mls @ 100 mls/hr 11/14/24 14:20 11/15/24 01:15 Normal Saline Iv IV CONT 100 mls/hr .Q10H [facility] Administration Insulin Aspart 3 - 6 units 11/08/24 12:00 11/15/24 05:28 Insulin Aspart (*Bkc) 100 Units/Ml SUB-Q Not Given Q6HR [facility] Protocol Pantoprazole Sodium 40 mg 10/18/24 21:00 11/15/24 09:04 Pantoprazole Sodium Iv 40 Mg Vial IV PUSH 40 mg Q12HR [facility] Administration Rosuvastatin Calcium 10 mg 11/04/24 09:00 11/15/24 09:03 Rosuvastatin 10 Mg Tablet FEED TUBE 10 mg DAILY [facility] Administration Saccharomyces Boulardii 250 mg 11/14/24 09:00 11/15/24 09:03 Saccharomyces Boulardii 250 Mg Capsule FEED TUBE 250 mg DAILY [facility] Administration Sodium Chloride 10 ml 11/08/24 14:00 11/15/24 04:44 Central Line Flush IV PUSH 10 ml Q8HR [facility] Administration Sodium Chloride 10 ml 11/08/24 08:15 Central Line Flush IV PUSH PRN PRN with TPN bag changes Sodium Chloride 20 ml 11/08/24 08:15 11/11/24 06:50 Central Line Flush IV PUSH 20 ml PRN PRN Administration after blood draws Thiamine HCl 100 mg 10/24/24 09:00 11/15/24 09:03 Thiamine Hcl 100 Mg Tablet FEED TUBE 100 mg QAM [facility] Administration Radiology Results: ITS Impressions Face CT 10/19/24 09:39 IMPRESSION: 1. Extensive sinus disease with near complete opacification of the right maxillary sinus and dependently layering fluid in the bilateral sphenoid sinuses. Correlate clinically for acute sinusitis. 2. Dental and periodontal disease with periapical lucency surrounding the posterior most remaining right maxillary molar. Renal Ultrasound 10/19/24 09:48 IMPRESSION: No hydronephrosis or renal calculi. No parenchymal findings to suggest the presence of medical renal disease. Simple cysts within the right kidney, for which no further follow-up is needed. Brain MRI 10/24/24 14:22 IMPRESSION: 1. Age-related changes the brain. No acute intracranial process. 2. Prominent sinus disease with fluid nearly filling the right maxillary sinus and layering dependently in the bilateral sphenoid sinuses. Correlate clinically for acute sinusitis. Lumbar Puncture Fluoroscopy 10/31/24 17:34 IMPRESSION: 1. Successful fluoro-guided lumbar puncture with mildly elevated opening pressure of 23 cm water. Modified Barium Swallow 11/06/24 10:05 IMPRESSION: Nondiagnostic study as all contents either leaked or were actively expelled from the mouth. No swallows were able to be evaluated. Please correlate with speech pathologist findings and specific feeding recommendations. Abdomen X-Ray 11/08/24 07:55 Impression: NG tube in satisfactory position. Probable small bowel obstruction. Chest/Abdomen/Pelvis CT 11/08/24 09:59 IMPRESSION: CHEST: 1. Right basilar atelectasis versus pneumonia with pleural effusion. 2. No other acute cardiopulmonary pathology. ABDOMEN/PELVIS: 1. Free air is seen anteriorly around the liver with minimal fluid. 2. Significant ascites in the pelvis. Drainage tube is seen in the left side of the pelvis. 3. Cholelithiasis with thickened wall of the gallbladder. Evaluation for cholecystitis advised. 4. Slightly dilated small bowel loops in the left upper abdomen which may indicate ileus follow-up advised. 5. Right renal cysts. Upper GI Series 11/09/24 13:49 IMPRESSION: 1. Left lower quadrant jejunostomy tube in expected position with injected contrast opacifying the normal-appearing jejunum with no extraluminal leakage of contrast. Head CT 11/14/24 05:17 Impression: No intracranial hemorrhage, mass, or acute infarct. Atrophy and chronic white matter changes, as above. Chest X-Ray 11/14/24 05:55 Impression: Hazy left basilar airspace disease could reflect left lower lobe pneumonia. NG tube and right-sided PICC line in place. Abdomen Ultrasound 11/14/24 15:13 IMPRESSION: Highly suggestive cholecystitis with cholelithiasis and gallbladder sludge. Clinical correlation advised. Minimal ascites. Minimal right pleural effusion. Labs Labs: Laboratory Results - last 24 hr 11/14/24 11/14/24 11/14/24 13:48 15:12 18:25 WBC RBC Hgb Hct MCV MCH MCHC RDW Plt Count MPV PT INR APTT Sodium Potassium Chloride Carbon Dioxide Anion Gap BUN Creatinine Estim Creat Clear Calc Estimated GFR Glucose POC Capillary Glucose 104 92 Calcium Magnesium Urine Color Dyer H Urine Appearance Cloudy H Urine pH 5.0 Ur Specific [place] 1.026 Urine Protein 2+ H Urine Glucose (UA) Negative Urine Ketones Trace H Ur Blood (Man) Non-hemolyzed trace Urine Nitrate Positive H Urine Bilirubin 2+ H Urine Urobilinogen 0.2 Add Ur Microanalysis Reviewed Leukocyte Esterase Rfl 1+ H Urine RBC 21-50 H Urine WBC 0-5 Ur Squamous Epith Cells Many H Urine Bacteria None seen Urine Casts >20 Nasal MRSA (PCR) Not detected 11/14/24 11/15/24 11/15/24 20:06 04:42 11:28 WBC 21.1 H RBC 2.94 L Hgb 8.6 L Hct 27.5 L MCV 93.5 MCH 29.3 MCHC 31.3 L RDW 18.7 H Plt Count 314 MPV 10.2 PT 19.1 H INR 1.6 APTT 35.0 Sodium 145 Potassium 3.9 Chloride 115 H Carbon Dioxide 20 L Anion Gap 10 BUN 28 H Creatinine 0.99 Estim Creat Clear Calc 59 Estimated GFR > 60 Glucose 84 POC Capillary Glucose 90 79 Calcium 8.7 Magnesium 2.1 Urine Color Urine Appearance Urine pH Ur Specific [place] Urine Protein Urine Glucose (UA) Urine Ketones Ur Blood (Man) Urine Nitrate Urine Bilirubin Urine Urobilinogen Add Ur Microanalysis Leukocyte Esterase Rfl Urine RBC Urine WBC Ur Squamous Epith Cells Urine Bacteria Urine Casts Nasal MRSA (PCR)
--- NOTE | 2024-11-15 14:31 | PCOTNOTE ---
Attempted OT treatment session x 2 this afternoon. Patient was with PT, then out od the room, per RN, having a drain placed.
--- NOTE | 2024-11-15 15:19 | P.PNIM_ITS ---
Progress Note: A&P Assessment and Plan (1) Shock: Code(s): R57.9 - Shock, unspecified Status: Acute Assessment and Plan: Patient initially presented with septic shock Now patient has developed new hypotension. Suspect aspiration pneumonia versus UTI as patient has had Michelle for more than 2 weeks., or persistent C diff infection CT chest abdomen pelvis ABDOMEN/PELVIS: 1. Free air is seen anteriorly around the liver with minimal fluid. 2. Significant ascites in the pelvis. Drainage tube is seen in the left side of the pelvis. 3. Cholelithiasis with thickened wall of the gallbladder. Evaluation for cholecystitis advised. 4. Slightly dilated small bowel loops in the left upper abdomen which may indicate ileus follow-up advised. 5. Right renal cysts Blood, sputum culture culture are negative till now Michelle changed and UA sent procalcitonin level 8.2 Continue Dificid and meropenem Patient was given IV fluid bolus and now off of IV fluids Off 25% albumin Off Levophed infusion 11/14/24 Patient had hypotension,worsening leukocytosis. Also has Alejandro I lactic acid 2.5, magnesium 1.4. treatment started for severe sepsis. Will give IV fluid. Continue with meropenem. Vancomycin 11/15 Bp improved US showed cholecystitis. plan for cholecystostomy tube placement. surgery team on board (2) Metabolic encephalopathy: Code(s): G93.41 - Metabolic encephalopathy Status: Acute Assessment and Plan: Patient has had Altered mental status since admission which has been multifactorial Patient was evaluated by Neurology and suspected to have metabolic encephalopathy. -CT brain on presented was negative for intracranial abnormalities. Repeat CT scan 11/08 also unremarkable -MRI cannot be performed as patient was in the [place] and may have sharpnel exposure according to his daughter -10/19: Repeat CT brain did not show any acute intracranial hemorrhage or suspicious mass effect, inflammatory sinus disease. -10/19: CT facial bones showed extensive sinus disease with near complete opacification of the right maxillary sinus and dependently layering fluid in the bilateral sphenoid sinuses. Dental and periodontal disease with periapical lucency surrounding the posterior most remaining right maxillary molar His ammonia level was normal Patient had LP on 10/31 and and only abnormality seen was elevated protein viral studies are pending (3) Acute kidney injury: Code(s): N17.9 - Acute kidney failure, unspecified Status: Acute Assessment and Plan: ICU: Patient presented with Acute kidney injury which improved with IV fluids Now the creatinine has again went up I suspect this is due to hypovolemia and sepsis Fully replaced CT scan reviewed Patient was given IV fluids and creatinine improving. Hold further IV fluid Although his intake and output show that he is significantly volume overloaded. He has had FMS with diarrhea which makes I&Os inaccurate. He does have minimal edema on exam Nephrology following Monitor urine output electrolytes and creatinine CK level is normal Earlier in the course CT scan of the abdomen and pelvis did not show any hydronephrosis or stones and renal ultrasound also showed No hydronephrosis or renal calculi, no apparent, findings to suggest the presence of medical renal disease. Simple cyst within the right kidney 11/15/24 ALEJANDRO improved Continue with IVF (4) Anemia: Code(s): D64.9 - Anemia, unspecified Status: Acute Assessment and Plan: in ICU: Patient was anemic on presentation and received 2 units of PRBC. He was evaluate by Hematology Stool culture was negative and vitamin B12 were normal Folic acid was low and was supplement -iron panel was unremarkable He had EGD on 11/01 which showed gastritis and previous gastric surgery Hemoglobin dropped to 5.2 which could be partially dilutional versus GI loss 11/09 Transfuse 2 units PRBC Hold Lovenox and use SCDs Continue protonix Monitor hemoglobin 11/14/24 Hb Stable continue to monitor (5) Thrombocytopenia: Code(s): D69.6 - Thrombocytopenia, unspecified Status: Acute Assessment and Plan: Thrombocytopenia that patient initially presented with has improved High platelet count at this time suggest hemoconcentration (6) Hyperkalemia: Code(s): E87.5 - Hyperkalemia Status: Acute Assessment and Plan: Hyperkalemia with ALEJANDRO Calcium gluconate, insulin and D50, bicarb received Lokelma in ICU IV fluid bolus Now resolved (7) C. difficile diarrhea: Code(s): A04.72 - Enterocolitis due to Clostridium difficile, not specified as recurrent Status: Acute Assessment and Plan: Continue Dificid. Diarrhea improved. DC IV Flagyl CT abdomen pelvis reviewed (8) Acute respiratory failure: Code(s): J96.00 - Acute respiratory failure, unspecified whether with hypoxia or hypercapnia Status: Acute Assessment and Plan: improved Subjective Date/time seen: 11/15/24 15:19 Interval history: Sam has been admitted for septic shock pn 5/28 started on Levophed and admitted to ICU. T chest abdomen pelvis with no acute findings. Face CT with extensive sinus disease with near complete opacification of the right maxillary sinus and dependently layering fluid in the bilateral sphenoid sinuses. paitent was getting better. off Levophed on 10/18 Initially was on Cefepime and vancomycin but it was discontinued as there was no source on infection and neg blood cultre. on 10/19 patient had fever started on Rocephin for possible UTI vs sinusitis. C diff was positive on 10/22/24 started on Vancomycin and concluded on 11/01/24 AMS; MRI/Ct/EEG unremarkable except for sinusitis. Lumbar puncture 10/31/2024 with mildly elevated opening pressure of 23 cm water CSF with high-protein patient also had Alejandro and rhabdomyolysis which received IVF. Patient also had pancytopenia. Hematology oncology on board. Platelet improved. patient failed barium swallow . surgery team was consulted underwent Peg tube placement on 11/07/21 rapid response was called on 11/08/24 because of respiratory failure, hypotension, lactic acidosis. Patient was intubated and admitted to ICU.Ct concerning for cholecystitis and ileus. surgery team on board recommended to monitor patient has been on Dificid and meropenem patient gradually improving was transferred out of ICU 11/13/24 11/14/24 patient has been hypotensive and tachycardic this morning. receive IVF bolus. I saw and examined patient bedside. geovanna any chest pain, SOb, abd pain,N/V. Patient had worsening leukocytosis. Also has Alejandro I lactic acid 2.5, magnesium 1.4. treatment started for severe sepsis. Will give IV fluid. Continue with meropenem. Vancomycin was added. Surgery team on board. Plan for right upper quadrant ultrasound to evaluate ch olecystitis. Blood cultures pending 11/15/24 Patient was seen and examined at bedside. awake but not following/answering questions. hypotension improved .WBC improving US showed cholecystitis. plan for cholecystostomy tube placement. Review of Systems Review of Systems: All systems reviewed & are unremarkable except as noted in HPI and below ( Limited, A&O x1, unreliable) ROS unobtainable: Yes unobtainable due to mental status Exam Narrative: General: Patient is awake,, not in any distress Lungs/Chest: Trachea central Coarse BS B/L, few crackles on the left base Cardiac: RRR. Normal S1 S2. No murmurs Circulation: Pedal pulses are intact and symmetrical. Abdomen: Present bowel sounds. Midline incision is under dressing Soft. NT. ND. Extremities: Patient has some edema bilaterally in lower extremity : Michelle in place Neurologic: Patient is awake, not communicating not following commands in all extremities. Const: General: comfortable, no acute distress, alert, awake, confusion, ill appearing, patient obtunded (intubated. Just taken off sedation.) and thin Nutritional Appearance: thin Orientation/consciousness: confusion Other: , frail, ill-appearing, elderly HENMT: Face/Nose/Sinus: Normal nares present Mouth: Yes dry mucous membranes Other: ngt in place Eyes: General: appearance normal, both eyes and all related structures Sclera: sclerae normal Pupils: Equal, round and reactive pupils present EOM: EOMs intact bilaterally Neck: Neck: supple Resp: Effort & Inspection: normal respiratory effort Auscultation: clear to auscultation bilaterally Cardio: Rate: regular rate Rhythm: regular rhythm Other: S1-S2 present without murmur, rub, ectopy GI: Inspection: non-distended, incision (Dry and healing well, no erythema or drainage), scaphoid, scar (Large upper abdominal midline scar as before) and other (mildly distended) Auscultation: normal bowel sounds and Hypoactive bowel sounds present Other: Jejunostomy tube clamped and dressing dry and intact, no erythema around the jejunostomy tube : General: Yes bladder normal to palpation Urinary Catheter: Urinary Catheter: patent and draining Skin: General skin exam: normal color and no rashes or lesions noted Other: Superficial bilateral buttock friction maceration noted with three small (<2-3 cm) open wounds that are superficial with a healthy appearing pink wound bed, no necrotic tissue or purulent drainage. Neuro: General: confusion Cranial nerves: Yes Equal, round and reactive pupils present Other: Garbled speech, difficult to understand. A&O x1. Moving all extremities, however + 1 in all extremities. Left foot weaker than right. Calciminer symmetric. Right facial droop verses droop due to swelling. Extrem: General: normal to inspection Psych: Other: Poor insight and judgment at present, pleasant. Objective Data Vital Signs Vital Signs: Vital Signs - 24 hr 11/14/24 16:00 11/14/24 16:00 11/14/24 16:00 Temperature 97.6 F Pulse Rate 85 90 Respiratory Rate 18 Blood Pressure 108/65 Pulse Oximetry 93 Oxygen Delivery Room Air 11/14/24 18:00 11/14/24 20:00 11/14/24 20:08 Temperature 98.3 F Pulse Rate 94 97 96 Respiratory Rate 18 Blood Pressure 110/65 Pulse Oximetry 100 Oxygen Delivery 11/14/24 22:00 11/14/24 23:55 11/15/24 00:00 Temperature 98.2 F Pulse Rate 98 98 99 Respiratory Rate 18 Blood Pressure 123/72 Pulse Oximetry 95 Oxygen Delivery 11/15/24 02:00 11/15/24 03:35 11/15/24 04:00 Temperature 98.0 F Pulse Rate 100 99 95 Respiratory Rate 18 Blood Pressure 135/63 Pulse Oximetry 100 Oxygen Delivery 11/15/24 06:00 11/15/24 08:00 11/15/24 08:00 Temperature 98.5 F Pulse Rate 94 96 94 Respiratory Rate 14 Blood Pressure 136/73 Pulse Oximetry 99 Oxygen Delivery 11/15/24 10:00 11/15/24 12:00 11/15/24 12:00 Temperature 99.7 F H Pulse Rate 96 95 94 Respiratory Rate 14 Blood Pressure 136/76 Pulse Oximetry 99 Oxygen Delivery Intake/Output Intake/Output: Intake & Output 11/12/24 11/13/24 11/14/24 11/15/24 23:59 23:59 23:59 23:59 Intake Total 1668 092 763 0946 Output Total 3378 142 1600 300 [facility] [phone] Meds/Results Medications: Active Medications Generic Name Dose Route Start Last Admin Trade Name Freq PRN Reason Stop Dose Admin Acetaminophen 650 mg 11/13/24 21:07 Acetaminophen Elixir 325 Mg/10.15 Ml Udc FEED TUBE Q6H PRN Fever >101 Allopurinol 100 mg 11/15/24 09:00 11/15/24 09:04 Allopurinol 100 Mg Tablet FEED TUBE 100 mg DAILY JHONY Administration Amlodipine Besylate 10 mg 11/14/24 10:02 11/14/24 14:58 Amlodipine Besylate 10 Mg Tablet PO Not Given DAILY [facility] Aspirin 81 mg 11/04/24 08:00 11/15/24 09:04 Aspirin 81 Mg Chewable Tablet FEED TUBE 81 mg DAILY@0800 JHONY Administration Carvedilol 12.5 mg 11/14/24 10:02 11/14/24 14:58 Carvedilol 12.5 Mg Tablet PO Not Given BID JHONY Collagenase 1 applic 11/13/24 09:00 11/14/24 20:19 Collagenase Oint 30 Gm Tube TOPICAL Not Given Q12HR JHONY Dextrose 12.5 gm 10/17/24 21:26 10/30/24 05:55 Dextrose 50% 25 Gm/50 Ml Syringe IV PUSH 12.5 gm PRN PRN Administration Hypoglycemia Protocol Enoxaparin Sodium 40 mg 11/02/24 09:00 11/09/24 08:18 Enoxaparin 40 Mg/0.4 Ml Syringe SUB-Q 40 mg DAILY JHONY Administration Fidaxomicin 200 mg 11/08/24 09:00 11/15/24 09:03 Fidaxomicin 200 Mg Tablet FEED TUBE 11/18/24 08:59 200 mg Q12HR JHONY Administration Folic Acid 1 mg 10/24/24 09:00 11/15/24 09:04 Folic Acid 1 Mg Tablet FEED TUBE 1 mg QAM JHONY Administration Glucagon 1 mg 10/17/24 21:26 Glucagon For Inj 1 Mg Vial IM PRN PRN Hypoglycemia Protocol Glucose 15 gm 11/13/24 21:07 Glucose Oral Gel 15 Gm Of Glucse In 37.5 Gm Tube FEED TUBE PRN PRN Hypoglycemia Protocol Dextrose 1,000 mls @ 100 mls/hr 10/17/24 21:26 Dextrose 5% 1,000 Ml IVPB PRN PRN Hypoglycemia Protocol Meropenem 1 gm in 100 mls @ 200 mls/hr 11/08/24 11:30 11/15/24 09:04 IVPB 200 mls/hr Q12HR JHONY Administration Vancomycin HCl 1,250 mg in 250 mls @ 166.667 mls/hr 11/15/24 13:00 Vancomycin 1,250 Mg/Ns 250 Ml IVPB Q24H JHONY Sodium Chloride 1,000 mls @ 100 mls/hr 11/14/24 14:20 11/15/24 01:15 Normal Saline Iv IV CONT 100 mls/hr .Q10H JHONY Administration Insulin Aspart 3 - 6 units 11/08/24 12:00 11/15/24 13:53 Insulin Aspart (*Bkc) 100 Units/Ml SUB-Q Not Given Q6HR JHONY Protocol Pantoprazole Sodium 40 mg 10/18/24 21:00 11/15/24 09:04 Pantoprazole Sodium Iv 40 Mg Vial IV PUSH 40 mg Q12HR JHONY Administration Rosuvastatin Calcium 10 mg 11/04/24 09:00 11/15/24 09:03 Rosuvastatin 10 Mg Tablet FEED TUBE 10 mg DAILY JHONY Administration Saccharomyces Boulardii 250 mg 11/14/24 09:00 11/15/24 09:03 Saccharomyces Boulardii 250 Mg Capsule FEED TUBE 250 mg DAILY JHONY Administration Sodium Chloride 10 ml 11/08/24 14:00 11/15/24 04:44 Central Line Flush IV PUSH 10 ml Q8HR JHONY Administration Sodium Chloride 10 ml 11/08/24 08:15 Central Line Flush IV PUSH PRN PRN with TPN bag changes Sodium Chloride 20 ml 11/08/24 08:15 11/11/24 06:50 Central Line Flush IV PUSH 20 ml PRN PRN Administration after blood draws Thiamine HCl 100 mg 10/24/24 09:00 11/15/24 09:03 Thiamine Hcl 100 Mg Tablet FEED TUBE 100 mg QAM JHONY Administration Radiology Results: ITS Impressions Face CT 10/19/24 09:39 IMPRESSION: 1. Extensive sinus disease with near complete opacification of the right maxillary sinus and dependently layering fluid in the bilateral sphenoid sinuses. Correlate clinically for acute sinusitis. 2. Dental and periodontal disease with periapical lucency surrounding the posterior most remaining right maxillary molar. Renal Ultrasound 10/19/24 09:48 IMPRESSION: No hydronephrosis or renal calculi. No parenchymal findings to suggest the presence of medical renal disease. Simple cysts within the right kidney, for which no further follow-up is needed. Brain MRI 10/24/24 14:22 IMPRESSION: 1. Age-related changes the brain. No acute intracranial process. 2. Prominent sinus disease with fluid nearly filling the right maxillary sinus and layering dependently in the bilateral sphenoid sinuses. Correlate clinically for acute sinusitis. Lumbar Puncture Fluoroscopy 10/31/24 17:34 IMPRESSION: 1. Successful fluoro-guided lumbar puncture with mildly elevated opening pressure of 23 cm water. Modified Barium Swallow 11/06/24 10:05 IMPRESSION: Nondiagnostic study as all contents either leaked or were actively expelled from the mouth. No swallows were able to be evaluated. Please correlate with speech pathologist findings and specific feeding recommendations. Abdomen X-Ray 11/08/24 07:55 Impression: NG tube in satisfactory position. Probable small bowel obstruction. Chest/Abdomen/Pelvis CT 11/08/24 09:59 IMPRESSION: CHEST: 1. Right basilar atelectasis versus pneumonia with pleural effusion. 2. No other acute cardiopulmonary pathology. ABDOMEN/PELVIS: 1. Free air is seen anteriorly around the liver with minimal fluid. 2. Significant ascites in the pelvis. Drainage tube is seen in the left side of the pelvis. 3. Cholelithiasis with thickened wall of the gallbladder. Evaluation for cholecystitis advised. 4. Slightly dilated small bowel loops in the left upper abdomen which may indicate ileus follow-up advised. 5. Right renal cysts. Upper GI Series 11/09/24 13:49 IMPRESSION: 1. Left lower quadrant jejunostomy tube in expected position with injected contrast opacifying the normal-appearing jejunum with no extraluminal leakage of contrast. Head CT 11/14/24 05:17 Impression: No intracranial hemorrhage, mass, or acute infarct. Atrophy and chronic white matter changes, as above. Chest X-Ray 11/14/24 05:55 Impression: Hazy left basilar airspace disease could reflect left lower lobe pneumonia. NG tube and right-sided PICC line in place. Abdomen Ultrasound 11/14/24 15:13 IMPRESSION: Highly suggestive cholecystitis with cholelithiasis and gallbladder sludge. Cli nical correlation advised. Minimal ascites. Minimal right pleural effusion. Labs Labs: Laboratory Results - last 24 hr 11/14/24 11/14/24 11/14/24 15:12 18:25 20:06 WBC RBC Hgb Hct MCV MCH MCHC RDW Plt Count MPV PT INR APTT Sodium Potassium Chloride Carbon Dioxide Anion Gap BUN Creatinine Estim Creat Clear Calc Estimated GFR Glucose POC Capillary Glucose 92 90 Calcium Magnesium Urine Color [place] H Urine Appearance Cloudy H Urine pH 5.0 Ur Specific [place] 1.026 Urine Protein 2+ H Urine Glucose (UA) Negative Urine Ketones Trace H Ur Blood (Man) Non-hemolyzed trace Urine Nitrate Positive H Urine Bilirubin 2+ H Urine Urobilinogen 0.2 Add Ur Microanalysis Reviewed Leukocyte Esterase Rfl 1+ H Urine RBC 21-50 H Urine WBC 0-5 Ur Squamous Epith Cells Many H Urine Bacteria None seen Urine Casts >20 Nasal MRSA (PCR) Not detected 11/15/24 11/15/24 04:42 11:28 WBC 21.1 H RBC 2.94 L Hgb 8.6 L Hct 27.5 L MCV 93.5 MCH 29.3 MCHC 31.3 L RDW 18.7 H Plt Count 314 MPV 10.2 PT 19.1 H INR 1.6 APTT 35.0 Sodium 145 Potassium 3.9 Chloride 115 H Carbon Dioxide 20 L Anion Gap 10 BUN 28 H Creatinine 0.99 Estim Creat Clear Calc 59 Estimated GFR > 60 Glucose 84 POC Capillary Glucose 79 Calcium 8.7 Magnesium 2.1 Urine Color Urine Appearance Urine pH Ur Specific [place] Urine Protein Urine Glucose (UA) Urine Ketones Ur Blood (Man) Urine Nitrate Urine Bilirubin Urine Urobilinogen Add Ur Microanalysis Leukocyte Esterase Rfl Urine RBC Urine WBC Ur Squamous Epith Cells Urine Bacteria Urine Casts Nasal MRSA (PCR) Quality VTE Prophylaxis VTE prophylaxis: mechanical ordered
[2024-11-15] MEDS: COLLAGENASE OINT 30 GM TUBE 1 APPLIC TOPICAL ×2 (15:25→20:48)
[2024-11-15] MEDS: VANCOMYCIN 1,250 MG/NS 250 ML 1,250 MG/250 ML BAG 166.67 MG IVPB (15:25)
[2024-11-15] MEDS: DEXTROSE 5%/0.9% SOD CHL 1,000 ML 75 ML IV CONT (17:22)
[2024-11-16] VITALS (12 sets, daily range): BP systolic 122–136; BP diastolic 67–82; PULSE 80–90; RESP 18–24; TEMP 36.5–37.8; O2SAT 96–100
[2024-11-16] MEDS: CENTRAL LINE FLUSH 10 ML IV PUSH ×3 (04:47→21:33)
[2024-11-16 05:02] LABS: Hematocrit 28.9 % (42.0-52.0); Hemoglobin 9.0 g/dL (14.0-18.0); Mean Corpuscular HGB Conc 31.1 g/dl (32-36); Mean Corpuscular Hemoglobin 29.2 pg (26-34); Mean Corpuscular Volume 93.8 fl (80-100); Platelet Count Result 274 k/mm3 (150-375); Red Blood Count 3.08 M/mm3 (4.6-6.20); White Blood Count 13.3 K/mm3 (4.5-10.0)
[2024-11-16 05:19] LABS: Alanine Aminotransferase 14 U/L (6-50); Albumin Level 2.6 g/dL (3.5-5.1); Alkaline Phosphatase 97 U/L (38-126); Anion Gap 9 mmol/L (4-12); Aspartate Amino Transferase 30 U/L (17-59); Bilirubin,Total 1.4 mg/dL (0.2-1.3); Blood Urea Nitrogen 19 mg/dL (9-20); Calcium 8.5 mg/dL (8.4-10.2); Carbon Dioxide 20 mmol/L (22-30); Chloride 119 mmol/L (98-107); Estimated CRCL calculation 72 ml/min; Estimated Glomerular Filt Rate > 60; Glucose 92 mg/dL (65-110); Potassium 3.6 mmol/L (3.4-5.0); Sodium 148 mmol/L (137-145); Total Protein 6.3 g/dL (6.3-8.2)
--- NOTE | 2024-11-16 08:31 | P.PNGS_ITS ---
Progress Note: A&P Assessment and Plan (1) Cholelithiasis and acute cholecystitis without obstruction: Code(s): K80.00 - Calculus of gallbladder with acute cholecystitis without obstruction Status: Acute Assessment and Plan: Cholecystostomy tube placement should alleviate acute cholecystitis in a minimally invasive way. Continue antibiotics. (2) Unable to eat: Code(s): R63.8 - Other symptoms and signs concerning food and fluid intake Status: Acute Assessment and Plan: Change in ostomy tube in place, no evidence of complications or leakage on any imaging studies. Recommend proceeding with tube feedings per J-tube. (3) History of jejunostomy tube placement: Status: Acute Assessment and Plan: Wound healing well, no problems with J-tube Subjective Subjective Date/Time Seen: 11/16/24 08:31 Patient reports: afebrile and other (Appears comfortable this morning, no apparent pain) Exam Const: General: awake, lethargic and tired appearing GI: Inspection: incision (J tube incision healing well, J tube capped.) and other (Cholecystostomy tube in place, draining bile) GI Palp: Yes Soft to palpation and No Tenderness to palpation present (GI) Objective Data Vital Signs Vital Signs: Vital Signs - 24 hr 11/15/24 10:00 11/15/24 12:00 11/15/24 12:00 Temperature 37.6 C H Pulse Rate 96 95 94 Respiratory Rate 14 Blood Pressure 136/76 Pulse Oximetry 99 Oxygen Delivery 11/15/24 14:00 11/15/24 16:00 11/15/24 16:00 Temperature 37.6 C Pulse Rate 78 88 84 Respiratory Rate 18 Blood Pressure 137/83 Pulse Oximetry 99 Oxygen Delivery 11/15/24 18:00 11/15/24 20:00 11/15/24 20:00 Temperature 36.6 C Pulse Rate 86 84 Respiratory Rate 18 Blood Pressure 140/76 Pulse Oximetry 100 Oxygen Delivery Room Air 11/15/24 20:00 11/15/24 22:00 11/15/24 23:43 Temperature Pulse Rate 83 79 Respiratory Rate Blood Pressure Pulse Oximetry Oxygen Delivery Room Air 11/16/24 00:00 11/16/24 00:00 11/16/24 02:00 Temperature 37.4 C Pulse Rate 81 80 84 Respiratory Rate 24 H Blood Pressure 122/68 Pulse Oximetry 98 Oxygen Delivery 11/16/24 04:00 11/16/24 04:00 11/16/24 04:00 Temperature 37.8 C H Pulse Rate 84 83 Respiratory Rate 18 Blood Pressure 135/73 Pulse Oximetry 98 Oxygen Delivery Room Air 11/16/24 05:51 11/16/24 07:47 Temperature 36.5 C Pulse Rate 84 83 Respiratory Rate 20 Blood Pressure 136/74 Pulse Oximetry 100 Oxygen Delivery Intake/Output Intake/Output: Intake & Output 11/13/24 11/14/24 11/15/24 11/16/24 23:59 23:59 23:59 23:59 Intake Total 292 924 4009 Output Total 1425 1600 1313 1950 Balance -528 -1400 137 -4352 Meds/Results Medications: Active Medications Generic Name Dose Route Start Last Admin Trade Name Freq PRN Reason Stop Dose Admin Acetaminophen 650 mg 11/13/24 21:07 Acetaminophen Elixir 325 Mg/10.15 Ml Udc FEED TUBE Q6H PRN Fever >101 Allopurinol 100 mg 11/15/24 09:00 11/15/24 09:04 Allopurinol 100 Mg Tablet FEED TUBE 100 mg DAILY JHONY Administration Amlodipine Besylate 10 mg 11/14/24 10:02 11/14/24 14:58 Amlodipine Besylate 10 Mg Tablet PO Not Given DAILY JHONY Aspirin 81 mg 11/04/24 08:00 11/15/24 09:04 Aspirin 81 Mg Chewable Tablet FEED TUBE 81 mg DAILY@0800 JHONY Administration Carvedilol 12.5 mg 11/14/24 10:02 11/14/24 14:58 Carvedilol 12.5 Mg Tablet PO Not Given BID JHONY Collagenase 1 applic 11/13/24 09:00 11/15/24 20:48 Collagenase Oint 30 Gm Tube TOPICAL 1 applic Q12HR JHONY Administration Dextrose 12.5 gm 10/17/24 21:26 10/30/24 05:55 Dextrose 50% 25 Gm/50 Ml Syringe IV PUSH 12.5 gm PRN PRN Administration Hypoglycemia Protocol Enoxaparin Sodium 40 mg 11/02/24 09:00 11/09/24 08:18 Enoxaparin 40 Mg/0.4 Ml Syringe SUB-Q 40 mg DAILY JHONY Administration Fidaxomicin 200 mg 11/08/24 09:00 11/15/24 19:40 Fidaxomicin 200 Mg Tablet FEED TUBE 11/18/24 08:59 Not Given Q12HR JHONY Folic Acid 1 mg 10/24/24 09:00 11/15/24 09:04 Folic Acid 1 Mg Tablet FEED TUBE 1 mg QAM JHONY Administration Glucagon 1 mg 10/17/24 21:26 Glucagon For Inj 1 Mg Vial IM PRN PRN Hypoglycemia Protocol Glucose 15 gm 11/13/24 21:07 Glucose Oral Gel 15 Gm Of Glucse In 37.5 Gm Tube FEED TUBE PRN PRN Hypoglycemia Protocol Dextrose 1,000 mls @ 100 mls/hr 10/17/24 21:26 Dextrose 5% 1,000 Ml IVPB PRN PRN Hypoglycemia Protocol Meropenem 1 gm in 100 mls @ 200 mls/hr 11/08/24 11:30 11/15/24 21:20 IVPB Infused Q12HR JHONY Infusion Vancomycin HCl 1,250 mg in 250 mls @ 166.667 mls/hr 11/15/24 13:00 11/15/24 16:50 Vancomycin 1,250 Mg/Ns 250 Ml IVPB Infused Q24H JHONY Infusion Dextrose/Sodium Chloride 1,000 mls @ 75 mls/hr 11/15/24 17:15 11/15/24 17:22 Dextrose 5% Sodium Chloride 0.9% IV CONT 75 mls/hr .[id number] JHONY Administration Insulin Aspart 3 - 6 units 11/08/24 12:00 11/16/24 05:53 Insulin Aspart (*Bkc) 100 Units/Ml SUB-Q Not Given Q6HR JHONY Protocol Pantoprazole Sodium 40 mg 10/18/24 21:00 11/15/24 20:50 Pantoprazole Sodium Iv 40 Mg Vial IV PUSH 40 mg Q12HR JHONY Administration Rosuvastatin Calcium 10 mg 11/04/24 09:00 11/15/24 09:03 Rosuvastatin 10 Mg Tablet FEED TUBE 10 mg DAILY JHONY Administration Saccharomyces Boulardii 250 mg 11/14/24 09:00 11/15/24 09:03 Saccharomyces Boulardii 250 Mg Capsule FEED TUBE 250 mg DAILY JHONY Administration Sodium Chloride 10 ml 11/08/24 14:00 11/16/24 04:47 Central Line Flush IV PUSH 10 ml Q8HR JHONY Administration Sodium Chloride 10 ml 11/08/24 08:15 Central Line Flush IV PUSH PRN PRN with TPN bag changes Sodium Chloride 20 ml 11/08/24 08:15 11/11/24 06:50 Central Line Flush IV PUSH 20 ml PRN PRN Administration after blood draws Thiamine HCl 100 mg 10/24/24 09:00 11/15/24 09:03 Thiamine Hcl 100 Mg Tablet FEED TUBE 100 mg QAM JHONY Administration Radiology Results: ITS Impressions Face CT 10/19/24 09:39 IMPRESSION: 1. Extensive sinus disease with near complete opacification of the right maxillary sinus and dependently layering fluid in the bilateral sphenoid sinuses. Correlate clinically for acute sinusitis. 2. Dental and periodontal disease with periapical lucency surrounding the posterior most remaining right maxillary molar. Renal Ultrasound 10/19/24 09:48 IMPRESSION: No hydronephrosis or renal calculi. No parenchymal findings to suggest the presence of medical renal disease. Simple cysts within the right kidney, for which no further follow-up is needed. Brain MRI 10/24/24 14:22 IMPRESSION: 1. Age-related changes the brain. No acute intracranial process. 2. Prominent sinus disease with fluid nearly filling the right maxillary sinus and layering dependently in the bilateral sphenoid sinuses. Correlate clinically for acute sinusitis. Lumbar Puncture Fluoroscopy 10/31/24 17:34 IMPRESSION: 1. Successful fluoro-guided lumbar puncture with mildly elevated opening pressure of 23 cm water. Modified Barium Swallow 11/06/24 10:05 IMPRESSION: Nondiagnostic study as all contents either leaked or were actively expelled from the mouth. No swallows were able to be evaluated. Please correlate with speech pathologist findings and specific feeding recommendations. Abdomen X-Ray 11/08/24 07:55 Impression: NG tube in satisfactory position. Probable small bowel obstruction. Chest/Abdomen/Pelvis CT 11/08/24 09:59 IMPRESSION: CHEST: 1. Right basilar atelectasis versus pneumonia with pleural effusion. 2. No other acute cardiopulmonary pathology. ABDOMEN/PELVIS: 1. Free air is seen anteriorly around the liver with minimal fluid. 2. Significant ascites in the pelvis. Drainage tube is seen in the left side of the pelvis. 3. Cholelithiasis with thickened wall of the gallbladder. Evaluation for c holecystitis advised. 4. Slightly dilated small bowel loops in the left upper abdomen which may indicate ileus follow-up advised. 5. Right renal cysts. Upper GI Series 11/09/24 13:49 IMPRESSION: 1. Left lower quadrant jejunostomy tube in expected position with injected contrast opacifying the normal-appearing jejunum with no extraluminal leakage of contrast. Head CT 11/14/24 05:17 Impression: No intracranial hemorrhage, mass, or acute infarct. Atrophy and chronic white matter changes, as above. Chest X-Ray 11/14/24 05:55 Impression: Hazy left basilar airspace disease could reflect left lower lobe pneumonia. NG tube and right-sided PICC line in place. Abdomen Ultrasound 11/14/24 15:13 IMPRESSION: Highly suggestive cholecystitis with cholelithiasis and gallbladder sludge. Clinical correlation advised. Minimal ascites. Minimal right pleural effusion. Cholecystostomy 11/15/24 16:04 IMPRESSION: 1. Successful ultrasound-guided cholecystostomy tube placement. 2. 13 mL bile was sent for aerobic, anaerobic, and fungal cultures. 3. The catheter will be managed by Dr. Ortiz. A catheter cholangiogram may be performed not less than 48 hours after tube placement if clinically indicated to assess cystic duct patency. If cholecystectomy is not eventually performed and the infectious episode has resolved, the tube may be removed over a guidewire, preferably not less than 3 weeks after placement to allow time for a mature catheter tract to form to prevent bile leakage and peritonitis. Labs Labs: Laboratory Results - last 24 hr 11/15/24 11/15/24 11/15/24 04:42 11:28 18:14 WBC RBC Hgb Hct MCV MCH MCHC RDW Plt Count MPV Sodium Potassium Chloride Carbon Dioxide Anion Gap BUN Creatinine Estim Creat Clear Calc Estimated GFR Glucose POC Capillary Glucose 79 80 Calcium Magnesium 2.1 Total Bilirubin Direct Bilirubin AST ALT Alkaline Phosphatase Total Protein Albumin 11/16/24 11/16/24 11/16/24 00:01 04:48 05:57 WBC 13.3 H RBC 3.08 L Hgb 9.0 L Hct 28.9 L MCV 93.8 MCH 29.2 MCHC 31.1 L RDW 18.6 H Plt Count 274 MPV 10.4 Sodium 148 H Potassium 3.6 Chloride 119 H Carbon Dioxide 20 L Anion Gap 9 BUN 19 Creatinine 0.80 Estim Creat Clear Calc 72 Estimated GFR > 60 Glucose 92 POC Capillary Glucose 90 87 Calcium 8.5 Magnesium Total Bilirubin 1.4 H Direct Bilirubin 0.0 AST 30 ALT 14 Alkaline Phosphatase 97 Total Protein 6.3 Albumin 2.6 L
--- NOTE | 2024-11-16 09:50 | PCNFU ---
Nutrition Follow-Up Complete: Inadequate Oral Intake as related to AMS as evidenced by NPO. Meet estimated nutritional needs - Not being met currently with tube feedings on hold. Continue progress with goal Goal: Pt current nutrition is Jevity 1.5@ goal rate 55 ml/h with flushes as ordered by MD. ON HOLD Nutrition recommendation: Recommend starting Jevity 1.5 @ 20 ml/h and progress slowly to goal of 55 ml/h for tolerance. Tolerance may improve with promotility agent such as Reglan. Last recorded weight is 72.2 kg. Bowel Motility: Liquid stool +1 per FMS (C-diff+, improving) Labs Reviewed: Hgb 9.0, Hct 28.9, Na 148 Meds Noted: D5, folic acid, thimaine, lovenox, dificid Skin: WNL Additional Notes: Leigh tube was placed. Recommend starting TF @ 20 ml/h for tolerance. will monitor weight, labs, skin, diet orders, meds every 3 days.
[2024-11-16] MEDS: SACCHAROMYCES BOULARDII 250 MG CAPSULE FEED TUBE (09:58)
[2024-11-16] MEDS: ROSUVASTATIN 10 MG TABLET FEED TUBE (09:58)
[2024-11-16] MEDS: PANTOPRAZOLE SODIUM IV 40 MG VIAL IV PUSH ×2 (09:58→21:33)
[2024-11-16] MEDS: THIAMINE HCL 100 MG TABLET FEED TUBE (09:58)
[2024-11-16] MEDS: FOLIC ACID 1 MG TABLET FEED TUBE (09:58)
[2024-11-16] MEDS: MEROPENEM 1 GM/NS 100 ML 1 GM/100 ML BAG IVPB ×2 (09:58→21:33)
[2024-11-16] MEDS: FIDAXOMICIN 200 MG TABLET FEED TUBE ×2 (10:00→21:32)
[2024-11-16] MEDS: ASPIRIN 81 MG CHEWABLE TABLET FEED TUBE (10:00)
[2024-11-16] MEDS: COLLAGENASE OINT 30 GM TUBE 1 APPLIC TOPICAL ×2 (10:00→21:34)
--- NOTE | 2024-11-16 13:43 | PCPTNOTE ---
Attempted to see patient for PT, however patient working with OT.
[2024-11-16] MEDS: VANCOMYCIN 1,250 MG/NS 250 ML 1,250 MG/250 ML BAG 166.67 MG IVPB (13:47)
--- NOTE | 2024-11-16 15:52 | P.PNIM_ITS ---
Progress Note: A&P Assessment and Plan (1) Shock: Code(s): R57.9 - Shock, unspecified Status: Acute Assessment and Plan: Patient initially presented with septic shock Now patient has developed new hypotension 11/08/2024. Suspect aspiration pneumonia versus UTI as patient has had Michelle for more than 2 weeks., or persistent C diff infection CT chest abdomen pelvis ABDOMEN/PELVIS: 1. Free air is seen anteriorly around the liver with minimal fluid. 2. Significant ascites in the pelvis. Drainage tube is seen in the left side of the pelvis. 3. Cholelithiasis with thickened wall of the gallbladder. Evaluation for cholecystitis advised. 4. Slightly dilated small bowel loops in the left upper abdomen which may indicate ileus follow-up advised. 5. Right renal cysts Blood, sputum culture culture are negative till now Michelle changed and UA sent procalcitonin level 8.2 Continue Dificid and meropenem Patient was given IV fluid bolus and now off of IV fluids Off 25% albumin Off Levophed infusion Blood pressure fluctuating. But more stable now 11/14/2024 worsened leukocytosis with hypotension up to 28 K. Meropenem and vancomycin added. Ultrasound with cholecystitis now status post cholecystostomy tube placement 11/15/2024. (2) Metabolic encephalopathy: Code(s): G93.41 - Metabolic encephalopathy Status: Acute Assessment and Plan: Patient has had Altered mental status since admission which has been multifactorial Patient was evaluated by Neurology and suspected to have metabolic encephalopathy. -CT brain on presented was negative for intracranial abnormalities. Repeat CT scan 11/08 also unremarkable -MRI cannot be performed as patient was in the [place] and may have sharpnel exposure according to his daughter -10/19: Repeat CT brain did not show any acute intracranial hemorrhage or suspicious mass effect, inflammatory sinus disease. -10/19: CT facial bones showed extensive sinus disease with near complete opacification of the right maxillary sinus and dependently layering fluid in the bilateral sphenoid sinuses. Dental and periodontal disease with periapical lucency surrounding the posterior most remaining right maxillary molar His ammonia level was normal Patient had LP on 10/31 and and only abnormality seen was elevated protein viral studies are pending (3) Acute kidney injury: Code(s): N17.9 - Acute kidney failure, unspecified Status: Acute Assessment and Plan: ICU: Patient presented with Acute kidney injury which improved with IV fluids Now the creatinine has again went up I suspect this is due to hypovolemia and sepsis Fully replaced CT scan reviewed Patient was given IV fluids and creatinine improving. Hold further IV fluid Although his intake and output show that he is significantly volume overloaded. He has had FMS with diarrhea which makes I&Os inaccurate. He does have minimal edema on exam Nephrology following Monitor urine output electrolytes and creatinine CK level is normal Earlier in the course CT scan of the abdomen and pelvis did not show any hydronephrosis or stones and renal ultrasound also showed No hydronephrosis or renal calculi, no apparent, findings to suggest the presence of medical renal disease. Simple cyst within the right kidney ALEJANDRO has now resolved (4) Anemia: Code(s): D64.9 - Anemia, unspecified Status: Acute Assessment and Plan: in ICU: Patient was anemic on presentation and received 2 units of PRBC. He was evaluate by Hematology Stool culture was negative and vitamin B12 were normal Folic acid was low and was supplement -iron panel was unremarkable He had EGD on 11/01 which showed gastritis and previous gastric surgery Hemoglobin dropped to 5.2 which could be partially dilutional versus GI loss 11/09 Transfuse 2 units PRBC Hold Lovenox and use SCDs Continue protonix Monitor hemoglobin (5) Thrombocytopenia: Code(s): D69.6 - Thrombocytopenia, unspecified Status: Acute Assessment and Plan: Thrombocytopenia that patient initially presented with has improved High platelet count at this time suggest hemoconcentration (6) Hyperkalemia: Code(s): E87.5 - Hyperkalemia Status: Acute Assessment and Plan: Hyperkalemia with ALEJANDRO Calcium gluconate, insulin and D50, bicarb received Lokelma in ICU IV fluid bolus Now resolved (7) C. difficile diarrhea: Code(s): A04.72 - Enterocolitis due to Clostridium difficile, not specified as recurrent Status: Acute Assessment and Plan: Continue Dificid. Diarrhea improved. DC IV Flagyl CT abdomen pelvis reviewed (8) Acute respiratory failure: Code(s): J96.00 - Acute respiratory failure, unspecified whether with hypoxia or hypercapnia Status: Acute Assessment and Plan: improved Plan Will start her GT feeding today. Transferred to [facility] floor Subjective Date/time seen: 11/16/24 15:52 Interval history: Sam has been admitted for septic shock pn 10/17 started on Levophed and admitted to ICU. T chest abdomen pelvis with no acute findings. Face CT with extensive sinus disease with near complete opacification of the right maxillary sinus and dependently layering fluid in the bilateral sphenoid sinuses. paitent was getting better. off Levophed on 10/18 Initially was on Cefepime and vancomycin but it was discontinued as there was no source on infection and neg blood cultre. on 10/19 patient had fever started on Rocephin for possible UTI vs sinusitis. C diff was positive on 10/22/24 started on Vancomycin and concluded on 11/01/24 AMS; MRI/Ct/EEG unremarkable except for sinusitis. Lumbar puncture 10/31/2024 with mildly elevated opening pressure of 23 cm water CSF with high-protein patient also had Alejandro and rhabdomyolysis which received IVF. Patient also had pancytopenia. Hematology oncology on board. Platelet improved. patient failed barium swallow . surgery team was consulted underwent Peg tube placement on 11/07/21 rapid response was called on 11/08/24 because of respiratory failure, hypotension, lactic acidosis. Patient was intubated and admitted to ICU.Ct concerning for cholecystitis and ileus. surgery team on board recommended to monitor patient has been on Dificid and meropenem patient gradually improving was transferred out of ICU 11/13/24 11/14/24 patient has been hypotensive and tachycardic this morning. receive IVF bolus. I saw and examined patient bedside. geovanna any chest pain, SOb, abd pain,N/V. Patient had worsening leukocytosis. Also has Alejandro I lactic acid 2.5, magnesium 1.4. treatment started for severe sepsis. Will give IV fluid. Continue with meropenem. Vancomycin was added. Surgery team on board. Plan for right upper quadrant ultrasound to evaluate c holecystitis. Blood cultures pending 11/15/24 Patient was seen and examined at bedside. awake but not following/answering questions. hypotension improved .WBC improving US showed cholecystitis. plan for cholecystostomy tube placement. 11/16/2024 No overnight events. Discussed with nursing staff. Awake follow some commands. Labs reviewed. Status post cholecystostomy tube placed. Review of Systems Review of Systems: ROS unobtainable: Yes unobtainable due to medical condition and unobtainable due to mental status Exam Narrative: General: Patient is awake,, not in any distress Lungs/Chest: Trachea central Coarse BS B/L, few crackles on the left base Cardiac: RRR. Normal S1 S2. No murmurs Circulation: Pedal pulses are intact and symmetrical. Abdomen: Present bowel sounds. Midline incision is under dressing Soft. NT. ND. G-tube in place Extremities: Patient has some edema bilaterally in lower extremity : Michelle in place Neurologic: Patient is awake, follows some commands Objective Data Vital Signs Vital Signs: Vital Signs - 24 hr 11/15/24 16:00 11/15/24 16:00 11/15/24 18:00 Temperature 99.6 F Pulse Rate 88 84 86 Respiratory Rate 18 Blood Pressure 137/83 Pulse Oximetry 99 Oxygen Delivery Fraction of Inspired Oxygen 11/15/24 20:00 11/15/24 20:00 11/15/24 20:00 Temperature 97.9 F Pulse Rate 84 83 Respiratory Rate 18 Blood Pressure 140/76 Pulse Oximetry 100 Oxygen Delivery Room Air Fraction of Inspired Oxygen 11/15/24 22:00 11/15/24 23:43 11/16/24 00:00 Temperature 99.3 F Pulse Rate 79 81 Respiratory Rate 24 H Blood Pressure 122/68 Pulse Oximetry 98 Oxygen Delivery Room Air Fraction of Inspired Oxygen 11/16/24 00:00 11/16/24 02:00 11/16/24 04:00 Temperature 100.0 F H Pulse Rate 80 84 84 Respiratory Rate 18 Blood Pressure 135/73 Pulse Oximetry 98 Oxygen Delivery Fraction of Inspired Oxygen 11/16/24 04:00 11/16/24 04:00 11/16/24 05:51 Temperature Pulse Rate 83 84 Respiratory Rate Blood Pressure Pulse Oximetry Oxygen Delivery Room Air Fraction of Inspired Oxygen 11/16/24 07:47 11/16/24 08:00 11/16/24 08:00 Temperature 97.7 F Pulse Rate 83 83 85 Respiratory Rate 20 20 Blood Pressure 136/74 Pulse Oximetry 100 100 Oxygen Delivery Room Air Fraction of Inspired Oxygen 28 11/16/24 10:00 11/16/24 11:44 Temperature 98.0 F Pulse Rate 84 84 Respiratory Rate 20 Blood Pressure 133/77 Pulse Oximetry 96 Oxygen Delivery Fraction of Inspired Oxygen Intake/Output Intake/Output: Intake & Output 11/13/24 11/14/24 11/15/24 11/16/24 23:59 23:59 23:59 23:59 Intake Total 332 547 4006 Output Total 1425 1600 1313 1950 [facility] [phone] Meds/Results Medications: Active Medications Generic Name Dose Route Start Last Admin Trade Name Freq PRN Reason Stop Dose Admin Acetaminophen 650 mg 11/13/24 21:07 Acetaminophen Elixir 325 Mg/10.15 Ml Udc FEED TUBE Q6H PRN Fever >101 Allopurinol 100 mg 11/15/24 09:00 11/16/24 10:00 Allopurinol 100 Mg Tablet FEED TUBE 100 mg DAILY JHONY Administration Amlodipine Besylate 10 mg 11/14/24 10:02 11/14/24 14:58 Amlodipine Besylate 10 Mg Tablet PO Not Given DAILY JOHNY Aspirin 81 mg 11/04/24 08:00 11/16/24 10:00 Aspirin 81 Mg Chewable Tablet FEED TUBE 81 mg DAILY@0800 JHONY Administration Carvedilol 12.5 mg 11/14/24 10:02 11/14/24 14:58 Carvedilol 12.5 Mg Tablet PO Not Given BID JHONY Collagenase 1 applic 11/13/24 09:00 11/16/24 10:00 Collagenase Oint 30 Gm Tube TOPICAL 1 applic Q12HR JHONY Administration Dextrose 12.5 gm 10/17/24 21:26 10/30/24 05:55 Dextrose 50% 25 Gm/50 Ml Syringe IV PUSH 12.5 gm PRN PRN Administration Hypoglycemia Protocol Enoxaparin Sodium 40 mg 11/02/24 09:00 11/09/24 08:18 Enoxaparin 40 Mg/0.4 Ml Syringe SUB-Q 40 mg DAILY JHONY Administration Fidaxomicin 200 mg 11/08/24 09:00 11/16/24 10:00 Fidaxomicin 200 Mg Tablet FEED TUBE 11/18/24 08:59 200 mg Q12HR JHONY Administration Folic Acid 1 mg 10/24/24 09:00 11/16/24 09:58 Folic Acid 1 Mg Tablet FEED TUBE 1 mg QAM JHONY Administration Glucagon 1 mg 10/17/24 21:26 Glucagon For Inj 1 Mg Vial IM PRN PRN Hypoglycemia Protocol Glucose 15 gm 11/13/24 21:07 Glucose Oral Gel 15 Gm Of Glucse In 37.5 Gm Tube FEED TUBE PRN PRN Hypoglycemia Protocol Dextrose 1,000 mls @ 100 mls/hr 10/17/24 21:26 Dextrose 5% 1,000 Ml IVPB PRN PRN Hypoglycemia Protocol Meropenem 1 gm in 100 mls @ 200 mls/hr 11/08/24 11:30 11/16/24 09:58 IVPB 200 mls/hr Q12HR JHONY Administration Dextrose/Sodium Chloride 1,000 mls @ 75 mls/hr 11/15/24 17:15 11/15/24 17:22 Dextrose 5% Sodium Chloride 0.9% IV CONT 75 mls/hr .[id number] JHONY Administration Vancomycin HCl 1,250 mg in 250 mls @ 166.667 mls/hr 11/16/24 13:00 Vancomycin 1,250 Mg/Ns 250 Ml IVPB Q18H JHONY Insulin Aspart 3 - 6 units 11/08/24 12:00 11/16/24 13:42 Insulin Aspart (*Bkc) 100 Units/Ml SUB-Q Not Given Q6HR JHONY Protocol Pantoprazole Sodium 40 mg 10/18/24 21:00 11/16/24 09:58 Pantoprazole Sodium Iv 40 Mg Vial IV PUSH 40 mg Q12HR JHONY Administration Rosuvastatin Calcium 10 mg 11/04/24 09:00 11/16/24 09:58 Rosuvastatin 10 Mg Tablet FEED TUBE 10 mg DAILY JHONY Administration Saccharomyces Boulardii 250 mg 11/14/24 09:00 11/16/24 09:58 Saccharomyces Boulardii 250 Mg Capsule FEED TUBE 250 mg DAILY JHONY Administration Sodium Chloride 10 ml 11/08/24 14:00 11/16/24 04:47 Central Line Flush IV PUSH 10 ml Q8HR JHONY Administration Sodium Chloride 10 ml 11/08/24 08:15 Central Line Flush IV PUSH PRN PRN with TPN bag changes Sodium Chloride 20 ml 11/08/24 08:15 11/11/24 06:50 Central Line Flush IV PUSH 20 ml PRN PRN Administration after blood draws Thiamine HCl 100 mg 10/24/24 09:00 11/16/24 09:58 Thiamine Hcl 100 Mg Tablet FEED TUBE 100 mg QAM JHONY Administration Radiology Results: ITS Impressions Face CT 10/19/24 09:39 IMPRESSION: 1. Extensive sinus disease with near complete opacification of the right maxillary sinus and dependently layering fluid in the bilateral sphenoid sinuses. Correlate clinically for acute sinusitis. 2. Dental and periodontal disease with periapical lucency surrounding the posterior most remaining right maxillary molar. Renal Ultrasound 10/19/24 09:48 IMPRESSION: No hydronephrosis or renal calculi. No parenchymal findings to suggest the presence of medical renal disease. Simple cysts within the right kidney, for which no further follow-up is needed. Brain MRI 10/24/24 14:22 IMPRESSION: 1. Age-related changes the brain. No acute intracranial process. 2. Prominent sinus disease with fluid nearly filling the right maxillary sinus and layering dependently in the bilateral sphenoid sinuses. Correlate clinically for acute sinusitis. Lumbar Puncture Fluoroscopy 10/31/24 17:34 IMPRESSION: 1. Successful fluoro-guided lumbar puncture with mildly elevated opening pressure of 23 cm water. Modified Barium Swallow 11/06/24 10:05 IMPRESSION: Nondiagnostic study as all contents either leaked or were actively expelled from the mouth. No swallows were able to be evaluated. Please correlate with speech pathologist findings and specific feeding recommendations. Abdomen X-Ray 11/08/24 07:55 Impression: NG tube in satisfactory position. Probable small bowel obstruction. Chest/Abdomen/Pelvis CT 11/08/24 09:59 IMPRESSION: CHEST: 1. Right basilar atelectasis versus pneumonia with pleural effusion. 2. No other acute cardiopulmonary pathology. ABDOMEN/PELVIS: 1. Free air is seen anteriorly around the liver with minimal fluid. 2. Significant ascites in the pelvis. Drainage tube is seen in the left side of the pelvis. 3. Cholelithiasis with thickened wall of the gallbladder. Evaluation for cholecystitis advised. 4. Slightly dilated small bowel loops in the left upper abdomen which may indicate ileus follow-up advised. 5. Right renal cysts. Upper GI Series 11/09/24 13:49 IMPRESSION: 1. Left lower quadrant jejunostomy tube in expected position with injected contrast opacifying the normal-appearing jejunum with no extraluminal leakage of contrast. Head CT 11/14/24 05:17 Impression: No intracranial hemorrhage, mass, or acute infarct. Atrophy and chronic white matter changes, as above. Chest X-Ray 11/14/24 05:55 Impression: Hazy left basilar airspace disease could reflect left lower lobe pneumonia. NG tube and right-sided PICC line in place. Abdomen Ultrasound 11/14/24 15:13 IMPRESSION: Highly suggestive cholecystitis with cholelithiasis and gallbladder sludge. Clinical correlation advised. Minimal ascites. Minimal right pleural effusion. Cholecystostomy 11/15/24 16:04 IMPRESSION: 1. Successful ultrasound-guided cholecystostomy tube placement. 2. 13 mL bile was sent for aerobic, anaerobic, and fungal cultures. 3. The catheter will be managed by Dr. Ortiz. A catheter cholangiogram may be performed not less than 48 hours after tube placement if clinically indicated to assess cystic duct patency. If cholecystectomy is not eventually performed and the infectious episode has resolved, the tube may be removed over a guidewire, preferably not less than 3 weeks after placement to allow time for a mature catheter tract to form to prevent bile leakage and peritonitis. Labs Labs: Laboratory Results - last 24 hr 11/15/24 11/16/24 11/16/24 18:14 00:01 04:48 WBC 13.3 H RBC 3.08 L Hgb 9.0 L Hct 28.9 L MCV 93.8 MCH 29.2 MCHC 31.1 L RDW 18.6 H Plt Count 274 MPV 10.4 Sodium 148 H Potassium 3.6 Chloride 119 H Carbon Dioxide 20 L Anion Gap 9 BUN 19 Creatinine 0.80 Estim Creat Clear Calc 72 Estimated GFR > 60 Glucose 92 POC Capillary Glucose 80 90 Calcium 8.5 Total Bilirubin 1.4 H Direct Bilirubin 0.0 AST 30 ALT 14 Alkaline Phosphatase 97 Total Protein 6.3 Albumin 2.6 L Vancomycin Trough 11/16/24 11/16/24 11/16/24 05:57 11:22 12:17 WBC RBC Hgb Hct MCV MCH MCHC RDW Plt Count MPV Sodium Potassium Chloride Carbon Dioxide Anion Gap BUN Creatinine Estim Creat Clear Calc Estimated GFR Glucose POC Capillary Glucose 87 91 Calcium Total Bilirubin Direct Bilirubin AST ALT Alkaline Phosphatase Total Protein Albumin Vancomycin Trough 12.9
[2024-11-17 04:54] LABS: Hematocrit 31.6 % (42.0-52.0); Hemoglobin 9.9 g/dL (14.0-18.0); Mean Corpuscular HGB Conc 31.3 g/dl (32-36); Mean Corpuscular Hemoglobin 28.9 pg (26-34); Mean Corpuscular Volume 92.4 fl (80-100); Platelet Count Result 270 k/mm3 (150-375); Red Blood Count 3.42 M/mm3 (4.6-6.20); White Blood Count 12.2 K/mm3 (4.5-10.0)
[2024-11-17 05:08] LABS: Anion Gap 7 mmol/L (4-12); Blood Urea Nitrogen 15 mg/dL (9-20); Calcium 8.1 mg/dL (8.4-10.2); Carbon Dioxide 22 mmol/L (22-30); Chloride 115 mmol/L (98-107); Estimated CRCL calculation 86 ml/min; Estimated Glomerular Filt Rate > 60; Glucose 116 mg/dL (65-110); Potassium 3.3 mmol/L (3.4-5.0); Sodium 144 mmol/L (137-145)
[2024-11-17] MEDS: CENTRAL LINE FLUSH 10 ML IV PUSH ×3 (05:30→21:55)
--- NOTE | 2024-11-17 06:32 | PC.NURSE ---
This patient, Tip Calvo, was transferred to [[id number] ] on 11/17/24 at 0632. Personal belongings sent with patient. Report given to [Rufino FONSECA ]. Appropriate documentation sent with patient.
[2024-11-17 06:46] VITALS: BP 130/49; PULSE 93; RESP 18; TEMP 36.2; O2SAT 100
[2024-11-17] MEDS: VANCOMYCIN 1,250 MG/NS 250 ML 1,250 MG/250 ML BAG 166 MG IVPB (06:54)
[2024-11-17 08:00] VITALS: BP 130/58; PULSE 86; RESP 18; TEMP 36.4; O2SAT 100
--- NOTE | 2024-11-17 09:30 | P.PNIM_ITS ---
Progress Note: A&P Assessment and Plan (1) Shock: Code(s): R57.9 - Shock, unspecified Status: Acute Assessment and Plan: Patient initially presented with septic shock Now patient has developed new hypotension 11/08/2024. Suspect aspiration pneumonia versus UTI as patient has had Michelle for more than 2 weeks., or persistent C diff infection CT chest abdomen pelvis ABDOMEN/PELVIS: 1. Free air is seen anteriorly around the liver with minimal fluid. 2. Significant ascites in the pelvis. Drainage tube is seen in the left side of the pelvis. 3. Cholelithiasis with thickened wall of the gallbladder. Evaluation for cholecystitis advised. 4. Slightly dilated small bowel loops in the left upper abdomen which may indicate ileus follow-up advised. 5. Right renal cysts Blood, sputum culture culture are negative till now Michelle changed and UA sent procalcitonin level 8.2 Continue Dificid and meropenem Patient was given IV fluid bolus and now off of IV fluids Off 25% albumin Off Levophed infusion Blood pressure fluctuating. But more stable now 11/14/2024 worsened leukocytosis with hypotension up to 28 K. Meropenem and vancomycin added. Ultrasound with cholecystitis now status post cholecystostomy tube placement 11/15/2024. Continue meropenem. Fluid culture with Gram-positive cocci in chains on anaerobic culture. Aerobic culture no growth to date. (2) Metabolic encephalopathy: Code(s): G93.41 - Metabolic encephalopathy Status: Acute Assessment and Plan: Patient has had Altered mental status since admission which has been multifactorial Patient was evaluated by Neurology and suspected to have metabolic encephal opathy. -CT brain on presented was negative for intracranial abnormalities. Repeat CT scan 11/08 also unremarkable -MRI cannot be performed as patient was in the [place] and may have sharpnel exposure according to his daughter -10/19: Repeat CT brain did not show any acute intracranial hemorrhage or suspicious mass effect, inflammatory sinus disease. -10/19: CT facial bones showed extensive sinus disease with near complete opacification of the right maxillary sinus and dependently layering fluid in the bilateral sphenoid sinuses. Dental and periodontal disease with periapical lucency surrounding the posterior most remaining right maxillary molar His ammonia level was normal Patient had LP on 10/31 and and only abnormality seen was elevated protein viral studies are pending (3) Acute kidney injury: Code(s): N17.9 - Acute kidney failure, unspecified Status: Acute Assessment and Plan: ICU: Patient presented with Acute kidney injury which improved with IV fluids Now the creatinine has again went up I suspect this is due to hypovolemia and sepsis Fully replaced CT scan reviewed Patient was given IV fluids and creatinine improving. Hold further IV fluid Although his intake and output show that he is significantly volume overloaded. He has had FMS with diarrhea which makes I&Os inaccurate. He does have minimal edema on exam Nephrology following Monitor urine output electrolytes and creatinine CK level is normal Earlier in the course CT scan of the abdomen and pelvis did not show any hydronephrosis or stones and renal ultrasound also showed No hydronephrosis or renal calculi, no apparent, findings to suggest the presence of medical renal disease. Simple cyst within the right kidney ALEJANDRO has now resolved (4) Anemia: Code(s): D64.9 - Anemia, unspecified Status: Acute Assessment and Plan: in ICU: Patient was anemic on presentation and received 2 units of PRBC. He was ev aluate by Hematology Stool culture was negative and vitamin B12 were normal Folic acid was low and was supplement -iron panel was unremarkable He had EGD on 11/01 which showed gastritis and previous gastric surgery Hemoglobin dropped to 5.2 which could be partially dilutional versus GI loss 11/09 Transfuse 2 units PRBC Hold Lovenox and use SCDs Continue protonix Monitor hemoglobin (5) Thrombocytopenia: Code(s): D69.6 - Thrombocytopenia, unspecified Status: Acute Assessment and Plan: Thrombocytopenia that patient initially presented with has improved High platelet count at this time suggest hemoconcentration (6) Hyperkalemia: Code(s): E87.5 - Hyperkalemia Status: Acute Assessment and Plan: Hyperkalemia with ALEJANDRO Calcium gluconate, insulin and D50, bicarb received Lokelma in ICU IV fluid bolus Now resolved (7) C. difficile diarrhea: Code(s): A04.72 - Enterocolitis due to Clostridium difficile, not specified as recurrent Status: Acute Assessment and Plan: Continue Dificid. Diarrhea improved. DC IV Flagyl CT abdomen pelvis reviewed (8) Acute respiratory failure: Code(s): J96.00 - Acute respiratory failure, unspecified whether with hypoxia or hypercapnia Status: Acute Assessment and Plan: improved Plan J-tube feeding to be started today. Subjective Date/time seen: 11/17/24 09:30 Interval history: Sam has been admitted for septic shock pn 10/17 started on Levophed and admitted to ICU. T chest abdomen pelvis with no acute findings. Face CT with extensive sinus disease with near complete opacification of the right maxillary sinus and dependently layering fluid in the bilateral sphenoid sinuses. paitent was getting better. off Levophed on 10/18 Initially was on Cefepime and vancomycin but it was discontinued as there was no source on infection and neg blood cultre. on 10/19 patient had fever started on Rocephin for possible UTI vs sinusitis. C diff was positive on 10/22/24 started on Vancomycin and concluded on 11/01/24 AMS; MRI/Ct/EEG unremarkable except for sinusitis. Lumbar puncture 10/31/2024 with mildly elevated opening pressure of 23 cm water CSF with high-protein patient also had Alejandro and rhabdomyolysis which received IVF. Patient also had pancytopenia. Hematology oncology on board. Platelet improved. patient failed barium swallow . surgery team was consulted underwent Peg tube placement on 11/07/21 rapid response was called on 11/08/24 because of respiratory failure, hyp otension, lactic acidosis. Patient was intubated and admitted to ICU.Ct concerning for cholecystitis and ileus. surgery team on board recommended to monitor patient has been on Dificid and meropenem patient gradually improving was transferred out of ICU 11/13/24 11/14/24 patient has been hypotensive and tachycardic this morning. receive IVF bolus. I saw and examined patient bedside. geovanna any chest pain, SOb, abd pain,N/V. Patient had worsening leukocytosis. Also has Alejandro I lactic acid 2.5, magnesium 1.4. treatment started for severe sepsis. Will give IV fluid. Continue with meropenem. Vancomycin was added. Surgery team on board. Plan for right upper quadrant ultrasound to evaluate cholecystitis. Blood cultures pending 11/15/24 Patient was seen and examined at bedside. awake but not following/answering questions. hypotension improved .WBC improving US showed cholecystitis. plan for cholecystostomy tube placement. 11/16/2024 No overnight events. Discussed with nursing staff. Awake follow some commands. Labs reviewed. Status post cholecystostomy tube placed. 11/17/2024: No events. Patient remains afebrile. Labs reviewed. Discussed with nursing staff. Review of Systems Review of Systems: ROS unobtainable: Yes unobtainable due to mental status Exam Narrative: General: Patient is awake,, not in any distress Lungs/Chest: Trachea central Coarse BS B/L, few crackles on the left base Cardiac: RRR. Normal S1 S2. No murmurs Circulation: Pedal pulses are intact and symmetrical. Abdomen: Present bowel sounds. Midline incision is under dressing Soft. NT. ND. G-tube in place Extremities: Patient has some edema bilaterally in lower extremity : Michelle in place Neurologic: Patient is awake, follows some commands Objective Data Vital Signs Vital Signs: Vital Signs - 24 hr 11/16/24 10:00 11/16/24 11:44 11/16/24 12:00 Temperature 98.0 F Pulse Rate 84 84 83 Respiratory Rate 20 20 Blood Pressure 133/77 Pulse Oximetry 96 100 Oxygen Delivery Room Air Fraction of Inspired Oxygen 28 11/16/24 12:00 11/16/24 14:00 11/16/24 16:00 Temperature 98.1 F Pulse Rate 86 85 90 Respiratory Rate 20 Blood Pressure 132/82 Pulse Oximetry 100 Oxygen Delivery Fraction of Inspired Oxygen 11/16/24 19:34 11/16/24 20:00 11/17/24 06:46 Temperature 98.7 F 97.1 F L Pulse Rate 86 93 Respiratory Rate 18 18 Blood Pressure 134/67 130/49 L Pulse Oximetry 100 100 Oxygen Delivery Room Air Fraction of Inspired Oxygen 11/17/24 08:00 Temperature 97.6 F Pulse Rate 86 Respiratory Rate 18 Blood Pressure 130/58 L Pulse Oximetry 100 Oxygen Delivery Fraction of Inspired Oxygen Intake/Output Intake/Output: Intake & Output 11/14/24 11/15/24 11/16/24 11/17/24 23:59 23:59 23:59 23:59 Intake Total 200 1450 450 Output Total 1600 1313 3450 325 Balance -1400 137 -3000 -325 Meds/Results Medications: Active Medications Generic Name Dose Route Start Last Admin Trade Name Freq PRN Reason Stop Dose Admin Acetaminophen 650 mg 11/13/24 21:07 Acetaminophen Elixir 325 Mg/10.15 Ml Udc FEED TUBE Q6H PRN Fever >101 Allopurinol 100 mg 11/15/24 09:00 11/16/24 10:00 Allopurinol 100 Mg Tablet FEED TUBE 100 mg DAILY JHONY Administration Amlodipine Besylate 10 mg 11/14/24 10:02 11/14/24 14:58 Amlodipine Besylate 10 Mg Tablet PO Not Given DAILY JHONY Aspirin 81 mg 11/04/24 08:00 11/16/24 10:00 Aspirin 81 Mg Chewable Tablet FEED TUBE 81 mg DAILY@0800 JHONY Administration Carvedilol 12.5 mg 11/14/24 10:02 11/14/24 14:58 Carvedilol 12.5 Mg Tablet PO Not Given BID JHONY Collagenase 1 applic 11/13/24 09:00 11/16/24 21:34 Collagenase Oint 30 Gm Tube TOPICAL 1 applic Q12HR JHONY Administration Dextrose 12.5 gm 10/17/24 21:26 10/30/24 05:55 Dextrose 50% 25 Gm/50 Ml Syringe IV PUSH 12.5 gm PRN PRN Administration Hypoglycemia Protocol Enoxaparin Sodium 40 mg 11/02/24 09:00 11/09/24 08:18 Enoxaparin 40 Mg/0.4 Ml Syringe SUB-Q 40 mg DAILY JHONY Administration Fidaxomicin 200 mg 11/08/24 09:00 11/16/24 21:32 Fidaxomicin 200 Mg Tablet FEED TUBE 11/18/24 08:59 200 mg Q12HR JHONY Administration Folic Acid 1 mg 10/24/24 09:00 11/16/24 09:58 Folic Acid 1 Mg Tablet FEED TUBE 1 mg QAM JHONY Administration Glucagon 1 mg 10/17/24 21:26 Glucagon For Inj 1 Mg Vial IM PRN PRN Hypoglycemia Protocol Glucose 15 gm 11/13/24 21:07 Glucose Oral Gel 15 Gm Of Glucse In 37.5 Gm Tube FEED TUBE PRN PRN Hypoglycemia Protocol Dextrose 1,000 mls @ 100 mls/hr 10/17/24 21:26 Dextrose 5% 1,000 Ml IVPB PRN PRN Hypoglycemia Protocol Meropenem 1 gm in 100 mls @ 200 mls/hr 11/08/24 11:30 11/16/24 22:03 IVPB Infused Q12HR JHONY Infusion Vancomycin HCl 1,250 mg in 250 mls @ 166.667 mls/hr 11/16/24 13:00 11/17/24 06:54 Vancomycin 1,250 Mg/Ns 250 Ml IVPB 166 mls/hr Q18H JHONY Administration Insulin Aspart 3 - 6 units 11/08/24 12:00 11/17/24 05:20 Insulin Aspart (*Bkc) 100 Units/Ml SUB-Q Not Given Q6HR [facility] Protocol Miscellaneous Information 1 each 11/17/24 00:01 Please Renew _Pantoprazole. Per [employer] Procedure, It Will Discontinue If Not Renewed XX 12/17/24 00:00 CLARIFY [facility] Miscellaneous Information 1 each 11/17/24 00:01 Fidaxomicin Needs To Be Renewed Or It Will Automatically Discontinue. XX 12/17/24 00:00 CLARIFY JHONY Pantoprazole Sodium 40 mg 10/18/24 21:00 11/16/24 21:33 Pantoprazole Sodium Iv 40 Mg Vial IV PUSH 40 mg Q12HR JHONY Administration Rosuvastatin Calcium 10 mg 11/04/24 09:00 11/16/24 09:58 Rosuvastatin 10 Mg Tablet FEED TUBE 10 mg DAILY JHONY Administration Saccharomyces Boulardii 250 mg 11/14/24 09:00 11/16/24 09:58 Saccharomyces Boulardii 250 Mg Capsule FEED TUBE 250 mg DAILY JHONY Administration Sodium Chloride 10 ml 11/08/24 14:00 11/17/24 05:30 Central Line Flush IV PUSH 10 ml Q8HR JHONY Administration Sodium Chloride 10 ml 11/08/24 08:15 Central Line Flush IV PUSH PRN PRN with TPN bag changes Sodium Chloride 20 ml 11/08/24 08:15 11/11/24 06:50 Central Line Flush IV PUSH 20 ml PRN PRN Administration after blood draws Thiamine HCl 100 mg 10/24/24 09:00 11/16/24 09:58 Thiamine Hcl 100 Mg Tablet FEED TUBE 100 mg QAM JHONY Administration Radiology Results: ITS Impressions Face CT 10/19/24 09:39 IMPRESSION: 1. Extensive sinus disease with near complete opacification of the right maxillary sinus and dependently layering fluid in the bilateral sphenoid sinuses. Correlate clinically for acute sinusitis. 2. Dental and periodontal disease with periapical lucency surrounding the posterior most remaining right maxillary molar. Renal Ultrasound 10/19/24 09:48 IMPRESSION: No hydronephrosis or renal calculi. No parenchymal findings to suggest the presence of medical renal disease. Simple cysts within the right kidney, for which no further follow-up is needed. Brain MRI 10/24/24 14:22 IMPRESSION: 1. Age-related changes the brain. No acute intracranial process. 2. Prominent sinus disease with fluid nearly filling the right maxillary sinus and layering dependently in the bilateral sphenoid sinuses. Correlate clinically for acute sinusitis. Lumbar Puncture Fluoroscopy 10/31/24 17:34 IMPRESSION: 1. Successful fluoro-guided lumbar puncture with mildly elevated opening pressure of 23 cm water. Modified Barium Swallow 11/06/24 10:05 IMPRESSION: Nondiagnostic study as all contents either leaked or were actively expelled from the mouth. No swallows were able to be evaluated. Please correlate with speech pathologist findings and specific feeding recommendations. Abdomen X-Ray 11/08/24 07:55 Impression: NG tube in satisfactory position. Probable small bowel obstruction. Chest/Abdomen/Pelvis CT 11/08/24 09:59 IMPRESSION: CHEST: 1. Right basilar atelectasis versus pneumonia with pleural effusion. 2. No other acute cardiopulmonary pathology. ABDOMEN/PELVIS: 1. Free air is seen anteriorly around the liver with minimal fluid. 2. Significant ascites in the pelvis. Drainage tube is seen in the left side of the pelvis. 3. Cholelithiasis with thickened wall of the gallbladder. Evaluation for cholecystitis advised. 4. Slightly dilated small bowel loops in the left upper abdomen which may indicate ileus follow-up advised. 5. Right renal cysts. Upper GI Series 11/09/24 13:49 IMPRESSION: 1. Left lower quadrant jejunostomy tube in expected position with injected contrast opacifying the normal-appearing jejunum with no extraluminal leakage of contrast. Head CT 11/14/24 05:17 Impression: No intracranial hemorrhage, mass, or acute infarct. Atrophy and chronic white matter changes, as above. Chest X-Ray 11/14/24 05:55 Impression: Hazy left basilar airspace disease could reflect left lower lobe pneumonia. NG tube and right-sided PICC line in place. Abdomen Ultrasound 11/14/24 15:13 IMPRESSION: Highly suggestive cholecystitis with cholelithiasis and gallbladder sludge. Clinical correlation advised. Minimal ascites. Minimal right pleural effusion. Cholecystostomy 11/15/24 16:04 IMPRESSION: 1. Successful ultrasound-guided cholecystostomy tube placement. 2. 13 mL bile was sent for aerobic, anaerobic, and fungal cultures. 3. The catheter will be managed by Dr. Ortiz. A catheter cholangiogram may be performed not less than 48 hours after tube placement if clinically indicated to assess cystic duct patency. If cholecystectomy is not eventually performed and the infectious episode has resolved, the tube may be removed over a guidewire, preferably not less than 3 weeks after placement to allow time for a mature catheter tract to form to prevent bile leakage and peritonitis. Labs Labs: Laboratory Results - last 24 hr 11/16/24 11/16/24 11/16/24 11:22 12:17 18:23 WBC RBC Hgb Hct MCV MCH MCHC RDW Plt Count MPV Sodium Potassium Chloride Carbon Dioxide Anion Gap BUN Creatinine Estim Creat Clear Calc Estimated GFR Glucose POC Capillary Glucose 91 85 Calcium Vancomycin Trough 12.9 11/17/24 11/17/24 00:18 04:44 WBC 12.2 H RBC 3.42 L Hgb 9.9 L Hct 31.6 L MCV 92.4 MCH 28.9 MCHC 31.3 L RDW 18.4 H Plt Count 270 MPV 10.6 H Sodium 144 Potassium 3.3 L Chloride 115 H Carbon Dioxide 22 Anion Gap 7 BUN 15 Creatinine 0.66 L Estim Creat Clear Calc 86 Estimated GFR > 60 Glucose 116 H POC Capillary Glucose 103 Calcium 8.1 L Vancomycin Trough
[2024-11-17] MEDS: PANTOPRAZOLE SODIUM IV 40 MG VIAL IV PUSH (10:24)
[2024-11-17] MEDS: POTASSIUM CHLORIDE 20 MEQ PACKET (FOR LIQUID) 40 MEQ FEED TUBE (10:24)
[2024-11-17] MEDS: ROSUVASTATIN 10 MG TABLET FEED TUBE (10:24)
[2024-11-17] MEDS: MEROPENEM 1 GM/NS 100 ML 1 GM/100 ML BAG IVPB ×2 (10:25→21:53)
[2024-11-17] MEDS: ASPIRIN 81 MG CHEWABLE TABLET FEED TUBE (10:25)
[2024-11-17] MEDS: FOLIC ACID 1 MG TABLET FEED TUBE (10:25)
[2024-11-17] MEDS: SACCHAROMYCES BOULARDII 250 MG CAPSULE FEED TUBE (10:25)
[2024-11-17] MEDS: THIAMINE HCL 100 MG TABLET FEED TUBE (10:25)
[2024-11-17] MEDS: FIDAXOMICIN 200 MG TABLET FEED TUBE ×2 (10:25→21:53)
[2024-11-17] MEDS: COLLAGENASE OINT 30 GM TUBE 1 APPLIC TOPICAL ×2 (10:26→21:54)
[2024-11-17 16:00] VITALS: BP 128/60; PULSE 88; RESP 18; TEMP 36.4; O2SAT 100
[2024-11-17 20:31] VITALS: BP 130/77; PULSE 102; RESP 22; TEMP 37.4; O2SAT 98
[2024-11-18] MEDS: VANCOMYCIN 1,250 MG/NS 250 ML 1,250 MG/250 ML BAG 166.67 MG IVPB (02:25)
[2024-11-18 06:17] LABS: Hematocrit 32.0 % (42.0-52.0); Hemoglobin 10.1 g/dL (14.0-18.0); Immature Granulocyte Percent A 0.5 % (0-0.5); Lymphocytes Absolute Auto 3.02 K/mm3 (0.9-3.2); Mean Corpuscular HGB Conc 31.6 g/dl (32-36); Mean Corpuscular Hemoglobin 29.3 pg (26-34); Mean Corpuscular Volume 92.8 fl (80-100); Nucleated Red Blood Cells Absolute Auto 0.000 K/mm3 (0.0-0.012); Nucleated Red Blood Cells Perc 0.0 % (0.0-0.2); Platelet Count Result 289 k/mm3 (150-375); Red Blood Count 3.45 M/mm3 (4.6-6.20); White Blood Count 15.3 K/mm3 (4.5-10.0)
[2024-11-18 06:32] VITALS: BP 136/76; PULSE 99; RESP 22; TEMP 37.6; O2SAT 100
[2024-11-18 07:22] LABS: Alanine Aminotransferase 16 U/L (6-50); Albumin Level 2.7 g/dL (3.5-5.1); Alkaline Phosphatase 115 U/L (38-126); Anion Gap 8 mmol/L (4-12); Aspartate Amino Transferase 41 U/L (17-59); Bilirubin,Total 1.2 mg/dL (0.2-1.3); Blood Urea Nitrogen 13 mg/dL (9-20); Calcium 8.4 mg/dL (8.4-10.2); Carbon Dioxide 21 mmol/L (22-30); Chloride 116 mmol/L (98-107); Estimated CRCL calculation 77 ml/min; Estimated Glomerular Filt Rate > 60; Glucose 109 mg/dL (65-110); Magnesium 1.4 mg/dL (1.6-2.3); Potassium 3.7 mmol/L (3.4-5.0); Sodium 145 mmol/L (137-145); Total Protein 6.7 g/dL (6.3-8.2)
[2024-11-18 08:00] VITALS: BP 135/77; PULSE 99; RESP 18; TEMP 38.3; O2SAT 100
[2024-11-18] MEDS: THIAMINE HCL 100 MG TABLET FEED TUBE (10:45)
[2024-11-18] MEDS: SACCHAROMYCES BOULARDII 250 MG CAPSULE FEED TUBE (10:45)
[2024-11-18] MEDS: ASPIRIN 81 MG CHEWABLE TABLET FEED TUBE (10:45)
[2024-11-18] MEDS: ROSUVASTATIN 10 MG TABLET FEED TUBE (10:45)
[2024-11-18] MEDS: CENTRAL LINE FLUSH 10 ML IV PUSH ×3 (10:46→20:43)
[2024-11-18] MEDS: MEROPENEM 1 GM/NS 100 ML 1 GM/100 ML BAG IVPB ×2 (10:47→20:43)
[2024-11-18] MEDS: COLLAGENASE OINT 30 GM TUBE 1 APPLIC TOPICAL ×2 (10:47→20:44)
[2024-11-18] MEDS: FOLIC ACID 1 MG TABLET FEED TUBE (11:03)
--- NOTE | 2024-11-18 13:19 | P.PNIM_ITS ---
Progress Note: A&P Assessment and Plan (1) Shock: Code(s): R57.9 - Shock, unspecified Status: Acute Assessment and Plan: Patient initially presented with septic shock Now patient has developed new hypotension 11/08/2024. Suspect aspiration pneumonia versus UTI as patient has had Michelle for more than 2 weeks., or persistent C diff infection CT chest abdomen pelvis ABDOMEN/PELVIS: 1. Free air is seen anteriorly around the liver with minimal fluid. 2. Significant ascites in the pelvis. Drainage tube is seen in the left side of the pelvis. 3. Cholelithiasis with thickened wall of the gallbladder. Evaluation for cholecystitis advised. 4. Slightly dilated small bowel loops in the left upper abdomen which may indicate ileus follow-up advised. 5. Right renal cysts Blood, sputum culture culture are negative till now Michelle changed and UA sent procalcitonin level 8.2 Continue Dificid and meropenem Patient was given IV fluid bolus and now off of IV fluids Off 25% albumin Off Levophed infusion Blood pressure fluctuating. But more stable now 11/14/2024 worsened leukocytosis with hypotension up to 28 K. Meropenem and vancomycin added. Ultrasound with cholecystitis now status post cholecystostomy tube placement 11/15/2024. Continue meropenem. Fluid culture with Gram-positive cocci in chains on anaerobic culture. Aerobic culture no growth to date. (2) Metabolic encephalopathy: Code(s): G93.41 - Metabolic encephalopathy Status: Acute Assessment and Plan: Patient has had Altered mental status since admission which has been multifactorial Patient was evaluated by Neurology and suspected to have metabolic encephal opathy. -CT brain on presented was negative for intracranial abnormalities. Repeat CT scan 11/08 also unremarkable -MRI cannot be performed as patient was in the [place] and may have sharpnel exposure according to his daughter -10/19: Repeat CT brain did not show any acute intracranial hemorrhage or suspicious mass effect, inflammatory sinus disease. -10/19: CT facial bones showed extensive sinus disease with near complete opacification of the right maxillary sinus and dependently layering fluid in the bilateral sphenoid sinuses. Dental and periodontal disease with periapical lucency surrounding the posterior most remaining right maxillary molar His ammonia level was normal Patient had LP on 10/31 and and only abnormality seen was elevated protein viral studies are pending (3) Acute kidney injury: Code(s): N17.9 - Acute kidney failure, unspecified Status: Acute Assessment and Plan: ICU: Patient presented with Acute kidney injury which improved with IV fluids Now the creatinine has again went up I suspect this is due to hypovolemia and sepsis Fully replaced CT scan reviewed Patient was given IV fluids and creatinine improving. Hold further IV fluid Although his intake and output show that he is significantly volume overloaded. He has had FMS with diarrhea which makes I&Os inaccurate. He does have minimal edema on exam Nephrology following Monitor urine output electrolytes and creatinine CK level is normal Earlier in the course CT scan of the abdomen and pelvis did not show any hydronephrosis or stones and renal ultrasound also showed No hydronephrosis or renal calculi, no apparent, findings to suggest the presence of medical renal disease. Simple cyst within the right kidney ALEJANDRO has now resolved (4) Anemia: Code(s): D64.9 - Anemia, unspecified Status: Acute Assessment and Plan: in ICU: Patient was anemic on presentation and received 2 units of PRBC. He was ev aluate by Hematology Stool culture was negative and vitamin B12 were normal Folic acid was low and was supplement -iron panel was unremarkable He had EGD on 11/01 which showed gastritis and previous gastric surgery Hemoglobin dropped to 5.2 which could be partially dilutional versus GI loss 11/09 Transfuse 2 units PRBC Hold Lovenox and use SCDs Continue protonix Monitor hemoglobin (5) Thrombocytopenia: Code(s): D69.6 - Thrombocytopenia, unspecified Status: Acute Assessment and Plan: Thrombocytopenia that patient initially presented with has improved High platelet count at this time suggest hemoconcentration (6) Hyperkalemia: Code(s): E87.5 - Hyperkalemia Status: Acute Assessment and Plan: Hyperkalemia with ALEJANDRO Calcium gluconate, insulin and D50, bicarb received Lokelma in ICU IV fluid bolus Now resolved (7) C. difficile diarrhea: Code(s): A04.72 - Enterocolitis due to Clostridium difficile, not specified as recurrent Status: Acute Assessment and Plan: Continue Dificid. Diarrhea improved. DC IV Flagyl CT abdomen pelvis reviewed (8) Acute respiratory failure: Code(s): J96.00 - Acute respiratory failure, unspecified whether with hypoxia or hypercapnia Status: Acute Assessment and Plan: improved Plan J-tube feeding started. Advance as tolerated Subjective Date/time seen: 11/18/24 13:19 Interval history: Sam has been admitted for septic shock pn 10/17 started on Levophed and admitted to ICU. T chest abdomen pelvis with no acute findings. Face CT with extensive sinus disease with near complete opacification of the right maxillary sinus and dependently layering fluid in the bilateral sphenoid sinuses. paitent was getting better. off Levophed on 10/18 Initially was on Cefepime and vancomycin but it was discontinued as there was no source on infection and neg blood cultre. on 10/19 patient had fever started on Rocephin for possible UTI vs sinusitis. C diff was positive on 10/22/24 started on Vancomycin and concluded on 11/01/24 AMS; MRI/Ct/EEG unremarkable except for sinusitis. Lumbar puncture 10/31/2024 with mildly elevated opening pressure of 23 cm water CSF with high-protein patient also had Alejandro and rhabdomyolysis which received IVF. Patient also had pancytopenia. Hematology oncology on board. Platelet improved. patient failed barium swallow . surgery team was consulted underwent Peg tube placement on 11/07/21 rapid response was called on 11/08/24 because of respiratory failure, hypotension, lactic acidosis. Patient was intubated and admitted to ICU.Ct concerning for cholecystitis and ileus. surgery team on board recommended to monitor patient has been on Dificid and meropenem patient gradually improving was transferred out of ICU 11/13/24 11/14/24 patient has been hypotensive and tachycardic this morning. receive IVF bolus. I saw and examined patient bedside. geovanna any chest pain, SOb, abd pain,N/V. Patient had worsening leukocytosis. Also has Alejandro I lactic acid 2.5, magnesium 1.4. treatment started for severe sepsis. Will give IV fluid. Continue with meropenem. Vancomycin was added. Surgery team on board. Plan for right upper quadrant ultrasound to evaluate cholecystitis. Blood cultures pending 11/15/24 Patient was seen and examined at bedside. awake but not following/answering questions. hypotension improved .WBC improving US showed cholecystitis. plan for cholecystostomy tube placement. 11/16/2024 No overnight events. Discussed with nursing staff. Awake follow some commands. Labs reviewed. Status post cholecystostomy tube placed. 11/17/2024: No events. Patient remains afebrile. Labs reviewed. Discussed with nursing staff. 11/18/2024: No overnight events. J-tube feeding has been started. At 20 cc an hour. NG in place. Review of Systems Review of Systems: ROS unobtainable: Yes unobtainable due to mental status Exam Narrative: General: Patient is awake,, not in any distress Lungs/Chest: Trachea central Coarse BS B/L, few crackles on the left base Cardiac: RRR. Normal S1 S2. No murmurs Circulation: Pedal pulses are intact and symmetrical. Abdomen: Present bowel sounds. Midline incision is under dressing Soft. NT. ND. J tube in place Extremities: Patient has some edema bilaterally in lower extremity : Michelle in place Neurologic: Patient is awake, follows some commands Objective Data Vital Signs Vital Signs: Vital Signs - 24 hr 11/17/24 16:00 11/17/24 20:00 11/17/24 20:31 Temperature 97.6 F 99.4 F Pulse Rate 88 102 H Respiratory Rate 18 22 H Blood Pressure 128/60 130/77 Pulse Oximetry 100 98 Oxygen Delivery Room Air 11/18/24 06:32 11/18/24 08:00 11/18/24 08:00 Temperature 99.6 F 100.9 F H Pulse Rate 99 99 Respiratory Rate 22 H 18 Blood Pressure 136/76 135/77 Pulse Oximetry 100 100 Oxygen Delivery Room Air Intake/Output Intake/Output: Intake & Output 11/15/24 11/16/24 11/17/24 11/18/24 23:59 23:59 23:59 23:59 Intake Total 1450 683 599 6812 Output Total 1313 3450 925 500 Balance 137 3000 -813 764 Meds/Results Medications: Active Medications Generic Name Dose Route Start Last Admin Trade Name Freq PRN Reason Stop Dose Admin Acetaminophen 650 mg 11/13/24 21:07 Acetaminophen Elixir 325 Mg/10.15 Ml Udc FEED TUBE Q6H PRN Fever >101 Allopurinol 100 mg 11/15/24 09:00 11/18/24 10:45 Allopurinol 100 Mg Tablet FEED TUBE 100 mg DAILY JHONY Administration Amlodipine Besylate 10 mg 11/14/24 10:02 11/14/24 14:58 Amlodipine Besylate 10 Mg Tablet PO Not Given DAILY JHONY Aspirin 81 mg 11/04/24 08:00 11/18/24 10:45 Aspirin 81 Mg Chewable Tablet FEED TUBE 81 mg DAILY@0800 JHONY Administration Carvedilol 12.5 mg 11/14/24 10:02 11/14/24 14:58 Carvedilol 12.5 Mg Tablet PO Not Given BID JHONY Collagenase 1 applic 11/13/24 09:00 11/18/24 10:47 Collagenase Oint 30 Gm Tube TOPICAL 1 applic Q12HR JHONY Administration Dextrose 12.5 gm 10/17/24 21:26 10/30/24 05:55 Dextrose 50% 25 Gm/50 Ml Syringe IV PUSH 12.5 gm PRN PRN Administration Hypoglycemia Protocol Enoxaparin Sodium 40 mg 11/02/24 09:00 11/09/24 08:18 Enoxaparin 40 Mg/0.4 Ml Syringe SUB-Q 40 mg DAILY JHONY Administration Folic Acid 1 mg 10/24/24 09:00 11/18/24 11:03 Folic Acid 1 Mg Tablet FEED TUBE 1 mg QAM JHONY Administration Glucagon 1 mg 10/17/24 21:26 Glucagon For Inj 1 Mg Vial IM PRN PRN Hypoglycemia Protocol Glucose 15 gm 11/13/24 21:07 Glucose Oral Gel 15 Gm Of Glucse In 37.5 Gm Tube FEED TUBE PRN PRN Hypoglycemia Protocol Dextrose 1,000 mls @ 100 mls/hr 10/17/24 21:26 Dextrose 5% 1,000 Ml IVPB PRN PRN Hypoglycemia Protocol Vancomycin HCl 1,250 mg in 250 mls @ 166.667 mls/hr 11/18/24 02:00 11/18/24 03:55 Vancomycin 1,250 Mg/Ns 250 Ml IVPB Infused Q12H JHONY Infusion Insulin Aspart 3 - 6 units 11/08/24 12:00 11/18/24 12:41 Insulin Aspart (*Bkc) 100 Units/Ml SUB-Q Not Given Q6HR [facility] Protocol Miscellaneous Information 1 each 11/17/24 00:01 Please Renew _Pantoprazole. Per [employer] Procedure, It Will Discontinue If Not Renewed XX 12/17/24 00:00 CLARIFY [facility] Miscellaneous Information 1 each 11/17/24 00:01 Fidaxomicin Needs To Be Renewed Or It Will Automatically Discontinue. XX 12/17/24 00:00 CLARIFY [facility] Miscellaneous Information 1 each 11/17/24 00:01 Meropenem Needs To Be Renewed Or It Will Automatically Discontinue 11/18/24. XX 12/17/24 00:00 CLARIFY JHONY Rosuvastatin Calcium 10 mg 11/04/24 09:00 11/18/24 10:45 Rosuvastatin 10 Mg Tablet FEED TUBE 10 mg DAILY JHONY Administration Saccharomyces Boulardii 250 mg 11/14/24 09:00 11/18/24 10:45 Saccharomyces Boulardii 250 Mg Capsule FEED TUBE 250 mg DAILY JHONY Administration Sodium Chloride 10 ml 11/08/24 14:00 11/18/24 10:46 Central Line Flush IV PUSH 10 ml Q8HR JHONY Administration Sodium Chloride 10 ml 11/08/24 08:15 Central Line Flush IV PUSH PRN PRN with TPN bag changes Sodium Chloride 20 ml 11/08/24 08:15 11/11/24 06:50 Central Line Flush IV PUSH 20 ml PRN PRN Administration after blood draws Thiamine HCl 100 mg 10/24/24 09:00 11/18/24 10:45 Thiamine Hcl 100 Mg Tablet FEED TUBE 100 mg QAM JHONY Administration Radiology Results: ITS Impressions Face CT 10/19/24 09:39 IMPRESSION: 1. Extensive sinus disease with near complete opacification of the right maxillary sinus and dependently layering fluid in the bilateral sphenoid sinuses. Correlate clinically for acute sinusitis. 2. Dental and periodontal disease with periapical lucency surrounding the posterior most remaining right maxillary molar. Renal Ultrasound 10/19/24 09:48 IMPRESSION: No hydronephrosis or renal calculi. No parenchymal findings to suggest the presence of medical renal disease. Simple cysts within the right kidney, for which no further follow-up is needed. Brain MRI 10/24/24 14:22 IMPRESSION: 1. Age-related changes the brain. No acute intracranial process. 2. Prominent sinus disease with fluid nearly filling the right maxillary sinus and layering dependently in the bilateral sphenoid sinuses. Correlate clinically for acute sinusitis. Lumbar Puncture Fluoroscopy 10/31/24 17:34 IMPRESSION: 1. Successful fluoro-guided lumbar puncture with mildly elevated opening pressu re of 23 cm water. Modified Barium Swallow 11/06/24 10:05 IMPRESSION: Nondiagnostic study as all contents either leaked or were actively expelled from the mouth. No swallows were able to be evaluated. Please correlate with speech pathologist findings and specific feeding recommendations. Abdomen X-Ray 11/08/24 07:55 Impression: NG tube in satisfactory position. Probable small bowel obstruction. Chest/Abdomen/Pelvis CT 11/08/24 09:59 IMPRESSION: CHEST: 1. Right basilar atelectasis versus pneumonia with pleural effusion. 2. No other acute cardiopulmonary pathology. ABDOMEN/PELVIS: 1. Free air is seen anteriorly around the liver with minimal fluid. 2. Significant ascites in the pelvis. Drainage tube is seen in the left side of the pelvis. 3. Cholelithiasis with thickened wall of the gallbladder. Evaluation for cholecystitis advised. 4. Slightly dilated small bowel loops in the left upper abdomen which may indicate ileus follow-up advised. 5. Right renal cysts. Upper GI Series 11/09/24 13:49 IMPRESSION: 1. Left lower quadrant jejunostomy tube in expected position with injected contrast opacifying the normal-appearing jejunum with no extraluminal leakage of contrast. Head CT 11/14/24 05:17 Impression: No intracranial hemorrhage, mass, or acute infarct. Atrophy and chronic white matter changes, as above. Chest X-Ray 11/14/24 05:55 Impression: Hazy left basilar airspace disease could reflect left lower lobe pneumonia. NG tube and right-sided PICC line in place. Abdomen Ultrasound 11/14/24 15:13 IMPRESSION: Highly suggestive cholecystitis with cholelithiasis and gallbladder sludge. Clinical correlation advised. Minimal ascites. Minimal right pleural effusion. Cholecystostomy 11/15/24 16:04 IMPRESSION: 1. Successful ultrasound-guided cholecystostomy tube placement. 2. 13 mL bile was sent for aerobic, anaerobic, and fungal cultures. 3. The catheter will be managed by Dr. Ortiz. A catheter cholangiogram may be performed not less than 48 hours after tube placement if clinically indicated to assess cystic duct patency. If cholecystectomy is not eventually performed and the infectious episode has resolved, the tube may be removed over a guidewire, preferably not less than 3 weeks after placement to allow time for a mature catheter tract to form to prevent bile leakage and peritonitis. Labs Labs: Laboratory Results - last 24 hr 11/18/24 11/18/24 11/18/24 00:17 00:48 06:07 WBC 15.3 H RBC 3.45 L Hgb 10.1 L Hct 32.0 L MCV 92.8 MCH 29.3 MCHC 31.6 L RDW 18.4 H Plt Count 289 MPV 11.2 H Immature Gran % (Auto) 0.5 Neut % (Auto) 64.8 Lymph % (Auto) 19.8 [place] % (Auto) 10.7 H Eos % (Auto) 3.7 Baso % (Auto) 0.5 Lymph # (Auto) 3.02 [place] # (Auto) 1.6 H Eos # (Auto) 0.6 H Baso # (Auto) 0.1 Abs Immat Gran (auto) 0.07 H Absolute Neuts (auto) 9.9 H Absolute Nucleated RBC 0.000 Nucleated RBC % 0.0 Sodium 145 Potassium 3.7 Chloride 116 H Carbon Dioxide 21 L Anion Gap 8 BUN 13 Creatinine 0.75 Estim Creat Clear Calc 77 Estimated GFR > 60 Glucose 109 POC Capillary Glucose 103 Calcium 8.4 Magnesium 1.4 L Total Bilirubin 1.2 AST 41 ALT 16 Alkaline Phosphatase 115 Total Protein 6.7 Albumin 2.7 L Vancomycin Trough 11.0 11/18/24 11/18/24 11/18/24 07:05 08:28 12:43 WBC RBC Hgb Hct MCV MCH MCHC RDW Plt Count MPV Immature Gran % (Auto) Neut % (Auto) Lymph % (Auto) [place] % (Auto) Eos % (Auto) Baso % (Auto) Lymph # (Auto) [place] # (Auto) Eos # (Auto) Baso # (Auto) Abs Immat Gran (auto) Absolute Neuts (auto) Absolute Nucleated RBC Nucleated RBC % Sodium Potassium Chloride Carbon Dioxide Anion Gap BUN Creatinine Estim Creat Clear Calc Estimated GFR Glucose POC Capillary Glucose 100 104 109 H Calcium Magnesium Total Bilirubin AST ALT Alkaline Phosphatase Total Protein Albumin Vancomycin Trough
[2024-11-18] MEDS: MAGNESIUM SULF 2 GM/WATER 50ML 2 GM/50 ML BAG IVPB (14:07)
[2024-11-18] MEDS: VANCOMYCIN 1,250 MG/NS 250 ML 1,250 MG/250 ML BAG 166 MG IVPB (14:12)
[2024-11-18 16:00] VITALS: BP 132/82; PULSE 96; RESP 18; TEMP 38.2; O2SAT 100
[2024-11-18 17:34] VITALS: TEMP 38.2
[2024-11-18] MEDS: ACETAMINOPHEN ELIXIR 325 MG/10.15 ML UDC 650 MG FEED TUBE (17:34)
[2024-11-18 23:27] VITALS: BP 116/70; PULSE 94; RESP 16; TEMP 37.2; O2SAT 99
[2024-11-19] VITALS (7 sets, daily range): BP systolic 110–135; BP diastolic 67–80; PULSE 93–98; RESP 14–24; TEMP 37.4–38.2; O2SAT 98–100
[2024-11-19 00:12] LABS: Add Urine Microscopic? YES; Appearance Urine Turbid (Clear); Glucose Urine UA Negative (Negative); Leukocyte Esterase Ur Negative LEU/UL (Negative); Need Manual Microscopic Reviewed; Nitrate Urine Negative (Negative); Non Pathogenic Casts >20; Specific Grav Ur 1.029 (1.001-1.035)
[2024-11-19] MEDS: VANCOMYCIN 1,250 MG/NS 250 ML 1,250 MG/250 ML BAG 166 MG IVPB (03:00)
[2024-11-19] MEDS: ACETAMINOPHEN ELIXIR 325 MG/10.15 ML UDC 650 MG FEED TUBE (03:09)
[2024-11-19 05:34] LABS: Hematocrit 30.2 % (42.0-52.0); Hemoglobin 9.5 g/dL (14.0-18.0); Immature Granulocyte Percent A 0.7 % (0-0.5); Lymphocytes Absolute Auto 2.37 K/mm3 (0.9-3.2); Mean Corpuscular HGB Conc 31.5 g/dl (32-36); Mean Corpuscular Hemoglobin 29.3 pg (26-34); Mean Corpuscular Volume 93.2 fl (80-100); Nucleated Red Blood Cells Absolute Auto 0.000 K/mm3 (0.0-0.012); Nucleated Red Blood Cells Perc 0.0 % (0.0-0.2); Platelet Count Result 280 k/mm3 (150-375); Red Blood Count 3.24 M/mm3 (4.6-6.20); White Blood Count 13.8 K/mm3 (4.5-10.0)
[2024-11-19 06:08] LABS: Alanine Aminotransferase 19 U/L (6-50); Albumin Level 2.8 g/dL (3.5-5.1); Alkaline Phosphatase 122 U/L (38-126); Anion Gap 8 mmol/L (4-12); Aspartate Amino Transferase 36 U/L (17-59); Bilirubin,Total 1.0 mg/dL (0.2-1.3); Blood Urea Nitrogen 15 mg/dL (9-20); Calcium 8.5 mg/dL (8.4-10.2); Carbon Dioxide 22 mmol/L (22-30); Chloride 115 mmol/L (98-107); Estimated CRCL calculation 78 ml/min; Estimated Glomerular Filt Rate > 60; Glucose 116 mg/dL (65-110); Magnesium 1.7 mg/dL (1.6-2.3); Potassium 3.6 mmol/L (3.4-5.0); Sodium 145 mmol/L (137-145); Total Protein 6.9 g/dL (6.3-8.2)
[2024-11-19] MEDS: CENTRAL LINE FLUSH 10 ML IV PUSH ×3 (07:32→21:23)
--- NOTE | 2024-11-19 09:38 | PM.IMPN ---
Progress Note: A&P Assessment and Plan (1) Shock: Code(s): R57.9 - Shock, unspecified Status: Acute Assessment and Plan: Patient initially presented with septic shock Now patient has developed new hypotension 11/08/2024. Suspect aspiration pneumonia versus UTI as patient has had Michelle for more than 2 weeks., or persistent C diff infection CT chest abdomen pelvis ABDOMEN/PELVIS: 1. Free air is seen anteriorly around the liver with minimal fluid. 2. Significant ascites in the pelvis. Drainage tube is seen in the left side of the pelvis. 3. Cholelithiasis with thickened wall of the gallbladder. Evaluation for cholecystitis advised. 4. Slightly dilated small bowel loops in the left upper abdomen which may indicate ileus follow-up advised. 5. Right renal cysts Blood, sputum culture culture are negative till now Michelle changed and UA sent procalcitonin level 8.2 Continue Dificid and meropenem Patient was given IV fluid bolus and now off of IV fluids Off 25% albumin Off Levophed infusion Blood pressure fluctuating. But more stable now 11/14/2024 worsened leukocytosis with hypotension up to 28 K. Meropenem and vancomycin added. Ultrasound with cholecystitis now status post cholecystostomy tube placement 11/15/2024. Continue meropenem. Fluid culture with Gram-positive cocci in chains on anaerobic culture. Aerobic culture no growth to date. Will continue meropenem 11/19/2024: Intermittent fever starts. Chest x-ray with clear lungs right-sided PICC line in place. Urinalysis negative. Blood culture x2 obtained. Vancomycin 11/14 to 11/19 will stop Continue meropenem 11/08-continued (2) Metabolic encephalopathy: Code(s): G93.41 - Metabolic encephalopathy Status: Acute Assessment and Plan: Patient has had Altered mental status since admission which has been multifactorial Patient was evaluated by Neurology and suspected to have metabolic encephalopathy. -CT brain on presented was negative for intracranial abnormalities. Repeat CT scan 11/08 also unremarkable -MRI cannot be performed as patient was in the [place] and may have sharpnel exposure according to his daughter -10/19: Repeat CT brain did not show any acute intracranial hemorrhage or suspicious mass effect, inflammatory sinus disease. -10/19: CT facial bones showed extensive sinus disease with near complete opacification of the right maxillary sinus and dependently layering fluid in the bilateral sphenoid sinuses. Dental and periodontal disease with periapical lucency surrounding the posterior most remaining right maxillary molar His ammonia level was normal Patient had LP on 10/31 and and only abnormality seen was elevated protein viral studies are pending (3) Acute kidney injury: Code(s): N17.9 - Acute kidney failure, unspecified Status: Acute Assessment and Plan: ICU: Patient presented with Acute kidney injury which improved with IV fluids Now the creatinine has again went up I suspect this is due to hypovolemia and sepsis Fully replaced CT scan reviewed Patient was given IV fluids and creatinine improving. Hold further IV fluid Although his intake and output show that he is significantly volume overloaded. He has had FMS with diarrhea which makes I&Os inaccurate. He does have minimal edema on exam Nephrology following Monitor urine output electrolytes and creatinine CK level is normal Earlier in the course CT scan of the abdomen and pelvis did not show any hydronephrosis or stones and renal ultrasound also showed No hydronephrosis or renal calculi, no apparent, findings to suggest the presence of medical renal disease. Simple cyst within the right kidney ALEJANDRO has now resolved (4) Anemia: Code(s): D64.9 - Anemia, unspecified Status: Acute Assessment and Plan: in ICU: Patient was anemic on presentation and received 2 units of PRBC. He was evaluate by Hematology Stool culture was negative and vitamin B12 were normal Folic acid was low and was supplement -iron panel was unremarkable He had EGD on 11/01 which showed gastritis and previous gastric surgery Hemoglobin dropped to 5.2 which could be partially dilutional versus GI loss 11/09 Transfuse 2 units PRBC Hold Lovenox and use SCDs Continue protonix Monitor hemoglobin (5) Thrombocytopenia: Code(s): D69.6 - Thrombocytopenia, unspecified Status: Acute Assessment and Plan: Thrombocytopenia that patient initially presented with has improved High platelet count at this time suggest hemoconcentration (6) Hyperkalemia: Code(s): E87.5 - Hyperkalemia Status: Acute Assessment and Plan: Hyperkalemia with ALEJANDRO Calcium gluconate, insulin and D50, bicarb received Lokelma in ICU IV fluid bolus Now resolved (7) C. difficile diarrhea: Code(s): A04.72 - Enterocolitis due to Clostridium difficile, not specified as recurrent Status: Acute Assessment and Plan: Continue Dificid. Diarrhea improved. DC IV Flagyl CT abdomen pelvis reviewed (8) Acute respiratory failure: Code(s): J96.00 - Acute respiratory failure, unspecified whether with hypoxia or hypercapnia Status: Acute Assessment and Plan: improved Plan J-tube feeding started. Advance as tolerated Subjective Date/time seen: 11/19/24 09:38 Interval history: Sam has been admitted for septic shock pn 10/17 started on Levophed and admitted to ICU. T chest abdomen pelvis with no acute findings. Face CT with extensive sinus disease with near complete opacification of the right maxillary sinus and dependently layering fluid in the bilateral sphenoid sinuses. paitent was getting better. off Levophed on 10/18 Initially was on Cefepime and vancomycin but it was discontinued as there was no source on infection and neg blood cultre. on 10/19 patient had fever started on Rocephin for possible UTI vs sinusitis. C diff was positive on 10/22/24 started on Vancomycin and concluded on 11/01/24 AMS; MRI/Ct/EEG unremarkable except for sinusitis. Lumbar puncture 10/31/2024 with mildly elevated opening pressure of 23 cm water CSF with high-protein patient also had Alejandro and rhabdomyolysis which received IVF. Patient also had pancytopenia. Hematology oncology on board. Platelet improved. patient failed barium swallow . surgery team was consulted underwent Peg tube placement on 11/07/21 rapid response was called on 11/08/24 because of respiratory failure, hypotension, lactic acidosis. Patient was intubated and admitted to ICU.Ct concerning for cholecystitis and ileus. surgery team on board recommended to monitor patient has been on Dificid and meropenem patient gradually improving was transferred out of ICU 11/13/24 11/14/24 patient has been hypotensive and tachycardic this morning. receive IVF bolus. I saw and examined patient bedside. geovanna any chest pain, SOb, abd pain,N/V. Patient had worsening leukocytosis. Also has Alejandro I lactic acid 2.5, magnesium 1.4. treatment started for severe sepsis. Will give IV fluid. Continue with meropenem. Vancomycin was added. Surgery team on board. Plan for right upper quadrant ultrasound to evaluate cholecystitis. Blood cultures pending 11/15/24 Patient was seen and examined at bedside. awake but not following/answering questions. hypotension improved .WBC improving US showed cholecystitis. plan for cholecystostomy tube placement. 11/16/2024 No overnight events. Discussed with nursing staff. Awake follow some commands. Labs reviewed. Status post cholecystostomy tube placed. 11/17/2024: No events. Patient remains afebrile. Labs reviewed. Discussed with nursing staff. 11/18/2024: No overnight events. J-tube feeding has been started. At 20 cc an hour. NG in place. 11/19/2024: Mild grade fever noted off and on. Blood culture obtained. He is more alert and awake and interactive otherwise clinically improving. Liquid stool in bag. Review of Systems Review of Systems: All systems reviewed & are unremarkable except as noted in HPI and below ( Limited, A&O x1, unreliable) Exam Narrative: General: Patient is awake,, not in any distress Lungs/Chest: Trachea central Coarse BS B/L, few crackles on the left base Cardiac: RRR. Normal S1 S2. No murmurs Circulation: Pedal pulses are intact and symmetrical. Abdomen: Present bowel sounds. Midline incision is under dressing Soft. NT. ND. J tube in place Extremities: Patient has some edema bilaterally in lower extremity : Michelle in place Neurologic: Patient is awake, follows some commands Objective Data Vital Signs Vital Signs: Vital Signs - 24 hr 11/18/24 16:00 11/18/24 17:34 11/18/24 20:00 Temperature 100.7 F H 100.7 F H Pulse Rate 96 Respiratory Rate 18 Blood Pressure 132/82 Pulse Oximetry 100 Oxygen Delivery Room Air 11/18/24 23:27 11/19/24 03:09 11/19/24 03:14 Temperature 98.9 F 100.7 F H 100.7 F H Pulse Rate 94 Respiratory Rate 16 Blood Pressure 116/70 Pulse Oximetry 99 Oxygen Delivery 11/19/24 05:11 11/19/24 07:32 11/19/24 08:00 Temperature 100.5 F H 100 F H 99.4 F Pulse Rate 93 98 Respiratory Rate 16 14 Blood Pressure 133/77 135/80 Pulse Oximetry 100 98 Oxygen Delivery Intake/Output Intake/Output: Intake & Output 11/16/24 11/17/24 11/18/24 11/19/24 23:59 23:59 23:59 23:59 Intake Total 037 137 3327 0 Output Total 3450 925 1050 300 Balance -3000 -475 464 -300 Meds/Results Medications: Active Medications Generic Name Dose Route Start Last Admin Trade Name Freq PRN Reason Stop Dose Admin Acetaminophen 650 mg 11/13/24 21:07 11/19/24 03:09 Acetaminophen Elixir 325 Mg/10.15 Ml Udc FEED TUBE 650 mg Q6H PRN Administration Fever >101 Allopurinol 100 mg 11/15/24 09:00 11/18/24 10:45 Allopurinol 100 Mg Tablet FEED TUBE 100 mg DAILY JHONY Administration Amlodipine Besylate 10 mg 11/14/24 10:02 11/14/24 14:58 Amlodipine Besylate 10 Mg Tablet PO Not Given DAILY JHONY Aspirin 81 mg 11/04/24 08:00 11/18/24 10:45 Aspirin 81 Mg Chewable Tablet FEED TUBE 81 mg DAILY@0800 JHONY Administration Carvedilol 12.5 mg 11/14/24 10:02 11/14/24 14:58 Carvedilol 12.5 Mg Tablet PO Not Given BID JHONY Collagenase 1 applic 11/13/24 09:00 11/18/24 20:44 Collagenase Oint 30 Gm Tube TOPICAL 1 applic Q12HR JHONY Administration Dextrose 12.5 gm 10/17/24 21:26 10/30/24 05:55 Dextrose 50% 25 Gm/50 Ml Syringe IV PUSH 12.5 gm PRN PRN Administration Hypoglycemia Protocol Enoxaparin Sodium 40 mg 11/02/24 09:00 11/09/24 08:18 Enoxaparin 40 Mg/0.4 Ml Syringe SUB-Q 40 mg DAILY JHONY Administration Folic Acid 1 mg 10/24/24 09:00 11/18/24 11:03 Folic Acid 1 Mg Tablet FEED TUBE 1 mg QAM JHONY Administration Glucagon 1 mg 10/17/24 21:26 Glucagon For Inj 1 Mg Vial IM PRN PRN Hypoglycemia Protocol Glucose 15 gm 11/13/24 21:07 Glucose Oral Gel 15 Gm Of Glucse In 37.5 Gm Tube FEED TUBE PRN PRN Hypoglycemia Protocol Dextrose 1,000 mls @ 100 mls/hr 10/17/24 21:26 Dextrose 5% 1,000 Ml IVPB PRN PRN Hypoglycemia Protocol Vancomycin HCl 1,250 mg in 250 mls @ 166.667 mls/hr 11/18/24 02:00 11/19/24 03:00 Vancomycin 1,250 Mg/Ns 250 Ml IVPB 166 mls/hr Q12H JHONY Administration Meropenem 1 gm in 100 mls @ 200 mls/hr 11/18/24 20:00 11/18/24 20:43 IVPB 200 mls/hr Q12H JHONY Administration Insulin Aspart 3 - 6 units 11/08/24 12:00 11/19/24 07:31 Insulin Aspart (*Bkc) 100 Units/Ml SUB-Q Not Given Q6HR [facility] Protocol Miscellaneous Information 1 each 11/17/24 00:01 Please Renew _Pantoprazole. Per [employer] Procedure, It Will Discontinue If Not Renewed XX 12/17/24 00:00 CLARIFY JHONY Miscellaneous Information 1 each 11/17/24 00:01 Fidaxomicin Needs To Be Renewed Or It Will Automatically Discontinue. XX 12/17/24 00:00 CLARIFY JHONY Rosuvastatin Calcium 10 mg 11/04/24 09:00 11/18/24 10:45 Rosuvastatin 10 Mg Tablet FEED TUBE 10 mg DAILY JHONY Administration Saccharomyces Boulardii 250 mg 11/14/24 09:00 11/18/24 10:45 Saccharomyces Boulardii 250 Mg Capsule FEED TUBE 250 mg DAILY JHONY Administration Sodium Chloride 10 ml 11/08/24 14:00 11/19/24 07:32 Central Line Flush IV PUSH 10 ml Q8HR JHONY Administration Sodium Chloride 10 ml 11/08/24 08:15 Central Line Flush IV PUSH PRN PRN with TPN bag changes Sodium Chloride 20 ml 11/08/24 08:15 11/11/24 06:50 Central Line Flush IV PUSH 20 ml PRN PRN Administration after blood draws Thiamine HCl 100 mg 10/24/24 09:00 11/18/24 10:45 Thiamine Hcl 100 Mg Tablet FEED TUBE 100 mg QAM JHONY Administration Radiology Results: ITS Impressions Face CT 10/19/24 09:39 IMPRESSION: 1. Extensive sinus disease with near complete opacification of the right maxillary sinus and dependently layering fluid in the bilateral sphenoid sinuses. Correlate clinically for acute sinusitis. 2. Dental and periodontal disease with periapical lucency surrounding the posterior most remaining right maxillary molar. Renal Ultrasound 10/19/24 09:48 IMPRESSION: No hydronephrosis or renal calculi. No parenchymal findings to suggest the presence of medical renal disease. Simple cysts within the right kidney, for which no further follow-up is needed. Brain MRI 10/24/24 14:22 IMPRESSION: 1. Age-related changes the brain. No acute intracranial process. 2. Prominent sinus disease with fluid nearly filling the right maxillary sinus and layering dependently in the bilateral sphenoid sinuses. Correlate clinically for acute sinusitis. Lumbar Puncture Fluoroscopy 10/31/24 17:34 IMPRESSION: 1. Successful fluoro-guided lumbar puncture with mildly elevated opening pressure of 23 cm water. Modified Barium Swallow 11/06/24 10:05 IMPRESSION: Nondiagnostic study as all contents either leaked or were actively expelled from the mouth. No swallows were able to be evaluated. Please correlate with speech pathologist findings and specific feeding recommendations. Abdomen X-Ray 11/08/24 07:55 Impression: NG tube in satisfactory position. Probable small bowel obstruction. Chest/Abdomen/Pelvis CT 11/08/24 09:59 IMPRESSION: CHEST: 1. Right basilar atelectasis versus pneumonia with pleural effusion. 2. No other acute cardiopulmonary pathology. ABDOMEN/PELVIS: 1. Free air is seen anteriorly around the liver with minimal fluid. 2. Significant ascites in the pelvis. Drainage tube is seen in the left side of the pelvis. 3. Cholelithiasis with thickened wall of the gallbladder. Evaluation for cholecystitis advised. 4. Slightly dilated small bowel loops in the left upper abdomen which may indicate ileus follow-up advised. 5. Right renal cysts. Upper GI Series 11/09/24 13:49 IMPRESSION: 1. Left lower quadrant jejunostomy tube in expected position with injected contrast opacifying the normal-appearing jejunum with no extraluminal leakage of contrast. Head CT 11/14/24 05:17 Impression: No intracranial hemorrhage, mass, or acute infarct. Atrophy and chronic white matter changes, as above. Abdomen Ultrasound 11/14/24 15:13 IMPRESSION: Highly suggestive cholecystitis with cholelithiasis and gallbladder sludge. Clinical correlation advised. Minimal ascites. Minimal right pleural effusion. Cholecystostomy 11/15/24 16:04 IMPRESSION: 1. Successful ultrasound-guided cholecystostomy tube placement. 2. 13 mL bile was sent for aerobic, anaerobic, and fungal cultures. 3. The catheter will be managed by Dr. Ortiz. A catheter cholangiogram may be performed not less than 48 hours after tube placement if clinically indicated to assess cystic duct patency. If cholecystectomy is not eventually performed and the infectious episode has resolved, the tube may be removed over a guidewire, preferably not less than 3 weeks after placement to allow time for a mature catheter tract to form to prevent bile leakage and peritonitis. Chest X-Ray 11/19/24 08:55 Impression: Clear lungs. Right-sided PICC line in place. Labs Labs: Laboratory Results - last 24 hr 11/18/24 11/18/24 11/19/24 12:43 23:23 01:43 WBC RBC Hgb Hct MCV MCH MCHC RDW Plt Count MPV Immature Gran % (Auto) Neut % (Auto) Lymph % (Auto) [place] % (Auto) Eos % (Auto) Baso % (Auto) Lymph # (Auto) [place] # (Auto) Eos # (Auto) Baso # (Auto) Abs Immat Gran (auto) Absolute Neuts (auto) Absolute Nucleated RBC Nucleated RBC % Sodium Potassium Chloride Carbon Dioxide Anion Gap BUN Creatinine Estim Creat Clear Calc Estimated GFR Glucose POC Capillary Glucose 109 H 120 H Calcium Magnesium Total Bilirubin AST ALT Alkaline Phosphatase Total Protein Albumin Urine Color Dark yellow Urine Appearance Turbid H Urine pH 5.5 Ur Specific [place] 1.029 Urine Protein 1+ H Urine Glucose (UA) Negative Urine Ketones Trace H Ur Blood (Man) Negative Urine Nitrate Negative Urine Bilirubin 1+ H Urine Urobilinogen 1.0 Add Ur Microanalysis Reviewed Leukocyte Esterase Rfl Negative Urine RBC 3-5 H Urine WBC 0-5 Ur Squamous Epith Cells Few Urine Bacteria None seen Urine Casts >20 Urine Mucus Present Vancomycin Trough 11/19/24 11/19/24 11/19/24 05:20 05:29 07:30 WBC 13.8 H RBC 3.24 L Hgb 9.5 L Hct 30.2 L MCV 93.2 MCH 29.3 MCHC 31.5 L RDW 18.4 H Plt Count 280 MPV 11.0 H Immature Gran % (Auto) 0.7 H Neut % (Auto) 66.2 Lymph % (Auto) 17.1 L [place] % (Auto) 10.4 H Eos % (Auto) 5.2 H Baso % (Auto) 0.4 Lymph # (Auto) 2.37 [place] # (Auto) 1.4 H Eos # (Auto) 0.7 H Baso # (Auto) 0.1 Abs Immat Gran (auto) 0.10 H Absolute Neuts (auto) 9.1 H Absolute Nucleated RBC 0.000 Nucleated RBC % 0.0 Sodium 145 Potassium 3.6 Chloride 115 H Carbon Dioxide 22 Anion Gap 8 BUN 15 Creatinine 0.74 Estim Creat Clear Calc 78 Estimated GFR > 60 Glucose 116 H POC Capillary Glucose Calcium 8.5 Magnesium 1.7 Total Bilirubin 1.0 AST 36 ALT 19 Alkaline Phosphatase 122 Total Protein 6.9 Albumin 2.8 L Urine Color Urine Appearance Urine pH Ur Specific [place] Urine Protein Urine Glucose (UA) Urine Ketones Ur Blood (Man) Urine Nitrate Urine Bilirubin Urine Urobilinogen Add Ur Microanalysis Leukocyte Esterase Rfl Urine RBC Urine WBC Ur Squamous Epith Cells Urine Bacteria Urine Casts Urine Mucus Vancomycin Trough 37.5 H 11/19/24 07:32 WBC RBC Hgb Hct MCV MCH MCHC RDW Plt Count MPV Immature Gran % (Auto) Neut % (Auto) Lymph % (Auto) [place] % (Auto) Eos % (Auto) Baso % (Auto) Lymph # (Auto) [place] # (Auto) Eos # (Auto) Baso # (Auto) Abs Immat Gran (auto) Absolute Neuts (auto) Absolute Nucleated RBC Nucleated RBC % Sodium Potassium Chloride Carbon Dioxide Anion Gap BUN Creatinine Estim Creat Clear Calc Estimated GFR Glucose POC Capillary Glucose 116 H Calcium Magnesium Total Bilirubin AST ALT Alkaline Phosphatase Total Protein Albumin Urine Color Urine Appearance Urine pH Ur Specific [place] Urine Protein Urine Glucose (UA) Urine Ketones Ur Blood (Man) Urine Nitrate Urine Bilirubin Urine Urobilinogen Add Ur Microanalysis Leukocyte Esterase Rfl Urine RBC Urine WBC Ur Squamous Epith Cells Urine Bacteria Urine Casts Urine Mucus Vancomycin Trough
[2024-11-19] MEDS: SACCHAROMYCES BOULARDII 250 MG CAPSULE FEED TUBE (09:53)
[2024-11-19] MEDS: ROSUVASTATIN 10 MG TABLET FEED TUBE (09:53)
[2024-11-19] MEDS: THIAMINE HCL 100 MG TABLET FEED TUBE (09:53)
[2024-11-19] MEDS: FOLIC ACID 1 MG TABLET FEED TUBE (09:53)
[2024-11-19] MEDS: ASPIRIN 81 MG CHEWABLE TABLET FEED TUBE (09:53)
[2024-11-19] MEDS: MEROPENEM 1 GM/NS 100 ML 1 GM/100 ML BAG IVPB ×3 (09:53→21:12)
[2024-11-19] MEDS: COLLAGENASE OINT 30 GM TUBE 1 APPLIC TOPICAL ×2 (10:15→21:23)
[2024-11-19] MEDS: PANTOPRAZOLE SODIUM IV 40 MG VIAL IV PUSH (12:14)
--- NOTE | 2024-11-19 12:23 | P.PNGS_ITS ---
Progress Note: A&P Assessment and Plan (1) Cholelithiasis and acute cholecystitis without obstruction: Code(s): K80.00 - Calculus of gallbladder with acute cholecystitis without obstruction Status: Acute Assessment and Plan: * S/p cholecystostomy tube placement, which should alleviate acute cholecystitis. Patient having fevers again yesterday and today. There is no output from the cholecystostomy tube. Will order a cholangiogram through the cholecystostomy tube today to evaluate for cystic duct patency. (2) Unable to eat: Code(s): R63.8 - Other symptoms and signs concerning food and fluid intake Status: Acute Assessment and Plan: * Jejunostomy tube in place and functioning well. Tolerating tube feedings at goal. No evidence of complications or leakage on any imaging studies. (3) History of jejunostomy tube placement: Status: Acute Assessment and Plan: * Wound healing well, no problems with J-tube Plan I have discussed the patient's case and plan of care with Dr. Ortiz. Subjective Subjective Date/Time Seen: 11/19/24 12:23 Patient reports: fever (Tmax 100.9F over past 24 hours) Interval history: Patient alert and awake. Denies any abdominal pain. No output documented from cholecystostomy tube since placement on 11/15/2024. Verified with nursing and they were given and reports that there has been no output from the cholecystostomy tube. No issues with the J tube. Tolerating tube feeding at goal. Exam Const: General: comfortable and no acute distress GI: Inspection: non-distended and incision (Dry and healing well, no erythema) GI Palp: Yes Soft to palpation, No Tenderness to palpation present (GI) and No Guarding due to palpation present (GI) Auscultation: normal bowel sounds Other: Jejunostomy tube in place with tube feeding attached RUQ cholecystostomy tube with brown bilious appearing drainage in the tubing, but no output in the drainage bag. Gauze dressing dry and intact. Objective Data Vital Signs Vital Signs: Vital Signs - 24 hr 11/18/24 16:00 11/18/24 17:34 11/18/24 20:00 Temperature 100.7 F H 100.7 F H Pulse Rate 96 Respiratory Rate 18 Blood Pressure 132/82 Pulse Oximetry 100 Oxygen Delivery Room Air 11/18/24 23:27 11/19/24 03:09 11/19/24 03:14 Temperature 98.9 F 100.7 F H 100.7 F H Pulse Rate 94 Respiratory Rate 16 Blood Pressure 116/70 Pulse Oximetry 99 Oxygen Delivery 11/19/24 05:11 11/19/24 07:32 11/19/24 08:00 Temperature 100.5 F H 100 F H 99.4 F Pulse Rate 93 98 Respiratory Rate 16 14 Blood Pressure 133/77 135/80 Pulse Oximetry 100 98 Oxygen Delivery 11/19/24 09:51 Temperature Pulse Rate Respiratory Rate Blood Pressure Pulse Oximetry Oxygen Delivery Room Air Intake/Output Intake/Output: Intake & Output 11/16/24 11/17/24 11/18/24 11/19/24 23:59 23:59 23:59 23:59 Intake Total 287 062 5180 100 Output Total 3450 925 1050 450 Balance -3000 -475 564 -350 Meds/Results Medications: Active Medications Generic Name Dose Route Start Last Admin Trade Name Freq PRN Reason Stop Dose Admin Acetaminophen 650 mg 11/13/24 21:07 11/19/24 03:09 Acetaminophen Elixir 325 Mg/10.15 Ml Udc FEED TUBE 650 mg Q6H PRN Administration Fever >101 Allopurinol 100 mg 11/15/24 09:00 11/19/24 09:53 Allopurinol 100 Mg Tablet FEED TUBE 100 mg DAILY JHONY Administration Amlodipine Besylate 10 mg 11/19/24 10:00 11/19/24 10:09 Amlodipine Besylate 10 Mg Tablet FEED TUBE 10 mg DAILY JHONY Administration Aspirin 81 mg 11/04/24 08:00 11/19/24 09:53 Aspirin 81 Mg Chewable Tablet FEED TUBE 81 mg DAILY@0800 JHONY Administration Carvedilol 12.5 mg 11/14/24 10:02 11/14/24 14:58 Carvedilol 12.5 Mg Tablet PO Not Given BID JHONY Collagenase 1 applic 11/13/24 09:00 11/19/24 10:15 Collagenase Oint 30 Gm Tube TOPICAL 1 applic Q12HR JHONY Administration Dextrose 12.5 gm 10/17/24 21:26 10/30/24 05:55 Dextrose 50% 25 Gm/50 Ml Syringe IV PUSH 12.5 gm PRN PRN Administration Hypoglycemia Protocol Enoxaparin Sodium 40 mg 11/02/24 09:00 11/09/24 08:18 Enoxaparin 40 Mg/0.4 Ml Syringe SUB-Q 40 mg DAILY JHONY Administration Folic Acid 1 mg 10/24/24 09:00 11/19/24 09:53 Folic Acid 1 Mg Tablet FEED TUBE 1 mg QAM JHONY Administration Glucagon 1 mg 10/17/24 21:26 Glucagon For Inj 1 Mg Vial IM PRN PRN Hypoglycemia Protocol Glucose 15 gm 11/13/24 21:07 Glucose Oral Gel 15 Gm Of Glucse In 37.5 Gm Tube FEED TUBE PRN PRN Hypoglycemia Protocol Dextrose 1,000 mls @ 100 mls/hr 10/17/24 21:26 Dextrose 5% 1,000 Ml IVPB PRN PRN Hypoglycemia Protocol Meropenem 1 gm in 100 mls @ 200 mls/hr 11/18/24 20:00 11/19/24 10:23 IVPB Infused Q12H JHONY Infusion Insulin Aspart 3 - 6 units 11/08/24 12:00 11/19/24 07:31 Insulin Aspart (*Bkc) 100 Units/Ml SUB-Q Not Given Q6HR JHONY Protocol Pantoprazole Sodium 40 mg 11/19/24 09:00 11/19/24 12:14 Pantoprazole Sodium Iv 40 Mg Vial IV PUSH 40 mg QAM JHONY Administration Rosuvastatin Calcium 10 mg 11/04/24 09:00 11/19/24 09:53 Rosuvastatin 10 Mg Tablet FEED TUBE 10 mg DAILY JHONY Administration Saccharomyces Boulardii 250 mg 11/14/24 09:00 11/19/24 09:53 Saccharomyces Boulardii 250 Mg Capsule FEED TUBE 250 mg DAILY JHONY Administration Sodium Chloride 10 ml 11/08/24 14:00 11/19/24 07:32 Central Line Flush IV PUSH 10 ml Q8HR JHONY Administration Sodium Chloride 10 ml 11/08/24 08:15 Central Line Flush IV PUSH PRN PRN with TPN bag changes Sodium Chloride 20 ml 11/08/24 08:15 11/11/24 06:50 Central Line Flush IV PUSH 20 ml PRN PRN Administration after blood draws Thiamine HCl 100 mg 10/24/24 09:00 11/19/24 09:53 Thiamine Hcl 100 Mg Tablet FEED TUBE 100 mg QAM JHONY Administration Radiology Results: ITS Impressions Face CT 10/19/24 09:39 IMPRESSION: 1. Extensive sinus disease with near complete opacification of the right maxillary sinus and dependently layering fluid in the bilateral sphenoid sinuses. Correlate clinically for acute sinusitis. 2. Dental and periodontal disease with periapical lucency surrounding the posterior most remaining right maxillary molar. Renal Ultrasound 10/19/24 09:48 IMPRESSION: No hydronephrosis or renal calculi. No parenchymal findings to suggest the presence of medical renal disease. Simple cysts within the right kidney, for which no further follow-up is needed. Brain MRI 10/24/24 14:22 IMPRESSION: 1. Age-related changes the brain. No acute intracranial process. 2. Prominent sinus disease with fluid nearly filling the right maxillary sinus and layering dependently in the bilateral sphenoid sinuses. Correlate clinically for acute sinusitis. Lumbar Puncture Fluoroscopy 10/31/24 17:34 IMPRESSION: 1. Successful fluoro-guided lumbar puncture with mildly elevated opening pressure of 23 cm water. Modified Barium Swallow 11/06/24 10:05 IMPRESSION: Nondiagnostic study as all contents either leaked or were actively expelled from the mouth. No swallows were able to be evaluated. Please correlate with speech pathologist findings and specific feeding recommendations. Abdomen X-Ray 11/08/24 07:55 Impression: NG tube in satisfactory position. Probable small bowel obstruction. Chest/Abdomen/Pelvis CT 11/08/24 09:59 IMPRESSION: CHEST: 1. Right basilar atelectasis versus pneumonia with pleural effusion. 2. No other acute cardiopulmonary pathology. ABDOMEN/PELVIS: 1. Free air is seen anteriorly around the liver with minimal fluid. 2. Significant ascites in the pelvis. Drainage tube is seen in the left side of the pelvis. 3. Cholelithiasis with thickened wall of the gallbladder. Evaluation for cholecystitis advised. 4. Slightly dilated small bowel loops in the left upper abdomen which may indicate ileus follow-up advised. 5. Right renal cysts. Upper GI Series 11/09/24 13:49 IMPRESSION: 1. Left lower quadrant jejunostomy tube in expected position with injected contrast opacifying the normal-appearing jejunum with no extraluminal leakage of contrast. Head CT 11/14/24 05:17 Impression: No intracranial hemorrhage, mass, or acute infarct. Atrophy and chronic white matter changes, as above. Abdomen Ultrasound 11/14/24 15:13 IMPRESSION: Highly suggestive cholecystitis with cholelithiasis and gallbladder sludge. Clinical correlation advised. Minimal ascites. Minimal right pleural effusion. Cholecystostomy 11/15/24 16:04 IMPRESSION: 1. Successful ultrasound-guided cholecystostomy tube placement. 2. 13 mL bile was sent for aerobic, anaerobic, and fungal cultures. 3. The catheter will be managed by Dr. Ortiz. A catheter cholangiogram may be performed not less than 48 hours after tube placement if clinically indicated to assess cystic duct patency. If cholecystectomy is not eventually performed and the infectious episode has resolved, the tube may be removed over a guidewire, preferably not less than 3 weeks after placement to allow time for a mature catheter tract to form to prevent bile leakage and peritonitis. Chest X-Ray 11/19/24 08:55 Impression: Clear lungs. Right-sided PICC line in place. Labs Labs: Laboratory Results - last 24 hr 11/18/24 11/18/24 11/19/24 12:43 23:23 01:43 WBC RBC Hgb Hct MCV MCH MCHC RDW Plt Count MPV Immature Gran % (Auto) Neut % (Auto) Lymph % (Auto) [place] % (Auto) Eos % (Auto) Baso % (Auto) Lymph # (Auto) [place] # (Auto) Eos # (Auto) Baso # (Auto) Abs Immat Gran (auto) Absolute Neuts (auto) Absolute Nucleated RBC Nucleated RBC % Sodium Potassium Chloride Carbon Dioxide Anion Gap BUN Creatinine Estim Creat Clear Calc Estimated GFR Glucose POC Capillary Glucose 109 H 120 H Calcium Magnesium Total Bilirubin AST ALT Alkaline Phosphatase Total Protein Albumin Urine Color Dark yellow Urine Appearance Turbid H Urine pH 5.5 Ur Specific [place] 1.029 Urine Protein 1+ H Urine Glucose (UA) Negative Urine Ketones Trace H Ur Blood (Man) Negative Urine Nitrate Negative Urine Bilirubin 1+ H Urine Urobilinogen 1.0 Add Ur Microanalysis Reviewed Leukocyte Esterase Rfl Negative Urine RBC 3-5 H Urine WBC 0-5 Ur Squamous Epith Cells Few Urine Bacteria None seen Urine Casts >20 Urine Mucus Present Vancomycin Trough 11/19/24 11/19/24 11/19/24 05:20 05:29 07:30 WBC 13.8 H RBC 3.24 L Hgb 9.5 L Hct 30.2 L MCV 93.2 MCH 29.3 MCHC 31.5 L RDW 18.4 H Plt Count 280 MPV 11.0 H Immature Gran % (Auto) 0.7 H Neut % (Auto) 66.2 Lymph % (Auto) 17.1 L [place] % (Auto) 10.4 H Eos % (Auto) 5.2 H Baso % (Auto) 0.4 Lymph # (Auto) 2.37 [place] # (Auto) 1.4 H Eos # (Auto) 0.7 H Baso # (Auto) 0.1 Abs Immat Gran (auto) 0.10 H Absolute Neuts (auto) 9.1 H Absolute Nucleated RBC 0.000 Nucleated RBC % 0.0 Sodium 145 Potassium 3.6 Chloride 115 H Carbon Dioxide 22 Anion Gap 8 BUN 15 Creatinine 0.74 Estim Creat Clear Calc 78 Estimated GFR > 60 Glucose 116 H POC Capillary Glucose Calcium 8.5 Magnesium 1.7 Total Bilirubin 1.0 AST 36 ALT 19 Alkaline Phosphatase 122 Total Protein 6.9 Albumin 2.8 L Urine Color Urine Appearance Urine pH Ur Specific [place] Urine Protein Urine Glucose (UA) Urine Ketones Ur Blood (Man) Urine Nitrate Urine Bilirubin Urine Urobilinogen Add Ur Microanalysis Leukocyte Esterase Rfl Urine RBC Urine WBC Ur Squamous Epith Cells Urine Bacteria Urine Casts Urine Mucus Vancomycin Trough 37.5 H 11/19/24 11/19/24 07:32 11:26 WBC RBC Hgb Hct MCV MCH MCHC RDW Plt Count MPV Immature Gran % (Auto) Neut % (Auto) Lymph % (Auto) [place] % (Auto) Eos % (Auto) Baso % (Auto) Lymph # (Auto) [place] # (Auto) Eos # (Auto) Baso # (Auto) Abs Immat Gran (auto) Absolute Neuts (auto) Absolute Nucleated RBC Nucleated RBC % Sodium Potassium Chloride Carbon Dioxide Anion Gap BUN Creatinine Estim Creat Clear Calc Estimated GFR Glucose POC Capillary Glucose 116 H 108 H Calcium Magnesium Total Bilirubin AST ALT Alkaline Phosphatase Total Protein Albumin Urine Color Urine Appearance Urine pH Ur Specific [place] Urine Protein Urine Glucose (UA) Urine Ketones Ur Blood (Man) Urine Nitrate Urine Bilirubin Urine Urobilinogen Add Ur Microanalysis Leukocyte Esterase Rfl Urine RBC Urine WBC Ur Squamous Epith Cells Urine Bacteria Urine Casts Urine Mucus Vancomycin Trough
--- NOTE | 2024-11-19 14:54 | PCOTNOTE ---
Patient unavailable for OT treatment session at this time. Patient having PT treatment session.
--- NOTE | 2024-11-19 15:20 | PM.EVENT ---
Event Note Event Note Event Note: Called to evaluate perc choley tube placed on 11/15/24. Recurrent fevers, leukocytosis, but no L shift. Alk phos WNL Recommend tube flush for patency CT cholangiogram Likely needs upsizing - placed 8.5 Fr Further pending results of imaging.
[2024-11-20] VITALS (14 sets, daily range): BP systolic 111–136; BP diastolic 67–78; PULSE 88–95; RESP 16–26; TEMP 36.8–37.6; O2SAT 97–100
[2024-11-20] MEDS: MEROPENEM 1 GM/NS 100 ML 1 GM/100 ML BAG IVPB ×3 (05:30→22:26)
[2024-11-20 06:02] LABS: Hematocrit 29.2 % (42.0-52.0); Hemoglobin 9.2 g/dL (14.0-18.0); Immature Granulocyte Percent A 0.6 % (0-0.5); Lymphocytes Absolute Auto 2.53 K/mm3 (0.9-3.2); Mean Corpuscular HGB Conc 31.5 g/dl (32-36); Mean Corpuscular Hemoglobin 29.7 pg (26-34); Mean Corpuscular Volume 94.2 fl (80-100); Nucleated Red Blood Cells Absolute Auto 0.000 K/mm3 (0.0-0.012); Nucleated Red Blood Cells Perc 0.0 % (0.0-0.2); Platelet Count Result 288 k/mm3 (150-375); Red Blood Count 3.10 M/mm3 (4.6-6.20); White Blood Count 13.2 K/mm3 (4.5-10.0)
[2024-11-20 06:09] LABS: Alanine Aminotransferase 19 U/L (6-50); Albumin Level 2.8 g/dL (3.5-5.1); Alkaline Phosphatase 128 U/L (38-126); Anion Gap 9 mmol/L (4-12); Aspartate Amino Transferase 37 U/L (17-59); Bilirubin,Total 1.0 mg/dL (0.2-1.3); Blood Urea Nitrogen 14 mg/dL (9-20); Calcium 8.5 mg/dL (8.4-10.2); Carbon Dioxide 23 mmol/L (22-30); Chloride 115 mmol/L (98-107); Estimated CRCL calculation 78 ml/min; Estimated Glomerular Filt Rate > 60; Glucose 98 mg/dL (65-110); Magnesium 1.6 mg/dL (1.6-2.3); Potassium 3.8 mmol/L (3.4-5.0); Sodium 147 mmol/L (137-145); Total Protein 7.0 g/dL (6.3-8.2)
[2024-11-20] MEDS: MIDAZOLAM HCL (*CRX) 2 MG/2 ML VIAL 0.5 MG IV PUSH (10:20)
--- NOTE | 2024-11-20 10:30 | PCNFU ---
Nutrition Follow-Up Complete: Inadequate Oral Intake as related to AMS as evidenced by NPO. Meet estimated nutritional needs - Not progressing as NPO today. Continue current goal Goal: Pt current nutrition is NPO for drain placement later today. Nutrition recommendation: Restart tube feeding Jevity 1.5 @ 30 ml/h with flushes 150 ml q 4 hours. Advance to goal rate 55 ml/h by 10 ml q 4 hours as tolerated. Last recorded weight is 66.1 kg. Bowel Motility: Liquid stool per FMS +1 11/19/24 Labs Reviewed: Hgb 9.2, Hct 29.2, Alb 2.8, Na 147 Meds Noted: Folic acid, florastor, lovenox, protonix, thiamine, novolog Skin: WNL Additional Notes: Jevity 1.5 @ goal rate 55 ml/g provides 1815 kcal, 84 g protein, 920 ml free water. +150 ml flushes q 4 hours, total water 1820 ml/day. Meets needs @ 28 kcal/kg, 1,3 g protein/kg. Adequate for needs. will monitor weight, labs, skin, diet orders, meds every 3 days.
[2024-11-20] MEDS: PANTOPRAZOLE SODIUM IV 40 MG VIAL IV PUSH (11:21)
[2024-11-20] MEDS: FOLIC ACID 1 MG TABLET FEED TUBE (11:23)
[2024-11-20] MEDS: THIAMINE HCL 100 MG TABLET FEED TUBE (11:23)
[2024-11-20] MEDS: SACCHAROMYCES BOULARDII 250 MG CAPSULE FEED TUBE (11:23)
[2024-11-20] MEDS: ROSUVASTATIN 10 MG TABLET FEED TUBE (11:23)
[2024-11-20] MEDS: ASPIRIN 81 MG CHEWABLE TABLET FEED TUBE (11:24)
[2024-11-20] MEDS: COLLAGENASE OINT 30 GM TUBE 1 APPLIC TOPICAL ×2 (11:34→22:27)
[2024-11-20] MEDS: CENTRAL LINE FLUSH 10 ML IV PUSH ×3 (11:45→22:27)
[2024-11-20] MEDS: ALTEPLASE 2 MG VIAL (CATHFLO) IV PUSH (14:30)
--- NOTE | 2024-11-20 15:17 | P.PNGS_ITS ---
Progress Note: A&P Assessment and Plan (1) Cholelithiasis and acute cholecystitis without obstruction: Code(s): K80.00 - Calculus of gallbladder with acute cholecystitis without obstruction Status: Acute Assessment and Plan: * S/p cholecystostomy tube placement. CT cholangiogram yesterday showed an occluded cystic duct and a right-sided intraabdominal fluid collection. The cholecystostomy tube was difficult to flush initially during cholangiogram, but was patent after flushing. Will have nursing flush the cholecystostomy tube every 12 hours with 10cc normal saline to maintain patency. (2) Intra-abdominal abscess: Code(s): K65.1 - Peritoneal abscess Status: Acute Assessment and Plan: * Right mid to upper abdominal fluid collection measuring up to 8.5 cm, concerning for abscess. This could be contributing to his intermittent fevesr. Discussed with Radiologist, who percutaneously drained this today in Radiology. Once drained, it appeared to be an intraabdominal hematoma. This was likely related to some bleeding following cholecystostomy tube placement. Cultures were sent, will follow. Continue IV antibiotics and tailor to cultures. Will having nursing flush the perc drain with 10 cc NS every 12 hours. (3) Unable to eat: Code(s): R63.8 - Other symptoms and signs concerning food and fluid intake Status: Acute Assessment and Plan: * Jejunostomy tube in place and functioning well. No evidence of complications or leakage on any imaging studies. (4) History of jejunostomy tube placement: Status: Acute Assessment and Plan: * Wound healing well, no problems with J-tube. Tolerating tube feedings. Plan I have discussed the patient's case and plan of care with Dr. Ortiz. Subjective Subjective Date/Time Seen: 11/20/24 15:17 Interval history: Patient sleeping upon arrival. No acute events overnight. He had his perc drain placed today in IR. Spoke with the Radiologist who recommends flushing both the cholecystostomy tube and perc drain with 10 cc of normal saline every 12 hours. Exam GI: Inspection: non-distended GI Palp: Yes Soft to palpation, No Tenderness to palpation present (GI) and No Guarding due to palpation present (GI) Auscultation: normal bowel sounds Other: Right upper quadrant cholecystostomy tube with scant bilious drainage Percutaneous drain with bloody output Midline incision healing well with no erythema or drainage Jejunostomy tube in place with gauze dressing dry and intact Objective Data Vital Signs Vital Signs: Vital Signs - 24 hr 11/19/24 15:52 11/19/24 20:00 11/19/24 21:29 Temperature 99.6 F 99.7 F H Pulse Rate 98 95 Respiratory Rate 20 24 H Blood Pressure 110/76 121/67 Pulse Oximetry 98 100 Oxygen Delivery Room Air Oxygen Flow Rate 11/20/24 04:28 11/20/24 07:51 11/20/24 10:15 Temperature 99.7 F H 98.2 F Pulse Rate 95 94 92 Respiratory Rate 24 H 18 20 Blood Pressure 132/74 123/78 123/74 Pulse Oximetry 98 97 100 Oxygen Delivery Nasal Cannula Oxygen Flow Rate 2 11/20/24 10:20 11/20/24 10:25 11/20/24 10:30 Temperature Pulse Rate 93 92 90 Respiratory Rate 19 22 H 24 H Blood Pressure 125/75 134/72 129/78 Pulse Oximetry 100 100 100 Oxygen Delivery Nasal Cannula Nasal Cannula Nasal Cannula Oxygen Flow Rate 2 2 2 11/20/24 10:35 11/20/24 10:40 11/20/24 10:40 Temperature Pulse Rate 90 89 Respiratory Rate 19 26 H Blood Pressure 136/70 123/71 Pulse Oximetry 100 100 Oxygen Delivery Nasal Cannula Nasal Cannula Room Air Oxygen Flow Rate 2 2 11/20/24 10:45 11/20/24 10:50 11/20/24 10:55 Temperature Pulse Rate 91 88 89 Respiratory Rate 20 26 H 23 H Blood Pressure 129/74 121/75 130/75 Pulse Oximetry 100 100 100 Oxygen Delivery Nasal Cannula Nasal Cannula Nasal Cannula Oxygen Flow Rate 2 2 2 Intake/Output Intake/Output: Intake & Output 11/17/24 11/18/24 11/19/24 11/20/24 23:59 23:59 23:59 23:59 Intake Total 450 1614 1048 558 Output Total 925 1050 750 800 Balance -475 564 298 -242 Meds/Results Medications: Active Medications Generic Name Dose Route Start Last Admin Trade Name Freq PRN Reason Stop Dose Admin Acetaminophen 650 mg 11/13/24 21:07 11/19/24 03:09 Acetaminophen Elixir 325 Mg/10.15 Ml Udc FEED TUBE 650 mg Q6H PRN Administration Fever >101 Allopurinol 100 mg 11/15/24 09:00 11/20/24 11:23 Allopurinol 100 Mg Tablet FEED TUBE 100 mg DAILY JHONY Administration Alteplase, Recombinant 2 mg 11/20/24 13:51 11/20/24 14:30 Alteplase 2 Mg Vial (Cathflo) IV PUSH 2 mg ONCE PRN Administration Line Occlusion Amlodipine Besylate 10 mg 11/19/24 10:00 11/20/24 11:23 Amlodipine Besylate 10 Mg Tablet FEED TUBE 10 mg DAILY JHONY Administration Aspirin 81 mg 11/04/24 08:00 11/20/24 11:24 Aspirin 81 Mg Chewable Tablet FEED TUBE 81 mg DAILY@0800 JHONY Administration Carvedilol 12.5 mg 11/14/24 10:02 11/14/24 14:58 Carvedilol 12.5 Mg Tablet PO Not Given BID JHONY Collagenase 1 applic 11/13/24 09:00 11/20/24 11:34 Collagenase Oint 30 Gm Tube TOPICAL 1 applic Q12HR JHONY Administration Dextrose 12.5 gm 10/17/24 21:26 10/30/24 05:55 Dextrose 50% 25 Gm/50 Ml Syringe IV PUSH 12.5 gm PRN PRN Administration Hypoglycemia Protocol Enoxaparin Sodium 40 mg 11/02/24 09:00 11/09/24 08:18 Enoxaparin 40 Mg/0.4 Ml Syringe SUB-Q 40 mg DAILY JHONY Administration Folic Acid 1 mg 10/24/24 09:00 11/20/24 11:23 Folic Acid 1 Mg Tablet FEED TUBE 1 mg QAM JHONY Administration Glucagon 1 mg 10/17/24 21:26 Glucagon For Inj 1 Mg Vial IM PRN PRN Hypoglycemia Protocol Glucose 15 gm 11/13/24 21:07 Glucose Oral Gel 15 Gm Of Glucse In 37.5 Gm Tube FEED TUBE PRN PRN Hypoglycemia Protocol Dextrose 1,000 mls @ 100 mls/hr 10/17/24 21:26 Dextrose 5% 1,000 Ml IVPB PRN PRN Hypoglycemia Protocol Meropenem 1 gm in 100 mls @ 200 mls/hr 11/19/24 17:00 11/20/24 14:27 IVPB 200 mls/hr Q8HR JHONY Administration Insulin Aspart 3 - 6 units 11/08/24 12:00 11/20/24 11:46 Insulin Aspart (*Bkc) 100 Units/Ml SUB-Q Not Given Q6HR JHONY Protocol Pantoprazole Sodium 40 mg 11/19/24 09:00 11/20/24 11:21 Pantoprazole Sodium Iv 40 Mg Vial IV PUSH 40 mg QAM JHONY Administration Rosuvastatin Calcium 10 mg 11/04/24 09:00 11/20/24 11:23 Rosuvastatin 10 Mg Tablet FEED TUBE 10 mg DAILY JHONY Administration Saccharomyces Boulardii 250 mg 11/14/24 09:00 11/20/24 11:23 Saccharomyces Boulardii 250 Mg Capsule FEED TUBE 250 mg DAILY JHONY Administration Sodium Chloride 10 ml 11/08/24 14:00 11/20/24 14:28 Central Line Flush IV PUSH 10 ml Q8HR JHONY Administration Sodium Chloride 10 ml 11/08/24 08:15 Central Line Flush IV PUSH PRN PRN with TPN bag changes Sodium Chloride 20 ml 11/08/24 08:15 11/11/24 06:50 Central Line Flush IV PUSH 20 ml PRN PRN Administration after blood draws Thiamine HCl 100 mg 10/24/24 09:00 11/20/24 11:23 Thiamine Hcl 100 Mg Tablet FEED TUBE 100 mg QAM JHONY Administration Radiology Results: ITS Impressions Face CT 10/19/24 09:39 IMPRESSION: 1. Extensive sinus disease with near complete opacification of the right maxillary sinus and dependently layering fluid in the bilateral sphenoid sinuses. Correlate clinically for acute sinusitis. 2. Dental and periodontal disease with periapical lucency surrounding the posterior most remaining right maxillary molar. Renal Ultrasound 10/19/24 09:48 IMPRESSION: No hydronephrosis or renal calculi. No parenchymal findings to suggest the presence of medical renal disease. Simple cysts within the right kidney, for which no further follow-up is needed. Brain MRI 10/24/24 14:22 IMPRESSION: 1. Age-related changes the brain. No acute intracranial process. 2. Prominent sinus disease with fluid nearly filling the right maxillary sinus and layering dependently in the bilateral sphenoid sinuses. Correlate clinically for acute sinusitis. Lumbar Puncture Fluoroscopy 10/31/24 17:34 IMPRESSION: 1. Successful fluoro-guided lumbar puncture with mildly elevated opening pressure of 23 cm water. Modified Barium Swallow 11/06/24 10:05 IMPRESSION: Nondiagnostic study as all contents either leaked or were actively expelled from the mouth. No swallows were able to be evaluated. Please correlate with speech pathologist findings and specific feeding recommendations. Abdomen X-Ray 11/08/24 07:55 Impression: NG tube in satisfactory position. Probable small bowel obstruction. Chest/Abdomen/Pelvis CT 11/08/24 09:59 IMPRESSION: CHEST: 1. Right basilar atelectasis versus pneumonia with pleural effusion. 2. No other acute cardiopulmonary pathology. ABDOMEN/PELVIS: 1. Free air is seen anteriorly around the liver with minimal fluid. 2. Significant ascites in the pelvis. Drainage tube is seen in the left side of the pelvis. 3. Cholelithiasis with thickened wall of the gallbladder. Evaluation for cholecystitis advised. 4. Slightly dilated small bowel loops in the left upper abdomen which may indicate ileus follow-up advised. 5. Right renal cysts. Upper GI Series 11/09/24 13:49 IMPRESSION: 1. Left lower quadrant jejunostomy tube in expected position with injected contrast opacifying the normal-appearing jejunum with no extraluminal leakage of contrast. Head CT 11/14/24 05:17 Impression: No intracranial hemorrhage, mass, or acute infarct. Atrophy and chronic white matter changes, as above. Abdomen Ultrasound 11/14/24 15:13 IMPRESSION: Highly suggestive cholecystitis with cholelithiasis and gallbladder sludge. Clinical correlation advised. Minimal ascites. Minimal right pleural effusion. Cholecystostomy 11/15/24 16:04 IMPRESSION: 1. Successful ultrasound-guided cholecystostomy tube placement. 2. 13 mL bile was sent for aerobic, anaerobic, and fungal cultures. 3. The catheter will be managed by Dr. Ortiz. A catheter cholangiogram may be performed not less than 48 hours after tube placement if clinically indicated to assess cystic duct patency. If cholecystectomy is not eventually performed and the infectious episode has resolved, the tube may be removed over a guidewire, preferably not less than 3 weeks after placement to allow time for a mature catheter tract to form to prevent bile leakage and peritonitis. Chest X-Ray 11/19/24 08:55 Impression: Clear lungs. Right-sided PICC line in place. Abdomen/Pelvis CT 11/19/24 16:10 IMPRESSION: Rim-enhancing fluid collection within the right mid to upper abdomen measuring 8.5 cm in greatest dimension, for which intra-abdominal abscess is suspected. Percutaneous cholecystostomy catheter in good position with persistent cystic duct obstruction. Trace intra-abdominal ascites within the left mid to upper abdomen and within the pelvis. Labs Labs: Laboratory Results - last 24 hr 11/20/24 11/20/24 11/20/24 00:58 04:33 05:24 WBC 13.2 H RBC 3.10 L Hgb 9.2 L Hct 29.2 L MCV 94.2 MCH 29.7 MCHC 31.5 L RDW 18.5 H Plt Count 288 MPV 11.6 H Immature Gran % (Auto) 0.6 H Neut % (Auto) 63.7 Lymph % (Auto) 19.2 [place] % (Auto) 10.0 H Eos % (Auto) 6.0 H Baso % (Auto) 0.5 Lymph # (Auto) 2.53 [place] # (Auto) 1.3 H Eos # (Auto) 0.8 H Baso # (Auto) 0.1 Abs Immat Gran (auto) 0.08 H Absolute Neuts (auto) 8.4 H Absolute Nucleated RBC 0.000 Nucleated RBC % 0.0 Sodium 147 H Potassium 3.8 Chloride 115 H Carbon Dioxide 23 Anion Gap 9 BUN 14 Creatinine 0.71 Estim Creat Clear Calc 78 Estimated GFR > 60 Glucose 98 POC Capillary Glucose 121 H 90 Calcium 8.5 Magnesium 1.6 Total Bilirubin 1.0 AST 37 ALT 19 Alkaline Phosphatase 128 H Total Protein 7.0 Albumin 2.8 L 11/20/24 11:24 WBC RBC Hgb Hct MCV MCH MCHC RDW Plt Count MPV Immature Gran % (Auto) Neut % (Auto) Lymph % (Auto) [place] % (Auto) Eos % (Auto) Baso % (Auto) Lymph # (Auto) [place] # (Auto) Eos # (Auto) Baso # (Auto) Abs Immat Gran (auto) Absolute Neuts (auto) Absolute Nucleated RBC Nucleated RBC % Sodium Potassium Chloride Carbon Dioxide Anion Gap BUN Creatinine Estim Creat Clear Calc Estimated GFR Glucose POC Capillary Glucose 88 Calcium Magnesium Total Bilirubin AST ALT Alkaline Phosphatase Total Protein Albumin
--- NOTE | 2024-11-20 15:37 | P.PNIM_ITS ---
Progress Note: A&P Assessment and Plan (1) Shock: Code(s): R57.9 - Shock, unspecified Status: Acute Assessment and Plan: Patient initially presented with septic shock Now patient has developed new hypotension 11/08/2024. Suspect aspiration pneumonia versus UTI as patient has had Michelle for more than 2 weeks., or persistent C diff infection CT chest abdomen pelvis ABDOMEN/PELVIS: 1. Free air is seen anteriorly around the liver with minimal fluid. 2. Significant ascites in the pelvis. Drainage tube is seen in the left side of the pelvis. 3. Cholelithiasis with thickened wall of the gallbladder. Evaluation for cholecystitis advised. 4. Slightly dilated small bowel loops in the left upper abdomen which may indicate ileus follow-up advised. 5. Right renal cysts Blood, sputum culture culture are negative till now Michelle changed and UA sent procalcitonin level 8.2 Continue Dificid and meropenem Patient was given IV fluid bolus and now off of IV fluids Off 25% albumin Off Levophed infusion Blood pressure fluctuating. But more stable now 11/14/2024 worsened leukocytosis with hypotension up to 28 K. Meropenem and vancomycin added. Ultrasound with cholecystitis now status post cholecystostomy tube placement 11/15/2024. Continue meropenem. Fluid culture with Gram-positive cocci in chains on anaerobic culture. Aerobic culture no growth to date. Will continue meropenem 11/19/2024: Intermittent fever starts. Chest x-ray with clear lungs right- sided PICC line in place. Urinalysis negative. Blood culture x2 obtained. Vancomycin 11/14 to 11/19 will stop Continue meropenem 11/08-continued Repeat CT 11/19 with rim enhancing fluid collection within the right mid to upper abdomen measuring 8.5 cm in greatest dimension likely intra-abdominal abscess. Persistent cystic duct obstruction Plan for catheter placement per IR today (2) Metabolic encephalopathy: Code(s): G93.41 - Metabolic encephalopathy Status: Acute Assessment and Plan: Patient has had Altered mental status since admission which has been multifac torial Patient was evaluated by Neurology and suspected to have metabolic encephalopathy. -CT brain on presented was negative for intracranial abnormalities. Repeat CT scan 11/08 also unremarkable -MRI cannot be performed as patient was in the [place] and may have sharpnel exposure according to his daughter -10/19: Repeat CT brain did not show any acute intracranial hemorrhage or suspicious mass effect, inflammatory sinus disease. -10/19: CT facial bones showed extensive sinus disease with near complete opacification of the right maxillary sinus and dependently layering fluid in the bilateral sphenoid sinuses. Dental and periodontal disease with periapical lucency surrounding the posterior most remaining right maxillary molar His ammonia level was normal Patient had LP on 10/31 and and only abnormality seen was elevated protein viral studies are pending (3) Acute kidney injury: Code(s): N17.9 - Acute kidney failure, unspecified Status: Acute Assessment and Plan: ICU: Patient presented with Acute kidney injury which improved with IV fluids Now the creatinine has again went up I suspect this is due to hypovolemia and sepsis Fully replaced CT scan reviewed Patient was given IV fluids and creatinine improving. Hold further IV fluid Although his intake and output show that he is significantly volume overloaded. He has had FMS with diarrhea which makes I&Os inaccurate. He does have minimal edema on exam Nephrology following Monitor urine output electrolytes and creatinine CK level is normal Earlier in the course CT scan of the abdomen and pelvis did not show any hydronephrosis or stones and renal ultrasound also showed No hydronephrosis or renal calculi, no apparent, findings to suggest the presence of medical renal disease. Simple cyst within the right kidney ALEJANDRO has now resolved (4) Anemia: Code(s): D64.9 - Anemia, unspecified Status: Acute Assessment and Plan: in ICU: Patient was anemic on presentation and received 2 units of PRBC. He was evaluate by Hematology Stool culture was negative and vitamin B12 were normal Folic acid was low and was supplement -iron panel was unremarkable He had EGD on 11/01 which showed gastritis and previous gastric surgery Hemoglobin dropped to 5.2 which could be partially dilutional versus GI loss 11/09 Transfuse 2 units PRBC Hold Lovenox and use SCDs Continue protonix Monitor hemoglobin (5) Thrombocytopenia: Code(s): D69.6 - Thrombocytopenia, unspecified Status: Acute Assessment and Plan: Thrombocytopenia that patient initially presented with has improved High platelet count at this time suggest hemoconcentration (6) Hyperkalemia: Code(s): E87.5 - Hyperkalemia Status: Acute Assessment and Plan: Hyperkalemia with ALEJANDRO Calcium gluconate, insulin and D50, bicarb received Lokelma in ICU IV fluid bolus Now resolved (7) C. difficile diarrhea: Code(s): A04.72 - Enterocolitis due to Clostridium difficile, not specified as recurrent Status: Acute Assessment and Plan: Continue Dificid. Diarrhea improved. DC IV Flagyl CT abdomen pelvis reviewed (8) Acute respiratory failure: Code(s): J96.00 - Acute respiratory failure, unspecified whether with hypoxia or hypercapnia Status: Acute Assessment and Plan: improved Plan J-tube feeding started. Advance as tolerated Subjective Date/time seen: 11/20/24 15:37 Interval history: Sam has been admitted for septic shock pn 10/17 started on Levophed and admitted to ICU. T chest abdomen pelvis with no acute findings. Face CT with extensive sinus disease with near complete opacification of the right maxillary sinus and dependently layering fluid in the bilateral sphenoid sinuses. paitent was getting better. off Levophed on 10/18 Initially was on Cefepime and vancomycin but it was discontinued as there was no source on infection and neg blood cultre. on 10/19 patient had fever started on Rocephin for possible UTI vs sinusitis. C diff was positive on 10/22/24 started on Vancomycin and concluded on 11/01/24 AMS; MRI/Ct/EEG unremarkable except for sinusitis. Lumbar puncture 10/31/2024 with mildly elevated opening pressure of 23 cm water CSF with high-protein patient also had Alejandro and rhabdomyolysis which received IVF. Patient also had pancytopenia. Hematology oncology on board. Platelet improved. patient failed barium swallow . surgery team was consulted underwent Peg tube placement on 11/07/21 rapid response was called on 11/08/24 because of respiratory failure, hypotension, lactic acidosis. Patient was intubated and admitted to ICU.Ct concerning for cholecystitis and ileus. surgery team on board recommended to monitor patient has been on Dificid and meropenem patient gradually improving was transferred out of ICU 11/13/24 11/14/24 patient has been hypotensive and tachycardic this morning. receive IVF bolus. I saw and examined patient bedside. geovanna any chest pain, SOb, abd pain,N/V. Patient had worsening leukocytosis. Also has Alejandro I lactic acid 2.5, magnesium 1 .4. treatment started for severe sepsis. Will give IV fluid. Continue with meropenem. Vancomycin was added. Surgery team on board. Plan for right upper quadrant ultrasound to evaluate cholecystitis. Blood cultures pending 11/15/24 Patient was seen and examined at bedside. awake but not following/answering questions. hypotension improved .WBC improving US showed cholecystitis. plan for cholecystostomy tube placement. 11/16/2024 No overnight events. Discussed with nursing staff. Awake follow some commands. Labs reviewed. Status post cholecystostomy tube placed. 11/17/2024: No events. Patient remains afebrile. Labs reviewed. Discussed with nursing staff. 11/18/2024: No overnight events. J-tube feeding has been started. At 20 cc an hour. NG in place. 11/19/2024: Mild grade fever noted off and on. Blood culture obtained. He is more alert and awake and interactive otherwise clinically improving. Liquid stool in bag. 11/20/2024: Mild fever persist. CT findings reviewed. Going for CT catheter placement today. Awake alert and interactive. Labs reviewed. Discussed with nursing staff. Review of Systems Review of Systems: All systems reviewed & are unremarkable except as noted in HPI and below ( Limited, A&O x1, unreliable) Exam Narrative: General: Patient is awake,, not in any distress Lungs/Chest: Trachea central Coarse BS B/L, few crackles on the left base Cardiac: RRR. Normal S1 S2. No murmurs Circulation: Pedal pulses are intact and symmetrical. Abdomen: Present bowel sounds. Midline incision is under dressing Soft. NT. ND. J tube in place. Cholecystostomy tube in place Extremities: Patient has some edema bilaterally in lower extremity : Michelle in place Neurologic: Patient is awake, follows some commands Objective Data Vital Signs Vital Signs: Vital Signs - 24 hr 11/19/24 15:52 11/19/24 20:00 11/19/24 21:29 Temperature 99.6 F 99.7 F H Pulse Rate 98 95 Respiratory Rate 20 24 H Blood Pressure 110/76 121/67 Pulse Oximetry 98 100 Oxygen Delivery Room Air Oxygen Flow Rate 11/20/24 04:28 11/20/24 07:51 11/20/24 10:15 Temperature 99.7 F H 98.2 F Pulse Rate 95 94 92 Respiratory Rate 24 H 18 20 Blood Pressure 132/74 123/78 123/74 Pulse Oximetry 98 97 100 Oxygen Delivery Nasal Cannula Oxygen Flow Rate 2 11/20/24 10:20 11/20/24 10:25 11/20/24 10:30 Temperature Pulse Rate 93 92 90 Respiratory Rate 19 22 H 24 H Blood Pressure 125/75 134/72 129/78 Pulse Oximetry 100 100 100 Oxygen Delivery Nasal Cannula Nasal Cannula Nasal Cannula Oxygen Flow Rate 2 2 2 11/20/24 10:35 11/20/24 10:40 11/20/24 10:40 Temperature Pulse Rate 90 89 Respiratory Rate 19 26 H Blood Pressure 136/70 123/71 Pulse Oximetry 100 100 Oxygen Delivery Nasal Cannula Nasal Cannula Room Air Oxygen Flow Rate 2 2 11/20/24 10:45 11/20/24 10:50 11/20/24 10:55 Temperature Pulse Rate 91 88 89 Respiratory Rate 20 26 H 23 H Blood Pressure 129/74 121/75 130/75 Pulse Oximetry 100 100 100 Oxygen Delivery Nasal Cannula Nasal Cannula Nasal Cannula Oxygen Flow Rate 2 2 2 Intake/Output Intake/Output: Intake & Output 11/17/24 11/18/24 11/19/24 11/20/24 23:59 23:59 23:59 23:59 Intake Total 450 1614 1048 658 Output Total 925 1050 750 800 Balance -475 564 298 -142 Meds/Results Medications: Active Medications Generic Name Dose Route Start Last Admin Trade Name Freq PRN Reason Stop Dose Admin Acetaminophen 650 mg 11/13/24 21:07 11/19/24 03:09 Acetaminophen Elixir 325 Mg/10.15 Ml Udc FEED TUBE 650 mg Q6H PRN Administration Fever >101 Allopurinol 100 mg 11/15/24 09:00 11/20/24 11:23 Allopurinol 100 Mg Tablet FEED TUBE 100 mg DAILY JHONY Administration Alteplase, Recombinant 2 mg 11/20/24 13:51 11/20/24 14:30 Alteplase 2 Mg Vial (Cathflo) IV PUSH 2 mg ONCE PRN Administration Line Occlusion Amlodipine Besylate 10 mg 11/19/24 10:00 11/20/24 11:23 Amlodipine Besylate 10 Mg Tablet FEED TUBE 10 mg DAILY JHONY Administration Aspirin 81 mg 11/04/24 08:00 11/20/24 11:24 Aspirin 81 Mg Chewable Tablet FEED TUBE 81 mg DAILY@0800 JHONY Administration Carvedilol 12.5 mg 11/14/24 10:02 11/14/24 14:58 Carvedilol 12.5 Mg Tablet PO Not Given BID JHONY Collagenase 1 applic 11/13/24 09:00 11/20/24 11:34 Collagenase Oint 30 Gm Tube TOPICAL 1 applic Q12HR JHONY Administration Dextrose 12.5 gm 10/17/24 21:26 10/30/24 05:55 Dextrose 50% 25 Gm/50 Ml Syringe IV PUSH 12.5 gm PRN PRN Administration Hypoglycemia Protocol Enoxaparin Sodium 40 mg 11/02/24 09:00 11/09/24 08:18 Enoxaparin 40 Mg/0.4 Ml Syringe SUB-Q 40 mg DAILY JHONY Administration Folic Acid 1 mg 10/24/24 09:00 11/20/24 11:23 Folic Acid 1 Mg Tablet FEED TUBE 1 mg QAM JHONY Administration Glucagon 1 mg 10/17/24 21:26 Glucagon For Inj 1 Mg Vial IM PRN PRN Hypoglycemia Protocol Glucose 15 gm 11/13/24 21:07 Glucose Oral Gel 15 Gm Of Glucse In 37.5 Gm Tube FEED TUBE PRN PRN Hypoglycemia Protocol Dextrose 1,000 mls @ 100 mls/hr 10/17/24 21:26 Dextrose 5% 1,000 Ml IVPB PRN PRN Hypoglycemia Protocol Meropenem 1 gm in 100 mls @ 200 mls/hr 11/19/24 17:00 11/20/24 15:05 IVPB Infused Q8HR JHONY Infusion Insulin Aspart 3 - 6 units 11/08/24 12:00 11/20/24 11:46 Insulin Aspart (*Bkc) 100 Units/Ml SUB-Q Not Given Q6HR JHONY Protocol Pantoprazole Sodium 40 mg 11/19/24 09:00 11/20/24 11:21 Pantoprazole Sodium Iv 40 Mg Vial IV PUSH 40 mg QAM JHONY Administration Rosuvastatin Calcium 10 mg 11/04/24 09:00 11/20/24 11:23 Rosuvastatin 10 Mg Tablet FEED TUBE 10 mg DAILY JHONY Administration Saccharomyces Boulardii 250 mg 11/14/24 09:00 11/20/24 11:23 Saccharomyces Boulardii 250 Mg Capsule FEED TUBE 250 mg DAILY JHONY Administration Sodium Chloride 10 ml 11/08/24 14:00 11/20/24 14:28 Central Line Flush IV PUSH 10 ml Q8HR JHONY Administration Sodium Chloride 10 ml 11/08/24 08:15 Central Line Flush IV PUSH PRN PRN with TPN bag changes Sodium Chloride 20 ml 11/08/24 08:15 11/11/24 06:50 Central Line Flush IV PUSH 20 ml PRN PRN Administration after blood draws Thiamine HCl 100 mg 10/24/24 09:00 11/20/24 11:23 Thiamine Hcl 100 Mg Tablet FEED TUBE 100 mg QAM JHONY Administration Radiology Results: ITS Impressions Face CT 10/19/24 09:39 IMPRESSION: 1. Extensive sinus disease with near complete opacification of the right maxillary sinus and dependently layering fluid in the bilateral sphenoid sinuses. Correlate clinically for acute sinusitis. 2. Dental and periodontal disease with periapical lucency surrounding the posterior most remaining right maxillary molar. Renal Ultrasound 10/19/24 09:48 IMPRESSION: No hydronephrosis or renal calculi. No parenchymal findings to suggest the presence of medical renal disease. Simple cysts within the right kidney, for which no further follow-up is needed. Brain MRI 10/24/24 14:22 IMPRESSION: 1. Age-related changes the brain. No acute intracranial process. 2. Prominent sinus disease with fluid nearly filling the right maxillary sinus and layering dependently in the bilateral sphenoid sinuses. Correlate clinically for acute sinusitis. Lumbar Puncture Fluoroscopy 10/31/24 17:34 IMPRESSION: 1. Successful fluoro-guided lumbar puncture with mildly elevated opening pressure of 23 cm water. Modified Barium Swallow 11/06/24 10:05 IMPRESSION: Nondiagnostic study as all contents either leaked or were actively expelled from the mouth. No swallows were able to be evaluated. Please correlate with speech pathologist findings and specific feeding recommendations. Abdomen X-Ray 11/08/24 07:55 Impression: NG tube in satisfactory position. Probable small bowel obstruction. Chest/Abdomen/Pelvis CT 11/08/24 09:59 IMPRESSION: CHEST: 1. Right basilar atelectasis versus pneumonia with pleural effusion. 2. No other acute cardiopulmonary pathology. ABDOMEN/PELVIS: 1. Free air is seen anteriorly around the liver with minimal fluid. 2. Significant ascites in the pelvis. Drainage tube is seen in the left side of the pelvis. 3. Cholelithiasis with thickened wall of the gallbladder. Evaluation for cholecystitis advised. 4. Slightly dilated small bowel loops in the left upper abdomen which may indicate ileus follow-up advised. 5. Right renal cysts. Upper GI Series 11/09/24 13:49 IMPRESSION: 1. Left lower quadrant jejunostomy tube in expected position with injected contrast opacifying the normal-appearing jejunum with no extraluminal leakage of contrast. Head CT 11/14/24 05:17 Impression: No intracranial hemorrhage, mass, or acute infarct. Atrophy and chronic white matter changes, as above. Abdomen Ultrasound 11/14/24 15:13 IMPRESSION: Highly suggestive cholecystitis with cholelithiasis and gallbladder sludge. Clinical correlation advised. Minimal ascites. Minimal right pleural effusion. Cholecystostomy 11/15/24 16:04 IMPRESSION: 1. Successful ultrasound-guided cholecystostomy tube placement. 2. 13 mL bile was sent for aerobic, anaerobic, and fungal cultures. 3. The catheter will be managed by Dr. Ortiz. A catheter cholangiogram may be performed not less than 48 hours after tube placement if clinically indicated to assess cystic duct patency. If cholecystectomy is not eventually performed and the infectious episode has resolved, the tube may be removed over a guidewire, preferably not less than 3 weeks after placement to allow time for a mature catheter tract to form to prevent bile leakage and peritonitis. Chest X-Ray 11/19/24 08:55 Impression: Clear lungs. Right-sided PICC line in place. Abdomen/Pelvis CT 11/19/24 16:10 IMPRESSION: Rim-enhancing fluid collection within the right mid to upper abdomen measuring 8.5 cm in greatest dimension, for which intra-abdominal abscess is suspected. Percutaneous cholecystostomy catheter in good position with persistent cystic duct obstruction. Trace intra-abdominal ascites within the left mid to upper abdomen and within the pelvis. Labs Labs: Laboratory Results - last 24 hr 11/20/24 11/20/24 11/20/24 00:58 04:33 05:24 WBC 13.2 H RBC 3.10 L Hgb 9.2 L Hct 29.2 L MCV 94.2 MCH 29.7 MCHC 31.5 L RDW 18.5 H Plt Count 288 MPV 11.6 H Immature Gran % (Auto) 0.6 H Neut % (Auto) 63.7 Lymph % (Auto) 19.2 [place] % (Auto) 10.0 H Eos % (Auto) 6.0 H Baso % (Auto) 0.5 Lymph # (Auto) 2.53 [place] # (Auto) 1.3 H Eos # (Auto) 0.8 H Baso # (Auto) 0.1 Abs Immat Gran (auto) 0.08 H Absolute Neuts (auto) 8.4 H Absolute Nucleated RBC 0.000 Nucleated RBC % 0.0 Sodium 147 H Potassium 3.8 Chloride 115 H Carbon Dioxide 23 Anion Gap 9 BUN 14 Creatinine 0.71 Estim Creat Clear Calc 78 Estimated GFR > 60 Glucose 98 POC Capillary Glucose 121 H 90 Calcium 8.5 Magnesium 1.6 Total Bilirubin 1.0 AST 37 ALT 19 Alkaline Phosphatase 128 H Total Protein 7.0 Albumin 2.8 L 11/20/24 11:24 WBC RBC Hgb Hct MCV MCH MCHC RDW Plt Count MPV Immature Gran % (Auto) Neut % (Auto) Lymph % (Auto) [place] % (Auto) Eos % (Auto) Baso % (Auto) Lymph # (Auto) [place] # (Auto) Eos # (Auto) Baso # (Auto) Abs Immat Gran (auto) Absolute Neuts (auto) Absolute Nucleated RBC Nucleated RBC % Sodium Potassium Chloride Carbon Dioxide Anion Gap BUN Creatinine Estim Creat Clear Calc Estimated GFR Glucose POC Capillary Glucose 88 Calcium Magnesium Total Bilirubin AST ALT Alkaline Phosphatase Total Protein Albumin
[2024-11-21 04:11] VITALS: BP 125/67; PULSE 98; RESP 16; TEMP 37.4; O2SAT 99
[2024-11-21] MEDS: CENTRAL LINE FLUSH 10 ML IV PUSH ×3 (05:22→21:46)
[2024-11-21] MEDS: MEROPENEM 1 GM/NS 100 ML 1 GM/100 ML BAG IVPB ×3 (05:22→21:47)
[2024-11-21 05:45] LABS: Hematocrit 27.9 % (42.0-52.0); Hemoglobin 8.7 g/dL (14.0-18.0); Immature Granulocyte Percent A 0.6 % (0-0.5); Lymphocytes Absolute Auto 2.10 K/mm3 (0.9-3.2); Mean Corpuscular HGB Conc 31.2 g/dl (32-36); Mean Corpuscular Hemoglobin 29.3 pg (26-34); Mean Corpuscular Volume 93.9 fl (80-100); Nucleated Red Blood Cells Absolute Auto 0.000 K/mm3 (0.0-0.012); Nucleated Red Blood Cells Perc 0.0 % (0.0-0.2); Platelet Count Result 306 k/mm3 (150-375); Red Blood Count 2.97 M/mm3 (4.6-6.20); White Blood Count 10.8 K/mm3 (4.5-10.0)
[2024-11-21 05:56] LABS: Alanine Aminotransferase 19 U/L (6-50); Albumin Level 2.7 g/dL (3.5-5.1); Alkaline Phosphatase 130 U/L (38-126); Anion Gap 8 mmol/L (4-12); Aspartate Amino Transferase 36 U/L (17-59); Bilirubin,Total 0.8 mg/dL (0.2-1.3); Blood Urea Nitrogen 15 mg/dL (9-20); Calcium 8.5 mg/dL (8.4-10.2); Carbon Dioxide 24 mmol/L (22-30); Chloride 114 mmol/L (98-107); Estimated CRCL calculation 82 ml/min; Estimated Glomerular Filt Rate > 60; Glucose 114 mg/dL (65-110); Magnesium 1.6 mg/dL (1.6-2.3); Potassium 3.8 mmol/L (3.4-5.0); Sodium 146 mmol/L (137-145); Total Protein 6.6 g/dL (6.3-8.2)
[2024-11-21] MEDS: SACCHAROMYCES BOULARDII 250 MG CAPSULE FEED TUBE (08:43)
[2024-11-21] MEDS: ASPIRIN 81 MG CHEWABLE TABLET FEED TUBE (08:43)
[2024-11-21] MEDS: ROSUVASTATIN 10 MG TABLET FEED TUBE (08:43)
[2024-11-21] MEDS: FOLIC ACID 1 MG TABLET FEED TUBE (08:43)
[2024-11-21] MEDS: THIAMINE HCL 100 MG TABLET FEED TUBE (08:43)
[2024-11-21] MEDS: COLLAGENASE OINT 30 GM TUBE 1 APPLIC TOPICAL ×2 (08:44→21:46)
--- NOTE | 2024-11-21 08:50 | PM.PNGS ---
Progress Note: A&P Assessment and Plan (1) Cholelithiasis and acute cholecystitis without obstruction: Code(s): K80.00 - Calculus of gallbladder with acute cholecystitis without obstruction Status: Acute Assessment and Plan: S/p cholecystostomy tube placement. CT cholangiogram showed an occluded cystic duct and a right-sided intraabdominal fluid collection. The cholecystostomy tube was difficult to flush initially during cholangiogram, but was patent after flushing. Spoke with nursing staff today and they are continuing q12 flushes with 10cc normal saline to maintain patency. (2) Intra-abdominal abscess: Code(s): K65.1 - Peritoneal abscess Status: Acute Assessment and Plan: Right mid to upper abdominal fluid collection measuring up to 8.5 cm, concerning for abscess. This could be contributing to his intermittent fevers. Drain with dark red bloody output, likely hematoma. Cultures still pending. Continue IV antibiotics and tailor to cultures. Nursing to flush the perc drain with 10 cc NS every 12 hours. (3) Unable to eat: Code(s): R63.8 - Other symptoms and signs concerning food and fluid intake Status: Acute Assessment and Plan: Jejunostomy tube in place and functioning well. No evidence of complications or leakage on any imaging studies. (4) History of jejunostomy tube placement: Status: Acute Assessment and Plan: Wound healing well, no problems with J-tube. Tolerating tube feedings. Plan I have discussed the patient's case and plan of care with Dr. Ortiz. Subjective Subjective Date/Time Seen: 11/21/24 08:50 Patient reports: no new complaints Interval history: Patient lethargic and obtunded, but able to arouse with some physical and verbal stimuli. No changes overnight. Perc drain placed yesterday in IR. Dark red output in the bag. Leigh tube still in place and draining minimal dark brown fluid. Exam Const: General: ill appearing, lethargic and tired appearing GI: Inspection: non-distended, incision (Dry and healing well, no erythema), scaphoid, scar (Large upper abdominal midline scar as before) and other (Cholecystostomy tube in place, draining bile) Other: Right upper quadrant cholecystostomy tube with scant bilious drainage Percutaneous drain with bloody output Midline incision healing well with no erythema or drainage Jejunostomy tube in place with gauze dressing dry and intact Objective Data Vital Signs Vital Signs: Vital Signs - 24 hr 11/20/24 10:15 11/20/24 10:20 11/20/24 10:25 Temperature Pulse Rate 92 93 92 Respiratory Rate 20 19 22 H Blood Pressure 123/74 125/75 134/72 Pulse Oximetry 100 100 100 Oxygen Delivery Nasal Cannula Nasal Cannula Nasal Cannula Oxygen Flow Rate 2 2 2 Fraction of Inspired Oxygen 11/20/24 10:30 11/20/24 10:35 11/20/24 10:40 Temperature Pulse Rate 90 90 89 Respiratory Rate 24 H 19 26 H Blood Pressure 129/78 136/70 123/71 Pulse Oximetry 100 100 100 Oxygen Delivery Nasal Cannula Nasal Cannula Nasal Cannula Oxygen Flow Rate 2 2 2 Fraction of Inspired Oxygen 11/20/24 10:40 11/20/24 10:45 11/20/24 10:50 Temperature Pulse Rate 91 88 Respiratory Rate 20 26 H Blood Pressure 129/74 121/75 Pulse Oximetry 100 100 Oxygen Delivery Room Air Nasal Cannula Nasal Cannula Oxygen Flow Rate 2 2 Fraction of Inspired Oxygen 11/20/24 10:55 11/20/24 16:00 11/20/24 19:38 Temperature 98.4 F 99.3 F Pulse Rate 89 91 92 Respiratory Rate 23 H 16 16 Blood Pressure 130/75 111/68 118/67 Pulse Oximetry 100 100 99 Oxygen Delivery Nasal Cannula Oxygen Flow Rate 2 Fraction of Inspired Oxygen 11/20/24 20:00 11/21/24 04:11 Temperature 99.4 F Pulse Rate 92 98 Respiratory Rate 16 16 Blood Pressure 125/67 Pulse Oximetry 99 99 Oxygen Delivery Room Air Oxygen Flow Rate Fraction of Inspired Oxygen 28 Intake/Output Intake/Output: Intake & Output 11/18/24 11/19/24 11/20/24 11/21/24 23:59 23:59 23:59 23:59 Intake Total 1614 1048 1183 0 Output Total 0568 248 2569 350 Balance 561 583 -97 350 Meds/Results Medications: Active Medications Generic Name Dose Route Start Last Admin Trade Name Freq PRN Reason Stop Dose Admin Acetaminophen 650 mg 11/13/24 21:07 11/19/24 03:09 Acetaminophen Elixir 325 Mg/10.15 Ml Udc FEED TUBE 650 mg Q6H PRN Administration Fever >101 Allopurinol 100 mg 11/15/24 09:00 11/21/24 08:43 Allopurinol 100 Mg Tablet FEED TUBE 100 mg DAILY JHONY Administration Alteplase, Recombinant 2 mg 11/20/24 13:51 11/20/24 14:30 Alteplase 2 Mg Vial (Cathflo) IV PUSH 2 mg ONCE PRN Administration Line Occlusion Amlodipine Besylate 10 mg 11/19/24 10:00 11/21/24 08:43 Amlodipine Besylate 10 Mg Tablet FEED TUBE 10 mg DAILY HJONY Administration Aspirin 81 mg 11/04/24 08:00 11/21/24 08:43 Aspirin 81 Mg Chewable Tablet FEED TUBE 81 mg DAILY@0800 JHONY Administration Carvedilol 12.5 mg 11/14/24 10:02 11/14/24 14:58 Carvedilol 12.5 Mg Tablet PO Not Given BID [facility] Collagenase 1 applic 11/13/24 09:00 11/21/24 08:44 Collagenase Oint 30 Gm Tube TOPICAL 1 applic Q12HR JHONY Administration Dextrose 12.5 gm 10/17/24 21:26 10/30/24 05:55 Dextrose 50% 25 Gm/50 Ml Syringe IV PUSH 12.5 gm PRN PRN Administration Hypoglycemia Protocol Enoxaparin Sodium 40 mg 11/02/24 09:00 11/09/24 08:18 Enoxaparin 40 Mg/0.4 Ml Syringe SUB-Q 40 mg DAILY JHONY Administration Folic Acid 1 mg 10/24/24 09:00 11/21/24 08:43 Folic Acid 1 Mg Tablet FEED TUBE 1 mg QAM JHONY Administration Glucagon 1 mg 10/17/24 21:26 Glucagon For Inj 1 Mg Vial IM PRN PRN Hypoglycemia Protocol Glucose 15 gm 11/13/24 21:07 Glucose Oral Gel 15 Gm Of Glucse In 37.5 Gm Tube FEED TUBE PRN PRN Hypoglycemia Protocol Dextrose 1,000 mls @ 100 mls/hr 10/17/24 21:26 Dextrose 5% 1,000 Ml IVPB PRN PRN Hypoglycemia Protocol Meropenem 1 gm in 100 mls @ 200 mls/hr 11/19/24 17:00 11/21/24 05:22 IVPB 200 mls/hr Q8HR JHONY Administration Insulin Aspart 3 - 6 units 11/08/24 12:00 11/21/24 05:40 Insulin Aspart (*Bkc) 100 Units/Ml SUB-Q Not Given Q6HR [facility] Protocol Pantoprazole Sodium 40 mg 11/19/24 09:00 11/20/24 11:21 Pantoprazole Sodium Iv 40 Mg Vial IV PUSH 40 mg QAM JHONY Administration Rosuvastatin Calcium 10 mg 11/04/24 09:00 11/21/24 08:43 Rosuvastatin 10 Mg Tablet FEED TUBE 10 mg DAILY JHONY Administration Saccharomyces Boulardii 250 mg 11/14/24 09:00 11/21/24 08:43 Saccharomyces Boulardii 250 Mg Capsule FEED TUBE 250 mg DAILY JHONY Administration Sodium Chloride 10 ml 11/08/24 14:00 11/21/24 05:22 Central Line Flush IV PUSH 10 ml Q8HR JHONY Administration Sodium Chloride 10 ml 11/08/24 08:15 Central Line Flush IV PUSH PRN PRN with TPN bag changes Sodium Chloride 20 ml 11/08/24 08:15 11/11/24 06:50 Central Line Flush IV PUSH 20 ml PRN PRN Administration after blood draws Thiamine HCl 100 mg 10/24/24 09:00 11/21/24 08:43 Thiamine Hcl 100 Mg Tablet FEED TUBE 100 mg QAM JHONY Administration Radiology Results: ITS Impressions Face CT 10/19/24 09:39 IMPRESSION: 1. Extensive sinus disease with near complete opacification of the right maxillary sinus and dependently layering fluid in the bilateral sphenoid sinuses. Correlate clinically for acute sinusitis. 2. Dental and periodontal disease with periapical lucency surrounding the posterior most remaining right maxillary molar. Renal Ultrasound 10/19/24 09:48 IMPRESSION: No hydronephrosis or renal calculi. No parenchymal findings to suggest the presence of medical renal disease. Simple cysts within the right kidney, for which no further follow-up is needed. Brain MRI 10/24/24 14:22 IMPRESSION: 1. Age-related changes the brain. No acute intracranial process. 2. Prominent sinus disease with fluid nearly filling the right maxillary sinus and layering dependently in the bilateral sphenoid sinuses. Correlate clinically for acute sinusitis. Lumbar Puncture Fluoroscopy 10/31/24 17:34 IMPRESSION: 1. Successful fluoro-guided lumbar puncture with mildly elevated opening pressure of 23 cm water. Modified Barium Swallow 11/06/24 10:05 IMPRESSION: Nondiagnostic study as all contents either leaked or were actively expelled from the mouth. No swallows were able to be evaluated. Please correlate with speech pathologist findings and specific feeding recommendations. Abdomen X-Ray 11/08/24 07:55 Impression: NG tube in satisfactory position. Probable small bowel obstruction. Chest/Abdomen/Pelvis CT 11/08/24 09:59 IMPRESSION: CHEST: 1. Right basilar atelectasis versus pneumonia with pleural effusion. 2. No other acute cardiopulmonary pathology. ABDOMEN/PELVIS: 1. Free air is seen anteriorly around the liver with minimal fluid. 2. Significant ascites in the pelvis. Drainage tube is seen in the left side of the pelvis. 3. Cholelithiasis with thickened wall of the gallbladder. Evaluation for cholecystitis advised. 4. Slightly dilated small bowel loops in the left upper abdomen which may indicate ileus follow-up advised. 5. Right renal cysts. Upper GI Series 11/09/24 13:49 IMPRESSION: 1. Left lower quadrant jejunostomy tube in expected position with injected contrast opacifying the normal-appearing jejunum with no extraluminal leakage of contrast. Head CT 11/14/24 05:17 Impression: No intracranial hemorrhage, mass, or acute infarct. Atrophy and chronic white matter changes, as above. Abdomen Ultrasound 11/14/24 15:13 IMPRESSION: Highly suggestive cholecystitis with cholelithiasis and gallbladder sludge. Clinical correlation advised. Minimal ascites. Minimal right pleural effusion. Cholecystostomy 11/15/24 16:04 IMPRESSION: 1. Successful ultrasound-guided cholecystostomy tube placement. 2. 13 mL bile was sent for aerobic, anaerobic, and fungal cultures. 3. The catheter will be managed by Dr. Ortiz. A catheter cholangiogram may be performed not less than 48 hours after tube placement if clinically indicated to assess cystic duct patency. If cholecystectomy is not eventually performed and the infectious episode has resolved, the tube may be removed over a guidewire, preferably not less than 3 weeks after placement to allow time for a mature catheter tract to form to prevent bile leakage and peritonitis. Chest X-Ray 11/19/24 08:55 Impression: Clear lungs. Right-sided PICC line in place. Abdomen/Pelvis CT 11/19/24 16:10 IMPRESSION: Rim-enhancing fluid collection within the right mid to upper abdomen measuring 8.5 cm in greatest dimension, for which intra-abdominal abscess is suspected. Percutaneous cholecystostomy catheter in good position with persistent cystic duct obstruction. Trace intra-abdominal ascites within the left mid to upper abdomen and within the pelvis. Catheter Placement CT 11/20/24 17:00 IMPRESSION: Technically successful CT-guided 10 [place] drainage catheter placement within a (likely)perioperative infected hematoma, as detailed above. Specimen was sent for the culture evaluation. The catheter will need to be forwarded flushed (towards the patient and towards the drainage catheter) twice daily with 10 cc of normal saline. Labs Labs: Laboratory Results - last 24 hr 11/20/24 11/20/24 11/20/24 11:24 17:47 23:59 WBC RBC Hgb Hct MCV MCH MCHC RDW Plt Count MPV Immature Gran % (Auto) Neut % (Auto) Lymph % (Auto) [place] % (Auto) Eos % (Auto) Baso % (Auto) Lymph # (Auto) Frederick # (Auto) Eos # (Auto) Baso # (Auto) Abs Immat Gran (auto) Absolute Neuts (auto) Absolute Nucleated RBC Nucleated RBC % Sodium Potassium Chloride Carbon Dioxide Anion Gap BUN Creatinine Estim Creat Clear Calc Estimated GFR Glucose POC Capillary Glucose 88 113 H 104 Calcium Magnesium Total Bilirubin AST ALT Alkaline Phosphatase Total Protein Albumin 11/21/24 11/21/24 04:17 05:11 WBC 10.8 H RBC 2.97 L Hgb 8.7 L Hct 27.9 L MCV 93.9 MCH 29.3 MCHC 31.2 L RDW 18.5 H Plt Count 306 MPV 11.7 H Immature Gran % (Auto) 0.6 H Neut % (Auto) 63.9 Lymph % (Auto) 19.4 Frederick % (Auto) 9.6 H Eos % (Auto) 6.0 H Baso % (Auto) 0.5 Lymph # (Auto) 2.10 Frederick # (Auto) 1.0 H Eos # (Auto) 0.7 H Baso # (Auto) 0.1 Abs Immat Gran (auto) 0.06 H Absolute Neuts (auto) 6.9 H Absolute Nucleated RBC 0.000 Nucleated RBC % 0.0 Sodium 146 H Potassium 3.8 Chloride 114 H Carbon Dioxide 24 Anion Gap 8 BUN 15 Creatinine 0.69 L Estim Creat Clear Calc 82 Estimated GFR > 60 Glucose 114 H POC Capillary Glucose 121 H Calcium 8.5 Magnesium 1.6 Total Bilirubin 0.8 AST 36 ALT 19 Alkaline Phosphatase 130 H Total Protein 6.6 Albumin 2.7 L
[2024-11-21] MEDS: PANTOPRAZOLE SODIUM IV 40 MG VIAL IV PUSH (08:51)
[2024-11-21 15:10] VITALS: BP 115/73; PULSE 101; RESP 16; TEMP 37.2; O2SAT 99
--- NOTE | 2024-11-21 19:06 | P.PNIM_ITS ---
Progress Note: A&P Assessment and Plan (1) Shock: Code(s): R57.9 - Shock, unspecified Status: Acute Assessment and Plan: Patient initially presented with septic shock Patient has developed new hypotension 11/08/2024. Suspect aspiration pneumonia versus UTI as patient has had Michelle for more than 2 weeks., or persistent C diff infection CT chest abdomen pelvis ABDOMEN/PELVIS: 1. Free air is seen anteriorly around the liver with minimal fluid. 2. Significant ascites in the pelvis. Drainage tube is seen in the left side of the pelvis. 3. Cholelithiasis with thickened wall of the gallbladder. Evaluation for cholecystitis advised. 4. Slightly dilated small bowel loops in the left upper abdomen which may indicate ileus follow-up advised. 5. Right renal cysts Blood, sputum culture culture are negative till now Michelle changed and UA sent procalcitonin level 8.2 Continue Dificid and meropenem Patient was given IV fluid bolus and now off of IV fluids Off 25% albumin Off Levophed infusion Blood pressure fluctuating. But more stable now 11/14/2024 worsened leukocytosis with hypotension up to 28 K. Meropenem and vancomycin added. Ultrasound with cholecystitis now status post cholecystostomy tube placement 11/15/2024. Continue meropenem. Fluid culture with Gram-positive cocci in chains on anaerobic culture. Aerobic culture no growth to date. Will continue meropenem 11/19/2024: Intermittent fever starts. Chest x-ray with clear lungs right- sided PICC line in place. Urinalysis negative. Blood culture x2 obtained. Repeat CT 11/19 with rim enhancing fluid collection within the right mid to upper abdomen measuring 8.5 cm in greatest dimension likely intra-abdominal abscess. Persistent cystic duct obstruction. The small bowel of the right lower quadrant is also minimally distended and hyperemic. Free fluid within the pelvis, denser than one would expect for simple fluid with attenuation values of 20. IR for catheter placement 11/20. [place] to be an infected hematoma Cultures pending Vancomycin 11/14 to 11/19 Continue meropenem 11/08-continued (2) Metabolic encephalopathy: Code(s): G93.41 - Metabolic encephalopathy Status: Acute Assessment and Plan: Patient has had Altered mental status since admission which has been multifactorial Patient was evaluated by Neurology and suspected to have metabolic encephalopathy. -CT brain on presented was negative for intracranial abnormalities. Repeat CT scan 11/08 also unremarkable -MRI cannot be performed as patient was in the [employer] and may have sharpnel exposure according to his daughter -10/19: Repeat CT brain did not show any acute intracranial hemorrhage or suspicious mass effect, inflammatory sinus disease. -10/19: CT facial bones showed extensive sinus disease with near complete opacification of the right maxillary sinus and dependently layering fluid in the bilateral sphenoid sinuses. Dental and periodontal disease with periapical lucency surrounding the posterior most remaining right maxillary molar His ammonia level was normal Lumbar puncture 10/31/2024 with mildly elevated opening pressure of 23 cm water and high protein. 6 RBC/1 WBC with 100% lymphocytes. HSV II PCR negative. WNV negative. Monitor mental status to see if improves with drainage of infected hematoma (3) Acute kidney injury: Code(s): N17.9 - Acute kidney failure, unspecified Status: Acute Assessment and Plan: ICU: Patient presented with Acute kidney injury which improved with IV fluids Now the creatinine has again went up I suspect this is due to hypovolemia and sepsis Fully replaced CT scan reviewed Patient was given IV fluids and creatinine improving. Hold further IV fluid Although his intake and output show that he is significantly volume overloaded. He has had FMS with diarrhea which makes I&Os inaccurate. He does have minimal edema on exam Nephrology following Monitor urine output electrolytes and creatinine CK level is normal Earlier in the course CT scan of the abdomen and pelvis did not show any hydronephrosis or stones and renal ultrasound also showed No hydronephrosis or renal calculi, no apparent, findings to suggest the presence of medical renal disease. Simple cyst within the right kidney ALEJANDRO has now resolved (4) Anemia: Code(s): D64.9 - Anemia, unspecified Status: Acute Assessment and Plan: in ICU: Patient was anemic on presentation and received 2 units of PRBC. He was evaluate by Hematology Stool culture was negative and vitamin B12 were normal Folic acid was low and was supplement -iron panel was unremarkable He had EGD on 11/01 which showed gastritis and previous gastric surgery Hemoglobin dropped to 5.2 which could be partially dilutional versus GI loss 11/09 Transfuse 2 units PRBC Holding Lovenox and use SCDs Continue protonix Monitor hemoglobin Resume Lovenox when able (5) Thrombocytopenia: Code(s): D69.6 - Thrombocytopenia, unspecified Status: Acute Assessment and Plan: Thrombocytopenia related to sepsis; this has improved High platelet count at this time suggest hemoconcentration Resolved (6) Hyperkalemia: Code(s): E87.5 - Hyperkalemia Status: Acute Assessment and Plan: Hyperkalemia with ALEJANDRO Calcium gluconate, insulin and D50, bicarb received Lokelma in ICU IV fluid bolus Now resolved (7) C. difficile diarrhea: Code(s): A04.72 - Enterocolitis due to Clostridium difficile, not specified as recurrent Status: Acute Assessment and Plan: CT abdomen pelvis reviewed Diarrhea improved. IV Flagyl stopped 11/09 Dificid completed on 11/18. Monitor stool output (8) Acute respiratory failure: Code(s): J96.00 - Acute respiratory failure, unspecified whether with hypoxia or hypercapnia Status: Acute Assessment and Plan: Resolved Plan DVT Prophylaxis - SCDs Code status - Full Subjective Date/time seen: 11/21/24 19:06 Interval history: 69yo male with HTN, gout, cancer, and hyperlipidemia (obtained via medication history, patient unable to confirm) presented here with fall, altered mental status, and hypotension on 10/17/24. Found to have septic shock started on Levophed and admitted to ICU. CT chest abdomen pelvis with no acute findings. Face CT with extensive sinus disease with near complete opacification of the right maxillary sinus and dependently layering fluid in the bilateral sphenoid sinuses. Patent was getting better. off Levophed on 10/18. Initially was on Cefepime and vancomycin but it was discontinued as there was no source on infection and neg blood cultures. On 10/19 patient had fever started on Rocephin for possible UTI vs sinusitis. C diff was positive on 10/22/24 started on oral Vancomycin and concluded on 11/01/24. AMS evaluation with MRI/CT/EEG unremarkable except for sinusitis. Lumbar puncture 10/31/2024 with mildly elevated opening pressure of 23 cm water and high protein. 6 RBC/1 WBC with 100% lymphocytes. HSV II PCR negative. WNV negative. patient also had Alejandro and rhabdomyolysis which received IVF. Patient also had pancytopenia. Hematology oncology on board. Platelet improved. patient failed barium swallow . surgery team was consulted underwent J-tube placement on 11/07 rapid response was called on 11/08/24 because of respiratory failure, hypotension, lactic acidosis. Patient was intubated and admitted to ICU.Ct concerning for cholecystitis and ileus. surgery team on board recommended to monitor patient has been on Dificid and meropenem patient gradually improving was transferred out of ICU 11/13/24 11/14/24 patient has been hypotensive and tachycardic this morning. receive IVF bolus. I saw and examined patient bedside. geovanna any chest pain, SOB, abd pain,N/V. Patient had worsening leukocytosis. Also has Alejandro I lactic acid 2.5, magnesium 1.4. treatment started for severe sepsis. Will give IV fluid. Continue with meropenem. Vancomycin was added. Surgery team on board. Plan for right upper quadrant ultrasound to evaluate cholecystitis. Blood cultures pending 11/15/24 Patient was seen and examined at bedside. awake but not following/answering questions. hypotension improved .WBC improving US showed cholecystitis. plan for cholecystostomy tube placement. 11/16/2024 No overnight events. Discussed with nursing staff. Awake follow some commands. Labs reviewed. Status post cholecystostomy tube placed. 11/17/2024: No events. Patient remains afebrile. Labs reviewed. Discussed with nursing staff. 11/18/2024: No overnight events. J-tube feeding has been started. At 20 cc an hour. NG in place. 11/19/2024: Mild grade fever noted off and on. Blood culture obtained. He is more alert and awake and interactive otherwise clinically improving. Liquid stool in bag. 11/20/2024: Mild fever persist. CT findings reviewed. Going for CT catheter placement today. Awake alert and interactive. Labs reviewed. Discussed with nursing staff. 11/21/2024: Assuming care. Chart reviewed. Patient arouses but somnolent and does not follow commands. Review of Systems Review of Systems: ROS unobtainable: Yes unobtainable due to mental status Exam Narrative: AF 98.9 115/73 101 16 99% ra Gen - NARD HEENT - dried crusted areas to nares Chest - clear to quiet respirations. CV - RRR S1/S2 Abd - JTube site is clean, dry and intact. Cholecystostomy tube with bilous fluid in bag. Drain in place with scant amount of bloody drainage. soft, +BS - Michelle secured draining clear yellow urine FCS in place with dark brown stool in bag Ext - No pedal edema Neuro - somnolent, does not follow commands Psych - hard to assess Skin - Warm and dry Objective Data Vital Signs Vital Signs: Vital Signs - 24 hr 11/20/24 19:38 11/20/24 20:00 11/21/24 04:11 Temperature 99.3 F 99.4 F Pulse Rate 92 92 98 Respiratory Rate 16 16 16 Blood Pressure 118/67 125/67 Pulse Oximetry 99 99 99 Oxygen Delivery Room Air Fraction of Inspired Oxygen 28 11/21/24 08:50 11/21/24 15:10 Temperature 98.9 F Pulse Rate 101 H Respiratory Rate 16 Blood Pressure 115/73 Pulse Oximetry 99 Oxygen Delivery Room Air Fraction of Inspired Oxygen Intake/Output Intake/Output: Intake & Output 11/18/24 11/19/24 11/20/24 11/21/24 23:59 23:59 23:59 23:59 Intake Total 1614 1048 1183 1082 Output Total 7171 556 9125 830 Balance 564 298 -97 252 Meds/Results Medications: Active Medications Generic Name Dose Route Start Last Admin Trade Name Freq PRN Reason Stop Dose Admin Acetaminophen 650 mg 11/13/24 21:07 11/19/24 03:09 Acetaminophen Elixir 325 Mg/10.15 Ml Udc FEED TUBE 650 mg Q6H PRN Administration Fever >101 Allopurinol 100 mg 11/15/24 09:00 11/21/24 08:43 Allopurinol 100 Mg Tablet FEED TUBE 100 mg DAILY JHONY Administration Alteplase, Recombinant 2 mg 11/20/24 13:51 11/20/24 14:30 Alteplase 2 Mg Vial (Cathflo) IV PUSH 2 mg ONCE PRN Administration Line Occlusion Amlodipine Besylate 10 mg 11/19/24 10:00 11/21/24 08:43 Amlodipine Besylate 10 Mg Tablet FEED TUBE 10 mg DAILY JHONY Administration Aspirin 81 mg 11/04/24 08:00 11/21/24 08:43 Aspirin 81 Mg Chewable Tablet FEED TUBE 81 mg DAILY@0800 [facility] Administration Carvedilol 12.5 mg 11/14/24 10:02 11/14/24 14:58 Carvedilol 12.5 Mg Tablet PO Not Given BID JHONY Collagenase 1 applic 11/13/24 09:00 11/21/24 08:44 Collagenase Oint 30 Gm Tube TOPICAL 1 applic Q12HR JHONY Administration Dextrose 12.5 gm 10/17/24 21:26 10/30/24 05:55 Dextrose 50% 25 Gm/50 Ml Syringe IV PUSH 12.5 gm PRN PRN Administration Hypoglycemia Protocol Enoxaparin Sodium 40 mg 11/02/24 09:00 11/09/24 08:18 Enoxaparin 40 Mg/0.4 Ml Syringe SUB-Q 40 mg DAILY JHONY Administration Folic Acid 1 mg 10/24/24 09:00 11/21/24 08:43 Folic Acid 1 Mg Tablet FEED TUBE 1 mg QAM JHONY Administration Glucagon 1 mg 10/17/24 21:26 Glucagon For Inj 1 Mg Vial IM PRN PRN Hypoglycemia Protocol Glucose 15 gm 11/13/24 21:07 Glucose Oral Gel 15 Gm Of Glucse In 37.5 Gm Tube FEED TUBE PRN PRN Hypoglycemia Protocol Dextrose 1,000 mls @ 100 mls/hr 10/17/24 21:26 Dextrose 5% 1,000 Ml IVPB PRN PRN Hypoglycemia Protocol Meropenem 1 gm in 100 mls @ 200 mls/hr 11/19/24 17:00 11/21/24 14:30 IVPB Infused Q8HR JHONY Infusion Insulin Aspart 3 - 6 units 11/08/24 12:00 11/21/24 18:49 Insulin Aspart (*Bkc) 100 Units/Ml SUB-Q Not Given Q6HR JHONY Protocol Pantoprazole Sodium 40 mg 11/19/24 09:00 11/21/24 08:51 Pantoprazole Sodium Iv 40 Mg Vial IV PUSH 40 mg QAM JHONY Administration Rosuvastatin Calcium 10 mg 11/04/24 09:00 11/21/24 08:43 Rosuvastatin 10 Mg Tablet FEED TUBE 10 mg DAILY JHONY Administration Saccharomyces Boulardii 250 mg 11/14/24 09:00 11/21/24 08:43 Saccharomyces Boulardii 250 Mg Capsule FEED TUBE 250 mg DAILY JHONY Administration Sodium Chloride 10 ml 11/08/24 14:00 11/21/24 13:50 Central Line Flush IV PUSH 10 ml Q8HR JHONY Administration Sodium Chloride 10 ml 11/08/24 08:15 Central Line Flush IV PUSH PRN PRN with TPN bag changes Sodium Chloride 20 ml 11/08/24 08:15 11/11/24 06:50 Central Line Flush IV PUSH 20 ml PRN PRN Administration after blood draws Thiamine HCl 100 mg 10/24/24 09:00 11/21/24 08:43 Thiamine Hcl 100 Mg Tablet FEED TUBE 100 mg QAM JHONY Administration Radiology Results: ITS Impressions Face CT 10/19/24 09:39 IMPRESSION: 1. Extensive sinus disease with near complete opacification of the right maxillary sinus and dependently layering fluid in the bilateral sphenoid sinuses. Correlate clinically for acute sinusitis. 2. Dental and periodontal disease with periapical lucency surrounding the posterior most remaining right maxillary molar. Renal Ultrasound 10/19/24 09:48 IMPRESSION: No hydronephrosis or renal calculi. No parenchymal findings to suggest the presence of medical renal disease. Simple cysts within the right kidney, for which no further follow-up is needed. Brain MRI 10/24/24 14:22 IMPRESSION: 1. Age-related changes the brain. No acute intracranial process. 2. Prominent sinus disease with fluid nearly filling the right maxillary sinus and layering dependently in the bilateral sphenoid sinuses. Correlate clinically for acute sinusitis. Lumbar Puncture Fluoroscopy 10/31/24 17:34 IMPRESSION: 1. Successful fluoro-guided lumbar puncture with mildly elevated opening pressure of 23 cm water. Modified Barium Swallow 11/06/24 10:05 IMPRESSION: Nondiagnostic study as all contents either leaked or were actively expelled from the mouth. No swallows were able to be evaluated. Please correlate with speech pathologist findings and specific feeding recommendations. Abdomen X-Ray 11/08/24 07:55 Impression: NG tube in satisfactory position. Probable small bowel obstruction. Chest/Abdomen/Pelvis CT 11/08/24 09:59 IMPRESSION: CHEST: 1. Right basilar atelectasis versus pneumonia with pleural effusion. 2. No other acute cardiopulmonary pathology. ABDOMEN/PELVIS: 1. Free air is seen anteriorly around the liver with minimal fluid. 2. Significant ascites in the pelvis. Drainage tube is seen in the left side of the pelvis. 3. Cholelithiasis with thickened wall of the gallbladder. Evaluation for cholecystitis advised. 4. Slightly dilated small bowel loops in the left upper abdomen which may indicate ileus follow-up advised. 5. Right renal cysts. Upper GI Series 11/09/24 13:49 IMPRESSION: 1. Left lower quadrant jejunostomy tube in expected position with injected contrast opacifying the normal-appearing jejunum with no extraluminal leakage of contrast. Head CT 11/14/24 05:17 Impression: No intracranial hemorrhage, mass, or acute infarct. Atrophy and chronic white matter changes, as above. Abdomen Ultrasound 11/14/24 15:13 IMPRESSION: Highly suggestive cholecystitis with cholelithiasis and gallbladder sludge. Clinical correlation advised. Minimal ascites. Minimal right pleural effusion. Cholecystostomy 11/15/24 16:04 IMPRESSION: 1. Successful ultrasound-guided cholecystostomy tube placement. 2. 13 mL bile was sent for aerobic, anaerobic, and fungal cultures. 3. The catheter will be managed by Dr. Ortiz. A catheter cholangiogram may be performed not less than 48 hours after tube placement if clinically indicated to assess cystic duct patency. If cholecystectomy is not eventually performed and the infectious episode has resolved, the tube may be removed over a guidewire, preferably not less than 3 weeks after placement to allow time for a mature catheter tract to form to prevent bile leakage and peritonitis. Chest X-Ray 11/19/24 08:55 Impression: Clear lungs. Right-sided PICC line in place. Abdomen/Pelvis CT 11/19/24 16:10 IMPRESSION: Rim-enhancing fluid collection within the right mid to upper abdomen measuring 8.5 cm in greatest dimension, for which intra-abdominal abscess is suspected. Percutaneous cholecystostomy catheter in good position with persistent cystic duct obstruction. Trace intra-abdominal ascites within the left mid to upper abdomen and within the pelvis. Catheter Placement CT 11/20/24 17:00 IMPRESSION: Technically successful CT-guided 10 Serbian drainage catheter placement within a (likely)perioperative infected hematoma, as detailed above. Specimen was sent for the culture evaluation. The catheter will need to be forwarded flushed (towards the patient and towards the drainage catheter) twice daily with 10 cc of normal saline. Labs Labs: Laboratory Results - last 24 hr 11/20/24 11/21/24 11/21/24 23:59 04:17 05:11 WBC 10.8 H RBC 2.97 L Hgb 8.7 L Hct 27.9 L MCV 93.9 MCH 29.3 MCHC 31.2 L RDW 18.5 H Plt Count 306 MPV 11.7 H Immature Gran % (Auto) 0.6 H Neut % (Auto) 63.9 Lymph % (Auto) 19.4 [place] % (Auto) 9.6 H Eos % (Auto) 6.0 H Baso % (Auto) 0.5 Lymph # (Auto) 2.10 [place] # (Auto) 1.0 H Eos # (Auto) 0.7 H Baso # (Auto) 0.1 Abs Immat Gran (auto) 0.06 H Absolute Neuts (auto) 6.9 H Absolute Nucleated RBC 0.000 Nucleated RBC % 0.0 Sodium 146 H Potassium 3.8 Chloride 114 H Carbon Dioxide 24 Anion Gap 8 BUN 15 Creatinine 0.69 L Estim Creat Clear Calc 82 Estimated GFR > 60 Glucose 114 H POC Capillary Glucose 104 121 H Calcium 8.5 Magnesium 1.6 Total Bilirubin 0.8 AST 36 ALT 19 Alkaline Phosphatase 130 H Total Protein 6.6 Albumin 2.7 L 11/21/24 11/21/24 12:27 17:40 WBC RBC Hgb Hct MCV MCH MCHC RDW Plt Count MPV Immature Gran % (Auto) Neut % (Auto) Lymph % (Auto) [place] % (Auto) Eos % (Auto) Baso % (Auto) Lymph # (Auto) [place] # (Auto) Eos # (Auto) Baso # (Auto) Abs Immat Gran (auto) Absolute Neuts (auto) Absolute Nucleated RBC Nucleated RBC % Sodium Potassium Chloride Carbon Dioxide Anion Gap BUN Creatinine Estim Creat Clear Calc Estimated GFR Glucose POC Capillary Glucose 102 104 Calcium Magnesium Total Bilirubin AST ALT Alkaline Phosphatase Total Protein Albumin
[2024-11-21 20:00] VITALS: PULSE 101; RESP 16; O2SAT 99
[2024-11-21 22:00] VITALS: BP 125/58; PULSE 97; RESP 18; TEMP 37; O2SAT 96
[2024-11-22] MEDS: MEROPENEM 1 GM/NS 100 ML 1 GM/100 ML BAG IVPB ×3 (05:14→21:00)
[2024-11-22] MEDS: CENTRAL LINE FLUSH 10 ML IV PUSH ×3 (05:14→21:01)
[2024-11-22 05:35] LABS: Hematocrit 27.5 % (42.0-52.0); Hemoglobin 8.5 g/dL (14.0-18.0); Immature Granulocyte Percent A 0.5 % (0-0.5); Lymphocytes Absolute Auto 2.54 K/mm3 (0.9-3.2); Mean Corpuscular HGB Conc 30.9 g/dl (32-36); Mean Corpuscular Hemoglobin 29.1 pg (26-34); Mean Corpuscular Volume 94.2 fl (80-100); Nucleated Red Blood Cells Absolute Auto 0.000 K/mm3 (0.0-0.012); Nucleated Red Blood Cells Perc 0.0 % (0.0-0.2); Platelet Count Result 315 k/mm3 (150-375); Red Blood Count 2.92 M/mm3 (4.6-6.20); White Blood Count 10.4 K/mm3 (4.5-10.0)
[2024-11-22 05:44] LABS: Alanine Aminotransferase 22 U/L (6-50); Albumin Level 2.8 g/dL (3.5-5.1); Alkaline Phosphatase 149 U/L (38-126); Anion Gap 7 mmol/L (4-12); Aspartate Amino Transferase 44 U/L (17-59); Bilirubin,Total 0.8 mg/dL (0.2-1.3); Blood Urea Nitrogen 16 mg/dL (9-20); Calcium 8.4 mg/dL (8.4-10.2); Carbon Dioxide 25 mmol/L (22-30); Chloride 112 mmol/L (98-107); Estimated CRCL calculation 77 ml/min; Estimated Glomerular Filt Rate > 60; Glucose 94 mg/dL (65-110); Magnesium 1.6 mg/dL (1.6-2.3); Potassium 4.1 mmol/L (3.4-5.0); Sodium 144 mmol/L (137-145); Total Protein 7.0 g/dL (6.3-8.2)
[2024-11-22 06:00] VITALS: BP 132/71; PULSE 97; RESP 18; TEMP 37.6; O2SAT 96
[2024-11-22] MEDS: ENOXAPARIN 40 MG/0.4 ML SYRINGE SUB-Q (09:03)
[2024-11-22] MEDS: ROSUVASTATIN 10 MG TABLET FEED TUBE (09:03)
[2024-11-22] MEDS: SACCHAROMYCES BOULARDII 250 MG CAPSULE FEED TUBE (09:03)
[2024-11-22] MEDS: PANTOPRAZOLE SODIUM IV 40 MG VIAL IV PUSH (09:03)
[2024-11-22 09:04] VITALS: PULSE 100
[2024-11-22] MEDS: COLLAGENASE OINT 30 GM TUBE 1 APPLIC TOPICAL ×2 (09:04→21:01)
[2024-11-22] MEDS: FOLIC ACID 1 MG TABLET FEED TUBE (09:04)
[2024-11-22] MEDS: THIAMINE HCL 100 MG TABLET FEED TUBE (09:04)
[2024-11-22] MEDS: ASPIRIN 81 MG CHEWABLE TABLET FEED TUBE (09:04)
[2024-11-22 14:00] VITALS: BP 111/63; PULSE 67; RESP 18; TEMP 36.6; O2SAT 100
--- NOTE | 2024-11-22 14:31 | PM.IMPN ---
Progress Note: A&P Assessment and Plan (1) Shock: Code(s): R57.9 - Shock, unspecified Status: Acute Assessment and Plan: Patient initially presented with septic shock Patient has developed new hypotension 11/08/2024. Suspect aspiration pneumonia versus UTI as patient has had Michelle for more than 2 weeks., or persistent C diff infection CT chest abdomen pelvis ABDOMEN/PELVIS: 1. Free air is seen anteriorly around the liver with minimal fluid. 2. Significant ascites in the pelvis. Drainage tube is seen in the left side of the pelvis. 3. Cholelithiasis with thickened wall of the gallbladder. Evaluation for cholecystitis advised. 4. Slightly dilated small bowel loops in the left upper abdomen which may indicate ileus follow-up advised. 5. Right renal cysts Blood, sputum culture culture are negative till now Michelle changed and UA sent procalcitonin level 8.2 Continue Dificid and meropenem Patient was given IV fluid bolus and now off of IV fluids Off 25% albumin Off Levophed infusion Blood pressure fluctuating. But more stable now 11/14/2024 worsened leukocytosis with hypotension up to 28 K. Meropenem and vancomycin added. Ultrasound with cholecystitis now status post cholecystostomy tube placement 11/15/2024. Continue meropenem. Fluid culture with Gram-positive cocci in chains on anaerobic culture. Aerobic culture no growth to date. Will continue meropenem 11/19/2024: Intermittent fever starts. Chest x-ray with clear lungs right-sided PICC line in place. Urinalysis negative. Blood culture x2 obtained. Repeat CT 11/19 with rim enhancing fluid collection within the right mid to upper abdomen measuring 8.5 cm in greatest dimension likely intra-abdominal abscess. Persistent cystic duct obstruction. The small bowel of the right lower quadrant is also minimally distended and hyperemic. Free fluid within the pelvis, denser than one would expect for simple fluid with attenuation values of 20. IR for catheter placement 11/20. [place] to be an infected hematoma BCx 11/19 NGTD Hematoma Cultures 11/20 NGTD Vancomycin 11/14 to 11/19 Continue meropenem 11/08-continued (2) Metabolic encephalopathy: Code(s): G93.41 - Metabolic encephalopathy Status: Acute Assessment and Plan: Patient has had Altered mental status since admission which is multifactorial Patient was evaluated by Neurology and suspected to have metabolic encephalopathy. -CT brain on presented was negative for intracranial abnormalities. Repeat CT scan 11/08 also unremarkable -MRI cannot be performed as patient was in the [place] and may have sharpnel exposure according to his daughter -10/19: Repeat CT brain did not show any acute intracranial hemorrhage or suspicious mass effect, inflammatory sinus disease. -10/19: CT facial bones showed extensive sinus disease with near complete opacification of the right maxillary sinus and dependently layering fluid in the bilateral sphenoid sinuses. Dental and periodontal disease with periapical lucency surrounding the posterior most remaining right maxillary molar His ammonia level was normal Lumbar puncture 10/31/2024 with mildly elevated opening pressure of 23 cm water and high protein. 6 RBC/1 WBC with 100% lymphocytes. HSV II PCR negative. WNV negative. Some improvement today. Monitor mental status to see if improves with drainage of infected hematoma (3) Acute kidney injury: Code(s): N17.9 - Acute kidney failure, unspecified Status: Acute Assessment and Plan: ICU: Patient presented with Acute kidney injury which improved with IV fluids Now the creatinine has again went up I suspect this is due to hypovolemia and sepsis Fully replaced CT scan reviewed Patient was given IV fluids and creatinine improving. Hold further IV fluid Although his intake and output show that he is significantly volume overloaded. He has had FMS with diarrhea which makes I&Os inaccurate. He does have minimal edema on exam Nephrology following Monitor urine output electrolytes and creatinine CK level is normal Earlier in the course CT scan of the abdomen and pelvis did not show any hydronephrosis or stones and renal ultrasound also showed No hydronephrosis or renal calculi, no apparent, findings to suggest the presence of medical renal disease. Simple cyst within the right kidney ALEJANDRO has now resolved (4) Anemia: Code(s): D64.9 - Anemia, unspecified Status: Acute Assessment and Plan: in ICU: Patient was anemic on presentation and received 2 units of PRBC. He was evaluate by Hematology Stool culture was negative and vitamin B12 were normal Folic acid was low and was supplement -iron panel was unremarkable He had EGD on 11/01 which showed gastritis and previous gastric surgery Hemoglobin dropped to 5.2 which could be partially dilutional versus GI loss 11/09 Transfuse 2 units PRBC Holding Lovenox and use SCDs Continue protonix Monitor hemoglobin Resume Lovenox (5) Thrombocytopenia: Code(s): D69.6 - Thrombocytopenia, unspecified Status: Acute Assessment and Plan: Thrombocytopenia related to sepsis; this has improved High platelet count at this time suggest hemoconcentration Resolved (6) Hyperkalemia: Code(s): E87.5 - Hyperkalemia Status: Acute Assessment and Plan: Hyperkalemia with ALEJANDRO Calcium gluconate, insulin and D50, bicarb received Lokelma in ICU IV fluid bolus Now resolved (7) C. difficile diarrhea: Code(s): A04.72 - Enterocolitis due to Clostridium difficile, not specified as recurrent Status: Acute Assessment and Plan: CT abdomen pelvis reviewed Diarrhea improved. IV Flagyl stopped 11/09 Dificid completed on 11/18. Monitor stool output (8) Acute respiratory failure: Code(s): J96.00 - Acute respiratory failure, unspecified whether with hypoxia or hypercapnia Status: Acute Assessment and Plan: Resolved Plan DVT Prophylaxis - SCDs; add Lovenox Code status - Full Subjective Date/time seen: 11/22/24 14:31 Interval history: 69yo male with HTN, gout, cancer, and hyperlipidemia (obtained via medication history, patient unable to confirm) presented here with fall, altered mental status, and hypotension on 10/17/24. Found to have septic shock started on Levophed and admitted to ICU. CT chest abdomen pelvis with no acute findings. Face CT with extensive sinus disease with near complete opacification of the right maxillary sinus and dependently layering fluid in the bilateral sphenoid sinuses. Patent was getting better. off Levophed on 10/18. Initially was on Cefepime and vancomycin but it was discontinued as there was no source on infection and neg blood cultures. On 10/19 patient had fever started on Rocephin for possible UTI vs sinusitis. C diff was positive on 10/22/24 started on oral Vancomycin and concluded on 11/01/24. AMS evaluation with MRI/CT/EEG unremarkable except for sinusitis. Lumbar puncture 10/31/2024 with mildly elevated opening pressure of 23 cm water and high protein. 6 RBC/1 WBC with 100% lymphocytes. HSV II PCR negative. WNV negative. patient also had Alejandro and rhabdomyolysis which received IVF. Patient also had pancytopenia. Hematology oncology on board. Platelet improved. patient failed barium swallow . surgery team was consulted underwent J-tube placement on 11/07 rapid response was called on 11/08/24 because of respiratory failure, hypotension, lactic acidosis. Patient was intubated and admitted to ICU.Ct concerning for cholecystitis and ileus. surgery team on board recommended to monitor patient has been on Dificid and meropenem patient gradually improving was transferred out of ICU 11/13/24 11/14/24 patient has been hypotensive and tachycardic this morning. receive IVF bolus. I saw and examined patient bedside. geovanna any chest pain, SOB, abd pain,N/V. Patient had worsening leukocytosis. Also has Alejandro I lactic acid 2.5, magnesium 1.4. treatment started for severe sepsis. Will give IV fluid. Continue with meropenem. Vancomycin was added. Surgery team on board. Plan for right upper quadrant ultrasound to evaluate cholecystitis. Blood cultures pending 11/15/24 Patient was seen and examined at bedside. awake but not following/answering questions. hypotension improved .WBC improving US showed cholecystitis. plan for cholecystostomy tube placement. 11/16/2024 No overnight events. Discussed with nursing staff. Awake follow some commands. Labs reviewed. Status post cholecystostomy tube placed. 11/17/2024: No events. Patient remains afebrile. Labs reviewed. Discussed with nursing staff. 11/18/2024: No overnight events. J-tube feeding has been started. At 20 cc an hour. NG in place. 11/19/2024: Mild grade fever noted off and on. Blood culture obtained. He is more alert and awake and interactive otherwise clinically improving. Liquid stool in bag. 11/20/2024: Mild fever persist. CT findings reviewed. Going for CT catheter placement today. Awake alert and interactive. Labs reviewed. Discussed with nursing staff. 11/21/2024: Assuming care. Chart reviewed. Patient arouses but somnolent and does not follow commands. 11/22/2024: Patient more alert but remains nonverbal. Review of Systems Review of Systems: ROS unobtainable: Yes unobtainable due to mental status Exam Narrative: AF 99.7 132/71 100 18 96% ra Gen - NARD HEENT - dried crusted areas to nares and lips, dark mat'l within the oral cavity Chest - clear anteriorly to quiet respirations. CV - RRR S1/S2 Abd - JTube site is clean, dry and intact. Cholecystostomy tube with bilious fluid in bag. Drain in place with scant amount of bloody drainage. soft, +BS - Michelle secured draining clear yellow urine; FCS in place with dark brown stool in bag Ext - No pedal edema Neuro - more alert; does not follow commands;nonverbal Psych - hard to assess Skin - Warm and dry Objective Data Vital Signs Vital Signs: Vital Signs - 24 hr 11/21/24 15:10 11/21/24 20:00 11/21/24 22:00 Temperature 98.9 F 98.6 F Pulse Rate 101 H 101 H 97 Respiratory Rate 16 16 18 Blood Pressure 115/73 125/58 L Pulse Oximetry 99 99 96 Oxygen Delivery Room Air Fraction of Inspired Oxygen 28 11/22/24 06:00 11/22/24 09:04 Temperature 99.7 F H Pulse Rate 97 100 Respiratory Rate 18 Blood Pressure 132/71 Pulse Oximetry 96 Oxygen Delivery Fraction of Inspired Oxygen Intake/Output Intake/Output: Intake & Output 11/19/24 11/20/24 11/21/24 11/22/24 23:59 23:59 23:59 23:59 Intake Total 1048 1183 1182 200 Output Total 750 1280 830 900 Balance 298 -97 352 -700 Meds/Results Medications: Active Medications Generic Name Dose Route Start Last Admin Trade Name Freq PRN Reason Stop Dose Admin Acetaminophen 650 mg 11/13/24 21:07 11/19/24 03:09 Acetaminophen Elixir 325 Mg/10.15 Ml Udc FEED TUBE 650 mg Q6H PRN Administration Fever >101 Allopurinol 100 mg 11/15/24 09:00 11/22/24 09:03 Allopurinol 100 Mg Tablet FEED TUBE 100 mg DAILY JHONY Administration Alteplase, Recombinant 2 mg 11/20/24 13:51 11/20/24 14:30 Alteplase 2 Mg Vial (Cathflo) IV PUSH 2 mg ONCE PRN Administration Line Occlusion Amlodipine Besylate 5 mg 11/22/24 09:00 11/22/24 09:04 Amlodipine Besylate 5 Mg Tablet FEED TUBE 5 mg DAILY JHONY Administration Aspirin 81 mg 11/04/24 08:00 11/22/24 09:04 Aspirin 81 Mg Chewable Tablet FEED TUBE 81 mg DAILY@0800 [facility] Administration Carvedilol 6.25 mg 11/22/24 09:00 11/22/24 09:04 Carvedilol 6.25 Mg Tablet FEED TUBE 6.25 mg Q12HR JHONY Administration Collagenase 1 applic 11/13/24 09:00 11/22/24 09:04 Collagenase Oint 30 Gm Tube TOPICAL 1 applic Q12HR JHONY Administration Dextrose 12.5 gm 10/17/24 21:26 10/30/24 05:55 Dextrose 50% 25 Gm/50 Ml Syringe IV PUSH 12.5 gm PRN PRN Administration Hypoglycemia Protocol Enoxaparin Sodium 40 mg 11/02/24 09:00 11/22/24 09:03 Enoxaparin 40 Mg/0.4 Ml Syringe SUB-Q 40 mg DAILY JHONY Administration Folic Acid 1 mg 10/24/24 09:00 11/22/24 09:04 Folic Acid 1 Mg Tablet FEED TUBE 1 mg QAM JHONY Administration Glucagon 1 mg 10/17/24 21:26 Glucagon For Inj 1 Mg Vial IM PRN PRN Hypoglycemia Protocol Glucose 15 gm 11/13/24 21:07 Glucose Oral Gel 15 Gm Of Glucse In 37.5 Gm Tube FEED TUBE PRN PRN Hypoglycemia Protocol Dextrose 1,000 mls @ 100 mls/hr 10/17/24 21:26 Dextrose 5% 1,000 Ml IVPB PRN PRN Hypoglycemia Protocol Meropenem 1 gm in 100 mls @ 200 mls/hr 11/19/24 17:00 11/22/24 14:00 IVPB Infused Q8HR JHONY Infusion Insulin Aspart 3 - 6 units 11/08/24 12:00 11/22/24 11:38 Insulin Aspart (*Bkc) 100 Units/Ml SUB-Q Not Given Q6HR JHONY Protocol Pantoprazole Sodium 40 mg 11/19/24 09:00 11/22/24 09:03 Pantoprazole Sodium Iv 40 Mg Vial IV PUSH 40 mg QAM JHONY Administration Rosuvastatin Calcium 10 mg 11/04/24 09:00 11/22/24 09:03 Rosuvastatin 10 Mg Tablet FEED TUBE 10 mg DAILY JHONY Administration Saccharomyces Boulardii 250 mg 11/14/24 09:00 11/22/24 09:03 Saccharomyces Boulardii 250 Mg Capsule FEED TUBE 250 mg DAILY JHONY Administration Sodium Chloride 10 ml 11/08/24 14:00 11/22/24 13:30 Central Line Flush IV PUSH 10 ml Q8HR JHONY Administration Sodium Chloride 10 ml 11/08/24 08:15 Central Line Flush IV PUSH PRN PRN with TPN bag changes Sodium Chloride 20 ml 11/08/24 08:15 11/11/24 06:50 Central Line Flush IV PUSH 20 ml PRN PRN Administration after blood draws Thiamine HCl 100 mg 10/24/24 09:00 11/22/24 09:04 Thiamine Hcl 100 Mg Tablet FEED TUBE 100 mg QAM JHONY Administration Radiology Results: ITS Impressions Face CT 10/19/24 09:39 IMPRESSION: 1. Extensive sinus disease with near complete opacification of the right maxillary sinus and dependently layering fluid in the bilateral sphenoid sinuses. Correlate clinically for acute sinusitis. 2. Dental and periodontal disease with periapical lucency surrounding the posterior most remaining right maxillary molar. Renal Ultrasound 10/19/24 09:48 IMPRESSION: No hydronephrosis or renal calculi. No parenchymal findings to suggest the presence of medical renal disease. Simple cysts within the right kidney, for which no further follow-up is needed. Brain MRI 10/24/24 14:22 IMPRESSION: 1. Age-related changes the brain. No acute intracranial process. 2. Prominent sinus disease with fluid nearly filling the right maxillary sinus and layering dependently in the bilateral sphenoid sinuses. Correlate clinically for acute sinusitis. Lumbar Puncture Fluoroscopy 10/31/24 17:34 IMPRESSION: 1. Successful fluoro-guided lumbar puncture with mildly elevated opening pressure of 23 cm water. Modified Barium Swallow 11/06/24 10:05 IMPRESSION: Nondiagnostic study as all contents either leaked or were actively expelled from the mouth. No swallows were able to be evaluated. Please correlate with speech pathologist findings and specific feeding recommendations. Abdomen X-Ray 11/08/24 07:55 Impression: NG tube in satisfactory position. Probable small bowel obstruction. Chest/Abdomen/Pelvis CT 11/08/24 09:59 IMPRESSION: CHEST: 1. Right basilar atelectasis versus pneumonia with pleural effusion. 2. No other acute cardiopulmonary pathology. ABDOMEN/PELVIS: 1. Free air is seen anteriorly around the liver with minimal fluid. 2. Significant ascites in the pelvis. Drainage tube is seen in the left side of the pelvis. 3. Cholelithiasis with thickened wall of the gallbladder. Evaluation for cholecystitis advised. 4. Slightly dilated small bowel loops in the left upper abdomen which may indicate ileus follow-up advised. 5. Right renal cysts. Upper GI Series 11/09/24 13:49 IMPRESSION: 1. Left lower quadrant jejunostomy tube in expected position with injected contrast opacifying the normal-appearing jejunum with no extraluminal leakage of contrast. Head CT 11/14/24 05:17 Impression: No intracranial hemorrhage, mass, or acute infarct. Atrophy and chronic white matter changes, as above. Abdomen Ultrasound 11/14/24 15:13 IMPRESSION: Highly suggestive cholecystitis with cholelithiasis and gallbladder sludge. Clinical correlation advised. Minimal ascites. Minimal right pleural effusion. Cholecystostomy 11/15/24 16:04 IMPRESSION: 1. Successful ultrasound-guided cholecystostomy tube placement. 2. 13 mL bile was sent for aerobic, anaerobic, and fungal cultures. 3. The catheter will be managed by Dr. Ortiz. A catheter cholangiogram may be performed not less than 48 hours after tube placement if clinically indicated to assess cystic duct patency. If cholecystectomy is not eventually performed and the infectious episode has resolved, the tube may be removed over a guidewire, preferably not less than 3 weeks after placement to allow time for a mature catheter tract to form to prevent bile leakage and peritonitis. Chest X-Ray 11/19/24 08:55 Impression: Clear lungs. Right-sided PICC line in place. Abdomen/Pelvis CT 11/19/24 16:10 IMPRESSION: Rim-enhancing fluid collection within the right mid to upper abdomen measuring 8.5 cm in greatest dimension, for which intra-abdominal abscess is suspected. Percutaneous cholecystostomy catheter in good position with persistent cystic duct obstruction. Trace intra-abdominal ascites within the left mid to upper abdomen and within the pelvis. Catheter Placement CT 11/20/24 17:00 IMPRESSION: Technically successful CT-guided 10 [place] drainage catheter placement within a (likely)perioperative infected hematoma, as detailed above. Specimen was sent for the culture evaluation. The catheter will need to be forwarded flushed (towards the patient and towards the drainage catheter) twice daily with 10 cc of normal saline. ADDENDUM: 11/22/24 1113 IMPRESSION: Technically successful CT-guided 10 [place] drainage catheter placement within a (likely)perioperative infected hematoma, as detailed above. Of note, perioperative includes periprocedural. In no way, is this a reference to any of the procedures/surgeries that this patient has undergone. Given his prolonged hospital course, this rim-enhancing fluid collection could be from any of a number of causes, and was not mentioned in any way to refer to the percutaneous jejunostomy, which (once again) is in excellent position. In addition, the percutaneous cholecystostomy tube is not transhepatic, but enters the gallbladder directly (on imaging). Labs Labs: Laboratory Results - last 24 hr 11/21/24 11/21/24 11/22/24 17:40 23:55 05:19 WBC 10.4 H RBC 2.92 L Hgb 8.5 L Hct 27.5 L MCV 94.2 MCH 29.1 MCHC 30.9 L RDW 18.4 H Plt Count 315 MPV 11.4 H Immature Gran % (Auto) 0.5 Neut % (Auto) 59.5 Lymph % (Auto) 24.3 [place] % (Auto) 10.7 H Eos % (Auto) 4.5 H Baso % (Auto) 0.5 Lymph # (Auto) 2.54 [place] # (Auto) 1.1 H Eos # (Auto) 0.5 H Baso # (Auto) 0.1 Abs Immat Gran (auto) 0.05 H Absolute Neuts (auto) 6.2 Absolute Nucleated RBC 0.000 Nucleated RBC % 0.0 Sodium 144 Potassium 4.1 Chloride 112 H Carbon Dioxide 25 Anion Gap 7 BUN 16 Creatinine 0.75 Estim Creat Clear Calc 77 Estimated GFR > 60 Glucose 94 POC Capillary Glucose 104 109 H Calcium 8.4 Phosphorus 4.5 Magnesium 1.6 Total Bilirubin 0.8 AST 44 ALT 22 Alkaline Phosphatase 149 H Total Protein 7.0 Albumin 2.8 L 11/22/24 11/22/24 05:57 11:24 WBC RBC Hgb Hct MCV MCH MCHC RDW Plt Count MPV Immature Gran % (Auto) Neut % (Auto) Lymph % (Auto) [place] % (Auto) Eos % (Auto) Baso % (Auto) Lymph # (Auto) [place] # (Auto) Eos # (Auto) Baso # (Auto) Abs Immat Gran (auto) Absolute Neuts (auto) Absolute Nucleated RBC Nucleated RBC % Sodium Potassium Chloride Carbon Dioxide Anion Gap BUN Creatinine Estim Creat Clear Calc Estimated GFR Glucose POC Capillary Glucose 107 H 108 H Calcium Phosphorus Magnesium Total Bilirubin AST ALT Alkaline Phosphatase Total Protein Albumin
--- NOTE | 2024-11-22 16:09 | P.PNGS_ITS ---
Progress Note: A&P Assessment and Plan (1) Cholelithiasis and acute cholecystitis without obstruction: Code(s): K80.00 - Calculus of gallbladder with acute cholecystitis without obstruction Status: Acute Assessment and Plan: Cholecystostomy tube in place and draining bile. This provides relief from acute cholecystitis with patient in medically poor condition for gallbladder surgery. Continue cholecystostomy tube. It is now being irrigated with saline and working much better. (2) Intra-abdominal abscess: Code(s): K65.1 - Peritoneal abscess Status: Acute Assessment and Plan: Right-sided hematoma as pigtail catheter drain in place. No growth of any bacteria as yet. No white blood cells seen on Gram stain although a few gram positive cocci in clusters were noted. No growth as yet aerobic or anaerobic culture. (3) Unable to eat: Code(s): R63.8 - Other symptoms and signs concerning food and fluid intake Status: Acute Assessment and Plan: * Jejunostomy tube in place and functioning well. No evidence of complications or leakage on any imaging studies. 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 Consider repeat modified swallow if mental status improves. (4) History of jejunostomy tube placement: Status: Acute Assessment and Plan: * Wound healing well, no problems with J-tube. Tolerating tube feedings. Subjective Subjective Date/Time Seen: 11/22/24 16:09 Patient reports: no new complaints (Awake more this afternoon and able to say a few words), no bowel movement (No bowel movement recorded last 2 days), afebrile and other (Tolerating tube feeds well) Exam Const: General: comfortable and awake GI: Inspection: incision (Healing well, tube feeds infusing, bile from gallbladder tube) and other (Old blood from right-sided hematoma drain) GI Palp: Yes Soft to palpation, Yes Tenderness to palpation present (GI) (Mild tenderness), No Guarding due to palpation present (GI), No Hernia present and No Palpable mass present Objective Data Vital Signs Vital Signs: Vital Signs - 24 hr 11/21/24 20:00 11/21/24 22:00 11/22/24 06:00 Temperature 37.0 C 37.6 C H Pulse Rate 101 H 97 97 Respiratory Rate 16 18 18 Blood Pressure 125/58 L 132/71 Pulse Oximetry 99 96 96 Oxygen Delivery Room Air Fraction of Inspired Oxygen 28 11/22/24 09:04 11/22/24 14:00 Temperature 36.6 C Pulse Rate 100 67 Respiratory Rate 18 Blood Pressure 111/63 Pulse Oximetry 100 Oxygen Delivery Fraction of Inspired Oxygen Intake/Output Intake/Output: Intake & Output 11/19/24 11/20/24 11/21/24 11/22/24 23:59 23:59 23:59 23:59 Intake Total 1048 1183 1182 200 Output Total 750 1280 830 900 Balance 298 -97 352 -700 Meds/Results Medications: Active Medications Generic Name Dose Route Start Last Admin Trade Name Freq PRN Reason Stop Dose Admin Acetaminophen 650 mg 11/13/24 21:07 11/19/24 03:09 Acetaminophen Elixir 325 Mg/10.15 Ml Udc FEED TUBE 650 mg Q6H PRN Administration Fever >101 Allopurinol 100 mg 11/15/24 09:00 11/22/24 09:03 Allopurinol 100 Mg Tablet FEED TUBE 100 mg DAILY JHONY Administration Alteplase, Recombinant 2 mg 11/20/24 13:51 11/20/24 14:30 Alteplase 2 Mg Vial (Cathflo) IV PUSH 2 mg ONCE PRN Administration Line Occlusion Amlodipine Besylate 5 mg 11/22/24 09:00 11/22/24 09:04 Amlodipine Besylate 5 Mg Tablet FEED TUBE 5 mg DAILY JHONY Administration Aspirin 81 mg 11/04/24 08:00 11/22/24 09:04 Aspirin 81 Mg Chewable Tablet FEED TUBE 81 mg DAILY@0800 JHONY Administration Carvedilol 6.25 mg 11/22/24 09:00 11/22/24 09:04 Carvedilol 6.25 Mg Tablet FEED TUBE 6.25 mg Q12HR JHONY Administration Collagenase 1 applic 11/13/24 09:00 11/22/24 09:04 Collagenase Oint 30 Gm Tube TOPICAL 1 applic Q12HR JHONY Administration Dextrose 12.5 gm 10/17/24 21:26 10/30/24 05:55 Dextrose 50% 25 Gm/50 Ml Syringe IV PUSH 12.5 gm PRN PRN Administration Hypoglycemia Protocol Enoxaparin Sodium 40 mg 11/02/24 09:00 11/22/24 09:03 Enoxaparin 40 Mg/0.4 Ml Syringe SUB-Q 40 mg DAILY JHONY Administration Folic Acid 1 mg 10/24/24 09:00 11/22/24 09:04 Folic Acid 1 Mg Tablet FEED TUBE 1 mg QAM JHONY Administration Glucagon 1 mg 10/17/24 21:26 Glucagon For Inj 1 Mg Vial IM PRN PRN Hypoglycemia Protocol Glucose 15 gm 11/13/24 21:07 Glucose Oral Gel 15 Gm Of Glucse In 37.5 Gm Tube FEED TUBE PRN PRN Hypoglycemia Protocol Dextrose 1,000 mls @ 100 mls/hr 10/17/24 21:26 Dextrose 5% 1,000 Ml IVPB PRN PRN Hypoglycemia Protocol Meropenem 1 gm in 100 mls @ 200 mls/hr 11/19/24 17:00 11/22/24 14:00 IVPB Infused Q8HR JHONY Infusion Insulin Aspart 3 - 6 units 11/08/24 12:00 11/22/24 11:38 Insulin Aspart (*Bkc) 100 Units/Ml SUB-Q Not Given Q6HR JHONY Protocol Pantoprazole Sodium 40 mg 11/19/24 09:00 11/22/24 09:03 Pantoprazole Sodium Iv 40 Mg Vial IV PUSH 40 mg QAM JHONY Administration Rosuvastatin Calcium 10 mg 11/04/24 09:00 11/22/24 09:03 Rosuvastatin 10 Mg Tablet FEED TUBE 10 mg DAILY JHONY Administration Saccharomyces Boulardii 250 mg 11/14/24 09:00 11/22/24 09:03 Saccharomyces Boulardii 250 Mg Capsule FEED TUBE 250 mg DAILY JHONY Administration Sodium Chloride 10 ml 11/08/24 14:00 11/22/24 13:30 Central Line Flush IV PUSH 10 ml Q8HR JHONY Administration Sodium Chloride 10 ml 11/08/24 08:15 Central Line Flush IV PUSH PRN PRN with TPN bag changes Sodium Chloride 20 ml 11/08/24 08:15 11/11/24 06:50 Central Line Flush IV PUSH 20 ml PRN PRN Administration after blood draws Thiamine HCl 100 mg 10/24/24 09:00 11/22/24 09:04 Thiamine Hcl 100 Mg Tablet FEED TUBE 100 mg QAM JHONY Administration Radiology Results: ITS Impressions Face CT 10/19/24 09:39 IMPRESSION: 1. Extensive sinus disease with near complete opacification of the right maxillary sinus and dependently layering fluid in the bilateral sphenoid sinuses. Correlate clinically for acute sinusitis. 2. Dental and periodontal disease with periapical lucency surrounding the posterior most remaining right maxillary molar. Renal Ultrasound 10/19/24 09:48 IMPRESSION: No hydronephrosis or renal calculi. No parenchymal findings to suggest the presence of medical renal disease. Simple cysts within the right kidney, for which no further follow-up is needed. Brain MRI 10/24/24 14:22 IMPRESSION: 1. Age-related changes the brain. No acute intracranial process. 2. Prominent sinus disease with fluid nearly filling the right maxillary sinus and layering dependently in the bilateral sphenoid sinuses. Correlate clinically for acute sinusitis. Lumbar Puncture Fluoroscopy 10/31/24 17:34 IMPRESSION: 1. Successful fluoro-guided lumbar puncture with mildly elevated opening pressure of 23 cm water. Modified Barium Swallow 11/06/24 10:05 IMPRESSION: Nondiagnostic study as all contents either leaked or were actively expelled from the mouth. No swallows were able to be evaluated. Please correlate with speech pathologist findings and specific feeding recommendations. Abdomen X-Ray 11/08/24 07:55 Impression: NG tube in satisfactory position. Probable small bowel obstruction. Chest/Abdomen/Pelvis CT 11/08/24 09:59 IMPRESSION: CHEST: 1. Right basilar atelectasis versus pneumonia with pleural effusion. 2. No other acute cardiopulmonary pathology. ABDOMEN/PELVIS: 1. Free air is seen anteriorly around the liver with minimal fluid. 2. Significant ascites in the pelvis. Drainage tube is seen in the left side of the pelvis. 3. Cholelithiasis with thickened wall of the gallbladder. Evaluation for cholecystitis advised. 4. Slightly dilated small bowel loops in the left upper abdomen which may indicate ileus follow-up advised. 5. Right renal cysts. Upper GI Series 11/09/24 13:49 IMPRESSION: 1. Left lower quadrant jejunostomy tube in expected position with injected contrast opacifying the normal-appearing jejunum with no extraluminal leakage of contrast. Head CT 11/14/24 05:17 Impression: No intracranial hemorrhage, mass, or acute infarct. Atrophy and chronic white matter changes, as above. Abdomen Ultrasound 11/14/24 15:13 IMPRESSION: Highly suggestive cholecystitis with cholelithiasis and gallbladder sludge. Clinical correlation advised. Minimal ascites. Minimal right pleural effusion. Cholecystostomy 11/15/24 16:04 IMPRESSION: 1. Successful ultrasound-guided cholecystostomy tube placement. 2. 13 mL bile was sent for aerobic, anaerobic, and fungal cultures. 3. The catheter will be managed by Dr. Ortiz. A catheter cholangiogram may be performed not less than 48 hours after tube placement if clinically indicated to assess cystic duct patency. If cholecystectomy is not eventually performed and the infectious episode has resolved, the tube may be removed over a guidewire, preferably not less than 3 weeks after placement to allow time for a mature catheter tract to form to prevent bile leakage and peritonitis. Chest X-Ray 11/19/24 08:55 Impression: Clear lungs. Right-sided PICC line in place. Abdomen/Pelvis CT 11/19/24 16:10 IMPRESSION: Rim-enhancing fluid collection within the right mid to upper abdomen measuring 8.5 cm in greatest dimension, for which intra-abdominal abscess is suspected. Percutaneous cholecystostomy catheter in good position with persistent cystic duct obstruction. Trace intra-abdominal ascites within the left mid to upper abdomen and within the pelvis. Catheter Placement CT 11/20/24 17:00 IMPRESSION: Technically successful CT-guided 10 Uzbek drainage catheter placement within a (likely)perioperative infected hematoma, as detailed above. Specimen was sent for the culture evaluation. The catheter will need to be forwarded flushed (towards the patient and towards the drainage catheter) twice daily with 10 cc of normal saline. ADDENDUM: 11/22/24 1113 IMPRESSION: Technically successful CT-guided 10 Uzbek drainage catheter placement within a (likely)perioperative infected hematoma, as detailed above. Of note, perioperative includes periprocedural. In no way, is this a reference to any of the procedures/surgeries that this patient has undergone. Given his prolonged hospital course, this rim-enhancing fluid collection could be from any of a number of causes, and was not mentioned in any way to refer to the percutaneous jejunostomy, which (once again) is in excellent position. In addition, the percutaneous cholecystostomy tube is not transhepatic, but e nters the gallbladder directly (on imaging). Labs Labs: Laboratory Results - last 24 hr 11/21/24 11/21/24 11/22/24 17:40 23:55 05:19 WBC 10.4 H RBC 2.92 L Hgb 8.5 L Hct 27.5 L MCV 94.2 MCH 29.1 MCHC 30.9 L RDW 18.4 H Plt Count 315 MPV 11.4 H Immature Gran % (Auto) 0.5 Neut % (Auto) 59.5 Lymph % (Auto) 24.3 [place] % (Auto) 10.7 H Eos % (Auto) 4.5 H Baso % (Auto) 0.5 Lymph # (Auto) 2.54 [place] # (Auto) 1.1 H Eos # (Auto) 0.5 H Baso # (Auto) 0.1 Abs Immat Gran (auto) 0.05 H Absolute Neuts (auto) 6.2 Absolute Nucleated RBC 0.000 Nucleated RBC % 0.0 Sodium 144 Potassium 4.1 Chloride 112 H Carbon Dioxide 25 Anion Gap 7 BUN 16 Creatinine 0.75 Estim Creat Clear Calc 77 Estimated GFR > 60 Glucose 94 POC Capillary Glucose 104 109 H Calcium 8.4 Phosphorus 4.5 Magnesium 1.6 Total Bilirubin 0.8 AST 44 ALT 22 Alkaline Phosphatase 149 H Total Protein 7.0 Albumin 2.8 L 11/22/24 11/22/24 05:57 11:24 WBC RBC Hgb Hct MCV MCH MCHC RDW Plt Count MPV Immature Gran % (Auto) Neut % (Auto) Lymph % (Auto) [place] % (Auto) Eos % (Auto) Baso % (Auto) Lymph # (Auto) [place] # (Auto) Eos # (Auto) Baso # (Auto) Abs Immat Gran (auto) Absolute Neuts (auto) Absolute Nucleated RBC Nucleated RBC % Sodium Potassium Chloride Carbon Dioxide Anion Gap BUN Creatinine Estim Creat Clear Calc Estimated GFR Glucose POC Capillary Glucose 107 H 108 H Calcium Phosphorus Magnesium Total Bilirubin AST ALT Alkaline Phosphatase Total Protein Albumin
[2024-11-22 19:37] VITALS: BP 114/67; PULSE 90; RESP 24; TEMP 36.3; O2SAT 100
[2024-11-22 21:00] VITALS: PULSE 90
[2024-11-23 04:08] VITALS: BP 105/56; PULSE 79; RESP 32; TEMP 36.9; O2SAT 100
[2024-11-23] MEDS: MEROPENEM 1 GM/NS 100 ML 1 GM/100 ML BAG IVPB ×3 (05:40→21:21)
[2024-11-23] MEDS: CENTRAL LINE FLUSH 10 ML IV PUSH ×3 (05:41→21:24)
[2024-11-23 06:07] LABS: Hematocrit 26.6 % (42.0-52.0); Hemoglobin 8.1 g/dL (14.0-18.0); Immature Granulocyte Percent A 0.6 % (0-0.5); Lymphocytes Absolute Auto 1.90 K/mm3 (0.9-3.2); Mean Corpuscular HGB Conc 30.5 g/dl (32-36); Mean Corpuscular Hemoglobin 28.7 pg (26-34); Mean Corpuscular Volume 94.3 fl (80-100); Nucleated Red Blood Cells Absolute Auto 0.000 K/mm3 (0.0-0.012); Nucleated Red Blood Cells Perc 0.0 % (0.0-0.2); Platelet Count Result 320 k/mm3 (150-375); Red Blood Count 2.82 M/mm3 (4.6-6.20); White Blood Count 10.2 K/mm3 (4.5-10.0)
[2024-11-23 06:15] LABS: Albumin Level 2.7 g/dL (3.5-5.1); Anion Gap 6 mmol/L (4-12); Blood Urea Nitrogen 18 mg/dL (9-20); Calcium 8.7 mg/dL (8.4-10.2); Carbon Dioxide 25 mmol/L (22-30); Chloride 112 mmol/L (98-107); Estimated CRCL calculation 83 ml/min; Estimated Glomerular Filt Rate > 60; Glucose 111 mg/dL (65-110); Magnesium 1.7 mg/dL (1.6-2.3); Potassium 4.1 mmol/L (3.4-5.0); Sodium 143 mmol/L (137-145)
[2024-11-23] MEDS: SACCHAROMYCES BOULARDII 250 MG CAPSULE FEED TUBE (08:48)
[2024-11-23] MEDS: FOLIC ACID 1 MG TABLET FEED TUBE (08:48)
[2024-11-23] MEDS: PANTOPRAZOLE SODIUM IV 40 MG VIAL IV PUSH (08:48)
[2024-11-23] MEDS: ENOXAPARIN 40 MG/0.4 ML SYRINGE SUB-Q (08:48)
[2024-11-23] MEDS: THIAMINE HCL 100 MG TABLET FEED TUBE (08:48)
[2024-11-23] MEDS: ROSUVASTATIN 10 MG TABLET FEED TUBE (08:48)
[2024-11-23 08:49] VITALS: PULSE 80
[2024-11-23] MEDS: ASPIRIN 81 MG CHEWABLE TABLET FEED TUBE (08:49)
[2024-11-23] MEDS: COLLAGENASE OINT 30 GM TUBE 1 APPLIC TOPICAL ×2 (08:52→21:21)
--- NOTE | 2024-11-23 12:35 | PM.IMPN ---
Progress Note: A&P Assessment and Plan (1) Shock: Code(s): R57.9 - Shock, unspecified Status: Acute Assessment and Plan: Patient initially presented with septic shock Patient has developed new hypotension 11/08/2024. Suspect aspiration pneumonia versus UTI as patient has had Michelle for more than 2 weeks., or persistent C diff infection CT chest abdomen pelvis ABDOMEN/PELVIS: 1. Free air is seen anteriorly around the liver with minimal fluid. 2. Significant ascites in the pelvis. Drainage tube is seen in the left side of the pelvis. 3. Cholelithiasis with thickened wall of the gallbladder. Evaluation for cholecystitis advised. 4. Slightly dilated small bowel loops in the left upper abdomen which may indicate ileus follow-up advised. 5. Right renal cysts Blood, sputum culture culture are negative till now Michelle changed and UA sent procalcitonin level 8.2 Continue Dificid and meropenem Patient was given IV fluid bolus and now off of IV fluids Off 25% albumin Off Levophed infusion Blood pressure fluctuating. But more stable now 11/14/2024 worsened leukocytosis with hypotension up to 28 K. Meropenem and vancomycin added. Ultrasound with cholecystitis now status post cholecystostomy tube placement 11/15/2024. Continue meropenem. Fluid culture with Gram-positive cocci in chains on anaerobic culture. Aerobic culture no growth to date. Will continue meropenem 11/19/2024: Intermittent fever starts. Chest x-ray with clear lungs right-sided PICC line in place. Urinalysis negative. Blood culture x2 obtained. Repeat CT 11/19 with rim enhancing fluid collection within the right mid to upper abdomen measuring 8.5 cm in greatest dimension likely intra-abdominal abscess. Persistent cystic duct obstruction. The small bowel of the right lower quadrant is also minimally distended and hyperemic. Free fluid within the pelvis, denser than one would expect for simple fluid with attenuation values of 20. IR for catheter placement 11/20. Stuart to be an infected hematoma BCx 11/19 NGTD Hematoma Cultures 11/20 NGTD Vancomycin 11/14 to 11/19 Continue meropenem (11/08) (2) Metabolic encephalopathy: Code(s): G93.41 - Metabolic encephalopathy Status: Acute Assessment and Plan: Patient has had Altered mental status since admission which is multifactorial Patient was evaluated by Neurology and suspected to have metabolic encephalopathy. -CT brain on presented was negative for intracranial abnormalities. Repeat CT scan 11/08 also unremarkable -MRI cannot be performed as patient was in the [place] and may have sharpnel exposure according to his daughter -10/19: Repeat CT brain did not show any acute intracranial hemorrhage or suspicious mass effect, inflammatory sinus disease. -10/19: CT facial bones showed extensive sinus disease with near complete opacification of the right maxillary sinus and dependently layering fluid in the bilateral sphenoid sinuses. Dental and periodontal disease with periapical lucency surrounding the posterior most remaining right maxillary molar His ammonia level was normal Lumbar puncture 10/31/2024 with mildly elevated opening pressure of 23 cm water and high protein. 6 RBC/1 WBC with 100% lymphocytes. HSV II PCR negative. WNV negative. Much improved today. Monitor mental status (3) Acute kidney injury: Code(s): N17.9 - Acute kidney failure, unspecified Status: Acute Assessment and Plan: ICU: Patient presented with Acute kidney injury which improved with IV fluids Now the creatinine has again went up I suspect this is due to hypovolemia and sepsis Fully replaced CT scan reviewed Patient was given IV fluids and creatinine improving. Hold further IV fluid Although his intake and output show that he is significantly volume overloaded. He has had FMS with diarrhea which makes I&Os inaccurate. He does have minimal edema on exam Nephrology following Monitor urine output electrolytes and creatinine CK level is normal Earlier in the course CT scan of the abdomen and pelvis did not show any hydronephrosis or stones and renal ultrasound also showed No hydronephrosis or renal calculi, no apparent, findings to suggest the presence of medical renal disease. Simple cyst within the right kidney ALEJANDRO has now resolved (4) Anemia: Code(s): D64.9 - Anemia, unspecified Status: Acute Assessment and Plan: in ICU: Patient was anemic on presentation and received 2 units of PRBC. He was evaluate by Hematology Stool culture was negative and vitamin B12 were normal Folic acid was low and was supplement -iron panel was unremarkable He had EGD on 11/01 which showed gastritis and previous gastric surgery Hemoglobin dropped to 5.2 which could be partially dilutional versus GI loss 11/09 Transfuse 2 units PRBC Was holding Lovenox and use SCDs but Lovenox now resumed Continue protonix Hgb slowly trending down. Monitor hemoglobin (5) Thrombocytopenia: Code(s): D69.6 - Thrombocytopenia, unspecified Status: Acute Assessment and Plan: Thrombocytopenia related to sepsis; this has improved High platelet count at this time suggest hemoconcentration Resolved (6) Hyperkalemia: Code(s): E87.5 - Hyperkalemia Status: Acute Assessment and Plan: Hyperkalemia with ALEJANDRO Calcium gluconate, insulin and D50, bicarb received Lokelma in ICU IV fluid bolus Now resolved (7) C. difficile diarrhea: Code(s): A04.72 - Enterocolitis due to Clostridium difficile, not specified as recurrent Status: Acute Assessment and Plan: CT abdomen pelvis reviewed Diarrhea improved. IV Flagyl stopped 11/09 Dificid completed on 11/18. Documented stool output minimal. Monitor stool output. Stop fecal containment system (8) Acute respiratory failure: Code(s): J96.00 - Acute respiratory failure, unspecified whether with hypoxia or hypercapnia Status: Acute Assessment and Plan: Resolved Plan DVT Prophylaxis - SCDs;Lovenox Code status - Full Subjective Date/time seen: 11/23/24 12:35 Interval history: 69yo male with HTN, gout, cancer, and hyperlipidemia (obtained via medication history, patient unable to confirm) presented here with fall, altered mental status, and hypotension on 10/17/24. Found to have septic shock started on Levophed and admitted to ICU. CT chest abdomen pelvis with no acute findings. Face CT with extensive sinus disease with near complete opacification of the right maxillary sinus and dependently layering fluid in the bilateral sphenoid sinuses. Patent was getting better. off Levophed on 10/18. Initially was on Cefepime and vancomycin but it was discontinued as there was no source on infection and neg blood cultures. On 10/19 patient had fever started on Rocephin for possible UTI vs sinusitis. C diff was positive on 10/22/24 started on oral Vancomycin and concluded on 11/01/24. AMS evaluation with MRI/CT/EEG unremarkable except for sinusitis. Lumbar puncture 10/31/2024 with mildly elevated opening pressure of 23 cm water and high protein. 6 RBC/1 WBC with 100% lymphocytes. HSV II PCR negative. WNV negative. patient also had Alejandro and rhabdomyolysis which received IVF. Patient also had pancytopenia. Hematology oncology on board. Platelet improved. patient failed barium swallow . surgery team was consulted underwent J-tube placement on 11/07 rapid response was called on 11/08/24 because of respiratory failure, hypotension, lactic acidosis. Patient was intubated and admitted to ICU.Ct concerning for cholecystitis and ileus. surgery team on board recommended to monitor patient has been on Dificid and meropenem patient gradually improving was transferred out of ICU 11/13/24 11/14/24 patient has been hypotensive and tachycardic this morning. receive IVF bolus. I saw and examined patient bedside. geovanna any chest pain, SOB, abd pain,N/V. Patient had worsening leukocytosis. Also has Alejandro I lactic acid 2.5, magnesium 1.4. treatment started for severe sepsis. Will give IV fluid. Continue with meropenem. Vancomycin was added. Surgery team on board. Plan for right upper quadrant ultrasound to evaluate cholecystitis. Blood cultures pending 11/15/24 Patient was seen and examined at bedside. awake but not following/answering questions. hypotension improved .WBC improving US showed cholecystitis. plan for cholecystostomy tube placement. 11/16/2024 No overnight events. Discussed with nursing staff. Awake follow some commands. Labs reviewed. Status post cholecystostomy tube placed. 11/17/2024: No events. Patient remains afebrile. Labs reviewed. Discussed with nursing staff. 11/18/2024: No overnight events. J-tube feeding has been started. At 20 cc an hour. NG in place. 11/19/2024: Mild grade fever noted off and on. Blood culture obtained. He is more alert and awake and interactive otherwise clinically improving. Liquid stool in bag. 11/20/2024: Mild fever persist. CT findings reviewed. Going for CT catheter placement today. Awake alert and interactive. Labs reviewed. Discussed with nursing staff. 11/21/2024: Assuming care. Chart reviewed. Patient arouses but somnolent and does not follow commands. 11/22/2024: Patient more alert but remains nonverbal. 11/23/2024: Patient more alert and talkative. He remains confused. Review of Systems Review of Systems: ROS unobtainable: Yes unobtainable due to mental status Exam Narrative: AF 98.4 105/56 80 16 100% ra Gen - NARD HEENT - dried crusted areas to tongue and lips but better Chest - clear anteriorly to quiet respirations. CV - RRR S1/S2 Abd - JTube site is clean, dry and intact. Cholecystostomy tube with bilious fluid in bag. Drain in place with scant amount of bloody drainage. Abd soft, +BS - Michelle secured draining clear yellow urine; FCS in place Ext - No pedal edema Neuro - more alert and talkative; remains confused. Psych - in good spirits Skin - Warm and dry Objective Data Vital Signs Vital Signs: Vital Signs - 24 hr 11/22/24 14:00 11/22/24 19:37 11/22/24 21:00 Temperature 97.9 F 97.3 F L Pulse Rate 67 90 90 Respiratory Rate 18 24 H Blood Pressure 111/63 114/67 Pulse Oximetry 100 100 Oxygen Delivery 11/23/24 04:08 11/23/24 08:45 11/23/24 08:49 Temperature 98.4 F Pulse Rate 79 80 Respiratory Rate 32 H Blood Pressure 105/56 L Pulse Oximetry 100 Oxygen Delivery Room Air Intake/Output Intake/Output: Intake & Output 11/20/24 11/21/24 11/22/24 11/23/24 23:59 23:59 23:59 23:59 Intake Total 1183 1182 600 700 Output Total 7654 171 0153 366 Balance -97 352 -1555 334 Meds/Results Medications: Active Medications Generic Name Dose Route Start Last Admin Trade Name Freq PRN Reason Stop Dose Admin Acetaminophen 650 mg 11/13/24 21:07 11/19/24 03:09 Acetaminophen Elixir 325 Mg/10.15 Ml Udc FEED TUBE 650 mg Q6H PRN Administration Fever >101 Allopurinol 100 mg 11/15/24 09:00 11/23/24 08:48 Allopurinol 100 Mg Tablet FEED TUBE 100 mg DAILY JHONY Administration Alteplase, Recombinant 2 mg 11/20/24 13:51 11/20/24 14:30 Alteplase 2 Mg Vial (Cathflo) IV PUSH 2 mg ONCE PRN Administration Line Occlusion Amlodipine Besylate 5 mg 11/22/24 09:00 11/23/24 08:48 Amlodipine Besylate 5 Mg Tablet FEED TUBE 5 mg DAILY JHONY Administration Aspirin 81 mg 11/04/24 08:00 11/23/24 08:49 Aspirin 81 Mg Chewable Tablet FEED TUBE 81 mg DAILY@0800 JHONY Administration Carvedilol 6.25 mg 11/22/24 09:00 11/23/24 08:49 Carvedilol 6.25 Mg Tablet FEED TUBE 6.25 mg Q12HR JHONY Administration Collagenase 1 applic 11/13/24 09:00 11/23/24 08:52 Collagenase Oint 30 Gm Tube TOPICAL 1 applic Q12HR JHONY Administration Dextrose 12.5 gm 10/17/24 21:26 10/30/24 05:55 Dextrose 50% 25 Gm/50 Ml Syringe IV PUSH 12.5 gm PRN PRN Administration Hypoglycemia Protocol Enoxaparin Sodium 40 mg 11/02/24 09:00 11/23/24 08:48 Enoxaparin 40 Mg/0.4 Ml Syringe SUB-Q 40 mg DAILY JHONY Administration Folic Acid 1 mg 10/24/24 09:00 11/23/24 08:48 Folic Acid 1 Mg Tablet FEED TUBE 1 mg QAM JHONY Administration Glucagon 1 mg 10/17/24 21:26 Glucagon For Inj 1 Mg Vial IM PRN PRN Hypoglycemia Protocol Glucose 15 gm 11/13/24 21:07 Glucose Oral Gel 15 Gm Of Glucse In 37.5 Gm Tube FEED TUBE PRN PRN Hypoglycemia Protocol Dextrose 1,000 mls @ 100 mls/hr 10/17/24 21:26 Dextrose 5% 1,000 Ml IVPB PRN PRN Hypoglycemia Protocol Meropenem 1 gm in 100 mls @ 200 mls/hr 11/19/24 17:00 11/23/24 06:10 IVPB Infused Q8HR JHONY Infusion Insulin Aspart 3 - 6 units 11/08/24 12:00 11/23/24 06:37 Insulin Aspart (*Bkc) 100 Units/Ml SUB-Q Not Given Q6HR JHONY Protocol Pantoprazole Sodium 40 mg 11/19/24 09:00 11/23/24 08:48 Pantoprazole Sodium Iv 40 Mg Vial IV PUSH 40 mg QAM JHONY Administration Rosuvastatin Calcium 10 mg 11/04/24 09:00 11/23/24 08:48 Rosuvastatin 10 Mg Tablet FEED TUBE 10 mg DAILY JHONY Administration Saccharomyces Boulardii 250 mg 11/14/24 09:00 11/23/24 08:48 Saccharomyces Boulardii 250 Mg Capsule FEED TUBE 250 mg DAILY JHONY Administration Sodium Chloride 10 ml 11/08/24 14:00 11/23/24 05:41 Central Line Flush IV PUSH 10 ml Q8HR JHONY Administration Sodium Chloride 10 ml 11/08/24 08:15 Central Line Flush IV PUSH PRN PRN with TPN bag changes Sodium Chloride 20 ml 11/08/24 08:15 11/11/24 06:50 Central Line Flush IV PUSH 20 ml PRN PRN Administration after blood draws Thiamine HCl 100 mg 10/24/24 09:00 11/23/24 08:48 Thiamine Hcl 100 Mg Tablet FEED TUBE 100 mg QAM JHONY Administration Radiology Results: ITS Impressions Face CT 10/19/24 09:39 IMPRESSION: 1. Extensive sinus disease with near complete opacification of the right maxillary sinus and dependently layering fluid in the bilateral sphenoid sinuses. Correlate clinically for acute sinusitis. 2. Dental and periodontal disease with periapical lucency surrounding the posterior most remaining right maxillary molar. Renal Ultrasound 10/19/24 09:48 IMPRESSION: No hydronephrosis or renal calculi. No parenchymal findings to suggest the presence of medical renal disease. Simple cysts within the right kidney, for which no further follow-up is needed. Brain MRI 10/24/24 14:22 IMPRESSION: 1. Age-related changes the brain. No acute intracranial process. 2. Prominent sinus disease with fluid nearly filling the right maxillary sinus and layering dependently in the bilateral sphenoid sinuses. Correlate clinically for acute sinusitis. Lumbar Puncture Fluoroscopy 10/31/24 17:34 IMPRESSION: 1. Successful fluoro-guided lumbar puncture with mildly elevated opening pressure of 23 cm water. Modified Barium Swallow 11/06/24 10:05 IMPRESSION: Nondiagnostic study as all contents either leaked or were actively expelled from the mouth. No swallows were able to be evaluated. Please correlate with speech pathologist findings and specific feeding recommendations. Abdomen X-Ray 11/08/24 07:55 Impression: NG tube in satisfactory position. Probable small bowel obstruction. Chest/Abdomen/Pelvis CT 11/08/24 09:59 IMPRESSION: CHEST: 1. Right basilar atelectasis versus pneumonia with pleural effusion. 2. No other acute cardiopulmonary pathology. ABDOMEN/PELVIS: 1. Free air is seen anteriorly around the liver with minimal fluid. 2. Significant ascites in the pelvis. Drainage tube is seen in the left side of the pelvis. 3. Cholelithiasis with thickened wall of the gallbladder. Evaluation for cholecystitis advised. 4. Slightly dilated small bowel loops in the left upper abdomen which may indicate ileus follow-up advised. 5. Right renal cysts. Upper GI Series 11/09/24 13:49 IMPRESSION: 1. Left lower quadrant jejunostomy tube in expected position with injected contrast opacifying the normal-appearing jejunum with no extraluminal leakage of contrast. Head CT 11/14/24 05:17 Impression: No intracranial hemorrhage, mass, or acute infarct. Atrophy and chronic white matter changes, as above. Abdomen Ultrasound 11/14/24 15:13 IMPRESSION: Highly suggestive cholecystitis with cholelithiasis and gallbladder sludge. Clinical correlation advised. Minimal ascites. Minimal right pleural effusion. Cholecystostomy 11/15/24 16:04 IMPRESSION: 1. Successful ultrasound-guided cholecystostomy tube placement. 2. 13 mL bile was sent for aerobic, anaerobic, and fungal cultures. 3. The catheter will be managed by Dr. Ortiz. A catheter cholangiogram may be performed not less than 48 hours after tube placement if clinically indicated to assess cystic duct patency. If cholecystectomy is not eventually performed and the infectious episode has resolved, the tube may be removed over a guidewire, preferably not less than 3 weeks after placement to allow time for a mature catheter tract to form to prevent bile leakage and peritonitis. Chest X-Ray 11/19/24 08:55 Impression: Clear lungs. Right-sided PICC line in place. Abdomen/Pelvis CT 11/19/24 16:10 IMPRESSION: Rim-enhancing fluid collection within the right mid to upper abdomen measuring 8.5 cm in greatest dimension, for which intra-abdominal abscess is suspected. Percutaneous cholecystostomy catheter in good position with persistent cystic duct obstruction. Trace intra-abdominal ascites within the left mid to upper abdomen and within the pelvis. Catheter Placement CT 11/20/24 17:00 IMPRESSION: Technically successful CT-guided 10 Serbian drainage catheter placement within a (likely)perioperative infected hematoma, as detailed above. Specimen was sent for the culture evaluation. The catheter will need to be forwarded flushed (towards the patient and towards the drainage catheter) twice daily with 10 cc of normal saline. ADDENDUM: 11/22/24 1113 IMPRESSION: Technically successful CT-guided 10 Serbian drainage catheter placement within a (likely)perioperative infected hematoma, as detailed above. Of note, perioperative includes periprocedural. In no way, is this a reference to any of the procedures/surgeries that this patient has undergone. Given his prolonged hospital course, this rim-enhancing fluid collection could be from any of a number of causes, and was not mentioned in any way to refer to the percutaneous jejunostomy, which (once again) is in excellent position. In addition, the percutaneous cholecystostomy tube is not transhepatic, but enters the gallbladder directly (on imaging). Labs Labs: Laboratory Results - last 24 hr 11/22/24 11/23/24 11/23/24 17:39 00:02 04:12 WBC RBC Hgb Hct MCV MCH MCHC RDW Plt Count MPV Immature Gran % (Auto) Neut % (Auto) Lymph % (Auto) Haskell % (Auto) Eos % (Auto) Baso % (Auto) Lymph # (Auto) [place] # (Auto) Eos # (Auto) Baso # (Auto) Abs Immat Gran (auto) Absolute Neuts (auto) Absolute Nucleated RBC Nucleated RBC % Sodium Potassium Chloride Carbon Dioxide Anion Gap BUN Creatinine Estim Creat Clear Calc Estimated GFR Glucose POC Capillary Glucose 103 115 H 109 H Calcium Phosphorus Magnesium Albumin 11/23/24 11/23/24 05:54 11:08 WBC 10.2 H RBC 2.82 L Hgb 8.1 L Hct 26.6 L MCV 94.3 MCH 28.7 MCHC 30.5 L RDW 18.1 H Plt Count 320 MPV 11.2 H Immature Gran % (Auto) 0.6 H Neut % (Auto) 62.8 Lymph % (Auto) 18.6 [place] % (Auto) 10.5 H Eos % (Auto) 6.8 H Baso % (Auto) 0.7 Lymph # (Auto) 1.90 Haskell # (Auto) 1.1 H Eos # (Auto) 0.7 H Baso # (Auto) 0.1 Abs Immat Gran (auto) 0.06 H Absolute Neuts (auto) 6.4 Absolute Nucleated RBC 0.000 Nucleated RBC % 0.0 Sodium 143 Potassium 4.1 Chloride 112 H Carbon Dioxide 25 Anion Gap 6 BUN 18 Creatinine 0.69 L Estim Creat Clear Calc 83 Estimated GFR > 60 Glucose 111 H POC Capillary Glucose 105 Calcium 8.7 Phosphorus 4.7 H Magnesium 1.7 Albumin 2.7 L
--- NOTE | 2024-11-23 12:58 | PCNFU ---
Nutrition Follow-Up Complete: Inadequate Oral Intake as related to AMS as evidenced by NPO. Goal:Meet estimated nutritional needs Pt meeting goal via tube feeding Pt current nutrition is Jevity 1.5 @ 50ml/hr with 100ml flush q 4 hrs. This totals: 1650kcals, 70g protein, 1436ml free water . Nutrition recommendation: Advance tube feed to GOAL rate of 55ml/hr to better meet needs. Last recorded weight is 68.8 kg. Bowel Motility:+BM per FMS 11/22 Labs Reviewed: Hgb:8.1, HCT:26.6, alb:2.7, Cr:0.69, Glu:111 Meds Noted: folic acid, lovenox, novolog, protonix Skin: WNL Additional Notes: Pt continues on a tube feeding, currently at 50ml/hr and tolerating. Recommend to advance to 55ml/hr per GOAL rate to meet estimated needs (1815kcals). Notified nursing. will monitor weight, labs, skin, diet orders, meds. Follow up every Tuesday and Tuesday.
[2024-11-23 14:00] VITALS: BP 157/79; PULSE 79; RESP 16; TEMP 37.2; O2SAT 100
[2024-11-23 19:23] VITALS: BP 106/58; PULSE 75; RESP 18; TEMP 36.7; O2SAT 99
[2024-11-23 21:23] VITALS: PULSE 75
[2024-11-24 05:50] VITALS: BP 116/62; PULSE 82; RESP 19; TEMP 37; O2SAT 99
[2024-11-24] MEDS: MEROPENEM 1 GM/NS 100 ML 1 GM/100 ML BAG IVPB ×3 (05:57→21:35)
[2024-11-24] MEDS: CENTRAL LINE FLUSH 10 ML IV PUSH ×3 (06:01→21:41)
[2024-11-24 06:06] LABS: Hematocrit 28.7 % (42.0-52.0); Hemoglobin 8.3 g/dL (14.0-18.0); Immature Granulocyte Percent A 0.3 % (0-0.5); Lymphocytes Absolute Auto 2.27 K/mm3 (0.9-3.2); Mean Corpuscular HGB Conc 28.9 g/dl (32-36); Mean Corpuscular Hemoglobin 29.0 pg (26-34); Mean Corpuscular Volume 100.3 fl (80-100); Nucleated Red Blood Cells Absolute Auto 0.000 K/mm3 (0.0-0.012); Nucleated Red Blood Cells Perc 0.0 % (0.0-0.2); Platelet Count Result 298 k/mm3 (150-375); Red Blood Count 2.86 M/mm3 (4.6-6.20); White Blood Count 10.5 K/mm3 (4.5-10.0)
[2024-11-24 06:17] LABS: Alanine Aminotransferase 27 U/L (6-50); Albumin Level 2.6 g/dL (3.5-5.1); Alkaline Phosphatase 144 U/L (38-126); Anion Gap 4 mmol/L (4-12); Aspartate Amino Transferase 50 U/L (17-59); Bilirubin,Total 0.7 mg/dL (0.2-1.3); Blood Urea Nitrogen 17 mg/dL (9-20); Calcium 8.6 mg/dL (8.4-10.2); Carbon Dioxide 25 mmol/L (22-30); Chloride 112 mmol/L (98-107); Estimated CRCL calculation 85 ml/min; Estimated Glomerular Filt Rate > 60; Glucose 109 mg/dL (65-110); Potassium 4.2 mmol/L (3.4-5.0); Sodium 141 mmol/L (137-145); Total Protein 6.8 g/dL (6.3-8.2)
[2024-11-24 07:02] LABS: Anisocytosis 1+; Schistocytes None Seen
[2024-11-24 08:37] VITALS: PULSE 70
[2024-11-24] MEDS: ROSUVASTATIN 10 MG TABLET FEED TUBE (08:37)
[2024-11-24] MEDS: FAMOTIDINE 20 MG TABLET FEED TUBE ×2 (08:37→21:32)
[2024-11-24] MEDS: COLLAGENASE OINT 30 GM TUBE 1 APPLIC TOPICAL ×2 (08:37→21:36)
[2024-11-24] MEDS: ASPIRIN 81 MG CHEWABLE TABLET FEED TUBE (08:37)
[2024-11-24] MEDS: FOLIC ACID 1 MG TABLET FEED TUBE (08:37)
[2024-11-24] MEDS: SACCHAROMYCES BOULARDII 250 MG CAPSULE FEED TUBE (08:37)
[2024-11-24] MEDS: THIAMINE HCL 100 MG TABLET FEED TUBE (08:37)
[2024-11-24] MEDS: ENOXAPARIN 40 MG/0.4 ML SYRINGE SUB-Q (08:38)
--- NOTE | 2024-11-24 10:53 | PM.IMPN ---
Progress Note: A&P Assessment and Plan (1) Shock: Code(s): R57.9 - Shock, unspecified Status: Acute Assessment and Plan: Patient initially presented with septic shock Patient has developed new hypotension 11/08/2024. Suspect aspiration pneumonia versus UTI as patient has had Michelle for more than 2 weeks., or persistent C diff infection CT chest abdomen pelvis ABDOMEN/PELVIS: 1. Free air is seen anteriorly around the liver with minimal fluid. 2. Significant ascites in the pelvis. Drainage tube is seen in the left side of the pelvis. 3. Cholelithiasis with thickened wall of the gallbladder. Evaluation for cholecystitis advised. 4. Slightly dilated small bowel loops in the left upper abdomen which may indicate ileus follow-up advised. 5. Right renal cysts Blood, sputum culture culture are negative till now Michelle changed and UA sent procalcitonin level 8.2 Continue Dificid and meropenem Patient was given IV fluid bolus and now off of IV fluids Off 25% albumin Off Levophed infusion Blood pressure fluctuating. But more stable now 11/14/2024 worsened leukocytosis with hypotension up to 28 K. Meropenem and vancomycin added. Ultrasound with cholecystitis now status post cholecystostomy tube placement 11/15/2024. Continue meropenem. Fluid culture with Gram-positive cocci in chains on anaerobic culture. Aerobic culture no growth to date. Will continue meropenem 11/19/2024: Intermittent fever starts. Chest x-ray with clear lungs right-sided PICC line in place. Urinalysis negative. Blood culture x2 obtained. Repeat CT 11/19 with rim enhancing fluid collection within the right mid to upper abdomen measuring 8.5 cm in greatest dimension likely intra-abdominal abscess. Persistent cystic duct obstruction. The small bowel of the right lower quadrant is also minimally distended and hyperemic. Free fluid within the pelvis, denser than one would expect for simple fluid with attenuation values of 20. IR for catheter placement 11/20. [place] to be an infected hematoma BCx 11/18 Negative BCx 11/19 NGTD Hematoma Cultures 11/20 NGTD Vancomycin 11/14 to 11/19 Continue meropenem (11/08) Day 4 since source control (2) Metabolic encephalopathy: Code(s): G93.41 - Metabolic encephalopathy Status: Acute Assessment and Plan: Patient has had Altered mental status since admission which is multifactorial Patient was evaluated by Neurology and suspected to have metabolic encephalopathy. -CT brain on presented was negative for intracranial abnormalities. Repeat CT scan 11/08 also unremarkable -MRI cannot be performed as patient was in the [place] and may have sharpnel exposure according to his daughter -10/19: Repeat CT brain did not show any acute intracranial hemorrhage or suspicious mass effect, inflammatory sinus disease. -10/19: CT facial bones showed extensive sinus disease with near complete opacification of the right maxillary sinus and dependently layering fluid in the bilateral sphenoid sinuses. Dental and periodontal disease with periapical lucency surrounding the posterior most remaining right maxillary molar His ammonia level was normal Lumbar puncture 10/31/2024 with mildly elevated opening pressure of 23 cm water and high protein. 6 RBC/1 WBC with 100% lymphocytes. HSV II PCR negative. WNV negative. Much improved. Monitor mental status (3) Acute kidney injury: Code(s): N17.9 - Acute kidney failure, unspecified Status: Acute Assessment and Plan: ICU: Patient presented with Acute kidney injury which improved with IV fluids Now the creatinine has again went up I suspect this is due to hypovolemia and sepsis Fully replaced CT scan reviewed Patient was given IV fluids and creatinine improving. Hold further IV fluid Although his intake and output show that he is significantly volume overloaded. He has had FMS with diarrhea which makes I&Os inaccurate. He does have minimal edema on exam Nephrology following Monitor urine output electrolytes and creatinine CK level is normal Earlier in the course CT scan of the abdomen and pelvis did not show any hydronephrosis or stones and renal ultrasound also showed No hydronephrosis or renal calculi, no apparent, findings to suggest the presence of medical renal disease. Simple cyst within the right kidney ALEJANDRO has now resolved (4) Anemia: Code(s): D64.9 - Anemia, unspecified Status: Acute Assessment and Plan: in ICU: Patient was anemic on presentation and received 2 units of PRBC. He was evaluate by Hematology Stool culture was negative and vitamin B12 were normal Folic acid was low and was supplement -iron panel was unremarkable He had EGD on 11/01 which showed gastritis and previous gastric surgery Hemoglobin dropped to 5.2 which could be partially dilutional versus GI loss 11/09 Transfuse 2 units PRBC Was holding Lovenox and use SCDs but Lovenox now resumed Continue protonix Hgb low but stable in the 8 range. Monitor hemoglobin (5) Thrombocytopenia: Code(s): D69.6 - Thrombocytopenia, unspecified Status: Acute Assessment and Plan: Thrombocytopenia related to sepsis; this has improved High platelet count at this time suggest hemoconcentration Resolved (6) Hyperkalemia: Code(s): E87.5 - Hyperkalemia Status: Acute Assessment and Plan: Hyperkalemia with ALEJANDRO Calcium gluconate, insulin and D50, bicarb received Lokelma in ICU IV fluid bolus Now resolved (7) C. difficile diarrhea: Code(s): A04.72 - Enterocolitis due to Clostridium difficile, not specified as recurrent Status: Acute Assessment and Plan: CT abdomen pelvis reviewed Diarrhea improved. IV Flagyl stopped 11/09 Dificid completed on 11/18. Documented stool output minimal. Monitor stool output. Fecal containment system stopped 11/23 Continue isolation since incontinent (8) Acute respiratory failure: Code(s): J96.00 - Acute respiratory failure, unspecified whether with hypoxia or hypercapnia Status: Acute Assessment and Plan: Resolved Plan DVT Prophylaxis - SCDs;Lovenox Code status - Full Subjective Date/time seen: 11/24/24 10:53 Interval history: 69yo male with HTN, gout, cancer, and hyperlipidemia (obtained via medication history, patient unable to confirm) presented here with fall, altered mental status, and hypotension on 10/17/24. Found to have septic shock started on Levophed and admitted to ICU. CT chest abdomen pelvis with no acute findings. Face CT with extensive sinus disease with near complete opacification of the right maxillary sinus and dependently layering fluid in the bilateral sphenoid sinuses. Patent was getting better. off Levophed on 10/18. Initially was on Cefepime and vancomycin but it was discontinued as there was no source on infection and neg blood cultures. On 10/19 patient had fever started on Rocephin for possible UTI vs sinusitis. C diff was positive on 10/22/24 started on oral Vancomycin and concluded on 11/01/24. AMS evaluation with MRI/CT/EEG unremarkable except for sinusitis. Lumbar puncture 10/31/2024 with mildly elevated opening pressure of 23 cm water and high protein. 6 RBC/1 WBC with 100% lymphocytes. HSV II PCR negative. WNV negative. patient also had Alejandro and rhabdomyolysis which received IVF. Patient also had pancytopenia. Hematology oncology on board. Platelet improved. patient failed barium swallow . surgery team was consulted underwent J-tube placement on 11/07 rapid response was called on 11/08/24 because of respiratory failure, hypotension, lactic acidosis. Patient was intubated and admitted to ICU.Ct concerning for cholecystitis and ileus. surgery team on board recommended to monitor patient has been on Dificid and meropenem patient gradually improving was transferred out of ICU 11/13/24 11/14/24 patient has been hypotensive and tachycardic this morning. receive IVF bolus. I saw and examined patient bedside. geovanna any chest pain, SOB, abd pain,N/V. Patient had worsening leukocytosis. Also has Alejandro I lactic acid 2.5, magnesium 1.4. treatment started for severe sepsis. Will give IV fluid. Continue with meropenem. Vancomycin was added. Surgery team on board. Plan for right upper quadrant ultrasound to evaluate cholecystitis. Blood cultures pending 11/15/24 Patient was seen and examined at bedside. awake but not following/answering questions. hypotension improved .WBC improving US showed cholecystitis. plan for cholecystostomy tube placement. 11/16/2024 No overnight events. Discussed with nursing staff. Awake follow some commands. Labs reviewed. Status post cholecystostomy tube placed. 11/17/2024: No events. Patient remains afebrile. Labs reviewed. Discussed with nursing staff. 11/18/2024: No overnight events. J-tube feeding has been started. At 20 cc an hour. NG in place. 11/19/2024: Mild grade fever noted off and on. Blood culture obtained. He is more alert and awake and interactive otherwise clinically improving. Liquid stool in bag. 11/20/2024: Mild fever persist. CT findings reviewed. Going for CT catheter placement today. Awake alert and interactive. Labs reviewed. Discussed with nursing staff. 11/21/2024: Assuming care. Chart reviewed. Patient arouses but somnolent and does not follow commands. 11/22/2024: Patient more alert but remains nonverbal. 11/23/2024: Patient more alert and talkative. He remains confused. 11/24/2024: Patient awake, alert but confused. Fecal containment system is out. Appears to be biting his lip causing the bleeding. Review of Systems Review of Systems: ROS unobtainable: Yes unobtainable due to mental status Exam Narrative: AF 98.6 116/62 70 19 99% ra Gen - NARD HEENT - dried blackish matl noted on tongue and less so on lips that is improved Chest - clear to quiet respirations. CV - RRR S1/S2 Abd - JTube site is clean, dry and intact. Cholecystostomy tube with small amount of bilious fluid in bag. Drain in place with scant amount of bloody drainage. Abd soft, +BS - Michelle secured draining clear yellow urine Ext - No pedal edema Neuro - awake and alert; remains confused. Psych - in good spirits Skin - Warm and dry Objective Data Vital Signs Vital Signs: Vital Signs - 24 hr 11/23/24 14:00 11/23/24 19:23 11/23/24 21:23 Temperature 99 F 98.1 F Pulse Rate 79 75 75 Respiratory Rate 16 18 Blood Pressure 157/79 H 106/58 L Pulse Oximetry 100 99 11/24/24 05:50 11/24/24 08:37 Temperature 98.6 F Pulse Rate 82 70 Respiratory Rate 19 Blood Pressure 116/62 Pulse Oximetry 99 Intake/Output Intake/Output: Intake & Output 11/21/24 11/22/24 11/23/24 11/24/24 23:59 23:59 23:59 23:59 Intake Total 5752 462 3383 100 Output Total 830 2155 916 610 Balance 352 -6215 84 -510 Meds/Results Medications: Active Medications Generic Name Dose Route Start Last Admin Trade Name Freq PRN Reason Stop Dose Admin Acetaminophen 650 mg 11/13/24 21:07 11/19/24 03:09 Acetaminophen Elixir 325 Mg/10.15 Ml Udc FEED TUBE 650 mg Q6H PRN Administration Fever >101 Allopurinol 100 mg 11/15/24 09:00 11/24/24 08:37 Allopurinol 100 Mg Tablet FEED TUBE 100 mg DAILY JHONY Administration Alteplase, Recombinant 2 mg 11/20/24 13:51 11/20/24 14:30 Alteplase 2 Mg Vial (Cathflo) IV PUSH 2 mg ONCE PRN Administration Line Occlusion Amlodipine Besylate 5 mg 11/22/24 09:00 11/24/24 08:37 Amlodipine Besylate 5 Mg Tablet FEED TUBE 5 mg DAILY JHONY Administration Aspirin 81 mg 11/04/24 08:00 11/24/24 08:37 Aspirin 81 Mg Chewable Tablet FEED TUBE 81 mg DAILY@0800 JHONY Administration Carvedilol 6.25 mg 11/22/24 09:00 11/24/24 08:37 Carvedilol 6.25 Mg Tablet FEED TUBE 6.25 mg Q12HR JHONY Administration Collagenase 1 applic 11/13/24 09:00 11/24/24 08:37 Collagenase Oint 30 Gm Tube TOPICAL 1 applic Q12HR JHONY Administration Dextrose 12.5 gm 10/17/24 21:26 10/30/24 05:55 Dextrose 50% 25 Gm/50 Ml Syringe IV PUSH 12.5 gm PRN PRN Administration Hypoglycemia Protocol Enoxaparin Sodium 40 mg 11/02/24 09:00 11/24/24 08:38 Enoxaparin 40 Mg/0.4 Ml Syringe SUB-Q 40 mg DAILY JHONY Administration Famotidine 20 mg 11/24/24 09:00 11/24/24 08:37 Famotidine 20 Mg Tablet FEED TUBE 20 mg Q12HR JHONY Administration Folic Acid 1 mg 10/24/24 09:00 11/24/24 08:37 Folic Acid 1 Mg Tablet FEED TUBE 1 mg QAM JHONY Administration Glucagon 1 mg 10/17/24 21:26 Glucagon For Inj 1 Mg Vial IM PRN PRN Hypoglycemia Protocol Glucose 15 gm 11/13/24 21:07 Glucose Oral Gel 15 Gm Of Glucse In 37.5 Gm Tube FEED TUBE PRN PRN Hypoglycemia Protocol Dextrose 1,000 mls @ 100 mls/hr 10/17/24 21:26 Dextrose 5% 1,000 Ml IVPB PRN PRN Hypoglycemia Protocol Meropenem 1 gm in 100 mls @ 200 mls/hr 11/19/24 17:00 11/24/24 06:27 IVPB Infused Q8HR JHONY Infusion Insulin Aspart 3 - 6 units 11/08/24 12:00 11/24/24 07:36 Insulin Aspart (*Bkc) 100 Units/Ml SUB-Q Not Given Q6HR [facility] Protocol Rosuvastatin Calcium 10 mg 11/04/24 09:00 11/24/24 08:37 Rosuvastatin 10 Mg Tablet FEED TUBE 10 mg DAILY JHONY Administration Saccharomyces Boulardii 250 mg 11/14/24 09:00 11/24/24 08:37 Saccharomyces Boulardii 250 Mg Capsule FEED TUBE 250 mg DAILY JHONY Administration Sodium Chloride 10 ml 11/08/24 14:00 11/24/24 06:01 Central Line Flush IV PUSH 10 ml Q8HR JHONY Administration Sodium Chloride 10 ml 11/08/24 08:15 Central Line Flush IV PUSH PRN PRN with TPN bag changes Sodium Chloride 20 ml 11/08/24 08:15 11/11/24 06:50 Central Line Flush IV PUSH 20 ml PRN PRN Administration after blood draws Thiamine HCl 100 mg 10/24/24 09:00 11/24/24 08:37 Thiamine Hcl 100 Mg Tablet FEED TUBE 100 mg QAM JHONY Administration Radiology Results: ITS Impressions Face CT 10/19/24 09:39 IMPRESSION: 1. Extensive sinus disease with near complete opacification of the right maxillary sinus and dependently layering fluid in the bilateral sphenoid sinuses. Correlate clinically for acute sinusitis. 2. Dental and periodontal disease with periapical lucency surrounding the posterior most remaining right maxillary molar. Renal Ultrasound 10/19/24 09:48 IMPRESSION: No hydronephrosis or renal calculi. No parenchymal findings to suggest the presence of medical renal disease. Simple cysts within the right kidney, for which no further follow-up is needed. Brain MRI 10/24/24 14:22 IMPRESSION: 1. Age-related changes the brain. No acute intracranial process. 2. Prominent sinus disease with fluid nearly filling the right maxillary sinus and layering dependently in the bilateral sphenoid sinuses. Correlate clinically for acute sinusitis. Lumbar Puncture Fluoroscopy 10/31/24 17:34 IMPRESSION: 1. Successful fluoro-guided lumbar puncture with mildly elevated opening pressure of 23 cm water. Modified Barium Swallow 11/06/24 10:05 IMPRESSION: Nondiagnostic study as all contents either leaked or were actively expelled from the mouth. No swallows were able to be evaluated. Please correlate with speech pathologist findings and specific feeding recommendations. Abdomen X-Ray 11/08/24 07:55 Impression: NG tube in satisfactory position. Probable small bowel obstruction. Chest/Abdomen/Pelvis CT 11/08/24 09:59 IMPRESSION: CHEST: 1. Right basilar atelectasis versus pneumonia with pleural effusion. 2. No other acute cardiopulmonary pathology. ABDOMEN/PELVIS: 1. Free air is seen anteriorly around the liver with minimal fluid. 2. Significant ascites in the pelvis. Drainage tube is seen in the left side of the pelvis. 3. Cholelithiasis with thickened wall of the gallbladder. Evaluation for cholecystitis advised. 4. Slightly dilated small bowel loops in the left upper abdomen which may indicate ileus follow-up advised. 5. Right renal cysts. Upper GI Series 11/09/24 13:49 IMPRESSION: 1. Left lower quadrant jejunostomy tube in expected position with injected contrast opacifying the normal-appearing jejunum with no extraluminal leakage of contrast. Head CT 11/14/24 05:17 Impression: No intracranial hemorrhage, mass, or acute infarct. Atrophy and chronic white matter changes, as above. Abdomen Ultrasound 11/14/24 15:13 IMPRESSION: Highly suggestive cholecystitis with cholelithiasis and gallbladder sludge. Clinical correlation advised. Minimal ascites. Minimal right pleural effusion. Cholecystostomy 11/15/24 16:04 IMPRESSION: 1. Successful ultrasound-guided cholecystostomy tube placement. 2. 13 mL bile was sent for aerobic, anaerobic, and fungal cultures. 3. The catheter will be managed by Dr. Ortiz. A catheter cholangiogram may be performed not less than 48 hours after tube placement if clinically indicated to assess cystic duct patency. If cholecystectomy is not eventually performed and the infectious episode has resolved, the tube may be removed over a guidewire, preferably not less than 3 weeks after placement to allow time for a mature catheter tract to form to prevent bile leakage and peritonitis. Chest X-Ray 11/19/24 08:55 Impression: Clear lungs. Right-sided PICC line in place. Abdomen/Pelvis CT 11/19/24 16:10 IMPRESSION: Rim-enhancing fluid collection within the right mid to upper abdomen measuring 8.5 cm in greatest dimension, for which intra-abdominal abscess is suspected. Percutaneous cholecystostomy catheter in good position with persistent cystic duct obstruction. Trace intra-abdominal ascites within the left mid to upper abdomen and within the pelvis. Catheter Placement CT 11/20/24 17:00 IMPRESSION: Technically successful CT-guided 10 Czech drainage catheter placement within a (likely)perioperative infected hematoma, as detailed above. Specimen was sent for the culture evaluation. The catheter will need to be forwarded flushed (towards the patient and towards the drainage catheter) twice daily with 10 cc of normal saline. ADDENDUM: 11/22/24 1113 IMPRESSION: Technically successful CT-guided 10 Czech drainage catheter placement within a (likely)perioperative infected hematoma, as detailed above. Of note, perioperative includes periprocedural. In no way, is this a reference to any of the procedures/surgeries that this patient has undergone. Given his prolonged hospital course, this rim-enhancing fluid collection could be from any of a number of causes, and was not mentioned in any way to refer to the percutaneous jejunostomy, which (once again) is in excellent position. In addition, the percutaneous cholecystostomy tube is not transhepatic, but enters the gallbladder directly (on imaging). Labs Labs: Laboratory Results - last 24 hr 11/23/24 11/23/24 11/23/24 11:08 17:53 23:46 WBC RBC Hgb Hct MCV MCH MCHC RDW Plt Count MPV Immature Gran % (Auto) Neut % (Auto) Lymph % (Auto) Hand % (Auto) Eos % (Auto) Baso % (Auto) Lymph # (Auto) Hand # (Auto) Eos # (Auto) Baso # (Auto) Abs Immat Gran (auto) Absolute Neuts (auto) Absolute Nucleated RBC Band Neutrophils % Nucleated RBC % Platelet Estimate Anisocytosis Schistocytes Sodium Potassium Chloride Carbon Dioxide Anion Gap BUN Creatinine Estim Creat Clear Calc Estimated GFR Glucose POC Capillary Glucose 105 112 H 114 H Calcium Total Bilirubin AST ALT Alkaline Phosphatase Total Protein Albumin 11/24/24 05:55 WBC 10.5 H RBC 2.86 L Hgb 8.3 L Hct 28.7 L MCV 100.3 H D MCH 29.0 MCHC 28.9 L RDW 18.1 H Plt Count 298 MPV 11.4 H Immature Gran % (Auto) 0.3 Neut % (Auto) 62.4 Lymph % (Auto) 21.6 Hand % (Auto) 9.0 H Eos % (Auto) 6.1 H Baso % (Auto) 0.6 Lymph # (Auto) 2.27 Hand # (Auto) 0.9 H Eos # (Auto) 0.6 H Baso # (Auto) 0.1 Abs Immat Gran (auto) 0.03 Absolute Neuts (auto) 6.6 Absolute Nucleated RBC 0.000 Band Neutrophils % Not Reportable Nucleated RBC % 0.0 Platelet Estimate Adequate Anisocytosis 1+ Schistocytes None seen Sodium 141 Potassium 4.2 Chloride 112 H Carbon Dioxide 25 Anion Gap 4 BUN 17 Creatinine 0.67 L Estim Creat Clear Calc 85 Estimated GFR > 60 Glucose 109 POC Capillary Glucose 110 H Calcium 8.6 Total Bilirubin 0.7 AST 50 ALT 27 Alkaline Phosphatase 144 H Total Protein 6.8 Albumin 2.6 L
--- NOTE | 2024-11-24 12:55 | PCSTNOTE ---
Please refer to the Bedside Swallow Evaluation in the EMR. Please note, silent aspiration cannot be ruled out at bedside. Modified Barium Swallow study suggested. Plan of care will be completed should physician decide to start ST and/or complete MBS.
[2024-11-24 14:00] VITALS: BP 109/57; PULSE 75; RESP 16; TEMP 36.6; O2SAT 100
[2024-11-24 21:32] VITALS: PULSE 68
[2024-11-24 21:58] VITALS: BP 132/82; PULSE 77; RESP 18; TEMP 36.7; O2SAT 100
[2024-11-25 06:00] VITALS: BP 121/81; PULSE 72; RESP 18; TEMP 36.8; O2SAT 100
[2024-11-25] MEDS: MEROPENEM 1 GM/NS 100 ML 1 GM/100 ML BAG IVPB ×3 (06:07→21:27)
[2024-11-25] MEDS: CENTRAL LINE FLUSH 10 ML IV PUSH ×3 (06:08→21:27)
[2024-11-25] MEDS: CENTRAL LINE FLUSH 20 ML IV PUSH (06:08)
[2024-11-25 06:21] LABS: Estimated CRCL calculation 91 ml/min; Estimated Glomerular Filt Rate > 60
[2024-11-25] MEDS: ROSUVASTATIN 10 MG TABLET FEED TUBE (09:33)
[2024-11-25] MEDS: FOLIC ACID 1 MG TABLET FEED TUBE (09:33)
[2024-11-25] MEDS: THIAMINE HCL 100 MG TABLET FEED TUBE (09:33)
[2024-11-25] MEDS: ASPIRIN 81 MG CHEWABLE TABLET FEED TUBE (09:33)
[2024-11-25] MEDS: FAMOTIDINE 20 MG TABLET FEED TUBE ×2 (09:34→20:33)
[2024-11-25] MEDS: SACCHAROMYCES BOULARDII 250 MG CAPSULE FEED TUBE (09:34)
[2024-11-25] MEDS: ENOXAPARIN 40 MG/0.4 ML SYRINGE SUB-Q (09:34)
[2024-11-25 09:35] VITALS: PULSE 76
[2024-11-25] MEDS: COLLAGENASE OINT 30 GM TUBE 1 APPLIC TOPICAL ×2 (10:25→20:33)
--- NOTE | 2024-11-25 11:57 | P.PNIM_ITS ---
Progress Note: A&P Assessment and Plan (1) Shock: Code(s): R57.9 - Shock, unspecified Status: Acute Assessment and Plan: Patient initially presented with septic shock Patient has developed new hypotension 11/08/2024. Suspect aspiration pneumonia versus UTI as patient has had Michelle for more than 2 weeks., or persistent C diff infection CT chest abdomen pelvis ABDOMEN/PELVIS: 1. Free air is seen anteriorly around the liver with minimal fluid. 2. Significant ascites in the pelvis. Drainage tube is seen in the left side of the pelvis. 3. Cholelithiasis with thickened wall of the gallbladder. Evaluation for cholecystitis advised. 4. Slightly dilated small bowel loops in the left upper abdomen which may indicate ileus follow-up advised. 5. Right renal cysts Blood, sputum culture culture are negative till now Michelle changed and UA sent procalcitonin level 8.2 Continue Dificid and meropenem Patient was given IV fluid bolus and now off of IV fluids Off 25% albumin Off Levophed infusion Blood pressure fluctuating. But more stable now 11/14/2024 worsened leukocytosis with hypotension up to 28 K. Meropenem and vancomycin added. Ultrasound with cholecystitis now status post cholecystostomy tube placement 11/15/2024. Continue meropenem. Fluid culture with Gram-positive cocci in chains on anaerobic culture. Aerobic culture no growth to date. Will continue meropenem 11/19/2024: Intermittent fever starts. Chest x-ray with clear lungs right- sided PICC line in place. Urinalysis negative. Blood culture x2 obtained. Repeat CT 11/19 with rim enhancing fluid collection within the right mid to upper abdomen measuring 8.5 cm in greatest dimension likely intra-abdominal abscess. Persistent cystic duct obstruction. The small bowel of the right lower quadrant is also minimally distended and hyperemic. Free fluid within the pelvis, denser than one would expect for simple fluid with attenuation values of 20. IR for catheter placement 11/20. [place] to be an infected hematoma BCx 11/18 Negative BCx 11/19 NGTD Hematoma Cultures 11/20 NGTD Vancomycin 11/14 to 11/19 Continue meropenem (11/08) Day 5 since source control (2) Metabolic encephalopathy: Code(s): G93.41 - Metabolic encephalopathy Status: Acute Assessment and Plan: Patient has had Altered mental status since admission which is multifactorial Patient was evaluated by Neurology and suspected to have metabolic encephalopathy. -CT brain on presented was negative for intracranial abnormalities. Repeat CT scan 11/08 also unremarkable -MRI cannot be performed as patient was in the [place] and may have sharpnel exposure according to his daughter -10/19: Repeat CT brain did not show any acute intracranial hemorrhage or suspicious mass effect, inflammatory sinus disease. -10/19: CT facial bones showed extensive sinus disease with near complete opacification of the right maxillary sinus and dependently layering fluid in the bilateral sphenoid sinuses. Dental and periodontal disease with periapical lucency surrounding the posterior most remaining right maxillary molar His ammonia level was normal Lumbar puncture 10/31/2024 with mildly elevated opening pressure of 23 cm water and high protein. 6 RBC/1 WBC with 100% lymphocytes. HSV II PCR negative. WNV negative. Improved. Monitor mental status. Increase activity as tolerated. (3) Acute kidney injury: Code(s): N17.9 - Acute kidney failure, unspecified Status: Acute Assessment and Plan: ICU: Patient presented with Acute kidney injury which improved with IV fluids Now the creatinine has again went up I suspect this is due to hypovolemia and sepsis Fully replaced CT scan reviewed Patient was given IV fluids and creatinine improving. Hold further IV fluid Although his intake and output show that he is significantly volume overloaded. He has had FMS with diarrhea which makes I&Os inaccurate. He does have minimal edema on exam Nephrology following Monitor urine output electrolytes and creatinine CK level is normal Earlier in the course CT scan of the abdomen and pelvis did not show any hydronephrosis or stones and renal ultrasound also showed No hydronephrosis or renal calculi, no apparent, findings to suggest the presence of medical renal disease. Simple cyst within the right kidney SATHISH has now resolved (4) Anemia: Code(s): D64.9 - Anemia, unspecified Status: Acute Assessment and Plan: in ICU: Patient was anemic on presentation and received 2 units of PRBC. He was evaluate by Hematology Stool culture was negative and vitamin B12 were normal Folic acid was low and was supplement -iron panel was unremarkable He had EGD on 11/01 which showed gastritis and previous gastric surgery Hemoglobin dropped to 5.2 which could be partially dilutional versus GI loss 11/09 Transfuse 2 units PRBC Was holding Lovenox and use SCDs but Lovenox now resumed Continue protonix Hgb low but stable in the 8 range. Monitor hemoglobin (5) Thrombocytopenia: Code(s): D69.6 - Thrombocytopenia, unspecified Status: Acute Assessment and Plan: Thrombocytopenia related to sepsis; this has improved High platelet count at this time suggest hemoconcentration Resolved (6) Hyperkalemia: Code(s): E87.5 - Hyperkalemia Status: Acute Assessment and Plan: Hyperkalemia with SATHISH Calcium gluconate, insulin and D50, bicarb received Lokelma in ICU IV fluid bolus Now resolved (7) C. difficile diarrhea: Code(s): A04.72 - Enterocolitis due to Clostridium difficile, not specified as recurrent Status: Acute Assessment and Plan: CT abdomen pelvis reviewed Diarrhea improved. IV Flagyl stopped 11/09 Dificid completed on 11/18. Documented stool output minimal. Monitor stool output. Fecal containment system stopped 11/23 Continue isolation since incontinent (8) Acute respiratory failure: Code(s): J96.00 - Acute respiratory failure, unspecified whether with hypoxia or hypercapnia Status: Acute Assessment and Plan: Resolved Plan DVT Prophylaxis - SCDs;Lovenox Code status - Full Subjective Date/time seen: 11/25/24 11:57 Interval history: 69yo male with HTN, gout, cancer, and hyperlipidemia (obtained via medication history, patient unable to confirm) presented here with fall, altered mental status, and hypotension on 10/17/24. Found to have septic shock started on Levophed and admitted to ICU. CT chest abdomen pelvis with no acute findings. Face CT with extensive sinus disease with near complete opacification of the right maxillary sinus and dependently layering fluid in the bilateral sphenoid sinuses. Patent was getting better. off Levophed on 10/18. Initially was on Cefepime and vancomycin but it was discontinued as there was no source on infection and neg blood cultures. On 10/19 patient had fever started on Rocephin for possible UTI vs sinusitis. C diff was positive on 10/22/24 started on oral Vancomycin and concluded on 11/01/24. AMS evaluation with MRI/CT/EEG unremarkable except for sinusitis. Lumbar puncture 10/31/2024 with mildly elevated opening pressure of 23 cm water and high protein. 6 RBC/1 WBC with 100% lymphocytes. HSV II PCR negative. WNV negative. patient also had Sathish and rhabdomyolysis which received IVF. Patient also had pancytopenia. Hematology oncology on board. Platelet improved. patient failed barium swallow . surgery team was consulted underwent J-tube placement on 11/07 rapid response was called on 11/08/24 because of respiratory failure, hypotension, lactic acidosis. Patient was intubated and admitted to ICU.Ct concerning for cholecystitis and ileus. surgery team on board recommended to monitor patient has been on Dificid and meropenem Patient gradually improving was transferred out of ICU 11/13/24 but the next day, he developed hypotensive and tachycardic that improved with fluid bolus. Also with worsening leukocytosis and lactic acidosis so treatment started for severe sepsis. Meropenem continued and Vancomycin was added. US showed cholecystitis. plan for cholecystostomy tube placement which was done on 11/15. On 11/19, he developed mild grade fever off and on. Blood cultures obtained. He is awake and more alert but unable to provide hx. Review of Systems Review of Systems: ROS unobtainable: Yes unobtainable due to mental status Exam Narrative: AF 98.2 121/81 76 18 100% ra Gen - NARD HEENT - dried blackish matl noted in oral cavity. Exam limited Chest - clear to quiet respirations. CV - RRR S1/S2 Abd - JTube site is clean, dry and intact. Cholecystostomy tube with scant amount of bilious fluid in bag. Rt sided abd drain in place with scant amount of bloody drainage. Abd soft, +BS Ext - No pedal edema Neuro - awake and alert; remains confused. Garbled speech Psych - in good spirits Skin - Warm and dry Objective Data Vital Signs Vital Signs: Vital Signs - 24 hr 11/24/24 14:00 11/24/24 21:32 11/24/24 21:58 Temperature 97.8 F 98.1 F Pulse Rate 75 68 77 Respiratory Rate 16 18 Blood Pressure 109/57 L 132/82 Pulse Oximetry 100 100 Oxygen Delivery 11/25/24 06:00 11/25/24 09:30 11/25/24 09:35 Temperature 98.2 F Pulse Rate 72 76 Respiratory Rate 18 Blood Pressure 121/81 Pulse Oximetry 100 Oxygen Delivery Room Air Intake/Output Intake/Output: Intake & Output 11/22/24 11/23/24 11/24/24 11/25/24 23:59 23:59 23:59 23:59 Intake Total 600 1000 300 Output Total 6945 916 910 400 Balance -1555 58 -610 400 Meds/Results Medications: Active Medications Generic Name Dose Route Start Last Admin Trade Name Freq PRN Reason Stop Dose Admin Acetaminophen 650 mg 11/13/24 21:07 11/19/24 03:09 Acetaminophen Elixir 325 Mg/10.15 Ml Udc FEED TUBE 650 mg Q6H PRN Administration Fever >101 Allopurinol 100 mg 11/15/24 09:00 11/25/24 09:34 Allopurinol 100 Mg Tablet FEED TUBE 100 mg DAILY JHONY Administration Alteplase, Recombinant 2 mg 11/20/24 13:51 11/20/24 14:30 Alteplase 2 Mg Vial (Cathflo) IV PUSH 2 mg ONCE PRN Administration Line Occlusion Amlodipine Besylate 5 mg 11/22/24 09:00 11/25/24 09:34 Amlodipine Besylate 5 Mg Tablet FEED TUBE 5 mg DAILY JHONY Administration Aspirin 81 mg 11/04/24 08:00 11/25/24 09:33 Aspirin 81 Mg Chewable Tablet FEED TUBE 81 mg DAILY@0800 JHONY Administration Carvedilol 6.25 mg 11/22/24 09:00 11/25/24 09:35 Carvedilol 6.25 Mg Tablet FEED TUBE 6.25 mg Q12HR JHONY Administration Collagenase 1 applic 11/13/24 09:00 11/25/24 10:25 Collagenase Oint 30 Gm Tube TOPICAL 1 applic Q12HR JHONY Administration Dextrose 12.5 gm 10/17/24 21:26 10/30/24 05:55 Dextrose 50% 25 Gm/50 Ml Syringe IV PUSH 12.5 gm PRN PRN Administration Hypoglycemia Protocol Enoxaparin Sodium 40 mg 11/02/24 09:00 11/25/24 09:34 Enoxaparin 40 Mg/0.4 Ml Syringe SUB-Q 40 mg DAILY JHONY Administration Famotidine 20 mg 11/24/24 09:00 11/25/24 09:34 Famotidine 20 Mg Tablet FEED TUBE 20 mg Q12HR JHONY Administration Folic Acid 1 mg 10/24/24 09:00 11/25/24 09:33 Folic Acid 1 Mg Tablet FEED TUBE 1 mg QAM JHONY Administration Glucagon 1 mg 10/17/24 21:26 Glucagon For Inj 1 Mg Vial IM PRN PRN Hypoglycemia Protocol Glucose 15 gm 11/13/24 21:07 Glucose Oral Gel 15 Gm Of Glucse In 37.5 Gm Tube FEED TUBE PRN PRN Hypoglycemia Protocol Dextrose 1,000 mls @ 100 mls/hr 10/17/24 21:26 Dextrose 5% 1,000 Ml IVPB PRN PRN Hypoglycemia Protocol Meropenem 1 gm in 100 mls @ 200 mls/hr 11/19/24 17:00 11/25/24 06:07 IVPB 100 mls/hr Q8HR JHONY Administration Insulin Aspart 3 - 6 units 11/08/24 12:00 11/25/24 07:00 Insulin Aspart (*Bkc) 100 Units/Ml SUB-Q Not Given Q6HR JHONY Protocol Rosuvastatin Calcium 10 mg 11/04/24 09:00 11/25/24 09:33 Rosuvastatin 10 Mg Tablet FEED TUBE 10 mg DAILY JHONY Administration Saccharomyces Boulardii 250 mg 11/14/24 09:00 11/25/24 09:34 Saccharomyces Boulardii 250 Mg Capsule FEED TUBE 250 mg DAILY JHONY Administration Sodium Chloride 10 ml 11/08/24 14:00 11/25/24 06:08 Central Line Flush IV PUSH 10 ml Q8HR JHONY Administration Sodium Chloride 10 ml 11/08/24 08:15 Central Line Flush IV PUSH PRN PRN with TPN bag changes Sodium Chloride 20 ml 11/08/24 08:15 11/25/24 06:08 Central Line Flush IV PUSH 20 ml PRN PRN Administration after blood draws Thiamine HCl 100 mg 10/24/24 09:00 11/25/24 09:33 Thiamine Hcl 100 Mg Tablet FEED TUBE 100 mg QAM JHONY Administration Radiology Results: ITS Impressions Face CT 10/19/24 09:39 IMPRESSION: 1. Extensive sinus disease with near complete opacification of the right maxillary sinus and dependently layering fluid in the bilateral sphenoid sinuses. Correlate clinically for acute sinusitis. 2. Dental and periodontal disease with periapical lucency surrounding the posterior most remaining right maxillary molar. Renal Ultrasound 10/19/24 09:48 IMPRESSION: No hydronephrosis or renal calculi. No parenchymal findings to suggest the presence of medical renal disease. Simple cysts within the right kidney, for which no further follow-up is needed. Brain MRI 10/24/24 14:22 IMPRESSION: 1. Age-related changes the brain. No acute intracranial process. 2. Prominent sinus disease with fluid nearly filling the right maxillary sinus and layering dependently in the bilateral sphenoid sinuses. Correlate clinically for acute sinusitis. Lumbar Puncture Fluoroscopy 10/31/24 17:34 IMPRESSION: 1. Successful fluoro-guided lumbar puncture with mildly elevated opening pressure of 23 cm water. Modified Barium Swallow 11/06/24 10:05 IMPRESSION: Nondiagnostic study as all contents either leaked or were actively expelled from the mouth. No swallows were able to be evaluated. Please correlate with speech pathologist findings and specific feeding recommendations. Abdomen X-Ray 11/08/24 07:55 Impression: NG tube in satisfactory position. Probable small bowel obstruction. Chest/Abdomen/Pelvis CT 11/08/24 09:59 IMPRESSION: CHEST: 1. Right basilar atelectasis versus pneumonia with pleural effusion. 2. No other acute cardiopulmonary pathology. ABDOMEN/PELVIS: 1. Free air is seen anteriorly around the liver with minimal fluid. 2. Significant ascites in the pelvis. Drainage tube is seen in the left side of the pelvis. 3. Cholelithiasis with thickened wall of the gallbladder. Evaluation for cholecystitis advised. 4. Slightly dilated small bowel loops in the left upper abdomen which may indicate ileus follow-up advised. 5. Right renal cysts. Upper GI Series 11/09/24 13:49 IMPRESSION: 1. Left lower quadrant jejunostomy tube in expected position with injected contrast opacifying the normal-appearing jejunum with no extraluminal leakage of contrast. Head CT 11/14/24 05:17 Impression: No intracranial hemorrhage, mass, or acute infarct. Atrophy and chronic white matter changes, as above. Abdomen Ultrasound 11/14/24 15:13 IMPRESSION: Highly suggestive cholecystitis with cholelithiasis and gallbladder sludge. Clinical correlation advised. Minimal ascites. Minimal right pleural effusion. Cholecystostomy 11/15/24 16:04 IMPRESSION: 1. Successful ultrasound-guided cholecystostomy tube placement. 2. 13 mL bile was sent for aerobic, anaerobic, and fungal cultures. 3. The catheter will be managed by Dr. Ortiz. A catheter cholangiogram may be performed not less than 48 hours after tube placement if clinically indicated to assess cystic duct patency. If cholecystectomy is not eventually performed and the infectious episode has resolved, the tube may be removed over a guidewire, preferably not less than 3 weeks after placement to allow time for a mature catheter tract to form to prevent bile leakage and peritonitis. Chest X-Ray 11/19/24 08:55 Impression: Clear lungs. Right-sided PICC line in place. Abdomen/Pelvis CT 11/19/24 16:10 IMPRESSION: Rim-enhancing fluid collection within the right mid to upper abdomen measuring 8.5 cm in greatest dimension, for which intra-abdominal abscess is suspected. Percutaneous cholecystostomy catheter in good position with persistent cystic duct obstruction. Trace intra-abdominal ascites within the left mid to upper abdomen and within the pelvis. Catheter Placement CT 11/20/24 17:00 IMPRESSION: Technically successful CT-guided 10 [place] drainage catheter placement within a (likely)perioperative infected hematoma, as detailed above. Specimen was sent for the culture evaluation. The catheter will need to be forwarded flushed (towards the patient and towards the drainage catheter) twice daily with 10 cc of normal saline. ADDENDUM: 11/22/24 1113 IMPRESSION: Technically successful CT-guided 10 [place] drainage catheter placement within a (likely)perioperative infected hematoma, as detailed above. Of note, perioperative includes periprocedural. In no way, is this a reference to any of the procedures/surgeries that this patient has undergone. Given his prolonged hospital course, this rim-enhancing fluid collection could be from any of a number of causes, and was not mentioned in any way to refer to the percutaneous jejunostomy, which (once again) is in excellent position. In addition, the percutaneous cholecystostomy tube is not transhepatic, but enters the gallbladder directly (on imaging). Labs Labs: Laboratory Results - last 24 hr 11/24/24 11/24/24 11/24/24 11:43 17:09 23:46 Creatinine Estim Creat Clear Calc Estimated GFR POC Capillary Glucose 111 H 116 H 116 H 11/25/24 11/25/24 11/25/24 06:00 07:00 11:40 Creatinine 0.62 L Estim Creat Clear Calc 91 Estimated GFR > 60 POC Capillary Glucose 115 H 103
[2024-11-25 14:00] VITALS: BP 110/52; PULSE 70; RESP 16; TEMP 36.5; O2SAT 100
[2024-11-25 22:00] VITALS: BP 107/58; PULSE 67; RESP 18; TEMP 36.8; O2SAT 100
[2024-11-25] MEDS: ALTEPLASE 2 MG VIAL (CATHFLO) IV PUSH ×2 (22:35→22:36)
[2024-11-26] VITALS (9 sets, daily range): BP systolic 96–117; BP diastolic 58–65; PULSE 71–79; RESP 12–18; TEMP 36.3–36.7; O2SAT 99–100; BMI 10.0
[2024-11-26] MEDS: MEROPENEM 1 GM/NS 100 ML 1 GM/100 ML BAG IVPB ×3 (05:19→22:14)
[2024-11-26] MEDS: CENTRAL LINE FLUSH 10 ML IV PUSH ×3 (05:20→22:15)
[2024-11-26 05:31] LABS: Hematocrit 25.5 % (42.0-52.0); Hemoglobin 7.9 g/dL (14.0-18.0); Immature Granulocyte Percent A 0.3 % (0-0.5); Lymphocytes Absolute Auto 1.98 K/mm3 (0.9-3.2); Mean Corpuscular HGB Conc 31.0 g/dl (32-36); Mean Corpuscular Hemoglobin 28.6 pg (26-34); Mean Corpuscular Volume 92.4 fl (80-100); Nucleated Red Blood Cells Absolute Auto 0.000 K/mm3 (0.0-0.012); Nucleated Red Blood Cells Perc 0.0 % (0.0-0.2); Platelet Count Result 294 k/mm3 (150-375); Red Blood Count 2.76 M/mm3 (4.6-6.20); White Blood Count 8.9 K/mm3 (4.5-10.0)
[2024-11-26 05:46] LABS: Alanine Aminotransferase 32 U/L (6-50); Albumin Level 2.7 g/dL (3.5-5.1); Alkaline Phosphatase 166 U/L (38-126); Anion Gap 6 mmol/L (4-12); Aspartate Amino Transferase 50 U/L (17-59); Bilirubin,Total 0.6 mg/dL (0.2-1.3); Blood Urea Nitrogen 18 mg/dL (9-20); CRP 1.9 mg/dL (<1.0); Calcium 8.7 mg/dL (8.4-10.2); Carbon Dioxide 24 mmol/L (22-30); Chloride 107 mmol/L (98-107); Estimated CRCL calculation 94 ml/min; Estimated Glomerular Filt Rate > 60; Glucose 111 mg/dL (65-110); Magnesium 1.6 mg/dL (1.6-2.3); Potassium 4.4 mmol/L (3.4-5.0); Sodium 137 mmol/L (137-145); Total Protein 6.9 g/dL (6.3-8.2)
[2024-11-26] MEDS: THIAMINE HCL 100 MG TABLET FEED TUBE (09:37)
[2024-11-26] MEDS: SACCHAROMYCES BOULARDII 250 MG CAPSULE FEED TUBE (09:37)
[2024-11-26] MEDS: FOLIC ACID 1 MG TABLET FEED TUBE (09:37)
[2024-11-26] MEDS: ENOXAPARIN 40 MG/0.4 ML SYRINGE SUB-Q (09:38)
[2024-11-26] MEDS: ASPIRIN 81 MG CHEWABLE TABLET FEED TUBE (09:38)
[2024-11-26] MEDS: COLLAGENASE OINT 30 GM TUBE 1 APPLIC TOPICAL ×2 (09:38→20:43)
[2024-11-26] MEDS: ROSUVASTATIN 10 MG TABLET FEED TUBE (09:38)
[2024-11-26] MEDS: FAMOTIDINE 20 MG TABLET FEED TUBE ×2 (09:38→20:44)
--- NOTE | 2024-11-26 16:07 | PM.IMPN ---
Progress Note: A&P Assessment and Plan (1) Shock: Code(s): R57.9 - Shock, unspecified Status: Acute Assessment and Plan: Patient initially presented with septic shock Patient has developed new hypotension 11/08/2024. Suspect aspiration pneumonia versus UTI as patient has had Michelle for more than 2 weeks., or persistent C diff infection CT chest abdomen pelvis ABDOMEN/PELVIS: 1. Free air is seen anteriorly around the liver with minimal fluid. 2. Significant ascites in the pelvis. Drainage tube is seen in the left side of the pelvis. 3. Cholelithiasis with thickened wall of the gallbladder. Evaluation for cholecystitis advised. 4. Slightly dilated small bowel loops in the left upper abdomen which may indicate ileus follow-up advised. 5. Right renal cysts Blood, sputum culture culture are negative till now Michelle changed and UA sent procalcitonin level 8.2 Continue Dificid and meropenem Patient was given IV fluid bolus and now off of IV fluids Off 25% albumin Off Levophed infusion Blood pressure fluctuating. But more stable now 11/14/2024 worsened leukocytosis with hypotension up to 28 K. Meropenem and vancomycin added. Ultrasound with cholecystitis now status post cholecystostomy tube placement 11/15/2024. Continue meropenem. Fluid culture with Gram-positive cocci in chains on anaerobic culture. Aerobic culture no growth to date. Will continue meropenem 11/19/2024: Intermittent fever starts. Chest x-ray with clear lungs right-sided PICC line in place. Urinalysis negative. Blood culture x2 obtained. Repeat CT 11/19 with rim enhancing fluid collection within the right mid to upper abdomen measuring 8.5 cm in greatest dimension likely intra-abdominal abscess. Persistent cystic duct obstruction. The small bowel of the right lower quadrant is also minimally distended and hyperemic. Free fluid within the pelvis, denser than one would expect for simple fluid with attenuation values of 20. IR for catheter placement 11/20. [place] to be an infected hematoma BCx 11/18 Negative BCx 11/19 NGTD Hematoma Cultures 11/20 Negative Vancomycin 11/14 to 11/19 Continue meropenem (11/08) Day 6 since source control but repeat CT showing persistent 8.7cm loculated fluid collection right abdomen. General surgery following. (2) Intra-abdominal abscess: Code(s): K65.1 - Peritoneal abscess Status: Acute Assessment and Plan: CT 11/19 showing a rim enhancing fluid collection within the right mid to upper abdomen measuring 8.5 cm IR placed a drain 11/20 and felt to be an infected hematoma Abd Abscess Cultures 11/20 Negative Vancomycin 11/14 to 11/19. Meropenem started 11/08 and Day [address] 11/26 showing persistent 8.7cm loculated fluid collection right abdomen. Repeat drain placement? Continue meroprenem. Gen Surgery following (3) Metabolic encephalopathy: Code(s): G93.41 - Metabolic encephalopathy Status: Acute Assessment and Plan: Patient has had Altered mental status since admission which is multifactorial Patient was evaluated by Neurology and suspected to have metabolic encephalopathy. -CT brain on presented was negative for intracranial abnormalities. Repeat CT scan 11/08 also unremarkable -MRI cannot be performed as patient was in the [place] and may have sharpnel exposure according to his daughter -10/19: Repeat CT brain did not show any acute intracranial hemorrhage or suspicious mass effect, inflammatory sinus disease. -10/19: CT facial bones showed extensive sinus disease with near complete opacification of the right maxillary sinus and dependently layering fluid in the bilateral sphenoid sinuses. Dental and periodontal disease with periapical lucency surrounding the posterior most remaining right maxillary molar His ammonia level was normal Lumbar puncture 10/31/2024 with mildly elevated opening pressure of 23 cm water and high protein. 6 RBC/1 WBC with 100% lymphocytes. HSV II PCR negative. WNV negative. Mental status improving since drain placed. Continue to monitor. Increase activity as tolerated. (4) Anemia: Code(s): D64.9 - Anemia, unspecified Status: Acute Assessment and Plan: in ICU: Patient was anemic on presentation and received 2 units of PRBC. He was evaluate by Hematology Stool culture was negative and vitamin B12 were normal Folic acid was low and was supplement -iron panel was unremarkable He had EGD on 11/01 which showed gastritis and previous gastric surgery Hemoglobin dropped to 5.2 which could be partially dilutional versus GI loss 11/09 Transfuse 2 units PRBC Was holding Lovenox and use SCDs but Lovenox now resumed Continue protonix Hgb low but stable in the 7-8 range. Monitor hemoglobin (5) C. difficile diarrhea: Code(s): A04.72 - Enterocolitis due to Clostridium difficile, not specified as recurrent Status: Acute Assessment and Plan: CT abdomen pelvis reviewed Diarrhea improved. IV Flagyl stopped 11/09 Dificid completed on 11/18. Fecal containment system stopped 11/23. Documented stool output noted Monitor stool output. Resume treatment if diarrhea recurs. (6) Acute kidney injury: Code(s): N17.9 - Acute kidney failure, unspecified Status: Acute Assessment and Plan: ICU: Patient presented with Acute kidney injury which improved with IV fluids Now the creatinine has again went up I suspect this is due to hypovolemia and sepsis Fully replaced CT scan reviewed Patient was given IV fluids and creatinine improving. Hold further IV fluid Although his intake and output show that he is significantly volume overloaded. He has had FMS with diarrhea which makes I&Os inaccurate. He does have minimal edema on exam Nephrology following Monitor urine output electrolytes and creatinine CK level is normal Earlier in the course CT scan of the abdomen and pelvis did not show any hydronephrosis or stones and renal ultrasound also showed No hydronephrosis or renal calculi, no apparent, findings to suggest the presence of medical renal disease. Simple cyst within the right kidney RESOLVED (7) Thrombocytopenia: Code(s): D69.6 - Thrombocytopenia, unspecified Status: Acute Assessment and Plan: Thrombocytopenia related to sepsis; this has improved High platelet count at this time suggest hemoconcentration RESOLVED (8) Hyperkalemia: Code(s): E87.5 - Hyperkalemia Status: Acute Assessment and Plan: Hyperkalemia with SATHISH Calcium gluconate, insulin and D50, bicarb received Lokelma in ICU IV fluid bolus RESOLVED (9) Acute respiratory failure: Code(s): J96.00 - Acute respiratory failure, unspecified whether with hypoxia or hypercapnia Status: Acute Assessment and Plan: RESOLVED Plan DVT Prophylaxis - SCDs;Lovenox Code status - Full Subjective Date/time seen: 11/26/24 16:07 Interval history: 69yo male with HTN, gout, cancer, and hyperlipidemia (obtained via medication history, patient unable to confirm) presented here with fall, altered mental status, and hypotension on 10/17/24. Found to have septic shock started on Levophed and admitted to ICU. CT chest abdomen pelvis with no acute findings. Face CT with extensive sinus disease with near complete opacification of the right maxillary sinus and dependently layering fluid in the bilateral sphenoid sinuses. Patent was getting better. off Levophed on 10/18. Initially was on Cefepime and vancomycin but it was discontinued as there was no source on infection and neg blood cultures. On 10/19 patient had fever started on Rocephin for possible UTI vs sinusitis. C diff was positive on 10/22/24 started on oral Vancomycin and concluded on 11/01/24. AMS evaluation with MRI/CT/EEG unremarkable except for sinusitis. Lumbar puncture 10/31/2024 with mildly elevated opening pressure of 23 cm water and high protein. 6 RBC/1 WBC with 100% lymphocytes. HSV II PCR negative. WNV negative. patient also had Sathish and rhabdomyolysis which received IVF. Patient also had pancytopenia. Hematology oncology on board. Platelet improved. patient failed barium swallow . surgery team was consulted underwent J-tube placement on 11/07 rapid response was called on 11/08/24 because of respiratory failure, hypotension, lactic acidosis. Patient was intubated and admitted to ICU.Ct concerning for cholecystitis and ileus. surgery team on board recommended to monitor patient has been on Dificid and meropenem Patient gradually improving was transferred out of ICU 11/13/24 but the next day, he developed hypotensive and tachycardic that improved with fluid bolus. Also with worsening leukocytosis and lactic acidosis so treatment started for severe sepsis. Meropenem continued and Vancomycin was added. US showed cholecystitis. plan for cholecystostomy tube placement which was done on 11/15. On 11/19, he developed mild grade fever off and on. Blood cultures obtained. He is awake and more alert. Unable to provide hx. Tolerating TF. Review of Systems Review of Systems: ROS unobtainable: Yes unobtainable due to mental status Exam Narrative: AF 97.4 104/60 72 18 99% ra Gen - NARD HEENT - dried blackish matl noted in oral cavity that appears improved. Exam limited Chest - clear to quiet respirations. CV - RRR S1/S2 Abd - Soft, ND, upper mid abd sumi along the healed midline scar. JTube site is clean, dry and intact. Cholecystostomy tube with scant amount of bilious fluid in bag. Rt sided abd drain in place with scant amount of bloody drainage. Ext - No pedal edema. Heel protectors in place Neuro - awake and alert; remains confused. Speech clear at times Psych - in good spirits Skin - Warm and dry Objective Data Vital Signs Vital Signs: Vital Signs - 24 hr 11/25/24 20:00 11/25/24 22:00 11/26/24 06:00 Temperature 98.2 F 98.1 F Pulse Rate 67 71 Respiratory Rate 18 18 Blood Pressure 107/58 L 113/63 Pulse Oximetry 100 100 Oxygen Delivery Room Air 11/26/24 09:36 11/26/24 09:37 11/26/24 09:50 Temperature Pulse Rate 71 71 Respiratory Rate Blood Pressure 117/65 Pulse Oximetry 100 Oxygen Delivery Room Air 11/26/24 14:25 11/26/24 15:39 Temperature 97.4 F L Pulse Rate 72 Respiratory Rate 18 Blood Pressure 96/62 L 104/60 Pulse Oximetry 99 Oxygen Delivery Intake/Output Intake/Output: Intake & Output 11/23/24 11/24/24 11/25/24 11/26/24 23:59 23:59 23:59 23:59 Intake Total 3876 427 3825 1007 Output Total 333 208 1417 1110 Balance 84 -610 3383 -103 Meds/Results Medications: Active Medications Generic Name Dose Route Start Last Admin Trade Name Freq PRN Reason Stop Dose Admin Acetaminophen 650 mg 11/13/24 21:07 11/19/24 03:09 Acetaminophen Elixir 325 Mg/10.15 Ml Udc FEED TUBE 650 mg Q6H PRN Administration Fever >101 Allopurinol 100 mg 11/15/24 09:00 11/26/24 09:38 Allopurinol 100 Mg Tablet FEED TUBE 100 mg DAILY JHONY Administration Alteplase, Recombinant 2 mg 11/20/24 13:51 11/25/24 22:36 Alteplase 2 Mg Vial (Cathflo) IV PUSH 2 mg ONCE PRN Administration Line Occlusion Amlodipine Besylate 5 mg 11/22/24 09:00 11/26/24 09:37 Amlodipine Besylate 5 Mg Tablet FEED TUBE 5 mg DAILY JHONY Administration Aspirin 81 mg 11/04/24 08:00 11/26/24 09:38 Aspirin 81 Mg Chewable Tablet FEED TUBE 81 mg DAILY@0800 JHONY Administration Carvedilol 6.25 mg 11/22/24 09:00 11/26/24 09:37 Carvedilol 6.25 Mg Tablet FEED TUBE 6.25 mg Q12HR JHONY Administration Collagenase 1 applic 11/13/24 09:00 11/26/24 09:38 Collagenase Oint 30 Gm Tube TOPICAL 1 applic Q12HR JHONY Administration Dextrose 12.5 gm 10/17/24 21:26 10/30/24 05:55 Dextrose 50% 25 Gm/50 Ml Syringe IV PUSH 12.5 gm PRN PRN Administration Hypoglycemia Protocol Enoxaparin Sodium 40 mg 11/02/24 09:00 11/26/24 09:38 Enoxaparin 40 Mg/0.4 Ml Syringe SUB-Q 40 mg DAILY JHONY Administration Famotidine 20 mg 11/24/24 09:00 11/26/24 09:38 Famotidine 20 Mg Tablet FEED TUBE 20 mg Q12HR JHONY Administration Folic Acid 1 mg 10/24/24 09:00 11/26/24 09:37 Folic Acid 1 Mg Tablet FEED TUBE 1 mg QAM JHONY Administration Glucagon 1 mg 10/17/24 21:26 Glucagon For Inj 1 Mg Vial IM PRN PRN Hypoglycemia Protocol Glucose 15 gm 11/13/24 21:07 Glucose Oral Gel 15 Gm Of Glucse In 37.5 Gm Tube FEED TUBE PRN PRN Hypoglycemia Protocol Dextrose 1,000 mls @ 100 mls/hr 10/17/24 21:26 Dextrose 5% 1,000 Ml IVPB PRN PRN Hypoglycemia Protocol Meropenem 1 gm in 100 mls @ 200 mls/hr 11/19/24 17:00 11/26/24 13:08 IVPB 200 mls/hr Q8HR JHONY Administration Insulin Aspart 3 - 6 units 11/08/24 12:00 11/26/24 12:07 Insulin Aspart (*Bkc) 100 Units/Ml SUB-Q Not Given Q6HR JHONY Protocol Rosuvastatin Calcium 10 mg 11/04/24 09:00 11/26/24 09:38 Rosuvastatin 10 Mg Tablet FEED TUBE 10 mg DAILY JHONY Administration Saccharomyces Boulardii 250 mg 11/14/24 09:00 11/26/24 09:37 Saccharomyces Boulardii 250 Mg Capsule FEED TUBE 250 mg DAILY JHONY Administration Sodium Chloride 10 ml 11/08/24 14:00 11/26/24 13:09 Central Line Flush IV PUSH 10 ml Q8HR JHONY Administration Sodium Chloride 10 ml 11/08/24 08:15 Central Line Flush IV PUSH PRN PRN with TPN bag changes Sodium Chloride 20 ml 11/08/24 08:15 11/25/24 06:08 Central Line Flush IV PUSH 20 ml PRN PRN Administration after blood draws Thiamine HCl 100 mg 10/24/24 09:00 11/26/24 09:37 Thiamine Hcl 100 Mg Tablet FEED TUBE 100 mg QAM JHONY Administration Radiology Results: ITS Impressions Face CT 10/19/24 09:39 IMPRESSION: 1. Extensive sinus disease with near complete opacification of the right maxillary sinus and dependently layering fluid in the bilateral sphenoid sinuses. Correlate clinically for acute sinusitis. 2. Dental and periodontal disease with periapical lucency surrounding the posterior most remaining right maxillary molar. Renal Ultrasound 10/19/24 09:48 IMPRESSION: No hydronephrosis or renal calculi. No parenchymal findings to suggest the presence of medical renal disease. Simple cysts within the right kidney, for which no further follow-up is needed. Brain MRI 10/24/24 14:22 IMPRESSION: 1. Age-related changes the brain. No acute intracranial process. 2. Prominent sinus disease with fluid nearly filling the right maxillary sinus and layering dependently in the bilateral sphenoid sinuses. Correlate clinically for acute sinusitis. Lumbar Puncture Fluoroscopy 10/31/24 17:34 IMPRESSION: 1. Successful fluoro-guided lumbar puncture with mildly elevated opening pressure of 23 cm water. Modified Barium Swallow 11/06/24 10:05 IMPRESSION: Nondiagnostic study as all contents either leaked or were actively expelled from the mouth. No swallows were able to be evaluated. Please correlate with speech pathologist findings and specific feeding recommendations. Abdomen X-Ray 11/08/24 07:55 Impression: NG tube in satisfactory position. Probable small bowel obstruction. Chest/Abdomen/Pelvis CT 11/08/24 09:59 IMPRESSION: CHEST: 1. Right basilar atelectasis versus pneumonia with pleural effusion. 2. No other acute cardiopulmonary pathology. ABDOMEN/PELVIS: 1. Free air is seen anteriorly around the liver with minimal fluid. 2. Significant ascites in the pelvis. Drainage tube is seen in the left side of the pelvis. 3. Cholelithiasis with thickened wall of the gallbladder. Evaluation for cholecystitis advised. 4. Slightly dilated small bowel loops in the left upper abdomen which may indicate ileus follow-up advised. 5. Right renal cysts. Upper GI Series 11/09/24 13:49 IMPRESSION: 1. Left lower quadrant jejunostomy tube in expected position with injected contrast opacifying the normal-appearing jejunum with no extraluminal leakage of contrast. Head CT 11/14/24 05:17 Impression: No intracranial hemorrhage, mass, or acute infarct. Atrophy and chronic white matter changes, as above. Abdomen Ultrasound 11/14/24 15:13 IMPRESSION: Highly suggestive cholecystitis with cholelithiasis and gallbladder sludge. Clinical correlation advised. Minimal ascites. Minimal right pleural effusion. Cholecystostomy 11/15/24 16:04 IMPRESSION: 1. Successful ultrasound-guided cholecystostomy tube placement. 2. 13 mL bile was sent for aerobic, anaerobic, and fungal cultures. 3. The catheter will be managed by Dr. Ortiz. A catheter cholangiogram may be performed not less than 48 hours after tube placement if clinically indicated to assess cystic duct patency. If cholecystectomy is not eventually performed and the infectious episode has resolved, the tube may be removed over a guidewire, preferably not less than 3 weeks after placement to allow time for a mature catheter tract to form to prevent bile leakage and peritonitis. Chest X-Ray 11/19/24 08:55 Impression: Clear lungs. Right-sided PICC line in place. Catheter Placement CT 11/20/24 17:00 IMPRESSION: Technically successful CT-guided 10 Irish drainage catheter placement within a (likely)perioperative infected hematoma, as detailed above. Specimen was sent for the culture evaluation. The catheter will need to be forwarded flushed (towards the patient and towards the drainage catheter) twice daily with 10 cc of normal saline. ADDENDUM: 11/22/24 1113 IMPRESSION: Technically successful CT-guided 10 Irish drainage catheter placement within a (likely)perioperative infected hematoma, as detailed above. Of note, perioperative includes periprocedural. In no way, is this a reference to any of the procedures/surgeries that this patient has undergone. Given his prolonged hospital course, this rim-enhancing fluid collection could be from any of a number of causes, and was not mentioned in any way to refer to the percutaneous jejunostomy, which (once again) is in excellent position. In addition, the percutaneous cholecystostomy tube is not transhepatic, but enters the gallbladder directly (on imaging). Abdomen/Pelvis CT 11/26/24 09:40 IMPRESSION: 1. Right abdominal percutaneous drainage catheter within a persistent 8.7 x 4.6 x 5.9 cm loculated fluid collection within the right abdomen which could represent hematoma or abscess. 2. Percutaneous cholecystostomy tube in expected position along with multiple gallstones within the gallbladder. 3. Small right pleural effusion with dependent atelectasis in the right lower lobe. 4. Diffuse body wall, mesenteric and retroperitoneal edema and small amount of ascites in the abdomen and pelvis. 5. Likely reactive abdominal lymphadenopathy. Labs Labs: Laboratory Results - last 24 hr 11/25/24 11/26/24 11/26/24 17:31 00:05 05:18 WBC 8.9 RBC 2.76 L Hgb 7.9 L Hct 25.5 L MCV 92.4 D MCH 28.6 MCHC 31.0 L RDW 17.4 H Plt Count 294 MPV 11.0 H Immature Gran % (Auto) 0.3 Neut % (Auto) 60.2 Lymph % (Auto) 22.2 [place] % (Auto) 9.8 H Eos % (Auto) 7.1 H Baso % (Auto) 0.4 Lymph # (Auto) 1.98 [place] # (Auto) 0.9 H Eos # (Auto) 0.6 H Baso # (Auto) 0.0 Abs Immat Gran (auto) 0.03 Absolute Neuts (auto) 5.4 Absolute Nucleated RBC 0.000 Nucleated RBC % 0.0 Sodium 137 Potassium 4.4 Chloride 107 Carbon Dioxide 24 Anion Gap 6 BUN 18 Creatinine 0.59 L Estim Creat Clear Calc 94 Estimated GFR > 60 Glucose 111 H POC Capillary Glucose 96 112 H Calcium 8.7 Phosphorus 4.5 Magnesium 1.6 Total Bilirubin 0.6 AST 50 ALT 32 Alkaline Phosphatase 166 H C-Reactive Protein 1.9 H Total Protein 6.9 Albumin 2.7 L 11/26/24 11:57 WBC RBC Hgb Hct MCV MCH MCHC RDW Plt Count MPV Immature Gran % (Auto) Neut % (Auto) Lymph % (Auto) [place] % (Auto) Eos % (Auto) Baso % (Auto) Lymph # (Auto) [place] # (Auto) Eos # (Auto) Baso # (Auto) Abs Immat Gran (auto) Absolute Neuts (auto) Absolute Nucleated RBC Nucleated RBC % Sodium Potassium Chloride Carbon Dioxide Anion Gap BUN Creatinine Estim Creat Clear Calc Estimated GFR Glucose POC Capillary Glucose 118 H Calcium Phosphorus Magnesium Total Bilirubin AST ALT Alkaline Phosphatase C-Reactive Protein Total Protein Albumin
[2024-11-27 04:43] VITALS: BP 109/58; PULSE 72; RESP 12; TEMP 36.7; O2SAT 100
[2024-11-27] MEDS: CENTRAL LINE FLUSH 10 ML IV PUSH ×3 (05:14→21:50)
[2024-11-27] MEDS: MEROPENEM 1 GM/NS 100 ML 1 GM/100 ML BAG IVPB (05:14)
--- NOTE | 2024-11-27 05:14 | PC.NURSE ---
pt refuses morning vitals
[2024-11-27 05:20] LABS: Hematocrit 25.1 % (42.0-52.0); Hemoglobin 7.9 g/dL (14.0-18.0); Immature Granulocyte Percent A 0.4 % (0-0.5); Lymphocytes Absolute Auto 2.08 K/mm3 (0.9-3.2); Mean Corpuscular HGB Conc 31.5 g/dl (32-36); Mean Corpuscular Hemoglobin 29.2 pg (26-34); Mean Corpuscular Volume 92.6 fl (80-100); Nucleated Red Blood Cells Absolute Auto 0.000 K/mm3 (0.0-0.012); Nucleated Red Blood Cells Perc 0.0 % (0.0-0.2); Platelet Count Result 300 k/mm3 (150-375); Red Blood Count 2.71 M/mm3 (4.6-6.20); White Blood Count 7.6 K/mm3 (4.5-10.0)
[2024-11-27 05:34] LABS: Estimated CRCL calculation 101 ml/min; Estimated Glomerular Filt Rate > 60
[2024-11-27 09:04] VITALS: BP 110/60; PULSE 72; O2SAT 100
[2024-11-27 09:05] VITALS: PULSE 72
[2024-11-27] MEDS: THIAMINE HCL 100 MG TABLET FEED TUBE (09:05)
[2024-11-27] MEDS: ASPIRIN 81 MG CHEWABLE TABLET FEED TUBE (09:05)
[2024-11-27] MEDS: ENOXAPARIN 40 MG/0.4 ML SYRINGE SUB-Q (09:05)
[2024-11-27] MEDS: FAMOTIDINE 20 MG TABLET FEED TUBE ×2 (09:05→21:49)
[2024-11-27] MEDS: ROSUVASTATIN 10 MG TABLET FEED TUBE (09:05)
[2024-11-27] MEDS: SACCHAROMYCES BOULARDII 250 MG CAPSULE FEED TUBE (09:05)
[2024-11-27] MEDS: FOLIC ACID 1 MG TABLET FEED TUBE (09:05)
[2024-11-27] MEDS: COLLAGENASE OINT 30 GM TUBE 1 APPLIC TOPICAL ×2 (09:06→21:50)
--- NOTE | 2024-11-27 10:28 | PM.PNGS ---
Progress Note: A&P Assessment and Plan (1) Unable to eat: Code(s): R63.8 - Other symptoms and signs concerning food and fluid intake Status: Chronic Assessment and Plan: Looks like taking some pills with small amounts of soft food. (2) History of jejunostomy tube placement: Status: Chronic Assessment and Plan: Working well and sutured securely to abdominal wall. Wound healed. We will sign off. Call if we can be of further assistance. (3) Cholelithiasis and cholecystitis with obstruction: Qualifiers: Cholelithiasis location: gallbladder Cholecystitis acuity: acute and chronic Qualified Code(s): K80.13 - Calculus of gallbladder with acute and chronic cholecystitis with obstruction Code(s): K80.19 - Calculus of gallbladder with other cholecystitis with obstruction Status: Acute Assessment and Plan: Patient's cholecystostomy tube is in place and working well. Cultures of bile from the gallbladder showed no growth. Cholecystogram CT scan showed that cystic duct is obstructed. Cholecystostomy tube will need to be irrigated as ordered and will remain in place on discharge. (4) Intra-abdominal hematoma: Status: Acute Assessment and Plan: Right upper quadrant collection noted 11/19/2024 and pigtail catheter placed under CT guidance on 11/20/2024. Fluid draining from this as appeared to be old blood at all times. Culture results are finalized and showed no growth. Pigtail catheter removed. (5) Intra-abdominal abscess: Code(s): K65.1 - Peritoneal abscess Status: Ruled-out Assessment and Plan: See 4. Above. There never was an intra-abdominal abscess but radiographically, 1 could not tell that until now. (6) Altered mental status: Qualifiers: Altered mental status type: disorientation Qualified Code(s): R41.0 - Disorientation, unspecified Code(s): R41.82 - Altered mental status, unspecified Status: Chronic Assessment and Plan: Described as encephalopathy but etiology not really clear to me. (7) Anemia: Qualifiers: Anemia type: unspecified type Qualified Code(s): D64.9 - Anemia, unspecified Code(s): D64.9 - Anemia, unspecified Status: Chronic Assessment and Plan: Stable Subjective Subjective Date/Time Seen: 11/27/24 10:28 Patient reports: no new complaints and afebrile Interval history: remains on tube feeds but I did see nurse getting him to take some meds p.o. He is awake and alert, can respond to some questions but speech garbled and hard to understand Review of Systems Review of Systems: ROS unobtainable: Yes unobtainable due to mental status Exam Const: General: comfortable, alert, awake and thin Limitations: other limitations (garbled speech) GI: Inspection: incision (J tube wound healing well, suture at site is fine) and other (cholecystostomy tube fine, pigtail catheter to hematoma removed) GI Palp: Yes Soft to palpation, Yes Tenderness to palpation present (GI), No Guarding due to palpation present (GI) and No Palpable mass present Objective Data Vital Signs Vital Signs: Vital Signs - 24 hr 11/26/24 14:25 11/26/24 15:39 11/26/24 16:02 Temperature 36.3 C L Pulse Rate 72 Respiratory Rate 18 Blood Pressure 96/62 L 104/60 Pulse Oximetry 99 Oxygen Delivery Room Air Fraction of Inspired Oxygen 11/26/24 19:51 11/26/24 20:40 11/26/24 20:43 Temperature 36.4 C L Pulse Rate 73 72 79 Respiratory Rate 12 12 Blood Pressure 107/58 L Pulse Oximetry 100 100 Oxygen Delivery Room Air Fraction of Inspired Oxygen 28 11/26/24 21:34 11/27/24 04:43 11/27/24 09:04 Temperature 36.3 C L 36.7 C Pulse Rate 72 72 72 Respiratory Rate 12 12 Blood Pressure 108/59 L 109/58 L 110/60 Pulse Oximetry 100 100 100 Oxygen Delivery Fraction of Inspired Oxygen 11/27/24 09:05 Temperature Pulse Rate 72 Respiratory Rate Blood Pressure Pulse Oximetry Oxygen Delivery Fraction of Inspired Oxygen Intake/Output Intake/Output: Intake & Output 11/24/24 11/25/24 11/26/24 11/27/24 23:59 23:59 23:59 23:59 Intake Total 300 4403 1207 Output Total 910 1020 1460 700 Balance -610 4450 -253 -700 Meds/Results Medications: Active Medications Generic Name Dose Route Start Last Admin Trade Name Freq PRN Reason Stop Dose Admin Acetaminophen 650 mg 11/13/24 21:07 11/19/24 03:09 Acetaminophen Elixir 325 Mg/10.15 Ml Udc FEED TUBE 650 mg Q6H PRN Administration Fever >101 Allopurinol 100 mg 11/15/24 09:00 11/27/24 09:05 Allopurinol 100 Mg Tablet FEED TUBE 100 mg DAILY JHONY Administration Alteplase, Recombinant 2 mg 11/20/24 13:51 11/25/24 22:36 Alteplase 2 Mg Vial (Cathflo) IV PUSH 2 mg ONCE PRN Administration Line Occlusion Amlodipine Besylate 5 mg 11/22/24 09:00 11/27/24 09:05 Amlodipine Besylate 5 Mg Tablet FEED TUBE 5 mg DAILY JHONY Administration Aspirin 81 mg 11/04/24 08:00 11/27/24 09:05 Aspirin 81 Mg Chewable Tablet FEED TUBE 81 mg DAILY@0800 JHONY Administration Carvedilol 6.25 mg 11/22/24 09:00 11/27/24 09:05 Carvedilol 6.25 Mg Tablet FEED TUBE 6.25 mg Q12HR JHONY Administration Collagenase 1 applic 11/13/24 09:00 11/27/24 09:06 Collagenase Oint 30 Gm Tube TOPICAL 1 applic Q12HR JHONY Administration Dextrose 12.5 gm 10/17/24 21:26 10/30/24 05:55 Dextrose 50% 25 Gm/50 Ml Syringe IV PUSH 12.5 gm PRN PRN Administration Hypoglycemia Protocol Enoxaparin Sodium 40 mg 11/02/24 09:00 11/27/24 09:05 Enoxaparin 40 Mg/0.4 Ml Syringe SUB-Q 40 mg DAILY JHONY Administration Famotidine 20 mg 11/24/24 09:00 11/27/24 09:05 Famotidine 20 Mg Tablet FEED TUBE 20 mg Q12HR JHONY Administration Folic Acid 1 mg 10/24/24 09:00 11/27/24 09:05 Folic Acid 1 Mg Tablet FEED TUBE 1 mg QAM JHONY Administration Glucagon 1 mg 10/17/24 21:26 Glucagon For Inj 1 Mg Vial IM PRN PRN Hypoglycemia Protocol Glucose 15 gm 11/13/24 21:07 Glucose Oral Gel 15 Gm Of Glucse In 37.5 Gm Tube FEED TUBE PRN PRN Hypoglycemia Protocol Dextrose 1,000 mls @ 100 mls/hr 10/17/24 21:26 Dextrose 5% 1,000 Ml IVPB PRN PRN Hypoglycemia Protocol Meropenem 1 gm in 100 mls @ 200 mls/hr 11/19/24 17:00 11/27/24 05:14 IVPB 200 mls/hr Q8HR JHONY Administration Insulin Aspart 3 - 6 units 11/08/24 12:00 11/27/24 05:30 Insulin Aspart (*Bkc) 100 Units/Ml SUB-Q Not Given Q6HR JHONY Protocol Rosuvastatin Calcium 10 mg 11/04/24 09:00 11/27/24 09:05 Rosuvastatin 10 Mg Tablet FEED TUBE 10 mg DAILY JHONY Administration Saccharomyces Boulardii 250 mg 11/14/24 09:00 11/27/24 09:05 Saccharomyces Boulardii 250 Mg Capsule FEED TUBE 250 mg DAILY JHONY Administration Sodium Chloride 10 ml 11/08/24 14:00 11/27/24 05:14 Central Line Flush IV PUSH 10 ml Q8HR JHONY Administration Sodium Chloride 10 ml 11/08/24 08:15 Central Line Flush IV PUSH PRN PRN with TPN bag changes Sodium Chloride 20 ml 11/08/24 08:15 11/25/24 06:08 Central Line Flush IV PUSH 20 ml PRN PRN Administration after blood draws Thiamine HCl 100 mg 10/24/24 09:00 11/27/24 09:05 Thiamine Hcl 100 Mg Tablet FEED TUBE 100 mg QAM JHONY Administration Radiology Results: ITS Impressions Face CT 10/19/24 09:39 IMPRESSION: 1. Extensive sinus disease with near complete opacification of the right maxillary sinus and dependently layering fluid in the bilateral sphenoid sinuses. Correlate clinically for acute sinusitis. 2. Dental and periodontal disease with periapical lucency surrounding the posterior most remaining right maxillary molar. Renal Ultrasound 10/19/24 09:48 IMPRESSION: No hydronephrosis or renal calculi. No parenchymal findings to suggest the presence of medical renal disease. Simple cysts within the right kidney, for which no further follow-up is needed. Brain MRI 10/24/24 14:22 IMPRESSION: 1. Age-related changes the brain. No acute intracranial process. 2. Prominent sinus disease with fluid nearly filling the right maxillary sinus and layering dependently in the bilateral sphenoid sinuses. Correlate clinically for acute sinusitis. Lumbar Puncture Fluoroscopy 10/31/24 17:34 IMPRESSION: 1. Successful fluoro-guided lumbar puncture with mildly elevated opening pressure of 23 cm water. Modified Barium Swallow 11/06/24 10:05 IMPRESSION: Nondiagnostic study as all contents either leaked or were actively expelled from the mouth. No swallows were able to be evaluated. Please correlate with speech pathologist findings and specific feeding recommendations. Abdomen X-Ray 11/08/24 07:55 Impression: NG tube in satisfactory position. Probable small bowel obstruction. Chest/Abdomen/Pelvis CT 11/08/24 09:59 IMPRESSION: CHEST: 1. Right basilar atelectasis versus pneumonia with pleural effusion. 2. No other acute cardiopulmonary pathology. ABDOMEN/PELVIS: 1. Free air is seen anteriorly around the liver with minimal fluid. 2. Significant ascites in the pelvis. Drainage tube is seen in the left side of the pelvis. 3. Cholelithiasis with thickened wall of the gallbladder. Evaluation for cholecystitis advised. 4. Slightly dilated small bowel loops in the left upper abdomen which may indicate ileus follow-up advised. 5. Right renal cysts. Upper GI Series 11/09/24 13:49 IMPRESSION: 1. Left lower quadrant jejunostomy tube in expected position with injected contrast opacifying the normal-appearing jejunum with no extraluminal leakage of contrast. Head CT 11/14/24 05:17 Impression: No intracranial hemorrhage, mass, or acute infarct. Atrophy and chronic white matter changes, as above. Abdomen Ultrasound 11/14/24 15:13 IMPRESSION: Highly suggestive cholecystitis with cholelithiasis and gallbladder sludge. Clinical correlation advised. Minimal ascites. Minimal right pleural effusion. Cholecystostomy 11/15/24 16:04 IMPRESSION: 1. Successful ultrasound-guided cholecystostomy tube placement. 2. 13 mL bile was sent for aerobic, anaerobic, and fungal cultures. 3. The catheter will be managed by Dr. Ortiz. A catheter cholangiogram may be performed not less than 48 hours after tube placement if clinically indicated to assess cystic duct patency. If cholecystectomy is not eventually performed and the infectious episode has resolved, the tube may be removed over a guidewire, preferably not less than 3 weeks after placement to allow time for a mature catheter tract to form to prevent bile leakage and peritonitis. Chest X-Ray 11/19/24 08:55 Impression: Clear lungs. Right-sided PICC line in place. Catheter Placement CT 11/20/24 17:00 IMPRESSION: Technically successful CT-guided 10 [place] drainage catheter placement within a (likely)perioperative infected hematoma, as detailed above. Specimen was sent for the culture evaluation. The catheter will need to be forwarded flushed (towards the patient and towards the drainage catheter) twice daily with 10 cc of normal saline. ADDENDUM: 11/22/24 1113 IMPRESSION: Technically successful CT-guided 10 [place] drainage catheter placement within a (likely)perioperative infected hematoma, as detailed above. Of note, perioperative includes periprocedural. In no way, is this a reference to any of the procedures/surgeries that this patient has undergone. Given his prolonged hospital course, this rim-enhancing fluid collection could be from any of a number of causes, and was not mentioned in any way to refer to the percutaneous jejunostomy, which (once again) is in excellent position. In addition, the percutaneous cholecystostomy tube is not transhepatic, but enters the gallbladder directly (on imaging). Abdomen/Pelvis CT 11/26/24 09:40 IMPRESSION: 1. Right abdominal percutaneous drainage catheter within a persistent 8.7 x 4.6 x 5.9 cm loculated fluid collection within the right abdomen which could represent hematoma or abscess. 2. Percutaneous cholecystostomy tube in expected position along with multiple gallstones within the gallbladder. 3. Small right pleural effusion with dependent atelectasis in the right lower lobe. 4. Diffuse body wall, mesenteric and retroperitoneal edema and small amount of ascites in the abdomen and pelvis. 5. Likely reactive abdominal lymphadenopathy. Labs Labs: Laboratory Results - last 24 hr 11/26/24 11/26/24 11/27/24 11:57 23:31 05:02 WBC 7.6 RBC 2.71 L Hgb 7.9 L Hct 25.1 L MCV 92.6 MCH 29.2 MCHC 31.5 L RDW 17.2 H Plt Count 300 MPV 10.8 H Immature Gran % (Auto) 0.4 Neut % (Auto) 52.8 Lymph % (Auto) 27.3 [place] % (Auto) 11.9 H Eos % (Auto) 7.3 H Baso % (Auto) 0.3 Lymph # (Auto) 2.08 [place] # (Auto) 0.9 H Eos # (Auto) 0.6 H Baso # (Auto) 0.0 Abs Immat Gran (auto) 0.03 Absolute Neuts (auto) 4.0 Absolute Nucleated RBC 0.000 Nucleated RBC % 0.0 Creatinine 0.54 L Estim Creat Clear Calc 101 Estimated GFR > 60 POC Capillary Glucose 118 H 113 H 11/27/24 05:29 WBC RBC Hgb Hct MCV MCH MCHC RDW Plt Count MPV Immature Gran % (Auto) Neut % (Auto) Lymph % (Auto) [place] % (Auto) Eos % (Auto) Baso % (Auto) Lymph # (Auto) [place] # (Auto) Eos # (Auto) Baso # (Auto) Abs Immat Gran (auto) Absolute Neuts (auto) Absolute Nucleated RBC Nucleated RBC % Creatinine Estim Creat Clear Calc Estimated GFR POC Capillary Glucose 104 Culture results: Hematoma drain--no growth All blood cultures no growth Gallbladder content culture--no growth CSF--pending, gram stain neg for bacteria or WBCs Sputum (11/09/24) normal oropharyngeal ama and scant growth of yeast isolated WBC normal last 2 days, still anemic but stable Imaging Attestation: I personally reviewed and interpreted this imaging study as follows: (repeat CT abd/pelvis and prior CT's abd/pelvis reviewed w/ Dr. Pate) My impression: right sided collection slightly smaller medially, pigtail in place. Cholecystostomy tube in good position, J tube in good position. No new abscess or collection Radiologist's impression: 1. Right abdominal percutaneous drainage catheter within a persistent 8.7 x 4.6 x 5.9 cm loculated fluid collection within the right abdomen which could represent hematoma or abscess. 2. Percutaneous cholecystostomy tube in expected position along with multiple gallstones within the gallbladder. 3. Small right pleural effusion with dependent atelectasis in the right lower lobe. 4. Diffuse body wall, mesenteric and retroperitoneal edema and small amount of ascites in the abdomen and pelvis. 5. Likely reactive abdominal lymphadenopathy.
--- NOTE | 2024-11-27 12:12 | PCNFU ---
Nutrition Follow-Up Complete: Inadequate Oral Intake as related to AMS as evidenced by NPO. goal: Meet estimated nutritional needs Patient will continue current goal. Pt current nutrition is Jevity 1.5 at 50 ml/hr. Nutrition recommendation: 55 ml/hr. Last recorded weight is 66.7 kg, up from 66 kg on admit. Bowel Motility: Last reported BM 11/27 Labs Reviewed: Cr 0.54, Glu 111, Alb 2.74, Hct 25.1, Hgb 7.9 Meds Noted: Folic Acid, Thiamine, Protonix, Lovenox, Pepcid, Coreg. Skin: WNL Additional Notes: Patient current with J tube feedings. Tube feedings are being tolerated of Jevity 1.5 at 50 ml/hr. Goal rate recommended at 55 ml/hr. Total Nutrition: 1815 kcal/84 gm protein/920 ml water. Flush 100 ml q 4 hours. Agree with diet orders. will monitor weight, labs, skin, diet orders, meds every Tuesday and Tuesday.
--- NOTE | 2024-11-27 13:23 | PM.IMPN ---
Progress Note: A&P Assessment and Plan (1) Shock: Code(s): R57.9 - Shock, unspecified Status: Acute Assessment and Plan: Patient initially presented with septic shock Patient has developed new hypotension 11/08/2024. Suspect aspiration pneumonia versus UTI as patient has had Michelle for more than 2 weeks., or persistent C diff infection CT chest abdomen pelvis ABDOMEN/PELVIS: 1. Free air is seen anteriorly around the liver with minimal fluid. 2. Significant ascites in the pelvis. Drainage tube is seen in the left side of the pelvis. 3. Cholelithiasis with thickened wall of the gallbladder. Evaluation for cholecystitis advised. 4. Slightly dilated small bowel loops in the left upper abdomen which may indicate ileus follow-up advised. 5. Right renal cysts Blood, sputum culture culture are negative till now Michelle changed and UA sent procalcitonin level 8.2 Continue Dificid and meropenem Patient was given IV fluid bolus and now off of IV fluids Off 25% albumin Off Levophed infusion Blood pressure fluctuating. But more stable now 11/14/2024 worsened leukocytosis with hypotension up to 28 K. Meropenem and vancomycin added. Ultrasound with cholecystitis now status post cholecystostomy tube placement 11/15/2024. Continue meropenem. Fluid culture with Gram-positive cocci in chains on anaerobic culture. Aerobic culture no growth to date. Will continue meropenem 11/19/2024: Intermittent fever starts. Chest x-ray with clear lungs right-sided PICC line in place. Urinalysis negative. Blood culture x2 obtained. Repeat CT 11/19 with rim enhancing fluid collection within the right mid to upper abdomen measuring 8.5 cm in greatest dimension likely intra-abdominal abscess. Persistent cystic duct obstruction. The small bowel of the right lower quadrant is also minimally distended and hyperemic. Free fluid within the pelvis, denser than one would expect for simple fluid with attenuation values of 20. IR for catheter placement 11/20. [place] to be an infected hematoma BCx 11/18 Negative BCx 11/19 NGTD Hematoma Cultures 11/20 Negative Vancomycin 11/14 to 11/19 Continue meropenem (11/08) Day 7 since possible source control but repeat CT showing persistent 8.7cm loculated fluid collection right abdomen. General surgery following and feels this is a hematoma and not infected. Discussed with surgery. Okay to stop antibiotics. Okay for discharge. Plan discharge with cholecystomy tube in place. (2) Intra-abdominal abscess: Code(s): K65.1 - Peritoneal abscess Status: Ruled-out Assessment and Plan: CT 11/19 showing a rim enhancing fluid collection within the right mid to upper abdomen measuring 8.5 cm IR placed a drain 11/20 and felt to be an infected hematoma Abd Abscess Cultures 11/20 Negative Vancomycin 11/14 to 11/19. Meropenem started 11/08 and Day [address] 11/26 showing persistent 8.7cm loculated fluid collection right abdomen. Gen Surgery following and feel this was not infected hematoma. Stop abx. (3) Cholelithiasis and cholecystitis with obstruction: Qualifiers: Cholelithiasis location: gallbladder Cholecystitis acuity: acute and chronic Qualified Code(s): K80.13 - Calculus of gallbladder with acute and chronic cholecystitis with obstruction Code(s): K80.19 - Calculus of gallbladder with other cholecystitis with obstruction Status: Acute Assessment and Plan: As above. Patient with worsening leukocytosis up to 28K with hypotension. Meropenem and vancomycin added. Ultrasound with cholecystitis now status post cholecystostomy tube placement 11/15/2024. Tube is draining normally. Bile Cx negative and final. Imaging showing persistent cystic duct obstruction. Cholecystostomy tube will need to be irrigated as ordered. Plan for tube to remain in place on discharge. (4) Metabolic encephalopathy: Code(s): G93.41 - Metabolic encephalopathy Status: Acute Assessment and Plan: Patient has had Altered mental status since admission which is multifactorial Patient was evaluated by Neurology and suspected to have metabolic encephalopathy. -CT brain on presented was negative for intracranial abnormalities. Repeat CT scan 11/08 also unremarkable -MRI cannot be performed as patient was in the [place] and may have sharpnel exposure according to his daughter -10/19: Repeat CT brain did not show any acute intracranial hemorrhage or suspicious mass effect, inflammatory sinus disease. -10/19: CT facial bones showed extensive sinus disease with near complete opacification of the right maxillary sinus and dependently layering fluid in the bilateral sphenoid sinuses. Dental and periodontal disease with periapical lucency surrounding the posterior most remaining right maxillary molar His ammonia level was normal Lumbar puncture 10/31/2024 with mildly elevated opening pressure of 23 cm water and high protein. 6 RBC/1 WBC with 100% lymphocytes. HSV II PCR negative. WNV negative. Mental status improving since drain placed. Continue to monitor. Increase activity as tolerated. (5) Anemia: Qualifiers: Anemia type: unspecified type Qualified Code(s): D64.9 - Anemia, unspecified Code(s): D64.9 - Anemia, unspecified Status: Chronic Assessment and Plan: in ICU: Patient was anemic on presentation and received 2 units of PRBC. He was evaluate by Hematology Stool culture was negative and vitamin B12 were normal Folic acid was low and was supplement -iron panel was unremarkable He had EGD on 11/01 which showed gastritis and previous gastric surgery Hemoglobin dropped to 5.2 which could be partially dilutional versus GI loss 11/09 Transfuse 2 units PRBC Was holding Lovenox and use SCDs but Lovenox now resumed Continue protonix Hgb low but stable in the 7-8 range. Monitor hemoglobin (6) C. difficile diarrhea: Code(s): A04.72 - Enterocolitis due to Clostridium difficile, not specified as recurrent Status: Acute Assessment and Plan: CT abdomen pelvis reviewed Diarrhea improved. IV Flagyl stopped 11/09 Dificid completed on 11/18. Fecal containment system stopped 11/23. Documented stool output noted Monitor stool output. Resume treatment if diarrhea recurs. (7) Acute kidney injury: Code(s): N17.9 - Acute kidney failure, unspecified Status: Acute Assessment and Plan: ICU: Patient presented with Acute kidney injury which improved with IV fluids Now the creatinine has again went up I suspect this is due to hypovolemia and sepsis Fully replaced CT scan reviewed Patient was given IV fluids and creatinine improving. Hold further IV fluid Although his intake and output show that he is significantly volume overloaded. He has had FMS with diarrhea which makes I&Os inaccurate. He does have minimal edema on exam Nephrology following Monitor urine output electrolytes and creatinine CK level is normal Earlier in the course CT scan of the abdomen and pelvis did not show any hydronephrosis or stones and renal ultrasound also showed No hydronephrosis or renal calculi, no apparent, findings to suggest the presence of medical renal disease. Simple cyst within the right kidney RESOLVED (8) Thrombocytopenia: Code(s): D69.6 - Thrombocytopenia, unspecified Status: Acute Assessment and Plan: Thrombocytopenia related to sepsis; this has improved High platelet count at this time suggest hemoconcentration RESOLVED (9) Hyperkalemia: Code(s): E87.5 - Hyperkalemia Status: Acute Assessment and Plan: Hyperkalemia with SATHISH Calcium gluconate, insulin and D50, bicarb received Lokelma in ICU IV fluid bolus RESOLVED (10) Acute respiratory failure: Code(s): J96.00 - Acute respiratory failure, unspecified whether with hypoxia or hypercapnia Status: Acute Assessment and Plan: RESOLVED Plan DVT Prophylaxis - SCDs;Lovenox Code status - Full Subjective Date/time seen: 11/27/24 13:23 Interval history: 69yo male with HTN, gout, cancer, and hyperlipidemia (obtained via medication history, patient unable to confirm) presented here with fall, altered mental status, and hypotension on 10/17/24. Found to have septic shock started on Levophed and admitted to ICU. CT chest abdomen pelvis with no acute findings. Face CT with extensive sinus disease with near complete opacification of the right maxillary sinus and dependently layering fluid in the bilateral sphenoid sinuses. Patent was getting better. off Levophed on 10/18. Initially was on Cefepime and vancomycin but it was discontinued as there was no source on infection and neg blood cultures. On 10/19 patient had fever started on Rocephin for possible UTI vs sinusitis. C diff was positive on 10/22/24 started on oral Vancomycin and concluded on 11/01/24. AMS evaluation with MRI/CT/EEG unremarkable except for sinusitis. Lumbar puncture 10/31/2024 with mildly elevated opening pressure of 23 cm water and high protein. 6 RBC/1 WBC with 100% lymphocytes. HSV II PCR negative. WNV negative. patient also had Sathish and rhabdomyolysis which received IVF. Patient also had pancytopenia. Hematology oncology on board. Platelet improved. patient failed barium swallow . surgery team was consulted underwent J-tube placement on 11/07 rapid response was called on 11/08/24 because of respiratory failure, hypotension, lactic acidosis. Patient was intubated and admitted to ICU.Ct concerning for cholecystitis and ileus. surgery team on board recommended to monitor patient has been on Dificid and meropenem Patient gradually improving was transferred out of ICU 11/13/24 but the next day, he developed hypotensive and tachycardic that improved with fluid bolus. Also with worsening leukocytosis and lactic acidosis so treatment started for severe sepsis. Meropenem continued and Vancomycin was added. US showed cholecystitis. Cholecystostomy tube placed on 11/15. On 11/19, he developed mild grade fever off and on. Blood cultures obtained. He is awake and alert but unable to provide hx. Tolerating TF. Review of Systems Review of Systems: ROS unobtainable: Yes unobtainable due to mental status Exam Narrative: AF 98.0 110/60 72 12 100% ra Gen - NARD HEENT - minimal dried blackish matl noted in oral cavity Chest - clear anteriorly and in flanks CV - RRR S1/S2 Abd - Soft, ND, JTube site is clean, dry and intact. Cholecystostomy tube with scant amount of bilious fluid in bag. Rt sided abd drain in place with scant amount of bloody drainage. Ext - No pedal edema. Heel protectors in place Neuro - awake and alert; remains confused. Speech clear at times Psych - in good spirits Skin - Warm and dry Objective Data Vital Signs Vital Signs: Vital Signs - 24 hr 11/26/24 14:25 11/26/24 15:39 11/26/24 16:02 Temperature 97.4 F L Pulse Rate 72 Respiratory Rate 18 Blood Pressure 96/62 L 104/60 Pulse Oximetry 99 Oxygen Delivery Room Air Fraction of Inspired Oxygen 11/26/24 19:51 11/26/24 20:40 11/26/24 20:43 Temperature 97.5 F L Pulse Rate 73 72 79 Respiratory Rate 12 12 Blood Pressure 107/58 L Pulse Oximetry 100 100 Oxygen Delivery Room Air Fraction of Inspired Oxygen 28 11/26/24 21:34 11/27/24 04:43 11/27/24 09:04 Temperature 97.4 F L 98.0 F Pulse Rate 72 72 72 Respiratory Rate 12 12 Blood Pressure 108/59 L 109/58 L 110/60 Pulse Oximetry 100 100 100 Oxygen Delivery Fraction of Inspired Oxygen 11/27/24 09:05 11/27/24 09:30 Temperature Pulse Rate 72 Respiratory Rate Blood Pressure Pulse Oximetry Oxygen Delivery Room Air Fraction of Inspired Oxygen Intake/Output Intake/Output: Intake & Output 11/24/24 11/25/24 11/26/24 11/27/24 23:59 23:59 23:59 23:59 Intake Total 300 4403 1207 Output Total 910 1020 1460 700 Balance -610 3383 -253 -700 Meds/Results Medications: Active Medications Generic Name Dose Route Start Last Admin Trade Name Freq PRN Reason Stop Dose Admin Acetaminophen 650 mg 11/13/24 21:07 11/19/24 03:09 Acetaminophen Elixir 325 Mg/10.15 Ml Udc FEED TUBE 650 mg Q6H PRN Administration Fever >101 Allopurinol 100 mg 11/15/24 09:00 11/27/24 09:05 Allopurinol 100 Mg Tablet FEED TUBE 100 mg DAILY JHONY Administration Alteplase, Recombinant 2 mg 11/20/24 13:51 11/25/24 22:36 Alteplase 2 Mg Vial (Cathflo) IV PUSH 2 mg ONCE PRN Administration Line Occlusion Amlodipine Besylate 5 mg 11/22/24 09:00 11/27/24 09:05 Amlodipine Besylate 5 Mg Tablet FEED TUBE 5 mg DAILY JHONY Administration Aspirin 81 mg 11/04/24 08:00 11/27/24 09:05 Aspirin 81 Mg Chewable Tablet FEED TUBE 81 mg DAILY@0800 JHONY Administration Carvedilol 6.25 mg 11/22/24 09:00 11/27/24 09:05 Carvedilol 6.25 Mg Tablet FEED TUBE 6.25 mg Q12HR JHONY Administration Collagenase 1 applic 11/13/24 09:00 11/27/24 09:06 Collagenase Oint 30 Gm Tube TOPICAL 1 applic Q12HR JHONY Administration Dextrose 12.5 gm 10/17/24 21:26 10/30/24 05:55 Dextrose 50% 25 Gm/50 Ml Syringe IV PUSH 12.5 gm PRN PRN Administration Hypoglycemia Protocol Enoxaparin Sodium 40 mg 11/02/24 09:00 11/27/24 09:05 Enoxaparin 40 Mg/0.4 Ml Syringe SUB-Q 40 mg DAILY JHONY Administration Famotidine 20 mg 11/24/24 09:00 11/27/24 09:05 Famotidine 20 Mg Tablet FEED TUBE 20 mg Q12HR JHONY Administration Folic Acid 1 mg 10/24/24 09:00 11/27/24 09:05 Folic Acid 1 Mg Tablet FEED TUBE 1 mg QAM JHONY Administration Glucagon 1 mg 10/17/24 21:26 Glucagon For Inj 1 Mg Vial IM PRN PRN Hypoglycemia Protocol Glucose 15 gm 11/13/24 21:07 Glucose Oral Gel 15 Gm Of Glucse In 37.5 Gm Tube FEED TUBE PRN PRN Hypoglycemia Protocol Dextrose 1,000 mls @ 100 mls/hr 10/17/24 21:26 Dextrose 5% 1,000 Ml IVPB PRN PRN Hypoglycemia Protocol Meropenem 1 gm/ Sodium 100 mls @ 200 mls/hr 11/27/24 14:00 Chloride IVPB Q8HR JHONY Insulin Aspart 3 - 6 units 11/08/24 12:00 11/27/24 12:05 Insulin Aspart (*Bkc) 100 Units/Ml SUB-Q Not Given Q6HR JHONY Protocol Rosuvastatin Calcium 10 mg 11/04/24 09:00 11/27/24 09:05 Rosuvastatin 10 Mg Tablet FEED TUBE 10 mg DAILY JHONY Administration Saccharomyces Boulardii 250 mg 11/14/24 09:00 11/27/24 09:05 Saccharomyces Boulardii 250 Mg Capsule FEED TUBE 250 mg DAILY JHONY Administration Sodium Chloride 10 ml 11/08/24 14:00 11/27/24 05:14 Central Line Flush IV PUSH 10 ml Q8HR JHONY Administration Sodium Chloride 10 ml 11/08/24 08:15 Central Line Flush IV PUSH PRN PRN with TPN bag changes Sodium Chloride 20 ml 11/08/24 08:15 11/25/24 06:08 Central Line Flush IV PUSH 20 ml PRN PRN Administration after blood draws Thiamine HCl 100 mg 10/24/24 09:00 11/27/24 09:05 Thiamine Hcl 100 Mg Tablet FEED TUBE 100 mg QAM JHONY Administration Radiology Results: ITS Impressions Face CT 10/19/24 09:39 IMPRESSION: 1. Extensive sinus disease with near complete opacification of the right maxillary sinus and dependently layering fluid in the bilateral sphenoid sinuses. Correlate clinically for acute sinusitis. 2. Dental and periodontal disease with periapical lucency surrounding the posterior most remaining right maxillary molar. Renal Ultrasound 10/19/24 09:48 IMPRESSION: No hydronephrosis or renal calculi. No parenchymal findings to suggest the presence of medical renal disease. Simple cysts within the right kidney, for which no further follow-up is needed. Brain MRI 10/24/24 14:22 IMPRESSION: 1. Age-related changes the brain. No acute intracranial process. 2. Prominent sinus disease with fluid nearly filling the right maxillary sinus and layering dependently in the bilateral sphenoid sinuses. Correlate clinically for acute sinusitis. Lumbar Puncture Fluoroscopy 10/31/24 17:34 IMPRESSION: 1. Successful fluoro-guided lumbar puncture with mildly elevated opening pressure of 23 cm water. Modified Barium Swallow 11/06/24 10:05 IMPRESSION: Nondiagnostic study as all contents either leaked or were actively expelled from the mouth. No swallows were able to be evaluated. Please correlate with speech pathologist findings and specific feeding recommendations. Abdomen X-Ray 11/08/24 07:55 Impression: NG tube in satisfactory position. Probable small bowel obstruction. Chest/Abdomen/Pelvis CT 11/08/24 09:59 IMPRESSION: CHEST: 1. Right basilar atelectasis versus pneumonia with pleural effusion. 2. No other acute cardiopulmonary pathology. ABDOMEN/PELVIS: 1. Free air is seen anteriorly around the liver with minimal fluid. 2. Significant ascites in the pelvis. Drainage tube is seen in the left side of the pelvis. 3. Cholelithiasis with thickened wall of the gallbladder. Evaluation for cholecystitis advised. 4. Slightly dilated small bowel loops in the left upper abdomen which may indicate ileus follow-up advised. 5. Right renal cysts. Upper GI Series 11/09/24 13:49 IMPRESSION: 1. Left lower quadrant jejunostomy tube in expected position with injected contrast opacifying the normal-appearing jejunum with no extraluminal leakage of contrast. Head CT 11/14/24 05:17 Impression: No intracranial hemorrhage, mass, or acute infarct. Atrophy and chronic white matter changes, as above. Abdomen Ultrasound 11/14/24 15:13 IMPRESSION: Highly suggestive cholecystitis with cholelithiasis and gallbladder sludge. Clinical correlation advised. Minimal ascites. Minimal right pleural effusion. Cholecystostomy 11/15/24 16:04 IMPRESSION: 1. Successful ultrasound-guided cholecystostomy tube placement. 2. 13 mL bile was sent for aerobic, anaerobic, and fungal cultures. 3. The catheter will be managed by Dr. Ortiz. A catheter cholangiogram may be performed not less than 48 hours after tube placement if clinically indicated to assess cystic duct patency. If cholecystectomy is not eventually performed and the infectious episode has resolved, the tube may be removed over a guidewire, preferably not less than 3 weeks after placement to allow time for a mature catheter tract to form to prevent bile leakage and peritonitis. Chest X-Ray 11/19/24 08:55 Impression: Clear lungs. Right-sided PICC line in place. Catheter Placement CT 11/20/24 17:00 IMPRESSION: Technically successful CT-guided 10 [place] drainage catheter placement within a (likely)perioperative infected hematoma, as detailed above. Specimen was sent for the culture evaluation. The catheter will need to be forwarded flushed (towards the patient and towards the drainage catheter) twice daily with 10 cc of normal saline. ADDENDUM: 11/22/24 1113 IMPRESSION: Technically successful CT-guided 10 [place] drainage catheter placement within a (likely)perioperative infected hematoma, as detailed above. Of note, perioperative includes periprocedural. In no way, is this a reference to any of the procedures/surgeries that this patient has undergone. Given his prolonged hospital course, this rim-enhancing fluid collection could be from any of a number of causes, and was not mentioned in any way to refer to the percutaneous jejunostomy, which (once again) is in excellent position. In addition, the percutaneous cholecystostomy tube is not transhepatic, but enters the gallbladder directly (on imaging). Abdomen/Pelvis CT 11/26/24 09:40 IMPRESSION: 1. Right abdominal percutaneous drainage catheter within a persistent 8.7 x 4.6 x 5.9 cm loculated fluid collection within the right abdomen which could represent hematoma or abscess. 2. Percutaneous cholecystostomy tube in expected position along with multiple gallstones within the gallbladder. 3. Small right pleural effusion with dependent atelectasis in the right lower lobe. 4. Diffuse body wall, mesenteric and retroperitoneal edema and small amount of ascites in the abdomen and pelvis. 5. Likely reactive abdominal lymphadenopathy. Labs Labs: Laboratory Results - last 24 hr 11/26/24 11/27/24 11/27/24 23:31 05:02 05:29 WBC 7.6 RBC 2.71 L Hgb 7.9 L Hct 25.1 L MCV 92.6 MCH 29.2 MCHC 31.5 L RDW 17.2 H Plt Count 300 MPV 10.8 H Immature Gran % (Auto) 0.4 Neut % (Auto) 52.8 Lymph % (Auto) 27.3 [place] % (Auto) 11.9 H Eos % (Auto) 7.3 H Baso % (Auto) 0.3 Lymph # (Auto) 2.08 [place] # (Auto) 0.9 H Eos # (Auto) 0.6 H Baso # (Auto) 0.0 Abs Immat Gran (auto) 0.03 Absolute Neuts (auto) 4.0 Absolute Nucleated RBC 0.000 Nucleated RBC % 0.0 Creatinine 0.54 L Estim Creat Clear Calc 101 Estimated GFR > 60 POC Capillary Glucose 113 H 104 11/27/24 12:02 WBC RBC Hgb Hct MCV MCH MCHC RDW Plt Count MPV Immature Gran % (Auto) Neut % (Auto) Lymph % (Auto) [place] % (Auto) Eos % (Auto) Baso % (Auto) Lymph # (Auto) [place] # (Auto) Eos # (Auto) Baso # (Auto) Abs Immat Gran (auto) Absolute Neuts (auto) Absolute Nucleated RBC Nucleated RBC % Creatinine Estim Creat Clear Calc Estimated GFR POC Capillary Glucose 113 H
[2024-11-27 14:00] VITALS: BP 108/62; PULSE 72; RESP 14; TEMP 36.4; O2SAT 100
[2024-11-27] MEDS: MEROPENEM 1 GM in SODIUM CHLORIDE 0.9% IV 100 ML 200 ML IVPB (14:10)
[2024-11-27 19:40] VITALS: BP 130/70; PULSE 102; RESP 16; TEMP 37.3; O2SAT 90
[2024-11-27 21:49] VITALS: PULSE 102
--- NOTE | 2024-11-28 01:07 | PC.NURSE ---
Tube feed and flush intake not documented since 11/26 0500. 11/28 0100 intake documentation reflects almost 48hrs of intake recorded on tube feed pump.
[2024-11-28 04:32] VITALS: BP 97/64; PULSE 70; RESP 16; TEMP 36.4; O2SAT 94
[2024-11-28] MEDS: CENTRAL LINE FLUSH 10 ML IV PUSH ×3 (06:41→21:59)
[2024-11-28] MEDS: SACCHAROMYCES BOULARDII 250 MG CAPSULE FEED TUBE (08:37)
[2024-11-28] MEDS: FAMOTIDINE 20 MG TABLET FEED TUBE ×2 (08:37→21:45)
[2024-11-28] MEDS: THIAMINE HCL 100 MG TABLET FEED TUBE (08:37)
[2024-11-28 08:41] VITALS: PULSE 73
[2024-11-28] MEDS: ROSUVASTATIN 10 MG TABLET FEED TUBE (08:41)
[2024-11-28] MEDS: FOLIC ACID 1 MG TABLET FEED TUBE (08:41)
[2024-11-28] MEDS: ASPIRIN 81 MG CHEWABLE TABLET FEED TUBE (08:41)
[2024-11-28] MEDS: ENOXAPARIN 40 MG/0.4 ML SYRINGE SUB-Q (08:42)
[2024-11-28] MEDS: COLLAGENASE OINT 30 GM TUBE 1 APPLIC TOPICAL ×2 (08:42→21:59)
[2024-11-28 08:44] VITALS: BP 105/53; PULSE 73; O2SAT 100
[2024-11-28 14:00] VITALS: BP 110/56; PULSE 72; RESP 16; TEMP 36.4; O2SAT 98
--- NOTE | 2024-11-28 14:44 | PM.IMPN ---
Progress Note: A&P Assessment and Plan (1) Shock: Code(s): R57.9 - Shock, unspecified Status: Acute Assessment and Plan: Patient initially presented with septic shock Patient has developed new hypotension 11/08/2024. Suspect aspiration pneumonia versus UTI as patient has had Michelle for more than 2 weeks., or persistent C diff infection CT chest abdomen pelvis ABDOMEN/PELVIS: 1. Free air is seen anteriorly around the liver with minimal fluid. 2. Significant ascites in the pelvis. Drainage tube is seen in the left side of the pelvis. 3. Cholelithiasis with thickened wall of the gallbladder. Evaluation for cholecystitis advised. 4. Slightly dilated small bowel loops in the left upper abdomen which may indicate ileus follow-up advised. 5. Right renal cysts Blood, sputum culture culture are negative till now Michelle changed and UA sent procalcitonin level 8.2 Continue Dificid and meropenem Patient was given IV fluid bolus and now off of IV fluids Off 25% albumin Off Levophed infusion Blood pressure fluctuating. But more stable now 11/14/2024 worsened leukocytosis with hypotension up to 28 K. Meropenem and vancomycin added. Ultrasound with cholecystitis now status post cholecystostomy tube placement 11/15/2024. Continue meropenem. Fluid culture with Gram-positive cocci in chains on anaerobic culture. Aerobic culture no growth to date. Will continue meropenem 11/19/2024: Intermittent fever starts. Chest x-ray with clear lungs right-sided PICC line in place. Urinalysis negative. Blood culture x2 obtained. Repeat CT 11/19 with rim enhancing fluid collection within the right mid to upper abdomen measuring 8.5 cm in greatest dimension likely intra-abdominal abscess. Persistent cystic duct obstruction. The small bowel of the right lower quadrant is also minimally distended and hyperemic. Free fluid within the pelvis, denser than one would expect for simple fluid with attenuation values of 20. IR for catheter placement 11/20. [place] to be an infected hematoma BCx 11/18 Negative BCx 11/19 NGTD Hematoma Cultures 11/20 Negative Vancomycin 11/14 to 11/19 Continue meropenem (11/08) Day 7 since possible source control but repeat CT showing persistent 8.7cm loculated fluid collection right abdomen. General surgery following and feels this is a hematoma and not infected. Discussed with surgery. Okay to stop antibiotics. Okay for discharge. Plan discharge with cholecystomy tube in place. 11/28/2024: No new issues (2) Intra-abdominal abscess: Code(s): K65.1 - Peritoneal abscess Status: Ruled-out Assessment and Plan: CT 11/19 showing a rim enhancing fluid collection within the right mid to upper abdomen measuring 8.5 cm IR placed a drain 11/20 and felt to be an infected hematoma Abd Abscess Cultures 11/20 Negative Vancomycin 11/14 to 11/19. Meropenem started 11/08 and Day [address] 11/26 showing persistent 8.7cm loculated fluid collection right abdomen. Gen Surgery following and feel this was not infected hematoma. Stop abx. (3) Cholelithiasis and cholecystitis with obstruction: Qualifiers: Cholelithiasis location: gallbladder Cholecystitis acuity: acute and chronic Qualified Code(s): K80.13 - Calculus of gallbladder with acute and chronic cholecystitis with obstruction Code(s): K80.19 - Calculus of gallbladder with other cholecystitis with obstruction Status: Acute Assessment and Plan: As above. Patient with worsening leukocytosis up to 28K with hypotension. Meropenem and vancomycin added. Ultrasound with cholecystitis now status post cholecystostomy tube placement 11/15/2024. Tube is draining normally. Bile Cx negative and final. Imaging showing persistent cystic duct obstruction. Cholecystostomy tube will need to be irrigated as ordered. Plan for tube to remain in place on discharge. (4) Metabolic encephalopathy: Code(s): G93.41 - Metabolic encephalopathy Status: Acute Assessment and Plan: Patient has had Altered mental status since admission which is multifactorial Patient was evaluated by Neurology and suspected to have metabolic encephalopathy. -CT brain on presented was negative for intracranial abnormalities. Repeat CT scan 11/08 also unremarkable -MRI cannot be performed as patient was in the [place] and may have sharpnel exposure according to his daughter -10/19: Repeat CT brain did not show any acute intracranial hemorrhage or suspicious mass effect, inflammatory sinus disease. -10/19: CT facial bones showed extensive sinus disease with near complete opacification of the right maxillary sinus and dependently layering fluid in the bilateral sphenoid sinuses. Dental and periodontal disease with periapical lucency surrounding the posterior most remaining right maxillary molar His ammonia level was normal Lumbar puncture 10/31/2024 with mildly elevated opening pressure of 23 cm water and high protein. 6 RBC/1 WBC with 100% lymphocytes. HSV II PCR negative. WNV negative. Mental status improving since drain placed. Continue to monitor. Increase activity as tolerated. (5) Anemia: Qualifiers: Anemia type: unspecified type Qualified Code(s): D64.9 - Anemia, unspecified Code(s): D64.9 - Anemia, unspecified Status: Chronic Assessment and Plan: in ICU: Patient was anemic on presentation and received 2 units of PRBC. He was evaluate by Hematology Stool culture was negative and vitamin B12 were normal Folic acid was low and was supplement -iron panel was unremarkable He had EGD on 11/01 which showed gastritis and previous gastric surgery Hemoglobin dropped to 5.2 which could be partially dilutional versus GI loss 11/09 Transfuse 2 units PRBC Was holding Lovenox and use SCDs but Lovenox now resumed Continue protonix Hgb low but stable in the 7-8 range. Monitor hemoglobin (6) C. difficile diarrhea: Code(s): A04.72 - Enterocolitis due to Clostridium difficile, not specified as recurrent Status: Acute Assessment and Plan: CT abdomen pelvis reviewed Diarrhea improved. IV Flagyl stopped 11/09 Dificid completed on 11/18. Fecal containment system stopped 11/23. Documented stool output noted Monitor stool output. Resume treatment if diarrhea recurs. (7) Acute kidney injury: Code(s): N17.9 - Acute kidney failure, unspecified Status: Acute Assessment and Plan: ICU: Patient presented with Acute kidney injury which improved with IV fluids Now the creatinine has again went up I suspect this is due to hypovolemia and sepsis Fully replaced CT scan reviewed Patient was given IV fluids and creatinine improving. Hold further IV fluid Although his intake and output show that he is significantly volume overloaded. He has had FMS with diarrhea which makes I&Os inaccurate. He does have minimal edema on exam Nephrology following Monitor urine output electrolytes and creatinine CK level is normal Earlier in the course CT scan of the abdomen and pelvis did not show any hydronephrosis or stones and renal ultrasound also showed No hydronephrosis or renal calculi, no apparent, findings to suggest the presence of medical renal disease. Simple cyst within the right kidney RESOLVED (8) Thrombocytopenia: Code(s): D69.6 - Thrombocytopenia, unspecified Status: Acute Assessment and Plan: Thrombocytopenia related to sepsis; this has improved High platelet count at this time suggest hemoconcentration RESOLVED (9) Hyperkalemia: Code(s): E87.5 - Hyperkalemia Status: Acute Assessment and Plan: Hyperkalemia with ALEJANDRO Calcium gluconate, insulin and D50, bicarb received [place] in ICU IV fluid bolus RESOLVED (10) Acute respiratory failure: Code(s): J96.00 - Acute respiratory failure, unspecified whether with hypoxia or hypercapnia Status: Acute Assessment and Plan: RESOLVED Plan DVT Prophylaxis - SCDs;Lovenox Code status - Full Care coordination currently arranging for discharge. Continue current management Subjective Date/time seen: 11/28/24 14:44 Interval history: No acute overnight events. Patient denies pain. Has no complaints. Review of Systems Review of Systems: All systems reviewed & are unremarkable except as noted in HPI and below (Subjective) Exam Const: General: comfortable and no acute distress HENMT: Mouth: Yes moist mucous membranes Eyes: Pupils: Equal, round and reactive pupils present Neck: Neck: supple Resp: Effort & Inspection: normal respiratory effort Auscultation: clear to auscultation bilaterally Cardio: Rate: regular rate Rhythm: regular rhythm GI: GI Palp: Yes Soft to palpation Extrem: General: no edema Objective Data Vital Signs Vital Signs: Vital Signs - 24 hr 11/27/24 19:40 11/27/24 20:00 11/27/24 21:49 Temperature 99.1 F Pulse Rate 102 H 102 H Respiratory Rate 16 Blood Pressure 130/70 Pulse Oximetry 90 Oxygen Delivery Room Air 11/28/24 04:32 11/28/24 07:35 11/28/24 08:41 Temperature 97.5 F L Pulse Rate 70 73 Respiratory Rate 16 Blood Pressure 97/64 L Pulse Oximetry 94 Oxygen Delivery Room Air 11/28/24 08:44 Temperature Pulse Rate 73 Respiratory Rate Blood Pressure 105/53 L Pulse Oximetry 100 Oxygen Delivery Intake/Output Intake/Output: Intake & Output 11/25/24 11/26/24 11/27/24 11/28/24 23:59 23:59 23:59 23:59 Intake Total 4403 1207 3343 Output Total 1020 1460 786 650 Balance 5954 -756 -366 1951 Meds/Results Medications: Active Medications Generic Name Dose Route Start Last Admin Trade Name Freq PRN Reason Stop Dose Admin Acetaminophen 650 mg 11/13/24 21:07 11/19/24 03:09 Acetaminophen Elixir 325 Mg/10.15 Ml Udc FEED TUBE 650 mg Q6H PRN Administration Fever >101 Allopurinol 100 mg 11/15/24 09:00 11/28/24 08:41 Allopurinol 100 Mg Tablet FEED TUBE 100 mg DAILY JHONY Administration Alteplase, Recombinant 2 mg 11/20/24 13:51 11/25/24 22:36 Alteplase 2 Mg Vial (Cathflo) IV PUSH 2 mg ONCE PRN Administration Line Occlusion Amlodipine Besylate 5 mg 11/22/24 09:00 11/28/24 08:42 Amlodipine Besylate 5 Mg Tablet FEED TUBE Not Given DAILY JHONY Aspirin 81 mg 11/04/24 08:00 11/28/24 08:41 Aspirin 81 Mg Chewable Tablet FEED TUBE 81 mg DAILY@0800 JHONY Administration Carvedilol 6.25 mg 11/22/24 09:00 11/28/24 08:41 Carvedilol 6.25 Mg Tablet FEED TUBE 6.25 mg Q12HR JHONY Administration Collagenase 1 applic 11/13/24 09:00 11/28/24 08:42 Collagenase Oint 30 Gm Tube TOPICAL 1 applic Q12HR JHONY Administration Dextrose 12.5 gm 10/17/24 21:26 10/30/24 05:55 Dextrose 50% 25 Gm/50 Ml Syringe IV PUSH 12.5 gm PRN PRN Administration Hypoglycemia Protocol Enoxaparin Sodium 40 mg 11/02/24 09:00 11/28/24 08:42 Enoxaparin 40 Mg/0.4 Ml Syringe SUB-Q 40 mg DAILY JHONY Administration Famotidine 20 mg 11/24/24 09:00 11/28/24 08:37 Famotidine 20 Mg Tablet FEED TUBE 20 mg Q12HR JHONY Administration Folic Acid 1 mg 10/24/24 09:00 11/28/24 08:41 Folic Acid 1 Mg Tablet FEED TUBE 1 mg QAM JHONY Administration Glucagon 1 mg 10/17/24 21:26 Glucagon For Inj 1 Mg Vial IM PRN PRN Hypoglycemia Protocol Glucose 15 gm 11/13/24 21:07 Glucose Oral Gel 15 Gm Of Glucse In 37.5 Gm Tube FEED TUBE PRN PRN Hypoglycemia Protocol Dextrose 1,000 mls @ 100 mls/hr 10/17/24 21:26 Dextrose 5% 1,000 Ml IVPB PRN PRN Hypoglycemia Protocol Insulin Aspart 3 - 6 units 11/08/24 12:00 11/28/24 12:31 Insulin Aspart (*Bkc) 100 Units/Ml SUB-Q Not Given Q6HR JHONY Protocol Rosuvastatin Calcium 10 mg 11/04/24 09:00 11/28/24 08:41 Rosuvastatin 10 Mg Tablet FEED TUBE 10 mg DAILY JHONY Administration Saccharomyces Boulardii 250 mg 11/14/24 09:00 11/28/24 08:37 Saccharomyces Boulardii 250 Mg Capsule FEED TUBE 250 mg DAILY JHONY Administration Sodium Chloride 10 ml 11/08/24 14:00 11/28/24 06:41 Central Line Flush IV PUSH 10 ml Q8HR JHONY Administration Sodium Chloride 10 ml 11/08/24 08:15 Central Line Flush IV PUSH PRN PRN with TPN bag changes Sodium Chloride 20 ml 11/08/24 08:15 11/25/24 06:08 Central Line Flush IV PUSH 20 ml PRN PRN Administration after blood draws Thiamine HCl 100 mg 10/24/24 09:00 11/28/24 08:37 Thiamine Hcl 100 Mg Tablet FEED TUBE 100 mg QAM JHONY Administration Radiology Results: ITS Impressions Face CT 10/19/24 09:39 IMPRESSION: 1. Extensive sinus disease with near complete opacification of the right maxillary sinus and dependently layering fluid in the bilateral sphenoid sinuses. Correlate clinically for acute sinusitis. 2. Dental and periodontal disease with periapical lucency surrounding the posterior most remaining right maxillary molar. Renal Ultrasound 10/19/24 09:48 IMPRESSION: No hydronephrosis or renal calculi. No parenchymal findings to suggest the presence of medical renal disease. Simple cysts within the right kidney, for which no further follow-up is needed. Brain MRI 10/24/24 14:22 IMPRESSION: 1. Age-related changes the brain. No acute intracranial process. 2. Prominent sinus disease with fluid nearly filling the right maxillary sinus and layering dependently in the bilateral sphenoid sinuses. Correlate clinically for acute sinusitis. Lumbar Puncture Fluoroscopy 10/31/24 17:34 IMPRESSION: 1. Successful fluoro-guided lumbar puncture with mildly elevated opening pressure of 23 cm water. Modified Barium Swallow 11/06/24 10:05 IMPRESSION: Nondiagnostic study as all contents either leaked or were actively expelled from the mouth. No swallows were able to be evaluated. Please correlate with speech pathologist findings and specific feeding recommendations. Abdomen X-Ray 11/08/24 07:55 Impression: NG tube in satisfactory position. Probable small bowel obstruction. Chest/Abdomen/Pelvis CT 11/08/24 09:59 IMPRESSION: CHEST: 1. Right basilar atelectasis versus pneumonia with pleural effusion. 2. No other acute cardiopulmonary pathology. ABDOMEN/PELVIS: 1. Free air is seen anteriorly around the liver with minimal fluid. 2. Significant ascites in the pelvis. Drainage tube is seen in the left side of the pelvis. 3. Cholelithiasis with thickened wall of the gallbladder. Evaluation for cholecystitis advised. 4. Slightly dilated small bowel loops in the left upper abdomen which may indicate ileus follow-up advised. 5. Right renal cysts. Upper GI Series 11/09/24 13:49 IMPRESSION: 1. Left lower quadrant jejunostomy tube in expected position with injected contrast opacifying the normal-appearing jejunum with no extraluminal leakage of contrast. Head CT 11/14/24 05:17 Impression: No intracranial hemorrhage, mass, or acute infarct. Atrophy and chronic white matter changes, as above. Abdomen Ultrasound 11/14/24 15:13 IMPRESSION: Highly suggestive cholecystitis with cholelithiasis and gallbladder sludge. Clinical correlation advised. Minimal ascites. Minimal right pleural effusion. Cholecystostomy 11/15/24 16:04 IMPRESSION: 1. Successful ultrasound-guided cholecystostomy tube placement. 2. 13 mL bile was sent for aerobic, anaerobic, and fungal cultures. 3. The catheter will be managed by Dr. Ortiz. A catheter cholangiogram may be performed not less than 48 hours after tube placement if clinically indicated to assess cystic duct patency. If cholecystectomy is not eventually performed and the infectious episode has resolved, the tube may be removed over a guidewire, preferably not less than 3 weeks after placement to allow time for a mature catheter tract to form to prevent bile leakage and peritonitis. Chest X-Ray 11/19/24 08:55 Impression: Clear lungs. Right-sided PICC line in place. Catheter Placement CT 11/20/24 17:00 IMPRESSION: Technically successful CT-guided 10 [place] drainage catheter placement within a (likely)perioperative infected hematoma, as detailed above. Specimen was sent for the culture evaluation. The catheter will need to be forwarded flushed (towards the patient and towards the drainage catheter) twice daily with 10 cc of normal saline. ADDENDUM: 11/22/24 1113 IMPRESSION: Technically successful CT-guided 10 [place] drainage catheter placement within a (likely)perioperative infected hematoma, as detailed above. Of note, perioperative includes periprocedural. In no way, is this a reference to any of the procedures/surgeries that this patient has undergone. Given his prolonged hospital course, this rim-enhancing fluid collection could be from any of a number of causes, and was not mentioned in any way to refer to the percutaneous jejunostomy, which (once again) is in excellent position. In addition, the percutaneous cholecystostomy tube is not transhepatic, but enters the gallbladder directly (on imaging). Abdomen/Pelvis CT 11/26/24 09:40 IMPRESSION: 1. Right abdominal percutaneous drainage catheter within a persistent 8.7 x 4.6 x 5.9 cm loculated fluid collection within the right abdomen which could represent hematoma or abscess. 2. Percutaneous cholecystostomy tube in expected position along with multiple gallstones within the gallbladder. 3. Small right pleural effusion with dependent atelectasis in the right lower lobe. 4. Diffuse body wall, mesenteric and retroperitoneal edema and small amount of ascites in the abdomen and pelvis. 5. Likely reactive abdominal lymphadenopathy. Labs Labs: Laboratory Results - last 24 hr 11/27/24 11/27/24 11/28/24 17:25 23:42 06:01 POC Capillary Glucose 110 H 112 H 104 11/28/24 12:05 POC Capillary Glucose 106 H
[2024-11-28 21:45] VITALS: PULSE 72
[2024-11-28 22:00] VITALS: BP 113/62; PULSE 71; RESP 18; TEMP 36.7; O2SAT 100
[2024-11-29 06:00] VITALS: BP 111/61; PULSE 67; RESP 18; TEMP 36.4; O2SAT 100
[2024-11-29 06:24] LABS: Hematocrit 25.0 % (42.0-52.0); Hemoglobin 7.8 g/dL (14.0-18.0); Immature Granulocyte Percent A 0.3 % (0-0.5); Lymphocytes Absolute Auto 2.21 K/mm3 (0.9-3.2); Mean Corpuscular HGB Conc 31.2 g/dl (32-36); Mean Corpuscular Hemoglobin 28.8 pg (26-34); Mean Corpuscular Volume 92.3 fl (80-100); Nucleated Red Blood Cells Absolute Auto 0.000 K/mm3 (0.0-0.012); Nucleated Red Blood Cells Perc 0.0 % (0.0-0.2); Platelet Count Result 319 k/mm3 (150-375); Red Blood Count 2.71 M/mm3 (4.6-6.20); White Blood Count 7.5 K/mm3 (4.5-10.0)
[2024-11-29 06:38] LABS: Anion Gap 6 mmol/L (4-12); Blood Urea Nitrogen 16 mg/dL (9-20); Calcium 9.0 mg/dL (8.4-10.2); Carbon Dioxide 25 mmol/L (22-30); Chloride 104 mmol/L (98-107); Estimated CRCL calculation 96 ml/min; Estimated Glomerular Filt Rate > 60; Glucose 108 mg/dL (65-110); Magnesium 1.6 mg/dL (1.6-2.3); Potassium 4.2 mmol/L (3.4-5.0); Sodium 135 mmol/L (137-145)
[2024-11-29] MEDS: CENTRAL LINE FLUSH 10 ML IV PUSH ×2 (06:55→22:43)
[2024-11-29 09:35] VITALS: BP 105/63; PULSE 67; RESP 16; TEMP 36.4; O2SAT 95
[2024-11-29 09:39] VITALS: PULSE 67; RESP 16; O2SAT 95
[2024-11-29] MEDS: SACCHAROMYCES BOULARDII 250 MG CAPSULE FEED TUBE (09:39)
[2024-11-29] MEDS: ENOXAPARIN 40 MG/0.4 ML SYRINGE SUB-Q (09:39)
[2024-11-29] MEDS: ROSUVASTATIN 10 MG TABLET FEED TUBE (09:39)
[2024-11-29] MEDS: FOLIC ACID 1 MG TABLET FEED TUBE (09:39)
[2024-11-29] MEDS: FAMOTIDINE 20 MG TABLET FEED TUBE ×2 (09:40→22:43)
[2024-11-29] MEDS: ASPIRIN 81 MG CHEWABLE TABLET FEED TUBE (09:40)
[2024-11-29] MEDS: THIAMINE HCL 100 MG TABLET FEED TUBE (09:40)
[2024-11-29 14:00] VITALS: BP 111/60; PULSE 79; RESP 20; O2SAT 98
--- NOTE | 2024-11-29 17:30 | PM.IMPN ---
Progress Note: A&P Assessment and Plan (1) Metabolic encephalopathy: Code(s): G93.41 - Metabolic encephalopathy Status: Acute (2) Hypotension: Qualifiers: Hypotension type: unspecified hypotension type Qualified Code(s): I95.9 - Hypotension, unspecified Code(s): I95.9 - Hypotension, unspecified Status: Acute Plan Anemia stable. Continue to monitor Q 24-48 hours unless has any overt bleeding. Blood pressure a bit soft so will hold off on Coreg and amlodipine for now. Care coordination currently arranging for discharge to SNF. Stable off of antibiotics. Flush colostomy tube with 10 cc b.i.d.. Lovenox. Full code. Subjective Date/time seen: 11/29/24 17:30 Interval history: No major acute overnight events. Review of Systems Review of Systems: All systems reviewed & are unremarkable except as noted in HPI and below (Subjective) Exam Const: General: comfortable and no acute distress HENMT: Mouth: Yes moist mucous membranes Eyes: Pupils: Equal, round and reactive pupils present Neck: Neck: supple Resp: Effort & Inspection: normal respiratory effort Auscultation: clear to auscultation bilaterally Cardio: Rate: regular rate Rhythm: regular rhythm GI: GI Palp: Yes Soft to palpation Extrem: General: no edema Objective Data Vital Signs Vital Signs: Vital Signs - 24 hr 11/28/24 20:00 11/28/24 21:45 11/28/24 22:00 Temperature 98.0 F Pulse Rate 72 71 Respiratory Rate 18 Blood Pressure 113/62 Pulse Oximetry 100 Oxygen Delivery Room Air Fraction of Inspired Oxygen 11/29/24 06:00 11/29/24 09:35 11/29/24 09:39 Temperature 97.6 F 97.5 F L Pulse Rate 67 67 67 Respiratory Rate 18 16 16 Blood Pressure 111/61 105/63 Pulse Oximetry 100 95 95 Oxygen Delivery Room Air Fraction of Inspired Oxygen 28 11/29/24 14:00 Temperature Pulse Rate 79 Respiratory Rate 20 Blood Pressure 111/60 Pulse Oximetry 98 Oxygen Delivery Fraction of Inspired Oxygen Intake/Output Intake/Output: Intake & Output 11/26/24 11/27/24 11/28/24 11/29/24 23:59 23:59 23:59 23:59 Intake Total 1207 4042 1748 Output Total 2888 737 3424 1105 Balance -253 -750 2482 643 Meds/Results Medications: Active Medications Generic Name Dose Route Start Last Admin Trade Name Freq PRN Reason Stop Dose Admin Acetaminophen 650 mg 11/13/24 21:07 11/19/24 03:09 Acetaminophen Elixir 325 Mg/10.15 Ml Udc FEED TUBE 650 mg Q6H PRN Administration Fever >101 Allopurinol 100 mg 11/15/24 09:00 11/29/24 09:40 Allopurinol 100 Mg Tablet FEED TUBE 100 mg DAILY JHONY Administration Alteplase, Recombinant 2 mg 11/20/24 13:51 11/25/24 22:36 Alteplase 2 Mg Vial (Cathflo) IV PUSH 2 mg ONCE PRN Administration Line Occlusion Amlodipine Besylate 5 mg 11/22/24 09:00 11/29/24 10:35 Amlodipine Besylate 5 Mg Tablet FEED TUBE Not Given DAILY JHONY Aspirin 81 mg 11/04/24 08:00 11/29/24 09:40 Aspirin 81 Mg Chewable Tablet FEED TUBE 81 mg DAILY@0800 JHONY Administration Carvedilol 6.25 mg 11/22/24 09:00 11/29/24 10:35 Carvedilol 6.25 Mg Tablet FEED TUBE Not Given Q12HR JHONY Collagenase 1 applic 11/13/24 09:00 11/28/24 21:59 Collagenase Oint 30 Gm Tube TOPICAL 1 applic Q12HR JHOYN Administration Dextrose 12.5 gm 10/17/24 21:26 10/30/24 05:55 Dextrose 50% 25 Gm/50 Ml Syringe IV PUSH 12.5 gm PRN PRN Administration Hypoglycemia Protocol Enoxaparin Sodium 40 mg 11/02/24 09:00 11/29/24 09:39 Enoxaparin 40 Mg/0.4 Ml Syringe SUB-Q 40 mg DAILY JHONY Administration Famotidine 20 mg 11/24/24 09:00 11/29/24 09:40 Famotidine 20 Mg Tablet FEED TUBE 20 mg Q12HR JHONY Administration Folic Acid 1 mg 10/24/24 09:00 11/29/24 09:39 Folic Acid 1 Mg Tablet FEED TUBE 1 mg QAM JHONY Administration Glucagon 1 mg 10/17/24 21:26 Glucagon For Inj 1 Mg Vial IM PRN PRN Hypoglycemia Protocol Glucose 15 gm 11/13/24 21:07 Glucose Oral Gel 15 Gm Of Glucse In 37.5 Gm Tube FEED TUBE PRN PRN Hypoglycemia Protocol Dextrose 1,000 mls @ 100 mls/hr 10/17/24 21:26 Dextrose 5% 1,000 Ml IVPB PRN PRN Hypoglycemia Protocol Insulin Aspart 3 - 6 units 11/08/24 12:00 11/29/24 06:54 Insulin Aspart (*Bkc) 100 Units/Ml SUB-Q Not Given Q6HR JHONY Protocol Rosuvastatin Calcium 10 mg 11/04/24 09:00 11/29/24 09:39 Rosuvastatin 10 Mg Tablet FEED TUBE 10 mg DAILY JHONY Administration Saccharomyces Boulardii 250 mg 11/14/24 09:00 11/29/24 09:39 Saccharomyces Boulardii 250 Mg Capsule FEED TUBE 250 mg DAILY JHONY Administration Sodium Chloride 10 ml 11/08/24 14:00 11/29/24 06:55 Central Line Flush IV PUSH 10 ml Q8HR JHONY Administration Sodium Chloride 10 ml 11/08/24 08:15 Central Line Flush IV PUSH PRN PRN with TPN bag changes Sodium Chloride 20 ml 11/08/24 08:15 11/25/24 06:08 Central Line Flush IV PUSH 20 ml PRN PRN Administration after blood draws Thiamine HCl 100 mg 10/24/24 09:00 11/29/24 09:40 Thiamine Hcl 100 Mg Tablet FEED TUBE 100 mg QAM JHONY Administration Radiology Results: ITS Impressions Face CT 10/19/24 09:39 IMPRESSION: 1. Extensive sinus disease with near complete opacification of the right maxillary sinus and dependently layering fluid in the bilateral sphenoid sinuses. Correlate clinically for acute sinusitis. 2. Dental and periodontal disease with periapical lucency surrounding the posterior most remaining right maxillary molar. Renal Ultrasound 10/19/24 09:48 IMPRESSION: No hydronephrosis or renal calculi. No parenchymal findings to suggest the presence of medical renal disease. Simple cysts within the right kidney, for which no further follow-up is needed. Brain MRI 10/24/24 14:22 IMPRESSION: 1. Age-related changes the brain. No acute intracranial process. 2. Prominent sinus disease with fluid nearly filling the right maxillary sinus and layering dependently in the bilateral sphenoid sinuses. Correlate clinically for acute sinusitis. Lumbar Puncture Fluoroscopy 10/31/24 17:34 IMPRESSION: 1. Successful fluoro-guided lumbar puncture with mildly elevated opening pressure of 23 cm water. Modified Barium Swallow 11/06/24 10:05 IMPRESSION: Nondiagnostic study as all contents either leaked or were actively expelled from the mouth. No swallows were able to be evaluated. Please correlate with speech pathologist findings and specific feeding recommendations. Abdomen X-Ray 11/08/24 07:55 Impression: NG tube in satisfactory position. Probable small bowel obstruction. Chest/Abdomen/Pelvis CT 11/08/24 09:59 IMPRESSION: CHEST: 1. Right basilar atelectasis versus pneumonia with pleural effusion. 2. No other acute cardiopulmonary pathology. ABDOMEN/PELVIS: 1. Free air is seen anteriorly around the liver with minimal fluid. 2. Significant ascites in the pelvis. Drainage tube is seen in the left side of the pelvis. 3. Cholelithiasis with thickened wall of the gallbladder. Evaluation for cholecystitis advised. 4. Slightly dilated small bowel loops in the left upper abdomen which may indicate ileus follow-up advised. 5. Right renal cysts. Upper GI Series 11/09/24 13:49 IMPRESSION: 1. Left lower quadrant jejunostomy tube in expected position with injected contrast opacifying the normal-appearing jejunum with no extraluminal leakage of contrast. Head CT 11/14/24 05:17 Impression: No intracranial hemorrhage, mass, or acute infarct. Atrophy and chronic white matter changes, as above. Abdomen Ultrasound 11/14/24 15:13 IMPRESSION: Highly suggestive cholecystitis with cholelithiasis and gallbladder sludge. Clinical correlation advised. Minimal ascites. Minimal right pleural effusion. Cholecystostomy 11/15/24 16:04 IMPRESSION: 1. Successful ultrasound-guided cholecystostomy tube placement. 2. 13 mL bile was sent for aerobic, anaerobic, and fungal cultures. 3. The catheter will be managed by Dr. Ortiz. A catheter cholangiogram may be performed not less than 48 hours after tube placement if clinically indicated to assess cystic duct patency. If cholecystectomy is not eventually performed and the infectious episode has resolved, the tube may be removed over a guidewire, preferably not less than 3 weeks after placement to allow time for a mature catheter tract to form to prevent bile leakage and peritonitis. Chest X-Ray 11/19/24 08:55 Impression: Clear lungs. Right-sided PICC line in place. Catheter Placement CT 11/20/24 17:00 IMPRESSION: Technically successful CT-guided 10 [place] drainage catheter placement within a (likely)perioperative infected hematoma, as detailed above. Specimen was sent for the culture evaluation. The catheter will need to be forwarded flushed (towards the patient and towards the drainage catheter) twice daily with 10 cc of normal saline. ADDENDUM: 11/22/24 1113 IMPRESSION: Technically successful CT-guided 10 [place] drainage catheter placement within a (likely)perioperative infected hematoma, as detailed above. Of note, perioperative includes periprocedural. In no way, is this a reference to any of the procedures/surgeries that this patient has undergone. Given his prolonged hospital course, this rim-enhancing fluid collection could be from any of a number of causes, and was not mentioned in any way to refer to the percutaneous jejunostomy, which (once again) is in excellent position. In addition, the percutaneous cholecystostomy tube is not transhepatic, but enters the gallbladder directly (on imaging). Abdomen/Pelvis CT 11/26/24 09:40 IMPRESSION: 1. Right abdominal percutaneous drainage catheter within a persistent 8.7 x 4.6 x 5.9 cm loculated fluid collection within the right abdomen which could represent hematoma or abscess. 2. Percutaneous cholecystostomy tube in expected position along with multiple gallstones within the gallbladder. 3. Small right pleural effusion with dependent atelectasis in the right lower lobe. 4. Diffuse body wall, mesenteric and retroperitoneal edema and small amount of ascites in the abdomen and pelvis. 5. Likely reactive abdominal lymphadenopathy. Labs Labs: Laboratory Results - last 24 hr 11/28/24 11/28/24 11/29/24 17:55 23:21 06:09 WBC 7.5 RBC 2.71 L Hgb 7.8 L Hct 25.0 L MCV 92.3 MCH 28.8 MCHC 31.2 L RDW 17.2 H Plt Count 319 MPV 10.8 H Immature Gran % (Auto) 0.3 Neut % (Auto) 46.5 Lymph % (Auto) 29.5 [place] % (Auto) 14.8 H Eos % (Auto) 8.5 H Baso % (Auto) 0.4 Lymph # (Auto) 2.21 [place] # (Auto) 1.1 H Eos # (Auto) 0.6 H Baso # (Auto) 0.0 Abs Immat Gran (auto) 0.02 Absolute Neuts (auto) 3.5 Absolute Nucleated RBC 0.000 Nucleated RBC % 0.0 Sodium Potassium Chloride Carbon Dioxide Anion Gap BUN Creatinine Estim Creat Clear Calc Estimated GFR Glucose POC Capillary Glucose 88 106 H Calcium Phosphorus Magnesium 11/29/24 11/29/24 11/29/24 06:10 06:16 11:58 WBC RBC Hgb Hct MCV MCH MCHC RDW Plt Count MPV Immature Gran % (Auto) Neut % (Auto) Lymph % (Auto) [place] % (Auto) Eos % (Auto) Baso % (Auto) Lymph # (Auto) [place] # (Auto) Eos # (Auto) Baso # (Auto) Abs Immat Gran (auto) Absolute Neuts (auto) Absolute Nucleated RBC Nucleated RBC % Sodium 135 L Potassium 4.2 Chloride 104 Carbon Dioxide 25 Anion Gap 6 BUN 16 Creatinine 0.55 L Estim Creat Clear Calc 96 Estimated GFR > 60 Glucose 108 POC Capillary Glucose 109 H 100 Calcium 9.0 Phosphorus 5.3 H Magnesium 1.6
[2024-11-29 22:00] VITALS: BP 118/60; PULSE 81; RESP 18; TEMP 36.2; O2SAT 100
[2024-11-29] MEDS: COLLAGENASE OINT 30 GM TUBE 1 APPLIC TOPICAL (22:43)
[2024-11-30 06:00] VITALS: BP 117/64; PULSE 76; RESP 18; TEMP 36.3; O2SAT 99
[2024-11-30] MEDS: CENTRAL LINE FLUSH 10 ML IV PUSH ×3 (08:49→20:13)
[2024-11-30] MEDS: THIAMINE HCL 100 MG TABLET FEED TUBE (08:51)
[2024-11-30] MEDS: ASPIRIN 81 MG CHEWABLE TABLET FEED TUBE (08:51)
[2024-11-30] MEDS: ROSUVASTATIN 10 MG TABLET FEED TUBE (08:51)
[2024-11-30] MEDS: COLLAGENASE OINT 30 GM TUBE 1 APPLIC TOPICAL ×2 (08:51→20:14)
[2024-11-30] MEDS: ENOXAPARIN 40 MG/0.4 ML SYRINGE SUB-Q (08:51)
[2024-11-30] MEDS: FOLIC ACID 1 MG TABLET FEED TUBE (08:51)
[2024-11-30] MEDS: FAMOTIDINE 20 MG TABLET FEED TUBE ×2 (08:51→20:13)
[2024-11-30] MEDS: SACCHAROMYCES BOULARDII 250 MG CAPSULE FEED TUBE (08:51)
--- NOTE | 2024-11-30 10:52 | PCNFU ---
Nutrition Follow-Up Complete: Inadequate Oral Intake as related to AMS as evidenced by NPO. Goal: Meet estimated nutritional needs Patient is meeting goal. Pt current nutrition is Jevity 1.5 at 55 ml/hr. Last recorded weight is 64 kg, down from 66 kg on admit. Bowel Motility: +BM reported 11/29 Labs Reviewed: Cr 0.55, Alb 2.7, Na 135 Meds Noted: Thiamine, Protonix, Folic Acid. Skin: WNL Additional Notes: Patient remains on J tube feedings of Jevity 1.5 at 55 ml/hr and tolerating. Flush 100 ml q 4 hours. Total Nutrition: 1815 kcal/84 gm protein/920 ml water. Agree with diet orders. will monitor weight, labs, skin, diet orders, meds every Tuesday and Tuesday.
[2024-11-30 13:22] VITALS: BP 130/69; PULSE 81; RESP 16; TEMP 36.3; O2SAT 99
--- NOTE | 2024-11-30 13:42 | P.PNIM_ITS ---
Progress Note: A&P Assessment and Plan (1) Metabolic encephalopathy: Code(s): G93.41 - Metabolic encephalopathy Status: Acute (2) Hypotension: Qualifiers: Hypotension type: unspecified hypotension type Qualified Code(s): I95.9 - Hypotension, unspecified Code(s): I95.9 - Hypotension, unspecified Status: Acute (3) History of jejunostomy tube placement: Status: Chronic (4) Cholelithiasis and cholecystitis with obstruction: Qualifiers: Cholelithiasis location: gallbladder Cholecystitis acuity: acute and chronic Qualified Code(s): K80.13 - Calculus of gallbladder with acute and chronic cholecystitis with obstruction Code(s): K80.19 - Calculus of gallbladder with other cholecystitis with obstruction Status: Acute (5) Intra-abdominal hematoma: Status: Acute (6) Intra-abdominal abscess: Code(s): K65.1 - Peritoneal abscess Status: Ruled-out (7) Anemia: Qualifiers: Anemia type: unspecified type Qualified Code(s): D64.9 - Anemia, unspecified Code(s): D64.9 - Anemia, unspecified Status: Chronic Plan Mental status improved. Anemia stable. Continue to monitor Q 24-48 hours unless has any overt bleeding. Continue to hold off on Coreg amlodipine and restart when appropriate. Care coordination currently arranging for discharge to SNF. Stable off of antibiotics. Flush colostomy tube with 10 cc b.i.d.. Lovenox. Full code. Subjective Date/time seen: 11/30/24 13:42 Interval history: No major acute overnight events. Patient appears much more alert today. He is A&O times 2-3 and very talkative. Denies pain, shortness of breath, nausea vomiting or any other complaints. Review of Systems Review of Systems: All systems reviewed & are unremarkable except as noted in HPI and below (Subjective) Exam Const: General: comfortable and no acute distress Eyes: Pupils: Equal, round and reactive pupils present Neck: Neck: supple Resp: Effort & Inspection: normal respiratory effort Auscultation: clear to auscultation bilaterally Cardio: Rate: regular rate Rhythm: regular rhythm GI: Inspection: non-distended GI Palp: Yes Soft to palpation Extrem: General: no edema Objective Data Vital Signs Vital Signs: Vital Signs - 24 hr 11/29/24 14:00 11/29/24 20:00 11/29/24 22:00 Temperature 97.1 F L Pulse Rate 79 81 Respiratory Rate 20 18 Blood Pressure 111/60 118/60 Pulse Oximetry 98 100 Oxygen Delivery Room Air 11/30/24 06:00 11/30/24 09:08 11/30/24 13:22 Temperature 97.3 F L 97.4 F L Pulse Rate 76 81 Respiratory Rate 18 16 Blood Pressure 117/64 130/69 Pulse Oximetry 99 99 Oxygen Delivery Room Air Intake/Output Intake/Output: Intake & Output 11/27/24 11/28/24 11/29/24 11/30/24 23:59 23:59 23:59 23:59 Intake Total 4042 4428 4152 Output Total 750 1560 1105 1050 Balance -750 2482 643 902 Meds/Results Medications: Active Medications Generic Name Dose Route Start Last Admin Trade Name Freq PRN Reason Stop Dose Admin Acetaminophen 650 mg 11/13/24 21:07 11/19/24 03:09 Acetaminophen Elixir 325 Mg/10.15 Ml Udc FEED TUBE 650 mg Q6H PRN Administration Fever >101 Allopurinol 100 mg 11/15/24 09:00 11/30/24 08:51 Allopurinol 100 Mg Tablet FEED TUBE 100 mg DAILY JHONY Administration Alteplase, Recombinant 2 mg 11/20/24 13:51 11/25/24 22:36 Alteplase 2 Mg Vial (Cathflo) IV PUSH 2 mg ONCE PRN Administration Line Occlusion Amlodipine Besylate 5 mg 11/22/24 09:00 11/29/24 10:35 Amlodipine Besylate 5 Mg Tablet FEED TUBE Not Given DAILY JHONY Aspirin 81 mg 11/04/24 08:00 11/30/24 08:51 Aspirin 81 Mg Chewable Tablet FEED TUBE 81 mg DAILY@0800 [facility] Administration Carvedilol 6.25 mg 11/22/24 09:00 11/29/24 10:35 Carvedilol 6.25 Mg Tablet FEED TUBE Not Given Q12HR JHONY Collagenase 1 applic 11/13/24 09:00 11/30/24 08:51 Collagenase Oint 30 Gm Tube TOPICAL 1 applic Q12HR JHONY Administration Dextrose 12.5 gm 10/17/24 21:26 10/30/24 05:55 Dextrose 50% 25 Gm/50 Ml Syringe IV PUSH 12.5 gm PRN PRN Administration Hypoglycemia Protocol Enoxaparin Sodium 40 mg 11/02/24 09:00 11/30/24 08:51 Enoxaparin 40 Mg/0.4 Ml Syringe SUB-Q 40 mg DAILY JHONY Administration Famotidine 20 mg 11/24/24 09:00 11/30/24 08:51 Famotidine 20 Mg Tablet FEED TUBE 20 mg Q12HR JHONY Administration Folic Acid 1 mg 10/24/24 09:00 11/30/24 08:51 Folic Acid 1 Mg Tablet FEED TUBE 1 mg QAM JHONY Administration Glucagon 1 mg 10/17/24 21:26 Glucagon For Inj 1 Mg Vial IM PRN PRN Hypoglycemia Protocol Glucose 15 gm 11/13/24 21:07 Glucose Oral Gel 15 Gm Of Glucse In 37.5 Gm Tube FEED TUBE PRN PRN Hypoglycemia Protocol Dextrose 1,000 mls @ 100 mls/hr 10/17/24 21:26 Dextrose 5% 1,000 Ml IVPB PRN PRN Hypoglycemia Protocol Insulin Aspart 3 - 6 units 11/08/24 12:00 11/30/24 12:02 Insulin Aspart (*Bkc) 100 Units/Ml SUB-Q Not Given Q6HR JHONY Protocol Rosuvastatin Calcium 10 mg 11/04/24 09:00 11/30/24 08:51 Rosuvastatin 10 Mg Tablet FEED TUBE 10 mg DAILY JHONY Administration Saccharomyces Boulardii 250 mg 11/14/24 09:00 11/30/24 08:51 Saccharomyces Boulardii 250 Mg Capsule FEED TUBE 250 mg DAILY JHONY Administration Sodium Chloride 10 ml 11/08/24 14:00 11/30/24 13:32 Central Line Flush IV PUSH 10 ml Q8HR JHONY Administration Sodium Chloride 10 ml 11/08/24 08:15 Central Line Flush IV PUSH PRN PRN with TPN bag changes Sodium Chloride 20 ml 11/08/24 08:15 11/25/24 06:08 Central Line Flush IV PUSH 20 ml PRN PRN Administration after blood draws Thiamine HCl 100 mg 10/24/24 09:00 11/30/24 08:51 Thiamine Hcl 100 Mg Tablet FEED TUBE 100 mg QAM JHONY Administration Radiology Results: ITS Impressions Face CT 10/19/24 09:39 IMPRESSION: 1. Extensive sinus disease with near complete opacification of the right maxillary sinus and dependently layering fluid in the bilateral sphenoid sinuses. Correlate clinically for acute sinusitis. 2. Dental and periodontal disease with periapical lucency surrounding the posterior most remaining right maxillary molar. Renal Ultrasound 10/19/24 09:48 IMPRESSION: No hydronephrosis or renal calculi. No parenchymal findings to suggest the presence of medical renal disease. Simple cysts within the right kidney, for which no further follow-up is needed. Brain MRI 10/24/24 14:22 IMPRESSION: 1. Age-related changes the brain. No acute intracranial process. 2. Prominent sinus disease with fluid nearly filling the right maxillary sinus and layering dependently in the bilateral sphenoid sinuses. Correlate clinically for acute sinusitis. Lumbar Puncture Fluoroscopy 10/31/24 17:34 IMPRESSION: 1. Successful fluoro-guided lumbar puncture with mildly elevated opening pressure of 23 cm water. Modified Barium Swallow 11/06/24 10:05 IMPRESSION: Nondiagnostic study as all contents either leaked or were actively expelled from the mouth. No swallows were able to be evaluated. Please correl ate with speech pathologist findings and specific feeding recommendations. Abdomen X-Ray 11/08/24 07:55 Impression: NG tube in satisfactory position. Probable small bowel obstruction. Chest/Abdomen/Pelvis CT 11/08/24 09:59 IMPRESSION: CHEST: 1. Right basilar atelectasis versus pneumonia with pleural effusion. 2. No other acute cardiopulmonary pathology. ABDOMEN/PELVIS: 1. Free air is seen anteriorly around the liver with minimal fluid. 2. Significant ascites in the pelvis. Drainage tube is seen in the left side of the pelvis. 3. Cholelithiasis with thickened wall of the gallbladder. Evaluation for cholecystitis advised. 4. Slightly dilated small bowel loops in the left upper abdomen which may indicate ileus follow-up advised. 5. Right renal cysts. Upper GI Series 11/09/24 13:49 IMPRESSION: 1. Left lower quadrant jejunostomy tube in expected position with injected contrast opacifying the normal-appearing jejunum with no extraluminal leakage of contrast. Head CT 11/14/24 05:17 Impression: No intracranial hemorrhage, mass, or acute infarct. Atrophy and chronic white matter changes, as above. Abdomen Ultrasound 11/14/24 15:13 IMPRESSION: Highly suggestive cholecystitis with cholelithiasis and gallbladder sludge. Clinical correlation advised. Minimal ascites. Minimal right pleural effusion. Cholecystostomy 11/15/24 16:04 IMPRESSION: 1. Successful ultrasound-guided cholecystostomy tube placement. 2. 13 mL bile was sent for aerobic, anaerobic, and fungal cultures. 3. The catheter will be managed by Dr. Ortiz. A catheter cholangiogram may be performed not less than 48 hours after tube placement if clinically indicated to assess cystic duct patency. If cholecystectomy is not eventually performed and the infectious episode has resolved, the tube may be removed over a guidewire, preferably not less than 3 weeks after placement to allow time for a mature catheter tract to form to prevent bile leakage and peritonitis. Chest X-Ray 11/19/24 08:55 Impression: Clear lungs. Right-sided PICC line in place. Catheter Placement CT 11/20/24 17:00 IMPRESSION: Technically successful CT-guided 10 [place]ese drainage catheter placement within a (likely)perioperative infected hematoma, as detailed above. Specimen was sent for the culture evaluation. The catheter will need to be forwarded flushed (towards the patient and towards the drainage catheter) twice daily with 10 cc of normal saline. ADDENDUM: 11/22/24 1113 IMPRESSION: Technically successful CT-guided 10 [place]ese drainage catheter placement within a (likely)perioperative infected hematoma, as detailed above. Of note, perioperative includes periprocedural. In no way, is this a reference to any of the procedures/surgeries that this patient has undergone. Given his prolonged hospital course, this rim-enhancing fluid collection could be from any of a number of causes, and was not mentioned in any way to refer to the percutaneous jejunostomy, which (once again) is in excellent position. In addition, the percutaneous cholecystostomy tube is not transhepatic, but enters the gallbladder directly (on imaging). Abdomen/Pelvis CT 11/26/24 09:40 IMPRESSION: 1. Right abdominal percutaneous drainage catheter within a persistent 8.7 x 4.6 x 5.9 cm loculated fluid collection within the right abdomen which could represent hematoma or abscess. 2. Percutaneous cholecystostomy tube in expected position along with multiple gallstones within the gallbladder. 3. Small right pleural effusion with dependent atelectasis in the right lower lobe. 4. Diffuse body wall, mesenteric and retroperitoneal edema and small amount of ascites in the abdomen and pelvis. 5. Likely reactive abdominal lymphadenopathy. Labs Labs: Laboratory Results - last 24 hr 11/29/24 11/30/24 11/30/24 18:21 00:25 12:00 POC Capillary Glucose 99 110 H 119 H
[2024-11-30 21:58] VITALS: BP 129/80; PULSE 79; RESP 16; TEMP 36.4; O2SAT 100
[2024-12-01 05:32] LABS: Hematocrit 23.4 % (42.0-52.0); Hemoglobin 7.4 g/dL (14.0-18.0); Immature Granulocyte Percent A 0.1 % (0-0.5); Lymphocytes Absolute Auto 2.55 K/mm3 (0.9-3.2); Mean Corpuscular HGB Conc 31.6 g/dl (32-36); Mean Corpuscular Hemoglobin 29.0 pg (26-34); Mean Corpuscular Volume 91.8 fl (80-100); Nucleated Red Blood Cells Absolute Auto 0.000 K/mm3 (0.0-0.012); Nucleated Red Blood Cells Perc 0.0 % (0.0-0.2); Platelet Count Result 291 k/mm3 (150-375); Red Blood Count 2.55 M/mm3 (4.6-6.20); White Blood Count 7.8 K/mm3 (4.5-10.0)
[2024-12-01] MEDS: CENTRAL LINE FLUSH 10 ML IV PUSH ×3 (05:33→20:30)
[2024-12-01 05:48] LABS: Anion Gap 9 mmol/L (4-12); Blood Urea Nitrogen 16 mg/dL (9-20); Calcium 8.9 mg/dL (8.4-10.2); Carbon Dioxide 24 mmol/L (22-30); Chloride 103 mmol/L (98-107); Estimated CRCL calculation 95 ml/min; Estimated Glomerular Filt Rate > 60; Glucose 111 mg/dL (65-110); Magnesium 1.5 mg/dL (1.6-2.3); Potassium 4.2 mmol/L (3.4-5.0); Sodium 136 mmol/L (137-145)
[2024-12-01 06:00] VITALS: BP 125/74; PULSE 75; RESP 18; TEMP 36.6; O2SAT 100
[2024-12-01] MEDS: ASPIRIN 81 MG CHEWABLE TABLET FEED TUBE (08:09)
[2024-12-01] MEDS: SACCHAROMYCES BOULARDII 250 MG CAPSULE FEED TUBE (08:09)
[2024-12-01] MEDS: ENOXAPARIN 40 MG/0.4 ML SYRINGE SUB-Q (08:09)
[2024-12-01] MEDS: FAMOTIDINE 20 MG TABLET FEED TUBE ×2 (08:09→20:29)
[2024-12-01] MEDS: ROSUVASTATIN 10 MG TABLET FEED TUBE (08:09)
[2024-12-01] MEDS: THIAMINE HCL 100 MG TABLET FEED TUBE (08:09)
[2024-12-01] MEDS: FOLIC ACID 1 MG TABLET FEED TUBE (08:09)
[2024-12-01] MEDS: COLLAGENASE OINT 30 GM TUBE 1 APPLIC TOPICAL ×2 (08:10→20:30)
--- NOTE | 2024-12-01 09:35 | P.PNIM_ITS ---
Progress Note: A&P Assessment and Plan (1) Metabolic encephalopathy: Code(s): G93.41 - Metabolic encephalopathy Status: Acute (2) Hypotension: Qualifiers: Hypotension type: unspecified hypotension type Qualified Code(s): I95.9 - Hypotension, unspecified Code(s): I95.9 - Hypotension, unspecified Status: Acute (3) History of jejunostomy tube placement: Status: Chronic (4) Cholelithiasis and cholecystitis with obstruction: Qualifiers: Cholelithiasis location: gallbladder Cholecystitis acuity: acute and chronic Qualified Code(s): K80.13 - Calculus of gallbladder with acute and chronic cholecystitis with obstruction Code(s): K80.19 - Calculus of gallbladder with other cholecystitis with obstruction Status: Acute (5) Intra-abdominal hematoma: Status: Acute (6) Intra-abdominal abscess: Code(s): K65.1 - Peritoneal abscess Status: Ruled-out (7) Anemia: Qualifiers: Anemia type: unspecified type Qualified Code(s): D64.9 - Anemia, unspecified Code(s): D64.9 - Anemia, unspecified Status: Chronic Plan Anemia stable. Continue to monitor Q 24-48 hours unless has any overt bleeding. Continue to hold off on Coreg amlodipine and restart when appropriate. Care coordination currently arranging for discharge to SNF. Stable off of anti biotics. replace magnesium Flush colostomy tube with 10 cc b.i.d.. Lovenox. Full code. Subjective Date/time seen: 12/01/24 09:35 Interval history: No major acute overnight events. Patient appears much more alert today. He is A&O times 2-3 and very talkative. Denies pain, shortness of breath, nausea vomiting or any other complaints. Review of Systems Review of Systems: All systems reviewed & are unremarkable except as noted in HPI and below (Subjective) Exam Const: General: comfortable and no acute distress Eyes: Pupils: Equal, round and reactive pupils present Neck: Neck: supple Resp: Effort & Inspection: normal respiratory effort Auscultation: clear to auscultation bilaterally Cardio: Rate: regular rate Rhythm: regular rhythm GI: Inspection: non-distended GI Palp: Yes Soft to palpation Extrem: General: no edema Objective Data Vital Signs Vital Signs: Vital Signs - 24 hr 11/30/24 13:22 11/30/24 20:00 11/30/24 21:58 Temperature 97.4 F L 97.6 F Pulse Rate 81 79 Respiratory Rate 16 16 Blood Pressure 130/69 129/80 Pulse Oximetry 99 100 Oxygen Delivery Room Air 12/01/24 06:00 Temperature 97.8 F Pulse Rate 75 Respiratory Rate 18 Blood Pressure 125/74 Pulse Oximetry 100 Oxygen Delivery Intake/Output Intake/Output: Intake & Output 11/28/24 11/29/24 11/30/24 12/01/24 23:59 23:59 23:59 23:59 Intake Total 4042 1748 2784 936 Output Total 1560 1105 1930 900 Balance 2482 643 854 36 Meds/Results Medications: Active Medications Generic Name Dose Route Start Last Admin Trade Name Freq PRN Reason Stop Dose Admin Acetaminophen 650 mg 11/13/24 21:07 11/19/24 03:09 Acetaminophen Elixir 325 Mg/10.15 Ml Udc FEED TUBE 650 mg Q6H PRN Administration Fever >101 Allopurinol 100 mg 11/15/24 09:00 12/01/24 08:09 Allopurinol 100 Mg Tablet FEED TUBE 100 mg DAILY JHONY Administration Alteplase, Recombinant 2 mg 11/20/24 13:51 11/25/24 22:36 Alteplase 2 Mg Vial (Cathflo) IV PUSH 2 mg ONCE PRN Administration Line Occlusion Amlodipine Besylate 5 mg 11/22/24 09:00 11/29/24 10:35 Amlodipine Besylate 5 Mg Tablet FEED TUBE Not Given DAILY [facility] Aspirin 81 mg 11/04/24 08:00 12/01/24 08:09 Aspirin 81 Mg Chewable Tablet FEED TUBE 81 mg DAILY@0800 [facility] Administration Carvedilol 6.25 mg 11/22/24 09:00 11/29/24 10:35 Carvedilol 6.25 Mg Tablet FEED TUBE Not Given Q12HR JHONY Collagenase 1 applic 11/13/24 09:00 12/01/24 08:10 Collagenase Oint 30 Gm Tube TOPICAL 1 applic Q12HR JHONY Administration Dextrose 12.5 gm 10/17/24 21:26 10/30/24 05:55 Dextrose 50% 25 Gm/50 Ml Syringe IV PUSH 12.5 gm PRN PRN Administration Hypoglycemia Protocol Enoxaparin Sodium 40 mg 11/02/24 09:00 12/01/24 08:09 Enoxaparin 40 Mg/0.4 Ml Syringe SUB-Q 40 mg DAILY JHONY Administration Famotidine 20 mg 11/24/24 09:00 12/01/24 08:09 Famotidine 20 Mg Tablet FEED TUBE 20 mg Q12HR JHONY Administration Folic Acid 1 mg 10/24/24 09:00 12/01/24 08:09 Folic Acid 1 Mg Tablet FEED TUBE 1 mg QAM JHONY Administration Glucagon 1 mg 10/17/24 21:26 Glucagon For Inj 1 Mg Vial IM PRN PRN Hypoglycemia Protocol Glucose 15 gm 11/13/24 21:07 Glucose Oral Gel 15 Gm Of Glucse In 37.5 Gm Tube FEED TUBE PRN PRN Hypoglycemia Protocol Dextrose 1,000 mls @ 100 mls/hr 10/17/24 21:26 Dextrose 5% 1,000 Ml IVPB PRN PRN Hypoglycemia Protocol Magnesium Sulfate 2 gm in 50 mls @ 25 mls/hr 12/01/24 09:26 Magnesium Sulf 2 Gm/Water 50ml IVPB 12/01/24 11:25 ONCE ONE Rosuvastatin Calcium 10 mg 11/04/24 09:00 12/01/24 08:09 Rosuvastatin 10 Mg Tablet FEED TUBE 10 mg DAILY JHONY Administration Saccharomyces Boulardii 250 mg 11/14/24 09:00 12/01/24 08:09 Saccharomyces Boulardii 250 Mg Capsule FEED TUBE 250 mg DAILY JHONY Administration Sodium Chloride 10 ml 11/08/24 14:00 12/01/24 05:33 Central Line Flush IV PUSH 10 ml Q8HR JHONY Administration Sodium Chloride 10 ml 11/08/24 08:15 Central Line Flush IV PUSH PRN PRN with TPN bag changes Sodium Chloride 20 ml 11/08/24 08:15 11/25/24 06:08 Central Line Flush IV PUSH 20 ml PRN PRN Administration after blood draws Thiamine HCl 100 mg 10/24/24 09:00 12/01/24 08:09 Thiamine Hcl 100 Mg Tablet FEED TUBE 100 mg QAM JHONY Administration Radiology Results: ITS Impressions Face CT 10/19/24 09:39 IMPRESSION: 1. Extensive sinus disease with near complete opacification of the right maxillary sinus and dependently layering fluid in the bilateral sphenoid sinuses. Correlate clinically for acute sinusitis. 2. Dental and periodontal disease with periapical lucency surrounding the posterior most remaining right maxillary molar. Renal Ultrasound 10/19/24 09:48 IMPRESSION: No hydronephrosis or renal calculi. No parenchymal findings to suggest the presence of medical renal disease. Simple cysts within the right kidney, for which no further follow-up is needed. Brain MRI 10/24/24 14:22 IMPRESSION: 1. Age-related changes the brain. No acute intracranial process. 2. Prominent sinus disease with fluid nearly filling the right maxillary sinus and layering dependently in the bilateral sphenoid sinuses. Correlate clinically for acute sinusitis. Lumbar Puncture Fluoroscopy 10/31/24 17:34 IMPRESSION: 1. Successful fluoro-guided lumbar puncture with mildly elevated opening pressure of 23 cm water. Modified Barium Swallow 11/06/24 10:05 IMPRESSION: Nondiagnostic study as all contents either leaked or were actively expelled from the mouth. No swallows were able to be evaluated. Please correlate with speech pathologist findings and specific feeding recommendations. Abdomen X-Ray 11/08/24 07:55 Impression: NG tube in satisfactory position. Probable small bowel obstruction. Chest/Abdomen/Pelvis CT 11/08/24 09:59 IMPRESSION: CHEST: 1. Right basilar atelectasis versus pneumonia with pleural effusion. 2. No other acute cardiopulmonary pathology. ABDOMEN/PELVIS: 1. Free air is seen anteriorly around the liver with minimal fluid. 2. Significant ascites in the pelvis. Drainage tube is seen in the left side of the pelvis. 3. Cholelithiasis with thickened wall of the gallbladder. Evaluation for cholecystitis advised. 4. Slightly dilated small bowel loops in the left upper abdomen which may indicate ileus follow-up advised. 5. Right renal cysts. Upper GI Series 11/09/24 13:49 IMPRESSION: 1. Left lower quadrant jejunostomy tube in expected position with injected contrast opacifying the normal-appearing jejunum with no extraluminal leakage of contrast. Head CT 11/14/24 05:17 Impression: No intracranial hemorrhage, mass, or acute infarct. Atrophy and chronic white matter changes, as above. Abdomen Ultrasound 11/14/24 15:13 IMPRESSION: Highly suggestive cholecystitis with cholelithiasis and gallbladder sludge. Clinical correlation advised. Minimal ascites. Minimal right pleural effusion. Cholecystostomy 11/15/24 16:04 IMPRESSION: 1. Successful ultrasound-guided cholecystostomy tube placement. 2. 13 mL bile was sent for aerobic, anaerobic, and fungal cultures. 3. The catheter will be managed by Dr. Ortiz. A catheter cholangiogram may be performed not less than 48 hours after tube placement if clinically indicated to assess cystic duct patency. If cholecystectomy is not eventually performed and the infectious episode has resolved, the tube may be removed over a guidewire, preferably not less than 3 weeks after placement to allow time for a mature catheter tract to form to prevent bile leakage and peritonitis. Chest X-Ray 11/19/24 08:55 Impression: Clear lungs. Right-sided PICC line in place. Catheter Placement CT 11/20/24 17:00 IMPRESSION: Technically successful CT-guided 10 [place] drainage catheter placement within a (likely)perioperative infected hematoma, as detailed above. Specimen was sent for the culture evaluation. The catheter will need to be forwarded flushed (towards the patient and towards the drainage catheter) twice daily with 10 cc of normal saline. ADDENDUM: 11/22/24 1113 IMPRESSION: Technically successful CT-guided 10 [place] drainage catheter placement within a (likely)perioperative infected hematoma, as detailed above. Of note, perioperative includes periprocedural. In no way, is this a reference to any of the procedures/surgeries that this patient has undergone. Given his prolonged hospital course, this rim-enhancing fluid collection could be from any of a number of causes, and was not mentioned in any way to refer to the percutaneous jejunostomy, which (once again) is in excellent position. In addition, the percutaneous cholecystostomy tube is not transhepatic, but enters the gallbladder directly (on imaging). Abdomen/Pelvis CT 11/26/24 09:40 IMPRESSION: 1. Right abdominal percutaneous drainage catheter within a persistent 8.7 x 4.6 x 5.9 cm loculated fluid collection within the right abdomen which could represent hematoma or abscess. 2. Percutaneous cholecystostomy tube in expected position along with multiple gallstones within the gallbladder. 3. Small right pleural effusion with dependent atelectasis in the right lower lobe. 4. Diffuse body wall, mesenteric and retroperitoneal edema and small amount of ascites in the abdomen and pelvis. 5. Likely reactive abdominal lymphadenopathy. Labs Labs: Laboratory Results - last 24 hr 11/30/24 12/01/24 12:00 05:26 WBC 7.8 RBC 2.55 L Hgb 7.4 L Hct 23.4 L MCV 91.8 MCH 29.0 MCHC 31.6 L RDW 17.3 H Plt Count 291 MPV 10.5 H Immature Gran % (Auto) 0.1 Neut % (Auto) 41.9 L Lymph % (Auto) 32.7 [place] % (Auto) 18.7 H Eos % (Auto) 6.2 H Baso % (Auto) 0.4 Lymph # (Auto) 2.55 [place] # (Auto) 1.5 H Eos # (Auto) 0.5 H Baso # (Auto) 0.0 Abs Immat Gran (auto) 0.01 Absolute Neuts (auto) 3.3 Absolute Nucleated RBC 0.000 Nucleated RBC % 0.0 Sodium 136 L Potassium 4.2 Chloride 103 Carbon Dioxide 24 Anion Gap 9 BUN 16 Creatinine 0.55 L Estim Creat Clear Calc 95 Estimated GFR > 60 Glucose 111 H POC Capillary Glucose 119 H Calcium 8.9 Magnesium 1.5 L
[2024-12-01] MEDS: MAGNESIUM SULF 2 GM/WATER 50ML 2 GM/50 ML BAG IVPB (10:51)
[2024-12-01 14:00] VITALS: BP 116/63; PULSE 64; RESP 16; TEMP 36.8; O2SAT 97
[2024-12-01 22:00] VITALS: BP 99/68; PULSE 84; RESP 16; TEMP 36.2; O2SAT 99
[2024-12-02] MEDS: ACETAMINOPHEN ELIXIR 325 MG/10.15 ML UDC 650 MG FEED TUBE ×2 (04:48→20:08)
[2024-12-02 05:22] LABS: Hematocrit 23.3 % (42.0-52.0); Hemoglobin 7.3 g/dL (14.0-18.0); Immature Granulocyte Percent A 0.3 % (0-0.5); Lymphocytes Absolute Auto 2.63 K/mm3 (0.9-3.2); Mean Corpuscular HGB Conc 31.3 g/dl (32-36); Mean Corpuscular Hemoglobin 29.2 pg (26-34); Mean Corpuscular Volume 93.2 fl (80-100); Nucleated Red Blood Cells Absolute Auto 0.000 K/mm3 (0.0-0.012); Nucleated Red Blood Cells Perc 0.0 % (0.0-0.2); Platelet Count Result 280 k/mm3 (150-375); Red Blood Count 2.50 M/mm3 (4.6-6.20); White Blood Count 7.9 K/mm3 (4.5-10.0)
[2024-12-02 05:40] LABS: Anion Gap 10 mmol/L (4-12); Blood Urea Nitrogen 17 mg/dL (9-20); Calcium 9.1 mg/dL (8.4-10.2); Carbon Dioxide 21 mmol/L (22-30); Chloride 105 mmol/L (98-107); Estimated CRCL calculation 95 ml/min; Estimated Glomerular Filt Rate > 60; Glucose 119 mg/dL (65-110); Magnesium 1.7 mg/dL (1.6-2.3); Potassium 3.7 mmol/L (3.4-5.0); Sodium 136 mmol/L (137-145)
[2024-12-02 06:00] VITALS: BP 111/59; PULSE 81; RESP 18; TEMP 36.3; O2SAT 100
[2024-12-02] MEDS: FAMOTIDINE 20 MG TABLET FEED TUBE ×2 (08:45→20:08)
[2024-12-02] MEDS: ASPIRIN 81 MG CHEWABLE TABLET FEED TUBE (08:45)
[2024-12-02] MEDS: SACCHAROMYCES BOULARDII 250 MG CAPSULE FEED TUBE (08:45)
[2024-12-02] MEDS: THIAMINE HCL 100 MG TABLET FEED TUBE (08:45)
[2024-12-02] MEDS: COLLAGENASE OINT 30 GM TUBE 1 APPLIC TOPICAL ×2 (08:45→20:09)
[2024-12-02] MEDS: ENOXAPARIN 40 MG/0.4 ML SYRINGE SUB-Q (08:45)
[2024-12-02] MEDS: ROSUVASTATIN 10 MG TABLET FEED TUBE (08:45)
[2024-12-02] MEDS: FOLIC ACID 1 MG TABLET FEED TUBE (08:45)
--- NOTE | 2024-12-02 11:36 | P.PNIM_ITS ---
Progress Note: A&P Assessment and Plan (1) Metabolic encephalopathy: Code(s): G93.41 - Metabolic encephalopathy Status: Acute (2) Hypotension: Qualifiers: Hypotension type: unspecified hypotension type Qualified Code(s): I95.9 - Hypotension, unspecified Code(s): I95.9 - Hypotension, unspecified Status: Acute (3) History of jejunostomy tube placement: Status: Chronic (4) Cholelithiasis and cholecystitis with obstruction: Qualifiers: Cholelithiasis location: gallbladder Cholecystitis acuity: acute and chronic Qualified Code(s): K80.13 - Calculus of gallbladder with acute and chronic cholecystitis with obstruction Code(s): K80.19 - Calculus of gallbladder with other cholecystitis with obstruction Status: Acute (5) Intra-abdominal hematoma: Status: Acute (6) Intra-abdominal abscess: Code(s): K65.1 - Peritoneal abscess Status: Ruled-out (7) Anemia: Qualifiers: Anemia type: unspecified type Qualified Code(s): D64.9 - Anemia, unspecified Code(s): D64.9 - Anemia, unspecified Status: Chronic Plan Anemia stable. Continue to monitor Q 24-48 hours unless has any overt bleeding. Continue to hold off on Coreg amlodipine and restart when appropriate. Care coordination currently arranging for discharge to SNF. Stable off of anti biotics. Magnesium 1.7 post replacement on 12/01/2024 Flush colostomy tube with 10 cc b.i.d.. Lovenox. Full code. Subjective Date/time seen: 12/02/24 11:36 Interval history: No major acute overnight events. Alert today. No complaints. Review of Systems Review of Systems: All systems reviewed & are unremarkable except as noted in HPI and below (Subjective) Exam Const: General: comfortable and no acute distress Eyes: Pupils: Equal, round and reactive pupils present Neck: Neck: supple Resp: Effort & Inspection: normal respiratory effort Auscultation: clear to auscultation bilaterally Cardio: Rate: regular rate Rhythm: regular rhythm GI: Inspection: non-distended GI Palp: Yes Soft to palpation Neuro: Motor exam (neuro): 5/5 motor strength present throughout Extrem: General: no edema Objective Data Vital Signs Vital Signs: Vital Signs - 24 hr 12/01/24 14:00 12/01/24 20:00 12/01/24 22:00 Temperature 98.2 F 97.2 F L Pulse Rate 64 84 Respiratory Rate 16 16 Blood Pressure 116/63 99/68 L Pulse Oximetry 97 99 Oxygen Delivery Room Air 12/02/24 06:00 12/02/24 08:00 Temperature 97.4 F L Pulse Rate 81 Respiratory Rate 18 Blood Pressure 111/59 L Pulse Oximetry 100 Oxygen Delivery Room Air Intake/Output Intake/Output: Intake & Output 11/29/24 11/30/24 12/01/24 12/02/24 23:59 23:59 23:59 23:59 Intake Total 1748 2784 986 1670 Output Total 1105 1930 1350 400 Balance 661 122 -914 0961 Meds/Results Medications: Active Medications Generic Name Dose Route Start Last Admin Trade Name Freq PRN Reason Stop Dose Admin Acetaminophen 650 mg 11/13/24 21:07 12/02/24 04:48 Acetaminophen Elixir 325 Mg/10.15 Ml Udc FEED TUBE 650 mg Q6H PRN Administration Pain Allopurinol 100 mg 11/15/24 09:00 12/02/24 08:45 Allopurinol 100 Mg Tablet FEED TUBE 100 mg DAILY JHONY Administration Alteplase, Recombinant 2 mg 11/20/24 13:51 11/25/24 22:36 Alteplase 2 Mg Vial (Cathflo) IV PUSH 2 mg ONCE PRN Administration Line Occlusion Amlodipine Besylate 5 mg 11/22/24 09:00 11/29/24 10:35 Amlodipine Besylate 5 Mg Tablet FEED TUBE Not Given DAILY [facility] Aspirin 81 mg 11/04/24 08:00 12/02/24 08:45 Aspirin 81 Mg Chewable Tablet FEED TUBE 81 mg DAILY@0800 JHONY Administration Carvedilol 6.25 mg 11/22/24 09:00 11/29/24 10:35 Carvedilol 6.25 Mg Tablet FEED TUBE Not Given Q12HR JHONY Collagenase 1 applic 11/13/24 09:00 12/02/24 08:45 Collagenase Oint 30 Gm Tube TOPICAL 1 applic Q12HR JHONY Administration Dextrose 12.5 gm 10/17/24 21:26 10/30/24 05:55 Dextrose 50% 25 Gm/50 Ml Syringe IV PUSH 12.5 gm PRN PRN Administration Hypoglycemia Protocol Enoxaparin Sodium 40 mg 11/02/24 09:00 12/02/24 08:45 Enoxaparin 40 Mg/0.4 Ml Syringe SUB-Q 40 mg DAILY JHONY Administration Famotidine 20 mg 11/24/24 09:00 12/02/24 08:45 Famotidine 20 Mg Tablet FEED TUBE 20 mg Q12HR JHONY Administration Folic Acid 1 mg 10/24/24 09:00 12/02/24 08:45 Folic Acid 1 Mg Tablet FEED TUBE 1 mg QAM JHONY Administration Glucagon 1 mg 10/17/24 21:26 Glucagon For Inj 1 Mg Vial IM PRN PRN Hypoglycemia Protocol Glucose 15 gm 11/13/24 21:07 Glucose Oral Gel 15 Gm Of Glucse In 37.5 Gm Tube FEED TUBE PRN PRN Hypoglycemia Protocol Dextrose 1,000 mls @ 100 mls/hr 10/17/24 21:26 Dextrose 5% 1,000 Ml IVPB PRN PRN Hypoglycemia Protocol Rosuvastatin Calcium 10 mg 11/04/24 09:00 12/02/24 08:45 Rosuvastatin 10 Mg Tablet FEED TUBE 10 mg DAILY JHONY Administration Saccharomyces Boulardii 250 mg 11/14/24 09:00 12/02/24 08:45 Saccharomyces Boulardii 250 Mg Capsule FEED TUBE 250 mg DAILY JHONY Administration Sodium Chloride 10 ml 11/08/24 14:00 12/02/24 08:33 Central Line Flush IV PUSH Not Given Q8HR JHONY Sodium Chloride 10 ml 11/08/24 08:15 Central Line Flush IV PUSH PRN PRN with TPN bag changes Sodium Chloride 20 ml 11/08/24 08:15 11/25/24 06:08 Central Line Flush IV PUSH 20 ml PRN PRN Administration after blood draws Thiamine HCl 100 mg 10/24/24 09:00 12/02/24 08:45 Thiamine Hcl 100 Mg Tablet FEED TUBE 100 mg QAM JHONY Administration Radiology Results: ITS Impressions Face CT 10/19/24 09:39 IMPRESSION: 1. Extensive sinus disease with near complete opacification of the right maxillary sinus and dependently layering fluid in the bilateral sphenoid sinuses. Correlate clinically for acute sinusitis. 2. Dental and periodontal disease with periapical lucency surrounding the posterior most remaining right maxillary molar. Renal Ultrasound 10/19/24 09:48 IMPRESSION: No hydronephrosis or renal calculi. No parenchymal findings to suggest the presence of medical renal disease. Simple cysts within the right kidney, for which no further follow-up is needed. Brain MRI 10/24/24 14:22 IMPRESSION: 1. Age-related changes the brain. No acute intracranial process. 2. Prominent sinus disease with fluid nearly filling the right maxillary sinus and layering dependently in the bilateral sphenoid sinuses. Correlate clinically for acute sinusitis. Lumbar Puncture Fluoroscopy 10/31/24 17:34 IMPRESSION: 1. Successful fluoro-guided lumbar puncture with mildly elevated opening pressure of 23 cm water. Modified Barium Swallow 11/06/24 10:05 IMPRESSION: Nondiagnostic study as all contents either leaked or were actively expelled from the mouth. No swallows were able to be evaluated. Please correlate with speech pathologist findings and specific feeding recommendations. Abdomen X-Ray 11/08/24 07:55 Impression: NG tube in satisfactory position. Probable small bowel obstruction. Chest/Abdomen/Pelvis CT 11/08/24 09:59 IMPRESSION: CHEST: 1. Right basilar atelectasis versus pneumonia with pleural effusion. 2. No other acute cardiopulmonary pathology. ABDOMEN/PELVIS: 1. Free air is seen anteriorly around the liver with minimal fluid. 2. Significant ascites in the pelvis. Drainage tube is seen in the left side of the pelvis. 3. Cholelithiasis with thickened wall of the gallbladder. Evaluation for cholecystitis advised. 4. Slightly dilated small bowel loops in the left upper abdomen which may indicate ileus follow-up advised. 5. Right renal cysts. Upper GI Series 11/09/24 13:49 IMPRESSION: 1. Left lower quadrant jejunostomy tube in expected position with injected contrast opacifying the normal-appearing jejunum with no extraluminal leakage of contrast. Head CT 11/14/24 05:17 Impression: No intracranial hemorrhage, mass, or acute infarct. Atrophy and chronic white matter changes, as above. Abdomen Ultrasound 11/14/24 15:13 IMPRESSION: Highly suggestive cholecystitis with cholelithiasis and gallbladder sludge. Clinical correlation advised. Minimal ascites. Minimal right pleural effusion. Cholecystostomy 11/15/24 16:04 IMPRESSION: 1. Successful ultrasound-guided cholecystostomy tube placement. 2. 13 mL bile was sent for aerobic, anaerobic, and fungal cultures. 3. The catheter will be managed by Dr. Ortiz. A catheter cholangiogram may be performed not less than 48 hours after tube placement if clinically indicated to assess cystic duct patency. If cholecystectomy is not eventually performed and the infectious episode has resolved, the tube may be removed over a guidewire, preferably not less than 3 weeks after placement to allow time for a mature catheter tract to form to prevent bile leakage and peritonitis. Chest X-Ray 11/19/24 08:55 Impression: Clear lungs. Right-sided PICC line in place. Catheter Placement CT 11/20/24 17:00 IMPRESSION: Technically successful CT-guided 10 [place] drainage catheter placement within a (likely)perioperative infected hematoma, as detailed above. Specimen was sent for the culture evaluation. The catheter will need to be forwarded flushed (towards the patient and towards the drainage catheter) twice daily with 10 cc of normal saline. ADDENDUM: 11/22/24 1113 IMPRESSION: Technically successful CT-guided 10 [place] drainage catheter placement within a (likely)perioperative infected hematoma, as detailed above. Of note, perioperative includes periprocedural. In no way, is this a reference to any of the procedures/surgeries that this patient has undergone. Given his prolonged hospital course, this rim-enhancing fluid collection could be from any of a number of causes, and was not mentioned in any way to refer to the percutaneous jejunostomy, which (once again) is in excellent position. In addition, the percutaneous cholecystostomy tube is not transhepatic, but enters the gallbladder directly (on imaging). Abdomen/Pelvis CT 11/26/24 09:40 IMPRESSION: 1. Right abdominal percutaneous drainage catheter within a persistent 8.7 x 4.6 x 5.9 cm loculated fluid collection within the right abdomen which could represent hematoma or abscess. 2. Percutaneous cholecystostomy tube in expected position along with multiple gallstones within the gallbladder. 3. Small right pleural effusion with dependent atelectasis in the right lower lobe. 4. Diffuse body wall, mesenteric and retroperitoneal edema and small amount of ascites in the abdomen and pelvis. 5. Likely reactive abdominal lymphadenopathy. Labs Labs: Laboratory Results - last 24 hr 12/02/24 05:10 WBC 7.9 RBC 2.50 L Hgb 7.3 L Hct 23.3 L MCV 93.2 MCH 29.2 MCHC 31.3 L RDW 17.3 H Plt Count 280 MPV 11.0 H Immature Gran % (Auto) 0.3 Neut % (Auto) 42.7 L Lymph % (Auto) 33.4 [place] % (Auto) 17.6 H Eos % (Auto) 5.7 H Baso % (Auto) 0.3 Lymph # (Auto) 2.63 [place] # (Auto) 1.4 H Eos # (Auto) 0.5 H Baso # (Auto) 0.0 Abs Immat Gran (auto) 0.02 Absolute Neuts (auto) 3.4 Absolute Nucleated RBC 0.000 Nucleated RBC % 0.0 Sodium 136 L Potassium 3.7 Chloride 105 Carbon Dioxide 21 L Anion Gap 10 BUN 17 Creatinine 0.55 L Estim Creat Clear Calc 95 Estimated GFR > 60 Glucose 119 H Calcium 9.1 Magnesium 1.7
[2024-12-02 14:00] VITALS: BP 126/48; PULSE 84; RESP 24; TEMP 36.7; O2SAT 100
[2024-12-02] MEDS: CENTRAL LINE FLUSH 10 ML IV PUSH ×2 (16:23→20:09)
[2024-12-02 20:12] VITALS: BP 130/70; PULSE 97; RESP 20; TEMP 37.1; O2SAT 100
[2024-12-03 05:30] VITALS: BP 111/60; PULSE 87; RESP 16; TEMP 36.8; O2SAT 100
[2024-12-03] MEDS: CENTRAL LINE FLUSH 10 ML IV PUSH ×3 (06:13→19:57)
[2024-12-03] MEDS: FOLIC ACID 1 MG TABLET FEED TUBE (08:44)
[2024-12-03] MEDS: FAMOTIDINE 20 MG TABLET FEED TUBE ×2 (08:44→19:57)
[2024-12-03] MEDS: THIAMINE HCL 100 MG TABLET FEED TUBE (08:44)
[2024-12-03] MEDS: ROSUVASTATIN 10 MG TABLET FEED TUBE (08:44)
[2024-12-03] MEDS: SACCHAROMYCES BOULARDII 250 MG CAPSULE FEED TUBE (08:44)
[2024-12-03] MEDS: COLLAGENASE OINT 30 GM TUBE 1 APPLIC TOPICAL ×2 (08:45→19:57)
[2024-12-03] MEDS: ASPIRIN 81 MG CHEWABLE TABLET FEED TUBE (08:45)
[2024-12-03] MEDS: ENOXAPARIN 40 MG/0.4 ML SYRINGE SUB-Q (09:04)
--- NOTE | 2024-12-03 10:29 | PM.IMPN ---
Progress Note: A&P Assessment and Plan (1) Shock: Code(s): R57.9 - Shock, unspecified Status: Acute (2) Cholelithiasis and cholecystitis with obstruction: Qualifiers: Cholelithiasis location: gallbladder Cholecystitis acuity: acute and chronic Qualified Code(s): K80.13 - Calculus of gallbladder with acute and chronic cholecystitis with obstruction Code(s): K80.19 - Calculus of gallbladder with other cholecystitis with obstruction Status: Acute Plan (1) Shock: Code(s): R57.9 - Shock, unspecified Status: Acute Assessment and Plan: Patient initially presented with septic shock Patient has developed new hypotension 11/08/2024. Suspect aspiration pneumonia versus UTI as patient has had Michelle for more than 2 weeks., or persistent C diff infection Vancomycin 11/14 to 11/19 Continue meropenem (11/08) Day 7 since possible source control but repeat CT showing persistent 8.7cm loculated fluid collection right abdomen. General surgery following and feels this is a hematoma and not infected. Discussed with surgery. Okay to stop antibiotics. Okay for discharge. Plan discharge with cholecystomy tube in place. (2) Intra-abdominal abscess: Code(s): K65.1 - Peritoneal abscess Status: Ruled-out Assessment and Plan: CT 11/19 showing a rim enhancing fluid collection within the right mid to upper abdomen measuring 8.5 cm IR placed a drain 11/20 and felt to be an infected hematoma Abd Abscess Cultures 11/20 Negative Vancomycin 11/14 to 11/19. Meropenem started 11/08 and Day [address] 11/26 showing persistent 8.7cm loculated fluid collection right abdomen. Gen Surgery following and feel this was not infected hematoma. Stop abx. (3) Cholelithiasis and cholecystitis with obstruction: Qualifiers: Cholelithiasis location: gallbladder Cholecystitis acuity: acute and chronic Qualified Code(s): K80.13 - Calculus of gallbladder with acute and chronic cholecystitis with obstruction Code(s): K80.19 - Calculus of gallbladder with other cholecystitis with obstruction Status: Acute Assessment and Plan: As above. Patient with worsening leukocytosis up to 28K with hypotension. Meropenem and vancomycin added. Ultrasound with cholecystitis now status post cholecystostomy tube placement 11/15/2024. Cholecystostomy tube will need to be irrigated as ordered. Plan for tube to remain in place on discharge. (4) Metabolic encephalopathy: Code(s): G93.41 - Metabolic encephalopathy Status: Acute Assessment and Plan: Patient has had Altered mental status since admission which is multifactorial Patient was evaluated by Neurology and suspected to have metabolic encephalopathy. -CT brain on presented was negative for intracranial abnormalities. Repeat CT scan 11/08 also unremarkable -MRI cannot be performed as patient was in the [place] and may have sharpnel exposure according to his daughter -10/19: Repeat CT brain did not show any acute intracranial hemorrhage or suspicious mass effect, inflammatory sinus disease. -10/19: CT facial bones showed extensive sinus disease with near complete opacification of the right maxillary sinus and dependently layering fluid in the bilateral sphenoid sinuses. Dental and periodontal disease with periapical lucency surrounding the posterior most remaining right maxillary molar His ammonia level was normal Lumbar puncture 10/31/2024 with mildly elevated opening pressure of 23 cm water and high protein. 6 RBC/1 WBC with 100% lymphocytes. HSV II PCR negative. WNV negative. Mental status improving since drain placed. Continue to monitor. Increase activity as tolerated. (5) Anemia: Qualifiers: Anemia type: unspecified type Qualified Code(s): D64.9 - Anemia, unspecified Code(s): D64.9 - Anemia, unspecified Status: Chronic Assessment and Plan: He had EGD on 11/01 which showed gastritis and previous gastric surgery Hemoglobin dropped to 5.2 which could be partially dilutional versus GI loss 11/09 Transfuse 2 units PRBC Continue protonix Hgb low but stable in the 7-8 range. Monitor hemoglobin (6) C. difficile diarrhea: Code(s): A04.72 - Enterocolitis due to Clostridium difficile, not specified as recurrent Status: Acute Assessment and Plan: CT abdomen pelvis reviewed Diarrhea improved. IV Flagyl stopped 11/09 Dificid completed on 11/18. Fecal containment system stopped 11/23. Documented stool output noted Monitor stool output. Resume treatment if diarrhea recurs. (7) Acute kidney injury: Code(s): N17.9 - Acute kidney failure, unspecified Status: Acute Assessment and Plan: ICU: Patient presented with Acute kidney injury which improved with IV fluids RESOLVED (8) Thrombocytopenia: Code(s): D69.6 - Thrombocytopenia, unspecified Status: Acute Assessment and Plan: Thrombocytopenia related to sepsis; this has improved High platelet count at this time suggest hemoconcentration RESOLVED (9) Hyperkalemia: Code(s): E87.5 - Hyperkalemia Status: Acute Assessment and Plan: Hyperkalemia with ALEJANDRO Calcium gluconate, insulin and D50, bicarb received Lokelma in ICU IV fluid bolus RESOLVED (10) Acute respiratory failure: Code(s): J96.00 - Acute respiratory failure, unspecified whether with hypoxia or hypercapnia Status: Acute Assessment and Plan: RESOLVED Subjective Date/time seen: 12/03/24 10:29 Interval history: I saw exam patient today, patient is alert, has no complaints. Patient has no obvious distress Exam Narrative: GENERAL: Ill-appearing, protein mild nutrition, in no acute distress. Well-nourished. - EYES: EOMI. Anicteric. - HENT: Moist mucous membranes. - LUNGS: Clear to auscultation bilaterally, no wheezing, rhonchi, or rales. - CARDIOVASCULAR: Regular rate and rhythm. No murmur. No JVD. - ABDOMEN: Soft, non-tender and non-distended. No palpable masses. - EXTREMITIES: No edema. Peripheral pulses 2+. Non-tender. - NEUROLOGIC: No focal neurological deficits. CN II-XII grossly intact. - PSYCHIATRIC: Awake, Alert and oriented x 3. Appropriate mood and affect. - SKIN: No rashes or lesions. Warm. - LYMPH: No cervical lymphadenopathy. Objective Data Vital Signs Vital Signs: Vital Signs - 24 hr 12/02/24 14:00 12/02/24 20:12 12/03/24 05:30 Temperature 98.1 F 98.8 F 98.2 F Pulse Rate 84 97 87 Respiratory Rate 24 H 20 16 Blood Pressure 126/48 L 130/70 111/60 Pulse Oximetry 100 100 100 Intake/Output Intake/Output: Intake & Output 11/30/24 12/01/24 12/02/24 12/03/24 23:59 23:59 23:59 23:59 Intake Total 2784 2096 2870 731 Output Total 1930 1350 750 515 Balance 208 827 0311 216 Meds/Results Medications: Active Medications Generic Name Dose Route Start Last Admin Trade Name Freq PRN Reason Stop Dose Admin Acetaminophen 650 mg 11/13/24 21:07 12/02/24 20:08 Acetaminophen Elixir 325 Mg/10.15 Ml Udc FEED TUBE 650 mg Q6H PRN Administration Pain Allopurinol 100 mg 11/15/24 09:00 12/03/24 08:44 Allopurinol 100 Mg Tablet FEED TUBE 100 mg DAILY JHONY Administration Alteplase, Recombinant 2 mg 11/20/24 13:51 11/25/24 22:36 Alteplase 2 Mg Vial (Cathflo) IV PUSH 2 mg ONCE PRN Administration Line Occlusion Amlodipine Besylate 5 mg 11/22/24 09:00 11/29/24 10:35 Amlodipine Besylate 5 Mg Tablet FEED TUBE Not Given DAILY JHONY Aspirin 81 mg 11/04/24 08:00 12/03/24 08:45 Aspirin 81 Mg Chewable Tablet FEED TUBE 01/02/25 23:59 81 mg DAILY@0800 JHONY Administration Carvedilol 6.25 mg 11/22/24 09:00 11/29/24 10:35 Carvedilol 6.25 Mg Tablet FEED TUBE Not Given Q12HR [facility] Collagenase 1 applic 11/13/24 09:00 12/03/24 08:45 Collagenase Oint 30 Gm Tube TOPICAL 1 applic Q12HR JHONY Administration Dextrose 12.5 gm 10/17/24 21:26 10/30/24 05:55 Dextrose 50% 25 Gm/50 Ml Syringe IV PUSH 12.5 gm PRN PRN Administration Hypoglycemia Protocol Enoxaparin Sodium 40 mg 11/02/24 09:00 12/03/24 09:04 Enoxaparin 40 Mg/0.4 Ml Syringe SUB-Q 40 mg DAILY JHONY Administration Famotidine 20 mg 11/24/24 09:00 12/03/24 08:44 Famotidine 20 Mg Tablet FEED TUBE 20 mg Q12HR JHONY Administration Folic Acid 1 mg 10/24/24 09:00 12/03/24 08:44 Folic Acid 1 Mg Tablet FEED TUBE 1 mg QAM JHONY Administration Glucagon 1 mg 10/17/24 21:26 Glucagon For Inj 1 Mg Vial IM PRN PRN Hypoglycemia Protocol Glucose 15 gm 11/13/24 21:07 Glucose Oral Gel 15 Gm Of Glucse In 37.5 Gm Tube FEED TUBE PRN PRN Hypoglycemia Protocol Dextrose 1,000 mls @ 100 mls/hr 10/17/24 21:26 Dextrose 5% 1,000 Ml IVPB PRN PRN Hypoglycemia Protocol Rosuvastatin Calcium 10 mg 11/04/24 09:00 12/03/24 08:44 Rosuvastatin 10 Mg Tablet FEED TUBE 10 mg DAILY JHONY Administration Saccharomyces Boulardii 250 mg 11/14/24 09:00 12/03/24 08:44 Saccharomyces Boulardii 250 Mg Capsule FEED TUBE 250 mg DAILY JHONY Administration Sodium Chloride 10 ml 11/08/24 14:00 12/03/24 06:13 Central Line Flush IV PUSH 10 ml Q8HR JHONY Administration Sodium Chloride 10 ml 11/08/24 08:15 Central Line Flush IV PUSH PRN PRN with TPN bag changes Sodium Chloride 20 ml 11/08/24 08:15 11/25/24 06:08 Central Line Flush IV PUSH 20 ml PRN PRN Administration after blood draws Thiamine HCl 100 mg 10/24/24 09:00 12/03/24 08:44 Thiamine Hcl 100 Mg Tablet FEED TUBE 100 mg QAM JHONY Administration Radiology Results: ITS Impressions Face CT 10/19/24 09:39 IMPRESSION: 1. Extensive sinus disease with near complete opacification of the right maxillary sinus and dependently layering fluid in the bilateral sphenoid sinuses. Correlate clinically for acute sinusitis. 2. Dental and periodontal disease with periapical lucency surrounding the posterior most remaining right maxillary molar. Renal Ultrasound 10/19/24 09:48 IMPRESSION: No hydronephrosis or renal calculi. No parenchymal findings to suggest the presence of medical renal disease. Simple cysts within the right kidney, for which no further follow-up is needed. Brain MRI 10/24/24 14:22 IMPRESSION: 1. Age-related changes the brain. No acute intracranial process. 2. Prominent sinus disease with fluid nearly filling the right maxillary sinus and layering dependently in the bilateral sphenoid sinuses. Correlate clinically for acute sinusitis. Lumbar Puncture Fluoroscopy 10/31/24 17:34 IMPRESSION: 1. Successful fluoro-guided lumbar puncture with mildly elevated opening pressure of 23 cm water. Modified Barium Swallow 11/06/24 10:05 IMPRESSION: Nondiagnostic study as all contents either leaked or were actively expelled from the mouth. No swallows were able to be evaluated. Please correlate with speech pathologist findings and specific feeding recommendations. Abdomen X-Ray 11/08/24 07:55 Impression: NG tube in satisfactory position. Probable small bowel obstruction. Chest/Abdomen/Pelvis CT 11/08/24 09:59 IMPRESSION: CHEST: 1. Right basilar atelectasis versus pneumonia with pleural effusion. 2. No other acute cardiopulmonary pathology. ABDOMEN/PELVIS: 1. Free air is seen anteriorly around the liver with minimal fluid. 2. Significant ascites in the pelvis. Drainage tube is seen in the left side of the pelvis. 3. Cholelithiasis with thickened wall of the gallbladder. Evaluation for cholecystitis advised. 4. Slightly dilated small bowel loops in the left upper abdomen which may indicate ileus follow-up advised. 5. Right renal cysts. Upper GI Series 11/09/24 13:49 IMPRESSION: 1. Left lower quadrant jejunostomy tube in expected position with injected contrast opacifying the normal-appearing jejunum with no extraluminal leakage of contrast. Head CT 11/14/24 05:17 Impression: No intracranial hemorrhage, mass, or acute infarct. Atrophy and chronic white matter changes, as above. Abdomen Ultrasound 11/14/24 15:13 IMPRESSION: Highly suggestive cholecystitis with cholelithiasis and gallbladder sludge. Clinical correlation advised. Minimal ascites. Minimal right pleural effusion. Cholecystostomy 11/15/24 16:04 IMPRESSION: 1. Successful ultrasound-guided cholecystostomy tube placement. 2. 13 mL bile was sent for aerobic, anaerobic, and fungal cultures. 3. The catheter will be managed by Dr. Ortiz. A catheter cholangiogram may be performed not less than 48 hours after tube placement if clinically indicated to assess cystic duct patency. If cholecystectomy is not eventually performed and the infectious episode has resolved, the tube may be removed over a guidewire, preferably not less than 3 weeks after placement to allow time for a mature catheter tract to form to prevent bile leakage and peritonitis. Chest X-Ray 11/19/24 08:55 Impression: Clear lungs. Right-sided PICC line in place. Catheter Placement CT 11/20/24 17:00 IMPRESSION: Technically successful CT-guided 10 [place] drainage catheter placement within a (likely)perioperative infected hematoma, as detailed above. Specimen was sent for the culture evaluation. The catheter will need to be forwarded flushed (towards the patient and towards the drainage catheter) twice daily with 10 cc of normal saline. ADDENDUM: 11/22/24 1113 IMPRESSION: Technically successful CT-guided 10 [place] drainage catheter placement within a (likely)perioperative infected hematoma, as detailed above. Of note, perioperative includes periprocedural. In no way, is this a reference to any of the procedures/surgeries that this patient has undergone. Given his prolonged hospital course, this rim-enhancing fluid collection could be from any of a number of causes, and was not mentioned in any way to refer to the percutaneous jejunostomy, which (once again) is in excellent position. In addition, the percutaneous cholecystostomy tube is not transhepatic, but enters the gallbladder directly (on imaging). Abdomen/Pelvis CT 11/26/24 09:40 IMPRESSION: 1. Right abdominal percutaneous drainage catheter within a persistent 8.7 x 4.6 x 5.9 cm loculated fluid collection within the right abdomen which could represent hematoma or abscess. 2. Percutaneous cholecystostomy tube in expected position along with multiple gallstones within the gallbladder. 3. Small right pleural effusion with dependent atelectasis in the right lower lobe. 4. Diffuse body wall, mesenteric and retroperitoneal edema and small amount of ascites in the abdomen and pelvis. 5. Likely reactive abdominal lymphadenopathy.
[2024-12-03 14:00] VITALS: BP 107/64; PULSE 89; RESP 18; TEMP 37.3; O2SAT 100
[2024-12-03 19:44] VITALS: BP 117/57; PULSE 92; RESP 12; TEMP 37.7; O2SAT 99
[2024-12-03] MEDS: ACETAMINOPHEN ELIXIR 325 MG/10.15 ML UDC 650 MG FEED TUBE (21:13)
[2024-12-04 04:34] VITALS: BP 112/62; PULSE 84; RESP 24; TEMP 37.2; O2SAT 100
[2024-12-04] MEDS: CENTRAL LINE FLUSH 10 ML IV PUSH ×3 (05:54→20:24)
[2024-12-04] MEDS: ASPIRIN 81 MG CHEWABLE TABLET FEED TUBE (08:13)
[2024-12-04] MEDS: ENOXAPARIN 40 MG/0.4 ML SYRINGE SUB-Q (08:13)
[2024-12-04] MEDS: FOLIC ACID 1 MG TABLET FEED TUBE (08:13)
[2024-12-04] MEDS: FAMOTIDINE 20 MG TABLET FEED TUBE ×2 (08:13→20:24)
[2024-12-04] MEDS: ROSUVASTATIN 10 MG TABLET FEED TUBE (08:13)
[2024-12-04] MEDS: THIAMINE HCL 100 MG TABLET FEED TUBE (08:13)
[2024-12-04] MEDS: COLLAGENASE OINT 30 GM TUBE 1 APPLIC TOPICAL ×2 (08:14→20:24)
[2024-12-04] MEDS: SACCHAROMYCES BOULARDII 250 MG CAPSULE FEED TUBE (08:14)
--- NOTE | 2024-12-04 09:49 | P.PNIM_ITS ---
Progress Note: A&P Assessment and Plan (1) Shock: Code(s): R57.9 - Shock, unspecified Status: Acute (2) Cholelithiasis and cholecystitis with obstruction: Qualifiers: Cholecystitis acuity: acute and chronic Cholelithiasis location: gallbladder Qualified Code(s): K80.13 - Calculus of gallbladder with acute and chronic cholecystitis with obstruction Code(s): K80.19 - Calculus of gallbladder with other cholecystitis with obstruction Status: Acute Plan (1) Shock: Code(s): R57.9 - Shock, unspecified Status: Acute Assessment and Plan: Patient initially presented with septic shock Patient has developed new hypotension 11/08/2024. Suspect aspiration pneumonia versus UTI as patient has had Michelle for more than 2 weeks., or persistent C diff infection Vancomycin 11/14 to 11/19 Continue meropenem (11/08) Day 7 since possible source control but repeat CT showing persistent 8.7cm loculated fluid collection right abdomen. General surgery following and feels this is a hematoma and not infected. Discussed with surgery. Okay to stop antibiotics. Okay for discharge. Plan discharge with cholecystomy tube in place. (2) Intra-abdominal abscess: Code(s): K65.1 - Peritoneal abscess Status: Ruled-out Assessment and Plan: CT 11/19 showing a rim enhancing fluid collection within the right mid to upper abdomen measuring 8.5 cm IR placed a drain 11/20 and felt to be an infected hematoma Abd Abscess Cultures 11/20 Negative Vancomycin 11/14 to 11/19. Meropenem started 11/08 and Day [address] 11/26 showing persistent 8.7cm loculated fluid collection right abdomen. Gen Surgery following and feel this was not infected hematoma. Stop abx. (3) Cholelithiasis and cholecystitis with obstruction: Qualifiers: Cholelithiasis location: gallbladder Cholecystitis acuity: acute and chronic Qualified Code(s): K80.13 - Calculus of gallbladder with acute and chronic cholecystitis with obstruction Code(s): K80.19 - Calculus of gallbladder with other cholecystitis with obstruction Status: Acute Assessment and Plan: As above. Patient with worsening leukocytosis up to 28K with hypotension. Meropenem and vancomycin added. Ultrasound with cholecystitis now status post cholecystostomy tube placement 11/15/2024. Cholecystostomy tube will need to be irrigated as ordered. Plan for tube to remain in place on discharge. (4) Metabolic encephalopathy: Code(s): G93.41 - Metabolic encephalopathy Status: Acute Assessment and Plan: Patient has had Altered mental status since admission which is multifactorial Patient was evaluated by Neurology and suspected to have metabolic encephalopathy. -CT brain on presented was negative for intracranial abnormalities. Repeat CT scan 11/08 also unremarkable -MRI cannot be performed as patient was in the [place] and may have sharpnel exposure according to his daughter -10/19: Repeat CT brain did not show any acute intracranial hemorrhage or suspicious mass effect, inflammatory sinus disease. -10/19: CT facial bones showed extensive sinus disease with near complete opacification of the right maxillary sinus and dependently layering fluid in the bilateral sphenoid sinuses. Dental and periodontal disease with periapical lucency surrounding the posterior most remaining right maxillary molar His ammonia level was normal Lumbar puncture 10/31/2024 with mildly elevated opening pressure of 23 cm water and high protein. 6 RBC/1 WBC with 100% lymphocytes. HSV II PCR negative. WNV negative. Mental status improving since drain placed. Continue to monitor. Increase activity as tolerated. (5) Anemia: Qualifiers: Anemia type: unspecified type Qualified Code(s): D64.9 - Anemia, unspecified Code(s): D64.9 - Anemia, unspecified Status: Chronic Assessment and Plan: He had EGD on 11/01 which showed gastritis and previous gastric surgery Hemoglobin dropped to 5.2 which could be partially dilutional versus GI loss 11/09 Transfuse 2 units PRBC Continue protonix Hgb low but stable in the 7-8 range. Monitor hemoglobin (6) C. difficile diarrhea: Code(s): A04.72 - Enterocolitis due to Clostridium difficile, not specified as recurrent Status: Acute Assessment and Plan: CT abdomen pelvis reviewed Diarrhea improved. IV Flagyl stopped 11/09 Dificid completed on 11/18. Fecal containment system stopped 11/23. Documented stool output noted Monitor stool output. Resume treatment if diarrhea recurs. (7) Acute kidney injury: Code(s): N17.9 - Acute kidney failure, unspecified Status: Acute Assessment and Plan: ICU: Patient presented with Acute kidney injury which improved with IV fluids RESOLVED (8) Thrombocytopenia: Code(s): D69.6 - Thrombocytopenia, unspecified Status: Acute Assessment and Plan: Thrombocytopenia related to sepsis; this has improved High platelet count at this time suggest hemoconcentration RESOLVED (9) Hyperkalemia: Code(s): E87.5 - Hyperkalemia Status: Acute Assessment and Plan: Hyperkalemia with ALEJANDRO Calcium gluconate, insulin and D50, bicarb received Lokelma in ICU IV fluid bolus RESOLVED (10) Acute respiratory failure: Code(s): J96.00 - Acute respiratory failure, unspecified whether with hypoxia or hypercapnia Status: Acute Assessment and Plan: RESOLVED Subjective Date/time seen: 12/04/24 09:49 Interval history: I saw exam patient today, patient is alert, oriented to place, has no complaints. Patient has no obvious distress Exam Narrative: GENERAL: Ill-appearing, protein mild nutrition, in no acute distress. Well- nourished. - EYES: EOMI. Anicteric. - HENT: Moist mucous membranes. - LUNGS: Clear to auscultation bilateral ly, no wheezing, rhonchi, or rales. - CARDIOVASCULAR: Regular rate and rhyth m. No murmur. No JVD. - ABDOMEN: Soft, non-tender and non-dist ended. No palpable masses. - EXTREMITIES: No edema. Peripheral puls es 2+. Non-tender. - NEUROLOGIC: No focal neurological defi cits. CN II-XII grossly intact. - PSYCHIATRIC: Awake, Alert and oriented to place only. Appropriate mood and affect. - SKIN: No rashes or lesions. Warm. - LYMPH: No cervical lymphadenopathy. Objective Data Vital Signs Vital Signs: Vital Signs - 24 hr 12/03/24 14:00 12/03/24 19:44 12/03/24 20:00 Temperature 99.2 F 99.9 F H Pulse Rate 89 92 Respiratory Rate 18 12 Blood Pressure 107/64 117/57 L Pulse Oximetry 100 99 Oxygen Delivery Room Air 12/04/24 04:34 Temperature 99 F Pulse Rate 84 Respiratory Rate 24 H Blood Pressure 112/62 Pulse Oximetry 100 Oxygen Delivery Intake/Output Intake/Output: Intake & Output 12/01/24 12/02/24 12/03/24 12/04/24 23:59 23:59 23:59 23:59 Intake Total 2052 9400 731 Output Total 1350 531 915 200 Balance 746 2120 -184 -200 Meds/Results Medications: Active Medications Generic Name Dose Route Start Last Admin Trade Name Freq PRN Reason Stop Dose Admin Acetaminophen 650 mg 11/13/24 21:07 12/03/24 21:13 Acetaminophen Elixir 325 Mg/10.15 Ml Udc FEED TUBE 650 mg Q6H PRN Administration Pain Allopurinol 100 mg 11/15/24 09:00 12/04/24 08:13 Allopurinol 100 Mg Tablet FEED TUBE 100 mg DAILY JHONY Administration Alteplase, Recombinant 2 mg 11/20/24 13:51 11/25/24 22:36 Alteplase 2 Mg Vial (Cathflo) IV PUSH 2 mg ONCE PRN Administration Line Occlusion Amlodipine Besylate 5 mg 11/22/24 09:00 11/29/24 10:35 Amlodipine Besylate 5 Mg Tablet FEED TUBE Not Given DAILY JHONY Aspirin 81 mg 11/04/24 08:00 12/04/24 08:13 Aspirin 81 Mg Chewable Tablet FEED TUBE 01/02/25 23:59 81 mg DAILY@0800 JHONY Administration Carvedilol 6.25 mg 11/22/24 09:00 11/29/24 10:35 Carvedilol 6.25 Mg Tablet FEED TUBE Not Given Q12HR JHONY Collagenase 1 applic 11/13/24 09:00 12/04/24 08:14 Collagenase Oint 30 Gm Tube TOPICAL 1 applic Q12HR JHONY Administration Dextrose 12.5 gm 10/17/24 21:26 10/30/24 05:55 Dextrose 50% 25 Gm/50 Ml Syringe IV PUSH 12.5 gm PRN PRN Administration Hypoglycemia Protocol Enoxaparin Sodium 40 mg 11/02/24 09:00 12/04/24 08:13 Enoxaparin 40 Mg/0.4 Ml Syringe SUB-Q 40 mg DAILY JHONY Administration Famotidine 20 mg 11/24/24 09:00 12/04/24 08:13 Famotidine 20 Mg Tablet FEED TUBE 20 mg Q12HR JHONY Administration Folic Acid 1 mg 10/24/24 09:00 12/04/24 08:13 Folic Acid 1 Mg Tablet FEED TUBE 1 mg QAM JHONY Administration Glucagon 1 mg 10/17/24 21:26 Glucagon For Inj 1 Mg Vial IM PRN PRN Hypoglycemia Protocol Glucose 15 gm 11/13/24 21:07 Glucose Oral Gel 15 Gm Of Glucse In 37.5 Gm Tube FEED TUBE PRN PRN Hypoglycemia Protocol Dextrose 1,000 mls @ 100 mls/hr 10/17/24 21:26 Dextrose 5% 1,000 Ml IVPB PRN PRN Hypoglycemia Protocol Rosuvastatin Calcium 10 mg 11/04/24 09:00 12/04/24 08:13 Rosuvastatin 10 Mg Tablet FEED TUBE 10 mg DAILY JHONY Administration Saccharomyces Boulardii 250 mg 11/14/24 09:00 12/04/24 08:14 Saccharomyces Boulardii 250 Mg Capsule FEED TUBE 250 mg DAILY JHONY Administration Sodium Chloride 10 ml 11/08/24 14:00 12/04/24 05:54 Central Line Flush IV PUSH 10 ml Q8HR JHONY Administration Sodium Chloride 10 ml 11/08/24 08:15 Central Line Flush IV PUSH PRN PRN with TPN bag changes Sodium Chloride 20 ml 11/08/24 08:15 11/25/24 06:08 Central Line Flush IV PUSH 20 ml PRN PRN Administration after blood draws Thiamine HCl 100 mg 10/24/24 09:00 12/04/24 08:13 Thiamine Hcl 100 Mg Tablet FEED TUBE 100 mg QAM JHONY Administration Radiology Results: ITS Impressions Face CT 10/19/24 09:39 IMPRESSION: 1. Extensive sinus disease with near complete opacification of the right maxillary sinus and dependently layering fluid in the bilateral sphenoid sinuses. Correlate clinically for acute sinusitis. 2. Dental and periodontal disease with periapical lucency surrounding the posterior most remaining right maxillary molar. Renal Ultrasound 10/19/24 09:48 IMPRESSION: No hydronephrosis or renal calculi. No parenchymal findings to suggest the presence of medical renal disease. Simple cysts within the right kidney, for which no further follow-up is needed. Brain MRI 10/24/24 14:22 IMPRESSION: 1. Age-related changes the brain. No acute intracranial process. 2. Prominent sinus disease with fluid nearly filling the right maxillary sinus and layering dependently in the bilateral sphenoid sinuses. Correlate clinically for acute sinusitis. Lumbar Puncture Fluoroscopy 10/31/24 17:34 IMPRESSION: 1. Successful fluoro-guided lumbar puncture with mildly elevated opening pressure of 23 cm water. Modified Barium Swallow 11/06/24 10:05 IMPRESSION: Nondiagnostic study as all contents either leaked or were actively expelled from the mouth. No swallows were able to be evaluated. Please correlate with speech pathologist findings and specific feeding recommendations. Abdomen X-Ray 11/08/24 07:55 Impression: NG tube in satisfactory position. Probable small bowel obstruction. Chest/Abdomen/Pelvis CT 11/08/24 09:59 IMPRESSION: CHEST: 1. Right basilar atelectasis versus pneumonia with pleural effusion. 2. No other acute cardiopulmonary pathology. ABDOMEN/PELVIS: 1. Free air is seen anteriorly around the liver with minimal fluid. 2. Significant ascites in the pelvis. Drainage tube is seen in the left side of the pelvis. 3. Cholelithiasis with thickened wall of the gallbladder. Evaluation for cholecystitis advised. 4. Slightly dilated small bowel loops in the left upper abdomen which may indicate ileus follow-up advised. 5. Right renal cysts. Upper GI Series 11/09/24 13:49 IMPRESSION: 1. Left lower quadrant jejunostomy tube in expected position with injected contrast opacifying the normal-appearing jejunum with no extraluminal leakage of contrast. Head CT 11/14/24 05:17 Impression: No intracranial hemorrhage, mass, or acute infarct. Atrophy and chronic white matter changes, as above. Abdomen Ultrasound 11/14/24 15:13 IMPRESSION: Highly suggestive cholecystitis with cholelithiasis and gallbladder sludge. Clinical correlation advised. Minimal ascites. Minimal right pleural effusion. Cholecystostomy 11/15/24 16:04 IMPRESSION: 1. Successful ultrasound-guided cholecystostomy tube placement. 2. 13 mL bile was sent for aerobic, anaerobic, and fungal cultures. 3. The catheter will be managed by Dr. Ortiz. A catheter cholangiogram may be performed not less than 48 hours after tube placement if clinically indicated to assess cystic duct patency. If cholecystectomy is not eventually performed and the infectious episode has resolved, the tube may be removed over a guidewire, preferably not less than 3 weeks after placement to allow time for a mature catheter tract to form to prevent bile leakage and peritonitis. Chest X-Ray 11/19/24 08:55 Impression: Clear lungs. Right-sided PICC line in place. Catheter Placement CT 11/20/24 17:00 IMPRESSION: Technically successful CT-guided 10 [place] drainage catheter placement within a (likely)perioperative infected hematoma, as detailed above. Specimen was sent for the culture evaluation. The catheter will need to be forwarded flushed (towards the patient and towards the drainage catheter) twice daily with 10 cc of normal saline. ADDENDUM: 11/22/24 1113 IMPRESSION: Technically successful CT-guided 10 [place] drainage catheter placement within a (likely)perioperative infected hematoma, as detailed above. Of note, perioperative includes periprocedural. In no way, is this a reference to any of the procedures/surgeries that this patient has undergone. Given his prolonged hospital course, this rim-enhancing fluid collection could be from any of a number of causes, and was not mentioned in any way to refer to the percutaneous jejunostomy, which (once again) is in excellent position. In addition, the percutaneous cholecystostomy tube is not transhepatic, but enters the gallbladder directly (on imaging). Abdomen/Pelvis CT 11/26/24 09:40 IMPRESSION: 1. Right abdominal percutaneous drainage catheter within a persistent 8.7 x 4.6 x 5.9 cm loculated fluid collection within the right abdomen which could represent hematoma or abscess. 2. Percutaneous cholecystostomy tube in expected position along with multiple gallstones within the gallbladder. 3. Small right pleural effusion with dependent atelectasis in the right lower lobe. 4. Diffuse body wall, mesenteric and retroperitoneal edema and small amount of ascites in the abdomen and pelvis. 5. Likely reactive abdominal lymphadenopathy.
[2024-12-04 10:36] LABS: Hematocrit 22.2 % (42.0-52.0); Hemoglobin 7.1 g/dL (14.0-18.0); Immature Granulocyte Percent A 0.3 % (0-0.5); Lymphocytes Absolute Auto 3.08 K/mm3 (0.9-3.2); Mean Corpuscular HGB Conc 32.0 g/dl (32-36); Mean Corpuscular Hemoglobin 29.1 pg (26-34); Mean Corpuscular Volume 91.0 fl (80-100); Nucleated Red Blood Cells Absolute Auto 0.000 K/mm3 (0.0-0.012); Nucleated Red Blood Cells Perc 0.0 % (0.0-0.2); Platelet Count Result 281 k/mm3 (150-375); Red Blood Count 2.44 M/mm3 (4.6-6.20); White Blood Count 11.0 K/mm3 (4.5-10.0)
[2024-12-04 11:00] LABS: Anion Gap 10 mmol/L (4-12); Blood Urea Nitrogen 19 mg/dL (9-20); Calcium 8.8 mg/dL (8.4-10.2); Carbon Dioxide 22 mmol/L (22-30); Chloride 103 mmol/L (98-107); Estimated CRCL calculation 91 ml/min; Estimated Glomerular Filt Rate > 60; Glucose 114 mg/dL (65-110); Potassium 3.9 mmol/L (3.4-5.0); Sodium 135 mmol/L (137-145)
--- NOTE | 2024-12-04 11:15 | PCNFU ---
Nutrition Follow-Up Complete: Inadequate Oral Intake as related to AMS as evidenced by NPO. Goal: Meet estimated nutritional needs Patient is meeting goal. Pt current nutrition is Jevity 1.5 at 55 ml/hr. Last recorded weight is 68.4 kg, up from 66 kg on admit. Bowel Motility: Last reported BM 12/04 Labs Reviewed:Glu 117, Cr 0.62, Hgb 7.1, Hct 22.2 Meds Noted: Protonix, Thiamine, Lovenox, Folic Acid. Skin: WNL Additional Notes: Patient remains on a tube feedings of Jevity 1.5 at 55 ml/hr. Flush 100 ml q 4 hours. Tube feedings are providing 1815 kcal/84 gm protein/920 ml water. Agree with diet orders. will monitor weight, labs, skin, diet orders, meds every Tuesday and Tuesday.
[2024-12-04 14:00] VITALS: BP 119/76; PULSE 88; RESP 22; TEMP 37.9; O2SAT 100
[2024-12-04 17:12] LABS: Add Urine Microscopic? YES; Appearance Urine Clear (Clear); Glucose Urine UA Negative (Negative); Leukocyte Esterase Ur Negative LEU/UL (Negative); Nitrate Urine Negative (Negative); Non Pathogenic Casts 0-2; Specific Grav Ur 1.016 (1.001-1.035)
--- NOTE | 2024-12-04 17:17 | PC.NURSE ---
call to lab to see that frog shaker gets blood cultures drawn, then I will administer antibiotics as ordered
[2024-12-04] MEDS: cefTRIAXone 2 GM in SODIUM CHLORIDE 0.9% IV 100 ML 200 ML IVPB (18:01)
[2024-12-04 19:20] VITALS: BP 121/73; PULSE 90; RESP 16; TEMP 36.8; O2SAT 100
[2024-12-05 03:09] VITALS: BP 133/64; PULSE 84; RESP 16; TEMP 36.3; O2SAT 95
[2024-12-05] MEDS: CENTRAL LINE FLUSH 10 ML IV PUSH (04:15)
[2024-12-05 04:20] LABS: Hematocrit 22.6 % (42.0-52.0); Hemoglobin 7.1 g/dL (14.0-18.0); Immature Granulocyte Percent A 0.4 % (0-0.5); Lymphocytes Absolute Auto 2.22 K/mm3 (0.9-3.2); Mean Corpuscular HGB Conc 31.4 g/dl (32-36); Mean Corpuscular Hemoglobin 28.7 pg (26-34); Mean Corpuscular Volume 91.5 fl (80-100); Nucleated Red Blood Cells Absolute Auto 0.000 K/mm3 (0.0-0.012); Nucleated Red Blood Cells Perc 0.0 % (0.0-0.2); Platelet Count Result 276 k/mm3 (150-375); Red Blood Count 2.47 M/mm3 (4.6-6.20); White Blood Count 9.1 K/mm3 (4.5-10.0)
[2024-12-05 04:40] LABS: Anion Gap 11 mmol/L (4-12); Blood Urea Nitrogen 18 mg/dL (9-20); Calcium 9.0 mg/dL (8.4-10.2); Carbon Dioxide 22 mmol/L (22-30); Chloride 104 mmol/L (98-107); Estimated CRCL calculation 94 ml/min; Estimated Glomerular Filt Rate > 60; Glucose 116 mg/dL (65-110); Potassium 4.1 mmol/L (3.4-5.0); Sodium 137 mmol/L (137-145)
[2024-12-05] MEDS: ASPIRIN 81 MG CHEWABLE TABLET FEED TUBE (09:40)
[2024-12-05] MEDS: THIAMINE HCL 100 MG TABLET FEED TUBE (09:40)
[2024-12-05] MEDS: SACCHAROMYCES BOULARDII 250 MG CAPSULE FEED TUBE (09:40)
[2024-12-05] MEDS: FOLIC ACID 1 MG TABLET FEED TUBE (09:40)
[2024-12-05] MEDS: FAMOTIDINE 20 MG TABLET FEED TUBE ×2 (09:40→21:59)
[2024-12-05] MEDS: ROSUVASTATIN 10 MG TABLET FEED TUBE (09:40)
[2024-12-05] MEDS: ENOXAPARIN 40 MG/0.4 ML SYRINGE SUB-Q (09:41)
[2024-12-05] MEDS: COLLAGENASE OINT 30 GM TUBE 1 APPLIC TOPICAL ×2 (09:42→21:59)
--- NOTE | 2024-12-05 11:41 | P.PNIM_ITS ---
Progress Note: A&P Assessment and Plan (1) Shock: Code(s): R57.9 - Shock, unspecified Status: Acute (2) Cholelithiasis and cholecystitis with obstruction: Qualifiers: Cholelithiasis location: gallbladder Cholecystitis acuity: acute and chronic Qualified Code(s): K80.13 - Calculus of gallbladder with acute and chronic cholecystitis with obstruction Code(s): K80.19 - Calculus of gallbladder with other cholecystitis with obstruction Status: Acute Plan (1) Shock: Code(s): R57.9 - Shock, unspecified Status: Acute Assessment and Plan: Patient initially presented with septic shock Patient has developed new hypotension 11/08/2024. Suspect aspiration pneumonia versus UTI as patient has had Michelle for more than 2 weeks., or persistent C diff infection Vancomycin 11/14 to 11/19 Continue meropenem (11/08) Day 7 since possible source control but repeat CT showing persistent 8.7cm loculated fluid collection right abdomen. General surgery following and feels this is a hematoma and not infected. Discussed with surgery. Okay to stop antibiotics. (2) Intra-abdominal abscess: Code(s): K65.1 - Peritoneal abscess Status: Ruled-out Assessment and Plan: CT 11/19 showing a rim enhancing fluid collection within the right mid to upper abdomen measuring 8.5 cm IR placed a drain 11/20 and felt to be an infected hematoma Abd Abscess Cultures 11/20 Negative Vancomycin 11/14 to 11/19. Meropenem started 11/08 and Day [address] 11/26 showing persistent 8.7cm loculated fluid collection right abdomen. Gen Surgery following and feel this was not infected hematoma. Stop abx. (3) Cholelithiasis and cholecystitis with obstruction: Qualifiers: Cholelithiasis location: gallbladder Cholecystitis acuity: acute and chronic Qualified Code(s): K80.13 - Calculus of gallbladder with acute and chronic cholecystitis with obstruction Code(s): K80.19 - Calculus of gallbladder with other cholecystitis with obstruction Status: Acute Assessment and Plan: As above. Patient with worsening leukocytosis up to 28K with hypotension. Meropenem and vancomycin added. Ultrasound with cholecystitis now status post cholecystostomy tube placement 11/15/2024. Cholecystostomy tube will need to be irrigated as ordered. Plan for tube to remain in place on discharge. (4) Metabolic encephalopathy: Code(s): G93.41 - Metabolic encephalopathy Status: Acute Assessment and Plan: Patient has had Altered mental status since admission which is multifactorial Patient was evaluated by Neurology and suspected to have metabolic encephalopathy. -CT brain on presented was negative for intracranial abnormalities. Repeat CT scan 11/08 also unremarkable -MRI cannot be performed as patient was in the [place] and may have sharpnel exposure according to his daughter -10/19: Repeat CT brain did not show any acute intracranial hemorrhage or suspicious mass effect, inflammatory sinus disease. -10/19: CT facial bones showed extensive sinus disease with near complete opacification of the right maxillary sinus and dependently layering fluid in the bilateral sphenoid sinuses. Dental and periodontal disease with periapical lucency surrounding the posterior most remaining right maxillary molar His ammonia level was normal Lumbar puncture 10/31/2024 with mildly elevated opening pressure of 23 cm water and high protein. 6 RBC/1 WBC with 100% lymphocytes. HSV II PCR negative. WNV negative. Mental status improving since drain placed. Continue to monitor. Increase activity as tolerated. (5) Anemia: Qualifiers: Anemia type: unspecified type Qualified Code(s): D64.9 - Anemia, unspecified Code(s): D64.9 - Anemia, unspecified Status: Chronic Assessment and Plan: He had EGD on 11/01 which showed gastritis and previous gastric surgery Hemoglobin dropped to 5.2 which could be partially dilutional versus GI loss 11/09 Transfuse 2 units PRBC Continue protonix Hgb low but stable in the 7-8 range. Monitor hemoglobin (6) C. difficile diarrhea: Code(s): A04.72 - Enterocolitis due to Clostridium difficile, not specified as recurrent Status: Acute Assessment and Plan: CT abdomen pelvis reviewed Diarrhea improved. IV Flagyl stopped 11/09 Dificid completed on 11/18. Fecal containment system stopped 11/23. Documented stool output noted Monitor stool output. Resume treatment if diarrhea recurs. (7) Acute kidney injury: Code(s): N17.9 - Acute kidney failure, unspecified Status: Acute Assessment and Plan: ICU: Patient presented with Acute kidney injury which improved with IV fluids RESOLVED (8) Thrombocytopenia: Code(s): D69.6 - Thrombocytopenia, unspecified Status: Acute Assessment and Plan: Thrombocytopenia related to sepsis; this has improved High platelet count at this time suggest hemoconcentration RESOLVED (9) Hyperkalemia: Code(s): E87.5 - Hyperkalemia Status: Acute Assessment and Plan: Hyperkalemia with ALEJANDRO Calcium gluconate, insulin and D50, bicarb received Lokelma in ICU IV fluid bolus RESOLVED (10) Acute respiratory failure: Code(s): J96.00 - Acute respiratory failure, unspecified whether with hypoxia or hypercapnia Status: Acute Assessment and Plan: RESOLVED fever 12/04/24 unclear etiology possible aspiration follow culture results. monitor off of ABx Subjective Date/time seen: 12/05/24 11:41 Interval history: patient was seen and examined at bedside. he is feeling fine, denies any pain, had fever yesterday, will follow B/C results. Review of Systems Review of Systems: All systems reviewed & are unremarkable except as noted in HPI and below (Subjective) ROS unobtainable: Yes unobtainable due to endotracheal tube, unobtainable due to medical condition and unobtainable due to mental status Neurologic: Reports confusion Psychiatric: Psychiatric: Reports confusion Exam Narrative: GENERAL: Ill-appearing, protein mild nutrition, in no acute distress. Well- nourished. - EYES: EOMI. Anicteric. - HENT: Moist mucous membranes. - LUNGS: Clear to auscultation bilateral ly, no wheezing, rhonchi, or rales. - CARDIOVASCULAR: Regular rate and rhyth m. No murmur. No JVD. - ABDOMEN: Soft, non-tender and non-dist ended. No palpable masses. - EXTREMITIES: No edema. Peripheral puls es 2+. Non-tender. - NEUROLOGIC: No focal neurological defi cits. CN II-XII grossly intact. - PSYCHIATRIC: Awake, Alert and oriented to place only. Appropriate mood and affect. - SKIN: No rashes or lesions. Warm. - LYMPH: No cervical lymphadenopathy. Const: General: comfortable, no acute distress, alert, awake, confusion, ill appearing, patient obtunded (intubated. Just taken off sedation.) and thin Nutritional Appearance: thin Orientation/consciousness: confusion and patient obtunded (intubated. Just taken off sedation.) Other: , frail, ill-appearing, elderly HENMT: Face/Nose/Sinus: Normal nares present Mouth: Yes moist mucous membranes and Yes dry mucous membranes Other: ngt in place Eyes: General: appearance normal, both eyes and all related structures Sclera: sclerae normal Pupils: Equal, round and reactive pupils present EOM: EOMs intact bilaterally Neck: Neck: supple Resp: Effort & Inspection: normal respiratory effort Auscultation: clear to auscultation bilaterally Cardio: Rate: regular rate Rhythm: regular rhythm Other: S1-S2 present without murmur, rub, ectopy GI: Inspection: non-distended, incision (Dry and healing well, no erythema or drainage), scaphoid, scar (Large upper abdominal midline scar as before) and other (mildly distended) Auscultation: normal bowel sounds and Hypoactive bowel sounds present Other: Jejunostomy tube clamped and dressing dry and intact, no erythema around the jejunostomy tube : General: Yes bladder normal to palpation Urinary Catheter: Urinary Catheter: patent and draining Skin: General skin exam: normal color and no rashes or lesions noted Other: Superficial bilateral buttock friction maceration noted with three small (<2-3 cm) open wounds that are superficial with a healthy appearing pink wound bed, no necrotic tissue or purulent drainage. Neuro: General: confusion Cranial nerves: Yes Equal, round and reactive pupils present Other: Garbled speech, difficult to understand. A&O x1. Moving all extremities, however + 1 in all extremities. Left foot weaker than right. Public Relations Officer symmetric. Right facial droop verses droop due to swelling. Extrem: General: normal to inspection and no edema Psych: Other: Poor insight and judgment at present, pleasant. Objective Data Vital Signs Vital Signs: Vital Signs - 24 hr 12/04/24 14:00 12/04/24 19:20 12/05/24 03:09 Temperature 100.2 F H 98.2 F 97.4 F L Pulse Rate 88 90 84 Respiratory Rate 22 H 16 16 Blood Pressure 119/76 121/73 133/64 Pulse Oximetry 100 100 95 Intake/Output Intake/Output: Intake & Output 12/02/24 12/03/24 12/04/24 12/05/24 23:59 23:59 23:59 23:59 Intake Total 2870 731 2652 540 Output Total 750 247 115 0065 Balance 2120 -184 3384 -329 Meds/Results Medications: Active Medications Generic Name Dose Route Start Last Admin Trade Name Freq PRN Reason Stop Dose Admin Acetaminophen 650 mg 11/13/24 21:07 12/03/24 21:13 Acetaminophen Elixir 325 Mg/10.15 Ml Udc FEED TUBE 650 mg Q6H PRN Administration Pain Allopurinol 100 mg 11/15/24 09:00 12/05/24 09:40 Allopurinol 100 Mg Tablet FEED TUBE 100 mg DAILY JHONY Administration Alteplase, Recombinant 2 mg 11/20/24 13:51 11/25/24 22:36 Alteplase 2 Mg Vial (Cathflo) IV PUSH 2 mg ONCE PRN Administration Line Occlusion Amlodipine Besylate 5 mg 11/22/24 09:00 11/29/24 10:35 Amlodipine Besylate 5 Mg Tablet FEED TUBE Not Given DAILY JHONY Aspirin 81 mg 11/04/24 08:00 12/05/24 09:40 Aspirin 81 Mg Chewable Tablet FEED TUBE 01/02/25 23:59 81 mg DAILY@0800 JHONY Administration Carvedilol 6.25 mg 11/22/24 09:00 11/29/24 10:35 Carvedilol 6.25 Mg Tablet FEED TUBE Not Given Q12HR JHONY Collagenase 1 applic 11/13/24 09:00 12/05/24 09:42 Collagenase Oint 30 Gm Tube TOPICAL 1 applic Q12HR JHONY Administration Dextrose 12.5 gm 10/17/24 21:26 10/30/24 05:55 Dextrose 50% 25 Gm/50 Ml Syringe IV PUSH 12.5 gm PRN PRN Administration Hypoglycemia Protocol Enoxaparin Sodium 40 mg 11/02/24 09:00 12/05/24 09:41 Enoxaparin 40 Mg/0.4 Ml Syringe SUB-Q 40 mg DAILY JHONY Administration Famotidine 20 mg 11/24/24 09:00 12/05/24 09:40 Famotidine 20 Mg Tablet FEED TUBE 20 mg Q12HR JHONY Administration Folic Acid 1 mg 10/24/24 09:00 12/05/24 09:40 Folic Acid 1 Mg Tablet FEED TUBE 1 mg QAM JHONY Administration Glucagon 1 mg 10/17/24 21:26 Glucagon For Inj 1 Mg Vial IM PRN PRN Hypoglycemia Protocol Glucose 15 gm 11/13/24 21:07 Glucose Oral Gel 15 Gm Of Glucse In 37.5 Gm Tube FEED TUBE PRN PRN Hypoglycemia Protocol Dextrose 1,000 mls @ 100 mls/hr 10/17/24 21:26 Dextrose 5% 1,000 Ml IVPB PRN PRN Hypoglycemia Protocol Rosuvastatin Calcium 10 mg 11/04/24 09:00 12/05/24 09:40 Rosuvastatin 10 Mg Tablet FEED TUBE 10 mg DAILY JHONY Administration Saccharomyces Boulardii 250 mg 11/14/24 09:00 12/05/24 09:40 Saccharomyces Boulardii 250 Mg Capsule FEED TUBE 250 mg DAILY JHONY Administration Sodium Chloride 10 ml 11/08/24 14:00 12/05/24 04:15 Central Line Flush IV PUSH 10 ml Q8HR JHONY Administration Sodium Chloride 10 ml 11/08/24 08:15 Central Line Flush IV PUSH PRN PRN with TPN bag changes Sodium Chloride 20 ml 11/08/24 08:15 11/25/24 06:08 Central Line Flush IV PUSH 20 ml PRN PRN Administration after blood draws Thiamine HCl 100 mg 10/24/24 09:00 12/05/24 09:40 Thiamine Hcl 100 Mg Tablet FEED TUBE 100 mg QAM JHONY Administration Radiology Results: ITS Impressions Face CT 10/19/24 09:39 IMPRESSION: 1. Extensive sinus disease with near complete opacification of the right maxillary sinus and dependently layering fluid in the bilateral sphenoid sinus es. Correlate clinically for acute sinusitis. 2. Dental and periodontal disease with periapical lucency surrounding the posterior most remaining right maxillary molar. Renal Ultrasound 10/19/24 09:48 IMPRESSION: No hydronephrosis or renal calculi. No parenchymal findings to suggest the presence of medical renal disease. Simple cysts within the right kidney, for which no further follow-up is needed. Brain MRI 10/24/24 14:22 IMPRESSION: 1. Age-related changes the brain. No acute intracranial process. 2. Prominent sinus disease with fluid nearly filling the right maxillary sinus and layering dependently in the bilateral sphenoid sinuses. Correlate clinically for acute sinusitis. Lumbar Puncture Fluoroscopy 10/31/24 17:34 IMPRESSION: 1. Successful fluoro-guided lumbar puncture with mildly elevated opening pressure of 23 cm water. Modified Barium Swallow 11/06/24 10:05 IMPRESSION: Nondiagnostic study as all contents either leaked or were actively expelled from the mouth. No swallows were able to be evaluated. Please correlate with speech pathologist findings and specific feeding recommendations. Abdomen X-Ray 11/08/24 07:55 Impression: NG tube in satisfactory position. Probable small bowel obstruction. Chest/Abdomen/Pelvis CT 11/08/24 09:59 IMPRESSION: CHEST: 1. Right basilar atelectasis versus pneumonia with pleural effusion. 2. No other acute cardiopulmonary pathology. ABDOMEN/PELVIS: 1. Free air is seen anteriorly around the liver with minimal fluid. 2. Significant ascites in the pelvis. Drainage tube is seen in the left side of the pelvis. 3. Cholelithiasis with thickened wall of the gallbladder. Evaluation for cholecystitis advised. 4. Slightly dilated small bowel loops in the left upper abdomen which may indicate ileus follow-up advised. 5. Right renal cysts. Upper GI Series 11/09/24 13:49 IMPRESSION: 1. Left lower quadrant jejunostomy tube in expected position with injected contrast opacifying the normal-appearing jejunum with no extraluminal leakage of contrast. Head CT 11/14/24 05:17 Impression: No intracranial hemorrhage, mass, or acute infarct. Atrophy and chronic white matter changes, as above. Abdomen Ultrasound 11/14/24 15:13 IMPRESSION: Highly suggestive cholecystitis with cholelithiasis and gallbladder sludge. Clinical correlation advised. Minimal ascites. Minimal right pleural effusion. Cholecystostomy 11/15/24 16:04 IMPRESSION: 1. Successful ultrasound-guided cholecystostomy tube placement. 2. 13 mL bile was sent for aerobic, anaerobic, and fungal cultures. 3. The catheter will be managed by Dr. Ortiz. A catheter cholangiogram may be performed not less than 48 hours after tube placement if clinically indicated to assess cystic duct patency. If cholecystectomy is not eventually performed and the infectious episode has resolved, the tube may be removed over a guidewire, preferably not less than 3 weeks after placement to allow time for a mature catheter tract to form to prevent bile leakage and peritonitis. Catheter Placement CT 11/20/24 17:00 IMPRESSION: Technically successful CT-guided 10 Chinese drainage catheter placement within a (likely)perioperative infected hematoma, as detailed above. Specimen was sent for the culture evaluation. The catheter will need to be forwarded flushed (towards the patient and towards the drainage catheter) twice daily with 10 cc of normal saline. ADDENDUM: 11/22/24 1113 IMPRESSION: Technically successful CT-guided 10 Chinese drainage catheter placement within a (likely)perioperative infected hematoma, as detailed above. Of note, perioperative includes periprocedural. In no way, is this a reference to any of the procedures/surgeries that this patient has undergone. Given his prolonged hospital course, this rim-enhancing fluid collection could be from any of a number of causes, and was not mentioned in any way to refer to the percutaneous jejunostomy, which (once again) is in excellent position. In addition, the percutaneous cholecystostomy tube is not transhepatic, but enters the gallbladder directly (on imaging). Abdomen/Pelvis CT 11/26/24 09:40 IMPRESSION: 1. Right abdominal percutaneous drainage catheter within a persistent 8.7 x 4.6 x 5.9 cm loculated fluid collection within the right abdomen which could represent hematoma or abscess. 2. Percutaneous cholecystostomy tube in expected position along with multiple gallstones within the gallbladder. 3. Small right pleural effusion with dependent atelectasis in the right lower lobe. 4. Diffuse body wall, mesenteric and retroperitoneal edema and small amount of ascites in the abdomen and pelvis. 5. Likely reactive abdominal lymphadenopathy. Chest X-Ray 12/04/24 16:22 IMPRESSION: No acute cardiopulmonary pathology. Labs Labs: Laboratory Results - last 24 hr 12/04/24 12/05/24 16:57 04:14 WBC 9.1 RBC 2.47 L Hgb 7.1 L Hct 22.6 L MCV 91.5 MCH 28.7 MCHC 31.4 L RDW 16.7 H Plt Count 276 MPV 10.0 Immature Gran % (Auto) 0.4 Neut % (Auto) 55.5 Lymph % (Auto) 24.3 [place] % (Auto) 15.0 H Eos % (Auto) 4.7 H Baso % (Auto) 0.1 L Lymph # (Auto) 2.22 [place] # (Auto) 1.4 H Eos # (Auto) 0.4 H Baso # (Auto) 0.0 Abs Immat Gran (auto) 0.04 H Absolute Neuts (auto) 5.1 Absolute Nucleated RBC 0.000 Nucleated RBC % 0.0 Sodium 137 Potassium 4.1 Chloride 104 Carbon Dioxide 22 Anion Gap 11 BUN 18 Creatinine 0.56 L Estim Creat Clear Calc 94 Estimated GFR > 60 Glucose 116 H Calcium 9.0 Urine Color Yellow Urine Appearance Clear Urine pH 6.0 Ur Specific [place] 1.016 Urine Protein Trace Urine Glucose (UA) Negative Urine Ketones Negative Ur Blood (Man) Negative Urine Nitrate Negative Urine Bilirubin Negative Urine Urobilinogen 0.2 Ur Leukocyte Esterase Negative Urine RBC 0-2 Urine WBC 0-5 Ur Squamous Epith Cells None seen Urine Bacteria None seen Urine Casts 0-2 Quality VTE Prophylaxis VTE prophylaxis: mechanical ordered
[2024-12-05 14:00] VITALS: BP 130/71; PULSE 80; RESP 18; TEMP 37.3; O2SAT 100
--- NOTE | 2024-12-05 15:55 | PC.NURSE ---
Ct will be able to use PICC for contrast exam ordered, will remove after CT is completed
[2024-12-05 22:00] VITALS: BP 111/73; PULSE 88; RESP 18; TEMP 36.6; O2SAT 100
[2024-12-06 05:29] LABS: Hematocrit 23.6 % (42.0-52.0); Hemoglobin 7.6 g/dL (14.0-18.0); Immature Granulocyte Percent A 0.4 % (0-0.5); Lymphocytes Absolute Auto 2.71 K/mm3 (0.9-3.2); Mean Corpuscular HGB Conc 32.2 g/dl (32-36); Mean Corpuscular Hemoglobin 29.0 pg (26-34); Mean Corpuscular Volume 90.1 fl (80-100); Nucleated Red Blood Cells Absolute Auto 0.000 K/mm3 (0.0-0.012); Nucleated Red Blood Cells Perc 0.0 % (0.0-0.2); Platelet Count Result 317 k/mm3 (150-375); Red Blood Count 2.62 M/mm3 (4.6-6.20); White Blood Count 8.4 K/mm3 (4.5-10.0)
[2024-12-06 05:39] LABS: Anion Gap 10 mmol/L (4-12); Blood Urea Nitrogen 17 mg/dL (9-20); Calcium 9.0 mg/dL (8.4-10.2); Carbon Dioxide 22 mmol/L (22-30); Chloride 103 mmol/L (98-107); Estimated CRCL calculation 84 ml/min; Estimated Glomerular Filt Rate > 60; Glucose 106 mg/dL (65-110); Potassium 4.2 mmol/L (3.4-5.0); Sodium 135 mmol/L (137-145)
[2024-12-06 06:00] VITALS: BP 116/71; PULSE 81; RESP 18; TEMP 36.4; O2SAT 99
[2024-12-06] MEDS: ENOXAPARIN 40 MG/0.4 ML SYRINGE SUB-Q (08:51)
[2024-12-06] MEDS: FAMOTIDINE 20 MG TABLET FEED TUBE ×2 (08:52→22:17)
[2024-12-06] MEDS: ROSUVASTATIN 10 MG TABLET FEED TUBE (08:52)
[2024-12-06] MEDS: FOLIC ACID 1 MG TABLET FEED TUBE (08:52)
[2024-12-06] MEDS: THIAMINE HCL 100 MG TABLET FEED TUBE (08:52)
[2024-12-06] MEDS: ASPIRIN 81 MG CHEWABLE TABLET FEED TUBE (08:52)
[2024-12-06] MEDS: SACCHAROMYCES BOULARDII 250 MG CAPSULE FEED TUBE (08:52)
[2024-12-06] MEDS: COLLAGENASE OINT 30 GM TUBE 1 APPLIC TOPICAL ×2 (08:53→22:17)
--- NOTE | 2024-12-06 12:28 | P.PNIM_ITS ---
Progress Note: A&P Assessment and Plan (1) Shock: Code(s): R57.9 - Shock, unspecified Status: Acute (2) Cholelithiasis and cholecystitis with obstruction: Qualifiers: Cholelithiasis location: gallbladder Cholecystitis acuity: acute and chronic Qualified Code(s): K80.13 - Calculus of gallbladder with acute and chronic cholecystitis with obstruction Code(s): K80.19 - Calculus of gallbladder with other cholecystitis with obstruction Status: Acute Plan (1) Shock: Code(s): R57.9 - Shock, unspecified Status: Acute Assessment and Plan: Patient initially presented with septic shock Patient has developed new hypotension 11/08/2024. Suspect aspiration pneumonia versus UTI as patient has had Michelle for more than 2 weeks., or persistent C diff infection Vancomycin 11/14 to 11/19 Continue meropenem (11/08) Day 7 since possible source control but repeat CT showing persistent 8.7cm loculated fluid collection right abdomen. General surgery following and feels this is a hematoma and not infected. (2) Intra-abdominal abscess: Code(s): K65.1 - Peritoneal abscess Status: Ruled-out Assessment and Plan: CT 11/19 showing a rim enhancing fluid collection within the right mid to upper abdomen measuring 8.5 cm IR placed a drain 11/20 and felt to be an infected hematoma Abd Abscess Cultures 11/20 Negative Vancomycin 11/14 to 11/19. Meropenem started 11/08 and Day [address] 11/26 showing persistent 8.7cm loculated fluid collection right abdomen. Gen Surgery following and feel this was not infected hematoma. Stop abx. Ct 12/05 Segmental colonic wall thickening, inflammatory change, and possible extraluminal gas at the hepatic flexure, may represent diverticulitis with microperforation, phlegmon or early abscess associated with the gallbladder process, or cholecystocolonic fistula development. reconsulted surgery team (3) Cholelithiasis and cholecystitis with obstruction: Qualifiers: Cholelithiasis location: gallbladder Cholecystitis acuity: acute and chronic Qualified Code(s): K80.13 - Calculus of gallbladder with acute and chronic cholecystitis with obstruction Code(s): K80.19 - Calculus of gallbladder with other cholecystitis with obstruction Status: Acute Assessment and Plan: As above. Patient with worsening leukocytosis up to 28K with hypotension. Meropenem and vancomycin added. Ultrasound with cholecystitis now status post cholecystostomy tube placement 11/15/2024. Cholecystostomy tube will need to be irrigated as ordered. Plan for tube to remain in place on discharge. (4) Metabolic encephalopathy: Code(s): G93.41 - Metabolic encephalopathy Status: Acute Assessment and Plan: Patient has had Altered mental status since admission which is multifactorial Patient was evaluated by Neurology and suspected to have metabolic encephalopathy. -CT brain on presented was negative for intracranial abnormalities. Repeat CT scan 11/08 also unremarkable -MRI cannot be performed as patient was in the [place] and may have sharpnel exposure according to his daughter -10/19: Repeat CT brain did not show any acute intracranial hemorrhage or mike picious mass effect, inflammatory sinus disease. -10/19: CT facial bones showed extensive sinus disease with near complete opacification of the right maxillary sinus and dependently layering fluid in the bilateral sphenoid sinuses. Dental and periodontal disease with periapical lucency surrounding the posterior most remaining right maxillary molar His ammonia level was normal Lumbar puncture 10/31/2024 with mildly elevated opening pressure of 23 cm water and high protein. 6 RBC/1 WBC with 100% lymphocytes. HSV II PCR negative. WNV negative. Mental status improving since drain placed. Continue to monitor. Increase activity as tolerated. (5) Anemia: Qualifiers: Anemia type: unspecified type Qualified Code(s): D64.9 - Anemia, unspecified Code(s): D64.9 - Anemia, unspecified Status: Chronic Assessment and Plan: He had EGD on 11/01 which showed gastritis and previous gastric surgery Hemoglobin dropped to 5.2 which could be partially dilutional versus GI loss 11/09 Transfuse 2 units PRBC Continue protonix Hgb low but stable in the 7-8 range. Monitor hemoglobin (6) C. difficile diarrhea: Code(s): A04.72 - Enterocolitis due to Clostridium difficile, not specified as recurrent Status: Acute Assessment and Plan: CT abdomen pelvis reviewed Diarrhea improved. IV Flagyl stopped 11/09 Dificid completed on 11/18. Fecal containment system stopped 11/23. Documented stool output noted Monitor stool output. Resume treatment if diarrhea recurs. (7) Acute kidney injury: Code(s): N17.9 - Acute kidney failure, unspecified Status: Acute Assessment and Plan: ICU: Patient presented with Acute kidney injury which improved with IV fluids RESOLVED (8) Thrombocytopenia: Code(s): D69.6 - Thrombocytopenia, unspecified Status: Acute Assessment and Plan: Thrombocytopenia related to sepsis; this has improved High platelet count at this time suggest hemoconcentration RESOLVED (9) Hyperkalemia: Code(s): E87.5 - Hyperkalemia Status: Acute Assessment and Plan: Hyperkalemia with ALEJANDRO Calcium gluconate, insulin and D50, bicarb received Lokelma in ICU IV fluid bolus RESOLVED (10) Acute respiratory failure: Code(s): J96.00 - Acute respiratory failure, unspecified whether with hypoxia or hypercapnia Status: Acute Assessment and Plan: RESOLVED fever 12/04/24 unclear etiology possible aspiration follow culture results. monitor off of ABx CT 12/05:Segmental colonic wall thickening, inflammatory change, and possible extraluminal gas at the hepatic flexure, may represent diverticulitis with microperforation, phlegmon or early abscess associated with the gallbladder process, or cholecystocolonic fistula development. will follow surgery team recs Subjective Date/time seen: 12/06/24 12:28 Interval history: patient was seen and examined at bedside. he is feeling fine, denies any pain, had fever yesterday, will follow B/C results. 12/06/24 Patient was seen and ermined at bedside. has some visual hallucination this morning. [facility] showed Segmental colonic wall thickening, inflammatory change, and possible extraluminal gas at the hepatic flexure, may represent diverticulitis with microperforation, phlegmon or early abscess associated with the gallbladder process, or cholecystocolonic fistula development. will follow surgery team recs. Review of Systems Review of Systems: All systems reviewed & are unremarkable except as noted in HPI and below (Subjective) ROS unobtainable: Yes unobtainable due to endotracheal tube, unobtainable due to medical condition and unobtainable due to mental status Neurologic: Reports confusion Psychiatric: Psychiatric: Reports confusion Exam Narrative: GENERAL: Ill-appearing, protein mild nutrition, in no acute distress. Well- nourished. - EYES: EOMI. Anicteric. - HENT: Moist mucous membranes. - LUNGS: Clear to auscultation bilateral ly, no wheezing, rhonchi, or rales. - CARDIOVASCULAR: Regular rate and rhyth m. No murmur. No JVD. - ABDOMEN: Soft, non-tender and non-dist ended. No palpable masses. - EXTREMITIES: No edema. Peripheral puls es 2+. Non-tender. - NEUROLOGIC: No focal neurological defi cits. CN II-XII grossly intact. - PSYCHIATRIC: Awake, Alert and oriented to place only. Appropriate mood and affect. - SKIN: No rashes or lesions. Warm. - LYMPH: No cervical lymphadenopathy. Const: General: comfortable, no acute distress, alert, awake, confusion, ill appearing, patient obtunded (intubated. Just taken off sedation.) and thin Nutritional Appearance: thin Orientation/consciousness: confusion and patient obtunded (intubated. Just taken off sedation.) Other: , frail, ill-appearing, elderly HENMT: Face/Nose/Sinus: Normal nares present Mouth: Yes moist mucous membranes and Yes dry mucous membranes Other: ngt in place Eyes: General: appearance normal, both eyes and all related structures Sclera: sclerae normal Pupils: Equal, round and reactive pupils present EOM: EOMs intact bilaterally Neck: Neck: supple Resp: Effort & Inspection: normal respiratory effort Auscultation: clear to auscultation bilaterally Cardio: Rate: regular rate Rhythm: regular rhythm Other: S1-S2 present without murmur, rub, ectopy GI: Inspection: non-distended, incision (Dry and healing well, no erythema or drainage), scaphoid, scar (Large upper abdominal midline scar as before) and other (mildly distended) Auscultation: normal bowel sounds and Hypoactive bowel sounds present Other: Jejunostomy tube clamped and dressing dry and intact, no erythema around the jejunostomy tube : General: Yes bladder normal to palpation Urinary Catheter: Urinary Catheter: patent and draining Skin: General skin exam: normal color and no rashes or lesions noted Other: Superficial bilateral buttock friction maceration noted with three small (<2-3 cm) open wounds that are superficial with a healthy appearing pink wound bed, no necrotic tissue or purulent drainage. Neuro: General: confusion Cranial nerves: Yes Equal, round and reactive pupils present Other: Garbled speech, difficult to understand. A&O x1. Moving all extremities, however + 1 in all extremities. Left foot weaker than right. Mathematics Instructor symmetric. Right facial droop verses droop due to swelling. Extrem: General: normal to inspection and no edema Psych: Other: Poor insight and judgment at present, pleasant. Objective Data Vital Signs Vital Signs: Vital Signs - 24 hr 12/05/24 14:00 12/05/24 21:40 12/05/24 22:00 Temperature 99.2 F 97.8 F Pulse Rate 80 88 Respiratory Rate 18 18 Blood Pressure 130/71 111/73 Pulse Oximetry 100 100 Oxygen Delivery Room Air 12/06/24 06:00 Temperature 97.6 F Pulse Rate 81 Respiratory Rate 18 Blood Pressure 116/71 Pulse Oximetry 99 Oxygen Delivery Intake/Output Intake/Output: Intake & Output 12/03/24 12/04/24 12/05/24 12/06/24 23:59 23:59 23:59 23:59 Intake Total 731 3832 1720 1678 Output Total 003 451 0136 10 Balance -184 3232 40 1668 Meds/Results Medications: Active Medications Generic Name Dose Route Start Last Admin Trade Name Freq PRN Reason Stop Dose Admin Acetaminophen 650 mg 11/13/24 21:07 12/03/24 21:13 Acetaminophen Elixir 325 Mg/10.15 Ml Udc FEED TUBE 650 mg Q6H PRN Administration Pain Allopurinol 100 mg 11/15/24 09:00 12/06/24 08:52 Allopurinol 100 Mg Tablet FEED TUBE 100 mg DAILY JHONY Administration Alteplase, Recombinant 2 mg 11/20/24 13:51 11/25/24 22:36 Alteplase 2 Mg Vial (Cathflo) IV PUSH 2 mg ONCE PRN Administration Line Occlusion Amlodipine Besylate 5 mg 11/22/24 09:00 11/29/24 10:35 Amlodipine Besylate 5 Mg Tablet FEED TUBE Not Given DAILY JHONY Aspirin 81 mg 11/04/24 08:00 12/06/24 08:52 Aspirin 81 Mg Chewable Tablet FEED TUBE 01/02/25 23:59 81 mg DAILY@0800 [facility] Administration Carvedilol 6.25 mg 11/22/24 09:00 11/29/24 10:35 Carvedilol 6.25 Mg Tablet FEED TUBE Not Given Q12HR JHONY Collagenase 1 applic 11/13/24 09:00 12/06/24 08:53 Collagenase Oint 30 Gm Tube TOPICAL 1 applic Q12HR JHONY Administration Dextrose 12.5 gm 10/17/24 21:26 10/30/24 05:55 Dextrose 50% 25 Gm/50 Ml Syringe IV PUSH 12.5 gm PRN PRN Administration Hypoglycemia Protocol Enoxaparin Sodium 40 mg 11/02/24 09:00 12/06/24 08:51 Enoxaparin 40 Mg/0.4 Ml Syringe SUB-Q 40 mg DAILY JHONY Administration Famotidine 20 mg 11/24/24 09:00 12/06/24 08:52 Famotidine 20 Mg Tablet FEED TUBE 20 mg Q12HR JHONY Administration Folic Acid 1 mg 10/24/24 09:00 12/06/24 08:52 Folic Acid 1 Mg Tablet FEED TUBE 1 mg QAM JHONY Administration Glucagon 1 mg 10/17/24 21:26 Glucagon For Inj 1 Mg Vial IM PRN PRN Hypoglycemia Protocol Glucose 15 gm 11/13/24 21:07 Glucose Oral Gel 15 Gm Of Glucse In 37.5 Gm Tube FEED TUBE PRN PRN Hypoglycemia Protocol Dextrose 1,000 mls @ 100 mls/hr 10/17/24 21:26 Dextrose 5% 1,000 Ml IVPB PRN PRN Hypoglycemia Protocol Rosuvastatin Calcium 10 mg 11/04/24 09:00 12/06/24 08:52 Rosuvastatin 10 Mg Tablet FEED TUBE 10 mg DAILY JHONY Administration Saccharomyces Boulardii 250 mg 11/14/24 09:00 12/06/24 08:52 Saccharomyces Boulardii 250 Mg Capsule FEED TUBE 250 mg DAILY JHONY Administration Sodium Chloride 10 ml 11/08/24 08:15 Central Line Flush IV PUSH PRN PRN with TPN bag changes Thiamine HCl 100 mg 10/24/24 09:00 12/06/24 08:52 Thiamine Hcl 100 Mg Tablet FEED TUBE 100 mg QAM JHONY Administration Radiology Results: ITS Impressions Face CT 10/19/24 09:39 IMPRESSION: 1. Extensive sinus disease with near complete opacification of the right maxillary sinus and dependently layering fluid in the bilateral sphenoid sinuses. Correlate clinically for acute sinusitis. 2. Dental and periodontal disease with periapical lucency surrounding the posterior most remaining right maxillary molar. Renal Ultrasound 10/19/24 09:48 IMPRESSION: No hydronephrosis or renal calculi. No parenchymal findings to suggest the presence of medical renal disease. Simple cysts within the right kidney, for which no further follow-up is needed. Brain MRI 10/24/24 14:22 IMPRESSION: 1. Age-related changes the brain. No acute intracranial process. 2. Prominent sinus disease with fluid nearly filling the right maxillary sinus and layering dependently in the bilateral sphenoid sinuses. Correlate clinically for acute sinusitis. Lumbar Puncture Fluoroscopy 10/31/24 17:34 IMPRESSION: 1. Successful fluoro-guided lumbar puncture with mildly elevated opening pressure of 23 cm water. Modified Barium Swallow 11/06/24 10:05 IMPRESSION: Nondiagnostic study as all contents either leaked or were actively expelled from the mouth. No swallows were able to be evaluated. Please correlate with speech pathologist findings and specific feeding recommendations. Abdomen X-Ray 11/08/24 07:55 Impression: NG tube in satisfactory position. Probable small bowel obstruction. Chest/Abdomen/Pelvis CT 11/08/24 09:59 IMPRESSION: CHEST: 1. Right basilar atelectasis versus pneumonia with pleural effusion. 2. No other acute cardiopulmonary pathology. ABDOMEN/PELVIS: 1. Free air is seen anteriorly around the liver with minimal fluid. 2. Significant ascites in the pelvis. Drainage tube is seen in the left side of the pelvis. 3. Cholelithiasis with thickened wall of the gallbladder. Evaluation for cholecystitis advised. 4. Slightly dilated small bowel loops in the left upper abdomen which may indicate ileus follow-up advised. 5. Right renal cysts. Upper GI Series 11/09/24 13:49 IMPRESSION: 1. Left lower quadrant jejunostomy tube in expected position with injected contrast opacifying the normal-appearing jejunum with no extraluminal leakage of contrast. Head CT 11/14/24 05:17 Impression: No intracranial hemorrhage, mass, or acute infarct. Atrophy and chronic white matter changes, as above. Abdomen Ultrasound 11/14/24 15:13 IMPRESSION: Highly suggestive cholecystitis with cholelithiasis and gallbladder sludge. Clinical correlation advised. Minimal ascites. Minimal right pleural effusion. Cholecystostomy 11/15/24 16:04 IMPRESSION: 1. Successful ultrasound-guided cholecystostomy tube placement. 2. 13 mL bile was sent for aerobic, anaerobic, and fungal cultures. 3. The catheter will be managed by Dr. Ortiz. A catheter cholangiogram may be performed not less than 48 hours after tube placement if clinically indicated to assess cystic duct patency. If cholecystectomy is not eventually performed and the infectious episode has resolved, the tube may be removed over a guidewire, preferably not less than 3 weeks after placement to allow time for a mature catheter tract to form to prevent bile leakage and peritonitis. Catheter Placement CT 11/20/24 17:00 IMPRESSION: Technically successful CT-guided 10 Croatian drainage catheter placement within a (likely)perioperative infected hematoma, as detailed above. Specimen was sent for the culture evaluation. The catheter will need to be forwarded flushed (towards the patient and towards the drainage catheter) twice daily with 10 cc of normal saline. ADDENDUM: 11/22/24 1113 IMPRESSION: Technically successful CT-guided 10 Croatian drainage catheter placement within a (likely)perioperative infected hematoma, as detailed above. Of note, perioperative includes periprocedural. In no way, is this a reference to any of the procedures/surgeries that this patient has undergone. Given his prolonged hospital course, this rim-enhancing fluid collection could be from any of a number of causes, and was not mentioned in any way to refer to the percutaneous jejunostomy, which (once again) is in excellent position. In addition, the percutaneous cholecystostomy tube is not transhepatic, but enters the gallbladder directly (on imaging). Chest X-Ray 12/04/24 16:22 IMPRESSION: No acute cardiopulmonary pathology. Abdomen/Pelvis CT 12/05/24 19:32 IMPRESSION: Trace right pleural effusion. Right upper extremity PICC terminates in the inferior right atrium, consider retraction. Segmental colonic wall thickening, inflammatory change, and possible extraluminal gas at the hepatic flexure, may represent diverticulitis with microperforation, phlegmon or early abscess associated with the gallbladder process, or cholecystocolonic fistula development. Increased organization and decreased overall size of the right abdominal abscess/hematoma. Labs Labs: Laboratory Results - last 24 hr 12/06/24 04:57 WBC 8.4 RBC 2.62 L Hgb 7.6 L Hct 23.6 L MCV 90.1 MCH 29.0 MCHC 32.2 RDW 16.4 H Plt Count 317 MPV 10.8 H Immature Gran % (Auto) 0.4 Neut % (Auto) 47.1 Lymph % (Auto) 32.3 [place] % (Auto) 14.9 H Eos % (Auto) 5.1 H Baso % (Auto) 0.2 Lymph # (Auto) 2.71 [place] # (Auto) 1.3 H Eos # (Auto) 0.4 H Baso # (Auto) 0.0 Abs Immat Gran (auto) 0.03 Absolute Neuts (auto) 4.0 Absolute Nucleated RBC 0.000 Nucleated RBC % 0.0 Sodium 135 L Potassium 4.2 Chloride 103 Carbon Dioxide 22 Anion Gap 10 BUN 17 Creatinine 0.63 L Estim Creat Clear Calc 84 Estimated GFR > 60 Glucose 106 Calcium 9.0 Quality VTE Prophylaxis VTE prophylaxis: mechanical ordered
[2024-12-06 14:00] VITALS: BP 134/71; PULSE 90; RESP 18; TEMP 36.9; O2SAT 100
--- NOTE | 2024-12-06 14:23 | P.CONS_ITS ---
Assessment and Plan Assessment and plan (1) Abnormal CT of the abdomen: Code(s): R93.5 - Abnormal findings on diagnostic imaging of other abdominal regions, including retroperitoneum Status: Acute Assessment and Plan: CT demonstrated segmental colonic wall thickening, inflammatory change, and possible extraluminal gas at the hepatic flexure. This could possibly represent diverticulitis with microperforation, phlegmon, or early abscess associated with the gallbladder process or cholecystic colonic fistula development. Physical exam benign. Abdomen largely nontender. No complaints from patient. Cholangiogram via cholecystostomy tube ordered. However, there is no radiologist available to perform the scan until Sunday 12/10. We will plan to follow up with results. If no fistula is appreciated, it can be presumed that the inflammation seen on CT is a consequence of having the pigtail catheter in the hematoma. (2) Intra-abdominal hematoma: Status: Acute Assessment and Plan: Increased organization and decrease overall size of the hematoma. Abdominal exam is largely benign, with no tenderness, guarding, or distention noted. See plan above. (3) History of jejunostomy tube placement: Status: Chronic (4) Cholelithiasis and cholecystitis with obstruction: Qualifiers: Cholelithiasis location: gallbladder Cholecystitis acuity: acute and chronic Qualified Code(s): K80.13 - Calculus of gallbladder with acute and chronic cholecystitis with obstruction Code(s): K80.19 - Calculus of gallbladder with other cholecystitis with obstruction Status: Acute Assessment and Plan: Cholecystostomy tube in place. Plan Discussed patient's case and plan of care with Dr. Ortiz. HPI Data of Consult Date/Time: 12/06/24 14:23 Requesting Physician: Fernando Martinez MD Primary Care Provider: [place] Consult Narrative Reason for consult: Abscess on CT 12/05/2024 Narrative: Tip Calvo is a 69 year old male with past medical history of rhabdomyolysis, encephalopathy, C diff, and ALEJANDRO, as well as history of alcohol abuse who we have been asked to see in surgical consultation after CT on 12/05/2024 revealed abscess. General surgery team was initially consulted for placement of feeding tube after failed attempt of PEG tube placement on 11/02/2024. Patient underwent surgery on 11/07/2024 without any complications. Jejunostomy tube has been working well since this time. Patient continued to have worsening leukocytosis and was found to have cholecystitis, prompting placement of percutaneous cholecystostomy tube on 11/15/2024. On 11/20/24 patient was found to have a right mid to upper abdominal fluid collection measuring up to 3.5 cm, concerning for abscess, which was percutaneously drained with radiology. Once drained, it appeared to be an intra-abdominal hematoma, likely related to some bleeding following cholecystostomy tube placement. Pigtail catheter removed on and general surgery signed off. In 12/04/2024 patient's WBC count jumped to 11.0 and simultaneously had a spike in his temperature to 100.2. CT of the abdomen and pelvis was ordered and demonstrated loss of the fat plane between the gallbladder and a portion of the colon with surrounding inflammatory changes and wall thickening. Several adjacent gas bubbles appearing extraluminal. CT also demonstrated increased organization and decreased overall size the right abdominal abscess/hematoma. Vital signs currently stable, with normal white blood cell count. Patient having regular bowel movements. [facility] Past Medical History Medical History Metabolic encephalopathy Alcohol abuse Acute encephalopathy Cancer Gout Surgical History Surgical History History of Billroth I operation Distal gastric resection and Billroth 1 gastroduodenostomy placed 25 years ago for bleeding ulcers. Social History Social History Smoking packs per day: 0.3 Smoking cigarettes per day: 6.0 Smoking status: Former smoker Additional smoking assessment comments: unknown when quit Spiritual care concerns: No Meds Home Medications and Allergies Home Medications ?Medication ?Instructions ?Recorded ?Confirmed ?Type allopurinol 100 mg tablet 100 mg PO DAILY 10/18/24 10/18/24 History amlodipine 10 mg tablet 10 mg PO DAILY 10/18/24 10/18/24 History aspirin 81 mg tablet,delayed 81 mg PO DAILY 10/18/24 10/18/24 History release carvedilol 12.5 mg tablet 12.5 mg PO BID 10/18/24 10/18/24 History rosuvastatin 10 mg tablet 10 mg PO DAILY 10/18/24 10/18/24 History Allergies Allergy/AdvReac Type Severity Reaction Status Date / Time lisinopril Allergy Severe angioedema Verified 11/01/24 15:38 fenofibrate Allergy Intermediate hives Verified 11/01/24 15:38 Penicillins Allergy hives Verified 11/01/24 15:38 Vital Signs Vital Signs - 24 hr 12/05/24 21:40 12/05/24 22:00 12/06/24 06:00 Temperature 97.8 F 97.6 F Pulse Rate 88 81 Respiratory Rate 18 18 Blood Pressure 111/73 116/71 Pulse Oximetry 100 99 Oxygen Delivery Room Air Exam 2 Const: General: comfortable and no acute distress Eyes: General: appearance normal, both eyes and all related structures Neck: Neck: supple Resp: Effort & Inspection: normal respiratory effort Cardio: Rate: regular rate GI: Inspection: non-distended GI Palp: Yes Soft to palpation and No Tenderness to palpation present (GI) Other: Cholecystostomy to draining scant amount of pale blood tinged bile. Jejunostomy tube in place and functioning properly. Midline abdominal incisional scar present and healing well. Skin: General skin exam: normal color and no rashes or lesions noted Extrem: General: normal to inspection Psych: Affect: normal affect Results Labs 12/06/24 04:57 12/06/24 04:57 Labs: Short CBC 12/06/24 Range/Units 04:57 WBC 8.4 (4.5-10.0) K/mm3 Hgb 7.6 L (14.0-18.0) g/dL Hct 23.6 L (42.0-52.0) % Plt Count 317 (150-375) k/mm3 [facility] 12/06/24 04:57 Sodium 135 L Potassium 4.2 Chloride 103 Carbon Dioxide 22 BUN 17 Creatinine 0.63 L Glucose 106 Calcium 9.0
[2024-12-06 22:00] VITALS: BP 138/73; PULSE 86; RESP 18; TEMP 36.9; O2SAT 100
[2024-12-07 05:08] LABS: Hematocrit 23.2 % (42.0-52.0); Hemoglobin 7.2 g/dL (14.0-18.0); Immature Granulocyte Percent A 0.3 % (0-0.5); Lymphocytes Absolute Auto 2.57 K/mm3 (0.9-3.2); Mean Corpuscular HGB Conc 31.0 g/dl (32-36); Mean Corpuscular Hemoglobin 28.2 pg (26-34); Mean Corpuscular Volume 91.0 fl (80-100); Nucleated Red Blood Cells Absolute Auto 0.000 K/mm3 (0.0-0.012); Nucleated Red Blood Cells Perc 0.0 % (0.0-0.2); Platelet Count Result 296 k/mm3 (150-375); Red Blood Count 2.55 M/mm3 (4.6-6.20); White Blood Count 7.8 K/mm3 (4.5-10.0)
[2024-12-07 05:26] LABS: Alanine Aminotransferase 64 U/L (6-50); Albumin Level 3.2 g/dL (3.5-5.1); Alkaline Phosphatase 192 U/L (38-126); Anion Gap 10 mmol/L (4-12); Aspartate Amino Transferase 56 U/L (17-59); Bilirubin,Total 0.7 mg/dL (0.2-1.3); Blood Urea Nitrogen 17 mg/dL (9-20); Calcium 9.3 mg/dL (8.4-10.2); Carbon Dioxide 23 mmol/L (22-30); Chloride 104 mmol/L (98-107); Estimated CRCL calculation 78 ml/min; Estimated Glomerular Filt Rate > 60; Glucose 117 mg/dL (65-110); Potassium 4.2 mmol/L (3.4-5.0); Sodium 137 mmol/L (137-145); Total Protein 7.9 g/dL (6.3-8.2)
[2024-12-07 06:00] VITALS: BP 120/72; PULSE 88; RESP 18; TEMP 37.1; O2SAT 100
--- NOTE | 2024-12-07 08:44 | PCSTNOTE ---
12/[address] services too lethargic this morning.
[2024-12-07] MEDS: ROSUVASTATIN 10 MG TABLET FEED TUBE (09:51)
[2024-12-07] MEDS: ENOXAPARIN 40 MG/0.4 ML SYRINGE SUB-Q (09:51)
[2024-12-07] MEDS: FOLIC ACID 1 MG TABLET FEED TUBE (09:51)
[2024-12-07] MEDS: ASPIRIN 81 MG CHEWABLE TABLET FEED TUBE (09:51)
[2024-12-07] MEDS: FAMOTIDINE 20 MG TABLET FEED TUBE ×2 (09:51→22:05)
[2024-12-07] MEDS: THIAMINE HCL 100 MG TABLET FEED TUBE (09:51)
[2024-12-07] MEDS: SACCHAROMYCES BOULARDII 250 MG CAPSULE FEED TUBE (09:51)
[2024-12-07] MEDS: COLLAGENASE OINT 30 GM TUBE 1 APPLIC TOPICAL ×2 (09:51→22:06)
--- NOTE | 2024-12-07 10:15 | P.PNGS_ITS ---
Progress Note: A&P Assessment and Plan (1) Abnormal CT of the abdomen: Code(s): R93.5 - Abnormal findings on diagnostic imaging of other abdominal regions, including retroperitoneum Status: Acute Assessment and Plan: Abdominal exam benign. No radiologist available to perform cholangiogram until Sunday 12/10. Will monitor for any changes during the interim and follow up with results. If no fistula is appreciated, it can be presumed that the inflammation seen on CT is a consequence of having the pigtail catheter in the hematoma. (2) Intra-abdominal hematoma: Status: Acute Assessment and Plan: Increased organization and decrease overall size of the hematoma. Abdominal exam is largely benign, with no tenderness, guarding, or distention noted. See plan above. (3) History of jejunostomy tube placement: Status: Chronic (4) Cholelithiasis and cholecystitis with obstruction: Qualifiers: Cholelithiasis location: gallbladder Cholecystitis acuity: acute and chronic Qualified Code(s): K80.13 - Calculus of gallbladder with acute and chronic cholecystitis with obstruction Code(s): K80.19 - Calculus of gallbladder with other cholecystitis with obstruction Status: Acute Assessment and Plan: Cholecystostomy tube in place. Plan Discussed patient's case and plan of care with Dr. Ortiz. Subjective Subjective Date/Time Seen: 12/07/24 10:15 Patient reports: no new complaints Interval history: Patient is doing well today. Very pleasant upon visit. Vital signs stable. No acute events overnight. Admits to possibly having some mild diffuse abdominal tenderness, but smiling and laughing during interview. Having regular bowel movements. WBC has remained normal since spike on 12/04. Exam GI: Inspection: non-distended GI Palp: Yes Soft to palpation, No Firmness to palpation present (GI), No Tenderness to palpation present (GI) and No Guarding due to palpation present (GI) Other: Cholecystostomy to draining scant amount of pale blood tinged bile. Jejunostomy tube in place and functioning properly. Midline abdominal incisional scar present and healing well. Objective Data Vital Signs Vital Signs: Vital Signs - 24 hr 12/06/24 14:00 12/06/24 22:00 12/06/24 22:06 Temperature 98.5 F 98.4 F Pulse Rate 90 86 Respiratory Rate 18 18 Blood Pressure 134/71 138/73 Pulse Oximetry 100 100 Oxygen Delivery Room Air 12/07/24 06:00 Temperature 98.8 F Pulse Rate 88 Respiratory Rate 18 Blood Pressure 120/72 Pulse Oximetry 100 Oxygen Delivery Intake/Output Intake/Output: Intake & Output 12/04/24 12/05/24 12/06/24 12/07/24 23:59 23:59 23:59 23:59 Intake Total 3832 1720 1678 1899 Output Total 600 1680 810 630 Balance 3232 40 868 1269 Meds/Results Medications: Active Medications Generic Name Dose Route Start Last Admin Trade Name Freq PRN Reason Stop Dose Admin Acetaminophen 650 mg 11/13/24 21:07 12/03/24 21:13 Acetaminophen Elixir 325 Mg/10.15 Ml Udc FEED TUBE 650 mg Q6H PRN Administration Pain Allopurinol 100 mg 11/15/24 09:00 12/07/24 09:51 Allopurinol 100 Mg Tablet FEED TUBE 100 mg DAILY JHONY Administration Alteplase, Recombinant 2 mg 11/20/24 13:51 11/25/24 22:36 Alteplase 2 Mg Vial (Cathflo) IV PUSH 2 mg ONCE PRN Administration Line Occlusion Amlodipine Besylate 5 mg 11/22/24 09:00 11/29/24 10:35 Amlodipine Besylate 5 Mg Tablet FEED TUBE Not Given DAILY JHONY Aspirin 81 mg 11/04/24 08:00 12/07/24 09:51 Aspirin 81 Mg Chewable Tablet FEED TUBE 01/02/25 23:59 81 mg DAILY@0800 JHONY Administration Carvedilol 6.25 mg 11/22/24 09:00 11/29/24 10:35 Carvedilol 6.25 Mg Tablet FEED TUBE Not Given Q12HR JHONY Collagenase 1 applic 11/13/24 09:00 12/07/24 09:51 Collagenase Oint 30 Gm Tube TOPICAL 1 applic Q12HR JHONY Administration Dextrose 12.5 gm 10/17/24 21:26 10/30/24 05:55 Dextrose 50% 25 Gm/50 Ml Syringe IV PUSH 12.5 gm PRN PRN Administration Hypoglycemia Protocol Enoxaparin Sodium 40 mg 11/02/24 09:00 12/07/24 09:51 Enoxaparin 40 Mg/0.4 Ml Syringe SUB-Q 40 mg DAILY JHONY Administration Famotidine 20 mg 11/24/24 09:00 12/07/24 09:51 Famotidine 20 Mg Tablet FEED TUBE 20 mg Q12HR JHONY Administration Folic Acid 1 mg 10/24/24 09:00 12/07/24 09:51 Folic Acid 1 Mg Tablet FEED TUBE 1 mg QAM JHONY Administration Glucagon 1 mg 10/17/24 21:26 Glucagon For Inj 1 Mg Vial IM PRN PRN Hypoglycemia Protocol Glucose 15 gm 11/13/24 21:07 Glucose Oral Gel 15 Gm Of Glucse In 37.5 Gm Tube FEED TUBE PRN PRN Hypoglycemia Protocol Dextrose 1,000 mls @ 100 mls/hr 10/17/24 21:26 Dextrose 5% 1,000 Ml IVPB PRN PRN Hypoglycemia Protocol Miscellaneous Information 1 each 12/08/24 00:01 Please Renew Sodium Flush Per [employer] Procedure, It Will Discontinue If Not Renewed XX 01/07/25 00:00 CLARIFY JHONY Rosuvastatin Calcium 10 mg 11/04/24 09:00 12/07/24 09:51 Rosuvastatin 10 Mg Tablet FEED TUBE 10 mg DAILY JHONY Administration Saccharomyces Boulardii 250 mg 11/14/24 09:00 12/07/24 09:51 Saccharomyces Boulardii 250 Mg Capsule FEED TUBE 250 mg DAILY JHONY Administration Sodium Chloride 10 ml 11/08/24 08:15 Central Line Flush IV PUSH PRN PRN with TPN bag changes Thiamine HCl 100 mg 10/24/24 09:00 12/07/24 09:51 Thiamine Hcl 100 Mg Tablet FEED TUBE 100 mg QAM JHONY Administration Radiology Results: ITS Impressions Face CT 10/19/24 09:39 IMPRESSION: 1. Extensive sinus disease with near complete opacification of the right maxillary sinus and dependently layering fluid in the bilateral sphenoid sinuses. Correlate clinically for acute sinusitis. 2. Dental and periodontal disease with periapical lucency surrounding the posterior most remaining right maxillary molar. Renal Ultrasound 10/19/24 09:48 IMPRESSION: No hydronephrosis or renal calculi. No parenchymal findings to suggest the presence of medical renal disease. Simple cysts within the right kidney, for which no further follow-up is needed. Brain MRI 10/24/24 14:22 IMPRESSION: 1. Age-related changes the brain. No acute intracranial process. 2. Prominent sinus disease with fluid nearly filling the right maxillary sinus and layering dependently in the bilateral sphenoid sinuses. Correlate clinically for acute sinusitis. Lumbar Puncture Fluoroscopy 10/31/24 17:34 IMPRESSION: 1. Successful fluoro-guided lumbar puncture with mildly elevated opening pressu re of 23 cm water. Modified Barium Swallow 11/06/24 10:05 IMPRESSION: Nondiagnostic study as all contents either leaked or were actively expelled from the mouth. No swallows were able to be evaluated. Please correlate with speech pathologist findings and specific feeding recommendations. Abdomen X-Ray 11/08/24 07:55 Impression: NG tube in satisfactory position. Probable small bowel obstruction. Chest/Abdomen/Pelvis CT 11/08/24 09:59 IMPRESSION: CHEST: 1. Right basilar atelectasis versus pneumonia with pleural effusion. 2. No other acute cardiopulmonary pathology. ABDOMEN/PELVIS: 1. Free air is seen anteriorly around the liver with minimal fluid. 2. Significant ascites in the pelvis. Drainage tube is seen in the left side of the pelvis. 3. Cholelithiasis with thickened wall of the gallbladder. Evaluation for cholecystitis advised. 4. Slightly dilated small bowel loops in the left upper abdomen which may indicate ileus follow-up advised. 5. Right renal cysts. Upper GI Series 11/09/24 13:49 IMPRESSION: 1. Left lower quadrant jejunostomy tube in expected position with injected contrast opacifying the normal-appearing jejunum with no extraluminal leakage of contrast. Head CT 11/14/24 05:17 Impression: No intracranial hemorrhage, mass, or acute infarct. Atrophy and chronic white matter changes, as above. Abdomen Ultrasound 11/14/24 15:13 IMPRESSION: Highly suggestive cholecystitis with cholelithiasis and gallbladder sludge. Clinical correlation advised. Minimal ascites. Minimal right pleural effusion. Cholecystostomy 11/15/24 16:04 IMPRESSION: 1. Successful ultrasound-guided cholecystostomy tube placement. 2. 13 mL bile was sent for aerobic, anaerobic, and fungal cultures. 3. The catheter will be managed by Dr. Ortiz. A catheter cholangiogram may be performed not less than 48 hours after tube placement if clinically indicated to assess cystic duct patency. If cholecystectomy is not eventually performed and the infectious episode has resolved, the tube may be removed over a guidewire, p referably not less than 3 weeks after placement to allow time for a mature catheter tract to form to prevent bile leakage and peritonitis. Catheter Placement CT 11/20/24 17:00 IMPRESSION: Technically successful CT-guided 10 Mexican drainage catheter placement within a (likely)perioperative infected hematoma, as detailed above. Specimen was sent for the culture evaluation. The catheter will need to be forwarded flushed (towards the patient and towards the drainage catheter) twice daily with 10 cc of normal saline. ADDENDUM: 11/22/24 1113 IMPRESSION: Technically successful CT-guided 10 [place] drainage catheter placement within a (likely)perioperative infected hematoma, as detailed above. Of note, perioperative includes periprocedural. In no way, is this a reference to any of the procedures/surgeries that this patient has undergone. Given his prolonged hospital course, this rim-enhancing fluid collection could be from any of a number of causes, and was not mentioned in any way to refer to the percutaneous jejunostomy, which (once again) is in excellent position. In addition, the percutaneous cholecystostomy tube is not transhepatic, but enters the gallbladder directly (on imaging). Chest X-Ray 12/04/24 16:22 IMPRESSION: No acute cardiopulmonary pathology. Abdomen/Pelvis CT 12/05/24 19:32 IMPRESSION: Trace right pleural effusion. Right upper extremity PICC terminates in the inferior right atrium, consider retraction. Segmental colonic wall thickening, inflammatory change, and possible extraluminal gas at the hepatic flexure, may represent diverticulitis with microperforation, phlegmon or early abscess associated with the gallbladder process, or cholecystocolonic fistula development. Increased organization and decreased overall size of the right abdominal abscess/hematoma. Labs Labs: Laboratory Results - last 24 hr 12/06/24 12/07/24 23:32 04:35 WBC 7.8 RBC 2.55 L Hgb 7.2 L Hct 23.2 L MCV 91.0 MCH 28.2 MCHC 31.0 L RDW 16.2 H Plt Count 296 MPV 10.3 Immature Gran % (Auto) 0.3 Neut % (Auto) 45.6 Lymph % (Auto) 32.9 Yell % (Auto) 15.0 H Eos % (Auto) 6.1 H Baso % (Auto) 0.1 L Lymph # (Auto) 2.57 Yell # (Auto) 1.2 H Eos # (Auto) 0.5 H Baso # (Auto) 0.0 Abs Immat Gran (auto) 0.02 Absolute Neuts (auto) 3.6 Absolute Nucleated RBC 0.000 Nucleated RBC % 0.0 Sodium 137 Potassium 4.2 Chloride 104 Carbon Dioxide 23 Anion Gap 10 BUN 17 Creatinine 0.69 L Estim Creat Clear Calc 78 Estimated GFR > 60 Glucose 117 H POC Capillary Glucose 114 H Calcium 9.3 Total Bilirubin 0.7 AST 56 ALT 64 H Alkaline Phosphatase 192 H Total Protein 7.9 Albumin 3.2 L
--- NOTE | 2024-12-07 10:48 | P.PNIM_ITS ---
Progress Note: A&P Assessment and Plan (1) Shock: Code(s): R57.9 - Shock, unspecified Status: Acute (2) Cholelithiasis and cholecystitis with obstruction: Qualifiers: Cholelithiasis location: gallbladder Cholecystitis acuity: acute and chronic Qualified Code(s): K80.13 - Calculus of gallbladder with acute and chronic cholecystitis with obstruction Code(s): K80.19 - Calculus of gallbladder with other cholecystitis with obstruction Status: Acute Plan (1) Shock: Code(s): R57.9 - Shock, unspecified Status: Acute Assessment and Plan: Patient initially presented with septic shock Patient has developed new hypotension 11/08/2024. Suspect aspiration pneumonia versus UTI as patient has had Michelle for more than 2 weeks., or persistent C diff infection Vancomycin 11/14 to 11/19 Continue meropenem (11/08) Day 7 since possible source control but repeat CT showing persistent 8.7cm loculated fluid collection right abdomen. General surgery following and feels this is a hematoma and not infected. (2) Intra-abdominal abscess: Code(s): K65.1 - Peritoneal abscess Status: Ruled-out Assessment and Plan: CT 11/19 showing a rim enhancing fluid collection within the right mid to upper abdomen measuring 8.5 cm IR placed a drain 11/20 and felt to be an infected hematoma Abd Abscess Cultures 11/20 Negative Vancomycin 11/14 to 11/19. Meropenem started 11/08 and Day [address] 11/26 showing persistent 8.7cm loculated fluid collection right abdomen. Gen Surgery following and feel this was not infected hematoma. Stop abx. Ct 12/05 Segmental colonic wall thickening, inflammatory change, and possible extraluminal gas at the hepatic flexure, may represent diverticulitis with microperforation, phlegmon or early abscess associated with the gallbladder process, or cholecystocolonic fistula development. reconsulted surgery team. Plan for cholangiogram next week. (3) Cholelithiasis and cholecystitis with obstruction: Qualifiers: Cholelithiasis location: gallbladder Cholecystitis acuity: acute and chronic Qualified Code(s): K80.13 - Calculus of gallbladder with acute and chronic cholecystitis with obstruction Code(s): K80.19 - Calculus of gallbladder with other cholecystitis with obstruction Status: Acute Assessment and Plan: As above. Patient with worsening leukocytosis up to 28K with hypotension. Meropenem and vancomycin added. Ultrasound with cholecystitis now status post cholecystostomy tube placement 11/15/2024. Cholecystostomy tube will need to be irrigated as ordered. Plan for tube to remain in place on discharge. (4) Metabolic encephalopathy: Code(s): G93.41 - Metabolic encephalopathy Status: Acute Assessment and Plan: Patient has had Altered mental status since admission which is multifactorial Patient was evaluated by Neurology and suspected to have metabolic encephalopathy. -CT brain on presented was negative for intracranial abnormalities. Repeat CT scan 11/08 also unremarkable -MRI cannot be performed as patient was in the [employer] and may have sharpnel exposure according to his daughter -10/19: Repeat CT brain did not show any acute intracranial hemorrhage or suspicious mass effect, inflammatory sinus disease. -10/19: CT facial bones showed extensive sinus disease with near complete opacification of the right maxillary sinus and dependently layering fluid in the bilateral sphenoid sinuses. Dental and periodontal disease with periapical lucency surrounding the posterior most remaining right maxillary molar His ammonia level was normal Lumbar puncture 10/31/2024 with mildly elevated opening pressure of 23 cm water and high protein. 6 RBC/1 WBC with 100% lymphocytes. HSV II PCR negative. WNV ne gative. Mental status improving since drain placed. Continue to monitor. Increase activity as tolerated. (5) Anemia: Qualifiers: Anemia type: unspecified type Qualified Code(s): D64.9 - Anemia, unspecified Code(s): D64.9 - Anemia, unspecified Status: Chronic Assessment and Plan: He had EGD on 11/01 which showed gastritis and previous gastric surgery Hemoglobin dropped to 5.2 which could be partially dilutional versus GI loss 11/09 Transfuse 2 units PRBC Continue protonix Hgb low but stable in the 7-8 range. Monitor hemoglobin (6) C. difficile diarrhea: Code(s): A04.72 - Enterocolitis due to Clostridium difficile, not specified as recurrent Status: Acute Assessment and Plan: CT abdomen pelvis reviewed Diarrhea improved. IV Flagyl stopped 11/09 Dificid completed on 11/18. Fecal containment system stopped 11/23. Documented stool output noted Monitor stool output. Resume treatment if diarrhea recurs. (7) Acute kidney injury: Code(s): N17.9 - Acute kidney failure, unspecified Status: Acute Assessment and Plan: ICU: Patient presented with Acute kidney injury which improved with IV fluids RESOLVED (8) Thrombocytopenia: Code(s): D69.6 - Thrombocytopenia, unspecified Status: Acute Assessment and Plan: Thrombocytopenia related to sepsis; this has improved High platelet count at this time suggest hemoconcentration RESOLVED (9) Hyperkalemia: Code(s): E87.5 - Hyperkalemia Status: Acute Assessment and Plan: Hyperkalemia with ALEJANDRO Calcium gluconate, insulin and D50, bicarb received Lokelma in ICU IV fluid bolus RESOLVED (10) Acute respiratory failure: Code(s): J96.00 - Acute respiratory failure, unspecified whether with hypoxia or hypercapnia Status: Acute Assessment and Plan: RESOLVED fever 12/04/24 unclear etiology possible aspiration follow culture results. monitor off of ABx CT 12/05:Segmental colonic wall thickening, inflammatory change, and possible extraluminal gas at the hepatic flexure, may represent diverticulitis with microperforation, phlegmon or early abscess associated with the gallbladder process, or cholecystocolonic fistula development. will follow surgery team recs. Plan for cholangiogram next week. Subjective Date/time seen: 12/07/24 10:48 Interval history: patient was seen and examined at bedside. he is feeling fine, denies any pain, had fever yesterday, will follow B/C results. 12/06/24 Patient was seen and ermined at bedside. has some visual hallucination this morning. repeat Ct [facility] showed Segmental colonic wall thickening, inflammatory change, and possible extraluminal gas at the hepatic flexure, may represent diverticulitis with microperforation, phlegmon or early abscess associated with the gallbladder process, or cholecystocolonic fistula development. will follow surgery team recs. 12/07/24 Patient was seen and examiend at bedside. he is resting comfortably. denies any pain. Plan for cholangiogram next week. Review of Systems Review of Systems: All systems reviewed & are unremarkable except as noted in HPI and below (Subjective) ROS unobtainable: Yes unobtainable due to endotracheal tube, unobtainable due to medical condition and unobtainable due to mental status Neurologic: Reports confusion Psychiatric: Psychiatric: Reports confusion Exam Narrative: GENERAL: Ill-appearing, protein mild nutrition, in no acute distress. Well- nourished. - EYES: EOMI. Anicteric. - HENT: Moist mucous membranes. - LUNGS: Clear to auscultation bilateral ly, no wheezing, rhonchi, or rales. - CARDIOVASCULAR: Regular rate and rhyth m. No murmur. No JVD. - ABDOMEN: Soft, non-tender and non-dist ended. No palpable masses. - EXTREMITIES: No edema. Peripheral puls es 2+. Non-tender. - NEUROLOGIC: No focal neurological defi cits. CN II-XII grossly intact. - PSYCHIATRIC: Awake, Alert and oriented to place only. Appropriate mood and affect. - SKIN: No rashes or lesions. Warm. - LYMPH: No cervical lymphadenopathy. Const: General: comfortable, no acute distress, alert, awake, confusion, ill appearing, patient obtunded (intubated. Just taken off sedation.) and thin Nutritional Appearance: thin Orientation/consciousness: confusion and patient obtunded (intubated. Just taken off sedation.) Other: , frail, ill-appearing, elderly HENMT: Face/Nose/Sinus: Normal nares present Mouth: Yes moist mucous membranes and Yes dry mucous membranes Other: ngt in place Eyes: General: appearance normal, both eyes and all related structures Sclera: sclerae normal Pupils: Equal, round and reactive pupils present EOM: EOMs intact bilaterally Neck: Neck: supple Resp: Effort & Inspection: normal respiratory effort Auscultation: clear to auscultation bilaterally Cardio: Rate: regular rate Rhythm: regular rhythm Other: S1-S2 present without murmur, rub, ectopy GI: Inspection: non-distended, incision (Dry and healing well, no erythema or drainage), scaphoid, scar (Large upper abdominal midline scar as before) and other (mildly distended) Auscultation: normal bowel sounds and Hypoactive bowel sounds present Other: Jejunostomy tube clamped and dressing dry and intact, no erythema around the jejunostomy tube : General: Yes bladder normal to palpation Urinary Catheter: Urinary Catheter: patent and draining Skin: General skin exam: normal color and no rashes or lesions noted Other: Superficial bilateral buttock friction maceration noted with three small (<2-3 cm) open wounds that are superficial with a healthy appearing pink wound bed, no necrotic tissue or purulent drainage. Neuro: General: confusion Cranial nerves: Yes Equal, round and reactive pupils present Other: Garbled speech, difficult to understand. A&O x1. Moving all extremities, however + 1 in all extremities. Left foot weaker than right. Infectious Disease Physician symmetric. Right facial droop verses droop due to swelling. Extrem: General: normal to inspection and no edema Psych: Other: Poor insight and judgment at present, pleasant. Objective Data Vital Signs Vital Signs: Vital Signs - 24 hr 12/06/24 14:00 12/06/24 22:00 12/06/24 22:06 Temperature 98.5 F 98.4 F Pulse Rate 90 86 Respiratory Rate 18 18 Blood Pressure 134/71 138/73 Pulse Oximetry 100 100 Oxygen Delivery Room Air 12/07/24 06:00 Temperature 98.8 F Pulse Rate 88 Respiratory Rate 18 Blood Pressure 120/72 Pulse Oximetry 100 Oxygen Delivery Intake/Output Intake/Output: Intake & Output 12/04/24 12/05/24 12/06/24 12/07/24 23:59 23:59 23:59 23:59 Intake Total 3832 1720 1678 1899 Output Total 600 1680 810 630 Balance 3232 40 868 1269 Meds/Results Medications: Active Medications Generic Name Dose Route Start Last Admin Trade Name Freq PRN Reason Stop Dose Admin Acetaminophen 650 mg 11/13/24 21:07 12/03/24 21:13 Acetaminophen Elixir 325 Mg/10.15 Ml Udc FEED TUBE 650 mg Q6H PRN Administration Pain Allopurinol 100 mg 11/15/24 09:00 12/07/24 09:51 Allopurinol 100 Mg Tablet FEED TUBE 100 mg DAILY [facility] Administration Alteplase, Recombinant 2 mg 11/20/24 13:51 11/25/24 22:36 Alteplase 2 Mg Vial (Cathflo) IV PUSH 2 mg ONCE PRN Administration Line Occlusion Amlodipine Besylate 5 mg 11/22/24 09:00 11/29/24 10:35 Amlodipine Besylate 5 Mg Tablet FEED TUBE Not Given DAILY [facility] Aspirin 81 mg 11/04/24 08:00 12/07/24 09:51 Aspirin 81 Mg Chewable Tablet FEED TUBE 01/02/25 23:59 81 mg DAILY@0800 [facility] Administration Carvedilol 6.25 mg 11/22/24 09:00 11/29/24 10:35 Carvedilol 6.25 Mg Tablet FEED TUBE Not Given Q12HR [facility] Collagenase 1 applic 11/13/24 09:00 12/07/24 09:51 Collagenase Oint 30 Gm Tube TOPICAL 1 applic Q12HR JHONY Administration Dextrose 12.5 gm 10/17/24 21:26 10/30/24 05:55 Dextrose 50% 25 Gm/50 Ml Syringe IV PUSH 12.5 gm PRN PRN Administration Hypoglycemia Protocol Enoxaparin Sodium 40 mg 11/02/24 09:00 12/07/24 09:51 Enoxaparin 40 Mg/0.4 Ml Syringe SUB-Q 40 mg DAILY [facility] Administration Famotidine 20 mg 11/24/24 09:00 12/07/24 09:51 Famotidine 20 Mg Tablet FEED TUBE 20 mg Q12HR JHONY Administration Folic Acid 1 mg 10/24/24 09:00 12/07/24 09:51 Folic Acid 1 Mg Tablet FEED TUBE 1 mg QAM [facility]HONY Administration Glucagon 1 mg 10/17/24 21:26 Glucagon For Inj 1 Mg Vial IM PRN PRN Hypoglycemia Protocol Glucose 15 gm 11/13/24 21:07 Glucose Oral Gel 15 Gm Of Glucse In 37.5 Gm Tube FEED TUBE PRN PRN Hypoglycemia Protocol Dextrose 1,000 mls @ 100 mls/hr 10/17/24 21:26 Dextrose 5% 1,000 Ml IVPB PRN PRN Hypoglycemia Protocol Rosuvastatin Calcium 10 mg 11/04/24 09:00 12/07/24 09:51 Rosuvastatin 10 Mg Tablet FEED TUBE 10 mg DAILY [facility] Administration Saccharomyces Boulardii 250 mg 11/14/24 09:00 12/07/24 09:51 Saccharomyces Boulardii 250 Mg Capsule FEED TUBE 250 mg DAILY [facility] Administration Thiamine HCl 100 mg 10/24/24 09:00 12/07/24 09:51 Thiamine Hcl 100 Mg Tablet FEED TUBE 100 mg QAM JHONY Administration Radiology Results: ITS Impressions Face CT 10/19/24 09:39 IMPRESSION: 1. Extensive sinus disease with near complete opacification of the right maxillary sinus and dependently layering fluid in the bilateral sphenoid sinuses. Correlate clinically for acute sinusitis. 2. Dental and periodontal disease with periapical lucency surrounding the post erior most remaining right maxillary molar. Renal Ultrasound 10/19/24 09:48 IMPRESSION: No hydronephrosis or renal calculi. No parenchymal findings to suggest the presence of medical renal disease. Simple cysts within the right kidney, for which no further follow-up is needed. Brain MRI 10/24/24 14:22 IMPRESSION: 1. Age-related changes the brain. No acute intracranial process. 2. Prominent sinus disease with fluid nearly filling the right maxillary sinus and layering dependently in the bilateral sphenoid sinuses. Correlate clinically for acute sinusitis. Lumbar Puncture Fluoroscopy 10/31/24 17:34 IMPRESSION: 1. Successful fluoro-guided lumbar puncture with mildly elevated opening pressure of 23 cm water. Modified Barium Swallow 11/06/24 10:05 IMPRESSION: Nondiagnostic study as all contents either leaked or were actively expelled from the mouth. No swallows were able to be evaluated. Please correlate with speech pathologist findings and specific feeding recommendations. Abdomen X-Ray 11/08/24 07:55 Impression: NG tube in satisfactory position. Probable small bowel obstruction. Chest/Abdomen/Pelvis CT 11/08/24 09:59 IMPRESSION: CHEST: 1. Right basilar atelectasis versus pneumonia with pleural effusion. 2. No other acute cardiopulmonary pathology. ABDOMEN/PELVIS: 1. Free air is seen anteriorly around the liver with minimal fluid. 2. Significant ascites in the pelvis. Drainage tube is seen in the left side of the pelvis. 3. Cholelithiasis with thickened wall of the gallbladder. Evaluation for cholecystitis advised. 4. Slightly dilated small bowel loops in the left upper abdomen which may indicate ileus follow-up advised. 5. Right renal cysts. Upper GI Series 11/09/24 13:49 IMPRESSION: 1. Left lower quadrant jejunostomy tube in expected position with injected contrast opacifying the normal-appearing jejunum with no extraluminal leakage of contrast. Head CT 11/14/24 05:17 Impression: No intracranial hemorrhage, mass, or acute infarct. Atrophy and chronic white matter changes, as above. Abdomen Ultrasound 11/14/24 15:13 IMPRESSION: Highly suggestive cholecystitis with cholelithiasis and gallbladder sludge. Clinical correlation advised. Minimal ascites. Minimal right pleural effusion. Cholecystostomy 11/15/24 16:04 IMPRESSION: 1. Successful ultrasound-guided cholecystostomy tube placement. 2. 13 mL bile was sent for aerobic, anaerobic, and fungal cultures. 3. The catheter will be managed by Dr. Ortiz. A catheter cholangiogram may be performed not less than 48 hours after tube placement if clinically indicated to assess cystic duct patency. If cholecystectomy is not eventually performed and the infectious episode has resolved, the tube may be removed over a guidewire, preferably not less than 3 weeks after placement to allow time for a mature catheter tract to form to prevent bile leakage and peritonitis. Catheter Placement CT 11/20/24 17:00 IMPRESSION: Technically successful CT-guided 10 [place] drainage catheter placement within a (likely)perioperative infected hematoma, as detailed above. Specimen was sent for the culture evaluation. The catheter will need to be forwarded flushed (towards the patient and towards the drainage catheter) twice daily with 10 cc of normal saline. ADDENDUM: 11/22/24 1113 IMPRESSION: Technically successful CT-guided 10 [place]vor[place] drainage catheter placement within a (likely)perioperative infected hematoma, as detailed above. Of note, perioperative includes periprocedural. In no way, is this a reference to any of the procedures/surgeries that this patient has undergone. Given his prolonged hospital course, this rim-enhancing fluid collection could be from any of a number of causes, and was not mentioned in any way to refer to the percutaneous jejunostomy, which (once again) is in excellent position. In addition, the percutaneous cholecystostomy tube is not transhepatic, but enters the gallbladder directly (on imaging). Chest X-Ray 12/04/24 16:22 IMPRESSION: No acute cardiopulmonary pathology. Abdomen/Pelvis CT 12/05/24 19:32 IMPRESSION: Trace right pleural effusion. Right upper extremity PICC terminates in the inferior right atrium, consider retraction. Segmental colonic wall thickening, inflammatory change, and possible extraluminal gas at the hepatic flexure, may represent diverticulitis with microperforation, phlegmon or early abscess associated with the gallbladder process, or cholecystocolonic fistula development. Increased organization and decreased overall size of the right abdominal absces s/hematoma. Labs Labs: Laboratory Results - last 24 hr 12/06/24 12/07/24 23:32 04:35 WBC 7.8 RBC 2.55 L Hgb 7.2 L Hct 23.2 L MCV 91.0 MCH 28.2 MCHC 31.0 L RDW 16.2 H Plt Count 296 MPV 10.3 Immature Gran % (Auto) 0.3 Neut % (Auto) 45.6 Lymph % (Auto) 32.9 [place] % (Auto) 15.0 H Eos % (Auto) 6.1 H Baso % (Auto) 0.1 L Lymph # (Auto) 2.57 [place] # (Auto) 1.2 H Eos # (Auto) 0.5 H Baso # (Auto) 0.0 Abs Immat Gran (auto) 0.02 Absolute Neuts (auto) 3.6 Absolute Nucleated RBC 0.000 Nucleated RBC % 0.0 Sodium 137 Potassium 4.2 Chloride 104 Carbon Dioxide 23 Anion Gap 10 BUN 17 Creatinine 0.69 L Estim Creat Clear Calc 78 Estimated GFR > 60 Glucose 117 H POC Capillary Glucose 114 H Calcium 9.3 Total Bilirubin 0.7 AST 56 ALT 64 H Alkaline Phosphatase 192 H Total Protein 7.9 Albumin 3.2 L Quality VTE Prophylaxis VTE prophylaxis: mechanical ordered
--- NOTE | 2024-12-07 11:00 | PCNFU ---
Nutrition Follow-Up Complete: Inadequate Oral Intake as related to AMS as evidenced by NPO. Goal: Meet estimated nutritional needs Patient will continue current goal. No new goal. Pt current nutrition is Jevity 1.5 at 55 ml/hr. Last recorded weight is 65.3 kg, admit weight 66 kg. Bowel Motility: Last reported BM 12/07 Labs Reviewed: Glu 117, Cr 0.69, PO4 5.3, Alb 3.2 Meds Noted: Folic Acid, Thiamine, Protonix, Lovenox, Florastor. Skin: WNL Additional Notes: Patient remains on tube feedings of Vital AF 1.2 at 55 ml/hr. Tolerating per nursing. Water flush 100 ml q 4 hours. Total Nutrition: 1815 kcal/84 gm protein/920 ml water. Agree with diet orders. will monitor weight, labs, skin, diet orders, meds every Tuesday and Tuesday.
[2024-12-07 14:00] VITALS: BP 123/72; PULSE 87; RESP 14; TEMP 37; O2SAT 100
[2024-12-07 20:00] VITALS: PULSE 87; RESP 14; O2SAT 100
[2024-12-07 22:00] VITALS: BP 126/74; PULSE 86; RESP 18; TEMP 36.8; O2SAT 100
[2024-12-08 05:05] LABS: Hematocrit 24.3 % (42.0-52.0); Hemoglobin 7.8 g/dL (14.0-18.0); Immature Granulocyte Percent A 0.2 % (0-0.5); Lymphocytes Absolute Auto 3.22 K/mm3 (0.9-3.2); Mean Corpuscular HGB Conc 32.1 g/dl (32-36); Mean Corpuscular Hemoglobin 29.2 pg (26-34); Mean Corpuscular Volume 91.0 fl (80-100); Nucleated Red Blood Cells Absolute Auto 0.000 K/mm3 (0.0-0.012); Nucleated Red Blood Cells Perc 0.0 % (0.0-0.2); Platelet Count Result 328 k/mm3 (150-375); Red Blood Count 2.67 M/mm3 (4.6-6.20); White Blood Count 9.8 K/mm3 (4.5-10.0)
[2024-12-08 05:25] LABS: Alanine Aminotransferase 61 U/L (6-50); Albumin Level 3.5 g/dL (3.5-5.1); Alkaline Phosphatase 203 U/L (38-126); Anion Gap 11 mmol/L (4-12); Aspartate Amino Transferase 53 U/L (17-59); Bilirubin,Total 1.0 mg/dL (0.2-1.3); Blood Urea Nitrogen 18 mg/dL (9-20); Calcium 9.6 mg/dL (8.4-10.2); Carbon Dioxide 23 mmol/L (22-30); Chloride 104 mmol/L (98-107); Estimated CRCL calculation 71 ml/min; Estimated Glomerular Filt Rate > 60; Glucose 102 mg/dL (65-110); Potassium 3.9 mmol/L (3.4-5.0); Sodium 138 mmol/L (137-145); Total Protein 8.5 g/dL (6.3-8.2)
[2024-12-08 06:00] VITALS: BP 120/73; PULSE 65; RESP 18; TEMP 36.9; O2SAT 95
[2024-12-08] MEDS: ENOXAPARIN 40 MG/0.4 ML SYRINGE SUB-Q (08:48)
[2024-12-08] MEDS: THIAMINE HCL 100 MG TABLET FEED TUBE (08:48)
[2024-12-08] MEDS: SACCHAROMYCES BOULARDII 250 MG CAPSULE FEED TUBE (08:48)
[2024-12-08] MEDS: FOLIC ACID 1 MG TABLET FEED TUBE (08:48)
[2024-12-08] MEDS: ASPIRIN 81 MG CHEWABLE TABLET FEED TUBE (08:48)
[2024-12-08] MEDS: FAMOTIDINE 20 MG TABLET FEED TUBE ×2 (08:48→20:12)
[2024-12-08] MEDS: COLLAGENASE OINT 30 GM TUBE 1 APPLIC TOPICAL ×2 (08:48→20:12)
[2024-12-08] MEDS: ROSUVASTATIN 10 MG TABLET FEED TUBE (08:48)
--- NOTE | 2024-12-08 12:43 | PM.IMPN ---
Progress Note: A&P Assessment and Plan (1) Shock: Code(s): R57.9 - Shock, unspecified Status: Acute (2) Cholelithiasis and cholecystitis with obstruction: Qualifiers: Cholelithiasis location: gallbladder Cholecystitis acuity: acute and chronic Qualified Code(s): K80.13 - Calculus of gallbladder with acute and chronic cholecystitis with obstruction Code(s): K80.19 - Calculus of gallbladder with other cholecystitis with obstruction Status: Acute Plan (1) Shock: Code(s): R57.9 - Shock, unspecified Status: Acute Assessment and Plan: Patient initially presented with septic shock Patient has developed new hypotension 11/08/2024. Suspect aspiration pneumonia versus UTI as patient has had Michelle for more than 2 weeks., or persistent C diff infection Vancomycin 11/14 to 11/19 Continue meropenem (11/08) Day 7 since possible source control but repeat CT showing persistent 8.7cm loculated fluid collection right abdomen. General surgery following and feels this is a hematoma and not infected. (2) Intra-abdominal abscess: Code(s): K65.1 - Peritoneal abscess Status: Ruled-out Assessment and Plan: CT 11/19 showing a rim enhancing fluid collection within the right mid to upper abdomen measuring 8.5 cm IR placed a drain 11/20 and felt to be an infected hematoma Abd Abscess Cultures 11/20 Negative Vancomycin 11/14 to 11/19. Meropenem started 11/08 and Day [address] 11/26 showing persistent 8.7cm loculated fluid collection right abdomen. Gen Surgery following and feel this was not infected hematoma. Stop abx. Ct 12/05 Segmental colonic wall thickening, inflammatory change, and possible extraluminal gas at the hepatic flexure, may represent diverticulitis with microperforation, phlegmon or early abscess associated with the gallbladder process, or cholecystocolonic fistula development. reconsulted surgery team. Plan for cholangiogram next week. (3) Cholelithiasis and cholecystitis with obstruction: Qualifiers: Cholelithiasis location: gallbladder Cholecystitis acuity: acute and chronic Qualified Code(s): K80.13 - Calculus of gallbladder with acute and chronic cholecystitis with obstruction Code(s): K80.19 - Calculus of gallbladder with other cholecystitis with obstruction Status: Acute Assessment and Plan: As above. Patient with worsening leukocytosis up to 28K with hypotension. Meropenem and vancomycin added. Ultrasound with cholecystitis now status post cholecystostomy tube placement 11/15/2024. Cholecystostomy tube will need to be irrigated as ordered. Plan for tube to remain in place on discharge. (4) Metabolic encephalopathy: Code(s): G93.41 - Metabolic encephalopathy Status: Acute Assessment and Plan: Patient has had Altered mental status since admission which is multifactorial Patient was evaluated by Neurology and suspected to have metabolic encephalopathy. -CT brain on presented was negative for intracranial abnormalities. Repeat CT scan 11/08 also unremarkable -MRI cannot be performed as patient was in the [place] and may have sharpnel exposure according to his daughter -10/19: Repeat CT brain did not show any acute intracranial hemorrhage or suspicious mass effect, inflammatory sinus disease. -10/19: CT facial bones showed extensive sinus disease with near complete opacification of the right maxillary sinus and dependently layering fluid in the bilateral sphenoid sinuses. Dental and periodontal disease with periapical lucency surrounding the posterior most remaining right maxillary molar His ammonia level was normal Lumbar puncture 10/31/2024 with mildly elevated opening pressure of 23 cm water and high protein. 6 RBC/1 WBC with 100% lymphocytes. HSV II PCR negative. WNV negative. Mental status improving since drain placed. Continue to monitor. Increase activity as tolerated. (5) Anemia: Qualifiers: Anemia type: unspecified type Qualified Code(s): D64.9 - Anemia, unspecified Code(s): D64.9 - Anemia, unspecified Status: Chronic Assessment and Plan: He had EGD on 11/01 which showed gastritis and previous gastric surgery Hemoglobin dropped to 5.2 which could be partially dilutional versus GI loss 11/09 Transfuse 2 units PRBC Continue protonix Hgb low but stable in the 7-8 range. Monitor hemoglobin (6) C. difficile diarrhea: Code(s): A04.72 - Enterocolitis due to Clostridium difficile, not specified as recurrent Status: Acute Assessment and Plan: CT abdomen pelvis reviewed Diarrhea improved. IV Flagyl stopped 11/09 Dificid completed on 11/18. Fecal containment system stopped 11/23. Documented stool output noted Monitor stool output. Resume treatment if diarrhea recurs. (7) Acute kidney injury: Code(s): N17.9 - Acute kidney failure, unspecified Status: Acute Assessment and Plan: ICU: Patient presented with Acute kidney injury which improved with IV fluids RESOLVED (8) Thrombocytopenia: Code(s): D69.6 - Thrombocytopenia, unspecified Status: Acute Assessment and Plan: Thrombocytopenia related to sepsis; this has improved High platelet count at this time suggest hemoconcentration RESOLVED (9) Hyperkalemia: Code(s): E87.5 - Hyperkalemia Status: Acute Assessment and Plan: Hyperkalemia with ALEJANDRO Calcium gluconate, insulin and D50, bicarb received Lokelma in ICU IV fluid bolus RESOLVED (10) Acute respiratory failure: Code(s): J96.00 - Acute respiratory failure, unspecified whether with hypoxia or hypercapnia Status: Acute Assessment and Plan: RESOLVED fever 12/04/24 unclear etiology possible aspiration follow culture results. monitor off of ABx CT 12/05:Segmental colonic wall thickening, inflammatory change, and possible extraluminal gas at the hepatic flexure, may represent diverticulitis with microperforation, phlegmon or early abscess associated with the gallbladder process, or cholecystocolonic fistula development. will follow surgery team recs. Plan for cholangiogram next week. Subjective Date/time seen: 12/08/24 12:43 Interval history: patient was seen and examined at bedside. he is feeling fine, denies any pain, had fever yesterday, will follow B/C results. 12/06/24 Patient was seen and ermined at bedside. has some visual hallucination this morning. repeat Ct [facility] showed Segmental colonic wall thickening, inflammatory change, and possible extraluminal gas at the hepatic flexure, may represent diverticulitis with microperforation, phlegmon or early abscess associated with the gallbladder process, or cholecystocolonic fistula development. will follow surgery team recs. 12/08/24 Patient was seen and examined at bedside. he is resting comfortably. denies any pain. Plan for cholangiogram next week. Review of Systems Review of Systems: All systems reviewed & are unremarkable except as noted in HPI and below (Subjective) ROS unobtainable: Yes unobtainable due to endotracheal tube, unobtainable due to medical condition and unobtainable due to mental status Neurologic: Reports confusion Psychiatric: Psychiatric: Reports confusion Exam Narrative: GENERAL: Ill-appearing, protein mild nutrition, in no acute distress. Well-nourished. - EYES: EOMI. Anicteric. - HENT: Moist mucous membranes. - LUNGS: Clear to auscultation bilaterally, no wheezing, rhonchi, or rales. - CARDIOVASCULAR: Regular rate and rhythm. No murmur. No JVD. - ABDOMEN: Soft, non-tender and non-distended. No palpable masses. - EXTREMITIES: No edema. Peripheral pulses 2+. Non-tender. - NEUROLOGIC: No focal neurological deficits. CN II-XII grossly intact. - PSYCHIATRIC: Awake, Alert and oriented to place only. Appropriate mood and affect. - SKIN: No rashes or lesions. Warm. - LYMPH: No cervical lymphadenopathy. Const: General: comfortable, no acute distress, alert, awake, confusion, ill appearing, patient obtunded (intubated. Just taken off sedation.) and thin Nutritional Appearance: thin Orientation/consciousness: confusion and patient obtunded (intubated. Just taken off sedation.) Other: , frail, ill-appearing, elderly HENMT: Face/Nose/Sinus: Normal nares present Mouth: Yes moist mucous membranes and Yes dry mucous membranes Other: ngt in place Eyes: General: appearance normal, both eyes and all related structures Sclera: sclerae normal Pupils: Equal, round and reactive pupils present EOM: EOMs intact bilaterally Neck: Neck: supple Resp: Effort & Inspection: normal respiratory effort Auscultation: clear to auscultation bilaterally Cardio: Rate: regular rate Rhythm: regular rhythm Other: S1-S2 present without murmur, rub, ectopy GI: Inspection: non-distended, incision (Dry and healing well, no erythema or drainage), scaphoid, scar (Large upper abdominal midline scar as before) and other (mildly distended) Auscultation: normal bowel sounds and Hypoactive bowel sounds present Other: Jejunostomy tube clamped and dressing dry and intact, no erythema around the jejunostomy tube : General: Yes bladder normal to palpation Urinary Catheter: Urinary Catheter: patent and draining Skin: General skin exam: normal color and no rashes or lesions noted Other: Superficial bilateral buttock friction maceration noted with three small (<2-3 cm) open wounds that are superficial with a healthy appearing pink wound bed, no necrotic tissue or purulent drainage. Neuro: General: confusion Cranial nerves: Yes Equal, round and reactive pupils present Other: Garbled speech, difficult to understand. A&O x1. Moving all extremities, however + 1 in all extremities. Left foot weaker than right. Coverage Specialist Rn symmetric. Right facial droop verses droop due to swelling. Extrem: General: normal to inspection and no edema Psych: Other: Poor insight and judgment at present, pleasant. Objective Data Vital Signs Vital Signs: Vital Signs - 24 hr 12/07/24 14:00 12/07/24 20:00 12/07/24 22:00 Temperature 98.6 F 98.2 F Pulse Rate 87 87 86 Respiratory Rate 14 14 18 Blood Pressure 123/72 126/74 Pulse Oximetry 100 100 100 Oxygen Delivery Room Air Fraction of Inspired Oxygen 28 12/08/24 06:00 Temperature 98.4 F Pulse Rate 65 Respiratory Rate 18 Blood Pressure 120/73 Pulse Oximetry 95 Oxygen Delivery Fraction of Inspired Oxygen Intake/Output Intake/Output: Intake & Output 12/05/24 12/06/24 12/07/24 12/08/24 23:59 23:59 23:59 23:59 Intake Total 1720 1678 2591 Output Total 8465 133 0649 750 Balance 40 868 1511 -750 Meds/Results Medications: Active Medications Generic Name Dose Route Start Last Admin Trade Name Freq PRN Reason Stop Dose Admin Acetaminophen 650 mg 11/13/24 21:07 12/03/24 21:13 Acetaminophen Elixir 325 Mg/10.15 Ml Udc FEED TUBE 650 mg Q6H PRN Administration Pain Allopurinol 100 mg 11/15/24 09:00 12/08/24 08:48 Allopurinol 100 Mg Tablet FEED TUBE 100 mg DAILY [facility] Administration Alteplase, Recombinant 2 mg 11/20/24 13:51 11/25/24 22:36 Alteplase 2 Mg Vial (Cathflo) IV PUSH 2 mg ONCE PRN Administration Line Occlusion Amlodipine Besylate 5 mg 11/22/24 09:00 11/29/24 10:35 Amlodipine Besylate 5 Mg Tablet FEED TUBE Not Given DAILY [facility] Aspirin 81 mg 11/04/24 08:00 12/08/24 08:48 Aspirin 81 Mg Chewable Tablet FEED TUBE 01/02/25 23:59 81 mg DAILY@0800 [facility] Administration Carvedilol 6.25 mg 11/22/24 09:00 11/29/24 10:35 Carvedilol 6.25 Mg Tablet FEED TUBE Not Given Q12HR [facility] Collagenase 1 applic 11/13/24 09:00 12/08/24 08:48 Collagenase Oint 30 Gm Tube TOPICAL 1 applic Q12HR [facility] Administration Dextrose 12.5 gm 10/17/24 21:26 10/30/24 05:55 Dextrose 50% 25 Gm/50 Ml Syringe IV PUSH 12.5 gm PRN PRN Administration Hypoglycemia Protocol Enoxaparin Sodium 40 mg 11/02/24 09:00 12/08/24 08:48 Enoxaparin 40 Mg/0.4 Ml Syringe SUB-Q 40 mg DAILY [facility] Administration Famotidine 20 mg 11/24/24 09:00 12/08/24 08:48 Famotidine 20 Mg Tablet FEED TUBE 20 mg Q12HR [facility] Administration Folic Acid 1 mg 10/24/24 09:00 12/08/24 08:48 Folic Acid 1 Mg Tablet FEED TUBE 1 mg QAM [facility] Administration Glucagon 1 mg 10/17/24 21:26 Glucagon For Inj 1 Mg Vial IM PRN PRN Hypoglycemia Protocol Glucose 15 gm 11/13/24 21:07 Glucose Oral Gel 15 Gm Of Glucse In 37.5 Gm Tube FEED TUBE PRN PRN Hypoglycemia Protocol Dextrose 1,000 mls @ 100 mls/hr 10/17/24 21:26 Dextrose 5% 1,000 Ml IVPB PRN PRN Hypoglycemia Protocol Rosuvastatin Calcium 10 mg 11/04/24 09:00 12/08/24 08:48 Rosuvastatin 10 Mg Tablet FEED TUBE 10 mg DAILY [facility] Administration Saccharomyces Boulardii 250 mg 11/14/24 09:00 12/08/24 08:48 Saccharomyces Boulardii 250 Mg Capsule FEED TUBE 250 mg DAILY [facility] Administration Thiamine HCl 100 mg 10/24/24 09:00 12/08/24 08:48 Thiamine Hcl 100 Mg Tablet FEED TUBE 100 mg QAM [facility] Administration Radiology Results: ITS Impressions Face CT 10/19/24 09:39 IMPRESSION: 1. Extensive sinus disease with near complete opacification of the right maxillary sinus and dependently layering fluid in the bilateral sphenoid sinuses. Correlate clinically for acute sinusitis. 2. Dental and periodontal disease with periapical lucency surrounding the posterior most remaining right maxillary molar. Renal Ultrasound 10/19/24 09:48 IMPRESSION: No hydronephrosis or renal calculi. No parenchymal findings to suggest the presence of medical renal disease. Simple cysts within the right kidney, for which no further follow-up is needed. Brain MRI 10/24/24 14:22 IMPRESSION: 1. Age-related changes the brain. No acute intracranial process. 2. Prominent sinus disease with fluid nearly filling the right maxillary sinus and layering dependently in the bilateral sphenoid sinuses. Correlate clinically for acute sinusitis. Lumbar Puncture Fluoroscopy 10/31/24 17:34 IMPRESSION: 1. Successful fluoro-guided lumbar puncture with mildly elevated opening pressure of 23 cm water. Modified Barium Swallow 11/06/24 10:05 IMPRESSION: Nondiagnostic study as all contents either leaked or were actively expelled from the mouth. No swallows were able to be evaluated. Please correlate with speech pathologist findings and specific feeding recommendations. Abdomen X-Ray 11/08/24 07:55 Impression: NG tube in satisfactory position. Probable small bowel obstruction. Chest/Abdomen/Pelvis CT 11/08/24 09:59 IMPRESSION: CHEST: 1. Right basilar atelectasis versus pneumonia with pleural effusion. 2. No other acute cardiopulmonary pathology. ABDOMEN/PELVIS: 1. Free air is seen anteriorly around the liver with minimal fluid. 2. Significant ascites in the pelvis. Drainage tube is seen in the left side of the pelvis. 3. Cholelithiasis with thickened wall of the gallbladder. Evaluation for cholecystitis advised. 4. Slightly dilated small bowel loops in the left upper abdomen which may indicate ileus follow-up advised. 5. Right renal cysts. Upper GI Series 11/09/24 13:49 IMPRESSION: 1. Left lower quadrant jejunostomy tube in expected position with injected contrast opacifying the normal-appearing jejunum with no extraluminal leakage of contrast. Head CT 11/14/24 05:17 Impression: No intracranial hemorrhage, mass, or acute infarct. Atrophy and chronic white matter changes, as above. Abdomen Ultrasound 11/14/24 15:13 IMPRESSION: Highly suggestive cholecystitis with cholelithiasis and gallbladder sludge. Clinical correlation advised. Minimal ascites. Minimal right pleural effusion. Cholecystostomy 11/15/24 16:04 IMPRESSION: 1. Successful ultrasound-guided cholecystostomy tube placement. 2. 13 mL bile was sent for aerobic, anaerobic, and fungal cultures. 3. The catheter will be managed by Dr. Ortiz. A catheter cholangiogram may be performed not less than 48 hours after tube placement if clinically indicated to assess cystic duct patency. If cholecystectomy is not eventually performed and the infectious episode has resolved, the tube may be removed over a guidewire, preferably not less than 3 weeks after placement to allow time for a mature catheter tract to form to prevent bile leakage and peritonitis. Catheter Placement CT 11/20/24 17:00 IMPRESSION: Technically successful CT-guided 10 [place] drainage catheter placement within a (likely)perioperative infected hematoma, as detailed above. Specimen was sent for the culture evaluation. The catheter will need to be forwarded flushed (towards the patient and towards the drainage catheter) twice daily with 10 cc of normal saline. ADDENDUM: 11/22/24 1113 IMPRESSION: Technically successful CT-guided 10 [place] drainage catheter placement within a (likely)perioperative infected hematoma, as detailed above. Of note, perioperative includes periprocedural. In no way, is this a reference to any of the procedures/surgeries that this patient has undergone. Given his prolonged hospital course, this rim-enhancing fluid collection could be from any of a number of causes, and was not mentioned in any way to refer to the percutaneous jejunostomy, which (once again) is in excellent position. In addition, the percutaneous cholecystostomy tube is not transhepatic, but enters the gallbladder directly (on imaging). Chest X-Ray 12/04/24 16:22 IMPRESSION: No acute cardiopulmonary pathology. Abdomen/Pelvis CT 12/05/24 19:32 IMPRESSION: Trace right pleural effusion. Right upper extremity PICC terminates in the inferior right atrium, consider retraction. Segmental colonic wall thickening, inflammatory change, and possible extraluminal gas at the hepatic flexure, may represent diverticulitis with microperforation, phlegmon or early abscess associated with the gallbladder process, or cholecystocolonic fistula development. Increased organization and decreased overall size of the right abdominal abscess/hematoma. Labs Labs: Laboratory Results - last 24 hr 12/08/24 04:23 WBC 9.8 RBC 2.67 L Hgb 7.8 L Hct 24.3 L MCV 91.0 MCH 29.2 MCHC 32.1 RDW 16.2 H Plt Count 328 MPV 10.3 Immature Gran % (Auto) 0.2 Neut % (Auto) 48.0 Lymph % (Auto) 32.8 [place] % (Auto) 13.5 H Eos % (Auto) 5.3 H Baso % (Auto) 0.2 Lymph # (Auto) 3.22 H [place] # (Auto) 1.3 H Eos # (Auto) 0.5 H Baso # (Auto) 0.0 Abs Immat Gran (auto) 0.02 Absolute Neuts (auto) 4.7 Absolute Nucleated RBC 0.000 Nucleated RBC % 0.0 Sodium 138 Potassium 3.9 Chloride 104 Carbon Dioxide 23 Anion Gap 11 BUN 18 Creatinine 0.78 Estim Creat Clear Calc 71 Estimated GFR > 60 Glucose 102 Calcium 9.6 Total Bilirubin 1.0 AST 53 ALT 61 H Alkaline Phosphatase 203 H Total Protein 8.5 H Albumin 3.5 Quality VTE Prophylaxis VTE prophylaxis: mechanical ordered
[2024-12-08 14:00] VITALS: BP 125/78; PULSE 98; RESP 14; TEMP 36.8; O2SAT 100
[2024-12-08 19:41] VITALS: BP 130/71; PULSE 91; RESP 16; TEMP 36.7; O2SAT 99
[2024-12-08 20:00] VITALS: PULSE 91; RESP 16; O2SAT 99
[2024-12-09 05:03] LABS: Hematocrit 24.0 % (42.0-52.0); Hemoglobin 7.7 g/dL (14.0-18.0); Immature Granulocyte Percent A 0.4 % (0-0.5); Lymphocytes Absolute Auto 2.99 K/mm3 (0.9-3.2); Mean Corpuscular HGB Conc 32.1 g/dl (32-36); Mean Corpuscular Hemoglobin 29.4 pg (26-34); Mean Corpuscular Volume 91.6 fl (80-100); Nucleated Red Blood Cells Absolute Auto 0.000 K/mm3 (0.0-0.012); Nucleated Red Blood Cells Perc 0.0 % (0.0-0.2); Platelet Count Result 334 k/mm3 (150-375); Red Blood Count 2.62 M/mm3 (4.6-6.20); White Blood Count 8.2 K/mm3 (4.5-10.0)
[2024-12-09 05:27] LABS: Alanine Aminotransferase 49 U/L (6-50); Albumin Level 3.4 g/dL (3.5-5.1); Alkaline Phosphatase 179 U/L (38-126); Anion Gap 10 mmol/L (4-12); Aspartate Amino Transferase 59 U/L (17-59); Bilirubin,Total 0.8 mg/dL (0.2-1.3); Blood Urea Nitrogen 18 mg/dL (9-20); Calcium 9.3 mg/dL (8.4-10.2); Carbon Dioxide 21 mmol/L (22-30); Chloride 107 mmol/L (98-107); Estimated CRCL calculation 77 ml/min; Estimated Glomerular Filt Rate > 60; Glucose 120 mg/dL (65-110); Potassium 3.9 mmol/L (3.4-5.0); Sodium 138 mmol/L (137-145); Total Protein 8.3 g/dL (6.3-8.2)
[2024-12-09 05:43] VITALS: BP 113/81; PULSE 80; RESP 16; TEMP 37.2; O2SAT 99
[2024-12-09] MEDS: ENOXAPARIN 40 MG/0.4 ML SYRINGE SUB-Q (08:42)
[2024-12-09] MEDS: SACCHAROMYCES BOULARDII 250 MG CAPSULE FEED TUBE (08:43)
[2024-12-09] MEDS: FOLIC ACID 1 MG TABLET FEED TUBE (08:43)
[2024-12-09] MEDS: FAMOTIDINE 20 MG TABLET FEED TUBE ×2 (08:43→22:11)
[2024-12-09] MEDS: THIAMINE HCL 100 MG TABLET FEED TUBE (08:43)
[2024-12-09] MEDS: ROSUVASTATIN 10 MG TABLET FEED TUBE (08:43)
[2024-12-09] MEDS: ASPIRIN 81 MG CHEWABLE TABLET FEED TUBE (08:44)
[2024-12-09] MEDS: COLLAGENASE OINT 30 GM TUBE 1 APPLIC TOPICAL ×2 (08:44→22:11)
--- NOTE | 2024-12-09 09:45 | PM.IMPN ---
Progress Note: A&P Assessment and Plan (1) Shock: Code(s): R57.9 - Shock, unspecified Status: Acute (2) Cholelithiasis and cholecystitis with obstruction: Qualifiers: Cholelithiasis location: gallbladder Cholecystitis acuity: acute and chronic Qualified Code(s): K80.13 - Calculus of gallbladder with acute and chronic cholecystitis with obstruction Code(s): K80.19 - Calculus of gallbladder with other cholecystitis with obstruction Status: Acute Plan (1) Shock: Code(s): R57.9 - Shock, unspecified Status: Acute Assessment and Plan: Patient initially presented with septic shock Patient has developed new hypotension 11/08/2024. Suspect aspiration pneumonia versus UTI as patient has had Michelle for more than 2 weeks., or persistent C diff infection Vancomycin 11/14 to 11/19 Continue meropenem (11/08) Day 7 since possible source control but repeat CT showing persistent 8.7cm loculated fluid collection right abdomen. General surgery following and feels this is a hematoma and not infected. (2) Intra-abdominal abscess: Code(s): K65.1 - Peritoneal abscess Status: Ruled-out Assessment and Plan: CT 11/19 showing a rim enhancing fluid collection within the right mid to upper abdomen measuring 8.5 cm IR placed a drain 11/20 and felt to be an infected hematoma Abd Abscess Cultures 11/20 Negative Vancomycin 11/14 to 11/19. Meropenem started 11/08 and Day [address] 11/26 showing persistent 8.7cm loculated fluid collection right abdomen. Gen Surgery following and feel this was not infected hematoma. Stop abx. Ct 12/05 Segmental colonic wall thickening, inflammatory change, and possible extraluminal gas at the hepatic flexure, may represent diverticulitis with microperforation, phlegmon or early abscess associated with the gallbladder process, or cholecystocolonic fistula development. reconsulted surgery team. Plan for cholangiogram next week. (3) Cholelithiasis and cholecystitis with obstruction: Qualifiers: Cholelithiasis location: gallbladder Cholecystitis acuity: acute and chronic Qualified Code(s): K80.13 - Calculus of gallbladder with acute and chronic cholecystitis with obstruction Code(s): K80.19 - Calculus of gallbladder with other cholecystitis with obstruction Status: Acute Assessment and Plan: As above. Patient with worsening leukocytosis up to 28K with hypotension. Meropenem and vancomycin added. Ultrasound with cholecystitis now status post cholecystostomy tube placement 11/15/2024. Cholecystostomy tube will need to be irrigated as ordered. Plan for tube to remain in place on discharge. 12/09 leucocytosis improving (4) Metabolic encephalopathy: Code(s): G93.41 - Metabolic encephalopathy Status: Acute Assessment and Plan: Patient has had Altered mental status since admission which is multifactorial Patient was evaluated by Neurology and suspected to have metabolic encephalopathy. -CT brain on presented was negative for intracranial abnormalities. Repeat CT scan 11/08 also unremarkable -MRI cannot be performed as patient was in the [place] and may have sharpnel exposure according to his daughter -10/19: Repeat CT brain did not show any acute intracranial hemorrhage or suspicious mass effect, inflammatory sinus disease. -10/19: CT facial bones showed extensive sinus disease with near complete opacification of the right maxillary sinus and dependently layering fluid in the bilateral sphenoid sinuses. Dental and periodontal disease with periapical lucency surrounding the posterior most remaining right maxillary molar His ammonia level was normal Lumbar puncture 10/31/2024 with mildly elevated opening pressure of 23 cm water and high protein. 6 RBC/1 WBC with 100% lymphocytes. HSV II PCR negative. WNV negative. Mental status improving since drain placed. Continue to monitor. Increase activity as tolerated. (5) Anemia: Qualifiers: Anemia type: unspecified type Qualified Code(s): D64.9 - Anemia, unspecified Code(s): D64.9 - Anemia, unspecified Status: Chronic Assessment and Plan: He had EGD on 11/01 which showed gastritis and previous gastric surgery Hemoglobin dropped to 5.2 which could be partially dilutional versus GI loss 11/09 Transfuse 2 units PRBC Continue protonix Hgb low but stable in the 7-8 range. Monitor hemoglobin (6) C. difficile diarrhea: Code(s): A04.72 - Enterocolitis due to Clostridium difficile, not specified as recurrent Status: Acute Assessment and Plan: CT abdomen pelvis reviewed Diarrhea improved. IV Flagyl stopped 11/09 Dificid completed on 11/18. Fecal containment system stopped 11/23. Documented stool output noted Monitor stool output. Resume treatment if diarrhea recurs. (7) Acute kidney injury: Code(s): N17.9 - Acute kidney failure, unspecified Status: Acute Assessment and Plan: ICU: Patient presented with Acute kidney injury which improved with IV fluids RESOLVED (8) Thrombocytopenia: Code(s): D69.6 - Thrombocytopenia, unspecified Status: Acute Assessment and Plan: Thrombocytopenia related to sepsis; this has improved High platelet count at this time suggest hemoconcentration RESOLVED (9) Hyperkalemia: Code(s): E87.5 - Hyperkalemia Status: Acute Assessment and Plan: Hyperkalemia with ALEJANDRO Calcium gluconate, insulin and D50, bicarb received Lokelma in ICU IV fluid bolus RESOLVED (10) Acute respiratory failure: Code(s): J96.00 - Acute respiratory failure, unspecified whether with hypoxia or hypercapnia Status: Acute Assessment and Plan: RESOLVED fever 12/04/24 unclear etiology possible aspiration follow culture results. monitor off of ABx CT 12/05:Segmental colonic wall thickening, inflammatory change, and possible extraluminal gas at the hepatic flexure, may represent diverticulitis with microperforation, phlegmon or early abscess associated with the gallbladder process, or cholecystocolonic fistula development. will follow surgery team recs. Plan for cholangiogram next week. Subjective Date/time seen: 12/09/24 09:45 Interval history: patient was seen and examined at bedside. he is feeling fine, denies any pain, had fever yesterday, will follow B/C results. 12/06/24 Patient was seen and ermined at bedside. has some visual hallucination this morning. repeat Ct [facility] showed Segmental colonic wall thickening, inflammatory change, and possible extraluminal gas at the hepatic flexure, may represent diverticulitis with microperforation, phlegmon or early abscess associated with the gallbladder process, or cholecystocolonic fistula development. will follow surgery team recs. 12/08/24 Patient was seen and examined at bedside. he is resting comfortably. denies any pain. Plan for cholangiogram next week. 12/09/24 Patient was seen and examined at bedside. he is more alert and oriented today. denies any chest pain, SOB ,abd victor, N/V Review of Systems Review of Systems: All systems reviewed & are unremarkable except as noted in HPI and below (Subjective) ROS unobtainable: Yes unobtainable due to endotracheal tube, unobtainable due to medical condition and unobtainable due to mental status Neurologic: Reports confusion Psychiatric: Psychiatric: Reports confusion Exam Narrative: GENERAL: Ill-appearing, protein mild nutrition, in no acute distress. Well-nourished. - EYES: EOMI. Anicteric. - HENT: Moist mucous membranes. - LUNGS: Clear to auscultation bilaterally, no wheezing, rhonchi, or rales. - CARDIOVASCULAR: Regular rate and rhythm. No murmur. No JVD. - ABDOMEN: Soft, non-tender and non-distended. No palpable masses. - EXTREMITIES: No edema. Peripheral pulses 2+. Non-tender. - NEUROLOGIC: No focal neurological deficits. CN II-XII grossly intact. - PSYCHIATRIC: Awake, Alert and oriented to place only. Appropriate mood and affect. - SKIN: No rashes or lesions. Warm. - LYMPH: No cervical lymphadenopathy. Const: General: comfortable, no acute distress, alert, awake, confusion, ill appearing, patient obtunded (intubated. Just taken off sedation.) and thin Nutritional Appearance: thin Orientation/consciousness: confusion and patient obtunded (intubated. Just taken off sedation.) Other: , frail, ill-appearing, elderly HENMT: Face/Nose/Sinus: Normal nares present Mouth: Yes moist mucous membranes and Yes dry mucous membranes Other: ngt in place Eyes: General: appearance normal, both eyes and all related structures Sclera: sclerae normal Pupils: Equal, round and reactive pupils present EOM: EOMs intact bilaterally Neck: Neck: supple Resp: Effort & Inspection: normal respiratory effort Auscultation: clear to auscultation bilaterally Cardio: Rate: regular rate Rhythm: regular rhythm Other: S1-S2 present without murmur, rub, ectopy GI: Inspection: non-distended, incision (Dry and healing well, no erythema or drainage), scaphoid, scar (Large upper abdominal midline scar as before) and other (mildly distended) Auscultation: normal bowel sounds and Hypoactive bowel sounds present Other: Jejunostomy tube clamped and dressing dry and intact, no erythema around the jejunostomy tube : General: Yes bladder normal to palpation Urinary Catheter: Urinary Catheter: patent and draining Skin: General skin exam: normal color and no rashes or lesions noted Other: Superficial bilateral buttock friction maceration noted with three small (<2-3 cm) open wounds that are superficial with a healthy appearing pink wound bed, no necrotic tissue or purulent drainage. Neuro: General: confusion Cranial nerves: Yes Equal, round and reactive pupils present Other: Garbled speech, difficult to understand. A&O x1. Moving all extremities, however + 1 in all extremities. Left foot weaker than right. [employer] symmetric. Right facial droop verses droop due to swelling. Extrem: General: normal to inspection and no edema Psych: Other: Poor insight and judgment at present, pleasant. Objective Data Vital Signs Vital Signs: Vital Signs - 24 hr 12/08/24 14:00 12/08/24 19:41 12/08/24 20:00 Temperature 98.3 F 98.1 F Pulse Rate 98 91 91 Respiratory Rate 14 16 16 Blood Pressure 125/78 130/71 Pulse Oximetry 100 99 99 Oxygen Delivery Room Air Fraction of Inspired Oxygen 28 12/09/24 05:43 Temperature 98.9 F Pulse Rate 80 Respiratory Rate 16 Blood Pressure 113/81 Pulse Oximetry 99 Oxygen Delivery Fraction of Inspired Oxygen Intake/Output Intake/Output: Intake & Output 12/06/24 12/07/24 12/08/24 12/09/24 23:59 23:59 23:59 23:59 Intake Total 1678 2591 0 0 Output Total 810 1080 1000 450 Balance 868 1511 -1000 -450 Meds/Results Medications: Active Medications Generic Name Dose Route Start Last Admin Trade Name Freq PRN Reason Stop Dose Admin Acetaminophen 650 mg 11/13/24 21:07 12/03/24 21:13 Acetaminophen Elixir 325 Mg/10.15 Ml Udc FEED TUBE 650 mg Q6H PRN Administration Pain Allopurinol 100 mg 11/15/24 09:00 12/09/24 08:43 Allopurinol 100 Mg Tablet FEED TUBE 100 mg DAILY JHONY Administration Alteplase, Recombinant 2 mg 11/20/24 13:51 11/25/24 22:36 Alteplase 2 Mg Vial (Cathflo) IV PUSH 2 mg ONCE PRN Administration Line Occlusion Amlodipine Besylate 5 mg 11/22/24 09:00 11/29/24 10:35 Amlodipine Besylate 5 Mg Tablet FEED TUBE Not Given DAILY [facility] Aspirin 81 mg 11/04/24 08:00 12/09/24 08:44 Aspirin 81 Mg Chewable Tablet FEED TUBE 08/13/25 23:59 81 mg DAILY@0800 JHONY Administration Carvedilol 6.25 mg 11/22/24 09:00 11/29/24 10:35 Carvedilol 6.25 Mg Tablet FEED TUBE Not Given Q12HR JHONY Collagenase 1 applic 11/13/24 09:00 12/09/24 08:44 Collagenase Oint 30 Gm Tube TOPICAL 1 applic Q12HR JHONY Administration Dextrose 12.5 gm 10/17/24 21:26 10/30/24 05:55 Dextrose 50% 25 Gm/50 Ml Syringe IV PUSH 12.5 gm PRN PRN Administration Hypoglycemia Protocol Enoxaparin Sodium 40 mg 11/02/24 09:00 12/09/24 08:42 Enoxaparin 40 Mg/0.4 Ml Syringe SUB-Q 40 mg DAILY JHONY Administration Famotidine 20 mg 11/24/24 09:00 12/09/24 08:43 Famotidine 20 Mg Tablet FEED TUBE 20 mg Q12HR JHONY Administration Folic Acid 1 mg 10/24/24 09:00 12/09/24 08:43 Folic Acid 1 Mg Tablet FEED TUBE 1 mg QAM JHONY Administration Glucagon 1 mg 10/17/24 21:26 Glucagon For Inj 1 Mg Vial IM PRN PRN Hypoglycemia Protocol Glucose 15 gm 11/13/24 21:07 Glucose Oral Gel 15 Gm Of Glucse In 37.5 Gm Tube FEED TUBE PRN PRN Hypoglycemia Protocol Dextrose 1,000 mls @ 100 mls/hr 10/17/24 21:26 Dextrose 5% 1,000 Ml IVPB PRN PRN Hypoglycemia Protocol Rosuvastatin Calcium 10 mg 11/04/24 09:00 12/09/24 08:43 Rosuvastatin 10 Mg Tablet FEED TUBE 10 mg DAILY JHONY Administration Saccharomyces Boulardii 250 mg 11/14/24 09:00 12/09/24 08:43 Saccharomyces Boulardii 250 Mg Capsule FEED TUBE 250 mg DAILY JHONY Administration Thiamine HCl 100 mg 10/24/24 09:00 12/09/24 08:43 Thiamine Hcl 100 Mg Tablet FEED TUBE 100 mg QAM JHONY Administration Radiology Results: ITS Impressions Face CT 10/19/24 09:39 IMPRESSION: 1. Extensive sinus disease with near complete opacification of the right maxillary sinus and dependently layering fluid in the bilateral sphenoid sinuses. Correlate clinically for acute sinusitis. 2. Dental and periodontal disease with periapical lucency surrounding the posterior most remaining right maxillary molar. Renal Ultrasound 10/19/24 09:48 IMPRESSION: No hydronephrosis or renal calculi. No parenchymal findings to suggest the presence of medical renal disease. Simple cysts within the right kidney, for which no further follow-up is needed. Brain MRI 10/24/24 14:22 IMPRESSION: 1. Age-related changes the brain. No acute intracranial process. 2. Prominent sinus disease with fluid nearly filling the right maxillary sinus and layering dependently in the bilateral sphenoid sinuses. Correlate clinically for acute sinusitis. Lumbar Puncture Fluoroscopy 10/31/24 17:34 IMPRESSION: 1. Successful fluoro-guided lumbar puncture with mildly elevated opening pressure of 23 cm water. Modified Barium Swallow 11/06/24 10:05 IMPRESSION: Nondiagnostic study as all contents either leaked or were actively expelled from the mouth. No swallows were able to be evaluated. Please correlate with speech pathologist findings and specific feeding recommendations. Abdomen X-Ray 11/08/24 07:55 Impression: NG tube in satisfactory position. Probable small bowel obstruction. Chest/Abdomen/Pelvis CT 11/08/24 09:59 IMPRESSION: CHEST: 1. Right basilar atelectasis versus pneumonia with pleural effusion. 2. No other acute cardiopulmonary pathology. ABDOMEN/PELVIS: 1. Free air is seen anteriorly around the liver with minimal fluid. 2. Significant ascites in the pelvis. Drainage tube is seen in the left side of the pelvis. 3. Cholelithiasis with thickened wall of the gallbladder. Evaluation for cholecystitis advised. 4. Slightly dilated small bowel loops in the left upper abdomen which may indicate ileus follow-up advised. 5. Right renal cysts. Upper GI Series 11/09/24 13:49 IMPRESSION: 1. Left lower quadrant jejunostomy tube in expected position with injected contrast opacifying the normal-appearing jejunum with no extraluminal leakage of contrast. Head CT 11/14/24 05:17 Impression: No intracranial hemorrhage, mass, or acute infarct. Atrophy and chronic white matter changes, as above. Abdomen Ultrasound 11/14/24 15:13 IMPRESSION: Highly suggestive cholecystitis with cholelithiasis and gallbladder sludge. Clinical correlation advised. Minimal ascites. Minimal right pleural effusion. Cholecystostomy 11/15/24 16:04 IMPRESSION: 1. Successful ultrasound-guided cholecystostomy tube placement. 2. 13 mL bile was sent for aerobic, anaerobic, and fungal cultures. 3. The catheter will be managed by Dr. Ortiz. A catheter cholangiogram may be performed not less than 48 hours after tube placement if clinically indicated to assess cystic duct patency. If cholecystectomy is not eventually performed and the infectious episode has resolved, the tube may be removed over a guidewire, preferably not less than 3 weeks after placement to allow time for a mature catheter tract to form to prevent bile leakage and peritonitis. Catheter Placement CT 11/20/24 17:00 IMPRESSION: Technically successful CT-guided 10 [place] drainage catheter placement within a (likely)perioperative infected hematoma, as detailed above. Specimen was sent for the culture evaluation. The catheter will need to be forwarded flushed (towards the patient and towards the drainage catheter) twice daily with 10 cc of normal saline. ADDENDUM: 11/22/24 1113 IMPRESSION: Technically successful CT-guided 10 [place] drainage catheter placement within a (likely)perioperative infected hematoma, as detailed above. Of note, perioperative includes periprocedural. In no way, is this a reference to any of the procedures/surgeries that this patient has undergone. Given his prolonged hospital course, this rim-enhancing fluid collection could be from any of a number of causes, and was not mentioned in any way to refer to the percutaneous jejunostomy, which (once again) is in excellent position. In addition, the percutaneous cholecystostomy tube is not transhepatic, but enters the gallbladder directly (on imaging). Chest X-Ray 12/04/24 16:22 IMPRESSION: No acute cardiopulmonary pathology. Abdomen/Pelvis CT 12/05/24 19:32 IMPRESSION: Trace right pleural effusion. Right upper extremity PICC terminates in the inferior right atrium, consider retraction. Segmental colonic wall thickening, inflammatory change, and possible extraluminal gas at the hepatic flexure, may represent diverticulitis with microperforation, phlegmon or early abscess associated with the gallbladder process, or cholecystocolonic fistula development. Increased organization and decreased overall size of the right abdominal abscess/hematoma. Labs Labs: Laboratory Results - last 24 hr 12/09/24 04:15 WBC 8.2 RBC 2.62 L Hgb 7.7 L Hct 24.0 L MCV 91.6 MCH 29.4 MCHC 32.1 RDW 16.4 H Plt Count 334 MPV 10.3 Immature Gran % (Auto) 0.4 Neut % (Auto) 44.4 L Lymph % (Auto) 36.3 [place] % (Auto) 12.3 H Eos % (Auto) 6.4 H Baso % (Auto) 0.2 Lymph # (Auto) 2.99 [place] # (Auto) 1.0 H Eos # (Auto) 0.5 H Baso # (Auto) 0.0 Abs Immat Gran (auto) 0.03 Absolute Neuts (auto) 3.7 Absolute Nucleated RBC 0.000 Nucleated RBC % 0.0 Sodium 138 Potassium 3.9 Chloride 107 Carbon Dioxide 21 L Anion Gap 10 BUN 18 Creatinine 0.67 L Estim Creat Clear Calc 77 Estimated GFR > 60 Glucose 120 H Calcium 9.3 Total Bilirubin 0.8 AST 59 ALT 49 Alkaline Phosphatase 179 H Total Protein 8.3 H Albumin 3.4 L Quality VTE Prophylaxis VTE prophylaxis: mechanical ordered
[2024-12-09 12:48] VITALS: BP 134/75; PULSE 89; RESP 14; TEMP 36.7; O2SAT 100
[2024-12-09 19:40] VITALS: BP 124/76; PULSE 89; RESP 18; TEMP 36.7; O2SAT 100
[2024-12-10 03:22] VITALS: BP 107/66; PULSE 82; RESP 18; TEMP 36.7; O2SAT 100
[2024-12-10 05:24] LABS: Hematocrit 23.5 % (42.0-52.0); Hemoglobin 7.3 g/dL (14.0-18.0); Mean Corpuscular HGB Conc 31.1 g/dl (32-36); Mean Corpuscular Hemoglobin 28.7 pg (26-34); Mean Corpuscular Volume 92.5 fl (80-100); Platelet Count Result 326 k/mm3 (150-375); Red Blood Count 2.54 M/mm3 (4.6-6.20); White Blood Count 8.6 K/mm3 (4.5-10.0)
[2024-12-10 05:59] LABS: Alanine Aminotransferase 44 U/L (6-50); Albumin Level 3.4 g/dL (3.5-5.1); Alkaline Phosphatase 160 U/L (38-126); Anion Gap 10 mmol/L (4-12); Aspartate Amino Transferase 44 U/L (17-59); Bilirubin,Total 0.6 mg/dL (0.2-1.3); Blood Urea Nitrogen 20 mg/dL (9-20); Calcium 9.3 mg/dL (8.4-10.2); Carbon Dioxide 22 mmol/L (22-30); Chloride 104 mmol/L (98-107); Estimated CRCL calculation 76 ml/min; Estimated Glomerular Filt Rate > 60; Glucose 116 mg/dL (65-110); Potassium 3.9 mmol/L (3.4-5.0); Sodium 136 mmol/L (137-145); Total Protein 8.3 g/dL (6.3-8.2)
[2024-12-10 08:00] VITALS: PULSE 82; RESP 18; O2SAT 100
[2024-12-10] MEDS: THIAMINE HCL 100 MG TABLET FEED TUBE (09:33)
[2024-12-10] MEDS: ASPIRIN 81 MG CHEWABLE TABLET FEED TUBE (09:33)
[2024-12-10] MEDS: FAMOTIDINE 20 MG TABLET FEED TUBE ×2 (09:33→22:54)
[2024-12-10] MEDS: ROSUVASTATIN 10 MG TABLET FEED TUBE (09:33)
[2024-12-10] MEDS: SACCHAROMYCES BOULARDII 250 MG CAPSULE FEED TUBE (09:33)
[2024-12-10] MEDS: FOLIC ACID 1 MG TABLET FEED TUBE (09:33)
[2024-12-10] MEDS: ENOXAPARIN 40 MG/0.4 ML SYRINGE SUB-Q (09:34)
[2024-12-10] MEDS: COLLAGENASE OINT 30 GM TUBE 1 APPLIC TOPICAL ×2 (09:34→22:54)
[2024-12-10 13:58] VITALS: BP 116/66; PULSE 85; RESP 18; TEMP 36.8; O2SAT 100
--- NOTE | 2024-12-10 14:17 | PM.IMPN ---
Progress Note: A&P Assessment and Plan (1) Shock: Code(s): R57.9 - Shock, unspecified Status: Acute (2) Cholelithiasis and cholecystitis with obstruction: Qualifiers: Cholelithiasis location: gallbladder Cholecystitis acuity: acute and chronic Qualified Code(s): K80.13 - Calculus of gallbladder with acute and chronic cholecystitis with obstruction Code(s): K80.19 - Calculus of gallbladder with other cholecystitis with obstruction Status: Acute Plan (1) Shock: Code(s): R57.9 - Shock, unspecified Status: Acute Assessment and Plan: Patient initially presented with septic shock Patient has developed new hypotension 11/08/2024. Suspect aspiration pneumonia versus UTI as patient has had Michelle for more than 2 weeks., or persistent C diff infection Vancomycin 11/14 to 11/19 Continue meropenem (11/08) Day 7 since possible source control but repeat CT showing persistent 8.7cm loculated fluid collection right abdomen. General surgery following and feels this is a hematoma and not infected. (2) Intra-abdominal abscess: Code(s): K65.1 - Peritoneal abscess Status: Ruled-out Assessment and Plan: CT 11/19 showing a rim enhancing fluid collection within the right mid to upper abdomen measuring 8.5 cm IR placed a drain 11/20 and felt to be an infected hematoma Abd Abscess Cultures 11/20 Negative Vancomycin 11/14 to 11/19. Meropenem started 11/08 and Day [address] 11/26 showing persistent 8.7cm loculated fluid collection right abdomen. Gen Surgery following and feel this was not infected hematoma. Stop abx. Ct 12/05 Segmental colonic wall thickening, inflammatory change, and possible extraluminal gas at the hepatic flexure, may represent diverticulitis with microperforation, phlegmon or early abscess associated with the gallbladder process, or cholecystocolonic fistula development. reconsulted surgery team. Plan for cholangiogram next week. (3) Cholelithiasis and cholecystitis with obstruction: Qualifiers: Cholelithiasis location: gallbladder Cholecystitis acuity: acute and chronic Qualified Code(s): K80.13 - Calculus of gallbladder with acute and chronic cholecystitis with obstruction Code(s): K80.19 - Calculus of gallbladder with other cholecystitis with obstruction Status: Acute Assessment and Plan: As above. Patient with worsening leukocytosis up to 28K with hypotension. Meropenem and vancomycin added. Ultrasound with cholecystitis now status post cholecystostomy tube placement 11/15/2024. Cholecystostomy tube will need to be irrigated as ordered. Plan for tube to remain in place on discharge. 12/09 leucocytosis improving (4) Metabolic encephalopathy: Code(s): G93.41 - Metabolic encephalopathy Status: Acute Assessment and Plan: Patient has had Altered mental status since admission which is multifactorial Patient was evaluated by Neurology and suspected to have metabolic encephalopathy. -CT brain on presented was negative for intracranial abnormalities. Repeat CT scan 11/08 also unremarkable -MRI cannot be performed as patient was in the [place] and may have sharpnel exposure according to his daughter -10/19: Repeat CT brain did not show any acute intracranial hemorrhage or suspicious mass effect, inflammatory sinus disease. -10/19: CT facial bones showed extensive sinus disease with near complete opacification of the right maxillary sinus and dependently layering fluid in the bilateral sphenoid sinuses. Dental and periodontal disease with periapical lucency surrounding the posterior most remaining right maxillary molar His ammonia level was normal Lumbar puncture 10/31/2024 with mildly elevated opening pressure of 23 cm water and high protein. 6 RBC/1 WBC with 100% lymphocytes. HSV II PCR negative. WNV negative. Mental status improving since drain placed. Continue to monitor. Increase activity as tolerated. (5) Anemia: Qualifiers: Anemia type: unspecified type Qualified Code(s): D64.9 - Anemia, unspecified Code(s): D64.9 - Anemia, unspecified Status: Chronic Assessment and Plan: He had EGD on 11/01 which showed gastritis and previous gastric surgery Hemoglobin dropped to 5.2 which could be partially dilutional versus GI loss 11/09 Transfuse 2 units PRBC Continue protonix Hgb low but stable in the 7-8 range. Monitor hemoglobin. today is 7.3 (6) C. difficile diarrhea: Code(s): A04.72 - Enterocolitis due to Clostridium difficile, not specified as recurrent Status: Acute Assessment and Plan: CT abdomen pelvis reviewed Diarrhea improved. IV Flagyl stopped 11/09 Dificid completed on 11/18. Fecal containment system stopped 11/23. Documented stool output noted Monitor stool output. Resume treatment if diarrhea recurs. (7) Acute kidney injury: Code(s): N17.9 - Acute kidney failure, unspecified Status: Acute Assessment and Plan: ICU: Patient presented with Acute kidney injury which improved with IV fluids RESOLVED (8) Thrombocytopenia: Code(s): D69.6 - Thrombocytopenia, unspecified Status: Acute Assessment and Plan: Thrombocytopenia related to sepsis; this has improved High platelet count at this time suggest hemoconcentration RESOLVED (9) Hyperkalemia: Code(s): E87.5 - Hyperkalemia Status: Acute Assessment and Plan: Hyperkalemia with ALEJANDRO Calcium gluconate, insulin and D50, bicarb received Lokelma in ICU IV fluid bolus RESOLVED (10) Acute respiratory failure: Code(s): J96.00 - Acute respiratory failure, unspecified whether with hypoxia or hypercapnia Status: Acute Assessment and Plan: RESOLVED fever 12/04/24 unclear etiology possible aspiration follow culture results. monitor off of ABx CT 12/05:Segmental colonic wall thickening, inflammatory change, and possible extraluminal gas at the hepatic flexure, may represent diverticulitis with microperforation, phlegmon or early abscess associated with the gallbladder process, or cholecystocolonic fistula development. will follow surgery team recs. Plan for cholangiogram next week. cholangiogram 12/10/24 :he appearance of contrast entering a loop of small bowel within the anterior most portion of the right upper quadrant may be artifactual in origin, as the patient was unable to change positions on the fluoroscopy table. Free extravasation may also demonstrate this appearance, in the appropriate clinical setting. Given that small bowel perforation would result in peritonitis and sepsis, and this is not the case in our patient, this appearance is likely artifactual rather than actual bowel perforation. waiting for surgery team recs. Subjective Date/time seen: 12/10/24 14:17 Interval history: patient was seen and examined at bedside. he is feeling fine, denies any pain, had fever yesterday, will follow B/C results. 12/06/24 Patient was seen and ermined at bedside. has some visual hallucination this morning. repeat Ct requested by [facility]. [facility] showed Segmental colonic wall thickening, inflammatory change, and possible extraluminal gas at the hepatic flexure, may represent diverticulitis with microperforation, phlegmon or early abscess associated with the gallbladder process, or cholecystocolonic fistula development. will follow surgery team recs. 12/08/24 Patient was seen and examined at bedside. he is resting comfortably. denies any pain. Plan for cholangiogram next week. 12/09/24 Patient was seen and examined at bedside. he is more alert and oriented today. denies any chest pain, SOB ,abd victor, N/V 12/10/24 Patient was seen and examined at bedside. he looks comfortable, deneis chest pain, SOB,abd pain,N/V. no acute event after midnight. waiting for cholangiogram and surgery team recs. possible discharge tomorrow if no plan for surgery, also pending placement at [facility]/ Review of Systems Review of Systems: All systems reviewed & are unremarkable except as noted in HPI and below (Subjective) ROS unobtainable: Yes unobtainable due to endotracheal tube, unobtainable due to medical condition and unobtainable due to mental status Neurologic: Reports confusion Psychiatric: Psychiatric: Reports confusion Exam Narrative: GENERAL: Ill-appearing, protein mild nutrition, in no acute distress. Well-nourished. - EYES: EOMI. Anicteric. - HENT: Moist mucous membranes. - LUNGS: Clear to auscultation bilaterally, no wheezing, rhonchi, or rales. - CARDIOVASCULAR: Regular rate and rhythm. No murmur. No JVD. - ABDOMEN: Soft, non-tender and non-distended. No palpable masses. - EXTREMITIES: No edema. Peripheral pulses 2+. Non-tender. - NEUROLOGIC: No focal neurological deficits. CN II-XII grossly intact. - PSYCHIATRIC: Awake, Alert and oriented to place only. Appropriate mood and affect. - SKIN: No rashes or lesions. Warm. - LYMPH: No cervical lymphadenopathy. Const: General: comfortable, no acute distress, alert, awake, confusion, ill appearing, patient obtunded (intubated. Just taken off sedation.) and thin Nutritional Appearance: thin Orientation/consciousness: confusion and patient obtunded (intubated. Just taken off sedation.) Other: , frail, ill-appearing, elderly HENMT: Face/Nose/Sinus: Normal nares present Mouth: Yes moist mucous membranes and Yes dry mucous membranes Other: ngt in place Eyes: General: appearance normal, both eyes and all related structures Sclera: sclerae normal Pupils: Equal, round and reactive pupils present EOM: EOMs intact bilaterally Neck: Neck: supple Resp: Effort & Inspection: normal respiratory effort Auscultation: clear to auscultation bilaterally Cardio: Rate: regular rate Rhythm: regular rhythm Other: S1-S2 present without murmur, rub, ectopy GI: Inspection: non-distended, incision (Dry and healing well, no erythema or drainage), scaphoid, scar (Large upper abdominal midline scar as before) and other (mildly distended) Auscultation: normal bowel sounds and Hypoactive bowel sounds present Other: Jejunostomy tube clamped and dressing dry and intact, no erythema around the jejunostomy tube : General: Yes bladder normal to palpation Urinary Catheter: Urinary Catheter: patent and draining Skin: General skin exam: normal color and no rashes or lesions noted Other: Superficial bilateral buttock friction maceration noted with three small (<2-3 cm) open wounds that are superficial with a healthy appearing pink wound bed, no necrotic tissue or purulent drainage. Neuro: General: confusion Cranial nerves: Yes Equal, round and reactive pupils present Other: Garbled speech, difficult to understand. A&O x1. Moving all extremities, however + 1 in all extremities. Left foot weaker than right. Regulatory Agency Director symmetric. Extrem: General: normal to inspection and no edema Psych: Other: Poor insight and judgment at present, pleasant. Objective Data Vital Signs Vital Signs: Vital Signs - 24 hr 12/09/24 19:40 12/09/24 21:56 12/10/24 03:22 Temperature 98.0 F 98.0 F Pulse Rate 89 82 Respiratory Rate 18 18 Blood Pressure 124/76 107/66 Pulse Oximetry 100 100 Oxygen Delivery Room Air Fraction of Inspired Oxygen 12/10/24 08:00 12/10/24 13:58 Temperature 98.2 F Pulse Rate 82 85 Respiratory Rate 18 18 Blood Pressure 116/66 Pulse Oximetry 100 100 Oxygen Delivery Room Air Fraction of Inspired Oxygen 28 Intake/Output Intake/Output: Intake & Output 12/07/24 12/08/24 12/09/24 12/10/24 23:59 23:59 23:59 23:59 Intake Total 2591 0 1080 777 Output Total 1080 1000 750 215 Balance 1511 -1000 330 562 Meds/Results Medications: Active Medications Generic Name Dose Route Start Last Admin Trade Name Freq PRN Reason Stop Dose Admin Acetaminophen 650 mg 11/13/24 21:07 07/14/25 21:13 Acetaminophen Elixir 325 Mg/10.15 Ml Udc FEED TUBE 650 mg Q6H PRN Administration Pain Allopurinol 100 mg 11/15/24 09:00 12/10/24 09:33 Allopurinol 100 Mg Tablet FEED TUBE 100 mg DAILY JHONY Administration Alteplase, Recombinant 2 mg 11/20/24 13:51 11/25/24 22:36 Alteplase 2 Mg Vial (Cathflo) IV PUSH 2 mg ONCE PRN Administration Line Occlusion Amlodipine Besylate 5 mg 11/22/24 09:00 11/29/24 10:35 Amlodipine Besylate 5 Mg Tablet FEED TUBE Not Given DAILY JHONY Aspirin 81 mg 11/04/24 08:00 12/10/24 09:33 Aspirin 81 Mg Chewable Tablet FEED TUBE 01/02/25 23:59 81 mg DAILY@0800 JHONY Administration Carvedilol 6.25 mg 11/22/24 09:00 11/29/24 10:35 Carvedilol 6.25 Mg Tablet FEED TUBE Not Given Q12HR JHONY Collagenase 1 applic 11/13/24 09:00 12/10/24 09:34 Collagenase Oint 30 Gm Tube TOPICAL 1 applic Q12HR JHONY Administration Dextrose 12.5 gm 10/17/24 21:26 10/30/24 05:55 Dextrose 50% 25 Gm/50 Ml Syringe IV PUSH 12.5 gm PRN PRN Administration Hypoglycemia Protocol Enoxaparin Sodium 40 mg 11/02/24 09:00 12/10/24 09:34 Enoxaparin 40 Mg/0.4 Ml Syringe SUB-Q 40 mg DAILY JHONY Administration Famotidine 20 mg 11/24/24 09:00 12/10/24 09:33 Famotidine 20 Mg Tablet FEED TUBE 20 mg Q12HR JHONY Administration Folic Acid 1 mg 10/24/24 09:00 12/10/24 09:33 Folic Acid 1 Mg Tablet FEED TUBE 1 mg QAM JHONY Administration Glucagon 1 mg 10/17/24 21:26 Glucagon For Inj 1 Mg Vial IM PRN PRN Hypoglycemia Protocol Glucose 15 gm 11/13/24 21:07 Glucose Oral Gel 15 Gm Of Glucse In 37.5 Gm Tube FEED TUBE PRN PRN Hypoglycemia Protocol Dextrose 1,000 mls @ 100 mls/hr 10/17/24 21:26 Dextrose 5% 1,000 Ml IVPB PRN PRN Hypoglycemia Protocol Rosuvastatin Calcium 10 mg 11/04/24 09:00 12/10/24 09:33 Rosuvastatin 10 Mg Tablet FEED TUBE 10 mg DAILY JHONY Administration Saccharomyces Boulardii 250 mg 11/14/24 09:00 12/10/24 09:33 Saccharomyces Boulardii 250 Mg Capsule FEED TUBE 250 mg DAILY JHONY Administration Thiamine HCl 100 mg 10/24/24 09:00 12/10/24 09:33 Thiamine Hcl 100 Mg Tablet FEED TUBE 100 mg QAM JHONY Administration Radiology Results: ITS Impressions Face CT 10/19/24 09:39 IMPRESSION: 1. Extensive sinus disease with near complete opacification of the right maxillary sinus and dependently layering fluid in the bilateral sphenoid sinuses. Correlate clinically for acute sinusitis. 2. Dental and periodontal disease with periapical lucency surrounding the posterior most remaining right maxillary molar. Renal Ultrasound 10/19/24 09:48 IMPRESSION: No hydronephrosis or renal calculi. No parenchymal findings to suggest the presence of medical renal disease. Simple cysts within the right kidney, for which no further follow-up is needed. Brain MRI 10/24/24 14:22 IMPRESSION: 1. Age-related changes the brain. No acute intracranial process. 2. Prominent sinus disease with fluid nearly filling the right maxillary sinus and layering dependently in the bilateral sphenoid sinuses. Correlate clinically for acute sinusitis. Lumbar Puncture Fluoroscopy 10/31/24 17:34 IMPRESSION: 1. Successful fluoro-guided lumbar puncture with mildly elevated opening pressure of 23 cm water. Modified Barium Swallow 11/06/24 10:05 IMPRESSION: Nondiagnostic study as all contents either leaked or were actively expelled from the mouth. No swallows were able to be evaluated. Please correlate with speech pathologist findings and specific feeding recommendations. Abdomen X-Ray 11/08/24 07:55 Impression: NG tube in satisfactory position. Probable small bowel obstruction. Chest/Abdomen/Pelvis CT 11/08/24 09:59 IMPRESSION: CHEST: 1. Right basilar atelectasis versus pneumonia with pleural effusion. 2. No other acute cardiopulmonary pathology. ABDOMEN/PELVIS: 1. Free air is seen anteriorly around the liver with minimal fluid. 2. Significant ascites in the pelvis. Drainage tube is seen in the left side of the pelvis. 3. Cholelithiasis with thickened wall of the gallbladder. Evaluation for cholecystitis advised. 4. Slightly dilated small bowel loops in the left upper abdomen which may indicate ileus follow-up advised. 5. Right renal cysts. Upper GI Series 11/09/24 13:49 IMPRESSION: 1. Left lower quadrant jejunostomy tube in expected position with injected contrast opacifying the normal-appearing jejunum with no extraluminal leakage of contrast. Head CT 11/14/24 05:17 Impression: No intracranial hemorrhage, mass, or acute infarct. Atrophy and chronic white matter changes, as above. Abdomen Ultrasound 11/14/24 15:13 IMPRESSION: Highly suggestive cholecystitis with cholelithiasis and gallbladder sludge. Clinical correlation advised. Minimal ascites. Minimal right pleural effusion. Cholecystostomy 11/15/24 16:04 IMPRESSION: 1. Successful ultrasound-guided cholecystostomy tube placement. 2. 13 mL bile was sent for aerobic, anaerobic, and fungal cultures. 3. The catheter will be managed by Dr. Ortiz. A catheter cholangiogram may be performed not less than 48 hours after tube placement if clinically indicated to assess cystic duct patency. If cholecystectomy is not eventually performed and the infectious episode has resolved, the tube may be removed over a guidewire, preferably not less than 3 weeks after placement to allow time for a mature catheter tract to form to prevent bile leakage and peritonitis. Catheter Placement CT 11/20/24 17:00 IMPRESSION: Technically successful CT-guided 10 Polish drainage catheter placement within a (likely)perioperative infected hematoma, as detailed above. Specimen was sent for the culture evaluation. The catheter will need to be forwarded flushed (towards the patient and towards the drainage catheter) twice daily with 10 cc of normal saline. ADDENDUM: 11/22/24 1113 IMPRESSION: Technically successful CT-guided 10 Polish drainage catheter placement within a (likely)perioperative infected hematoma, as detailed above. Of note, perioperative includes periprocedural. In no way, is this a reference to any of the procedures/surgeries that this patient has undergone. Given his prolonged hospital course, this rim-enhancing fluid collection could be from any of a number of causes, and was not mentioned in any way to refer to the percutaneous jejunostomy, which (once again) is in excellent position. In addition, the percutaneous cholecystostomy tube is not transhepatic, but enters the gallbladder directly (on imaging). Chest X-Ray 12/04/24 16:22 IMPRESSION: No acute cardiopulmonary pathology. Abdomen/Pelvis CT 12/05/24 19:32 IMPRESSION: Trace right pleural effusion. Right upper extremity PICC terminates in the inferior right atrium, consider retraction. Segmental colonic wall thickening, inflammatory change, and possible extraluminal gas at the hepatic flexure, may represent diverticulitis with microperforation, phlegmon or early abscess associated with the gallbladder process, or cholecystocolonic fistula development. Increased organization and decreased overall size of the right abdominal abscess/hematoma. Cholangiogram 12/10/24 09:20 IMPRESSION: Further evaluation of CT examination dated 12/05/2024 demonstrates no air within the biliary tree or the gallbladder. Innumerable filling defects within the gallbladder consistent with stones. Extravasation of injected contrast around of the catheter, entering both a loop of anterior, right upper quadrant small bowel as well as along the caudal-most portion of the liver. ADDENDUM: 12/10/24 1006 The appearance of contrast entering a loop of small bowel within the anterior most portion of the right upper quadrant may be artifactual in origin, as the patient was unable to change positions on the fluoroscopy table. Free extravasation may also demonstrate this appearance, in the appropriate clinical setting. Given that small bowel perforation would result in peritonitis and sepsis, and this is not the case in our patient, this appearance is likely artifactual rather than actual bowel perforation. Labs Labs: Laboratory Results - last 24 hr 12/10/24 04:55 WBC 8.6 RBC 2.54 L Hgb 7.3 L Hct 23.5 L MCV 92.5 MCH 28.7 MCHC 31.1 L RDW 16.2 H Plt Count 326 MPV 10.3 Sodium 136 L Potassium 3.9 Chloride 104 Carbon Dioxide 22 Anion Gap 10 BUN 20 Creatinine 0.70 Estim Creat Clear Calc 76 Estimated GFR > 60 Glucose 116 H Calcium 9.3 Total Bilirubin 0.6 AST 44 ALT 44 Alkaline Phosphatase 160 H Total Protein 8.3 H Albumin 3.4 L Quality VTE Prophylaxis VTE prophylaxis: mechanical ordered
[2024-12-10 19:52] VITALS: BP 120/63; PULSE 90; RESP 18; TEMP 36.8; O2SAT 100
[2024-12-11 04:14] VITALS: BP 111/48; PULSE 79; RESP 18; TEMP 36.8; O2SAT 100
[2024-12-11 04:53] LABS: Hematocrit 23.2 % (42.0-52.0); Hemoglobin 7.2 g/dL (14.0-18.0); Mean Corpuscular HGB Conc 31.0 g/dl (32-36); Mean Corpuscular Hemoglobin 28.7 pg (26-34); Mean Corpuscular Volume 92.4 fl (80-100); Platelet Count Result 340 k/mm3 (150-375); Red Blood Count 2.51 M/mm3 (4.6-6.20); White Blood Count 9.1 K/mm3 (4.5-10.0)
[2024-12-11 05:15] LABS: Alanine Aminotransferase 38 U/L (6-50); Albumin Level 3.4 g/dL (3.5-5.1); Alkaline Phosphatase 149 U/L (38-126); Anion Gap 10 mmol/L (4-12); Aspartate Amino Transferase 41 U/L (17-59); Bilirubin,Total 0.6 mg/dL (0.2-1.3); Blood Urea Nitrogen 19 mg/dL (9-20); Calcium 9.3 mg/dL (8.4-10.2); Carbon Dioxide 23 mmol/L (22-30); Chloride 103 mmol/L (98-107); Estimated CRCL calculation 79 ml/min; Estimated Glomerular Filt Rate > 60; Glucose 117 mg/dL (65-110); Potassium 3.8 mmol/L (3.4-5.0); Sodium 136 mmol/L (137-145); Total Protein 8.1 g/dL (6.3-8.2)
[2024-12-11] MEDS: ENOXAPARIN 40 MG/0.4 ML SYRINGE SUB-Q (09:27)
[2024-12-11] MEDS: ROSUVASTATIN 10 MG TABLET FEED TUBE (09:28)
[2024-12-11] MEDS: FAMOTIDINE 20 MG TABLET FEED TUBE ×2 (09:28→21:44)
[2024-12-11] MEDS: FOLIC ACID 1 MG TABLET FEED TUBE (09:28)
[2024-12-11] MEDS: SACCHAROMYCES BOULARDII 250 MG CAPSULE FEED TUBE (09:28)
[2024-12-11] MEDS: THIAMINE HCL 100 MG TABLET FEED TUBE (09:28)
[2024-12-11] MEDS: ASPIRIN 81 MG CHEWABLE TABLET FEED TUBE (09:28)
[2024-12-11 09:29] VITALS: RESP 18; O2SAT 100
[2024-12-11] MEDS: COLLAGENASE OINT 30 GM TUBE 1 APPLIC TOPICAL ×2 (09:29→21:44)
--- NOTE | 2024-12-11 11:14 | PM.IMPN ---
Progress Note: A&P Assessment and Plan (1) Shock: Code(s): R57.9 - Shock, unspecified Status: Acute (2) Cholelithiasis and cholecystitis with obstruction: Qualifiers: Cholelithiasis location: gallbladder Cholecystitis acuity: acute and chronic Qualified Code(s): K80.13 - Calculus of gallbladder with acute and chronic cholecystitis with obstruction Code(s): K80.19 - Calculus of gallbladder with other cholecystitis with obstruction Status: Acute Plan (1) Shock: Code(s): R57.9 - Shock, unspecified Status: Acute Assessment and Plan: Patient initially presented with septic shock Patient has developed new hypotension 11/08/2024. Suspect aspiration pneumonia versus UTI as patient has had Michelle for more than 2 weeks., or persistent C diff infection Vancomycin 11/14 to 11/19 Continue meropenem (11/08) Day 7 since possible source control but repeat CT showing persistent 8.7cm loculated fluid collection right abdomen. General surgery following and feels this is a hematoma and not infected. Completed antiviotics (2) Intra-abdominal abscess: Code(s): K65.1 - Peritoneal abscess Status: Ruled-out Assessment and Plan: CT 11/19 showing a rim enhancing fluid collection within the right mid to upper abdomen measuring 8.5 cm IR placed a drain 11/20 and felt to be an infected hematoma Abd Abscess Cultures 11/20 Negative Vancomycin 11/14 to 11/19. Meropenem started 11/08 and Day [address] 11/26 showing persistent 8.7cm loculated fluid collection right abdomen. Gen Surgery following and feel this was not infected hematoma. Stop abx. Ct 12/05 Segmental colonic wall thickening, inflammatory change, and possible extraluminal gas at the hepatic flexure, may represent diverticulitis with microperforation, phlegmon or early abscess associated with the gallbladder process, or cholecystocolonic fistula development. reconsulted surgery team. Plan for cholangiogram next week. (3) Cholelithiasis and cholecystitis with obstruction: Qualifiers: Cholelithiasis location: gallbladder Cholecystitis acuity: acute and chronic Qualified Code(s): K80.13 - Calculus of gallbladder with acute and chronic cholecystitis with obstruction Code(s): K80.19 - Calculus of gallbladder with other cholecystitis with obstruction Status: Acute Assessment and Plan: As above. Patient with worsening leukocytosis up to 28K with hypotension. Meropenem and vancomycin added. Ultrasound with cholecystitis now status post cholecystostomy tube placement 11/15/2024. Cholecystostomy tube will need to be irrigated as ordered. Cholangiogram through the cholecystectomy tube showed occluded cystic duct Plan for tube to remain in place on discharge. 12/09 leucocytosis resolved (4) Metabolic encephalopathy: , resolved Code(s): G93.41 - Metabolic encephalopathy Status: Acute Assessment and Plan: Patient has had Altered mental status since admission which is multifactorial Patient was evaluated by Neurology and suspected to have metabolic encephalopathy. -CT brain on presented was negative for intracranial abnormalities. Repeat CT scan 11/08 also unremarkable -MRI cannot be performed as patient was in the [place] and may have sharpnel exposure according to his daughter -10/19: Repeat CT brain did not show any acute intracranial hemorrhage or suspicious mass effect, inflammatory sinus disease. -10/19: CT facial bones showed extensive sinus disease with near complete opacification of the right maxillary sinus and dependently layering fluid in the bilateral sphenoid sinuses. Dental and periodontal disease with periapical lucency surrounding the posterior most remaining right maxillary molar His ammonia level was normal Lumbar puncture 10/31/2024 with mildly elevated opening pressure of 23 cm water and high protein. 6 RBC/1 WBC with 100% lymphocytes. HSV II PCR negative. WNV negative. Mental status improving since drain placed. Continue to monitor. Increase activity as tolerated. (5) Anemia: Qualifiers: Anemia type: unspecified type Qualified Code(s): D64.9 - Anemia, unspecified Code(s): D64.9 - Anemia, unspecified Status: Chronic Assessment and Plan: He had EGD on 11/01 which showed gastritis and previous gastric surgery Hemoglobin dropped to 5.2 which could be partially dilutional versus GI loss 11/09 Transfuse 2 units PRBC Continue protonix Hgb low but stable in the 7-8 range. Monitor hemoglobin. today is 7.2 (6) C. difficile diarrhea: Code(s): A04.72 - Enterocolitis due to Clostridium difficile, not specified as recurrent Status: Acute Assessment and Plan: CT abdomen pelvis reviewed Diarrhea improved. IV Flagyl stopped 11/09 Dificid completed on 11/18. Fecal containment system stopped 11/23. Documented stool output noted Monitor stool output. Resume treatment if diarrhea recurs. Completed Dificid (7) Acute kidney injury: Code(s): N17.9 - Acute kidney failure, unspecified Status: Acute Assessment and Plan: ICU: Patient presented with Acute kidney injury which improved with IV fluids RESOLVED (8) Thrombocytopenia: Code(s): D69.6 - Thrombocytopenia, unspecified Status: Acute Assessment and Plan: Thrombocytopenia related to sepsis; this has improved High platelet count at this time suggest hemoconcentration RESOLVED (9) Hyperkalemia: Code(s): E87.5 - Hyperkalemia Status: Acute Assessment and Plan: Hyperkalemia with ALEJANDRO Calcium gluconate, insulin and D50, bicarb received Lokelma in ICU IV fluid bolus RESOLVED (10) Acute respiratory failure: Code(s): J96.00 - Acute respiratory failure, unspecified whether with hypoxia or hypercapnia Status: Acute Assessment and Plan: RESOLVED fever 12/04/24 unclear etiology possible aspiration follow culture results. monitor off of ABx CT 12/05:Segmental colonic wall thickening, inflammatory change, and possible extraluminal gas at the hepatic flexure, may represent diverticulitis with microperforation, phlegmon or early abscess associated with the gallbladder process, or cholecystocolonic fistula development. will follow surgery team recs. Plan for cholangiogram next week. cholangiogram 12/10/24 :he appearance of contrast entering a loop of small bowel within the anterior most portion of the right upper quadrant may be artifactual in origin, as the patient was unable to change positions on the fluoroscopy table. Free extravasation may also demonstrate this appearance, in the appropriate clinical setting. Given that small bowel perforation would result in peritonitis and sepsis, and this is not the case in our patient, this appearance is likely artifactual rather than actual bowel perforation. No further recs from surgery DVT prophylaxis on Sq lovenox Subjective Date/time seen: 12/11/24 11:14 Interval history: Comfortable at bedside and waiting on placement Review of Systems Review of Systems: All systems reviewed & are unremarkable except as noted in HPI and below (Subjective) ROS unobtainable: Yes unobtainable due to endotracheal tube, unobtainable due to medical condition and unobtainable due to mental status Neurologic: Reports confusion Psychiatric: Psychiatric: Reports confusion Exam Narrative: GENERAL: Ill-appearing, protein mild nutrition, in no acute distress. Well-nourished. - EYES: EOMI. Anicteric. - HENT: Moist mucous membranes. - LUNGS: Clear to auscultation bilaterally, no wheezing, rhonchi, or rales. - CARDIOVASCULAR: Regular rate and rhythm. No murmur. No JVD. - ABDOMEN: Soft, non-tender and non-distended. No palpable masses. - EXTREMITIES: No edema. Peripheral pulses 2+. Non-tender. - NEUROLOGIC: No focal neurological deficits. CN II-XII grossly intact. - PSYCHIATRIC: Awake, Alert and oriented to place only. Appropriate mood and affect. - SKIN: No rashes or lesions. Warm. - LYMPH: No cervical lymphadenopathy. Const: General: comfortable, no acute distress, alert, awake, confusion, ill appearing, patient obtunded (intubated. Just taken off sedation.) and thin Nutritional Appearance: thin Orientation/consciousness: confusion and patient obtunded (intubated. Just taken off sedation.) Other: , frail, ill-appearing, elderly HENMT: Face/Nose/Sinus: Normal nares present Mouth: Yes moist mucous membranes and Yes dry mucous membranes Other: ngt in place Eyes: General: appearance normal, both eyes and all related structures Sclera: sclerae normal Pupils: Equal, round and reactive pupils present EOM: EOMs intact bilaterally Neck: Neck: supple Resp: Effort & Inspection: normal respiratory effort Auscultation: clear to auscultation bilaterally Cardio: Rate: regular rate Rhythm: regular rhythm Other: S1-S2 present without murmur, rub, ectopy GI: Inspection: non-distended, incision (Dry and healing well, no erythema or drainage), scaphoid, scar (Large upper abdominal midline scar as before) and other (mildly distended) Auscultation: normal bowel sounds and Hypoactive bowel sounds present Other: Jejunostomy tube clamped and dressing dry and intact, no erythema around the jejunostomy tube : General: Yes bladder normal to palpation Urinary Catheter: Urinary Catheter: patent and draining Skin: General skin exam: normal color and no rashes or lesions noted Other: Superficial bilateral buttock friction maceration noted with three small (<2-3 cm) open wounds that are superficial with a healthy appearing pink wound bed, no necrotic tissue or purulent drainage. Neuro: General: confusion and patient obtunded (intubated. Just taken off sedation.) Cranial nerves: Yes Equal, round and reactive pupils present Motor exam (neuro): 5/5 motor strength present throughout Other: Garbled speech, difficult to understand. A&O x1. Moving all extremities, however + 1 in all extremities. Left foot weaker than right. Coke Inspector symmetric. Extrem: General: normal to inspection and no edema Psych: Other: Poor insight and judgment at present, pleasant. Objective Data Vital Signs Vital Signs: Vital Signs - 24 hr 12/10/24 13:58 12/10/24 19:52 12/10/24 22:45 Temperature 98.2 F 98.2 F Pulse Rate 85 90 Respiratory Rate 18 18 Blood Pressure 116/66 120/63 Pulse Oximetry 100 100 Oxygen Delivery Room Air 12/11/24 04:14 Temperature 98.2 F Pulse Rate 79 Respiratory Rate 18 Blood Pressure 111/48 L Pulse Oximetry 100 Oxygen Delivery Intake/Output Intake/Output: Intake & Output 12/08/24 12/09/24 12/10/24 12/11/24 23:59 23:59 23:59 23:59 Intake Total 0 8925 092 2875 Output Total 1000 750 915 400 Balance -1000 330 -138 1415 Meds/Results Medications: Active Medications Generic Name Dose Route Start Last Admin Trade Name Freq PRN Reason Stop Dose Admin Acetaminophen 650 mg 11/13/24 21:07 12/03/24 21:13 Acetaminophen Elixir 325 Mg/10.15 Ml Udc FEED TUBE 650 mg Q6H PRN Administration Pain Allopurinol 100 mg 11/15/24 09:00 12/11/24 09:28 Allopurinol 100 Mg Tablet FEED TUBE 100 mg DAILY JHONY Administration Alteplase, Recombinant 2 mg 11/20/24 13:51 11/25/24 22:36 Alteplase 2 Mg Vial (Cathflo) IV PUSH 2 mg ONCE PRN Administration Line Occlusion Amlodipine Besylate 5 mg 11/22/24 09:00 11/29/24 10:35 Amlodipine Besylate 5 Mg Tablet FEED TUBE Not Given DAILY [facility] Aspirin 81 mg 11/04/24 08:00 12/11/24 09:28 Aspirin 81 Mg Chewable Tablet FEED TUBE 01/02/25 23:59 81 mg DAILY@0800 [facility] Administration Carvedilol 6.25 mg 11/22/24 09:00 11/29/24 10:35 Carvedilol 6.25 Mg Tablet FEED TUBE Not Given Q12HR JHONY Collagenase 1 applic 11/13/24 09:00 12/11/24 09:29 Collagenase Oint 30 Gm Tube TOPICAL 1 applic Q12HR JHONY Administration Dextrose 12.5 gm 10/17/24 21:26 10/30/24 05:55 Dextrose 50% 25 Gm/50 Ml Syringe IV PUSH 12.5 gm PRN PRN Administration Hypoglycemia Protocol Enoxaparin Sodium 40 mg 11/02/24 09:00 12/11/24 09:27 Enoxaparin 40 Mg/0.4 Ml Syringe SUB-Q 40 mg DAILY JHONY Administration Famotidine 20 mg 11/24/24 09:00 12/11/24 09:28 Famotidine 20 Mg Tablet FEED TUBE 20 mg Q12HR JHONY Administration Folic Acid 1 mg 10/24/24 09:00 12/11/24 09:28 Folic Acid 1 Mg Tablet FEED TUBE 1 mg QAM JHONY Administration Glucagon 1 mg 10/17/24 21:26 Glucagon For Inj 1 Mg Vial IM PRN PRN Hypoglycemia Protocol Glucose 15 gm 11/13/24 21:07 Glucose Oral Gel 15 Gm Of Glucse In 37.5 Gm Tube FEED TUBE PRN PRN Hypoglycemia Protocol Dextrose 1,000 mls @ 100 mls/hr 10/17/24 21:26 Dextrose 5% 1,000 Ml IVPB PRN PRN Hypoglycemia Protocol Miscellaneous Information 1 each 12/11/24 00:01 Rosuvastatin Needs To Be Renewed Or It Will Automatically Discontinue. XX 01/10/25 00:00 CLARIFY JHONY Rosuvastatin Calcium 10 mg 11/04/24 09:00 12/11/24 09:28 Rosuvastatin 10 Mg Tablet FEED TUBE 10 mg DAILY JHONY Administration Saccharomyces Boulardii 250 mg 11/14/24 09:00 12/11/24 09:28 Saccharomyces Boulardii 250 Mg Capsule FEED TUBE 250 mg DAILY JHONY Administration Thiamine HCl 100 mg 10/24/24 09:00 12/11/24 09:28 Thiamine Hcl 100 Mg Tablet FEED TUBE 100 mg QAM JHONY Administration Radiology Results: ITS Impressions Face CT 10/19/24 09:39 IMPRESSION: 1. Extensive sinus disease with near complete opacification of the right maxillary sinus and dependently layering fluid in the bilateral sphenoid sinuses. Correlate clinically for acute sinusitis. 2. Dental and periodontal disease with periapical lucency surrounding the posterior most remaining right maxillary molar. Renal Ultrasound 10/19/24 09:48 IMPRESSION: No hydronephrosis or renal calculi. No parenchymal findings to suggest the presence of medical renal disease. Simple cysts within the right kidney, for which no further follow-up is needed. Brain MRI 10/24/24 14:22 IMPRESSION: 1. Age-related changes the brain. No acute intracranial process. 2. Prominent sinus disease with fluid nearly filling the right maxillary sinus and layering dependently in the bilateral sphenoid sinuses. Correlate clinically for acute sinusitis. Lumbar Puncture Fluoroscopy 10/31/24 17:34 IMPRESSION: 1. Successful fluoro-guided lumbar puncture with mildly elevated opening pressure of 23 cm water. Modified Barium Swallow 11/06/24 10:05 IMPRESSION: Nondiagnostic study as all contents either leaked or were actively expelled from the mouth. No swallows were able to be evaluated. Please correlate with speech pathologist findings and specific feeding recommendations. Abdomen X-Ray 11/08/24 07:55 Impression: NG tube in satisfactory position. Probable small bowel obstruction. Chest/Abdomen/Pelvis CT 11/08/24 09:59 IMPRESSION: CHEST: 1. Right basilar atelectasis versus pneumonia with pleural effusion. 2. No other acute cardiopulmonary pathology. ABDOMEN/PELVIS: 1. Free air is seen anteriorly around the liver with minimal fluid. 2. Significant ascites in the pelvis. Drainage tube is seen in the left side of the pelvis. 3. Cholelithiasis with thickened wall of the gallbladder. Evaluation for cholecystitis advised. 4. Slightly dilated small bowel loops in the left upper abdomen which may indicate ileus follow-up advised. 5. Right renal cysts. Upper GI Series 11/09/24 13:49 IMPRESSION: 1. Left lower quadrant jejunostomy tube in expected position with injected contrast opacifying the normal-appearing jejunum with no extraluminal leakage of contrast. Head CT 11/14/24 05:17 Impression: No intracranial hemorrhage, mass, or acute infarct. Atrophy and chronic white matter changes, as above. Abdomen Ultrasound 11/14/24 15:13 IMPRESSION: Highly suggestive cholecystitis with cholelithiasis and gallbladder sludge. Clinical correlation advised. Minimal ascites. Minimal right pleural effusion. Cholecystostomy 11/15/24 16:04 IMPRESSION: 1. Successful ultrasound-guided cholecystostomy tube placement. 2. 13 mL bile was sent for aerobic, anaerobic, and fungal cultures. 3. The catheter will be managed by Dr. Ortiz. A catheter cholangiogram may be performed not less than 48 hours after tube placement if clinically indicated to assess cystic duct patency. If cholecystectomy is not eventually performed and the infectious episode has resolved, the tube may be removed over a guidewire, preferably not less than 3 weeks after placement to allow time for a mature catheter tract to form to prevent bile leakage and peritonitis. Catheter Placement CT 11/20/24 17:00 IMPRESSION: Technically successful CT-guided 10 [place] drainage catheter placement within a (likely)perioperative infected hematoma, as detailed above. Specimen was sent for the culture evaluation. The catheter will need to be forwarded flushed (towards the patient and towards the drainage catheter) twice daily with 10 cc of normal saline. ADDENDUM: 11/22/24 1113 IMPRESSION: Technically successful CT-guided 10 [place] drainage catheter placement within a (likely)perioperative infected hematoma, as detailed above. Of note, perioperative includes periprocedural. In no way, is this a reference to any of the procedures/surgeries that this patient has undergone. Given his prolonged hospital course, this rim-enhancing fluid collection could be from any of a number of causes, and was not mentioned in any way to refer to the percutaneous jejunostomy, which (once again) is in excellent position. In addition, the percutaneous cholecystostomy tube is not transhepatic, but enters the gallbladder directly (on imaging). Chest X-Ray 12/04/24 16:22 IMPRESSION: No acute cardiopulmonary pathology. Abdomen/Pelvis CT 12/05/24 19:32 IMPRESSION: Trace right pleural effusion. Right upper extremity PICC terminates in the inferior right atrium, consider retraction. Segmental colonic wall thickening, inflammatory change, and possible extraluminal gas at the hepatic flexure, may represent diverticulitis with microperforation, phlegmon or early abscess associated with the gallbladder process, or cholecystocolonic fistula development. Increased organization and decreased overall size of the right abdominal abscess/hematoma. Cholangiogram 12/10/24 09:20 IMPRESSION: Further evaluation of CT examination dated 12/05/2024 demonstrates no air within the biliary tree or the gallbladder. Innumerable filling defects within the gallbladder consistent with stones. Extravasation of injected contrast around of the catheter, entering both a loop of anterior, right upper quadrant small bowel as well as along the caudal-most portion of the liver. ADDENDUM: 12/10/24 1006 The appearance of contrast entering a loop of small bowel within the anterior most portion of the right upper quadrant may be artifactual in origin, as the patient was unable to change positions on the fluoroscopy table. Free extravasation may also demonstrate this appearance, in the appropriate clinical setting. Given that small bowel perforation would result in peritonitis and sepsis, and this is not the case in our patient, this appearance is likely artifactual rather than actual bowel perforation. Labs Labs: Laboratory Results - last 24 hr 12/11/24 04:10 WBC 9.1 RBC 2.51 L Hgb 7.2 L Hct 23.2 L MCV 92.4 MCH 28.7 MCHC 31.0 L RDW 16.6 H Plt Count 340 MPV 10.3 Sodium 136 L Potassium 3.8 Chloride 103 Carbon Dioxide 23 Anion Gap 10 BUN 19 Creatinine 0.67 L Estim Creat Clear Calc 79 Estimated GFR > 60 Glucose 117 H Calcium 9.3 Total Bilirubin 0.6 AST 41 ALT 38 Alkaline Phosphatase 149 H Total Protein 8.1 Albumin 3.4 L Quality VTE Prophylaxis VTE prophylaxis: mechanical ordered
--- NOTE | 2024-12-11 13:23 | PCNFU ---
Nutrition Follow-Up Complete: Inadequate Oral Intake as related to AMS as evidenced by NPO. Goal:Meet estimated nutritional needs Pt meeting goal, continue with same goal Pt current nutrition is NPO, Tube feeding: Jevity 1.5 @ 55ml/hr with 100ml flush q 4 hrs. Nutrition recommendation: continue with current plan of care Last recorded weight is 63.7 kg. Bowel Motility: +BM 12/11 Labs Reviewed: Hgb:7.2, HCT:23.2, Alb:3.4, NA:136, Cr:0.67, Glu:117 Meds Noted: lovenox, protonix Skin: WNL Additional Notes: pt continues on same tube feeding, tolerating well. Tube feedings are providing 1815 kcal/84 gm protein/920 ml water. Continue with current plan of care. will monitor weight, labs, skin, tube feed, meds every Tuesday and Tuesday
[2024-12-11 14:00] VITALS: BP 130/86; PULSE 100; RESP 14; TEMP 37.1; O2SAT 100
[2024-12-11 20:07] VITALS: BP 130/69; PULSE 96; RESP 18; TEMP 36.4; O2SAT 98
[2024-12-12 03:02] VITALS: BP 122/67; PULSE 89; RESP 18; TEMP 36.6; O2SAT 100
[2024-12-12 04:46] LABS: Hematocrit 24.0 % (42.0-52.0); Hemoglobin 7.5 g/dL (14.0-18.0); Immature Granulocyte Percent A 0.3 % (0-0.5); Lymphocytes Absolute Auto 3.34 K/mm3 (0.9-3.2); Mean Corpuscular HGB Conc 31.3 g/dl (32-36); Mean Corpuscular Hemoglobin 28.8 pg (26-34); Mean Corpuscular Volume 92.3 fl (80-100); Nucleated Red Blood Cells Absolute Auto 0.000 K/mm3 (0.0-0.012); Nucleated Red Blood Cells Perc 0.0 % (0.0-0.2); Platelet Count Result 352 k/mm3 (150-375); Red Blood Count 2.60 M/mm3 (4.6-6.20); White Blood Count 9.4 K/mm3 (4.5-10.0)
[2024-12-12 05:12] LABS: Alanine Aminotransferase 35 U/L (6-50); Albumin Level 3.4 g/dL (3.5-5.1); Alkaline Phosphatase 151 U/L (38-126); Anion Gap 10 mmol/L (4-12); Aspartate Amino Transferase 44 U/L (17-59); Bilirubin,Total 0.6 mg/dL (0.2-1.3); Blood Urea Nitrogen 19 mg/dL (9-20); Calcium 9.3 mg/dL (8.4-10.2); Carbon Dioxide 22 mmol/L (22-30); Chloride 108 mmol/L (98-107); Estimated CRCL calculation 74 ml/min; Estimated Glomerular Filt Rate > 60; Glucose 126 mg/dL (65-110); Magnesium 1.7 mg/dL (1.6-2.3); Potassium 3.6 mmol/L (3.4-5.0); Sodium 140 mmol/L (137-145); Total Protein 8.3 g/dL (6.3-8.2)
[2024-12-12] MEDS: SACCHAROMYCES BOULARDII 250 MG CAPSULE FEED TUBE (08:14)
[2024-12-12] MEDS: ENOXAPARIN 40 MG/0.4 ML SYRINGE SUB-Q (08:14)
[2024-12-12 08:15] VITALS: RESP 18; O2SAT 100
[2024-12-12] MEDS: FOLIC ACID 1 MG TABLET FEED TUBE (08:15)
[2024-12-12] MEDS: FAMOTIDINE 20 MG TABLET FEED TUBE (08:15)
[2024-12-12] MEDS: THIAMINE HCL 100 MG TABLET FEED TUBE (08:15)
[2024-12-12] MEDS: ASPIRIN 81 MG CHEWABLE TABLET FEED TUBE (08:15)
[2024-12-12] MEDS: COLLAGENASE OINT 30 GM TUBE 1 APPLIC TOPICAL ×2 (08:17→21:45)
--- NOTE | 2024-12-12 12:33 | PM.IMPN ---
Progress Note: A&P Assessment and Plan (1) Shock: Code(s): R57.9 - Shock, unspecified Status: Acute (2) Cholelithiasis and cholecystitis with obstruction: Qualifiers: Cholelithiasis location: gallbladder Cholecystitis acuity: acute and chronic Qualified Code(s): K80.13 - Calculus of gallbladder with acute and chronic cholecystitis with obstruction Code(s): K80.19 - Calculus of gallbladder with other cholecystitis with obstruction Status: Acute Plan (1) Shock: Code(s): R57.9 - Shock, unspecified Status: Acute Assessment and Plan: Patient initially presented with septic shock Patient has developed new hypotension 11/08/2024. Suspect aspiration pneumonia versus UTI as patient has had Michelle for more than 2 weeks., or persistent C diff infection Vancomycin 11/14 to 11/19 Continue meropenem (11/08) Day 7 since possible source control but repeat CT showing persistent 8.7cm loculated fluid collection right abdomen. General surgery following and feels this is a hematoma and not infected. Completed antiviotics (2) Intra-abdominal abscess: Code(s): K65.1 - Peritoneal abscess Status: Ruled-out Assessment and Plan: CT 11/19 showing a rim enhancing fluid collection within the right mid to upper abdomen measuring 8.5 cm IR placed a drain 11/20 and felt to be an infected hematoma Abd Abscess Cultures 11/20 Negative Vancomycin 11/14 to 11/19. Meropenem started 11/08 and Day [address] 11/26 showing persistent 8.7cm loculated fluid collection right abdomen. Gen Surgery following and feel this was not infected hematoma. Stop abx. Ct 12/05 Segmental colonic wall thickening, inflammatory change, and possible extraluminal gas at the hepatic flexure, may represent diverticulitis with microperforation, phlegmon or early abscess associated with the gallbladder process, or cholecystocolonic fistula development. reconsulted surgery team. Plan for cholangiogram next week. (3) Cholelithiasis and cholecystitis with obstruction: Qualifiers: Cholelithiasis location: gallbladder Cholecystitis acuity: acute and chronic Qualified Code(s): K80.13 - Calculus of gallbladder with acute and chronic cholecystitis with obstruction Code(s): K80.19 - Calculus of gallbladder with other cholecystitis with obstruction Status: Acute Assessment and Plan: As above. Patient with worsening leukocytosis up to 28K with hypotension. Meropenem and vancomycin added. Ultrasound with cholecystitis now status post cholecystostomy tube placement 11/15/2024. Cholecystostomy tube will need to be irrigated as ordered. Cholangiogram through the cholecystectomy tube showed occluded cystic duct Plan for tube to remain in place on discharge. 12/09 leucocytosis resolved (4) Metabolic encephalopathy: , resolved Code(s): G93.41 - Metabolic encephalopathy Status: Acute Assessment and Plan: Patient has had Altered mental status since admission which is multifactorial Patient was evaluated by Neurology and suspected to have metabolic encephalopathy. -CT brain on presented was negative for intracranial abnormalities. Repeat CT scan 11/08 also unremarkable -MRI cannot be performed as patient was in the [place] and may have sharpnel exposure according to his daughter -10/19: Repeat CT brain did not show any acute intracranial hemorrhage or suspicious mass effect, inflammatory sinus disease. -10/19: CT facial bones showed extensive sinus disease with near complete opacification of the right maxillary sinus and dependently layering fluid in the bilateral sphenoid sinuses. Dental and periodontal disease with periapical lucency surrounding the posterior most remaining right maxillary molar His ammonia level was normal Lumbar puncture 10/31/2024 with mildly elevated opening pressure of 23 cm water and high protein. 6 RBC/1 WBC with 100% lymphocytes. HSV II PCR negative. WNV negative. Mental status improving since drain placed. Continue to monitor. Increase activity as tolerated. (5) Anemia: Qualifiers: Anemia type: unspecified type Qualified Code(s): D64.9 - Anemia, unspecified Code(s): D64.9 - Anemia, unspecified Status: Chronic Assessment and Plan: He had EGD on 11/01 which showed gastritis and previous gastric surgery Hemoglobin dropped to 5.2 which could be partially dilutional versus GI loss 11/09 Transfuse 2 units PRBC Continue protonix Hgb low but stable in the 7-8 range. Monitor hemoglobin. today is 7.5 (6) C. difficile diarrhea: Code(s): A04.72 - Enterocolitis due to Clostridium difficile, not specified as recurrent Status: Acute Assessment and Plan: CT abdomen pelvis reviewed Diarrhea improved. IV Flagyl stopped 11/09 Dificid completed on 11/18. Fecal containment system stopped 11/23. Documented stool output noted Monitor stool output. Resume treatment if diarrhea recurs. Completed Dificid (7) Acute kidney injury: Code(s): N17.9 - Acute kidney failure, unspecified Status: Acute Assessment and Plan: ICU: Patient presented with Acute kidney injury which improved with IV fluids RESOLVED (8) Thrombocytopenia: Code(s): D69.6 - Thrombocytopenia, unspecified Status: Acute Assessment and Plan: Thrombocytopenia related to sepsis; this has improved High platelet count at this time suggest hemoconcentration RESOLVED (9) Hyperkalemia: Code(s): E87.5 - Hyperkalemia Status: Acute Assessment and Plan: Hyperkalemia with ALEJANDRO Calcium gluconate, insulin and D50, bicarb received Lokelma in ICU IV fluid bolus RESOLVED (10) Acute respiratory failure: Code(s): J96.00 - Acute respiratory failure, unspecified whether with hypoxia or hypercapnia Status: Acute Assessment and Plan: RESOLVED fever 12/04/24 unclear etiology possible aspiration follow culture results. monitor off of ABx CT 12/05:Segmental colonic wall thickening, inflammatory change, and possible extraluminal gas at the hepatic flexure, may represent diverticulitis with microperforation, phlegmon or early abscess associated with the gallbladder process, or cholecystocolonic fistula development. will follow surgery team recs. Plan for cholangiogram next week. cholangiogram 12/10/24 :he appearance of contrast entering a loop of small bowel within the anterior most portion of the right upper quadrant may be artifactual in origin, as the patient was unable to change positions on the fluoroscopy table. Free extravasation may also demonstrate this appearance, in the appropriate clinical setting. Given that small bowel perforation would result in peritonitis and sepsis, and this is not the case in our patient, this appearance is likely artifactual rather than actual bowel perforation. No further recs from surgery DVT prophylaxis on Sq lovenox Awaiting placement Subjective Date/time seen: 12/12/24 12:33 Interval history: Comfortable at bedside awaiting placement Review of Systems Review of Systems: All systems reviewed & are unremarkable except as noted in HPI and below (Subjective) ROS unobtainable: Yes unobtainable due to endotracheal tube, unobtainable due to medical condition and unobtainable due to mental status Neurologic: Reports confusion Psychiatric: Psychiatric: Reports confusion Exam Narrative: GENERAL: Ill-appearing, protein mild nutrition, in no acute distress. Well-nourished. - EYES: EOMI. Anicteric. - HENT: Moist mucous membranes. - LUNGS: Clear to auscultation bilaterally, no wheezing, rhonchi, or rales. - CARDIOVASCULAR: Regular rate and rhythm. No murmur. No JVD. - ABDOMEN: Soft, non-tender and non-distended. No palpable masses. - EXTREMITIES: No edema. Peripheral pulses 2+. Non-tender. - NEUROLOGIC: No focal neurological deficits. CN II-XII grossly intact. - PSYCHIATRIC: Awake, Alert and oriented to place only. Appropriate mood and affect. - SKIN: No rashes or lesions. Warm. - LYMPH: No cervical lymphadenopathy. Const: General: comfortable, no acute distress, alert, awake, confusion, ill appearing, patient obtunded (intubated. Just taken off sedation.) and thin Nutritional Appearance: thin Orientation/consciousness: confusion and patient obtunded (intubated. Just taken off sedation.) Other: , frail, ill-appearing, elderly HENMT: Face/Nose/Sinus: Normal nares present Mouth: Yes moist mucous membranes and Yes dry mucous membranes Other: ngt in place Eyes: General: appearance normal, both eyes and all related structures Sclera: sclerae normal Pupils: Equal, round and reactive pupils present EOM: EOMs intact bilaterally Neck: Neck: supple Resp: Effort & Inspection: normal respiratory effort Auscultation: clear to auscultation bilaterally Cardio: Rate: regular rate Rhythm: regular rhythm Other: S1-S2 present without murmur, rub, ectopy GI: Inspection: non-distended, incision (Dry and healing well, no erythema or drainage), scaphoid, scar (Large upper abdominal midline scar as before) and other (mildly distended) Auscultation: normal bowel sounds and Hypoactive bowel sounds present Other: Jejunostomy tube clamped and dressing dry and intact, no erythema around the jejunostomy tube : General: Yes bladder normal to palpation Urinary Catheter: Urinary Catheter: patent and draining Skin: General skin exam: normal color and no rashes or lesions noted Other: Superficial bilateral buttock friction maceration noted with three small (<2-3 cm) open wounds that are superficial with a healthy appearing pink wound bed, no necrotic tissue or purulent drainage. Neuro: General: confusion and patient obtunded (intubated. Just taken off sedation.) Cranial nerves: Yes Equal, round and reactive pupils present Motor exam (neuro): 5/5 motor strength present throughout Other: Garbled speech, difficult to understand. A&O x1. Moving all extremities, however + 1 in all extremities. Left foot weaker than right. Spud Grader symmetric. Extrem: General: normal to inspection and no edema Psych: Other: Poor insight and judgment at present, pleasant. Objective Data Vital Signs Vital Signs: Vital Signs - 24 hr 12/11/24 14:00 12/11/24 20:07 12/11/24 21:28 Temperature 98.8 F 97.6 F Pulse Rate 100 96 Respiratory Rate 14 18 Blood Pressure 130/86 130/69 Pulse Oximetry 100 98 Oxygen Delivery Room Air 12/12/24 03:02 Temperature 97.8 F Pulse Rate 89 Respiratory Rate 18 Blood Pressure 122/67 Pulse Oximetry 100 Oxygen Delivery Intake/Output Intake/Output: Intake & Output 12/09/24 12/10/24 12/11/24 12/12/24 23:59 23:59 23:59 23:59 Intake Total 9121 653 5798 930 Output Total 185 757 1913 3021 Balance 330 -138 1587 -2092 Meds/Results Medications: Active Medications Generic Name Dose Route Start Last Admin Trade Name Freq PRN Reason Stop Dose Admin Acetaminophen 650 mg 11/13/24 21:07 12/03/24 21:13 Acetaminophen Elixir 325 Mg/10.15 Ml Udc FEED TUBE 650 mg Q6H PRN Administration Pain Allopurinol 100 mg 11/15/24 09:00 12/12/24 08:15 Allopurinol 100 Mg Tablet FEED TUBE 100 mg DAILY JHONY Administration Alteplase, Recombinant 2 mg 11/20/24 13:51 11/25/24 22:36 Alteplase 2 Mg Vial (Cathflo) IV PUSH 2 mg ONCE PRN Administration Line Occlusion Amlodipine Besylate 5 mg 11/22/24 09:00 11/29/24 10:35 Amlodipine Besylate 5 Mg Tablet FEED TUBE Not Given DAILY JHONY Aspirin 81 mg 11/04/24 08:00 12/12/24 08:15 Aspirin 81 Mg Chewable Tablet FEED TUBE 01/02/25 23:59 81 mg DAILY@0800 [facility] Administration Carvedilol 6.25 mg 11/22/24 09:00 11/29/24 10:35 Carvedilol 6.25 Mg Tablet FEED TUBE Not Given Q12HR JHONY Collagenase 1 applic 11/13/24 09:00 12/12/24 08:17 Collagenase Oint 30 Gm Tube TOPICAL 1 applic Q12HR JHONY Administration Dextrose 12.5 gm 10/17/24 21:26 10/30/24 05:55 Dextrose 50% 25 Gm/50 Ml Syringe IV PUSH 12.5 gm PRN PRN Administration Hypoglycemia Protocol Enoxaparin Sodium 40 mg 11/02/24 09:00 12/12/24 08:14 Enoxaparin 40 Mg/0.4 Ml Syringe SUB-Q 40 mg DAILY JHONY Administration Folic Acid 1 mg 10/24/24 09:00 12/12/24 08:15 Folic Acid 1 Mg Tablet FEED TUBE 1 mg QAM JHONY Administration Glucagon 1 mg 10/17/24 21:26 Glucagon For Inj 1 Mg Vial IM PRN PRN Hypoglycemia Protocol Glucose 15 gm 11/13/24 21:07 Glucose Oral Gel 15 Gm Of Glucse In 37.5 Gm Tube FEED TUBE PRN PRN Hypoglycemia Protocol Dextrose 1,000 mls @ 100 mls/hr 10/17/24 21:26 Dextrose 5% 1,000 Ml IVPB PRN PRN Hypoglycemia Protocol Miscellaneous Information 1 each 12/11/24 00:01 12/12/24 08:16 Rosuvastatin Needs To Be Renewed Or It Will Automatically Discontinue. XX 01/10/25 00:00 Not Given CLARIFY JHONY Saccharomyces Boulardii 250 mg 11/14/24 09:00 12/12/24 08:14 Saccharomyces Boulardii 250 Mg Capsule FEED TUBE 250 mg DAILY JHONY Administration Thiamine HCl 100 mg 10/24/24 09:00 12/12/24 08:15 Thiamine Hcl 100 Mg Tablet FEED TUBE 100 mg QAM JHONY Administration Radiology Results: ITS Impressions Face CT 10/19/24 09:39 IMPRESSION: 1. Extensive sinus disease with near complete opacification of the right maxillary sinus and dependently layering fluid in the bilateral sphenoid sinuses. Correlate clinically for acute sinusitis. 2. Dental and periodontal disease with periapical lucency surrounding the posterior most remaining right maxillary molar. Renal Ultrasound 10/19/24 09:48 IMPRESSION: No hydronephrosis or renal calculi. No parenchymal findings to suggest the presence of medical renal disease. Simple cysts within the right kidney, for which no further follow-up is needed. Brain MRI 10/24/24 14:22 IMPRESSION: 1. Age-related changes the brain. No acute intracranial process. 2. Prominent sinus disease with fluid nearly filling the right maxillary sinus and layering dependently in the bilateral sphenoid sinuses. Correlate clinically for acute sinusitis. Lumbar Puncture Fluoroscopy 10/31/24 17:34 IMPRESSION: 1. Successful fluoro-guided lumbar puncture with mildly elevated opening pressure of 23 cm water. Modified Barium Swallow 11/06/24 10:05 IMPRESSION: Nondiagnostic study as all contents either leaked or were actively expelled from the mouth. No swallows were able to be evaluated. Please correlate with speech pathologist findings and specific feeding recommendations. Abdomen X-Ray 11/08/24 07:55 Impression: NG tube in satisfactory position. Probable small bowel obstruction. Chest/Abdomen/Pelvis CT 11/08/24 09:59 IMPRESSION: CHEST: 1. Right basilar atelectasis versus pneumonia with pleural effusion. 2. No other acute cardiopulmonary pathology. ABDOMEN/PELVIS: 1. Free air is seen anteriorly around the liver with minimal fluid. 2. Significant ascites in the pelvis. Drainage tube is seen in the left side of the pelvis. 3. Cholelithiasis with thickened wall of the gallbladder. Evaluation for cholecystitis advised. 4. Slightly dilated small bowel loops in the left upper abdomen which may indicate ileus follow-up advised. 5. Right renal cysts. Upper GI Series 11/09/24 13:49 IMPRESSION: 1. Left lower quadrant jejunostomy tube in expected position with injected contrast opacifying the normal-appearing jejunum with no extraluminal leakage of contrast. Head CT 11/14/24 05:17 Impression: No intracranial hemorrhage, mass, or acute infarct. Atrophy and chronic white matter changes, as above. Abdomen Ultrasound 11/14/24 15:13 IMPRESSION: Highly suggestive cholecystitis with cholelithiasis and gallbladder sludge. Clinical correlation advised. Minimal ascites. Minimal right pleural effusion. Cholecystostomy 11/15/24 16:04 IMPRESSION: 1. Successful ultrasound-guided cholecystostomy tube placement. 2. 13 mL bile was sent for aerobic, anaerobic, and fungal cultures. 3. The catheter will be managed by Dr. Ortiz. A catheter cholangiogram may be performed not less than 48 hours after tube placement if clinically indicated to assess cystic duct patency. If cholecystectomy is not eventually performed and the infectious episode has resolved, the tube may be removed over a guidewire, preferably not less than 3 weeks after placement to allow time for a mature catheter tract to form to prevent bile leakage and peritonitis. Catheter Placement CT 11/20/24 17:00 IMPRESSION: Technically successful CT-guided 10 [place] drainage catheter placement within a (likely)perioperative infected hematoma, as detailed above. Specimen was sent for the culture evaluation. The catheter will need to be forwarded flushed (towards the patient and towards the drainage catheter) twice daily with 10 cc of normal saline. ADDENDUM: 11/22/24 1113 IMPRESSION: Technically successful CT-guided 10 [place] drainage catheter placement within a (likely)perioperative infected hematoma, as detailed above. Of note, perioperative includes periprocedural. In no way, is this a reference to any of the procedures/surgeries that this patient has undergone. Given his prolonged hospital course, this rim-enhancing fluid collection could be from any of a number of causes, and was not mentioned in any way to refer to the percutaneous jejunostomy, which (once again) is in excellent position. In addition, the percutaneous cholecystostomy tube is not transhepatic, but enters the gallbladder directly (on imaging). Chest X-Ray 12/04/24 16:22 IMPRESSION: No acute cardiopulmonary pathology. Abdomen/Pelvis CT 12/05/24 19:32 IMPRESSION: Trace right pleural effusion. Right upper extremity PICC terminates in the inferior right atrium, consider retraction. Segmental colonic wall thickening, inflammatory change, and possible extraluminal gas at the hepatic flexure, may represent diverticulitis with microperforation, phlegmon or early abscess associated with the gallbladder process, or cholecystocolonic fistula development. Increased organization and decreased overall size of the right abdominal abscess/hematoma. Cholangiogram 12/10/24 09:20 IMPRESSION: Further evaluation of CT examination dated 12/05/2024 demonstrates no air within the biliary tree or the gallbladder. Innumerable filling defects within the gallbladder consistent with stones. Extravasation of injected contrast around of the catheter, entering both a loop of anterior, right upper quadrant small bowel as well as along the caudal-most portion of the liver. ADDENDUM: 12/10/24 1006 The appearance of contrast entering a loop of small bowel within the anterior most portion of the right upper quadrant may be artifactual in origin, as the patient was unable to change positions on the fluoroscopy table. Free extravasation may also demonstrate this appearance, in the appropriate clinical setting. Given that small bowel perforation would result in peritonitis and sepsis, and this is not the case in our patient, this appearance is likely artifactual rather than actual bowel perforation. Labs Labs: Laboratory Results - last 24 hr 12/12/24 04:07 WBC 9.4 RBC 2.60 L Hgb 7.5 L Hct 24.0 L MCV 92.3 MCH 28.8 MCHC 31.3 L RDW 17.1 H Plt Count 352 MPV 10.4 Immature Gran % (Auto) 0.3 Neut % (Auto) 43.9 L Lymph % (Auto) 35.7 Blount % (Auto) 13.1 H Eos % (Auto) 6.9 H Baso % (Auto) 0.1 L Lymph # (Auto) 3.34 H Blount # (Auto) 1.2 H Eos # (Auto) 0.7 H Baso # (Auto) 0.0 Abs Immat Gran (auto) 0.03 Absolute Neuts (auto) 4.1 Absolute Nucleated RBC 0.000 Nucleated RBC % 0.0 Sodium 140 Potassium 3.6 Chloride 108 H Carbon Dioxide 22 Anion Gap 10 BUN 19 Creatinine 0.72 Estim Creat Clear Calc 74 Estimated GFR > 60 Glucose 126 H Calcium 9.3 Magnesium 1.7 Total Bilirubin 0.6 AST 44 ALT 35 Alkaline Phosphatase 151 H Total Protein 8.3 H Albumin 3.4 L Quality VTE Prophylaxis VTE prophylaxis: mechanical ordered
[2024-12-12 14:00] VITALS: BP 126/72; PULSE 86; RESP 20; TEMP 36.4; O2SAT 100
[2024-12-12 22:00] VITALS: BP 116/65; PULSE 85; RESP 18; TEMP 36.5; O2SAT 100
[2024-12-13 06:00] VITALS: BP 114/80; PULSE 84; RESP 18; TEMP 36.4; O2SAT 100
[2024-12-13] MEDS: ASPIRIN 81 MG CHEWABLE TABLET FEED TUBE (08:55)
[2024-12-13 08:56] VITALS: RESP 16; O2SAT 100
[2024-12-13] MEDS: THIAMINE HCL 100 MG TABLET FEED TUBE (08:56)
[2024-12-13] MEDS: SACCHAROMYCES BOULARDII 250 MG CAPSULE FEED TUBE (08:56)
[2024-12-13] MEDS: COLLAGENASE OINT 30 GM TUBE 1 APPLIC TOPICAL ×2 (08:56→21:03)
[2024-12-13] MEDS: ENOXAPARIN 40 MG/0.4 ML SYRINGE SUB-Q (08:56)
[2024-12-13] MEDS: FOLIC ACID 1 MG TABLET FEED TUBE (08:56)
--- NOTE | 2024-12-13 10:43 | P.PNIM_ITS ---
Progress Note: A&P Assessment and Plan (1) Shock: Code(s): R57.9 - Shock, unspecified Status: Acute (2) Cholelithiasis and cholecystitis with obstruction: Qualifiers: Cholelithiasis location: gallbladder Cholecystitis acuity: acute and chronic Qualified Code(s): K80.13 - Calculus of gallbladder with acute and chronic cholecystitis with obstruction Code(s): K80.19 - Calculus of gallbladder with other cholecystitis with obstruction Status: Acute Plan (1) Shock: Code(s): R57.9 - Shock, unspecified Status: Acute Assessment and Plan: Patient initially presented with septic shock Patient has developed new hypotension 11/08/2024. Suspect aspiration pneumonia versus UTI as patient has had Michelle for more than 2 weeks., or persistent C diff infection Vancomycin 11/14 to 11/19 Continue meropenem (11/08) Day 7 since possible source control but repeat CT showing persistent 8.7cm loculated fluid collection right abdomen. General surgery following and feels this is a hematoma and not infected. Completed antiviotics (2) Intra-abdominal abscess: Code(s): K65.1 - Peritoneal abscess Status: Ruled-out Assessment and Plan: CT 11/19 showing a rim enhancing fluid collection within the right mid to upper abdomen measuring 8.5 cm IR placed a drain 11/20 and felt to be an infected hematoma Abd Abscess Cultures 11/20 Negative Vancomycin 11/14 to 11/19. Meropenem started 11/08 and Day [address] 11/26 showing persistent 8.7cm loculated fluid collection right abdomen. Gen Surgery following and feel this was not infected hematoma. Stop abx. Ct 12/05 Segmental colonic wall thickening, inflammatory change, and possible extraluminal gas at the hepatic flexure, may represent diverticulitis with microperforation, phlegmon or early abscess associated with the gallbladder process, or cholecystocolonic fistula development. reconsulted surgery team. Plan for cholangiogram next week. (3) Cholelithiasis and cholecystitis with obstruction: Qualifiers: Cholelithiasis location: gallbladder Cholecystitis acuity: acute and chronic Qualified Code(s): K80.13 - Calculus of gallbladder with acute and chronic cholecystitis with obstruction Code(s): K80.19 - Calculus of gallbladder with other cholecystitis with obstruction Status: Acute Assessment and Plan: As above. Patient with worsening leukocytosis up to 28K with hypotension. Merop enem and vancomycin added. Ultrasound with cholecystitis now status post cholecystostomy tube placement 11/15/2024. Cholecystostomy tube will need to be irrigated as ordered. Cholangiogram through the cholecystectomy tube showed occluded cystic duct Plan for tube to remain in place on discharge. 12/09 leucocytosis resolved (4) Metabolic encephalopathy: , resolved Code(s): G93.41 - Metabolic encephalopathy Status: Acute Assessment and Plan: Patient has had Altered mental status since admission which is multifactorial Patient was evaluated by Neurology and suspected to have metabolic encephalopathy. -CT brain on presented was negative for intracranial abnormalities. Repeat CT scan 11/08 also unremarkable -MRI cannot be performed as patient was in the [place] and may have sharpnel exposure according to his daughter -10/19: Repeat CT brain did not show any acute intracranial hemorrhage or suspi cious mass effect, inflammatory sinus disease. -10/19: CT facial bones showed extensive sinus disease with near complete opacification of the right maxillary sinus and dependently layering fluid in the bilateral sphenoid sinuses. Dental and periodontal disease with periapical lucency surrounding the posterior most remaining right maxillary molar His ammonia level was normal Lumbar puncture 10/31/2024 with mildly elevated opening pressure of 23 cm water and high protein. 6 RBC/1 WBC with 100% lymphocytes. HSV II PCR negative. WNV negative. Mental status improving since drain placed. Continue to monitor. Increase activity as tolerated. (5) Anemia: Qualifiers: Anemia type: unspecified type Qualified Code(s): D64.9 - Anemia, unspecified Code(s): D64.9 - Anemia, unspecified Status: Chronic Assessment and Plan: He had EGD on 11/01 which showed gastritis and previous gastric surgery Hemoglobin dropped to 5.2 which could be partially dilutional versus GI loss 11/09 Transfuse 2 units PRBC Continue protonix Hgb low but stable in the 7-8 range. Monitor hemoglobin. today is 7.5 (6) C. difficile diarrhea: Code(s): A04.72 - Enterocolitis due to Clostridium difficile, not specified as recurrent Status: Acute Assessment and Plan: CT abdomen pelvis reviewed Diarrhea improved. IV Flagyl stopped 11/09 Dificid completed on 11/18. Fecal containment system stopped 11/23. Documented stool output noted Monitor stool output. Resume treatment if diarrhea recurs. Completed Dificid (7) Acute kidney injury: Code(s): N17.9 - Acute kidney failure, unspecified Status: Acute Assessment and Plan: ICU: Patient presented with Acute kidney injury which improved with IV fluids RESOLVED (8) Thrombocytopenia: Code(s): D69.6 - Thrombocytopenia, unspecified Status: Acute Assessment and Plan: Thrombocytopenia related to sepsis; this has improved High platelet count at this time suggest hemoconcentration RESOLVED (9) Hyperkalemia: Code(s): E87.5 - Hyperkalemia Status: Acute Assessment and Plan: Hyperkalemia with ALEJANDOR Calcium gluconate, insulin and D50, bicarb received Lokelma in ICU IV fluid bolus RESOLVED (10) Acute respiratory failure: Code(s): J96.00 - Acute respiratory failure, unspecified whether with hypoxia or hypercapnia Status: Acute Assessment and Plan: RESOLVED fever 12/04/24 unclear etiology possible aspiration follow culture results. monitor off of ABx CT 12/05:Segmental colonic wall thickening, inflammatory change, and possible extraluminal gas at the hepatic flexure, may represent diverticulitis with microperforation, phlegmon or early abscess associated with the gallbladder process, or cholecystocolonic fistula development. will follow surgery team recs. Plan for cholangiogram next week. cholangiogram 12/10/24 :he appearance of contrast entering a loop of small bowel within the anterior most portion of the right upper quadrant may be artifactual in origin, as the patient was unable to change positions on the fluoroscopy table. Free extravasation may also demonstrate this appearance, in the appropriate clinical setting. Given that small bowel perforation would result in peritonitis and sepsis, and this is not the case in our patient, this appearance is likely artifactual rather than actual bowel perforation. No further recs from surgery DVT prophylaxis on Sq lovenox Awaiting placement Subjective Date/time seen: 12/13/24 10:44 Interval history: Comfortable at bedside awaiting placement Review of Systems Review of Systems: All systems reviewed & are unremarkable except as noted in HPI and below (Subjective) ROS unobtainable: Yes unobtainable due to endotracheal tube, unobtainable due to medical condition and unobtainable due to mental status Neurologic: Reports confusion Psychiatric: Psychiatric: Reports confusion Exam Narrative: GENERAL: Ill-appearing, protein mild nutrition, in no acute distress. Well- nourished. - EYES: EOMI. Anicteric. - HENT: Moist mucous membranes. - LUNGS: Clear to auscultation bilateral ly, no wheezing, rhonchi, or rales. - CARDIOVASCULAR: Regular rate and rhyth m. No murmur. No JVD. - ABDOMEN: Soft, non-tender and non-dist ended. No palpable masses. - EXTREMITIES: No edema. Peripheral puls es 2+. Non-tender. - NEUROLOGIC: No focal neurological defi cits. CN II-XII grossly intact. - PSYCHIATRIC: Awake, Alert and oriented to place only. Appropriate mood and affect. - SKIN: No rashes or lesions. Warm. - LYMPH: No cervical lymphadenopathy. Const: General: comfortable, no acute distress, alert, awake, confusion, ill appearing, patient obtunded (intubated. Just taken off sedation.) and thin Nutritional Appearance: thin Orientation/consciousness: confusion and patient obtunded (intubated. Just taken off sedation.) Other: , frail, ill-appearing, elderly HENMT: Face/Nose/Sinus: Normal nares present Mouth: Yes moist mucous membranes and Yes dry mucous membranes Other: ngt in place Eyes: General: appearance normal, both eyes and all related structures Sclera: sclerae normal Pupils: Equal, round and reactive pupils present EOM: EOMs intact bilaterally Neck: Neck: supple Resp: Effort & Inspection: normal respiratory effort Auscultation: clear to auscultation bilaterally Cardio: Rate: regular rate Rhythm: regular rhythm Other: S1-S2 present without murmur, rub, ectopy GI: Inspection: non-distended, incision (Dry and healing well, no erythema or drainage), scaphoid, scar (Large upper abdominal midline scar as before) and other (mildly distended) Auscultation: normal bowel sounds and Hypoactive bowel sounds present Other: Jejunostomy tube clamped and dressing dry and intact, no erythema around the jejunostomy tube : General: Yes bladder normal to palpation Urinary Catheter: Urinary Catheter: patent and draining Skin: General skin exam: normal color and no rashes or lesions noted Other: Superficial bilateral buttock friction maceration noted with three small (<2-3 cm) open wounds that are superficial with a healthy appearing pink wound bed, no necrotic tissue or purulent drainage. Neuro: General: confusion and patient obtunded (intubated. Just taken off sedation.) Cranial nerves: Yes Equal, round and reactive pupils present Motor exam (neuro): 5/5 motor strength present throughout Other: Garbled speech, difficult to understand. A&O x1. Moving all extremities, however + 1 in all extremities. Left foot weaker than right. Radiology Equipment Servicer symmetric. Extrem: General: normal to inspection and no edema Psych: Other: Poor insight and judgment at present, pleasant. Objective Data Vital Signs Vital Signs: Vital Signs - 24 hr 12/12/24 14:00 12/12/24 20:00 12/12/24 22:00 Temperature 97.5 F L 97.7 F Pulse Rate 86 85 Respiratory Rate 20 18 Blood Pressure 126/72 116/65 Pulse Oximetry 100 100 Oxygen Delivery Room Air 12/13/24 06:00 Temperature 97.5 F L Pulse Rate 84 Respiratory Rate 18 Blood Pressure 114/80 Pulse Oximetry 100 Oxygen Delivery Intake/Output Intake/Output: Intake & Output 12/10/24 12/11/24 12/12/24 12/13/24 23:59 23:59 23:59 23:59 Intake Total 777 2657 1796 1036 Output Total 915 1070 4071 Balance -138 1587 -2275 1036 Meds/Results Medications: Active Medications Generic Name Dose Route Start Last Admin Trade Name Freq PRN Reason Stop Dose Admin Acetaminophen 650 mg 11/13/24 21:07 12/03/24 21:13 Acetaminophen Elixir 325 Mg/10.15 Ml Udc FEED TUBE 650 mg Q6H PRN Administration Pain Allopurinol 100 mg 11/15/24 09:00 12/13/24 08:56 Allopurinol 100 Mg Tablet FEED TUBE 100 mg DAILY JHONY Administration Alteplase, Recombinant 2 mg 11/20/24 13:51 11/25/24 22:36 Alteplase 2 Mg Vial (Cathflo) IV PUSH 2 mg ONCE PRN Administration Line Occlusion Amlodipine Besylate 5 mg 11/22/24 09:00 11/29/24 10:35 Amlodipine Besylate 5 Mg Tablet FEED TUBE Not Given DAILY JHONY Aspirin 81 mg 11/04/24 08:00 12/13/24 08:55 Aspirin 81 Mg Chewable Tablet FEED TUBE 01/02/25 23:59 81 mg DAILY@0800 JHONY Administration Carvedilol 6.25 mg 11/22/24 09:00 11/29/24 10:35 Carvedilol 6.25 Mg Tablet FEED TUBE Not Given Q12HR JHONY Collagenase 1 applic 11/13/24 09:00 12/13/24 08:56 Collagenase Oint 30 Gm Tube TOPICAL 1 applic Q12HR JHONY Administration Dextrose 12.5 gm 10/17/24 21:26 10/30/24 05:55 Dextrose 50% 25 Gm/50 Ml Syringe IV PUSH 12.5 gm PRN PRN Administration Hypoglycemia Protocol Enoxaparin Sodium 40 mg 11/02/24 09:00 12/13/24 08:56 Enoxaparin 40 Mg/0.4 Ml Syringe SUB-Q 40 mg DAILY JHONY Administration Folic Acid 1 mg 10/24/24 09:00 12/13/24 08:56 Folic Acid 1 Mg Tablet FEED TUBE 1 mg QAM JHONY Administration Glucagon 1 mg 10/17/24 21:26 Glucagon For Inj 1 Mg Vial IM PRN PRN Hypoglycemia Protocol Glucose 15 gm 11/13/24 21:07 Glucose Oral Gel 15 Gm Of Glucse In 37.5 Gm Tube FEED TUBE PRN PRN Hypoglycemia Protocol Dextrose 1,000 mls @ 100 mls/hr 10/17/24 21:26 Dextrose 5% 1,000 Ml IVPB PRN PRN Hypoglycemia Protocol Miscellaneous Information 1 each 12/13/24 00:01 Tylenol, Glucose Oral Gel Needs To Be Renewed Or It Will Automatically Discontinue. XX 01/12/25 00:00 CLARIFY JHONY Miscellaneous Information 1 each 12/13/24 09:00 Florastor Needs To Be Renewed Or It Will Automatically Discontinue. XX 01/12/25 08:59 DAILY JHONY Saccharomyces Boulardii 250 mg 11/14/24 09:00 12/13/24 08:56 Saccharomyces Boulardii 250 Mg Capsule FEED TUBE 250 mg DAILY JHONY Administration Thiamine HCl 100 mg 10/24/24 09:00 12/13/24 08:56 Thiamine Hcl 100 Mg Tablet FEED TUBE 100 mg QAM JHONY Administration Radiology Results: ITS Impressions Face CT 10/19/24 09:39 IMPRESSION: 1. Extensive sinus disease with near complete opacification of the right maxillary sinus and dependently layering fluid in the bilateral sphenoid sinuses. Correlate clinically for acute sinusitis. 2. Dental and periodontal disease with periapical lucency surrounding the posterior most remaining right maxillary molar. Renal Ultrasound 10/19/24 09:48 IMPRESSION: No hydronephrosis or renal calculi. No parenchymal findings to suggest the presence of medical renal disease. Simple cysts within the right kidney, for which no further follow-up is needed. Brain MRI 10/24/24 14:22 IMPRESSION: 1. Age-related changes the brain. No acute intracranial process. 2. Prominent sinus disease with fluid nearly filling the right maxillary sinus and layering dependently in the bilateral sphenoid sinuses. Correlate clinically for acute sinusitis. Lumbar Puncture Fluoroscopy 10/31/24 17:34 IMPRESSION: 1. Successful fluoro-guided lumbar puncture with mildly elevated opening pressure of 23 cm water. Modified Barium Swallow 11/06/24 10:05 IMPRESSION: Nondiagnostic study as all contents either leaked or were actively expelled from the mouth. No swallows were able to be evaluated. Please correlate with speech pathologist findings and specific feeding recommendations. Abdomen X-Ray 11/08/24 07:55 Impression: NG tube in satisfactory position. Probable small bowel obstruction. Chest/Abdomen/Pelvis CT 11/08/24 09:59 IMPRESSION: CHEST: 1. Right basilar atelectasis versus pneumonia with pleural effusion. 2. No other acute cardiopulmonary pathology. ABDOMEN/PELVIS: 1. Free air is seen anteriorly around the liver with minimal fluid. 2. Significant ascites in the pelvis. Drainage tube is seen in the left side of the pelvis. 3. Cholelithiasis with thickened wall of the gallbladder. Evaluation for cholecystitis advised. 4. Slightly dilated small bowel loops in the left upper abdomen which may indicate ileus follow-up advised. 5. Right renal cysts. Upper GI Series 11/09/24 13:49 IMPRESSION: 1. Left lower quadrant jejunostomy tube in expected position with injected contrast opacifying the normal-appearing jejunum with no extraluminal leakage of contrast. Head CT 11/14/24 05:17 Impression: No intracranial hemorrhage, mass, or acute infarct. Atrophy and chronic white matter changes, as above. Abdomen Ultrasound 11/14/24 15:13 IMPRESSION: Highly suggestive cholecystitis with cholelithiasis and gallbladder sludge. Clinical correlation advised. Minimal ascites. Minimal right pleural effusion. Cholecystostomy 11/15/24 16:04 IMPRESSION: 1. Successful ultrasound-guided cholecystostomy tube placement. 2. 13 mL bile was sent for aerobic, anaerobic, and fungal cultures. 3. The catheter will be managed by Dr. Ortiz. A catheter cholangiogram may be performed not less than 48 hours after tube placement if clinically indicated to assess cystic duct patency. If cholecystectomy is not eventually performed and the infectious episode has resolved, the tube may be removed over a guidewire, preferably not less than 3 weeks after placement to allow time for a mature catheter tract to form to prevent bile leakage and peritonitis. Catheter Placement CT 11/20/24 17:00 IMPRESSION: Technically successful CT-guided 10 [place] drainage catheter placement within a (likely)perioperative infected hematoma, as detailed above. Specimen was sent for the culture evaluation. The catheter will need to be forwarded flushed (towards the patient and towards the drainage catheter) twice daily with 10 cc of normal saline. ADDENDUM: 11/22/24 1113 IMPRESSION: Technically successful CT-guided 10 [place] drainage catheter placement within a (likely)perioperative infected hematoma, as detailed above. Of note, perioperative includes periprocedural. In no way, is this a reference to any of the procedures/surgeries that this patient has undergone. Given his prolonged hospital course, this rim-enhancing fluid collection could be from any of a number of causes, and was not mentioned in any way to refer to the percutaneous jejunostomy, which (once again) is in excellent position. In addition, the percutaneous cholecystostomy tube is not transhepatic, but enters the gallbladder directly (on imaging). Chest X-Ray 12/04/24 16:22 IMPRESSION: No acute cardiopulmonary pathology. Abdomen/Pelvis CT 12/05/24 19:32 IMPRESSION: Trace right pleural effusion. Right upper extremity PICC terminates in the inferior right atrium, consider retraction. Segmental colonic wall thickening, inflammatory change, and possible extraluminal gas at the hepatic flexure, may represent diverticulitis with microperforation, phlegmon or early abscess associated with the gallbladder process, or cholecystocolonic fistula development. Increased organization and decreased overall size of the right abdominal abscess/hematoma. Cholangiogram 12/10/24 09:20 IMPRESSION: Further evaluation of CT examination dated 12/05/2024 demonstrates no air within the biliary tree or the gallbladder. Innumerable filling defects within the gallbladder consistent with stones. Extravasation of injected contrast around of the catheter, entering both a loop of anterior, right upper quadrant small bowel as well as along the caudal-most portion of the liver. ADDENDUM: 12/10/24 1006 The appearance of contrast entering a loop of small bowel within the anterior most portion of the right upper quadrant may be artifactual in origin, as the patient was unable to change positions on the fluoroscopy table. Free extravasation may also demonstrate this appearance, in the appropriate clinical setting. Given that small bowel perforation would result in peritonitis and sepsis, and this is not the case in our patient, this appearance is likely artifactual rather than actual bowel perforation. Quality VTE Prophylaxis VTE prophylaxis: mechanical ordered
[2024-12-13 14:00] VITALS: BP 126/63; PULSE 90; RESP 16; TEMP 36.7; O2SAT 100
[2024-12-13] MEDS: SACCHAROMYCES BOULARDII 250 MG CAPSULE PO (16:21)
[2024-12-13 22:00] VITALS: BP 116/63; PULSE 83; RESP 18; TEMP 36.5; O2SAT 100
[2024-12-14 06:00] VITALS: BP 109/59; PULSE 85; RESP 18; TEMP 36.7; O2SAT 100
--- NOTE | 2024-12-14 09:34 | PCNFU ---
Nutrition Follow-Up Complete: Inadequate Oral Intake as related to AMS as evidenced by NPO. Meet estimated nutritional needs - Goal is being met with tube feeding Goal: Pt current nutrition is Jevity 1.5 @ goal rate 55 ml/h with 100 ml flushes q 4 h. Nutrition recommendation: No new recommendations. Continue current nutrition care plan and orders. Agree with orders Last recorded weight is 63.3 kg. Bowel Motility: +1 BM 12/14. FMS is discontinued Labs Reviewed: No labs since 12/12 Meds Noted: Insulin, folic acid, protonix Skin: No pressure injuries Additional Notes: tolerating tube feeding well per PEG. Awaiting placement. Continue to monitr will monitor weight, labs, skin, diet orders, meds every 3 days.
[2024-12-14] MEDS: ASPIRIN 81 MG CHEWABLE TABLET FEED TUBE (10:36)
[2024-12-14] MEDS: SACCHAROMYCES BOULARDII 250 MG CAPSULE PO ×3 (10:36→16:54)
[2024-12-14] MEDS: THIAMINE HCL 100 MG TABLET FEED TUBE (10:36)
[2024-12-14] MEDS: FOLIC ACID 1 MG TABLET FEED TUBE (10:36)
[2024-12-14] MEDS: COLLAGENASE OINT 30 GM TUBE 1 APPLIC TOPICAL (10:57)
[2024-12-14] MEDS: ENOXAPARIN 40 MG/0.4 ML SYRINGE SUB-Q (11:14)
--- NOTE | 2024-12-14 11:55 | PM.IMPN ---
Progress Note: A&P Assessment and Plan (1) Shock: Code(s): R57.9 - Shock, unspecified Status: Acute (2) Cholelithiasis and cholecystitis with obstruction: Qualifiers: Cholelithiasis location: gallbladder Cholecystitis acuity: acute and chronic Qualified Code(s): K80.13 - Calculus of gallbladder with acute and chronic cholecystitis with obstruction Code(s): K80.19 - Calculus of gallbladder with other cholecystitis with obstruction Status: Acute Plan (1) Shock: Code(s): R57.9 - Shock, unspecified Status: Acute Assessment and Plan: Patient initially presented with septic shock Patient has developed new hypotension 11/08/2024. Suspect aspiration pneumonia versus UTI as patient has had Michelle for more than 2 weeks., or persistent C diff infection Vancomycin 11/14 to 11/19 Continue meropenem (11/08) Day 7 since possible source control but repeat CT showing persistent 8.7cm loculated fluid collection right abdomen. General surgery following and feels this is a hematoma and not infected. Completed antiviotics (2) Intra-abdominal abscess: Code(s): K65.1 - Peritoneal abscess Status: Ruled-out Assessment and Plan: CT 11/19 showing a rim enhancing fluid collection within the right mid to upper abdomen measuring 8.5 cm IR placed a drain 11/20 and felt to be an infected hematoma Abd Abscess Cultures 11/20 Negative Vancomycin 11/14 to 11/19. Meropenem started 11/08 and Day [address] 11/26 showing persistent 8.7cm loculated fluid collection right abdomen. Gen Surgery following and feel this was not infected hematoma. Stop abx. Ct 12/05 Segmental colonic wall thickening, inflammatory change, and possible extraluminal gas at the hepatic flexure, may represent diverticulitis with microperforation, phlegmon or early abscess associated with the gallbladder process, or cholecystocolonic fistula development. reconsulted surgery team. Plan for cholangiogram next week. (3) Cholelithiasis and cholecystitis with obstruction: Qualifiers: Cholelithiasis location: gallbladder Cholecystitis acuity: acute and chronic Qualified Code(s): K80.13 - Calculus of gallbladder with acute and chronic cholecystitis with obstruction Code(s): K80.19 - Calculus of gallbladder with other cholecystitis with obstruction Status: Acute Assessment and Plan: As above. Patient with worsening leukocytosis up to 28K with hypotension. Meropenem and vancomycin added. Ultrasound with cholecystitis now status post cholecystostomy tube placement 11/15/2024. Cholecystostomy tube will need to be irrigated as ordered. Cholangiogram through the cholecystectomy tube showed occluded cystic duct Plan for tube to remain in place on discharge. 12/09 leucocytosis resolved (4) Metabolic encephalopathy: , resolved Code(s): G93.41 - Metabolic encephalopathy Status: Acute Assessment and Plan: Patient has had Altered mental status since admission which is multifactorial Patient was evaluated by Neurology and suspected to have metabolic encephalopathy. -CT brain on presented was negative for intracranial abnormalities. Repeat CT scan 11/08 also unremarkable -MRI cannot be performed as patient was in the [place] and may have sharpnel exposure according to his daughter -10/19: Repeat CT brain did not show any acute intracranial hemorrhage or suspicious mass effect, inflammatory sinus disease. -10/19: CT facial bones showed extensive sinus disease with near complete opacification of the right maxillary sinus and dependently layering fluid in the bilateral sphenoid sinuses. Dental and periodontal disease with periapical lucency surrounding the posterior most remaining right maxillary molar His ammonia level was normal Lumbar puncture 10/31/2024 with mildly elevated opening pressure of 23 cm water and high protein. 6 RBC/1 WBC with 100% lymphocytes. HSV II PCR negative. WNV negative. Mental status improving since drain placed. Continue to monitor. Increase activity as tolerated. (5) Anemia: Qualifiers: Anemia type: unspecified type Qualified Code(s): D64.9 - Anemia, unspecified Code(s): D64.9 - Anemia, unspecified Status: Chronic Assessment and Plan: He had EGD on 11/01 which showed gastritis and previous gastric surgery Hemoglobin dropped to 5.2 which could be partially dilutional versus GI loss 11/09 Transfuse 2 units PRBC Continue protonix Hgb low but stable in the 7-8 range. Monitor hemoglobin. today is 7.5 (6) C. difficile diarrhea: Code(s): A04.72 - Enterocolitis due to Clostridium difficile, not specified as recurrent Status: Acute Assessment and Plan: CT abdomen pelvis reviewed Diarrhea improved. IV Flagyl stopped 11/09 Dificid completed on 11/18. Fecal containment system stopped 11/23. Documented stool output noted Monitor stool output. Resume treatment if diarrhea recurs. Completed Dificid (7) Acute kidney injury: Code(s): N17.9 - Acute kidney failure, unspecified Status: Acute Assessment and Plan: ICU: Patient presented with Acute kidney injury which improved with IV fluids RESOLVED (8) Thrombocytopenia: Code(s): D69.6 - Thrombocytopenia, unspecified Status: Acute Assessment and Plan: Thrombocytopenia related to sepsis; this has improved High platelet count at this time suggest hemoconcentration RESOLVED (9) Hyperkalemia: Code(s): E87.5 - Hyperkalemia Status: Acute Assessment and Plan: Hyperkalemia with ALEJANDRO Calcium gluconate, insulin and D50, bicarb received Lokelma in ICU IV fluid bolus RESOLVED (10) Acute respiratory failure: Code(s): J96.00 - Acute respiratory failure, unspecified whether with hypoxia or hypercapnia Status: Acute Assessment and Plan: RESOLVED fever 12/04/24 unclear etiology possible aspiration follow culture results. monitor off of ABx CT 12/05:Segmental colonic wall thickening, inflammatory change, and possible extraluminal gas at the hepatic flexure, may represent diverticulitis with microperforation, phlegmon or early abscess associated with the gallbladder process, or cholecystocolonic fistula development. will follow surgery team recs. Plan for cholangiogram next week. cholangiogram 12/10/24 :he appearance of contrast entering a loop of small bowel within the anterior most portion of the right upper quadrant may be artifactual in origin, as the patient was unable to change positions on the fluoroscopy table. Free extravasation may also demonstrate this appearance, in the appropriate clinical setting. Given that small bowel perforation would result in peritonitis and sepsis, and this is not the case in our patient, this appearance is likely artifactual rather than actual bowel perforation. No further recs from surgery DVT prophylaxis on Sq lovenox Awaiting placement Subjective Date/time seen: 12/14/24 11:55 Interval history: Comfortable at bedside awaiting placement Review of Systems Review of Systems: All systems reviewed & are unremarkable except as noted in HPI and below (Subjective) ROS unobtainable: Yes unobtainable due to endotracheal tube, unobtainable due to medical condition and unobtainable due to mental status Neurologic: Reports confusion Psychiatric: Psychiatric: Reports confusion Exam Narrative: GENERAL: Ill-appearing, protein mild nutrition, in no acute distress. Well-nourished. - EYES: EOMI. Anicteric. - HENT: Moist mucous membranes. - LUNGS: Clear to auscultation bilaterally, no wheezing, rhonchi, or rales. - CARDIOVASCULAR: Regular rate and rhythm. No murmur. No JVD. - ABDOMEN: Soft, non-tender and non-distended. No palpable masses. - EXTREMITIES: No edema. Peripheral pulses 2+. Non-tender. - NEUROLOGIC: No focal neurological deficits. CN II-XII grossly intact. - PSYCHIATRIC: Awake, Alert and oriented to place only. Appropriate mood and affect. - SKIN: No rashes or lesions. Warm. - LYMPH: No cervical lymphadenopathy. Const: General: comfortable, no acute distress, alert, awake, confusion, ill appearing, patient obtunded (intubated. Just taken off sedation.) and thin Nutritional Appearance: thin Orientation/consciousness: confusion and patient obtunded (intubated. Just taken off sedation.) Other: , frail, ill-appearing, elderly HENMT: Face/Nose/Sinus: Normal nares present Mouth: Yes moist mucous membranes and Yes dry mucous membranes Other: ngt in place Eyes: General: appearance normal, both eyes and all related structures Sclera: sclerae normal Pupils: Equal, round and reactive pupils present EOM: EOMs intact bilaterally Neck: Neck: supple Resp: Effort & Inspection: normal respiratory effort Auscultation: clear to auscultation bilaterally Cardio: Rate: regular rate Rhythm: regular rhythm Other: S1-S2 present without murmur, rub, ectopy GI: Inspection: non-distended, incision (Dry and healing well, no erythema or drainage), scaphoid, scar (Large upper abdominal midline scar as before) and other (mildly distended) Auscultation: normal bowel sounds and Hypoactive bowel sounds present Other: Jejunostomy tube clamped and dressing dry and intact, no erythema around the jejunostomy tube : General: Yes bladder normal to palpation Urinary Catheter: Urinary Catheter: patent and draining Skin: General skin exam: normal color and no rashes or lesions noted Other: Superficial bilateral buttock friction maceration noted with three small (<2-3 cm) open wounds that are superficial with a healthy appearing pink wound bed, no necrotic tissue or purulent drainage. Neuro: General: confusion and patient obtunded (intubated. Just taken off sedation.) Cranial nerves: Yes Equal, round and reactive pupils present Motor exam (neuro): 5/5 motor strength present throughout Other: Garbled speech, difficult to understand. A&O x1. Moving all extremities, however + 1 in all extremities. Left foot weaker than right. 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 Extrem: General: normal to inspection and no edema Psych: Other: Poor insight and judgment at present, pleasant. Objective Data Vital Signs Vital Signs: Vital Signs - 24 hr 12/13/24 14:00 12/13/24 20:00 12/13/24 22:00 Temperature 98.1 F 97.7 F Pulse Rate 90 83 Respiratory Rate 16 18 Blood Pressure 126/63 116/63 Pulse Oximetry 100 100 Oxygen Delivery Room Air 12/14/24 06:00 Temperature 98.0 F Pulse Rate 85 Respiratory Rate 18 Blood Pressure 109/59 L Pulse Oximetry 100 Oxygen Delivery Intake/Output Intake/Output: Intake & Output 12/11/24 12/12/24 12/13/24 12/14/24 23:59 23:59 23:59 23:59 Intake Total 2657 1796 2055 1036 Output Total 1070 4071 550 350 Balance 1587 -2275 1505 686 Meds/Results Medications: Active Medications Generic Name Dose Route Start Last Admin Trade Name Freq PRN Reason Stop Dose Admin Allopurinol 100 mg 11/15/24 09:00 12/14/24 10:36 Allopurinol 100 Mg Tablet FEED TUBE 100 mg DAILY [facility] Administration Alteplase, Recombinant 2 mg 11/20/24 13:51 11/25/24 22:36 Alteplase 2 Mg Vial (Cathflo) IV PUSH 2 mg ONCE PRN Administration Line Occlusion Amlodipine Besylate 5 mg 11/22/24 09:00 11/29/24 10:35 Amlodipine Besylate 5 Mg Tablet FEED TUBE Not Given DAILY [facility] Aspirin 81 mg 11/04/24 08:00 12/14/24 10:36 Aspirin 81 Mg Chewable Tablet FEED TUBE 01/02/25 23:59 81 mg DAILY@0800 [facility] Administration Carvedilol 6.25 mg 11/22/24 09:00 11/29/24 10:35 Carvedilol 6.25 Mg Tablet FEED TUBE Not Given Q12HR [facility] Collagenase 1 applic 11/13/24 09:00 12/14/24 10:57 Collagenase Oint 30 Gm Tube TOPICAL 1 applic Q12HR [facility] Administration Dextrose 12.5 gm 10/17/24 21:26 10/30/24 05:55 Dextrose 50% 25 Gm/50 Ml Syringe IV PUSH 12.5 gm PRN PRN Administration Hypoglycemia Protocol Enoxaparin Sodium 40 mg 11/02/24 09:00 12/14/24 11:14 Enoxaparin 40 Mg/0.4 Ml Syringe SUB-Q 40 mg DAILY [facility] Administration Folic Acid 1 mg 10/24/24 09:00 12/14/24 10:36 Folic Acid 1 Mg Tablet FEED TUBE 1 mg QAM [facility] Administration Glucagon 1 mg 10/17/24 21:26 Glucagon For Inj 1 Mg Vial IM PRN PRN Hypoglycemia Protocol Dextrose 1,000 mls @ 100 mls/hr 10/17/24 21:26 Dextrose 5% 1,000 Ml IVPB PRN PRN Hypoglycemia Protocol Miscellaneous Information 1 each 12/13/24 00:01 12/13/24 16:19 Tylenol, Glucose Oral Gel Needs To Be Renewed Or It Will Automatically Discontinue. XX 01/12/25 00:00 Not Given CLARIFY [facility] Miscellaneous Information 1 each 12/13/24 09:00 12/13/24 16:20 Florastor Needs To Be Renewed Or It Will Automatically Discontinue. XX 01/12/25 08:59 Not Given DAILY [facility] Miscellaneous Information 1 each 12/14/24 00:01 Please Renew Allopurinol. Per [employer] Procedure, It Will Discontinue If Not Renewed XX 01/13/25 00:00 CLARIFY J[facility]ON[facility] Saccharomyces Boulardii 250 mg 12/13/24 17:00 12/14/24 10:36 Saccharomyces Boulardii 250 Mg Capsule PO 250 mg TID [facility] Administration Thiamine HCl 100 mg 10/24/24 09:00 12/14/24 10:36 Thiamine Hcl 100 Mg Tablet FEED TUBE 100 mg QAM [facility] Administration Radiology Results: ITS Impressions Face CT 10/19/24 09:39 IMPRESSION: 1. Extensive sinus disease with near complete opacification of the right maxillary sinus and dependently layering fluid in the bilateral sphenoid sinuses. Correlate clinically for acute sinusitis. 2. Dental and periodontal disease with periapical lucency surrounding the posterior most remaining right maxillary molar. Renal Ultrasound 10/19/24 09:48 IMPRESSION: No hydronephrosis or renal calculi. No parenchymal findings to suggest the presence of medical renal disease. Simple cysts within the right kidney, for which no further follow-up is needed. Brain MRI 10/24/24 14:22 IMPRESSION: 1. Age-related changes the brain. No acute intracranial process. 2. Prominent sinus disease with fluid nearly filling the right maxillary sinus and layering dependently in the bilateral sphenoid sinuses. Correlate clinically for acute sinusitis. Lumbar Puncture Fluoroscopy 10/31/24 17:34 IMPRESSION: 1. Successful fluoro-guided lumbar puncture with mildly elevated opening pressure of 23 cm water. Modified Barium Swallow 11/06/24 10:05 IMPRESSION: Nondiagnostic study as all contents either leaked or were actively expelled from the mouth. No swallows were able to be evaluated. Please correlate with speech pathologist findings and specific feeding recommendations. Abdomen X-Ray 11/08/24 07:55 Impression: NG tube in satisfactory position. Probable small bowel obstruction. Chest/Abdomen/Pelvis CT 11/08/24 09:59 IMPRESSION: CHEST: 1. Right basilar atelectasis versus pneumonia with pleural effusion. 2. No other acute cardiopulmonary pathology. ABDOMEN/PELVIS: 1. Free air is seen anteriorly around the liver with minimal fluid. 2. Significant ascites in the pelvis. Drainage tube is seen in the left side of the pelvis. 3. Cholelithiasis with thickened wall of the gallbladder. Evaluation for cholecystitis advised. 4. Slightly dilated small bowel loops in the left upper abdomen which may indicate ileus follow-up advised. 5. Right renal cysts. Upper GI Series 11/09/24 13:49 IMPRESSION: 1. Left lower quadrant jejunostomy tube in expected position with injected contrast opacifying the normal-appearing jejunum with no extraluminal leakage of contrast. Head CT 11/14/24 05:17 Impression: No intracranial hemorrhage, mass, or acute infarct. Atrophy and chronic white matter changes, as above. Abdomen Ultrasound 11/14/24 15:13 IMPRESSION: Highly suggestive cholecystitis with cholelithiasis and gallbladder sludge. Clinical correlation advised. Minimal ascites. Minimal right pleural effusion. Cholecystostomy 11/15/24 16:04 IMPRESSION: 1. Successful ultrasound-guided cholecystostomy tube placement. 2. 13 mL bile was sent for aerobic, anaerobic, and fungal cultures. 3. The catheter will be managed by Dr. Ortiz. A catheter cholangiogram may be performed not less than 48 hours after tube placement if clinically indicated to assess cystic duct patency. If cholecystectomy is not eventually performed and the infectious episode has resolved, the tube may be removed over a guidewire, preferably not less than 3 weeks after placement to allow time for a mature catheter tract to form to prevent bile leakage and peritonitis. Catheter Placement CT 11/20/24 17:00 IMPRESSION: Technically successful CT-guided 10 Estonian drainage catheter placement within a (likely)perioperative infected hematoma, as detailed above. Specimen was sent for the culture evaluation. The catheter will need to be forwarded flushed (towards the patient and towards the drainage catheter) twice daily with 10 cc of normal saline. ADDENDUM: 11/22/24 1113 IMPRESSION: Technically successful CT-guided 10 Estonian drainage catheter placement within a (likely)perioperative infected hematoma, as detailed above. Of note, perioperative includes periprocedural. In no way, is this a reference to any of the procedures/surgeries that this patient has undergone. Given his prolonged hospital course, this rim-enhancing fluid collection could be from any of a number of causes, and was not mentioned in any way to refer to the percutaneous jejunostomy, which (once again) is in excellent position. In addition, the percutaneous cholecystostomy tube is not transhepatic, but enters the gallbladder directly (on imaging). Chest X-Ray 12/04/24 16:22 IMPRESSION: No acute cardiopulmonary pathology. Abdomen/Pelvis CT 12/05/24 19:32 IMPRESSION: Trace right pleural effusion. Right upper extremity PICC terminates in the inferior right atrium, consider retraction. Segmental colonic wall thickening, inflammatory change, and possible extraluminal gas at the hepatic flexure, may represent diverticulitis with microperforation, phlegmon or early abscess associated with the gallbladder process, or cholecystocolonic fistula development. Increased organization and decreased overall size of the right abdominal abscess/hematoma. Cholangiogram 12/10/24 09:20 IMPRESSION: Further evaluation of CT examination dated 12/05/2024 demonstrates no air within the biliary tree or the gallbladder. Innumerable filling defects within the gallbladder consistent with stones. Extravasation of injected contrast around of the catheter, entering both a loop of anterior, right upper quadrant small bowel as well as along the caudal-most portion of the liver. ADDENDUM: 12/10/24 1006 The appearance of contrast entering a loop of small bowel within the anterior most portion of the right upper quadrant may be artifactual in origin, as the patient was unable to change positions on the fluoroscopy table. Free extravasation may also demonstrate this appearance, in the appropriate clinical setting. Given that small bowel perforation would result in peritonitis and sepsis, and this is not the case in our patient, this appearance is likely artifactual rather than actual bowel perforation. Quality VTE Prophylaxis VTE prophylaxis: mechanical ordered
[2024-12-14 14:00] VITALS: BP 111/17; PULSE 83; RESP 18; TEMP 36.6; O2SAT 100
--- NOTE | 2024-12-17 09:35 | P.DS_ITS ---
DS: Admitting Diagnosis Discharge Date 12/14/24 Admitting Diagnosis AMS, Hypotension, Fall DS: Discharge Diagnosis Discharge Diagnosis (1) Shock: Code(s): R57.9 - Shock, unspecified Status: Acute (2) Acute kidney injury: Code(s): N17.9 - Acute kidney failure, unspecified Status: Acute DS: Summary Hospital Course Hospital Course: Initial Presentation:?The patient was brought in by EMS after being found face down at the bottom of stairs, presenting with altered mental status, hypotension, and a fall. Initial workup revealed anemia, thrombocytopenia, acute kidney injury, and rhabdomyolysis. [place] Interventions and Findings: * Shock:?Initially presented with septic shock, resolved with IV fluids and vasopressors. * Cholelithiasis and Cholecystitis:?Managed with cholecystostomy tube placement due to poor surgical candidacy. Cholangiogram showed occluded cystic duct. * Metabolic Encephalopathy:?Multifactorial, related to alcohol use, rhabdomyolysis, and sinusitis. Improved with supportive care. * Anemia and Thrombocytopenia:?Managed with blood transfusions and monitoring. Anemia likely secondary to renal insufficiency. Thrombocytopenia resolved * C. difficile Diarrhea:?Treated with Dificid, resolved. * Acute Kidney Injury:?Resolved with fluid resuscitation. * Hyperkalemia and Acute Respiratory Failure:?Both conditions resolved during hospitalization. * Intra-abdominal Hematoma:?Managed conservatively with drainage; no infection noted. * Alcohol Abuse:?Addressed with supportive care and monitoring. Discharge Plan: * Medications:?Continue current medications, including Protonix for ulcer prophylaxis and supplements for anemia. * Follow-up:?No surgical follow-up required unless issues arise with the cholecystostomy or jejunostomy tube. * Placement:?Awaiting acceptance for SNF placement through the [place]. * Diet:?Continue tube feedings as tolerated. * Activity:?Increase as tolerated. Condition at Discharge:?The patient is stable for discharge to a rehabilitation facility. He remains comfortable and is tolerating tube feedings well. The cholecystostomy tube will remain in place, and no further surgical intervention is planned at this time. F/u with PCP in 3 -5 days. Time Spent with Patient Time attestation: Total time spent providing and/or coordinating discharge services: DS: Data Data Completed and Pending Completed studies during hospitalization: Pending at discharge 10/29/24 11:44 Cytology [PTH] Routine Discharge Plan Discharge Attending physician on discharge: Reyna Lorenzana Consulting providers: Edna Levine; Luis F Weston; Linda Lomeli; Samara Gonzalez; Hussein Newman; Mayur Pate; Fernando Martinez; Barby Joy; Tony Ortiz; Chapis Lim; Kylie Beebe; Nohemi Abbasi; Edgar Aguilar; Ivan [place]; Bailey Mcnally; Nancy Salomon; Bethany Garcia; Oren Bojorquez; Jas Greer; Elliot Montero; Carlos Manuel Juan; William Nuñez; Isaac Calix; Kyree Pandya; Montse Wong; Malcolm Masters; Floyd St; Valerio Ingram Discharging Clinician: Reyna Lorenzana Anticipated Discharge Date/Time: 12/14/24 16:22 Patient Disposition: Inpatient Rehab Facility Activity: as tolerated Diet: as tolerated Discharge Instructions: Flush J tube with 100cc of tap water every 4 hours around the clock. Flush the cholecystotomy tube antegrade and retrograde with 10cc of NS twice a day. No surgical f/u needed unless problems with the J tube or Cholecystostomy tube. Patient Instructions: Rhabdomyolysis (DC), Encephalopathy (DC) Patient Language: Greenlandic Stand Alone Forms: General Discharge Information Follow-up/Referrals: Luis F Weston MD [Physician] - (F/u with Oncology as instructed ) Edna Levine MD [Physician] - (F/u with neurology as instructed ) DOUGLAS, [Primary Care Provider] - (F/u with PCp in 3-5 days ) Discharge Medications: New thiamine HCl (vitamin B1) [Vitamin B-1] 100 mg Tablet 100 mg feeding tube QAM 30 Days Qty: 30 0RF folic acid 1 mg Tablet 1 mg feeding tube QAM 30 Days Qty: 30 0RF Continued allopurinol 100 mg tablet 100 mg PO DAILY amlodipine 10 mg tablet 10 mg PO DAILY carvedilol 12.5 mg tablet 12.5 mg PO BID rosuvastatin 10 mg tablet 10 mg PO DAILY aspirin 81 mg tablet,delayed release (DR/EC) 81 mg PO DAILY Date of admission: 10/17/24 15:58 Primary Care Provider: DOUGLAS, Admitting Provider: Tevin Dickerson Attending physician on admission: Reyna Lorenzana Condition: Improved
== END 2024-12-14 18:57 | DRG 557 ==
LOC: ANHED 13:57 → ANHICU 14:58 → ANHIMU 10-20 18:55 → ANH2MED 10-24 16:21 → ANHICU 11-08 07:15 → ANH3MEDSUR 11-13 15:57 → ANHIMU 11-14 09:24 → ANH2MED 11-17 06:23
PROVIDERS: General Practice; Hospitalist; Internal Medicine; Internal Medicine Gastroenterology; Internal Medicine Hematology & Oncology; Internal Medicine Nephrology; Nurse Practitioner Gerontology; Psychiatry & Neurology Neurology; Radiology Diagnostic Radiology; Student in an Organized Health Care Education/Training Program; Surgery; Admitting Provider Family Medicine; Emergency Provider Emergency Medicine; Visit Provider Internal Medicine
PROC: 0DH63UZ Insertion of Feeding Device into Stomach, Percutaneous Approach (ICD-10-PCS; CPT 43246; principal; 2024-11-01 15:15)
PROC: 0DHA0UZ Insertion of Feeding Device into Jejunum, Open Approach (ICD-10-PCS; CPT 49441; principal; 2024-11-07 15:00)
DX: M62.82 Rhabdomyolysis (principal); A41.9 Sepsis, unspecified organism; R57.1 Hypovolemic shock; G93.41 Metabolic encephalopathy; J96.01 Acute respiratory failure with hypoxia; R65.21 Severe sepsis with septic shock; N17.9 Acute kidney failure, unspecified; E87.0 Hyperosmolality and hypernatremia; A04.72 Enterocolitis due to Clostridium difficile, not specified as recurrent; E87.1 Hypo-osmolality and hyponatremia; F05 Delirium due to known physiological condition; K91.870 Postprocedural hematoma of a digestive system organ or structure following a digestive system procedure; K80.13 Calculus of gallbladder with acute and chronic cholecystitis with obstruction; I95.9 Hypotension, unspecified; E87.6 Hypokalemia; R13.10 Dysphagia, unspecified; K29.30 Chronic superficial gastritis without bleeding; W10.8XXA Fall (on) (from) other stairs and steps, initial encounter; E86.0 Dehydration; J32.8 Other chronic sinusitis; D64.9 Anemia, unspecified; D69.6 Thrombocytopenia, unspecified; I10 Essential (primary) hypertension; M10.9 Gout, unspecified; E78.5 Hyperlipidemia, unspecified; Z20.822 Contact with and (suspected) exposure to COVID-19; Z87.891 Personal history of nicotine dependence; F10.20 Alcohol dependence, uncomplicated; N28.1 Cyst of kidney, acquired
CPT/HCPCS: 31500; 36415; 36430; 36556; 36569; 36600; 43246; 47490; 47531; 62328; 70450; 70486; 70551; 71045; 71250; 71260; 74176; 74177; 74230; 74240; 75989; 76705; 76775; 80048; 80053; 80061; 80069; 80076; 80202; 80307; 81001; 82077; 82140; 82234; 82274; 82375; 82436; 82550; 82565; 82570; 82607; 82728; 82746; 82805; 82945; 82948; 83050; 83540; 83550; 83605; 83615; 83690; 83735; 83880; 84100; 84145; 84157; 84238; 84295; 84300; 84443; 84484; 85014; 85018; 85025; 85027; 85055; 85610; 85730; 85999; 86022; 86023; 86140; 86403; 86617; 86788; 86850; 86880; 86900; 86901; 86923; 87015; 87040; 87070; 87075; 87102; 87116; 87205; 87206; 87493; 87529; 87637; 87641; 87798; 88108; 89051; 92507; 92523; 92526; 92610; 92611; 93005; 93306; 94002; 94003; 94640; 95816; 96361; 96365; 96366; 96367; 96368; 96375; 97110; 97112; 97161; 97163; 97164; 97167; 97530; 97535; 99285; A9270; C1729; C1751; G0378; J0456; J0457; J0612; J0613; J0690; J0692; J0696; J1650; J1815; J1836; J1938; J2003; J2185; J2250; J2371; J2470; J2704; J2997; J3010; J3370; J3411; J3475; J3480; J7030; J7040; J7042; J7050; J7070; J7120; P9016; P9034; P9047; Q4081; Q9966; Q9967